=== PATIENT | male | born 1940 | race Caucasian/White ===

== ENCOUNTER 2023-05-20 09:00 | Outpatient (OUT) | payer MEDICARE, OTHER, SELFPAY ==
--- NOTE | 2023-05-20 10:16 | CA_ITS ---
Patient Name Site Name MISSY SALGADO [facility] Account No Medical Record Number Age Sex Date Time [id number] [facility], [place]:[id number] M 05/20/2023 09:17 At the Request Of THI KAT ECHOCARDIOGRAM REPORT PROCEDURE: CA ECHO DOPPLER COMPLETE INDICATIONS: Cardiotoxicity, Multiple myeloma, abnormal EKG COMPARISON: None. DESCRIPTION: COMPLETE ECHOCARDIOGRAM Real-time transthoracic echocardiography with 2D, M-mode, spectral and color flow Doppler performed. QUALITY: Technical quality was good. LEFT VENTRICLE: Normal chamber size. Mild concentric left ventricular hypertrophy. Global left ventricular systolic function is normal. LV EF: Estimated left ventricular ejection fraction is 55-60% DIASTOLIC: Normal diastolic function. ATRIAL SEPTUM: LEFT ATRIUM: Normal chamber size. RIGHT ATRIUM: Normal chamber size. RIGHT VENTRICLE: Normal chamber size. Normal right ventricular systolic function. TRICUSPID VALVE: Normal mobility and thickness. No stenosis with mild regurgitation. No evidence of pulmonary hypertension. RVSP 32 mmHg MITRAL VALVE: Normal mobility and thickness. No evidence of mitral valve stenosis. There is no mitral annular calcification. Trivial mitral regurgitation. AORTIC VALVE: Normal trileaflet appearance. No visible sclerosis. Normal leaflet mobility. No evidence of aortic valve stenosis. No aortic regurgitation. AORTIC ROOT: Normal diameter and appearance. PULMONIC VALVE: Normal thickness and mobility. No stenosis. Trivial regurgitation. PERICARDIUM: No evidence of pericardial effusion. IVC: Collapses with inspirations. Normal size. PLEURA: CONCLUSION: 1. Mild concentric left ventricular hypertrophy. Normal systolic function. LVEF is 55 to 60%. 2. Normal right ventricular size and systolic function. 3. Normal diastolic function. 4. No significant valvular dysfunction. 5. Normal right-sided pressures. Adult Echocardiography Procedure Report Left Ventricle LVEDD (3.7 - 5.6 cm): 4.32 cm LVESD (2.2 - 4.0 cm): 3.08 cm LVIVS thickness (0.6 - 1.2 cm): 1.37 cm LVPW thickness (0.5 - 1.0 cm): 1.23 cm e': 0.09 m/s E - e': 6.46 LVOT Max Gradient: 1.35 mm[Hg] LVOT Area (cm2): 0.58 m/s Peak Velocity (LVOT): 0.58 m/s Mean Velocity (LVOT): 0.45 m/s LVOT Diameter 2.15 cm Left Ventricular Ejection Fraction: 55-60 % Left Atrium LA Volume Index (2D A2C): 17.03 ml/m2 Left Atrium Systolic Dimension: 3.18 cm Mitral Valve MV E to A Ratio: 0.78 Mitral Valve A-Wave Peak Velocity: 0.75 m/s Mitral Valve E-Wave Peak Velocity: 0.58 m/s Right Ventricle RV Internal Diastolic Dimension: 3.18 cm Aorta AO Root Diam: 3.49 cm Ascending Ao Diam: 3.35 cm Aortic Valve AoV Area (Peak Pal): 2.40 cm2, 2.40 cm2 AoV Area (VTI): 2.14 cm2, 2.14 cm2 Peak Velocity(Antegrade Flow): 0.88 m/s Peak Gradient(Antegrade Flow): 3.08 mm[Hg] Mean Velocity(Antegrade Flow): 0.65 m/s Mean Gradient(Antegrade Flow): 1.91 mm[Hg] Velocity Time Integral: 19.64 cm Tricuspid Valve Peak Velocity (Regurgitant Flow): 2.52 m/s, 2.70 m/s, 2.33 m/s Pulmonic Valve Mean Gradient: 2.01 mm[Hg] Mean Velocity: 0.65 m/s Peak Velocity: 1.01 m/s, 1.19 m/s Peak Gradient: 4.10 mm[Hg], 5.68 mm[Hg] Right Atrium Right Atrium Systolic Pressure: 30.44 ml, 30.44 ml Dictated by: Skip Bautista M.D. on 05/22/2023 at 18:49 Approved by: Skip Bautista M.D. on 05/22/2023 at 18:53
== END 2023-05-20 09:01 | disposition home or self-care (01) ==
LOC: CARD 09:00
PROVIDERS: PCP Family Medicine; Visit Provider Physician Assistant Medical
DX: C90.00 Multiple myeloma not having achieved remission (principal); N18.31 Chronic kidney disease, stage 3a; R94.31 Abnormal electrocardiogram [ECG] [EKG]
CPT/HCPCS: 93306; 93356

== ENCOUNTER 2024-04-11 08:06 | Outpatient (OUT) | payer MEDICARE, OTHER, SELFPAY ==
--- OUTSIDE RECORDS SUMMARY | 2024-04-11 08:20 | XMS_ITS | CCD ---
Author Organization [facility] Care Team Providers Care Platform Architect Name Role Phone Alexei Guzmán Primary Care Provider [phone] Unavailable Primary Care Provider UnavailAlexei Arizmendi Primary Care Provider [phone] Unavailable Primary Care Provider Unavailwalt COMER, DR LUIS FELIPE Whitamn Consulting Unavailable DR ALEXEI GUZMÁN Primary Care Unavailable CAMACHO FLORENCE Attending Unavailable CAMACHO FLORENCE Admitting Unavailable CAMACHO FLORENCE Consulting Unavailable Alexei Guzmán MD Primary Care Provider Alexei Guzmán MD Primary Care Provider [phone] ALEXEI GUZMÁN Referring Unavailable ALEXEI GUZMÁN Primary Care Unavailable RAQUEL GUNN Attending Unavailable Alexei Guzmán MD Primary Care Provider Favio Chaidez Unavailable Allie Solares MD Unavailable Favio Chaidez Unavailable Alexei Guzmán MD Primary Care Provider Adair Noonan Primary Care Provider Alexei Guzmán MD Primary Care Provider Allie Solares MD Unavailable Nikos Carmona Unavailable Alexei Guzmán MD Primary Care Provider Nikos Carmona Unavailable Adair Noonan Primary Care Provider Alexei Guzmán MD Primary Care Provider Allie Solares MD Unavailable Nikos Carmona MD Unavailable Favio Chaidez Unavailable Shaista, Adair Primary Care Provider Allie Solares MD Unavailable Shaista, Adair Primary Care Provider KABOUR, AMEER Referring Unavailable SHAISTA, ADAIR Primary Care Unavailable KABOUR, AMEER Referring Unavailable SHAISTA, ADAIR Primary Care Unavailable LONDON JOSEFINA Consulting Unavailable ZLATOPOLSKY, MAXIM Admitting Unavailable MODESTAЮЛИЯ JOY Attending Unavailable SHAISTA, ADAIR Primary Care Unavailable KAYODE FARRIS Consulting Unavailable WONG, LISETTE R Consulting Unavailable MIGDALIA, MOHAMMED S Consulting Unavailable AL-ELVIS, ADNAN R Consulting Unavailable KABOUR, AMEER Referring Unavailable SHAISTA, ADAIR Primary Care Unavailable KABOUR, AMEER Admitting Unavailable KACHEPE, AMEER Attending Unavailable Ko LÓPEZ, Nikos Sutton Unavailable Miles PRINGLE, Kanika Perez Unavailable David Molina MD Unavailable Moraima ALAMO, Thi Vaughan Unavailable MD Otto Do Attending Provider [phone] Shaista, DO Borrero R Primary Care Provider OTTO LORENZANA Attending Unavailable DAVID MOLINA Referring Unavailable OTTO LORENZANA Attending Unavailable ALEXEI GUZMÁN Referring Unavailable Shaista, Adair Primary Care Provider MD Otto Do Attending Provider [phone] Shaista, DO Adair R Primary Care Provider MD Skip Ocasio Attending Provider Alexei Guzmán MD Primary Care Provider [phone] Abiodun Nugent MD Attending Unavaila bunny Nazario PA-C, Trevor Nelson Referring Cole Guzmán MD, Alexei Devries Primary Care Mary Guzmán MD, Alexei Devries Primary Care Unava omid Nugent MD, Abiodun Prieto Attending Unavaila bunny Nazario PA-C, Trevor Nelson Referring Unav ailable Jovanna LÓPEZ, Abiodun Prieto Attending Unavaila bunny Nazario PA-C, Trevor Nelson Referring Unav ailable Arielle LÓPEZ, Alexei Devries Primary Care Unava ilable Negrita LÓPEZ, David Unavailable [phone] Jeff LÓPEZ, Nelli Unavailable Shorty Huston Jr Attending Unavailable Shorty Huston Jr Referring Unavailable Shaista DO, Adair Primary Care Provider GUZMÁN, ALEXEI E Primary Care Unavailable JACQUELINE LINDA E Attending Unavailable ESTHER POTTER Admitting Unavailable MARCI ROSSI Attending Unavailable MARCI ROSSI Referring Unavailable GUZMÁN, ALEXEI E Primary Care Unavailable GUZMÁN, ALEXEI E Primary Care Unavailable LEONIE DARDEN Attending Unavailable ROSIO, PAUL Attending Unavailable AVELAR, PAUL Referring Unavailable GUZMÁN, ALEXEI E Primary Care Unavailable AVELAR, PAUL Attending Unavailable AVELAR, PAUL Referring Unavailable GUZMÁN, ALEXEI E Primary Care Unavailable AVELAR, PAUL Attending Unavailable AVELAR, PAUL Referring Unavailable GUZMÁN, ALEXEI E Primary Care Unavailable ROSIO, PAUL Attending Unavailable AVELAR, PAUL Referring Unavailable GUZMÁN, ALEXEI E Primary Care Unavailable GUZMÁN, ALEXEI E Primary Care Unavailable CHETIGIST JACQUELINE E Attending Unavailable JACQUELINE LINDA Attending Unavailable ALEXEI JACQUELINE E Referring Unavailable GUZMÁN, ALEXEI E Primary Care Unavailable GUZMÁN, ALEXEI E Primary Care Unavailable BEN REN Attending Unavailable KAYODE CHATMAN Consulting Unavailable ABIODUN MORRISON Admitting Unavailable CARDIOLOGY, [facility] PH[facility]IAN Consulting Unavailable MIGDALIA, LUIS ENRIQUE Consulting Unavailable KOKO, KAYLEEN F Consulting Unavailable GUZMÁN, ALEXEI E Referring Unavailable GUZMÁN, ALEXEI E Primary Care Unavailable Shaista, DO Adair R Primary Care Provider MD Luis Ramon Admit Provider MD Luis Ramon Attending Provider [phone] PINO Drake Other Provider Unavailable PINO Glass Other Provider Unavailable PINO Mondragon Other Provider Unavailable PINO Whaley Other Provider Unavailable PINO Catherine Other Provider Unavailable MD Maximiliano Rhodes Other Provider DO Abebe Hoang Other Provider MD David Celeste Other Provider DO [place] Other Provider MD Rodolfo Galeano Other Provider MD Anais Zurita Other Provider MD Candido Estevez Other Provider Unavailable ORIANA Guerrero Other Provider MD Melani Chu Other Provider [phone] MD Sanjiv Galo Other Provider MD Robert Branes Other Provider MD Amy Boogie Other Provider DO Elliot Purvis Other Provider [phone] MD Ethel Malin Other Provider MD Bobby Michael Other Provider MERRY Vazquez-Lexis Keen Other Provider ORIANA Lux M Other Provider Unavailable MD Arcenio Nguyen Other Provider MD Mynor Hector Other Provider MD Geovany Stockton Other Provider MD Funmilayo Fernando Other Provider Unavailable MD Enmanuel Bhatia Other Provider DO Maggi Blankenship Other Provider DO Mata Millan Other Provider ORIANA Ardon Other Provider DO Ernesto Echols Other Provider [phone] MD George Rossi Other Provider ORIANA Massey Other Provider ORIANA Mckinney Other Provider [phone] MD Clementina Ch Other Provider MD William Hough Other Provider WrightDO Murray T Other Provider DO Jade Chin Other Provider MD Jose Stockton Other Provider MD Gold Brannon Other Provider ORIANA Alberts Other Provider MD David Rodriguez Other Provider MD Vj Nichols Other Provider PINO Malcolm Other Provider Unavailable Otto Do Admitting Unavailable Otto Do Attending Unavailable Shaista, Adair Burnett Primary Care Unavailable Skip Ocasio Admitting Unavai labagus Ocasio, Skip Hartley Attending Unavai lable Shaista, Adair R Primary Care Unavailable Shaista, Adair R Primary Care Unavailable Luis Raomn Attending Unavailable Luis Ramon Admitting Unavailable Luis Ramon Admitting Unavailable Luis Ramon Attending Unavailable Shaista, Adair R Primary Care Unavailable Suzan Drake Consulting Unavailable Laura Glass Consulting Unavailable Densbenny, Sydney Consulting Unavailable Katey Whaley Consulting Unavailable Carolynn Catherine Consulting Unavailable Maximiliano Rhodes Consulting Unavailable Abebe Hoang Consulting Unavailable Booker, David Consulting Unavailable [place] Consulting Unavailabl edwin Waleska, Rodolfo Consulting Unavailable Semaskiene, Anais Consulting Unavailable Herb, Candido Consulting Unavailable Jessica Guerrero Consulting UnavailMelani Salcedo Consulting Unavailable Sanjiv Galo Consulting Unavailable Robert Barnes Consulting Unavailable Amy Boogie Consulting Unavailable Elliot Purvis Consulting Unavailable Ethel Malin Consulting Unavailable Bobby Michael Consulting Unavailable Kaur Vazquez Consulting Unavailable Sherif Lux Consulting Unavailable Doamekpor, Arcenio E Consulting Unavailab le Krunal, Mynor Consulting Unavailable Stockton, Geovany Consulting Unavailable Almoselli, Khaled Consulting Unavailable Jannette, Enmanuel Consulting Unavailable Maggi Blankenship Consulting Unavailable Mata Millan Consulting Unavailable ObMilagros ellis Consulting Unavailable Ernesto Echols Consulting Unavailable DaromarRoberto Carlosayjessica Vaughan Consulting Unavailable April Massey Consulting Unavailable Vikki Mckinney Consulting Unavailable Clementina Ch Consulting Unavailable William Hough Consulting Unavailable Trevor Wright Consulting Unavailable Jade Chin Consulting Unavailable Quinn Stocktonit P Consulting Unavailable Gold Brannon Consulting Unava ilable Borisonori, Britany Consulting Unavailable David Rodriguez Consulting Unavailable Vj Nichols Consulting Unavailable Jeana Malcolm Consulting Unavailable Ana GOLDBERG Attending Unavailable GUZMÁN, ALEXEI E Primary Care Unavailable GUZMÁN, ALEXEI E Primary Care Unavailable KLALLIE CAMPOS Referring Unavailab le KLBETH, ALLIE AUGUSTIN Referring Unavailab le GUZMÁN, ALEXEI E Primary Care Unavailable KARAMLOU, DAVID Attending Unavailable KLAFTER, ALLIE KERWIN Referring Unavailab le GUZMÁN, ALEXEI E Primary Care Unavailable Ana GOLDBERG Attending Unavailable GUZMÁN, ALEXEI E Primary Care Unavailable Ana GOLDBERG Attending Unavailable GUZMÁN, ALEXEI E Primary Care Unavailable GUZMÁN, ALEXEI E Primary Care Unavailable KLAFTER, ALLIE KERWIN Referring Unavailab le GUZMÁN, ALEXEI E Primary Care Unavailable KARAMLOU, DAVID Attending Unavailable KLAFTER, ALLIE KERWIN Referring Unavailab le GUZMÁN, ALEXEI E Primary Care Unavailable KARAMLOU, DAVID Referring Unavailable GUZMÁN, ALEXEI E Primary Care Unavailable KARAMLOU, DAVID Referring Unavailable KARAMLOU, DAVID Attending Unavailable GUZMÁN, ALEXEI E Primary Care Unavailable KARAMLOU, DAVID Referring Unavailable ALLIE SOLARES Referring Unavailab CANDIS Quinteros Attending Unavailable GUZMÁN, ALEXEI E Primary Care Unavailable KLAFTER, ALLIE KERWIN Referring Unavailab le GUZMÁN, ALEXEI E Primary Care Unavailable KLAFTER, ALLIE KERWIN Referring Unavailab THI Park Attending Unavailable GUZMÁN, ALEXEI E Primary Care Unavailable THI VALERA Attending Unavailable GUZMÁN, ALEXEI E Primary Care Unavailable KARAMLOU, DAVID Referring Unavailable GUZMÁN, ALEXEI E Primary Care Unavailable KARAMLOU, DAVID Referring Unavailable GUZMÁN, ALEXEI E Primary Care Unavailable KARAMLOU, DAVID Referring Unavailable KARAMLOU, DAVID Attending Unavailable GUZMÁN, ALEXEI E Primary Care Unavailable KARAMLOU, DAVID Referring Unavailable GUZMÁN, ALEXEI E Primary Care Unavailable GUZMÁN, ALEXEI E Primary Care Unavailable KLAFTER, ALLIE BRANNONIN Referring Unavailab le GUZMÁN, ALEXEI E Primary Care Unavailable KARAMLOU, DAVID Attending Unavailable KLAFTER, ALLIE AUGUSTIN Referring Unavailab le KLAFTER, ALLIE BRANNONIN Referring Unavailab le GUZMÁN, ALEXEI E Primary Care Unavailable KLAFTER, ALLIE BRANNONIN Referring Unavailab le GUZMÁN, ALEXEI E Primary Care Unavailable KLAFTER, ALLIE BRANNONIN Referring Unavailab le GUZMÁN, ALEXEI E Primary Care Unavailable GUZMÁN, ALEXEI E Primary Care Unavailable KARAMLOU, DAVID Referring Unavailable KLAFTER, ALLIE BRANNONIN Referring Unavailab le GUZMÁN, ALEXEI E Primary Care Unavailable KLAFTER, ALLIE BRANNONIN Referring Unavailab le GUZMÁN, ALEXEI E Primary Care Unavailable KLAFTER, ALLIE AUGUSTIN Referring Unavailab le GUZMÁN, ALEXEI E Primary Care Unavailable KLAFTER, ALLIE BRANNONIN Referring Unavailab le GUZMÁN, ALEXEI E Primary Care Unavailable GUZMÁN, ALEXEI E Primary Care Unavailable KLAFTER, ALLIE AUGUSTIN Referring Unavailab le KLAFTER, ALLIE BRANNONIN Referring Unavailab le GUZMÁN, ALEXEI E Primary Care Unavailable KLAFTER, ALLIE BRANNONIN Referring Unavailab le GUZMÁN, ALEXEI E Primary Care Unavailable KLAFTER, ALLIE BRANNONIN Referring Unavailab le THI VALERA Attending Unavailable GUZMÁN, ALEXEI E Primary Care Unavailable KLAFTER, ALLIE AUGUSTIN Referring Unavailab le GUZMÁN, ALEXEI E Primary Care Unavailable KLAFTER, ALLIE BRANNONIN Referring Unavailab le KARAMLOU, DAVID Attending Unavailable GUZMÁN, ALEXEI E Primary Care Unavailable GUZMÁN, ALEXEI E Primary Care Unavailable KARAMLOU, DAVID Referring Unavailable KARAMLOU, DAVID Attending Unavailable GUZMÁN, ALEXEI E Primary Care Unavailable KARAMLOU, DAVID Referring Unavailable GUZMÁN, ALEXEI E Primary Care Unavailable ABHYANKARNIURKAEK Attending Unavailable KARAMLOU, DAVID Referring Unavailable GUZMÁN, ALEXEI E Primary Care Unavailable KARAMLOU, DAVID Referring Unavailable GUZMÁN, ALEXEI E Primary Care Unavailable ABHYANKARNELLI Attending Unavailable KARAMLOU, DAVID Referring Unavailable THI VALERA Attending Unavailable GUZMÁN, ALEXEI E Primary Care Unavailable KLAFTER, ALLIE KERWIN Referring Unavailab le GUZMÁN, ALEXEI E Primary Care Unavailable KARAMLOU, DAVID Referring Unavailable KLAFTER, ALLIE AUGUSTIN Referring Unavailab le GUZMÁN, ALEXIE E Primary Care Unavailable KLAFTER, ALLIE AUGUSTIN Referring Unavailab le THI VALERA Attending Unavailable GUZMÁN, ALEXEI E Primary Care Unavailable KLAFTER, ALLIE AUGUSTIN Referring Unavailab le GUZMÁN, ALEXEI E Primary Care Unavailable Ana GOLDBERG Attending Unavailable GUZMÁN, ALEXEI E Primary Care Unavailable UGZMÁN, ALEXEI E Primary Care Unavailable KLAFTER, ALLIE AUGUSTIN Referring Unavailab le GUZMÁN, ALEXEI E Primary Care Unavailable KLAFTER, ALLIE AUGUSTIN Referring Unavailab le KARAMLOU, DAVID Attending Unavailable GUZMÁN, ALEXEI E Primary Care Unavailable KLAFTER, ALLIE KERWIN Referring Unavailab le GUMZÁN, ALEXEI E Primary Care Unavailable KARAMLOU, DAVID Referring Unavailable GUZMÁN, ALEXEI E Primary Care Unavailable KARAMLOU, DAVID Referring Unavailable KLAFTER, ALLIE AUGUSTIN Referring Unavailab le GUZMÁN, ALEXEI E Primary Care Unavailable KLAFTER, ALLIE AUGUSTIN Referring Unavailab le KARAMLOU, DAVID Attending Unavailable GUZMÁN, ALEXEI E Primary Care Unavailable GUZMÁN, ALEXEI E Primary Care Unavailable KLAFTER, ALLIE AUGUSTIN Referring Unavailab le KLAFTER, ALLIE AUGUSTIN Referring Unavailab le GUZMÁN, ALEXEI E Primary Care Unavailable GUZMÁN, ALEXEI E Primary Care Unavailable KLAFTER, ALLIE AUGUSTIN Referring Unavailab le THI VALERA Attending Unavailable GUZMÁN, ALEXEI E Primary Care Unavailable KLAFTER, ALLIE AUGUSTIN Referring Unavailab le KLAFTER, ALLIE AUGUSTIN Referring Unavailab le GUZMÁN, ALEXEI E Primary Care Unavailable KLAFTER, ALLIE AUGUSTIN Referring Unavailab THI Park Attending Unavailable GUZMÁN, ALEXEI E Primary Care Unavailable GUZMÁN, ALEXEI E Primary Care Unavailable KLAFTER, ALLIE AUGUSTIN Referring Unavailab le GUZMÁN, ALEXEI E Primary Care Unavailable KLAFTER, ALLIE AUGUSTIN Referring Unavailab le KARAMLOU, DAVID Attending Unavailable GUZMÁN, ALEXEI E Primary Care Unavailable KARAMLOU, DAVID Referring Unavailable Ana GOLDBERG Attending Unavailable GUZMÁN, ALEXEI E Primary Care Unavailable KLAFTER, ALLIE AUGUSTIN Referring Unavailab le GUZMÁN, ALEXEI E Primary Care Unavailable KLAFTER, ALLIE AUGUSTIN Referring Unavailab le KARAMLOU, DAVID Attending Unavailable GUZMÁN, ALEXEI E Primary Care Unavailable ADAIR NOONAN Primary Care Unavailable LEVY THOMAS Referring Unavailable ADAIR NOONAN Primary Care Unavailable LEVY THOMAS Referring Unavailable ADAIR NOONAN Primary Care Unavailable LEVY THOMAS Referring Unavailable LEVY THOMAS Referring Unavailable ADAIR NOONAN Primary Care Unavailable LEVY THOMAS Referring Unavailable ADAIR NOONAN Primary Care Unavailable Allergies Allergy Classification Reported Allergen(s) Allergy Type Date of Onset Reaction(s) Facility Penicillins (antibiotic) (14 sources) Amoxicillin Drug Allergy 1 Other (See Comments), Other: See Comments [facility] (20 sources) Amoxicillin; Translations: [AMOXICILLIN] Drug Allergy 1 Other (See Comments), Other: See Comments [facility] (16 sources) Hmg-Coa Reductase Inhibitors (Statins) Propensity to adverse reactions to drug 1 [facility] (12 sources) HMG-CoA reductase inhibitor; Translations: [TCXSLQI-IQE-ZZ A REDUCTASE INHIBITORS] Drug Allergy 1 Other: See Comments [facility] (20 sources) HMG-CoA reductase inhibitor Drug Allergy 1 Other: See Comments [facility] (8 sources) Ogyfxoo-JUA-HbU Reductase Inhibitor; Translations: [Nhrjzkr-PPW-Yb A Reductase Inhibitor] Propensity to adverse reactions 4 [facility] Medications Current Medications Medication Drug Class(es) Dates Sig (Normalized) Sig (Original) acetaminophen 500 mg oral tablet (20 sources) Start: 03-27-2024 take 500 mg by mouth three times daily Acetaminophen Active 500 MG PO Three times daily 0 March 27, 2024 12:00am Start: 03-20-2022 take 650 mg by mouth every four hours as needed, then take 4000 mg by mouth every twenty-four hours as needed 650 mg, Oral, EVERY 4 HOURS PRN, Starting on Sat03/20/22 at 1614, Until Discontinued, Pain Mild (1-3), Fever, Fever >100.5 F (38 C) Maximum dose of acetaminophen is 4000 mg from all sources in 24 hours. Recovery(Cath) Start: 01-24-2022 acetaminophen (TYLENOL) tablet 650 mg Start: 04-25-2021 take 650 mg by mouth every four hours as needed for pain, then take 4000 mg by mouth every twenty-four hours as needed for pain 650 mg, Oral, EVERY 4 HOURS PRN, Pain Mild (1-3), Fever, Fever >100.5 F (38 C), Starting on Sat04/25/21 at 1231 Maximum dose of acetaminophen is 4000 mg from all sources in 24 hours. Recovery(Cath) Start: 09-20-2020 End: 09-20-2020 acetaminophen (TYLENOL) tabl et 650 mg Start: 05-23-2020 take 650 mg by mouth every four hours as needed for pain, then take 4000 mg by mouth every twenty-four hours as needed for pain 650 mg, Oral, EVERY 4 HOURS PRN, Pain Mild (1-3), Fever, Fever >100.5 F (38 C), Starting 05/23/20 at 1119 Maximum dose of acetaminophen is 4000 mg from all sources in 24 hours. Recovery(Cath) Start: 04-21-2019 End: 04-21-2019 acetaminophen (TYLENOL) tabl et 650 mg End: 06-05-2023 acetaminophen (TYLENOL ORAL) Take by mouth. 06/05/2023 Discontinued Acetaminophen (T YLENOL ARTHRITIS PAIN PO) Take by mouth Active acetaminophen (T YLENOL ARTHRITIS ORAL) Take by mouth every morning. Active acetaminophen (T YLENOL ARTHRITIS ORAL) Take by mouth every morning. 0 Active End: 06-05-2023 acetaminophen (TYLENOL ORAL) Take by mouth. 0 06/05/2023 Discontinued Acetaminophen (T YLENOL ARTHRITIS PAIN PO) Take by mouth 0 Active acetaminophen (T YLENOL ORAL) Take by mouth. 0 Active Comment on above: Take by mouth. Take by mouth every morning. acetaminophen 500 mg / diphenhydrAMINE hydrochloride 25 mg oral tablet (20 sources) Histamine-1 Receptor Antagonist Start: take 1 tablet by mouth once daily at bedtime Diphenhydramine-A cetaminophen (Tylenol Pm Extra Strength) 25-500 mg tablet Active 1 TAB PO Daily at bedtime March 16, 2024 12:00am End: 06-05-2023 acetaminophen/diphenhydramin e (TYLENOL PM ORAL) Take by mouth daily at bedtime. 06/05/2023 Discontinued diphenhydrAMINE- APAP, sleep, (TYLENOL PM EXTRA STRENGTH) 50-1000 MG/30ML LIQD Take by mouth Active acetaminophen/di phenhydramine (TYLENOL PM ORAL) Take by mouth daily at bedtime. Active End: 06-05-2023 acetaminophen/diphenhydramin e (TYLENOL PM ORAL) Take by mouth daily at bedtime. 0 06/05/2023 Discontinued acetaminophen/di phenhydramine (TYLENOL PM ORAL) Take by mouth daily at bedtime. 0 Active Comment on above: Take by mouth daily at bedtime. acyclovir 400 mg oral tablet (20 sources) Herpesvirus Nucleoside Analog DNA Polymerase Inhibitor, Herpes Simplex Virus Nucleoside Analog DNA Polymerase Inhibitor, Herpes Zoster Virus Nucleoside Analog DNA Polymerase Inhibitor Start: 11-17-2018 End: 07-23-2023 take 1 tablet by mouth once daily acyclovir (ZOVIRAX) 400 mg tablet Take 1 tablet by mouth once daily. 90 tablet 07/23/2023 Active Start: 11-17-2018 End: 01-28-2022 take 1 tablet by mouth twice daily acyclovir (ZOVIRAX) 400 MG tablet Take 1 tablet by mouth 2 times daily 60 tablet 5 12/20/2020 01/28/2022 Discontinued (Stop Taking at Discharge) Comment on above: Take 400 mg by mouth . Take 1 tablet by estela th once daily. Take 1 tablet by estela th once daily Ascorbic Acid (8 sources) Vitamin C take 3 doses by mouth once daily Ascorbic Acid (VITAMIN C GUMMIES PO) Take 3 each by mouth daily 0 Active aspirin 81 mg delayed release oral tablet (20 sources) Platelet Aggregation Inhibitor, Nonsteroidal Anti-inflammatory Drug Start: 07-09-2023 take 81 mg by mouth once daily Aspirin Active 81 MG PO Daily July 09, 2023 1:00am Start: 04-28-2021 take 1 tablet by estela th once daily aspirin 81 MG chewable tablet Take 1 tablet by mouth daily 30 tablet 3 04/28/2021 Active Start: 04-25-2021 End: 04-25-2021 take 81 mg by mouth once daily 81 mg, Oral, DAILY, Fir st dose on Sat04/26/21 at 0900, Recovery(Cath) Start: 04-25-2021 End: 04-25-2021 aspirin chewable tablet 324 mg Start: 05-24-2020 take 81 mg by mouth once daily 81 mg, Oral, DAILY, First dose on Sat05/24/20 at 0900, Recovery(Cath) Start: 05-23-2020 End: 05-23-2020 aspirin chewable tablet 324 mg Start: 02-23-2019 End: 09-27-2021 aspirin, enteric coated (ASP IRIN, ENTERIC COATED) 81 mg EC tablet Take 81 mg by mouth. 0 02/23/2019 09/27/2021 Discontinued (Discontinued by another Health Care Provider) End: 09-09-2020 aspirin 81 mg cap Take by [facility]. Active aspirin 81 MG ta blet Take 325 mg by mouth 0 Active Comment on above: Take 81 mg by mouth. Take by mouth. B Kjkfuhx-Huulqf-AM (B-COMPL EX PO) (7 sources) B Complex-Biotin -FA (B-COMPLEX PO) Take by mouth daily Active B Complex-Biotin -FA (B-COMPLEX PO) Take by mouth daily 0 Active B Complex-Folic Acid (B COMPLEX-VITAMIN B12 PO) (20 sources) B Complex-Folic Acid (B COMPLEX-VITAMIN B12 PO) Take 1 tablet by mouth 0 Active belladonna alkaloids 16.2 mg / opium 60 mg rectal suppository (2 sources) Start: 01-24-2022 End: 01-24-2022 opium-belladonna (B&O SUPPRETTES) 16.2-60 MG suppository 60 mg bifidobacterium infantis 10. 5 mg chewable tablet (20 sources) Start: 03-16-2024 Bifidobacteriu m Infantis (Align) 10.5 mg (10 million cell) tablet,chewable Active 10.5 MG PO Daily March 16, 2024 12:00am Bifidobacterium infantis (ALIGN ORAL) Take by mouth. Active Bifidobacterium infantis (ALIGN ORAL) Take by mouth. 0 Active Comment on above: Take by mouth. bortezomib (5 sources) Proteasome Inhibitor Start: 03-16-2024 bortezomi b Active March 16, 2024 12:00am 3 weeks on 1 week off inject 1.3 mg intravenously once bortezomib (VELCADE) 3.5 MG chemo injection Infuse 1.3 mg/m2 intravenously once Active calcium chloride 0.0014 meq/ ml / potassium chloride 0.004 meq/ml / sodium chloride 0.103 meq/ml / sodium lactate 0.028 meq/ml injectable solution (4 sources) Start: 09-20-2020 lactated ringe rs infusion Start: 04-21-2019 lactated ringe rs infusion carbidopa 25 mg / levodopa 100 mg oral tablet (3 sources) Aromatic Amino Acid Decarboxylation Inhibitor, Aromatic Amino Acid Start: 03-27-2024 take 1 tablet by mouth twice daily Carbidopa-Levodopa (Sinemet) 25-100 mg Tablet Active 1 TAB PO Twice daily 60 30 March 27, 2024 12:00am ciprofloxacin 500 mg oral tablet (3 sources) Quinolone Antimicrobial Start: 01-28-2022 End: 01-30-2022 take 1 tablet by mouth in the morning ciprofloxacin (CIPRO) 500 MG tablet Take 1 tablet by mouth in the morning and 1 tablet before bedtime. Do all this for 2 days. 4 tablet 0 01/28/2022 01/30/2022 Active Start: 09-20-2020 End: 09-20-2020 ciprofloxacin (CIPRO) IVPB 4 00 mg Start: 04-21-2019 End: 04-21-2019 ciprofloxacin (CIPRO) IVPB 4 00 mg Msaguuhdzjg-Plpzmeluhwhbn-tq hj (DARZALEX FASPRO SC) (7 sources) Daratumumab-Hyal uronidase-fihj (DARZALEX FASPRO SC) Inject into the skin every 30 days Active Daratumumab-Hyal uronidase-fihj (DARZALEX FASPRO SC) Inject into the skin every 30 days 0 Active dexamethasone 4 mg oral tablet (20 sources) Corticosteroid Start: 03-16-2024 take 4 mg by mouth every week Dexamethasone Active 4 MG PO .weekly March 16, 2024 12:00am Start: 11-26-2023 take 2 tablets by mo ut every week dexAMETHasone (DECADRON) 4 mg tablet Take 2 tablets by mouth one time a week. 12 tablet 2 11/26/2023 Active Start: 07-09-2023 End: 01-07-2024 Dexamethasone Discontinued 4 MG PO As Directed July 09, 2023 1:00am January 07, 2024 9:00am Start: 07-09-2023 End: 03-16-2024 Dexamethasone Discontinued 4 MG PO .every 3 weeks September 24, 2023 12:00am March 16, 2024 5:58pm Start: 07-09-2023 End: 01-07-2024 take 1 tablet by mouth once daily at breakfast dexAMETHasone (DECADRON) 4 mg tablet Take 4 mg by mouth daily with breakfast. 0 07/09/2023 11/26/2023 Discontinued Start: 06-05-2023 End: 09-03-2023 dexAMETHasone (DECADRON) 4 m g tablet Take 3 tablets by mouth every 4 weeks. 9 tablet 0 06/05/2023 09/03/2023 Active Start: 05-14-2023 End: 08-21-2023 take 3 tablets by mouth every week dexAMETHasone (DECADRON) 4 mg tablet Take 3 tablets by mouth one time a week. Along with the Pomalyst 36 tablet 0 05/14/2023 06/05/2023 Discontinued Start: 03-20-2022 Dexamethasone Active 4 MG PO As Directed July 09, 2023 1:00am Start: 05-13-2020 End: 12-26-2021 take 5 tablets by mouth every week dexAMETHasone (DECADRON) 4 mg tablet Take 5 tablets by mouth one time a week. 60 tablet 2 09/27/2021 11/28/2021 Discontinued Start: 05-09-2020 End: 05-25-2020 dexamethasone (DECADRON) 4 M G tablet Take 20 mg by mouth every 7 days 0 05/13/2020 Active Start: 03-18-2019 take 5 tablets by mo uth every week at mealtime dexamethasone (DECADRON) 4 MG tablet Take 5 tablets (20 mg) by mouth with food once weekly on Fridays 20 tablet 5 03/18/2019 Active Start: 11-25-2018 take 5 tablets by mo uth every week at mealtime dexamethasone (DECADRON) 4 MG tablet Take 5 tablets (20 mg) by mouth with food once weekly 20 tablet 5 11/25/2018 Active End: 01-28-2022 DEXAMETHASONE PO Take by estela th 5 tabs on Saturday 0 01/28/2022 Discontinued (Stop Taking at Discharge) DEXAMETHASONE PO Take by mouth 5 tabs on Saturday 0 Suspended DEXAMETHASONE PO Take by mouth 5 tabs on Saturday 0 Active Comment on above: Take 5 tablets by mo uth one time a week. Take 20 mg by mouth. Take 3 tablets by mo uth one time a week. Along with the Pomalyst Take 3 tablets by mo uth every 4 weeks. Take 3 tablets by mo uth one time a week. diphenhydrAMINE hydrochloride 2.5 mg/ml oral solution (20 sources) Histamine-1 Receptor Antagonist diphenhydrAMINE (BENADRYL) 12.5 MG/5ML elixir Take by mouth 4 times daily as needed for Allergies 0 Active 500 ml DOPamine hydrochloride 1.6 mg/ml injection (1 source) Catecholamine Start: 04-25-2021 DOPamine (INTROPIN) 400 mg in dextrose 5 % 250 mL infusion 2 ml fentaNYL 0.05 mg/ml injection (1 source) Opioid Agonist Start: 03-20-2022 fentaNYL (SUBLIMAZE) injection 25 mcg furosemide 20 mg oral tablet (20 sources) Loop Diuretic Start: 03-16-2024 Furosemide Active 20 MG PO MOWEFR March 16, 2024 12:00am Start: 08-21-2023 End: 03-16-2024 take 1 tablet by mouth once daily furosemide (LASIX) 40 mg tablet Take 1 tablet by mouth once daily. 90 tablet 08/21/2023 Active Start: 07-31-2023 End: 08-21-2023 take 1 tablet by mouth once daily furosemide (LASIX) 20 mg tablet Take 1 tablet by mouth once daily for 14 days. 14 tablet 0 07/31/2023 08/21/2023 Discontinued Comment on above: Take 1 tablet by estela th once daily for 14 days. Take 1 tablet by estela th once daily. 1 ml heparin sodium, porcine 5000 unt/ml prefilled syringe (4 sources) Unfractionated Heparin, Anti-coagulant Start: 01-27-2022 heparin (porcine) injection 5,000 Units Start: 05-23-2020 heparin 25,000 units in dextrose 5% 250 mL infusion Start: 05-23-2020 heparin (porci ne) injection 6,900 Units Start: 05-23-2020 heparin (porci ne) injection 3,450 Units hyoscyamine sulfate 0.125 mg sublingual tablet (3 sources) Start: 01-24-2022 End: 02-27-2022 take 1 tablet under the tongue every four hours as needed hyoscyamine (LEVSIN/SL) [address] 1 tablet under the tongue every 4 hours as needed for Cramping (if oxybutynin does not help to control bladder spasms) 30 tablet 0 01/28/2022 02/27/2022 Active ixazomib 2.3 mg oral capsule (20 sources) Proteasome Inhibitor Start: 10-02-2023 End: 03-16-2024 take 1 capsule by mouth every week ixazomib (NINLARO) 2.3 mg capsule Take 1 capsule (2.3 mg) by mouth one time a week. Take at least 1 hour before or 2 hours after eating. Swallow capsule whole. 3 weeks on and 1 week off along with 8 mg of Dexamethasone 3 capsule 12/24/2023 Active Comment on above: Take 1 capsule (2.3 mg) by mouth one time a week. Take at least 1 hour before or 2 hours after eating. Swallow capsule whole. 3 weeks on and 1 week off along with 8 mg of Dexamethasone lactobacillus rhamnosus gg [id number] unt oral capsule (1 source) Start: 01-25-2022 lactobacillus (CULTURELLE) capsule 1 capsule 100 ml magnesium sulfate 10 mg/ml injection (1 source) Start: 01-24-2022 take 1000 mg intravenously every hour as needed 1,000 mg, IntraVENous, at 100 mL/hr, Administer over 1 Hours, PRN, Other, Per IV Magnesium Replacement Protocol, Starting on Sat01/24/22 at 2241 Mg Lab &n bsp; Replace ment Action 1.4-1 .6 &nb sp; 1 gram IVPB x 2 doses &nbsp ; &nbs p; &nb sp; &n bsp; & nbsp; (2 gram Total) 1.0-1 .3 &nb sp; 1 gram IVPB x 4 doses &nbsp ; &nbs p; &nb sp; &n bsp; & nbsp; (4 gram Total) <1.0& nbsp; &nbsp ; CALL PHYSICIAN and &nbsp ; &nbs p; &nb sp; &n bsp; & nbsp; 1 gram IVPB x 4 doses &nbsp ; &nbs p;(4 gram Total) &nbsp ;Infuse at 1 gram/hr Repe at Mag level next AM Protocol not for use in Patients with CrCl<30ml/min&nbs p; 24 hr metoprolol succinate 25 mg extended release oral tablet (20 sources) beta-Adrenergic Maira Start: 07-09-2023 End: 03-27-2024 take 25 mg by mouth once daily Metoprolol Succinate Active 25 MG PO Daily March 27, 2024 9:10am Start: 01-27-2022 End: 01-27-2022 metoprolol tartrate (LOPRESS OR) tablet 12.5 mg Start: 12-12-2021 End: 01-28-2022 take 0.5 tablet by mouth twice daily metoprolol tartrate, short acting, (LOPRESSOR) 25 mg tablet Take 0.5 tablets by mouth twice daily. 90 tablet 12/12/2021 Active Start: 12-12-2021 End: 12-12-2021 take 0.5 tablet by mouth once daily metoprolol tartrate, short acting, (LOPRESSOR) 25 mg tablet Take 0.5 tablets by mouth once daily. 90 tablet 0 12/12/2021 12/12/2021 Discontinued Start: 04-25-2021 take 12.5 mg by mout h twice daily 12.5 mg, Oral, 2 TIMES DAILY, First dose on Sat04/25/21 at 1400 Hold if heart rate less than 60 Recovery(Cath) Start: 06-28-2020 End: 12-12-2021 metoprolol tartrate, short a cting, (LOPRESSOR) 25 mg tablet Take 12.5 mg by mouth. 06/28/2020 12/12/2021 Discontinued End: 05-25-2020 take 0.5 tablet by mouth once daily metoprolol (LOPRESSOR) 25 MG tablet Indications: patient is taking 1/2 tab daily Take 25 mg by mouth 2 times daily Indications: patient is taking 1/2 tab daily 0 05/25/2020 Discontinued (Stop Taking at Discharge) take 1 tablet by estela th twice daily metoprolol (LOPRESSOR) 25 MG tablet Take 25 mg by mouth 2 times daily 0 Active Comment on above: Take 12.5 mg by mout h. Take 0.5 tablets by mouth once daily. Take 0.5 tablets by mouth twice daily. midodrine hydrochloride 10 mg oral tablet (8 sources) alpha-Adrenergic Agonist Start: 01-28-2022 End: 02-27-2022 midodrine (PROAMATINE) 10 mg tablet Take 10 mg by mouth. 0 01/28/2022 02/27/2022 Active Start: 01-26-2022 midodrine (PRO AMATINE) tablet 10 mg Start: 01-26-2022 End: 01-26-2022 midodrine (PROAMATINE) table t 5 mg Comment on above: Take 10 mg by mouth. Multiple Vitamins-Minerals (PRESERVISION AREDS 2+MULTI VIT PO) (7 sources) Multiple Vitamin s-Minerals (PRESERVISION AREDS 2+MULTI VIT PO) Take by mouth in the morning and at bedtime Active Multiple Vitamin s-Minerals (PRESERVISION AREDS 2+MULTI VIT PO) Take by mouth in the morning and at bedtime 0 Active Multiple Vitamins-Minerals (PRESERVISION AREDS PO) (4 sources) take 2 tablets by mouth once daily Multiple Vitamins-Minerals (PRESERVISION AREDS PO) Take 2 tablets by mouth daily 0 Suspended take 2 tablets by mouth once naya ly Multiple Vitamins-Minerals (PRESERVISION AREDS PO) Take 2 tablets by mouth daily 0 Active Multivitamin preparation (6 sources) Start: 09-24-2023 take 1 tablet by mouth once daily Multivitamin Active 1 TAB PO Daily September 24, 2023 12:00am NONFORMULARY (20 sources) NONFORMULARY 2 times daily Eye vitamin 0 Active Gary-3 Fatty Acids (FISH OIL EXTRA STRENGTH PO) (19 sources) Gary-3 Fatty Ac ids (FISH OIL EXTRA STRENGTH PO) Take by mouth daily. 0 Active 2 ml ondansetron 2 mg/ml injection (3 sources) Serotonin-3 Receptor Antagonist Start: 04-25-2021 End: 04-25-2021 4 mg, IntraVENous, EVERY 6 HOURS PRN, Nausea, Vomiting, Starting on Sat04/25/21 at 1231 Avoid if QT is more than 500 Recovery(Cath) Start: 05-23-2020 4 mg, Intraven ous, EVERY 6 HOURS PRN, Nausea, Vomiting, Starting 05/23/20 at 1119 Avoid if QT is more than 500 Recovery(Cath) ondansetron (ZOFRAN-ODT) disintegrating tablet 4 mg (1 source) Start: 01-24-2022 ondansetron (ZOFRAN-ODT) disintegrating tablet 4 mg 24 hr oxybutynin chloride 5 mg extended release oral tablet (11 sources) Cholinergic Muscarinic Antagonist Start: 01-24-2022 take 1 tablet by mouth once daily as needed for muscle spasms oxybutynin (DITROPAN-XL) 5 MG extended release tablet Take 1 tablet by mouth daily as needed (bladder spasms, pang discomfort) 30 tablet 3 01/28/2022 Active pantoprazole 40 mg delayed release oral tablet (4 sources) Proton Pump Inhibitor Start: 03-27-2024 take 40 mg by mouth once daily Pantoprazole Active 40 MG PO Daily March 27, 2024 12:00am Start: 01-26-2022 pantoprazole ( PROTONIX) tablet 40 mg piperacillin-tazobactam (ZOSYN) 3,375 mg in dextrose 5 % 50 mL IVPB extended infusion (mini-bag) (1 source) Start: 01-25-2022 End: 01-30-2022 piperacillin-tazobactam (ZOSYN) 3,375 mg in dextrose 5 % 50 mL IVPB extended infusion (mini-bag) potassium chloride 20 meq extended release oral tablet (20 sources) Start: 09-24-2023 take 20 mEq by mouth once daily potassium chloride 20 mEq TbER Take 20 mEq by mouth once daily. 09/24/2023 Active Start: 09-24-2023 take 20 mEq by mouth twice naya ly Potassium Chloride Active 20 MEQ PO Twice daily September 24, 2023 12:00am Start: 08-21-2023 End: 11-19-2023 take 1 tablet by mouth once daily potassium chloride ER (KLOR-CON) 20 mEq tablet Take 1 tablet by mouth once daily. 30 tablet 2 08/21/2023 11/19/2023 Active Start: 07-31-2023 End: 08-14-2023 take 1 tablet by mouth once daily potassium chloride (K-TAB) 10 mEq tablet Take 1 tablet by mouth once daily for 14 days. 14 tablet 0 07/31/2023 08/14/2023 Active Start: 01-24-2022 potassium chlo ride (KLOR-CON M) extended release tablet 40 mEq Comment on above: Take 1 tablet by estela th once daily for 14 days. Take 1 tablet by estela th once daily. Probiotic Product (ALIGN PO) (20 sources) Probiotic Produc t (ALIGN PO) Take by mouth daily daily Active Probiotic Produc t (ALIGN PO) Take by mouth daily daily 0 Active Probiotic Produc t (ALIGN PO) Take by mouth daily 0 Suspended Probiotic Produc t (ALIGN PO) Take by mouth daily 0 Active rivaroxaban 20 mg oral tablet (20 sources) Factor Xa Inhibitor Start: 03-21-2022 End: 03-21-2022 take 1 tablet by mouth once daily rivaroxaban (XARELTO) 20 MG TABS tablet Take 1 tablet by mouth daily 45 tablet 03/21/2022 Active Start: 03-20-2022 ANTICOAGULANT! Renal dose for NONVALVULAR A.FIB is 15 mg/day for CrCl 15-50 mL/min. 20 mg, Oral, DAILY, First dose on Sat03/20/22 at 1800, Until Discontinued Indication of Use: A Fib/A Flutter ANTICOAGULANT! Doses greater than 15 mg/day must be administered with food. Start: 04-27-2021 rivaroxaban (X ARELTO) tablet 20 mg Start: 10-06-2019 End: 02-20-2022 take 1 tablet by mouth once daily at mealtime rivaroxaban (XARELTO) 20 mg tablet TAKE ONE TABLET BY MOUTH EVERY EVENING, WITH DINNER WITH FOOD DIRECTED BY THE [facility] ([phone].[id number]) 10/06/2019 02/20/2022 Discontinued (Discontinued by another Health Care Provider) Comment on above: TAKE ONE TABLET BY M OUTH EVERY EVENING, WITH DINNER WITH FOOD DIRECTED BY [facility] ([phone].[id number]) Rx Discharge Order Notice (3 sources) Start: 03-27-20 Rx Discharge Order Notice Active 1 EACH MISCELLANE Once 0 March 27, 2024 12:00am tamsulosin hydrochloride 0.4 mg oral capsule (20 sources) alpha-Adrenergic Maira Start: 02-22-20 End: 04-16-20 take 1 capsule by mouth once daily at bedtime tamsulosin (FLOMAX) 0.4 MG capsule TAKE 1 CAPSULE BY MOUTH ONCE DAILY AT BEDTIME 03/12/2023 Active Start: 01-24-2022 take 1 capsule by mo ut in the morning tamsulosin (FLOMAX) 0.4 MG capsule Take 1 capsule by mouth in the morning. 30 capsule 3 01/29/2022 Active Start: 09-23-2020 End: 05-09-2021 take 1 capsule by mouth once daily in the evening tamsulosin (FLOMAX) 0.4 MG capsule Take 1 capsule by mouth every evening 30 capsule 11 09/23/2020 05/09/2021 Discontinued (LIST CLEANUP) Comment on above: Take 1 capsule by mo [facility] daily at bedtime. traMADol hydrochloride 50 mg oral tablet (3 sources) Opioid Agonist Start: 10-30-2022 End: 11-29-2022 take 1 tablet by mouth every six hours as needed for pain traMADol (ULTRAM) 50 mg tablet Indications: Multiple myeloma not having achieved remission (HCC) Take 1 tablet by mouth every 6 hours as needed for pain for up to 30 days. 40 tablet 0 10/30/2022 11/29/2022 Active Comment on above: Take 1 tablet by [facility] every 6 hours as needed for pain for up to 30 days. vit A/vit C/vit E/zinc/copper (PRESERVISION AREDS ORAL) (12 sources) vit A/vit C/vit E/zinc/copper (PRESERVISION AREDS ORAL) Take by mouth two times a day. Active vit A/vit C/vit E/zinc/copper (PRESERVISION AREDS ORAL) Take by mouth two times a day. 0 Active VITAMIN D PO (7 sources) VITAMIN D PO Luis Armando e by mouth every evening Active VITAMIN D PO Luis Armando e by mouth every evening 0 Active Vitamins A,C,A-Iqfc-Cxtoiw (Preservision Areds) 4,296 mcg-226 mg-90 mg capsule (2 sources) Start: 03-31-2024 take 1 capsule by mouth twice daily Vitamins A,C,U-Xiwh-Wcpufs (Preservision Areds) 4,296 mcg-226 mg-90 mg capsule Active 1 CAP PO Twice daily March 31, 2024 12:00am Completed/Discontinued Medications Medication Drug Class(es) Dates Sig (Normalized) Sig (Original) acetaminophen 325 mg / HYDROcodone bitartrate 5 mg oral tablet (7 sources) Opioid Agonist Start: 07-09-2023 End: 09-24-2023 take 1 tablet by mouth every six hours Hydrocodone-Acetami nophen Discontinued 1 TAB PO Q6H 20 5 July 09, 2023 September 24, 2023 1:45pm acetaminophen 325 mg / oxyCODONE hydrochloride 5 mg oral tablet (10 sources) Opioid Agonist Start: 06-05-2023 take 1 tablet by mouth every eight hours as needed for pain oxyCODONE-acetamino phen (PERCOCET) 5-325 mg tablet Indications: Multiple myeloma not having achieved remission (HCC) Take 1 tablet by mouth every 8 hours as needed for pain. 40 tablet 0 06/05/2023 Active Start: 03-03-2021 End: 03-06-2021 take 1-2 tablets by mouth every six hours as needed for pain oxyCODONE-acetaminophen (PERCOCET) 5-325 MG per tablet Indications: Pathological fracture of rib, initial encounter Take 1-2 tablets by mouth every 6 hours as needed for Pain for up to 3 days. WARNING: May cause drowsiness. May impair ability to operate vehicles or machinery. Do not use in combination with alcohol. 6 tablet 0 03/03/2021 03/06/2021 Active Comment on above: Take 1 tablet by estela th every 8 hours as needed for pain. Arreds-2 (6 sources) Start: 09-24-2023 End: 03-16-2024 Arreds-2 Discontinued PO Daily September 24, 2023 12:00am March 16, 2024 5:57pm Start: 09-24-2023 Arreds-2 Activ e PO Daily September 24, 2023 12:00am atorvastatin 80 mg oral tablet (20 sources) HMG-CoA Reductase Inhibitor Start: 04-25-2021 End: 05-09-2021 take 1 tablet by mouth once daily atorvastatin (LIPITOR) 80 MG tablet Take 1 tablet by mouth nightly 30 tablet 3 04/27/2021 05/09/2021 Discontinued (LIST CLEANUP) Start: 06-28-2020 End: 04-24-2022 atorvastatin (LIPITOR) 10 mg tablet Take 10 mg by mouth. 06/28/2020 04/24/2022 Discontinued Start: 05-23-2020 take 80 mg by mouth once daily 80 mg, Oral, NIGHTLY, First dose on Sat05/23/20 at 2100, Recovery(Cath) Comment on above: Take 10 mg by mouth. 1 ml atropine sulfate 0.4 mg/ml injection (1 source) Anticholinergic, Cholinergic Muscarinic Antagonist Start: End: 1 atropine injection 0.4 mg b complex vitamins capsule (5 sources) End: 9 take 1 capsule by mouth once daily b complex vitamins capsule Take 1 capsule by mouth daily 0 03/06/2019 Discontinued (LIST CLEANUP) take 1 capsule by mouth once naya ly b complex vitamins capsule Take 1 capsule by mouth daily 0 Active B-complex with vitamin C (ALLBEE WITH C) tablet (1 source) End: 09-27-2021 take 1 tablet by mouth once daily B-complex with vitamin C (ALLBEE WITH C) tablet Take 1 tablet by mouth once daily. 0 09/27/2021 Discontinued (Discontinued by Patient) Comment on above: Take 1 tablet by [facility] once daily. bifidobacterium animalis [id number] unt / lactobacillus acidophilus [id number] unt oral capsule (20 sources) End: 11-26-2023 take 1 capsule by mouth once daily Lacto.acidophilus-B if.animalis 32 billion cell cap Take 1 capsule by mouth once daily. 11/26/2023 Discontinued (Discontinued by Patient) Comment on above: Take 1 capsule by mo [facility] once daily. bortezomib (VELCADE) 2.75 mg in sodium chloride (PF) 1.1 mL chemo subcutaneous syringe (8 sources) Start: 05-01-2019 End: 05-01-2019 bortezomib (VELCADE) 2.75 mg in sodium chloride (PF) 1.1 mL chemo subcutaneous syringe Start: 04-24-2019 End: 04-24-2019 bortezomib (VELCADE) 2.75 mg in sodium chloride (PF) 1.1 mL chemo subcutaneous syringe Start: 04-17-2019 End: 04-17-2019 bortezomib (VELCADE) 2.75 mg in sodium chloride (PF) 1.1 mL chemo subcutaneous syringe Start: 04-03-2019 End: 04-03-2019 bortezomib (VELCADE) 2.75 mg in sodium chloride (PF) 1.1 mL chemo subcutaneous syringe Start: 03-20-2019 End: 03-20-2019 bortezomib (VELCADE) 2.75 mg in sodium chloride (PF) 1.1 mL chemo subcutaneous syringe Start: 03-06-2019 End: 03-06-2019 bortezomib (VELCADE) 2.75 mg in sodium chloride (PF) 1.1 mL chemo subcutaneous syringe Start: 02-27-2019 End: 02-27-2019 bortezomib (VELCADE) 2.75 mg in sodium chloride (PF) 1.1 mL chemo subcutaneous syringe Start: 02-20-2019 End: 02-20-2019 bortezomib (VELCADE) 2.75 mg in sodium chloride (PF) 1.1 mL chemo subcutaneous syringe Bortezomib (Velcade) 3.5 mg recon soln (6 sources) Start: 09-24-2023 End: 01-07-2024 take 1 dose intravenously once daily Bortezomib (Velcade) 3.5 mg recon soln Discontinued 2.4 MG IV .every 3 weeks September 24, 2023 12:00am January 07, 2024 3:27pm administer dose on days 1, 4, 8, and 11 of 28-day/4-week cycle Start: 09-24-2023 take 1 dose intraven ously once daily Bortezomib (Velcade) 3.5 mg recon soln Active 2.4 MG IV .every 3 weeks September 24, 2023 12:00am administer dose on days 1, 4, 8, and 11 of 28-day/4-week cycle calcium carbonate 500 mg chewable tablet (20 sources) Start: 03-20-2022 take 500 mg by mouth once daily in the evening 500 mg, Oral, EVERY EVENING, First dose on Sat03/20/22 at 1800, Until Discontinued Start: 01-25-2022 take 1 tablet by estela th twice daily Product is calcium carbonate, but it is dosed in elemental calcium. Calcium carbonate 1250 mg = 500 mg elemental calcium = 1 tablet Os-Seth. 500 mg, Oral, 2 TIMES DAILY, First dose on Julieth 01/25/22 at 0900, Until Discontinued take 1 tablet by estela th once daily in the evening calcium carbonate (OSCAL) 500 MG TABS tablet Take 1 tablet by mouth every evening Active take 1 tablet by estela th twice daily calcium carbonate (OSCAL) 500 MG TABS tablet Take 500 mg by mouth 2 times daily 0 Active End: 09-27-2021 calcium carbonate (TUMS) 500 mg chew Take 500 mg by mouth. 0 09/27/2021 Discontinued (Discontinued by Patient) take 1 tablet by estela th twice daily calcium carbonate (OSCAL) 500 MG TABS tablet Take 500 mg by mouth 2 times daily 0 Active Comment on above: Take 500 mg by mouth . Calcium Carbonate / vitamin D3 (20 sources) End: 11-26-2023 calcium carbonate/vitamin D3 (CALCIUM 500 + D ORAL) Take by mouth. 11/26/2023 Discontinued (Discontinued by Patient) End: 11-26-2023 calcium carbonate/vitamin D3 (CALCIUM 500 + D ORAL) Take by mouth. 0 11/26/2023 Discontinued (Discontinued by Patient) calcium carbonat e/vitamin D3 (CALCIUM 500 + D ORAL) Take by mouth. 0 Active Comment on above: Take by mouth. Miguel Angel Seed Oil-Gary 3-6-9 (3 sources) Start: 03-16-2024 End: 03-31-2024 take 1 capsule by mouth once daily Miguel Angel Seed Oil-Gary 3-6-9 Discontinued 1 CAP PO Daily March 16, 2024 12:00am March 31, 2024 9:44am Start: 03-16-2024 take 1 capsule by mo [facility] once daily Miguel Angel Seed Oil-Gary 3-6-9 Active 1 CAP PO Daily March 16, 2024 12:00am cholecalciferol 0.025 mg oral capsule (20 sources) Vitamin D Start: 10-31-2021 End: 11-26-2023 take 1 capsule by mouth once daily Cholecalciferol, Vitamin D3, (VITAMIN D) 25 mcg (1,000 unit) cap Take 1 capsule by mouth once daily. 30 capsule 4 10/31/2021 11/26/2023 Discontinued (Discontinued by Patient) End: 09-27-2021 cholecalciferol (VITAMIN D3) 1,000 unit tab tablet Take 1,000 Units by mouth. 0 09/27/2021 Discontinued (Discontinued by Patient) End: 05-09-2021 Cholecalciferol (VITAMIN D3) 05213 units CAPS Take 5,000 capsules by mouth 2 times daily 0 05/09/2021 Discontinued (LIST CLEANUP) Comment on above: Take 1,000 Units by mouth. Take 1 capsule by mo uth once daily. clopidogrel 75 mg oral tablet (20 sources) [id number] Platelet Inhibitor Start: 04-26-2021 clopidogrel (PLAVIX) tablet 300 mg Start: 05-26-2020 End: 04-24-2022 clopidogrel (PLAVIX) 75 mg t ablet Take 75 mg by mouth. 05/26/2020 04/24/2022 Discontinued (Discontinued by another Health Care Provider) Start: 05-26-2020 take 1 tablet by estela th once daily clopidogrel (PLAVIX) 75 MG tablet Take 1 tablet by mouth daily 30 tablet 3 05/26/2020 Active Start: 05-24-2020 take 75 mg by mouth once daily 75 mg, Oral, DAILY, First dose on Sat05/24/20 at 0900, Recovery(Cath) Comment on above: Take 75 mg by mouth. daratumumab (DARZALEX) chemo injection (5 sources) End: 01-29-20 22 inject 16 mg intravenously once daratumumab (DARZALEX) chemo injection Infuse 16 mg/kg intravenously once 0 01/28/2022 Discontinued (Stop Taking at Discharge) inject 16 mg intravenously once daratumumab (DARZALEX) chemo injection Infuse 16 mg/kg intravenously once 0 Suspended inject 16 mg intravenously once daratumumab (DARZALEX) chemo injection Infuse 16 mg/kg intravenously once 0 Active fish,bora,flax oils-om3,6,9no1 1,200 mg cap (1 source) End: 09-27-2021 take 1 tablet by mouth once daily fish,bora,flax oils-om3,6,9no1 1,200 mg cap Take 1 tablet by mouth once daily. 0 09/27/2021 Discontinued (Discontinued by Patient) Comment on above: Take 1 tablet by estela th once daily. fludeoxyglucose F 18 injection 12.9 millicurie (1 source) Start: 05-17-2021 End: 05-17-2021 fludeoxyglucose F 18 injection 12.9 millicurie gabapentin 300 mg oral capsule (11 sources) Anti-epilepti c Agent Start: 04-24-2022 End: 09-04-2022 take 1 capsule by mouth once daily at bedtime gabapentin (NEURONTIN) 300 mg capsule Take 1 capsule by mouth daily at bedtime for 90 days. 90 capsule 0 04/24/2022 09/04/2022 Discontinued (Discontinued by another Health Care Provider) Comment on above: Take 1 capsule by [facility] daily at bedtime for 90 days. iopamidol (ISOVUE-370) 76 % injection 75 mL (1 source) Start: 03-03-2021 End: 03-03-2021 iopamidol (ISOVUE-370) 76 % injection 75 mL labetalol hydrochloride 5 mg/ml injectable solution (2 sources) beta-Adrenerg ic Maira Start: 03-20-2022 10 mg, IntraVENous, EVERY 30 MIN PRN, 2 doses, Starting on Sat03/20/22 at 1614, Until Discontinued, High Blood Pressure For SBP greater than 150 mmHG Recovery(Cath) Start: 05-23-2020 10 mg, Intrave nous, EVERY 30 MIN PRN, High Blood Pressure, Starting Sat05/23/20 at 1119, For 2 doses For SBP greater than 160 mmHG Hold if heart rate less than 60 Recovery(Cath) lenalidomide 5 mg oral capsule (20 sources) Thalidomide Analog Start: 02-23-2019 End: 09-27-2021 lenalidomide (REVLIMID) 5 mg capsule Take 5 mg by mouth. 0 02/23/2019 09/27/2021 Discontinued (Discontinued by Patient) lenalidomide (RE VLIMID) 5 MG chemo capsule Indications: Pt taking 10mg every other day until he receives the 5mg tabs Take 10 mg by mouth daily Indications: Pt taking 10mg every other day until he receives the 5mg tabs Daily in evening for 21 days , off for 7 days each cycle. 0 Active lenalidomide (RE VLIMID) 10 MG chemo capsule Take 10 mg by mouth daily Daily in evening for 21 days , off for 7 days each cycle. 0 Active Comment on above: Take 5 mg by mouth. meclizine hydrochloride 12.5 mg oral tablet (13 sources) Antiemetic Start: 2 take 25 mg by mouth three times daily as needed 25 mg, Oral, 3 TIMES DAILY PRN, Starting on Sat03/20/22 at 1614, Until Discontinued, Dizziness take 1 tablet by estela th three times daily as needed meclizine (ANTIVERT) 25 MG tablet Take 1 tablet by mouth 3 times daily as needed Active montelukast 10 mg oral tablet (20 sources) Leukotriene Receptor Antagonist End: 04-24-2022 take 1 tablet by mouth once daily at bedtime montelukast (SINGULAIR) 10 mg tablet Take 10 mg by mouth daily at bedtime. 04/24/2022 Discontinued Comment on above: Take 10 mg by mouth daily at bedtime. pine bark/coQ10/vit A/herb 155 (PROCYAN FPAF-GFD-VAF A-HRB#155 ORAL) (20 sources) End: 11-26-2023 pine bark/coQ10/vit A/herb 155 (PROCYAN QRJD-HDH-VCJ A-HRB#155 ORAL) Take by mouth. 0 11/26/2023 Discontinued (Discontinued by Patient) pine bark/coQ10/ vit A/herb 155 (PROCYAN CFNR-AAF-SUV A-HRB#155 ORAL) Take by mouth. 0 Active Comment on above: Take by mouth. polyethylene glycol 3350 [id number] mg powder for oral solution (1 source) Osmotic Laxative Start: 2 17 g, Oral, DAILY PRN, Starting on Sat01/24/22 at 2241, Until Discontinued, Constipation First line therapy for constipation pomalidomide 2 mg oral capsule (20 sources) Thalidomide Analog Start: 4 End: 4 take 1 capsule by mouth once daily pomalidomide (POMALYST) 2 mg capsule Take 1 capsule (2 mg) by mouth once daily for 21 days. 21 capsule 0 07/03/2023 08/21/2023 Discontinued Start: 05-14-2023 End: 07-03-2023 take 1 capsule by mouth once daily pomalidomide (POMALYST) 3 mg capsule Take 1 capsule (3 mg) by mouth once daily for 21 days. 21 capsule 0 05/15/2023 07/03/2023 Discontinued Comment on above: Take 1 capsule (3 mg ) by mouth once daily for 21 days. Take 1 capsule (3 mg ) by mouth once daily. For 21 days, followed by 7 days off Take 1 capsule (2 mg ) by mouth once daily for 21 days. prochlorperazine 10 mg oral tablet (20 sources) Phenothiazine Start: 2022 End: 2023 take 1 tablet by mouth every six hours as needed prochlorperazine (COMPAZINE) 10 mg tablet Take 1 tablet by mouth every 6 hours as needed. 100 tablet 0 05/14/2023 11/26/2023 Discontinued (Discontinued by Patient) Comment on above: Take 1 tablet by estela th every 6 hours as needed. sildenafil 100 mg oral tablet (20 sources) Phosphodiesterase 5 Inhibitor Start: 2021 End: 2023 sildenafil (VIAGRA) 100 mg tablet Take 1 tablet by mouth as needed. 30 tablet 11/14/2021 07/10/2023 Discontinued (Discontinued by another Health Care Provider) Start: 10-12-2019 End: 05-25-2020 VIAGRA 100 MG tablet Indicat ions: Erectile dysfunction, unspecified erectile dysfunction type Take 1 tablet by mouth as needed for Erectile Dysfunction take at least 1/2 hour prior to sexual intercourse. 30 tablet 5 10/12/2019 05/25/2020 Discontinued (Stop Taking at Discharge) Start: 09-23-2017 VIAGRA 100 MG tablet Indications: Erectile dysfunction, unspecified erectile dysfunction type Take 1 tablet by mouth as needed for Erectile Dysfunction take at least 1/2 hour prior to sexual intercourse. 30 tablet 5 09/23/2017 Active Comment on above: Take 1 tablet by estela as needed. 5 ml sodium chloride 9 mg/ml injection (20 sources) Start: 2 take 1 dose intravenously twice daily 5-40 mL, IntraVENous, EVERY 12 HOURS SCHEDULED (2 times per day), First dose on Sat03/20/22 at 2100, Until Discontinued For Line Patency: Peripheral IV = 5 mL; Midline or Central Line = 10 mL/lumen. & nbsp;If following IV push medication, administer flush at same rate as the IV push. Flush volume is determined by type of infusion therapy being given. Fo r non-viscous solutions use: Peripheral IV = 5 mL Midline or Central Line = 10 mL/lumen For viscous solutions (i.e. blood components, parenteral nutrition, contrast media, or after obtaining blood sample) use: Peripheral IV = 10 mL Midline or Central Line = 20 mL/lumen Recovery(Cath) Start: 03-20-2022 IntraVENous, a t 5-250 mL/hr, PRN, if patient receiving piggyback infusions and maintenance fluids are not ordered OR KVO fluids to protect IV site / prevent frequent line interruptions/ long duration, Starting on Sat03/20/22 at 1614 For piggyback infusion, administer at same rate as piggyback for a total of 25 mL. Enter 25 mL into dose field and piggyback rate into rate field of order. If piggyback is infusing at a rate less than 100 mL/hr, enter 25 mL into dose field and 100 mL/hr into rate field of order. For KVO fluids, enter rate of 20 mL/hr or less into rate field of order. Recovery(Cath) Start: 03-20-2022 take 5-40 mL intrave nously once as needed 5-40 mL, IntraVENous, PRN, Starting on Sat03/20/22 at 1614, Until Discontinued, Line Care, After every IV line use For Line Patency: Peripheral IV = 5 mL; Midline or Central Line = 10 mL/lumen. If following IV push medication, administer flush at same rate as the IV push. Flush volume is determined by type of infusion therapy being given. For non-viscous solutions use: Peripheral IV = 5 mL Midline or Central Line = 10 mL/lumen For viscous solutions (i.e. blood components, parenteral nutrition, contrast media, or after obtaining blood sample) use: Peripheral IV = 10 mL Midline or Central Line = 20 mL/lumen Recovery(Cath) Start: 03-20-2022 sodium chlorid e flush 0.9 % injection 5-40 mL Start: 03-20-2022 IntraVENous, a t 75 mL/hr, CONTINUOUS, Starting on Sat03/20/22 at 1630, Recovery(Cath) Start: 01-25-2022 End: 01-25-2022 0.9 % sodium chloride bolus Start: 01-25-2022 End: 01-28-2022 0.9 % sodium chloride infusi on Start: 01-24-2022 IntraVENous, a t 5-250 mL/hr, PRN, if patient receiving piggyback infusions and maintenance fluids are not ordered OR KVO fluids to protect IV site / prevent frequent line interruptions/ long duration, Starting on Sat01/24/22 at 2241 For piggyback infusion, administer at same rate as piggyback for a total of 25 mL. Enter 25 mL into dose field and piggyback rate into rate field of order. If piggyback is infusing at a rate less than 100 mL/hr, enter 25 mL into dose field and 100 mL/hr into rate field of order. For KVO fluids, enter rate of 20 mL/hr or less into rate field of order. Start: 01-24-2022 take 1 dose intraven ously twice daily 5-40 mL, IntraVENous, EVERY 12 HOURS SCHEDULED (2 times per day), First dose on Sat01/24/22 at 2300, Until Discontinued For Line Patency: Peripheral IV = 5 mL; Midline or Central Line = 10 mL/lumen. If following IV push medication, administer flush at same rate as the IV push. Flush volume is determined by type of infusion therapy being given. For non-viscous solutions use: Peripheral IV = 5 mL Midline or Central Line = 10 mL/lumen For viscous solutions (i.e. blood components, parenteral nutrition, contrast media, or after obtaining blood sample) use: Peripheral IV = 10 mL Midline or Central Line = 20 mL/lumen Start: 01-24-2022 take 10 mL intraveno usly once as needed 10 mL, IntraVENous, PRN, Starting on Sat01/24/22 at 2241, Until Discontinued, Line Care, After every IV line use Start: 04-25-2021 take 1 dose intraven ously twice daily 5-40 mL, IntraVENous, EVERY 12 HOURS SCHEDULED (2 times per day), First dose on Sat04/25/21 at 2100 For Line Patency: Peripheral IV = 5 mL; Midline or Central Line = 10 mL/lumen. If following IV push medication, administer flush at same rate as the IV push. Flush volume is determined by type of infusion therapy being given. For non-viscous solutions use: Peripheral IV = 5 mL Midline or Central Line = 10 mL/lumen For viscous solutions (i.e. blood components, parenteral nutrition, contrast media, or after obtaining blood sample) use: Peripheral IV = 10 mL Midline or Central Line = 20 mL/lumen Recovery(Cath) Start: 04-25-2021 take 25 mL intraveno usly every hour as needed 25 mL, IntraVENous, at 100 mL/hr, PRN, If patient receiving piggyback infusions without ordered maintenance IV fluids or with frequent/long duration piggyback infusions, Starting on Sat04/25/21 at 1231 Administer at the same rate as the piggyback being infused. Recovery(Cath) Start: 04-25-2021 5-40 mL, Intra VENous, PRN, Line Care, Starting on Sat04/25/21 at 1231 For Line Patency: Peripheral IV = 5 mL; Midline or Central Line = 10 mL/lumen. If following IV push medication, administer flush at same rate as the IV push. Flush volume is determined by type of infusion therapy being given. For non-viscous solutions use: Peripheral IV = 5 mL Midline or Central Line = 10 mL/lumen For viscous solutions (i.e. blood components, parenteral nutrition, contrast media, or after obtaining blood sample) use: Peripheral IV = 10 mL Midline or Central Line = 20 mL/lumen Recovery(Cath) Start: 04-25-2021 End: 04-25-2021 0.9 % sodium chloride bolus Start: 09-20-2020 sodium chlorid e flush 0.9 % injection 10 mL Start: 09-20-2020 sodium chlorid e flush 0.9 % injection 10 mL Start: 05-23-2020 10 mL, Intrave nous, EVERY 12 HOURS SCHEDULED (2 times per day), First dose on Sat05/23/20 at 1145, Recovery(Cath) Start: 05-23-2020 take 10 mL intravenous route o nce 10 mL, Intravenous, PRN, Line Care, Starting Sat05/23/20 at 1119 After every IV line use Recovery(Cath) Start: 04-21-2019 sodium chlorid e flush 0.9 % injection 10 mL sulfamethoxazole 800 mg / trimethoprim 160 mg oral tablet (9 sources) Dihydrofolate Reductase Inhibitor Antibacterial, Sulfonamide Antimicrobial Start: 09-26-2023 End: 10-03-2023 take 1 tablet by mouth twice daily sulfamethoxazole-trimethoprim (BACTRIM DS) 800-160 mg per tablet Take 1 tablet by mouth two times a day for 7 days. 14 tablet 0 09/26/2023 10/02/2023 Discontinued Start: 11-25-2018 take 1 tablet by estela th once daily sulfamethoxazole-trimethoprim (BACTRIM DS;SEPTRA DS) 800-160 MG per tablet Take 1 tablet by mouth daily 30 tablet 5 11/25/2018 Active Comment on above: Take 1 tablet by estela th two times a day for 7 days. 250 ml tirofiban 0.05 mg/ml injection (1 source) Platelet Aggregation Inhibitor Start: 05-23-2020 End: 05-23-2020 0.075 mcg/kg/min 86.2 kg (7.758 mL/hr, rounded to 7.8 mL/hr), Intravenous, at 7.8 mL/hr, CONTINUOUS, Starting Sat05/23/20 at 1145, For 12 hours, Recovery(Cath) Vitamin B Complex (20 sources) End: 11-26-2023 vitamin B complex (B COMPLEX 1 ORAL) Take by mouth. 0 11/26/2023 Discontinued (Discontinued by Patient) vitamin B comple x (B COMPLEX 1 ORAL) Take by mouth. 0 Active Comment on above: Take by mouth. Vitamin B Complex (Vitamins B Complex) capsule (3 sources) Start: 03-16-2024 End: 03-31-2024 take 1 capsule by mouth once daily Vitamin B Complex (Vitamins B Complex) capsule Discontinued 1 CAP PO Daily March 16, 2024 12:00am March 31, 2024 9:45am Start: 03-16-2024 take 1 capsule by mo uth once daily Vitamin B Complex (Vitamins B Complex) capsule Active 1 CAP PO Daily March 16, 2024 12:00am Problems Active Problems Problem Classification Problem Date Documented Da te Episodic/Chronic Acute myocardial infarction (20 sources) Myocardial infarction; Translations: [ST elevation (STEMI) myocardial infarction of unspecified site] Onset: 0 05-23-2020 Chronic Aspiration pneumonitis; food/vomitus (7 sources) Aspiration pneumonia; Translations: [Pneumonitis due to inhalation of food and vomit] Onset: 4 03-17-2024 Episodic Cancer of bladder (20 sources) Malignant neoplasm of lateral wall of urinary bladder; Translations: [Malignant neoplasm of lateral wall of bladder] Onset: 9 05-04-2019 Chronic Cardiac and circulatory congenital anomalies (1 source) Abnormality of left atrial appendage; Translations: [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] Chronic Cardiac arrest and ventricular fibrillation (10 sources) Electromechanical dissociation; Translations: [Cardiac arrest, cause unspecified] Onset: 2 Chronic Cardiac dysrhythmias (20 sources) Paroxysmal atrial fibrillation; Translations: [Paroxysmal atrial fibrillation] Onset: 2 01-24-2022 Chronic Chronic kidney disease (20 sources) Chronic kidney disease stage 3; Translations: [Chronic renal disease, stage III] Onset: 2 02-07-2022 Chronic Coagulation and hemorrhagic disorders (20 sources) Platelet count below reference range; Translations: [Thrombocytopenia, unspecified] Onset: 3 06-19-2023 Chronic Coronary atherosclerosis and other heart disease (20 sources) Coronary arteriosclerosis; Translations: [Atherosclerotic heart disease of [place] coronary artery without angina pectoris] Onset: 2 01-24-2022 Chronic E Codes: Fall (1 source) Unspecified fall, initial encounter; Translations: [Unspecified fall, initial encounter] Onset: 4 Episodic E Codes: Fall (1 source) Fall Onset: 4 Genitourinary symptoms and ill-defined conditions (20 sources) Increased frequency of urination; Translations: [Perez hematuria] Onset: 2 01-24-2022 Episodic Malaise and fatigue (3 sources) Fatigue; Translations: [Other fatigue] Onset: 4 Episodic Multiple myeloma (20 sources) Multiple myeloma; Translations: [Multiple myeloma in remission] Onset: 2 Resolved: 3 10-01-2012 Chronic Multiple myeloma (15 sources) Relapse multiple myeloma; Translations: [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)] Other circulatory disease (15 sources) History of angioplasty; Translations: [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] Onset: 1 05-23-2021 Chronic Other circulatory disease (5 sources) Device in situ; Translations: [Presence of other cardiac implants and grafts] Onset: 2 Chronic Other circulatory disease (18 sources) Presence of other cardiac implants and grafts; Translations: [Other specified cardiac device in situ] Onset: 2 Chronic Other circulatory disease (1 source) 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; Translations: [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] Onset: 2 Chronic Other connective tissue disease (1 source) Left achilles tendonitis; Translations: [Achilles tendinitis, left leg] Episodic Other connective tissue disease (5 sources) Swelling of lower limb; Translations: [Other specified soft tissue disorders] 08-28-2023 Episodic Other fractures (1 source) Unspecified fracture of unspecified thoracic vertebra, initial encounter for closed fracture; Translations: [Unspecified fracture of unspecified thoracic vertebra, initial encounter for closed fracture] Onset: 4 Episodic Other fractures (3 sources) Fracture of second thoracic vertebra; Translations: [Unspecified fracture of second thoracic vertebra, initial encounter for closed fracture] 03-17-2024 Episodic Other fractures (4 sources) Unspecified fracture of second thoracic vertebra, initial encounter for closed fracture; Translations: [Closed fracture of dorsal [thoracic] vertebra without mention of spinal cord injury] Onset: 4 03-29-2024 Episodic Other fractures (1 source) Wedge compression fracture of second thoracic vertebra, initial encounter for closed fracture; Translations: [Wedge compression fracture of second thoracic vertebra, initial encounter for closed fracture] Onset: 4 Episodic Other gastrointestinal disorders (20 sources) Mass of penis; Translations: [Other specified disorders of penis] Onset: 3 10-07-2012 Chronic Other gastrointestinal disorders (3 sources) Oropharyngeal dysphagia; Translations: [Dysphagia, oropharyngeal phase] 03-17-2024 Episodic Other gastrointestinal disorders (3 sources) Esophageal dysphagia; Translations: [Other dysphagia] 03-18-2024 Episodic Other gastrointestinal disorders (4 sources) Other dysphagia; Translations: [Other dysphagia] Onset: 4 03-29-2024 Episodic Other gastrointestinal disorders (4 sources) Dysphagia, oropharyngeal phase; Translations: [Dysphagia, oropharyngeal phase] Onset: 4 03-29-2024 Episodic Other injuries and conditions due to external causes (3 sources) Fracture pain; Translations: [Other injury of unspecified body region, initial encounter] 03-17-2024 Episodic Other injuries and conditions due to external causes (4 sources) Other injury of unspecified body region, initial encounter; Translations: [Fracture of unspecified bone, closed] Onset: 4 03-29-2024 Episodic Other male genital disorders (20 sources) Induratio penis plastica; Translations: [Induration penis plastica] Onset: 3 05-11-2013 Chronic Other male genital disorders (8 sources) Impotence of organic origin; Translations: [Erectile dysfunction] Onset: 3 05-11-2013 Chronic Other male genital disorders (20 sources) Impotence; Translations: [Male erectile dysfunction, unspecified] Onset: 3 05-11-2013 Chronic Other male genital disorders (20 sources) Male erectile dysfunction, unspecified; Translations: [Impotence of organic origin] Onset: 3 05-11-2013 Chronic Other nervous system disorders (4 sources) Neuropathy; Translations: [Polyneuropathy, unspecified] 08-28-2023 Chronic Other nervous system disorders (7 sources) Acute postoperative pain; Translations: [Other acute postprocedural pain] 07-09-2023 Episodic Other non-traumatic joint disorders (2 sources) Acute ankle pain; Translations: [Pain in left ankle and joints of left foot] Episodic Pathological fracture (1 source) Pathological fracture of rib; Translations: [Pathological fracture, other site, initial encounter for fracture] Episodic Retinal detachments; defects; vascular occlusion; and retinopathy (2 sources) Exudative age-related macular degeneration, right eye, with active choroidal neovascularization; Translations: [Nonexudative age-related macular degeneration, bilateral, intermediate dry stage] Onset: 4 Chronic Spondylosis; intervertebral disc disorders; other back problems (4 sources) Spondylosis without myelopathy or radiculopathy, lumbar region; Translations: [SPONDYLS W/O MYELO-/RADICULOP LUMB] Onset: 1 Chronic Substance-related disorders (1 source) Drug-induced insomnia; Translations: [Other psychoactive substance use, unspecified with psychoactive substance-induced sleep disorder] 08-28-2023 Episodic Syncope (14 sources) Syncope and collapse; Translations: [Vasovagal syncope] Onset: 4 09-24-2023 Episodic Unclassified (1 source) Patient encounter status; Translations: [Preoperative testing] Unclassified (1 source) Weakness - Generalized Onset: 4 Unclassified (1 source) Confirmed [place] Virus Onset: 4 Unclassified (1 source) Ill Onset: 4 Unclassified (1 source) 84 y/o M from [place] Fall and T2 fx 91 p 129/84 91 % 15 rr ETA 13 min Missyjoy Salgado 1940 Fall at home today. T2 compression fracture. History of multiple myeloma without treatment. Scan shows possible metastatic disease. Also has aspiration pneumonia. Dr. Morrison accepts as trauma c Onset: 4 Viral infection (9 sources) Disease caused by 2019-nCoV; Translations: [COVID-19] 01-23-2024 Episodic Viral infection (2 sources) COVID-19; Translations: [COVID-19] Onset: 4 Past or Other Problems Problem Classification Problem Date Documented Date Episodic/Chronic Coma; stupor; and brain damage (11 sources) Loss of consciousness; Translations: [Unspecified coma] Onset: 01-24-2022 Episodic Deficiency and other anemia (2 sources) Anemia, unspecified; Translations: [Anemia, unspecified] Onset: 03-19-2022 Episodic Multiple myeloma (20 sources) Plasmacytoma; 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] Onset: 02-20-2017 02-20-2017 Episodic Neoplasms of unspecified nature or uncertain behavior (20 sources) Neoplasm of bladder; Translations: [Neoplasm of unspecified behavior of bladder] Onset: 05-26-2018 12-30-2018 Episodic Other and unspecified benign neoplasm (20 sources) History of polyp of colon; Translations: [Personal history of colonic polyps] Onset: 10-23-2012 10-23-2012 Episodic Other nervous system disorders (1 source) Other acute postprocedural pain; Translations: [Other acute postprocedural pain] Onset: 07-09-2023 Episodic Other screening for suspected conditions (not mental disorders or infectious disease) (20 sources) Raised prostate specific antigen; Translations: [Elevated prostate specific antigen [PSA]] Onset: 05-11-2013 05-11-2013 Episodic Residual codes; unclassified (6 sources) History of cardiac catheterization; Translations: [Other specified postprocedural states] Onset: 03-20-2022 03-20-2022 Episodic Residual codes; unclassified (2 sources) Other specified postprocedural states; Translations: [Other specified postprocedural states] Onset: 03-20-2022 Episodic Unclassified (2 sources) Onset: 09-24-2022 09-24-2022 Results Test Name Value Interpretation Reference Range Facility Non-Head Refrigerating Engineer Cytologyon Case No: [id number] Normal [facility] Comment on above: Performed By: #### N ROLL CUTTING OPERATOR #### [id number] [place], [place] [id number] Service Unit Operator Oil Well: Brennan Daniel MD [facility] [address] [place] [address] [place] [address] Service Unit Operator Oil Well: Luis Felipe Watson MD Urinalysis w/ Microon 2023 Bacteria 1+ Abnormal NONE [facility] Comment on above: Performed By: #### U AMIC #### [address] [place] [place] [address] Service Unit Operator Oil Well: Luis Felipe Watson MD Bilirubin, SemiQt,Ur MODERATE Abnormal NEG [facility] Comment on above: Performed By: #### U AMIC #### [facility] [address] [place] [address] [address]. [place], [place] [id number] Service Unit Operator Oil Well: Luis Felipe Watson MD Blood, Urine 3+ Abnormal NEG [facility] Comment on above: Performed By: #### U AMIC #### [facility] [address] [place], [place] [id number] Service Unit Operator Oil Well: Luis Felipe Watson MD Clarity (U) Cloudy Abnormal CLEAR [facility] Comment on above: Performed By: #### U AMIC #### [facility] [address] [place], [place] [phone] Service Unit Operator Oil Well: Luis Felipe Watson MD Color (U) Red Abnormal YEL [facility] Comment on above: Performed By: #### U AMIC #### [facility] [address] [place] [address] [address]. [place], [place] [id number] Service Unit Operator Oil Well: Luis Felipe Watson MD Epithelial cells LM Ql (Urine sed) 2 TO 5 Normal 0-5 [facility] Comment on above: Performed By: #### U AMIC #### [facility] [address] [place] [address] Dr. [place], [place] [id number] Service Unit Operator Oil Well: Luis Felipe Watson MD Glucose Ql (U) Negative Normal NEG [facility] Comment on above: Performed By: #### U AMIC #### [facility] [address] [place] [address] Dr. [place], [place] [phone] Service Unit Operator Oil Well: Luis Felipe Watson MD Ketones Ql (U) 1+ mg/dL Abnormal NEG [facility] Comment on above: Performed By: #### U AMIC #### [facility] [address] [place], [place] [id number] Service Unit Operator Oil Well: Luis Felipe Watson MD Leukocyte esterase Test strip Ql (U) LARGE Abnormal NEG [facility] Comment on above: Performed By: #### U AMIC #### [facility] [address] [place], [place] [phone] Service Unit Operator Oil Well: Luis Felipe Watson MD Nitrite,Ur Positive Abnormal NEG [facility] Comment on above: Performed By: #### U AMIC #### [facility] [address] [place], [place] [phone] Service Unit Operator Oil Well: Luis Felipe Watson MD Other Observations Results may be affected due to urine color interference. Abnormal NREQ [facility] Comment on above: Result Comment: Kenneth tity not sufficient. MICROSCOPIC PERFORMED ON UNSPUN URINE Performed By: #### U AMIC #### [facility] [address] [place], [place] [id number] Service Unit Operator Oil Well: Luis Felipe Watson MD PH,Ur 7.0 Normal 5.0-9.0 [facility] Comment on above: Performed By: #### U AMIC #### [facility] [address] [place] [address] [address] [place], [place] [phone] Service Unit Operator Oil Well: Luis Felipe Watson MD Protein Ql (U) 4+ mg/dL Abnormal NEG [facility] Comment on above: Performed By: #### U AMIC #### [facility] [address] [place] [address] [address]. [place], [place] [phone] Service Unit Operator Oil Well: Luis Felipe Watson MD Spec. Codorus,Ur 1.020 Normal 1.010-1.020 [facility] Comment on above: Performed By: #### U AMIC #### [facility] [address] [place] [place] [address] [address] [place], [place] [id number] Service Unit Operator Oil Well: Luis Felipe Watson MD Urine RBC's GREATER THAN 100 Normal 0-2 [facility] Comment on above: Performed By: #### U AMIC #### [facility] [address] [place], [place] 613[address]83 Service Unit Operator Oil Well: Luis Felipe Watson MD Urine WBC's GREATER THAN 100 Normal 0-5 [facility] Comment on above: Performed By: #### U AMIC #### [facility] [address] [place] [address] Service Unit Operator Oil Well: Luis Felipe Watson MD Urobilinogen,Ur ELEVATED Normal 0.0-1.0 [facility] Comment on above: Performed By: #### U AMIC #### [facility] [address] [place] [place] [address] Service Unit Operator Oil Well: Luis Felipe Watson MD Non-Head Refrigerating Engineer Cytologyon Specimen Description .VOIDED URINE Normal [facility] Comment on above: Performed By: #### N ROLL CUTTING OPERATOR #### [address] [id number] Service Unit Operator Oil Well: Brennan Daniel MD [facility] [address] [place] [address] Service Unit Operator Oil Well: Luis Felipe Watson MD Surgical Pathology Reporton 04-06-2024 Surgical Pathology Report (NOTE) Path Number: [id number] INTERPRETATION URINE, VOIDED: NEGATIVE FOR MALIGNANCY. ACUTE INFLAMMATION. Electronically Signed Out Abiodun Nails M.D. 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 Feeling of incomplete bladder emptying R39.14. Elevated PSA R97.20. Nocturia R35.1. Gross Description VOID 80 ml yellow clear fluid. MICROSCOPIC DESCRIPTION Microscopic examination performed. Non Head Refrigerating Engineer Thin Prep x 1 Processing Lab: [address] [address] Interpretation performed at [address] [address] NONGYNECOLOGICAL CYTOPATHOLOGY CONSULTATION Patient Name: NAOMIMISSY [facility] Rec: [id number] [facility] ANATOMIC PATHOLOGY [address] [place], [place] [address] [facility] CA holter monitor recordingo n 04-05-2024 CA holter monitor recording [facility] [place] [address] [place] [address] Holter Monitor Report Draft Patient: Missy Salgado MR#: [id number] 5 : 1940 Acct:[id number] Age/Sex: 84 / M ADM Date: 03/29/24 Loc: Room: Type: [facility] Attending Dr: Luis Ramon MD Copies to: Ordering Provider: Luis Ramon MD Date of Service: 03/29/24 CA/CA holter monitor recording: Paroxysmal atrial fibrillation ORDERED BY: Dr. Dilip Ramon INDICATION: An 84-year-old patient with history of atrial fibrillation. 1. The rhythm is sinus throughout. Average heart rate 88 beats per minute, minimum heart rate was 69 beats per minute, sinus rhythm at 4:56 a.m. and maximum heart rate 115 beats per minute, sinus tachycardia at 10:40 a.m. 2. No ventricular ectopy seen. 3. Rare isolated PACs were noted. There are only 24 beats noted. There is a single 5-beat run of atrial tachycardia at rate 126 beats per minute, which was not symptomatic. 4. No pauses exceeding 2 seconds were seen. 5. No symptoms in the patient's diary. CONCLUSION: A 24-hour Holter monitor that demonstrated normal sinus rhythm mechanism throughout. Average heart rate 88 beats per minute. There are no ventricular arrhythmias and rare premature atrial complexes, and a 5-beat run of atrial tachycardia at a rate of 126 beats per minute. There is no pause exceeding 2 seconds and no symptoms on the patient's diary. No atrial fibrillation was noted in the study. Transcribed By: NTS 04/05/24 1616 Dictated By: Katelynn Tillman MD, [facility] 04/05/24 1520 Signed By: Suma [facility] B2 Microglob SerPl-mCncon Zizf-9-Hsgisbqwnhjjt [Mass/Vol] 3.0 ug/mL Normal <3.1 [facility] Comment on above: Order Comment: Speci men Type: BLOOD SPECIMENOrdering Facility: [facility] Address: [address] [place] [address] Result Comment: Beta -2 Microglobulin test is performed using the [employer] immunoturbidimetric method. Results obtained with different methods or kits cannot be used interchangeably. Performed By: #### 1 952-1, 2885-2 ####[facility] LABCLIA [id number] [place] [address] [place] CBC W Auto Differential pane l (Bld)on 04-02-2024 Basophils (Bld) [#/Vol] 0.06 10*3/uL [facility] Basophils/100 WBC (Bld) 0.6 % [facility] Differential cell count method Nom (Bld) Auto [facility] Eosinophils (Bld) [#/Vol] 0.15 10*3/uL [facility] Eosinophils/100 WBC (Bld) 1.4 % [facility] Erythrocyte distribution width (RBC) [Ratio] 13.3 % 11.5 - 15.0 % [facility] Hematocrit (Bld) [Volume fraction] 34.9 % Low 39.0 - 51.0 % [facility] Hemoglobin (Bld) [Mass/Vol] 12.0 g/dL Low 13.0 - 17.0 g/dL [facility] Immature granulocytes (Bld) [#/Vol] 0.07 10*3/uL [facility] Immature granulocytes/100 WBC (Bld) 0.7 % [facility] Interpretation and review of laboratory results Abnormal [facility] Lymphocytes (Bld) [#/Vol] 1.25 10*3/uL [facility] Lymphocytes/100 WBC (Bld) 11.7 % [facility] MCH (RBC) [Entitic mass] 35.2 pg High 26. 0 - 34.0 pg [facility] MCHC (RBC) [Mass/Vol] 34.4 g/dL 30.5 - 36.0 g/dL [facility] MCV (RBC) [Entitic vol] 102.3 fL High 80.0 - 100.0 fL [facility] Monocytes (Bld) [#/Vol] 1.16 10*3/uL High [facility] Monocytes/100 WBC (Bld) 10.9 % [facility] Neutrophils (Bld) [#/Vol] 7.98 10*3/uL High [facility] Neutrophils/100 WBC (Bld) 74.7 % [facility] Nucleated RBC (Bld) [#/Vol] [facility] Nucleated RBC/100 WBC (Bld) [Ratio] 0.0 % /100 WBC [facility] Platelet mean volume (Bld) [Entitic vol] 9.7 fL 9.0 - 12.7 fL [facility] Platelets (Bld) [#/Vol] 372 10*3/uL [facility] RBC (Bld) [#/Vol] 3.41 10*6/uL Low 4.20 - 6.0 0 m/uL [facility] WBC (Bld) [#/Vol] 10.67 10*3/uL [facility] Basophils (Bld) [#/Vol] 0.06 10*3/uL Normal <0.11 [facility] Comment on above: Order Comment: Speci men Type: BLOOD SPECIMENOrdering Facility: [facility] Address: [address] [place] [address] Performed By: #### 5 7021-8 ####[facility] LABCLIA [id number] [place] [address] Basophils/100 WBC (Bld) 0.6 % Normal [facility] Comment on above: Order Comment: Speci men Type: BLOOD SPECIMENOrdering Facility: [facility] Address: [address] [place] [address] Performed By: #### 5 7021-8 ####[facility] LABCLIA [id number] [place] [address] Differential cell count method Nom (Bld) Auto Normal [facility] Comment on above: Order Comment: Speci men Type: BLOOD SPECIMENOrdering Facility: [facility] Address: [address] [place] [address] Performed By: #### 5 7021-8 ####[facility] LABCLIA [id number] [place] [address] Eosinophils (Bld) [#/Vol] 0.15 10*3/uL Normal <0.46 [facility] Comment on above: Order Comment: Speci men Type: BLOOD SPECIMENOrdering Facility: [facility] Address: [address] [place] [address] Performed By: #### 5 7021-8 ####[facility] LABCLIA [id number] [place] [address] Eosinophils/100 WBC (Bld) 1.4 % Normal [facility] Comment on above: Order Comment: Speci men Type: BLOOD SPECIMENOrdering Facility: [facility] Address: [address] [place] [address] Performed By: #### 5 7021-8 ####[facility] LABCLIA [id number] [place] [address] Erythrocyte distribution width (RBC) [Ratio] 13.3 % Normal 11.5-15.0 [facility] Comment on above: Order Comment: Speci men Type: BLOOD SPECIMENOrdering Facility: [facility] Address: [address] [place] [address] Performed By: #### 5 7021-8 ####[facility] LABCLIA [id number] [place] [address] Hematocrit (Bld) [Volume fraction] 34.9 % Low 39.0-51.0 [facility] Comment on above: Order Comment: Speci men Type: BLOOD SPECIMENOrdering Facility: [facility] Address: [address] [place] [address] Performed By: #### 5 7021-8 ####[facility] LABCLIA [id number] [place] [address] Hemoglobin (Bld) [Mass/Vol] 12.0 g/dL Low 13.0-17.0 [facility] Comment on above: Order Comment: Speci men Type: BLOOD SPECIMENOrdering Facility: [facility] Address: [address] [place] [address] Performed By: #### 5 7021-8 ####[facility] LABCLIA [id number] [place] [address] Immature granulocytes (Bld) [#/Vol] 0.07 10*3/uL Normal <0.10 [facility] Comment on above: Order Comment: Speci men Type: BLOOD SPECIMENOrdering Facility: [facility] Address: [address] [place] [address] Performed By: #### 5 7021-8 ####[facility] LABCLIA [id number] [place] [address] Immature granulocytes/100 WBC (Bld) 0.7 % Normal [facility] Comment on above: Order Comment: Speci men Type: BLOOD SPECIMENOrdering Facility: [facility] Address: [address] [place] [address] Performed By: #### 5 7021-8 ####[facility] LABCLIA [id number] [place] [address] Lymphocytes (Bld) [#/Vol] 1.25 10*3/uL Normal 1.00-4.00 [facility] Comment on above: Order Comment: Speci men Type: BLOOD SPECIMENOrdering Facility: [facility] Address: [address] [place] [address] Performed By: #### 5 7021-8 ####[facility] LABCLIA [id number] [place] [address] Lymphocytes/100 WBC (Bld) 11.7 % Normal [facility] Comment on above: Order Comment: Speci men Type: BLOOD SPECIMENOrdering Facility: [facility] Address: [address] [place] [address] Performed By: #### 5 7021-8 ####[facility] LABCLIA [id number] [place] [address] MCH (RBC) [Entitic mass] 35.2 pg High 26.0-34.0 [facility] Comment on above: Order Comment: Speci men Type: BLOOD SPECIMENOrdering Facility: [facility] Address: [address] [place] [address] Performed By: #### 5 7021-8 ####[facility] LABCLIA [id number] [place] [address] MCHC (RBC) [Mass/Vol] 34.4 g/dL Normal 30.5-36.0 [facility] Comment on above: Order Comment: Speci men Type: BLOOD SPECIMENOrdering Facility: [facility] Address: [address] [place] [address] Performed By: #### 5 7021-8 ####[facility] LABCLIA [id number] [place] [address] MCV (RBC) [Entitic vol] 102.3 fL High 80.0-100.0 [facility] Comment on above: Order Comment: Speci men Type: BLOOD SPECIMENOrdering Facility: [facility] Address: [address] [place] [address] Performed By: #### 5 7021-8 ####[facility] LABCLIA [id number] [place] [address] Monocytes (Bld) [#/Vol] 1.16 10*3/uL High <0.87 [facility] Comment on above: Order Comment: Speci men Type: BLOOD SPECIMENOrdering Facility: [facility] Address: [address] [place] [address] Performed By: #### 5 7021-8 ####[facility] LABCLIA [id number] [place] [address] Monocytes/100 WBC (Bld) 10.9 % Normal [facility] Comment on above: Order Comment: Speci men Type: BLOOD SPECIMENOrdering Facility: [facility] Address: [address] [place] [address] Performed By: #### 5 7021-8 ####[facility] LABCLIA [id number] [place] [address] Neutrophils (Bld) [#/Vol] 7.98 10*3/uL High 1.45-7.50 [facility] Comment on above: Order Comment: Speci men Type: BLOOD SPECIMENOrdering Facility: [facility] Address: [address] [place] [address] Performed By: #### 5 7021-8 ####[facility] LABCLIA [id number] [place] [address] Neutrophils/100 WBC (Bld) 74.7 % Normal [facility] Comment on above: Order Comment: Speci men Type: BLOOD SPECIMENOrdering Facility: [facility] Address: [address] [place] [address] Performed By: #### 5 7021-8 ####[facility] LABCLIA [id number] [place] [address] Nucleated RBC (Bld) [#/Vol] 10*3/uL Normal <0.01 [facility] Comment on above: Order Comment: Speci men Type: BLOOD SPECIMENOrdering Facility: [facility] Address: [address] [place] [address] Performed By: #### 5 7021-8 ####[facility] LABCLIA [id number] [place] [address] Nucleated RBC/100 WBC (Bld) [Ratio] 0.0 /100 WBC Normal [facility] Comment on above: Order Comment: Speci men Type: BLOOD SPECIMENOrdering Facility: [facility] Address: [address] [place] [address] Performed By: #### 5 7021-8 ####[facility] LABCLIA [id number] [place] [address] Platelet mean volume (Bld) [Entitic vol] 9.7 fL Normal 9.0-12.7 [facility] Comment on above: Order Comment: Speci men Type: BLOOD SPECIMENOrdering Facility: [facility] Address: [address] [place] [address] Performed By: #### 5 7021-8 ####[facility] LABCLIA [id number] [place] [address] Platelets (Bld) [#/Vol] 372 10*3/uL Normal 150-400 [facility] Comment on above: Order Comment: Speci men Type: BLOOD SPECIMENOrdering Facility: [facility] Address: [address] [place] [address] Performed By: #### 5 7021-8 ####[facility] LABCLIA [id number] [place] [address] RBC (Bld) [#/Vol] 3.41 10*6/uL Low 4.20-6.00 [facility] Comment on above: Order Comment: Speci men Type: BLOOD SPECIMENOrdering Facility: [facility] Address: [address] [place] [address] Performed By: #### 5 7021-8 ####[facility] LABCLIA [id number] [place] [address] WBC (Bld) [#/Vol] 10.67 10*3/uL Normal 3.70-11.00 [facility] Comment on above: Order Comment: Speci men Type: BLOOD SPECIMENOrdering Facility: [facility] Address: [address] [place] [address] Performed By: #### 5 7021-8 ####[facility] LABCLIA [id number] [place] [address] CNOVSPon 04-02-2024 CNOVSP Normal [facility] Calcium.ionized [Moles/Vol]o n 04-02-2024 Calcium.ionized (Bld) [Mass/Vol] 1.23 mmol/L Normal 1.08-1.30 [facility] Comment on above: Order Comment: Speci men Type: BLOOD SPECIMENOrdering Facility: [facility] Address: [address] [place] [address] Performed By: #### 1 995-0 ####[facility] LABCLIA [id number] [facility] [id number] [place] [address] [place] Calcium.ionized adjusted to pH 7.4 (Bld) [Moles/Vol] 1.19 mmol/L Normal 1.08-1.30 [facility] Comment on above: Order Comment: Speci men Type: BLOOD SPECIMENOrdering Facility: [facility] Address: [address] [place] [address] Performed By: #### 1 995-0 ####[facility] LABCLIA [id number] [address] AVENUED[id number] OF [facility] Comprehensive metabolic 2000 panelOrdered By: Frank Bender on 04-02-2024 Albumin [Mass/Vol] 3.4 g/dL Low 3.9 - 4.9 g/dL [facility] ALP [Catalytic activity/Vol] 136 U/L High 38 - 113 U/L [facility] ALT [Catalytic activity/Vol] 12 U/L 10 - 54 U/L [facility] Anion gap [Moles/Vol] 10 mmol/L 8 - 15 mmol/L [facility] AST [Catalytic activity/Vol] 20 U/L 14 - 40 U/L [facility] Bilirubin [Mass/Vol] 0.2 mg/dL 0.2 - 1 .3 mg/dL [facility] Calcium [Mass/Vol] 9.2 mg/dL 8.5 - 10. 2 mg/dL [facility] Chloride [Moles/Vol] 101 mmol/L 98 - 10 7 mmol/L [facility] CO2 [Moles/Vol] 24 mmol/L 22 - 30 mmol/L [facility] Creatinine [Mass/Vol] 1.34 mg/dL High 0.73 - 1.22 mg/dL [facility] GFR/1.73 sq M.predicted among non-blacks MDRD (S/P/Bld) [Vol rate/Area] 53 mL/min/{1.73_m2} Low - PINF [facility] Comment on above: Estimated Glomerular Filtration Rate (eGFR) is calculated using the 2020 CKD-EPI creatinine equation. This equation utilizes serum creatinine, sex, and age as parameters. The creatinine assay has traceable calibration to isotope dilution-mass spectrometry. Refer to KDIGO guidelines for clinical interpretation. In patients with unstable renal function, e.g. those with acute kidney injury, the eGFR may not accurately reflect actual GFR. Glucose [Mass/Vol] 105 mg/dL High 74 - 99 mg/dL [facility] Comment on above: The [place] Diabete s Association (ADA) provides guidance for cutoff values for fasting glucose and random glucose. The ADA defines fasting as no caloric intake for at least 8 hours. Fasting plasma glucose results between 100 to 125 mg/dL indicate increased risk for diabetes (prediabetes). Fasting plasma glucose results greater than or equal to 126 mg/dL meet the criteria for diagnosis of diabetes. In the absence of unequivocal hyperglycemia, results should be confirmed by repeat testing. In a patient with classic symptoms of hyperglycemia or hyperglycemic crisis, random plasma glucose results greater than or equal to 200 mg/dL meet the criteria for diagnosis of diabetes. Reference: Standards of Medical Care in Diabetes 2016, [place] Diabetes Association. Diabetes Care. 2016.39(Suppl 1). Interpretation and review of laboratory results Abnormal [facility] Potassium [Moles/Vol] 4.3 mmol/L 3.7 - 5.1 mmol/L [facility] Protein [Mass/Vol] 7.3 g/dL 6.3 - 8.0 g/dL [facility] Sodium [Moles/Vol] 135 mmol/L Low 136 - 144 mmol/L [facility] Urea nitrogen [Mass/Vol] 23 mg/dL 9 - 24 mg/dL [facility] Comprehensive metabolic 2000 panelon 04-02-2024 Albumin [Mass/Vol] 3.4 g/dL Low 3.9-4.9 [facility] Comment on above: Order Comment: Speci men Type: BLOOD SPECIMENOrdering Facility: [facility] Address: [address] [place] [address] Performed By: #### 2 777-1, 54980-8, 3084-1, 2532-0 ####[facility] LABCLIA [id number] [place] [address] ALP [Catalytic activity/Vol] 136 U/L High 38-113 [facility] Comment on above: Order Comment: Speci men Type: BLOOD SPECIMENOrdering Facility: [facility] Address: [address] [place] [address] Performed By: #### 2 777-1, 30118-5, 3084-1, 2532-0 ####[facility] LABCLIA [id number] [place] [address] ALT [Catalytic activity/Vol] 12 U/L Normal 10-54 [facility] Comment on above: Order Comment: Speci men Type: BLOOD SPECIMENOrdering Facility: [facility] Address: [address] [place] [address] Performed By: #### 2 777-1, 09400-3, 3084-1, 2532-0 ####[facility] LABCLIA [id number] [place] [address] Anion gap [Moles/Vol] 10 mmol/L Normal 8-15 [facility] Comment on above: Order Comment: Speci men Type: BLOOD SPECIMENOrdering Facility: [facility] Address: [address] [place] [address] Performed By: #### 2 777-1, 93336-5, 3084-1, 2532-0 ####[facility] LABIA [id number] [place] [address] AST [Catalytic activity/Vol] 20 U/L Normal 14-40 [facility] Comment on above: Order Comment: Speci men Type: BLOOD SPECIMENOrdering Facility: [facility] Address: [address] [place] [address] Performed By: #### 2 777-1, 69590-4, 3084-1, 2532-0 ####[facility] LABIA [id number] [place] [address] Bilirubin [Mass/Vol] 0.2 mg/dL Normal 0.2-1.3 [facility] Comment on above: Order Comment: Speci men Type: BLOOD SPECIMENOrdering Facility: [facility] Address: [address] [place] [address] Performed By: #### 2 777-1, 18595-5, 3084-1, 2532-0 ####[facility] LABCLIA [id number] [place] [address] Calcium [Mass/Vol] 9.2 mg/dL Normal 8.5-10.2 [facility] Comment on above: Order Comment: Speci men Type: BLOOD SPECIMENOrdering Facility: [facility] Address: [address] [place], [place] [address] Performed By: #### 2 777-1, 32891-7, 3084-1, 2532-0 ####[facility] LABCLIA [id number] [place] [address] Chloride [Moles/Vol] 101 mmol/L Normal 98-107 [facility] Comment on above: Order Comment: Speci men Type: BLOOD SPECIMENOrdering Facility: [facility] Address: [address] [place], [place] [address] Performed By: #### 2 777-1, 95880-1, 3084-1, 2532-0 ####[facility] LABIA [id number] [place] [address] CO2 [Moles/Vol] 24 mmol/L Normal 22-30 [facility] Comment on above: Order Comment: Speci men Type: BLOOD SPECIMENOrdering Facility: [facility] Address: [address] [place] [address] Performed By: #### 2 777-1, 74932-1, 3084-1, 2532-0 ####[facility] LABCLIA [id number] [place] [address] Creatinine [Mass/Vol] 1.34 mg/dL High 0.73-1.22 [facility] Comment on above: Order Comment: Speci men Type: BLOOD SPECIMENOrdering Facility: [facility] Address: [address] [place] [address] Performed By: #### 2 777-1, 61803-3, 3084-1, 2532-0 ####[facility] LABCLIA [id number] [place] [address] Creatinine and Glomerular filtration rate.predicted panel (S/P/Bld) 53 mL/min/1.73m??? Low >=60 [facility] Comment on above: Order Comment: Ever duran Type: BLOOD SPECIMENOrdering Facility: [facility] Address: [address] [place], [place] [address] Result Comment: Janae mated Glomerular Filtration Rate (eGFR) is calculated using the 2020 CKD-EPI creatinine equation. This equation utilizes serum creatinine, sex, and age as parameters. The creatinine assay has traceable calibration to isotope dilution-mass spectrometry. Refer to KDIGO guidelines for clinical interpretation. In patients with unstable renal function, e.g. those with acute kidney injury, the eGFR may not accurately reflect actual GFR. Performed By: #### 2 777-1, 09414-6, 3083-, 2531-0 ####[facility] LABCLIA [id number] [place] [address] Glucose [Mass/Vol] 105 mg/dL High 74-99 [facility] Comment on above: Order Comment: Ever duran Type: BLOOD SPECIMENOrdering Facility: [facility] Address: [address] [place] [address] Result Comment: The [place] Diabetes Association (ADA) provides guidance for cutoff values for fasting glucose and random glucose. The ADA defines fasting as no caloric intake for at least 8 hours. Fasting plasma glucose results between 100 to 125 mg/dL indicate increased risk for diabetes (prediabetes).Fasting plasma glucose results greater than or equal to 126 mg/dL meet the criteria for diagnosis of diabetes. In the absence of unequivocal hyperglycemia, results should be confirmed by repeat testing. In a patient with classic symptoms of hyperglycemia or hyperglycemic crisis, random plasma glucose results greater than or equal to 200 mg/dL meet the criteria for diagnosis of diabetes.Reference: Standards of Medical Care in Diabetes 2016, [place] [employer]. Diabetes Care. 2016.39(Suppl 1). Performed By: #### 2 777-1, 20878-0, 308-, 2532-0 ####[facility] LABCLIA [id number] [place] [address] Potassium [Moles/Vol] 4.3 mmol/L Normal 3.7-5.1 [facility] Comment on above: Order Comment: Speci men Type: BLOOD SPECIMENOrdering Facility: [facility] Address: [address] [place] [address] Performed By: #### 2 777-1, 12313-1, 3084-1, 2532-0 ####[facility] LABCLIA [id number] [place] [address] Protein [Mass/Vol] 7.3 g/dL Normal 6.3-8.0 [facility] Comment on above: Order Comment: Speci men Type: BLOOD SPECIMENOrdering Facility: [facility] Address: [address] [place] [address] Performed By: #### 2 777-1, 67160-2, 3083-1, 2532-0 ####[facility] LABIA [id number] [place] [address] Sodium [Moles/Vol] 135 mmol/L Low 136-144 [facility] Comment on above: Order Comment: Speci men Type: BLOOD SPECIMENOrdering Facility: [facility] Address: [address] [place] [address] Performed By: #### 2 777-1, 60465-6, 3083-1, 2532-0 ####[facility] LABIA [id number] [place] [address] Urea nitrogen [Mass/Vol] 23 mg/dL Normal 9-24 [facility] Comment on above: Order Comment: Speci men Type: BLOOD SPECIMENOrdering Facility: [facility] Address: [address] [place] [address] Performed By: #### 2 777-1, 90787-7, 3083-1, 2532-0 ####[facility] LABIA [id number] [place] [address] IMMUNOFIXATION SCREEN, SERUM on 04-02-2024 INTERPRETATION (MPA) Normal [facility] Comment on above: Order Comment: Speci men Type: BLOOD SPECIMENOrdering Facility: [facility] Address: [address] [place] [address] Performed By: #### I FESC ####[facility] LABCLIA [id number] [place] [address] [place] MPA RESULT A poorly defined region of restricted mobility is present that may represent an M protein. Abnormal No M protein is identified. [facility] Comment on above: Order Comment: Speci men Type: BLOOD SPECIMENOrdering Facility: [facility] Address: [address] [place] [address] Performed By: #### I FESC ####[facility] LABIA [id number] OF [place] STAFF REVIEW (MPA) Reviewed by Karlene Kirkpatrick M.D., Ph.D Normal [facility] Comment on above: Order Comment: Speci men Type: BLOOD SPECIMENOrdering Facility: [facility] Address: [address] [place] [address] Performed By: #### I FES ####[facility] LABIA [id number] [place] [address] [place] IMMUNOGLOBULINS,IGG,IGA,IGMo n 04-02-2024 IgA [Mass/Vol] 284 mg/dL Normal 70-400 [facility] Comment on above: Order Comment: Speci men Type: BLOOD SPECIMENOrdering Facility: [facility] Address: [address] [place] [address] Performed By: #### S ERIMM ####[facility] LABIA [id number] [place] [address] [place] IgG [Mass/Vol] 1476 mg/dL Normal 700-1600 [facility] Comment on above: Order Comment: Speci men Type: BLOOD SPECIMENOrdering Facility: [facility] Address: [address] [place] [address] Performed By: #### S ERIMM ####[facility] LABCLIA [id number] [place] [address] [place] IgM [Mass/Vol] 38 mg/dL Low 40-230 [facility] Comment on above: Order Comment: Speci men Type: BLOOD SPECIMENOrdering Facility: [facility] Address: [address] [place] [address] Performed By: #### S ERIMM ####[facility] LABCLIA [id number] [place] [address] [place] KAPPA/HERNANDEZ,FREE,SERon 2023 Immunoglobulin light chains.kappa.free (S) [Mass/Vol] 44.3 mg/L High 3.3-19.4 [facility] Comment on above: Order Comment: Speci men Type: BLOOD SPECIMENOrdering Facility: [facility] Address: [address] [place] [address] Result Comment: Rare ly, increased serum free light chains levels may not be detected or accurately quantified due to prozone phenomenon or in high viscosity samples using this immunoturbidimetric assay. Correlation with other laboratory results and clinical findings is recommended.The [place] Free Light Chain was performed using the Binding Site Optilite immunoturbidimetric method. Result obtained with different assay methods or kits cannot be used interchangeably. Performed By: #### K LFRS ####[facility] LABCLIA [id number] [place] [address] [place] Immunoglobulin light chains.kappa/Immunoglobu natanael light chains.lambda (S) [Mass ratio] 2.23 High 0.26-1.65 [facility] Comment on above: Order Comment: Speci men Type: BLOOD SPECIMENOrdering Facility: [facility] Address: [address] [place] [address] Performed By: #### K LFRS ####[facility] LABCLIA [id number] [place] [address] [place] Immunoglobulin light chains.lambda.free [Mass/Vol] 19.9 mg/L Normal 5.7-26.3 [facility] Comment on above: Order Comment: Speci men Type: BLOOD SPECIMENOrdering Facility: [facility] Address: [address] [place] [address] Result Comment: Rare ly, increased serum free light chains levels may not be detected or accurately quantified due to prozone phenomenon or in high viscosity samples using this immunoturbidimetric assay. Correlation with other laboratory results and clinical findings is recommended.The Lambda Free Light Chain was performed using the Binding Site Optilite immunoturbidimetric method. Result obtained with different assay methods or kits cannot be used interchangeably. Performed By: #### K LFRS ####[facility] LABCLIA [id number] [place] [id number] [place] LACTATE DEHYDROGENASEon 10- LDH [Catalytic activity/Vol] 208 U/L 135 - 225 U/L [facility] LDH SerPl-cCncon 04-02-2024 LDH [Catalytic activity/Vol] 208 U/L Normal 135-225 [facility] Comment on above: Order Comment: Speci men Type: BLOOD SPECIMENOrdering Facility: [facility] Address: [address] [place] [address] Performed By: #### 2 777-1, 39176-9, 3084-1, 2532-0 ####[facility] LABCLIA [id number] [place] [address] LDH [Catalytic activity/Vol] on 04-02-2024 Interpretation and review of laboratory results Normal [facility] PHOSPHORUS INORGANICon 04-02 Phosphate [Mass/Vol] 3.4 mg/dL 2.7 - 4 .8 mg/dL [facility] PROTEIN ELECTROPHORESIS SERU M (P)on 04-02-2024 Albumin [Mass/Vol] 2.87 g/dL Low 3.43-5.41 [facility] Comment on above: Order Comment: Speci men Type: BLOOD SPECIMENOrdering Facility: [facility] Address: [address] [place] [address] Performed By: #### L [id number] ####[facility] LABCLIA [id number] [place] [address] [place] Alpha 1 globulin Elph [Mass/Vol] 0.37 g/dL Normal 0.18-0.43 [facility] Comment on above: Order Comment: Speci men Type: BLOOD SPECIMENOrdering Facility: [facility] Address: [address] [place] [address] Performed By: #### L [id number] ####[facility] LABCLIA [id number] [place] [address] [place] Alpha 2 globulin Elph [Mass/Vol] 1.15 g/dL High 0.42-0.98 [facility] Comment on above: Order Comment: Speci men Type: BLOOD SPECIMENOrdering Facility: [facility] Address: [address] [place] [address] Performed By: #### L [id number] ####[facility] LABIA [id number] [place] [address] [place] Beta globulin Elph [Mass/Vol] 0.92 g/dL Normal 0.61-1.17 [facility] Comment on above: Order Comment: Speci men Type: BLOOD SPECIMENOrdering Facility: [facility] Address: [address] [place] [address] Performed By: #### L [id number] ####[facility] LABIA [id number] [place] [address] [place] Gamma globulin Elph [Mass/Vol] 1.28 g/dL Normal 0.53-1.51 [facility] Comment on above: Order Comment: Speci men Type: BLOOD SPECIMENOrdering Facility: [facility] Address: [address] [place] [address] Performed By: #### L [id number] ####[facility] LABCLIA [id number] [place] [address] [place] INTERPRETATION COMMENT FOR PROTEIN ELECTROPHORESIS Normal [facility] Comment on above: Order Comment: Speci men Type: BLOOD SPECIMENOrdering Facility: [facility] Address: [address] [place] [address] Performed By: #### L [id number] ####[facility] LABCLIA [id number] [place] [address] [place] M-PROTEIN LOCATION Normal [facility] Comment on above: Order Comment: Speci men Type: BLOOD SPECIMENOrdering Facility: [facility] Address: [address] [place] [address] Result Comment: Not Applicable. Performed By: #### L [id number] ####[facility] LABIA [id number] [place] [address] [place] Protein Fractions [Interp] An atypical region of restricted mobility is identified on protein electrophoresis. Abnormal No definitive M protein is identified on protein electrophor esis. [facility] Comment on above: Order Comment: Speci men Type: BLOOD SPECIMENOrdering Facility: [facility] Address: [address] [place] [address] Performed By: #### L [id number] ####[facility] LABCLIA [id number] [place] [address] [place] Protein.monoclonal Elph [Mass/Vol] 0.00 g/dL Normal <=0.00 [facility] Comment on above: Order Comment: Speci men Type: BLOOD SPECIMENOrdering Facility: [facility] Address: [address] [place] [address] Performed By: #### L [id number] ####[facility] LABCLIA [id number] [place] [address] [place] SPE STAFF REVIEW Reviewed by Malou Wahl MD Normal [facility] Comment on above: Order Comment: Speci men Type: BLOOD SPECIMENOrdering Facility: [facility] Address: [address] [place] [address] Performed By: #### L [id number] ####[facility] LABCLIA [id number] [address] [address] [place] Phosphate SerPl-mCncon 04-02 Phosphate [Mass/Vol] 3.4 mg/dL Normal 2.7-4.8 [facility] Comment on above: Order Comment: Speci men Type: BLOOD SPECIMENOrdering Facility: [facility] Address: [address] [place], [place] [address] Performed By: #### 2 777-1, 16229-6, 308-1, 2532-0 ####[facility] LABCLIA [id number] [place] [address] Phosphate [Mass/Vol]on 04-02 Interpretation and review of laboratory results Normal [facility] 04-02-2024 Protein [Mass/Vol] 6.6 g/dL Normal 6.3-8.0 [facility] Comment on above: Order Comment: Speci men Type: BLOOD SPECIMENOrdering Facility: [facility] Address: [address] [place], [place] [address] Performed By: #### 1 952-1, 2885-2 ####[facility] LABCLIA [id number] [place] [id number] [place] URIC ACIDon 04-02-2024 Urate [Mass/Vol] 6.2 mg/dL 4.0 - 8.1 mg/dL [facility] Urate SerPl-mCncon Urate [Mass/Vol] 6.2 mg/dL Normal 4.0-8.1 [facility] Comment on above: Order Comment: Speci men Type: BLOOD SPECIMENOrdering Facility: [facility] Address: [facility] CL[facility]ICDiane APRDOJEFFREY [place] [id number] Performed By: #### 2 777-1, 52950-7, 3084-1, 2532-0 ####[facility] LABIA [id number] [place] [address] Urate [Mass/Vol]on Interpretation and review of laboratory results Normal [facility] Automated basophil %Ordered By: Luis Tristen on 03-24-2024 Basophils/100 WBC (Bld) 1.2 % Normal . [facility] Comment on above: Performed By: #### C BC, BMP #### [facility] [address] Automated basophil countOrde red By: Luis Tristen on 03-24-2024 Basophils (Bld) [#/Vol] 0.1 10*3/uL Normal 0.0-0.2 [facility] Comment on above: Result Comment: PERF ORMED BY: [place] [address] PATHOLOGIST PHOTO PRODUCER EDMUNDO QUACH M.D. Performed By: #### C BC, BMP #### [address] Automated blood monocyte cou ntOrdered By: Luis Ramon on 03-24-2024 Monocytes (Bld) [#/Vol] 1.4 10*3/uL High 0.0-0.8 [facility] Comment on above: Performed By: #### C BC, BMP #### [address] Automated eosinophil %Ordere d By: Luis Ramon on 03-24-2024 Eosinophils/100 WBC (Bld) 3.1 % Normal . [facility] Comment on above: Performed By: #### C BC, BMP #### [address] Automated eosinophil countOr dered By: Luis Ramon on 03-24-2024 Eosinophils (Bld) [#/Vol] 0.3 10*3/uL Normal 0.0-0.45 [facility] Comment on above: Performed By: #### C BC, BMP #### [address] Automated monocyte %Ordered By: Luis Ramon on 03-24-2024 Monocytes/100 WBC (Bld) 14.0 % Normal . [facility] Comment on above: Performed By: #### C BC, BMP #### [facility] [address] Automated neutrophil %Ordere d By: Luis Ramon on 03-24-2024 Neutrophils/100 WBC (Bld) 72.9 % Normal . [facility] Comment on above: Performed By: #### C BC, BMP #### [facility] [address] Basic Metabolic Panelon 03-02 Creatinine Clr Calc Pharmacy 57.87 Normal [facility] Comment on above: Result Comment: PERF ORMED BY: [place] [address] PATHOLOGIST PHOTO PRODUCER EDMUNDO QUACH M.D. Performed By: #### C BC, BMP ####[place] [id number] [address] GFR/1.73 sq M.predicted MDRD (S/P/Bld) [Vol rate/Area] 56.945 mL/min/{1.73_m2} Normal [facility] Comment on above: Performed By: #### C BC, BMP ####[address] Calcium [Mass/volume] in Ser um or PlasmaOrdered By: Luis Ramon on 03-24-2024 Calcium [Mass/Vol] 8.7 mg/dL Normal 8.6-10.3 [facility] Comment on above: Performed By: #### C BC, BMP ####[place] [id number] [place] Carbon dioxide, total [Moles /volume] in Serum or PlasmaOrdered By: Luis Ramon on 03-24-2024 CO2 [Moles/Vol] 25.4 mmol/L Normal 21.0-31.0 [facility] Comment on above: Performed By: #### C BC, BMP ####[place] [id number] [place] Chloride [Moles/volume] in S kishor or PlasmaOrdered By: Luis Ramon on 03-24-2024 Chloride [Moles/Vol] 100 mmol/L Normal 98-107 [facility] Comment on above: Performed By: #### C BC, BMP ####[address] Complete Blood Count Auto Di ffon 03-24-2024 Mean Corpuscular HGB Conc 34.3 g/dL Normal 32.5-35.6 [facility] Comment on above: Performed By: #### C BC, BMP #### [address] NRBC% 0.1 /100{WBC} Normal 0-0.5 [facility] Comment on above: Performed By: #### C BC, BMP #### [address] Creatinine [Mass/volume] in Serum or PlasmaOrdered By: Luis Ramon on 03-24-2024 Creatinine [Mass/Vol] 1.26 mg/dL Normal 0.70-1.30 [facility] Comment on above: Performed By: #### C BC, BMP ####[address] Erythrocyte distribution wid th [Ratio] by Automated countOrdered By: Luis Ramon on 03-24-2024 Erythrocyte distribution width (RBC) [Ratio] 14.1 % Normal 12.0-14.8 [facility] Comment on above: Performed By: #### C BC, BMP #### [address] Erythrocytes [#/volume] in B lood by Automated countOrdered By: Luis Ramon on 03-24-2024 RBC (Bld) [#/Vol] 3.19 10*6/uL Low 3.90-5.60 [facility] Comment on above: Performed By: #### C BC, BMP #### [address] Glucose [Mass/volume] in Ser um or PlasmaOrdered By: Luis Ramon on 03-24-2024 Glucose [Mass/Vol] 96 mg/dL Normal 70-100 [facility] Comment on above: ADA recommended refe rence rangeRandom Glucose Reference Range is dependent on time and content of last meal. Glucose of more than 200 mg/dL in a nonstressed, ambulatory subject supports the diagnosis of Diabetes Mellitus. Result Comment: [place] om Glucose Reference Range is dependent on time and content of last meal. Glucose of more than 200 mg/dL in a nonstressed, ambulatory subject supports the diagnosis of Diabetes Mellitus. ADA recommended reference range Performed By: #### C ADONIS, BMP ####[facility] [id number] Hematocrit [Volume Fraction] of Blood by Automated countOrdered By: Luis Ramon on 03-24-2024 Hematocrit (Bld) [Volume fraction] 33.4 % Low 38.8-50.0 [facility] Comment on above: Performed By: #### C ADONIS, BMP #### [address] Hemoglobin [Mass/volume] in BloodOrdered By: Luis Ramon on 03-24-2024 Hemoglobin (Bld) [Mass/Vol] 11.4 g/dL Low 13.0-17.0 [facility] Comment on above: Performed By: #### C ADONIS, BMP #### [address] Leukocytes [#/volume] correc tony for nucleated erythrocytes in Blood by Automated counOrdered By: Luis Ramon on 03-24-2024 WBC corrected for nucl RBC Auto (Bld) [#/Vol] 10.0 10*3/uL 4.1-10.5 [facility] Leukocytes [#/volume] in Blo od by Automated countOrdered By: Luis Ramon on 03-24-2024 WBC (Bld) [#/Vol] 10.0 10*3/uL Normal 4.1-10.5 [facility] Comment on above: Performed By: #### C ADONIS, BMP #### [place] [address] [place] Lymphocytes [#/volume] in Bl ood by Automated countOrdered By: Luis Ramon on 03-24-2024 Lymphocytes (Bld) [#/Vol] 0.9 10*3/uL Low 1.00-4.8 [facility] Comment on above: Performed By: #### C BC, BMP #### [address] Lymphocytes/100 leukocytes i n Blood by Automated countOrdered By: Luis Tristen on 03-24-2024 Lymphocytes/100 WBC (Bld) 8.8 % Normal . [facility] Comment on above: Performed By: #### C BC, BMP #### [address] MCH [Entitic mass] by Automa tony countOrdered By: Luis Tristen on 03-24-2024 MCH (RBC) [Entitic mass] 35.9 pg High 27.5-35.2 [facility] Comment on above: Performed By: #### C BC, BMP #### [address] MCHC Auto (RBC) [Mass/Vol]Or dered By: Luis Ramon on 03-24-2024 MCHC (RBC) [Mass/Vol] 34.3 g/dL 32.5-35.6 [facility] MCV [Entitic volume] by Auto mated countOrdered By: Luis Ramon on 03-24-2024 MCV (RBC) [Entitic vol] 104.9 fL High 83.5-101 [facility] Comment on above: Performed By: #### C BC, BMP #### [address] Neutrophils [#/volume] in Bl ood by Automated countOrdered By: Luis Ramon on 03-24-2024 Neutrophils (Bld) [#/Vol] 7.3 10*3/uL Normal 1.8-7.7 [facility] Comment on above: Performed By: #### C BC, BMP #### [address] No Panel InformationOrdered By: Luis Ramon on 03-24-2024 Estimated GFR (CKD-EPI) 56.945 mL/Min [facility] Creatinine Clearance (Chem 57.87 [facility] Nucleated erythrocytes [Pres ence] in Blood by Automated countOrdered By: Lusi Tristen on 03-24-2024 Nucleated RBC Auto Ql (Bld) 0.1 /100{WBC} 0-0.5 [facility] Platelet mean volume [Entiti c volume] in Blood by Automated countOrdered By: Luis Ramon on 03-24-2024 Platelet mean volume (Bld) [Entitic vol] 8.1 fL Normal 6.6-10.1 [facility] Comment on above: Performed By: #### C BC, BMP #### [facility] [address] [place] [address] [place] Platelets [#/volume] in Bloo d by Automated countOrdered By: Luis Ramon on 03-24-2024 Platelets (Bld) [#/Vol] 305 10*3/uL Normal 150-450 [facility] Comment on above: Performed By: #### C BC, BMP #### [facility] [address] [place] [address] [place] Potassium [Moles/volume] in Serum or PlasmaOrdered By: Luis Ramon on 03-24-2024 Potassium [Moles/Vol] 4.4 mmol/L Normal 3.5-5.1 [facility] Comment on above: Performed By: #### C BC, BMP ####[place] [id number] [address] Serum or plasma anion gap de terminationOrdered By: Luis Ramon on 03-24-2024 Anion gap [Moles/Vol] 9.0 mmol/L Normal 6.0-15.0 [facility] Comment on above: Performed By: #### C BC, BMP ####[place] [address] [place] Sodium [Moles/volume] in Ser um or PlasmaOrdered By: Luis Ramon on 03-24-2024 Sodium [Moles/Vol] 130 mmol/L Low 136-145 [facility] Comment on above: Performed By: #### C BC, BMP ####[place] [address] [place] [address] [facility] [[email or web address]] Urea nitrogen [Mass/volume] in Serum or PlasmaOrdered By: Luis Ramon on 03-24-2024 Urea nitrogen [Mass/Vol] 19 mg/dL Normal 7-25 [facility] Comment on above: Performed By: #### C BC, BMP ####[address] [address] [facility] [[email or web address]] Basic Metabolic Panelon 03-02 Anion gap [Moles/Vol] 10.7 mmol/L Normal 6.0-15.0 [facility] Comment on above: Performed By: #### B MP, CBC ####[place] [id number] [facility] [[email or web address]] Calcium [Mass/Vol] 8.8 mg/dL Normal 8.6-10.3 [facility] Comment on above: Performed By: #### B MP, CBC ####[place] [id number] [facility] [[email or web address]] Chloride [Moles/Vol] 103 mmol/L Normal 98-107 [facility] Comment on above: Performed By: #### B MP, CBC ####[place] [id number] [facility] [[email or web address]] CO2 [Moles/Vol] 24.7 mmol/L Normal 21.0-31.0 [facility] Comment on above: Performed By: #### B MP, CBC ####[place] [id number] [facility] [[email or web address]] Creatinine [Mass/Vol] 1.34 mg/dL High 0.70-1.30 [facility] Comment on above: Performed By: #### B MP, CBC ####[address] [address] [place] Creatinine Clr Calc Pharmacy 54.42 Normal [facility] Comment on above: Result Comment: PERF ORMED BY: [facility] [address] [place] [id number] PATHOLOGIST PHOTO PRODUCER EDMUNDO QUACH M.D. Performed By: #### B MP, CBC ####[address] [place] [address] [facility] [[email or web address]] GFR/1.73 sq M.predicted MDRD (S/P/Bld) [Vol rate/Area] 52.890 mL/min/{1.73_m2} Normal [facility] Comment on above: Performed By: #### B MP, CBC ####[address] [address] [facility] [[email or web address]] Glucose [Mass/Vol] 136 mg/dL High 70-100 [facility] Comment on above: Result Comment: [place] Glucose Reference Range is dependent on time and content of last meal. Glucose of more than 200 mg/dL in a nonstressed, ambulatory subject supports the diagnosis of Diabetes Mellitus. ADA recommended reference range Performed By: #### B CHICA, CBC ####[address] Potassium [Moles/Vol] 4.4 mmol/L Normal 3.5-5.1 [facility] Comment on above: Performed By: #### B MP, CBC ####[address] Sodium [Moles/Vol] 134 mmol/L Low 136-145 [facility] Comment on above: Performed By: #### B MP, CBC ####[place] [id number] [facility] [[email or web address]] Urea nitrogen [Mass/Vol] 23 mg/dL Normal 7-25 [facility] Comment on above: Performed By: #### B CHICA, CBC ####[place] [id number] [facility] [[email or web address]] Capillary blood glucose anahi urement by glucometer (mass/volume)Ordered By: Luis Ramon on 03-23-2024 Glucose [Mass/Vol] 142 mg/dL Normal [facility] Comment on above: Random Glucose Refer ence Range is dependent on time and content of last meal. Glucose of more than 200 mg/dL in a nonstressed, ambulatory subject supports the diagnosis of Diabetes Mellitus. Result Comment: [place] om Glucose Reference Range is dependent on time and content of last meal. Glucose of more than 200 mg/dL in a nonstressed, ambulatory subject supports the diagnosis of Diabetes Mellitus. Performed By: #### G ARTI ####[facility] Care testing, Complete Blood Count Auto Di ffon 03-23-2024 Basophils (Bld) [#/Vol] 0.1 10*3/uL Normal 0.0-0.2 The [facility] Comment on above: Result Comment: PERF ORMED BY: [facility] [address] [address] PATHOLOGIST PHOTO PRODUCER EDMUNDO QUACH M.D. Performed By: #### B MP, CBC ####[place] [id number] [facility] [[email or web address]] Basophils/100 WBC (Bld) 0.6 % Normal . T margaret [facility] Comment on above: Performed By: #### B MP, CBC ####[address] Eosinophils (Bld) [#/Vol] 0.2 10*3/uL Normal 0.0-0.45 [facility] Comment on above: Performed By: #### B MP, CBC ####[place] [id number] [facility] [[email or web address]] Eosinophils/100 WBC (Bld) 1.8 % Normal . The [facility] Comment on above: Performed By: #### B MP, CBC ####[place] [id number] [facility] [[email or web address]] Erythrocyte distribution width (RBC) [Ratio] 14.3 % Normal 12.0-14.8 [facility] Comment on above: Performed By: #### B MP, CBC ####[place] [id number] [facility] [[email or web address]] Hematocrit (Bld) [Volume fraction] 33.7 % Low 38.8-50.0 The [facility] Comment on above: Performed By: #### B MP, CBC ####[place] [id number] [facility] [[email or web address]] Hemoglobin (Bld) [Mass/Vol] 11.4 g/dL Low 13.0-17.0 [facility] Comment on above: Performed By: #### B MP, CBC ####[address] Lymphocytes (Bld) [#/Vol] 1.0 10*3/uL Normal 1.00-4.8 [facility] Comment on above: Performed By: #### B MP, CBC ####[place] [id number] [facility] [[email or web address]] Lymphocytes/100 WBC (Bld) 9.7 % Normal . The [facility] Comment on above: Performed By: #### B MP, CBC ####[address] MCH (RBC) [Entitic mass] 35.8 pg High 27.5-35.2 [facility] Comment on above: Performed By: #### B MP, CBC ####[address] MCV (RBC) [Entitic vol] 106.2 fL High 83.5-101 T [facility] Comment on above: Performed By: #### B MP, CBC ####[address] Mean Corpuscular HGB Conc 33.7 g/dL Normal 32.5-35.6 The [facility] Comment on above: Performed By: #### B MP, CBC ####[address] Monocytes (Bld) [#/Vol] 1.2 10*3/uL High 0.0-0.8 [facility] Comment on above: Performed By: #### B MP, CBC ####[address] Monocytes/100 WBC (Bld) 12.1 % Normal . T [facility] Comment on above: Performed By: #### B MP, CBC ####[address] Neutrophils (Bld) [#/Vol] 7.6 10*3/uL Normal 1.8-7.7 [facility] Comment on above: Performed By: #### B MP, CBC ####[address] [address] [facility] [[email or web address]] Neutrophils/100 WBC (Bld) 75.8 % Normal . The [facility] Comment on above: Performed By: #### B MP, CBC ####[address] [address] [facility] [[email or web address]] NRBC% 0.0 /100{WBC} Normal 0-0.5 The [facility] Comment on above: Performed By: #### B MP, CBC ####[address] [address] [facility] [[email or web address]] Platelet mean volume (Bld) [Entitic vol] 8.1 fL Normal 6.6-10.1 [facility] Comment on above: Performed By: #### B MP, CBC ####[address] [address] [facility] [[email or web address]] Platelets (Bld) [#/Vol] 318 10*3/uL Normal 150-450 [facility] Comment on above: Performed By: #### B MP, CBC ####[address] [address] [facility] [[email or web address]] RBC (Bld) [#/Vol] 3.18 10*6/uL Low 3.90-5.60 The [facility] Comment on above: Performed By: #### B MP, CBC ####[address] [address] [facility] [[email or web address]] WBC (Bld) [#/Vol] 10.0 10*3/uL Normal 4.1-10.5 [facility] Comment on above: Performed By: #### B MP, CBC ####[address] [address] [facility] [[email or web address]] Glucose Poct Glucometerson 0 03-23-2024 Commemt1 Glu2: Cleaned Meter Normal [facility] Comment on above: Result Comment: PERF ORMED BY: [facility] [address] [place] [id number] PATHOLOGIST PHOTO PRODUCER EDMUNDO QUACH M.D. Performed By: #### G LULS ####Point of Care testing, No Panel InformationOrdered By: Luis Ramon on 03-23-2024 Bedside Glucose Comment Glu2: cleaned meter [facility] XR chest 2V*on 03-18-2024 XR chest 2V* [facility] [place] [address] [place], [place] [id number] XRay Report Signed Patient: Missy Salgado MR#: [id number] 5 : 1940 Acct:[id number] Age/Sex: 84 / M ADM Date: 03/16/24 Loc: Room: [address] [place] [address] Type: ADM IN Attending Dr: Luis Ramon MD Copies to: Luis Ramon MD Ordering Provider: Luis Ramon MD Date of Service: 03/18/24 XR/XR chest 2V*: f/u aspiration pna from outside hospital AP ERECT AND LATERAL CHEST: CLINICAL HISTORY: Follow-up aspiration pneumonia. COMPARISON: 07/09/2023 A right-sided Uigury-h-Mjgk catheter is again noted. There is continued shallow inspiration. There are still minor interstitial changes. On the lateral view, mild lower lobe atelectatic and/or infiltrative change is not excluded. There is no sizable effusion or pneumothorax. The cardiac and mediastinal contours are stable. The bony structures are osteopenic. There is prior thoracic fusion. XR/XR chest 2V* IMPRESSION: CONTINUED SHALLOWER INSPIRATION. CONTINUED MILD INTERSTITIAL CHANGES. POTENTIAL LOWER LOBE ATELECTASIS AND/OR INFILTRATE. CLINICAL CORRELATION IS SUGGESTED. Impression dictated by: Perla Mendoza M.D.03/18/2024 12:47 PM Dictation Location: [place] [address] Transcribed By: [facility] 03/18/24 1247 Dictated By: Perla Mendoza MD 03/18/24 1245 Signed By: 03/18/24 1247 Normal [facility] Alanine aminotransferase [En zymatic activity/volume] in Serum or PlasmaOrdered By: Luis Ramon on 03-17-2024 ALT [Catalytic activity/Vol] 16 U/L Normal 7-52 [facility] Comment on above: Performed By: #### C MP, PAB, CBC #### [place] [address] [place] Albumin [Mass/volume] in Ser um or Plasma by Bromocresol green (BCG) dye binding methoOrdered By: Luis Ramon on 03-17-2024 Albumin BCG dye [Mass/Vol] 3.2 g/dL Low 3.5-5.7 [facility] Alkaline phosphatase [Enzyma tic activity/volume] in Serum or PlasmaOrdered By: Luis Ramon on 03-17-2024 ALP [Catalytic activity/Vol] 85 U/L Normal 34-104 [facility] Comment on above: Performed By: #### C MP, PAB, CBC #### [address] Aspartate aminotransferase [ Enzymatic activity/volume] in Serum or PlasmaOrdered By: Luis Ramon on 03-17-2024 AST [Catalytic activity/Vol] 24 U/L Normal 13-39 [facility] Comment on above: Performed By: #### C MP, PAB, CBC #### [address] Bilirubin.total [Mass/volume ] in Serum or PlasmaOrdered By: Luis Ramon on 03-17-2024 Bilirubin [Mass/Vol] 0.4 mg/dL Normal 0.3-1.0 [facility] Comment on above: Performed By: #### C MP, PAB, CBC #### [address] Complete Blood Count Auto Di ffon 03-17-2024 Basophils (Bld) [#/Vol] 0.0 10*3/uL Normal 0.0-0.2 [facility] Comment on above: Result Comment: PERF ORMED BY: [place] [address] PATHOLOGIST PHOTO PRODUCER EDMUNDO QUACH M.D. Performed By: #### C MP, PAB, CBC #### [place] [address] [place] Basophils/100 WBC (Bld) 0.5 % Normal . T he [facility] Comment on above: Performed By: #### C MP, PAB, CBC #### [address] Eosinophils (Bld) [#/Vol] 0.3 10*3/uL Normal 0.0-0.45 [facility] Comment on above: Performed By: #### C MP, PAB, CBC #### [address] Eosinophils/100 WBC (Bld) 3.2 % Normal . [facility] Comment on above: Performed By: #### C MP, PAB, CBC #### [address] Erythrocyte distribution width (RBC) [Ratio] 14.5 % Normal 12.0-14.8 [facility] Comment on above: Performed By: #### C MP, PAB, CBC #### [address] Hematocrit (Bld) [Volume fraction] 35.3 % Low 38.8-50.0 [facility] Comment on above: Performed By: #### C MP, PAB, CBC #### [address] Hemoglobin (Bld) [Mass/Vol] 12.0 g/dL Low 13.0-17.0 [facility] Comment on above: Performed By: #### C MP, PAB, CBC #### [address] Lymphocytes (Bld) [#/Vol] 1.2 10*3/uL Normal 1.00-4.8 [facility] Comment on above: Performed By: #### C MP, PAB, CBC #### [place] [address] [place] Lymphocytes/100 WBC (Bld) 12.2 % Normal . [facility] Comment on above: Performed By: #### C MP, PAB, CBC #### [address] MCH (RBC) [Entitic mass] 35.8 pg High 27.5-35.2 [facility] Comment on above: Performed By: #### C MP, PAB, CBC #### [address] MCV (RBC) [Entitic vol] 105.8 fL High 83.5-101 [facility] Comment on above: Performed By: #### C MP, PAB, CBC #### [address] Mean Corpuscular HGB Conc 33.8 g/dL Normal 32.5-35.6 [facility] Comment on above: Performed By: #### C MP, PAB, CBC #### [place] [address] [place] Monocytes (Bld) [#/Vol] 1.4 10*3/uL High 0.0-0.8 [facility] Comment on above: Performed By: #### C MP, PAB, CBC #### [address] Monocytes/100 WBC (Bld) 14.8 % Normal . T [facility] Comment on above: Performed By: #### C MP, PAB, CBC #### [address] Neutrophils (Bld) [#/Vol] 6.7 10*3/uL Normal 1.8-7.7 [facility] Comment on above: Performed By: #### C MP, PAB, CBC #### [address] Neutrophils/100 WBC (Bld) 69.3 % Normal . [facility] Comment on above: Performed By: #### C MP, PAB, CBC #### [address] NRBC% 0.0 /100{WBC} Normal 0-0.5 [facility] Comment on above: Performed By: #### C MP, PAB, CBC #### [address] Platelet mean volume (Bld) [Entitic vol] 8.1 fL Normal 6.6-10.1 [facility] Comment on above: Performed By: #### C MP, PAB, CBC #### [address] Platelets (Bld) [#/Vol] 245 10*3/uL Normal 150-450 [facility] Comment on above: Performed By: #### C MP, PAB, CBC #### [address] RBC (Bld) [#/Vol] 3.34 10*6/uL Low 3.90-5.60 [facility] Comment on above: Performed By: #### C MP, PAB, CBC #### [address] WBC (Bld) [#/Vol] 9.7 10*3/uL Normal 4.1-10.5 The [facility] Comment on above: Performed By: #### C MP, PAB, CBC #### [address] Comprehensive Metabolic Pane robin 03-17-2024 Albumin [Mass/Vol] 3.2 g/dL Low 3.5-5.7 [facility] Comment on above: Performed By: #### C MP, PAB, CBC #### [address] Anion gap [Moles/Vol] 10.1 mmol/L Normal 6.0-15.0 [facility] Comment on above: Performed By: #### C MP, PAB, CBC #### [address] Calcium [Mass/Vol] 8.6 mg/dL Normal 8.6-10.3 [facility] Comment on above: Performed By: #### C MP, PAB, CBC #### [address] Chloride [Moles/Vol] 106 mmol/L Normal 98-107 [facility] Comment on above: Performed By: #### C MP, PAB, CBC #### [address] [place] [address] [place] CO2 [Moles/Vol] 24.0 mmol/L Normal 21.0-31.0 The [facility] Comment on above: Performed By: #### C CHICA PAB, CBC #### [address] Creatinine [Mass/Vol] 1.18 mg/dL Normal 0.70-1.30 [facility] Comment on above: Performed By: #### C CHICA PAB, CBC #### [place] [address] [place] Creatinine Clr Calc Pharmacy 61.14 Normal [facility] Comment on above: Performed By: #### C CORY COTO, CBC #### [place] [address] [place] GFR/1.73 sq M.predicted MDRD (S/P/Bld) [Vol rate/Area] mL/min/{1.73_m2} Normal [facility] Comment on above: Performed By: #### C CHICA PAB, CBC #### [address] Glucose [Mass/Vol] 93 mg/dL Normal 70-100 [facility] Comment on above: Result Comment: [facility] Glucose Reference Range is dependent on time and content of last meal. Glucose of more than 200 mg/dL in a nonstressed, ambulatory subject supports the diagnosis of Diabetes Mellitus. ADA recommended reference range Performed By: #### C CHICA PAB, CBC #### [address] Potassium [Moles/Vol] 4.1 mmol/L Normal 3.5-5.1 [facility] Comment on above: Performed By: #### C CHICA PAB, CBC #### [place] [address] [place] Sodium [Moles/Vol] 136 mmol/L Normal 136-145 [facility] Comment on above: Performed By: #### C MP PAB, CBC #### [place] [address] [place] Urea nitrogen [Mass/Vol] 17 mg/dL Normal 7-25 [facility] Comment on above: Performed By: #### C MP, PAB, CBC #### [address] Prealbumin [Mass/volume] in Serum or PlasmaOrdered By: Luis Ramon on 03-17-2024 Prealbumin [Mass/Vol] 17.3 mg/dL Normal 17.0-34.0 [facility] Comment on above: Result Comment: PERF ORMED BY: [place] [address] PATHOLOGIST PHOTO PRODUCER EDMUNDO QUACH M.D. Performed By: #### C MP, PAB, CBC #### [address] Protein [Mass/volume] in Ser um or PlasmaOrdered By: Luis Ramon on 03-17-2024 Protein [Mass/Vol] 6.4 g/dL Normal 6.4-8.9 [facility] Comment on above: Performed By: #### C MP, PAB, CBC #### [address] Serum globulin measurement b y calculation (mass/volume)Ordered By: Luis Ramon on 03-17-2024 Globulin (S) [Mass/Vol] 3.2 g/dL Normal F [facility] Comment on above: Performed By: #### C MP, PAB, CBC #### [address] Serum or plasma albumin/glob ulin mass ratioOrdered By: Luis Ramon on 03-17-2024 Albumin/Globulin [Mass ratio] 1.0 {ratio} Normal [facility] Comment on above: Performed By: #### C MP, PAB, CBC #### [address] BASIC METABOLIC PANLon 03-16 Anion gap [Moles/Vol] 7 mmol/L Normal 5-[address] [facility] Comment on above: Performed By: #### C BCA, BMP #### [facility] ([id number]) [address], [address] [place] [address] Calcium [Mass/Vol] 8.6 mg/dL Normal 8.5-10.5 [facility] Comment on above: Performed By: #### C BCA, BMP #### [facility] ([id number]) [address], [address] [place] [address] Chloride [Moles/Vol] 106 mmol/L Normal 98-109 [facility] Comment on above: Performed By: #### C BCA, BMP #### [facility] ([id number]) [address], [address] [place] [address] CO2 [Moles/Vol] 26 mmol/L Normal 22-32 [facility] Comment on above: Performed By: #### C BCA, BMP #### [facility] ([id number]) [address], [address] [place] [address] Creatinine [Mass/Vol] 1.22 mg/dL Normal 0.60-1.30 [facility] Comment on above: Result Comment: METH OD TRACEABLE TO IDMS STANDARD Performed By: #### C BCA, BMP #### [facility] ([id number]) [address], [address] [place] [address] GFR/1.73 sq M.predicted among non-blacks MDRD (S/P/Bld) [Vol rate/Area] 59 mL/min/{1.73_m2} Low >59 [facility] Comment on above: Result Comment: Reported eGFR is based on the CKD-EPI 2020 equation that does not use a race coefficient. Performed By: #### C BCA, BMP #### [facility] ([id number]) [address], [address] [place] [address] Glucose [Mass/Vol] 92 mg/dL Normal 65-99 [facility] Comment on above: Performed By: #### C BCA, BMP #### [facility] ([id number]) [address] [place] [address] Potassium [Moles/Vol] 4.1 mmol/L Normal 3.5-5.0 [facility] Comment on above: Performed By: #### C LUCIA, BMP #### [facility] ([id number]) [address] [place] [address] Sodium [Moles/Vol] 139 mmol/L Normal 134-146 [facility] Comment on above: Performed By: #### C LUCIA, BMP #### [facility] ([id number]) [address] [place] [address] Urea nitrogen [Mass/Vol] 17 mg/dL Normal 5-27 [facility] Comment on above: Performed By: #### C LUCIA, BMP #### [facility] ([id number]) [address] [place] [address] CBC AND AUTO DIFFon 03-16-20 24 ABSOLUTE BASOPHIL 0.1 X10E9/L Normal 0.0-0.2 [facility] Comment on above: Performed By: #### C LUCIA, BMP #### [facility] ([id number]) [address] [place] [address] ABSOLUTE NEUTROPHIL 6.2 X10E9/L Normal 1.5-6.6 [facility] Comment on above: Performed By: #### C LUCIA, BMP #### [facility] ([id number]) [address], [address] [place] [address] Basophils/100 WBC (Bld) 0.8 % Normal P [facility] Comment on above: Performed By: #### C BCA, BMP #### [facility] ([id number]) [address], [address] [place] [address] Eosinophils (Bld) [#/Vol] 0.3 10*3/uL Normal 0.0-0.4 [facility] Comment on above: Performed By: #### C BCA, BMP #### [facility] ([id number]) [address] [address] [place] [address] Eosinophils/100 WBC (Bld) 3.8 % Normal [facility] Comment on above: Performed By: #### C BCA, BMP #### [facility] ([id number]) [address], [address] [place] [address] Erythrocyte distribution width (RBC) [Ratio] 14.4 % Normal 11.5-15.0 [facility] Comment on above: Performed By: #### C BCA, BMP #### [facility] ([id number]) [address], [facility] [address] [place] [address] Hematocrit (Bld) [Volume fraction] 35.1 % Low 39-49 [facility] Comment on above: Performed By: #### C BCA, BMP #### [facility] ([id number]) [address], [facility] [address] [place] [address] Hemoglobin (Bld) [Mass/Vol] 11.8 g/dL Low 13.0-17.0 [facility] Comment on above: Performed By: #### C BCA, BMP #### [facility] ([id number]) [address], [address] [place] [address] Lymphocytes (Bld) [#/Vol] 1.0 10*3/uL Normal 1.0-3.5 [facility] Comment on above: Performed By: #### C BCA, BMP #### [facility] ([id number]) [address], [address] [place] [address] Lymphocytes/100 WBC (Bld) 11.7 % Normal [facility] Comment on above: Performed By: #### C BCA, BMP #### [facility] ([id number]) [address], [address] [place] [address] MCH (RBC) [Entitic mass] 35.8 pg High 27-34 [facility] Comment on above: Performed By: #### C LUCIA, BMP #### [facility] ([id number]) [address] [place] [address] MCHC (RBC) [Mass/Vol] 33.6 g/dL Normal 32-36 [facility] Comment on above: Performed By: #### C LUCIA, BMP #### [facility] ([id number]) [address] [place] [address] MCV (RBC) [Entitic vol] 107 fL High 80-100 P [facility] Comment on above: Performed By: #### C LUCIA, BMP #### [facility] ([id number]) [address] [place] [address] Monocytes (Bld) [#/Vol] 1.2 10*3/uL High 0-0.9 [facility] Comment on above: Performed By: #### C LUCIA, BMP #### [facility] ([id number]) [address] [place] [address] Monocytes/100 WBC (Bld) 13.7 % Normal P [facility] Comment on above: Performed By: #### C LUCIA, BMP #### [facility] ([id number]) [address] [place] [address] Neutrophils/100 WBC (Bld) 70.0 % Normal [facility] Comment on above: Performed By: #### C LUCIA, BMP #### [facility] ([id number]) [address] [place] [address] Platelet mean volume (Bld) [Entitic vol] 8.3 fL Normal 7-12 [facility] Comment on above: Performed By: #### C BCA, BMP #### [facility] ([id number]) [address], [address] [place] [address] Platelets (Bld) [#/Vol] 238 10*3/uL Normal 150-450 [facility] Comment on above: Performed By: #### C BCA, BMP #### [facility] ([id number]) [address], [address] [place] [address] RBC COUNT 3.29 X10E12/L Low 4.10-5.70 [facility] Comment on above: Performed By: #### C LUCIA, BMP #### [facility] ([id number]) [address], [address] [place] [address] WBC (Bld) [#/Vol] 8.8 10*3/uL Normal 4.0-11.0 [facility] Comment on above: Performed By: #### C LUCIA, BMP #### [facility] ([id number]) [address], [address] [place] [address] BASIC METABOLIC PANLon 03-15 Anion gap [Moles/Vol] 7 mmol/L Normal 5-15 [facility] Comment on above: Performed By: #### C BCA, BMP #### [facility] ([id number]) [address], [address] [place] [address] Calcium [Mass/Vol] 8.4 mg/dL Low 8.5-10.5 [facility] Comment on above: Performed By: #### C BCA, BMP #### [facility] ([id number]) [address], [address] [place] [address] Chloride [Moles/Vol] 107 mmol/L Normal 98-109 [facility] Comment on above: Performed By: #### C BCA, BMP #### [facility] ([id number]) [address], [address] [place] [address] CO2 [Moles/Vol] 26 mmol/L Normal 22-32 [facility] Comment on above: Performed By: #### C BCA, BMP #### [facility] ([id number]) [address] [place] [address] Creatinine [Mass/Vol] 1.15 mg/dL Normal 0.60-1.30 [facility] Comment on above: Result Comment: METH OD TRACEABLE TO IDMS STANDARD Performed By: #### C BCA, BMP #### [facility] ([id number]) [address], [address] [place] [address] GFR/1.73 sq M.predicted among non-blacks MDRD (S/P/Bld) [Vol rate/Area] 64 mL/min/{1.73_m2} Normal >59 [facility] Comment on above: Result Comment: Reported eGFR is based on the CKD-EPI 2020 equation that does not use a race coefficient. Performed By: #### C BCA, BMP #### [facility] ([id number]) [address] [place] [address] Glucose [Mass/Vol] 92 mg/dL Normal 65-99 [facility] Comment on above: Performed By: #### C BCA, BMP #### [facility] ([id number]) [address], [address] [place] [address] Potassium [Moles/Vol] 4.2 mmol/L Normal 3.5-5.0 [facility] Comment on above: Performed By: #### C BCA, BMP #### [facility] ([id number]) [address], [address] [place] [address] Sodium [Moles/Vol] 140 mmol/L Normal 134-146 [facility] Comment on above: Performed By: #### C BCA, BMP #### [facility] ([id number]) [address], [address] [place] [address] Urea nitrogen [Mass/Vol] 18 mg/dL Normal 5-27 [facility] Comment on above: Performed By: #### C BCA, BMP #### [facility] ([id number]) [address], [address] [place] [address] CBC AND AUTO DIFFon 03-15-20 24 ABSOLUTE BASOPHIL 0.1 X10E9/L Normal 0.0-0.2 [facility] Comment on above: Performed By: #### C BCA, BMP #### [facility] ([id number]) [address], [address] [place] [address] ABSOLUTE NEUTROPHIL 5.2 X10E9/L Normal 1.5-6.6 [facility] Comment on above: Performed By: #### C BCA, BMP #### [facility] ([id number]) [address], [address] [place] [address] Basophils/100 WBC (Bld) 1.2 % Normal [facility] Comment on above: Performed By: #### C BCA, BMP #### [facility] ([id number]) [address], [address] [place] [address] Eosinophils (Bld) [#/Vol] 0.3 10*3/uL Normal 0.0-0.4 [facility] Comment on above: Performed By: #### C BCA, BMP #### [facility] ([id number]) [address], [address] [place] [address] Eosinophils/100 WBC (Bld) 4.1 % Normal [facility] Comment on above: Performed By: #### C BCA, BMP #### [facility] ([id number]) [address], [address] [place] [address] Erythrocyte distribution width (RBC) [Ratio] 14.2 % Normal 11.5-15.0 [facility] Comment on above: Performed By: #### C BCA, BMP #### [facility] ([id number]) [address], [address] [place] [address] Hematocrit (Bld) [Volume fraction] 33.6 % Low 39-49 [facility] Comment on above: Performed By: #### C LUCIA, BMP #### [facility] ([id number]) [address], [address] [place] [address] Hemoglobin (Bld) [Mass/Vol] 11.1 g/dL Low 13.0-17.0 [facility] Comment on above: Performed By: #### C LUCIA, BMP #### [facility] ([id number]) [address], [address] [place] [address] Lymphocytes (Bld) [#/Vol] 0.9 10*3/uL Low 1.0-3.5 [facility] Comment on above: Performed By: #### C LUCIA, BMP #### [facility] ([id number]) [address], [address] [place] [address] Lymphocytes/100 WBC (Bld) 10.9 % Normal [facility] Comment on above: Performed By: #### Lexis MYERS, BMP #### [facility] ([id number]) [address], [address] [place] [address] MCH (RBC) [Entitic mass] 35.0 pg High 27-34 [facility] Comment on above: Performed By: #### C LUCIA, BMP #### [facility] ([id number]) [address], [address] [place] [address] MCHC (RBC) [Mass/Vol] 33.0 g/dL Normal 32-36 [facility] Comment on above: Performed By: #### C LUCIA, BMP #### [facility] ([id number]) [address], [address] [place] [address] MCV (RBC) [Entitic vol] 106 fL High 80-100 P [facility] Comment on above: Performed By: #### C BCA, BMP #### [facility] ([id number]) [address] [place] [address] Monocytes (Bld) [#/Vol] 1.4 10*3/uL High 0-0.9 [facility] Comment on above: Performed By: #### C BCA, BMP #### [facility] ([id number]) [address] [place] [address] Monocytes/100 WBC (Bld) 17.4 % Normal P [facility] Comment on above: Performed By: #### C LUCIA, BMP #### [facility] ([id number]) [address], [address] [place] [address] Neutrophils/100 WBC (Bld) 66.4 % Normal [facility] Comment on above: Performed By: #### C LUCIA, BMP #### [facility] ([id number]) [address], [address] [place] [address] Platelet mean volume (Bld) [Entitic vol] 8.4 fL Normal 7-12 [facility] Comment on above: Performed By: #### C LUCIA, BMP #### [facility] ([id number]) [address], [address] [place] [address] Platelets (Bld) [#/Vol] 239 10*3/uL Normal 150-450 [facility] Comment on above: Performed By: #### C BCA, BMP #### [facility] ([id number]) [address], [address] [place] [address] RBC COUNT 3.17 X10E12/L Low 4.10-5.70 [facility] Comment on above: Performed By: #### C BCA, BMP #### [facility] ([id number]) [address], [address] [place] [address] WBC (Bld) [#/Vol] 7.9 10*3/uL Normal 4.0-11.0 [facility] Comment on above: Performed By: #### C BCA, BMP #### [facility] ([id number]) [address], [address] [place] [address] BASIC METABOLIC PANLon 03-14 Anion gap [Moles/Vol] 7 mmol/L Normal 5-15 [facility] Comment on above: Performed By: #### C BCA, BMP #### [facility] ([id number]) [address], [address] [place] [address] Calcium [Mass/Vol] 8.4 mg/dL Low 8.5-10.5 [facility] Comment on above: Performed By: #### C BCA, BMP #### [facility] ([id number]) [address], [address] [place] [address] Chloride [Moles/Vol] 106 mmol/L Normal 98-109 [facility] Comment on above: Performed By: #### C BCA, BMP #### [facility] ([id number]) [address], [address] [place] [address] CO2 [Moles/Vol] 27 mmol/L Normal 22-32 [facility] Comment on above: Performed By: #### C BCA, BMP #### [facility] ([id number]) [address], [address] [place] [address] Creatinine [Mass/Vol] 1.29 mg/dL Normal 0.60-1.30 [facility] Comment on above: Result Comment: METH OD TRACEABLE TO IDMS STANDARD Performed By: #### C BCA, BMP #### [facility] ([id number]) [address], [address] [place] [address] GFR/1.73 sq M.predicted among non-blacks MDRD (S/P/Bld) [Vol rate/Area] 55 mL/min/{1.73_m2} Low >59 [facility] Comment on above: Result Comment: Reported eGFR is based on the CKD-EPI 2020 equation that does not use a race coefficient. Performed By: #### C LUCIA, BMP #### [facility] ([id number]) [address], [address] [place] [address] Glucose [Mass/Vol] 96 mg/dL Normal 65-99 [facility] Comment on above: Performed By: #### C LUCIA, BMP #### [facility] ([id number]) [address], [address] [place] [address] Potassium [Moles/Vol] 4.3 mmol/L Normal 3.5-5.0 [facility] Comment on above: Performed By: #### C LUCIA, BMP #### [facility] ([id number]) [address], [address] [place] [address] Sodium [Moles/Vol] 140 mmol/L Normal 134-146 [facility] Comment on above: Performed By: #### C LUCIA, BMP #### [facility] ([id number]) [address], [address] [place] [address] Urea nitrogen [Mass/Vol] 16 mg/dL Normal 5-27 [facility] Comment on above: Performed By: #### C BCA, BMP #### [facility] ([id number]) [address], [address] [place] [address] CBC AND AUTO DIFFon 03-14-20 24 ABSOLUTE BASOPHIL 0.1 X10E9/L Normal 0.0-0.2 [facility] Comment on above: Performed By: #### C BCA, BMP #### [facility] ([id number]) [address] [place] [address] ABSOLUTE NEUTROPHIL 6.3 X10E9/L Normal 1.5-6.6 [facility] Comment on above: Performed By: #### C BCA, BMP #### [facility] ([id number]) [address], [address] [place] [address] Basophils/100 WBC (Bld) 0.7 % Normal [facility] Comment on above: Performed By: #### C BCA, BMP #### [facility] ([id number]) [address], [address] [place] [address] Eosinophils (Bld) [#/Vol] 0.2 10*3/uL Normal 0.0-0.4 [facility] Comment on above: Performed By: #### C LUCIA, BMP #### [facility] ([id number]) [address], [address] [place] [address] Eosinophils/100 WBC (Bld) 2.5 % Normal [facility] Comment on above: Performed By: #### C LUCIA, BMP #### [facility] ([id number]) [address], [address] [place] [address] Erythrocyte distribution width (RBC) [Ratio] 14.4 % Normal 11.5-15.0 [facility] Comment on above: Performed By: #### C LUCIA, BMP #### [facility] ([id number]) [address], [address] [place] [address] Hematocrit (Bld) [Volume fraction] 35.0 % Low 39-49 [facility] Comment on above: Performed By: #### C LUCIA, BMP #### [facility] ([id number]) [address], [address] [place] [address] Hemoglobin (Bld) [Mass/Vol] 12.0 g/dL Low 13.0-17.0 [facility] Comment on above: Performed By: #### C BCA, BMP #### [facility] ([id number]) [address], [address] [place] [address] Lymphocytes (Bld) [#/Vol] 0.7 10*3/uL Low 1.0-3.5 [facility] Comment on above: Performed By: #### C BCA, BMP #### [facility] ([id number]) [address], [address] [place] [address] Lymphocytes/100 WBC (Bld) 8.4 % Normal [facility] Comment on above: Performed By: #### C BCA, BMP #### [facility] ([id number]) [address], [address] [place] [address] MCH (RBC) [Entitic mass] 36.3 pg High 27-34 [facility] Comment on above: Performed By: #### C BCA, BMP #### [facility] ([id number]) [address], [address] [place] [address] MCHC (RBC) [Mass/Vol] 34.4 g/dL Normal 32-36 [facility] Comment on above: Performed By: #### C BCA, BMP #### [facility] ([id number]) [address], [address] [place] [address] MCV (RBC) [Entitic vol] 106 fL High 80-100 P [facility] Comment on above: Performed By: #### C BCA, BMP #### [facility] ([id number]) [address], [address] [place] [address] Monocytes (Bld) [#/Vol] 1.4 10*3/uL High 0-0.9 [facility] Comment on above: Performed By: #### C BCA, BMP #### [facility] ([id number]) [address], [address] [place] [address] Monocytes/100 WBC (Bld) 15.6 % Normal P [facility] Comment on above: Performed By: #### C BCA, BMP #### [facility] ([id number]) [address] [address] Neutrophils/100 WBC (Bld) 72.8 % Normal [facility] Comment on above: Performed By: #### C LUCIA, BMP #### [facility] ([id number]) [address], [address] [address] Platelet mean volume (Bld) [Entitic vol] 8.4 fL Normal 7-12 [facility] Comment on above: Performed By: #### C LUCIA, BMP #### [facility] ([id number]) [address] [address] Platelets (Bld) [#/Vol] 241 10*3/uL Normal 150-450 [facility] Comment on above: Performed By: #### C LUCIA, BMP #### [facility] ([id number]) [address] [address] RBC COUNT 3.31 X10E12/L Low 4.10-5.70 [facility] Comment on above: Performed By: #### C LUCIA, BMP #### [facility] ([id number]) [address] [address] WBC (Bld) [#/Vol] 8.7 10*3/uL Normal 4.0-11.0 [facility] Comment on above: Performed By: #### Lexis MYERS, BMP #### [facility] ([id number]) [address], [address] [address] NUC STRESS LEXISCANon 2023 NUC STRESS LEXISCAN NUC STRESS LEXISCAN NUC STRESS LEXISCAN: 03/14/2024 9:33 AM EXAM: NUCLEAR CARDIAC STRESS TEST - LEXISCAN Clinical: Chest pain Procedure: Lexiscan stress test performed. SPECT imaging performed after Lexiscan administration and delayed with IV administration of 10.7 mCi and 31.6 mCi technetium labelled sestamibi. CT attenuation correction performed: Yes. Findings: Transient ischemic dilatation ratio (TID) is 1.09. No significant perfusion defects are seen . On gated analysis, no focal wall motion abnormality is identified. LVEF is 61 %. Impression: * Low-risk for a cardiovascular event. For reference: Low risk for cardiovascular event a-normal or small myocardial perfusion defect with stress <10% total myocardium b-no high risk findings such as severe LV dysfunction c-normal study Intermediate risk for cardiovascular event a-LV resting dysfunction EF 35-50% b-moderate sized perfusion defect without high risk features (10-20% total myocardium) High risk for cardiovascular event a-EF <35% at rest b-severe exercise induced LV dysfunction c-stress induced large perfusion defect >20% myocardium d-multiple moderate sized stress induced perfusion defects e-large, fixed defect with LV dilation f-stress induced moderate perfusion defect with LV dilation TID > 1.24 - increased. Possible balanced CAD. Finalized by Ulices Dodd MD on 03/14/2024 11:53 AM Normal [facility] CBC AND AUTO DIFFon 03-12-20 ABSOLUTE BASOPHIL 0.1 X10E9/L Normal 0.0-0.2 [facility] Comment on above: Performed By: #### C EDIL MYERS, 06231-7, 23863-7, 43449-7 #### [facility] ([id number]) [address] [place] [address] ABSOLUTE NEUTROPHIL 10.2 X10E9/L High 1.5-6.6 [facility] Comment on above: Performed By: #### C LUCIA BMP, 63235-0, 72651-1, 24237-4 #### [facility] ([id number]) [address] [place] [address] Basophils/100 WBC (Bld) 0.6 % Normal [facility] Comment on above: Performed By: #### C LUCIA BMP, 16043-5, 10801-6, 97991-5 #### [facility] ([id number]) [address] [place] [address] Eosinophils (Bld) [#/Vol] 0.1 10*3/uL Normal 0.0-0.4 [facility] Comment on above: Performed By: #### C BCA, BMP, 55975-5, 72214-7, 09702-8 #### [facility] ([id number]) [address] [place] [address] Eosinophils/100 WBC (Bld) 1.0 % Normal [facility] Comment on above: Performed By: #### C BCA, BMP, 01561-0, 93105-2, 79793-0 #### [facility] ([id number]) [address] [place] [address] Erythrocyte distribution width (RBC) [Ratio] 14.6 % Normal 11.5-15.0 [facility] Comment on above: Performed By: #### Lexis BCA, BMP, 86079-0, 05233-6, 64081-7 #### [facility] ([id number]) [address] [place] [address] Hematocrit (Bld) [Volume fraction] 38.2 % Low 39-49 [facility] Comment on above: Performed By: #### C BCA, BMP, 28769-4, 28655-4, 74464-0 #### [facility] ([id number]) [address] [place] [address] Hemoglobin (Bld) [Mass/Vol] 13.1 g/dL Normal 13.0-17.0 [facility] Comment on above: Performed By: #### C BCA, BMP, 19057-4, 88174-9, 78393-6 #### [facility] ([id number]) [address] [place] [address] Lymphocytes (Bld) [#/Vol] 1.1 10*3/uL Normal 1.0-3.5 [facility] Comment on above: Performed By: #### C BCA, BMP, 92578-3, 16590-2, 69949-9 #### [facility] ([id number]) [address] [place] [address] Lymphocytes/100 WBC (Bld) 8.3 % Normal [facility] Comment on above: Performed By: #### C BCA, BMP, 56551-4, 80160-4, 47921-6 #### [facility] ([id number]) [address] [place] [address] MCH (RBC) [Entitic mass] 36.0 pg High 27-34 [facility] Comment on above: Performed By: #### C BCA, BMP, 35123-9, 37256-8, 47824-2 #### [facility] ([id number]) [address] [place] [address] MCHC (RBC) [Mass/Vol] 34.2 g/dL Normal 32-36 [facility] Comment on above: Performed By: #### C BCA, BMP, 30733-7, 76931-1, 58098-2 #### [facility] ([id number]) [address] [place] [address] MCV (RBC) [Entitic vol] 105 fL High 80-100 [facility] Comment on above: Performed By: #### Lexis MYERS, BMP, 04046-2, 60578-6, 83366-5 #### [facility] ([id number]) [address] [place] [address] Monocytes (Bld) [#/Vol] 1.8 10*3/uL High 0-0.9 [facility] Comment on above: Performed By: #### C BCA, BMP, 60959-2, 40516-6, 46940-3 #### [facility] ([id number]) [address] [place] [address] Monocytes/100 WBC (Bld) 13.7 % Normal [facility] Comment on above: Performed By: #### C BCA, BMP, 50355-4, 08817-4, 99982-8 #### [facility] ([id number]) [address] [place] [address] Neutrophils/100 WBC (Bld) 76.4 % Normal [facility] Comment on above: Performed By: #### Lexis BCA, BMP, 32105-9, 50713-0, 12785-2 #### [facility] ([id number]) [address] [place] [address] Platelet mean volume (Bld) [Entitic vol] 9.2 fL Normal 7-12 [facility] Comment on above: Performed By: #### Lexis BCA, BMP, 43293-6, 89081-2, 16348-0 #### [facility] ([id number]) [address] [place] [address] Platelets (Bld) [#/Vol] 250 10*3/uL Normal 150-450 [facility] Comment on above: Performed By: #### Lexis BCA, BMP, 89895-5, 48860-5, 47376-2 #### [facility] ([id number]) [address] [place] [address] RBC COUNT 3.64 X10E12/L Low 4.10-5.70 [facility] Comment on above: Performed By: #### Lexis BCA, BMP, 45477-3, 50086-5, 83527-6 #### [facility] ([id number]) [address] [place] [address] RBC morphology finding Nom (Bld) REVIEWED Normal [facility] Comment on above: Performed By: #### Lexis BCA, BMP, 20406-3, 08155-1, 33055-3 #### [facility] ([id number]) [address] [place] [address] WBC (Bld) [#/Vol] 13.3 10*3/uL High 4.0-11.0 [facility] Comment on above: Performed By: #### C BCA, BMP, 27870-8, 26223-4, 70445-3 #### [facility] ([id number]) [address] [place] [address] COMPREHENSIVE METABOLIC PANE Robin 03-12-2024 Albumin [Mass/Vol] 3.3 g/dL Normal 3.2-5.3 [facility] Comment on above: Performed By: #### C BCA, BMP, 34641-8, 55387-1, 58250-8 #### [facility] ([id number]) [address] [place] [address] ALP [Catalytic activity/Vol] 108 U/L Normal 39-130 [facility] Comment on above: Performed By: #### C BCA, BMP, 11062-0, 52882-9, 61728-9 #### [facility] ([id number]) [address] [place] [address] ALT [Catalytic activity/Vol] 21 U/L Normal 0-40 [facility] Comment on above: Performed By: #### C BCA, BMP, 78145-5, 36874-0, 35105-8 #### [facility] ([id number]) [address] [place] [address] Anion gap [Moles/Vol] 10 mmol/L Normal 5-15 [facility] Comment on above: Performed By: #### C BCA, BMP, 98641-3, 85082-5, 35711-1 #### [facility] ([id number]) [address] [place] [address] AST [Catalytic activity/Vol] 29 U/L Normal 0-41 [facility] Comment on above: Performed By: #### C BCA, BMP, 74393-9, 15492-5, 97554-3 #### [facility] ([id number]) [address] [place] [address] Bilirubin [Mass/Vol] 0.5 mg/dL Normal 0.3-1.2 [facility] Comment on above: Performed By: #### C BCA, BMP, 34038-3, 57423-2, 48879-9 #### [facility] ([id number]) [address] [place] [address] Calcium [Mass/Vol] 8.9 mg/dL Normal 8.5-10.5 [facility] Comment on above: Performed By: #### C BCA, BMP, 32970-4, 99552-8, 88577-6 #### [facility] ([id number]) [address] [place] [address] Chloride [Moles/Vol] 99 mmol/L Normal 98-109 [facility] Comment on above: Performed By: #### C BCA, BMP, 05971-5, 45529-0, 48824-8 #### [facility] ([id number]) [address] [place] [address] CO2 [Moles/Vol] 24 mmol/L Normal 22-32 [facility] Comment on above: Performed By: #### C BCA, BMP, 85697-1, 23125-9, 40403-9 #### [facility] ([id number]) [address] [place] [address] Creatinine [Mass/Vol] 1.41 mg/dL High 0.70-1.20 [facility] Comment on above: Result Comment: METH OD TRACEABLE TO IDMS STANDARD Performed By: #### C BCA, BMP, 61101-7, 81929-4, 99729-2 #### [facility] ([id number]) [address] [place] [address] GFR/1.73 sq M.predicted among non-blacks MDRD (S/P/Bld) [Vol rate/Area] 50 mL/min/{1.73_m2} Low >59 [facility] Comment on above: Result Comment: Reported eGFR is based on the CKD-EPI 2020 equation that does not use a race coefficient. Performed By: #### C BCA, BMP, 89555-2, 03763-9, 35214-2 #### [facility] ([id number]) [address] [place] [address] Glucose [Mass/Vol] 125 mg/dL High 65-99 [facility] Comment on above: Performed By: #### C BCA, BMP, 93255-1, 97660-8, 10564-1 #### [facility] ([id number]) [address] [place] [address] Potassium [Moles/Vol] 4.0 mmol/L Normal 3.5-5.0 [facility] Comment on above: Performed By: #### C BCA, BMP, 78262-2, 43113-8, 32621-5 #### [facility] ([id number]) [address] [place] [address] Protein [Mass/Vol] 7.4 g/dL Normal 6.0-8.0 [facility] Comment on above: Performed By: #### C BCA, BMP, 18809-3, 01129-3, 23917-7 #### [facility] ([id number]) [address] [place] [address] Sodium [Moles/Vol] 133 mmol/L Low 134-146 [facility] Comment on above: Performed By: #### C BCA, BMP, 61173-9, 02648-1, 16302-7 #### [facility] ([id number]) [address] [place] [address] Urea nitrogen [Mass/Vol] 23 mg/dL Normal 5-27 [facility] Comment on above: Performed By: #### C BCA, BMP, 40872-7, 66791-6, 61310-0 #### [facility] ([id number]) [address] [place] [address], [place] [address] CT BRAIN WO CONTon CT BRAIN WO CONT CT BRAIN WO CONT STUDY: CT HEAD WITHOUT CONTRAST CLINICAL HISTORY: Head trauma, minor (Age >= 65y) acute head pain. Head trauma. COMPARISON: None. TECHNIQUE: CT head was performed without contrast utilizing 2.5 mm axial reconstruction with images reviewed in bone and brain windows. Automated exposure control was utilized. FINDINGS: There is no intracranial mass, mass effect or shift of midline structures. There is generalized age-related brain volume loss and compensatory enlargement of the cortical sulci and ventricular system. There is no CT evidence of large vessel vascular distribution of acute infarct or acute ischemia appreciated. There is basal cisterns. No CT evidence of large vessel vascular distribution of acute infarct or acute ischemia. The midline structures appear to be unremarkable. Please note, MRI is more sensitive for the evaluation of acute or occult process is indicated. Mild prominence of the ventricular system relative to the cortical sulci could be seen in the setting normal pressure hydrocephalus. Mild mucosal thickening of the sphenoid sinus. IMPRESSION: 1. No evidence of an acute intracranial process. 2. Some features of normal pressure hydrocephalus are noted. Clinical correlation is recommended. If concern for normal pressure hydrocephalus, nuclear medicine cisternogram could be considered. All CT scans at this facility use dose modulation, iterative reconstruction, and/or weight based dosing when appropriate to reduce radiation dose to as low as reasonably achievable. Finalized by Elliot Patino MD on 03/12/2024 3:52 PM Normal [facility] CT CERVICAL SPINE WO CONTon 03-12-2024 CT CERVICAL SPINE WO CONT CT CERVICAL SPINE WO CONT CT CERVICAL SPINE WO CONT CLINICAL HISTORY: History of fall today. Patient is complaining of back pain. COMPARISON: None TECHNIQUE: Axial views were obtained at 3 mm interval from the skull base down to T2 level. Coronal and sagittal MPR reconstructions were performed at 1 mm interval. FINDINGS: There is preservation of the vertebral body heights. No fractures or dislocations are seen. The alignment of the cervical spine is normal with straightening and loss of the normal lordosis likely from muscle spasm. Bilateral facet joint disease and multilevel anterior bony spurring most significant at C 5-6. The craniocervical junction and atlantoaxial alignments are within normal limits with bony spurring at C1-2 anteriorly and superiorly. The prevertebral soft tissues are within normal limits. The paraspinous soft tissues are within normal limits. The lung apices are unremarkable. Mucoperiosteal thickening in the sphenoid sinus suggesting chronic sphenoid sinus disease and vascular calcifications at the carotid bulbs bilaterally. Right IJ central line. Decreased height of partially visualized at T2 with lucent line seen worrisome for nondisplaced compression fractures. Please refer to thoracic spine CT report for full details. Hypertrophic changes of the left sternal clavicular joint IMPRESSION: * Suggestion of T2 compression fracture with mild wedging and moderate multilevel cervical spondylosis with straightening and loss of the normal lordosis likely from muscle spasm. No cervical spine fractures.. Finalized by Chica Song MD on 03/12/2024 6:54 PM Normal [facility] CT CTA CHESTon 03-12-[address] CTA CHEST Indication: Positive d-dimer generalized weakness syncope. History of multiple myeloma. TECHNIQUE: Enhanced CTA of the chest is performed utilizing 100 mL IV Omnipaque 350 contrast medium. Multiple 3-D maximum intensity projection images are rendered and reviewed. Comparison is made to prior exam dated 06/04/2023. FINDINGS: There is mild dilatation of proximal descending thoracic aorta slightly increased since prior exam 3.5 cm transverse. Milder dilatation remainder of the ascending aorta unchanged. Ascending aorta shows normal caliber. Left atrial appendage occlusion device unchanged with no definite opacification of left atrial appendage. Pulmonary outflow tract is not dilated. Images through upper most abdomen appear grossly unremarkable. No significant mediastinal or hilar lymphadenopathy identified. No pulmonary emboli seen. Bone windows show significant interval improvement of previously noted left manubrial lesion. Posterior left ninth rib lesion appears unchanged. Remote left pathologic left clavicular fracture without healing unchanged. No acute fracture seen. Postsurgical changes in the spine appears similar to prior exam is lucency about left T10 screw noted. There is a vertical fracture through the T2 vertebral body with minimal distraction. Healing of fracture of proximal sternal body noted new since prior exam. Lung windows show patchy lower lobe airspace process which appears greater than expected for posterior dependent atelectasis but similar to prior exam. Patchy airspace process left upper lobe peripherally new since prior exam. Patchy airspace process right upper lobe posteriorly similar to prior exam appears fairly linear. Filling defect within right main bronchus probably mucous. Bronchial wall thickening within lower lobe region. IMPRESSION: 1. Acute vertical fracture of T2 vertebral body with mild distraction may be unstable teardrop type fracture. 2. Patchy airspace process of both lower lobe similar to prior exam mildly combination of atelectasis pneumonitis. Mild patchy airspace process of left upper lobe peripherally. Etiology such as Covid not excluded. 3. Significant interval improvement in previously noted left manubrial mass with unchanged left posterior ninth rib lesion. 4. Filling defect within right main bronchus probably mucus. Lower lobe bronchial wall thickening may be edema or inflammation. The heart does not appear significantly enlarged. 5. Mild dilatation descending thoracic aorta slightly increased proximally since 06/04/2023. 6. Healing sternal fracture without displacement new since prior exam. All CT scans at this facility use dose modulation, iterative reconstruction, and/or weight based dosing when appropriate to reduce radiation dose to as low as reasonably achievable. Finalized by Laura Moon MD on 03/12/2024 5:49 PM Normal [facility] CT LUMBAR SPINE WO CONTon CT LUMBAR SPINE WO CONT CT LUMBAR SPINE WO CONT Noncontrast lumbar spine CT on 03/12/2024 Provided history: Lumbar plexopathy, status post fall Comparison: CT abdomen and pelvis 02/12/2018 Technique: Multiple contiguous 2.5 mm axial images of the lumbar spine were obtained. Coronal and sagittal reconstructions were performed. Automated exposure control was utilized. Findings: Osseous structures are diffusely demineralized. Vertebral body height and alignment is unchanged with compression deformity of the L3 vertebral body. Lumbarization of the first sacral element with a rudimentary disc at S1-S2. Multilevel degenerative disc disease with loss of normal disc height and vacuum disc phenomenon. Significant lower lumbar facet arthropathy. No spondylolysis. Significant narrowing of the left L3-L4, bilateral L4-L5 and bilateral L5-S1 neural foramina. Partially visualized thoracic fusion hardware. Spondylosis of the left sacroiliac joint. 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 IMPRESSION: * No acute osseous abnormality. * Multilevel degenerative changes as detailed. All CT scans at this facility use dose modulation, iterative reconstruction, and/or weight based dosing when appropriate to reduce radiation dose to as low as reasonably achievable. Finalized by Jimenez Bates MD on 03/12/2024 7:01 PM Normal [facility] CT THORACIC SPINE WO CONTon 03-12-2024 CT THORACIC SPINE WO CONT CT THORACIC SPINE WO CONT CT THORACIC SPINE WO CONT HISTORY: History of fall today. Patient is complaining of back pain COMPARISON: None TECHNIQUE: Unenhanced axial images of the thoracic spine obtained . Automatic exposure control (AEC) was utilized. FINDINGS: Fracture: Lucent lines are visualized in the anterior vertebral body of T2 with mild wedging suggesting acute compression fracture with adjacent soft tissue thickening suggesting small prevertebral hematoma Cervical spine: Visualized part of the lower cervical spine appeared unremarkable apart from bony spurring. Right subclavian permanent port in place. Hypertrophic changes of the left sternoclavicular joint suggesting severe degenerative arthritis. There is lytic changes seen in the manubrium worrisome for metastatic disease with areas of cortical thickening in the body of the sternum and possibility of sclerotic metastasis may also be considered. Correlation was tumor history is suggested. Posterior lower thoracic spine hardware fixation with transpedicular screws. Destructive changes are also seen in the left posterior ninth rib with expansion suggesting lytic metastatic lesion and also destructive changes and lytic changes in the adjacent T9 vertebral body and posterior elements. Parenchymal opacities in the dependent portions of bilateral lungs which is worrisome for aspiration pneumonia. Upper abdominal viscera revealed contrast within the collecting system of the kidneys from prior chest CTA. No other acute abnormalities in the upper abdomen. There is watchman device seen in the left atrial appendage and stent in the LAD. IMPRESSION: * T2 compression fracture with small prevertebral hematoma. * Multiple lytic and sclerotic areas within the thoracic cage worrisome for bony metastasis as listed above. * Bilateral posterior consolidation worrisome for aspiration pneumonia. All CT scans at this facility use dose modulation, iterative reconstruction, and/or weight based dosing when appropriate to reduce radiation dose to as low as reasonably achievable. Finalized by Chica Song MD on 03/12/2024 7:04 PM Normal [facility] Fibrin D-dimer DDU (PPP) [Ma ss/Vol]on 03-12-2024 D DIMER 4575 ng/mL DDU High <255 [facility] Comment on above: Result Comment: Results >=255ng/mL DDU: Results may be indicative of the presence of VTE. The use of the Wells score and further diagnostic tests should be considered. Elevated D-Dimer levels can also be associated with DIC, neoplasm, , trauma and liver disease. Elevated levels of rheumatoid factor may lead to an overestimation of the D-Dimer level. Performed By: #### C BCA, BMP, 38093-4, 60202-4, 88851-3 #### [facility] ([id number]) [address] [place] [address] MAGNESIUMon 03-12-2024 Magnesium [Mass/Vol] 2.1 mg/dL Normal 1.8-2.6 [facility] Comment on above: Performed By: #### C BCA, BMP, 71623-8, 99804-5, 15914-9 #### [facility] ([id number]) [address] [place] [address] SARS/FLU A+B/RSV by NAAT/Mol ecularon 03-12-2024 SARS/FLU A+B/RSV by NAAT/Molecular FLU A PCR Negative (qualifier value) FLU B PCR Negative (qualifier value) RSV by PCR Negative (qualifier value) SARS CoV 2 Not detected (qualifier value) NOTE The Xpert Xpress SARS-CoV-2/Flu/RSV Plus test is a rapid, multiplexed real-time RT-PCR test intended for the simultaneous qualitative detection and differentiation of SARS-CoV-2, influenza A, influenza B and respiratory syncytial virus (RSV) viral RNA from individuals suspected of respiratory viral infection consistent with COVID-19 by their healthcare provider. This test has not been validated in asymptomatic patients. The Xpert Xpress SARS-CoV-2 test is intended for use by qualified and trained operators who are performing tests using either Sococo DX or Meuugame systems and is limited to laboratories that meet the CLIA requirements to perform high and moderate complexity tests. The Xpert Xpress SARS-CoV-2/Flu/RSV Plus is only for use under the Food and Drug Administration's Emergency Use Authorization. Results are for the simultaneous detection and differentiation of SARS-CoV-2, influenza A, influenza B and RSV nucleic acids in clinical specimens. SARS-CoV-2, influenza A, influenza B and RSV RNA identified by this test are generally detectable in upper respiratory samples during the acute phase of infection. Positive results are indicative of the presence of the identified virus, but do not rule out bacterial infection or co-infection with other pathogens not detected by this test. Clinical correlation with patient history and other diagnostic information is necessary to determine patient infection status. The agent detected may not be the definite cause of disease. Negative results do not preclude SARS-CoV-2, influenza A, influenza B and RSV infection and should not be used as the sole basis for treatment or other patient management decisions. Negative results must be combined with clinical observations, patient history and epidemiological information. An Invalid result may occur with specimen-associated inhibition unable to be resolved with specimen repeat. Fact Sheet for Healthcare Providers: https://www.fda.gov/m edia/064148/download Fact Sheet for Patients: https://www.fda.gov/m edia/069589/download Normal [facility] Comment on above: Performed By: #### C BCA, BMP, 82968-5, 03181-8, 31490-2 #### [facility] ([id number]) [address] [place] [address] Troponin I.cardiac High sens itivity method [Mass/Vol]on 03-12-2024 1 HOUR TROP I, HIGH SENSITIVITY 5 ng/L Normal <21 [facility] Comment on above: Performed By: #### C BCA, BMP, 22076-7, 36778-1, 29696-5 #### [facility] ([id number]) [address] [place] [address] TROPONIN I, HIGH SENSITIVITY 5 ng/L Normal <21 [facility] Comment on above: Performed By: #### C BCA, BMP, 81255-9, 89283-0, 58611-0 #### [facility] ([id number]) [address] [place] [address]65[address] URN MACROSCOPIC NURon 2023 BILIRUBIN BOOKER Negative Normal NEG [facility] Comment on above: Performed By: #### C BCA, BMP, 29782-9, 08991-8, 25035-2 #### [facility] ([id number]) [address] [place] [address] BLOOD/HGB BOOKER Trace Abnormal NEG [facility] Comment on above: Performed By: #### C BCA, BMP, 14633-7, 04708-3, 86953-6 #### [facility] ([id number]) [address] [place] [address] 89498 GLUCOSE BOOKER Negative Normal NEG [facility] Comment on above: Performed By: #### C BCA, BMP, 70751-4, 57734-6, 23280-4 #### [facility] ([id number]) [address] [place] [address] [place] [address] KETONES BOOKER Trace Abnormal NEG [facility] Comment on above: Performed By: #### C BCA, BMP, 25206-0, 36438-2, 75344-4 #### [facility] ([id number]) [address] [place] [address] [place] [address] LEUKOCYTE ESTERASE BOOKER Negative Normal NEG [facility] Comment on above: Performed By: #### C BCA, BMP, 89329-4, 85005-7, 81491-4 #### [facility] ([id number]) [address] [place] [address]9083 NITRITE BOOKER Negative Normal NEG [facility] Comment on above: Performed By: #### C BCA, BMP, 04647-4, 49109-7, 51716-7 #### [facility] ([id number]) [address] [place] [address] 61761 PH BOOKER 5.5 Normal 5.0-8.5 [facility] Comment on above: Performed By: #### C BCA, BMP, 33832-0, 27220-2, 67085-5 #### [facility] ([id number]) [address] [place] [address] PROTEIN BOOKER Negative Normal NEG [facility] Comment on above: Performed By: #### C BCA, BMP, 49135-3, 66201-0, 16233-5 #### [facility] ([id number]) [address] [place] [address] SPECIFIC GRAVITY BOOKER 1.025 Normal 1.003-1.035 [facility] Comment on above: Performed By: #### C BCA, BMP, 97319-3, 79169-3, 53105-3 #### [facility] ([id number]) [address] [place] [address] UROBILINOGEN BOOKER 0.2 eu/dL Normal <1.1 [facility] Comment on above: Performed By: #### C BCA, BMP, 70487-9, 30602-7, 83028-9 #### [facility] ([id number]) [address] [place] [address] 98108 XR CHEST 1 VWon 03-12-2024 XR CHEST 1 VW XR CHEST 1 VW HISTORY: An 84-year-old male with the history of the syncope. EXAM/TECHNIQUE: CHEST: Portable upright AP view COMPARISON: Comparison is made with the chest radiograph of 11/13/2020. FINDINGS: Both lungs and costophrenic angles are clear. There is no evidence of pulmonary infiltrate or acute pulmonary pathology. The cardiac silhouette is within normal limits. A Port-A-Cath is in place. The trachea is in midline. The mediastinum is otherwise unremarkable. The hemidiaphragms are normal in position. There is a spinal fusion in the thoracolumbar region with fixation hardware. The bony rib cage is intact. IMPRESSION: * No evidence of pulmonary infiltrate or acute pulmonary pathology. Finalized by Jerod Padilla MD on 03/12/2024 4:03 PM Normal [facility] PSA, Diagnosticon 03-11-2024 Interpretation and review of laboratory results Abnormal [facility] Prostate specific Ag [Mass/Vol] 15.30 ng/mL High 0.00 - 4.00 ng/mL [facility] Comment on above: The Viv ECLIA as say is used. Results obtained with different assay methods cannot be used interchangeably. [facility] Prostatic Spec. Ag 15.30 ng/mL High 0.00-4.00 [facility] Comment on above: Result Comment: The Viv ECLIA assay is used. Results obtained with different assay methods cannot be used interchangeably. Performed By: #### P SAD #### [facility] [address] [place] [address] Service Unit Operator [employer]: Brennan Daniel [facility]-2024 CNPN Normal [facility] Albumin [Mass/volume] in Ser um or Plasmaon 02-20-2024 Albumin [Mass/Vol] 3.33 g/dL Low 3.43-5.41 [facility] Comment on above: Order Comment: Speci men Type: BLOOD SPECIMENOrdering Facility: [facility] Address: [address] [place] [address] Performed By: #### L [id number] ####[facility] LABCLIA [id number] [place] [address] [place] B2 Microglob SerPl-mCncon Eqsx-5-Mnpmoabyckboj [Mass/Vol] 3.4 ug/mL High <3.1 [facility] Comment on above: Order Comment: Speci men Type: BLOOD SPECIMENOrdering Facility: [facility] Address: [address] [place] [address] Result Comment: Beta -2 Microglobulin test is performed using the [employer] immunoturbidimetric method. Results obtained with different methods or kits cannot be used interchangeably. Performed By: #### 2 885-2, 195- ####[facility] LABCLIA [id number] [place] [address] [place] Basophils Auto (Bld) [#/Vol] on 02-20-2024 Basophils (Bld) [#/Vol] 0.07 10*3/uL <0.11 [facility] Basophils/100 WBC Auto (Bld) on 02-20-2024 Basophils/100 WBC (Bld) 0.8 % F [facility] Blood manual differential co mment interpretation narrativeon 02-20-2024 Manual differential comment Aashish (Bld) [Interp] Auto [facility] CBC W Auto Differential pane l (Bld)on 02-20-2024 Basophils (Bld) [#/Vol] 0.07 10*3/uL [facility] Basophils/100 WBC (Bld) 0.8 % C [facility] Differential cell count method Nom (Bld) Auto [facility] Eosinophils (Bld) [#/Vol] 0.39 10*3/uL [facility] Eosinophils/100 WBC (Bld) 4.4 % [facility] Erythrocyte distribution width (RBC) [Ratio] 15.5 % High 11.5 - 15.0 % [facility] Hematocrit (Bld) [Volume fraction] 37.2 % Low 39.0 - 51.0 % [facility] Hemoglobin (Bld) [Mass/Vol] 12.8 g/dL Low 13.0 - 17.0 g/dL [facility] Immature granulocytes (Bld) [#/Vol] 0.04 10*3/uL [facility] Immature granulocytes/100 WBC (Bld) 0.4 % [facility] Interpretation and review of laboratory results Abnormal [facility] Lymphocytes (Bld) [#/Vol] 1.37 10*3/uL [facility] Lymphocytes/100 WBC (Bld) 15.4 % [facility] MCH (RBC) [Entitic mass] 36.0 pg High 26. 0 - 34.0 pg [facility] MCHC (RBC) [Mass/Vol] 34.4 g/dL 30.5 - 36.0 g/dL [facility] MCV (RBC) [Entitic vol] 104.5 fL High 80.0 - 100.0 fL [facility] Monocytes (Bld) [#/Vol] 1.26 10*3/uL High [facility] Monocytes/100 WBC (Bld) 14.2 % C [facility] Neutrophils (Bld) [#/Vol] 5.77 10*3/uL [facility] Neutrophils/100 WBC (Bld) 64.8 % [facility] Nucleated RBC (Bld) [#/Vol] NINF [facility] Nucleated RBC/100 WBC (Bld) [Ratio] 0.0 % /100 WBC [facility] Platelet mean volume (Bld) [Entitic vol] 10.0 fL 9.0 - 12.7 fL [facility] Platelets (Bld) [#/Vol] 283 10*3/uL [facility] RBC (Bld) [#/Vol] 3.56 10*6/uL Low 4.20 - 6.0 0 m/uL [facility] WBC (Bld) [#/Vol] 8.90 10*3/uL [facility] Basophils (Bld) [#/Vol] 0.07 10*3/uL Normal <0.11 [facility] Comment on above: Order Comment: Speci men Type: BLOOD SPECIMENOrdering Facility: [facility] Address: [address] [place] [address] Performed By: #### 5 7021-8 ####[facility] LABIA [id number] [place] [address] Basophils/100 WBC (Bld) 0.8 % Normal [facility] Comment on above: Order Comment: Speci men Type: BLOOD SPECIMENOrdering Facility: [facility] Address: [address] [place] [address] Performed By: #### 5 7021-8 ####[facility] LABCLIA [id number] [place] [address] Differential cell count method Nom (Bld) Auto Normal [facility] Comment on above: Order Comment: Speci men Type: BLOOD SPECIMENOrdering Facility: [facility] Address: [address] [place] [address] Performed By: #### 5 7021-8 ####[facility] LABCLIA [id number] [place] [address] Eosinophils (Bld) [#/Vol] 0.39 10*3/uL Normal <0.46 [facility] Comment on above: Order Comment: Speci men Type: BLOOD SPECIMENOrdering Facility: [facility] Address: [address] [place] [address] Performed By: #### 5 7021-8 ####[facility] LABCLIA [id number] [place] [address] Eosinophils/100 WBC (Bld) 4.4 % Normal [facility] Comment on above: Order Comment: Speci men Type: BLOOD SPECIMENOrdering Facility: [facility] Address: [address] [place] [address] Performed By: #### 5 7021-8 ####[facility] LABCLIA [id number] [place] [address] Erythrocyte distribution width (RBC) [Ratio] 15.5 % High 11.5-15.0 [facility] Comment on above: Order Comment: Speci men Type: BLOOD SPECIMENOrdering Facility: [facility] Address: [address] [place] [address] Performed By: #### 5 7021-8 ####[facility] LABCLIA [id number] [place] [address] Hematocrit (Bld) [Volume fraction] 37.2 % Low 39.0-51.0 [facility] Comment on above: Order Comment: Speci men Type: BLOOD SPECIMENOrdering Facility: [facility] Address: [address] [place] [address] Performed By: #### 5 7021-8 ####[facility] LABCLIA [id number] [place] [address] Hemoglobin (Bld) [Mass/Vol] 12.8 g/dL Low 13.0-17.0 [facility] Comment on above: Order Comment: Speci men Type: BLOOD SPECIMENOrdering Facility: [facility] Address: [address] [place] [address] Performed By: #### 5 7021-8 ####[facility] LABCLIA [id number] [place] [address] Immature granulocytes (Bld) [#/Vol] 0.04 10*3/uL Normal <0.10 [facility] Comment on above: Order Comment: Speci men Type: BLOOD SPECIMENOrdering Facility: [facility] Address: [address] [place] [address] Performed By: #### 5 7021-8 ####[facility] LABCLIA [id number] [place] [address] Immature granulocytes/100 WBC (Bld) 0.4 % Normal [facility] Comment on above: Order Comment: Speci men Type: BLOOD SPECIMENOrdering Facility: [facility] Address: [address] [place] [address] Performed By: #### 5 7021-8 ####[facility] LABCLIA [id number] [place] [address] Lymphocytes (Bld) [#/Vol] 1.37 10*3/uL Normal 1.00-4.00 [facility] Comment on above: Order Comment: Speci men Type: BLOOD SPECIMENOrdering Facility: [facility] Address: [address] [place] [address] Performed By: #### 5 7021-8 ####[facility] LABCLIA [id number] [place] [address] Lymphocytes/100 WBC (Bld) 15.4 % Normal [facility] Comment on above: Order Comment: Speci men Type: BLOOD SPECIMENOrdering Facility: [facility] Address: [address] [place] [address] Performed By: #### 5 7021-8 ####[facility] LABCLIA [id number] [place] [address] MCH (RBC) [Entitic mass] 36.0 pg High 26.0-34.0 [facility] Comment on above: Order Comment: Speci men Type: BLOOD SPECIMENOrdering Facility: [facility] Address: [address] [place] [address] Performed By: #### 5 7021-8 ####[facility] LABCLIA [id number] [place] [address] MCHC (RBC) [Mass/Vol] 34.4 g/dL Normal 30.5-36.0 [facility] Comment on above: Order Comment: Speci men Type: BLOOD SPECIMENOrdering Facility: [facility] Address: [address] [place] [address] Performed By: #### 5 7021-8 ####[facility] LABCLIA [id number] [place] [address] MCV (RBC) [Entitic vol] 104.5 fL High 80.0-100.0 [facility] Comment on above: Order Comment: Speci men Type: BLOOD SPECIMENOrdering Facility: [facility] Address: [address] [place] [address] Performed By: #### 5 7021-8 ####[facility] LABCLIA [id number] [place] [address] Monocytes (Bld) [#/Vol] 1.26 10*3/uL High <0.87 [facility] Comment on above: Order Comment: Speci men Type: BLOOD SPECIMENOrdering Facility: [facility] Address: [address] [place] [address] Performed By: #### 5 7021-8 ####[facility] LABCLIA [id number] [place] [address] Monocytes/100 WBC (Bld) 14.2 % Normal [facility] Comment on above: Order Comment: Speci men Type: BLOOD SPECIMENOrdering Facility: [facility] Address: [address] [place] [address] Performed By: #### 5 7021-8 ####[facility] LABCLIA [id number] [place] [address] Neutrophils (Bld) [#/Vol] 5.77 10*3/uL Normal 1.45-7.50 [facility] Comment on above: Order Comment: Speci men Type: BLOOD SPECIMENOrdering Facility: [facility] Address: [address] [place] [address] Performed By: #### 5 7021-8 ####[facility] LABCLIA [id number] [place] [address] Neutrophils/100 WBC (Bld) 64.8 % Normal [facility] Comment on above: Order Comment: Speci men Type: BLOOD SPECIMENOrdering Facility: [facility] Address: [address] [place] [address] Performed By: #### 5 7021-8 ####[facility] LABCLIA [id number] [place] [address] Nucleated RBC (Bld) [#/Vol] 10*3/uL Normal <0.01 [facility] Comment on above: Order Comment: Speci men Type: BLOOD SPECIMENOrdering Facility: [facility] Address: [address] [place] [address] Performed By: #### 5 7021-8 ####[facility] LABCLIA [id number] [place] [address] Nucleated RBC/100 WBC (Bld) [Ratio] 0.0 /100 WBC Normal [facility] Comment on above: Order Comment: Speci men Type: BLOOD SPECIMENOrdering Facility: [facility] Address: [address] [place] [address] Performed By: #### 5 7021-8 ####[facility] LABIA [id number] [place] [address] Platelet mean volume (Bld) [Entitic vol] 10.0 fL Normal 9.0-12.7 [facility] Comment on above: Order Comment: Speci men Type: BLOOD SPECIMENOrdering Facility: [facility] Address: [address] [place], [place] [address] Performed By: #### 5 7021-8 ####[facility] LABCLIA [id number] [place] [address] Platelets (Bld) [#/Vol] 283 10*3/uL Normal 150-400 [facility] Comment on above: Order Comment: Speci men Type: BLOOD SPECIMENOrdering Facility: [facility] Address: [address] [place] [address] Performed By: #### 5 7021-8 ####[facility] LABIA [id number] [place] [address] RBC (Bld) [#/Vol] 3.56 10*6/uL Low 4.20-6.00 [facility] Comment on above: Order Comment: Speci men Type: BLOOD SPECIMENOrdering Facility: [facility] Address: [address] [place] [address] Performed By: #### 5 7021-8 ####[facility] LABIA [id number] [place] [address] WBC (Bld) [#/Vol] 8.90 10*3/uL Normal 3.70-11.00 [facility] Comment on above: Order Comment: Speci men Type: BLOOD SPECIMENOrdering Facility: [facility] Address: [address] [place] [address] Performed By: #### 5 7021-8 ####[facility] LABIA [id number] [place] [address] CNOVSPon 02-20-2024 CNOVSP Normal [facility] Calcium.ionized [Moles/Vol]o n 02-20-2024 Calcium.ionized (Bld) [Mass/Vol] 1.19 mmol/L Normal 1.08-1.30 [facility] Comment on above: Order Comment: Speci men Type: BLOOD SPECIMENOrdering Facility: [facility] Address: [address] [place] [address] Performed By: #### 1 995-0 ####[facility] LABCLIA [id number] [address] [place] Calcium.ionized adjusted to pH 7.4 (Bld) [Moles/Vol] 1.23 mmol/L Normal 1.08-1.30 [facility] Comment on above: Order Comment: Speci men Type: BLOOD SPECIMENOrdering Facility: [facility] Address: [address] [place] [address] Performed By: #### 1 995-0 ####[facility] LABCLIA [id number] [address] [place] Comprehensive metabolic 2000 panelOrdered By: Jacqueline Thompson on 02-20-2024 Albumin [Mass/Vol] 3.6 g/dL Low 3.9 - 4.9 g/dL [facility] ALP [Catalytic activity/Vol] 128 U/L High 38 - 113 U/L [facility] ALT [Catalytic activity/Vol] 16 U/L 10 - 54 U/L [facility] Anion gap [Moles/Vol] 9 mmol/L 8 - 15 mmol/L [facility] AST [Catalytic activity/Vol] 24 U/L 14 - 40 U/L [facility] Bilirubin [Mass/Vol] 0.2 mg/dL 0.2 - 1 .3 mg/dL [facility] Calcium [Mass/Vol] 9.1 mg/dL 8.5 - 10. 2 mg/dL [facility] Chloride [Moles/Vol] 102 mmol/L 98 - 10 7 mmol/L [facility] CO2 [Moles/Vol] 26 mmol/L 22 - 30 mmol/L [facility] Creatinine [Mass/Vol] 1.37 mg/dL High 0.73 - 1.22 mg/dL [facility] GFR/1.73 sq M.predicted among non-blacks MDRD (S/P/Bld) [Vol rate/Area] 52 mL/min/{1.73_m2} Low - PINF [facility] Comment on above: Estimated Glomerular Filtration Rate (eGFR) is calculated using the 2020 CKD-EPI creatinine equation. This equation utilizes serum creatinine, sex, and age as parameters. The creatinine assay has traceable calibration to isotope dilution-mass spectrometry. Refer to KDIGO guidelines for clinical interpretation. In patients with unstable renal function, e.g. those with acute kidney injury, the eGFR may not accurately reflect actual GFR. Glucose [Mass/Vol] 146 mg/dL High 74 - 99 mg/dL [facility] Comment on above: The [place] Di[employer] Association (ADA) provides guidance for cutoff values for fasting glucose and random glucose. The ADA defines fasting as no caloric intake for at least 8 hours. Fasting plasma glucose results between 100 to 125 mg/dL indicate increased risk for diabetes (prediabetes). Fasting plasma glucose results greater than or equal to 126 mg/dL meet the criteria for diagnosis of diabetes. In the absence of unequivocal hyperglycemia, results should be confirmed by repeat testing. In a patient with classic symptoms of hyperglycemia or hyperglycemic crisis, random plasma glucose results greater than or equal to 200 mg/dL meet the criteria for diagnosis of diabetes. Reference: Standards of Medical Care in Diabetes 2016, [place] [employer]. Diabetes Care. 2016.39(Suppl 1). Interpretation and review of laboratory results Abnormal [facility] Potassium [Moles/Vol] 4.0 mmol/L 3.7 - 5.1 mmol/L [facility] Protein [Mass/Vol] 6.8 g/dL 6.3 - 8.0 g/dL [facility] Sodium [Moles/Vol] 137 mmol/L 136 - 144 mmol/L [facility] Urea nitrogen [Mass/Vol] 21 mg/dL 9 - 24 mg/dL [facility] Comprehensive metabolic 2000 panelon 02-20-2024 Albumin [Mass/Vol] 3.6 g/dL Low 3.9-4.9 [facility] Comment on above: Order Comment: Speci men Type: BLOOD SPECIMENOrdering Facility: [facility] Address: [address] [place] [address] Performed By: #### 3 084-1, 2777-1, 2532-0, 80405-5 ####[facility] LABCLIA [id number] [place] [address] ALP [Catalytic activity/Vol] 128 U/L High 38-113 [facility] Comment on above: Order Comment: Speci men Type: BLOOD SPECIMENOrdering Facility: [facility] Address: [address] [place] [address] Performed By: #### 3 084-1, 2777-1, 2532-0, 29407-4 ####[facility] LABCLIA [id number] [place] [address] ALT [Catalytic activity/Vol] 16 U/L Normal 10-54 [facility] Comment on above: Order Comment: Speci men Type: BLOOD SPECIMENOrdering Facility: [facility] Address: [address] [place], [place] [address] Performed By: #### 3 084-1, 2777-1, 2532-0, 45207-2 ####[facility] LABIA [id number] [place] [address] Anion gap [Moles/Vol] 9 mmol/L Normal 8-15 [facility] Comment on above: Order Comment: Speci men Type: BLOOD SPECIMENOrdering Facility: [facility] Address: [address] [place] [address] Performed By: #### 3 084-1, 2777-1, 2531-0, 05291-0 ####[facility] LABIA [id number] [place] [address] AST [Catalytic activity/Vol] 24 U/L Normal 14-40 [facility] Comment on above: Order Comment: Speci men Type: BLOOD SPECIMENOrdering Facility: [facility] Address: [address] [place] [address] Performed By: #### 3 084-1, 2777-1, 2532-0, 95804-7 ####[facility] LABIA [id number] [place] [address] Bilirubin [Mass/Vol] 0.2 mg/dL Normal 0.2-1.3 [facility] Comment on above: Order Comment: Speci men Type: BLOOD SPECIMENOrdering Facility: [facility] Address: [address] [place], [place] [address] Performed By: #### 3 084-1, 2777-1, 2532-0, 37046-2 ####[facility] LABCLIA [id number] [place] [address] Calcium [Mass/Vol] 9.1 mg/dL Normal 8.5-10.2 [facility] Comment on above: Order Comment: Speci men Type: BLOOD SPECIMENOrdering Facility: [facility] Address: [facility] [place] [id number] Performed By: #### 3 084-1, 2777-1, 2532-0, 03004-0 ####[facility] LABCLIA [id number] [place] [address] Chloride [Moles/Vol] 102 mmol/L Normal 98-107 [facility] Comment on above: Order Comment: Speci men Type: BLOOD SPECIMENOrdering Facility: [facility] Address: [facility] [place] [id number] Performed By: #### 3 084-1, 2777-1, 2532-0, 07763-1 ####[facility] LABIA [id number] [place] [address] CO2 [Moles/Vol] 26 mmol/L Normal 22-30 [facility] Comment on above: Order Comment: Speci men Type: BLOOD SPECIMENOrdering Facility: [facility] Address: [facility] [place] [id number] Performed By: #### 3 084-1, 2777-1, 2532-0, 85465-3 ####[facility] LABIA [id number] [place] [address] Creatinine [Mass/Vol] 1.37 mg/dL High 0.73-1.22 [facility] Comment on above: Order Comment: Speci men Type: BLOOD SPECIMENOrdering Facility: [facility] Address: [facility] [place] [id number] Performed By: #### 3 084-1, 2777-1, 2532-0, 60883-5 ####[facility] LABCLIA [id number] [place] [address] Creatinine and Glomerular filtration rate.predicted panel (S/P/Bld) 52 mL/min/1.73m??? Low >=60 [facility] Comment on above: Order Comment: Ever duran Type: BLOOD SPECIMENOrdering Facility: [facility] Address: [address] [place] [address] Result Comment: Janae mated Glomerular Filtration Rate (eGFR) is calculated using the 2020 CKD-EPI creatinine equation. This equation utilizes serum creatinine, sex, and age as parameters. The creatinine assay has traceable calibration to isotope dilution-mass spectrometry. Refer to KDIGO guidelines for clinical interpretation. In patients with unstable renal function, e.g. those with acute kidney injury, the eGFR may not accurately reflect actual GFR. Performed By: #### 3 084-1, 2777-1, 2532-0, 10187-7 ####[facility] LABCLIA [id number] [place] [address] Glucose [Mass/Vol] 146 mg/dL High 74-99 [facility] Comment on above: Order Comment: Ever duran Type: BLOOD SPECIMENOrdering Facility: [facility] Address: [address] [place] [address] Result Comment: The [place] Diabetes Association (ADA) provides guidance for cutoff values for fasting glucose and random glucose. The ADA defines fasting as no caloric intake for at least 8 hours. Fasting plasma glucose results between 100 to 125 mg/dL indicate increased risk for diabetes (prediabetes).Fasting plasma glucose results greater than or equal to 126 mg/dL meet the criteria for diagnosis of diabetes. In the absence of unequivocal hyperglycemia, results should be confirmed by repeat testing. In a patient with classic symptoms of hyperglycemia or hyperglycemic crisis, random plasma glucose results greater than or equal to 200 mg/dL meet the criteria for diagnosis of diabetes.Reference: Standards of Medical Care in Diabetes 2016, [place] [employer]. Diabetes Care. 2016.39(Suppl 1). Performed By: #### 3 084-1, 2777-1, 2531-0, 76456-4 ####[facility] LABCLIA [id number] [place] [address] Potassium [Moles/Vol] 4.0 mmol/L Normal 3.7-5.1 [facility] Comment on above: Order Comment: Speci men Type: BLOOD SPECIMENOrdering Facility: [facility] Address: [address] [place], [place] [address] Performed By: #### 3 084-1, 2777-1, 253-0, ####[facility] LABCLIA [id number] [place] [address] Protein [Mass/Vol] 6.8 g/dL Normal 6.3-8.0 [facility] Comment on above: Order Comment: Speci men Type: BLOOD SPECIMENOrdering Facility: [facility] Address: [address] [place], [place] [address] Performed By: #### 3 084-1, 2777-1, 2531-0, ####[facility] LABIA [id number] [place] [address] Sodium [Moles/Vol] 137 mmol/L Normal 136-144 [facility] Comment on above: Order Comment: Speci men Type: BLOOD SPECIMENOrdering Facility: [facility] Address: [address] [place] [address] Performed By: #### 3 084-1, 2777-1, 2531-0, ####[facility] LABIA [id number] [place] [address] Urea nitrogen [Mass/Vol] 21 mg/dL Normal 9-24 [facility] Comment on above: Order Comment: Speci men Type: BLOOD SPECIMENOrdering Facility: [facility] Address: [address] [place] [address] Performed By: #### 3 084-1, 2777-1, 2531-0, 30416-4 ####[facility] LABCLIA [id number] [place] [address] Eosinophils/100 WBC Auto (Bl d)on 02-20-2024 Eosinophils/100 WBC (Bld) 4.4 % [facility] Erythrocyte distribution wid th Auto (RBC) [Ratio]on 02-20-2024 Erythrocyte distribution width (RBC) [Ratio] 15.5 % High 11.5-15.0 [facility] Hematocrit Auto (Bld) [Volum e fraction]on 02-20-2024 Hematocrit (Bld) [Volume fraction] 37.2 % Low 39.0-51.0 [facility] Hemoglobin [Mass/volume] in Bloodon 02-20-2024 Hemoglobin (Bld) [Mass/Vol] 12.8 g/dL Low 13.0-17.0 [facility] IMMUNOFIXATION SCREEN, SERUM on 02-20-2024 INTERPRETATION (MPA) Normal [facility] Comment on above: Order Comment: Speci men Type: BLOOD SPECIMENOrdering Facility: [facility] Address: [address] [place] [address] Performed By: #### I FESC ####[facility] LABCLIA [id number] [address] [place] MPA RESULT A poorly defined region of restricted mobility is present that may represent an M protein. Abnormal No M protein is identified. [facility] Comment on above: Order Comment: Speci men Type: BLOOD SPECIMENOrdering Facility: [facility] Address: [address] [place] [address] Performed By: #### I FESC ####[facility] LABCLIA [id number] [address] [place] STAFF REVIEW (MPA) Reviewed by Malou Wahl MD [facility] Comment on above: Order Comment: Speci men Type: BLOOD SPECIMENOrdering Facility: [facility] Address: [address] [place] [address] Performed By: #### I FESC ####[facility] LABCLIA [id number] [place] [address] [place] IMMUNOGLOBULINS,IGG,IGA,IGMo n 02-20-2024 IgA [Mass/Vol] 264 mg/dL Normal 70-400 [facility] Comment on above: Order Comment: Speci men Type: BLOOD SPECIMENOrdering Facility: [facility] Address: [address] [place] [address] Performed By: #### S ERIMM ####[facility] LABCLIA [id number] [place] [address] [place] IgG [Mass/Vol] 1437 mg/dL Normal 700-1600 [facility] Comment on above: Order Comment: Speci men Type: BLOOD SPECIMENOrdering Facility: [facility] Address: [address] [place] [address] Performed By: #### S ERIMM ####[facility] LABCLIA [id number] [place] [address] [place] IgM [Mass/Vol] 41 mg/dL Normal 40-230 [facility] Comment on above: Order Comment: Speci men Type: BLOOD SPECIMENOrdering Facility: [facility] Address: [address] [place] [address] Performed By: #### S ERIMM ####[facility] LABCLIA [id number] [place] [address] [place] IgA [Mass/volume] in Serum o r Plasmaon 02-20-2024 IgA [Mass/Vol] 264 mg/dL 70-400 [facility] IgG [Mass/volume] in Serum o r Plasmaon 02-20-2024 IgG [Mass/Vol] 1437 mg/dL 700-1600 [facility] IgM [Mass/volume] in Serum o r Plasmaon 02-20-2024 IgM [Mass/Vol] 41 mg/dL 40-230 [facility] Immunoglobulin light chains. kappa.free [Mass/volume] in Serumon 02-20-2024 Immunoglobulin light chains.kappa.free (S) [Mass/Vol] 50.7 mg/L High 3.3-19.4 [facility] Comment on above: Rarely, increased se rum free light chains levels may not be detected or accurately quantified due to prozone phenomenon or in high viscosity samples using this immunoturbidimetric assay. Correlation with other laboratory results and clinical findings is recommended. The [place] Free Light Chain was performed using the Binding Site Optilite immunoturbidimetric method. Result obtained with different assay methods or kits cannot be used interchangeably. Immunoglobulin light chains. kappa.free/Immunoglobulin light chains.lambda.free [Fransisca 02-20-2024 Immunoglobulin light chains.kappa.free/Immuno globulin light chains.lambda.free (S) [Mass ratio] 2.51 High 0.26-1.65 [facility] Immunoglobulin light chains. lambda.free [Mass/volume] in Serum or Plasmaon 02-20-2024 Immunoglobulin light chains.lambda.free [Mass/Vol] 20.2 mg/L 5.7-26.3 [facility] Comment on above: Rarely, increased se rum free light chains levels may not be detected or accurately quantified due to prozone phenomenon or in high viscosity samples using this immunoturbidimetric assay. Correlation with other laboratory results and clinical findings is recommended. The Lambda Free Light Chain was performed using the Binding Site Optilite immunoturbidimetric method. Result obtained with different assay methods or kits cannot be used interchangeably. KAPPA/HERNANDEZ,FREE,SERon 2023 Immunoglobulin light chains.kappa.free (S) [Mass/Vol] 50.7 mg/L High 3.3-19.4 [facility] Comment on above: Order Comment: Speci men Type: BLOOD SPECIMENOrdering Facility: [facility] Address: [address] [place] [address] Result Comment: Rare ly, increased serum free light chains levels may not be detected or accurately quantified due to prozone phenomenon or in high viscosity samples using this immunoturbidimetric assay. Correlation with other laboratory results and clinical findings is recommended.The [place] Free Light Chain was performed using the Binding Site Optilite immunoturbidimetric method. Result obtained with different assay methods or kits cannot be used interchangeably. Performed By: #### K LFRS ####[facility] LABCLIA [id number] [place] [address] [place] Immunoglobulin light chains.kappa/Immunoglobu natanael light chains.lambda (S) [Mass ratio] 2.51 High 0.26-1.65 [facility] Comment on above: Order Comment: Speci men Type: BLOOD SPECIMENOrdering Facility: [facility] Address: [address] [place] [address] Performed By: #### K LFRS ####[facility] LABIA [id number] [place] [address] [place] Immunoglobulin light chains.lambda.free [Mass/Vol] 20.2 mg/L Normal 5.7-26.3 [facility] Comment on above: Order Comment: Speci men Type: BLOOD SPECIMENOrdering Facility: [facility] Address: [address] [place] [address] Result Comment: Rare ly, increased serum free light chains levels may not be detected or accurately quantified due to prozone phenomenon or in high viscosity samples using this immunoturbidimetric assay. Correlation with other laboratory results and clinical findings is recommended.The Lambda Free Light Chain was performed using the Binding Site Optilite immunoturbidimetric method. Result obtained with different assay methods or kits cannot be used interchangeably. Performed By: #### K LFRS ####[facility] LABIA [id number] [place] [address] [place] LACTATE DEHYDROGENASEon 01-30 LDH [Catalytic activity/Vol] 255 U/L High 135 - 225 U/L [facility] Comment on above: Hemolysis present. T he origin of the hemolysis, in vitro versus an in vivo hemolytic process, cannot be distinguished via this assay alone. In vitro hemolysis may lead to non-physiological (spurious) elevation in lactate dehydrogenase (LDH) results. The result should be interpreted in context of the clinical setting and other test results. Suggest reorder as clinically indicated. LDH SerPl-cCncon 02-20-2024 LDH [Catalytic activity/Vol] 255 U/L High 135-225 [facility] Comment on above: Order Comment: Speci men Type: BLOOD SPECIMENOrdering Facility: [facility] Address: [address] [place] [address] Result Comment: Hemo lysis present. The origin of the hemolysis, in vitro versus an in vivo hemolytic process, cannot be distinguished via this assay alone. In vitro hemolysis may lead to non-physiological (spurious) elevation in lactate dehydrogenase (LDH) results. Theresult should be interpreted in context of the clinical setting and other test results. Suggest reorder as clinically indicated. Performed By: #### 3 084-1, 2777-1, 2532-0, 05100-0 ####[facility] LABCLIA [id number] [place] [address] LDH [Catalytic activity/Vol] on 02-20-2024 Interpretation and review of laboratory results Abnormal [facility] Laboratory - Chemistry and C hemistry - challengeon 02-20-2024 Protein [Mass/Vol] 0.32 g/dL High <=0.00 [facility] Albumin [Mass/Vol] 3.6 g/dL Low 3.9-4.9 [facility] ALP [Catalytic activity/Vol] 128 U/L High 38-113 [facility] ALT [Catalytic activity/Vol] 16 U/L 10-54 [facility] AST [Catalytic activity/Vol] 24 U/L 14-40 [facility] Bilirubin [Mass/Vol] 0.2 mg/dL 0.2-1.3 [facility] Calcium [Mass/Vol] 9.1 mg/dL 8.5-10.2 [facility] Chloride [Moles/Vol] 102 mmol/L 98-107 [facility] CO2 [Moles/Vol] 26 mmol/L 22-30 [facility] Creatinine [Mass/Vol] 1.37 mg/dL High 0.73-1.22 [facility] Glucose [Mass/Vol] 146 mg/dL High 74-99 [facility] Comment on above: The [place] Diab[employer] Association (ADA) provides guidance for cutoff values for fasting glucose and random glucose. The ADA defines fasting as no caloric intake for at least 8 hours. Fasting plasma glucose results between 100 to 125 mg/dL indicate increased risk for diabetes (prediabetes).Fasting plasma glucose results greater than or equal to 126 mg/dL meet the criteria for diagnosis of diabetes. In the absence of unequivocal hyperglycemia, results should be confirmed by repeat testing. In a patient with classic symptoms of hyperglycemia or hyperglycemic crisis, random plasma glucose results greater than or equal to 200 mg/dL meet the criteria for diagnosis of diabetes.Reference: Standards of Medical Care in Diabetes 2016, [place] [employer]. Diabetes Care. 2016.39(Suppl 1). LDH [Catalytic activity/Vol] 255 U/L High 135-225 [facility] Comment on above: Hemolysis present. T he origin of the hemolysis, in vitro versus an in vivo hemolytic process, cannot be distinguished via this assay alone. In vitro hemolysis may lead to non-physiological (spurious) elevation in lactate dehydrogenase (LDH) results. The result should be interpreted in context of the clinical setting and other test results. Suggest reorder as clinically indicated. Potassium [Moles/Vol] 4.0 mmol/L 3.7-5.1 [facility] Sodium [Moles/Vol] 137 mmol/L 136-144 [facility] Urate [Mass/Vol] 7.6 mg/dL 4.0-8.1 [facility] Urea nitrogen [Mass/Vol] 21 mg/dL 9-24 [facility] Laboratory - Hematology and Cell countson 02-20-2024 Eosinophils (Bld) [#/Vol] 0.39 10*3/uL <0.46 [facility] Immature granulocytes (Bld) [#/Vol] 0.04 10*3/uL <0.10 [facility] Immature granulocytes/100 WBC (Bld) 0.4 % [facility] Leukocytes [#/volume] correc tony for nucleated erythrocytes in Blood by Automated counon 02-20-2024 WBC corrected for nucl RBC Auto (Bld) [#/Vol] 8.90 k/uL 3.70-11.00 [facility] Lymphocytes Auto (Bld) [#/Vo l]on 02-20-2024 Lymphocytes (Bld) [#/Vol] 1.37 10*3/uL 1.00-4.00 [facility] Lymphocytes/100 WBC Auto (Bl d)on 02-20-2024 Lymphocytes/100 WBC (Bld) 15.4 % [facility] MCH Auto (RBC) [Entitic mass ]on 02-20-2024 MCH (RBC) [Entitic mass] 36.0 pg High 26.0-34.0 [facility] MCHC Auto (RBC) [Mass/Vol]on 02-20-2024 MCHC (RBC) [Mass/Vol] 34.4 g/dL 30.5-36.0 [facility] MCV Auto (RBC) [Entitic vol] on 02-20-2024 MCV (RBC) [Entitic vol] 104.5 fL High 80.0-100.0 [facility] Monocytes Auto (Bld) [#/Vol] on 02-20-2024 Monocytes (Bld) [#/Vol] 1.26 10*3/uL High <0.87 [facility] Monocytes/100 WBC Auto (Bld) on 02-20-2024 Monocytes/100 WBC (Bld) 14.2 % [facility] Neutrophils Auto (Bld) [#/Vo l]on 02-20-2024 Neutrophils (Bld) [#/Vol] 5.77 10*3/uL 1.45-7.50 [facility] Neutrophils/100 WBC Auto (Bl d)on 02-20-2024 Neutrophils/100 WBC (Bld) 64.8 % [facility] No Panel Informationon 02-19 Interpretation and review of laboratory results Normal [facility] Immunofixation Interpretation [facility] Leuk/Lymph Sign Pathologist (Misc) Reviewed by Malou Wahl MD [facility] Miscellaneous Test 6 Gamma Fraction 1 [facility] Miscellaneous Test Comment Reviewed by Malou Wahl MD [facility] Protein Electrophoresis Interpret See comment [facility] Comment on above: See separate immunof ixation report for characterization of monoclonal gammopathy.M protein is present on the background of a polyclonal immunoglobulin population. Quantitation of the M protein may overestimate the amount of M protein present. Protein Electrophoresis Note An M protein is identified on protein electrophoresis. Abnormal No definitive M protein is identified on protein electrophor esis. [facility] Serum Immunofixation Abnormal No M protein is identified. [facility] Ionized Calcium (pH Adjusted) 1.23 mmol/L 1.08-1.30 [facility] Estimated GFR (CKD-EPI) 52 mL/min/1.73m??? Low >=60 [facility] Comment on above: Estimated Glomerular Filtration Rate (eGFR) is calculated using the 2020 CKD-EPI creatinine equation. This equation utilizes serum creatinine, sex, and age as parameters. The creatinine assay has traceable calibration to isotope dilution-mass spectrometry. Refer to KDIGO guidelines for clinical interpretation. In patients with unstable renal function, e.g. those with acute kidney injury, the eGFR may not accurately reflect actual GFR. Phosphorus Level 3.3 mg/dL 2.7-4.8 [facility] Nucleated RBC Auto (Bld) [#/ Vol]on 02-20-2024 Nucleated RBC (Bld) [#/Vol] 10*3/uL <0.01 [facility] Nucleated erythrocytes [Pres ence] in Blood by Automated counton 02-20-2024 Nucleated RBC Auto Ql (Bld) 0.0 /100{WBC} [facility] PHOSPHORUS INORGANICon 02-19 Phosphate [Mass/Vol] 3.3 mg/dL 2.7 - 4 .8 mg/dL [facility] PROTEIN ELECTROPHORESIS SERU M (P)on 02-20-2024 INTERPRETATION COMMENT FOR PROTEIN ELECTROPHORESIS Normal [facility] Comment on above: Order Comment: Speci men Type: BLOOD SPECIMENOrdering Facility: [facility] Address: [address] [place] [address] Result Comment: See separate immunofixation report for characterization of monoclonal gammopathy.M protein is present on the background of a polyclonal immunoglobulin population. Quantitation of the M protein may overestimate the amount of M protein present. Performed By: #### L [id number] ####[facility] LABCLIA [id number] [place] [address] [place] M-PROTEIN LOCATION Gamma Fraction 1 Normal [facility] Comment on above: Order Comment: Speci men Type: BLOOD SPECIMENOrdering Facility: [facility] Address: [address] [place] [address] Performed By: #### L [id number] ####[facility] LABCLIA [id number] [place] [address] [place] Protein Fractions [Interp] An M protein is identified on protein electrophoresis. Abnormal No definitive M protein is identified on protein electrophor esis. [facility] Comment on above: Order Comment: Speci men Type: BLOOD SPECIMENOrdering Facility: [facility] Address: [address] [place] [address] Performed By: #### L [id number] ####[facility] LABCLIA [id number] [place] [address] [place] Protein.monoclonal Elph [Mass/Vol] 0.32 g/dL High <=0.00 [facility] Comment on above: Order Comment: Speci men Type: BLOOD SPECIMENOrdering Facility: [facility] Address: [address] [place] [address] Performed By: #### L [id number] ####[facility] LABCLIA [id number] [place] [address] [place] SPE STAFF REVIEW Reviewed by Malou Wahl MD [facility] Comment on above: Order Comment: Speci men Type: BLOOD SPECIMENOrdering Facility: [facility] Address: [address] [place] [address] Performed By: #### L [id number] ####[facility] LABCLIA [id number] [place] [address] [place] Phosphate SerPl-mCncon 02-19 Phosphate [Mass/Vol] 3.3 mg/dL Normal 2.7-4.8 [facility] Comment on above: Order Comment: Speci men Type: BLOOD SPECIMENOrdering Facility: [facility] Address: [address] [place] [address] Performed By: #### 3 084-1, 2777-1, 2532-0, 98681-4 ####[facility] LABCLIA [id number] [place] [address] Platelet mean volume Auto (B ld) [Entitic vol]on 02-20-2024 Platelet mean volume (Bld) [Entitic vol] 10.0 fL 9.0-12.7 [facility] Platelets Auto (Bld) [#/Vol] on 02-20-2024 Platelets (Bld) [#/Vol] 283 10*3/uL 150-400 [facility] Prot SerPl-mCncon 02-20-2024 Protein [Mass/Vol] 6.9 g/dL Normal 6.3-8.0 [facility] Comment on above: Order Comment: Speci men Type: BLOOD SPECIMENOrdering Facility: [facility] Address: [address] [place] [address] Performed By: #### 2 885-2, 1951-07 ####[facility] LABCLIA [id number] [facility] [id number] [address] [place] Protein [Mass/volume] in Ser um or Plasmaon 02-20-2024 Protein [Mass/Vol] 6.9 g/dL 6.3-8.0 [facility] RBC Auto (Bld) [#/Vol]on RBC (Bld) [#/Vol] 3.56 10*6/uL Low 4.20-6.00 [facility] Serum ionized calcium measur ement using ion specific electrode (mass/volume)on 02-20-2024 Calcium.ionized ISE [Mass/Vol] 1.19 mmol/L 1.08-1.30 [facility] Serum or plasma alpha 1 glob ulin measurement by electrophoresis (mass/volume)on 02-20-2024 Alpha 1 globulin Elph [Mass/Vol] 0.29 g/dL Normal 0.18-0.43 [facility] Comment on above: Order Comment: Speci men Type: BLOOD SPECIMENOrdering Facility: [facility] Address: [address] [place] [address] Performed By: #### L [id number] ####[facility] LABCLIA [id number] [address] [place] Serum or plasma alpha 2 glob ulin measurement by electrophoresis (mass/volume)on 02-20-2024 Alpha 2 globulin Elph [Mass/Vol] 0.95 g/dL Normal 0.42-0.98 [facility] Comment on above: Order Comment: Speci men Type: BLOOD SPECIMENOrdering Facility: [facility] Address: [address] [place] [address] Performed By: #### L [id number] ####[facility] LABIA [id number] [address] [place] Serum or plasma anion gap de terminationon 02-20-2024 Anion gap [Moles/Vol] 9 mmol/L 8-15 [facility] Serum or plasma beta globuli n measurement by electrophoresis (mass/volume)on 02-20-2024 Beta globulin Elph [Mass/Vol] 0.90 g/dL Normal 0.61-1.17 [facility] Comment on above: Order Comment: Speci men Type: BLOOD SPECIMENOrdering Facility: [facility] Address: [address] [place] [address] Performed By: #### L [id number] ####[facility] LABIA [id number] [address] [place] Serum or plasma mspx-0-pgarq globulin measurement (mass/volume)on 02-20-2024 Llvg-1-Vouqinhpslimy [Mass/Vol] 3.4 ug/mL High <3.1 [facility] Comment on above: Beta-2 Microglobulin test is performed using the [employer] immunoturbidimetric method. Results obtained with different methods or kits cannot be used interchangeably. Serum or plasma gamma globul in measurement by electrophoresis (mass/volume)on 02-20-2024 Gamma globulin Elph [Mass/Vol] 1.32 g/dL Normal 0.53-1.51 [facility] Comment on above: Order Comment: Speci men Type: BLOOD SPECIMENOrdering Facility: [facility] Address: [address] [place], [place] [address] Performed By: #### L [id number] ####[facility] LABCLIA [id number] GAEL [place]K [id number] [address] [place] URIC ACIDon 02-20-2024 Urate [Mass/Vol] 7.6 mg/dL 4.0 - 8.1 mg/dL [facility] Urate SerPl-mCncon Urate [Mass/Vol] 7.6 mg/dL Normal 4.0-8.1 [facility] Comment on above: Order Comment: Speci men Type: BLOOD SPECIMENOrdering Facility: [facility] Address: [address] [place] [address] Performed By: #### 3 084-1, 2777-1, 2532-0, 52638-2 ####[facility] LABCLIA [id number] [place] [address] CNPNon 02-19-2024 CNPN Normal [facility] Albumin [Mass/volume] in Ser um or Plasmaon 01-22-2024 Albumin [Mass/Vol] 2.99 g/dL Low 3.43-5.41 [facility] Anisocytosis LM Ql (Bld)on 0 01-22-2024 Anisocytosis Ql (Bld) Present [facility] Basophils Auto (Bld) [#/Vol] on 01-22-2024 Basophils (Bld) [#/Vol] 0.10 10*3/uL <0.11 [facility] Basophils/100 WBC Auto (Bld) on 01-22-2024 Basophils/100 WBC (Bld) 0.9 % [facility] Blood manual differential co mment interpretation narrativeon 01-22-2024 Manual differential comment Aashish (Bld) [Interp] Manual [facility] CBC W Auto Differential pane l (Bld)on 01-22-2024 Anisocytosis Ql (Bld) Present Normal [facility] Comment on above: Order Comment: Speci men Type: BLOOD SPECIMENOrdering Facility: [facility] Address: [address] [place] [address] Performed By: #### 5 7021-8 ####[facility] LABCLIA [id number] [address] LABCLIA [id number] [place] [address] [place] Basophils (Bld) [#/Vol] 0.10 10*3/uL Normal <0.11 [facility] Comment on above: Order Comment: Speci men Type: BLOOD SPECIMENOrdering Facility: [facility] Address: [address] [place] [address] Performed By: #### 5 7021-8 ####[facility] LABCLIA [id number] [address] LABCLIA [id number] [place] [address] [place] Basophils/100 WBC (Bld) 0.9 % Normal [facility] Comment on above: Order Comment: Speci men Type: BLOOD SPECIMENOrdering Facility: [facility] Address: [address] [place] [address] Performed By: #### 5 7021-8 ####[facility] LABCLIA [id number] [address] LABCLIA [id number] [place] [address] [place] Differential cell count method Nom (Bld) Manual Normal [facility] Comment on above: Order Comment: Speci men Type: BLOOD SPECIMENOrdering Facility: [facility] Address: [address] [place] [address] Performed By: #### 5 7021-8 ####[facility] LABCLIA [id number] [address] LABCLIA [id number] [place] [address] [place] Eosinophils (Bld) [#/Vol] 0.18 10*3/uL Normal <0.46 [facility] Comment on above: Order Comment: Speci men Type: BLOOD SPECIMENOrdering Facility: [facility] Address: [address] [place] [address] Performed By: #### 5 7021-8 ####[facility] LABCLIA [id number] [address] LABCLIA [id number] [place] [address] [place] Eosinophils/100 WBC (Bld) 1.7 % Normal [facility] Comment on above: Order Comment: Speci men Type: BLOOD SPECIMENOrdering Facility: [facility] Address: [address] [place] [address] Performed By: #### 5 7021-8 ####[facility] LABCLIA [id number] [address] LABCLIA [id number] [place] [address] [place] Erythrocyte distribution width (RBC) [Ratio] 15.3 % High 11.5-15.0 [facility] Comment on above: Order Comment: Speci men Type: BLOOD SPECIMENOrdering Facility: [facility] Address: [address] [place] [address] Performed By: #### 5 7021-8 ####[facility] LABCLIA [id number] [address] LABCLIA [id number] [place] [address] [place] Hematocrit (Bld) [Volume fraction] 34.4 % Low 39.0-51.0 [facility] Comment on above: Order Comment: Speci men Type: BLOOD SPECIMENOrdering Facility: [facility] Address: [address] [place] [address] Performed By: #### 5 7021-8 ####[facility] LABCLIA [id number] [place] [address] LABCLIA [id number] [place] [address] [place] Hemoglobin (Bld) [Mass/Vol] 11.5 g/dL Low 13.0-17.0 [facility] Comment on above: Order Comment: Speci men Type: BLOOD SPECIMENOrdering Facility: [facility] Address: [address] [place] [address] Performed By: #### 5 7021-8 ####[facility] LABCLIA [id number] [address] LABCLIA [id number] [place] [address] [place] Lymphocytes (Bld) [#/Vol] 0.82 10*3/uL Low 1.00-4.00 [facility] Comment on above: Order Comment: Speci men Type: BLOOD SPECIMENOrdering Facility: [facility] Address: [address] [place] [address] Performed By: #### 5 7021-8 ####[facility] LABCLIA [id number] [address] LABCLIA [id number] [place] [address] [place] Lymphocytes/100 WBC (Bld) 7.8 % Normal [facility] Comment on above: Order Comment: Speci men Type: BLOOD SPECIMENOrdering Facility: [facility] Address: [address] [place] [address] Performed By: #### 5 7021-8 ####[facility] LABCLIA [id number] [address] LABCLIA [id number] [place] [address] [place] MCH (RBC) [Entitic mass] 35.2 pg High 26.0-34.0 [facility] Comment on above: Order Comment: Speci men Type: BLOOD SPECIMENOrdering Facility: [facility] Address: [address] [place] [address] Performed By: #### 5 7021-8 ####[facility] LABCLIA [id number] [address] LABCLIA [id number] [place] [address] [place] MCHC (RBC) [Mass/Vol] 33.4 g/dL Normal 30.5-36.0 [facility] Comment on above: Order Comment: Speci men Type: BLOOD SPECIMENOrdering Facility: [facility] Address: [address] [place] [address] Performed By: #### 5 7021-8 ####[facility] LABCLIA [id number] [address] LABCLIA [id number] [place] [address] [place] MCV (RBC) [Entitic vol] 105.2 fL High 80.0-100.0 [facility] Comment on above: Order Comment: Speci men Type: BLOOD SPECIMENOrdering Facility: [facility] Address: [address] [place] [address] Performed By: #### 5 7021-8 ####[facility] LABCLIA [id number] [address] LABCLIA [id number] [place] [address] [place] Monocytes (Bld) [#/Vol] 1.56 10*3/uL High <0.87 [facility] Comment on above: Order Comment: Speci men Type: BLOOD SPECIMENOrdering Facility: [facility] Address: [address] [place] [address] Performed By: #### 5 7021-8 ####[facility] LABCLIA [id number] [place] [address] LABCLIA [id number] [place] [address] [place] Monocytes/100 WBC (Bld) 14.8 % Normal [facility] Comment on above: Order Comment: Speci men Type: BLOOD SPECIMENOrdering Facility: [facility] Address: [address] [place] [address] Performed By: #### 5 7021-8 ####[facility] LABCLIA [id number] [place] [address] LABCLIA [id number] [place] [address] [place] Neutrophils (Bld) [#/Vol] 7.91 10*3/uL High 1.45-7.50 [facility] Comment on above: Order Comment: Speci men Type: BLOOD SPECIMENOrdering Facility: [facility] Address: [address] [place] [address] Performed By: #### 5 7021-8 ####[facility] LABCLIA [id number] [place] [address] LABCLIA [id number] [place] [address] [place] Neutrophils/100 WBC (Bld) 74.8 % Normal [facility] Comment on above: Order Comment: Speci men Type: BLOOD SPECIMENOrdering Facility: [facility] Address: [address] [place] [address] Performed By: #### 5 7021-8 ####[facility] LABCLIA [id number] [place] [address] LABCLIA [id number] [place] [address] [place] Nucleated RBC (Bld) [#/Vol] 10*3/uL Normal <0.01 [facility] Comment on above: Order Comment: Speci men Type: BLOOD SPECIMENOrdering Facility: [facility] Address: [address] [place] [address] Performed By: #### 5 7021-8 ####[facility] LABCLIA [id number] [address] LABCLIA [id number] [place] [address] [place] Nucleated RBC/100 WBC (Bld) [Ratio] 0.0 /100 WBC Normal [facility] Comment on above: Order Comment: Speci men Type: BLOOD SPECIMENOrdering Facility: [facility] Address: [address] [place] [address] Performed By: #### 5 7021-8 ####[facility] LABCLIA [id number] [address] LABCLIA [id number] [place] [address] [place] Ovalocytes LM Ql (Bld) Few Normal [facility] Comment on above: Order Comment: Speci men Type: BLOOD SPECIMENOrdering Facility: [facility] Address: [address] [place] [address] Performed By: #### 5 7021-8 ####[facility] LABCLIA [id number] [address] LABCLIA [id number] [place] [address] [place] Platelet mean volume (Bld) [Entitic vol] 10.1 fL Normal 9.0-12.7 [facility] Comment on above: Order Comment: Speci men Type: BLOOD SPECIMENOrdering Facility: [facility] Address: [address] [place] [address] Performed By: #### 5 7021-8 ####[facility] LABCLIA [id number] [address] LABCLIA [id number] [facility] [address] [address] [place] Platelets (Bld) [#/Vol] 281 10*3/uL Normal 150-400 [facility] Comment on above: Order Comment: Speci men Type: BLOOD SPECIMENOrdering Facility: [facility] Address: [address] [place] [address] Performed By: #### 5 7021-8 ####[facility] LABCLIA [id number] [place] [address] LABCLIA [id number] [place] [address] [place] Platelets Estimate (Bld) [#/Vol] Adequate Normal [facility] Comment on above: Order Comment: Speci men Type: BLOOD SPECIMENOrdering Facility: [facility] Address: [address] [place] [address] Performed By: #### 5 7021-8 ####[facility] LABCLIA [id number] [place] [address] LABCLIA [id number] [place] [address] [place] Polychromasia LM Ql (Bld) Slight Normal [facility] Comment on above: Order Comment: Speci men Type: BLOOD SPECIMENOrdering Facility: [facility] Address: [address] [place] [address] Performed By: #### 5 7021-8 ####[facility] LABCLIA [id number] [place] [address] LABCLIA [id number] [place] [address] [place] RBC (Bld) [#/Vol] 3.27 10*6/uL Low 4.20-6.00 [facility] Comment on above: Order Comment: Speci men Type: BLOOD SPECIMENOrdering Facility: [facility] Address: [address] [place] [address] Performed By: #### 5 7021-8 ####[facility] LABCLIA [id number] [place] [address] LABCLIA [id number] [place] [address] [place] RED CELL MORPH Reviewed: see result s of individual morphologies Normal [facility] Comment on above: Order Comment: Speci men Type: BLOOD SPECIMENOrdering Facility: [facility] Address: [address] [place] [address] Performed By: #### 5 7021-8 ####[facility] LABCLIA [id number] [address] LABCLIA [id number] [place] [address] [place] WBC (Bld) [#/Vol] 10.57 10*3/uL Normal 3.70-11.00 [facility] Comment on above: Order Comment: Speci men Type: BLOOD SPECIMENOrdering Facility: [facility] Address: [address] [place] [address] Performed By: #### 5 7021-8 ####[facility] LABCLIA [id number] [place] [address] LABCLIA [id number] [place] [address] [place] CNOVSPon 01-22-2024 CNOVSP Normal [facility] Comprehensive metabolic 2000 panelOrdered By: Jacqueline Thompson on 01-22-2024 Albumin [Mass/Vol] 3.5 g/dL Low 3.9 - 4.9 g/dL [facility] ALP [Catalytic activity/Vol] 131 U/L High 38 - 113 U/L [facility] ALT [Catalytic activity/Vol] 22 U/L 10 - 54 U/L [facility] Anion gap [Moles/Vol] 10 mmol/L 8 - 15 mmol/L [facility] AST [Catalytic activity/Vol] 21 U/L 14 - 40 U/L [facility] Bilirubin [Mass/Vol] 0.3 mg/dL 0.2 - 1 .3 mg/dL [facility] Calcium [Mass/Vol] 9.2 mg/dL 8.5 - 10. 2 mg/dL [facility] Chloride [Moles/Vol] 98 mmol/L 98 - 10 7 mmol/L [facility] CO2 [Moles/Vol] 26 mmol/L 22 - 30 mmol/L [facility] Creatinine [Mass/Vol] 1.41 mg/dL High 0.73 - 1.22 mg/dL [facility] GFR/1.73 sq M.predicted among non-blacks MDRD (S/P/Bld) [Vol rate/Area] 50 mL/min/{1.73_m2} Low - PINF [facility] Comment on above: Estimated Glomerular Filtration Rate (eGFR) is calculated using the 2020 CKD-EPI creatinine equation. This equation utilizes serum creatinine, sex, and age as parameters. The creatinine assay has traceable calibration to isotope dilution-mass spectrometry. Refer to KDIGO guidelines for clinical interpretation. In patients with unstable renal function, e.g. those with acute kidney injury, the eGFR may not accurately reflect actual GFR. Glucose [Mass/Vol] 120 mg/dL High 74 - 99 mg/dL [facility] Comment on above: The [place] Di[employer] Association (ADA) provides guidance for cutoff values for fasting glucose and random glucose. The ADA defines fasting as no caloric intake for at least 8 hours. Fasting plasma glucose results between 100 to 125 mg/dL indicate increased risk for diabetes (prediabetes). Fasting plasma glucose results greater than or equal to 126 mg/dL meet the criteria for diagnosis of diabetes. In the absence of unequivocal hyperglycemia, results should be confirmed by repeat testing. In a patient with classic symptoms of hyperglycemia or hyperglycemic crisis, random plasma glucose results greater than or equal to 200 mg/dL meet the criteria for diagnosis of diabetes. Reference: Standards of Medical Care in Diabetes 2016, [place] [employer]. Diabetes Care. 2016.39(Suppl 1). Interpretation and review of laboratory results Abnormal [facility] Potassium [Moles/Vol] 4.4 mmol/L 3.7 - 5.1 mmol/L [facility] Protein [Mass/Vol] 6.9 g/dL 6.3 - 8.0 g/dL [facility] Sodium [Moles/Vol] 134 mmol/L Low 136 - 144 mmol/L [facility] Urea nitrogen [Mass/Vol] 20 mg/dL 9 - 24 mg/dL [facility] Comprehensive metabolic 2000 panelon 01-22-2024 Albumin [Mass/Vol] 3.5 g/dL Low 3.9-4.9 [facility] Comment on above: Order Comment: Speci men Type: BLOOD SPECIMENOrdering Facility: [facility] Address: [address] [place] [address] Performed By: #### 2 4323-8 ####[facility] LABCLIA [id number] [place] [address] ALP [Catalytic activity/Vol] 131 U/L High 38-113 [facility] Comment on above: Order Comment: Speci men Type: BLOOD SPECIMENOrdering Facility: [facility] Address: [address] [place] [address] Performed By: #### 2 4323-8 ####[facility] LABCLIA [id number] [place] [address] ALT [Catalytic activity/Vol] 22 U/L Normal 10-54 [facility] Comment on above: Order Comment: Speci men Type: BLOOD SPECIMENOrdering Facility: [facility] Address: [address] [place] [address] Performed By: #### 2 4323-8 ####[facility] LABCLIA [id number] [place] [address] Anion gap [Moles/Vol] 10 mmol/L Normal 8-15 [facility] Comment on above: Order Comment: Speci men Type: BLOOD SPECIMENOrdering Facility: [facility] Address: [address] [place] [address] Performed By: #### 2 4323-8 ####[facility] LABCLIA [id number] [place] [address] AST [Catalytic activity/Vol] 21 U/L Normal 14-40 [facility] Comment on above: Order Comment: Speci men Type: BLOOD SPECIMENOrdering Facility: [facility] Address: [address] [place] [address] Performed By: #### 2 4323-8 ####[facility] LABCLIA [id number] [place] [address] Bilirubin [Mass/Vol] 0.3 mg/dL Normal 0.2-1.3 [facility] Comment on above: Order Comment: Speci men Type: BLOOD SPECIMENOrdering Facility: [facility] Address: [address] [place] [address] Performed By: #### 2 4323-8 ####[facility] LABCLIA [id number] [place] [address] Calcium [Mass/Vol] 9.2 mg/dL Normal 8.5-10.2 [facility] Comment on above: Order Comment: Speci men Type: BLOOD SPECIMENOrdering Facility: [facility] Address: [address] [place] [address] Performed By: #### 2 4323-8 ####[facility] LABCLIA [id number] [place] [address] Chloride [Moles/Vol] 98 mmol/L Normal 98-107 [facility] Comment on above: Order Comment: Speci men Type: BLOOD SPECIMENOrdering Facility: [facility] Address: [address] [place] [address] Performed By: #### 2 4323-8 ####[facility] LABCLIA [id number] [place] [address] CO2 [Moles/Vol] 26 mmol/L Normal 22-30 [facility] Comment on above: Order Comment: Speci men Type: BLOOD SPECIMENOrdering Facility: [facility] Address: [address] [place] [address] Performed By: #### 2 4323-8 ####[facility] LABCLIA [id number] [place] [address] Creatinine [Mass/Vol] 1.41 mg/dL High 0.73-1.22 [facility] Comment on above: Order Comment: Ever duran Type: BLOOD SPECIMENOrdering Facility: [facility] Address: [address] [place], [place] [address] Performed By: #### 2 4323-8 ####[facility] LABCLIA [id number] [place] [address] Creatinine and Glomerular filtration rate.predicted panel (S/P/Bld) 50 mL/min/1.73m??? Low >=60 [facility] Comment on above: Order Comment: Ever duran Type: BLOOD SPECIMENOrdering Facility: [facility] Address: [address] [place] [address] Result Comment: Janae mated Glomerular Filtration Rate (eGFR) is calculated using the 2020 CKD-EPI creatinine equation. This equation utilizes serum creatinine, sex, and age as parameters. The creatinine assay has traceable calibration to isotope dilution-mass spectrometry. Refer to KDIGO guidelines for clinical interpretation. In patients with unstable renal function, e.g. those with acute kidney injury, the eGFR may not accurately reflect actual GFR. Performed By: #### 2 4323-8 ####[facility] LABCLIA [id number] [place] [address] Glucose [Mass/Vol] 120 mg/dL High 74-99 [facility] Comment on above: Order Comment: Ever duran Type: BLOOD SPECIMENOrdering Facility: [facility] Address: [address] [place], [place] [id number] Result Comment: The [place] Diabetes Association (ADA) provides guidance for cutoff values for fasting glucose and random glucose. The ADA defines fasting as no caloric intake for at least 8 hours. Fasting plasma glucose results between 100 to 125 mg/dL indicate increased risk for diabetes (prediabetes).Fasting plasma glucose results greater than or equal to 126 mg/dL meet the criteria for diagnosis of diabetes. In the absence of unequivocal hyperglycemia, results should be confirmed by repeat testing. In a patient with classic symptoms of hyperglycemia or hyperglycemic crisis, random plasma glucose results greater than or equal to 200 mg/dL meet the criteria for diagnosis of diabetes.Reference: Standards of Medical Care in Diabetes 2016, [place] [employer]. Diabetes Care. 2016.39(Suppl 1). Performed By: #### 2 4323-8 ####[facility] LABCLIA [id number] [place] [address] Potassium [Moles/Vol] 4.4 mmol/L Normal 3.7-5.1 [facility] Comment on above: Order Comment: Speci men Type: BLOOD SPECIMENOrdering Facility: [facility] Address: [address] [place] [address] Performed By: #### 2 4323-8 ####[facility] LABCLIA [id number] [place] [address] Protein [Mass/Vol] 6.9 g/dL Normal 6.3-8.0 [facility] Comment on above: Order Comment: Speci men Type: BLOOD SPECIMENOrdering Facility: [facility] Address: [address] [place] [address] Performed By: #### 2 4323-8 ####[facility] LABCLIA [id number] [place] [address] Sodium [Moles/Vol] 134 mmol/L Low 136-144 [facility] Comment on above: Order Comment: Speci men Type: BLOOD SPECIMENOrdering Facility: [facility] Address: [address] [place] [address] Performed By: #### 2 4323-8 ####[facility] LABCLIA [id number] [place] [address] Urea nitrogen [Mass/Vol] 20 mg/dL Normal 9-24 [facility] Comment on above: Order Comment: Speci men Type: BLOOD SPECIMENOrdering Facility: [facility] Address: [facility] [place] [address] Performed By: #### 2 4323-8 ####[facility] LABCLIA [id number] [place] [address] Eosinophils/100 WBC Auto (Bl d)on 01-22-2024 Eosinophils/100 WBC (Bld) 1.7 % [facility] Erythrocyte distribution wid th Auto (RBC) [Ratio]on 01-22-2024 Erythrocyte distribution width (RBC) [Ratio] 15.3 % High 11.5-15.0 [facility] Hematocrit Auto (Bld) [Volum e fraction]on 01-22-2024 Hematocrit (Bld) [Volume fraction] 34.4 % Low 39.0-51.0 [facility] Hemoglobin [Mass/volume] in Bloodon 01-22-2024 Hemoglobin (Bld) [Mass/Vol] 11.5 g/dL Low 13.0-17.0 [facility] IMMUNOFIXATION SCREEN, SERUM on 01-22-2024 MPA RESULT No M protein is identified. Normal No M protein is identified. [facility] Comment on above: Order Comment: Speci men Type: BLOOD SPECIMENOrdering Facility: [facility] Address: [address] [place] [address] Performed By: #### I FESC ####[facility] LABIA [id number] [place] [address] [place] STAFF REVIEW (MPA) Reviewed by Panchito Colbert MD, Ph.D ([id number]) Normal [facility] Comment on above: Order Comment: Speci men Type: BLOOD SPECIMENOrdering Facility: [facility] Address: [address] [place] [address] Performed By: #### I FESC ####[facility] LABIA [id number] [place] [address] [place] IMMUNOGLOBULINS,IGG,IGA,IGMo n 01-22-2024 IgA [Mass/Vol] 262 mg/dL Normal 70-400 [facility] Comment on above: Order Comment: Speci men Type: BLOOD SPECIMENOrdering Facility: [facility] Address: [address] [place] [address] Performed By: #### S ERIMM ####[facility] LABCLIA [id number] [place] [address] [place] IgG [Mass/Vol] 1060 mg/dL Normal 700-1600 [facility] Comment on above: Order Comment: Speci men Type: BLOOD SPECIMENOrdering Facility: [facility] Address: [address] [place] [address] Performed By: #### S ERIMM ####[facility] LABCLIA [id number] [place] [address] [place] IgM [Mass/Vol] 31 mg/dL Low 40-230 [facility] Comment on above: Order Comment: Speci men Type: BLOOD SPECIMENOrdering Facility: [facility] Address: [address] [place] [address] Performed By: #### S ERIMM ####[facility] LABCLIA [id number] [place] [address] [place] IgA [Mass/volume] in Serum o r Plasmaon 01-22-2024 IgA [Mass/Vol] 262 mg/dL 70-400 [facility] IgG [Mass/volume] in Serum o r Plasmaon 01-22-2024 IgG [Mass/Vol] 1060 mg/dL 700-1600 [facility] IgM [Mass/volume] in Serum o r Plasmaon 01-22-2024 IgM [Mass/Vol] 31 mg/dL Low 40-230 [facility] Immunoglobulin light chains. kappa.free [Mass/volume] in Serumon 01-22-2024 Immunoglobulin light chains.kappa.free (S) [Mass/Vol] 36.3 mg/L High 3.3-19.4 [facility] Comment on above: Rarely, increased se rum free light chains levels may not be detected or accurately quantified due to prozone phenomenon or in high viscosity samples using this immunoturbidimetric assay. Correlation with other laboratory results and clinical findings is recommended. The [place] Free Light Chain was performed using the Binding Site Optilite immunoturbidimetric method. Result obtained with different assay methods or kits cannot be used interchangeably. Immunoglobulin light chains. kappa.free/Immunoglobulin light chains.lambda.free [Fransisca 01-22-2024 Immunoglobulin light chains.kappa.free/Immuno globulin light chains.lambda.free (S) [Mass ratio] 1.93 High 0.26-1.65 [facility] Immunoglobulin light chains. lambda.free [Mass/volume] in Serum or Plasmaon 01-22-2024 Immunoglobulin light chains.lambda.free [Mass/Vol] 18.8 mg/L 5.7-26.3 [facility] Comment on above: Rarely, increased se rum free light chains levels may not be detected or accurately quantified due to prozone phenomenon or in high viscosity samples using this immunoturbidimetric assay. Correlation with other laboratory results and clinical findings is recommended. The Lambda Free Light Chain was performed using the Binding Site Optilite immunoturbidimetric method. Result obtained with different assay methods or kits cannot be used interchangeably. KAPPA/HERNANDEZ,FREE,SERon 2023 Immunoglobulin light chains.kappa.free (S) [Mass/Vol] 36.3 mg/L High 3.3-19.4 [facility] Comment on above: Order Comment: Speci men Type: BLOOD SPECIMENOrdering Facility: [facility] Address: [address] [place] [address] Result Comment: Rare ly, increased serum free light chains levels may not be detected or accurately quantified due to prozone phenomenon or in high viscosity samples using this immunoturbidimetric assay. Correlation with other laboratory results and clinical findings is recommended.The [place] Free Light Chain was performed using the Binding Site Optilite immunoturbidimetric method. Result obtained with different assay methods or kits cannot be used interchangeably. Performed By: #### K LFRS ####[facility] LABCLIA [id number] [place] [address] [place] Immunoglobulin light chains.kappa/Immunoglobu natanael light chains.lambda (S) [Mass ratio] 1.93 High 0.26-1.65 [facility] Comment on above: Order Comment: Speci men Type: BLOOD SPECIMENOrdering Facility: [facility] Address: [address] [place] [address] Performed By: #### K LFRS ####[facility] LABCLIA [id number] [place] [address] [place] Immunoglobulin light chains.lambda.free [Mass/Vol] 18.8 mg/L Normal 5.7-26.3 [facility] Comment on above: Order Comment: Speci men Type: BLOOD SPECIMENOrdering Facility: [facility] Address: [address] [place] [address] Result Comment: Rare ly, increased serum free light chains levels may not be detected or accurately quantified due to prozone phenomenon or in high viscosity samples using this immunoturbidimetric assay. Correlation with other laboratory results and clinical findings is recommended.The Lambda Free Light Chain was performed using the Binding Site Optilite immunoturbidimetric method. Result obtained with different assay methods or kits cannot be used interchangeably. Performed By: #### K LFRS ####[facility] LABCLIA [id number] [place] [address] [place] Laboratory - Chemistry and C hemistry - challengeon 01-22-2024 Albumin [Mass/Vol] 3.5 g/dL Low 3.9-4.9 [facility] ALP [Catalytic activity/Vol] 131 U/L High 38-113 [facility] ALT [Catalytic activity/Vol] 22 U/L 10-54 [facility] AST [Catalytic activity/Vol] 21 U/L 14-40 [facility] Bilirubin [Mass/Vol] 0.3 mg/dL 0.2-1.3 [facility] Calcium [Mass/Vol] 9.2 mg/dL 8.5-10.2 [facility] Chloride [Moles/Vol] 98 mmol/L 98-107 [facility] CO2 [Moles/Vol] 26 mmol/L 22-30 [facility] Creatinine [Mass/Vol] 1.41 mg/dL High 0.73-1.22 [facility] Glucose [Mass/Vol] 120 mg/dL High 74-99 [facility] Comment on above: The [place] Diabete s Association (ADA) provides guidance for cutoff values for fasting glucose and random glucose. The ADA defines fasting as no caloric intake for at least 8 hours. Fasting plasma glucose results between 100 to 125 mg/dL indicate increased risk for diabetes (prediabetes).Fasting plasma glucose results greater than or equal to 126 mg/dL meet the criteria for diagnosis of diabetes. In the absence of unequivocal hyperglycemia, results should be confirmed by repeat testing. In a patient with classic symptoms of hyperglycemia or hyperglycemic crisis, random plasma glucose results greater than or equal to 200 mg/dL meet the criteria for diagnosis of diabetes.Reference: Standards of Medical Care in Diabetes 2016, [place] [employer]. Diabetes Care. 2016.39(Suppl 1). Potassium [Moles/Vol] 4.4 mmol/L 3.7-5.1 [facility] Protein [Mass/Vol] 0.00 g/dL <=0.00 [facility] Sodium [Moles/Vol] 134 mmol/L Low 136-144 [facility] Urea nitrogen [Mass/Vol] 20 mg/dL 03-24 [facility] Laboratory - Hematology and Cell countson 01-22-2024 Eosinophils (Bld) [#/Vol] 0.18 10*3/uL <0.46 [facility] Leukocytes [#/volume] correc tony for nucleated erythrocytes in Blood by Automated counon 01-22-2024 WBC corrected for nucl RBC Auto (Bld) [#/Vol] 10.57 k/uL 3.70-11.00 [facility] Lymphocytes Auto (Bld) [#/Vo l]on 01-22-2024 Lymphocytes (Bld) [#/Vol] 0.82 10*3/uL Low 1.00-4.00 [facility] Lymphocytes/100 WBC Auto (Bl d)on 01-22-2024 Lymphocytes/100 WBC (Bld) 7.8 % [facility] MCH Auto (RBC) [Entitic mass ]on 01-22-2024 MCH (RBC) [Entitic mass] 35.2 pg High 26.0-34.0 [facility] MCHC Auto (RBC) [Mass/Vol]on 01-22-2024 MCHC (RBC) [Mass/Vol] 33.4 g/dL 30.5-36.0 [facility] MCV Auto (RBC) [Entitic vol] on 01-22-2024 MCV (RBC) [Entitic vol] 105.2 fL High 80.0-100.0 [facility] Monocytes Auto (Bld) [#/Vol] on 01-22-2024 Monocytes (Bld) [#/Vol] 1.56 10*3/uL High <0.87 [facility] Monocytes/100 WBC Auto (Bld) on 01-22-2024 Monocytes/100 WBC (Bld) 14.8 % [facility] Neutrophils Auto (Bld) [#/Vo l]on 01-22-2024 Neutrophils (Bld) [#/Vol] 7.91 10*3/uL High 1.45-7.50 [facility] Neutrophils/100 WBC Auto (Bl d)on 01-22-2024 Neutrophils/100 WBC (Bld) 74.8 % [facility] No Panel Informationon 01-21 Estimated GFR (CKD-EPI) 50 mL/min/1.73m??? Low >=60 [facility] Comment on above: Estimated Glomerular Filtration Rate (eGFR) is calculated using the 2020 CKD-EPI creatinine equation. This equation utilizes serum creatinine, sex, and age as parameters. The creatinine assay has traceable calibration to isotope dilution-mass spectrometry. Refer to KDIGO guidelines for clinical interpretation. In patients with unstable renal function, e.g. those with acute kidney injury, the eGFR may not accurately reflect actual GFR. Leuk/Lymph Sign Pathologist (Misc) Reviewed by Panchito Colbert MD, Ph.D ([id number]) [facility] Miscellaneous Test 6 See comment [facility] Comment on above: Not Applicable. Miscellaneous Test Comment Reviewed by Panchito Colbert MD, Ph.D ([id number]) [facility] Normal RBC Morphology Reviewed: see resu lts of individual morphologies [facility] Protein Electrophoresis Note No definitive M protein is identified on protein electrophoresis. No definitive M protein is identified on protein electrophor esis. [facility] Serum Immunofixation No M protein is identified. No M protein is identified. [facility] Nucleated RBC Auto (Bld) [#/ Vol]on 01-22-2024 Nucleated RBC (Bld) [#/Vol] 10*3/uL <0.01 [facility] Nucleated erythrocytes [Pres ence] in Blood by Automated counton 01-22-2024 Nucleated RBC Auto Ql (Bld) 0.0 /100{WBC} [facility] Ovalocyte detectionon 2023 Ovalocytes LM Ql (Bld) Few Fi [facility] PROTEIN ELECTROPHORESIS SERU M (P)on 01-22-2024 Albumin [Mass/Vol] 2.99 g/dL Low 3.43-5.41 [facility] Comment on above: Order Comment: Speci men Type: BLOOD SPECIMENOrdering Facility: [facility] Address: [address] [place] [address] Performed By: #### L [id number] ####[facility] [id number] [place] [address] [place] Alpha 1 globulin Elph [Mass/Vol] 0.36 g/dL Normal 0.18-0.43 [facility] Comment on above: Order Comment: Speci men Type: BLOOD SPECIMENOrdering Facility: [facility] Address: [address] [place] [address] Performed By: #### L [id number] ####[facility] [id number] [place] [address] [place] Alpha 2 globulin Elph [Mass/Vol] 1.12 g/dL High 0.42-0.98 [facility] Comment on above: Order Comment: Speci men Type: BLOOD SPECIMENOrdering Facility: [facility] Address: [address] [place] [address] Performed By: #### L [id number] ####[facility] LABIA [id number] [place] [address] [place] Beta globulin Elph [Mass/Vol] 0.80 g/dL Normal 0.61-1.17 [facility] Comment on above: Order Comment: Speci men Type: BLOOD SPECIMENOrdering Facility: [facility] Address: [address] [place] [address] Performed By: #### L [id number] ####[facility] LABCLIA [id number] [place] [address] [place] Gamma globulin Elph [Mass/Vol] 0.93 g/dL Normal 0.53-1.51 [facility] Comment on above: Order Comment: Speci men Type: BLOOD SPECIMENOrdering Facility: [facility] Address: [address] [place] [address] Performed By: #### L [id number] ####[facility] LABIA [id number] [place] [address] [place] M-PROTEIN LOCATION Normal [facility] Comment on above: Order Comment: Speci men Type: BLOOD SPECIMENOrdering Facility: [facility] Address: [address] [place] [address] Result Comment: Not Applicable. Performed By: #### L [id number] ####[facility] LABIA [id number] [place] [address] [place] Protein Fractions [Interp] No definitive M protein is identified on protein electrophoresis. Normal No definitive M protein is identified on protein electrophor esis. [facility] Comment on above: Order Comment: Speci men Type: BLOOD SPECIMENOrdering Facility: [facility] Address: [address] [place] [address] Performed By: #### L [id number] ####[facility] LABIA [id number] [place] [address] [place] Protein.monoclonal Elph [Mass/Vol] 0.00 g/dL Normal <=0.00 [facility] Comment on above: Order Comment: Speci men Type: BLOOD SPECIMENOrdering Facility: [facility] Address: [address] [place] [address] Performed By: #### L [id number] ####[facility] LABIA [id number] [place] [address] [place] SPE STAFF REVIEW Reviewed by Panchito Colbert MD, Ph.D ([id number]) Normal [facility] Comment on above: Order Comment: Speci men Type: BLOOD SPECIMENOrdering Facility: [facility] Address: [address] [place] [address] Performed By: #### L [id number] ####[facility] LABCLIA [id number] [place] [address] [place] Platelet adequacy [Presence] in Blood by Light microscopyon 01-22-2024 Platelets LM Ql (Bld) Adequate [facility] Platelet mean volume Auto (B ld) [Entitic vol]on 01-22-2024 Platelet mean volume (Bld) [Entitic vol] 10.1 fL 9.0-12.7 [facility] Platelets Auto (Bld) [#/Vol] on 01-22-2024 Platelets (Bld) [#/Vol] 281 10*3/uL 150-400 [facility] Polychromasia [Presence] in Blood by Light microscopyon 01-22-2024 Polychromasia LM Ql (Bld) Slight [facility] Prot SerPl-mCncon 01-22-2024 Protein [Mass/Vol] 6.2 g/dL Low 6.3-8.0 [facility] Comment on above: Order Comment: Speci men Type: BLOOD SPECIMENOrdering Facility: [facility] Address: [address] [place] [address] Performed By: #### 2 885-2 ####[facility] LABIA [id number] [place] [id number] [place] Protein [Mass/volume] in Ser um or Plasmaon 01-22-2024 Protein [Mass/Vol] 6.2 g/dL Low 6.3-8.0 [facility] RBC Auto (Bld) [#/Vol]on RBC (Bld) [#/Vol] 3.27 10*6/uL Low 4.20-6.00 [facility] Serum or plasma alpha 1 glob ulin measurement by electrophoresis (mass/volume)on 01-22-2024 Alpha 1 globulin Elph [Mass/Vol] 0.36 g/dL 0.18-0.43 [facility] Serum or plasma alpha 2 glob ulin measurement by electrophoresis (mass/volume)on 01-22-2024 Alpha 2 globulin Elph [Mass/Vol] 1.12 g/dL High 0.42-0.98 [facility] Serum or plasma anion gap de terminationon 01-22-2024 Anion gap [Moles/Vol] 10 mmol/L 8-15 [facility] Serum or plasma beta globuli n measurement by electrophoresis (mass/volume)on 01-22-2024 Beta globulin Elph [Mass/Vol] 0.80 g/dL 0.61-1.17 [facility] Serum or plasma gamma globul in measurement by electrophoresis (mass/volume)on 01-22-2024 Gamma globulin Elph [Mass/Vol] 0.93 g/dL 0.53-1.51 [facility] CBC AND AUTO DIFFon 01-03-20 ABSOLUTE BASOPHIL 0.0 X10E9/L Normal 0.0-0.2 [facility] Comment on above: Performed By: #### C LUCIA, BMP, , 12795-3, 59967-7 #### [facility] ([id number]) [address] [place] [address] 73117 ABSOLUTE NEUTROPHIL 6.4 X10E9/L Normal 1.5-6.6 [facility] Comment on above: Performed By: #### C BCA, BMP, , 04018-1, 62200-8 #### [facility] ([id number]) [address] [place] [address] 06365 Basophils/100 WBC (Bld) 0.1 % Normal [facility] Comment on above: Performed By: #### C BCA, BMP, , 19507-0, 74710-2 #### [facility] ([id number]) [address] [place] [address] 27748 Eosinophils (Bld) [#/Vol] 0.0 10*3/uL Normal 0.0-0.4 [facility] Comment on above: Performed By: #### C BCA, BMP, 13189-1, 95380-4, 06083-4 #### [facility] ([id number]) [address] [place] [address] 15163 Eosinophils/100 WBC (Bld) 0.0 % Normal [facility] Comment on above: Performed By: #### C BCA, BMP, 92210-1, 04242-9, 84112-1 #### [facility] ([id number]) [address] [place] [address] 57668 Erythrocyte distribution width (RBC) [Ratio] 15.3 % High 11.5-15.0 [facility] Comment on above: Performed By: #### C BCA, BMP, 09744-6, 47418-0, 32262-6 #### [facility] ([id number]) [address] [place] [address] 68436 Hematocrit (Bld) [Volume fraction] 36.9 % Low 39-49 [facility] Comment on above: Performed By: #### C BCA, BMP, 41161-8, 23908-4, 98989-6 #### [facility] ([id number]) [address] [place] [address] 93968 Hemoglobin (Bld) [Mass/Vol] 12.5 g/dL Low 13.0-17.0 [facility] Comment on above: Performed By: #### C BCA, BMP, 64979-8, 19350-0, 64170-8 #### [facility] ([id number]) [address] [place] [address] 20423 Lymphocytes (Bld) [#/Vol] 0.6 10*3/uL Low 1.0-3.5 [facility] Comment on above: Performed By: #### C BCA, BMP, 29705-1, 11134-8, 18759-0 #### [facility] ([id number]) [address] [place] [address] 86757 Lymphocytes/100 WBC (Bld) 8.3 % Normal [facility] Comment on above: Performed By: #### C BCA, BMP, 08210-3, 87556-3, 35043-9 #### [facility] ([id number]) [address] [place] [address] 41279 MCH (RBC) [Entitic mass] 35.5 pg High 27-34 [facility] Comment on above: Performed By: #### C BCA, BMP, 27006-4, 14518-3, 74421-1 #### [facility] ([id number]) [address] [place] [address] 35172 MCHC (RBC) [Mass/Vol] 34.0 g/dL Normal 32-36 [facility] Comment on above: Performed By: #### C BCA, BMP, 27994-4, 93319-9, 52189-4 #### [facility] ([id number]) [address] [place] [address] 90077 MCV (RBC) [Entitic vol] 104 fL High 80-100 [facility] Comment on above: Performed By: #### Lexis BCA, BMP, 75405-9, 55567-6, 99490-1 #### [facility] ([id number]) [address] [place] [address] 89886 Monocytes (Bld) [#/Vol] 0.3 10*3/uL Normal 0-0.9 [facility] Comment on above: Performed By: #### Lexis BCA, BMP, 28978-0, 04133-6, 50320-4 #### [facility] ([id number]) [address] [place] [address] 82386 Monocytes/100 WBC (Bld) 4.6 % Normal [facility] Comment on above: Performed By: #### C BCA, BMP, 34942-4, 53039-9, 86067-7 #### [facility] ([id number]) [address] [place] [address] 57406 Neutrophils/100 WBC (Bld) 87.0 % Normal [facility] Comment on above: Performed By: #### Lexis BCA, BMP, 83756-3, 73672-1, 77249-9 #### [facility] ([id number]) [address] [place] [address] 05301 Platelet mean volume (Bld) [Entitic vol] 9.6 fL Normal 7-12 [facility] Comment on above: Performed By: #### C BCA, BMP, 05372-4, 97354-1, 30269-0 #### [facility] ([id number]) [address] [place] [address] 12065 Platelets (Bld) [#/Vol] 194 10*3/uL Normal 150-450 [facility] Comment on above: Performed By: #### Lexis BCA, BMP, 76106-8, 60260-4, 62288-5 #### [facility] ([id number]) [address] [place] [address] 57989 RBC COUNT 3.53 X10E12/L Low 4.10-5.70 [facility] Comment on above: Performed By: #### Lexis BCA, BMP, 39389-3, 79273-7, 43768-5 #### [facility] ([id number]) [address] [place] [address] 64966 WBC (Bld) [#/Vol] 7.3 10*3/uL Normal 4.0-11.0 [facility] Comment on above: Performed By: #### Lexis BCA, BMP, 98254-8, 89269-1, 39164-2 #### [facility] ([id number]) [address] [place] [address] COMPREHENSIVE METABOLIC PANE Robin 01-03-2024 Albumin [Mass/Vol] 2.9 g/dL Low 3.2-5.3 [facility] Comment on above: Performed By: #### C BCA, BMP, 60640-6, 33474-6, 45591-9 #### [facility] ([id number]) [address] [place] [address] 19609 ALP [Catalytic activity/Vol] 88 U/L Normal 39-130 [facility] Comment on above: Performed By: #### C BCA, BMP, 91522-6, 36443-8, 33885-8 #### [facility] ([id number]) [address] [place] [address] 97800 ALT [Catalytic activity/Vol] 37 U/L Normal 0-40 [facility] Comment on above: Performed By: #### C BCA, BMP, 57562-9, 91919-2, 97006-5 #### [facility] ([id number]) [address] [place] [address] 63192 Anion gap [Moles/Vol] 9 mmol/L Normal 5-15 [facility] Comment on above: Performed By: #### C BCA, BMP, 87095-0, 64864-0, 42637-0 #### [facility] ([id number]) [address] [place] [address] 99695 AST [Catalytic activity/Vol] 52 U/L High 0-41 [facility] Comment on above: Performed By: #### C BCA, BMP, 15167-6, 03540-0, 07721-9 #### [facility] ([id number]) [address] [place] [address] 65402 Bilirubin [Mass/Vol] 0.4 mg/dL Normal 0.3-1.2 [facility] Comment on above: Performed By: #### C BCA, BMP, 26249-3, 62933-1, 67463-0 #### [facility] ([id number]) [address] [place] [address] 30759 Calcium [Mass/Vol] 8.5 mg/dL Normal 8.5-10.5 [facility] Comment on above: Performed By: #### C BCA, BMP, 07005-6, 00441-0, 72496-5 #### [facility] ([id number]) [address] [place] [address] 05165 Chloride [Moles/Vol] 100 mmol/L Normal 98-109 [facility] Comment on above: Performed By: #### C BCA, BMP, 21517-2, 53565-8, 91302-4 #### [facility] ([id number]) [address] [place] [address] 94122 CO2 [Moles/Vol] 24 mmol/L Normal 22-32 [facility] Comment on above: Performed By: #### C BCA, BMP, 71550-0, 69668-7, 68539-7 #### [facility] ([id number]) [address] [place] [address] 46527 Creatinine [Mass/Vol] 1.25 mg/dL High 0.70-1.20 [facility] Comment on above: Result Comment: METH OD TRACEABLE TO IDMS STANDARD Performed By: #### C BCA, BMP, 17145-8, 41505-9, 83514-3 #### [facility] ([id number]) [address] [place] [address] 73910 GFR/1.73 sq M.predicted among non-blacks MDRD (S/P/Bld) [Vol rate/Area] 58 mL/min/{1.73_m2} Low >59 [facility] Comment on above: Result Comment: Reported eGFR is based on the CKD-EPI 2020 equation that does not use a race coefficient. Performed By: #### C BCA, BMP, 72781-0, 24767-7, 97008-1 #### [facility] ([id number]) [address] [place] [address] 93463 Glucose [Mass/Vol] 146 mg/dL High 65-99 [facility] Comment on above: Performed By: #### C BCA, BMP, 89176-6, 36705-9, 74379-7 #### [facility] ([id number]) [address] [place] [address] 96264 Potassium [Moles/Vol] 4.2 mmol/L Normal 3.5-5.0 [facility] Comment on above: Performed By: #### C BCA, BMP, 22977-6, 30918-8, 63361-5 #### [facility] ([id number]) [address] [place] [address] 58357 Protein [Mass/Vol] 6.4 g/dL Normal 6.0-8.0 [facility] Comment on above: Performed By: #### C BCA, BMP, 38992-7, 11618-0, 42830-6 #### [facility] ([id number]) [address] [place] [address] 40676 Sodium [Moles/Vol] 133 mmol/L Low 134-146 [facility] Comment on above: Performed By: #### C BCA, BMP, 22503-0, 07687-2, 03314-1 #### [facility] ([id number]) [address] [place] [address] 82271 Urea nitrogen [Mass/Vol] 26 mg/dL Normal 5-27 [facility] Comment on above: Performed By: #### C BCA, BMP, 11845-1, 76083-8, 56845-1 #### [facility] ([id number]) [address] [place] [address] 09078 MAGNESIUMon 01-03-2024 Magnesium [Mass/Vol] 2.2 mg/dL Normal 1.8-2.6 [facility] Comment on above: Performed By: #### C BCA, BMP, 60729-7, 01334-6, 59210-3 #### [facility] ([id number]) [address] [place] [address] 33043 CBC AND AUTO DIFFon 01-02-20 24 Band form neutrophils/100 WBC (Bld) 2.0 % Normal [facility] Comment on above: Performed By: #### C BCA, BMP, 31008-4, 99532-0, 27722-8 #### [facility] ([id number]) [address] [place], [place] [address] Erythrocyte distribution width (RBC) [Ratio] 15.0 % Normal 11.5-15.0 [facility] Comment on above: Performed By: #### Lexis BCA, BMP, 13309-8, 24877-6, 71994-2 #### [facility] ([id number]) [address] [place] [address] 69803 Hematocrit (Bld) [Volume fraction] 32.7 % Low 39-49 [facility] Comment on above: Performed By: #### Lexis BCA, BMP, 74130-8, 33778-1, 34937-5 #### [facility] ([id number]) [address] [place] [address] 63834 Hemoglobin (Bld) [Mass/Vol] 11.1 g/dL Low 13.0-17.0 [facility] Comment on above: Performed By: #### C BCA, BMP, 12672-1, 46532-9, 96918-9 #### [facility] ([id number]) [address] [place], [place] [address] Lymphocytes (Bld) [#/Vol] 0.8 10*3/uL Low 1.0-3.5 [facility] Comment on above: Performed By: #### Lxeis BCA, BMP, 46413-7, 62818-3, 85731-5 #### [facility] ([id number]) [address] [place] [address] 62287 Lymphocytes/100 WBC (Bld) 10.0 % Normal [facility] Comment on above: Performed By: #### C BCA, BMP, 85456-5, 34192-7, 03131-0 #### [facility] ([id number]) [address] [place] [address] 18844 MCH (RBC) [Entitic mass] 35.7 pg High 27-34 [facility] Comment on above: Performed By: #### C BCA, BMP, 71614-1, 12375-0, 92272-2 #### [facility] ([id number]) [address] [place] [address] 18996 MCHC (RBC) [Mass/Vol] 34.0 g/dL Normal 32-36 [facility] Comment on above: Performed By: #### C BCA, BMP, 83258-7, 99494-7, 66365-9 #### [facility] ([id number]) [address] [place] [address] 37713 MCV (RBC) [Entitic vol] 105 fL High 80-100 [facility] Comment on above: Performed By: #### Lexis BCA, BMP, 80687-3, 43330-3, 69805-7 #### [facility] ([id number]) [address] [place] [address] 74876 Monocytes (Bld) [#/Vol] 1.1 10*3/uL High 0-0.9 [facility] Comment on above: Performed By: #### Lexis BCA, BMP, 30558-8, 53160-1, 17966-7 #### [facility] ([id number]) [address] [place] [address] 27015 Monocytes/100 WBC (Bld) 14.0 % Normal [facility] Comment on above: Performed By: #### C BCA, BMP, 24288-6, 19776-4, 47595-4 #### [facility] ([id number]) [address] [place] [address] 65833 Neutrophils (Bld) [#/Vol] 6.1 10*3/uL Normal 1.5-6.6 [facility] Comment on above: Performed By: #### C BCA, BMP, 45392-7, 46464-2, 43433-0 #### [facility] ([id number]) [address] [place] [address] 33093 Platelet mean volume (Bld) [Entitic vol] 8.7 fL Normal 7-12 [facility] Comment on above: Performed By: #### C BCA, BMP, 30109-2, 18692-9, 91616-9 #### [facility] ([id number]) [address] [place] [address] 38273 Platelets (Bld) [#/Vol] 162 10*3/uL Normal 150-450 [facility] Comment on above: Performed By: #### C BCA, BMP, 89639-6, 36827-5, 39014-6 #### [facility] ([id number]) [address] [place] [address] 54085 RBC COUNT 3.12 X10E12/L Low 4.10-5.70 [facility] Comment on above: Performed By: #### C BCA, BMP, 92032-1, 56388-9, 50159-2 #### [facility] ([id number]) [address] [place] [address] 68235 RBC morphology finding Nom (Bld) REVIEWED Normal [facility] Comment on above: Performed By: #### C BCA, BMP, 41884-6, 30619-0, 18438-5 #### [facility] ([id number]) [address] [place] [address] 45162 SEG NEUTROPHIL 74.0 % Normal [facility] Comment on above: Performed By: #### C BCA, BMP, 25351-1, 63248-5, 14757-0 #### [facility] ([id number]) [address] [place] [address] 12434 WBC (Bld) [#/Vol] 8.0 10*3/uL Normal 4.0-11.0 [facility] Comment on above: Performed By: #### C BCA, BMP, 98222-2, 97069-3, 69592-8 #### [facility] ([id number]) [address] [place] [address] 99275 COMPREHENSIVE METABOLIC PANE Robin 01-02-2024 Albumin [Mass/Vol] 2.7 g/dL Low 3.2-5.3 [facility] Comment on above: Performed By: #### C BCA, BMP, 20905-0, 11500-1, 29535-8 #### [facility] ([id number]) [address] [place] [address] 56672 ALP [Catalytic activity/Vol] 73 U/L Normal 39-130 [facility] Comment on above: Performed By: #### C BCA, BMP, 94903-4, 36832-6, 59774-0 #### [facility] ([id number]) [address] [place] [address] 00075 ALT [Catalytic activity/Vol] 35 U/L Normal 0-40 [facility] Comment on above: Performed By: #### C BCA, BMP, 07615-8, 20568-0, 20345-7 #### [facility] ([id number]) [address] [place] [address] 93827 Anion gap [Moles/Vol] 5 mmol/L Normal 5-15 [facility] Comment on above: Performed By: #### C BCA, BMP, 37237-7, 92211-1, 93684-9 #### [facility] ([id number]) [address] [place] [address] 46590 AST [Catalytic activity/Vol] 55 U/L High 0-41 [facility] Comment on above: Performed By: #### C BCA, BMP, 52906-6, 55014-9, 66411-2 #### [facility] ([id number]) [address] [place] [address] 54672 Bilirubin [Mass/Vol] 0.6 mg/dL Normal 0.3-1.2 [facility] Comment on above: Performed By: #### C BCA, BMP, 94159-8, 61363-6, 80279-1 #### [facility] ([id number]) [address] [place] [address] 76057 Calcium [Mass/Vol] 7.9 mg/dL Low 8.5-10.5 [facility] Comment on above: Performed By: #### C BCA, BMP, 33134-9, 82816-5, 84498-3 #### [facility] ([id number]) [address] [place] [address] 53185 Chloride [Moles/Vol] 103 mmol/L Normal 98-109 [facility] Comment on above: Performed By: #### C BCA, BMP, 39397-4, 23144-7, 62656-1 #### [facility] ([id number]) [address] [place] [address] 88827 CO2 [Moles/Vol] 25 mmol/L Normal 22-32 [facility] Comment on above: Performed By: #### C BCA, BMP, 80582-5, 22654-5, 41328-4 #### [facility] ([id number]) [address] [place] [address] 81786 Creatinine [Mass/Vol] 1.20 mg/dL Normal 0.70-1.20 [facility] Comment on above: Result Comment: METH OD TRACEABLE TO IDMS STANDARD Performed By: #### C BCA, BMP, 47315-9, 67255-3, 35287-1 #### [facility] ([id number]) [address] [place] [address] 77977 GFR/1.73 sq M.predicted among non-blacks MDRD (S/P/Bld) [Vol rate/Area] 61 mL/min/{1.73_m2} Normal >59 [facility] Comment on above: Result Comment: Reported eGFR is based on the CKD-EPI 2020 equation that does not use a race coefficient. Performed By: #### C LUCIA, BMP, 84761-5, 04966-9, 97159-9 #### [facility] ([id number]) [address] [place] [address] 70326 Glucose [Mass/Vol] 99 mg/dL Normal 65-99 [facility] Comment on above: Performed By: #### C LUCIA, BMP, 33429-0, 43217-5, 21933-2 #### [facility] ([id number]) [address] [place] [address] 92701 Potassium [Moles/Vol] 4.0 mmol/L Normal 3.5-5.0 [facility] Comment on above: Performed By: #### C BCA, BMP, 07301-5, 04379-9, 18311-8 #### [facility] ([id number]) [address] [place] [address] 54333 Protein [Mass/Vol] 5.7 g/dL Low 6.0-8.0 [facility] Comment on above: Performed By: #### C BCA, BMP, 82707-2, 31923-1, 33884-7 #### [facility] ([id number]) [address] [place] [address] 76471 Sodium [Moles/Vol] 133 mmol/L Low 134-146 [facility] Comment on above: Performed By: #### C BCA, BMP, 42401-4, 27615-7, 85856-6 #### [facility] ([id number]) [address] [place] [address] 32633 Urea nitrogen [Mass/Vol] 24 mg/dL Normal 5-27 [facility] Comment on above: Performed By: #### C BCA, BMP, 82591-4, 16724-1, 63012-4 #### [facility] ([id number]) [address] [place] [address] 46856 MAGNESIUMon 01-02-2024 Magnesium [Mass/Vol] 2.0 mg/dL Normal 1.8-2.6 [facility] Comment on above: Performed By: #### C BCA, BMP, 65138-0, 02695-1, 32467-5 #### [facility] ([id number]) [address] [place] [address] 51909 Procalcitonin IA [Mass/Vol]o n 01-02-2024 PROCALCITONIN 0.08 ng/mL High <0.05 [facility] Comment on above: Result Comment: NOTE <0.50 ng/mL - Low risk of severe sepsis and/or septic shock. <2.00 ng/mL - Recommend retesting within 6-24 hours. >2.00 ng/mL - High risk of sepsis and/or septic shock. Performed By: #### C BCA, BMP, 32705-4, 93706-0, 74983-5 #### [facility] ([id number]) [address] [place] [address] 62413 BLOOD CULTUREon 01-01-2024 Bacteria identified Aer cx Nom (Bld) SPECIMEN NOTES SUBOPTIMAL VOLUME OF BLOOD COLLECTED, RESULTS MAY BE AFFECTED. CULTURE RESULTS NO GROWTH 5 DAYS Normal [facility] Comment on above: Performed By: #### C BCA, BMP, 20351-7, 48368-8, 46650-9 #### [facility] ([id number]) [address] [place] [address] 42672 Bacteria identified Aer cx Nom (Bld) SPECIMEN NOTES SUBOPTIMAL VOLUME OF BLOOD COLLECTED, RESULTS MAY BE AFFECTED. CULTURE RESULTS NO GROWTH 5 DAYS Normal [facility] Comment on above: Performed By: #### C EDIL MYERS, 13607-6, 96302-1, 95206-0 #### [facility] ([id number]) [address] [place] [address] 62812 CBC AND AUTO DIFFon 01-01-20 24 Eosinophils (Bld) [#/Vol] 0.1 10*3/uL Normal 0.0-0.4 [facility] Comment on above: Performed By: #### C LUCIA, BMP, 27601-3, 44934-0, 37759-7 #### [facility] ([id number]) [address] [place] [address] 33621 Eosinophils/100 WBC (Bld) 0.9 % Normal [facility] Comment on above: Performed By: #### C LUCIA, BMP, 13936-1, 72493-8, 10635-4 #### [facility] ([id number]) [address] [place] [address] 80014 Erythrocyte distribution width (RBC) [Ratio] 15.4 % High 11.5-15.0 [facility] Comment on above: Performed By: #### C LUCIA, EDIL, 85357-6, 06624-9, 34904-2 #### [facility] ([id number]) [address] [place] [address] 58802 Hematocrit (Bld) [Volume fraction] 32.9 % Low 39-49 [facility] Comment on above: Performed By: #### C LUCIA, BMP, 79070-2, 56420-3, 29344-1 #### [facility] ([id number]) [address] [place] [address] 24413 Hemoglobin (Bld) [Mass/Vol] 11.1 g/dL Low 13.0-17.0 [facility] Comment on above: Performed By: #### C BCA, BMP, 42140-0, 62086-1, 54727-0 #### [facility] ([id number]) [address] [place] [address] 18938 Lymphocytes (Bld) [#/Vol] 0.4 10*3/uL Low 1.0-3.5 [facility] Comment on above: Performed By: #### C BCA, BMP, 68433-7, 62752-5, 59440-8 #### [facility] ([id number]) [address] [place] [address] 51749 Lymphocytes/100 WBC (Bld) 4.7 % Normal [facility] Comment on above: Performed By: #### C BCA, BMP, 23438-8, 91791-3, 87478-5 #### [facility] ([id number]) [address] [place] [address] 11500 MCH (RBC) [Entitic mass] 35.6 pg High 27-34 [facility] Comment on above: Performed By: #### C BCA, BMP, 47371-4, 55319-1, 31869-7 #### [facility] ([id number]) [address] [place] [address] 48692 MCHC (RBC) [Mass/Vol] 33.6 g/dL Normal 32-36 [facility] Comment on above: Performed By: #### C BCA, BMP, 11785-3, 24937-4, 36231-2 #### [facility] ([id number]) [address] [place] [address] 26354 MCV (RBC) [Entitic vol] 106 fL High 80-100 [facility] Comment on above: Performed By: #### C BCA, BMP, 40806-0, 49437-1, 95728-6 #### [facility] ([id number]) [address] [place] [address] 72661 Monocytes (Bld) [#/Vol] 2.5 10*3/uL High 0-0.9 [facility] Comment on above: Performed By: #### C BCA, BMP, 91740-1, 51075-5, 16113-5 #### [facility] ([id number]) [address] [place] [address] 54877 Monocytes/100 WBC (Bld) 28.3 % Normal [facility] Comment on above: Performed By: #### C BCA, BMP, 64530-5, 48973-0, 12828-2 #### [facility] ([id number]) [address] [place] [address] 97073 Neutrophils (Bld) [#/Vol] 5.7 10*3/uL Normal 1.5-6.6 [facility] Comment on above: Performed By: #### C BCA, BMP, 29900-6, 46949-3, 25681-0 #### [facility] ([id number]) [address] [place] [address] 41376 OVALOCYTE 1+ Abnormal NONE [facility] Comment on above: Performed By: #### C BCA, BMP, 87492-0, 40618-6, 28351-1 #### [facility] ([id number]) [address] [place] [address] 61788 Platelet mean volume (Bld) [Entitic vol] 9.0 fL Normal 7-12 [facility] Comment on above: Performed By: #### C BCA, BMP, 68462-8, 05981-3, 68880-8 #### [facility] ([id number]) [address] [place] [address] 18553 Platelets (Bld) [#/Vol] 166 10*3/uL Normal 150-450 [facility] Comment on above: Performed By: #### C BCA, BMP, 67252-7, 04826-9, 80473-9 #### [facility] ([id number]) [address] [place] [address] 12836 POLYCHROMASIA 1+ Abnormal NONE [facility] Comment on above: Performed By: #### C BCA, BMP, 76796-7, 01836-3, 36007-9 #### [facility] ([id number]) [address] [place] [address] 04438 RBC COUNT 3.11 X10E12/L Low 4.10-5.70 [facility] Comment on above: Performed By: #### C BCA, BMP, 87876-0, 60112-3, 56405-4 #### [facility] ([id number]) [address] [place] [address] 74487 SEG NEUTROPHIL 66.1 % Normal [facility] Comment on above: Performed By: #### C BCA, BMP, 94885-0, 53270-7, 28910-0 #### [facility] ([id number]) [address] [place] [address] 32558 STOMATOCYTE 1+ Abnormal [facility] Comment on above: Performed By: #### C BCA, BMP, 16320-2, 30505-2, 50243-8 #### [facility] ([id number]) [address] [place] [address] 75264 TEARDROP 1+ Abnormal [facility] Comment on above: Performed By: #### C BCA, BMP, 05942-0, 39442-0, 63985-8 #### [facility] ([id number]) [address] [place] [address] 44053 WBC (Bld) [#/Vol] 8.7 10*3/uL Normal 4.0-11.0 [facility] Comment on above: Performed By: #### C BCA, BMP, 67163-1, 79496-8, 17535-6 #### [facility] ([id number]) [address] [place] [address] 29503 COMPREHENSIVE METABOLIC PANE Robin 01-01-2024 Albumin [Mass/Vol] 2.8 g/dL Low 3.2-5.3 [facility] Comment on above: Performed By: #### C BCA, BMP, 67044-3, 35633-5, 10827-0 #### [facility] ([id number]) [address] [place] [address] 68282 ALP [Catalytic activity/Vol] 76 U/L Normal 39-130 [facility] Comment on above: Performed By: #### C BCA, BMP, 24153-1, 05535-1, 17301-7 #### [facility] ([id number]) [address] [place] [address] 78378 ALT [Catalytic activity/Vol] 34 U/L Normal 0-40 [facility] Comment on above: Performed By: #### C BCA, BMP, 02319-3, 22262-6, 76803-1 #### [facility] ([id number]) [address] [place] [address] 25922 Anion gap [Moles/Vol] 7 mmol/L Normal 5-15 [facility] Comment on above: Performed By: #### C BCA, BMP, 61405-0, 23095-9, 37002-4 #### [facility] ([id number]) [address] [place] [address] 50684 AST [Catalytic activity/Vol] 68 U/L High 0-41 [facility] Comment on above: Performed By: #### C BCA, BMP, 32400-1, 06619-6, 76684-2 #### [facility] ([id number]) [address] [place] [address] 59624 Bilirubin [Mass/Vol] 0.8 mg/dL Normal 0.3-1.2 [facility] Comment on above: Performed By: #### C BCA, BMP, 81782-7, 68657-1, 77084-5 #### [facility] ([id number]) [address] [place] [address] 65434 Calcium [Mass/Vol] 7.7 mg/dL Low 8.5-10.5 [facility] Comment on above: Performed By: #### C BCA, BMP, 30350-1, 56756-1, 47840-2 #### [facility] ([id number]) [address] [place] [address] 70182 Chloride [Moles/Vol] 101 mmol/L Normal 98-109 [facility] Comment on above: Performed By: #### C BCA, BMP, 40125-3, 43546-5, 67069-3 #### [facility] ([id number]) [address] [place] [address] 20870 CO2 [Moles/Vol] 25 mmol/L Normal 22-32 [facility] Comment on above: Performed By: #### C BCA, BMP, 51136-3, 62935-9, 40128-9 #### [facility] ([id number]) [address] [place] [address] 64279 Creatinine [Mass/Vol] 1.07 mg/dL Normal 0.70-1.20 [facility] Comment on above: Result Comment: METH OD TRACEABLE TO IDMS STANDARD Performed By: #### C BCA, BMP, 13843-6, 60178-9, 96903-6 #### [facility] ([id number]) [address] [place] [address] 76375 GFR/1.73 sq M.predicted among non-blacks MDRD (S/P/Bld) [Vol rate/Area] 70 mL/min/{1.73_m2} Normal >59 [facility] Comment on above: Result Comment: Reported eGFR is based on the CKD-EPI 2020 equation that does not use a race coefficient. Performed By: #### C BCA, BMP, 27256-0, 16245-6, 57423-0 #### [facility] ([id number]) [address] [place] [address] 74958 Glucose [Mass/Vol] 98 mg/dL Normal 65-99 [facility] Comment on above: Performed By: #### C BCA, BMP, 51081-4, 28980-2, 93841-3 #### [facility] ([id number]) [address] [place] [address] 91920 Potassium [Moles/Vol] 3.8 mmol/L Normal 3.5-5.0 [facility] Comment on above: Performed By: #### C BCA, BMP, 63197-8, 37260-1, 40205-4 #### [facility] ([id number]) [address] [place] [address] 03411 Protein [Mass/Vol] 5.8 g/dL Low 6.0-8.0 [facility] Comment on above: Performed By: #### C BCA, BMP, 94165-5, 73235-0, 98269-5 #### [facility] ([id number]) [address] [place] [address] 17443 Sodium [Moles/Vol] 133 mmol/L Low 134-146 [facility] Comment on above: Performed By: #### C BCA, BMP, 16153-5, 01553-3, 68384-0 #### [facility] ([id number]) [address] [place] [address] 41205 Urea nitrogen [Mass/Vol] 25 mg/dL Normal 5-27 [facility] Comment on above: Performed By: #### C BCA, BMP, 47730-8, 19891-7, 62762-4 #### [facility] ([id number]) [address] [place] [address] 18901 MAGNESIUMon 01-01-2024 Magnesium [Mass/Vol] 2.0 mg/dL Normal 1.8-2.6 [facility] Comment on above: Performed By: #### EDIL Pires BCA, 71596-4, 55622-6, 60869-5 #### [facility] ([id number]) [address] [place] [address] 79346 URINE CULTUREon 01-01-2024 Bacteria identified Cx Nom (U) CULTURE RESULTS <10,000 ORGANISMS/ML NORMAL URO GENITAL JANES Normal [facility] Comment on above: Performed By: #### EDIL Pires BCA, 47997-7, 81460-9, 84071-0 #### [facility] ([id number]) [address] [place] [address] 59607 CBC AND AUTO DIFFon 12-31-19 24 TAMIKA 1+ Abnormal NONE [facility] Comment on above: Performed By: #### Lexis MYERS CMP, 88973-6 #### [facility] ([id number]) [address] [place] [address] 78840 Erythrocyte distribution width (RBC) [Ratio] 15.8 % High 11.5-15.0 [facility] Comment on above: Performed By: #### Lexis MYERS CMP, 40938-6 #### [facility] ([id number]) [address] [place] [address] 61263 Hematocrit (Bld) [Volume fraction] 36.6 % Low 39-49 [facility] Comment on above: Performed By: #### Lexis MYERS CMP, 93603-2 #### [facility] ([id number]) [address] [place], [place] [address] Hemoglobin (Bld) [Mass/Vol] 12.6 g/dL Low 13.0-17.0 [facility] Comment on above: Performed By: #### Lexis MYERS CMP, 52703-0 #### [facility] ([id number]) [address] [place] [address] 85104 LYMPHOCYTE, ATYPICAL 2.0 % Normal [facility] Comment on above: Performed By: #### Lexis MYERS CMP, 91050-2 #### [facility] ([id number]) [address] [place] [address] 00628 Lymphocytes (Bld) [#/Vol] 0.6 10*3/uL Low 1.0-3.5 [facility] Comment on above: Performed By: #### C LUCIA [facility], 82978-0 #### [facility] ([id number]) [address] [place] [address] 94968 Lymphocytes/100 WBC (Bld) 2.0 % Normal [facility] Comment on above: Performed By: #### Lexis MYERS CMP, 26593-9 #### [facility] ([id number]) [address] [place] [address] 75237 MCH (RBC) [Entitic mass] 35.8 pg High 27-34 [facility] Comment on above: Performed By: #### Lexis MYERS [facility], 33351-0 #### [facility] ([id number]) [address] [place] [address] 33086 MCHC (RBC) [Mass/Vol] 34.5 g/dL Normal 32-36 [facility] Comment on above: Performed By: #### Lexis MYERS [facility], 48375-0 #### [facility] ([id number]) [address] [place] [address] 87560 MCV (RBC) [Entitic vol] 104 fL High 80-100 [facility] Comment on above: Performed By: #### Lexis MYERS CMP, 48826-7 #### [facility] ([id number]) [address] [place] [address] 44683 Monocytes (Bld) [#/Vol] 2.2 10*3/uL High 0-0.9 [facility] Comment on above: Performed By: #### Lexis MYERS CMP, 97139-6 #### [facility] ([id number]) [address] [place] [address] 25702 Monocytes/100 WBC (Bld) 17.0 % Normal [facility] Comment on above: Performed By: #### Lexis MYERS CMP, 79563-5 #### [facility] ([id number]) [address] [place] [address] 34438 Neutrophils (Bld) [#/Vol] 10.0 10*3/uL High 1.5-6.6 [facility] Comment on above: Performed By: #### Lexis MYERS CMP, 08833-4 #### [facility] ([id number]) [address] [place] [address] 28077 Platelet mean volume (Bld) [Entitic vol] 8.6 fL Normal 7-12 [facility] Comment on above: Performed By: #### Lexis MYERS CMP, 59412-1 #### [facility] ([id number]) [address] [place] [address] 77599 Platelets (Bld) [#/Vol] 193 10*3/uL Normal 150-450 [facility] Comment on above: Performed By: #### Lexis MYERS CMP, 09884-5 #### [facility] ([id number]) [address] [place] [address] 50827 RBC COUNT 3.52 X10E12/L Low 4.10-5.70 [facility] Comment on above: Performed By: #### Lexis MYERS CMP, 89605-8 #### [facility] ([id number]) [address] [place] [address] 50818 SEG NEUTROPHIL 79.0 % Normal [facility] Comment on above: Performed By: #### C BCA, CMP, 91300-6 #### [facility] ([id number]) [address] [place] [address] 02576 WBC (Bld) [#/Vol] 12.9 10*3/uL High 4.0-11.0 [facility] Comment on above: Performed By: #### C LUCIA, CMP, 04862-4 #### [facility] ([id number]) [address] [place] [address] 22233 COMPREHENSIVE METABOLIC PANE Robin 12-31-2023 Albumin [Mass/Vol] 3.4 g/dL Normal 3.2-5.3 [facility] Comment on above: Performed By: #### C LUCIA, CMP, 77511-0 #### [facility] ([id number]) [address] [place] [address] 79407 ALP [Catalytic activity/Vol] 91 U/L Normal 39-130 [facility] Comment on above: Performed By: #### C BCA, CMP, 80382-7 #### [facility] ([id number]) [address] [place] [address] 10856 ALT [Catalytic activity/Vol] 39 U/L Normal 0-40 [facility] Comment on above: Performed By: #### C LUCIA, CMP, 09355-1 #### [facility] ([id number]) [address] [place] [address] 78063 Anion gap [Moles/Vol] 8 mmol/L Normal 5-15 [facility] Comment on above: Performed By: #### C BCA, CMP, 17780-1 #### [facility] ([id number]) [address] [place] [address] 90044 AST [Catalytic activity/Vol] 84 U/L High 0-41 [facility] Comment on above: Performed By: #### C BCA, CMP, 85230-4 #### [facility] ([id number]) [address] [place] [address] 57091 Bilirubin [Mass/Vol] 0.5 mg/dL Normal 0.3-1.2 [facility] Comment on above: Performed By: #### C LUCIA CMP, 65908-8 #### [facility] ([id number]) [address] [place] [address] 10120 Calcium [Mass/Vol] 8.4 mg/dL Low 8.5-10.5 [facility] Comment on above: Performed By: #### C LUCIA, CMP, 73070-4 #### [facility] ([id number]) [address] [place] [address] 81683 Chloride [Moles/Vol] 99 mmol/L Normal 98-109 [facility] Comment on above: Performed By: #### C LUCIA, CMP, 53385-4 #### [facility] ([id number]) [address] [place] [address] 86604 CO2 [Moles/Vol] 26 mmol/L Normal 22-32 [facility] Comment on above: Performed By: #### C BCA, CMP, 28749-3 #### [facility] ([id number]) [address] [place] [address] 69965 Creatinine [Mass/Vol] 1.52 mg/dL High 0.70-1.20 [facility] Comment on above: Result Comment: METH OD TRACEABLE TO IDMS STANDARD Performed By: #### C BCA, CMP, 34532-9 #### [facility] ([id number]) [address] [place] [address] 66818 GFR/1.73 sq M.predicted among non-blacks MDRD (S/P/Bld) [Vol rate/Area] 46 mL/min/{1.73_m2} Low >59 [facility] Comment on above: Result Comment: Reported eGFR is based on the CKD-EPI 2020 equation that does not use a race coefficient. Performed By: #### C DAGO MYERS, 71770-4 #### [facility] ([id number]) [address] [place] [address] 51650 Glucose [Mass/Vol] 110 mg/dL High 65-99 [facility] Comment on above: Performed By: #### Lexis MYERS [facility], 00161-0 #### [facility] ([id number]) [address] [place] [address] 24139 Potassium [Moles/Vol] 4.0 mmol/L Normal 3.5-5.0 [facility] Comment on above: Performed By: #### Lexis MYERS CMP, 60882-5 #### [facility] ([id number]) [address] [place] [address] 85690 Protein [Mass/Vol] 6.9 g/dL Normal 6.0-8.0 [facility] Comment on above: Performed By: #### Lexis MYERS [facility], 08779-9 #### [facility] ([id number]) [address] [place] [address] 77444 Sodium [Moles/Vol] 133 mmol/L Low 134-146 [facility] Comment on above: Performed By: #### Lexis MYRES [facility], 61349-1 #### [facility] ([id number]) [address] [place] [address] 67135 Urea nitrogen [Mass/Vol] 25 mg/dL Normal 5-27 [facility] Comment on above: Performed By: #### Lexis MYERS CMP, 27050-7 #### [facility] ([id number]) [address] [place] [address] 17473 SARS/FLU A+B/RSV by NAAT/Mol ecularon 12-31-2023 SARS/FLU A+B/RSV by NAAT/Molecular FLU A PCR Negative (qualifier value) FLU B PCR Negative (qualifier value) RSV by PCR Negative (qualifier value) SARS CoV 2 Detected (qualifier value) NOTE The Xpert Xpress SARS-CoV-2/Flu/RSV Plus test is a rapid, multiplexed real-time RT-PCR test intended for the simultaneous qualitative detection and differentiation of SARS-CoV-2, influenza A, influenza B and respiratory syncytial virus (RSV) viral RNA from individuals suspected of respiratory viral infection consistent with COVID-19 by their healthcare provider. This test has not been validated in asymptomatic patients. The Xpert Xpress SARS-CoV-2 test is intended for use by qualified and trained operators who are performing tests using either Cytocentrics or Meuugame systems and is limited to laboratories that meet the CLIA requirements to perform high and moderate complexity tests. The Xpert Xpress SARS-CoV-2/Flu/RSV Plus is only for use under the Food and Drug Administration's Emergency Use Authorization. Results are for the simultaneous detection and differentiation of SARS-CoV-2, influenza A, influenza B and RSV nucleic acids in clinical specimens. SARS-CoV-2, influenza A, influenza B and RSV RNA identified by this test are generally detectable in upper respiratory samples during the acute phase of infection. Positive results are indicative of the presence of the identified virus, but do not rule out bacterial infection or co-infection with other pathogens not detected by this test. Clinical correlation with patient history and other diagnostic information is necessary to determine patient infection status. The agent detected may not be the definite cause of disease. Negative results do not preclude SARS-CoV-2, influenza A, influenza B and RSV infection and should not be used as the sole basis for treatment or other patient management decisions. Negative results must be combined with clinical observations, patient history and epidemiological information. An Invalid result may occur with specimen-associated inhibition unable to be resolved with specimen repeat. Fact Sheet for Healthcare Providers: https://www.fda.gov/m edia/361786/download Fact Sheet for Patients: https://www.fda.gov/m edia/151010/download Normal [facility] Comment on above: Performed By: #### C LUCIA, EDIL, 82973-9, 01197-7, 23072-6 #### [facility] ([id number]) [address] [place] [address] Troponin I.cardiac High sens itivity method [Mass/Vol]on 12-31-2023 1 HOUR TROP I, HIGH SENSITIVITY 9 ng/L Normal <21 [facility] Comment on above: Performed By: #### C BCA, BMP, 62237-1, 54216-6, 36277-0 #### [facility] ([id number]) [address] [place] [address] 44383 TROPONIN I, HIGH SENSITIVITY 10 ng/L Normal <21 [facility] Comment on above: Performed By: #### C BCA, BMP, 47781-7, 78407-4, 85041-3 #### [facility] ([id number]) [address] [place] [address] 89230 URINE CULTUREon 12-31-2023 Bacteria identified Cx Nom (U) CULTURE RESULTS <10,000 ORGANISMS/ML NORMAL URO GENITAL JANES Normal [facility] Comment on above: Performed By: #### C BCA, BMP, 74463-8, 69186-3, 50197-4 #### [facility] ([id number]) [address] [place] [address] 52692 URN MACROSCOPIC NURon 2023 BILIRUBIN BOOKER Negative Normal NEG [facility] Comment on above: Performed By: #### C BCA, BMP, 23420-4, 52055-0, 08150-4 #### [facility] ([id number]) [address] [place] [address] 01887 BLOOD/HGB BOOKER Negative Normal NEG [facility] Comment on above: Performed By: #### C BCA, BMP, 90845-5, 11046-6, 36900-0 #### [facility] ([id number]) [address] [place] [address] 73753 GLUCOSE BOOKER Negative Normal NEG [facility] Comment on above: Performed By: #### C BCA, BMP, 96164-8, 75403-9, 11277-3 #### [facility] ([id number]) [address] [place] [address] 86068 KETONES BOOKER Negative Normal NEG [facility] Comment on above: Performed By: #### C BCA, BMP, 97421-9, 33993-4, 33697-6 #### [facility] ([id number]) [address] [place] [address] 81781 LEUKOCYTE ESTERASE BOOKER Negative Normal NEG [facility] Comment on above: Performed By: #### C BCA, BMP, 97949-3, 95510-4, 86543-5 #### [facility] ([id number]) [address] [place] [address] 45295 NITRITE BOOKER Negative Normal NEG [facility] Comment on above: Performed By: #### C BCA, BMP, 45751-9, 39442-0, 27615-2 #### [facility] ([id number]) [address] [place] [address] 78959 PH BOOKER 5.5 Normal 5.0-8.5 [facility] Comment on above: Performed By: #### C BCA, BMP, 70584-0, 66921-4, 56466-9 #### [facility] ([id number]) [address] [place] [address] 90665 PROTEIN BOOKER Negative Normal NEG [facility] Comment on above: Performed By: #### C BCA, BMP, 97942-8, 09226-6, 81799-5 #### [facility] ([id number]) [address] [place] [address] 04205 SPECIFIC GRAVITY BOOKER 1.025 Normal 1.003-1.035 [facility] Comment on above: Performed By: #### C BCA, BMP, 81644-2, 69080-0, 18785-0 #### [facility] ([id number]) [address] [place] [address] 67976 UROBILINOGEN BOOKER 0.2 eu/dL Normal <1.1 [facility] Comment on above: Performed By: #### C BCA, BMP, 86650-3, 86746-2, 25557-9 #### [facility] ([id number]) [address] [facility] [place] [address] XR CHEST 2 VWSon 12-31-2023 SARS-CoV-2 (COVID-19) RNA SANKET+probe Ql (Unsp spec) XR CHEST 2 VWS CLINICAL INFORMATION: . cough fever exposure to covid. TECHNIQUE/PROCEDURE: Two view chest. COMPARISON: 08/20/2023 FINDINGS: No tracheal deviation. Enlarged cardiac silhouette. Right-sided port in position. No pneumothorax or free air. No focal consolidation or pleural effusion. Low inspiratory effort. IMPRESSION: * No radiographic evidence of acute cardiopulmonary disease. Finalized by Ben Ceron MD on 12/31/2023 3:04 PM Normal [facility] CNPNon 12-30-2023 CNPN Normal [facility] Albumin [Mass/volume] in Ser um or Plasmaon 12-24-2023 Albumin [Mass/Vol] 3.43 g/dL 3.43-5.41 [facility] Anisocytosis LM Ql (Bld)on 0 12-24-2023 Anisocytosis Ql (Bld) Present [facility] Basophils Auto (Bld) [#/Vol] on 12-24-2023 Basophils (Bld) [#/Vol] 0.15 10*3/uL High <0.11 [facility] Basophils/100 WBC Auto (Bld) on 12-24-2023 Basophils/100 WBC (Bld) 0.9 % F [facility] Blood manual differential co mment interpretation narrativeon 12-24-2023 Manual differential comment Aashish (Bld) [Interp] Manual [facility] CBC W Auto Differential pane l (Bld)on 12-24-2023 Anisocytosis Ql (Bld) Present Normal [facility] Comment on above: Order Comment: Speci men Type: BLOOD SPECIMENOrdering Facility: [facility] Address: [address] [place] [address] Performed By: #### 5 7021-8 ####[facility] LABCLIA [id number] [address] LABCLIA [id number] [place] [address] [place] Basophils (Bld) [#/Vol] 0.15 10*3/uL High <0.11 [facility] Comment on above: Order Comment: Speci men Type: BLOOD SPECIMENOrdering Facility: [facility] Address: [address] [place] [address] Performed By: #### 5 7021-8 ####[facility] LABCLIA [id number] [address] LABCLIA [id number] [place] [address] [place] Basophils/100 WBC (Bld) 0.9 % Normal [facility] Comment on above: Order Comment: Speci men Type: BLOOD SPECIMENOrdering Facility: [facility] Address: [address] [place] [address] Performed By: #### 5 7021-8 ####[facility] LABCLIA [id number] [address] LABCLIA [id number] [place] [address] [place] Dacrocytes LM Ql (Bld) Few Normal Cl [facility] Comment on above: Order Comment: Speci men Type: BLOOD SPECIMENOrdering Facility: [facility] Address: [address] [place] [address] Performed By: #### 5 7021-8 ####[facility] LABCLIA [id number] [address] LABCLIA [id number] [place] [address] [place] Differential cell count method Nom (Bld) Manual Normal [facility] Comment on above: Order Comment: Speci men Type: BLOOD SPECIMENOrdering Facility: [facility] Address: [address] [place] [address] Performed By: #### 5 7021-8 ####[facility] LABCLIA [id number] [address] LABCLIA [id number] [place] [address] [place] Eosinophils (Bld) [#/Vol] 0.00 10*3/uL Normal <0.46 [facility] Comment on above: Order Comment: Speci men Type: BLOOD SPECIMENOrdering Facility: [facility] Address: [address] [place] [address] Performed By: #### 5 7021-8 ####[facility] LABCLIA [id number] [address] LABCLIA [id number] [place] [address] [place] Eosinophils/100 WBC (Bld) 0.0 % Normal [facility] Comment on above: Order Comment: Speci men Type: BLOOD SPECIMENOrdering Facility: [facility] Address: [address] [place] [address] Performed By: #### 5 7021-8 ####[facility] LABCLIA [id number] [address] LABCLIA [id number] [place] [address] [place] Erythrocyte distribution width (RBC) [Ratio] 15.0 % Normal 11.5-15.0 [facility] Comment on above: Order Comment: Speci men Type: BLOOD SPECIMENOrdering Facility: [facility] Address: [address] [place] [address] Performed By: #### 5 7021-8 ####[facility] LABCLIA [id number] [place] [id number] LABCLIA [id number] [place] [address] [place] Hematocrit (Bld) [Volume fraction] 38.2 % Low 39.0-51.0 [facility] Comment on above: Order Comment: Speci men Type: BLOOD SPECIMENOrdering Facility: [facility] Address: [address] [place] [address] Performed By: #### 5 7021-8 ####[facility] LABCLIA [id number] [address] LABCLIA [id number] [place] [address] [place] Hemoglobin (Bld) [Mass/Vol] 13.2 g/dL Normal 13.0-17.0 [facility] Comment on above: Order Comment: Speci men Type: BLOOD SPECIMENOrdering Facility: [facility] Address: [address] [place] [address] Performed By: #### 5 7021-8 ####[facility] LABCLIA [id number] [address] LABCLIA [id number] [place] [address] [place] Lymphocytes (Bld) [#/Vol] 2.03 10*3/uL Normal 1.00-4.00 [facility] Comment on above: Order Comment: Speci men Type: BLOOD SPECIMENOrdering Facility: [facility] Address: [address] [place] [address] Performed By: #### 5 7021-8 ####[facility] LABCLIA [id number] [address] LABCLIA [id number] [place] [address] [place] Lymphocytes/100 WBC (Bld) 12.2 % Normal [facility] Comment on above: Order Comment: Speci men Type: BLOOD SPECIMENOrdering Facility: [facility] Address: [address] [place] [address] Performed By: #### 5 7021-8 ####[facility] LABCLIA [id number] [address] LABCLIA [id number] [place] [address] [place] MCH (RBC) [Entitic mass] 35.6 pg High 26.0-34.0 [facility] Comment on above: Order Comment: Speci men Type: BLOOD SPECIMENOrdering Facility: [facility] Address: [address] [place] [address] Performed By: #### 5 7021-8 ####[facility] LABCLIA [id number] [address] LABCLIA [id number] [place] [address] [place] MCHC (RBC) [Mass/Vol] 34.6 g/dL Normal 30.5-36.0 [facility] Comment on above: Order Comment: Speci men Type: BLOOD SPECIMENOrdering Facility: [facility] Address: [address] [place] [address] Performed By: #### 5 7021-8 ####[facility] LABCLIA [id number] [address] LABCLIA [id number] [place] [address] [place] MCV (RBC) [Entitic vol] 103.0 fL High 80.0-100.0 [facility] Comment on above: Order Comment: Speci men Type: BLOOD SPECIMENOrdering Facility: [facility] Address: [address] [place] [address] Performed By: #### 5 7021-8 ####[facility] LABCLIA [id number] [place] [address] LABCLIA [id number] [place] [address] [place] Monocytes (Bld) [#/Vol] 0.86 10*3/uL Normal <0.87 [facility] Comment on above: Order Comment: Speci men Type: BLOOD SPECIMENOrdering Facility: [facility] Address: [address] [place] [address] Performed By: #### 5 7021-8 ####[facility] LABCLIA [id number] [address] LABCLIA [id number] [place] [address] [place] Monocytes/100 WBC (Bld) 5.2 % Normal [facility] Comment on above: Order Comment: Speci men Type: BLOOD SPECIMENOrdering Facility: [facility] Address: [address] [place] [address] Performed By: #### 5 7021-8 ####[facility] LABCLIA [id number] [address] LABCLIA [id number] [place] [address] [place] Neutrophils (Bld) [#/Vol] 13.59 10*3/uL High 1.45-7.50 [facility] Comment on above: Order Comment: Speci men Type: BLOOD SPECIMENOrdering Facility: [facility] Address: [address] [place] [address] Performed By: #### 5 7021-8 ####[facility] LABCLIA [id number] [address] LABCLIA [id number] [place] [address] [place] Neutrophils/100 WBC (Bld) 81.7 % Normal [facility] Comment on above: Order Comment: Speci men Type: BLOOD SPECIMENOrdering Facility: [facility] Address: [address] [place] [address] Performed By: #### 5 7021-8 ####[facility] LABCLIA [id number] [address] LABCLIA [id number] [place] [address] [place] Nucleated RBC (Bld) [#/Vol] 10*3/uL Normal <0.01 [facility] Comment on above: Order Comment: Speci men Type: BLOOD SPECIMENOrdering Facility: [facility] Address: [address] [place] [address] Performed By: #### 5 7021-8 ####[facility] LABCLIA [id number] [address] LABCLIA [id number] [place] [address] [place] Nucleated RBC/100 WBC (Bld) [Ratio] 0.0 /100 WBC Normal [facility] Comment on above: Order Comment: Speci men Type: BLOOD SPECIMENOrdering Facility: [facility] Address: [address] [place] [address] Performed By: #### 5 7021-8 ####[facility] LABCLIA [id number] [address] LABCLIA [id number] [place] [address] [place] Ovalocytes LM Ql (Bld) Few Normal [facility] Comment on above: Order Comment: Speci men Type: BLOOD SPECIMENOrdering Facility: [facility] Address: [address] [place] [address] Performed By: #### 5 7021-8 ####[facility] LABCLIA [id number] [address] LABCLIA [id number] [place] [address] [place] Platelet mean volume (Bld) [Entitic vol] 10.2 fL Normal 9.0-12.7 [facility] Comment on above: Order Comment: Speci men Type: BLOOD SPECIMENOrdering Facility: [facility] Address: [address] [place] [address] Performed By: #### 5 7021-8 ####[facility] LABCLIA [id number] [address] LABCLIA [id number] [place] [address] [place] Platelets (Bld) [#/Vol] 241 10*3/uL Normal 150-400 [facility] Comment on above: Order Comment: Speci men Type: BLOOD SPECIMENOrdering Facility: [facility] Address: [address] [place] [address] Performed By: #### 5 7021-8 ####[facility] LABCLIA [id number] [address] LABCLIA [id number] [place] [address] [place] Platelets Estimate (Bld) [#/Vol] Adequate Normal [facility] Comment on above: Order Comment: Speci men Type: BLOOD SPECIMENOrdering Facility: [facility] Address: [address] [place] [address] Performed By: #### 5 7021-8 ####[facility] LABCLIA [id number] [address] LABCLIA [id number] [place] [address] [place] Polychromasia LM Ql (Bld) Slight Normal [facility] Comment on above: Order Comment: Speci men Type: BLOOD SPECIMENOrdering Facility: [facility] Address: [address] [place] [address] Performed By: #### 5 7021-8 ####[facility] LABCLIA [id number] [place] [address] LABCLIA [id number] [address] [address] [place] RBC (Bld) [#/Vol] 3.71 10*6/uL Low 4.20-6.00 [facility] Comment on above: Order Comment: Speci men Type: BLOOD SPECIMENOrdering Facility: [facility] Address: [address] [place] [address] Performed By: #### 5 7021-8 ####[facility] LABCLIA [id number] [address] LABCLIA [id number] [place] [address] [place] RED CELL MORPH Reviewed: see result s of individual morphologies Normal [facility] Comment on above: Order Comment: Speci men Type: BLOOD SPECIMENOrdering Facility: [facility] Address: [address] [place] [address] Performed By: #### 5 7021-8 ####[facility] LABCLIA [id number] [place] [address] LABCLIA [id number] [place] [address] [place] WBC (Bld) [#/Vol] 16.63 10*3/uL High 3.70-11.00 [facility] Comment on above: Order Comment: Speci men Type: BLOOD SPECIMENOrdering Facility: [facility] Address: [address] [place] [address] Performed By: #### 5 7021-8 ####[facility] LABCLIA [id number] [place] [address] LABCLIA [id number] [place] [address] [place] CNOVSPon 12-24-2023 CNOVSP Normal [facility] Comprehensive metabolic 2000 panelOrdered By: Kaur Bennett on 12-24-2023 Albumin [Mass/Vol] 4.0 g/dL 3.9 - 4.9 g/dL [facility] ALP [Catalytic activity/Vol] 96 U/L 38 - 113 U/L [facility] ALT [Catalytic activity/Vol] 14 U/L 10 - 54 U/L [facility] Anion gap [Moles/Vol] 9 mmol/L 8 - 15 mmol/L [facility] AST [Catalytic activity/Vol] 18 U/L 14 - 40 U/L [facility] Bilirubin [Mass/Vol] 0.4 mg/dL 0.2 - 1 .3 mg/dL [facility] Calcium [Mass/Vol] 10.0 mg/dL 8.5 - 10. 2 mg/dL [facility] Chloride [Moles/Vol] 101 mmol/L 98 - 10 7 mmol/L [facility] CO2 [Moles/Vol] 29 mmol/L 22 - 30 mmol/L [facility] Creatinine [Mass/Vol] 1.49 mg/dL High 0.73 - 1.22 mg/dL [facility] GFR/1.73 sq M.predicted among non-blacks MDRD (S/P/Bld) [Vol rate/Area] 47 mL/min/{1.73_m2} Low - PINF [facility] Comment on above: Estimated Glomerular Filtration Rate (eGFR) is calculated using the 2020 CKD-EPI creatinine equation. This equation utilizes serum creatinine, sex, and age as parameters. The creatinine assay has traceable calibration to isotope dilution-mass spectrometry. Refer to KDIGO guidelines for clinical interpretation. In patients with unstable renal function, e.g. those with acute kidney injury, the eGFR may not accurately reflect actual GFR. Glucose [Mass/Vol] 101 mg/dL High 74 - 99 mg/dL [facility] Comment on above: The [place] Diab[employer] s Association (ADA) provides guidance for cutoff values for fasting glucose and random glucose. The ADA defines fasting as no caloric intake for at least 8 hours. Fasting plasma glucose results between 100 to 125 mg/dL indicate increased risk for diabetes (prediabetes). Fasting plasma glucose results greater than or equal to 126 mg/dL meet the criteria for diagnosis of diabetes. In the absence of unequivocal hyperglycemia, results should be confirmed by repeat testing. In a patient with classic symptoms of hyperglycemia or hyperglycemic crisis, random plasma glucose results greater than or equal to 200 mg/dL meet the criteria for diagnosis of diabetes. Reference: Standards of Medical Care in Diabetes 2016, [place] [employer]. Diabetes Care. 2016.39(Suppl 1). Interpretation and review of laboratory results Abnormal [facility] Potassium [Moles/Vol] 4.1 mmol/L 3.7 - 5.1 mmol/L [facility] Protein [Mass/Vol] 7.2 g/dL 6.3 - 8.0 g/dL [facility] Sodium [Moles/Vol] 139 mmol/L 136 - 144 mmol/L [facility] Urea nitrogen [Mass/Vol] 30 mg/dL High 9 - 24 mg/dL [facility] Comprehensive metabolic 2000 panelon 12-24-2023 Albumin [Mass/Vol] 4.0 g/dL Normal 3.9-4.9 [facility] Comment on above: Order Comment: Speci men Type: BLOOD SPECIMENOrdering Facility: [facility] Address: [address] [place] [address] Performed By: #### 2 4323-8 ####[facility] LABCLIA [id number] [place] [address] ALP [Catalytic activity/Vol] 96 U/L Normal 38-113 [facility] Comment on above: Order Comment: Speci men Type: BLOOD SPECIMENOrdering Facility: [facility] Address: [address] [place] [address] Performed By: #### 2 4323-8 ####[facility] LABCLIA [id number] [place] [address] ALT [Catalytic activity/Vol] 14 U/L Normal 10-54 [facility] Comment on above: Order Comment: Speci men Type: BLOOD SPECIMENOrdering Facility: [facility] Address: [address] [place] [address] Performed By: #### 2 4323-8 ####[facility] LABCLIA [id number] [place] [address] Anion gap [Moles/Vol] 9 mmol/L Normal 8-15 [facility] Comment on above: Order Comment: Speci men Type: BLOOD SPECIMENOrdering Facility: [facility] Address: [address] [place], [place] [address] Performed By: #### 2 4323-8 ####[facility] LABCLIA [id number] [place] [address] AST [Catalytic activity/Vol] 18 U/L Normal 14-40 [facility] Comment on above: Order Comment: Speci men Type: BLOOD SPECIMENOrdering Facility: [facility] Address: [address] [place] [address] Performed By: #### 2 4323-8 ####[facility] LABCLIA [id number] [place] [address] Bilirubin [Mass/Vol] 0.4 mg/dL Normal 0.2-1.3 [facility] Comment on above: Order Comment: Speci men Type: BLOOD SPECIMENOrdering Facility: [facility] Address: [address] [place] [address] Performed By: #### 2 4323-8 ####[facility] LABCLIA [id number] [place] [address] Calcium [Mass/Vol] 10.0 mg/dL Normal 8.5-10.2 [facility] Comment on above: Order Comment: Speci men Type: BLOOD SPECIMENOrdering Facility: [facility] Address: [address] [place] [address] Performed By: #### 2 4323-8 ####[facility] LABCLIA [id number] [place] [address] Chloride [Moles/Vol] 101 mmol/L Normal 98-107 [facility] Comment on above: Order Comment: Speci men Type: BLOOD SPECIMENOrdering Facility: [facility] Address: [address] [place] [address] Performed By: #### 2 4323-8 ####[facility] LABCLIA [id number] [place] [address] CO2 [Moles/Vol] 29 mmol/L Normal 22-30 [facility] Comment on above: Order Comment: Speci men Type: BLOOD SPECIMENOrdering Facility: [facility] Address: [address] [place] [address] Performed By: #### 2 4323-8 ####[facility] LABCLIA [id number] [place] [address] Creatinine [Mass/Vol] 1.49 mg/dL High 0.73-1.22 [facility] Comment on above: Order Comment: Speci men Type: BLOOD SPECIMENOrdering Facility: [facility] Address: [address] [place] [address] Performed By: #### 2 4323-8 ####[facility] LABIA [id number] [place] [address] Creatinine and Glomerular filtration rate.predicted panel (S/P/Bld) 47 mL/min/1.73m??? Low >=60 [facility] Comment on above: Order Comment: Speci men Type: BLOOD SPECIMENOrdering Facility: [facility] Address: [address] [place] [address] Result Comment: Janae mated Glomerular Filtration Rate (eGFR) is calculated using the 2020 CKD-EPI creatinine equation. This equation utilizes serum creatinine, sex, and age as parameters. The creatinine assay has traceable calibration to isotope dilution-mass spectrometry. Refer to KDIGO guidelines for clinical interpretation. In patients with unstable renal function, e.g. those with acute kidney injury, the eGFR may not accurately reflect actual GFR. Performed By: #### 2 4323-8 ####[facility] LABCLIA [id number] [place] [address] Glucose [Mass/Vol] 101 mg/dL High 74-99 [facility] Comment on above: Order Comment: Speci men Type: BLOOD SPECIMENOrdering Facility: [facility] Address: [address] [place] [address] Result Comment: The [place] Diabetes Association (ADA) provides guidance for cutoff values for fasting glucose and random glucose. The ADA defines fasting as no caloric intake for at least 8 hours. Fasting plasma glucose results between 100 to 125 mg/dL indicate increased risk for diabetes (prediabetes).Fasting plasma glucose results greater than or equal to 126 mg/dL meet the criteria for diagnosis of diabetes. In the absence of unequivocal hyperglycemia, results should be confirmed by repeat testing. In a patient with classic symptoms of hyperglycemia or hyperglycemic crisis, random plasma glucose results greater than or equal to 200 mg/dL meet the criteria for diagnosis of diabetes.Reference: Standards of Medical Care in Diabetes 2016, [place] [employer]. Diabetes Care. 2016.39(Suppl 1). Performed By: #### 2 4323-8 ####[facility] LABCLIA [id number] [place] [address] Potassium [Moles/Vol] 4.1 mmol/L Normal 3.7-5.1 [facility] Comment on above: Order Comment: Speci men Type: BLOOD SPECIMENOrdering Facility: [facility] Address: [address] [place] [id number] Performed By: #### 2 4323-8 ####[facility] LABCLIA [id number] [place] [address] Protein [Mass/Vol] 7.2 g/dL Normal 6.3-8.0 [facility] Comment on above: Order Comment: Speci men Type: BLOOD SPECIMENOrdering Facility: [facility] Address: [address] [place] [address] Performed By: #### 2 4323-8 ####[facility] LABCLIA [id number] [place] [address] Sodium [Moles/Vol] 139 mmol/L Normal 136-144 [facility] Comment on above: Order Comment: Speci men Type: BLOOD SPECIMENOrdering Facility: [facility] Address: [address] [place] [address] Performed By: #### 2 4323-8 ####[facility] LABCLIA [id number] [place] [address] Urea nitrogen [Mass/Vol] 30 mg/dL High 9-24 [facility] Comment on above: Order Comment: Speci men Type: BLOOD SPECIMENOrdering Facility: [facility] Address: [address] [place] [address] Performed By: #### 2 4323-8 ####[facility] LABCLIA [id number] [place] [address] Eosinophils/100 WBC Auto (Bl d)on 12-24-2023 Eosinophils/100 WBC (Bld) 0.0 % [facility] Erythrocyte distribution wid th Auto (RBC) [Ratio]on 12-24-2023 Erythrocyte distribution width (RBC) [Ratio] 15.0 % 11.5-15.0 [facility] Hematocrit Auto (Bld) [Volum e fraction]on 12-24-2023 Hematocrit (Bld) [Volume fraction] 38.2 % Low 39.0-51.0 [facility] Hemoglobin [Mass/volume] in Bloodon 12-24-2023 Hemoglobin (Bld) [Mass/Vol] 13.2 g/dL 13.0-17.0 [facility] IMMUNOFIXATION SCREEN, SERUM on 12-24-2023 INTERPRETATION (MPA) Normal [facility] Comment on above: Order Comment: Speci men Type: BLOOD SPECIMENOrdering Facility: [facility] Address: [address] [place] [address] Performed By: #### I FESC ####[facility] LABCLIA [id number] [facility] [id number] [place] [address] [place] MPA RESULT A poorly defined region of restricted mobility is present that may represent an M protein. Abnormal No M protein is identified. [facility] Comment on above: Order Comment: Speci men Type: BLOOD SPECIMENOrdering Facility: [facility] Address: [address] [place] [address] Performed By: #### I FESC ####[facility] LABCLIA [id number] [place] [address] [place] STAFF REVIEW (MPA) Reviewed by Lexus Zelaya M.D. Normal [facility] Comment on above: Order Comment: Speci men Type: BLOOD SPECIMENOrdering Facility: [facility] Address: [address] [place] [address] Performed By: #### I FES ####[facility] LABCLIA [id number] [place] [address] [place] IMMUNOGLOBULINS,IGG,IGA,IGMo n 12-24-2023 IgA [Mass/Vol] 182 mg/dL 70 - 400 mg/dL [facility] IgG [Mass/Vol] 936 mg/dL 700 - 1600 mg/dL [facility] IgM [Mass/Vol] 18 mg/dL Low 40 - 230 mg/dL [facility] Interpretation and review of laboratory results Abnormal [facility] IgA [Mass/Vol] 182 mg/dL Normal 70-400 [facility] Comment on above: Order Comment: Speci men Type: BLOOD SPECIMENOrdering Facility: [facility] Address: [address] [place] [address] Performed By: #### S ERIMM ####[facility] LABCLIA [id number] [place] [address] [place] IgG [Mass/Vol] 936 mg/dL Normal 700-1600 [facility] Comment on above: Order Comment: Speci men Type: BLOOD SPECIMENOrdering Facility: [facility] Address: [address] [place] [address] Performed By: #### S ERIMM ####[facility] LABCLIA [id number] [place] [address] [place] IgM [Mass/Vol] 18 mg/dL Low 40-230 [facility] Comment on above: Order Comment: Speci men Type: BLOOD SPECIMENOrdering Facility: [facility] Address: [address] [place] [address] Performed By: #### S ERIMM ####[facility] LABCLIA [id number] [facility] [id number] [id number] [place] IgA [Mass/volume] in Serum o r Plasmaon 12-24-2023 IgA [Mass/Vol] 182 mg/dL 70-400 [facility] IgG [Mass/volume] in Serum o r Plasmaon 12-24-2023 IgG [Mass/Vol] 936 mg/dL 700-1600 [facility] IgM [Mass/volume] in Serum o r Plasmaon 12-24-2023 IgM [Mass/Vol] 18 mg/dL Low 40-230 [facility] Immunoglobulin light chains. kappa.free [Mass/volume] in Serumon 12-24-2023 Immunoglobulin light chains.kappa.free (S) [Mass/Vol] 15.5 mg/L 3.3-19.4 [facility] Comment on above: Rarely, increased se rum free light chains levels may not be detected or accurately quantified due to prozone phenomenon or in high viscosity samples using this immunoturbidimetric assay. Correlation with other laboratory results and clinical findings is recommended. The [place] Free Light Chain was performed using the Binding Site Optilite immunoturbidimetric method. Result obtained with different assay methods or kits cannot be used interchangeably. Immunoglobulin light chains. kappa.free/Immunoglobulin light chains.lambda.free [Fransisca 12-24-2023 Immunoglobulin light chains.kappa.free/Immuno globulin light chains.lambda.free (S) [Mass ratio] 1.50 0.26-1.65 [facility] Immunoglobulin light chains. lambda.free [Mass/volume] in Serum or Plasmaon 12-24-2023 Immunoglobulin light chains.lambda.free [Mass/Vol] 10.3 mg/L 5.7-26.3 [facility] Comment on above: Rarely, increased se rum free light chains levels may not be detected or accurately quantified due to prozone phenomenon or in high viscosity samples using this immunoturbidimetric assay. Correlation with other laboratory results and clinical findings is recommended. The Lambda Free Light Chain was performed using the Binding Site Optilite immunoturbidimetric method. Result obtained with different assay methods or kits cannot be used interchangeably. KAPPA/HERNANDEZ,FREE,SERon 2023 Immunoglobulin light chains.kappa.free (S) [Mass/Vol] 15.5 mg/L Normal 3.3-19.4 [facility] Comment on above: Order Comment: Speci men Type: BLOOD SPECIMENOrdering Facility: [facility] Address: [address] [place] [address] Result Comment: Rare ly, increased serum free light chains levels may not be detected or accurately quantified due to prozone phenomenon or in high viscosity samples using this immunoturbidimetric assay. Correlation with other laboratory results and clinical findings is recommended.The [place] Free Light Chain was performed using the Binding Site Optilite immunoturbidimetric method. Result obtained with different assay methods or kits cannot be used interchangeably. Performed By: #### K LFRS ####[facility] LABCLIA [id number] [place] [address] [place] Immunoglobulin light chains.kappa/Immunoglobu natanael light chains.lambda (S) [Mass ratio] 1.50 Normal 0.26-1.65 [facility] Comment on above: Order Comment: [facility] Type: BLOOD SPECIMENOrdering Facility: [facility] Address: [address] [place] [address] Performed By: #### K LFRS ####[facility] LABCLIA [id number] [place] [address] [place] Immunoglobulin light chains.lambda.free [Mass/Vol] 10.3 mg/L Normal 5.7-26.3 [facility] Comment on above: Order Comment: Speci men Type: BLOOD SPECIMENOrdering Facility: [facility] Address: [address] [place] [address] Result Comment: Rare ly, increased serum free light chains levels may not be detected or accurately quantified due to prozone phenomenon or in high viscosity samples using this immunoturbidimetric assay. Correlation with other laboratory results and clinical findings is recommended.The Lambda Free Light Chain was performed using the Binding Site Optilite immunoturbidimetric method. Result obtained with different assay methods or kits cannot be used interchangeably. Performed By: #### K LFRS ####[facility] LABCLIA [id number] [place] [address] [place] Laboratory - Chemistry and C hemistry - challengeon 12-24-2023 Albumin [Mass/Vol] 4.0 g/dL 3.9-4.9 [facility] ALP [Catalytic activity/Vol] 96 U/L 38-113 [facility] ALT [Catalytic activity/Vol] 14 U/L 10-54 [facility] AST [Catalytic activity/Vol] 18 U/L 14-40 [facility] Bilirubin [Mass/Vol] 0.4 mg/dL 0.2-1.3 [facility] Calcium [Mass/Vol] 10.0 mg/dL 8.5-10.2 [facility] Chloride [Moles/Vol] 101 mmol/L 98-107 [facility] CO2 [Moles/Vol] 29 mmol/L 22-30 [facility] Creatinine [Mass/Vol] 1.49 mg/dL High 0.73-1.22 [facility] Glucose [Mass/Vol] 101 mg/dL High 74-99 [facility] Comment on above: The [place] Diab[employer] Association (ADA) provides guidance for cutoff values for fasting glucose and random glucose. The ADA defines fasting as no caloric intake for at least 8 hours. Fasting plasma glucose results between 100 to 125 mg/dL indicate increased risk for diabetes (prediabetes).Fasting plasma glucose results greater than or equal to 126 mg/dL meet the criteria for diagnosis of diabetes. In the absence of unequivocal hyperglycemia, results should be confirmed by repeat testing. In a patient with classic symptoms of hyperglycemia or hyperglycemic crisis, random plasma glucose results greater than or equal to 200 mg/dL meet the criteria for diagnosis of diabetes.Reference: Standards of Medical Care in Diabetes 2016, [place] [employer]. Diabetes Care. 2016.39(Suppl 1). Potassium [Moles/Vol] 4.1 mmol/L 3.7-5.1 [facility] Protein [Mass/Vol] 0.00 g/dL <=0.00 [facility] Sodium [Moles/Vol] 139 mmol/L 136-144 [facility] Urea nitrogen [Mass/Vol] 30 mg/dL High 9-24 [facility] Laboratory - Hematology and Cell countson 12-24-2023 Eosinophils (Bld) [#/Vol] 0.00 10*3/uL <0.46 [facility] Leukocytes [#/volume] correc tony for nucleated erythrocytes in Blood by Automated counon 12-24-2023 WBC corrected for nucl RBC Auto (Bld) [#/Vol] 16.63 k/uL High 3.70-11.00 [facility] Lymphocytes Auto (Bld) [#/Vo l]on 12-24-2023 Lymphocytes (Bld) [#/Vol] 2.03 10*3/uL 1.00-4.00 [facility] Lymphocytes/100 WBC Auto (Bl d)on 12-24-2023 Lymphocytes/100 WBC (Bld) 12.2 % [facility] MCH Auto (RBC) [Entitic mass ]on 12-24-2023 MCH (RBC) [Entitic mass] 35.6 pg High 26.0-34.0 [facility] MCHC Auto (RBC) [Mass/Vol]on 12-24-2023 MCHC (RBC) [Mass/Vol] 34.6 g/dL 30.5-36.0 [facility] MCV Auto (RBC) [Entitic vol] on 12-24-2023 MCV (RBC) [Entitic vol] 103.0 fL High 80.0-100.0 [facility] Monocytes Auto (Bld) [#/Vol] on 12-24-2023 Monocytes (Bld) [#/Vol] 0.86 10*3/uL <0.87 [facility] Monocytes/100 WBC Auto (Bld) on 12-24-2023 Monocytes/100 WBC (Bld) 5.2 % [facility] Neutrophils Auto (Bld) [#/Vo l]on 12-24-2023 Neutrophils (Bld) [#/Vol] 13.59 10*3/uL High 1.45-7.50 [facility] Neutrophils/100 WBC Auto (Bl d)on 12-24-2023 Neutrophils/100 WBC (Bld) 81.7 % [facility] No Panel Informationon 12-23 Estimated GFR (CKD-EPI) 47 mL/min/1.73m??? Low >=60 [facility] Comment on above: Estimated Glomerular Filtration Rate (eGFR) is calculated using the 2020 CKD-EPI creatinine equation. This equation utilizes serum creatinine, sex, and age as parameters. The creatinine assay has traceable calibration to isotope dilution-mass spectrometry. Refer to KDIGO guidelines for clinical interpretation. In patients with unstable renal function, e.g. those with acute kidney injury, the eGFR may not accurately reflect actual GFR. Immunofixation Interpretation [facility] Leuk/Lymph Sign Pathologist (Misc) Reviewed by Lexus Zelaya M.D. [facility] Miscellaneous Test 6 See comment [facility] Comment on above: Not Applicable. Miscellaneous Test Comment Reviewed by Lexus Zelaya M.D. [facility] Normal RBC Morphology Reviewed: see resu lts of individual morphologies [facility] Protein Electrophoresis Note No definitive M protein is identified on protein electrophoresis. No definitive M protein is identified on protein electrophor esis. [facility] Serum Immunofixation Abnormal No M protein is identified. [facility] Nucleated RBC Auto (Bld) [#/ Vol]on 12-24-2023 Nucleated RBC (Bld) [#/Vol] 10*3/uL <0.01 [facility] Nucleated erythrocytes [Pres ence] in Blood by Automated counton 12-24-2023 Nucleated RBC Auto Ql (Bld) 0.0 /100{WBC} [facility] Ovalocyte detectionon 2023 Ovalocytes LM Ql (Bld) Few Fi [facility] PROTEIN ELECTROPHORESIS SERU M (P)on 12-24-2023 Albumin [Mass/Vol] 3.43 g/dL Normal 3.43-5.41 [facility] Comment on above: Order Comment: Speci men Type: BLOOD SPECIMENOrdering Facility: [facility] Address: [address] [place] [address] Performed By: #### L [id number] ####[facility] LABCLIA [id number] [facility] [place] [place] [address] [place] Alpha 1 globulin Elph [Mass/Vol] 0.31 g/dL Normal 0.18-0.43 [facility] Comment on above: Order Comment: Speci men Type: BLOOD SPECIMENOrdering Facility: [facility] Address: [address] [place] [address] Performed By: #### L [id number] ####[facility] LABCLIA [id number] [place] [address] [place] Alpha 2 globulin Elph [Mass/Vol] 0.93 g/dL Normal 0.42-0.98 [facility] Comment on above: Order Comment: Speci men Type: BLOOD SPECIMENOrdering Facility: [facility] Address: [address] [place] [address] Performed By: #### L [id number] ####[facility] LABIA [id number] [place] [address] [place] Beta globulin Elph [Mass/Vol] 0.83 g/dL Normal 0.61-1.17 [facility] Comment on above: Order Comment: Speci men Type: BLOOD SPECIMENOrdering Facility: [facility] Address: [address] [place] [address] Performed By: #### L [id number] ####[facility] LABIA [id number] [place] [address] [place] Gamma globulin Elph [Mass/Vol] 0.80 g/dL Normal 0.53-1.51 [facility] Comment on above: Order Comment: Speci men Type: BLOOD SPECIMENOrdering Facility: [facility] Address: [address] [place] [address] Performed By: #### L [id number] ####[facility] LABIA [id number] [place] [address] [place] M-PROTEIN LOCATION Normal [facility] Comment on above: Order Comment: Speci men Type: BLOOD SPECIMENOrdering Facility: [facility] Address: [address] [place] [address] Result Comment: Not Applicable. Performed By: #### L [id number] ####[facility] LABIA [id number] [place] [address] [place] Protein Fractions [Interp] No definitive M protein is identified on protein electrophoresis. Normal No definitive M protein is identified on protein electrophor esis. [facility] Comment on above: Order Comment: Speci men Type: BLOOD SPECIMENOrdering Facility: [facility] Address: [address] [place] [address] Performed By: #### L [id number] ####[facility] [id number] [place] [address] [place] Protein.monoclonal Elph [Mass/Vol] 0.00 g/dL Normal <=0.00 [facility] Comment on above: Order Comment: Speci men Type: BLOOD SPECIMENOrdering Facility: [facility] Address: [address] [place] [address] Performed By: #### L [id number] ####[facility] [id number] [place] [address] [place] SPE STAFF REVIEW Reviewed by Lexus Zelaya M.D. Normal [facility] Comment on above: Order Comment: Speci men Type: BLOOD SPECIMENOrdering Facility: [facility] Address: [address] [place] [address] Performed By: #### L [id number] ####[facility] [id number] [place] [address] [place] Platelet adequacy [Presence] in Blood by Light microscopyon 12-24-2023 Platelets LM Ql (Bld) Adequate [facility] Platelet mean volume Auto (B ld) [Entitic vol]on 12-24-2023 Platelet mean volume (Bld) [Entitic vol] 10.2 fL 9.0-12.7 [facility] Platelets Auto (Bld) [#/Vol] on 12-24-2023 Platelets (Bld) [#/Vol] 241 10*3/uL 150-400 [facility] Polychromasia [Presence] in Blood by Light microscopyon 12-24-2023 Polychromasia LM Ql (Bld) Slight [facility] Prot SerPl-mCncon 12-24-2023 Protein [Mass/Vol] 6.3 g/dL Normal 6.3-8.0 [facility] Comment on above: Order Comment: Speci men Type: BLOOD SPECIMENOrdering Facility: [facility] Address: [address] [place] [address] Performed By: #### 2 885-2 ####[facility] LABCLIA [id number] [facility] [address] [address] [place] Protein [Mass/volume] in Ser um or Plasmaon 12-24-2023 Protein [Mass/Vol] 6.3 g/dL 6.3-8.0 [facility] RBC Auto (Bld) [#/Vol]on RBC (Bld) [#/Vol] 3.71 10*6/uL Low 4.20-6.00 [facility] Serum or plasma alpha 1 glob ulin measurement by electrophoresis (mass/volume)on 12-24-2023 Alpha 1 globulin Elph [Mass/Vol] 0.31 g/dL 0.18-0.43 [facility] Serum or plasma alpha 2 glob ulin measurement by electrophoresis (mass/volume)on 12-24-2023 Alpha 2 globulin Elph [Mass/Vol] 0.93 g/dL 0.42-0.98 [facility] Serum or plasma anion gap de terminationon 12-24-2023 Anion gap [Moles/Vol] 9 mmol/L 8-15 [facility] Serum or plasma beta globuli n measurement by electrophoresis (mass/volume)on 12-24-2023 Beta globulin Elph [Mass/Vol] 0.83 g/dL 0.61-1.17 [facility] Serum or plasma gamma globul in measurement by electrophoresis (mass/volume)on 12-24-2023 Gamma globulin Elph [Mass/Vol] 0.80 g/dL 0.53-1.51 [facility] Teardrop cell detectionon Dacrocytes LM Ql (Bld) Few Fi relaNov[facility] Health Albumin [Mass/volume] in Ser um or Plasmaon 11-26-2023 Albumin [Mass/Vol] 3.35 g/dL Low 3.43-5.41 [facility] Basophils Auto (Bld) [#/Vol] on 11-26-2023 Basophils (Bld) [#/Vol] 0.05 10*3/uL <0.11 [facility] Basophils/100 WBC Auto (Bld) on 11-26-2023 Basophils/100 WBC (Bld) 0.4 % [facility] Blood manual differential co mment interpretation narrativeon 11-26-2023 Manual differential comment Aashish (Bld) [Interp] Auto [facility] CBC W Auto Differential pane l (Bld)on 11-26-2023 Basophils (Bld) [#/Vol] 0.05 10*3/uL [facility] Basophils/100 WBC (Bld) 0.4 % [facility] Differential cell count method Nom (Bld) Auto [facility] Eosinophils (Bld) [#/Vol] 0.16 10*3/uL [facility] Eosinophils/100 WBC (Bld) 1.4 % [facility] Erythrocyte distribution width (RBC) [Ratio] 13.2 % 11.5 - 15.0 % [facility] Hematocrit (Bld) [Volume fraction] 39.5 % 39.0 - 51.0 % [facility] Hemoglobin (Bld) [Mass/Vol] 13.2 g/dL 13.0 - 17.0 g/dL [facility] Immature granulocytes (Bld) [#/Vol] 0.08 10*3/uL [facility] Immature granulocytes/100 WBC (Bld) 0.7 % [facility] Interpretation and review of laboratory results Abnormal [facility] Lymphocytes (Bld) [#/Vol] 1.21 10*3/uL [facility] Lymphocytes/100 WBC (Bld) 10.6 % [facility] MCH (RBC) [Entitic mass] 34.6 pg High 26. 0 - 34.0 pg [facility] MCHC (RBC) [Mass/Vol] 33.4 g/dL 30.5 - 36.0 g/dL [facility] MCV (RBC) [Entitic vol] 103.7 fL High 80.0 - 100.0 fL [facility] Monocytes (Bld) [#/Vol] 1.50 10*3/uL [facility] Monocytes/100 WBC (Bld) 13.1 % [facility] Neutrophils (Bld) [#/Vol] 8.44 10*3/uL High [facility] Neutrophils/100 WBC (Bld) 73.8 % [facility] Nucleated RBC (Bld) [#/Vol] NINF [facility] Nucleated RBC/100 WBC (Bld) [Ratio] 0.0 % /100 WBC [facility] Platelet mean volume (Bld) [Entitic vol] 10.9 fL 9.0 - 12.7 fL [facility] Platelets (Bld) [#/Vol] 214 10*3/uL [facility] RBC (Bld) [#/Vol] 3.81 10*6/uL Low 4.20 - 6.0 0 m/uL [facility] WBC (Bld) [#/Vol] 11.44 10*3/uL High [facility] Basophils (Bld) [#/Vol] 0.05 10*3/uL Normal <0.11 [facility] Comment on above: Order Comment: Speci men Type: BLOOD SPECIMENOrdering Facility: [facility] Address: [address] [place] [address] Performed By: #### 5 7021-8 ####[facility] LABCLIA [id number] [place] [address] Basophils/100 WBC (Bld) 0.4 % Normal [facility] Comment on above: Order Comment: Speci men Type: BLOOD SPECIMENOrdering Facility: [facility] Address: [address] [place] [address] Performed By: #### 5 7021-8 ####[facility] LABCLIA [id number] [place] [address] Differential cell count method Nom (Bld) Auto Normal [facility] Comment on above: Order Comment: Speci men Type: BLOOD SPECIMENOrdering Facility: [facility] Address: [address] [place] [address] Performed By: #### 5 7021-8 ####[facility] LABCLIA [id number] [place] [address] Eosinophils (Bld) [#/Vol] 0.16 10*3/uL Normal <0.46 [facility] Comment on above: Order Comment: Speci men Type: BLOOD SPECIMENOrdering Facility: [facility] Address: [address] [place] [address] Performed By: #### 5 7021-8 ####[facility] LABCLIA [id number] [place] [address] Eosinophils/100 WBC (Bld) 1.4 % Normal [facility] Comment on above: Order Comment: Speci men Type: BLOOD SPECIMENOrdering Facility: [facility] Address: [address] [place] [address] Performed By: #### 5 7021-8 ####[facility] LABCLIA [id number] [place] [address] Erythrocyte distribution width (RBC) [Ratio] 13.2 % Normal 11.5-15.0 [facility] Comment on above: Order Comment: Speci men Type: BLOOD SPECIMENOrdering Facility: [facility] Address: [address] [place] [address] Performed By: #### 5 7021-8 ####[facility] LABCLIA [id number] [place] [address] Hematocrit (Bld) [Volume fraction] 39.5 % Normal 39.0-51.0 [facility] Comment on above: Order Comment: Speci men Type: BLOOD SPECIMENOrdering Facility: [facility] Address: [address] [place] [address] Performed By: #### 5 7021-8 ####[facility] LABCLIA [id number] [place] [address] Hemoglobin (Bld) [Mass/Vol] 13.2 g/dL Normal 13.0-17.0 [facility] Comment on above: Order Comment: Speci men Type: BLOOD SPECIMENOrdering Facility: [facility] Address: [address] [place] [address] Performed By: #### 5 7021-8 ####[facility] LABCLIA [id number] [place] [address] Immature granulocytes (Bld) [#/Vol] 0.08 10*3/uL Normal <0.10 [facility] Comment on above: Order Comment: Speci men Type: BLOOD SPECIMENOrdering Facility: [facility] Address: [address] [place] [address] Performed By: #### 5 7021-8 ####[facility] LABCLIA [id number] [place] [address] Immature granulocytes/100 WBC (Bld) 0.7 % Normal [facility] Comment on above: Order Comment: Speci men Type: BLOOD SPECIMENOrdering Facility: [facility] Address: [address] [place] [address] Performed By: #### 5 7021-8 ####[facility] LABCLIA [id number] [place] [address] Lymphocytes (Bld) [#/Vol] 1.21 10*3/uL Normal 1.00-4.00 [facility] Comment on above: Order Comment: Speci men Type: BLOOD SPECIMENOrdering Facility: [facility] Address: [address] [place] [address] Performed By: #### 5 7021-8 ####[facility] LABCLIA [id number] [place] [address] Lymphocytes/100 WBC (Bld) 10.6 % Normal [facility] Comment on above: Order Comment: Speci men Type: BLOOD SPECIMENOrdering Facility: [facility] Address: [address] [place], [place] [address] Performed By: #### 5 7021-8 ####[facility] LABCLIA [id number] [place] [address] MCH (RBC) [Entitic mass] 34.6 pg High 26.0-34.0 [facility] Comment on above: Order Comment: Speci men Type: BLOOD SPECIMENOrdering Facility: [facility] Address: [address] [place] [address] Performed By: #### 5 7021-8 ####[facility] LABCLIA [id number] [place] [address] MCHC (RBC) [Mass/Vol] 33.4 g/dL Normal 30.5-36.0 [facility] Comment on above: Order Comment: Speci men Type: BLOOD SPECIMENOrdering Facility: [facility] Address: [address] [place] [address] Performed By: #### 5 7021-8 ####[facility] LABIA [id number] [place] [address] MCV (RBC) [Entitic vol] 103.7 fL High 80.0-100.0 [facility] Comment on above: Order Comment: Speci men Type: BLOOD SPECIMENOrdering Facility: [facility] Address: [address] [place] [address] Performed By: #### 5 7021-8 ####[facility] LABCLIA [id number] [place] [address] Monocytes (Bld) [#/Vol] 1.50 10*3/uL High <0.87 [facility] Comment on above: Order Comment: Speci men Type: BLOOD SPECIMENOrdering Facility: [facility] Address: [address] [place] [address] Performed By: #### 5 7021-8 ####[facility] LABCLIA [id number] [place] [address] Monocytes/100 WBC (Bld) 13.1 % Normal [facility] Comment on above: Order Comment: Speci men Type: BLOOD SPECIMENOrdering Facility: [facility] Address: [address] [place] [address] Performed By: #### 5 7021-8 ####[facility] LABCLIA [id number] [place] [address] Neutrophils (Bld) [#/Vol] 8.44 10*3/uL High 1.45-7.50 [facility] Comment on above: Order Comment: Speci men Type: BLOOD SPECIMENOrdering Facility: [facility] Address: [address] [place] [address] Performed By: #### 5 7021-8 ####[facility] LABCLIA [id number] [place] [address] Neutrophils/100 WBC (Bld) 73.8 % Normal [facility] Comment on above: Order Comment: Speci men Type: BLOOD SPECIMENOrdering Facility: [facility] Address: [address] [place] [address] Performed By: #### 5 7021-8 ####[facility] LABCLIA [id number] [place] [address] Nucleated RBC (Bld) [#/Vol] 10*3/uL Normal <0.01 [facility] Comment on above: Order Comment: Speci men Type: BLOOD SPECIMENOrdering Facility: [facility] Address: [address] [place] [address] Performed By: #### 5 7021-8 ####[facility] LABCLIA [id number] [place] [address] Nucleated RBC/100 WBC (Bld) [Ratio] 0.0 /100 WBC Normal [facility] Comment on above: Order Comment: Speci men Type: BLOOD SPECIMENOrdering Facility: [facility] Address: [address] [place] [address] Performed By: #### 5 7021-8 ####[facility] LABCLIA [id number] [place] [address] Platelet mean volume (Bld) [Entitic vol] 10.9 fL Normal 9.0-12.7 [facility] Comment on above: Order Comment: Speci men Type: BLOOD SPECIMENOrdering Facility: [facility] Address: [address] [place] [address] Performed By: #### 5 7021-8 ####[facility] LABCLIA [id number] [place] [address] Platelets (Bld) [#/Vol] 214 10*3/uL Normal 150-400 [facility] Comment on above: Order Comment: Speci men Type: BLOOD SPECIMENOrdering Facility: [facility] Address: [address] [place] [address] Performed By: #### 5 7021-8 ####[facility] LABCLIA [id number] [place] [address] RBC (Bld) [#/Vol] 3.81 10*6/uL Low 4.20-6.00 [facility] Comment on above: Order Comment: Speci men Type: BLOOD SPECIMENOrdering Facility: [facility] Address: [address] [place] [address] Performed By: #### 5 7021-8 ####[facility] LABCLIA [id number] [place] [address] WBC (Bld) [#/Vol] 11.44 10*3/uL High 3.70-11.00 [facility] Comment on above: Order Comment: Speci men Type: BLOOD SPECIMENOrdering Facility: [facility] Address: [address] [place] [address] Performed By: #### 5 7021-8 ####[facility] LABCLIA [id number] [place] [address] CNOVSPon 11-26-2023 CNOVSP Normal [facility] metabolic 2000 panelOrdered By: Frank Bender on 11-26-2023 Albumin [Mass/Vol] 4.0 g/dL 3.9 - 4.9 g/dL [facility] ALP [Catalytic activity/Vol] 91 U/L 38 - 113 U/L [facility] ALT [Catalytic activity/Vol] 14 U/L 10 - 54 U/L [facility] Anion gap [Moles/Vol] 11 mmol/L 9 - 18 mmol/L [facility] AST [Catalytic activity/Vol] 20 U/L 14 - 40 U/L [facility] Bilirubin [Mass/Vol] 0.3 mg/dL 0.2 - 1 .3 mg/dL [facility] Calcium [Mass/Vol] 9.8 mg/dL 8.5 - 10. 2 mg/dL [facility] Chloride [Moles/Vol] 103 mmol/L 97 - 10 5 mmol/L [facility] CO2 [Moles/Vol] 25 mmol/L 22 - 30 mmol/L [facility] Creatinine [Mass/Vol] 1.42 mg/dL High 0.73 - 1.22 mg/dL [facility] GFR/1.73 sq M.predicted among non-blacks MDRD (S/P/Bld) [Vol rate/Area] 50 mL/min/{1.73_m2} Low - PINF [facility] Comment on above: Estimated Glomerular Filtration Rate (eGFR) is calculated using the 2020 CKD-EPI creatinine equation. This equation utilizes serum creatinine, sex, and age as parameters. The creatinine assay has traceable calibration to isotope dilution-mass spectrometry. Refer to KDIGO guidelines for clinical interpretation. In patients with unstable renal function, e.g. those with acute kidney injury, the eGFR may not accurately reflect actual GFR. Glucose [Mass/Vol] 115 mg/dL High 74 - 99 mg/dL [facility] Comment on above: The [place] [employer] Association (ADA) provides guidance for cutoff values for fasting glucose and random glucose. The ADA defines fasting as no caloric intake for at least 8 hours. Fasting plasma glucose results between 100 to 125 mg/dL indicate increased risk for diabetes (prediabetes). Fasting plasma glucose results greater than or equal to 126 mg/dL meet the criteria for diagnosis of diabetes. In the absence of unequivocal hyperglycemia, results should be confirmed by repeat testing. In a patient with classic symptoms of hyperglycemia or hyperglycemic crisis, random plasma glucose results greater than or equal to 200 mg/dL meet the criteria for diagnosis of diabetes. Reference: Standards of Medical Care in Diabetes 2016, [place] [employer]. Diabetes Care. 2016.39(Suppl 1). Interpretation and review of laboratory results Abnormal [facility] Potassium [Moles/Vol] 4.5 mmol/L 3.7 - 5.1 mmol/L [facility] Protein [Mass/Vol] 6.9 g/dL 6.3 - 8.0 g/dL [facility] Sodium [Moles/Vol] 139 mmol/L 136 - 144 mmol/L [facility] Urea nitrogen [Mass/Vol] 29 mg/dL High 9 - 24 mg/dL [facility] Comprehensive metabolic 2000 panelon 11-26-2023 Albumin [Mass/Vol] 4.0 g/dL Normal 3.9-4.9 [facility] Comment on above: Order Comment: Speci men Type: BLOOD SPECIMENOrdering Facility: [facility] Address: [address] [place] [address] Performed By: #### 2 4323-8 ####[facility] LABCLIA [id number] [place] [address] ALP [Catalytic activity/Vol] 91 U/L Normal 38-113 [facility] Comment on above: Order Comment: Speci men Type: BLOOD SPECIMENOrdering Facility: [facility] Address: [address] [place] [address] Performed By: #### 2 4323-8 ####[facility] LABCLIA [id number] [place] [address] ALT [Catalytic activity/Vol] 14 U/L Normal 10-54 [facility] Comment on above: Order Comment: Speci men Type: BLOOD SPECIMENOrdering Facility: [facility] Address: [address] [place] [address] Performed By: #### 2 4323-8 ####[facility] LABCLIA [id number] [place] [address] Anion gap [Moles/Vol] 11 mmol/L Normal 9-18 [facility] Comment on above: Order Comment: Speci men Type: BLOOD SPECIMENOrdering Facility: [facility] Address: [address] [place] [address] Performed By: #### 2 4323-8 ####[facility] LABCLIA [id number] [place] [address] AST [Catalytic activity/Vol] 20 U/L Normal 14-40 [facility] Comment on above: Order Comment: Speci men Type: BLOOD SPECIMENOrdering Facility: [facility] Address: [address] [place] [address] Performed By: #### 2 4323-8 ####[facility] LABCLIA [id number] [place] [address] Bilirubin [Mass/Vol] 0.3 mg/dL Normal 0.2-1.3 [facility] Comment on above: Order Comment: Speci men Type: BLOOD SPECIMENOrdering Facility: [facility] Address: [address] [place] [address] Performed By: #### 2 4323-8 ####[facility] LABCLIA [id number] [place] [address] Calcium [Mass/Vol] 9.8 mg/dL Normal 8.5-10.2 [facility] Comment on above: Order Comment: Speci men Type: BLOOD SPECIMENOrdering Facility: [facility] Address: [address] [place] [address] Performed By: #### 2 4323-8 ####[facility] LABCLIA [id number] [place] [address] Chloride [Moles/Vol] 103 mmol/L Normal 97-105 [facility] Comment on above: Order Comment: Speci men Type: BLOOD SPECIMENOrdering Facility: [facility] Address: [address] [place] [address] Performed By: #### 2 4323-8 ####[facility] LABCLIA [id number] [place] [address] CO2 [Moles/Vol] 25 mmol/L Normal 22-30 [facility] Comment on above: Order Comment: Speci men Type: BLOOD SPECIMENOrdering Facility: [facility] Address: [address] [place] [address] Performed By: #### 2 4323-8 ####[facility] LABCLIA [id number] [place] [address] Creatinine [Mass/Vol] 1.42 mg/dL High 0.73-1.22 [facility] Comment on above: Order Comment: Speci men Type: BLOOD SPECIMENOrdering Facility: [facility] Address: [address] [place] [address] Performed By: #### 2 4323-8 ####[facility] LABCLIA [id number] [place] [address] Creatinine and Glomerular filtration rate.predicted panel (S/P/Bld) 50 mL/min/1.73m??? Low >=60 [facility] Comment on above: Order Comment: Speci men Type: BLOOD SPECIMENOrdering Facility: [facility] Address: [address] [place] [address] Result Comment: Janae mated Glomerular Filtration Rate (eGFR) is calculated using the 2020 CKD-EPI creatinine equation. This equation utilizes serum creatinine, sex, and age as parameters. The creatinine assay has traceable calibration to isotope dilution-mass spectrometry. Refer to KDIGO guidelines for clinical interpretation. In patients with unstable renal function, e.g. those with acute kidney injury, the eGFR may not accurately reflect actual GFR. Performed By: #### 2 4323-8 ####[facility] LABCLIA [id number] [place] [address] Glucose [Mass/Vol] 115 mg/dL High 74-99 [facility] Comment on above: Order Comment: Speci men Type: BLOOD SPECIMENOrdering Facility: [facility] Address: [address] [place] [address] Result Comment: The [place] Diabetes [employer] (ADA) provides guidance for cutoff values for fasting glucose and random glucose. The ADA defines fasting as no caloric intake for at least 8 hours. Fasting plasma glucose results between 100 to 125 mg/dL indicate increased risk for diabetes (prediabetes).Fasting plasma glucose results greater than or equal to 126 mg/dL meet the criteria for diagnosis of diabetes. In the absence of unequivocal hyperglycemia, results should be confirmed by repeat testing. In a patient with classic symptoms of hyperglycemia or hyperglycemic crisis, random plasma glucose results greater than or equal to 200 mg/dL meet the criteria for diagnosis of diabetes.Reference: Standards of Medical Care in Diabetes 2016, [place] [employer]. Diabetes Care. 2016.39(Suppl 1). Performed By: #### 2 4323-8 ####[facility] LABCLIA [id number] [place] [address] Potassium [Moles/Vol] 4.5 mmol/L Normal 3.7-5.1 [facility] Comment on above: Order Comment: Speci men Type: BLOOD SPECIMENOrdering Facility: [facility] Address: [address] [place] [address] Performed By: #### 2 4323-8 ####[facility] LABCLIA [id number] [place] [address] Protein [Mass/Vol] 6.9 g/dL Normal 6.3-8.0 [facility] Comment on above: Order Comment: Speci men Type: BLOOD SPECIMENOrdering Facility: [facility] Address: [address] [place] [address] Performed By: #### 2 4323-8 ####[facility] LABCLIA [id number] [place] [address] Sodium [Moles/Vol] 139 mmol/L Normal 136-144 [facility] Comment on above: Order Comment: Speci men Type: BLOOD SPECIMENOrdering Facility: [facility] Address: [address] [place] [address] Performed By: #### 2 4323-8 ####[facility] LABCLIA [id number] [place] [address] Urea nitrogen [Mass/Vol] 29 mg/dL High 9-24 [facility] Comment on above: Order Comment: Speci men Type: BLOOD SPECIMENOrdering Facility: [facility] Address: [address] [place] [address] Performed By: #### 2 4323-8 ####[facility] LABCLIA [id number] [place] [address] Eosinophils/100 WBC Auto (Bl d)on 11-26-2023 Eosinophils/100 WBC (Bld) 1.4 % [facility] Erythrocyte distribution wid th Auto (RBC) [Ratio]on 11-26-2023 Erythrocyte distribution width (RBC) [Ratio] 13.2 % 11.5-15.0 [facility] Hematocrit Auto (Bld) [Volum e fraction]on 11-26-2023 Hematocrit (Bld) [Volume fraction] 39.5 % 39.0-51.0 [facility] Hemoglobin [Mass/volume] in Bloodon 11-26-2023 Hemoglobin (Bld) [Mass/Vol] 13.2 g/dL 13.0-17.0 [facility] IMMUNOFIXATION SCREEN, SERUM on 11-26-2023 INTERPRETATION (MPA) Normal [facility] Comment on above: Order Comment: Speci men Type: BLOOD SPECIMENOrdering Facility: [facility] Address: [address] [place] [address] Performed By: #### I FESC ####[facility] LABCLIA [id number] [place] [address] [place] MPA RESULT A poorly defined region of restricted mobility is present that may represent an M protein. Abnormal No M protein is identified. [facility] Comment on above: Order Comment: Speci men Type: BLOOD SPECIMENOrdering Facility: [facility] Address: [address] [place] [address] Performed By: #### I FESC ####[facility] LABCLIA [id number] [place] [address] [place] STAFF REVIEW (MPA) Reviewed by Dr. Britton Ceballos MD [facility] Comment on above: Order Comment: Speci men Type: BLOOD SPECIMENOrdering Facility: [facility] Address: [address] [place] [address] Performed By: #### I FESC ####[facility] LABCLIA [id number] [place] [address] [place] IMMUNOGLOBULINS,IGG,IGA,IGMo n 11-26-2023 IgA [Mass/Vol] 158 mg/dL Normal 70-400 [facility] Comment on above: Order Comment: Speci men Type: BLOOD SPECIMENOrdering Facility: [facility] Address: [address] [place] [address] Performed By: #### S ERIMM ####[facility] LABCLIA [id number] [place] [address] [place] IgG [Mass/Vol] 882 mg/dL Normal 700-1600 [facility] Comment on above: Order Comment: Speci men Type: BLOOD SPECIMENOrdering Facility: [facility] Address: [address] [place] [address] Performed By: #### S ERIMM ####[facility] LABCLIA [id number] [place] [address] [place] IgM [Mass/Vol] 16 mg/dL Low 40-230 [facility] Comment on above: Order Comment: Speci men Type: BLOOD SPECIMENOrdering Facility: [facility] Address: [address] [place] [address] Performed By: #### S ERIMM ####[facility] LABCLIA [id number] [place] [address] [place] IgA [Mass/volume] in Serum o r Plasmaon 11-26-2023 IgA [Mass/Vol] 158 mg/dL 70-400 [facility] IgG [Mass/volume] in Serum o r Plasmaon 11-26-2023 IgG [Mass/Vol] 882 mg/dL 700-1600 [facility] IgM [Mass/volume] in Serum o r Plasmaon 11-26-2023 IgM [Mass/Vol] 16 mg/dL Low 40-230 [facility] Immunoglobulin light chains. kappa.free [Mass/volume] in Serumon 11-26-2023 Immunoglobulin light chains.kappa.free (S) [Mass/Vol] 13.5 mg/L 3.3-19.4 [facility] Comment on above: Rarely, increased se rum free light chains levels may not be detected or accurately quantified due to prozone phenomenon or in high viscosity samples using this immunoturbidimetric assay. Correlation with other laboratory results and clinical findings is recommended. The [place] Free Light Chain was performed using the Binding Site Optilite immunoturbidimetric method. Result obtained with different assay methods or kits cannot be used interchangeably. Immunoglobulin light chains. kappa.free/Immunoglobulin light chains.lambda.free [Fransisca 11-26-2023 Immunoglobulin light chains.kappa.free/Immuno globulin light chains.lambda.free (S) [Mass ratio] 1.59 0.26-1.65 [facility] Immunoglobulin light chains. lambda.free [Mass/volume] in Serum or Plasmaon 11-26-2023 Immunoglobulin light chains.lambda.free [Mass/Vol] 8.5 mg/L 5.7-26.3 [facility] Comment on above: Rarely, increased se rum free light chains levels may not be detected or accurately quantified due to prozone phenomenon or in high viscosity samples using this immunoturbidimetric assay. Correlation with other laboratory results and clinical findings is recommended. The Lambda Free Light Chain was performed using the Binding Site Optilite immunoturbidimetric method. Result obtained with different assay methods or kits cannot be used interchangeably. KAPPA/HERNANDEZ,FREE,SERon 2023 Immunoglobulin light chains.kappa.free (S) [Mass/Vol] 13.5 mg/L Normal 3.3-19.4 [facility] Comment on above: Order Comment: Speci men Type: BLOOD SPECIMENOrdering Facility: [facility] Address: [address] [place], [place] [address] Result Comment: Rare ly, increased serum free light chains levels may not be detected or accurately quantified due to prozone phenomenon or in high viscosity samples using this immunoturbidimetric assay. Correlation with other laboratory results and clinical findings is recommended.The [place] Free Light Chain was performed using the Binding Site Optilite immunoturbidimetric method. Result obtained with different assay methods or kits cannot be used interchangeably. Performed By: #### K LFRS ####[facility] LABCLIA [id number] [place] [address] [place] Immunoglobulin light chains.kappa/Immunoglobu natanael light chains.lambda (S) [Mass ratio] 1.59 Normal 0.26-1.65 [facility] Comment on above: Order Comment: Speci men Type: BLOOD SPECIMENOrdering Facility: [facility] Address: [address] [place] [address] Performed By: #### K LFRS ####[facility] LABCLIA [id number] [address] [place] [facility] Immunoglobulin light chains.lambda.free [Mass/Vol] 8.5 mg/L Normal 5.7-26.3 [facility] Comment on above: Order Comment: Speci men Type: BLOOD SPECIMENOrdering Facility: [facility] Address: [address] [place] [address] Result Comment: Rare ly, increased serum free light chains levels may not be detected or accurately quantified due to prozone phenomenon or in high viscosity samples using this immunoturbidimetric assay. Correlation with other laboratory results and clinical findings is recommended.The Lambda Free Light Chain was performed using the Binding Site Optilite immunoturbidimetric method. Result obtained with different assay methods or kits cannot be used interchangeably. Performed By: #### K LFRS ####[facility] LABIA [id number] [place] [address] [place] Laboratory - Chemistry and C hemistry - challengeon 11-26-2023 Albumin [Mass/Vol] 4.0 g/dL 3.9-4.9 [facility] ALP [Catalytic activity/Vol] 91 U/L 38-113 [facility] ALT [Catalytic activity/Vol] 14 U/L 10-54 [facility] AST [Catalytic activity/Vol] 20 U/L 14-40 [facility] Bilirubin [Mass/Vol] 0.3 mg/dL 0.2-1.3 [facility] Calcium [Mass/Vol] 9.8 mg/dL 8.5-10.2 [facility] Chloride [Moles/Vol] 103 mmol/L 97-105 [facility] CO2 [Moles/Vol] 25 mmol/L 22-30 [facility] Creatinine [Mass/Vol] 1.42 mg/dL High 0.73-1.22 [facility] Glucose [Mass/Vol] 115 mg/dL High 74-99 [facility] Comment on above: The [place] Diabete s Association (ADA) provides guidance for cutoff values for fasting glucose and random glucose. The ADA defines fasting as no caloric intake for at least 8 hours. Fasting plasma glucose results between 100 to 125 mg/dL indicate increased risk for diabetes (prediabetes).Fasting plasma glucose results greater than or equal to 126 mg/dL meet the criteria for diagnosis of diabetes. In the absence of unequivocal hyperglycemia, results should be confirmed by repeat testing. In a patient with classic symptoms of hyperglycemia or hyperglycemic crisis, random plasma glucose results greater than or equal to 200 mg/dL meet the criteria for diagnosis of diabetes.Reference: Standards of Medical Care in Diabetes 2016, [place] [employer]. Diabetes Care. 2016.39(Suppl 1). Potassium [Moles/Vol] 4.5 mmol/L 3.7-5.1 [facility] Protein [Mass/Vol] 0.27 g/dL High <=0.00 [facility] Sodium [Moles/Vol] 139 mmol/L 136-144 [facility] Urea nitrogen [Mass/Vol] 29 mg/dL High 9-24 [facility] Laboratory - Hematology and Cell countson 11-26-2023 Eosinophils (Bld) [#/Vol] 0.16 10*3/uL <0.46 [facility] Immature granulocytes (Bld) [#/Vol] 0.08 10*3/uL <0.10 [facility] Immature granulocytes/100 WBC (Bld) 0.7 % [facility] Leukocytes [#/volume] correc tony for nucleated erythrocytes in Blood by Automated counon 11-26-2023 WBC corrected for nucl RBC Auto (Bld) [#/Vol] 11.44 k/uL High 3.70-11.00 [facility] Lymphocytes Auto (Bld) [#/Vo l]on 11-26-2023 Lymphocytes (Bld) [#/Vol] 1.21 10*3/uL 1.00-4.00 [facility] Lymphocytes/100 WBC Auto (Bl d)on 11-26-2023 Lymphocytes/100 WBC (Bld) 10.6 % [facility] MCH Auto (RBC) [Entitic mass ]on 11-26-2023 MCH (RBC) [Entitic mass] 34.6 pg High 26.0-34.0 [facility] MCHC Auto (RBC) [Mass/Vol]on 11-26-2023 MCHC (RBC) [Mass/Vol] 33.4 g/dL 30.5-36.0 [facility] MCV Auto (RBC) [Entitic vol] on 11-26-2023 MCV (RBC) [Entitic vol] 103.7 fL High 80.0-100.0 [facility] Monocytes Auto (Bld) [#/Vol] on 11-26-2023 Monocytes (Bld) [#/Vol] 1.50 10*3/uL High <0.87 [facility] Monocytes/100 WBC Auto (Bld) on 11-26-2023 Monocytes/100 WBC (Bld) 13.1 % [facility] Neutrophils Auto (Bld) [#/Vo l]on 11-26-2023 Neutrophils (Bld) [#/Vol] 8.44 10*3/uL High 1.45-7.50 [facility] Neutrophils/100 WBC Auto (Bl d)on 11-26-2023 Neutrophils/100 WBC (Bld) 73.8 % [facility] No Panel Informationon 11-25 Estimated GFR (CKD-EPI) 50 mL/min/1.73m??? Low >=60 [facility] Comment on above: Estimated Glomerular Filtration Rate (eGFR) is calculated using the 2020 CKD-EPI creatinine equation. This equation utilizes serum creatinine, sex, and age as parameters. The creatinine assay has traceable calibration to isotope dilution-mass spectrometry. Refer to KDIGO guidelines for clinical interpretation. In patients with unstable renal function, e.g. those with acute kidney injury, the eGFR may not accurately reflect actual GFR. Immunofixation Interpretation [facility] Leuk/Lymph Sign Pathologist (Misc) Reviewed by Dr. Marcial Ceballos MD [facility] Miscellaneous Test 6 Gamma Fraction 1 [facility] Miscellaneous Test Comment Reviewed by Dr. Marcial Ceballos MD [facility] Protein Electrophoresis Interpret [facility] Protein Electrophoresis Note An M protein is identified on protein electrophoresis. Abnormal No definitive M protein is identified on protein electrophor esis. [facility] Serum Immunofixation Abnormal No M protein is identified. [facility] Nucleated RBC Auto (Bld) [#/ Vol]on 11-26-2023 Nucleated RBC (Bld) [#/Vol] 10*3/uL <0.01 [facility] Nucleated erythrocytes [Pres ence] in Blood by Automated counton 11-26-2023 Nucleated RBC Auto Ql (Bld) 0.0 /100{WBC} [facility] PROTEIN ELECTROPHORESIS SERU M (P)on 11-26-2023 Albumin [Mass/Vol] 3.35 g/dL Low 3.43-5.41 [facility] Comment on above: Order Comment: Speci men Type: BLOOD SPECIMENOrdering Facility: [facility] Address: [address] [place] [address] Performed By: #### L [id number] ####[facility] LABCLIA [id number] [place] [address] [place] Alpha 1 globulin Elph [Mass/Vol] 0.21 g/dL Normal 0.18-0.43 [facility] Comment on above: Order Comment: Speci men Type: BLOOD SPECIMENOrdering Facility: [facility] Address: [address] [place] [address] Performed By: #### L [id number] ####[facility] LABCLIA [id number] [place] [address] [place] Alpha 2 globulin Elph [Mass/Vol] 0.85 g/dL Normal 0.42-0.98 [facility] Comment on above: Order Comment: Speci men Type: BLOOD SPECIMENOrdering Facility: [facility] Address: [address] [place] [address] Performed By: #### L [id number] ####[facility] LABIA [id number] [place] [address] [place] Beta globulin Elph [Mass/Vol] 0.77 g/dL Normal 0.61-1.17 [facility] Comment on above: Order Comment: Speci men Type: BLOOD SPECIMENOrdering Facility: [facility] Address: [address] [place] [address] Performed By: #### L [id number] ####[facility] LABCLIA [id number] [place] [address] [place] Gamma globulin Elph [Mass/Vol] 0.72 g/dL Normal 0.53-1.51 [facility] Comment on above: Order Comment: Speci men Type: BLOOD SPECIMENOrdering Facility: [facility] Address: [address] [place] [address] Performed By: #### L [id number] ####[facility] LABIA [id number] [place] [address] [place] INTERPRETATION COMMENT FOR PROTEIN ELECTROPHORESIS See separate immunofixation report for characterization of monoclonal gammopathy. Normal [facility] Comment on above: Order Comment: Speci men Type: BLOOD SPECIMENOrdering Facility: [facility] Address: [address] [place] [address] Performed By: #### L [id number] ####[facility] LABIA [id number] [place] [address] [place] M-PROTEIN LOCATION Gamma Fraction 1 Normal [facility] Comment on above: Order Comment: Speci men Type: BLOOD SPECIMENOrdering Facility: [facility] Address: [address] [place] [address] Performed By: #### L [id number] ####[facility] [id number] [place] [address] [place] Protein Fractions [Interp] An M protein is identified on protein electrophoresis. Abnormal No definitive M protein is identified on protein electrophor esis. [facility] Comment on above: Order Comment: Speci men Type: BLOOD SPECIMENOrdering Facility: [facility] Address: [address] [place] [address] Performed By: #### L [id number] ####[facility] [id number] [place] [address] [place] Protein.monoclonal Elph [Mass/Vol] 0.27 g/dL High <=0.00 [facility] Comment on above: Order Comment: Speci men Type: BLOOD SPECIMENOrdering Facility: [facility] Address: [address] [place] [address] Performed By: #### L [id number] ####[facility] [id number] [place] [address] [place] SPE STAFF REVIEW Reviewed by Dr. Britton Ceballos MD [facility] Comment on above: Order Comment: Speci men Type: BLOOD SPECIMENOrdering Facility: [facility] Address: [address] [place] [address] Performed By: #### L [id number] ####[facility] [id number] [place] [address] [place] PROTEIN, TOTALon 11-26-2023 Protein [Mass/Vol] 5.9 g/dL Low 6.3 - 8.0 g/dL [facility] Platelet mean volume Auto (B ld) [Entitic vol]on 11-26-2023 Platelet mean volume (Bld) [Entitic vol] 10.9 fL 9.0-12.7 [facility] Platelets Auto (Bld) [#/Vol] on 11-26-2023 Platelets (Bld) [#/Vol] 214 10*3/uL 150-400 [facility] Prot SerPl-mCncon 11-26-2023 Protein [Mass/Vol] 5.9 g/dL Low 6.3-8.0 [facility] Comment on above: Order Comment: Speci men Type: BLOOD SPECIMENOrdering Facility: [facility] Address: [address] [place] [address] Performed By: #### 2 885-2 ####[facility] LABCLIA [id number] [address] [id number] [address] [place] Protein [Mass/Vol]on 024 Interpretation and review of laboratory results Abnormal [facility] Protein [Mass/volume] in Ser um or Plasmaon 11-26-2023 Protein [Mass/Vol] 5.9 g/dL Low 6.3-8.0 [facility] RBC Auto (Bld) [#/Vol]on RBC (Bld) [#/Vol] 3.81 10*6/uL Low 4.20-6.00 [facility] Serum or plasma alpha 1 glob ulin measurement by electrophoresis (mass/volume)on 11-26-2023 Alpha 1 globulin Elph [Mass/Vol] 0.21 g/dL 0.18-0.43 [facility] Serum or plasma alpha 2 glob ulin measurement by electrophoresis (mass/volume)on 11-26-2023 Alpha 2 globulin Elph [Mass/Vol] 0.85 g/dL 0.42-0.98 [facility] Serum or plasma anion gap de terminationon 11-26-2023 Anion gap [Moles/Vol] 11 mmol/L 9-18 [facility] Serum or plasma beta globuli n measurement by electrophoresis (mass/volume)on 11-26-2023 Beta globulin Elph [Mass/Vol] 0.77 g/dL 0.61-1.17 [facility] Serum or plasma gamma globul in measurement by electrophoresis (mass/volume)on 11-26-2023 Gamma globulin Elph [Mass/Vol] 0.72 g/dL 0.53-1.51 [facility] CNPNon 11-01-2023 CNPN Normal [facility] Albumin [Mass/volume] in Ser um or Plasmaon 10-30-2023 Albumin [Mass/Vol] 3.42 g/dL Low 3.43-5.41 [facility] Basophils Auto (Bld) [#/Vol] on 10-30-2023 Basophils (Bld) [#/Vol] 0.05 10*3/uL <0.11 [facility] Basophils/100 WBC Auto (Bld) on 10-30-2023 Basophils/100 WBC (Bld) 0.5 % [facility] Blood manual differential co mment interpretation narrativeon 10-30-2023 Manual differential comment Aashish (Bld) [Interp] Auto [facility] CBC W Auto Differential pane l (Bld)on 10-30-2023 Basophils (Bld) [#/Vol] 0.05 10*3/uL [facility] Basophils/100 WBC (Bld) 0.5 % [facility] Differential cell count method Nom (Bld) Auto [facility] Eosinophils (Bld) [#/Vol] 0.21 10*3/uL [facility] Eosinophils/100 WBC (Bld) 2.0 % [facility] Erythrocyte distribution width (RBC) [Ratio] 12.5 % 11.5 - 15.0 % [facility] Hematocrit (Bld) [Volume fraction] 37.5 % Low 39.0 - 51.0 % [facility] Hemoglobin (Bld) [Mass/Vol] 12.6 g/dL Low 13.0 - 17.0 g/dL [facility] Immature granulocytes (Bld) [#/Vol] 0.05 10*3/uL [facility] Immature granulocytes/100 WBC (Bld) 0.5 % [facility] Interpretation and review of laboratory results Abnormal [facility] Lymphocytes (Bld) [#/Vol] 1.28 10*3/uL [facility] Lymphocytes/100 WBC (Bld) 12.1 % [facility] MCH (RBC) [Entitic mass] 35.6 pg High 26. 0 - 34.0 pg [facility] MCHC (RBC) [Mass/Vol] 33.6 g/dL 30.5 - 36.0 g/dL [facility] MCV (RBC) [Entitic vol] 105.9 fL High 80.0 - 100.0 fL [facility] Monocytes (Bld) [#/Vol] 1.30 10*3/uL [facility] Monocytes/100 WBC (Bld) 12.3 % [facility] Neutrophils (Bld) [#/Vol] 7.72 10*3/uL High [facility] Neutrophils/100 WBC (Bld) 72.6 % [facility] Nucleated RBC (Bld) [#/Vol] NINF [facility] Nucleated RBC/100 WBC (Bld) [Ratio] 0.0 % /100 WBC [facility] Platelet mean volume (Bld) [Entitic vol] 10.7 fL 9.0 - 12.7 fL [facility] Platelets (Bld) [#/Vol] 191 10*3/uL [facility] RBC (Bld) [#/Vol] 3.54 10*6/uL Low 4.20 - 6.0 0 m/uL [facility] WBC (Bld) [#/Vol] 10.61 10*3/uL [facility] Basophils (Bld) [#/Vol] 0.05 10*3/uL Normal <0.11 [facility] Comment on above: Order Comment: Speci men Type: BLOOD SPECIMENOrdering Facility: [facility] Address: [address] [place] [address] Performed By: #### 5 7021-8 ####[facility] LABCLIA [id number] [place] [address] Basophils/100 WBC (Bld) 0.5 % Normal [facility] Comment on above: Order Comment: Speci men Type: BLOOD SPECIMENOrdering Facility: [facility] Address: [address] [place] [address] Performed By: #### 5 7021-8 ####[facility] LABCLIA [id number] [place] [address] Differential cell count method Nom (Bld) Auto Normal [facility] Comment on above: Order Comment: Speci men Type: BLOOD SPECIMENOrdering Facility: [facility] Address: [address] [place] [address] Performed By: #### 5 7021-8 ####[facility] LABCLIA [id number] [place] [address] Eosinophils (Bld) [#/Vol] 0.21 10*3/uL Normal <0.46 [facility] Comment on above: Order Comment: Speci men Type: BLOOD SPECIMENOrdering Facility: [facility] Address: [address] [place] [address] Performed By: #### 5 7021-8 ####[facility] LABCLIA [id number] [place] [address] Eosinophils/100 WBC (Bld) 2.0 % Normal [facility] Comment on above: Order Comment: Speci men Type: BLOOD SPECIMENOrdering Facility: [facility] Address: [address] [place] [address] Performed By: #### 5 7021-8 ####[facility] LABCLIA [id number] [place] [address] Erythrocyte distribution width (RBC) [Ratio] 12.5 % Normal 11.5-15.0 [facility] Comment on above: Order Comment: Speci men Type: BLOOD SPECIMENOrdering Facility: [facility] Address: [address] [place] [address] Performed By: #### 5 7021-8 ####[facility] LABCLIA [id number] [place] [address] Hematocrit (Bld) [Volume fraction] 37.5 % Low 39.0-51.0 [facility] Comment on above: Order Comment: Speci men Type: BLOOD SPECIMENOrdering Facility: [facility] Address: [address] [place] [address] Performed By: #### 5 7021-8 ####[facility] LABCLIA [id number] [place] [address] Hemoglobin (Bld) [Mass/Vol] 12.6 g/dL Low 13.0-17.0 [facility] Comment on above: Order Comment: Speci men Type: BLOOD SPECIMENOrdering Facility: [facility] Address: [address] [place] [address] Performed By: #### 5 7021-8 ####[facility] LABCLIA [id number] [place] [address] Immature granulocytes (Bld) [#/Vol] 0.05 10*3/uL Normal <0.10 [facility] Comment on above: Order Comment: Speci men Type: BLOOD SPECIMENOrdering Facility: [facility] Address: [address] [place] [address] Performed By: #### 5 7021-8 ####[facility] LABCLIA [id number] [place] [address] Immature granulocytes/100 WBC (Bld) 0.5 % Normal [facility] Comment on above: Order Comment: Speci men Type: BLOOD SPECIMENOrdering Facility: [facility] Address: [address] [place] [address] Performed By: #### 5 7021-8 ####[facility] LABCLIA [id number] [place] [address] Lymphocytes (Bld) [#/Vol] 1.28 10*3/uL Normal 1.00-4.00 [facility] Comment on above: Order Comment: Speci men Type: BLOOD SPECIMENOrdering Facility: [facility] Address: [address] [place] [address] Performed By: #### 5 7021-8 ####[facility] LABCLIA [id number] [place] [address] Lymphocytes/100 WBC (Bld) 12.1 % Normal [facility] Comment on above: Order Comment: Speci men Type: BLOOD SPECIMENOrdering Facility: [facility] Address: [address] [place] [address] Performed By: #### 5 7021-8 ####[facility] LABCLIA [id number] [place] [address] MCH (RBC) [Entitic mass] 35.6 pg High 26.0-34.0 [facility] Comment on above: Order Comment: Speci men Type: BLOOD SPECIMENOrdering Facility: [facility] Address: [address] [place] [address] Performed By: #### 5 7021-8 ####[facility] LABCLIA [id number] [place] [address] MCHC (RBC) [Mass/Vol] 33.6 g/dL Normal 30.5-36.0 [facility] Comment on above: Order Comment: Speci men Type: BLOOD SPECIMENOrdering Facility: [facility] Address: [address] [place] [address] Performed By: #### 5 7021-8 ####[facility] LABCLIA [id number] [place] [address] MCV (RBC) [Entitic vol] 105.9 fL High 80.0-100.0 [facility] Comment on above: Order Comment: Speci men Type: BLOOD SPECIMENOrdering Facility: [facility] Address: [address] [place] [address] Performed By: #### 5 7021-8 ####[facility] LABCLIA [id number] [place] [address] Monocytes (Bld) [#/Vol] 1.30 10*3/uL High <0.87 [facility] Comment on above: Order Comment: Speci men Type: BLOOD SPECIMENOrdering Facility: [facility] Address: [address] [place] [address] Performed By: #### 5 7021-8 ####[facility] LABCLIA [id number] [place] [address] Monocytes/100 WBC (Bld) 12.3 % Normal [facility] Comment on above: Order Comment: Speci men Type: BLOOD SPECIMENOrdering Facility: [facility] Address: [address] [place] [address] Performed By: #### 5 7021-8 ####[facility] LABCLIA [id number] [place] [address] Neutrophils (Bld) [#/Vol] 7.72 10*3/uL High 1.45-7.50 [facility] Comment on above: Order Comment: Speci men Type: BLOOD SPECIMENOrdering Facility: [facility] Address: [address] [place] [address] Performed By: #### 5 7021-8 ####[facility] LABCLIA [id number] [place] [address] Neutrophils/100 WBC (Bld) 72.6 % Normal [facility] Comment on above: Order Comment: Speci men Type: BLOOD SPECIMENOrdering Facility: [facility] Address: [address] [place] [address] Performed By: #### 5 7021-8 ####[facility] LABCLIA [id number] [place] [address] Nucleated RBC (Bld) [#/Vol] 10*3/uL Normal <0.01 [facility] Comment on above: Order Comment: Speci men Type: BLOOD SPECIMENOrdering Facility: [facility] Address: [address] [place] [address] Performed By: #### 5 7021-8 ####[facility] LABCLIA [id number] [place] [address] Nucleated RBC/100 WBC (Bld) [Ratio] 0.0 /100 WBC Normal [facility] Comment on above: Order Comment: Speci men Type: BLOOD SPECIMENOrdering Facility: [facility] Address: [address] [place] [address] Performed By: #### 5 7021-8 ####[facility] LABCLIA [id number] [place] [address] Platelet mean volume (Bld) [Entitic vol] 10.7 fL Normal 9.0-12.7 [facility] Comment on above: Order Comment: Speci men Type: BLOOD SPECIMENOrdering Facility: [facility] Address: [address] [place] [address] Performed By: #### 5 7021-8 ####[facility] LABCLIA [id number] [place] [address] Platelets (Bld) [#/Vol] 191 10*3/uL Normal 150-400 [facility] Comment on above: Order Comment: Speci men Type: BLOOD SPECIMENOrdering Facility: [facility] Address: [address] [place] [address] Performed By: #### 5 7021-8 ####[facility] [id number] [place] [address] RBC (Bld) [#/Vol] 3.54 10*6/uL Low 4.20-6.00 [facility] Comment on above: Order Comment: Speci men Type: BLOOD SPECIMENOrdering Facility: [facility] Address: [address] [place] [address] Performed By: #### 5 7021-8 ####[facility] LABIA [id number] [place] [address] WBC (Bld) [#/Vol] 10.61 10*3/uL Normal 3.70-11.00 [facility] Comment on above: Order Comment: Speci men Type: BLOOD SPECIMENOrdering Facility: [facility] Address: [address] [place] [address] Performed By: #### 5 7021-8 ####[facility] LABIA [id number] [place] [address] CNOVSPon 10-30-2023 CNOVSP Normal [facility] metabolic 2000 panelOrdered By: Frank Bender on 10-30-2023 Albumin [Mass/Vol] 3.7 g/dL Low 3.9 - 4.9 g/dL [facility] ALP [Catalytic activity/Vol] 89 U/L 38 - 113 U/L [facility] ALT [Catalytic activity/Vol] 15 U/L 10 - 54 U/L [facility] Anion gap [Moles/Vol] 6 mmol/L Low 9 - 18 mmol/L [facility] AST [Catalytic activity/Vol] 18 U/L 14 - 40 U/L [facility] Bilirubin [Mass/Vol] mg/dL Low 0.2 - 1 .3 mg/dL [facility] Calcium [Mass/Vol] 8.7 mg/dL 8.5 - 10. 2 mg/dL [facility] Chloride [Moles/Vol] 101 mmol/L 97 - 10 5 mmol/L [facility] CO2 [Moles/Vol] 29 mmol/L 22 - 30 mmol/L [facility] Creatinine [Mass/Vol] 1.56 mg/dL High 0.73 - 1.22 mg/dL [facility] GFR/1.73 sq M.predicted among non-blacks MDRD (S/P/Bld) [Vol rate/Area] 44 mL/min/{1.73_m2} Low - PINF [facility] Comment on above: Estimated Glomerular Filtration Rate (eGFR) is calculated using the 2020 CKD-EPI creatinine equation. This equation utilizes serum creatinine, sex, and age as parameters. The creatinine assay has traceable calibration to isotope dilution-mass spectrometry. Refer to KDIGO guidelines for clinical interpretation. In patients with unstable renal function, e.g. those with acute kidney injury, the eGFR may not accurately reflect actual GFR. Glucose [Mass/Vol] 105 mg/dL High 74 - 99 mg/dL [facility] Comment on above: The [place] Di[employer] Association (ADA) provides guidance for cutoff values for fasting glucose and random glucose. The ADA defines fasting as no caloric intake for at least 8 hours. Fasting plasma glucose results between 100 to 125 mg/dL indicate increased risk for diabetes (prediabetes). Fasting plasma glucose results greater than or equal to 126 mg/dL meet the criteria for diagnosis of diabetes. In the absence of unequivocal hyperglycemia, results should be confirmed by repeat testing. In a patient with classic symptoms of hyperglycemia or hyperglycemic crisis, random plasma glucose results greater than or equal to 200 mg/dL meet the criteria for diagnosis of diabetes. Reference: Standards of Medical Care in Diabetes 2016, [place] [employer]. Diabetes Care. 2016.39(Suppl 1). Interpretation and review of laboratory results Abnormal [facility] Potassium [Moles/Vol] 4.4 mmol/L 3.7 - 5.1 mmol/L [facility] Protein [Mass/Vol] 6.3 g/dL 6.3 - 8.0 g/dL [facility] Sodium [Moles/Vol] 136 mmol/L 136 - 144 mmol/L [facility] Urea nitrogen [Mass/Vol] 25 mg/dL High 9 - 24 mg/dL [facility] Comprehensive metabolic 2000 panelon 10-30-2023 Albumin [Mass/Vol] 3.7 g/dL Low 3.9-4.9 [facility] Comment on above: Order Comment: Speci men Type: BLOOD SPECIMENOrdering Facility: [facility] Address: [address] [place] [address] Performed By: #### 2 4323-8 ####[facility] LABCLIA [id number] [place] [address] ALP [Catalytic activity/Vol] 89 U/L Normal 38-113 [facility] Comment on above: Order Comment: Speci men Type: BLOOD SPECIMENOrdering Facility: [facility] Address: [address] [place] [address] Performed By: #### 2 4323-8 ####[facility] LABCLIA [id number] [place] [address] ALT [Catalytic activity/Vol] 15 U/L Normal 10-54 [facility] Comment on above: Order Comment: Speci men Type: BLOOD SPECIMENOrdering Facility: [facility] Address: [address] [place] [address] Performed By: #### 2 4323-8 ####[facility] LABCLIA [id number] [place] [address] Anion gap [Moles/Vol] 6 mmol/L Low 9-18 [facility] Comment on above: Order Comment: Speci men Type: BLOOD SPECIMENOrdering Facility: [facility] Address: [address] [place] [address] Performed By: #### 2 4323-8 ####[facility] LABCLIA [id number] [place] [address] AST [Catalytic activity/Vol] 18 U/L Normal 14-40 [facility] Comment on above: Order Comment: Speci men Type: BLOOD SPECIMENOrdering Facility: [facility] Address: [address] [place] [address] Performed By: #### 2 4323-8 ####[facility] LABCLIA [id number] [place] [address] Bilirubin [Mass/Vol] mg/dL Low 0.2-1.3 [facility] Comment on above: Order Comment: Speci men Type: BLOOD SPECIMENOrdering Facility: [facility] Address: [address] [place] [address] Performed By: #### 2 4323-8 ####[facility] LABCLIA [id number] [place] [address] Calcium [Mass/Vol] 8.7 mg/dL Normal 8.5-10.2 [facility] Comment on above: Order Comment: Speci men Type: BLOOD SPECIMENOrdering Facility: [facility] Address: [address] [place] [address] Performed By: #### 2 4323-8 ####[facility] LABCLIA [id number] [place] [address] Chloride [Moles/Vol] 101 mmol/L Normal 97-105 [facility] Comment on above: Order Comment: Speci men Type: BLOOD SPECIMENOrdering Facility: [facility] Address: [address] [place] [address] Performed By: #### 2 4323-8 ####[facility] LABCLIA [id number] [place] [address] CO2 [Moles/Vol] 29 mmol/L Normal 22-30 [facility] Comment on above: Order Comment: Speci men Type: BLOOD SPECIMENOrdering Facility: [facility] Address: [address] [id number] Performed By: #### 2 4323-8 ####[facility] LABCLIA [id number] [place] [address] Creatinine [Mass/Vol] 1.56 mg/dL High 0.73-1.22 [facility] Comment on above: Order Comment: Speci men Type: BLOOD SPECIMENOrdering Facility: [facility] Address: [address] [place] [address] Performed By: #### 2 4323-8 ####[facility] LABCLIA [id number] [place] [address] Creatinine and Glomerular filtration rate.predicted panel (S/P/Bld) 44 mL/min/1.73m??? Low >=60 [facility] Comment on above: Order Comment: Speci men Type: BLOOD SPECIMENOrdering Facility: [facility] Address: [address] [place] [address] Result Comment: Janae mated Glomerular Filtration Rate (eGFR) is calculated using the 2020 CKD-EPI creatinine equation. This equation utilizes serum creatinine, sex, and age as parameters. The creatinine assay has traceable calibration to isotope dilution-mass spectrometry. Refer to KDIGO guidelines for clinical interpretation. In patients with unstable renal function, e.g. those with acute kidney injury, the eGFR may not accurately reflect actual GFR. Performed By: #### 2 4323-8 ####[facility] LABCLIA [id number] [place] [address] Glucose [Mass/Vol] 105 mg/dL High 74-99 [facility] Comment on above: Order Comment: Speci men Type: BLOOD SPECIMENOrdering Facility: [facility] Address: [address] [place], [place] [id number] Result Comment: The [place] Diabetes Association (ADA) provides guidance for cutoff values for fasting glucose and random glucose. The ADA defines fasting as no caloric intake for at least 8 hours. Fasting plasma glucose results between 100 to 125 mg/dL indicate increased risk for diabetes (prediabetes).Fasting plasma glucose results greater than or equal to 126 mg/dL meet the criteria for diagnosis of diabetes. In the absence of unequivocal hyperglycemia, results should be confirmed by repeat testing. In a patient with classic symptoms of hyperglycemia or hyperglycemic crisis, random plasma glucose results greater than or equal to 200 mg/dL meet the criteria for diagnosis of diabetes.Reference: Standards of Medical Care in Diabetes 2016, [place] [employer]. Diabetes Care. 2016.39(Suppl 1). Performed By: #### 2 4323-8 ####[facility] LABCLIA [id number] [place] [address] Potassium [Moles/Vol] 4.4 mmol/L Normal 3.7-5.1 [facility] Comment on above: Order Comment: Speci men Type: BLOOD SPECIMENOrdering Facility: [facility] Address: [address] [place] [address] Performed By: #### 2 4323-8 ####[facility] LABCLIA [id number] [place] [address] Protein [Mass/Vol] 6.3 g/dL Normal 6.3-8.0 [facility] Comment on above: Order Comment: Speci men Type: BLOOD SPECIMENOrdering Facility: [facility] Address: [address] [place] [address] Performed By: #### 2 4323-8 ####[facility] LABCLIA [id number] [place] [address] Sodium [Moles/Vol] 136 mmol/L Normal 136-144 [facility] Comment on above: Order Comment: Speci men Type: BLOOD SPECIMENOrdering Facility: [facility] Address: [address] [place] [address] Performed By: #### 2 4323-8 ####[facility] LABCLIA [id number] [place] [address] Urea nitrogen [Mass/Vol] 25 mg/dL High 9-24 [facility] Comment on above: Order Comment: Speci men Type: BLOOD SPECIMENOrdering Facility: [facility] Address: [address] [place] [address] Performed By: #### 2 4323-8 ####[facility] LABCLIA [id number] [place] [address] Eosinophils/100 WBC Auto (Bl d)on 10-30-2023 Eosinophils/100 WBC (Bld) 2.0 % [facility] Erythrocyte distribution wid th Auto (RBC) [Ratio]on 10-30-2023 Erythrocyte distribution width (RBC) [Ratio] 12.5 % 11.5-15.0 [facility] Hematocrit Auto (Bld) [Volum e fraction]on 10-30-2023 Hematocrit (Bld) [Volume fraction] 37.5 % Low 39.0-51.0 [facility] Hemoglobin [Mass/volume] in Bloodon 10-30-2023 Hemoglobin (Bld) [Mass/Vol] 12.6 g/dL Low 13.0-17.0 [facility] IMMUNOFIXATION SCREEN, SERUM on 10-30-2023 INTERPRETATION (MPA) Atypical restricted bands are present in the IgG and lambda regions. Consistent with IgG lambda monoclonal gammopathy. Normal [facility] Comment on above: Order Comment: Speci men Type: BLOOD SPECIMENOrdering Facility: [facility] Address: [address] [place] [address] Performed By: #### I FES ####[facility] LABCLIA [id number] [place] [address] [place] MPA RESULT M protein is present. Abnormal No M protein is identified. [facility] Comment on above: Order Comment: Speci men Type: BLOOD SPECIMENOrdering Facility: [facility] Address: [address] [place] [address] Performed By: #### I FES ####[facility] LABCLIA [id number] [place] [address] [place] STAFF REVIEW (MPA) Reviewed by Malou Wahl MD [facility] Comment on above: Order Comment: Speci men Type: BLOOD SPECIMENOrdering Facility: [facility] Address: [address] [place] [address] Performed By: #### I FESC ####[facility] LABCLIA [id number] [place] [address] [place] IMMUNOGLOBULINS,IGG,IGA,IGMo n 10-30-2023 IgA [Mass/Vol] 145 mg/dL Normal 70-400 [facility] Comment on above: Order Comment: Speci men Type: BLOOD SPECIMENOrdering Facility: [facility] Address: [address] [place] [address] Performed By: #### S ERIMM ####[facility] LABCLIA [id number] [place] [address] [place] IgG [Mass/Vol] 835 mg/dL Normal 700-1600 [facility] Comment on above: Order Comment: Speci men Type: BLOOD SPECIMENOrdering Facility: [facility] Address: [address] [place] [address] Performed By: #### S ERIMM ####[facility] LABCLIA [id number] [place] [address] [place] IgM [Mass/Vol] 16 mg/dL Low 40-230 [facility] Comment on above: Order Comment: Speci men Type: BLOOD SPECIMENOrdering Facility: [facility] Address: [address] [place] [address] Performed By: #### S ERIMM ####[facility] LABCLIA [id number] [place] [address] [place] IgA [Mass/volume] in Serum o r Plasmaon 10-30-2023 IgA [Mass/Vol] 145 mg/dL 70-400 [facility] IgG [Mass/volume] in Serum o r Plasmaon 10-30-2023 IgG [Mass/Vol] 835 mg/dL 700-1600 [facility] IgM [Mass/volume] in Serum o r Plasmaon 10-30-2023 IgM [Mass/Vol] 16 mg/dL Low 40-230 [facility] Immunoglobulin light chains. kappa.free [Mass/volume] in Serumon 10-30-2023 Immunoglobulin light chains.kappa.free (S) [Mass/Vol] 14.8 mg/L 3.3-19.4 [facility] Comment on above: Rarely, increased se rum free light chains levels may not be detected or accurately quantified due to prozone phenomenon or in high viscosity samples using this immunoturbidimetric assay. Correlation with other laboratory results and clinical findings is recommended. The [place] Free Light Chain was performed using the Binding Site Optilite immunoturbidimetric method. Result obtained with different assay methods or kits cannot be used interchangeably. Immunoglobulin light chains. kappa.free/Immunoglobulin light chains.lambda.free [Fransisca 10-30-2023 Immunoglobulin light chains.kappa.free/Immuno globulin light chains.lambda.free (S) [Mass ratio] 1.16 0.26-1.65 [facility] Immunoglobulin light chains. lambda.free [Mass/volume] in Serum or Plasmaon 10-30-2023 Immunoglobulin light chains.lambda.free [Mass/Vol] 12.8 mg/L 5.7-26.3 [facility] Comment on above: Rarely, increased se rum free light chains levels may not be detected or accurately quantified due to prozone phenomenon or in high viscosity samples using this immunoturbidimetric assay. Correlation with other laboratory results and clinical findings is recommended. The Lambda Free Light Chain was performed using the Binding Site Optilite immunoturbidimetric method. Result obtained with different assay methods or kits cannot be used interchangeably. KAPPA/HERNANDEZ,FREE,SERon 2023 Immunoglobulin light chains.kappa.free (S) [Mass/Vol] 14.8 mg/L Normal 3.3-19.4 [facility] Comment on above: Order Comment: Speci men Type: BLOOD SPECIMENOrdering Facility: [facility] Address: [address] [place] [address] Result Comment: Rare ly, increased serum free light chains levels may not be detected or accurately quantified due to prozone phenomenon or in high viscosity samples using this immunoturbidimetric assay. Correlation with other laboratory results and clinical findings is recommended.The [place] Free Light Chain was performed using the Binding Site Optilite immunoturbidimetric method. Result obtained with different assay methods or kits cannot be used interchangeably. Performed By: #### K LFRS ####[facility] LABCLIA [id number] [place] [address] [place] Immunoglobulin light chains.kappa/Immunoglobu natanael light chains.lambda (S) [Mass ratio] 1.16 Normal 0.26-1.65 [facility] Comment on above: Order Comment: Speci men Type: BLOOD SPECIMENOrdering Facility: [facility] Address: [address] [place] [address] Performed By: #### K LFRS ####[facility] LABCLIA [id number] [place] [address] [place] Immunoglobulin light chains.lambda.free [Mass/Vol] 12.8 mg/L Normal 5.7-26.3 [facility] Comment on above: Order Comment: Speci men Type: BLOOD SPECIMENOrdering Facility: [facility] Address: [address] [place] [address] Result Comment: Rare ly, increased serum free light chains levels may not be detected or accurately quantified due to prozone phenomenon or in high viscosity samples using this immunoturbidimetric assay. Correlation with other laboratory results and clinical findings is recommended.The Lambda Free Light Chain was performed using the Binding Site Optilite immunoturbidimetric method. Result obtained with different assay methods or kits cannot be used interchangeably. Performed By: #### K LFRS ####[facility] LABCLIA [id number] [place] [address] [place] Laboratory - Chemistry and C hemistry - challengeon 10-30-2023 Albumin [Mass/Vol] 3.7 g/dL Low 3.9-4.9 [facility] ALP [Catalytic activity/Vol] 89 U/L 38-113 [facility] ALT [Catalytic activity/Vol] 15 U/L 10-54 [facility] AST [Catalytic activity/Vol] 18 U/L 14-40 [facility] Bilirubin [Mass/Vol] mg/dL Low 0.2-1.3 [facility] Calcium [Mass/Vol] 8.7 mg/dL 8.5-10.2 [facility] Chloride [Moles/Vol] 101 mmol/L 97-105 [facility] CO2 [Moles/Vol] 29 mmol/L 22-30 [facility] Creatinine [Mass/Vol] 1.56 mg/dL High 0.73-1.22 [facility] Glucose [Mass/Vol] 105 mg/dL High 74-99 [facility] Comment on above: The [place] Diab[employer] s Association (ADA) provides guidance for cutoff values for fasting glucose and random glucose. The ADA defines fasting as no caloric intake for at least 8 hours. Fasting plasma glucose results between 100 to 125 mg/dL indicate increased risk for diabetes (prediabetes).Fasting plasma glucose results greater than or equal to 126 mg/dL meet the criteria for diagnosis of diabetes. In the absence of unequivocal hyperglycemia, results should be confirmed by repeat testing. In a patient with classic symptoms of hyperglycemia or hyperglycemic crisis, random plasma glucose results greater than or equal to 200 mg/dL meet the criteria for diagnosis of diabetes.Reference: Standards of Medical Care in Diabetes 2016, [place] [employer]. Diabetes Care. 2016.39(Suppl 1). Potassium [Moles/Vol] 4.4 mmol/L 3.7-5.1 [facility] Protein [Mass/Vol] 0.26 g/dL High <=0.00 [facility] Sodium [Moles/Vol] 136 mmol/L 136-144 [facility] Urea nitrogen [Mass/Vol] 25 mg/dL High 9-24 [facility] Laboratory - Hematology and Cell countson 10-30-2023 Eosinophils (Bld) [#/Vol] 0.21 10*3/uL <0.46 [facility] Immature granulocytes (Bld) [#/Vol] 0.05 10*3/uL <0.10 [facility] Immature granulocytes/100 WBC (Bld) 0.5 % [facility] Leukocytes [#/volume] correc tony for nucleated erythrocytes in Blood by Automated counon 10-30-2023 WBC corrected for nucl RBC Auto (Bld) [#/Vol] 10.61 k/uL 3.70-11.00 [facility] Lymphocytes Auto (Bld) [#/Vo l]on 10-30-2023 Lymphocytes (Bld) [#/Vol] 1.28 10*3/uL 1.00-4.00 [facility] Lymphocytes/100 WBC Auto (Bl d)on 10-30-2023 Lymphocytes/100 WBC (Bld) 12.1 % [facility] MCH Auto (RBC) [Entitic mass ]on 10-30-2023 MCH (RBC) [Entitic mass] 35.6 pg High 26.0-34.0 [facility] MCHC Auto (RBC) [Mass/Vol]on 10-30-2023 MCHC (RBC) [Mass/Vol] 33.6 g/dL 30.5-36.0 [facility] MCV Auto (RBC) [Entitic vol] on 10-30-2023 MCV (RBC) [Entitic vol] 105.9 fL High 80.0-100.0 [facility] Monocytes Auto (Bld) [#/Vol] on 10-30-2023 Monocytes (Bld) [#/Vol] 1.30 10*3/uL High <0.87 [facility] Monocytes/100 WBC Auto (Bld) on 10-30-2023 Monocytes/100 WBC (Bld) 12.3 % [facility] Neutrophils Auto (Bld) [#/Vo l]on 10-30-2023 Neutrophils (Bld) [#/Vol] 7.72 10*3/uL High 1.45-7.50 [facility] Neutrophils/100 WBC Auto (Bl d)on 10-30-2023 Neutrophils/100 WBC (Bld) 72.6 % [facility] No Panel Informationon 10-29 Estimated GFR (CKD-EPI) 44 mL/min/1.73m??? Low >=60 [facility] Comment on above: Estimated Glomerular Filtration Rate (eGFR) is calculated using the 2020 CKD-EPI creatinine equation. This equation utilizes serum creatinine, sex, and age as parameters. The creatinine assay has traceable calibration to isotope dilution-mass spectrometry. Refer to KDIGO guidelines for clinical interpretation. In patients with unstable renal function, e.g. those with acute kidney injury, the eGFR may not accurately reflect actual GFR. Immunofixation Interpretation [facility] Leuk/Lymph Sign Pathologist (Misc) Reviewed by Malou Wahl MD [facility] Miscellaneous Test 6 Gamma Fraction 1 [facility] Miscellaneous Test Comment Reviewed by Malou Wahl MD [facility] Protein Electrophoresis Interpret See comment [facility] Comment on above: See separate immunof ixation report for characterization of monoclonal gammopathy.M protein is present on the background of a polyclonal immunoglobulin population. Quantitation of the M protein may overestimate the amount of M protein present. Protein Electrophoresis Note An M protein is identified on protein electrophoresis. Abnormal No definitive M protein is identified on protein electrophor esis. [facility] Serum Immunofixation M protein is present. Abnormal No M protein is identified. [facility] Nucleated RBC Auto (Bld) [#/ Vol]on 10-30-2023 Nucleated RBC (Bld) [#/Vol] 10*3/uL <0.01 [facility] Nucleated erythrocytes [Pres ence] in Blood by Automated counton 10-30-2023 Nucleated RBC Auto Ql (Bld) 0.0 /100{WBC} [facility] PROTEIN ELECTROPHORESIS SERU M (P)on 10-30-2023 Albumin [Mass/Vol] 3.42 g/dL Low 3.43-5.41 [facility] Comment on above: Order Comment: Speci men Type: BLOOD SPECIMENOrdering Facility: [facility] Address: [address] [place] [address] Performed By: #### L [id number] ####[facility] LABCLIA [id number] [place] [address] [place] Alpha 1 globulin Elph [Mass/Vol] 0.26 g/dL Normal 0.18-0.43 [facility] Comment on above: Order Comment: Speci men Type: BLOOD SPECIMENOrdering Facility: [facility] Address: [address] [id number] Performed By: #### L [id number] ####[facility] LABIA [id number] [place] [address] [place] Alpha 2 globulin Elph [Mass/Vol] 0.83 g/dL Normal 0.42-0.98 [facility] Comment on above: Order Comment: Speci men Type: BLOOD SPECIMENOrdering Facility: [facility] Address: [address] [place] [address] Performed By: #### L [id number] ####[facility] LABIA [id number] [place] [address] [place] Beta globulin Elph [Mass/Vol] 0.70 g/dL Normal 0.61-1.17 [facility] Comment on above: Order Comment: Speci men Type: BLOOD SPECIMENOrdering Facility: [facility] Address: [address] [place] [address] Performed By: #### L [id number] ####[facility] [id number] [place] [address] [place] Gamma globulin Elph [Mass/Vol] 0.69 g/dL Normal 0.53-1.51 [facility] Comment on above: Order Comment: Speci men Type: BLOOD SPECIMENOrdering Facility: [facility] Address: [address] [place] [address] Performed By: #### L [id number] ####[facility] LABIA [id number] [place] [address] [place] INTERPRETATION COMMENT FOR PROTEIN ELECTROPHORESIS Normal [facility] Comment on above: Order Comment: Speci men Type: BLOOD SPECIMENOrdering Facility: [facility] Address: [address] [place] [address] Result Comment: See separate immunofixation report for characterization of monoclonal gammopathy.M protein is present on the background of a polyclonal immunoglobulin population. Quantitation of the M protein may overestimate the amount of M protein present. Performed By: #### L [id number] ####[facility] LABCLIA [id number] [address] [place] M-PROTEIN LOCATION Gamma Fraction 1 Normal [facility] Comment on above: Order Comment: Speci men Type: BLOOD SPECIMENOrdering Facility: [facility] Address: [address] [place] [address] Performed By: #### L [id number] ####[facility] LABIA [id number] [address] [place] Protein Fractions [Interp] An M protein is identified on protein electrophoresis. Abnormal No definitive M protein is identified on protein electrophor esis. [facility] Comment on above: Order Comment: Speci men Type: BLOOD SPECIMENOrdering Facility: [facility] Address: [address] [place] [address] Performed By: #### L [id number] ####[facility] LABIA [id number] [address] [place] Protein.monoclonal Elph [Mass/Vol] 0.26 g/dL High <=0.00 [facility] Comment on above: Order Comment: Speci men Type: BLOOD SPECIMENOrdering Facility: [facility] Address: [address] [place] [address] Performed By: #### L [id number] ####[facility] LABIA [id number] [place] [address] [place] SPE STAFF REVIEW Reviewed by Malou Wahl MD Normal [facility] Comment on above: Order Comment: Speci men Type: BLOOD SPECIMENOrdering Facility: [facility] Address: [address] [place] [address] Performed By: #### L [id number] ####[facility] LABIA [id number] [place] [address] [place] Platelet mean volume Auto (B ld) [Entitic vol]on 10-30-2023 Platelet mean volume (Bld) [Entitic vol] 10.7 fL 9.0-12.7 [facility] Platelets Auto (Bld) [#/Vol] on 10-30-2023 Platelets (Bld) [#/Vol] 191 10*3/uL 150-400 [facility] Prot SerPl-mCncon 10-30-2023 Protein [Mass/Vol] 5.9 g/dL Low 6.3-8.0 [facility] Comment on above: Order Comment: Speci men Type: BLOOD SPECIMENOrdering Facility: [facility] Address: [address] [place] [address] Performed By: #### 2 885-2 ####[facility] LABCLIA [id number] [facility] [id number] [address] [place] Protein [Mass/volume] in Ser um or Plasmaon 10-30-2023 Protein [Mass/Vol] 5.9 g/dL Low 6.3-8.0 [facility] RBC Auto (Bld) [#/Vol]on RBC (Bld) [#/Vol] 3.54 10*6/uL Low 4.20-6.00 [facility] Serum or plasma alpha 1 glob ulin measurement by electrophoresis (mass/volume)on 10-30-2023 Alpha 1 globulin Elph [Mass/Vol] 0.26 g/dL 0.18-0.43 [facility] Serum or plasma alpha 2 glob ulin measurement by electrophoresis (mass/volume)on 10-30-2023 Alpha 2 globulin Elph [Mass/Vol] 0.83 g/dL 0.42-0.98 [facility] Serum or plasma anion gap de terminationon 10-30-2023 Anion gap [Moles/Vol] 6 mmol/L Low 9-18 [facility] Serum or plasma beta globuli n measurement by electrophoresis (mass/volume)on 10-30-2023 Beta globulin Elph [Mass/Vol] 0.70 g/dL 0.61-1.17 [facility] Serum or plasma gamma globul in measurement by electrophoresis (mass/volume)on 10-30-2023 Gamma globulin Elph [Mass/Vol] 0.69 g/dL 0.53-1.51 [facility] CNPNon 10-15-2023 CNPN Normal [facility] Radiation Oncology Follow-Up on 10-11-2023 Radiation Oncology Follow-Up DIAGNOSIS: Primary C67.9 - Malignant neoplasm of bladder, unspecified, Diagnosed 12/21/2022 (Active) 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 As you know, he completed radiation therapy to the bladder last January. He returns to our clinic today still having urinary frequency, though he seems to have found a better rhythm with regards to managing his urinary habits. His energy level is poor, and he admits that he fell last night. He did not hit his head or suffer any significant trauma, thankfully. His appetite has been good. He has back and rib pain which is about 4/10, and that is unchanged. His most recent PSA measured 8.4 nanograms per mL, which was down from 12.5 nanograms per mL. He continues to receive Velcade and Dexamethasone. On physical examination, the patient is well nourished and in no acute distress. His weight has remained stable. The patient answers questions appropriately and without any difficulty articulating speech. There is no adenopathy in the head or neck region. Lungs are clear, though breath sounds are somewhat distant. Heart exam reveals regular rate and rhythm without murmurs, rubs, or gallop. Abdominal exam is benign. Bowel sounds are within normal limits. The neurologic exam is non-focal. Therefore, my impression is that Mr. Salgado seems to have reached a reasonable, steady state with regards to urinary habits after radiation therapy to the bladder. He mentioned that you did perform a scope recently, and he seems to have been happy with the report he was given after that procedure. He mentioned to me that he is scheduled to be seen in the [facility] coming up on October 29. Otherwise, he does not have any other issues to report. Therefore, the plan is for this pleasant gentleman to return again to our clinic only as needed. He has my office number and cell phone number if he needs to reach me. We went over the triggers that should lead him to consider calling us. I also talked about lingering subacute and intermediate side effect risks. We certainly appreciate the opportunity to have taken part in this pleasant gentleman?s care, and I was happy to see him today during a meeting which took about 14 minutes. Sincerely, Abiodun Nugent MD, MS Radiation Oncologist CC: Levy Thomas MD [facility] CNPNon 10-08-2023 CNPN Normal [facility] CNNURSEon 10-04-2023 CNNURSE Normal [facility] CBC W Auto Differential pane l (Bld)on 10-02-2023 Basophils (Bld) [#/Vol] 0.00 10*3/uL Normal <0.11 [facility] Comment on above: Order Comment: Speci men Type: BLOOD SPECIMENOrdering Facility: [facility] Address: [address] [place] [address] Performed By: #### 5 7021-8 ####[facility] LABCLIA [id number] [place], [place] [address]WA[facility] LABCL[facility] [id number] [place] [address] [place] Basophils/100 WBC (Bld) 0.0 % Normal [facility] Comment on above: Order Comment: Speci men Type: BLOOD SPECIMENOrdering Facility: [facility] Address: [address] [place] [address] Performed By: #### 5 7021-8 ####[facility] LABCLIA [id number] [place], [place] [address]CEVPOFTWTMAR[facility]ETTA [facility] LABCLIA [id number] [id number] [address] [place] Differential cell count method Nom (Bld) Manual Normal [facility] Comment on above: Order Comment: Speci men Type: BLOOD SPECIMENOrdering Facility: [facility] Address: [address] [place] [address] Performed By: #### 5 7021-8 ####[facility] LABCLIA [id number] [address] LABCLIA [id number] [place] [address] [place] Eosinophils (Bld) [#/Vol] 0.20 10*3/uL Normal <0.46 [facility] Comment on above: Order Comment: Speci men Type: BLOOD SPECIMENOrdering Facility: [facility] Address: [address] [place] [address] Performed By: #### 5 7021-8 ####[facility] LABCLIA [id number] [address] LABCLIA [id number] [place] [address] [place] Eosinophils/100 WBC (Bld) 1.8 % Normal [facility] Comment on above: Order Comment: Speci men Type: BLOOD SPECIMENOrdering Facility: [facility] Address: [address] [place] [address] Performed By: #### 5 7021-8 ####[facility] LABCLIA [id number] [address] LABCLIA [id number] [place] [address] [place] Erythrocyte distribution width (RBC) [Ratio] 12.2 % Normal 11.5-15.0 [facility] Comment on above: Order Comment: Speci men Type: BLOOD SPECIMENOrdering Facility: [facility] Address: [address] [place] [address] Performed By: #### 5 7021-8 ####[facility] LABCLIA [id number] [place] [address] LABCLIA [id number] [place] [address] [place] Hematocrit (Bld) [Volume fraction] 36.4 % Low 39.0-51.0 [facility] Comment on above: Order Comment: Speci men Type: BLOOD SPECIMENOrdering Facility: [facility] Address: [address] [place] [address] Performed By: #### 5 7021-8 ####[facility] LABCLIA [id number] [address] LABCLIA [id number] [place] [address] [place] Hemoglobin (Bld) [Mass/Vol] 12.1 g/dL Low 13.0-17.0 [facility] Comment on above: Order Comment: Speci men Type: BLOOD SPECIMENOrdering Facility: [facility] Address: [address] [place] [address] Performed By: #### 5 7021-8 ####[facility] LABCLIA [id number] [address] LABCLIA [id number] [place] [address] [place] Lymphocytes (Bld) [#/Vol] 1.48 10*3/uL Normal 1.00-4.00 [facility] Comment on above: Order Comment: Speci men Type: BLOOD SPECIMENOrdering Facility: [facility] Address: [address] [place] [address] Performed By: #### 5 7021-8 ####[facility] LABCLIA [id number] [address] LABCLIA [id number] [place] [address] [place] Lymphocytes/100 WBC (Bld) 13.4 % Normal [facility] Comment on above: Order Comment: Speci men Type: BLOOD SPECIMENOrdering Facility: [facility] Address: [address] [place] [address] Performed By: #### 5 7021-8 ####[facility] LABCLIA [id number] [address] LABCLIA [id number] [place] [address] [place] MCH (RBC) [Entitic mass] 37.1 pg High 26.0-34.0 [facility] Comment on above: Order Comment: Speci men Type: BLOOD SPECIMENOrdering Facility: [facility] Address: [address] [place] [address] Performed By: #### 5 7021-8 ####[facility] LABCLIA [id number] [address] LABCLIA [id number] [place] [address] [place] MCHC (RBC) [Mass/Vol] 33.2 g/dL Normal 30.5-36.0 [facility] Comment on above: Order Comment: Speci men Type: BLOOD SPECIMENOrdering Facility: [facility] Address: [address] [place] [address] Performed By: #### 5 7021-8 ####[facility] LABCLIA [id number] [address] LABCLIA [id number] [place] [address] [place] MCV (RBC) [Entitic vol] 111.7 fL High 80.0-100.0 [facility] Comment on above: Order Comment: Speci men Type: BLOOD SPECIMENOrdering Facility: [facility] Address: [address] [place] [address] Performed By: #### 5 7021-8 ####[facility] LABCLIA [id number] [place] [address] LABCLIA [id number] [place] [address] [place] Monocytes (Bld) [#/Vol] 1.08 10*3/uL High <0.87 [facility] Comment on above: Order Comment: Speci men Type: BLOOD SPECIMENOrdering Facility: [facility] Address: [address] [place] [address] Performed By: #### 5 7021-8 ####[facility] LABCLIA [id number] [address] LABCLIA [id number] [place] [address] [place] Monocytes/100 WBC (Bld) 9.8 % Normal [facility] Comment on above: Order Comment: Speci men Type: BLOOD SPECIMENOrdering Facility: [facility] Address: [address] [place] [address] Performed By: #### 5 7021-8 ####[facility] LABCLIA [id number] [place] [address] LABCLIA [id number] [place] [address] [place] Neutrophils (Bld) [#/Vol] 8.30 10*3/uL High 1.45-7.50 [facility] Comment on above: Order Comment: Speci men Type: BLOOD SPECIMENOrdering Facility: [facility] Address: [address] [place] [address] Performed By: #### 5 7021-8 ####[facility] LABCLIA [id number] [address] LABCLIA [id number] [place] [address] [place] Neutrophils/100 WBC (Bld) 75.0 % Normal [facility] Comment on above: Order Comment: Speci men Type: BLOOD SPECIMENOrdering Facility: [facility] Address: [address] [place] [address] Performed By: #### 5 7021-8 ####[facility] LABCLIA [id number] [address] LABCLIA [id number] [place] [address] [place] Nucleated RBC (Bld) [#/Vol] 10*3/uL Normal <0.01 [facility] Comment on above: Order Comment: Speci men Type: BLOOD SPECIMENOrdering Facility: [facility] Address: [address] [place] [address] Performed By: #### 5 7021-8 ####[facility] LABCLIA [id number] [address] LABCLIA [id number] [place] [address] [place] Nucleated RBC/100 WBC (Bld) [Ratio] 0.0 /100 WBC Normal [facility] Comment on above: Order Comment: Speci men Type: BLOOD SPECIMENOrdering Facility: [facility] Address: [address] [place] [address] Performed By: #### 5 7021-8 ####[facility] LABCLIA [id number] [address] LABCLIA [id number] [place] [address] [place] Platelet mean volume (Bld) [Entitic vol] 9.5 fL Normal 9.0-12.7 [facility] Comment on above: Order Comment: Speci men Type: BLOOD SPECIMENOrdering Facility: [facility] Address: [address] [place] [address] Performed By: #### 5 7021-8 ####[facility] LABCLIA [id number] [place] [address] LABCLIA [id number] [place] [address] [place] Platelets (Bld) [#/Vol] 322 10*3/uL Normal 150-400 [facility] Comment on above: Order Comment: Speci men Type: BLOOD SPECIMENOrdering Facility: [facility] Address: [address] [place] [address] Performed By: #### 5 7021-8 ####[facility] LABCLIA [id number] [address] LABCLIA [id number] [place] [address] [place] Platelets Estimate (Bld) [#/Vol] Adequate Normal [facility] Comment on above: Order Comment: Speci men Type: BLOOD SPECIMENOrdering Facility: [facility] Address: [address] [place] [address] Performed By: #### 5 7021-8 ####[facility] LABCLIA [id number] [address] LABCLIA [id number] [place] [address] [place] Polychromasia LM Ql (Bld) Slight Normal [facility] Comment on above: Order Comment: Speci men Type: BLOOD SPECIMENOrdering Facility: [facility] Address: [address] [place] [address] Performed By: #### 5 7021-8 ####[facility] LABCLIA [id number] [address] LABCLIA [id number] [place] [address] [place] RBC (Bld) [#/Vol] 3.26 10*6/uL Low 4.20-6.00 [facility] Comment on above: Order Comment: Speci men Type: BLOOD SPECIMENOrdering Facility: [facility] Address: [address] [place] [address] Performed By: #### 5 7021-8 ####[facility] LABCLIA [id number] [place] [address] LABCLIA [id number] [place] [address] [place] RED CELL MORPH Reviewed: see result s of individual morphologies Normal [facility] Comment on above: Order Comment: Speci men Type: BLOOD SPECIMENOrdering Facility: [facility] Address: [address] [place] [address] Performed By: #### 5 7021-8 ####[facility] LABCLIA [id number] [address] LABCLIA [id number] [place] [address] [place] WBC (Bld) [#/Vol] 11.07 10*3/uL High 3.70-11.00 [facility] Comment on above: Order Comment: Speci men Type: BLOOD SPECIMENOrdering Facility: [facility] Address: [address] [place] [address] Performed By: #### 5 7021-8 ####[facility] LABCLIA [id number] [place] [address] LABCLIA [id number] [place] [address] [place] CNOVSPon 10-02-2023 CNOVSP Normal [facility] CNPNon 10-02-2023 CNPN Normal [facility] Comprehensive metabolic 2000 panelon 10-02-2023 Albumin [Mass/Vol] 3.8 g/dL Low 3.9 - 4.9 g/dL [facility] ALP [Catalytic activity/Vol] 112 U/L 38 - 113 U/L [facility] ALT [Catalytic activity/Vol] 20 U/L 10 - 54 U/L [facility] Anion gap [Moles/Vol] 10 mmol/L 9 - 18 mmol/L [facility] AST [Catalytic activity/Vol] 26 U/L 14 - 40 U/L [facility] Bilirubin [Mass/Vol] Low 0.2 - 1 .3 mg/dL [facility] Calcium [Mass/Vol] 9.9 mg/dL 8.5 - 10. 2 mg/dL [facility] Chloride [Moles/Vol] 101 mmol/L 97 - 10 5 mmol/L [facility] CO2 [Moles/Vol] 26 mmol/L 22 - 30 mmol/L [facility] Creatinine [Mass/Vol] 1.90 mg/dL High 0.73 - 1.22 mg/dL [facility] Estimated Glomerular Filtration Rate 35 mL/min/1.73m Low >=60 mL/min/1.73 m [facility] Glucose [Mass/Vol] 153 mg/dL High 74 - 99 mg/dL [facility] Potassium [Moles/Vol] 4.7 mmol/L 3.7 - 5.1 mmol/L [facility] Protein [Mass/Vol] 6.4 g/dL 6.3 - 8.0 g/dL [facility] Sodium [Moles/Vol] 137 mmol/L 136 - 144 mmol/L [facility] Urea nitrogen [Mass/Vol] 25 mg/dL High 9 - 24 mg/dL [facility] Albumin [Mass/Vol] 3.8 g/dL Low 3.9-4.9 [facility] Comment on above: Order Comment: Speci men Type: BLOOD SPECIMENOrdering Facility: [facility] Address: [address] [place] [address] Performed By: #### 2 4323-8 ####[facility] LABCLIA [id number] [place] [address] ALP [Catalytic activity/Vol] 112 U/L Normal 38-113 [facility] Comment on above: Order Comment: Speci men Type: BLOOD SPECIMENOrdering Facility: [facility] Address: [address] [place] [address] Performed By: #### 2 4323-8 ####[facility] LABCLIA [id number] [place] [address] ALT [Catalytic activity/Vol] 20 U/L Normal 10-54 [facility] Comment on above: Order Comment: Speci men Type: BLOOD SPECIMENOrdering Facility: [facility] Address: [address] [place], [place] [address] Performed By: #### 2 4323-8 ####[facility] LABCLIA [id number] [place] [address] Anion gap [Moles/Vol] 10 mmol/L Normal 9-18 [facility] Comment on above: Order Comment: Speci men Type: BLOOD SPECIMENOrdering Facility: [facility] Address: [address] [place], [place] [address] Performed By: #### 2 4323-8 ####[facility] LABCLIA [id number] [place] [address] AST [Catalytic activity/Vol] 26 U/L Normal 14-40 [facility] Comment on above: Order Comment: Speci men Type: BLOOD SPECIMENOrdering Facility: [facility] Address: [address] [place] [address] Performed By: #### 2 4323-8 ####[facility] LABCLIA [id number] [place] [address] Bilirubin [Mass/Vol] mg/dL Low 0.2-1.3 [facility] Comment on above: Order Comment: Speci men Type: BLOOD SPECIMENOrdering Facility: [facility] Address: [address] [place] [address] Performed By: #### 2 4323-8 ####[facility] LABCLIA [id number] [place] [address] Calcium [Mass/Vol] 9.9 mg/dL Normal 8.5-10.2 [facility] Comment on above: Order Comment: Speci men Type: BLOOD SPECIMENOrdering Facility: [facility] Address: [address] [place] [address] Performed By: #### 2 4323-8 ####[facility] LABCLIA [id number] [place] [address] Chloride [Moles/Vol] 101 mmol/L Normal 97-105 [facility] Comment on above: Order Comment: Speci men Type: BLOOD SPECIMENOrdering Facility: [facility] Address: [address] [place] [address] Performed By: #### 2 4323-8 ####[facility] LABCLIA [id number] [place] [address] CO2 [Moles/Vol] 26 mmol/L Normal 22-30 [facility] Comment on above: Order Comment: Speci men Type: BLOOD SPECIMENOrdering Facility: [facility] Address: [address] [place] [address] Performed By: #### 2 4323-8 ####[facility] LABCLIA [id number] [place] [address] Creatinine [Mass/Vol] 1.90 mg/dL High 0.73-1.22 [facility] Comment on above: Order Comment: Speci men Type: BLOOD SPECIMENOrdering Facility: [facility] Address: [address] [place] [address] Performed By: #### 2 4323-8 ####[facility] LABCLIA [id number] [place] [address] Creatinine and Glomerular filtration rate.predicted panel (S/P/Bld) 35 mL/min/1.73m??? Low >=60 [facility] Comment on above: Order Comment: Speci men Type: BLOOD SPECIMENOrdering Facility: [facility] Address: [address] [place] [address] Result Comment: Janae mated Glomerular Filtration Rate (eGFR) is calculated using the 2020 CKD-EPI creatinine equation. This equation utilizes serum creatinine, sex, and age as parameters. The creatinine assay has traceable calibration to isotope dilution-mass spectrometry. Refer to KDIGO guidelines for clinical interpretation. In patients with unstable renal function, e.g. those with acute kidney injury, the eGFR may not accurately reflect actual GFR. Performed By: #### 2 4323-8 ####[facility] LABCLIA [id number] [place] [address] Glucose [Mass/Vol] 153 mg/dL High 74-99 [facility] Comment on above: Order Comment: Speci men Type: BLOOD SPECIMENOrdering Facility: [facility] Address: [address] [place] [address] Result Comment: The [place] Diabetes [employer] (ADA) provides guidance for cutoff values for fasting glucose and random glucose. The ADA defines fasting as no caloric intake for at least 8 hours. Fasting plasma glucose results between 100 to 125 mg/dL indicate increased risk for diabetes (prediabetes).Fasting plasma glucose results greater than or equal to 126 mg/dL meet the criteria for diagnosis of diabetes. In the absence of unequivocal hyperglycemia, results should be confirmed by repeat testing. In a patient with classic symptoms of hyperglycemia or hyperglycemic crisis, random plasma glucose results greater than or equal to 200 mg/dL meet the criteria for diagnosis of diabetes.Reference: Standards of Medical Care in Diabetes 2016, [place] [employer]. Diabetes Care. 2016.39(Suppl 1). Performed By: #### 2 4323-8 ####[facility] LABCLIA [id number] [place] [address] Potassium [Moles/Vol] 4.7 mmol/L Normal 3.7-5.1 [facility] Comment on above: Order Comment: Speci men Type: BLOOD SPECIMENOrdering Facility: [facility] Address: [address] [place] [address] Performed By: #### 2 4323-8 ####[facility] LABCLIA [id number] [place] [address] Protein [Mass/Vol] 6.4 g/dL Normal 6.3-8.0 [facility] Comment on above: Order Comment: Speci men Type: BLOOD SPECIMENOrdering Facility: [facility] Address: [address] [place], [place] [address] Performed By: #### 2 4323-8 ####[facility] LABCLIA [id number] [place] [address] Sodium [Moles/Vol] 137 mmol/L Normal 136-144 [facility] Comment on above: Order Comment: Speci men Type: BLOOD SPECIMENOrdering Facility: [facility] Address: [address] [place] [address] Performed By: #### 2 4323-8 ####[facility] LABCLIA [id number] [place] [address] Urea nitrogen [Mass/Vol] 25 mg/dL High 9-24 [facility] Comment on above: Order Comment: Speci men Type: BLOOD SPECIMENOrdering Facility: [facility] Address: [address] [place] [address] Performed By: #### 2 4323-8 ####[facility] LABCLIA [id number] [place] [address] CNPNon 09-30-2023 CNPN Normal [facility] Bacteria Ur Culton Bacteria identified Cx Nom (U) Abnormal [facility] Comment on above: Performed By: #### 6 30-4 ####[facility] LABCLIA [id number] [place] [address] [place] CBC W Auto Differential pane l (Bld)on 09-26-2023 Basophils (Bld) [#/Vol] 0.05 10*3/uL Normal <0.11 [facility] Comment on above: Order Comment: Speci men Type: BLOOD SPECIMENOrdering Facility: [facility] Address: [address] [place] [address] Performed By: #### 5 7021-8 ####[facility] LABCLIA [id number] [place] [address] Basophils/100 WBC (Bld) 0.4 % Normal [facility] Comment on above: Order Comment: Speci men Type: BLOOD SPECIMENOrdering Facility: [facility] Address: [address] [place] [address] Performed By: #### 5 7021-8 ####[facility] LABCLIA [id number] [place] [address] Differential cell count method Nom (Bld) Auto Normal [facility] Comment on above: Order Comment: Speci men Type: BLOOD SPECIMENOrdering Facility: [facility] Address: [address] [place] [address] Performed By: #### 5 7021-8 ####[facility] LABCLIA [id number] [place] [address] Eosinophils (Bld) [#/Vol] 0.20 10*3/uL Normal <0.46 [facility] Comment on above: Order Comment: Speci men Type: BLOOD SPECIMENOrdering Facility: [facility] Address: [address] [place] [address] Performed By: #### 5 7021-8 ####[facility] LABCLIA [id number] [place] [address] Eosinophils/100 WBC (Bld) 1.5 % Normal [facility] Comment on above: Order Comment: Speci men Type: BLOOD SPECIMENOrdering Facility: [facility] Address: [address] [place] [address] Performed By: #### 5 7021-8 ####[facility] LABCLIA [id number] [place] [address] Erythrocyte distribution width (RBC) [Ratio] 12.0 % Normal 11.5-15.0 [facility] Comment on above: Order Comment: Speci men Type: BLOOD SPECIMENOrdering Facility: [facility] Address: [address] [place] [address] Performed By: #### 5 7021-8 ####[facility] LABCLIA [id number] [place] [address] Hematocrit (Bld) [Volume fraction] 34.3 % Low 39.0-51.0 [facility] Comment on above: Order Comment: Speci men Type: BLOOD SPECIMENOrdering Facility: [facility] Address: [address] [place] [address] Performed By: #### 5 7021-8 ####[facility] LABCLIA [id number] [place] [address] Hemoglobin (Bld) [Mass/Vol] 11.5 g/dL Low 13.0-17.0 [facility] Comment on above: Order Comment: Speci men Type: BLOOD SPECIMENOrdering Facility: [facility] Address: [address] [place] [address] Performed By: #### 5 7021-8 ####[facility] LABCLIA [id number] [place] [address] Immature granulocytes (Bld) [#/Vol] 0.18 10*3/uL High <0.10 [facility] Comment on above: Order Comment: Speci men Type: BLOOD SPECIMENOrdering Facility: [facility] Address: [address] [place] [address] Performed By: #### 5 7021-8 ####[facility] LABCLIA [id number] [place] [address] Immature granulocytes/100 WBC (Bld) 1.4 % Normal [facility] Comment on above: Order Comment: Speci men Type: BLOOD SPECIMENOrdering Facility: [facility] Address: [address] [place] [address] Performed By: #### 5 7021-8 ####[facility] LABCLIA [id number] [place] [address] Lymphocytes (Bld) [#/Vol] 1.24 10*3/uL Normal 1.00-4.00 [facility] Comment on above: Order Comment: Speci men Type: BLOOD SPECIMENOrdering Facility: [facility] Address: [address] [place] [address] Performed By: #### 5 7021-8 ####[facility] LABCLIA [id number] [place] [address] Lymphocytes/100 WBC (Bld) 9.4 % Normal [facility] Comment on above: Order Comment: Speci men Type: BLOOD SPECIMENOrdering Facility: [facility] Address: [address] [place] [address] Performed By: #### 5 7021-8 ####[facility] LABCLIA [id number] [place] [address] MCH (RBC) [Entitic mass] 37.2 pg High 26.0-34.0 [facility] Comment on above: Order Comment: Speci men Type: BLOOD SPECIMENOrdering Facility: [facility] Address: [address] [place] [address] Performed By: #### 5 7021-8 ####[facility] LABIA [id number] [place] [address] MCHC (RBC) [Mass/Vol] 33.5 g/dL Normal 30.5-36.0 [facility] Comment on above: Order Comment: Speci men Type: BLOOD SPECIMENOrdering Facility: [facility] Address: [address] [place] [address] Performed By: #### 5 7021-8 ####[facility] LABIA [id number] [place] [address] MCV (RBC) [Entitic vol] 111.0 fL High 80.0-100.0 C [facility] Comment on above: Order Comment: Speci men Type: BLOOD SPECIMENOrdering Facility: [facility] Address: [address] [place] [address] Performed By: #### 5 7021-8 ####[facility] LABIA [id number] [place] [address] Monocytes (Bld) [#/Vol] 1.61 10*3/uL High <0.87 [facility] Comment on above: Order Comment: Speci men Type: BLOOD SPECIMENOrdering Facility: [facility] Address: [address] [place] [address] Performed By: #### 5 7021-8 ####[facility] LABCLIA [id number] [place] [address] Monocytes/100 WBC (Bld) 12.2 % Normal [facility] Comment on above: Order Comment: Speci men Type: BLOOD SPECIMENOrdering Facility: [facility] Address: [address] [place] [address] Performed By: #### 5 7021-8 ####[facility] LABCLIA [id number] [place] [address] Neutrophils (Bld) [#/Vol] 9.95 10*3/uL High 1.45-7.50 [facility] Comment on above: Order Comment: Speci men Type: BLOOD SPECIMENOrdering Facility: [facility] Address: [address] [place] [address] Performed By: #### 5 7021-8 ####[facility] LABCLIA [id number] [place] [address] Neutrophils/100 WBC (Bld) 75.1 % Normal [facility] Comment on above: Order Comment: Speci men Type: BLOOD SPECIMENOrdering Facility: [facility] Address: [address] [place] [address] Performed By: #### 5 7021-8 ####[facility] LABCLIA [id number] [place] [address] Nucleated RBC (Bld) [#/Vol] 10*3/uL Normal <0.01 [facility] Comment on above: Order Comment: Speci men Type: BLOOD SPECIMENOrdering Facility: [facility] Address: [address] [place] [address] Performed By: #### 5 7021-8 ####[facility] LABCLIA [id number] [place] [address] Nucleated RBC/100 WBC (Bld) [Ratio] 0.0 /100 WBC Normal [facility] Comment on above: Order Comment: Speci men Type: BLOOD SPECIMENOrdering Facility: [facility] Address: [address] [place] [address] Performed By: #### 5 7021-8 ####[facility] LABCLIA [id number] [place] [address] Platelet mean volume (Bld) [Entitic vol] 10.4 fL Normal 9.0-12.7 [facility] Comment on above: Order Comment: Speci men Type: BLOOD SPECIMENOrdering Facility: [facility] Address: [address] [place] [address] Performed By: #### 5 7021-8 ####[facility] LABCLIA [id number] [place] [address] Platelets (Bld) [#/Vol] 196 10*3/uL Normal 150-400 [facility] Comment on above: Order Comment: Speci men Type: BLOOD SPECIMENOrdering Facility: [facility] Address: [address] [place] [address] Performed By: #### 5 7021-8 ####[facility] LABCLIA [id number] [place] [address] RBC (Bld) [#/Vol] 3.09 10*6/uL Low 4.20-6.00 [facility] Comment on above: Order Comment: Speci men Type: BLOOD SPECIMENOrdering Facility: [facility] Address: [address] [place] [address] Performed By: #### 5 7021-8 ####[facility] LABCLIA [id number] [place] [address] WBC (Bld) [#/Vol] 13.23 10*3/uL High 3.70-11.00 [facility] Comment on above: Order Comment: Speci men Type: BLOOD SPECIMENOrdering Facility: [facility] Address: [address] [place] [address] Performed By: #### 5 7021-8 ####[facility] LABCLIA [id number] [place] [address] CNNURSEon 09-26-2023 CNNURSE Normal [facility] CNOVSPon 09-26-2023 CNOVSP Normal [facility] Comprehensive metabolic 2000 panelon 09-26-2023 Albumin [Mass/Vol] 3.5 g/dL Low 3.9-4.9 [facility] Comment on above: Order Comment: Speci men Type: BLOOD SPECIMENOrdering Facility: [facility] Address: [address] [place] [id number] Performed By: #### 2 4323-8 ####[facility] LABCLIA [id number] [place] [address] ALP [Catalytic activity/Vol] 98 U/L Normal 38-113 [facility] Comment on above: Order Comment: Speci men Type: BLOOD SPECIMENOrdering Facility: [facility] Address: [address] [place] [id number] Performed By: #### 2 4323-8 ####[facility] LABCLIA [id number] [place] [address] ALT [Catalytic activity/Vol] 10 U/L Normal 10-54 [facility] Comment on above: Order Comment: Speci men Type: BLOOD SPECIMENOrdering Facility: [facility] Address: [address] [place] [id number] Performed By: #### 2 4323-8 ####[facility] LABCLIA [id number] [place] [address] Anion gap [Moles/Vol] 10 mmol/L Normal 9-18 [facility] Comment on above: Order Comment: Speci men Type: BLOOD SPECIMENOrdering Facility: [facility] Address: [address] [place] [address] Performed By: #### 2 4323-8 ####[facility] LABCLIA [id number] [place] [address] AST [Catalytic activity/Vol] 14 U/L Normal 14-40 [facility] Comment on above: Order Comment: Speci men Type: BLOOD SPECIMENOrdering Facility: [facility] Address: [address] [place] [address] Performed By: #### 2 4323-8 ####[facility] LABCLIA [id number] [place] [address] Bilirubin [Mass/Vol] 0.2 mg/dL Normal 0.2-1.3 [facility] Comment on above: Order Comment: Speci men Type: BLOOD SPECIMENOrdering Facility: [facility] Address: [address] [place] [address] Performed By: #### 2 4323-8 ####[facility] LABCLIA [id number] [place] [address] Calcium [Mass/Vol] 9.2 mg/dL Normal 8.5-10.2 [facility] Comment on above: Order Comment: Speci men Type: BLOOD SPECIMENOrdering Facility: [facility] Address: [address] [place] [address] Performed By: #### 2 4323-8 ####[facility] LABCLIA [id number] [place] [address] Chloride [Moles/Vol] 101 mmol/L Normal 97-105 [facility] Comment on above: Order Comment: Speci men Type: BLOOD SPECIMENOrdering Facility: [facility] Address: [address] [place] [address] Performed By: #### 2 4323-8 ####[facility] LABCLIA [id number] [place] [address] CO2 [Moles/Vol] 27 mmol/L Normal 22-30 [facility] Comment on above: Order Comment: Speci men Type: BLOOD SPECIMENOrdering Facility: [facility] Address: [address] [place] [address] Performed By: #### 2 4323-8 ####[facility] LABCLIA [id number] [place] [address] Creatinine [Mass/Vol] 1.34 mg/dL High 0.73-1.22 [facility] Comment on above: Order Comment: Speci men Type: BLOOD SPECIMENOrdering Facility: [facility] Address: [address] [place] [address] Performed By: #### 2 4323-8 ####[facility] LABCLIA [id number] [place] [address] Creatinine and Glomerular filtration rate.predicted panel (S/P/Bld) 53 mL/min/1.73m??? Low >=60 [facility] Comment on above: Order Comment: Speci men Type: BLOOD SPECIMENOrdering Facility: [facility] Address: [address] [place] [address] Result Comment: Janae mated Glomerular Filtration Rate (eGFR) is calculated using the 2020 CKD-EPI creatinine equation. This equation utilizes serum creatinine, sex, and age as parameters. The creatinine assay has traceable calibration to isotope dilution-mass spectrometry. Refer to KDIGO guidelines for clinical interpretation. In patients with unstable renal function, e.g. those with acute kidney injury, the eGFR may not accurately reflect actual GFR. Performed By: #### 2 4323-8 ####[facility] LABCLIA [id number] [place] [address] Glucose [Mass/Vol] 99 mg/dL Normal 74-99 [facility] Comment on above: Order Comment: Speci men Type: BLOOD SPECIMENOrdering Facility: [facility] Address: [address] [place] [address] Result Comment: The [place] [employer] (ADA) provides guidance for cutoff values for fasting glucose and random glucose. The ADA defines fasting as no caloric intake for at least 8 hours. Fasting plasma glucose results between 100 to 125 mg/dL indicate increased risk for diabetes (prediabetes).Fasting plasma glucose results greater than or equal to 126 mg/dL meet the criteria for diagnosis of diabetes. In the absence of unequivocal hyperglycemia, results should be confirmed by repeat testing. In a patient with classic symptoms of hyperglycemia or hyperglycemic crisis, random plasma glucose results greater than or equal to 200 mg/dL meet the criteria for diagnosis of diabetes.Reference: Standards of Medical Care in Diabetes 2016, [place] [employer]. Diabetes Care. 2016.39(Suppl 1). Performed By: #### 2 4323-8 ####[facility] LABCLIA [id number] [place] [address] Potassium [Moles/Vol] 4.0 mmol/L Normal 3.7-5.1 [facility] Comment on above: Order Comment: Speci men Type: BLOOD SPECIMENOrdering Facility: [facility] Address: [address] [place] [address] Performed By: #### 2 4323-8 ####[facility] LABCLIA [id number] [place] [address] Protein [Mass/Vol] 6.3 g/dL Normal 6.3-8.0 [facility] Comment on above: Order Comment: Speci men Type: BLOOD SPECIMENOrdering Facility: [facility] Address: [address] [place] [address] Performed By: #### 2 4323-8 ####[facility] LABCLIA [id number] [place] [address] Sodium [Moles/Vol] 138 mmol/L Normal 136-144 [facility] Comment on above: Order Comment: Speci men Type: BLOOD SPECIMENOrdering Facility: [facility] Address: [address] [place] [address] Performed By: #### 2 4323-8 ####[facility] LABCLIA [id number] [place] [address] Urea nitrogen [Mass/Vol] 23 mg/dL Normal 9-24 [facility] Comment on above: Order Comment: Speci men Type: BLOOD SPECIMENOrdering Facility: [facility] Address: [address] [place] [address] Performed By: #### 2 4323-8 ####[facility] LABCLIA [id number] [place] [address] ECG 12 lead ECGon 09-24-2023 ECG 12 lead ECG [facility] [address] [place] [address] [place] [address] Electrocardiograph Report Signed Patient: Missy Salgado MR#: [id number] 5 : 1940 Acct:[id number] Age/Sex: 83 / M ADM Date: 09/24/23 Loc: EKGCARDIO Room: Type: [facility] Attending Dr: Skip Ocasio MD Ordering Provider: Skip Ocasio MD Date of Service: 09/24/23 ECG/ECG 12 lead ECG: I48.91 - Unspecified atrial fibrillation Copies to: Test Reason : Blood Pressure : / mmHG Vent. Rate : 086 BPM Atrial Rate : 086 BPM P-R Int : 166 ms QRS Dur : 084 ms QT Int : 374 ms P-R-T Axes : 046 -24 075 degrees QTc Int : 447 ms Normal sinus rhythm Inferior infarct , age undetermined Anterior infarct (cited on or before 09-JUL-2023) Abnormal ECG When compared with ECG of 09-JUL-2023 06:01, Inferior infarct is now present Questionable change in initial forces of Anterolateral leads Confirmed by Skip Ocasio ([id number]) on 10/09/2023 5:45:34 PM Referred By: Electronically Signed By:Skip Ocasio Transcribed By: MUS Signed By Skip Ocasio MD 10/09/23 8912 Normal [facility] Non-Head Refrigerating Engineer Cytologyon 4 Case No: [id number] Normal [facility] Comment on above: Performed By: #### N ROLL CUTTING OPERATOR #### [address] [place] [address] Service Unit Operator [employer] [place]: Brennan Daniel MD [facility] [address] [place] [address] Service Unit Operator [employer]: Luis Felipe Watson MD Non-Head Refrigerating Engineer Cytologyon 4 Specimen Description .URINE Normal [facility] Comment on above: Performed By: #### N ROLL CUTTING OPERATOR #### [address] [id number] Service Unit Operator Oil Well: Brennan Daniel MD [facility] [address] [place] [address] Service Unit Operator Oil Well: Luis Felipe Watson MD Surgical Pathology Reporton 09-23-2023 Surgical Pathology Report (NOTE) Path Number: [id number] INTERPRETATION URINE, VOIDED: NEGATIVE FOR MALIGNANCY. ACUTE INFLAMMATION. Electronically Signed Out Abiodun Nails M.D. 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 Gross Description UNDESIGNATED 60 ml. yellow cloudy fluid. MICROSCOPIC DESCRIPTION Microscopic examination performed. Non Head Refrigerating Engineer Thin Prep x 1 Processing Lab: [address] [address] Interpretation performed at [address] [address] NONGYNECOLOGICAL CYTOPATHOLOGY CONSULTATION Patient Name: MISSY SALGADO Marcelle [facility] Rec: [id number] [facility] [employer] [facility] [facility] ANATOMIC PATHOLOGY [address] [place] [address]. [place], [place] [address] Normal [facility] Albumin [Mass/volume] in Ser um or Plasmaon 09-19-2023 Albumin [Mass/Vol] 3.43 g/dL 3.43-5.41 [facility] Basophils Auto (Bld) [#/Vol] on 09-19-2023 Basophils (Bld) [#/Vol] 0.07 10*3/uL <0.11 [facility] Basophils/100 WBC Auto (Bld) on 09-19-2023 Basophils/100 WBC (Bld) 0.8 % F [facility] Blood manual differential co mment interpretation narrativeon 09-19-2023 Manual differential comment Aashish (Bld) [Interp] Auto [facility] CBC W Auto Differential pane l (Bld)on 09-19-2023 Basophils (Bld) [#/Vol] 0.07 10*3/uL <0.11 k/uL [facility] Basophils/100 WBC (Bld) 0.8 % [facility] Differential cell count method Nom (Bld) Auto [facility] Eosinophils (Bld) [#/Vol] 0.29 10*3/uL <0.46 k/uL [facility] Eosinophils/100 WBC (Bld) 3.3 % [facility] Erythrocyte distribution width (RBC) [Ratio] 12.5 % 11.5 - 15.0 % [facility] Hematocrit (Bld) [Volume fraction] 34.8 % Low 39.0 - 51.0 % [facility] Hemoglobin (Bld) [Mass/Vol] 11.7 g/dL Low 13.0 - 17.0 g/dL [facility] Immature granulocytes (Bld) [#/Vol] 0.04 10*3/uL <0.10 k/uL [facility] Immature granulocytes/100 WBC (Bld) 0.5 % [facility] Lymphocytes (Bld) [#/Vol] 1.31 10*3/uL 1.00 - 4.00 k/uL [facility] Lymphocytes/100 WBC (Bld) 15.0 % [facility] MCH (RBC) [Entitic mass] 38.1 pg High 26. 0 - 34.0 pg [facility] MCHC (RBC) [Mass/Vol] 33.6 g/dL 30.5 - 36.0 g/dL [facility] MCV (RBC) [Entitic vol] 113.4 fL High 80.0 - 100.0 fL [facility] Monocytes (Bld) [#/Vol] 1.31 10*3/uL High <0.87 k/uL [facility] Monocytes/100 WBC (Bld) 15.0 % [facility] Neutrophils (Bld) [#/Vol] 5.69 10*3/uL 1.45 - 7.50 k/uL [facility] Neutrophils/100 WBC (Bld) 65.4 % [facility] Nucleated RBC (Bld) [#/Vol] <0.01 k/uL [facility] Nucleated RBC/100 WBC (Bld) [Ratio] 0.0 /100 WBC [facility] Platelet mean volume (Bld) [Entitic vol] 9.8 fL 9.0 - 12.7 fL [facility] Platelets (Bld) [#/Vol] 242 10*3/uL 150 - 400 k/uL [facility] RBC (Bld) [#/Vol] 3.07 10*6/uL Low 4.20 - 6.0 0 m/uL [facility] WBC (Bld) [#/Vol] 8.71 10*3/uL 3.70 - 11.00 k/uL [facility] Basophils (Bld) [#/Vol] 0.07 10*3/uL Normal <0.11 [facility] Comment on above: Order Comment: Speci men Type: BLOOD SPECIMENOrdering Facility: [facility] Address: [address] [place] [address] Performed By: #### 5 7021-8 ####[facility] LABCLIA [id number] [place] [address] Basophils/100 WBC (Bld) 0.8 % Normal [facility] Comment on above: Order Comment: Speci men Type: BLOOD SPECIMENOrdering Facility: [facility] Address: [address] [place] [address] Performed By: #### 5 7021-8 ####[facility] LABCLIA [id number] [place] [address] Differential cell count method Nom (Bld) Auto Normal [facility] Comment on above: Order Comment: Speci men Type: BLOOD SPECIMENOrdering Facility: [facility] Address: [address] [place] [address] Performed By: #### 5 7021-8 ####[facility] LABCLIA [id number] [place] [address] Eosinophils (Bld) [#/Vol] 0.29 10*3/uL Normal <0.46 [facility] Comment on above: Order Comment: Speci men Type: BLOOD SPECIMENOrdering Facility: [facility] Address: [address] [place] [address] Performed By: #### 5 7021-8 ####[facility] LABCLIA [id number] [place] [address] Eosinophils/100 WBC (Bld) 3.3 % Normal [facility] Comment on above: Order Comment: Speci men Type: BLOOD SPECIMENOrdering Facility: [facility] Address: [address] [place] [address] Performed By: #### 5 7021-8 ####[facility] LABCLIA [id number] [place] [address] Erythrocyte distribution width (RBC) [Ratio] 12.5 % Normal 11.5-15.0 [facility] Comment on above: Order Comment: Speci men Type: BLOOD SPECIMENOrdering Facility: [facility] Address: [address] [place] [address] Performed By: #### 5 7021-8 ####[facility] LABCLIA [id number] [place] [address] Hematocrit (Bld) [Volume fraction] 34.8 % Low 39.0-51.0 [facility] Comment on above: Order Comment: Speci men Type: BLOOD SPECIMENOrdering Facility: [facility] Address: [address] [place] [address] Performed By: #### 5 7021-8 ####[facility] LABCLIA [id number] [place] [address] Hemoglobin (Bld) [Mass/Vol] 11.7 g/dL Low 13.0-17.0 [facility] Comment on above: Order Comment: Speci men Type: BLOOD SPECIMENOrdering Facility: [facility] Address: [address] [place] [address] Performed By: #### 5 7021-8 ####[facility] LABCLIA [id number] [place] [address] Immature granulocytes (Bld) [#/Vol] 0.04 10*3/uL Normal <0.10 [facility] Comment on above: Order Comment: Speci men Type: BLOOD SPECIMENOrdering Facility: [facility] Address: [address] [place] [address] Performed By: #### 5 7021-8 ####[facility] LABCLIA [id number] [place] [address] Immature granulocytes/100 WBC (Bld) 0.5 % Normal [facility] Comment on above: Order Comment: Speci men Type: BLOOD SPECIMENOrdering Facility: [facility] Address: [address] [place] [address] Performed By: #### 5 7021-8 ####[facility] LABCLIA [id number] [place] [address] Lymphocytes (Bld) [#/Vol] 1.31 10*3/uL Normal 1.00-4.00 [facility] Comment on above: Order Comment: Speci men Type: BLOOD SPECIMENOrdering Facility: [facility] Address: [address] [place] [address] Performed By: #### 5 7021-8 ####[facility] LABIA [id number] [place] [address] Lymphocytes/100 WBC (Bld) 15.0 % Normal [facility] Comment on above: Order Comment: Speci men Type: BLOOD SPECIMENOrdering Facility: [facility] Address: [address] [place] [address] Performed By: #### 5 7021-8 ####[facility] LABCLIA [id number] [place] [address] MCH (RBC) [Entitic mass] 38.1 pg High 26.0-34.0 [facility] Comment on above: Order Comment: Speci men Type: BLOOD SPECIMENOrdering Facility: [facility] Address: [address] [place] [address] Performed By: #### 5 7021-8 ####[facility] LABCLIA [id number] [place] [address] MCHC (RBC) [Mass/Vol] 33.6 g/dL Normal 30.5-36.0 [facility] Comment on above: Order Comment: Speci men Type: BLOOD SPECIMENOrdering Facility: [facility] Address: [address] [place] [address] Performed By: #### 5 7021-8 ####[facility] LABCLIA [id number] [place] [address] MCV (RBC) [Entitic vol] 113.4 fL High 80.0-100.0 [facility] Comment on above: Order Comment: Speci men Type: BLOOD SPECIMENOrdering Facility: [facility] Address: [address] [place] [address] Performed By: #### 5 7021-8 ####[facility] LABCLIA [id number] [place] [address] Monocytes (Bld) [#/Vol] 1.31 10*3/uL High <0.87 [facility] Comment on above: Order Comment: Speci men Type: BLOOD SPECIMENOrdering Facility: [facility] Address: [address] [place] [address] Performed By: #### 5 7021-8 ####[facility] LABCLIA [id number] [place] [address] Monocytes/100 WBC (Bld) 15.0 % Normal [facility] Comment on above: Order Comment: Speci men Type: BLOOD SPECIMENOrdering Facility: [facility] Address: [address] [place] [address] Performed By: #### 5 7021-8 ####[facility] LABCLIA [id number] [place] [address] Neutrophils (Bld) [#/Vol] 5.69 10*3/uL Normal 1.45-7.50 [facility] Comment on above: Order Comment: Speci men Type: BLOOD SPECIMENOrdering Facility: [facility] Address: [address] [place] [address] Performed By: #### 5 7021-8 ####[facility] LABCLIA [id number] [place] [address] Neutrophils/100 WBC (Bld) 65.4 % Normal [facility] Comment on above: Order Comment: Speci men Type: BLOOD SPECIMENOrdering Facility: [facility] Address: [address] [place] [address] Performed By: #### 5 7021-8 ####[facility] LABCLIA [id number] [place] [address] Nucleated RBC (Bld) [#/Vol] 10*3/uL Normal <0.01 [facility] Comment on above: Order Comment: Speci men Type: BLOOD SPECIMENOrdering Facility: [facility] Address: [address] [place] [address] Performed By: #### 5 7021-8 ####[facility] LABCLIA [id number] [place] [address] Nucleated RBC/100 WBC (Bld) [Ratio] 0.0 /100 WBC Normal [facility] Comment on above: Order Comment: Speci men Type: BLOOD SPECIMENOrdering Facility: [facility] Address: [address] [place] [address] Performed By: #### 5 7021-8 ####[facility] LABCLIA [id number] [place] [address] Platelet mean volume (Bld) [Entitic vol] 9.8 fL Normal 9.0-12.7 [facility] Comment on above: Order Comment: Speci men Type: BLOOD SPECIMENOrdering Facility: [facility] Address: [address] [place] [address] Performed By: #### 5 7021-8 ####[facility] LABCLIA [id number] [place] [address] Platelets (Bld) [#/Vol] 242 10*3/uL Normal 150-400 [facility] Comment on above: Order Comment: Speci men Type: BLOOD SPECIMENOrdering Facility: [facility] Address: [address] [place] [address] Performed By: #### 5 7021-8 ####[facility] LABCLIA [id number] [place] [address] RBC (Bld) [#/Vol] 3.07 10*6/uL Low 4.20-6.00 [facility] Comment on above: Order Comment: Speci men Type: BLOOD SPECIMENOrdering Facility: [facility] Address: [address] [place] [address] Performed By: #### 5 7021-8 ####[facility] LABIA [id number] [place] [address] WBC (Bld) [#/Vol] 8.71 10*3/uL Normal 3.70-11.00 [facility] Comment on above: Order Comment: Speci men Type: BLOOD SPECIMENOrdering Facility: [facility] Address: [address] [place] [address] Performed By: #### 5 7021-8 ####[facility] LABIA [id number] [place] [address] CNOVSPon 09-19-2023 CNOVSP Normal [facility] Comprehensive metabolic 2000 panelon 09-19-2023 Albumin [Mass/Vol] 3.7 g/dL Low 3.9 - 4.9 g/dL [facility] ALP [Catalytic activity/Vol] 98 U/L 38 - 113 U/L [facility] ALT [Catalytic activity/Vol] 12 U/L 10 - 54 U/L [facility] Anion gap [Moles/Vol] 6 mmol/L Low 9 - 18 mmol/L [facility] AST [Catalytic activity/Vol] 18 U/L 14 - 40 U/L [facility] Bilirubin [Mass/Vol] 0.2 mg/dL 0.2 - 1 .3 mg/dL [facility] Calcium [Mass/Vol] 9.0 mg/dL 8.5 - 10. 2 mg/dL [facility] Chloride [Moles/Vol] 104 mmol/L 97 - 10 5 mmol/L [facility] CO2 [Moles/Vol] 28 mmol/L 22 - 30 mmol/L [facility] Creatinine [Mass/Vol] 1.32 mg/dL High 0.73 - 1.22 mg/dL [facility] Estimated Glomerular Filtration Rate 54 mL/min/1.73m Low >=60 mL/min/1.73 m [facility] Glucose [Mass/Vol] 104 mg/dL High 74 - 99 mg/dL [facility] Potassium [Moles/Vol] 4.3 mmol/L 3.7 - 5.1 mmol/L [facility] Protein [Mass/Vol] 6.0 g/dL Low 6.3 - 8.0 g/dL [facility] Sodium [Moles/Vol] 138 mmol/L 136 - 144 mmol/L [facility] Urea nitrogen [Mass/Vol] 30 mg/dL High 9 - 24 mg/dL [facility] Albumin [Mass/Vol] 3.7 g/dL Low 3.9-4.9 [facility] Comment on above: Order Comment: Speci men Type: BLOOD SPECIMENOrdering Facility: [facility] Address: [address] [place] [address] Performed By: #### 2 4323-8 ####[facility] LABCLIA [id number] [place] [address] ALP [Catalytic activity/Vol] 98 U/L Normal 38-113 [facility] Comment on above: Order Comment: Speci men Type: BLOOD SPECIMENOrdering Facility: [facility] Address: [address] [place] [address] Performed By: #### 2 4323-8 ####[facility] LABCLIA [id number] [place] [address] ALT [Catalytic activity/Vol] 12 U/L Normal 10-54 [facility] Comment on above: Order Comment: Speci men Type: BLOOD SPECIMENOrdering Facility: [facility] Address: [address] [place] [address] Performed By: #### 2 4323-8 ####[facility] LABCLIA [id number] [place] [address] Anion gap [Moles/Vol] 6 mmol/L Low 9-18 [facility] Comment on above: Order Comment: Speci men Type: BLOOD SPECIMENOrdering Facility: [facility] Address: [address] [place] [address] Performed By: #### 2 4323-8 ####[facility] LABCLIA [id number] [place] [address] AST [Catalytic activity/Vol] 18 U/L Normal 14-40 [facility] Comment on above: Order Comment: Speci men Type: BLOOD SPECIMENOrdering Facility: [facility] Address: [address] [place] [address] Performed By: #### 2 4323-8 ####[facility] LABCLIA [id number] [place] [address] Bilirubin [Mass/Vol] 0.2 mg/dL Normal 0.2-1.3 [facility] Comment on above: Order Comment: Speci men Type: BLOOD SPECIMENOrdering Facility: [facility] Address: [address] [place] [address] Performed By: #### 2 4323-8 ####[facility] LABCLIA [id number] [place] [address] Calcium [Mass/Vol] 9.0 mg/dL Normal 8.5-10.2 [facility] Comment on above: Order Comment: Speci men Type: BLOOD SPECIMENOrdering Facility: [facility] Address: [address] [place] [address] Performed By: #### 2 4323-8 ####[facility] LABCLIA [id number] [place] [address] Chloride [Moles/Vol] 104 mmol/L Normal 97-105 [facility] Comment on above: Order Comment: Speci men Type: BLOOD SPECIMENOrdering Facility: [facility] Address: [address] [place] [address] Performed By: #### 2 4323-8 ####[facility] LABCLIA [id number] [place] [address] CO2 [Moles/Vol] 28 mmol/L Normal 22-30 [facility] Comment on above: Order Comment: Speci men Type: BLOOD SPECIMENOrdering Facility: [facility] Address: [address] [place] [address] Performed By: #### 2 4323-8 ####[facility] LABCLIA [id number] [place] [address] Creatinine [Mass/Vol] 1.32 mg/dL High 0.73-1.22 [facility] Comment on above: Order Comment: Speci men Type: BLOOD SPECIMENOrdering Facility: [facility] Address: [address] [place] [address] Performed By: #### 2 4323-8 ####[facility] LABCLIA [id number] [place] [address] Creatinine and Glomerular filtration rate.predicted panel (S/P/Bld) 54 mL/min/1.73m??? Low >=60 [facility] Comment on above: Order Comment: Speci men Type: BLOOD SPECIMENOrdering Facility: [facility] Address: [address] [place] [address] Result Comment: Janae mated Glomerular Filtration Rate (eGFR) is calculated using the 2020 CKD-EPI creatinine equation. This equation utilizes serum creatinine, sex, and age as parameters. The creatinine assay has traceable calibration to isotope dilution-mass spectrometry. Refer to KDIGO guidelines for clinical interpretation. In patients with unstable renal function, e.g. those with acute kidney injury, the eGFR may not accurately reflect actual GFR. Performed By: #### 2 4323-8 ####[facility] LABCLIA [id number] [place] [address] Glucose [Mass/Vol] 104 mg/dL High 74-99 [facility] Comment on above: Order Comment: Speci men Type: BLOOD SPECIMENOrdering Facility: [facility] Address: [address] [place] [address] Result Comment: The [place] Diabetes [employer] (ADA) provides guidance for cutoff values for fasting glucose and random glucose. The ADA defines fasting as no caloric intake for at least 8 hours. Fasting plasma glucose results between 100 to 125 mg/dL indicate increased risk for diabetes (prediabetes).Fasting plasma glucose results greater than or equal to 126 mg/dL meet the criteria for diagnosis of diabetes. In the absence of unequivocal hyperglycemia, results should be confirmed by repeat testing. In a patient with classic symptoms of hyperglycemia or hyperglycemic crisis, random plasma glucose results greater than or equal to 200 mg/dL meet the criteria for diagnosis of diabetes.Reference: Standards of Medical Care in Diabetes 2016, [place] [employer]. Diabetes Care. 2016.39(Suppl 1). Performed By: #### 2 4323-8 ####[facility] LABCLIA [id number] [place] [address] Potassium [Moles/Vol] 4.3 mmol/L Normal 3.7-5.1 [facility] Comment on above: Order Comment: Speci men Type: BLOOD SPECIMENOrdering Facility: [facility] Address: [address] [place] [address] Performed By: #### 2 4323-8 ####[facility] LABCLIA [id number] [place] [address] Protein [Mass/Vol] 6.0 g/dL Low 6.3-8.0 [facility] Comment on above: Order Comment: Speci men Type: BLOOD SPECIMENOrdering Facility: [facility] Address: [address] [place] [address] Performed By: #### 2 4323-8 ####[facility] LABCLIA [id number] [place] [address] Sodium [Moles/Vol] 138 mmol/L Normal 136-144 [facility] Comment on above: Order Comment: Speci men Type: BLOOD SPECIMENOrdering Facility: [facility] Address: [address] [place] [address] Performed By: #### 2 4323-8 ####[facility] LABCLIA [id number] [place] [address] Urea nitrogen [Mass/Vol] 30 mg/dL High 9-24 [facility] Comment on above: Order Comment: Speci men Type: BLOOD SPECIMENOrdering Facility: [facility] Address: [address] [place] [address] Performed By: #### 2 4323-8 ####[facility] LABCLIA [id number] [place] [address] Eosinophils/100 WBC Auto (Bl d)on 09-19-2023 Eosinophils/100 WBC (Bld) 3.3 % [facility] Erythrocyte distribution wid th Auto (RBC) [Ratio]on 09-19-2023 Erythrocyte distribution width (RBC) [Ratio] 12.5 % 11.5-15.0 [facility] Hematocrit Auto (Bld) [Volum e fraction]on 09-19-2023 Hematocrit (Bld) [Volume fraction] 34.8 % 39.0-51.0 [facility] Hemoglobin [Mass/volume] in Bloodon 09-19-2023 Hemoglobin (Bld) [Mass/Vol] 11.7 g/dL 13.0-17.0 [facility] IMMUNOFIXATION SCREEN, SERUM on 09-19-2023 INTERPRETATION (MPA) Atypical restricted bands are present in the IgG and lambda regions. Consistent with IgG lambda monoclonal gammopathy. Normal [facility] Comment on above: Order Comment: Speci men Type: BLOOD SPECIMENOrdering Facility: [facility] Address: [address] [place] [address] Performed By: #### I [facility] ####[facility] LABCLIA [id number] [place] [address] [place] MPA RESULT M protein is present. Abnormal No M protein is identified. [facility] Comment on above: Order Comment: Speci men Type: BLOOD SPECIMENOrdering Facility: [facility] Address: [address] [place] [address] Performed By: #### I FES ####[facility] LABCLIA [id number] [place] [address] [place] STAFF REVIEW (MPA) Reviewed by Karlene Kirkpatrick M.D., Ph.D Normal [facility] [facility] Comment on above: Order Comment: Speci men Type: BLOOD SPECIMENOrdering Facility: [facility] Address: [address] [place] [address] Performed By: #### I [facility] ####[facility] LABCLIA [id number] [place] [address] [place] IMMUNOGLOBULINS GAMon 2023 IgA [Mass/Vol] 114 mg/dL 70 - 400 mg/dL [facility] IgG [Mass/Vol] 645 mg/dL Low 700 - 1,600 mg/dL [facility] IgM [Mass/Vol] 9 mg/dL Low 40 - 230 mg/dL [facility] IgA [Mass/Vol] 114 mg/dL Normal 70-400 [facility] Comment on above: Order Comment: Speci men Type: BLOOD SPECIMENOrdering Facility: [facility] Address: [address] [place] [address] Performed By: #### S ERIMM ####[facility] LABCLIA [id number] [place] [address] [place] IgG [Mass/Vol] 645 mg/dL Low 700-1600 [facility] Comment on above: Order Comment: Speci men Type: BLOOD SPECIMENOrdering Facility: [facility] Address: [address] [place] [address] Performed By: #### S ERIMM ####[facility] LABCLIA [id number] [place] [address] [place] IgM [Mass/Vol] 9 mg/dL Low 40-230 [facility] Comment on above: Order Comment: Speci men Type: BLOOD SPECIMENOrdering Facility: [facility] Address: [address] [place] [address] Performed By: #### S [facility] ####[facility] LABCLIA [id number] [facility] [id number] [id number] [place] IgA [Mass/volume] in Serum o r Plasmaon 09-19-2023 IgA [Mass/Vol] 114 mg/dL 70-400 [facility] IgG [Mass/volume] in Serum o r Plasmaon 09-19-2023 IgG [Mass/Vol] 645 mg/dL 700-1600 [facility] IgM [Mass/volume] in Serum o r Plasmaon 09-19-2023 IgM [Mass/Vol] 9 mg/dL 40-230 [facility] Immunoglobulin light chains. kappa.free [Mass/volume] in Serumon 09-19-2023 Immunoglobulin light chains.kappa.free (S) [Mass/Vol] 14.3 mg/L 3.3-19.4 [facility] Comment on above: Rarely, increased se rum free light chains levels may not be detected or accurately quantified due to prozone phenomenon or in high viscosity samples using this immunoturbidimetric assay. Correlation with other laboratory results and clinical findings is recommended. The Leedey Free Light Chain was performed using the Binding Site Optilite immunoturbidimetric method. Result obtained with different assay methods or kits cannot be used interchangeably. Immunoglobulin light chains. kappa.free/Immunoglobulin light chains.lambda.free [Fransisca 09-19-2023 Immunoglobulin light chains.kappa.free/Immuno globulin light chains.lambda.free (S) [Mass ratio] 1.79 0.26-1.65 [facility] Immunoglobulin light chains. lambda.free [Mass/volume] in Serum or Plasmaon 09-19-2023 Immunoglobulin light chains.lambda.free [Mass/Vol] 8.0 mg/L 5.7-26.3 [facility] Comment on above: Rarely, increased se rum free light chains levels may not be detected or accurately quantified due to prozone phenomenon or in high viscosity samples using this immunoturbidimetric assay. Correlation with other laboratory results and clinical findings is recommended. The Lambda Free Light Chain was performed using the Binding Site Optilite immunoturbidimetric method. Result obtained with different assay methods or kits cannot be used interchangeably. KAPPA/HERNANDEZ,FREE,SERon 2023 Immunoglobulin light chains.kappa.free (S) [Mass/Vol] 14.3 mg/L Normal 3.3-19.4 [facility] Comment on above: Order Comment: Speci men Type: BLOOD SPECIMENOrdering Facility: [facility] Address: [address] [place] [address] Result Comment: Rare ly, increased serum free light chains levels may not be detected or accurately quantified due to prozone phenomenon or in high viscosity samples using this immunoturbidimetric assay. Correlation with other laboratory results and clinical findings is recommended.The [place] Free Light Chain was performed using the Binding Site Optilite immunoturbidimetric method. Result obtained with different assay methods or kits cannot be used interchangeably. Performed By: #### K LFRS ####[facility] LABCLIA [id number] [place] [address] [place] Immunoglobulin light chains.kappa/Immunoglobu natanael light chains.lambda (S) [Mass ratio] 1.79 High 0.26-1.65 [facility] Comment on above: Order Comment: Speci men Type: BLOOD SPECIMENOrdering Facility: [facility] Address: [address] [place] [address] Performed By: #### K LFRS ####[facility] LABCLIA [id number] [place] [address] [place] Immunoglobulin light chains.lambda.free [Mass/Vol] 8.0 mg/L Normal 5.7-26.3 [facility] Comment on above: Order Comment: Speci men Type: BLOOD SPECIMENOrdering Facility: [facility] Address: [address] [place] [address] Result Comment: Rare ly, increased serum free light chains levels may not be detected or accurately quantified due to prozone phenomenon or in high viscosity samples using this immunoturbidimetric assay. Correlation with other laboratory results and clinical findings is recommended.The Lambda Free Light Chain was performed using the Binding Site Optilite immunoturbidimetric method. Result obtained with different assay methods or kits cannot be used interchangeably. Performed By: #### K LFRS ####[facility] LABCLIA [id number] [facility]IS[facility]ENTERL[facility] [place] [id number] [place] Laboratory - Chemistry and C hemistry - challengeon 09-19-2023 Albumin [Mass/Vol] 3.7 g/dL 3.9-4.9 [facility] ALP [Catalytic activity/Vol] 98 U/L 38-113 [facility] ALT [Catalytic activity/Vol] 12 U/L 10-54 [facility] AST [Catalytic activity/Vol] 18 U/L 14-40 [facility] Bilirubin [Mass/Vol] 0.2 mg/dL 0.2-1.3 [facility] Calcium [Mass/Vol] 9.0 mg/dL 8.5-10.2 [facility] Chloride [Moles/Vol] 104 mmol/L 97-105 [facility] CO2 [Moles/Vol] 28 mmol/L 22-30 [facility] Creatinine [Mass/Vol] 1.32 mg/dL 0.73-1.22 [facility] Glucose [Mass/Vol] 104 mg/dL 74-99 [facility] Comment on above: The [place] Diabete s Association (ADA) provides guidance for cutoff values for fasting glucose and random glucose. The ADA defines fasting as no caloric intake for at least 8 hours. Fasting plasma glucose results between 100 to 125 mg/dL indicate increased risk for diabetes (prediabetes).Fasting plasma glucose results greater than or equal to 126 mg/dL meet the criteria for diagnosis of diabetes. In the absence of unequivocal hyperglycemia, results should be confirmed by repeat testing. In a patient with classic symptoms of hyperglycemia or hyperglycemic crisis, random plasma glucose results greater than or equal to 200 mg/dL meet the criteria for diagnosis of diabetes.Reference: Standards of Medical Care in Diabetes 2016, [place] Diabetes Association. Diabetes Care. 2016.39(Suppl 1). Potassium [Moles/Vol] 4.3 mmol/L 3.7-5.1 [facility] Protein [Mass/Vol] 0.28 g/dL <=0.00 [facility] Sodium [Moles/Vol] 138 mmol/L 136-144 [facility] Urea nitrogen [Mass/Vol] 30 mg/dL 9- [facility] Laboratory - Hematology and Cell countson 09-19-2023 Eosinophils (Bld) [#/Vol] 0.29 10*3/uL <0.46 [facility] Immature granulocytes (Bld) [#/Vol] 0.04 10*3/uL <0.10 [facility] Immature granulocytes/100 WBC (Bld) 0.5 % [facility] Leukocytes [#/volume] correc tony for nucleated erythrocytes in Blood by Automated counon 09-19-2023 WBC corrected for nucl RBC Auto (Bld) [#/Vol] 8.71 k/uL 3.70-11.00 [facility] Lymphocytes Auto (Bld) [#/Vo l]on 09-19-2023 Lymphocytes (Bld) [#/Vol] 1.31 10*3/uL 1.00-4.00 [facility] Lymphocytes/100 WBC Auto (Bl d)on 09-19-2023 Lymphocytes/100 WBC (Bld) 15.0 % [facility] MCH Auto (RBC) [Entitic mass ]on 09-19-2023 MCH (RBC) [Entitic mass] 38.1 pg 26.0-34.0 [facility] MCHC Auto (RBC) [Mass/Vol]on 09-19-2023 MCHC (RBC) [Mass/Vol] 33.6 g/dL 30.5-36.0 [facility] MCV Auto (RBC) [Entitic vol] on 09-19-2023 MCV (RBC) [Entitic vol] 113.4 fL 80.0-100.0 [facility] Monocytes Auto (Bld) [#/Vol] on 09-19-2023 Monocytes (Bld) [#/Vol] 1.31 10*3/uL <0.87 [facility] Monocytes/100 WBC Auto (Bld) on 09-19-2023 Monocytes/100 WBC (Bld) 15.0 % [facility] Neutrophils Auto (Bld) [#/Vo l]on 09-19-2023 Neutrophils (Bld) [#/Vol] 5.69 10*3/uL 1.45-7.50 [facility] Neutrophils/100 WBC Auto (Bl d)on 09-19-2023 Neutrophils/100 WBC (Bld) 65.4 % [facility] No Panel Informationon 09-18 Estimated GFR (CKD-EPI) 54 mL/min/1.73m??? >=60 [facility] Comment on above: Estimated Glomerular Filtration Rate (eGFR) is calculated using the 2020 CKD-EPI creatinine equation. This equation utilizes serum creatinine, sex, and age as parameters. The creatinine assay has traceable calibration to isotope dilution-mass spectrometry. Refer to KDIGO guidelines for clinical interpretation. In patients with unstable renal function, e.g. those with acute kidney injury, the eGFR may not accurately reflect actual GFR. Immunofixation Interpretation [facility] Leuk/Lymph Sign Pathologist (Misc) Reviewed by Karlene Kirkpatrick M.D., Ph.D [facility] Miscellaneous Test 6 Gamma Fraction 1 [facility] Miscellaneous Test Comment Reviewed by Karlene Kirkpatrick M.D., Ph.D [facility] Protein Electrophoresis Interpret [facility] Protein Electrophoresis Note An M protein is identified on protein electrophoresis. No definitive M protein is identified on protein electrophor esis. [facility] Serum Immunofixation M protein is present. No M protein is identified. [facility] Nucleated RBC Auto (Bld) [#/ Vol]on 09-19-2023 Nucleated RBC (Bld) [#/Vol] 10*3/uL <0.01 [facility] Nucleated erythrocytes [Pres ence] in Blood by Automated counton 09-19-2023 Nucleated RBC Auto Ql (Bld) 0.0 /100{WBC} [facility] PROTEIN ELECTROPHORESIS SERU M (P)on 09-19-2023 Albumin [Mass/Vol] 3.43 g/dL Normal 3.43-5.41 [facility] Comment on above: Order Comment: Speci men Type: BLOOD SPECIMENOrdering Facility: [facility] Address: [address] [place] [address] Performed By: #### L [id number] ####[facility] LABCLIA [id number] [place] [address] [place] Alpha 1 globulin Elph [Mass/Vol] 0.25 g/dL Normal 0.18-0.43 [facility] Comment on above: Order Comment: Speci men Type: BLOOD SPECIMENOrdering Facility: [facility] Address: [address] [place] [address] Performed By: #### L [id number] ####[facility] LABIA [id number] [place] [address] [place] Alpha 2 globulin Elph [Mass/Vol] 0.64 g/dL Normal 0.42-0.98 [facility] Comment on above: Order Comment: Speci men Type: BLOOD SPECIMENOrdering Facility: [facility] Address: [address] [place] [address] Performed By: #### L [id number] ####[facility] LABIA [id number] [place] [address] [place] Beta globulin Elph [Mass/Vol] 0.76 g/dL Normal 0.61-1.17 [facility] Comment on above: Order Comment: Speci men Type: BLOOD SPECIMENOrdering Facility: [facility] Address: [address] [place] [address] Performed By: #### L [id number] ####[facility] LABIA [id number] [place] [address] [place] Gamma globulin Elph [Mass/Vol] 0.52 g/dL Low 0.53-1.51 [facility] Comment on above: Order Comment: Speci men Type: BLOOD SPECIMENOrdering Facility: [facility] Address: [address] [place] [address] Performed By: #### L [id number] ####[facility] LABIA [id number] [place] [address] [place] INTERPRETATION COMMENT FOR PROTEIN ELECTROPHORESIS See separate immunofixation report for characterization of monoclonal gammopathy. Normal [facility] Comment on above: Order Comment: Speci men Type: BLOOD SPECIMENOrdering Facility: [facility] Address: [address] [place] [address] Performed By: #### L [id number] ####[facility] LABIA [id number] [place] [address] [place] M-PROTEIN LOCATION Gamma Fraction 1 Normal [facility] Comment on above: Order Comment: Speci men Type: BLOOD SPECIMENOrdering Facility: [facility] Address: [address] [place] [address] Performed By: #### L [id number] ####[facility] [id number] [place] [address] [place] Protein Fractions [Interp] An M protein is identified on protein electrophoresis. Abnormal No definitive M protein is identified on protein electrophor esis. [facility] Comment on above: Order Comment: Speci men Type: BLOOD SPECIMENOrdering Facility: [facility] Address: [address] [place] [address] Performed By: #### L [id number] ####[facility] [id number] [place] [address] [place] Protein.monoclonal Elph [Mass/Vol] 0.28 g/dL High <=0.00 [facility] Comment on above: Order Comment: Speci men Type: BLOOD SPECIMENOrdering Facility: [facility] Address: [address] [place] [address] Performed By: #### L [id number] ####[facility] LABIA [id number] [place] [address] [place] SPE STAFF REVIEW Reviewed by Karlene Kirkpatrick M.D., Ph.D Normal [facility] Comment on above: Order Comment: Speci men Type: BLOOD SPECIMENOrdering Facility: [facility] Address: [address] [place] [address] Performed By: #### L [id number] ####[facility] LABCLIA [id number] [place] [address] [place] PROTEIN TOTAL BLDon 09-19-19 Protein [Mass/Vol] 5.6 g/dL Low 6.3 - 8.0 g/dL [facility] Platelet mean volume Auto (B ld) [Entitic vol]on 09-19-2023 Platelet mean volume (Bld) [Entitic vol] 9.8 fL 9.0-12.7 [facility] Platelets Auto (Bld) [#/Vol] on 09-19-2023 Platelets (Bld) [#/Vol] 242 10*3/uL 150-400 [facility] Prot SerPl-mCncon 09-19-2023 Protein [Mass/Vol] 5.6 g/dL Low 6.3-8.0 [facility] Comment on above: Order Comment: Speci men Type: BLOOD SPECIMENOrdering Facility: [facility] Address: [address] [place] [address] Performed By: #### 2 885-2 ####[facility] LABIA [id number] [place] [address] [place] Protein [Mass/volume] in Ser um or Plasmaon 09-19-2023 Protein [Mass/Vol] 5.6 g/dL 6.3-8.0 [facility] RBC Auto (Bld) [#/Vol]on RBC (Bld) [#/Vol] 3.07 10*6/uL 4.20-6.00 [facility] Serum or plasma alpha 1 glob ulin measurement by electrophoresis (mass/volume)on 09-19-2023 Alpha 1 globulin Elph [Mass/Vol] 0.25 g/dL 0.18-0.43 [facility] Serum or plasma alpha 2 glob ulin measurement by electrophoresis (mass/volume)on 09-19-2023 Alpha 2 globulin Elph [Mass/Vol] 0.64 g/dL 0.42-0.98 [facility] Serum or plasma anion gap de terminationon 09-19-2023 Anion gap [Moles/Vol] 6 mmol/L 9-18 [facility] Serum or plasma beta globuli n measurement by electrophoresis (mass/volume)on 09-19-2023 Beta globulin Elph [Mass/Vol] 0.76 g/dL 0.61-1.17 [facility] Serum or plasma gamma globul in measurement by electrophoresis (mass/volume)on 09-19-2023 Gamma globulin Elph [Mass/Vol] 0.52 g/dL 0.53-1.51 [facility] PSA, [employer] 09-17-2023 Prostatic Spec. Ag 8.40 ng/mL High 0.00-4.00 [facility] Comment on above: Result Comment: The iPinYou ECLIA assay is used. Results obtained with different assay methods cannot be used interchangeably. Performed By: #### P SAD #### [place] [address] [place] [address] [employer]: Brennan Daniel MD Albumin [Mass/volume] in Ser um or Plasmaon 09-06-2023 Albumin [Mass/Vol] 3.19 g/dL 3.43-5.41 [facility] Basophils Auto (Bld) [#/Vol] on 09-06-2023 Basophils (Bld) [#/Vol] 0.07 10*3/uL <0.11 [facility] Basophils/100 WBC Auto (Bld) on 09-06-2023 Basophils/100 WBC (Bld) 0.7 % F [facility] Blood manual differential co mment interpretation narrativeon 09-06-2023 Manual differential comment Aashish (Bld) [Interp] Auto [facility] CBC W Auto Differential pane l (Bld)on 09-06-2023 Basophils (Bld) [#/Vol] 0.07 10*3/uL <0.11 k/uL [facility] Basophils/100 WBC (Bld) 0.7 % C [facility] Differential cell count method Nom (Bld) Auto [facility] Eosinophils (Bld) [#/Vol] 0.38 10*3/uL <0.46 k/uL [facility] Eosinophils/100 WBC (Bld) 3.6 % [facility] Erythrocyte distribution width (RBC) [Ratio] 13.6 % 11.5 - 15.0 % [facility] Hematocrit (Bld) [Volume fraction] 33.8 % Low 39.0 - 51.0 % [facility] Hemoglobin (Bld) [Mass/Vol] 11.0 g/dL Low 13.0 - 17.0 g/dL [facility] Immature granulocytes (Bld) [#/Vol] 0.06 10*3/uL <0.10 k/uL [facility] Immature granulocytes/100 WBC (Bld) 0.6 % [facility] Lymphocytes (Bld) [#/Vol] 1.51 10*3/uL 1.00 - 4.00 k/uL [facility] Lymphocytes/100 WBC (Bld) 14.3 % [facility] MCH (RBC) [Entitic mass] 37.5 pg High 26. 0 - 34.0 pg [facility] MCHC (RBC) [Mass/Vol] 32.5 g/dL 30.5 - 36.0 g/dL [facility] MCV (RBC) [Entitic vol] 115.4 fL High 80.0 - 100.0 fL [facility] Monocytes (Bld) [#/Vol] 1.52 10*3/uL High <0.87 k/uL [facility] Monocytes/100 WBC (Bld) 14.4 % [facility] Neutrophils (Bld) [#/Vol] 7.01 10*3/uL 1.45 - 7.50 k/uL [facility] Neutrophils/100 WBC (Bld) 66.4 % [facility] Nucleated RBC (Bld) [#/Vol] <0.01 k/uL [facility] Nucleated RBC/100 WBC (Bld) [Ratio] 0.0 /100 WBC [facility] Platelet mean volume (Bld) [Entitic vol] 10.2 fL 9.0 - 12.7 fL [facility] Platelets (Bld) [#/Vol] 219 10*3/uL 150 - 400 k/uL [facility] RBC (Bld) [#/Vol] 2.93 10*6/uL Low 4.20 - 6.0 0 m/uL [facility] WBC (Bld) [#/Vol] 10.55 10*3/uL 3.70 - 11.00 k/uL [facility] Basophils (Bld) [#/Vol] 0.07 10*3/uL Normal <0.11 [facility] Comment on above: Order Comment: Speci men Type: BLOOD SPECIMENOrdering Facility: [facility] Address: [address] [place] [address] Performed By: #### 5 7021-8 ####[facility] LABCLIA [id number] [place] [address] Basophils/100 WBC (Bld) 0.7 % Normal [facility] Comment on above: Order Comment: Speci men Type: BLOOD SPECIMENOrdering Facility: [facility] Address: [address] [place] [address] Performed By: #### 5 7021-8 ####[facility] LABCLIA [id number] [place] [address] Differential cell count method Nom (Bld) Auto Normal [facility] Comment on above: Order Comment: Speci men Type: BLOOD SPECIMENOrdering Facility: [facility] Address: [address] [place] [address] Performed By: #### 5 7021-8 ####[facility] LABCLIA [id number] [place] [address] Eosinophils (Bld) [#/Vol] 0.38 10*3/uL Normal <0.46 [facility] Comment on above: Order Comment: Speci men Type: BLOOD SPECIMENOrdering Facility: [facility] Address: [address] [place] [address] Performed By: #### 5 7021-8 ####[facility] LABCLIA [id number] [place] [address] Eosinophils/100 WBC (Bld) 3.6 % Normal [facility] Comment on above: Order Comment: Speci men Type: BLOOD SPECIMENOrdering Facility: [facility] Address: [address] [place] [address] Performed By: #### 5 7021-8 ####[facility] LABCLIA [id number] [place] [address] Erythrocyte distribution width (RBC) [Ratio] 13.6 % Normal 11.5-15.0 [facility] Comment on above: Order Comment: Speci men Type: BLOOD SPECIMENOrdering Facility: [facility] Address: [address] [place] [address] Performed By: #### 5 7021-8 ####[facility] LABCLIA [id number] [place] [address] Hematocrit (Bld) [Volume fraction] 33.8 % Low 39.0-51.0 [facility] Comment on above: Order Comment: Speci men Type: BLOOD SPECIMENOrdering Facility: [facility] Address: [address] [place] [address] Performed By: #### 5 7021-8 ####[facility] LABIA [id number] [place] [address] Hemoglobin (Bld) [Mass/Vol] 11.0 g/dL Low 13.0-17.0 [facility] Comment on above: Order Comment: Speci men Type: BLOOD SPECIMENOrdering Facility: [facility] Address: [address] [place] [address] Performed By: #### 5 7021-8 ####[facility] LABIA [id number] [place] [address] Immature granulocytes (Bld) [#/Vol] 0.06 10*3/uL Normal <0.10 [facility] Comment on above: Order Comment: Speci men Type: BLOOD SPECIMENOrdering Facility: [facility] Address: [address] [place] [address] Performed By: #### 5 7021-8 ####[facility] LABIA [id number] [place] [address] Immature granulocytes/100 WBC (Bld) 0.6 % Normal [facility] Comment on above: Order Comment: Speci men Type: BLOOD SPECIMENOrdering Facility: [facility] Address: [address] [place] [address] Performed By: #### 5 7021-8 ####[facility] LABCLIA [id number] [place] [address] Lymphocytes (Bld) [#/Vol] 1.51 10*3/uL Normal 1.00-4.00 [facility] Comment on above: Order Comment: Speci men Type: BLOOD SPECIMENOrdering Facility: [facility] Address: [address] [place] [address] Performed By: #### 5 7021-8 ####[facility] LABCLIA [id number] [place] [address] Lymphocytes/100 WBC (Bld) 14.3 % Normal [facility] Comment on above: Order Comment: Speci men Type: BLOOD SPECIMENOrdering Facility: [facility] Address: [address] [place] [address] Performed By: #### 5 7021-8 ####[facility] LABCLIA [id number] [place] [address] MCH (RBC) [Entitic mass] 37.5 pg High 26.0-34.0 [facility] Comment on above: Order Comment: Speci men Type: BLOOD SPECIMENOrdering Facility: [facility] Address: [address] [place] [address] Performed By: #### 5 7021-8 ####[facility] LABCLIA [id number] [place] [address] MCHC (RBC) [Mass/Vol] 32.5 g/dL Normal 30.5-36.0 [facility] Comment on above: Order Comment: Speci men Type: BLOOD SPECIMENOrdering Facility: [facility] Address: [address] [place] [address] Performed By: #### 5 7021-8 ####[facility] LABCLIA [id number] [place] [address] MCV (RBC) [Entitic vol] 115.4 fL High 80.0-100.0 C [facility] Comment on above: Order Comment: Speci men Type: BLOOD SPECIMENOrdering Facility: [facility] Address: [address] [place] [address] Performed By: #### 5 7021-8 ####[facility] LABCLIA [id number] [place] [address] Monocytes (Bld) [#/Vol] 1.52 10*3/uL High <0.87 [facility] Comment on above: Order Comment: Speci men Type: BLOOD SPECIMENOrdering Facility: [facility] Address: [address] [place] [address] Performed By: #### 5 7021-8 ####[facility] LABCLIA [id number] [place] [address] Monocytes/100 WBC (Bld) 14.4 % Normal [facility] Comment on above: Order Comment: Speci men Type: BLOOD SPECIMENOrdering Facility: [facility] Address: [address] [place] [address] Performed By: #### 5 7021-8 ####[facility] LABCLIA [id number] [place] [address] Neutrophils (Bld) [#/Vol] 7.01 10*3/uL Normal 1.45-7.50 [facility] Comment on above: Order Comment: Speci men Type: BLOOD SPECIMENOrdering Facility: [facility] Address: [address] [place] [address] Performed By: #### 5 7021-8 ####[facility] LABCLIA [id number] [place] [address] Neutrophils/100 WBC (Bld) 66.4 % Normal [facility] Comment on above: Order Comment: Speci men Type: BLOOD SPECIMENOrdering Facility: [facility] Address: [address] [place] [address] Performed By: #### 5 7021-8 ####[facility] LABCLIA [id number] [place] [address] Nucleated RBC (Bld) [#/Vol] 10*3/uL Normal <0.01 [facility] Comment on above: Order Comment: Speci men Type: BLOOD SPECIMENOrdering Facility: [facility] Address: [address] [place] [address] Performed By: #### 5 7021-8 ####[facility] LABCLIA [id number] [place] [address] Nucleated RBC/100 WBC (Bld) [Ratio] 0.0 /100 WBC Normal [facility] Comment on above: Order Comment: Speci men Type: BLOOD SPECIMENOrdering Facility: [facility] Address: [address] [place] [address] Performed By: #### 5 7021-8 ####[facility] LABCLIA [id number] [place] [address] Platelet mean volume (Bld) [Entitic vol] 10.2 fL Normal 9.0-12.7 [facility] Comment on above: Order Comment: Speci men Type: BLOOD SPECIMENOrdering Facility: [facility] Address: [address] [place] [address] Performed By: #### 5 7021-8 ####[facility] LABCLIA [id number] [place] [address] Platelets (Bld) [#/Vol] 219 10*3/uL Normal 150-400 [facility] Comment on above: Order Comment: Speci men Type: BLOOD SPECIMENOrdering Facility: [facility] Address: [address] [place] [address] Performed By: #### 5 7021-8 ####[facility] LABCLIA [id number] [place] [address] RBC (Bld) [#/Vol] 2.93 10*6/uL Low 4.20-6.00 [facility] Comment on above: Order Comment: Speci men Type: BLOOD SPECIMENOrdering Facility: [facility] Address: [address] [place] [address] Performed By: #### 5 7021-8 ####[facility] LABCLIA [id number] [place] [address] WBC (Bld) [#/Vol] 10.55 10*3/uL Normal 3.70-11.00 [facility] Comment on above: Order Comment: Speci men Type: BLOOD SPECIMENOrdering Facility: [facility] Address: [address] [place] [address] Performed By: #### 5 7021-8 ####[facility] LABCLIA [id number] [place] [address] CNOVSPon 09-06-2023 CNOVSP Normal [facility] Comprehensive metabolic 2000 panelon 09-06-2023 Albumin [Mass/Vol] 3.5 g/dL Low 3.9 - 4.9 g/dL [facility] ALP [Catalytic activity/Vol] 95 U/L 38 - 113 U/L [facility] ALT [Catalytic activity/Vol] 17 U/L 10 - 54 U/L [facility] Anion gap [Moles/Vol] 8 mmol/L Low 9 - 18 mmol/L [facility] AST [Catalytic activity/Vol] 20 U/L 14 - 40 U/L [facility] Bilirubin [Mass/Vol] 0.3 mg/dL 0.2 - 1 .3 mg/dL [facility] Calcium [Mass/Vol] 8.7 mg/dL 8.5 - 10. 2 mg/dL [facility] Chloride [Moles/Vol] 104 mmol/L 97 - 10 5 mmol/L [facility] CO2 [Moles/Vol] 26 mmol/L 22 - 30 mmol/L [facility] Creatinine [Mass/Vol] 1.34 mg/dL High 0.73 - 1.22 mg/dL [facility] Estimated Glomerular Filtration Rate 53 mL/min/1.73m Low >=60 mL/min/1.73 m [facility] Glucose [Mass/Vol] 120 mg/dL High 74 - 99 mg/dL [facility] Potassium [Moles/Vol] 4.4 mmol/L 3.7 - 5.1 mmol/L [facility] Protein [Mass/Vol] 5.6 g/dL Low 6.3 - 8.0 g/dL [facility] Sodium [Moles/Vol] 138 mmol/L 136 - 144 mmol/L [facility] Urea nitrogen [Mass/Vol] 22 mg/dL 9 - 24 mg/dL [facility] Albumin [Mass/Vol] 3.5 g/dL Low 3.9-4.9 [facility] Comment on above: Order Comment: Speci men Type: BLOOD SPECIMENOrdering Facility: [facility] Address: [address] [place] [address] Performed By: #### 2 4323-8 ####[facility] LABCLIA [id number] [place] [address] ALP [Catalytic activity/Vol] 95 U/L Normal 38-113 [facility] Comment on above: Order Comment: Speci men Type: BLOOD SPECIMENOrdering Facility: [facility] Address: [address] [place] [address] Performed By: #### 2 4323-8 ####[facility] LABCLIA [id number] [place] [address] ALT [Catalytic activity/Vol] 17 U/L Normal 10-54 [facility] Comment on above: Order Comment: Speci men Type: BLOOD SPECIMENOrdering Facility: [facility] Address: [address] [place] [address] Performed By: #### 2 4323-8 ####[facility] LABCLIA [id number] [place] [address] Anion gap [Moles/Vol] 8 mmol/L Low 9-18 [facility] Comment on above: Order Comment: Speci men Type: BLOOD SPECIMENOrdering Facility: [facility] Address: [address] [place] [address] Performed By: #### 2 4323-8 ####[facility] LABCLIA [id number] [place] [address] AST [Catalytic activity/Vol] 20 U/L Normal 14-40 [facility] Comment on above: Order Comment: Speci men Type: BLOOD SPECIMENOrdering Facility: [facility] Address: [address] [place], [place] [address] Performed By: #### 2 4323-8 ####[facility] LABCLIA [id number] [place] [address] Bilirubin [Mass/Vol] 0.3 mg/dL Normal 0.2-1.3 [facility] Comment on above: Order Comment: Speci men Type: BLOOD SPECIMENOrdering Facility: [facility] Address: [address] [place] [address] Performed By: #### 2 4323-8 ####[facility] LABCLIA [id number] [place] [address] Calcium [Mass/Vol] 8.7 mg/dL Normal 8.5-10.2 [facility] Comment on above: Order Comment: Speci men Type: BLOOD SPECIMENOrdering Facility: [facility] Address: [address] [place] [address] Performed By: #### 2 4323-8 ####[facility] LABCLIA [id number] [place] [address] Chloride [Moles/Vol] 104 mmol/L Normal 97-105 [facility] Comment on above: Order Comment: Speci men Type: BLOOD SPECIMENOrdering Facility: [facility] Address: [address] [place], [place] [address] Performed By: #### 2 4323-8 ####[facility] LABCLIA [id number] [place] [address] CO2 [Moles/Vol] 26 mmol/L Normal 22-30 [facility] Comment on above: Order Comment: Speci men Type: BLOOD SPECIMENOrdering Facility: [facility] Address: [address] [place], [place] [address] Performed By: #### 2 4323-8 ####[facility] LABCLIA [id number] [place] [address] Creatinine [Mass/Vol] 1.34 mg/dL High 0.73-1.22 [facility] Comment on above: Order Comment: Speci men Type: BLOOD SPECIMENOrdering Facility: [facility] Address: [address] [place] [address] Performed By: #### 2 4323-8 ####[facility] LABCLIA [id number] [place] [address] Creatinine and Glomerular filtration rate.predicted panel (S/P/Bld) 53 mL/min/1.73m??? Low >=60 [facility] Comment on above: Order Comment: Speci men Type: BLOOD SPECIMENOrdering Facility: [facility] Address: [address] [place] [address] Result Comment: Janae mated Glomerular Filtration Rate (eGFR) is calculated using the 2020 CKD-EPI creatinine equation. This equation utilizes serum creatinine, sex, and age as parameters. The creatinine assay has traceable calibration to isotope dilution-mass spectrometry. Refer to KDIGO guidelines for clinical interpretation. In patients with unstable renal function, e.g. those with acute kidney injury, the eGFR may not accurately reflect actual GFR. Performed By: #### 2 4323-8 ####[facility] LABCLIA [id number] [place] [address] Glucose [Mass/Vol] 120 mg/dL High 74-99 [facility] Comment on above: Order Comment: Speci men Type: BLOOD SPECIMENOrdering Facility: [facility] Address: [address] [place] [address] Result Comment: The [place] [employer] (ADA) provides guidance for cutoff values for fasting glucose and random glucose. The ADA defines fasting as no caloric intake for at least 8 hours. Fasting plasma glucose results between 100 to 125 mg/dL indicate increased risk for diabetes (prediabetes).Fasting plasma glucose results greater than or equal to 126 mg/dL meet the criteria for diagnosis of diabetes. In the absence of unequivocal hyperglycemia, results should be confirmed by repeat testing. In a patient with classic symptoms of hyperglycemia or hyperglycemic crisis, random plasma glucose results greater than or equal to 200 mg/dL meet the criteria for diagnosis of diabetes.Reference: Standards of Medical Care in Diabetes 2016, [place] [employer]. Diabetes Care. 2016.39(Suppl 1). Performed By: #### 2 4323-8 ####[facility] LABCLIA [id number] [place] [address] Potassium [Moles/Vol] 4.4 mmol/L Normal 3.7-5.1 [facility] Comment on above: Order Comment: Speci men Type: BLOOD SPECIMENOrdering Facility: [facility] Address: [address] [place] [address] Performed By: #### 2 4323-8 ####[facility] LABIA [id number] [place] [address] Protein [Mass/Vol] 5.6 g/dL Low 6.3-8.0 [facility] Comment on above: Order Comment: Speci men Type: BLOOD SPECIMENOrdering Facility: [facility] Address: [address] [place] [address] Performed By: #### 2 4323-8 ####[facility] LABCLIA [id number] [place] [address] Sodium [Moles/Vol] 138 mmol/L Normal 136-144 [facility] Comment on above: Order Comment: Speci men Type: BLOOD SPECIMENOrdering Facility: [facility] Address: [address] [place] [address] Performed By: #### 2 4323-8 ####[facility] LABCLIA [id number] [place] [address] Urea nitrogen [Mass/Vol] 22 mg/dL Normal 9-24 [facility] Comment on above: Order Comment: Speci men Type: BLOOD SPECIMENOrdering Facility: [facility] Address: [address] [place] [address] Performed By: #### 2 4323-8 ####[facility] LABCLIA [id number] [place] [address] Eosinophils/100 WBC Auto (Bl d)on 09-06-2023 Eosinophils/100 WBC (Bld) 3.6 % [facility] Erythrocyte distribution wid th Auto (RBC) [Ratio]on 09-06-2023 Erythrocyte distribution width (RBC) [Ratio] 13.6 % 11.5-15.0 [facility] Hematocrit Auto (Bld) [Volum e fraction]on 09-06-2023 Hematocrit (Bld) [Volume fraction] 33.8 % 39.0-51.0 [facility] Hemoglobin [Mass/volume] in Bloodon 09-06-2023 Hemoglobin (Bld) [Mass/Vol] 11.0 g/dL 13.0-17.0 [facility] IMMUNOFIXATION SCREEN, SERUM on 09-06-2023 INTERPRETATION (MPA) Atypical restricted bands are present in the IgG and lambda regions. Consistent with IgG lambda monoclonal gammopathy. Normal [facility] Comment on above: Order Comment: Speci men Type: BLOOD SPECIMENOrdering Facility: [facility] Address: [address] [place] [address] Performed By: #### I FES ####[facility] LABCLIA [id number] [place] [address] [place] MPA RESULT M protein is present. Abnormal No M protein is identified. [facility] Comment on above: Order Comment: Speci men Type: BLOOD SPECIMENOrdering Facility: [facility] Address: [address] [place] [address] Performed By: #### I FESC ####[facility] LABIA [id number] [place] [address] [place] STAFF REVIEW (MPA) Reviewed by Malou Wahl MD Normal [facility] Comment on above: Order Comment: Speci men Type: BLOOD SPECIMENOrdering Facility: [facility] Address: [address] [place] [address] Performed By: #### I FESC ####[facility] LABCLIA [id number] [place] [address] [place] IMMUNOGLOBULINS GAMon 2023 IgA [Mass/Vol] 107 mg/dL Normal 70-400 [facility] Comment on above: Order Comment: Speci men Type: BLOOD SPECIMENOrdering Facility: [facility] Address: [address] [place] [address] Performed By: #### S ERIMM ####[facility] LABCLIA [id number] [place] [address] [place] IgG [Mass/Vol] 604 mg/dL Low 700-1600 [facility] Comment on above: Order Comment: Speci men Type: BLOOD SPECIMENOrdering Facility: [facility] Address: [address] [place] [address] Performed By: #### S ERIMM ####[facility] LABCLIA [id number] [place] [address] [place] IgM [Mass/Vol] 9 mg/dL Low 40-230 [facility] Comment on above: Order Comment: Speci men Type: BLOOD SPECIMENOrdering Facility: [facility] Address: [address] [place] [address] Performed By: #### S ERIMM ####[facility] LABCLIA [id number] [place] [address] [place] IgA [Mass/volume] in Serum o r Plasmaon 09-06-2023 IgA [Mass/Vol] 107 mg/dL 70-400 [facility] IgG [Mass/volume] in Serum o r Plasmaon 09-06-2023 IgG [Mass/Vol] 604 mg/dL 700-1600 [facility] IgM [Mass/volume] in Serum o r Plasmaon 09-06-2023 IgM [Mass/Vol] 9 mg/dL 40-230 [facility] Immunoglobulin light chains. kappa.free [Mass/volume] in Serumon 09-06-2023 Immunoglobulin light chains.kappa.free (S) [Mass/Vol] 13.4 mg/L 3.3-19.4 [facility] Comment on above: Rarely, increased se rum free light chains levels may not be detected or accurately quantified due to prozone phenomenon or in high viscosity samples using this immunoturbidimetric assay. Correlation with other laboratory results and clinical findings is recommended. The [place] Free Light Chain was performed using the Binding Site Optilite immunoturbidimetric method. Result obtained with different assay methods or kits cannot be used interchangeably. Immunoglobulin light chains. kappa.free/Immunoglobulin light chains.lambda.free [Fransisca 09-06-2023 Immunoglobulin light chains.kappa.free/Immuno globulin light chains.lambda.free (S) [Mass ratio] 1.79 0.26-1.65 [facility] Immunoglobulin light chains. lambda.free [Mass/volume] in Serum or Plasmaon 09-06-2023 Immunoglobulin light chains.lambda.free [Mass/Vol] 7.5 mg/L 5.7-26.3 [facility] Comment on above: Rarely, increased se rum free light chains levels may not be detected or accurately quantified due to prozone phenomenon or in high viscosity samples using this immunoturbidimetric assay. Correlation with other laboratory results and clinical findings is recommended. The Lambda Free Light Chain was performed using the Binding Site Optilite immunoturbidimetric method. Result obtained with different assay methods or kits cannot be used interchangeably. KAPPA/HERNANDEZ,FREE,SERon 2023 Immunoglobulin light chains.kappa.free (S) [Mass/Vol] 13.4 mg/L Normal 3.3-19.4 [facility] Comment on above: Order Comment: Speci men Type: BLOOD SPECIMENOrdering Facility: [facility] Address: [address] [place] [address] Result Comment: Rare ly, increased serum free light chains levels may not be detected or accurately quantified due to prozone phenomenon or in high viscosity samples using this immunoturbidimetric assay. Correlation with other laboratory results and clinical findings is recommended.The [place] Free Light Chain was performed using the Binding Site Optilite immunoturbidimetric method. Result obtained with different assay methods or kits cannot be used interchangeably. Performed By: #### K LFRS ####[facility] LABCLIA [id number] [place] [address] [place] Immunoglobulin light chains.kappa/Immunoglobu natanael light chains.lambda (S) [Mass ratio] 1.79 High 0.26-1.65 [facility] Comment on above: Order Comment: Speci men Type: BLOOD SPECIMENOrdering Facility: [facility] Address: [address] [place] [address] Performed By: #### K LFRS ####[facility] LABCLIA [id number] [place] [address] [place] Immunoglobulin light chains.lambda.free [Mass/Vol] 7.5 mg/L Normal 5.7-26.3 [facility] Comment on above: Order Comment: Speci men Type: BLOOD SPECIMENOrdering Facility: [facility] Address: [address] [place] [address] Result Comment: Rare ly, increased serum free light chains levels may not be detected or accurately quantified due to prozone phenomenon or in high viscosity samples using this immunoturbidimetric assay. Correlation with other laboratory results and clinical findings is recommended.The Lambda Free Light Chain was performed using the Binding Site Optilite immunoturbidimetric method. Result obtained with different assay methods or kits cannot be used interchangeably. Performed By: #### K LFRS ####[facility] LABCLIA [id number] [place] [address] [place] Laboratory - Chemistry and C hemistry - challengeon 09-06-2023 Albumin [Mass/Vol] 3.5 g/dL 3.9-4.9 [facility] ALP [Catalytic activity/Vol] 95 U/L 38-113 [facility] ALT [Catalytic activity/Vol] 17 U/L 10-54 [facility] AST [Catalytic activity/Vol] 20 U/L 14-40 [facility] Bilirubin [Mass/Vol] 0.3 mg/dL 0.2-1.3 [facility] Calcium [Mass/Vol] 8.7 mg/dL 8.5-10.2 [facility] Chloride [Moles/Vol] 104 mmol/L 97-105 [facility] CO2 [Moles/Vol] 26 mmol/L 22-30 [facility] Creatinine [Mass/Vol] 1.34 mg/dL 0.73-1.22 [facility] Glucose [Mass/Vol] 120 mg/dL 74-99 [facility] Comment on above: The [place] Diab[employer] s Association (ADA) provides guidance for cutoff values for fasting glucose and random glucose. The ADA defines fasting as no caloric intake for at least 8 hours. Fasting plasma glucose results between 100 to 125 mg/dL indicate increased risk for diabetes (prediabetes).Fasting plasma glucose results greater than or equal to 126 mg/dL meet the criteria for diagnosis of diabetes. In the absence of unequivocal hyperglycemia, results should be confirmed by repeat testing. In a patient with classic symptoms of hyperglycemia or hyperglycemic crisis, random plasma glucose results greater than or equal to 200 mg/dL meet the criteria for diagnosis of diabetes.Reference: Standards of Medical Care in Diabetes 2016, [place] [employer]. Diabetes Care. 2016.39(Suppl 1). Potassium [Moles/Vol] 4.4 mmol/L 3.7-5.1 [facility] Protein [Mass/Vol] 0.23 g/dL <=0.00 [facility] Sodium [Moles/Vol] 138 mmol/L 136-144 [facility] Urea nitrogen [Mass/Vol] 22 mg/dL 9-24 [facility] Laboratory - Hematology and Cell countson 09-06-2023 Eosinophils (Bld) [#/Vol] 0.38 10*3/uL <0.46 [facility] Immature granulocytes (Bld) [#/Vol] 0.06 10*3/uL <0.10 [facility] Immature granulocytes/100 WBC (Bld) 0.6 % [facility] Leukocytes [#/volume] correc tony for nucleated erythrocytes in Blood by Automated counon 09-06-2023 WBC corrected for nucl RBC Auto (Bld) [#/Vol] 10.55 k/uL 3.70-11.00 [facility] Lymphocytes Auto (Bld) [#/Vo l]on 09-06-2023 Lymphocytes (Bld) [#/Vol] 1.51 10*3/uL 1.00-4.00 [facility] Lymphocytes/100 WBC Auto (Bl d)on 09-06-2023 Lymphocytes/100 WBC (Bld) 14.3 % [facility] MCH Auto (RBC) [Entitic mass ]on 09-06-2023 MCH (RBC) [Entitic mass] 37.5 pg 26.0-34.0 [facility] MCHC Auto (RBC) [Mass/Vol]on 09-06-2023 MCHC (RBC) [Mass/Vol] 32.5 g/dL 30.5-36.0 [facility] MCV Auto (RBC) [Entitic vol] on 09-06-2023 MCV (RBC) [Entitic vol] 115.4 fL 80.0-100.0 [facility] Monocytes Auto (Bld) [#/Vol] on 09-06-2023 Monocytes (Bld) [#/Vol] 1.52 10*3/uL <0.87 [facility] Monocytes/100 WBC Auto (Bld) on 09-06-2023 Monocytes/100 WBC (Bld) 14.4 % [facility] Neutrophils Auto (Bld) [#/Vo l]on 09-06-2023 Neutrophils (Bld) [#/Vol] 7.01 10*3/uL 1.45-7.50 [facility] Neutrophils/100 WBC Auto (Bl d)on 09-06-2023 Neutrophils/100 WBC (Bld) 66.4 % [facility] No Panel Informationon 09-05 Estimated GFR (CKD-EPI) 53 mL/min/1.73m??? >=60 [facility] Comment on above: Estimated Glomerular Filtration Rate (eGFR) is calculated using the 2020 CKD-EPI creatinine equation. This equation utilizes serum creatinine, sex, and age as parameters. The creatinine assay has traceable calibration to isotope dilution-mass spectrometry. Refer to KDIGO guidelines for clinical interpretation. In patients with unstable renal function, e.g. those with acute kidney injury, the eGFR may not accurately reflect actual GFR. Immunofixation Interpretation [facility] Leuk/Lymph Sign Pathologist (Misc) Reviewed by Malou Wahl MD [facility] Miscellaneous Test 6 Gamma Fraction 1 [facility] Miscellaneous Test Comment Monoclonal Protein analysis (immunofixation) is not indicated. [facility] Miscellaneous Test Comment Reviewed by Malou Wahl MD [facility] Protein Electrophoresis Interpret [facility] Protein Electrophoresis Note An M protein is identified on protein electrophoresis. No definitive M protein is identified on protein electrophor esis. [facility] Serum Immunofixation M protein is present. No M protein is identified. [facility] Nucleated RBC Auto (Bld) [#/ Vol]on 09-06-2023 Nucleated RBC (Bld) [#/Vol] 10*3/uL <0.01 [facility] Nucleated erythrocytes [Pres ence] in Blood by Automated counton 09-06-2023 Nucleated RBC Auto Ql (Bld) 0.0 /100{WBC} [facility] PROTEIN ELECTROPHORESIS SERU M WITH ANI (P)on 09-06-2023 Albumin [Mass/Vol] 3.19 g/dL Low 3.43-5.41 [facility] Comment on above: Order Comment: Speci men Type: BLOOD SPECIMENOrdering Facility: [facility] Address: [address] [place] [address] Performed By: #### L [id number] ####[facility] LABCLIA [id number] [place] [address] [place] Alpha 1 globulin Elph [Mass/Vol] 0.26 g/dL Normal 0.18-0.43 [facility] Comment on above: Order Comment: Speci men Type: BLOOD SPECIMENOrdering Facility: [facility] Address: [address] [place] [address] Performed By: #### L [id number] ####[facility] LABCLIA [id number] [place] [address] [place] Alpha 2 globulin Elph [Mass/Vol] 0.61 g/dL Normal 0.42-0.98 [facility] Comment on above: Order Comment: Speci men Type: BLOOD SPECIMENOrdering Facility: [facility] Address: [address] [place] [address] Performed By: #### L [id number] ####[facility] LABCLIA [id number] [address] [place] Beta globulin Elph [Mass/Vol] 0.66 g/dL Normal 0.61-1.17 [facility] Comment on above: Order Comment: Speci men Type: BLOOD SPECIMENOrdering Facility: [facility] Address: [address] [place] [address] Performed By: #### L [id number] ####[facility] LABCLIA [id number] [place] [address] [place] COMMENT (SERUM PROT ELECTRO) Monoclonal Protein analysis (immunofixation) is not indicated. Normal [facility] Comment on above: Order Comment: Speci men Type: BLOOD SPECIMENOrdering Facility: [facility] Address: [address] [place] [address] Performed By: #### L [id number] ####[facility] LABCLIA [id number] [address] [place] Gamma globulin Elph [Mass/Vol] 0.48 g/dL Low 0.53-1.51 [facility] Comment on above: Order Comment: Speci men Type: BLOOD SPECIMENOrdering Facility: [facility] Address: [address] [place] [address] Performed By: #### L [id number] ####[facility] LABCLIA [id number] [address] [place] INTERPRETATION COMMENT FOR PROTEIN ELECTROPHORESIS See separate immunofixation report for characterization of monoclonal gammopathy. Normal [facility] Comment on above: Order Comment: Speci men Type: BLOOD SPECIMENOrdering Facility: [facility] Address: [address] [place] [address] Performed By: #### L [id number] ####[facility] LABCLIA [id number] [address] [place] M-PROTEIN LOCATION Gamma Fraction 1 Normal [facility] Comment on above: Order Comment: Speci men Type: BLOOD SPECIMENOrdering Facility: [facility] Address: [address] [place] [address] Performed By: #### L [id number] ####[facility] [id number] [address] [place] Protein Fractions [Interp] An M protein is identified on protein electrophoresis. Abnormal No definitive M protein is identified on protein electrophor esis. [facility] Comment on above: Order Comment: Speci men Type: BLOOD SPECIMENOrdering Facility: [facility] Address: [address] [place] [address] Performed By: #### L [id number] ####[facility] [id number] [address] [place] Protein.monoclonal Elph [Mass/Vol] 0.23 g/dL High <=0.00 [facility] Comment on above: Order Comment: Speci men Type: BLOOD SPECIMENOrdering Facility: [facility] Address: [address] [place] [address] Performed By: #### L [id number] ####[facility] [id number] [place] [address] [place] SPE STAFF REVIEW Reviewed by Malou Wahl MD Normal [facility] Comment on above: Order Comment: Speci men Type: BLOOD SPECIMENOrdering Facility: [facility] Address: [address] [place] [address] Performed By: #### L [id number] ####[facility] LABIA [id number] [place] [address] [place] Platelet mean volume Auto (B ld) [Entitic vol]on 09-06-2023 Platelet mean volume (Bld) [Entitic vol] 10.2 fL 9.0-12.7 [facility] Platelets Auto (Bld) [#/Vol] on 09-06-2023 Platelets (Bld) [#/Vol] 219 10*3/uL 150-400 [facility] Prot SerPl-mCncon 09-06-2023 Protein [Mass/Vol] 5.2 g/dL Low 6.3-8.0 [facility] Comment on above: Order Comment: Speci men Type: BLOOD SPECIMENOrdering Facility: [facility] Address: [address] [place] [address] Performed By: #### 2 885-2 ####[facility] LABCLIA [id number] [facility] [id number] [place] [address] [place] Protein [Mass/volume] in Ser um or Plasmaon 09-06-2023 Protein [Mass/Vol] 5.2 g/dL 6.3-8.0 [facility] RBC Auto (Bld) [#/Vol]on RBC (Bld) [#/Vol] 2.93 10*6/uL 4.20-6.00 [facility] Serum or plasma alpha 1 glob ulin measurement by electrophoresis (mass/volume)on 09-06-2023 Alpha 1 globulin Elph [Mass/Vol] 0.26 g/dL 0.18-0.43 [facility] Serum or plasma alpha 2 glob ulin measurement by electrophoresis (mass/volume)on 09-06-2023 Alpha 2 globulin Elph [Mass/Vol] 0.61 g/dL 0.42-0.98 [facility] Serum or plasma anion gap de terminationon 09-06-2023 Anion gap [Moles/Vol] 8 mmol/L 9-18 [facility] Serum or plasma beta globuli n measurement by electrophoresis (mass/volume)on 09-06-2023 Beta globulin Elph [Mass/Vol] 0.66 g/dL 0.61-1.17 [facility] Serum or plasma gamma globul in measurement by electrophoresis (mass/volume)on 09-06-2023 Gamma globulin Elph [Mass/Vol] 0.48 g/dL 0.53-1.51 [facility] Basic metabolic 2000 panelon 08-28-2023 Anion gap [Moles/Vol] 9 mmol/L 9 - 18 mmol/L [facility] Calcium [Mass/Vol] 8.6 mg/dL 8.5 - 10. 2 mg/dL [facility] Chloride [Moles/Vol] 104 mmol/L 97 - 10 5 mmol/L [facility] CO2 [Moles/Vol] 27 mmol/L 22 - 30 mmol/L [facility] Creatinine [Mass/Vol] 1.36 mg/dL High 0.73 - 1.22 mg/dL [facility] Estimated Glomerular Filtration Rate 52 mL/min/1.73m Low >=60 mL/min/1.73 m [facility] Glucose [Mass/Vol] 117 mg/dL High 74 - 99 mg/dL [facility] Potassium [Moles/Vol] 4.0 mmol/L 3.7 - 5.1 mmol/L [facility] Sodium [Moles/Vol] 140 mmol/L 136 - 144 mmol/L [facility] Urea nitrogen [Mass/Vol] 21 mg/dL 9 - 24 mg/dL [facility] Anion gap [Moles/Vol] 9 mmol/L Normal 9-18 [facility] Comment on above: Order Comment: Speci men Type: BLOOD SPECIMENOrdering Facility: [facility] Address: [address] [place] [address] Performed By: #### 2 4321-2 ####[facility] LABCLIA [id number] [place] [address] Calcium [Mass/Vol] 8.6 mg/dL Normal 8.5-10.2 [facility] Comment on above: Order Comment: Speci men Type: BLOOD SPECIMENOrdering Facility: [facility] Address: [address] [place] [address] Performed By: #### 2 4321-2 ####[facility] LABCLIA [id number] [place] [address] Chloride [Moles/Vol] 104 mmol/L Normal 97-105 [facility] Comment on above: Order Comment: Speci men Type: BLOOD SPECIMENOrdering Facility: [facility] Address: [address] [place], [place] [address] Performed By: #### 2 4321-2 ####[facility] LABCLIA [id number] [place] [address] CO2 [Moles/Vol] 27 mmol/L Normal 22-30 [facility] Comment on above: Order Comment: Speci men Type: BLOOD SPECIMENOrdering Facility: [facility] Address: [address] [place] [address] Performed By: #### 2 4321-2 ####[facility] LABCLIA [id number] [place] [address] Creatinine [Mass/Vol] 1.36 mg/dL High 0.73-1.22 [facility] Comment on above: Order Comment: Speci men Type: BLOOD SPECIMENOrdering Facility: [facility] Address: [address] [place] [address] Performed By: #### 2 4321-2 ####[facility] LABCLIA [id number] [place] [address] Creatinine and Glomerular filtration rate.predicted panel (S/P/Bld) 52 mL/min/1.73m??? Low >=60 [facility] Comment on above: Order Comment: Speci men Type: BLOOD SPECIMENOrdering Facility: [facility] Address: [address] [place] [address] Result Comment: Janae mated Glomerular Filtration Rate (eGFR) is calculated using the 2020 CKD-EPI creatinine equation. This equation utilizes serum creatinine, sex, and age as parameters. The creatinine assay has traceable calibration to isotope dilution-mass spectrometry. Refer to KDIGO guidelines for clinical interpretation. In patients with unstable renal function, e.g. those with acute kidney injury, the eGFR may not accurately reflect actual GFR. Performed By: #### 2 4321-2 ####[facility] LABCLIA [id number] [place] [address] Glucose [Mass/Vol] 117 mg/dL High 74-99 [facility] Comment on above: Order Comment: Speci men Type: BLOOD SPECIMENOrdering Facility: [facility] Address: [address] [place], [place] [address] Result Comment: The [place] Diabetes [employer] (ADA) provides guidance for cutoff values for fasting glucose and random glucose. The ADA defines fasting as no caloric intake for at least 8 hours. Fasting plasma glucose results between 100 to 125 mg/dL indicate increased risk for diabetes (prediabetes).Fasting plasma glucose results greater than or equal to 126 mg/dL meet the criteria for diagnosis of diabetes. In the absence of unequivocal hyperglycemia, results should be confirmed by repeat testing. In a patient with classic symptoms of hyperglycemia or hyperglycemic crisis, random plasma glucose results greater than or equal to 200 mg/dL meet the criteria for diagnosis of diabetes.Reference: Standards of Medical Care in Diabetes 2016, [place] [employer]. Diabetes Care. 2016.39(Suppl 1). Performed By: #### 2 4321-2 ####[facility] LABCLIA [id number] [place] [address] Potassium [Moles/Vol] 4.0 mmol/L Normal 3.7-5.1 [facility] Comment on above: Order Comment: Speci men Type: BLOOD SPECIMENOrdering Facility: [facility] Address: [address] [place], [place] [address] Performed By: #### 2 4321-2 ####[facility] LABCLIA [id number] [place] [address] Sodium [Moles/Vol] 140 mmol/L Normal 136-144 [facility] Comment on above: Order Comment: Speci men Type: BLOOD SPECIMENOrdering Facility: [facility] Address: [address] [place] [address] Performed By: #### 2 4321-2 ####[facility] LABCLIA [id number] [place] [address] Urea nitrogen [Mass/Vol] 21 mg/dL Normal 9-24 [facility] Comment on above: Order Comment: Speci men Type: BLOOD SPECIMENOrdering Facility: [facility] Address: [address] [place] [address] Performed By: #### 2 4321-2 ####[facility] LABCLIA [id number] [place] [address] Basophils Auto (Bld) [#/Vol] on 08-28-2023 Basophils (Bld) [#/Vol] 0.05 10*3/uL <0.11 [facility] Basophils/100 WBC Auto (Bld) on 08-28-2023 Basophils/100 WBC (Bld) 0.6 % F [facility] Blood manual differential co mment interpretation narrativeon 08-28-2023 Manual differential comment Aashish (Bld) [Interp] Auto [facility] CBC W Auto Differential pane l (Bld)on 08-28-2023 Basophils (Bld) [#/Vol] 0.05 10*3/uL <0.11 k/uL [facility] Basophils/100 WBC (Bld) 0.6 % [facility] Differential cell count method Nom (Bld) Auto [facility] Eosinophils (Bld) [#/Vol] 0.25 10*3/uL <0.46 k/uL [facility] Eosinophils/100 WBC (Bld) 3.1 % [facility] Erythrocyte distribution width (RBC) [Ratio] 14.7 % 11.5 - 15.0 % [facility] Hematocrit (Bld) [Volume fraction] 31.9 % Low 39.0 - 51.0 % [facility] Hemoglobin (Bld) [Mass/Vol] 10.6 g/dL Low 13.0 - 17.0 g/dL [facility] Immature granulocytes (Bld) [#/Vol] 0.07 10*3/uL <0.10 k/uL [facility] Immature granulocytes/100 WBC (Bld) 0.9 % [facility] Lymphocytes (Bld) [#/Vol] 1.75 10*3/uL 1.00 - 4.00 k/uL [facility] Lymphocytes/100 WBC (Bld) 21.7 % [facility] MCH (RBC) [Entitic mass] 38.5 pg High 26. 0 - 34.0 pg [facility] MCHC (RBC) [Mass/Vol] 33.2 g/dL 30.5 - 36.0 g/dL [facility] MCV (RBC) [Entitic vol] 116.0 fL High 80.0 - 100.0 fL [facility] Monocytes (Bld) [#/Vol] 1.53 10*3/uL High <0.87 k/uL [facility] Monocytes/100 WBC (Bld) 19.0 % [facility] Neutrophils (Bld) [#/Vol] 4.41 10*3/uL 1.45 - 7.50 k/uL [facility] Neutrophils/100 WBC (Bld) 54.7 % [facility] Nucleated RBC (Bld) [#/Vol] <0.01 k/uL [facility] Nucleated RBC/100 WBC (Bld) [Ratio] 0.0 /100 WBC [facility] Platelet mean volume (Bld) [Entitic vol] 9.7 fL 9.0 - 12.7 fL [facility] Platelets (Bld) [#/Vol] 227 10*3/uL 150 - 400 k/uL [facility] RBC (Bld) [#/Vol] 2.75 10*6/uL Low 4.20 - 6.0 0 m/uL [facility] WBC (Bld) [#/Vol] 8.06 10*3/uL 3.70 - 11.00 k/uL [facility] Basophils (Bld) [#/Vol] 0.05 10*3/uL Normal <0.11 [facility] Comment on above: Order Comment: Speci men Type: BLOOD SPECIMENOrdering Facility: [facility] Address: [address] [place] [address] Performed By: #### 5 7021-8 ####[facility] LABCLIA [id number] [place] [address] Basophils/100 WBC (Bld) 0.6 % Normal [facility] Comment on above: Order Comment: Speci men Type: BLOOD SPECIMENOrdering Facility: [facility] Address: [address] [place] [address] Performed By: #### 5 7021-8 ####[facility] LABCLIA [id number] [place] [address] Differential cell count method Nom (Bld) Auto Normal [facility] Comment on above: Order Comment: Speci men Type: BLOOD SPECIMENOrdering Facility: [facility] Address: [address] [place] [address] Performed By: #### 5 7021-8 ####[facility] LABCLIA [id number] [place] [address] Eosinophils (Bld) [#/Vol] 0.25 10*3/uL Normal <0.46 [facility] Comment on above: Order Comment: Speci men Type: BLOOD SPECIMENOrdering Facility: [facility] Address: [address] [place] [address] Performed By: #### 5 7021-8 ####[facility] LABCLIA [id number] [place] [address] Eosinophils/100 WBC (Bld) 3.1 % Normal [facility] Comment on above: Order Comment: Speci men Type: BLOOD SPECIMENOrdering Facility: [facility] Address: [address] [place] [address] Performed By: #### 5 7021-8 ####[facility] LABCLIA [id number] [place] [address] Erythrocyte distribution width (RBC) [Ratio] 14.7 % Normal 11.5-15.0 [facility] Comment on above: Order Comment: Speci men Type: BLOOD SPECIMENOrdering Facility: [facility] Address: [address] [place] [address] Performed By: #### 5 7021-8 ####[facility] LABCLIA [id number] [place] [address] Hematocrit (Bld) [Volume fraction] 31.9 % Low 39.0-51.0 [facility] Comment on above: Order Comment: Speci men Type: BLOOD SPECIMENOrdering Facility: [facility] Address: [address] [place] [address] Performed By: #### 5 7021-8 ####[facility] LABCLIA [id number] [place] [address] Hemoglobin (Bld) [Mass/Vol] 10.6 g/dL Low 13.0-17.0 [facility] Comment on above: Order Comment: Speci men Type: BLOOD SPECIMENOrdering Facility: [facility] Address: [address] [place] [address] Performed By: #### 5 7021-8 ####[facility] LABCLIA [id number] [place] [address] Immature granulocytes (Bld) [#/Vol] 0.07 10*3/uL Normal <0.10 [facility] Comment on above: Order Comment: Speci men Type: BLOOD SPECIMENOrdering Facility: [facility] Address: [address] [place] [address] Performed By: #### 5 7021-8 ####[facility] LABCLIA [id number] [place] [address] Immature granulocytes/100 WBC (Bld) 0.9 % Normal [facility] Comment on above: Order Comment: Speci men Type: BLOOD SPECIMENOrdering Facility: [facility] Address: [address] [place] [address] Performed By: #### 5 7021-8 ####[facility] LABCLIA [id number] [place] [address] Lymphocytes (Bld) [#/Vol] 1.75 10*3/uL Normal 1.00-4.00 [facility] Comment on above: Order Comment: Speci men Type: BLOOD SPECIMENOrdering Facility: [facility] Address: [address] [place] [address] Performed By: #### 5 7021-8 ####[facility] LABCLIA [id number] [place] [address] Lymphocytes/100 WBC (Bld) 21.7 % Normal [facility] Comment on above: Order Comment: Speci men Type: BLOOD SPECIMENOrdering Facility: [facility] Address: [address] [place] [address] Performed By: #### 5 7021-8 ####[facility] LABCLIA [id number] [place] [address] MCH (RBC) [Entitic mass] 38.5 pg High 26.0-34.0 [facility] Comment on above: Order Comment: Speci men Type: BLOOD SPECIMENOrdering Facility: [facility] Address: [address] [place] [address] Performed By: #### 5 7021-8 ####[facility] LABCLIA [id number] [place] [address] MCHC (RBC) [Mass/Vol] 33.2 g/dL Normal 30.5-36.0 [facility] Comment on above: Order Comment: Speci men Type: BLOOD SPECIMENOrdering Facility: [facility] Address: [address] [place] [address] Performed By: #### 5 7021-8 ####[facility] LABCLIA [id number] [place] [address] MCV (RBC) [Entitic vol] 116.0 fL High 80.0-100.0 [facility] Comment on above: Order Comment: Speci men Type: BLOOD SPECIMENOrdering Facility: [facility] Address: [address] [place] [address] Performed By: #### 5 7021-8 ####[facility] LABCLIA [id number] [place] [address] Monocytes (Bld) [#/Vol] 1.53 10*3/uL High <0.87 [facility] Comment on above: Order Comment: Speci men Type: BLOOD SPECIMENOrdering Facility: [facility] Address: [address] [place] [address] Performed By: #### 5 7021-8 ####[facility] LABCLIA [id number] [place] [address] Monocytes/100 WBC (Bld) 19.0 % Normal [facility] Comment on above: Order Comment: Speci men Type: BLOOD SPECIMENOrdering Facility: [facility] Address: [address] [place] [address] Performed By: #### 5 7021-8 ####[facility] LABCLIA [id number] [place] [address] Neutrophils (Bld) [#/Vol] 4.41 10*3/uL Normal 1.45-7.50 [facility] Comment on above: Order Comment: Speci men Type: BLOOD SPECIMENOrdering Facility: [facility] Address: [address] [place] [address] Performed By: #### 5 7021-8 ####[facility] LABCLIA [id number] [place] [address] Neutrophils/100 WBC (Bld) 54.7 % Normal [facility] Comment on above: Order Comment: Speci men Type: BLOOD SPECIMENOrdering Facility: [facility] Address: [address] [place] [address] Performed By: #### 5 7021-8 ####[facility] LABCLIA [id number] [place] [address] Nucleated RBC (Bld) [#/Vol] 10*3/uL Normal <0.01 [facility] Comment on above: Order Comment: Speci men Type: BLOOD SPECIMENOrdering Facility: [facility] Address: [address] [place] [address] Performed By: #### 5 7021-8 ####[facility] LABCLIA [id number] [place] [address] Nucleated RBC/100 WBC (Bld) [Ratio] 0.0 /100 WBC Normal [facility] Comment on above: Order Comment: Speci men Type: BLOOD SPECIMENOrdering Facility: [facility] Address: [address] [place] [address] Performed By: #### 5 7021-8 ####[facility] LABCLIA [id number] [place] [address] Platelet mean volume (Bld) [Entitic vol] 9.7 fL Normal 9.0-12.7 [facility] Comment on above: Order Comment: Speci men Type: BLOOD SPECIMENOrdering Facility: [facility] Address: [address] [place] [address] Performed By: #### 5 7021-8 ####[facility] LABCLIA [id number] [place] [address] Platelets (Bld) [#/Vol] 227 10*3/uL Normal 150-400 [facility] Comment on above: Order Comment: Speci men Type: BLOOD SPECIMENOrdering Facility: [facility] Address: [address] [place] [address] Performed By: #### 5 7021-8 ####[facility] LABCLIA [id number] [place] [address] RBC (Bld) [#/Vol] 2.75 10*6/uL Low 4.20-6.00 [facility] Comment on above: Order Comment: Speci men Type: BLOOD SPECIMENOrdering Facility: [facility] Address: [address] [place] [address] Performed By: #### 5 7021-8 ####[facility] LABCLIA [id number] [place] [address] WBC (Bld) [#/Vol] 8.06 10*3/uL Normal 3.70-11.00 [facility] Comment on above: Order Comment: Speci men Type: BLOOD SPECIMENOrdering Facility: [facility] Address: [address] [place] [address] Performed By: #### 5 7021-8 ####[facility] LABCLIA [id number] [place] [address] CNOVSPon 08-28-2023 CNOVSP Normal [facility] Eosinophils/100 WBC Auto (Bl d)on 08-28-2023 Eosinophils/100 WBC (Bld) 3.1 % [facility] Erythrocyte distribution wid th Auto (RBC) [Ratio]on 08-28-2023 Erythrocyte distribution width (RBC) [Ratio] 14.7 % 11.5-15.0 [facility] Hematocrit Auto (Bld) [Volum e fraction]on 08-28-2023 Hematocrit (Bld) [Volume fraction] 31.9 % 39.0-51.0 [facility] Hemoglobin [Mass/volume] in Bloodon 08-28-2023 Hemoglobin (Bld) [Mass/Vol] 10.6 g/dL 13.0-17.0 [facility] Laboratory - Chemistry and C hemistry - challengeon 08-28-2023 Calcium [Mass/Vol] 8.6 mg/dL 8.5-10.2 [facility] Chloride [Moles/Vol] 104 mmol/L 97-105 [facility] CO2 [Moles/Vol] 27 mmol/L 22-30 [facility] Creatinine [Mass/Vol] 1.36 mg/dL 0.73-1.22 [facility] Glucose [Mass/Vol] 117 mg/dL 74-99 [facility] Comment on above: The [place] Diab[employer] s Association (ADA) provides guidance for cutoff values for fasting glucose and random glucose. The ADA defines fasting as no caloric intake for at least 8 hours. Fasting plasma glucose results between 100 to 125 mg/dL indicate increased risk for diabetes (prediabetes).Fasting plasma glucose results greater than or equal to 126 mg/dL meet the criteria for diagnosis of diabetes. In the absence of unequivocal hyperglycemia, results should be confirmed by repeat testing. In a patient with classic symptoms of hyperglycemia or hyperglycemic crisis, random plasma glucose results greater than or equal to 200 mg/dL meet the criteria for diagnosis of diabetes.Reference: Standards of Medical Care in Diabetes 2016, [place] [employer]. Diabetes Care. 2016.39(Suppl 1). Potassium [Moles/Vol] 4.0 mmol/L 3.7-5.1 [facility] Sodium [Moles/Vol] 140 mmol/L 136-144 [facility] Urea nitrogen [Mass/Vol] 21 mg/dL 9-24 [facility] - Hematology and Cell countson 08-28-2023 Eosinophils (Bld) [#/Vol] 0.25 10*3/uL <0.46 [facility] Immature granulocytes (Bld) [#/Vol] 0.07 10*3/uL <0.10 [facility] Immature granulocytes/100 WBC (Bld) 0.9 % [facility] Leukocytes [#/volume] correc tony for nucleated erythrocytes in Blood by Automated counon 08-28-2023 WBC corrected for nucl RBC Auto (Bld) [#/Vol] 8.06 k/uL 3.70-11.00 [facility] Lymphocytes Auto (Bld) [#/Vo l]on 08-28-2023 Lymphocytes (Bld) [#/Vol] 1.75 10*3/uL 1.00-4.00 [facility] Lymphocytes/100 WBC Auto (Bl d)on 08-28-2023 Lymphocytes/100 WBC (Bld) 21.7 % [facility] MCH Auto (RBC) [Entitic mass ]on 08-28-2023 MCH (RBC) [Entitic mass] 38.5 pg 26.0-34.0 [facility] MCHC Auto (RBC) [Mass/Vol]on 08-28-2023 MCHC (RBC) [Mass/Vol] 33.2 g/dL 30.5-36.0 [facility] MCV Auto (RBC) [Entitic vol] on 08-28-2023 MCV (RBC) [Entitic vol] 116.0 fL 80.0-100.0 [facility] Monocytes Auto (Bld) [#/Vol] on 08-28-2023 Monocytes (Bld) [#/Vol] 1.53 10*3/uL <0.87 [facility] Monocytes/100 WBC Auto (Bld) on 08-28-2023 Monocytes/100 WBC (Bld) 19.0 % [facility] Neutrophils Auto (Bld) [#/Vo l]on 08-28-2023 Neutrophils (Bld) [#/Vol] 4.41 10*3/uL 1.45-7.50 [facility] Neutrophils/100 WBC Auto (Bl d)on 08-28-2023 Neutrophils/100 WBC (Bld) 54.7 % [facility] No Panel Informationon 08-28 Estimated GFR (CKD-EPI) 52 mL/min/1.73m??? >=60 [facility] Comment on above: Estimated Glomerular Filtration Rate (eGFR) is calculated using the 2020 CKD-EPI creatinine equation. This equation utilizes serum creatinine, sex, and age as parameters. The creatinine assay has traceable calibration to isotope dilution-mass spectrometry. Refer to KDIGO guidelines for clinical interpretation. In patients with unstable renal function, e.g. those with acute kidney injury, the eGFR may not accurately reflect actual GFR. Nucleated RBC Auto (Bld) [#/ Vol]on 08-28-2023 Nucleated RBC (Bld) [#/Vol] 10*3/uL <0.01 [facility] Nucleated erythrocytes [Pres ence] in Blood by Automated counton 08-28-2023 Nucleated RBC Auto Ql (Bld) 0.0 /100{WBC} [facility] [facility] Platelet mean volume Auto (B ld) [Entitic vol]on 08-28-2023 Platelet mean volume (Bld) [Entitic vol] 9.7 fL 9.0-12.7 [facility] Platelets Auto (Bld) [#/Vol] on 08-28-2023 Platelets (Bld) [#/Vol] 227 10*3/uL 150-400 [facility] RBC Auto (Bld) [#/Vol]on RBC (Bld) [#/Vol] 2.75 10*6/uL 4.20-6.00 [facility] Serum or plasma anion gap de terminationon 08-28-2023 Anion gap [Moles/Vol] 9 mmol/L 9-18 [facility] CNPNon 08-23-2023 CNPN Normal [facility] Albumin [Mass/volume] in Ser um or Plasmaon 08-21-2023 Albumin [Mass/Vol] 2.90 g/dL 3.43-5.41 [facility] Anisocytosis LM Ql (Bld)on 0 08-21-2023 Anisocytosis Ql (Bld) Present [facility] Basophils Auto (Bld) [#/Vol] on 08-21-2023 Basophils (Bld) [#/Vol] 0.09 10*3/uL <0.11 [facility] Basophils/100 WBC Auto (Bld) on 08-21-2023 Basophils/100 WBC (Bld) 1.0 % F [facility] Blood manual differential co mment interpretation narrativeon 08-21-2023 Manual differential comment Aashish (Bld) [Interp] Manual [facility] CBC W Auto Differential pane l (Bld)on 08-21-2023 Anisocytosis Ql (Bld) Present Normal [facility] Comment on above: Order Comment: Speci men Type: BLOOD SPECIMENOrdering Facility: [facility] Address: [address] [place] [address] Performed By: #### 5 7021-8 ####[facility] LABCLIA [id number] [address] LABCLIA [id number] [place] [address] [place] Basophils (Bld) [#/Vol] 0.09 10*3/uL Normal <0.11 [facility] Comment on above: Order Comment: Speci men Type: BLOOD SPECIMENOrdering Facility: [facility] Address: [address] [place] [address] Performed By: #### 5 7021-8 ####[facility] LABCLIA [id number] [address] LABCLIA [id number] [place] [address] [place] Basophils/100 WBC (Bld) 1.0 % Normal [facility] Comment on above: Order Comment: Speci men Type: BLOOD SPECIMENOrdering Facility: [facility] Address: [address] [place] [address] Performed By: #### 5 7021-8 ####[facility] LABCLIA [id number] [place] [address] LABCLIA [id number] [place] [address] [place] Differential cell count method Nom (Bld) Manual Normal [facility] Comment on above: Order Comment: Speci men Type: BLOOD SPECIMENOrdering Facility: [facility] Address: [address] [place] [address] Performed By: #### 5 7021-8 ####[facility] LABCLIA [id number] [address] LABCLIA [id number] [place] [address] [place] Eosinophils (Bld) [#/Vol] 0.37 10*3/uL Normal <0.46 [facility] Comment on above: Order Comment: Speci men Type: BLOOD SPECIMENOrdering Facility: [facility] Address: [address] [place] [address] Performed By: #### 5 7021-8 ####[facility] LABCLIA [id number] [address] LABCLIA [id number] [place] [address] [place] Eosinophils/100 WBC (Bld) 4.0 % Normal [facility] Comment on above: Order Comment: Speci men Type: BLOOD SPECIMENOrdering Facility: [facility] Address: [address] [place] [address] Performed By: #### 5 7021-8 ####[facility] LABCLIA [id number] [address] LABCLIA [id number] [place] [address] [place] Erythrocyte distribution width (RBC) [Ratio] 15.9 % High 11.5-15.0 [facility] Comment on above: Order Comment: Speci men Type: BLOOD SPECIMENOrdering Facility: [facility] Address: [address] [place] [address] Performed By: #### 5 7021-8 ####[facility] LABCLIA [id number] [address] LABCLIA [id number] [place] [address] [place] Hematocrit (Bld) [Volume fraction] 31.7 % Low 39.0-51.0 [facility] Comment on above: Order Comment: Speci men Type: BLOOD SPECIMENOrdering Facility: [facility] Address: [address] [place] [address] Performed By: #### 5 7021-8 ####[facility] LABCLIA [id number] [address] LABCLIA [id number] [place] [address] [place] Hemoglobin (Bld) [Mass/Vol] 10.3 g/dL Low 13.0-17.0 [facility] Comment on above: Order Comment: Speci men Type: BLOOD SPECIMENOrdering Facility: [facility] Address: [address] [place] [address] Performed By: #### 5 7021-8 ####[facility] LABCLIA [id number] [address] LABCLIA [id number] [place] [address] [place] Lymphocytes (Bld) [#/Vol] 1.56 10*3/uL Normal 1.00-4.00 [facility] Comment on above: Order Comment: Speci men Type: BLOOD SPECIMENOrdering Facility: [facility] Address: [address] [place] [address] Performed By: #### 5 7021-8 ####[facility] LABCLIA [id number] [place] [address] LABCLIA [id number] [place] [address] [place] Lymphocytes/100 WBC (Bld) 17.0 % Normal [facility] Comment on above: Order Comment: Speci men Type: BLOOD SPECIMENOrdering Facility: [facility] Address: [address] [place] [address] Performed By: #### 5 7021-8 ####[facility] LABCLIA [id number] [address] LABCLIA [id number] [place] [address] [place] MCH (RBC) [Entitic mass] 37.6 pg High 26.0-34.0 [facility] Comment on above: Order Comment: Speci men Type: BLOOD SPECIMENOrdering Facility: [facility] Address: [address] [place] [address] Performed By: #### 5 7021-8 ####[facility] LABCLIA [id number] [address] LABCLIA [id number] [place] [address] [place] MCHC (RBC) [Mass/Vol] 32.5 g/dL Normal 30.5-36.0 [facility] Comment on above: Order Comment: Speci men Type: BLOOD SPECIMENOrdering Facility: [facility] Address: [address] [place] [address] Performed By: #### 5 7021-8 ####[facility] LABCLIA [id number] [address] LABCLIA [id number] [place] [address] [place] MCV (RBC) [Entitic vol] 115.7 fL High 80.0-100.0 [facility] Comment on above: Order Comment: Speci men Type: BLOOD SPECIMENOrdering Facility: [facility] Address: [address] [place] [address] Performed By: #### 5 7021-8 ####[facility] LABCLIA [id number] [address] LABCLIA [id number] [place] [address] [place] Monocytes (Bld) [#/Vol] 1.29 10*3/uL High <0.87 [facility] Comment on above: Order Comment: Speci men Type: BLOOD SPECIMENOrdering Facility: [facility] Address: [address] [place] [address] Performed By: #### 5 7021-8 ####[facility] LABCLIA [id number] [address] LABCLIA [id number] [place] [address] [place] Monocytes/100 WBC (Bld) 14.0 % Normal [facility] Comment on above: Order Comment: Speci men Type: BLOOD SPECIMENOrdering Facility: [facility] Address: [address] [place] [address] Performed By: #### 5 7021-8 ####[facility] LABCLIA [id number] [address] LABCLIA [id number] [place] [address] [place] Neutrophils (Bld) [#/Vol] 5.89 10*3/uL Normal 1.45-7.50 [facility] Comment on above: Order Comment: Speci men Type: BLOOD SPECIMENOrdering Facility: [facility] Address: [address] [place] [address] Performed By: #### 5 7021-8 ####[facility] LABCLIA [id number] [address] LABCLIA [id number] [place] [address] [place] Neutrophils/100 WBC (Bld) 64.0 % Normal [facility] Comment on above: Order Comment: Speci men Type: BLOOD SPECIMENOrdering Facility: [facility] Address: [address] [place] [address] Performed By: #### 5 7021-8 ####[facility] LABCLIA [id number] [address] LABCLIA [id number] [place] [address] [place] Nucleated RBC (Bld) [#/Vol] 10*3/uL Normal <0.01 [facility] Comment on above: Order Comment: Speci men Type: BLOOD SPECIMENOrdering Facility: [facility] Address: [address] [place] [address] Performed By: #### 5 7021-8 ####[facility] LABCLIA [id number] [address] LABCLIA [id number] [place] [address] [place] Nucleated RBC/100 WBC (Bld) [Ratio] 0.0 /100 WBC Normal [facility] Comment on above: Order Comment: Speci men Type: BLOOD SPECIMENOrdering Facility: [facility] Address: [address] [place] [address] Performed By: #### 5 7021-8 ####[facility] LABCLIA [id number] [address] LABCLIA [id number] [place] [address] [place] Platelet mean volume (Bld) [Entitic vol] 9.4 fL Normal 9.0-12.7 [facility] Comment on above: Order Comment: Speci men Type: BLOOD SPECIMENOrdering Facility: [facility] Address: [address] [place] [address] Performed By: #### 5 7021-8 ####[facility] LABCLIA [id number] [place] [address] LABCLIA [id number] [facility] [address] [address] [place] Platelets (Bld) [#/Vol] 233 10*3/uL Normal 150-400 [facility] Comment on above: Order Comment: Speci men Type: BLOOD SPECIMENOrdering Facility: [facility] Address: [address] [place] [address] Performed By: #### 5 7021-8 ####[facility] LABCLIA [id number] [address] LABCLIA [id number] [facility] [place] [address] [place] Platelets Estimate (Bld) [#/Vol] Adequate Normal [facility] Comment on above: Order Comment: Speci men Type: BLOOD SPECIMENOrdering Facility: [facility] Address: [address] [place] [address] Performed By: #### 5 7021-8 ####[facility] LABCLIA [id number] [place] [address] LABCLIA [id number] [facility] [place] [address] [place] RBC (Bld) [#/Vol] 2.74 10*6/uL Low 4.20-6.00 [facility] Comment on above: Order Comment: Speci men Type: BLOOD SPECIMENOrdering Facility: [facility] Address: [address] [place] [address] Performed By: #### 5 7021-8 ####[facility] LABCLIA [id number] [place] [address] LABCLIA [id number] [place] [address] [place] RED CELL MORPH Reviewed: see result s of individual morphologies Normal [facility] Comment on above: Order Comment: Speci men Type: BLOOD SPECIMENOrdering Facility: [facility] Address: [address] [place] [address] Performed By: #### 5 7021-8 ####[facility] LABCLIA [id number] [address] LABCLIA [id number] [place] [address] [place] WBC (Bld) [#/Vol] 9.20 10*3/uL Normal 3.70-11.00 [facility] Comment on above: Order Comment: Speci men Type: BLOOD SPECIMENOrdering Facility: [facility] Address: [address] [place] [address] Performed By: #### 5 7021-8 ####[facility] LABCLIA [id number] [address] LABCLIA [id number] [place] [address] [place] CNOVSPon 08-21-2023 CNOVSP Normal [facility] CNPNon 08-21-2023 CNPN Normal [facility] Comprehensive metabolic 2000 panelon 08-21-2023 Albumin [Mass/Vol] 3.3 g/dL Low 3.9 - 4.9 g/dL [facility] ALP [Catalytic activity/Vol] 100 U/L 38 - 113 U/L [facility] ALT [Catalytic activity/Vol] 13 U/L 10 - 54 U/L [facility] Anion gap [Moles/Vol] 7 mmol/L Low 9 - 18 mmol/L [facility] AST [Catalytic activity/Vol] 16 U/L 14 - 40 U/L [facility] Bilirubin [Mass/Vol] 0.5 mg/dL 0.2 - 1 .3 mg/dL [facility] Calcium [Mass/Vol] 9.2 mg/dL 8.5 - 10. 2 mg/dL [facility] Chloride [Moles/Vol] 103 mmol/L 97 - 10 5 mmol/L [facility] CO2 [Moles/Vol] 28 mmol/L 22 - 30 mmol/L [facility] Creatinine [Mass/Vol] 1.41 mg/dL High 0.73 - 1.22 mg/dL [facility] Estimated Glomerular Filtration Rate 50 mL/min/1.73m Low >=60 mL/min/1.73 m [facility] Glucose [Mass/Vol] 128 mg/dL High 74 - 99 mg/dL [facility] Potassium [Moles/Vol] 4.2 mmol/L 3.7 - 5.1 mmol/L [facility] Protein [Mass/Vol] 5.4 g/dL Low 6.3 - 8.0 g/dL [facility] Sodium [Moles/Vol] 138 mmol/L 136 - 144 mmol/L [facility] Urea nitrogen [Mass/Vol] 23 mg/dL 9 - 24 mg/dL [facility] Albumin [Mass/Vol] 3.3 g/dL Low 3.9-4.9 [facility] Comment on above: Order Comment: Speci men Type: BLOOD SPECIMENOrdering Facility: [facility] Address: [address] [place] [address] Performed By: #### 2 4323-8 ####[facility] LABCLIA [id number] [place] [address] ALP [Catalytic activity/Vol] 100 U/L Normal 38-113 [facility] Comment on above: Order Comment: Speci men Type: BLOOD SPECIMENOrdering Facility: [facility] Address: [address] [place] [address] Performed By: #### 2 4323-8 ####[facility] LABCLIA [id number] [place] [address] ALT [Catalytic activity/Vol] 13 U/L Normal 10-54 [facility] Comment on above: Order Comment: Speci men Type: BLOOD SPECIMENOrdering Facility: [facility] Address: [address] [place] [address] Performed By: #### 2 4323-8 ####[facility] LABCLIA [id number] [place] [address] Anion gap [Moles/Vol] 7 mmol/L Low 9-18 [facility] Comment on above: Order Comment: Speci men Type: BLOOD SPECIMENOrdering Facility: [facility] Address: [address] [place] [address] Performed By: #### 2 4323-8 ####[facility] LABCLIA [id number] [place] [address] AST [Catalytic activity/Vol] 16 U/L Normal 14-40 [facility] Comment on above: Order Comment: Speci men Type: BLOOD SPECIMENOrdering Facility: [facility] Address: [address] [place] [address] Performed By: #### 2 4323-8 ####[facility] LABCLIA [id number] [place] [address] Bilirubin [Mass/Vol] 0.5 mg/dL Normal 0.2-1.3 [facility] Comment on above: Order Comment: Speci men Type: BLOOD SPECIMENOrdering Facility: [facility] Address: [address] [place] [address] Performed By: #### 2 4323-8 ####[facility] LABCLIA [id number] [place] [address] Calcium [Mass/Vol] 9.2 mg/dL Normal 8.5-10.2 [facility] Comment on above: Order Comment: Speci men Type: BLOOD SPECIMENOrdering Facility: [facility] Address: [address] [place] [address] Performed By: #### 2 4323-8 ####[facility] LABCLIA [id number] [place] [address] Chloride [Moles/Vol] 103 mmol/L Normal 97-105 [facility] Comment on above: Order Comment: Speci men Type: BLOOD SPECIMENOrdering Facility: [facility] Address: [address] [place] [address] Performed By: #### 2 4323-8 ####[facility] LABCLIA [id number] [place] [address] CO2 [Moles/Vol] 28 mmol/L Normal 22-30 [facility] Comment on above: Order Comment: Speci men Type: BLOOD SPECIMENOrdering Facility: [facility] Address: [address] [place] [address] Performed By: #### 2 4323-8 ####[facility] LABCLIA [id number] [place] [address] Creatinine [Mass/Vol] 1.41 mg/dL High 0.73-1.22 [facility] Comment on above: Order Comment: Speci men Type: BLOOD SPECIMENOrdering Facility: [facility] Address: [address] [place] [address] Performed By: #### 2 4323-8 ####[facility] LABCLIA [id number] [place] [address] Creatinine and Glomerular filtration rate.predicted panel (S/P/Bld) 50 mL/min/1.73m??? Low >=60 [facility] Comment on above: Order Comment: Speci men Type: BLOOD SPECIMENOrdering Facility: [facility] Address: [address] [place] [address] Result Comment: Janae mated Glomerular Filtration Rate (eGFR) is calculated using the 2020 CKD-EPI creatinine equation. This equation utilizes serum creatinine, sex, and age as parameters. The creatinine assay has traceable calibration to isotope dilution-mass spectrometry. Refer to KDIGO guidelines for clinical interpretation. In patients with unstable renal function, e.g. those with acute kidney injury, the eGFR may not accurately reflect actual GFR. Performed By: #### 2 4323-8 ####[facility] LABCLIA [id number] [place] [address] Glucose [Mass/Vol] 128 mg/dL High 74-99 [facility] Comment on above: Order Comment: Speci men Type: BLOOD SPECIMENOrdering Facility: [facility] Address: [address] [place] [address] Result Comment: The [place] [employer] (ADA) provides guidance for cutoff values for fasting glucose and random glucose. The ADA defines fasting as no caloric intake for at least 8 hours. Fasting plasma glucose results between 100 to 125 mg/dL indicate increased risk for diabetes (prediabetes).Fasting plasma glucose results greater than or equal to 126 mg/dL meet the criteria for diagnosis of diabetes. In the absence of unequivocal hyperglycemia, results should be confirmed by repeat testing. In a patient with classic symptoms of hyperglycemia or hyperglycemic crisis, random plasma glucose results greater than or equal to 200 mg/dL meet the criteria for diagnosis of diabetes.Reference: Standards of Medical Care in Diabetes 2016, [place] [employer]. Diabetes Care. 2016.39(Suppl 1). Performed By: #### 2 4323-8 ####[facility] LABCLIA [id number] [place] [address] Potassium [Moles/Vol] 4.2 mmol/L Normal 3.7-5.1 [facility] Comment on above: Order Comment: Speci men Type: BLOOD SPECIMENOrdering Facility: [facility] Address: [address] [place] [id number] Performed By: #### 2 4323-8 ####[facility] LABCLIA [id number] [place] [address] Protein [Mass/Vol] 5.4 g/dL Low 6.3-8.0 [facility] Comment on above: Order Comment: Speci men Type: BLOOD SPECIMENOrdering Facility: [facility] Address: [address] [place] [address] Performed By: #### 2 4323-8 ####[facility] LABCLIA [id number] [place] [address] Sodium [Moles/Vol] 138 mmol/L Normal 136-144 [facility] Comment on above: Order Comment: Speci men Type: BLOOD SPECIMENOrdering Facility: [facility] Address: [address] [place] [id number] Performed By: #### 2 4323-8 ####[facility] LABCLIA [id number] [place] [address] Urea nitrogen [Mass/Vol] 23 mg/dL Normal 9-24 [facility] Comment on above: Order Comment: Speci men Type: BLOOD SPECIMENOrdering Facility: [facility] Address: [address] [place] [address] Performed By: #### 2 4323-8 ####[facility] LABCLIA [id number] [place] [address] Eosinophils/100 WBC Auto (Bl d)on 08-21-2023 Eosinophils/100 WBC (Bld) 4.0 % [facility] Erythrocyte distribution wid th Auto (RBC) [Ratio]on 08-21-2023 Erythrocyte distribution width (RBC) [Ratio] 15.9 % 11.5-15.0 [facility] Hematocrit Auto (Bld) [Volum e fraction]on 08-21-2023 Hematocrit (Bld) [Volume fraction] 31.7 % 39.0-51.0 [facility] Hemoglobin [Mass/volume] in Bloodon 08-21-2023 Hemoglobin (Bld) [Mass/Vol] 10.3 g/dL 13.0-17.0 [facility] IMMUNOFIXATION SCREEN, SERUM on 08-21-2023 INTERPRETATION (MPA) Atypical restricted bands are present in the IgG and lambda regions. Consistent with IgG lambda monoclonal gammopathy. Normal [facility] Comment on above: Order Comment: Speci men Type: BLOOD SPECIMENOrdering Facility: [facility] Address: [address] [place] [address] Performed By: #### I [facility] ####[facility] LABCLIA [id number] [place] [address] [place] MPA RESULT M protein is present. Abnormal No M protein is identified. [facility] Comment on above: Order Comment: Speci men Type: BLOOD SPECIMENOrdering Facility: [facility] Address: [address] [place] [address] Performed By: #### I FES ####[facility] LABCLIA [id number] [place] [address] [place] STAFF REVIEW (MPA) Reviewed by Lexus Zelaya M.D. Normal [facility] Comment on above: Order Comment: Speci men Type: BLOOD SPECIMENOrdering Facility: [facility] Address: [address] [place] [address] Performed By: #### I FES ####[facility] LABCLIA [id number] [place] [address] [place] IMMUNOGLOBULINS GAMon 2023 IgA [Mass/Vol] 100 mg/dL 70 - 400 mg/dL [facility] IgG [Mass/Vol] 540 mg/dL Low 700 - 1,600 mg/dL [facility] IgM [Mass/Vol] 9 mg/dL Low 40 - 230 mg/dL [facility] IgA [Mass/Vol] 100 mg/dL Normal 70-400 [facility] Comment on above: Order Comment: Speci men Type: BLOOD SPECIMENOrdering Facility: [facility] Address: [address] [place] [address] Performed By: #### S ERIMM ####[facility] LABCLIA [id number] [place] [address] [place] IgG [Mass/Vol] 540 mg/dL Low 700-1600 [facility] Comment on above: Order Comment: Speci men Type: BLOOD SPECIMENOrdering Facility: [facility] Address: [address] [place] [address] Performed By: #### S ERIMM ####[facility] LABCLIA [id number] [place] [address] [place] IgM [Mass/Vol] 9 mg/dL Low 40-230 [facility] Comment on above: Order Comment: Speci men Type: BLOOD SPECIMENOrdering Facility: [facility] Address: [address] [place] [address] Performed By: #### S ERIMM ####[facility] LABCLIA [id number] [place] [id number] [place] IgA [Mass/volume] in Serum o r Plasmaon 08-21-2023 IgA [Mass/Vol] 100 mg/dL 70-400 [facility] IgG [Mass/volume] in Serum o r Plasmaon 08-21-2023 IgG [Mass/Vol] 540 mg/dL 700-1600 [facility] IgM [Mass/volume] in Serum o r Plasmaon 08-21-2023 IgM [Mass/Vol] 9 mg/dL 40-230 [facility] Immunoglobulin light chains. kappa.free [Mass/volume] in Serumon 08-21-2023 Immunoglobulin light chains.kappa.free (S) [Mass/Vol] 16.5 mg/L 3.3-19.4 [facility] Comment on above: Rarely, increased se rum free light chains levels may not be detected or accurately quantified due to prozone phenomenon or in high viscosity samples using this immunoturbidimetric assay. Correlation with other laboratory results and clinical findings is recommended. The [place] Free Light Chain was performed using the Binding Site Optilite immunoturbidimetric method. Result obtained with different assay methods or kits cannot be used interchangeably. Immunoglobulin light chains. kappa.free/Immunoglobulin light chains.lambda.free [Fransisca 08-21-2023 Immunoglobulin light chains.kappa.free/Immuno globulin light chains.lambda.free (S) [Mass ratio] 1.45 0.26-1.65 [facility] Immunoglobulin light chains. lambda.free [Mass/volume] in Serum or Plasmaon 08-21-2023 Immunoglobulin light chains.lambda.free [Mass/Vol] 11.4 mg/L 5.7-26.3 [facility] Comment on above: Rarely, increased se rum free light chains levels may not be detected or accurately quantified due to prozone phenomenon or in high viscosity samples using this immunoturbidimetric assay. Correlation with other laboratory results and clinical findings is recommended. The Lambda Free Light Chain was performed using the Binding Site Optilite immunoturbidimetric method. Result obtained with different assay methods or kits cannot be used interchangeably. KAPPA/HERNANDEZ,FREE,SERon 2023 Immunoglobulin light chains.kappa.free (S) [Mass/Vol] 16.5 mg/L Normal 3.3-19.4 [facility] Comment on above: Order Comment: Speci men Type: BLOOD SPECIMENOrdering Facility: [facility] Address: [address] [place] [address] Result Comment: Rare ly, increased serum free light chains levels may not be detected or accurately quantified due to prozone phenomenon or in high viscosity samples using this immunoturbidimetric assay. Correlation with other laboratory results and clinical findings is recommended.The [place] Free Light Chain was performed using the Binding Site Optilite immunoturbidimetric method. Result obtained with different assay methods or kits cannot be used interchangeably. Performed By: #### K LFRS ####[facility] LABCLIA [id number] [place] [address] [place] Immunoglobulin light chains.kappa/Immunoglobu natanael light chains.lambda (S) [Mass ratio] 1.45 Normal 0.26-1.65 [facility] Comment on above: Order Comment: Speci [facility] Type: BLOOD SPECIMENOrdering Facility: [facility] Address: [address] [place] [address] Performed By: #### K LFRS ####[facility] LABCLIA [id number] [place] [address] [place] Immunoglobulin light chains.lambda.free [Mass/Vol] 11.4 mg/L Normal 5.7-26.3 [facility] Comment on above: Order Comment: Speci men Type: BLOOD SPECIMENOrdering Facility: [facility] Address: [address] [place] [address] Result Comment: Rare ly, increased serum free light chains levels may not be detected or accurately quantified due to prozone phenomenon or in high viscosity samples using this immunoturbidimetric assay. Correlation with other laboratory results and clinical findings is recommended.The Lambda Free Light Chain was performed using the Binding Site Optilite immunoturbidimetric method. Result obtained with different assay methods or kits cannot be used interchangeably. Performed By: #### K LFRS ####[facility] LABCLIA [id number] [place] [address] [place] Laboratory - Chemistry and C hemistry - challengeon 08-21-2023 Albumin [Mass/Vol] 3.3 g/dL 3.9-4.9 [facility] ALP [Catalytic activity/Vol] 100 U/L 38-113 [facility] ALT [Catalytic activity/Vol] 13 U/L 10-54 [facility] AST [Catalytic activity/Vol] 16 U/L 14-40 [facility] Bilirubin [Mass/Vol] 0.5 mg/dL 0.2-1.3 [facility] Calcium [Mass/Vol] 9.2 mg/dL 8.5-10.2 [facility] Chloride [Moles/Vol] 103 mmol/L 97-105 [facility] CO2 [Moles/Vol] 28 mmol/L 22-30 [facility] Creatinine [Mass/Vol] 1.41 mg/dL 0.73-1.22 [facility] Glucose [Mass/Vol] 128 mg/dL 74-99 [facility] Comment on above: The [place] Diabete s Association (ADA) provides guidance for cutoff values for fasting glucose and random glucose. The ADA defines fasting as no caloric intake for at least 8 hours. Fasting plasma glucose results between 100 to 125 mg/dL indicate increased risk for diabetes (prediabetes).Fasting plasma glucose results greater than or equal to 126 mg/dL meet the criteria for diagnosis of diabetes. In the absence of unequivocal hyperglycemia, results should be confirmed by repeat testing. In a patient with classic symptoms of hyperglycemia or hyperglycemic crisis, random plasma glucose results greater than or equal to 200 mg/dL meet the criteria for diagnosis of diabetes.Reference: Standards of Medical Care in Diabetes 2016, [place] Diabetes Association. Diabetes Care. 2016.39(Suppl 1). Potassium [Moles/Vol] 4.2 mmol/L 3.7-5.1 [facility] Protein [Mass/Vol] 0.25 g/dL <=0.00 [facility] Protein [Mass/Vol] 5.4 g/dL 6.3-8.0 [facility] Sodium [Moles/Vol] 138 mmol/L 136-144 [facility] Urea nitrogen [Mass/Vol] 23 mg/dL 9- [facility] Laboratory - Hematology and Cell countson 08-21-2023 Eosinophils (Bld) [#/Vol] 0.37 10*3/uL <0.46 [facility] Leukocytes [#/volume] correc tony for nucleated erythrocytes in Blood by Automated counon 08-21-2023 WBC corrected for nucl RBC Auto (Bld) [#/Vol] 9.20 k/uL 3.70-11.00 [facility] Lymphocytes Auto (Bld) [#/Vo l]on 08-21-2023 Lymphocytes (Bld) [#/Vol] 1.56 10*3/uL 1.00-4.00 [facility] Lymphocytes/100 WBC Auto (Bl d)on 08-21-2023 Lymphocytes/100 WBC (Bld) 17.0 % [facility] MCH Auto (RBC) [Entitic mass ]on 08-21-2023 MCH (RBC) [Entitic mass] 37.6 pg 26.0-34.0 [facility] MCHC Auto (RBC) [Mass/Vol]on 08-21-2023 MCHC (RBC) [Mass/Vol] 32.5 g/dL 30.5-36.0 [facility] MCV Auto (RBC) [Entitic vol] on 08-21-2023 MCV (RBC) [Entitic vol] 115.7 fL 80.0-100.0 [facility] Monocytes Auto (Bld) [#/Vol] on 08-21-2023 Monocytes (Bld) [#/Vol] 1.29 10*3/uL <0.87 [facility] Monocytes/100 WBC Auto (Bld) on 08-21-2023 Monocytes/100 WBC (Bld) 14.0 % [facility] Neutrophils Auto (Bld) [#/Vo l]on 08-21-2023 Neutrophils (Bld) [#/Vol] 5.89 10*3/uL 1.45-7.50 [facility] Neutrophils/100 WBC Auto (Bl d)on 08-21-2023 Neutrophils/100 WBC (Bld) 64.0 % [facility] No Panel Informationon 08-21 Estimated GFR (CKD-EPI) 50 mL/min/1.73m??? >=60 [facility] Comment on above: Estimated Glomerular Filtration Rate (eGFR) is calculated using the 2020 CKD-EPI creatinine equation. This equation utilizes serum creatinine, sex, and age as parameters. The creatinine assay has traceable calibration to isotope dilution-mass spectrometry. Refer to KDIGO guidelines for clinical interpretation. In patients with unstable renal function, e.g. those with acute kidney injury, the eGFR may not accurately reflect actual GFR. Immunofixation Interpretation [facility] Leuk/Lymph Sign Pathologist (Misc) Reviewed by Lexus Zelaya M.D. [facility] Miscellaneous Test 6 Gamma Fraction 1 [facility] Miscellaneous Test Comment Reviewed by Lexus Zelaya M.D. [facility] Normal RBC Morphology Reviewed: see resu lts of individual morphologies [facility] Protein Electrophoresis Interpret [facility] Protein Electrophoresis Note An M protein is identified on protein electrophoresis. No definitive M protein is identified on protein electrophor esis. [facility] Serum Immunofixation M protein is present. No M protein is identified. [facility] Nucleated RBC Auto (Bld) [#/ Vol]on 08-21-2023 Nucleated RBC (Bld) [#/Vol] 10*3/uL <0.01 [facility] Nucleated erythrocytes [Pres ence] in Blood by Automated counton 08-21-2023 Nucleated RBC Auto Ql (Bld) 0.0 /100{WBC} [facility] PROTEIN ELECTROPHORESIS SERU M (P)on 08-21-2023 Albumin [Mass/Vol] 2.90 g/dL Low 3.43-5.41 [facility] Comment on above: Order Comment: Speci men Type: BLOOD SPECIMENOrdering Facility: [facility] Address: [address] [place] [address] Performed By: #### L [id number] ####[facility] LABCLIA [id number] [place] [address] [place] Alpha 1 globulin Elph [Mass/Vol] 0.29 g/dL Normal 0.18-0.43 [facility] Comment on above: Order Comment: Speci men Type: BLOOD SPECIMENOrdering Facility: [facility] Address: [address] [place] [address] Performed By: #### L [id number] ####[facility] LABCLIA [id number] [place] [address] [place] Alpha 2 globulin Elph [Mass/Vol] 0.63 g/dL Normal 0.42-0.98 [facility] Comment on above: Order Comment: Speci men Type: BLOOD SPECIMENOrdering Facility: [facility] Address: [address] [place] [address] Performed By: #### L [id number] ####[facility] LABIA [id number] [place] [address] [place] Beta globulin Elph [Mass/Vol] 0.62 g/dL Normal 0.61-1.17 [facility] Comment on above: Order Comment: Speci men Type: BLOOD SPECIMENOrdering Facility: [facility] Address: [address] [place] [address] Performed By: #### L [id number] ####[facility] LABCLIA [id number] [place] [address] [place] Gamma globulin Elph [Mass/Vol] 0.45 g/dL Low 0.53-1.51 [facility] Comment on above: Order Comment: Speci men Type: BLOOD SPECIMENOrdering Facility: [facility] Address: [address] [place] [address] Performed By: #### L [id number] ####[facility] LABIA [id number] [place] [address] [place] INTERPRETATION COMMENT FOR PROTEIN ELECTROPHORESIS See separate immunofixation report for characterization of monoclonal gammopathy. Normal [facility] Comment on above: Order Comment: Speci men Type: BLOOD SPECIMENOrdering Facility: [facility] Address: [address] [place] [address] Performed By: #### L [id number] ####[facility] LABIA [id number] [place] [address] [place] M-PROTEIN LOCATION Gamma Fraction 1 Normal [facility] Comment on above: Order Comment: Speci men Type: BLOOD SPECIMENOrdering Facility: [facility] Address: [address] [place] [address] Performed By: #### L [id number] ####[facility] [id number] [place] [address] [place] Protein Fractions [Interp] An M protein is identified on protein electrophoresis. Abnormal No definitive M protein is identified on protein electrophor esis. [facility] Comment on above: Order Comment: Speci men Type: BLOOD SPECIMENOrdering Facility: [facility] Address: [address] [place] [address] Performed By: #### L [id number] ####[facility] [id number] [place] [address] [place] Protein.monoclonal Elph [Mass/Vol] 0.25 g/dL High <=0.00 [facility] Comment on above: Order Comment: Speci men Type: BLOOD SPECIMENOrdering Facility: [facility] Address: [address] [place] [address] Performed By: #### L [id number] ####[facility] LABIA [id number] [place] [id number] [place] SPE STAFF REVIEW Reviewed by Lexus Zelaya M.D. Normal [facility] Comment on above: Order Comment: Speci men Type: BLOOD SPECIMENOrdering Facility: [facility] Address: [address] [place] [address] Performed By: #### L [id number] ####[facility] LABIA [id number] [place] [address] [place] Platelet adequacy [Presence] in Blood by Light microscopyon 08-21-2023 Platelets LM Ql (Bld) Adequate [facility] Platelet mean volume Auto (B ld) [Entitic vol]on 08-21-2023 Platelet mean volume (Bld) [Entitic vol] 9.4 fL 9.0-12.7 [facility] Platelets Auto (Bld) [#/Vol] on 08-21-2023 Platelets (Bld) [#/Vol] 233 10*3/uL 150-400 [facility] Prot SerPl-mCncon 08-21-2023 Protein [Mass/Vol] 4.9 g/dL Low 6.3-8.0 [facility] Comment on above: Order Comment: Speci men Type: BLOOD SPECIMENOrdering Facility: [facility] Address: [address] [place] [address] Performed By: #### 2 [id number] ####[facility] LABCLIA [id number] [facility] [id number] [address] [place] RBC Auto (Bld) [#/Vol]on RBC (Bld) [#/Vol] 2.74 10*6/uL 4.20-6.00 [facility] Serum or plasma alpha 1 glob ulin measurement by electrophoresis (mass/volume)on 08-21-2023 Alpha 1 globulin Elph [Mass/Vol] 0.29 g/dL 0.18-0.43 [facility] Serum or plasma alpha 2 glob ulin measurement by electrophoresis (mass/volume)on 08-21-2023 Alpha 2 globulin Elph [Mass/Vol] 0.63 g/dL 0.42-0.98 [facility] Serum or plasma anion gap de terminationon 08-21-2023 Anion gap [Moles/Vol] 7 mmol/L 9-18 [facility] Serum or plasma beta globuli n measurement by electrophoresis (mass/volume)on 08-21-2023 Beta globulin Elph [Mass/Vol] 0.62 g/dL 0.61-1.17 [facility] Serum or plasma gamma globul in measurement by electrophoresis (mass/volume)on 08-21-2023 Gamma globulin Elph [Mass/Vol] 0.45 g/dL 0.53-1.51 [facility] BASIC METABOLIC PANLon 08-20 Anion gap [Moles/Vol] 6 mmol/L Normal 5-15 [facility] Comment on above: Performed By: #### C BCA, BMP, 43273-1, 82023-9, 99253-4 #### [facility] ([id number]) [address] [place] [address] Calcium [Mass/Vol] 8.4 mg/dL Low 8.5-10.5 [facility] Comment on above: Performed By: #### C BCA, BMP, 43372-3, 79809-6, 55778-0 #### [facility] ([id number]) [address] [place] [address] 41460 Chloride [Moles/Vol] 105 mmol/L Normal 98-109 [facility] Comment on above: Performed By: #### C BCA, BMP, 43514-6, 56198-8, 43697-4 #### [facility] ([id number]) [address] [place] [address] 85850 CO2 [Moles/Vol] 24 mmol/L Normal 22-32 [facility] Comment on above: Performed By: #### C BCA, BMP, 73910-8, 59664-7, 80996-3 #### [facility] ([id number]) [address] [place] [address] 49622 Creatinine [Mass/Vol] 1.31 mg/dL High 0.70-1.20 [facility] Comment on above: Result Comment: METH OD TRACEABLE TO IDMS STANDARD Performed By: #### C BCA, BMP, 82796-1, 92901-0, 65734-9 #### [facility] ([id number]) [address] [place] [address] 70713 GFR/1.73 sq M.predicted among non-blacks MDRD (S/P/Bld) [Vol rate/Area] 55 mL/min/{1.73_m2} Low >59 [facility] Comment on above: Result Comment: Reported eGFR is based on the CKD-EPI 2020 equation that does not use a race coefficient. Performed By: #### C BCA, BMP, 52435-9, 05133-1, 26537-0 #### [facility] ([id number]) [address] [place] [address] 25789 Glucose [Mass/Vol] 117 mg/dL High 65-99 [facility] Comment on above: Performed By: #### C BCA, BMP, 20959-4, 21253-8, 23092-2 #### [facility] ([id number]) [address] [place] [address] 63809 Potassium [Moles/Vol] 3.9 mmol/L Normal 3.5-5.0 [facility] Comment on above: Performed By: #### C BCA, BMP, 70202-1, 65634-4, 86942-5 #### [facility] ([id number]) [address] [place] [address] 87953 Sodium [Moles/Vol] 135 mmol/L Normal 134-146 [facility] Comment on above: Performed By: #### C BCA, BMP, 87416-4, 30128-2, 68318-2 #### [facility] ([id number]) [address] [place] [address] 17206 Urea nitrogen [Mass/Vol] 24 mg/dL Normal 5-27 [facility] Comment on above: Performed By: #### C BCA, BMP, 57071-7, 53723-1, 94656-5 #### [facility] ([id number]) [address] [place] [address] 08884 CBC AND AUTO DIFFon 08-20- 24 ABSOLUTE BASOPHIL 0.1 X10E9/L Normal 0.0-0.2 [facility] Comment on above: Performed By: #### C BCA, BMP, 76323-0, 15335-8, 45740-3 #### [facility] ([id number]) [address] [place] [address] 29471 Band form neutrophils/100 WBC (Bld) 2.9 % Normal [facility] Comment on above: Performed By: #### C BCA, BMP, 23814-1, 65271-6, 49275-7 #### [facility] ([id number]) [address] [place] [address] 20077 Basophils/100 WBC (Bld) 1.0 % Normal [facility] Comment on above: Performed By: #### C BCA, BMP, 51585-2, 31817-5, 86226-2 #### [facility] ([id number]) [address] [place] [address] 39605 Eosinophils (Bld) [#/Vol] 0.6 10*3/uL High 0.0-0.4 [facility] Comment on above: Performed By: #### C BCA, BMP, 78664-3, 95843-9, 43766-8 #### [facility] ([id number]) [address] [place] [address] 95870 Eosinophils/100 WBC (Bld) 5.8 % Normal [facility] Comment on above: Performed By: #### C BCA, BMP, 07819-6, 12182-4, 25765-4 #### [facility] ([id number]) [address] [place] [address] 09187 Erythrocyte distribution width (RBC) [Ratio] 16.1 % High 11.5-15.0 [facility] Comment on above: Performed By: #### C BCA, BMP, 97918-1, 38132-2, 42162-9 #### [facility] ([id number]) [address] [place] [address] 75933 Hematocrit (Bld) [Volume fraction] 30.1 % Low 39-49 [facility] Comment on above: Performed By: #### C BCA, BMP, 66943-8, 91515-0, 20824-9 #### [facility] ([id number]) [address] [place] [address] 62799 Hemoglobin (Bld) [Mass/Vol] 10.4 g/dL Low 13.0-17.0 [facility] Comment on above: Performed By: #### C BCA, BMP, 61932-4, 40697-8, 34386-1 #### [facility] ([id number]) [address] [place] [address] 43253 LYMPHOCYTE, ATYPICAL 1.9 % Normal [facility] Comment on above: Performed By: #### Lexis BCA, BMP, 74592-2, 08174-5, 45592-9 #### [facility] ([id number]) [address] [place] [address] 73943 Lymphocytes (Bld) [#/Vol] 1.8 10*3/uL Normal 1.0-3.5 [facility] Comment on above: Performed By: #### C BCA, BMP, 31415-3, 08079-1, 72478-2 #### [facility] ([id number]) [address] [place] [address] 96641 Lymphocytes/100 WBC (Bld) 16.3 % Normal [facility] Comment on above: Performed By: #### C BCA, BMP, 48980-7, 19245-0, 98260-5 #### [facility] ([id number]) [address] [place] [address] 74988 MCH (RBC) [Entitic mass] 38.9 pg High 27-34 [facility] Comment on above: Performed By: #### C BCA, BMP, 18695-3, 31622-5, 91449-0 #### [facility] ([id number]) [address] [place] [address] 48094 MCHC (RBC) [Mass/Vol] 34.5 g/dL Normal 32-36 [facility] Comment on above: Performed By: #### C BCA, BMP, 47400-4, 11956-7, 85293-1 #### [facility] ([id number]) [address] [place] [address] 91334 MCV (RBC) [Entitic vol] 113 fL High 80-100 [facility] Comment on above: Performed By: #### Lexis BCA, BMP, 38069-9, 63011-5, 07381-7 #### [facility] ([id number]) [address] [place] [address] 15018 Monocytes (Bld) [#/Vol] 1.5 10*3/uL High 0-0.9 [facility] Comment on above: Performed By: #### C LUCIA, BMP, 10833-0, 37088-1, 47777-4 #### [facility] ([id number]) [address] [place] [address] 98088 Monocytes/100 WBC (Bld) 14.4 % Normal [facility] Comment on above: Performed By: #### Lexis BCA, BMP, 29368-9, 66189-7, 95994-5 #### [facility] ([id number]) [address] [place] [address] 22756 Neutrophils (Bld) [#/Vol] 6.1 10*3/uL Normal 1.5-6.6 [facility] Comment on above: Performed By: #### Lexis BCA, BMP, 24842-7, 67993-3, 05107-6 #### [facility] ([id number]) [address] [place] [address] 80600 Platelet mean volume (Bld) [Entitic vol] 8.1 fL Normal 7-12 [facility] Comment on above: Performed By: #### C BCA, BMP, 26704-1, 43420-6, 34236-5 #### [facility] ([id number]) [address] [place] [address] 42944 Platelets (Bld) [#/Vol] 237 10*3/uL Normal 150-450 [facility] Comment on above: Performed By: #### C BCA, BMP, 91101-1, 84509-3, 39738-2 #### [facility] ([id number]) [address] [place] [address] 40529 RBC COUNT 2.68 X10E12/L Low 4.10-5.70 [facility] Comment on above: Performed By: #### Lexis BCA, BMP, 34883-0, 03265-2, 33186-1 #### [facility] ([id number]) [address] [place] [address] 46061 SEG NEUTROPHIL 57.7 % Normal [facility] Comment on above: Performed By: #### Lexis BCA, BMP, 58757-3, 61245-6, 45931-8 #### [facility] ([id number]) [address] [place] [address] 60043 WBC (Bld) [#/Vol] 10.1 10*3/uL Normal 4.0-11.0 [facility] Comment on above: Performed By: #### Lexis BCA, BMP, 42339-2, 86470-2, 53591-7 #### [facility] ([id number]) [address] [place] [address] 86789 CNPNon 08-20-2023 CNPN Normal [facility] MAGNESIUMon 08-20-2023 Magnesium [Mass/Vol] 2.0 mg/dL Normal 1.8-2.6 [facility] Comment on above: Performed By: #### C BCA, BMP, 89262-3, 17638-1, 22750-2 #### [facility] ([id number]) [address] [facility], [place] [address] Natriuretic peptide B [Mass/ Vol]on 08-20-2023 Natriuretic peptide B (Bld) [Mass/Vol] 52 pg/mL Normal <100.0 [facility] Comment on above: Performed By: #### C BCA, BMP, 96906-7, 79860-0, 45982-3 #### [facility] ([id number]) [address] [facility], [place] [address] SARS/FLU A+B/RSV by NAAT/Mol ecularon 08-20-2023 SARS/FLU A+B/RSV by NAAT/Molecular FLU A PCR Negative (qualifier value) FLU B PCR Negative (qualifier value) RSV by PCR Negative (qualifier value) SARS CoV 2 Not detected (qualifier value) NOTE The Xpert Xpress SARS-CoV-2/Flu/RSV Plus test is a rapid, multiplexed real-time RT-PCR test intended for the simultaneous qualitative detection and differentiation of SARS-CoV-2, influenza A, influenza B and respiratory syncytial virus (RSV) viral RNA from individuals suspected of respiratory viral infection consistent with COVID-19 by their healthcare provider. This test has not been validated in asymptomatic patients. The Xpert Xpress SARS-CoV-2 test is intended for use by qualified and trained operators who are performing tests using either Geneamprice DX or GeneMimoco systems and is limited to laboratories that meet the CLIA requirements to perform high and moderate complexity tests. The Xpert Xpress SARS-CoV-2/Flu/RSV Plus is only for use under the Food and Drug Administration's Emergency Use Authorization. Results are for the simultaneous detection and differentiation of SARS-CoV-2, influenza A, influenza B and RSV nucleic acids in clinical specimens. SARS-CoV-2, influenza A, influenza B and RSV RNA identified by this test are generally detectable in upper respiratory samples during the acute phase of infection. Positive results are indicative of the presence of the identified virus, but do not rule out bacterial infection or co-infection with other pathogens not detected by this test. Clinical correlation with patient history and other diagnostic information is necessary to determine patient infection status. The agent detected may not be the definite cause of disease. Negative results do not preclude SARS-CoV-2, influenza A, influenza B and RSV infection and should not be used as the sole basis for treatment or other patient management decisions. Negative results must be combined with clinical observations, patient history and epidemiological information. An Invalid result may occur with specimen-associated inhibition unable to be resolved with specimen repeat. Fact Sheet for Healthcare Providers: https://www.fda.gov/m edia/846871/download Fact Sheet for Patients: https://www.fda.gov/m edia/592551/download Normal [facility] Comment on above: Performed By: #### C OVFLR #### [facility] ([id number]) [address] [place] [address] 55342 TROPONIN Ion 08-20-2023 Troponin I.cardiac [Mass/Vol] 0.01 ng/mL Normal 0.00-0.04 [facility] Comment on above: Performed By: #### C BCA, BMP, 83123-7, 32474-4, 38766-0 #### [facility] ([id number]) [address] [place] [address] 61440 URN MACROSCOPIC NURon 2023 BILIRUBIN BOOKER Negative Normal NEG [facility] Comment on above: Performed By: #### N UM #### [facility] ([id number]) [address] [place] [address] 57940 BLOOD/HGB BOOKER Negative Normal NEG [facility] Comment on above: Performed By: #### N UM #### [facility] ([id number]) [address] [place] [address] [id number] GLUCOSE BOOKER Negative Normal NEG [facility] Comment on above: Performed By: #### N UM #### [facility] ([id number]) [address] [place] [address] 52989 KETONES BOOKER Negative Normal NEG [facility] Comment on above: Performed By: #### N UM #### [facility] ([id number]) [address] [place] [address] 18432 LEUKOCYTE ESTERASE BOOKER Negative Normal NEG [facility] Comment on above: Performed By: #### N UM #### [facility] ([id number]) [address] [place] [address] 10116 NITRITE BOOKER Negative Normal NEG [facility] Comment on above: Performed By: #### N UM #### [facility] ([id number]) [address] [place] [address] 08275 PH BOOKER 7.0 Normal 5.0-8.5 [facility] Comment on above: Performed By: #### N UM #### [facility] ([id number]) [address] [place] [address] 13915 PROTEIN BOOKER Negative Normal NEG [facility] Comment on above: Performed By: #### N UM #### [facility] ([id number]) [address] [place] [address] 44657 SPECIFIC GRAVITY BOOKER 1.015 Normal 1.003-1.035 [facility] Comment on above: Performed By: #### N UM #### [facility] ([id number]) [address] [place] [address] 27987 UROBILINOGEN BOOKER 0.2 eu/dL Normal <1.1 [facility] Comment on above: Performed By: #### N UM #### [facility] ([id number]) [address] [place] [address] 84105 XR CHEST 2 VWSon 08-20-2023 XR CHEST 2 VWS XR CHEST 2 VWS HISTORY: An 83-year-old male with the history of syncope and dizziness. TECHNIQUE: Upright AP view of chest: One view COMPARISON: Comparison is made with the chest radiograph of 11/13/2020. FINDINGS: The heart is enlarged. Trachea is in midline. A Port-A-Cath is in place. Mediastinum is otherwise unremarkable. There is a prominence of the markings suggestive of vascular congestion. No focal parenchymal consolidation is seen. No pleural effusions are seen. There is no evidence of pneumothorax. Hemidiaphragms are normal in position. Rib cage is intact. There is a surgical spinal fusion in the mid and lower thoracic spine with fixation hardware. IMPRESSION: * Cardiomegaly and vascular congestion. * No evidence of pneumonic consolidation or pleural effusions. Finalized by Jerod Padilla MD on 08/20/2023 10:33 AM Normal [facility] CNPNon 08-07-2023 CNPN Normal [facility] CBC W Auto Differential pane l (Bld)on 07-31-2023 Anisocytosis Ql (Bld) Present Normal [facility] Comment on above: Order Comment: Speci men Type: BLOOD SPECIMENOrdering Facility: [facility] Address: [address] [place] [address] Performed By: #### 5 7021-8 ####[facility] LABCLIA [id number] [address] LABCLIA [id number] [place] [address] [place] Basophils (Bld) [#/Vol] 0.22 10*3/uL High <0.11 [facility] Comment on above: Order Comment: Speci men Type: BLOOD SPECIMENOrdering Facility: [facility] Address: [address] [place] [address] Performed By: #### 5 7021-8 ####[facility] LABCLIA [id number] [address] LABCLIA [id number] [place] [address] [place] Basophils/100 WBC (Bld) 1.7 % Normal [facility] Comment on above: Order Comment: Speci men Type: BLOOD SPECIMENOrdering Facility: [facility] Address: [address] [place] [address] Performed By: #### 5 7021-8 ####[facility] LABCLIA [id number] [address] LABCLIA [id number] [place] [address] [place] Differential cell count method Nom (Bld) Manual Normal [facility] Comment on above: Order Comment: Speci men Type: BLOOD SPECIMENOrdering Facility: [facility] Address: [address] [place] [address] Performed By: #### 5 7021-8 ####[facility] LABCLIA [id number] [address] LABCLIA [id number] [place] [address] [place] Eosinophils (Bld) [#/Vol] 0.55 10*3/uL High <0.46 [facility] Comment on above: Order Comment: Speci men Type: BLOOD SPECIMENOrdering Facility: [facility] Address: [address] [place] [address] Performed By: #### 5 7021-8 ####[facility] LABCLIA [id number] [address] LABCLIA [id number] [place] [address] [place] Eosinophils/100 WBC (Bld) 4.3 % Normal [facility] Comment on above: Order Comment: Speci men Type: BLOOD SPECIMENOrdering Facility: [facility] Address: [address] [place] [address] Performed By: #### 5 7021-8 ####[facility] LABCLIA [id number] [address] LABCLIA [id number] [place] [address] [place] Erythrocyte distribution width (RBC) [Ratio] 15.4 % High 11.5-15.0 [facility] Comment on above: Order Comment: Speci men Type: BLOOD SPECIMENOrdering Facility: [facility] Address: [address] [place] [address] Performed By: #### 5 7021-8 ####[facility] LABCLIA [id number] [address] LABCLIA [id number] [place] [address] [place] Hematocrit (Bld) [Volume fraction] 33.2 % Low 39.0-51.0 [facility] Comment on above: Order Comment: Speci men Type: BLOOD SPECIMENOrdering Facility: [facility] Address: [address] [place] [address] Performed By: #### 5 7021-8 ####[facility] LABCLIA [id number] [address] LABCLIA [id number] [place] [address] [place] Hemoglobin (Bld) [Mass/Vol] 11.1 g/dL Low 13.0-17.0 [facility] Comment on above: Order Comment: Speci men Type: BLOOD SPECIMENOrdering Facility: [facility] Address: [address] [place] [address] Performed By: #### 5 7021-8 ####[facility] LABCLIA [id number] [address] LABCLIA [id number] [place] [address] [place] Lymphocytes (Bld) [#/Vol] 2.78 10*3/uL Normal 1.00-4.00 [facility] Comment on above: Order Comment: Speci men Type: BLOOD SPECIMENOrdering Facility: [facility] Address: [address] [place] [address] Performed By: #### 5 7021-8 ####[facility] LABCLIA [id number] [address] LABCLIA [id number] [place] [address] [place] Lymphocytes/100 WBC (Bld) 21.7 % Normal [facility] Comment on above: Order Comment: Speci men Type: BLOOD SPECIMENOrdering Facility: [facility] Address: [address] [place] [address] Performed By: #### 5 7021-8 ####[facility] LABCLIA [id number] [address] LABCLIA [id number] [place] [address] [place] MCH (RBC) [Entitic mass] 36.3 pg High 26.0-34.0 [facility] Comment on above: Order Comment: Speci men Type: BLOOD SPECIMENOrdering Facility: [facility] Address: [address] [place] [address] Performed By: #### 5 7021-8 ####[facility] LABCLIA [id number] [address] LABCLIA [id number] [place] [address] [place] MCHC (RBC) [Mass/Vol] 33.4 g/dL Normal 30.5-36.0 [facility] Comment on above: Order Comment: Speci men Type: BLOOD SPECIMENOrdering Facility: [facility] Address: [address] [place] [address] Performed By: #### 5 7021-8 ####[facility] LABCLIA [id number] [address] LABCLIA [id number] [place] [address] [place] MCV (RBC) [Entitic vol] 108.5 fL High 80.0-100.0 [facility] Comment on above: Order Comment: Speci men Type: BLOOD SPECIMENOrdering Facility: [facility] Address: [address] [place] [address] Performed By: #### 5 7021-8 ####[facility] LABCLIA [id number] [place] [address] LABCLIA [id number] [place] [address] [place] Monocytes (Bld) [#/Vol] 1.23 10*3/uL High <0.87 [facility] Comment on above: Order Comment: Speci men Type: BLOOD SPECIMENOrdering Facility: [facility] Address: [address] [place] [address] Performed By: #### 5 7021-8 ####[facility] LABCLIA [id number] [address] LABCLIA [id number] [place] [address] [place] Monocytes/100 WBC (Bld) 9.6 % Normal [facility] Comment on above: Order Comment: Speci men Type: BLOOD SPECIMENOrdering Facility: [facility] Address: [address] [place] [address] Performed By: #### 5 7021-8 ####[facility] LABCLIA [id number] [address] LABCLIA [id number] [place] [address] [place] Neutrophils (Bld) [#/Vol] 8.04 10*3/uL High 1.45-7.50 [facility] Comment on above: Order Comment: Speci men Type: BLOOD SPECIMENOrdering Facility: [facility] Address: [address] [place] [address] Performed By: #### 5 7021-8 ####[facility] LABCLIA [id number] [place] [address] LABCLIA [id number] [place] [address] [place] Neutrophils/100 WBC (Bld) 62.7 % Normal [facility] Comment on above: Order Comment: Speci men Type: BLOOD SPECIMENOrdering Facility: [facility] Address: [address] [place] [address] Performed By: #### 5 7021-8 ####[facility] LABCLIA [id number] [address] LABCLIA [id number] [place] [address] [place] Nucleated RBC (Bld) [#/Vol] 10*3/uL Normal <0.01 [facility] Comment on above: Order Comment: Speci men Type: BLOOD SPECIMENOrdering Facility: [facility] Address: [address] [place] [address] Performed By: #### 5 7021-8 ####[facility] LABCLIA [id number] [address] LABCLIA [id number] [place] [address] [place] Nucleated RBC/100 WBC (Bld) [Ratio] 0.0 /100 WBC Normal [facility] Comment on above: Order Comment: Speci men Type: BLOOD SPECIMENOrdering Facility: [facility] Address: [address] [place] [address] Performed By: #### 5 7021-8 ####[facility] LABCLIA [id number] [address] LABCLIA [id number] [place] [address] [place] Platelet mean volume (Bld) [Entitic vol] 9.5 fL Normal 9.0-12.7 [facility] Comment on above: Order Comment: Speci men Type: BLOOD SPECIMENOrdering Facility: [facility] Address: [address] [place] [address] Performed By: #### 5 7021-8 ####[facility] LABCLIA [id number] [place] [address] LABCLIA [id number] [place] [address] [place] Platelets (Bld) [#/Vol] 270 10*3/uL Normal 150-400 [facility] Comment on above: Order Comment: Speci men Type: BLOOD SPECIMENOrdering Facility: [facility] Address: [address] [place] [address] Performed By: #### 5 7021-8 ####[facility] LABCLIA [id number] [address] LABCLIA [id number] [place] [address] [place] Platelets Estimate (Bld) [#/Vol] Adequate Normal [facility] Comment on above: Order Comment: Speci men Type: BLOOD SPECIMENOrdering Facility: [facility] Address: [address] [place] [address] Performed By: #### 5 7021-8 ####[facility] LABCLIA [id number] [address] LABCLIA [id number] [place] [address] [place] Polychromasia LM Ql (Bld) Slight Normal [facility] Comment on above: Order Comment: Speci men Type: BLOOD SPECIMENOrdering Facility: [facility] Address: [address] [place] [address] Performed By: #### 5 7021-8 ####[facility] LABCLIA [id number] [address] LABCLIA [id number] [place] [address] [place] RBC (Bld) [#/Vol] 3.06 10*6/uL Low 4.20-6.00 [facility] Comment on above: Order Comment: Speci men Type: BLOOD SPECIMENOrdering Facility: [facility] Address: [address] [place] [address] Performed By: #### 5 7021-8 ####[facility] LABCLIA [id number] [address] LABCLIA [id number] [place] [address] [place] RED CELL MORPH Reviewed: see result s of individual morphologies Normal [facility] Comment on above: Order Comment: Speci men Type: BLOOD SPECIMENOrdering Facility: [facility] Address: [address] [place] [address] Performed By: #### 5 7021-8 ####[facility] LABCLIA [id number] [address] LABCLIA [id number] [place] [address] [place] WBC (Bld) [#/Vol] 12.83 10*3/uL High 3.70-11.00 [facility] Comment on above: Order Comment: Speci men Type: BLOOD SPECIMENOrdering Facility: [facility] Address: [address] [place] [address] Performed By: #### 5 7021-8 ####[facility] LABCLIA [id number] [address] LABCLIA [id number] [place] [address] [place] CNOVSPon 07-31-2023 CNOVSP Normal [facility] Comprehensive metabolic 2000 panelon 07-31-2023 Albumin [Mass/Vol] 3.2 g/dL Low 3.9-4.9 [facility] Comment on above: Order Comment: Speci men Type: BLOOD SPECIMENOrdering Facility: [facility] Address: [address] [place] [address] Performed By: #### 2 4323-8 ####[facility] LABCLIA [id number] [place] [address] ALP [Catalytic activity/Vol] 106 U/L Normal 38-113 [facility] Comment on above: Order Comment: Speci men Type: BLOOD SPECIMENOrdering Facility: [facility] Address: [address] [place] [address] Performed By: #### 2 4323-8 ####[facility] LABCLIA [id number] [place] [address] ALT [Catalytic activity/Vol] 23 U/L Normal 10-54 [facility] Comment on above: Order Comment: Speci men Type: BLOOD SPECIMENOrdering Facility: [facility] Address: [address] [place] [address] Performed By: #### 2 4323-8 ####[facility] LABCLIA [id number] [place] [address] Anion gap [Moles/Vol] 8 mmol/L Low 9-18 [facility] Comment on above: Order Comment: Speci men Type: BLOOD SPECIMENOrdering Facility: [facility] Address: [address] [place] [address] Performed By: #### 2 4323-8 ####[facility] LABCLIA [id number] [place] [address] AST [Catalytic activity/Vol] 19 U/L Normal 14-40 [facility] Comment on above: Order Comment: Speci men Type: BLOOD SPECIMENOrdering Facility: [facility] Address: [address] [place] [address] Performed By: #### 2 4323-8 ####[facility] LABCLIA [id number] [place] [address] Bilirubin [Mass/Vol] 0.4 mg/dL Normal 0.2-1.3 [facility] Comment on above: Order Comment: Speci men Type: BLOOD SPECIMENOrdering Facility: [facility] Address: [address] [place] [address] Performed By: #### 2 4323-8 ####[facility] LABCLIA [id number] [place] [address] Calcium [Mass/Vol] 9.0 mg/dL Normal 8.5-10.2 [facility] Comment on above: Order Comment: Speci men Type: BLOOD SPECIMENOrdering Facility: [facility] Address: [address] [place] [address] Performed By: #### 2 4323-8 ####[facility] LABCLIA [id number] [place] [address] Chloride [Moles/Vol] 103 mmol/L Normal 97-105 [facility] Comment on above: Order Comment: Speci men Type: BLOOD SPECIMENOrdering Facility: [facility] Address: [address] [place] [address] Performed By: #### 2 4323-8 ####[facility] LABCLIA [id number] [place] [address] CO2 [Moles/Vol] 25 mmol/L Normal 22-30 [facility] Comment on above: Order Comment: Speci men Type: BLOOD SPECIMENOrdering Facility: [facility] Address: [address] [place] [address] Performed By: #### 2 4323-8 ####[facility] LABCLIA [id number] [place] [address] Creatinine [Mass/Vol] 1.30 mg/dL High 0.73-1.22 [facility] Comment on above: Order Comment: Speci men Type: BLOOD SPECIMENOrdering Facility: [facility] Address: [address] [place] [address] Performed By: #### 2 4323-8 ####[facility] LABCLIA [id number] [place] [address] Creatinine and Glomerular filtration rate.predicted panel (S/P/Bld) 55 mL/min/1.73m??? Low >=60 [facility] Comment on above: Order Comment: Speci men Type: BLOOD SPECIMENOrdering Facility: [facility] Address: [address] [place] [address] Result Comment: Janae mated Glomerular Filtration Rate (eGFR) is calculated using the 2020 CKD-EPI creatinine equation. This equation utilizes serum creatinine, sex, and age as parameters. The creatinine assay has traceable calibration to isotope dilution-mass spectrometry. Refer to KDIGO guidelines for clinical interpretation. In patients with unstable renal function, e.g. those with acute kidney injury, the eGFR may not accurately reflect actual GFR. Performed By: #### 2 4323-8 ####[facility] LABCLIA [id number] [place] [address] Glucose [Mass/Vol] 136 mg/dL High 74-99 [facility] Comment on above: Order Comment: Speci men Type: BLOOD SPECIMENOrdering Facility: [facility] Address: [address] [place] [address] Result Comment: The [place] [employer] (ADA) provides guidance for cutoff values for fasting glucose and random glucose. The ADA defines fasting as no caloric intake for at least 8 hours. Fasting plasma glucose results between 100 to 125 mg/dL indicate increased risk for diabetes (prediabetes).Fasting plasma glucose results greater than or equal to 126 mg/dL meet the criteria for diagnosis of diabetes. In the absence of unequivocal hyperglycemia, results should be confirmed by repeat testing. In a patient with classic symptoms of hyperglycemia or hyperglycemic crisis, random plasma glucose results greater than or equal to 200 mg/dL meet the criteria for diagnosis of diabetes.Reference: Standards of Medical Care in Diabetes 2016, [place] [employer]. Diabetes Care. 2016.39(Suppl 1). Performed By: #### 2 4323-8 ####[facility] LABCLIA [id number] [place] [address] Potassium [Moles/Vol] 4.2 mmol/L Normal 3.7-5.1 [facility] Comment on above: Order Comment: Speci men Type: BLOOD SPECIMENOrdering Facility: [facility] Address: [address] [place] [address] Performed By: #### 2 4323-8 ####[facility] LABCLIA [id number] [place] [address] Protein [Mass/Vol] 5.2 g/dL Low 6.3-8.0 [facility] Comment on above: Order Comment: Speci men Type: BLOOD SPECIMENOrdering Facility: [facility] Address: [address] [place] [address] Performed By: #### 2 4323-8 ####[facility] LABCLIA [id number] [place] [address] Sodium [Moles/Vol] 136 mmol/L Normal 136-144 [facility] Comment on above: Order Comment: Speci men Type: BLOOD SPECIMENOrdering Facility: [facility] Address: [address] [place] [address] Performed By: #### 2 4323-8 ####[facility] LABCLIA [id number] [place] [address] Urea nitrogen [Mass/Vol] 25 mg/dL High 9-24 [facility] Comment on above: Order Comment: Speci men Type: BLOOD SPECIMENOrdering Facility: [facility] Address: [address] [place] [address] Performed By: #### 2 4323-8 ####[facility] LABCLIA [id number] [place] [address] CNPNon 07-30-2023 CNPN Normal [facility] CBC W Auto Differential pane l (Bld)on 07-17-2023 Basophils (Bld) [#/Vol] 0.11 10*3/uL High <0.11 [facility] Comment on above: Order Comment: Speci men Type: BLOOD SPECIMENOrdering Facility: [facility] Address: [address] [place] [address] Performed By: #### 5 7021-8 ####[facility] LABCLIA [id number] [address] LABCLIA [id number] [place] [address] [place] Basophils/100 WBC (Bld) 0.9 % Normal [facility] Comment on above: Order Comment: Speci men Type: BLOOD SPECIMENOrdering Facility: [facility] Address: [address] [place] [address] Performed By: #### 5 7021-8 ####[facility] LABCLIA [id number] [address] LABCLIA [id number] [place] [address] [place] Differential cell count method Nom (Bld) Manual Normal [facility] Comment on above: Order Comment: Speci men Type: BLOOD SPECIMENOrdering Facility: [facility] Address: [address] [place] [address] Performed By: #### 5 7021-8 ####[facility] LABCLIA [id number] [address] LABCLIA [id number] [place] [address] [place] Eosinophils (Bld) [#/Vol] 0.44 10*3/uL Normal <0.46 [facility] Comment on above: Order Comment: Speci men Type: BLOOD SPECIMENOrdering Facility: [facility] Address: [address] [place] [address] Performed By: #### 5 7021-8 ####[facility] LABCLIA [id number] [address] LABCLIA [id number] [place] [address] [place] Eosinophils/100 WBC (Bld) 3.5 % Normal [facility] Comment on above: Order Comment: Speci men Type: BLOOD SPECIMENOrdering Facility: [facility] Address: [address] [place] [address] Performed By: #### 5 7021-8 ####[facility] LABCLIA [id number] [address] LABCLIA [id number] [place] [address] [place] Erythrocyte distribution width (RBC) [Ratio] 14.6 % Normal 11.5-15.0 [facility] Comment on above: Order Comment: Speci men Type: BLOOD SPECIMENOrdering Facility: [facility] Address: [address] [place] [address] Performed By: #### 5 7021-8 ####[facility] LABCLIA [id number] [address] LABCLIA [id number] [place] [address] [place] Hematocrit (Bld) [Volume fraction] 36.1 % Low 39.0-51.0 [facility] Comment on above: Order Comment: Speci men Type: BLOOD SPECIMENOrdering Facility: [facility] Address: [address] [place] [address] Performed By: #### 5 7021-8 ####[facility] LABCLIA [id number] [address] LABCLIA [id number] [place] [address] [place] Hemoglobin (Bld) [Mass/Vol] 12.1 g/dL Low 13.0-17.0 [facility] Comment on above: Order Comment: Speci men Type: BLOOD SPECIMENOrdering Facility: [facility] Address: [address] [place] [address] Performed By: #### 5 7021-8 ####[facility] LABCLIA [id number] [address] LABCLIA [id number] [place] [address] [place] Lymphocytes (Bld) [#/Vol] 0.66 10*3/uL Low 1.00-4.00 [facility] Comment on above: Order Comment: Speci men Type: BLOOD SPECIMENOrdering Facility: [facility] Address: [address] [place] [address] Performed By: #### 5 7021-8 ####[facility] LABCLIA [id number] [address] LABCLIA [id number] [place] [address] [place] Lymphocytes/100 WBC (Bld) 5.3 % Normal [facility] Comment on above: Order Comment: Speci men Type: BLOOD SPECIMENOrdering Facility: [facility] Address: [address] [place] [address] Performed By: #### 5 7021-8 ####[facility] LABCLIA [id number] [address] LABCLIA [id number] [place] [address] [place] MCH (RBC) [Entitic mass] 35.4 pg High 26.0-34.0 [facility] Comment on above: Order Comment: Speci men Type: BLOOD SPECIMENOrdering Facility: [facility] Address: [address] [place] [address] Performed By: #### 5 7021-8 ####[facility] LABCLIA [id number] [address] LABCLIA [id number] [place] [address] [place] MCHC (RBC) [Mass/Vol] 33.5 g/dL Normal 30.5-36.0 [facility] Comment on above: Order Comment: Speci men Type: BLOOD SPECIMENOrdering Facility: [facility] Address: [address] [place] [address] Performed By: #### 5 7021-8 ####[facility] LABCLIA [id number] [address] LABCLIA [id number] [place] [address] [place] MCV (RBC) [Entitic vol] 105.6 fL High 80.0-100.0 [facility] Comment on above: Order Comment: Speci men Type: BLOOD SPECIMENOrdering Facility: [facility] Address: [address] [place] [address] Performed By: #### 5 7021-8 ####[facility] LABCLIA [id number] [address] LABCLIA [id number] [place] [address] [place] Monocytes (Bld) [#/Vol] 1.99 10*3/uL High <0.87 [facility] Comment on above: Order Comment: Speci men Type: BLOOD SPECIMENOrdering Facility: [facility] Address: [address] [place] [address] Performed By: #### 5 7021-8 ####[facility] LABCLIA [id number] [address] LABCLIA [id number] [place] [address] [place] Monocytes/100 WBC (Bld) 15.9 % Normal [facility] Comment on above: Order Comment: Speci men Type: BLOOD SPECIMENOrdering Facility: [facility] Address: [address] [place] [address] Performed By: #### 5 7021-8 ####[facility] LABCLIA [id number] [place] [address] LABCLIA [id number] [place] [address] [place] Neutrophils (Bld) [#/Vol] 9.29 10*3/uL High 1.45-7.50 [facility] Comment on above: Order Comment: Speci men Type: BLOOD SPECIMENOrdering Facility: [facility] Address: [address] [place] [address] Performed By: #### 5 7021-8 ####[facility] LABCLIA [id number] [address] LABCLIA [id number] [place] [address] [place] Neutrophils/100 WBC (Bld) 74.4 % Normal [facility] Comment on above: Order Comment: Speci men Type: BLOOD SPECIMENOrdering Facility: [facility] Address: [address] [place] [address] Performed By: #### 5 7021-8 ####[facility] LABCLIA [id number] [address] LABCLIA [id number] [place] [address] [place] Nucleated RBC (Bld) [#/Vol] 0.11 10*3/uL High <0.01 [facility] Comment on above: Order Comment: Speci men Type: BLOOD SPECIMENOrdering Facility: [facility] Address: [address] [place] [address] Performed By: #### 5 7021-8 ####[facility] LABCLIA [id number] [address] LABCLIA [id number] [place] [address] [place] Nucleated RBC/100 WBC (Bld) [Ratio] 0.9 /100 WBC Normal [facility] Comment on above: Order Comment: Speci men Type: BLOOD SPECIMENOrdering Facility: [facility] Address: [address] [place] [address] Performed By: #### 5 7021-8 ####[facility] LABCLIA [id number] [address] LABCLIA [id number] [place] [address] [place] Ovalocytes LM Ql (Bld) Few Normal Cl [facility] Comment on above: Order Comment: Speci men Type: BLOOD SPECIMENOrdering Facility: [facility] Address: [address] [place] [address] Performed By: #### 5 7021-8 ####[facility] LABCLIA [id number] [address] LABCLIA [id number] [place] [address] [place] Platelet mean volume (Bld) [Entitic vol] 11.0 fL Normal 9.0-12.7 [facility] Comment on above: Order Comment: Speci men Type: BLOOD SPECIMENOrdering Facility: [facility] Address: [address] [place] [address] Performed By: #### 5 7021-8 ####[facility] LABCLIA [id number] [address] LABCLIA [id number] [place] [address] [place] Platelets (Bld) [#/Vol] 229 10*3/uL Normal 150-400 [facility] Comment on above: Order Comment: Speci men Type: BLOOD SPECIMENOrdering Facility: [facility] Address: [address] [place] [address] Performed By: #### 5 7021-8 ####[facility] LABCLIA [id number] [facility] LABCLIA [id number] [place] [address] [place] Platelets Estimate (Bld) [#/Vol] Adequate Normal [facility] Comment on above: Order Comment: Speci men Type: BLOOD SPECIMENOrdering Facility: [facility] Address: [address] [place] [address] Performed By: #### 5 7021-8 ####[facility] LABCLIA [id number] [address] LABCLIA [id number] [place] [address] [place] Polychromasia LM Ql (Bld) Slight Normal [facility] Comment on above: Order Comment: Speci men Type: BLOOD SPECIMENOrdering Facility: [facility] Address: [address] [place] [address] Performed By: #### 5 7021-8 ####[facility] LABCLIA [id number] [address] LABCLIA [id number] [place] [address] [place] RBC (Bld) [#/Vol] 3.42 10*6/uL Low 4.20-6.00 [facility] Comment on above: Order Comment: Speci men Type: BLOOD SPECIMENOrdering Facility: [facility] Address: [address] [place] [address] Performed By: #### 5 7021-8 ####[facility] LABCLIA [id number] [address] LABCLIA [id number] [place] [address] [place] RED CELL MORPH Reviewed: see result s of individual morphologies Normal [facility] Comment on above: Order Comment: Speci men Type: BLOOD SPECIMENOrdering Facility: [facility] Address: [address] [place] [address] Performed By: #### 5 7021-8 ####[facility] LABCLIA [id number] [place], [place] [address] LABCLIA [id number] [address] [address] [place] WBC (Bld) [#/Vol] 12.49 10*3/uL High 3.70-11.00 [facility] Comment on above: Order Comment: Speci men Type: BLOOD SPECIMENOrdering Facility: [facility] Address: [address] [place] [address] Performed By: #### 5 7021-8 ####[facility] LABCLIA [id number] [place], [place] [address]YS[facility] LABCLIA [id number] [place] [address] [place] CNOVSPon 07-17-2023 CNOVSP Normal [facility] Comprehensive metabolic 2000 panelon 07-17-2023 Albumin [Mass/Vol] 3.4 g/dL Low 3.9-4.9 [facility] Comment on above: Order Comment: Speci men Type: BLOOD SPECIMENOrdering Facility: [facility] Address: [address] [place] [address] Performed By: #### 2 4323-8 ####[facility] LABCLIA [id number] [place] [address] ALP [Catalytic activity/Vol] 90 U/L Normal 38-113 [facility] Comment on above: Order Comment: Speci men Type: BLOOD SPECIMENOrdering Facility: [facility] Address: [address] [place] [address] Performed By: #### 2 4323-8 ####[facility] LABCLIA [id number] [place] [address] ALT [Catalytic activity/Vol] 15 U/L Normal 10-54 [facility] Comment on above: Order Comment: Speci men Type: BLOOD SPECIMENOrdering Facility: [facility] Address: [address] [place] [address] Performed By: #### 2 4323-8 ####[facility] LABCLIA [id number] [place] [address] Anion gap [Moles/Vol] 9 mmol/L Normal 9-18 [facility] Comment on above: Order Comment: Speci men Type: BLOOD SPECIMENOrdering Facility: [facility] Address: [address] [place] [address] Performed By: #### 2 4323-8 ####[facility] LABCLIA [id number] [place] [address] AST [Catalytic activity/Vol] 16 U/L Normal 14-40 [facility] Comment on above: Order Comment: Speci men Type: BLOOD SPECIMENOrdering Facility: [facility] Address: [address] [place] [address] Performed By: #### 2 4323-8 ####[facility] LABCLIA [id number] [place] [address] Bilirubin [Mass/Vol] 0.4 mg/dL Normal 0.2-1.3 [facility] Comment on above: Order Comment: Speci men Type: BLOOD SPECIMENOrdering Facility: [facility] Address: [address] [place] [address] Performed By: #### 2 4323-8 ####[facility] LABCLIA [id number] [place] [address] Calcium [Mass/Vol] 9.4 mg/dL Normal 8.5-10.2 [facility] Comment on above: Order Comment: Speci men Type: BLOOD SPECIMENOrdering Facility: [facility] Address: [address] [place] [address] Performed By: #### 2 4323-8 ####[facility] LABCLIA [id number] [place] [address] Chloride [Moles/Vol] 103 mmol/L Normal 97-105 [facility] Comment on above: Order Comment: Speci men Type: BLOOD SPECIMENOrdering Facility: [facility] Address: [address] [place] [address] Performed By: #### 2 4323-8 ####[facility] LABCLIA [id number] [place] [address] CO2 [Moles/Vol] 25 mmol/L Normal 22-30 [facility] Comment on above: Order Comment: Speci men Type: BLOOD SPECIMENOrdering Facility: [facility] Address: [address] [place] [address] Performed By: #### 2 4323-8 ####[facility] LABCLIA [id number] [place] [address] Creatinine [Mass/Vol] 1.38 mg/dL High 0.73-1.22 [facility] Comment on above: Order Comment: Speci men Type: BLOOD SPECIMENOrdering Facility: [facility] Address: [address] [place] [address] Performed By: #### 2 4323-8 ####[facility] LABCLIA [id number] [place] [address] Creatinine and Glomerular filtration rate.predicted panel (S/P/Bld) 51 mL/min/1.73m??? Low >=60 [facility] Comment on above: Order Comment: Speci men Type: BLOOD SPECIMENOrdering Facility: [facility] Address: [address] [place] [address] Result Comment: Janae mated Glomerular Filtration Rate (eGFR) is calculated using the 2020 CKD-EPI creatinine equation. This equation utilizes serum creatinine, sex, and age as parameters. The creatinine assay has traceable calibration to isotope dilution-mass spectrometry. Refer to KDIGO guidelines for clinical interpretation. In patients with unstable renal function, e.g. those with acute kidney injury, the eGFR may not accurately reflect actual GFR. Performed By: #### 2 4323-8 ####[facility] LABCLIA [id number] [place] [address] Glucose [Mass/Vol] 147 mg/dL High 74-99 [facility] Comment on above: Order Comment: Speci men Type: BLOOD SPECIMENOrdering Facility: [facility] Address: [address] [place], [place] [address] Result Comment: The [place] [employer] (ADA) provides guidance for cutoff values for fasting glucose and random glucose. The ADA defines fasting as no caloric intake for at least 8 hours. Fasting plasma glucose results between 100 to 125 mg/dL indicate increased risk for diabetes (prediabetes).Fasting plasma glucose results greater than or equal to 126 mg/dL meet the criteria for diagnosis of diabetes. In the absence of unequivocal hyperglycemia, results should be confirmed by repeat testing. In a patient with classic symptoms of hyperglycemia or hyperglycemic crisis, random plasma glucose results greater than or equal to 200 mg/dL meet the criteria for diagnosis of diabetes.Reference: Standards of Medical Care in Diabetes 2016, [place] [employer]. Diabetes Care. 2016.39(Suppl 1). Performed By: #### 2 4323-8 ####[facility] LABCLIA [id number] [place] [address] Potassium [Moles/Vol] 4.3 mmol/L Normal 3.7-5.1 [facility] Comment on above: Order Comment: Speci men Type: BLOOD SPECIMENOrdering Facility: [facility] Address: [address] [place] [address] Performed By: #### 2 4323-8 ####[facility] LABCLIA [id number] [place] [address] Protein [Mass/Vol] 5.8 g/dL Low 6.3-8.0 [facility] Comment on above: Order Comment: Speci men Type: BLOOD SPECIMENOrdering Facility: [facility] Address: [address] [place] [address] Performed By: #### 2 4323-8 ####[facility] LABCLIA [id number] [place] [address] Sodium [Moles/Vol] 137 mmol/L Normal 136-144 [facility] Comment on above: Order Comment: Speci men Type: BLOOD SPECIMENOrdering Facility: [facility] Address: [address] [place] [address] Performed By: #### 2 4323-8 ####[facility] LABCLIA [id number] [place] [address] Urea nitrogen [Mass/Vol] 33 mg/dL High 9-24 [facility] Comment on above: Order Comment: Speci men Type: BLOOD SPECIMENOrdering Facility: [facility] Address: [address] [place] [address] Performed By: #### 2 4323-8 ####[facility] LABCLIA [id number] [place] [id number] CBC W Auto Differential pane l (Bld)on 07-10-2023 Basophils (Bld) [#/Vol] 0.24 10*3/uL High <0.11 [facility] Comment on above: Order Comment: Speci men Type: BLOOD SPECIMENOrdering Facility: [facility] Address: [address] [place] [address] Performed By: #### 5 7021-8 ####[facility] LABCLIA [id number] [place] [address] LABCLIA [id number] [facility] [address] [address] [place] Basophils/100 WBC (Bld) 2.0 % Normal [facility] Comment on above: Order Comment: Speci men Type: BLOOD SPECIMENOrdering Facility: [facility] Address: [address] [place] [address] Performed By: #### 5 7021-8 ####[facility] LABCLIA [id number] [place] [address] LABCLIA [id number] [facility] [address] [address] [place] Differential cell count method Nom (Bld) Manual Normal [facility] Comment on above: Order Comment: Speci men Type: BLOOD SPECIMENOrdering Facility: [facility] Address: [address] [place] [address] Performed By: #### 5 7021-8 ####[facility] LABCLIA [id number] [address] LABCLIA [id number] [place] [address] [place] Eosinophils (Bld) [#/Vol] 0.36 10*3/uL Normal <0.46 [facility] Comment on above: Order Comment: Speci men Type: BLOOD SPECIMENOrdering Facility: [facility] Address: [address] [place] [address] Performed By: #### 5 7021-8 ####[facility] LABCLIA [id number] [address] LABCLIA [id number] [place] [address] [place] Eosinophils/100 WBC (Bld) 3.0 % Normal [facility] Comment on above: Order Comment: Speci men Type: BLOOD SPECIMENOrdering Facility: [facility] Address: [address] [place] [address] Performed By: #### 5 7021-8 ####[facility] LABCLIA [id number] [address] LABCLIA [id number] [place] [address] [place] Erythrocyte distribution width (RBC) [Ratio] 14.2 % Normal 11.5-15.0 [facility] Comment on above: Order Comment: Speci men Type: BLOOD SPECIMENOrdering Facility: [facility] Address: [address] [place] [address] Performed By: #### 5 7021-8 ####[facility] LABCLIA [id number] [address] LABCLIA [id number] [place] [address] [place] Hematocrit (Bld) [Volume fraction] 37.2 % Low 39.0-51.0 [facility] Comment on above: Order Comment: Speci men Type: BLOOD SPECIMENOrdering Facility: [facility] Address: [address] [place] [address] Performed By: #### 5 7021-8 ####[facility] LABCLIA [id number] [address] LABCLIA [id number] [place] [address] [place] Hemoglobin (Bld) [Mass/Vol] 12.8 g/dL Low 13.0-17.0 [facility] Comment on above: Order Comment: Speci men Type: BLOOD SPECIMENOrdering Facility: [facility] Address: [address] [place] [address] Performed By: #### 5 7021-8 ####[facility] LABCLIA [id number] [address] LABCLIA [id number] [place] [address] [place] Lymphocytes (Bld) [#/Vol] 1.43 10*3/uL Normal 1.00-4.00 [facility] Comment on above: Order Comment: Speci men Type: BLOOD SPECIMENOrdering Facility: [facility] Address: [address] [place] [address] Performed By: #### 5 7021-8 ####[facility] LABCLIA [id number] [address] LABCLIA [id number] [place] [address] [place] Lymphocytes/100 WBC (Bld) 12.0 % Normal [facility] Comment on above: Order Comment: Speci men Type: BLOOD SPECIMENOrdering Facility: [facility] Address: [address] [place] [address] Performed By: #### 5 7021-8 ####[facility] LABCLIA [id number] [place] [address] LABCLIA [id number] [place] [address] [place] MCH (RBC) [Entitic mass] 35.7 pg High 26.0-34.0 [facility] Comment on above: Order Comment: Speci men Type: BLOOD SPECIMENOrdering Facility: [facility] Address: [address] [place] [address] Performed By: #### 5 7021-8 ####[facility] LABCLIA [id number] [address] LABCLIA [id number] [place] [address] [place] MCHC (RBC) [Mass/Vol] 34.4 g/dL Normal 30.5-36.0 [facility] Comment on above: Order Comment: Speci men Type: BLOOD SPECIMENOrdering Facility: [facility] Address: [address] [place] [address] Performed By: #### 5 7021-8 ####[facility] LABCLIA [id number] [place] [address] LABCLIA [id number] [place] [address] [place] MCV (RBC) [Entitic vol] 103.6 fL High 80.0-100.0 [facility] Comment on above: Order Comment: Speci men Type: BLOOD SPECIMENOrdering Facility: [facility] Address: [address] [place] [address] Performed By: #### 5 7021-8 ####[facility] LABCLIA [id number] [address] LABCLIA [id number] [place] [address] [place] Metamyelocytes/100 WBC (Bld) 3.0 % Normal [facility] Comment on above: Order Comment: Speci men Type: BLOOD SPECIMENOrdering Facility: [facility] Address: [address] [place] [address] Performed By: #### 5 7021-8 ####[facility] LABCLIA [id number] [address] LABCLIA [id number] [place] [address] [place] Monocytes (Bld) [#/Vol] 0.84 10*3/uL Normal <0.87 [facility] Comment on above: Order Comment: Speci men Type: BLOOD SPECIMENOrdering Facility: [facility] Address: [address] [place] [address] Performed By: #### 5 7021-8 ####[facility] LABCLIA [id number] [address] LABCLIA [id number] [place] [address] [place] Monocytes/100 WBC (Bld) 7.0 % Normal [facility] Comment on above: Order Comment: Speci men Type: BLOOD SPECIMENOrdering Facility: [facility] Address: [address] [place] [address] Performed By: #### 5 7021-8 ####[facility] LABCLIA [id number] [address] LABCLIA [id number] [place] [address] [place] MYELO% 2.0 % Normal [facility] Comment on above: Order Comment: Speci men Type: BLOOD SPECIMENOrdering Facility: [facility] Address: [address] [place] [address] Performed By: #### 5 7021-8 ####[facility] LABCLIA [id number] [place] [address] LABCLIA [id number] [place] [address] [place] Neutrophils (Bld) [#/Vol] 8.47 10*3/uL High 1.45-7.50 [facility] Comment on above: Order Comment: Speci men Type: BLOOD SPECIMENOrdering Facility: [facility] Address: [address] [place] [address] Performed By: #### 5 7021-8 ####[facility] LABCLIA [id number] [address] LABCLIA [id number] [place] [address] [place] Neutrophils/100 WBC (Bld) 71.0 % Normal [facility] Comment on above: Order Comment: Speci men Type: BLOOD SPECIMENOrdering Facility: [facility] Address: [address] [place] [address] Performed By: #### 5 7021-8 ####[facility] LABCLIA [id number] [address] LABCLIA [id number] [place] [address] [place] Nucleated RBC (Bld) [#/Vol] 10*3/uL Normal <0.01 [facility] Comment on above: Order Comment: Speci men Type: BLOOD SPECIMENOrdering Facility: [facility] Address: [address] [place] [address] Performed By: #### 5 7021-8 ####[facility] LABCLIA [id number] [address] LABCLIA [id number] [place] [address] [place] Nucleated RBC/100 WBC (Bld) [Ratio] 0.0 /100 WBC Normal [facility] Comment on above: Order Comment: Speci men Type: BLOOD SPECIMENOrdering Facility: [facility] Address: [address] [place] [address] Performed By: #### 5 7021-8 ####[facility] LABCLIA [id number] [address] LABCLIA [id number] [place] [address] [place] Ovalocytes LM Ql (Bld) Few Normal Cl [facility] Comment on above: Order Comment: Speci men Type: BLOOD SPECIMENOrdering Facility: [facility] Address: [address] [place] [address] Performed By: #### 5 7021-8 ####[facility] LABCLIA [id number] [address] LABCLIA [id number] [place] [address] [place] Platelet mean volume (Bld) [Entitic vol] 10.8 fL Normal 9.0-12.7 [facility] Comment on above: Order Comment: Speci men Type: BLOOD SPECIMENOrdering Facility: [facility] Address: [address] [place] [address] Performed By: #### 5 7021-8 ####[facility] LABCLIA [id number] [address] LABCLIA [id number] [place] [address] [place] Platelets (Bld) [#/Vol] 149 10*3/uL Low 150-400 [facility] Comment on above: Order Comment: Speci men Type: BLOOD SPECIMENOrdering Facility: [facility] Address: [address] [place] [address] Performed By: #### 5 7021-8 ####[facility] LABCLIA [id number] [facility] LABCLIA [id number] [place] [address] [place] Platelets Estimate (Bld) [#/Vol] Decreased Normal [facility] Comment on above: Order Comment: Speci men Type: BLOOD SPECIMENOrdering Facility: [facility] Address: [address] [place] [address] Performed By: #### 5 7021-8 ####[facility] LABCLIA [id number] [address] LABCLIA [id number] [place] [address] [place] Polychromasia LM Ql (Bld) Slight Normal [facility] Comment on above: Order Comment: Speci men Type: BLOOD SPECIMENOrdering Facility: [facility] Address: [address] [place] [address] Performed By: #### 5 7021-8 ####[facility] LABCLIA [id number] [address] LABCLIA [id number] [place] [address] [place] RBC (Bld) [#/Vol] 3.59 10*6/uL Low 4.20-6.00 [facility] Comment on above: Order Comment: Speci men Type: BLOOD SPECIMENOrdering Facility: [facility] Address: [address] [place] [address] Performed By: #### 5 7021-8 ####[facility] LABCLIA [id number] [address] LABCLIA [id number] [place] [address] [place] RED CELL MORPH Reviewed: see result s of individual morphologies Normal [facility] Comment on above: Order Comment: Speci men Type: BLOOD SPECIMENOrdering Facility: [facility] Address: [address] [place] [address] Performed By: #### 5 7021-8 ####[facility] LABCLIA [id number] [place], [place] [address] LABCL[facility] [id number] [place] [address] [place] WBC (Bld) [#/Vol] 11.93 10*3/uL High 3.70-11.00 [facility] Comment on above: Order Comment: Speci men Type: BLOOD SPECIMENOrdering Facility: [facility] Address: [address] [place] [address] Performed By: #### 5 7021-8 ####[facility] LABCLIA [id number] [place], [place] [address] LABCLIA [id number] [place] [address] [place] WBC Left Shift Ql (Bld) Present Normal C [facility] Comment on above: Order Comment: Speci men Type: BLOOD SPECIMENOrdering Facility: [facility] Address: [address] [place] [address] Performed By: #### 5 7021-8 ####[facility] LABCLIA [id number] [place], [place] [address]DWXFFGTDJMARIET[facility] LABCLIA [id number] [place] [address] [place] CNOVSPon 07-10-2023 CNOVSP Normal [facility] Comprehensive metabolic 2000 panelon 07-10-2023 Albumin [Mass/Vol] 3.5 g/dL Low 3.9-4.9 [facility] Comment on above: Order Comment: Speci men Type: BLOOD SPECIMENOrdering Facility: [facility] Address: [address] [place] [address] Performed By: #### 2 4323-8 ####[facility] LABCLIA [id number] [place] [id number] ALP [Catalytic activity/Vol] 99 U/L Normal 38-113 [facility] Comment on above: Order Comment: Speci men Type: BLOOD SPECIMENOrdering Facility: [facility] Address: [address] [place] [address] Performed By: #### 2 4323-8 ####[facility] LABCLIA [id number] [place] [address] ALT [Catalytic activity/Vol] 16 U/L Normal 10-54 [facility] Comment on above: Order Comment: Speci men Type: BLOOD SPECIMENOrdering Facility: [facility] Address: [address] [place] [address] Performed By: #### 2 4323-8 ####[facility] LABCLIA [id number] [place] [address] Anion gap [Moles/Vol] 8 mmol/L Low 9-18 [facility] Comment on above: Order Comment: Speci men Type: BLOOD SPECIMENOrdering Facility: [facility] Address: [address] [place] [address] Performed By: #### 2 4323-8 ####[facility] LABCLIA [id number] [place] [address] AST [Catalytic activity/Vol] 17 U/L Normal 14-40 [facility] Comment on above: Order Comment: Speci men Type: BLOOD SPECIMENOrdering Facility: [facility] Address: [address] [place] [address] Performed By: #### 2 4323-8 ####[facility] LABCLIA [id number] [place] [address] Bilirubin [Mass/Vol] 0.3 mg/dL Normal 0.2-1.3 [facility] Comment on above: Order Comment: Speci men Type: BLOOD SPECIMENOrdering Facility: [facility] Address: [address] [place] [address] Performed By: #### 2 4323-8 ####[facility] LABCLIA [id number] [place] [address] Calcium [Mass/Vol] 9.6 mg/dL Normal 8.5-10.2 [facility] Comment on above: Order Comment: Speci men Type: BLOOD SPECIMENOrdering Facility: [facility] Address: [address] [place] [address] Performed By: #### 2 4323-8 ####[facility] LABCLIA [id number] [place] [address] Chloride [Moles/Vol] 102 mmol/L Normal 97-105 [facility] Comment on above: Order Comment: Speci men Type: BLOOD SPECIMENOrdering Facility: [facility] Address: [address] [place] [address] Performed By: #### 2 4323-8 ####[facility] LABCLIA [id number] [place] [address] CO2 [Moles/Vol] 25 mmol/L Normal 22-30 [facility] Comment on above: Order Comment: Speci men Type: BLOOD SPECIMENOrdering Facility: [facility] Address: [address] [place] [address] Performed By: #### 2 4323-8 ####[facility] LABCLIA [id number] [place] [address] Creatinine [Mass/Vol] 1.31 mg/dL High 0.73-1.22 [facility] Comment on above: Order Comment: Speci men Type: BLOOD SPECIMENOrdering Facility: [facility] Address: [address] [place] [address] Performed By: #### 2 4323-8 ####[facility] LABIA [id number] [place] [address] Creatinine and Glomerular filtration rate.predicted panel (S/P/Bld) 55 mL/min/1.73m??? Low >=60 [facility] Comment on above: Order Comment: Speci men Type: BLOOD SPECIMENOrdering Facility: [facility] Address: [address] [place] [address] Result Comment: Janae mated Glomerular Filtration Rate (eGFR) is calculated using the 2020 CKD-EPI creatinine equation. This equation utilizes serum creatinine, sex, and age as parameters. The creatinine assay has traceable calibration to isotope dilution-mass spectrometry. Refer to KDIGO guidelines for clinical interpretation. In patients with unstable renal function, e.g. those with acute kidney injury, the eGFR may not accurately reflect actual GFR. Performed By: #### 2 4323-8 ####[facility] LABCLIA [id number] [place] [address] Glucose [Mass/Vol] 127 mg/dL High 74-99 [facility] Comment on above: Order Comment: Speci men Type: BLOOD SPECIMENOrdering Facility: [facility] Address: [address] [place] [address] Result Comment: The [place] Diabetes Association (ADA) provides guidance for cutoff values for fasting glucose and random glucose. The ADA defines fasting as no caloric intake for at least 8 hours. Fasting plasma glucose results between 100 to 125 mg/dL indicate increased risk for diabetes (prediabetes).Fasting plasma glucose results greater than or equal to 126 mg/dL meet the criteria for diagnosis of diabetes. In the absence of unequivocal hyperglycemia, results should be confirmed by repeat testing. In a patient with classic symptoms of hyperglycemia or hyperglycemic crisis, random plasma glucose results greater than or equal to 200 mg/dL meet the criteria for diagnosis of diabetes.Reference: Standards of Medical Care in Diabetes 2016, [place] [employer]. Diabetes Care. 2016.39(Suppl 1). Performed By: #### 2 4323-8 ####[facility] LABCLIA [id number] [place] [address] Potassium [Moles/Vol] 4.4 mmol/L Normal 3.7-5.1 [facility] Comment on above: Order Comment: Speci men Type: BLOOD SPECIMENOrdering Facility: [facility] Address: [address] [place] [id number] Performed By: #### 2 4323-8 ####[facility] LABCLIA [id number] [place] [address] Protein [Mass/Vol] 6.3 g/dL Normal 6.3-8.0 [facility] Comment on above: Order Comment: Speci men Type: BLOOD SPECIMENOrdering Facility: [facility] Address: [address] [place] [address] Performed By: #### 2 4323-8 ####[facility] LABCLIA [id number] [place] [address] Sodium [Moles/Vol] 135 mmol/L Low 136-144 [facility] Comment on above: Order Comment: Speci men Type: BLOOD SPECIMENOrdering Facility: [facility] Address: [address] [place] [address] Performed By: #### 2 4323-8 ####[facility] LABCLIA [id number] [place] [address] Urea nitrogen [Mass/Vol] 23 mg/dL Normal 9-24 [facility] Comment on above: Order Comment: Speci men Type: BLOOD SPECIMENOrdering Facility: [facility] Address: [address] [place] [address] Performed By: #### 2 4323-8 ####[facility] LABCLIA [id number] [place] [address] Automated basophil %Ordered By: Igor Morrow on 07-09-2023 Basophils/100 WBC (Bld) 0.3 % Normal . [facility] Comment on above: Performed By: #### S CAN CBC #### [facility] [address] Automated basophil countOrde red By: Igor Morrow on 07-09-2023 Basophils (Bld) [#/Vol] 0.0 10*3/uL Normal 0.0-0.2 [facility] Comment on above: Performed By: #### S CAN CBC #### [facility] [address] Automated blood monocyte cou ntOrdered By: Igor Morrow on 01-09-2024 Monocytes (Bld) [#/Vol] 1.3 10*3/uL High 0.0-0.8 [facility] Comment on above: Performed By: #### S CAN CBC #### [facility] [address] Automated eosinophil %Ordere d By: Igor Cristhian on 07-09-2023 Eosinophils/100 WBC (Bld) 2.4 % Normal . [facility] Comment on above: Performed By: #### S CAN CBC #### [address] Automated eosinophil countOr dered By: Igor Terrazasel on 07-09-2023 Eosinophils (Bld) [#/Vol] 0.2 10*3/uL Normal 0.0-0.45 [facility] Comment on above: Performed By: #### S CAN CBC #### [address] Automated monocyte %Ordered By: Igor Morrow on 07-09-2023 Monocytes/100 WBC (Bld) 12.8 % Normal . [facility] Comment on above: Performed By: #### S CAN CBC #### [address] Automated neutrophil %Ordere d By: Igor Morrow on 07-09-2023 Neutrophils/100 WBC (Bld) 75.2 % Normal . [facility] Comment on above: Performed By: #### S CAN CBC #### [address] Basic Metabolic Panelon Creatinine Clr Calc Pharmacy 62.81 Normal [facility] Comment on above: Result Comment: PERF ORMED BY: [place] [address] PATHOLOGIST PHOTO PRODUCER EDMUNDO QUACH M.D. Performed By: #### B MP ####[facility] [address] [place] [address] GFR/1.73 sq M.predicted MDRD (S/P/Bld) [Vol rate/Area] mL/min/{1.73_m2} Normal [facility] Comment on above: Performed By: #### B MP ####[place] [id number] [facility] [[email or web address]] Calcium [Mass/volume] in Ser um or PlasmaOrdered By: Igor Morrow on 07-09-2023 Calcium [Mass/Vol] 8.8 mg/dL Normal 8.6-10.3 [facility] Comment on above: Performed By: #### B MP ####[place] [id number] [facility] [[email or web address]] Carbon dioxide, total [Moles /volume] in Serum or PlasmaOrdered By: Igor Morrow on 07-09-2023 CO2 [Moles/Vol] 24.5 mmol/L Normal 21.0-31.0 [facility] Comment on above: Performed By: #### B MP ####[place] [id number] [facility] [[email or web address]] Chloride [Moles/volume] in S kishor or PlasmaOrdered By: Igor Morrow on 07-09-2023 Chloride [Moles/Vol] 103 mmol/L Normal 98-107 [facility] Comment on above: Performed By: #### B MP ####[place] [id number] [facility] [[email or web address]] Creatinine [Mass/volume] in Serum or PlasmaOrdered By: Igor Morrow on 07-09-2023 Creatinine [Mass/Vol] 1.14 mg/dL Normal 0.70-1.30 [facility] Comment on above: Performed By: #### B MP ####[place] [id number] [facility] [[email or web address]] ECG 12 lead ECGon 07-09-2023 ECG 12 lead ECG [facility] [place] [address] [place] [address] Electrocardiograph Report Signed Patient: Missy Salgado MR#: [id number] 5 : 1940 Acct:[id number] Age/Sex: 83 / M ADM Date: 07/09/23 Loc: [place] Room: Type: [facility] Attending Dr: Otto Do MD Ordering Provider: Igor Morrow MD Date of Service: 07/09/2303/24/539 ECG/ECG 12 lead ECG: preop Copies to: Test Reason : Blood Pressure : / mmHG Vent. Rate : 097 BPM Atrial Rate : 097 BPM P-R Int : 162 ms QRS Dur : 092 ms QT Int : 358 ms P-R-T Axes : 029 -29 108 degrees QTc Int : 454 ms Normal sinus rhythm Left ventricular hypertrophy with repolarization abnormality Possible Lateral infarct (cited on or before 09-JUL-2023) Abnormal ECG When compared with ECG of 09-JUL-2023 06:00, (Unconfirmed) No significant change was found Confirmed by Skip Ocasio ([id number]) on 07/09/2023 10:31:32 AM Referred By: Electronically Signed By:Skip Ocasio Transcribed By: MUS Signed By Skip Ocasio MD 07/09/23 1031 Normal [facility] Erythrocyte distribution wid th [Ratio] by Automated countOrdered By: Igor Morrow on 07-09-2023 Erythrocyte distribution width (RBC) [Ratio] 14.1 % Normal 12.0-14.8 [facility] Comment on above: Performed By: #### S CAN CBC #### [facility] [address] [place] [address] [place] Erythrocytes [#/volume] in B lood by Automated countOrdered By: Igor Morrow on 07-09-2023 RBC (Bld) [#/Vol] 3.47 10*6/uL Low 3.90-5.60 [facility] Comment on above: Performed By: #### S CAN CBC #### [facility] [address] [place] [id number] [place] Glucose [Mass/volume] in Ser um or PlasmaOrdered By: Igor Morrow on 07-09-2023 Glucose [Mass/Vol] 95 mg/dL Normal 70-100 [facility] Comment on above: ADA recommended refe rence rangeRandom Glucose Reference Range is dependent on time and content of last meal. Glucose of more than 200 mg/dL in a nonstressed, ambulatory subject supports the diagnosis of Diabetes Mellitus. Result Comment: [place] Glucose Reference Range is dependent on time and content of last meal. Glucose of more than 200 mg/dL in a nonstressed, ambulatory subject supports the diagnosis of Diabetes Mellitus. ADA recommended reference range Performed By: #### B MP ####[facility] Hematocrit [Volume Fraction] of Blood by Automated countOrdered By: Igor Morrow on 07-09-2023 Hematocrit (Bld) [Volume fraction] 36.5 % Low 38.8-50.0 [facility] Comment on above: Performed By: #### S CAN CBC #### [facility] [address] Hemoglobin [Mass/volume] in BloodOrdered By: Igor Morrow on 07-09-2023 Hemoglobin (Bld) [Mass/Vol] 12.6 g/dL Low 13.0-17.0 [facility] Comment on above: Performed By: #### S CAN CBC #### [address] Leukocytes [#/volume] correc tony for nucleated erythrocytes in Blood by Automated counOrdered By: Igor Morrow on 07-09-2023 WBC corrected for nucl RBC Auto (Bld) [#/Vol] 9.9 10*3/uL 4.1-10.5 [facility] Leukocytes [#/volume] in Blo od by Automated countOrdered By: Igor Morrow on 07-09-2023 WBC (Bld) [#/Vol] 9.9 10*3/uL Normal 4.1-10.5 [facility] Comment on above: Performed By: #### S CAN CBC #### [facility] [address] [place] [address] [place] Lymphocytes [#/volume] in Bl ood by Automated countOrdered By: Igor Morrow on 07-09-2023 Lymphocytes (Bld) [#/Vol] 0.9 10*3/uL Low 1.00-4.8 [facility] Comment on above: Performed By: #### S CAN CBC #### [address] Lymphocytes/100 leukocytes i n Blood by Automated countOrdered By: Igor Morrow on 07-09-2023 Lymphocytes/100 WBC (Bld) 9.3 % Normal . [facility] Comment on above: Performed By: #### S CAN CBC #### [address] MCH [Entitic mass] by Automa tony countOrdered By: Igor Morrow on 07-09-2023 MCH (RBC) [Entitic mass] 36.4 pg High 27.5-35.2 [facility] Comment on above: Performed By: #### S CAN CBC #### [facility] [address] [place] [address] MCHC Auto (RBC) [Mass/Vol]Or dered By: Igor Morrow on 07-09-2023 MCHC (RBC) [Mass/Vol] 34.5 g/dL 32.5-35.6 [facility] MCV [Entitic volume] by Auto mated countOrdered By: Igor Morrow on 07-09-2023 MCV (RBC) [Entitic vol] 105.2 fL High 83.5-101 [facility] Comment on above: Performed By: #### S CAN CBC #### [address] Macrocytes LM Ql (Bld)Ordere d By: Igor Morrow on 07-09-2023 Macrocytes Ql (Bld) Slight [facility] Neutrophils [#/volume] in Bl ood by Automated countOrdered By: Igor Morrow on 07-09-2023 Neutrophils (Bld) [#/Vol] 7.4 10*3/uL Normal 1.8-7.7 [facility] Comment on above: Performed By: #### S CAN CBC #### [address] No Panel InformationOrdered By: Igor Morrow on 07-09-2023 Estimated GFR (CKD-EPI) > 60.0 mL/Min [facility] Creatinine Clearance (Chem 62.81 [facility] Nucleated erythrocytes [Pres ence] in Blood by Automated countOrdered By: Igor Morrow on 07-09-2023 Nucleated RBC Auto Ql (Bld) 0.2 /100{WBC} 0-0.5 [facility] Ovalocyte detectionOrdered B y: Igor Cristhian on 07-09-2023 Ovalocytes LM Ql (Bld) Slight Fi [facility] Platelet adequacy [Presence] in Blood by Light microscopyOrdered By: Igor Morrow on 07-09-2023 Platelets LM Ql (Bld) Decreased Normal [facility] Platelet mean volume [Entiti c volume] in Blood by Automated countOrdered By: Igor Morrow on 07-09-2023 Platelet mean volume (Bld) [Entitic vol] 9.8 fL Normal 6.6-10.1 [facility] Comment on above: Performed By: #### S CAN CBC #### [facility] [address] Platelet morphology finding [Identifier] in BloodOrdered By: Igor Morrow on 07-09-2023 Platelet morphology finding Nom (Bld) N/A [facility] Platelets [#/volume] in Bloo d by Automated countOrdered By: Igor Morrow on 07-09-2023 Platelets (Bld) [#/Vol] 112 10*3/uL Low 150-450 [facility] Comment on above: Performed By: #### S CAN CBC #### [facility] [address] [place] [address] [place] Potassium [Moles/volume] in Serum or PlasmaOrdered By: Igor Morrow on 07-09-2023 Potassium [Moles/Vol] 4.6 mmol/L Normal 3.5-5.1 [facility] Comment on above: Performed By: #### B MP ####[facility] [address] RBC morphologyOrdered By: Lele Morrow on 07-09-2023 RBC morphology finding Nom (Bld) N/A [facility] Scan and CBCon 07-09-2023 Macrocytosis Slight Normal [facility] Comment on above: Performed By: #### S CAN CBC #### [address] Mean Corpuscular HGB Conc 34.5 g/dL Normal 32.5-35.6 [facility] Comment on above: Performed By: #### S CAN CBC #### [address] NRBC% 0.2 /100{WBC} Normal 0-0.5 [facility] Comment on above: Performed By: #### S CAN CBC #### [facility] [address] Ovalocytes Slight Normal [facility] Comment on above: Performed By: #### S CAN CBC #### [address] Platelet Estimate Decreased Normal Normal [facility] Comment on above: Result Comment: PERF ORMED BY: [place] [address] PATHOLOGIST PHOTO PRODUCER EDMUNDO QUACH M.D. Performed By: #### S CAN CBC #### [address] Serum or plasma anion gap de terminationOrdered By: Igor Morrow on 07-09-2023 Anion gap [Moles/Vol] 12.1 mmol/L Normal 6.0-15.0 [facility] Comment on above: Performed By: #### B MP ####[place] [address] [place] Sodium [Moles/volume] in Ser um or PlasmaOrdered By: Igor Morrow on 07-09-2023 Sodium [Moles/Vol] 135 mmol/L Low 136-145 [facility] Comment on above: Performed By: #### B MP ####[address] Urea nitrogen [Mass/volume] in Serum or PlasmaOrdered By: Igor Morrow on 07-09-2023 Urea nitrogen [Mass/Vol] 22 mg/dL Normal 7-25 [facility] Comment on above: Performed By: #### B MP ####[facility] [address] [place] [address] [facility] [[email or web address]] XR chest 1V portableon 07-09 XR chest 1V portable [facility] [address] [place] [address] XRay Report Signed Patient: Missy Salgado MR#: [id number] 5 : 1940 Acct:[id number] Age/Sex: 83 / M ADM Date: 07/09/23 Loc: [place] Room: Type: [facility] Attending Dr: Otto Do MD Copies to: Otto Do MD Ordering Provider: Otto Do MD Date of Service: 07/09/23 XR/XR chest 1V portable: S/P INFUSAPORT SINGLE VIEW CHEST CLINICAL HISTORY: Status post port infusion. COMPARISON: None FINDINGS: Right-sided port is identified tip in the SVC/right atrial junction. Cardiomegaly with vascular congestion is present. No pneumothorax, large pleural effusion or free air. XR/XR chest 1V portable IMPRESSION: RIGHT-SIDED PORT IS IDENTIFIED TIP AT THE SVC/RIGHT ATRIAL JUNCTION. NO PNEUMOTHORAX. Impression dictated by: Luis Todd Jr., D.O.07/09/2023 9:12 AM Dictation Location: [place] [address] Transcribed By: [facility] 07/09/23911 Dictated By: Luis Todd Jr, DO 07/09/23910 Signed By: 07/09/23911 Normal [facility] CNPNon 07-04-2023 CNPN Normal [facility] CBC W Auto Differential pane l (Bld)on 07-03-2023 Basophils (Bld) [#/Vol] 0.34 10*3/uL High <0.11 [facility] Comment on above: Order Comment: Speci men Type: BLOOD SPECIMENOrdering Facility: [facility] Address: [address] [place] [address] Performed By: #### 5 7021-8 ####[facility] LABCLIA [id number] [place], [place] [address]JQSTGFRXMMARIETTA [facility] LABCLIA [id number] [place] [address] [place] Basophils/100 WBC (Bld) 4.0 % Normal [facility] Comment on above: Order Comment: Speci men Type: BLOOD SPECIMENOrdering Facility: [facility] Address: [address] [place] [address] Performed By: #### 5 7021-8 ####[facility] LABCLIA [id number] [address] LABCLIA [id number] [place] [address] [place] Differential cell count method Nom (Bld) Manual Normal [facility] Comment on above: Order Comment: Speci men Type: BLOOD SPECIMENOrdering Facility: [facility] Address: [address] [place] [address] Performed By: #### 5 7021-8 ####[facility] LABCLIA [id number] [address] LABCLIA [id number] [place] [address] [place] Eosinophils (Bld) [#/Vol] 0.00 10*3/uL Normal <0.46 [facility] Comment on above: Order Comment: Speci men Type: BLOOD SPECIMENOrdering Facility: [facility] Address: [address] [place] [address] Performed By: #### 5 7021-8 ####[facility] LABCLIA [id number] [address] LABCLIA [id number] [place] [address] [place] Eosinophils/100 WBC (Bld) 0.0 % Normal [facility] Comment on above: Order Comment: Speci men Type: BLOOD SPECIMENOrdering Facility: [facility] Address: [address] [place] [address] Performed By: #### 5 7021-8 ####[facility] LABCLIA [id number] [place] [address] LABCLIA [id number] [place] [address] [place] Erythrocyte distribution width (RBC) [Ratio] 13.6 % Normal 11.5-15.0 [facility] Comment on above: Order Comment: Speci men Type: BLOOD SPECIMENOrdering Facility: [facility] Address: [address] [place] [address] Performed By: #### 5 7021-8 ####[facility] LABCLIA [id number] [address] LABCLIA [id number] [place] [address] [place] Hematocrit (Bld) [Volume fraction] 38.6 % Low 39.0-51.0 [facility] Comment on above: Order Comment: Speci men Type: BLOOD SPECIMENOrdering Facility: [facility] Address: [address] [place] [address] Performed By: #### 5 7021-8 ####[facility] LABCLIA [id number] [address] LABCLIA [id number] [place] [address] [place] Hemoglobin (Bld) [Mass/Vol] 13.0 g/dL Normal 13.0-17.0 [facility] Comment on above: Order Comment: Speci men Type: BLOOD SPECIMENOrdering Facility: [facility] Address: [address] [place] [address] Performed By: #### 5 7021-8 ####[facility] LABCLIA [id number] [address] LABCLIA [id number] [place] [address] [place] Lymphocytes (Bld) [#/Vol] 1.19 10*3/uL Normal 1.00-4.00 [facility] Comment on above: Order Comment: Speci men Type: BLOOD SPECIMENOrdering Facility: [facility] Address: [address] [place] [address] Performed By: #### 5 7021-8 ####[facility] LABCLIA [id number] [address] LABCLIA [id number] [place] [address] [place] Lymphocytes/100 WBC (Bld) 14.0 % Normal [facility] Comment on above: Order Comment: Speci men Type: BLOOD SPECIMENOrdering Facility: [facility] Address: [address] [place] [address] Performed By: #### 5 7021-8 ####[facility] LABCLIA [id number] [address] LABCLIA [id number] [place] [address] [place] MCH (RBC) [Entitic mass] 35.4 pg High 26.0-34.0 [facility] Comment on above: Order Comment: Speci men Type: BLOOD SPECIMENOrdering Facility: [facility] Address: [address] [place] [address] Performed By: #### 5 7021-8 ####[facility] LABCLIA [id number] [address] LABCLIA [id number] [place] [address] [place] MCHC (RBC) [Mass/Vol] 33.7 g/dL Normal 30.5-36.0 [facility] Comment on above: Order Comment: Speci men Type: BLOOD SPECIMENOrdering Facility: [facility] Address: [address] [place] [address] Performed By: #### 5 7021-8 ####[facility] LABCLIA [id number] [place] [address] LABCLIA [id number] [place] [address] [place] MCV (RBC) [Entitic vol] 105.2 fL High 80.0-100.0 [facility] Comment on above: Order Comment: Speci men Type: BLOOD SPECIMENOrdering Facility: [facility] Address: [address] [place] [address] Performed By: #### 5 7021-8 ####[facility] LABCLIA [id number] [address] LABCLIA [id number] [place] [address] [place] Monocytes (Bld) [#/Vol] 1.79 10*3/uL High <0.87 [facility] Comment on above: Order Comment: Speci men Type: BLOOD SPECIMENOrdering Facility: [facility] Address: [address] [place] [address] Performed By: #### 5 7021-8 ####[facility] LABCLIA [id number] [place] [address] LABCLIA [id number] [place] [address] [place] Monocytes/100 WBC (Bld) 21.0 % Normal C [facility] Comment on above: Order Comment: Speci men Type: BLOOD SPECIMENOrdering Facility: [facility] Address: [address] [place] [address] Performed By: #### 5 7021-8 ####[facility] LABCLIA [id number] [place] [address] LABCLIA [id number] [place] [address] [place] Neutrophils (Bld) [#/Vol] 5.19 10*3/uL Normal 1.45-7.50 [facility] Comment on above: Order Comment: Speci men Type: BLOOD SPECIMENOrdering Facility: [facility] Address: [address] [place] [address] Performed By: #### 5 7021-8 ####[facility] LABCLIA [id number] [address] LABCLIA [id number] [place] [address] [place] Neutrophils/100 WBC (Bld) 61.0 % Normal [facility] Comment on above: Order Comment: Speci men Type: BLOOD SPECIMENOrdering Facility: [facility] Address: [address] [place] [address] Performed By: #### 5 7021-8 ####[facility] LABCLIA [id number] [address] LABCLIA [id number] [place] [address] [place] Nucleated RBC (Bld) [#/Vol] 10*3/uL Normal <0.01 [facility] Comment on above: Order Comment: Speci men Type: BLOOD SPECIMENOrdering Facility: [facility] Address: [address] [place] [address] Performed By: #### 5 7021-8 ####[facility] LABCLIA [id number] [address] LABCLIA [id number] [place] [address] [place] Nucleated RBC/100 WBC (Bld) [Ratio] 0.0 /100 WBC Normal [facility] Comment on above: Order Comment: Speci men Type: BLOOD SPECIMENOrdering Facility: [facility] Address: [address] [place] [address] Performed By: #### 5 7021-8 ####[facility] LABCLIA [id number] [place] [address] LABCLIA [id number] [place] [address] [place] Ovalocytes LM Ql (Bld) Few Normal Cl [facility] Comment on above: Order Comment: Speci men Type: BLOOD SPECIMENOrdering Facility: [facility] Address: [address] [place] [address] Performed By: #### 5 7021-8 ####[facility] LABCLIA [id number] [address] LABCLIA [id number] [place] [address] [place] Platelet mean volume (Bld) [Entitic vol] 9.8 fL Normal 9.0-12.7 [facility] Comment on above: Order Comment: Speci men Type: BLOOD SPECIMENOrdering Facility: [facility] Address: [address] [place] [address] Performed By: #### 5 7021-8 ####[facility] LABCLIA [id number] [address] LABCLIA [id number] [place] [address] [place] Platelets (Bld) [#/Vol] 311 10*3/uL Normal 150-400 [facility] Comment on above: Order Comment: Speci men Type: BLOOD SPECIMENOrdering Facility: [facility] Address: [address] [place] [address] Performed By: #### 5 7021-8 ####[facility] LABCLIA [id number] [address] LABCLIA [id number] [place] [address] [place] Platelets Estimate (Bld) [#/Vol] Adequate Normal [facility] Comment on above: Order Comment: Speci men Type: BLOOD SPECIMENOrdering Facility: [facility] Address: [address] [place] [address] Performed By: #### 5 7021-8 ####[facility] LABCLIA [id number] [address] LABCLIA [id number] [place] [address] [place] Polychromasia LM Ql (Bld) Slight Normal [facility] Comment on above: Order Comment: Speci men Type: BLOOD SPECIMENOrdering Facility: [facility] Address: [address] [place] [address] Performed By: #### 5 7021-8 ####[facility] LABCLIA [id number] [address] LABCLIA [id number] [place] [address] [place] RBC (Bld) [#/Vol] 3.67 10*6/uL Low 4.20-6.00 [facility] Comment on above: Order Comment: Speci men Type: BLOOD SPECIMENOrdering Facility: [facility] Address: [address] [place] [address] Performed By: #### 5 7021-8 ####[facility] LABCLIA [id number] [address] LABCLIA [id number] [place] [address] [place] RED CELL MORPH Reviewed: see result s of individual morphologies Normal [facility] Comment on above: Order Comment: Speci men Type: BLOOD SPECIMENOrdering Facility: [facility] Address: [address] [place] [address] Performed By: #### 5 7021-8 ####[facility] LABCLIA [id number] [address] LABCLIA [id number] [place] [address] [place] WBC (Bld) [#/Vol] 8.51 10*3/uL Normal 3.70-11.00 [facility] Comment on above: Order Comment: Speci men Type: BLOOD SPECIMENOrdering Facility: [facility] Address: [address] [place] [address] Performed By: #### 5 7021-8 ####[facility] LABCLIA [id number] [place], [place] [address] [id number] [place] [id number] [place] CNOVSPon 07-03-2023 CNOVSP Normal [facility] metabolic 2000 panelon 07-03-2023 Albumin [Mass/Vol] 3.6 g/dL Low 3.9-4.9 [facility] Comment on above: Order Comment: Speci men Type: BLOOD SPECIMENOrdering Facility: [facility] Address: [address] [place] [address] Performed By: #### 2 4323-8 ####[facility] LABCLIA [id number] [place] [address] ALP [Catalytic activity/Vol] 103 U/L Normal 38-113 [facility] Comment on above: Order Comment: Speci men Type: BLOOD SPECIMENOrdering Facility: [facility] Address: [address] [place] [address] Performed By: #### 2 4323-8 ####[facility] LABCLIA [id number] [place] [address] ALT [Catalytic activity/Vol] 18 U/L Normal 10-54 [facility] Comment on above: Order Comment: Speci men Type: BLOOD SPECIMENOrdering Facility: [facility] Address: [address] [place] [address] Performed By: #### 2 4323-8 ####[facility] LABCLIA [id number] [place] [address] Anion gap [Moles/Vol] 7 mmol/L Low 9-18 [facility] Comment on above: Order Comment: Speci men Type: BLOOD SPECIMENOrdering Facility: [facility] Address: [address] [place] [address] Performed By: #### 2 4323-8 ####[facility] LABCLIA [id number] [place] [address] AST [Catalytic activity/Vol] 18 U/L Normal 14-40 [facility] Comment on above: Order Comment: Speci men Type: BLOOD SPECIMENOrdering Facility: [facility] Address: [address] [place] [address] Performed By: #### 2 4323-8 ####[facility] LABCLIA [id number] [place] [address] Bilirubin [Mass/Vol] 0.2 mg/dL Normal 0.2-1.3 [facility] Comment on above: Order Comment: Speci men Type: BLOOD SPECIMENOrdering Facility: [facility] Address: [address] [place] [address] Performed By: #### 2 4323-8 ####[facility] LABCLIA [id number] [place] [address] Calcium [Mass/Vol] 9.4 mg/dL Normal 8.5-10.2 [facility] Comment on above: Order Comment: Speci men Type: BLOOD SPECIMENOrdering Facility: [facility] Address: [address] [place] [address] Performed By: #### 2 4323-8 ####[facility] LABCLIA [id number] [place] [address] Chloride [Moles/Vol] 100 mmol/L Normal 97-105 [facility] Comment on above: Order Comment: Speci men Type: BLOOD SPECIMENOrdering Facility: [facility] Address: [address] [place] [address] Performed By: #### 2 4323-8 ####[facility] LABCLIA [id number] [place] [address] CO2 [Moles/Vol] 28 mmol/L Normal 22-30 [facility] Comment on above: Order Comment: Speci men Type: BLOOD SPECIMENOrdering Facility: [facility] Address: [address] [place] [address] Performed By: #### 2 4323-8 ####[facility] LABCLIA [id number] [place] [address] Creatinine [Mass/Vol] 1.48 mg/dL High 0.73-1.22 [facility] Comment on above: Order Comment: Speci men Type: BLOOD SPECIMENOrdering Facility: [facility] Address: [address] [place] [address] Performed By: #### 2 4323-8 ####[facility] LABCLIA [id number] [place] [address] Creatinine and Glomerular filtration rate.predicted panel (S/P/Bld) 47 mL/min/1.73m??? Low >=60 [facility] Comment on above: Order Comment: Speci men Type: BLOOD SPECIMENOrdering Facility: [facility] Address: [address] [place] [address] Result Comment: Janae mated Glomerular Filtration Rate (eGFR) is calculated using the 2020 CKD-EPI creatinine equation. This equation utilizes serum creatinine, sex, and age as parameters. The creatinine assay has traceable calibration to isotope dilution-mass spectrometry. Refer to KDIGO guidelines for clinical interpretation. In patients with unstable renal function, e.g. those with acute kidney injury, the eGFR may not accurately reflect actual GFR. Performed By: #### 2 4323-8 ####[facility] LABCLIA [id number] [place] [address] Glucose [Mass/Vol] 118 mg/dL High 74-99 [facility] Comment on above: Order Comment: Speci men Type: BLOOD SPECIMENOrdering Facility: [facility] Address: [address] [place] [address] Result Comment: The [place] [employer] (ADA) provides guidance for cutoff values for fasting glucose and random glucose. The ADA defines fasting as no caloric intake for at least 8 hours. Fasting plasma glucose results between 100 to 125 mg/dL indicate increased risk for diabetes (prediabetes).Fasting plasma glucose results greater than or equal to 126 mg/dL meet the criteria for diagnosis of diabetes. In the absence of unequivocal hyperglycemia, results should be confirmed by repeat testing. In a patient with classic symptoms of hyperglycemia or hyperglycemic crisis, random plasma glucose results greater than or equal to 200 mg/dL meet the criteria for diagnosis of diabetes.Reference: Standards of Medical Care in Diabetes 2016, [place] [employer]. Diabetes Care. 2016.39(Suppl 1). Performed By: #### 2 4323-8 ####[facility] LABCLIA [id number] [place] [address] Potassium [Moles/Vol] 4.1 mmol/L Normal 3.7-5.1 [facility] Comment on above: Order Comment: Speci men Type: BLOOD SPECIMENOrdering Facility: [facility] Address: [address] [place] [address] Performed By: #### 2 4323-8 ####[facility] LABIA [id number] [place] [address] Protein [Mass/Vol] 6.6 g/dL Normal 6.3-8.0 [facility] Comment on above: Order Comment: Speci men Type: BLOOD SPECIMENOrdering Facility: [facility] Address: [address] [place] [address] Performed By: #### 2 4323-8 ####[facility] LABCLIA [id number] [place] [address] Sodium [Moles/Vol] 135 mmol/L Low 136-144 [facility] Comment on above: Order Comment: Speci men Type: BLOOD SPECIMENOrdering Facility: [facility] Address: [address] [place] [address] Performed By: #### 2 4323-8 ####[facility] LABCLIA [id number] [place] [address] Urea nitrogen [Mass/Vol] 26 mg/dL High 9-24 [facility] Comment on above: Order Comment: Speci men Type: BLOOD SPECIMENOrdering Facility: [facility] Address: [address] [place] [address] Performed By: #### 2 4323-8 ####[facility] LABCLIA [id number] [place] [id number] IMMUNOFIXATION SCREEN, SERUM on 07-03-2023 INTERPRETATION (MPA) Atypical restricted bands are present in the IgG and lambda regions. Consistent with IgG lambda monoclonal gammopathy. Normal [facility] Comment on above: Order Comment: Speci men Type: BLOOD SPECIMENOrdering Facility: [facility] Address: [address] [place] [address] Performed By: #### I FESC ####[facility] LABCLIA [id number] [place] [address] [place] MPA RESULT M protein is present. Abnormal No M protein is identified. [facility] Comment on above: Order Comment: Speci men Type: BLOOD SPECIMENOrdering Facility: [facility] Address: [address] [place] [address] Performed By: #### I FES ####[facility] LABCLIA [id number] [place] [address] [place] STAFF REVIEW (MPA) Reviewed by Dr. Britton Ceballos MD Normal [facility] Comment on above: Order Comment: Speci men Type: BLOOD SPECIMENOrdering Facility: [facility] Address: [address] [place] [address] Performed By: #### I FESC ####[facility] LABCLIA [id number] [place] [address] [place] IMMUNOGLOBULINS GAMon 2023 IgA [Mass/Vol] 122 mg/dL Normal 70-400 [facility] Comment on above: Order Comment: Speci men Type: BLOOD SPECIMENOrdering Facility: [facility] Address: [address] [place] [address] Performed By: #### S ERIMM ####[facility] LABCLIA [id number] [place] [address] [place] IgG [Mass/Vol] 906 mg/dL Normal 700-1600 [facility] Comment on above: Order Comment: Speci men Type: BLOOD SPECIMENOrdering Facility: [facility] Address: [address] [place] [address] Performed By: #### S ERIMM ####[facility] LABCLIA [id number] [place] [address] [place] IgM [Mass/Vol] 19 mg/dL Low 40-230 [facility] Comment on above: Order Comment: Speci men Type: BLOOD SPECIMENOrdering Facility: [facility] Address: [address] [place] [address] Performed By: #### S ERIMM ####[facility] LABCLIA [id number] [place] [address] [place] KAPPA/HERNANDEZ,FREE,SERon 2023 Immunoglobulin light chains.kappa.free (S) [Mass/Vol] 22.1 mg/L High 3.3-19.4 [facility] Comment on above: Order Comment: Speci men Type: BLOOD SPECIMENOrdering Facility: [facility] Address: [address] [place] [address] Result Comment: Rare ly, increased serum free light chains levels may not be detected or accurately quantified due to prozone phenomenon or in high viscosity samples using this immunoturbidimetric assay. Correlation with other laboratory results and clinical findings is recommended.The [place] Free Light Chain was performed using the Binding Site Optilite immunoturbidimetric method. Result obtained with different assay methods or kits cannot be used interchangeably. Performed By: #### K LFRS ####[facility] LABCLIA [id number] [place] [address] [place] Immunoglobulin light chains.kappa/Immunoglobu natanael light chains.lambda (S) [Mass ratio] 1.87 High 0.26-1.65 [facility] Comment on above: Order Comment: Speci men Type: BLOOD SPECIMENOrdering Facility: [facility] Address: [address] [place] [address] Performed By: #### K LFRS ####[facility] LABCLIA [id number] [place] [address] [place] Immunoglobulin light chains.lambda.free [Mass/Vol] 11.8 mg/L Normal 5.7-26.3 [facility] Comment on above: Order Comment: Speci men Type: BLOOD SPECIMENOrdering Facility: [facility] Address: [address] [place] [address] Result Comment: Rare ly, increased serum free light chains levels may not be detected or accurately quantified due to prozone phenomenon or in high viscosity samples using this immunoturbidimetric assay. Correlation with other laboratory results and clinical findings is recommended.The Lambda Free Light Chain was performed using the Binding Site Optilite immunoturbidimetric method. Result obtained with different assay methods or kits cannot be used interchangeably. Performed By: #### K LFRS ####[facility] LABIA [id number] [place] [address] [place] PROTEIN ELECTROPHORESIS SERU M (P)on 07-03-2023 Albumin [Mass/Vol] 3.05 g/dL Low 3.43-5.41 [facility] Comment on above: Order Comment: Speci men Type: BLOOD SPECIMENOrdering Facility: [facility] Address: [address] [place] [address] Performed By: #### L [id number] ####[facility] LABCLIA [id number] [place] [address] [place] Alpha 1 globulin Elph [Mass/Vol] 0.35 g/dL Normal 0.18-0.43 [facility] Comment on above: Order Comment: Speci men Type: BLOOD SPECIMENOrdering Facility: [facility] Address: [address] [place] [address] Performed By: #### L [id number] ####[facility] LABCLIA [id number] [place] [address] [place] Alpha 2 globulin Elph [Mass/Vol] 0.98 g/dL Normal 0.42-0.98 [facility] Comment on above: Order Comment: Speci men Type: BLOOD SPECIMENOrdering Facility: [facility] Address: [address] [place] [address] Performed By: #### L [id number] ####[facility] LABCLIA [id number] [place] [address] [place] Beta globulin Elph [Mass/Vol] 0.74 g/dL Normal 0.61-1.17 [facility] Comment on above: Order Comment: Speci men Type: BLOOD SPECIMENOrdering Facility: [facility] Address: [address] [place] [address] Performed By: #### L [id number] ####[facility] LABIA [id number] [place] [address] [place] Gamma globulin Elph [Mass/Vol] 0.79 g/dL Normal 0.53-1.51 [facility] Comment on above: Order Comment: Speci men Type: BLOOD SPECIMENOrdering Facility: [facility] Address: [address] [place] [address] Performed By: #### L [id number] ####[facility] LABIA [id number] [place] [address] [place] INTERPRETATION COMMENT FOR PROTEIN ELECTROPHORESIS See separate immunofixation report for characterization of monoclonal gammopathy. Normal [facility] Comment on above: Order Comment: Speci men Type: BLOOD SPECIMENOrdering Facility: [facility] Address: [address] [place] [address] Performed By: #### L [id number] ####[facility] LABIA [id number] [place] [address] [place] M-PROTEIN LOCATION Gamma Fraction 1 Normal [facility] Comment on above: Order Comment: Speci men Type: BLOOD SPECIMENOrdering Facility: [facility] Address: [address] [place] [address] Performed By: #### L [id number] ####[facility] LABCLIA [id number] [place] [address] [place] Protein Fractions [Interp] An M protein is identified on protein electrophoresis. Abnormal No definitive M protein is identified on protein electrophor esis. [facility] Comment on above: Order Comment: Speci men Type: BLOOD SPECIMENOrdering Facility: [facility] Address: [address] [place] [address] Performed By: #### L [id number] ####[facility] LABCLIA [id number] [place] [address] [place] Protein.monoclonal Elph [Mass/Vol] 0.53 g/dL High <=0.00 [facility] Comment on above: Order Comment: Speci men Type: BLOOD SPECIMENOrdering Facility: [facility] Address: [address] [place] [address] Performed By: #### L [id number] ####[facility] LABCLIA [id number] [place] [address] [place] SPE STAFF REVIEW Reviewed by Dr. Britton Ceballos MD Normal [facility] Comment on above: Order Comment: Speci men Type: BLOOD SPECIMENOrdering Facility: [facility] Address: [address] [place] [address] Performed By: #### L [id number] ####[facility] LABCLIA [id number] [place] [address] [place] Prot SerPl-mCncon 07-03-2023 Protein [Mass/Vol] 5.9 g/dL Low 6.3-8.0 [facility] Comment on above: Order Comment: Speci men Type: BLOOD SPECIMENOrdering Facility: [facility] Address: [address] [place] [address] Performed By: #### 2 885-2 ####[facility] LABCLIA [id number] [place] [address] [place] CNPNon 06-21-2023 CNPN Normal [facility] CBC W Auto Differential pane l (Bld)on 06-19-2023 Basophils (Bld) [#/Vol] 0.00 10*3/uL Normal <0.11 [facility] Comment on above: Order Comment: Speci men Type: BLOOD SPECIMENOrdering Facility: [facility] Address: [address] [place] [address] Performed By: #### 5 7021-8 ####[facility] LABCLIA [id number] [address] LABCLIA [id number] [place] [address] [place] Basophils/100 WBC (Bld) 0.0 % Normal [facility] Comment on above: Order Comment: Speci men Type: BLOOD SPECIMENOrdering Facility: [facility] Address: [address] [place] [address] Performed By: #### 5 7021-8 ####[facility] LABCLIA [id number] [address] LABCLIA [id number] [place] [address] [place] Differential cell count method Nom (Bld) Manual Normal [facility] Comment on above: Order Comment: Speci men Type: BLOOD SPECIMENOrdering Facility: [facility] Address: [address] [place] [address] Performed By: #### 5 7021-8 ####[facility] LABCLIA [id number] [address] LABCLIA [id number] [place] [address] [place] Eosinophils (Bld) [#/Vol] 0.08 10*3/uL Normal <0.46 [facility] Comment on above: Order Comment: Speci men Type: BLOOD SPECIMENOrdering Facility: [facility] Address: [address] [place] [address] Performed By: #### 5 7021-8 ####[facility] LABCLIA [id number] [address] LABCLIA [id number] [place] [address] [place] Eosinophils/100 WBC (Bld) 1.0 % Normal [facility] Comment on above: Order Comment: Speci men Type: BLOOD SPECIMENOrdering Facility: [facility] Address: [address] [place] [address] Performed By: #### 5 7021-8 ####[facility] LABCLIA [id number] [address] LABCLIA [id number] [place] [address] [place] Erythrocyte distribution width (RBC) [Ratio] 13.7 % Normal 11.5-15.0 [facility] Comment on above: Order Comment: Speci men Type: BLOOD SPECIMENOrdering Facility: [facility] Address: [address] [place] [address] Performed By: #### 5 7021-8 ####[facility] LABCLIA [id number] [address] LABCLIA [id number] [place] [address] [place] Hematocrit (Bld) [Volume fraction] 38.2 % Low 39.0-51.0 [facility] Comment on above: Order Comment: Speci men Type: BLOOD SPECIMENOrdering Facility: [facility] Address: [address] [place] [address] Performed By: #### 5 7021-8 ####[facility] LABCLIA [id number] [place] [address] LABCLIA [id number] [place] [address] [place] Hemoglobin (Bld) [Mass/Vol] 13.2 g/dL Normal 13.0-17.0 [facility] Comment on above: Order Comment: Speci men Type: BLOOD SPECIMENOrdering Facility: [facility] Address: [address] [place] [address] Performed By: #### 5 7021-8 ####[facility] LABCLIA [id number] [address] LABCLIA [id number] [place] [address] [place] Lymphocytes (Bld) [#/Vol] 0.98 10*3/uL Low 1.00-4.00 [facility] Comment on above: Order Comment: Speci men Type: BLOOD SPECIMENOrdering Facility: [facility] Address: [address] [place] [address] Performed By: #### 5 7021-8 ####[facility] LABCLIA [id number] [address] LABCLIA [id number] [place] [address] [place] Lymphocytes/100 WBC (Bld) 12.0 % Normal [facility] Comment on above: Order Comment: Speci men Type: BLOOD SPECIMENOrdering Facility: [facility] Address: [address] [place] [address] Performed By: #### 5 7021-8 ####[facility] LABCLIA [id number] [address] LABCLIA [id number] [place] [address] [place] MCH (RBC) [Entitic mass] 35.7 pg High 26.0-34.0 [facility] Comment on above: Order Comment: Speci men Type: BLOOD SPECIMENOrdering Facility: [facility] Address: [address] [place] [address] Performed By: #### 5 7021-8 ####[facility] LABCLIA [id number] [address] LABCLIA [id number] [place] [address] [place] MCHC (RBC) [Mass/Vol] 34.6 g/dL Normal 30.5-36.0 [facility] Comment on above: Order Comment: Speci men Type: BLOOD SPECIMENOrdering Facility: [facility] Address: [address] [place] [address] Performed By: #### 5 7021-8 ####[facility] LABCLIA [id number] [address] LABCLIA [id number] [place] [address] [place] MCV (RBC) [Entitic vol] 103.2 fL High 80.0-100.0 [facility] Comment on above: Order Comment: Speci men Type: BLOOD SPECIMENOrdering Facility: [facility] Address: [address] [place] [address] Performed By: #### 5 7021-8 ####[facility] LABCLIA [id number] [address] LABCLIA [id number] [place] [address] [place] Monocytes (Bld) [#/Vol] 1.47 10*3/uL High <0.87 [facility] Comment on above: Order Comment: Speci men Type: BLOOD SPECIMENOrdering Facility: [facility] Address: [address] [place] [address] Performed By: #### 5 7021-8 ####[facility] LABCLIA [id number] [place] [address] LABCLIA [id number] [place] [address] [place] Monocytes/100 WBC (Bld) 18.0 % Normal [facility] Comment on above: Order Comment: Speci men Type: BLOOD SPECIMENOrdering Facility: [facility] Address: [address] [place] [address] Performed By: #### 5 7021-8 ####[facility] LABCLIA [id number] [place] [address] LABCLIA [id number] [place] [address] [place] Neutrophils (Bld) [#/Vol] 5.65 10*3/uL Normal 1.45-7.50 [facility] Comment on above: Order Comment: Speci men Type: BLOOD SPECIMENOrdering Facility: [facility] Address: [address] [place] [address] Performed By: #### 5 7021-8 ####[facility] LABCLIA [id number] [place] [address] LABCLIA [id number] [place] [address] [place] Neutrophils/100 WBC (Bld) 69.0 % Normal [facility] Comment on above: Order Comment: Speci men Type: BLOOD SPECIMENOrdering Facility: [facility] Address: [address] [place] [address] Performed By: #### 5 7021-8 ####[facility] LABCLIA [id number] [address] LABCLIA [id number] [place] [address] [place] Nucleated RBC (Bld) [#/Vol] 0.08 10*3/uL High <0.01 [facility] Comment on above: Order Comment: Speci men Type: BLOOD SPECIMENOrdering Facility: [facility] Address: [address] [place] [address] Performed By: #### 5 7021-8 ####[facility] LABCLIA [id number] [address] LABCLIA [id number] [place] [address] [place] Nucleated RBC/100 WBC (Bld) [Ratio] 1.0 /100 WBC Normal [facility] Comment on above: Order Comment: Speci men Type: BLOOD SPECIMENOrdering Facility: [facility] Address: [address] [place] [address] Performed By: #### 5 7021-8 ####[facility] LABCLIA [id number] [address] LABCLIA [id number] [place] [address] [place] Ovalocytes LM Ql (Bld) Few Normal [facility] Comment on above: Order Comment: Speci men Type: BLOOD SPECIMENOrdering Facility: [facility] Address: [address] [place] [address] Performed By: #### 5 7021-8 ####[facility] LABCLIA [id number] [address] LABCLIA [id number] [place] [address] [place] Platelet mean volume (Bld) [Entitic vol] 11.8 fL Normal 9.0-12.7 [facility] Comment on above: Order Comment: Speci men Type: BLOOD SPECIMENOrdering Facility: [facility] Address: [address] [place] [address] Performed By: #### 5 7021-8 ####[facility] LABCLIA [id number] [address] LABCLIA [id number] [place] [address] [place] Platelets (Bld) [#/Vol] 95 10*3/uL Low 150-400 [facility] Comment on above: Order Comment: Speci men Type: BLOOD SPECIMENOrdering Facility: [facility] Address: [address] [place] [address] Result Comment: Resu lts checked and verified.No clot detected. Performed By: #### 5 7021-8 ####[facility] LABCLIA [id number] [address] LABCLIA [id number] [place] [address] [place] Platelets Estimate (Bld) [#/Vol] Decreased Normal [facility] Comment on above: Order Comment: Speci men Type: BLOOD SPECIMENOrdering Facility: [facility] Address: [address] [place] [address] Performed By: #### 5 7021-8 ####[facility] LABCLIA [id number] [address] LABCLIA [id number] [place] [address] [place] RBC (Bld) [#/Vol] 3.70 10*6/uL Low 4.20-6.00 [facility] Comment on above: Order Comment: Speci men Type: BLOOD SPECIMENOrdering Facility: [facility] Address: [address] [place] [address] Performed By: #### 5 7021-8 ####[facility] LABCLIA [id number] [address] LABCLIA [id number] [place] [address] [place] RED CELL MORPH Reviewed: see result s of individual morphologies Normal [facility] Comment on above: Order Comment: Speci men Type: BLOOD SPECIMENOrdering Facility: [facility] Address: [address] [place] [address] Performed By: #### 5 7021-8 ####[facility] LABCLIA [id number] [place], [place] [address]HQFDCWKDTM[facility] LABCLIA [id number] [place] [address] [place] WBC (Bld) [#/Vol] 8.19 10*3/uL Normal 3.70-11.00 [facility] Comment on above: Order Comment: Speci men Type: BLOOD SPECIMENOrdering Facility: [facility] Address: [address] [place] [address] Performed By: #### 5 7021-8 ####[facility] LABCLIA [id number] [place], [place] [address]AVW[facility]URLOM[facility] LABCLIA [id number] [place] [address] [place] CNOVSPon 06-19-2023 CNOVSP Normal [facility] Comprehensive metabolic 2000 panelon 06-19-2023 Albumin [Mass/Vol] 3.5 g/dL Low 3.9-4.9 [facility] Comment on above: Order Comment: Speci men Type: BLOOD SPECIMENOrdering Facility: [facility] Address: [address] [place] [address] Performed By: #### 2 4323-8 ####[facility] LABCLIA [id number] [place] [address] ALP [Catalytic activity/Vol] 78 U/L Normal 38-113 [facility] Comment on above: Order Comment: Speci men Type: BLOOD SPECIMENOrdering Facility: [facility] Address: [address] [place] [address] Performed By: #### 2 4323-8 ####[facility] LABCLIA [id number] [place] [address] ALT [Catalytic activity/Vol] 17 U/L Normal 10-54 [facility] Comment on above: Order Comment: Speci men Type: BLOOD SPECIMENOrdering Facility: [facility] Address: [address] [place] [address] Performed By: #### 2 4323-8 ####[facility] LABCLIA [id number] [place] [address] Anion gap [Moles/Vol] 8 mmol/L Low 9-18 [facility] Comment on above: Order Comment: Speci men Type: BLOOD SPECIMENOrdering Facility: [facility] Address: [address] [place] [address] Performed By: #### 2 4323-8 ####[facility] LABCLIA [id number] [place] [address] AST [Catalytic activity/Vol] 17 U/L Normal 14-40 [facility] Comment on above: Order Comment: Speci men Type: BLOOD SPECIMENOrdering Facility: [facility] Address: [address] [place] [address] Performed By: #### 2 4323-8 ####[facility] LABCLIA [id number] [place] [address] Bilirubin [Mass/Vol] 0.5 mg/dL Normal 0.2-1.3 [facility] Comment on above: Order Comment: Speci men Type: BLOOD SPECIMENOrdering Facility: [facility] Address: [address] [place] [address] Performed By: #### 2 4323-8 ####[facility] LABCLIA [id number] [place] [address] Calcium [Mass/Vol] 9.8 mg/dL Normal 8.5-10.2 [facility] Comment on above: Order Comment: Speci men Type: BLOOD SPECIMENOrdering Facility: [facility] Address: [address] [place] [address] Performed By: #### 2 4323-8 ####[facility] LABCLIA [id number] [place] [address] Chloride [Moles/Vol] 102 mmol/L Normal 97-105 [facility] Comment on above: Order Comment: Speci men Type: BLOOD SPECIMENOrdering Facility: [facility] Address: [address] [place] [address] Performed By: #### 2 4323-8 ####[facility] LABCLIA [id number] [place] [address] CO2 [Moles/Vol] 28 mmol/L Normal 22-30 [facility] Comment on above: Order Comment: Speci men Type: BLOOD SPECIMENOrdering Facility: [facility] Address: [address] [place] [address] Performed By: #### 2 4323-8 ####[facility] LABCLIA [id number] [place] [address] Creatinine [Mass/Vol] 1.20 mg/dL Normal 0.73-1.22 [facility] Comment on above: Order Comment: Speci men Type: BLOOD SPECIMENOrdering Facility: [facility] Address: [address] [place] [address] Performed By: #### 2 4323-8 ####[facility] LABCLIA [id number] [place] [address] Creatinine and Glomerular filtration rate.predicted panel (S/P/Bld) 61 mL/min/1.73m??? Normal >=60 [facility] Comment on above: Order Comment: Speci men Type: BLOOD SPECIMENOrdering Facility: [facility] Address: [address] [place] [address] Result Comment: Janae mated Glomerular Filtration Rate (eGFR) is calculated using the 2020 CKD-EPI creatinine equation. This equation utilizes serum creatinine, sex, and age as parameters. The creatinine assay has traceable calibration to isotope dilution-mass spectrometry. Refer to KDIGO guidelines for clinical interpretation. In patients with unstable renal function, e.g. those with acute kidney injury, the eGFR may not accurately reflect actual GFR. Performed By: #### 2 4323-8 ####[facility] LABCLIA [id number] [place] [address] Glucose [Mass/Vol] 94 mg/dL Normal 74-99 [facility] Comment on above: Order Comment: Speci men Type: BLOOD SPECIMENOrdering Facility: [facility] Address: [address] [place], [place] [address] Result Comment: The [place] Diabetes [employer] (ADA) provides guidance for cutoff values for fasting glucose and random glucose. The ADA defines fasting as no caloric intake for at least 8 hours. Fasting plasma glucose results between 100 to 125 mg/dL indicate increased risk for diabetes (prediabetes).Fasting plasma glucose results greater than or equal to 126 mg/dL meet the criteria for diagnosis of diabetes. In the absence of unequivocal hyperglycemia, results should be confirmed by repeat testing. In a patient with classic symptoms of hyperglycemia or hyperglycemic crisis, random plasma glucose results greater than or equal to 200 mg/dL meet the criteria for diagnosis of diabetes.Reference: Standards of Medical Care in Diabetes 2016, [place] [employer]. Diabetes Care. 2016.39(Suppl 1). Performed By: #### 2 4323-8 ####[facility] LABCLIA [id number] [place] [address] Potassium [Moles/Vol] 4.8 mmol/L Normal 3.7-5.1 [facility] Comment on above: Order Comment: Speci men Type: BLOOD SPECIMENOrdering Facility: [facility] Address: [address] [place] [address] Performed By: #### 2 4323-8 ####[facility] LABCLIA [id number] [place] [address] Protein [Mass/Vol] 6.5 g/dL Normal 6.3-8.0 [facility] Comment on above: Order Comment: Speci men Type: BLOOD SPECIMENOrdering Facility: [facility] Address: [address] [place], [place] [address] Performed By: #### 2 4323-8 ####[facility] LABCLIA [id number] [place] [address] Sodium [Moles/Vol] 138 mmol/L Normal 136-144 [facility] Comment on above: Order Comment: Speci men Type: BLOOD SPECIMENOrdering Facility: [facility] Address: [address] [place] [address] Performed By: #### 2 4323-8 ####[facility] LABCLIA [id number] [place] [address] Urea nitrogen [Mass/Vol] 24 mg/dL Normal 9-24 [facility] Comment on above: Order Comment: Speci men Type: BLOOD SPECIMENOrdering Facility: [facility] Address: [address] [place] [address] Performed By: #### 2 4323-8 ####[facility] LABCLIA [id number] [place] [id number] CBC W Auto Differential pane l (Bld)on 06-12-2023 Basophils (Bld) [#/Vol] 0.00 10*3/uL Normal <0.11 [facility] Comment on above: Order Comment: Speci men Type: BLOOD SPECIMENOrdering Facility: [facility] Address: [address] [place] [address] Performed By: #### 5 7021-8 ####[facility] LABCLIA [id number] [place] [address] LABCLIA [id number] [facility] AVENUEKAISER PERMANENT[place] [address] [place] Basophils/100 WBC (Bld) 0.0 % Normal [facility] Comment on above: Order Comment: Speci men Type: BLOOD SPECIMENOrdering Facility: [facility] Address: [address] [place] [address] Performed By: #### 5 7021-8 ####[facility] LABCLIA [id number] [place] [address] LABCLIA [id number] [facility] AVENUEKAISER PERMANENTE MEDICAL CENTERK [place] [id number] [place] Differential cell count method Nom (Bld) Manual Normal [facility] Comment on above: Order Comment: Speci men Type: BLOOD SPECIMENOrdering Facility: [facility] Address: [address] [place] [address] Performed By: #### 5 7021-8 ####[facility] LABCLIA [id number] [address] LABCLIA [id number] [place] [address] [place] Eosinophils (Bld) [#/Vol] 0.36 10*3/uL Normal <0.46 [facility] Comment on above: Order Comment: Speci men Type: BLOOD SPECIMENOrdering Facility: [facility] Address: [address] [place] [address] Performed By: #### 5 7021-8 ####[facility] LABCLIA [id number] [address] LABCLIA [id number] [place] [address] [place] Eosinophils/100 WBC (Bld) 2.7 % Normal [facility] Comment on above: Order Comment: Speci men Type: BLOOD SPECIMENOrdering Facility: [facility] Address: [address] [place] [address] Performed By: #### 5 7021-8 ####[facility] LABCLIA [id number] [address] LABCLIA [id number] [place] [address] [place] Erythrocyte distribution width (RBC) [Ratio] 13.9 % Normal 11.5-15.0 [facility] Comment on above: Order Comment: Speci men Type: BLOOD SPECIMENOrdering Facility: [facility] Address: [address] [place] [address] Performed By: #### 5 7021-8 ####[facility] LABCLIA [id number] [address] [facility] LABCLIA [id number] [place] [address] [place] Hematocrit (Bld) [Volume fraction] 42.1 % Normal 39.0-51.0 [facility] Comment on above: Order Comment: Speci men Type: BLOOD SPECIMENOrdering Facility: [facility] Address: [address] [place] [address] Performed By: #### 5 7021-8 ####[facility] LABCLIA [id number] [address] LABCLIA [id number] [place] [address] [place] Hemoglobin (Bld) [Mass/Vol] 14.3 g/dL Normal 13.0-17.0 [facility] Comment on above: Order Comment: Speci men Type: BLOOD SPECIMENOrdering Facility: [facility] Address: [address] [place] [address] Performed By: #### 5 7021-8 ####[facility] LABCLIA [id number] [address] LABCLIA [id number] [place] [address] [place] Lymphocytes (Bld) [#/Vol] 1.40 10*3/uL Normal 1.00-4.00 [facility] Comment on above: Order Comment: Speci men Type: BLOOD SPECIMENOrdering Facility: [facility] Address: [address] [place] [address] Performed By: #### 5 7021-8 ####[facility] LABCLIA [id number] [address] LABCLIA [id number] [place] [address] [place] Lymphocytes/100 WBC (Bld) 10.6 % Normal [facility] Comment on above: Order Comment: Speci men Type: BLOOD SPECIMENOrdering Facility: [facility] Address: [address] [place] [address] Performed By: #### 5 7021-8 ####[facility] LABCLIA [id number] [place] [address] LABCLIA [id number] [place] [address] [place] MCH (RBC) [Entitic mass] 35.5 pg High 26.0-34.0 [facility] Comment on above: Order Comment: Speci men Type: BLOOD SPECIMENOrdering Facility: [facility] Address: [address] [place] [address] Performed By: #### 5 7021-8 ####[facility] LABCLIA [id number] [address] LABCLIA [id number] [place] [address] [place] MCHC (RBC) [Mass/Vol] 34.0 g/dL Normal 30.5-36.0 [facility] Comment on above: Order Comment: Speci men Type: BLOOD SPECIMENOrdering Facility: [facility] Address: [address] [place] [address] Performed By: #### 5 7021-8 ####[facility] LABCLIA [id number] [place] [address] LABCLIA [id number] [place] [address] [place] MCV (RBC) [Entitic vol] 104.5 fL High 80.0-100.0 [facility] Comment on above: Order Comment: Speci men Type: BLOOD SPECIMENOrdering Facility: [facility] Address: [address] [place] [address] Performed By: #### 5 7021-8 ####[facility] LABCLIA [id number] [address] LABCLIA [id number] [place] [address] [place] Monocytes (Bld) [#/Vol] 1.28 10*3/uL High <0.87 [facility] Comment on above: Order Comment: Speci men Type: BLOOD SPECIMENOrdering Facility: [facility] Address: [address] [place] [address] Performed By: #### 5 7021-8 ####[facility] LABCLIA [id number] [address] LABCLIA [id number] [place] [address] [place] Monocytes/100 WBC (Bld) 9.7 % Normal [facility] Comment on above: Order Comment: Speci men Type: BLOOD SPECIMENOrdering Facility: [facility] Address: [address] [place] [address] Performed By: #### 5 7021-8 ####[facility] LABCLIA [id number] [place] [address] LABCLIA [id number] [place] [address] [place] Neutrophils (Bld) [#/Vol] 10.19 10*3/uL High 1.45-7.50 [facility] Comment on above: Order Comment: Speci men Type: BLOOD SPECIMENOrdering Facility: [facility] Address: [address] [place] [address] Performed By: #### 5 7021-8 ####[facility] LABCLIA [id number] [place] [address] LABCLIA [id number] [place] [address] [place] Neutrophils/100 WBC (Bld) 77.0 % Normal [facility] Comment on above: Order Comment: Speci men Type: BLOOD SPECIMENOrdering Facility: [facility] Address: [address] [place], [place] [address] Performed By: #### 5 7021-8 ####[facility] LABCLIA [id number] [address] LABCLIA [id number] [place] [address] [place] Nucleated RBC (Bld) [#/Vol] 10*3/uL Normal <0.01 [facility] Comment on above: Order Comment: Speci men Type: BLOOD SPECIMENOrdering Facility: [facility] Address: [address] [place] [address] Performed By: #### 5 7021-8 ####[facility] LABCLIA [id number] [address] LABCLIA [id number] [place] [address] [place] Nucleated RBC/100 WBC (Bld) [Ratio] 0.0 /100 WBC Normal [facility] Comment on above: Order Comment: Speci men Type: BLOOD SPECIMENOrdering Facility: [facility] Address: [address] [place] [address] Performed By: #### 5 7021-8 ####[facility] LABCLIA [id number] [address] LABCLIA [id number] [place] [address] [place] Ovalocytes LM Ql (Bld) Few Normal [facility] Comment on above: Order Comment: Speci men Type: BLOOD SPECIMENOrdering Facility: [facility] Address: [address] [place] [address] Performed By: #### 5 7021-8 ####[facility] LABCLIA [id number] [address] LABCLIA [id number] [place] [address] [place] Platelet mean volume (Bld) [Entitic vol] 10.5 fL Normal 9.0-12.7 [facility] Comment on above: Order Comment: Speci men Type: BLOOD SPECIMENOrdering Facility: [facility] Address: [address] [place] [address] Performed By: #### 5 7021-8 ####[facility] LABCLIA [id number] [address] LABCLIA [id number] [place] [address] [place] Platelets (Bld) [#/Vol] 178 10*3/uL Normal 150-400 [facility] Comment on above: Order Comment: Speci men Type: BLOOD SPECIMENOrdering Facility: [facility] Address: [address] [place] [address] Performed By: #### 5 7021-8 ####[facility] LABCLIA [id number] [address] LABCLIA [id number] [place] [address] [place] Platelets Estimate (Bld) [#/Vol] Adequate Normal [facility] Comment on above: Order Comment: Speci men Type: BLOOD SPECIMENOrdering Facility: [facility] Address: [address] [place] [address] Performed By: #### 5 7021-8 ####[facility] LABCLIA [id number] [address] LABCLIA [id number] [place] [address] [place] Polychromasia LM Ql (Bld) Slight Normal [facility] Comment on above: Order Comment: Speci men Type: BLOOD SPECIMENOrdering Facility: [facility] Address: [address] [place] [address] Performed By: #### 5 7021-8 ####[facility] LABCLIA [id number] [place] [id number] LABCLIA [id number] [place] [address] [place] RBC (Bld) [#/Vol] 4.03 10*6/uL Low 4.20-6.00 [facility] Comment on above: Order Comment: Speci men Type: BLOOD SPECIMENOrdering Facility: [facility] Address: [address] [place] [address] Performed By: #### 5 7021-8 ####[facility] LABCLIA [id number] [address] LABCLIA [id number] [place] [address] [place] RED CELL MORPH Reviewed: see result s of individual morphologies Normal [facility] Comment on above: Order Comment: Speci men Type: BLOOD SPECIMENOrdering Facility: [facility] Address: [address] [place] [address] Performed By: #### 5 7021-8 ####[facility] LABCLIA [id number] [address] LABCLIA [id number] [place] [address] [place] [place] WBC (Bld) [#/Vol] 13.23 10*3/uL High 3.70-11.00 [facility] Comment on above: Order Comment: Speci men Type: BLOOD SPECIMENOrdering Facility: [facility] Address: [address] [place] [address] Performed By: #### 5 7021-8 ####[facility] LABCLIA [id number] [address] LABCLIA [id number] [place] [address] [place] WBC Left Shift Ql (Bld) Present Normal [facility] Comment on above: Order Comment: Speci men Type: BLOOD SPECIMENOrdering Facility: [facility] Address: [address] [place] [address] Performed By: #### 5 7021-8 ####[facility] LABCLIA [id number] [place], [place] [address] LABCLIA [id number] [facility] [place] [address] [place] CNOVSPon 06-12-2023 CNOVSP Normal [facility] CNPNon 06-12-2023 CNPN Normal [facility] Comprehensive metabolic 2000 panelon 06-12-2023 Albumin [Mass/Vol] 3.6 g/dL Low 3.9-4.9 [facility] Comment on above: Order Comment: Speci men Type: BLOOD SPECIMENOrdering Facility: [facility] Address: [address] [place] [address] Performed By: #### 2 4323-8 ####[facility] LABCLIA [id number] [place] [address] ALP [Catalytic activity/Vol] 84 U/L Normal 38-113 [facility] Comment on above: Order Comment: Speci men Type: BLOOD SPECIMENOrdering Facility: [facility] Address: [address] [place] [address] Performed By: #### 2 4323-8 ####[facility] LABCLIA [id number] [place] [address] ALT [Catalytic activity/Vol] 18 U/L Normal 10-54 [facility] Comment on above: Order Comment: Speci men Type: BLOOD SPECIMENOrdering Facility: [facility] Address: [address] [place] [address] Performed By: #### 2 4323-8 ####[facility] LABCLIA [id number] [place] [address] Anion gap [Moles/Vol] 9 mmol/L Normal 9-18 [facility] Comment on above: Order Comment: Speci men Type: BLOOD SPECIMENOrdering Facility: [facility] Address: [address] [place] [address] Performed By: #### 2 4323-8 ####[facility] LABCLIA [id number] [place] [address] AST [Catalytic activity/Vol] 19 U/L Normal 14-40 [facility] Comment on above: Order Comment: Speci men Type: BLOOD SPECIMENOrdering Facility: [facility] Address: [address] [place] [address] Performed By: #### 2 4323-8 ####[facility] LABCLIA [id number] [place] [address] Bilirubin [Mass/Vol] 0.3 mg/dL Normal 0.2-1.3 [facility] Comment on above: Order Comment: Speci men Type: BLOOD SPECIMENOrdering Facility: [facility] Address: [address] [place] [address] Performed By: #### 2 4323-8 ####[facility] LABCLIA [id number] [place] [address] Calcium [Mass/Vol] 9.1 mg/dL Normal 8.5-10.2 [facility] Comment on above: Order Comment: Speci men Type: BLOOD SPECIMENOrdering Facility: [facility] Address: [address] [place] [address] Performed By: #### 2 4323-8 ####[facility] LABCLIA [id number] [place] [address] Chloride [Moles/Vol] 99 mmol/L Normal 97-105 [facility] Comment on above: Order Comment: Speci men Type: BLOOD SPECIMENOrdering Facility: [facility] Address: [address] [place] [address] Performed By: #### 2 4323-8 ####[facility] LABCLIA [id number] [place] [address] CO2 [Moles/Vol] 27 mmol/L Normal 22-30 [facility] Comment on above: Order Comment: Speci men Type: BLOOD SPECIMENOrdering Facility: [facility] Address: [address] [place] [address] Performed By: #### 2 4323-8 ####[facility] LABCLIA [id number] [place] [address] Creatinine [Mass/Vol] 1.15 mg/dL Normal 0.73-1.22 [facility] Comment on above: Order Comment: Speci men Type: BLOOD SPECIMENOrdering Facility: [facility] Address: [address] [place] [address] Performed By: #### 2 4323-8 ####[facility] LABCLIA [id number] [place] [address] Creatinine and Glomerular filtration rate.predicted panel (S/P/Bld) 64 mL/min/1.73m??? Normal >=60 [facility] Comment on above: Order Comment: Speci men Type: BLOOD SPECIMENOrdering Facility: [facility] Address: [address] [place] [address] Result Comment: Janae mated Glomerular Filtration Rate (eGFR) is calculated using the 2020 CKD-EPI creatinine equation. This equation utilizes serum creatinine, sex, and age as parameters. The creatinine assay has traceable calibration to isotope dilution-mass spectrometry. Refer to KDIGO guidelines for clinical interpretation. In patients with unstable renal function, e.g. those with acute kidney injury, the eGFR may not accurately reflect actual GFR. Performed By: #### 2 4323-8 ####[facility] LABCLIA [id number] [place] [address] Glucose [Mass/Vol] 94 mg/dL Normal 74-99 [facility] Comment on above: Order Comment: Speci men Type: BLOOD SPECIMENOrdering Facility: [facility] Address: [address] [place] [address] Result Comment: The [place] Diabetes Association (ADA) provides guidance for cutoff values for fasting glucose and random glucose. The ADA defines fasting as no caloric intake for at least 8 hours. Fasting plasma glucose results between 100 to 125 mg/dL indicate increased risk for diabetes (prediabetes).Fasting plasma glucose results greater than or equal to 126 mg/dL meet the criteria for diagnosis of diabetes. In the absence of unequivocal hyperglycemia, results should be confirmed by repeat testing. In a patient with classic symptoms of hyperglycemia or hyperglycemic crisis, random plasma glucose results greater than or equal to 200 mg/dL meet the criteria for diagnosis of diabetes.Reference: Standards of Medical Care in Diabetes 2016, [place] [employer]. Diabetes Care. 2016.39(Suppl 1). Performed By: #### 2 4323-8 ####[facility] LABCLIA [id number] [place] [address] Potassium [Moles/Vol] 4.4 mmol/L Normal 3.7-5.1 [facility] Comment on above: Order Comment: Speci men Type: BLOOD SPECIMENOrdering Facility: [facility] Address: [address] [place] [address] Performed By: #### 2 4323-8 ####[facility] LABCLIA [id number] [place] [address] Protein [Mass/Vol] 6.8 g/dL Normal 6.3-8.0 [facility] Comment on above: Order Comment: Yulyi roger Type: BLOOD SPECIMENOrdering Facility: [facility] Address: [address] [place] [address] Performed By: #### 2 4323-8 ####[facility] LABCLIA [id number] [place] [address] Sodium [Moles/Vol] 135 mmol/L Low 136-144 [facility] Comment on above: Order Comment: Speci men Type: BLOOD SPECIMENOrdering Facility: [facility] Address: [address] [place] [address] Performed By: #### 2 4323-8 ####[facility] LABCLIA [id number] [place] [address] Urea nitrogen [Mass/Vol] 29 mg/dL High 9-24 [facility] Comment on above: Order Comment: Speci men Type: BLOOD SPECIMENOrdering Facility: [facility] Address: [address] [place] [address] Performed By: #### 2 4323-8 ####[facility] LABCLIA [id number] [place] [address] CNPNon 06-11-2023 CNPN Normal [facility] CNOVon 06-10-2023 CNOV Normal [facility] CNPNon 06-10-2023 CNPN Normal [facility] CNOVon 06-07-2023 CNOV Normal [facility] CNCNPATEDon 06-05-2023 CNCNPATED Normal [facility] CNOVon 06-05-2023 CNOV Normal [facility] CNOVSPon 06-05-2023 CNOVSP Normal [facility] CNPNon 06-05-2023 CNPN Normal [facility] CNPNon 06-04-2023 CNPN Normal [facility] CNPNon 06-03-2023 CNPN Normal [facility] CNPNon 05-30-2023 CNPN Normal [facility] CNPNon 05-21-2023 CNPN Normal [facility] CNPNon 05-17-2023 CNPN Normal [facility] CNPNon 05-15-2023 CNPN Normal [facility] CBC W Auto Differential pane l (Bld)on 05-14-2023 Basophils (Bld) [#/Vol] 0.06 10*3/uL Normal <0.11 [facility] Comment on above: Order Comment: Speci men Type: BLOOD SPECIMENOrdering Facility: [facility] Address: [address] [place] [address] Performed By: #### 5 7021-8 ####[facility] LABCLIA [id number] [place] [address] Basophils/100 WBC (Bld) 0.6 % Normal [facility] Comment on above: Order Comment: Speci men Type: BLOOD SPECIMENOrdering Facility: [facility] Address: [address] [place] [address] Performed By: #### 5 7021-8 ####[facility] LABCLIA [id number] [place] [address] Differential cell count method Nom (Bld) Auto Normal [facility] Comment on above: Order Comment: Speci men Type: BLOOD SPECIMENOrdering Facility: [facility] Address: [address] [place] [address] Performed By: #### 5 7021-8 ####[facility] LABCLIA [id number] [place] [address] Eosinophils (Bld) [#/Vol] 0.27 10*3/uL Normal <0.46 [facility] Comment on above: Order Comment: Speci men Type: BLOOD SPECIMENOrdering Facility: [facility] Address: [address] [place] [address] Performed By: #### 5 7021-8 ####[facility] LABCLIA [id number] [place] [address] Eosinophils/100 WBC (Bld) 2.8 % Normal [facility] Comment on above: Order Comment: Speci men Type: BLOOD SPECIMENOrdering Facility: [facility] Address: [address] [place] [address] Performed By: #### 5 7021-8 ####[facility] LABCLIA [id number] [place] [address] Erythrocyte distribution width (RBC) [Ratio] 13.6 % Normal 11.5-15.0 [facility] Comment on above: Order Comment: Speci men Type: BLOOD SPECIMENOrdering Facility: [facility] Address: [address] [place] [address] Performed By: #### 5 7021-8 ####[facility] LABCLIA [id number] [place] [address] Hematocrit (Bld) [Volume fraction] 41.7 % Normal 39.0-51.0 [facility] Comment on above: Order Comment: Speci men Type: BLOOD SPECIMENOrdering Facility: [facility] Address: [facility] [place] [address] Performed By: #### 5 7021-8 ####[facility] LABCLIA [id number] [place] [address] Hemoglobin (Bld) [Mass/Vol] 14.0 g/dL Normal 13.0-17.0 [facility] Comment on above: Order Comment: Speci men Type: BLOOD SPECIMENOrdering Facility: [facility] Address: [address] [place] [address] Performed By: #### 5 7021-8 ####[facility] LABCLIA [id number] [place] [address] Immature granulocytes (Bld) [#/Vol] 0.04 10*3/uL Normal <0.10 [facility] Comment on above: Order Comment: Speci men Type: BLOOD SPECIMENOrdering Facility: [facility] Address: [address] [place] [address] Performed By: #### 5 7021-8 ####[facility] LABCLIA [id number] [place] [address] Immature granulocytes/100 WBC (Bld) 0.4 % Normal [facility] Comment on above: Order Comment: Speci men Type: BLOOD SPECIMENOrdering Facility: [facility] Address: [address] [place] [address] Performed By: #### 5 7021-8 ####[facility] LABCLIA [id number] [place] [address] Lymphocytes (Bld) [#/Vol] 1.17 10*3/uL Normal 1.00-4.00 [facility] Comment on above: Order Comment: Speci men Type: BLOOD SPECIMENOrdering Facility: [facility] Address: [address] [place] [address] Performed By: #### 5 7021-8 ####[facility] LABCLIA [id number] [place] [address] Lymphocytes/100 WBC (Bld) 12.1 % Normal [facility] Comment on above: Order Comment: Speci men Type: BLOOD SPECIMENOrdering Facility: [facility] Address: [address] [place] [address] Performed By: #### 5 7021-8 ####[facility] LABCLIA [id number] [place] [address] MCH (RBC) [Entitic mass] 35.7 pg High 26.0-34.0 [facility] Comment on above: Order Comment: Speci men Type: BLOOD SPECIMENOrdering Facility: [facility] Address: [address] [place] [address] Performed By: #### 5 7021-8 ####[facility] LABIA [id number] [place] [address] MCHC (RBC) [Mass/Vol] 33.6 g/dL Normal 30.5-36.0 [facility] Comment on above: Order Comment: Speci men Type: BLOOD SPECIMENOrdering Facility: [facility] Address: [address] [place] [address] Performed By: #### 5 7021-8 ####[facility] LABIA [id number] [place] [address] MCV (RBC) [Entitic vol] 106.4 fL High 80.0-100.0 [facility] Comment on above: Order Comment: Speci men Type: BLOOD SPECIMENOrdering Facility: [facility] Address: [address] [place] [address] Performed By: #### 5 7021-8 ####[facility] LABIA [id number] [place] [address] Monocytes (Bld) [#/Vol] 1.22 10*3/uL High <0.87 [facility] Comment on above: Order Comment: Speci men Type: BLOOD SPECIMENOrdering Facility: [facility] Address: [address] [place] [address] Performed By: #### 5 7021-8 ####[facility] LABCLIA [id number] [place] [address] Monocytes/100 WBC (Bld) 12.6 % Normal [facility] Comment on above: Order Comment: Speci men Type: BLOOD SPECIMENOrdering Facility: [facility] Address: [address] [place] [address] Performed By: #### 5 7021-8 ####[facility] LABCLIA [id number] [place] [address] Neutrophils (Bld) [#/Vol] 6.90 10*3/uL Normal 1.45-7.50 [facility] Comment on above: Order Comment: Speci men Type: BLOOD SPECIMENOrdering Facility: [facility] Address: [address] [place] [address] Performed By: #### 5 7021-8 ####[facility] LABCLIA [id number] [place] [address] Neutrophils/100 WBC (Bld) 71.5 % Normal [facility] Comment on above: Order Comment: Speci men Type: BLOOD SPECIMENOrdering Facility: [facility] Address: [address] [place] [address] Performed By: #### 5 7021-8 ####[facility] LABCLIA [id number] [place] [address] Nucleated RBC (Bld) [#/Vol] 10*3/uL Normal <0.01 [facility] Comment on above: Order Comment: Speci men Type: BLOOD SPECIMENOrdering Facility: [facility] Address: [address] [place] [address] Performed By: #### 5 7021-8 ####[facility] LABCLIA [id number] [place] [address] Nucleated RBC/100 WBC (Bld) [Ratio] 0.0 /100 WBC Normal [facility] Comment on above: Order Comment: Speci men Type: BLOOD SPECIMENOrdering Facility: [facility] Address: [address] [place] [address] Performed By: #### 5 7021-8 ####[facility] LABCLIA [id number] [place] [address] Platelet mean volume (Bld) [Entitic vol] 9.9 fL Normal 9.0-12.7 [facility] Comment on above: Order Comment: Speci men Type: BLOOD SPECIMENOrdering Facility: [facility] Address: [address] [place] [address] Performed By: #### 5 7021-8 ####[facility] LABCLIA [id number] [place] [address] Platelets (Bld) [#/Vol] 228 10*3/uL Normal 150-400 [facility] Comment on above: Order Comment: Speci men Type: BLOOD SPECIMENOrdering Facility: [facility] Address: [address] [place] [address] Performed By: #### 5 7021-8 ####[facility] LABCLIA [id number] [place] [address] RBC (Bld) [#/Vol] 3.92 10*6/uL Low 4.20-6.00 [facility] Comment on above: Order Comment: Speci men Type: BLOOD SPECIMENOrdering Facility: [facility] Address: [address] [place] [address] Performed By: #### 5 7021-8 ####[facility] LABCLIA [id number] [place] [address] WBC (Bld) [#/Vol] 9.66 10*3/uL Normal 3.70-11.00 [facility] Comment on above: Order Comment: Speci men Type: BLOOD SPECIMENOrdering Facility: [facility] Address: [address] [place] [address] Performed By: #### 5 7021-8 ####[facility] LABCLIA [id number] [place] [address] CNNURSEon 05-14-2023 CNNURSE Normal [facility] CNOVSPon 05-14-2023 CNOVSP Normal [facility] CNPNon 05-14-2023 CNPN Normal [facility] Comprehensive metabolic 2000 panelon 05-14-2023 Albumin [Mass/Vol] 4.0 g/dL Normal 3.9-4.9 [facility] Comment on above: Order Comment: Speci men Type: BLOOD SPECIMENOrdering Facility: [facility] Address: [address] [place] [address] Performed By: #### 2 4323-8 ####[facility] LABCLIA [id number] [place] [address] ALP [Catalytic activity/Vol] 74 U/L Normal 38-113 [facility] Comment on above: Order Comment: Speci men Type: BLOOD SPECIMENOrdering Facility: [facility] Address: [address] [place] [address] Performed By: #### 2 4323-8 ####[facility] LABCLIA [id number] [place] [address] ALT [Catalytic activity/Vol] 10 U/L Normal 10-54 [facility] Comment on above: Order Comment: Speci men Type: BLOOD SPECIMENOrdering Facility: [facility] Address: [address] [place] [address] Performed By: #### 2 4323-8 ####[facility] LABCLIA [id number] [place] [address] Anion gap [Moles/Vol] 9 mmol/L Normal 9-18 [facility] Comment on above: Order Comment: Speci men Type: BLOOD SPECIMENOrdering Facility: [facility] Address: [address] [place] [address] Performed By: #### 2 4323-8 ####[facility] LABCLIA [id number] [place] [address] AST [Catalytic activity/Vol] 18 U/L Normal 14-40 [facility] Comment on above: Order Comment: Speci men Type: BLOOD SPECIMENOrdering Facility: [facility] Address: [address] [place] [address] Performed By: #### 2 4323-8 ####[facility] LABCLIA [id number] [place] [address] Bilirubin [Mass/Vol] 0.2 mg/dL Normal 0.2-1.3 [facility] Comment on above: Order Comment: Speci men Type: BLOOD SPECIMENOrdering Facility: [facility] Address: [address] [place] [address] Performed By: #### 2 4323-8 ####[facility] LABCLIA [id number] [place] [address] Calcium [Mass/Vol] 9.2 mg/dL Normal 8.5-10.2 [facility] Comment on above: Order Comment: Speci men Type: BLOOD SPECIMENOrdering Facility: [facility] Address: [address] [place] [address] Performed By: #### 2 4323-8 ####[facility] LABCLIA [id number] [place] [address] Chloride [Moles/Vol] 104 mmol/L Normal 97-105 [facility] Comment on above: Order Comment: Speci men Type: BLOOD SPECIMENOrdering Facility: [facility] Address: [address] [place] [address] Performed By: #### 2 4323-8 ####[facility] LABCLIA [id number] [place] [address] CO2 [Moles/Vol] 26 mmol/L Normal 22-30 [facility] Comment on above: Order Comment: Speci men Type: BLOOD SPECIMENOrdering Facility: [facility] Address: [address] [place] [address] Performed By: #### 2 4323-8 ####[facility] LABCLIA [id number] [place] [address] Creatinine [Mass/Vol] 1.43 mg/dL High 0.73-1.22 [facility] Comment on above: Order Comment: Ever duran Type: BLOOD SPECIMENOrdering Facility: [facility] Address: [address] [place] [address] Performed By: #### 2 4323-8 ####[facility] LABCLIA [id number] [place] [address] Creatinine and Glomerular filtration rate.predicted panel (S/P/Bld) 49 mL/min/1.73m??? Low >=60 [facility] Comment on above: Order Comment: Ever duran Type: BLOOD SPECIMENOrdering Facility: [facility] Address: [address] [place] [address] Result Comment: Janae mated Glomerular Filtration Rate (eGFR) is calculated using the 2020 CKD-EPI creatinine equation. This equation utilizes serum creatinine, sex, and age as parameters. The creatinine assay has traceable calibration to isotope dilution-mass spectrometry. Refer to KDIGO guidelines for clinical interpretation. In patients with unstable renal function, e.g. those with acute kidney injury, the eGFR may not accurately reflect actual GFR. Performed By: #### 2 4323-8 ####[facility] LABIA [id number] [place] [address] Glucose [Mass/Vol] 121 mg/dL High 74-99 [facility] Comment on above: Order Comment: Ever duran Type: BLOOD SPECIMENOrdering Facility: [facility] Address: [address] [place] [address] Result Comment: The [place] Diabetes [employer] (ADA) provides guidance for cutoff values for fasting glucose and random glucose. The ADA defines fasting as no caloric intake for at least 8 hours. Fasting plasma glucose results between 100 to 125 mg/dL indicate increased risk for diabetes (prediabetes).Fasting plasma glucose results greater than or equal to 126 mg/dL meet the criteria for diagnosis of diabetes. In the absence of unequivocal hyperglycemia, results should be confirmed by repeat testing. In a patient with classic symptoms of hyperglycemia or hyperglycemic crisis, random plasma glucose results greater than or equal to 200 mg/dL meet the criteria for diagnosis of diabetes.Reference: Standards of Medical Care in Diabetes 2016, [place] [employer]. Diabetes Care. 2016.39(Suppl 1). Performed By: #### 2 4323-8 ####[facility] LABCLIA [id number] [place] [address] Potassium [Moles/Vol] 4.7 mmol/L Normal 3.7-5.1 [facility] Comment on above: Order Comment: Speci men Type: BLOOD SPECIMENOrdering Facility: [facility] Address: [address] [place] [address] Performed By: #### 2 4323-8 ####[facility] LABCLIA [id number] [place] [address] Protein [Mass/Vol] 7.0 g/dL Normal 6.3-8.0 [facility] Comment on above: Order Comment: Speci men Type: BLOOD SPECIMENOrdering Facility: [facility] Address: [address] [place] [address] Performed By: #### 2 4323-8 ####[facility] LABCLIA [id number] [place] [address] Sodium [Moles/Vol] 139 mmol/L Normal 136-144 [facility] Comment on above: Order Comment: Speci men Type: BLOOD SPECIMENOrdering Facility: [facility] Address: [address] [place] [address] Performed By: #### 2 4323-8 ####[facility] LABCLIA [id number] [place] [address] Urea nitrogen [Mass/Vol] 25 mg/dL High 9-24 [facility] Comment on above: Order Comment: Speci men Type: BLOOD SPECIMENOrdering Facility: [facility] Address: [address] [place] [address] Performed By: #### 2 4323-8 ####[facility] LABCLIA [id number] [place] [address] IMMUNOFIXATION SCREEN, SERUM on 05-14-2023 INTERPRETATION (MPA) Atypical restricted bands are present in the IgG and lambda regions. Consistent with IgG lambda monoclonal gammopathy. Normal [facility] Comment on above: Order Comment: Speci men Type: BLOOD SPECIMENOrdering Facility: [facility] Address: [address] [place] [address] Performed By: #### I FESC ####[facility] LABCLIA [id number] [place] [address] [place] MPA RESULT M protein is present. Abnormal No M protein is identified. [facility] Comment on above: Order Comment: Speci men Type: BLOOD SPECIMENOrdering Facility: [facility] Address: [address] [place] [address] Performed By: #### I FES ####[facility] LABCLIA [id number] OF [place] STAFF REVIEW (MPA) Reviewed by Dr. Britton Ceballos MD Normal [facility] Comment on above: Order Comment: Speci men Type: BLOOD SPECIMENOrdering Facility: [facility] Address: [address] [place] [address] Performed By: #### I FESC ####[facility] LABCLIA [id number] [place] [address] [place] IMMUNOGLOBULINS GAMon 2022 IgA [Mass/Vol] 111 mg/dL Normal 70-400 [facility] Comment on above: Order Comment: Speci men Type: BLOOD SPECIMENOrdering Facility: [facility] Address: [address] [place] [address] Performed By: #### S ERIMM ####[facility] LABCLIA [id number] [place] [address] [place] IgG [Mass/Vol] 1411 mg/dL Normal 700-1600 [facility] Comment on above: Order Comment: Speci men Type: BLOOD SPECIMENOrdering Facility: [facility] Address: [address] [place] [address] Performed By: #### S ERIMM ####[facility] LABCLIA [id number] [place] [address] [place] IgM [Mass/Vol] 24 mg/dL Low 40-230 [facility] Comment on above: Order Comment: Speci men Type: BLOOD SPECIMENOrdering Facility: [facility] Address: [address] [place] [address] Performed By: #### S ERIMM ####[facility] LABCLIA [id number] [place] [address] [place] KAPPA/HERNANDEZ,FREE,SERon 2022 Immunoglobulin light chains.kappa.free (S) [Mass/Vol] 41.0 mg/L High 3.3-19.4 [facility] Comment on above: Order Comment: Speci men Type: BLOOD SPECIMENOrdering Facility: [facility] Address: [address] [place] [address] Result Comment: Rare ly, increased serum free light chains levels may not be detected or accurately quantified due to prozone phenomenon or in high viscosity samples using this immunoturbidimetric assay. Correlation with other laboratory results and clinical findings is recommended.The [place] Free Light Chain was performed using the Binding Site Optilite immunoturbidimetric method. Result obtained with different assay methods or kits cannot be used interchangeably. Performed By: #### K LFRS ####[facility] LABCLIA [id number] [place] [address] [place] Immunoglobulin light chains.kappa/Immunoglobu natanael light chains.lambda (S) [Mass ratio] 0.23 Low 0.26-1.65 [facility] Comment on above: Order Comment: Speci men Type: BLOOD SPECIMENOrdering Facility: [facility] Address: [address] [place] [address] Performed By: #### K LFRS ####[facility] LABCLIA [id number] [place] [address] [place] Immunoglobulin light chains.lambda.free [Mass/Vol] 176.2 mg/L High 5.7-26.3 [facility] Comment on above: Order Comment: Speci men Type: BLOOD SPECIMENOrdering Facility: [facility] Address: [address] [place] [address] Result Comment: Rare ly, increased serum free light chains levels may not be detected or accurately quantified due to prozone phenomenon or in high viscosity samples using this immunoturbidimetric assay. Correlation with other laboratory results and clinical findings is recommended.The Lambda Free Light Chain was performed using the Binding Site Optilite immunoturbidimetric method. Result obtained with different assay methods or kits cannot be used interchangeably. Performed By: #### K LFRS ####[facility] LABIA [id number] [place] [address] [place] PROTEIN ELECTROPHORESIS SERU M (P)on 05-14-2023 Albumin [Mass/Vol] 3.50 g/dL Normal 3.43-5.41 [facility] Comment on above: Order Comment: Speci men Type: BLOOD SPECIMENOrdering Facility: [facility] Address: [address] [place] [address] Performed By: #### L [id number] ####[facility] LABIA [id number] [place] [address] [place] Alpha 1 globulin Elph [Mass/Vol] 0.29 g/dL Normal 0.18-0.43 [facility] Comment on above: Order Comment: Speci men Type: BLOOD SPECIMENOrdering Facility: [facility] Address: [address] [place] [address] Performed By: #### L [id number] ####[facility] LABIA [id number] [place] [address] [place] Alpha 2 globulin Elph [Mass/Vol] 0.72 g/dL Normal 0.42-0.98 [facility] Comment on above: Order Comment: Speci men Type: BLOOD SPECIMENOrdering Facility: [facility] Address: [address] [place] [address] Performed By: #### L [id number] ####[facility] LABIA [id number] [place] [address] [place] Beta globulin Elph [Mass/Vol] 0.74 g/dL Normal 0.61-1.17 [facility] Comment on above: Order Comment: Speci men Type: BLOOD SPECIMENOrdering Facility: [facility] Address: [address] [place] [address] Performed By: #### L [id number] ####[facility] LABIA [id number] [place] [address] [place] Gamma globulin Elph [Mass/Vol] 1.25 g/dL Normal 0.53-1.51 [facility] Comment on above: Order Comment: Speci men Type: BLOOD SPECIMENOrdering Facility: [facility] Address: [address] [place] [address] Performed By: #### L [id number] ####[facility] LABIA [id number] [place] [address] [place] INTERPRETATION COMMENT FOR PROTEIN ELECTROPHORESIS See separate immunofixation report for characterization of monoclonal gammopathy. Normal [facility] Comment on above: Order Comment: Speci men Type: BLOOD SPECIMENOrdering Facility: [facility] Address: [address] [place] [address] Performed By: #### L [id number] ####[facility] LABIA [id number] [place] [address] [place] M-PROTEIN LOCATION Gamma Fraction 1 Normal [facility] Comment on above: Order Comment: Speci men Type: BLOOD SPECIMENOrdering Facility: [facility] Address: [address] [place] [address] Performed By: #### L [id number] ####[facility] LABIA [id number] [place] [address] [place] Protein Fractions [Interp] An M protein is identified on protein electrophoresis. Abnormal No definitive M protein is identified on protein electrophor esis. [facility] Comment on above: Order Comment: Speci men Type: BLOOD SPECIMENOrdering Facility: [facility] Address: [address] [place] [address] Performed By: #### L [id number] ####[facility] LABCLIA [id number] [place] [address] [place] Protein.monoclonal Elph [Mass/Vol] 0.90 g/dL High <=0.00 [facility] Comment on above: Order Comment: Speci men Type: BLOOD SPECIMENOrdering Facility: [facility] Address: [address] [place] [address] Performed By: #### L [id number] ####[facility] LABIA [id number] [place] [address] [place] SPE STAFF REVIEW Reviewed by Malou Wahl MD [facility] Comment on above: Order Comment: Speci men Type: BLOOD SPECIMENOrdering Facility: [facility] Address: [address] [place] [address] Performed By: #### L [id number] ####[facility] LABIA [id number] [place] [address] [place] Prot SerPl-mCncon 05-14-2023 Protein [Mass/Vol] 6.5 g/dL Normal 6.3-8.0 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 * Stable additional findings, as described. NOTE: This report was created using voice recognition dictation software. If there is a concern for errors, please have the clinician contact the report author for clarification. Transcribe Date/Time: May 08 2023 7:46A Dictated by: KATHERINE BARGG MD This examination was interpreted and the report reviewed and electronically signed by: KATHERINE BRAGG MD on May 08 2023 9:47AM EST Thank you for allowing us to participate in the care of your patient. Should there be any questions regarding this interpretation, please call [phone]. If you are unable to reach us at the number above, please feel free to contact [facility] at [phone]. DIVISION OF RADIOLOGY * * *Final Report* * * DATE OF EXAM: May 07 2023 2:55PM NRN [id number] - NM PET/CT WHOLE BODY SUBQ / PROCEDURE REASON: Multiple myeloma not having achieved remission (HCC) * * * * Physician Interpretation * * * * RESULT: FDG PET/CT SCAN 05/07/2023 12:44 PM: CLINICAL HISTORY: 83 years old Male with Multiple myeloma not having achieved remission (HCC) INDICATION: Subsequent treatment strategy. Reference max SUV: Mediastinum blood pool activity: max SUV 1.7 TECHNIQUE: 13.4 mCi F-18 FDG IV, followed about 1 hour later by PET imaging from base of the skull to proximal femur. Non contrast CT was performed for attenuation correction and anatomic localization purposes, and acute/emergent/action able findings are described. [CSS] CT Dose-Length Product (DLP): 450 mGy*cm. CT Dose Reduction Employed: Yes BLOOD GLUCOSE: 120 mg/dL COMPARISON: 05/14/2022. RESULT: Note- The SUV value is for reference purposes. Due to technical factors and uncontrolled variables, caution is advised when using SUV to differentiate malignant from nonmalignant processes, or to assess follow-up/treatment response. LIMITATIONS: Bilateral multifocal physiologic muscle uptake likely secondary to altered biodistribution secondary to incomplete fasting/hyperglycemia HEAD AND NECK: No pathologically enlarged or hypermetabolic cervical lymphadenopathy. Uptake in the oral cavity, tonsils, salivary glands, extraocular muscles is likely physiologic. Substantially limited evaluation of the intracranial structures due to the physiologic dubon matter uptake. CHEST: Lungs and tracheobronchial tree: No hypermetabolic nodules or consolidation. Redemonstration of bilateral groundglass opacities and interstitial prominence (lower lobe predominant) likely secondary to fibrotic changes.. Pleura and pericardium: No significantly FDG avid pleural effusion. Mediastinum and Lymph nodes: No hypermetabolic axillary, hilar, or mediastinal lymphadenopathy. Chest wall: No hypermetabolic lesion. ABDOMEN AND PELVIS: Liver: Mildly heterogeneous uptake, no definite hypermetabolic lesion. Biliary: No focal FDG avidity. Spleen: No FDG avidity. No splenomegaly. Pancreas: No abnormal FDG avidity or duct dilation. Adrenals: No FDG avid lesion right adrenal. No FDG avid lesion left adrenal. tract: Within the limitation of the physiologic FDG excretion no hydronephrosis or grossly hypermetabolic lesion. GI tract: Areas of uptake are favored to be physiologic or due to medication effect, which limits evaluation of underlying lesions. Lymph nodes: No abdominal or pelvic hypermetabolic lymphadenopathy. Mesentery/Peritoneum: No focal hypermetabolic lesion. Vasculature: Vascular patency cannot be assessed due to lack of IV contrast. Pelvis: No focal hypermetabolic lesion. Abdominopelvic wall: No hypermetabolic lesion MUSCULOSKELETAL: 5.2 x 2.4 cm manubrial lytic expansile lesion with extraosseous soft tissue component, max SUV 1.3, previously 1.3 cm with max SUV 3.9; SUV comparison not accurate secondary to altered biodistribution.. Left and posteromedial rib expansile lesion is not significantly avid, stable Degenerative changes, especially at the left sternoclavicular joint. Redemonstration of the compression deformities, and thoracic spine transfixing hardware Manager Mail (topogram) images: No additional findings. DIVISION OF RADIOLOGY Provider, [facility] - 05/08/2023 * * *Final Report* * * DATE OF EXAM: May 07 2023 2:55PM NRN [id number] - NM PET/CT WHOLE BODY SUBQ / PROCEDURE REASON: Multiple myeloma not having achieved remission (HCC) * * * * Physician Interpretation * * * * RESULT: FDG PET/CT SCAN 05/07/2023 12:44 PM: CLINICAL HISTORY: 83 years old Male with Multiple myeloma not having achieved remission (HCC) INDICATION: Subsequent treatment strategy. Reference max SUV: Mediastinum blood pool activity: max SUV 1.7 TECHNIQUE: 13.4 mCi F-18 FDG IV, followed about 1 hour later by PET imaging from base of the skull to proximal femur. Non contrast CT was performed for attenuation correction and anatomic localization purposes, and acute/emergent/action able findings are described. [CSS] CT Dose-Length Product (DLP): 450 mGy*cm. CT Dose Reduction Employed: Yes BLOOD GLUCOSE: 120 mg/dL COMPARISON: 05/14/2022. RESULT: Note- The SUV value is for reference purposes. Due to technical factors and uncontrolled variables, caution is advised when using SUV to differentiate malignant from nonmalignant processes, or to assess follow-up/treatment response. LIMITATIONS: Bilateral multifocal physiologic muscle uptake likely secondary to altered biodistribution secondary to incomplete fasting/hyperglycemia HEAD AND NECK: No pathologically enlarged or hypermetabolic cervical lymphadenopathy. Uptake in the oral cavity, tonsils, salivary glands, extraocular muscles is likely physiologic. Substantially limited evaluation of the intracranial structures due to the physiologic dubon matter uptake. CHEST: Lungs and tracheobronchial tree: No hypermetabolic nodules or consolidation. Redemonstration of bilateral groundglass opacities and interstitial prominence (lower lobe predominant) likely secondary to fibrotic changes.. Pleura and pericardium: No significantly FDG avid pleural effusion. Mediastinum and Lymph nodes: No hypermetabolic axillary, hilar, or mediastinal lymphadenopathy. Chest wall: No hypermetabolic lesion. ABDOMEN AND PELVIS: Liver: Mildly heterogeneous uptake, no definite hypermetabolic lesion. Biliary: No focal FDG avidity. Spleen: No FDG avidity. No splenomegaly. Pancreas: No abnormal FDG avidity or duct dilation. Adrenals: No FDG avid lesion right adrenal. No FDG avid lesion left adrenal. tract: Within the limitation of the physiologic FDG excretion no hydronephrosis or grossly hypermetabolic lesion. GI tract: Areas of uptake are favored to be physiologic or due to medication effect, which limits evaluation of underlying lesions. Lymph nodes: No abdominal or pelvic hypermetabolic lymphadenopathy. Mesentery/Peritoneum: No focal hypermetabolic lesion. Vasculature: Vascular patency cannot be assessed due to lack of IV contrast. Pelvis: No focal hypermetabolic lesion. Abdominopelvic wall: No hypermetabolic lesion MUSCULOSKELETAL: 5.2 x 2.4 cm manubrial lytic expansile lesion with extraosseous soft tissue component, max SUV 1.3, previously 1.3 cm with max SUV 3.9; SUV comparison not accurate secondary to altered biodistribution.. Left and posteromedial rib expansile lesion is not significantly avid, stable Degenerative changes, especially at the left sternoclavicular joint. Redemonstration of the compression deformities, and thoracic spine transfixing hardware Manager Mail (topogram) images: No additional findings. IMPRESSION IMPRESSION: Head and Neck: * No evidence of FDG avid neoplastic process Chest: * No evidence of FDG avid neoplastic process Abdomen and pelvis: * No evidence of FDG avid neoplastic process Musculoskeletal: * Significant worsening of the now 5.2 cm manubrial expansile lesion compared to 01/11/2022. * Stable additional findings, as described. NOTE: This report was created using voice recognition dictation software. If there is a concern for errors, please have the clinician contact the report author for clarification. Transcribe Date/Time: May 08 2023 7:46A Dictated by: KATHERINE BRAGG MD This examination was interpreted and the report reviewed and electronically signed by: KATHERINE BRAGG MD on May 08 2023 9:47AM EST Thank you for allowing us to participate in the care of your patient. Should there be any questions regarding this interpretation, please call [phone]. If you are unable to reach us at the number above, please feel free to contact [facility] at [phone]. [facility] PET+CT Whole body Bone W 18F -NaF IVOrdered By: [facility] Provider on 05-08-2023 [facility] GLUCOSE, BLOOD (POC)on 05-07 Glucose [Mass/Vol] 120 mg/dL Abnormal 74 - 99 mg/dL [facility] Comment on above: Location:[facility], [address] [place] [address] , [place], [place], [facility] The Accu-Chek Inform II glucose meter has not been approved for testing on patients receiving intensive medical intervention or therapy and results from this point of care glucose test should not be used for patient management decisions in these cases. Inaccurate results may also occur from other interfering factors, such as N-acetylcysteine (blood concentrations of greater than 5mg/dL), galactose, extremes of hematocrit (<10 or >65), or high doses of ascorbic acid (vitamin C) greater than 3mg/dL. Consider alternate testing mechanisms (e.g. core lab, blood gas instrument) in the above situations. Interpretation and review of laboratory results Abnormal [facility] NM PET/CT WHOLE BODY SUBQon 05-07-2023 NM PET/CT WHOLE BODY SUBQ Normal [facility] PET+CT Whole body Bone W 18F -NaF Sada 05-07-2023 Radiology Study observation (narrative) [facility] CBC W Auto Differential pane l (Bld)on 04-16-2023 Basophils (Bld) [#/Vol] 0.05 10*3/uL Normal <0.11 [facility] Comment on above: Order Comment: Speci men Type: BLOOD SPECIMENOrdering Facility: [facility] Address: [address] [place] [address] Performed By: #### 5 7021-8 ####[facility] LABCLIA [id number] [place] [address] Basophils/100 WBC (Bld) 0.5 % Normal [facility] Comment on above: Order Comment: Speci men Type: BLOOD SPECIMENOrdering Facility: [facility] Address: [address] [place] [address] Performed By: #### 5 7021-8 ####[facility] LABCLIA [id number] [place] [address] Differential cell count method Nom (Bld) Auto Normal [facility] Comment on above: Order Comment: Speci men Type: BLOOD SPECIMENOrdering Facility: [facility] Address: [address] [place] [address] Performed By: #### 5 7021-8 ####[facility] LABCLIA [id number] [place] [address] Eosinophils (Bld) [#/Vol] 0.27 10*3/uL Normal <0.46 [facility] Comment on above: Order Comment: Speci men Type: BLOOD SPECIMENOrdering Facility: [facility] Address: [address] [place] [address] Performed By: #### 5 7021-8 ####[facility] LABCLIA [id number] [place] [address] Eosinophils/100 WBC (Bld) 2.9 % Normal [facility] Comment on above: Order Comment: Speci men Type: BLOOD SPECIMENOrdering Facility: [facility] Address: [address] [place] [address] Performed By: #### 5 7021-8 ####[facility] LABCLIA [id number] [place] [address] Erythrocyte distribution width (RBC) [Ratio] 14.1 % Normal 11.5-15.0 [facility] Comment on above: Order Comment: Speci men Type: BLOOD SPECIMENOrdering Facility: [facility] Address: [address] [place] [address] Performed By: #### 5 7021-8 ####[facility] LABCLIA [id number] [place] [address] Hematocrit (Bld) [Volume fraction] 43.0 % Normal 39.0-51.0 [facility] Comment on above: Order Comment: Speci men Type: BLOOD SPECIMENOrdering Facility: [facility] Address: [address] [place] [address] Performed By: #### 5 7021-8 ####[facility] LABCLIA [id number] [place] [address] Hemoglobin (Bld) [Mass/Vol] 14.0 g/dL Normal 13.0-17.0 [facility] Comment on above: Order Comment: Speci men Type: BLOOD SPECIMENOrdering Facility: [facility] Address: [address] [place] [address] Performed By: #### 5 7021-8 ####[facility] LABCLIA [id number] [place] [address] Immature granulocytes (Bld) [#/Vol] 0.05 10*3/uL Normal <0.10 [facility] Comment on above: Order Comment: Speci men Type: BLOOD SPECIMENOrdering Facility: [facility] Address: [address] [place] [address] Performed By: #### 5 7021-8 ####[facility] LABCLIA [id number] [place] [address] Immature granulocytes/100 WBC (Bld) 0.5 % Normal [facility] Comment on above: Order Comment: Speci men Type: BLOOD SPECIMENOrdering Facility: [facility] Address: [address] [place] [address] Performed By: #### 5 7021-8 ####[facility] LABCLIA [id number] [place] [address] Lymphocytes (Bld) [#/Vol] 1.13 10*3/uL Normal 1.00-4.00 [facility] Comment on above: Order Comment: Speci men Type: BLOOD SPECIMENOrdering Facility: [facility] Address: [address] [place] [address] Performed By: #### 5 7021-8 ####[facility] LABCLIA [id number] [place] [address] Lymphocytes/100 WBC (Bld) 12.1 % Normal [facility] Comment on above: Order Comment: Speci men Type: BLOOD SPECIMENOrdering Facility: [facility] Address: [address] [place] [address] Performed By: #### 5 7021-8 ####[facility] LABIA [id number] [place] [address] MCH (RBC) [Entitic mass] 35.0 pg High 26.0-34.0 [facility] Comment on above: Order Comment: Speci men Type: BLOOD SPECIMENOrdering Facility: [facility] Address: [address] [place] [address] Performed By: #### 5 7021-8 ####[facility] LABCLIA [id number] [place] [address] MCHC (RBC) [Mass/Vol] 32.6 g/dL Normal 30.5-36.0 [facility] Comment on above: Order Comment: Speci men Type: BLOOD SPECIMENOrdering Facility: [facility] Address: [address] [place] [address] Performed By: #### 5 7021-8 ####[facility] LABCLIA [id number] [place] [address] MCV (RBC) [Entitic vol] 107.5 fL High 80.0-100.0 [facility] Comment on above: Order Comment: Speci men Type: BLOOD SPECIMENOrdering Facility: [facility] Address: [address] [place] [address] Performed By: #### 5 7021-8 ####[facility] LABCLIA [id number] [place] [address] Monocytes (Bld) [#/Vol] 1.08 10*3/uL High <0.87 [facility] Comment on above: Order Comment: Speci men Type: BLOOD SPECIMENOrdering Facility: [facility] Address: [address] [place] [address] Performed By: #### 5 7021-8 ####[facility] LABCLIA [id number] [place] [address] Monocytes/100 WBC (Bld) 11.6 % Normal [facility] Comment on above: Order Comment: Speci men Type: BLOOD SPECIMENOrdering Facility: [facility] Address: [address] [place] [address] Performed By: #### 5 7021-8 ####[facility] LABCLIA [id number] [place] [address] Neutrophils (Bld) [#/Vol] 6.75 10*3/uL Normal 1.45-7.50 [facility] Comment on above: Order Comment: Speci men Type: BLOOD SPECIMENOrdering Facility: [facility] Address: [address] [place] [address] Performed By: #### 5 7021-8 ####[facility] LABCLIA [id number] [place] [address] Neutrophils/100 WBC (Bld) 72.4 % Normal [facility] Comment on above: Order Comment: Speci men Type: BLOOD SPECIMENOrdering Facility: [facility] Address: [address] [place] [address] Performed By: #### 5 7021-8 ####[facility] LABCLIA [id number] [place] [address] Nucleated RBC (Bld) [#/Vol] 10*3/uL Normal <0.01 [facility] Comment on above: Order Comment: Speci men Type: BLOOD SPECIMENOrdering Facility: [facility] Address: [address] [place] [address] Performed By: #### 5 7021-8 ####[facility] LABCLIA [id number] [place] [address] Nucleated RBC/100 WBC (Bld) [Ratio] 0.0 /100 WBC Normal [facility] Comment on above: Order Comment: Speci men Type: BLOOD SPECIMENOrdering Facility: [facility] Address: [address] [place] [address] Performed By: #### 5 7021-8 ####[facility] LABCLIA [id number] [place] [address] Platelet mean volume (Bld) [Entitic vol] 10.1 fL Normal 9.0-12.7 [facility] Comment on above: Order Comment: Speci men Type: BLOOD SPECIMENOrdering Facility: [facility] Address: [address] [place] [address] Performed By: #### 5 7021-8 ####[facility] LABCLIA [id number] [place] [address] Platelets (Bld) [#/Vol] 256 10*3/uL Normal 150-400 [facility] Comment on above: Order Comment: Speci men Type: BLOOD SPECIMENOrdering Facility: [facility] Address: [address] [place] [address] Performed By: #### 5 7021-8 ####[facility] LABCLIA [id number] [place] [address] RBC (Bld) [#/Vol] 4.00 10*6/uL Low 4.20-6.00 [facility] Comment on above: Order Comment: Speci men Type: BLOOD SPECIMENOrdering Facility: [facility] Address: [address] [place] [address] Performed By: #### 5 7021-8 ####[facility] LABCLIA [id number] [place] [address] WBC (Bld) [#/Vol] 9.33 10*3/uL Normal 3.70-11.00 [facility] Comment on above: Order Comment: Speci men Type: BLOOD SPECIMENOrdering Facility: [facility] Address: [address] [place] [address] Performed By: #### 5 7021-8 ####[facility] LABCLIA [id number] [place] [address] CNOVSPon 04-16-2023 CNOVSP Normal [facility] Comprehensive metabolic 2000 panelon 04-16-2023 Albumin [Mass/Vol] 4.0 g/dL Normal 3.9-4.9 [facility] Comment on above: Order Comment: Speci men Type: BLOOD SPECIMENOrdering Facility: [facility] Address: [address] [place] [address] Performed By: #### 2 4323-8 ####[facility] LABCLIA [id number] [place] [address] ALP [Catalytic activity/Vol] 81 U/L Normal 38-113 [facility] Comment on above: Order Comment: Speci men Type: BLOOD SPECIMENOrdering Facility: [facility] Address: [address] [place] [address] Performed By: #### 2 4323-8 ####[facility] LABCLIA [id number] [place] [address] ALT [Catalytic activity/Vol] 11 U/L Normal 10-54 [facility] Comment on above: Order Comment: Speci men Type: BLOOD SPECIMENOrdering Facility: [facility] Address: [address] [place] [address] Performed By: #### 2 4323-8 ####[facility]I [facility] LABCLIA [id number] [place] [address] Anion gap [Moles/Vol] 10 mmol/L Normal 9-18 [facility] Comment on above: Order Comment: Speci men Type: BLOOD SPECIMENOrdering Facility: [facility] Address: [address] [place] [address] Performed By: #### 2 4323-8 ####[facility] LABCLIA [id number] [place] [address] AST [Catalytic activity/Vol] 18 U/L Normal 14-40 [facility] Comment on above: Order Comment: Speci men Type: BLOOD SPECIMENOrdering Facility: [facility] Address: [address] [place] [address] Performed By: #### 2 4323-8 ####[facility] LABCLIA [id number] [place] [address] Bilirubin [Mass/Vol] 0.3 mg/dL Normal 0.2-1.3 [facility] Comment on above: Order Comment: Speci men Type: BLOOD SPECIMENOrdering Facility: [facility] Address: [address] [place] [address] Performed By: #### 2 4323-8 ####[facility] LABCLIA [id number] [place] [address] Calcium [Mass/Vol] 9.8 mg/dL Normal 8.5-10.2 [facility] Comment on above: Order Comment: Speci men Type: BLOOD SPECIMENOrdering Facility: [facility] Address: [address] [place] [address] Performed By: #### 2 4323-8 ####[facility] LABCLIA [id number] [place] [address] Chloride [Moles/Vol] 102 mmol/L Normal 97-105 [facility] Comment on above: Order Comment: Speci men Type: BLOOD SPECIMENOrdering Facility: [facility] Address: [address] [place] [address] Performed By: #### 2 4323-8 ####[facility] LABCLIA [id number] [place] [address] CO2 [Moles/Vol] 26 mmol/L Normal 22-30 [facility] Comment on above: Order Comment: Speci men Type: BLOOD SPECIMENOrdering Facility: [facility] Address: [address] [place] [address] Performed By: #### 2 4323-8 ####[facility] LABCLIA [id number] [place] [address] Creatinine [Mass/Vol] 1.34 mg/dL High 0.73-1.22 [facility] Comment on above: Order Comment: Speci men Type: BLOOD SPECIMENOrdering Facility: [facility] Address: [address] [place] [address] Performed By: #### 2 4323-8 ####[facility] LABCLIA [id number] [place] [address] Creatinine and Glomerular filtration rate.predicted panel (S/P/Bld) 53 mL/min/1.73m??? Low >=60 [facility] Comment on above: Order Comment: Speci men Type: BLOOD SPECIMENOrdering Facility: [facility] Address: [address] [place] [id number] Result Comment: Janae mated Glomerular Filtration Rate (eGFR) is calculated using the 2020 CKD-EPI creatinine equation. This equation utilizes serum creatinine, sex, and age as parameters. The creatinine assay has traceable calibration to isotope dilution-mass spectrometry. Refer to KDIGO guidelines for clinical interpretation. In patients with unstable renal function, e.g. those with acute kidney injury, the eGFR may not accurately reflect actual GFR. Performed By: #### 2 4323-8 ####[facility] LABCLIA [id number] [place] [address] Glucose [Mass/Vol] 106 mg/dL High 74-99 [facility] Comment on above: Order Comment: Ever duran Type: BLOOD SPECIMENOrdering Facility: [facility] Address: [address] [place] [address] Result Comment: The [place] Diabetes [employer] (ADA) provides guidance for cutoff values for fasting glucose and random glucose. The ADA defines fasting as no caloric intake for at least 8 hours. Fasting plasma glucose results between 100 to 125 mg/dL indicate increased risk for diabetes (prediabetes).Fasting plasma glucose results greater than or equal to 126 mg/dL meet the criteria for diagnosis of diabetes. In the absence of unequivocal hyperglycemia, results should be confirmed by repeat testing. In a patient with classic symptoms of hyperglycemia or hyperglycemic crisis, random plasma glucose results greater than or equal to 200 mg/dL meet the criteria for diagnosis of diabetes.Reference: Standards of Medical Care in Diabetes 2016, [place] [employer]. Diabetes Care. 2016.39(Suppl 1). Performed By: #### 2 4323-8 ####[facility] LABCLIA [id number] [place] [address] Potassium [Moles/Vol] 4.0 mmol/L Normal 3.7-5.1 [facility] Comment on above: Order Comment: Ever duran Type: BLOOD SPECIMENOrdering Facility: [facility] Address: [address] [id number] Performed By: #### 2 4323-8 ####[facility] LABCLIA [id number] [place] [address] Protein [Mass/Vol] 7.1 g/dL Normal 6.3-8.0 [facility] Comment on above: Order Comment: Speci men Type: BLOOD SPECIMENOrdering Facility: [facility] Address: [address] [place] [address] Performed By: #### 2 4323-8 ####[facility] LABCLIA [id number] [place] [address] Sodium [Moles/Vol] 138 mmol/L Normal 136-144 [facility] Comment on above: Order Comment: Speci men Type: BLOOD SPECIMENOrdering Facility: [facility] Address: [address] [place] [address] Performed By: #### 2 4323-8 ####[facility] LABCLIA [id number] [place] [address] Urea nitrogen [Mass/Vol] 24 mg/dL Normal 9-24 [facility] Comment on above: Order Comment: Speci men Type: BLOOD SPECIMENOrdering Facility: [facility] Address: [address] [place] [address] Performed By: #### 2 4323-8 ####[facility] LABCLIA [id number] [place] [address] HBV core Ab Ser Qlon 023 HBV core Ab Ql (S) Negative Normal Negative [facility] Comment on above: Order Comment: Speci men Type: BLOOD SPECIMENOrdering Facility: [facility] Address: [address] [place] [address] Result Comment: No e vidence of current or past infection with Hepatitis B virus. Should recent infection be suspected, repeat testing may be considered 3-4 weeks after this draw. Performed By: #### 1 6933-4, 5195-3, 43210-0 ####[facility] LABCLIA [id number] [facility] [id number] [place] HBV surface Ab Ql (S)on 03-31 HBV surface Ab Qn (S) <8.00 Normal [facility] Comment on above: Order Comment: Speci men Type: BLOOD SPECIMENOrdering Facility: [facility] Address: [address] [place] [address] Result Comment: <8 m IU/mL: No serological evidence of immunity to Hepatitis B Virus.>/= 8 to <12 mIU/mL: No serological evidence of immunity to Hepatitis B Virus.>/= 12 mIU/mL: Consistent with serological evidence of immunity to Hepatitis B Virus. Performed By: #### 1 6933-4, 5195-3, 10215-4 ####[facility] LABCLIA [id number] [place] [address] [place] HBV surface Ab Ser Qlon 03-31 HBV surface Ab Ql (S) Negative Normal [facility] Comment on above: Order Comment: Speci men Type: BLOOD SPECIMENOrdering Facility: [facility] Address: [address] [place] [address] Result Comment: No s erological evidence of immunity to Hepatitis B Virus. Performed By: #### 1 6933-4, 5195-3, 79441-6 ####[facility] LABCLIA [id number] [place] [address] [place] HBV surface Ag Ser Qlon 03-31 HBV surface Ag Ql (S) Negative Normal Negative [facility] Comment on above: Order Comment: Speci men Type: BLOOD SPECIMENOrdering Facility: [facility] Address: [address] [place] [address] Performed By: #### 1 6933-4, 5195-3, 47656-4 ####[facility] LABIA [id number] [place] [address] [place] HCV Ab Ser Qlon 04-16-2023 HCV Ab Ql (S) Negative Normal Negative [facility] Comment on above: Order Comment: Speci men Type: BLOOD SPECIMENOrdering Facility: [facility] Address: [address] [place] [address] Result Comment: The result suggests no evidence of active infection with Hepatitis C virus. Should recent infection be suspected, repeat testing may be considered 4-6 weeks after this draw. Performed By: #### 1 6128-1 ####[facility] LABCLIA [id number] [address] OF [place] IMMUNOFIXATION SCREEN, SERUM on 04-16-2023 INTERPRETATION (MPA) Atypical restricted bands are present in the IgG and lambda regions. Consistent with IgG lambda monoclonal gammopathy. Normal [facility] Comment on above: Order Comment: Speci men Type: BLOOD SPECIMENOrdering Facility: [facility] Address: [address] [place] [address] Performed By: #### I FES ####[facility] LABIA [id number] [address] STATES OF [facility] MPA RESULT M protein is present. Abnormal No M protein is identified. [facility] Comment on above: Order Comment: Speci men Type: BLOOD SPECIMENOrdering Facility: [facility] Address: [address] [place] [address] Performed By: #### I FES ####[facility] LABCLIA [id number] [address] STAFF REVIEW ([facility] [[email or web address] Reviewed by Dr. Britton Ceballos MD Normal [facility] Comment on above: Order Comment: Speci men Type: BLOOD SPECIMENOrdering Facility: [facility] Address: [address] [place] [address] Performed By: #### I FES ####[facility] LABIA [id number] [place] [id number] [place] IMMUNOGLOBULINS GAMon 2022 IgA [Mass/Vol] 120 mg/dL Normal 70-400 [facility] Comment on above: Order Comment: Speci men Type: BLOOD SPECIMENOrdering Facility: [facility] Address: [address] [place] [address] Performed By: #### S ERIMM ####[facility] LABCLIA [id number] [place] [address] [place] IgG [Mass/Vol] 1330 mg/dL Normal 700-1600 [facility] Comment on above: Order Comment: Speci men Type: BLOOD SPECIMENOrdering Facility: [facility] Address: [address] [place] [address] Performed By: #### S ERIMM ####[facility] LABCLIA [id number] [place] [address] [place] IgM [Mass/Vol] 25 mg/dL Low 40-230 [facility] Comment on above: Order Comment: Speci men Type: BLOOD SPECIMENOrdering Facility: [facility] Address: [address] [place] [address] Performed By: #### S ERIMM ####[facility] LABCLIA [id number] [place] [address] [place] KAPPA/HERNANDEZ,FREE,SERon 2022 Immunoglobulin light chains.kappa.free (S) [Mass/Vol] 46.7 mg/L High 3.3-19.4 [facility] Comment on above: Order Comment: Speci men Type: BLOOD SPECIMENOrdering Facility: [facility] Address: [address] [place] [address] Result Comment: Rare ly, increased serum free light chains levels may not be detected or accurately quantified due to prozone phenomenon or in high viscosity samples using this immunoturbidimetric assay. Correlation with other laboratory results and clinical findings is recommended.The [place] Free Light Chain was performed using the Binding Site Optilite immunoturbidimetric method. Result obtained with different assay methods or kits cannot be used interchangeably. Performed By: #### K LFRS ####[facility] LABCLIA [id number] [place] [address] [place] Immunoglobulin light chains.kappa/Immunoglobu natanael light chains.lambda (S) [Mass ratio] 0.32 Normal 0.26-1.65 [facility] Comment on above: Order Comment: Speci men Type: BLOOD SPECIMENOrdering Facility: [facility] Address: [address] [place] [address] Performed By: #### K LFRS ####[facility] LABCLIA [id number] [place] [address] [place] Immunoglobulin light chains.lambda.free [Mass/Vol] 147.5 mg/L High 5.7-26.3 [facility] Comment on above: Order Comment: Speci men Type: BLOOD SPECIMENOrdering Facility: [facility] Address: [address] [place] [address] Result Comment: Rare ly, increased serum free light chains levels may not be detected or accurately quantified due to prozone phenomenon or in high viscosity samples using this immunoturbidimetric assay. Correlation with other laboratory results and clinical findings is recommended.The Lambda Free Light Chain was performed using the Binding Site Optilite immunoturbidimetric method. Result obtained with different assay methods or kits cannot be used interchangeably. Performed By: #### K LFRS ####[facility] LABCLIA [id number] [place] [address] [place] PROTEIN ELECTROPHORESIS SERU M (P)on 04-16-2023 Albumin [Mass/Vol] 3.87 g/dL Normal 3.43-5.41 [facility] Comment on above: Order Comment: Speci men Type: BLOOD SPECIMENOrdering Facility: [facility] Address: [address] [place] [address] Performed By: #### L [id number] ####[facility] LABCLIA [id number] [place] [address] [place] Alpha 1 globulin Elph [Mass/Vol] 0.31 g/dL Normal 0.18-0.43 [facility] Comment on above: Order Comment: Speci men Type: BLOOD SPECIMENOrdering Facility: [facility] Address: [address] [place] [address] Performed By: #### L [id number] ####[facility] LABCLIA [id number] [place] [address] [place] Alpha 2 globulin Elph [Mass/Vol] 0.86 g/dL Normal 0.42-0.98 [facility] Comment on above: Order Comment: Speci men Type: BLOOD SPECIMENOrdering Facility: [facility] Address: [address] [place] [address] Performed By: #### L [id number] ####[facility] LABCLIA [id number] [place] [address] [place] Beta globulin Elph [Mass/Vol] 0.79 g/dL Normal 0.61-1.17 [facility] Comment on above: Order Comment: Speci men Type: BLOOD SPECIMENOrdering Facility: [facility] Address: [address] [place] [address] Performed By: #### L [id number] ####[facility] LABIA [id number] [place] [address] [place] Gamma globulin Elph [Mass/Vol] 1.27 g/dL Normal 0.53-1.51 [facility] Comment on above: Order Comment: Speci men Type: BLOOD SPECIMENOrdering Facility: [facility] Address: [address] [place] [address] Performed By: #### L [id number] ####[facility] LABIA [id number] [place] [address] [place] INTERPRETATION COMMENT FOR PROTEIN ELECTROPHORESIS See separate immunofixation report for characterization of monoclonal gammopathy. Normal [facility] Comment on above: Order Comment: Speci men Type: BLOOD SPECIMENOrdering Facility: [facility] Address: [address] [place] [address] Performed By: #### L [id number] ####[facility] LABIA [id number] [place] [address] [place] M-PROTEIN LOCATION Gamma Fraction 1 Normal [facility] Comment on above: Order Comment: Speci men Type: BLOOD SPECIMENOrdering Facility: [facility] Address: [address] [place] [address] Performed By: #### L [id number] ####[facility] LABCLIA [id number] [place] [address] [place] Protein Fractions [Interp] An M protein is identified on protein electrophoresis. Abnormal No definitive M protein is identified on protein electrophor esis. [facility] Comment on above: Order Comment: Speci men Type: BLOOD SPECIMENOrdering Facility: [facility] Address: [address] [place] [address] Performed By: #### L [id number] ####[facility] LABIA [id number] [place] [address] [place] Protein.monoclonal Elph [Mass/Vol] 0.80 g/dL High <=0.00 [facility] Comment on above: Order Comment: Speci men Type: BLOOD SPECIMENOrdering Facility: [facility] Address: [address] [place] [address] Performed By: #### L [id number] ####[facility] LABIA [id number] [place] [address] [place] SPE STAFF REVIEW Reviewed by Dr. Britton Ceballos MD [facility] Comment on above: Order Comment: Speci men Type: BLOOD SPECIMENOrdering Facility: [facility] Address: [address] [place] [address] Performed By: #### L [id number] ####[facility] LABIA [id number] [place] [address] [place] Prot SerPl-mCncon 04-16-2023 Protein [Mass/Vol] 6.7 g/dL Normal 6.3-8.0 [facility] Comment on above: Order Comment: Speci men Type: BLOOD SPECIMENOrdering Facility: [facility] Address: [address] [place] [address] Performed By: #### 2 885-2 ####[facility] LABURI [id number] [facility] [id number] [id number] [place] CNPNon 04-10-2023 CNPN Normal [facility] Radiation Oncology Follow-Up on 03-08-2023 Radiation Oncology Follow-Up Levy Thomas MD [address] [address] DIAGNOSIS: Bladder neoplasm Dear Tmioteo: I had the pleasure of seeing Missy Salgado today. As you know, he completed radiation therapy one month ago. His energy is still low, though that seems to be related to other health issues. Specifically, he seems to have gotten over any additional fatigue that was caused by radiotherapy. He mentions that he still has urinary frequency, though he has no dysuria. He also has not had hematuria. His bowels have been normal. His appetite is good. On physical examination, he looks much healthier now than he did when we first met him. Specifically, his skin coloring is better and he seems to be much more comfortably interactive. There is no adenopathy in the head or neck region. Lungs are clear. Heart is regular. Abdominal exam is benign. Bowel sounds are within normal limits. Extremities are free of cyanosis, clubbing, or edema. Therefore, my impression is that Mr. Salgado seems to be getting over his radiation therapy induced side effects in a reasonable time frame. I did speak with Radha today, and she mentioned that it might be reasonable for him to try two Flomax pills per day to help with his frequency, and then he will be seen by your team in about two weeks to assess whether that move led to any improvements. So, Mr. Salgado was tentatively scheduled to return again to our clinic in September after he returns from [place], though with the understanding that he can call in the interim if he has any questions or concerns. I certainly appreciate the opportunity to take part in his care, and I invite any suggestions regarding the specifics of his further care. From the perspective of survivorship, we once again discussed prognosis as well as the potential acute, sub-acute, and intermediate side effects of radiotherapy. We also talked about a proposed follow up schedule, which provider they will see next, and what types of radiographic surveillance may or may not be associated with their ongoing follow up. The patient was made aware that notes in the hospital system are available through the patient portal. Sincerely, Abiodun Nugent MD, MS Radiation Oncologist CC: MD Levy Ramos MD [facility] Radiation Oncology Consultat [facility] 12-21-2022 Radiation Oncology Consultation REFERRING PHYSICIAN: Levy Thomas MD DIAGNOSIS: Primary bladder cancer HISTORY OF PRESENT ILLNESS: Missy Salgado is a 82 year old who presented with bladder cancer in 2018. He was treated with mitomycin bladder instillation and continued active surveillence with urology. His energy level has been poor since his cardiac events, and his appetite is reasonably good. His main symptoms at this time are fatigue and some bladder issues. He underwent a bladder biopsy 05/26/18 whose pathologic examination suggested low grade papillary urothelial carcinoma, non-invasive. Mild chronic cystitis. Radiographic studies to date include: 12/05/22 MRI- Lumbar spine- Chronic L3 vertebral body severe central height loss, similar in appearance dating back to at least 02/12/2018. Associated central marrow edema may represent an acute component with possibility of underlying pathologic fracture not entirely excluded. Mild/moderate multilevel lumbar spondylosis. No high-grade spinal canal stenosis or neural foraminal narrowing. His current level of pain is 0 out of 10. He has discussed his circumstances with his other physicians, and he is sent to our clinic in consultation to learn about the potential use of radiotherapy in this setting. HORMONE THERAPY/CHEMOTHERAPY: 2017 He has received 6 cycles of adjuvant therapy with velcade, cytoxan and decadron. PRIOR RADIATION THERAPY: 2017 Thoracic spine treated from 11/22/10 through 12/08/10, 3600 cGy in 12 fractions over 16 elasped days. Followed by an additional 600 cGy with cone down in 3 fractions ending on 12/13/10. Radaition to the left clavical from 03/05/17- 03/11/17, 2000 cGy in 5 fractions. 2019 Completed treatment to the left sinus and orbit on 10/24/18, 3000 cGy in 10 fractions. Course: C2_ LT CLAVICAL Treatment Site: LT CLAVICAL Energy: 6X Dose/Fx (cGy): 400 #Fx: 5 / Dose Correction (cGy): 0 Total Dose (cGy): 2,000 Start Date: 03/05/2017 End Date: 03/11/2017 Elapsed Days: 6 Course: C3 L Sinus-Orbit Treatment Site: L Sinus-Orbit Energy: 6X Dose/Fx (cGy): 300 #Fx: 10 / 10 Dose Correction (cGy): 0 Total Dose (cGy): 3,000 Start Date: 10/13/2018 End Date: 10/24/2018 Elapsed Days: 11 Course: C4- 9th Rib Treatment Site: L 9thPostRib Energy: 18X Dose/Fx (cGy): 400 #Fx: 5 / 5 Dose Correction (cGy): 0 Total Dose (cGy): 2,000 Start Date: 06/02/2021 End Date: 06/08/2021 Elapsed Days: 6 MEDICAL HISTORY: Atrial fibrillation, Bladder cancer, CAD, caratacts, Chronic renal disease, Macular degeneration, myeloma, peyronie's disease and plasmacytoma. PROCEDURE/SURGICAL HISTORY: Bladder tumor removal on 05/26/2018, bone marrow biopsy on 12/01/2010, colonoscopy on 08/29/2007, coronary angioplasty with stent on 02/24/2014, cyst removal in 2005, Cystoscopy/ TURB on 09/20/2020, eye surgery on 05/07/2013, hernia repair in 2007, hernia repair in 01/2018, knee surgery, lumbar laminectomy on 12/30/2010, prostate biopsy x2, Transesophageal Echocardiagram on 03/13/2022, TURB with mitomycin on 12/30/2018 and Watchman placement on 03/20/2022. FAMILY HISTORY: Paternal grandmother had breast cancer. Sister had ovarian cancer. SUBSTANCE ABUSE HISTORY: Yes - but has quit for 41 years. Smoked 1 pack/day for 12 years (12 pack years). Active drinker 1 drink/day. SOCIAL HISTORY: Patient indicated access to the following support systems: Lives with spouse, significant other, family, or friends. IMPLANTABLE DEVICES: Does the patient have implantable devices? - Patient states he DOES have implantable devices. Pacemaker - No Defibrillator - No Other - Yes - Watchman implanted in left chest. Patient alert created. - No RN Initials - ams VITALS: Performed on 12/21/2022 2:43 PM Weight - 212.0 lbs - Temperature - 98.4 F - Pulse - 84 /min - Systolic - 119 mm(hg) - Diastolic - 80 mm(hg) - MEDICATIONS: Acyclovir Aspirin Adult Low Dose B Complex Calcium Cholecalciferol Darzalex Faspro Meclizine HCl Metoprolol Tartrate PreserVision AREDS Probiotic Formula Rivaroxaban Viagra ALLERGIES: Statins PAIN ASSESSMENT: lower back pain Tylenol as needed RN Initials: frances NUTRITIONAL ASSESSMENT: Have you recently lost weight without trying? No Have you been eating poorly because of a decreased appetite? No Score 0 RN/Professional Initials: frances DIETITIAN NOTES: See chart. PATIENT EDUCATION: General Patient Education - Patient given facility packet containing treatment, side effects, and skin care information. REVIEW OF SYSTEMS: Greater than twelve systems were reviewed, and the details of that review are contained on the patient intake form in our departmental chart. In addition to the items mentioned above: Constitutional - Complains of fatigue. Denies lack of appetite, fever, lethargy, malaise, night sweats and change in weight. Allergic/Immunologic - Complains of allergies and adverse reactions. Head - Denies alopecia. Eyes - Complains o (more content not included)... Normal [facility] PSA, Diagnosticon 09-17-2022 Interpretation and review of laboratory results Abnormal [facility] CBC W Auto Differential pane l (Bld)on 09-04-2022 Basophils (Bld) [#/Vol] 0.07 10*3/uL <0.11 k/uL [facility] Basophils/100 WBC (Bld) 0.7 % [facility] Differential cell count method Nom (Bld) Auto [facility] Eosinophils (Bld) [#/Vol] 0.18 10*3/uL <0.46 k/uL [facility] Eosinophils/100 WBC (Bld) 1.7 % [facility] Erythrocyte distribution width (RBC) [Ratio] 16.3 % High 11.5 - 15.0 % [facility] Hematocrit (Bld) [Volume fraction] 44.0 % 39.0 - 51.0 % [facility] Hemoglobin (Bld) [Mass/Vol] 14.1 g/dL 13.0 - 17.0 g/dL [facility] Immature granulocytes (Bld) [#/Vol] 0.05 10*3/uL <0.10 k/uL [facility] Immature granulocytes/100 WBC (Bld) 0.5 % [facility] Lymphocytes (Bld) [#/Vol] 1.99 10*3/uL 1.00 - 4.00 k/uL [facility] Lymphocytes/100 WBC (Bld) 19.3 % [facility] MCH (RBC) [Entitic mass] 31.9 pg 26. 0 - 34.0 pg [facility] MCHC (RBC) [Mass/Vol] 32.0 g/dL 30.5 - 36.0 g/dL [facility] MCV (RBC) [Entitic vol] 99.5 fL 80.0 - 100.0 fL [facility] Monocytes (Bld) [#/Vol] 1.36 10*3/uL High <0.87 k/uL [facility] Monocytes/100 WBC (Bld) 13.2 % [facility] Neutrophils (Bld) [#/Vol] 6.67 10*3/uL 1.45 - 7.50 k/uL [facility] Neutrophils/100 WBC (Bld) 64.6 % [facility] Nucleated RBC (Bld) [#/Vol] <0.01 k/uL [facility] Nucleated RBC/100 WBC (Bld) [Ratio] 0.0 /100 WBC [facility] Platelet mean volume (Bld) [Entitic vol] 10.0 fL 9.0 - 12.7 fL [facility] Platelets (Bld) [#/Vol] 248 10*3/uL 150 - 400 k/uL [facility] RBC (Bld) [#/Vol] 4.42 10*6/uL 4.20 - 6.0 0 m/uL [facility] WBC (Bld) [#/Vol] 10.32 10*3/uL 3.70 - 11.00 k/uL [facility] Comprehensive metabolic 2000 panelon 09-04-2022 Albumin [Mass/Vol] 4.3 g/dL 3.9 - 4.9 g/dL [facility] ALP [Catalytic activity/Vol] 89 U/L 38 - 113 U/L [facility] ALT [Catalytic activity/Vol] 12 U/L 10 - 54 U/L [facility] Anion gap [Moles/Vol] 11 mmol/L 9 - 18 mmol/L [facility] AST [Catalytic activity/Vol] 21 U/L 14 - 40 U/L [facility] Bilirubin [Mass/Vol] 0.4 mg/dL 0.2 - 1 .3 mg/dL [facility] Calcium [Mass/Vol] 9.7 mg/dL 8.5 - 10. 2 mg/dL [facility] Chloride [Moles/Vol] 100 mmol/L 97 - 10 5 mmol/L [facility] CO2 [Moles/Vol] 27 mmol/L 22 - 30 mmol/L [facility] Creatinine [Mass/Vol] 1.40 mg/dL High 0.73 - 1.22 mg/dL [facility] Estimated Glomerular Filtration Rate 51 mL/min/1.73m Low >=60 mL/min/1.73 m [facility] Glucose [Mass/Vol] 117 mg/dL High 74 - 99 mg/dL [facility] Potassium [Moles/Vol] 4.3 mmol/L 3.7 - 5.1 mmol/L [facility] Protein [Mass/Vol] 7.1 g/dL 6.3 - 8.0 g/dL [facility] Sodium [Moles/Vol] 138 mmol/L 136 - 144 mmol/L [facility] Urea nitrogen [Mass/Vol] 18 mg/dL 9 - 24 mg/dL [facility] CBC W Auto Differential pane l (Bld)on 05-22-2022 Basophils (Bld) [#/Vol] 0.05 10*3/uL <0.11 k/uL [facility] Basophils/100 WBC (Bld) 0.5 % [facility] Differential cell count method Nom (Bld) Auto [facility] Eosinophils (Bld) [#/Vol] 0.14 10*3/uL <0.46 k/uL [facility] Eosinophils/100 WBC (Bld) 1.5 % [facility] Erythrocyte distribution width (RBC) [Ratio] 15.9 % High 11.5 - 15.0 % [facility] Hematocrit (Bld) [Volume fraction] 38.2 % Low 39.0 - 51.0 % [facility] Hemoglobin (Bld) [Mass/Vol] 12.1 g/dL Low 13.0 - 17.0 g/dL [facility] Immature granulocytes (Bld) [#/Vol] 0.04 10*3/uL <0.10 k/uL [facility] Immature granulocytes/100 WBC (Bld) 0.4 % [facility] Lymphocytes (Bld) [#/Vol] 1.70 10*3/uL 1.00 - 4.00 k/uL [facility] Lymphocytes/100 WBC (Bld) 17.8 % [facility] MCH (RBC) [Entitic mass] 30.1 pg 26. 0 - 34.0 pg [facility] MCHC (RBC) [Mass/Vol] 31.7 g/dL 30.5 - 36.0 g/dL [facility] MCV (RBC) [Entitic vol] 95.0 fL 80.0 - 100.0 fL [facility] Monocytes (Bld) [#/Vol] 1.10 10*3/uL High <0.87 k/uL [facility] Monocytes/100 WBC (Bld) 11.5 % [facility] Neutrophils (Bld) [#/Vol] 6.51 10*3/uL 1.45 - 7.50 k/uL [facility] Neutrophils/100 WBC (Bld) 68.3 % [facility] Nucleated RBC (Bld) [#/Vol] <0.01 k/uL [facility] Nucleated RBC/100 WBC (Bld) [Ratio] 0.0 /100 WBC [facility] Platelet mean volume (Bld) [Entitic vol] 9.9 fL 9.0 - 12.7 fL [facility] Platelets (Bld) [#/Vol] 329 10*3/uL 150 - 400 k/uL [facility] RBC (Bld) [#/Vol] 4.02 10*6/uL Low 4.20 - 6.0 0 m/uL [facility] WBC (Bld) [#/Vol] 9.54 10*3/uL 3.70 - 11.00 k/uL [facility] Comprehensive metabolic 2000 panelon 05-22-2022 Albumin [Mass/Vol] 3.6 g/dL Low 3.9 - 4.9 g/dL [facility] ALP [Catalytic activity/Vol] 97 U/L 38 - 113 U/L [facility] ALT [Catalytic activity/Vol] 11 U/L 10 - 54 U/L [facility] Anion gap [Moles/Vol] 7 mmol/L Low 9 - 18 mmol/L [facility] AST [Catalytic activity/Vol] 20 U/L 14 - 40 U/L [facility] Bilirubin [Mass/Vol] 0.2 mg/dL 0.2 - 1 .3 mg/dL [facility] Calcium [Mass/Vol] 10.0 mg/dL 8.5 - 10. 2 mg/dL [facility] Chloride [Moles/Vol] 103 mmol/L 97 - 10 5 mmol/L [facility] CO2 [Moles/Vol] 29 mmol/L 22 - 30 mmol/L [facility] Creatinine [Mass/Vol] 1.33 mg/dL High 0.73 - 1.22 mg/dL [facility] Estimated Glomerular Filtration Rate 54 mL/min/1.73m Low >=60 mL/min/1.73 m [facility] Glucose [Mass/Vol] 149 mg/dL High 74 - 99 mg/dL [facility] Potassium [Moles/Vol] 4.3 mmol/L 3.7 - 5.1 mmol/L [facility] Protein [Mass/Vol] 6.8 g/dL 6.3 - 8.0 g/dL [facility] Sodium [Moles/Vol] 139 mmol/L 136 - 144 mmol/L [facility] Urea nitrogen [Mass/Vol] 21 mg/dL 9 - 24 mg/dL [facility] PSA, Diagnosticon 05-16-2022 Interpretation and review of laboratory results Abnormal [facility] GLUCOSE, BLOOD (POC)on 05-14 Glucose [Mass/Vol] 87 mg/dL 74 - 99 mg/dL [facility] Comment on above: Location:[facility], [address] [place] [address] , [place], [place], [facility] The Accu-Chek Inform II glucose meter has not been approved for testing on patients receiving intensive medical intervention or therapy and results from this point of care glucose test should not be used for patient management decisions in these cases. Inaccurate results may also occur from other interfering factors, such as N-acetylcysteine (blood concentrations of greater than 5mg/dL), galactose, extremes of hematocrit (<10 or >65), or high doses of ascorbic acid (vitamin C) greater than 3mg/dL. Consider alternate testing mechanisms (e.g. core lab, blood gas instrument) in the above situations. [facility] PET+CT Whole body Bone W 18F -NaF Sada 05-14-2022 IMPRESSION: 1. HEAD and NECK: No evidence of focal uptake to suggest FDG avid neoplastic process.. 2. CHEST: No evidence of focal uptake to suggest FDG avid neoplastic process.. 3. ABDOMEN/PELVIS: No evidence of focal uptake to suggest FDG avid neoplastic process.. 4. EXTREMITIES/SKELETON: Expansile lesion in the left medial clavicle head, minimal change since prior study. Transcribe Date/Time: May 14 2022 2:55P Dictated by: LOKI AQUINO MD This examination was interpreted and the report reviewed and electronically signed by: LOKI AQUINO MD on May 14 2022 3:08PM EST Thank you for allowing us to participate in the care of your patient. Should there be any questions regarding this interpretation, please call [phone]. If you are unable to reach us at the number above, please feel free to contact [facility] at [phone]. DIVISION OF RADIOLOGY * * *Final Report* * * DATE OF EXAM: May 14 2022 2:55PM NRN [id number] - NM PET/CT WHOLE BODY SUBQ / PROCEDURE REASON: Multiple myeloma not having achieved remission (HCC) * * * * Physician Interpretation * * * * RESULT: WHOLE (OR REGIONAL) BODY PET-CT SCAN CLINICAL HISTORY: Multiple myeloma. INDICATION: Initial treatment strategy. TECHNIQUE: PET-CT scan: Approximately 60 minutes following the IV administration of F-18 FDG (13.6 mCi of F-18 FDG), PET and non contrast CT images were acquired from the vertex through toes. PET images were reconstructed with and without attenuation correction using attenuation coefficients. The blood glucose level before FDG injection is 87 mg/dL CT Radiation dose: Integrated Dose-length product (DLP) for this visit = 407 mGy*cm. CT Dose Reduction Employed: Automatic exposure control used (AED) COMPARISON: FDG PET-CT: 05/17/2021 CORRELATION: None. RESULTS: Topogram review: Unremarkable, no acute findings. No retained foreign body. Head and Neck: No evidence of focal uptake to suggest FDG avid neoplastic process. No significant anatomical abnormality to the limits of low dose noncontrast CT scan. Chest: No evidence of focal uptake to suggest FDG avid neoplastic process. Scarring and atelectasis in the bilateral posterior lung. Small paratracheal, subcarinal and hilar lymph nodes with mild FDG uptake, likely reactive in nature. Nonspecific diffuse heterogeneous uptake in esophagus. Abdomen and Pelvis: No evidence of focal uptake to suggest FDG avid neoplastic process. No significant anatomical abnormality to the limits of low dose noncontrast CT scan. Extremities/Skeleton: Stable expansile mixed sclerotic and radiolucent lesions in the medial left clavicle head with minimal FDG uptake of max SUV 2.6, previously 1.2. Degenerative arthritic changes. Postsurgical changes in the thoracic spine. Stable T8 sclerotic lesion. DIVISION OF RADIOLOGY Provider, [facility] - 05/14/2022 * * *Final Report* * * DATE OF EXAM: May 14 2022 2:55PM NRN [id number] - NM PET/CT WHOLE BODY SUBQ / PROCEDURE REASON: Multiple myeloma not having achieved remission (HCC) * * * * Physician Interpretation * * * * RESULT: WHOLE (OR REGIONAL) BODY PET-CT SCAN CLINICAL HISTORY: Multiple myeloma. INDICATION: Initial treatment strategy. TECHNIQUE: PET-CT scan: Approximately 60 minutes following the IV administration of F-18 FDG (13.6 mCi of F-18 FDG), PET and non contrast CT images were acquired from the vertex through toes. PET images were reconstructed with and without attenuation correction using attenuation coefficients. The blood glucose level before FDG injection is 87 mg/dL CT Radiation dose: Integrated Dose-length product (DLP) for this visit = 407 mGy*cm. CT Dose Reduction Employed: Automatic exposure control used (AED) COMPARISON: FDG PET-CT: 05/17/2021 CORRELATION: None. RESULTS: Topogram review: Unremarkable, no acute findings. No retained foreign body. Head and Neck: No evidence of focal uptake to suggest FDG avid neoplastic process. No significant anatomical abnormality to the limits of low dose noncontrast CT scan. Chest: No evidence of focal uptake to suggest FDG avid neoplastic process. Scarring and atelectasis in the bilateral posterior lung. Small paratracheal, subcarinal and hilar lymph nodes with mild FDG uptake, likely reactive in nature. Nonspecific diffuse heterogeneous uptake in esophagus. Abdomen and Pelvis: No evidence of focal uptake to suggest FDG avid neoplastic process. No significant anatomical abnormality to the limits of low dose noncontrast CT scan. Extremities/Skeleton: Stable expansile mixed sclerotic and radiolucent lesions in the medial left clavicle head with minimal FDG uptake of max SUV 2.6, previously 1.2. Degenerative arthritic changes. Postsurgical changes in the thoracic spine. Stable T8 sclerotic lesion. IMPRESSION IMPRESSION: 1. HEAD and NECK: No evidence of focal uptake to suggest FDG avid neoplastic process.. 2. CHEST: No evidence of focal uptake to suggest FDG avid neoplastic process.. 3. ABDOMEN/PELVIS: No evidence of focal uptake to suggest FDG avid neoplastic process.. 4. EXTREMITIES/SKELETON: Expansile lesion in the left medial clavicle head, minimal change since prior study. Transcribe Date/Time: May 14 2022 2:55P Dictated by: LOKI AQUINO MD This examination was interpreted and the report reviewed and electronically signed by: LOKI AQUINO MD on May 14 2022 3:08PM EST Thank you for allowing us to participate in the care of your patient. Should there be any questions regarding this interpretation, please call [phone]. If you are unable to reach us at the number above, please feel free to contact [facility] eRadiology at [phone]. [facility] Radiology Study observation (narrative) [facility] PET+CT Whole body Bone W 18F -NaF IVOrdered By: Ccf Provider on 05-14-2022 [facility] Basic Metabolic Panelon -2 Anion gap [Moles/Vol] 7 mmol/L Low 9 - 17 mmol/L [facility] Calcium [Mass/Vol] 8.4 mg/dL Low 8.6 - 10. 4 mg/dL [facility] Chloride [Moles/Vol] 107 mmol/L 98 - 10 7 mmol/L [facility] CO2 [Moles/Vol] 26 mmol/L 20 - 31 mmol/L [facility] Creatinine [Mass/Vol] 1.48 mg/dL High 0.7 - 1.2 mg/dL [facility] GFR 55 mL/min Low 60 - PI NF mL/min [facility] GFR Non- 46 mL/min Low 60 - PINF mL/min [facility] GFR/1.73 sq M.predicted MDRD (S/P/Bld) [Vol rate/Area] [facility] Comment on above: Average GFR for 70 o r more years old: 75 mL/min/1.73sq m Chronic Kidney Disease: <60 mL/min/1.73sq m Kidney failure: <15 mL/min/1.73sq m eGFR calculated using average adult body mass. Additional eGFR calculator available at: http://www.MXP4/multiple_crcl_2012.htm Glucose [Mass/Vol] 100 mg/dL High 70 - 99 mg/dL [facility] Interpretation and review of laboratory results Abnormal [facility] Potassium [Moles/Vol] 5.0 mmol/L 3.7 - 5.3 mmol/L [facility] Sodium [Moles/Vol] 140 mmol/L 135 - 144 mmol/L [facility] Urea nitrogen (BldV) [Mass/Vol] 16 mg/dL 8 - 23 mg/dL [facility] Basic Metabolic Profon 03-21 (cont.) Normal [facility] Comment on above: Result Comment: Aver age GFR for 70 or more years old: 75 mL/min/1.73sq m Chronic Kidney Disease: <60 mL/min/1.73sq m Kidney failure: <15 mL/min/1.73sq m eGFR calculated using average adult body mass. Additional eGFR calculator available at: http://www.MXP4/Hashable_crcl_2012.htm Performed By: #### F EBC, CDP, RETCT, PT, PATH, FERI, TROPI, BMPX #### [employer] [address] [place], [place] [id number] [employer]: Brennan Daniel MD Anion gap [Moles/Vol] 7 mmol/L Low 9-17 [facility] Comment on above: Performed By: #### F EBC, CDP, RETCT, PT, PATH, FERI, TROPI, BMPX #### [employer] [address] [place], [place] [id number] Service [employer]: Brennan Daniel MD Calcium [Mass/Vol] 8.4 mg/dL Low 8.6-10.4 [facility] Comment on above: Performed By: #### F EBC, CDP, RETCT, PT, PATH, FERI, TROPI, BMPX #### [facility] [employer] [address] [place] [address] [employer]: Brennan Daniel MD Chloride [Moles/Vol] 107 mmol/L Normal 98-107 [facility] Comment on above: Performed By: #### F EBC, CDP, RETCT, PT, PATH, FERI, TROPI, BMPX #### [address] [address] [employer]: Brennan Daniel MD CO2 [Moles/Vol] 26 mmol/L Normal 20-31 [facility] Comment on above: Performed By: #### F EBC, CDP, RETCT, PT, PATH, FERI, TROPI, BMPX #### [facility] [employer] [address] [place] [address] Service Unit Operator [employer]: Brennan Daniel MD Creatinine [Mass/Vol] 1.48 mg/dL High 0.70-1.20 [facility] Comment on above: Performed By: #### F EBC, CDP, RETCT, PT, PATH, FERI, TROPI, BMPX #### [facility] [employer] [address] [place] [address] [employer]: Brennan Daniel MD GFR, Amer 55 mL/min Low >60 [facility] Comment on above: Performed By: #### F EBC, CDP, RETCT, PT, PATH, FERI, TROPI, BMPX #### [facility] [employer] [address] [place] [address] Service Unit Operator [employer]: Brennan Daniel MD GFR,non Amer 46 mL/min Low >60 [facility] Comment on above: Performed By: #### F EBC, CDP, RETCT, PT, PATH, FERI, TROPI, BMPX #### [address] [address] Service Unit Operator [employer]: Brennan Daniel MD Glucose [Mass/Vol] 100 mg/dL High 70-99 [facility] Comment on above: Performed By: #### F EBC, CDP, RETCT, PT, PATH, FERI, TROPI, BMPX #### [address] [address] Service Unit Operator [employer]: Brennan Daniel MD Potassium [Moles/Vol] 5.0 mmol/L Normal 3.7-5.3 [facility] Comment on above: Performed By: #### F EBC, CDP, RETCT, PT, PATH, FERI, TROPI, BMPX #### [address] [address] [employer] Unit Operator [employer]: Brennan Daniel MD Sodium [Moles/Vol] 140 mmol/L Normal 135-144 [facility] Comment on above: Performed By: #### F EBC, CDP, RETCT, PT, PATH, FERI, TROPI, BMPX #### [address] [address] Service Unit Operator [employer]: Brennan Daniel MD Urea nitrogen [Mass/Vol] 16 mg/dL Normal 8-23 [facility] Comment on above: Performed By: #### F EBC, CDP, RETCT, PT, PATH, FERI, TROPI, BMPX #### [address] [address] [employer]: Brennan Daniel MD CBCon 03-21-2022 Erythrocyte distribution width (RBC) [Ratio] 14.0 % Normal 11.8-14.4 [facility] Comment on above: Performed By: #### F EBC, CDP, RETCT, PT, PATH, FERI, TROPI, BMPX #### [facility] [employer] [address] [place] [address] Service Unit Operator [employer]: Brennan Daniel MD Hematocrit (Bld) [Volume fraction] 31.3 % Low 40.7-50.3 [facility] Comment on above: Performed By: #### F EBC, CDP, RETCT, PT, PATH, FERI, TROPI, BMPX #### [address] [id number] Service Unit Operator [employer]: Brennan Daniel MD Hemoglobin (Bld) [Mass/Vol] 10.3 g/dL Low 13.0-17.0 [facility] Comment on above: Performed By: #### F EBC, CDP, RETCT, PT, PATH, FERI, TROPI, BMPX #### [address] [address] Service Unit Operator [employer]: Brennan Daniel MD MCH (RBC) [Entitic mass] 32.7 pg Normal 25.2-33.5 [facility] Comment on above: Performed By: #### F EBC, CDP, RETCT, PT, PATH, FERI, TROPI, BMPX #### [place] [address] Service Unit Operator [employer]: Brennan Daniel MD MCHC (RBC) [Mass/Vol] 32.9 g/dL Normal 28.4-34.8 [facility] Comment on above: Performed By: #### F EBC, CDP, RETCT, PT, PATH, FERI, TROPI, BMPX #### [address] [address] Service Unit Operator [employer]: Brennan Daniel MD MCV (RBC) [Entitic vol] 99.4 fL Normal 82.6-102.9 [facility] Comment on above: Performed By: #### F EBC, CDP, RETCT, PT, PATH, FERI, TROPI, BMPX #### [address] [phone] Service [employer] Operator [employer]: Brennan Daniel MD NRBC Automated 0.0 per 100 WBC Normal 0.0 [facility] Comment on above: Performed By: #### F EBC, CDP, RETCT, PT, PATH, FERI, TROPI, BMPX #### [address] [address] Service Unit Operator [employer]: Brennan Daniel MD Platelet mean volume (Bld) [Entitic vol] 10.1 fL Normal 8.1-13.5 [facility] Comment on above: Performed By: #### F EBC, CDP, RETCT, PT, PATH, FERI, TROPI, BMPX #### [place] [address] [employer]: Brennan Daniel MD Platelets (Bld) [#/Vol] 292 10*3/uL Normal 138-453 [facility] Comment on above: Performed By: #### F EBC, CDP, RETCT, PT, PATH, FERI, TROPI, BMPX #### [place] [address] Service [employer]: Brennan Daniel MD RBC (Bld) [#/Vol] 3.15 10*6/uL Low 4.21-5.77 [facility] Comment on above: Performed By: #### F EBC, CDP, RETCT, PT, PATH, FERI, TROPI, BMPX #### [place] [address] Service Unit Operator [employer]: Brennan Daniel MD WBC (Bld) [#/Vol] 8.0 10*3/uL Normal 3.5-11.3 [facility] Comment on above: Performed By: #### F EBC, CDP, RETCT, PT, PATH, FERI, TROPI, BMPX #### [address] [address] Service Unit Operator [employer]: Brennan Daniel MD Hematocrit (Bld) [Volume fraction] 31.3 % Low 40.7 - 50.3 % [facility] Hemoglobin (Bld) [Mass/Vol] 10.3 g/dL Low 13 - 17 g/dL [facility] Interpretation and review of laboratory results Abnormal [facility] MCH (RBC) [Entitic mass] 32.7 pg 25. 2 - 33.5 pg [facility] MCHC (RBC) [Mass/Vol] 32.9 g/dL 28.4 - 34.8 g/dL [facility] MCV (RBC) [Entitic vol] 99.4 fL 82.6 - 102.9 fL [facility] NRBC Automated 0.0 0.0 per 100 WBC [facility] Platelet distribution width (Bld) [Ratio] 14.0 % 11.8 - 14.4 % [facility] Platelet mean volume (Bld) [Entitic vol] 10.1 fL 8.1 - 13.5 fL [facility] Platelets (Bld) [#/Vol] 292 10*3/uL [facility] RBC (Bld) [#/Vol] 3.15 10*6/uL Low 4.21 - 5.7 7 m/uL [facility] WBC (Bld) [#/Vol] 8.0 10*3/uL [facility] ECHO Complete 2D W Doppler W Coloron 03-21-2022 Transthoracic Echocardiography Report (TTE) Patient Name NAOMI LOUIS Date of Study 03/21/2022 M Date of 1940 Gender Male Age 82 year(s) Race Room Number 2011 Height: 72 inch, 182.88 cm Corporate ID [id number] Weight: 200 pounds, 90.7 kg # Patient Acct [id number] BSA: 2.13 m^2 BMI: 27.13 kg/m^2 # MR # [id number] [employer] Machine Operator Malou Gruber Interpreting Physician Luis Enrique Jennings Fellow Referring Nurse Practitioner Interpreting Referring Physician Natanael COBB Type of Study TTE procedure:2D Echocardiogram, M-Mode, Doppler, Color Doppler. Procedure Date Date: 03/21/2022 Start: 09:40 AM Study Location: [facility] Technical Quality: Adequate visualization Indications:Atrial fibrillation. Comments:s/p Watchman History / Tech. Comments: Procedure explained to patient. Echo completed in Echo Lab. PMHx: s/p Watchman 20mm Coronary artery disease s/p stenting Atrial fibrillation Patient Status: Inpatient Height: 72 inches Weight: 200 pounds BSA: 2.13 m^2 BMI: 27.13 kg/m^2 Allergies - *Unlisted:(amoxicilla n statins). - *Unlisted:(Statins). CONCLUSIONS Summary Left ventricle is normal in size, normal wall thickness, global left ventricular systolic function is normal, estimated ejection fraction is 55%. Evidence of diastolic dysfunction. Aortic valve is trileaflet. No aortic stenosis. Trivial aortic insufficiency. Normal mitral valve structure. No mitral stenosis. Trivial mitral regurgitation. Tricuspid valve was not well visualized. Trivial tricuspid regurgitation. Estimated right ventricular systolic pressure is 23 mmHg. Signature FINDINGS Left Atrium Left atrium is normal in size. Interatrial septum is not well visualized. Left Ventricle Left ventricle is normal in size, normal wall thickness, global left ventricular systolic function is normal, estimated ejection fraction is 55%. Evidence of diastolic dysfunction. Right Atrium Right atrium is normal in size. Right Ventricle Normal right ventricular size and function. Mitral Valve Normal mitral valve structure. No mitral stenosis. Trivial mitral regurgitation. Aortic Valve Aortic valve is trileaflet. No aortic stenosis. Trivial aortic insufficiency. Tricuspid Valve Tricuspid valve was not well visualized. Trivial tricuspid regurgitation. Estimated right ventricular systolic pressure is 23 mmHg. Pulmonic Valve Pulmonic valve not well visualized but Doppler velocities are normal. Pericardial Effusion No significant pericardial effusion is seen. Miscellaneous Normal aortic root dimension. E/E' average = 10.45. IVC not well visualized. M-mode / 2D Measurements & Calculations: LVIDd:5.1 cm(3.7 - 5.6 cm) Diastolic Volume:133 ml IVSd:0.8 cm(0.6 - 1.1 cm) Aortic Root:3.7 cm(2.0 - 3.7 cm) LVPWd:0.7 cm(0.6 - 1.1 cm) LA Dimension: 3.8 cm(1.9 - 4.0 cm) LA volume/Index: 41.21 ml /19m^2 LVOT:2.4 cm RVDd:3.4 cm Mitral: Aortic Valve Area (P1/2-Time): 4.4 cm^2 Peak Velocity: 0.91 m/s Peak E-Wave: 0.63 m/s Mean Velocity: 0.58 m/s Peak A-Wave: 0.78 m/s Peak Gradient: 3.28 mmHg E/A Ratio: 0.81 Mean Gradient: 2 mmHg Peak Gradient: 1.57 mmHg Mean Gradient: 1 mmHg Deceleration Time: 199 msec Area (continuity): 5.94 cm^2 P1/2t: 50 msec AV VTI: 15.6 cm Area (continuity): 3.62 cm^2 Mean Velocity: 0.55 m/s Tricuspid: Pulmonic: Estimated RVSP: 23 mmHg Peak Velocity: 0.92 m/s Peak TR Velocity: 2.14 m/s Peak Gradient: 3.41 mmHg Peak TR Gradient: 18.3184 mmHg Estimated RA Pressure: 5 mmHg Estimated PASP: 23.32 mmHg Diastology / Tissue Doppler Septal Wall E' velocity:0.05 m/s Septal Wall E/E':11.5 Lateral Wall E' velocity:0.07 m/s Lateral Wall E/E':9.4 MHPN STV CPACS Luis Enrique Jennings, - 03/21/2022 Transthoracic Echocardiography Report (TTE) Patient Name NAOMI LOUIS Date of Study 03/21/2022 M Date of 1940 Gender Male Age 82 year(s) Race Room Number 2012 Height: 72 inch, 182.88 cm Corporate ID [id number] Weight: 200 pounds, 90.7 kg # Patient Acct [id number] BSA: 2.13 m^2 BMI: 27.13 kg/m^2 # MR # [id number] [employer] Operator Malou Gruber Interpreting Physician Luis Enrique Jennings Fellow Referring Nurse Practitioner Interpreting Referring Physician Naatnael COBB Type of Study TTE procedure:2D Echocardiogram, M-Mode, Doppler, Color Doppler. Procedure Date Date: 03/21/2022 Start: 09:40 AM Study Location: [facility] Technical Quality: Adequate visualization Indications:Atrial fibrillation. Comments:s/p Watchman History / Tech. Comments: Procedure explained to patient. Echo completed in Echo Lab. PMHx: s/p Watchman 20mm Coronary artery disease s/p stenting Atrial fibrillation Patient Status: Inpatient Height: 72 inches Weight: 200 pounds BSA: 2.13 m^2 BMI: 27.13 kg/m^2 Allergies - *Unlisted:(amoxicilla n statins). - *Unlisted:(Statins). CONCLUSIONS Summary Left ventricle is normal in size, normal wall thickness, global left ventricular systolic function is normal, estimated ejection fraction is 55%. Evidence of diastolic dysfunction. Aortic valve is trileaflet. No aortic stenosis. Trivial aortic insufficiency. Normal mitral valve structure. No mitral stenosis. Trivial mitral regurgitation. Tricuspid valve was not well visualized. Trivial tricuspid regurgitation. Estimated right ventricular systolic pressure is 23 mmHg. Signature - - - - FINDINGS Left Atrium Left atrium is normal in size. Interatrial septum is not well visualized. Left Ventricle Left ventricle is normal in size, normal wall thickness, global left ventricular systolic function is normal, estimated ejection fraction is 55%. Evidence of diastolic dysfunction. Right Atrium Right atrium is normal in size. Right Ventricle Normal right ventricular size and function. Mitral Valve Normal mitral valve structure. No mitral stenosis. Trivial mitral regurgitation. Aortic Valve Aortic valve is trileaflet. No aortic stenosis. Trivial aortic insufficiency. Tricuspid Valve Tricuspid valve was not well visualized. Trivial tricuspid regurgitation. Estimated right ventricular systolic pressure is 23 mmHg. Pulmonic Valve Pulmonic valve not well visualized but Doppler velocities are normal. Pericardial Effusion No significant pericardial effusion is seen. Miscellaneous Normal aortic root dimension. E/E' average = 10.45. IVC not well visualized. M-mode / 2D Measurements & Calculations: LVIDd:5.1 cm(3.7 - 5.6 cm) Diastolic Volume:133 ml IVSd:0.8 cm(0.6 - 1.1 cm) Aortic Root:3.7 cm(2.0 - 3.7 cm) LVPWd:0.7 cm(0.6 - 1.1 cm) LA Dimension: 3.8 cm(1.9 - 4.0 cm) LA volume/Index: 41.21 ml /19m^2 LVOT:2.4 cm RVDd:3.4 cm Mitral: Aortic Valve Area (P1/2-Time): 4.4 cm^2 Peak Velocity: 0.91 m/s Peak E-Wave: 0.63 m/s Mean Velocity: 0.58 m/s Peak A-Wave: 0.78 m/s Peak Gradient: 3.28 mmHg E/A Ratio: 0.81 Mean Gradient: 2 mmHg Peak Gradient: 1.57 mmHg Mean Gradient: 1 mmHg Deceleration Time: 199 msec Area (continuity): 5.94 cm^2 P1/2t: 50 msec AV VTI: 15.6 cm Area (continuity): 3.62 cm^2 Mean Velocity: 0.55 m/s Tricuspid: Pulmonic: Estimated RVSP: 23 mmHg Peak Velocity: 0.92 m/s Peak TR Velocity: 2.14 m/s Peak Gradient: 3.41 mmHg Peak TR Gradient: 18.3184 mmHg Estimated RA Pressure: 5 mmHg Estimated PASP: 23.32 mmHg Diastology / Tissue Doppler Septal Wall E' velocity:0.05 m/s Septal Wall E/E':11.5 Lateral Wall E' velocity:0.07 m/s Lateral Wall E/E':9.4 [employer] Phone: [employer] Phone: Electrocardiogram, 12-leadOr dered By: Janet Valladares on 03-21-2022 Atrial Rate 82 BPM [email or web address] Work Phone: [phone] P [place] 28 degrees [facility] [employer] [email or web address]. Work Phone: [phone] P-R Interval 158 ms [email or web address] Work Phone: [phone] Q-T Interval 382 ms [employer] [employer] Work Phone: [phone] QRS Duration 86 ms [employer] [email or web address] Work Phone: [phone] QTc Calculation (Bazett) 446 ms [employer] [email or web address] Work Phone: [phone] R [place] -24 degrees [employer] [employer] Work Phone: [phone] T [place] 8 degrees [facility] [employer] Work Phone: [phone] Ventricular Rate 82 BPM [facility] [employer] Work Phone: [phone] [facility] [employer] Work Phone: [phone] Electrocardiogram, 12-leadon 03-21-2022 Normal sinus rhythm Cannot rule out Inferior infarct (cited on or before 23-MAY-2021) Abnormal ECG When compared with ECG of 28-JAN-2022 09:25, T wave inversion no longer evident in Lateral leads [facility] Janet Guerrier MD - 03/21/2022 Normal sinus rhythm Cannot rule out Inferior infarct (cited on or before 23-MAY-2021) Abnormal ECG When compared with ECG of 28-JAN-2022 09:25, T wave inversion no longer evident in Lateral leads [employer] Work Phone: Heart Transesophagealon 0 03-21-2022 Transesophageal Echocardiography Report (JOEY) Patient Name NAOMI LOUIS Date of Study 03/20/2022 M Date of 1940 Gender Male Age 82 year(s) Race Room Number 2011 Height: 72 inch, 182.88 cm Corporate ID [id number] Weight: 200 pounds, 90.7 kg # Patient Acct [id number] BSA: 2.13 m^2 BMI: 27.13 kg/m^2 # MR # [id number] [employer] Operator Jade Spencer Interpreting Physician Luis Enrique Jennings Fellow Referring Nurse Practitioner Interpreting Referring Physician Natanael COBB Type of Study JOEY procedure:2D echocardiogram, Doppler , Color Doppler. Procedure Date Date: 03/20/2022 Start: 01:01 PM Study Location: [facility] History / Tech. Comments: Atrial Fib Watchman Implant Patient Status: Inpatient Height: 72 inches Weight: 200 pounds BSA: 2.13 m^2 BMI: 27.13 kg/m^2 JOEY Performed By: Interpreting Physician Type of Anesthesia: General anesthesia Allergies - *Unlisted:(amoxicilla n statins). - *Unlisted:(Statins). CONCLUSIONS Summary Successful Interventional /Structural JOEY for Watchman deployment. Watchman well seated in good position No evidence of pericardial effusion . See below for full details of Watchman Deployment, sizing, compression, etc. Signature FINDINGS Left Atrium Left atrial appendage is free of clots. NIKOLE morphology - broccoli No spontaneous echo contrast smoke seen in the left atrium and the left atrial appendage. Bowing intra-atrial septum from left to right. Pre procedure measurement of the NIKOLE 0 degree -11 mm width x 17.3 mm length 45 degree - 10.4 mm width x 16.5 mm length 90 degree - 11 mm x 17.2 mm length 135 degree - 9 mm width x 15 mm length Post Deployment Watchman Compression Size 0 degree 17 mm Compression 15 % 45 degree 17 mm - Compression 11.5-12 % 90 degree 17.5 mm Compression 12% 135 degree 17 mm Compression 15 % Post Deployment Leak Check 0 degree -none 45 degree - none 90 degree - none 135 degree - none Left Ventricle Left ventricle is normal in size with normal systolic function globally. Estimated ejection fraction is 55% Right Atrium Right atrium is normal in size. Right Ventricle Normal right ventricular size and function. Mitral Valve Mitral valve structure is normal. Mild mitral regurgitation. Aortic Valve Aortic valve is trileaflet. Mild aortic insufficiency. Tricuspid Valve Tricuspid valve structure is normal. Mild tricuspid regurgitation. Pulmonic Valve The pulmonic valve is normal in structure. Pericardial Effusion No evidence of pericardial effusion pre and post procedure. Epicardial fat pad is noted. MHPN STV CPACS Luis Enrique Jennings, - 03/21/2022 Transesophageal Echocardiography Report (JOEY) Patient Name NAOMI LOUIS Date of Study 03/20/2022 M Date of 1940 Gender Male Age 82 year(s) Race Room Number 2011 Height: 72 inch, 182.88 cm Corporate ID [id number] Weight: 200 pounds, 90.7 kg # Patient Acct [id number] BSA: 2.13 m^2 BMI: 27.13 kg/m^2 # MR # [id number] [employer] Operator Jade Spencer Interpreting Physician Luis Enrique Jennings Fellow Referring Nurse Practitioner Interpreting Referring Physician Natanael COBB Type of Study JOEY procedure:2D echocardiogram, Doppler , Color Doppler. Procedure Date Date: 03/20/2022 Start: 01:01 PM Study Location: [facility] History / Tech. Comments: Atrial Fib Watchman Implant Patient Status: Inpatient Height: 72 inches Weight: 200 pounds BSA: 2.13 m^2 BMI: 27.13 kg/m^2 JOEY Performed By: Interpreting Physician Type of Anesthesia: General anesthesia Allergies - *Unlisted:(amoxicilla n statins). - *Unlisted:(Statins). CONCLUSIONS Summary Successful Interventional /Structural JOEY for Watchman deployment. Watchman well seated in good position No evidence of pericardial effusion . See below for full details of Watchman Deployment, sizing, compression, etc. Signature - - - - FINDINGS Left Atrium Left atrial appendage is free of clots. NIKOLE morphology - broccoli No spontaneous echo contrast smoke seen in the left atrium and the left atrial appendage. Bowing intra-atrial septum from left to right. Pre procedure measurement of the NIKOLE 0 degree -11 mm width x 17.3 mm length 45 degree - 10.4 mm width x 16.5 mm length 90 degree - 11 mm x 17.2 mm length 135 degree - 9 mm width x 15 mm length Post Deployment Watchman Compression Size 0 degree 17 mm Compression 15 % 45 degree 17 mm - Compression 11.5-12 % 90 degree 17.5 mm Compression 12% 135 degree 17 mm Compression 15 % Post Deployment Leak Check 0 degree -none 45 degree - none 90 degree - none 135 degree - none Left Ventricle Left ventricle is normal in size with normal systolic function globally. Estimated ejection fraction is 55% Right Atrium Right atrium is normal in size. Right Ventricle Normal right ventricular size and function. Mitral Valve Mitral valve structure is normal. Mild mitral regurgitation. Aortic Valve Aortic valve is trileaflet. Mild aortic insufficiency. Tricuspid Valve Tricuspid valve structure is normal. Mild tricuspid regurgitation. Pulmonic Valve The pulmonic valve is normal in structure. Pericardial Effusion No evidence of pericardial effusion pre and post procedure. Epicardial fat pad is noted. [employer] Work Phone: [place] Heart TransesophagealOrde red By: Luis Enrique Jennings on 03-21-2022 [employer] Work Phone: Activated clotting timeon Activated Clotting Time 228 High B ON [employer] Interpretation and review of laboratory results Abnormal [facility] CHLORIDE (POC)on 03-20-2022 Chloride [Moles/Vol] 107 mmol/L 98 - 10 7 mmol/L [employer] Creatinine W/GFR Point of Ca reon 03-20-2022 Creatinine [Mass/Vol] 1.24 mg/dL High 0.51 - 1.19 mg/dL [employer] GFR Non- 56 mL/min Low 60 - PINF mL/min [employer] GFR/1.73 sq M.predicted MDRD (S/P/Bld) [Vol rate/Area] mL/min 60 - PINF mL/min [facility] GFR/1.73 sq M.predicted MDRD (S/P/Bld) [Vol rate/Area] [facility] Comment on above: Average GFR for 70 o r more years old: 75 mL/min/1.73sq m Chronic Kidney Disease: <60 mL/min/1.73sq m Kidney failure: <15 mL/min/1.73sq m eGFR calculated using average adult body mass. Additional eGFR calculator available at: http://www.MXP4/multiple_crcl_2012.htm Interpretation and review of laboratory results Abnormal [facility] Hemoglobin and hematocrit, b loodon 03-20-2022 Hematocrit (Bld) [Volume fraction] 46 % 41 - 53 % [facility] Hemoglobin (Bld) [Mass/Vol] 15.7 g/dL 13.5 - 17.5 g/dL [facility] No Panel Informationon 03-20 [facility] POCT Glucoseon 03-20-2022 Glucose [Mass/Vol] 86 mg/dL 74 - 100 mg/dL [facility] POCT urea (BUN)on 03-20-2022 Urea nitrogen [Mass/Vol] 17 mg/dL 8 - 26 mg/dL [facility] POTASSIUM (POC)on 03-20-2022 Potassium [Moles/Vol] 4.1 mmol/L 3.5 - 4.5 mmol/L [facility] SODIUM (POC)on 03-20-2022 Sodium [Moles/Vol] 142 mmol/L 138 - 146 mmol/L [facility] Type + Screenon 03-19-2022 Type + Screen Sample Expiration 03/22/2022,2359 Arm Band Number [id number] ABO/Rh(D) A NEGATIVE Antibody Screen POSITIVE Antibody Ident Panagglutinin due to daratumumab treatment Antibody identification performed by [facility], [address] [place] [address] [place] [address] Antigen Type,Patient NEGATIVE for C Antigen Negative for E Antigen Negative for Vanesa Antigen Negative for Lowery(A) Antigen Positive for c Antigen Positive for e Antigen Positive for Ag(A) Antigen Positive for Ag(B) Antigen Positive for Lowery(B) Antigen Positive for s Antigen Positive for S Antigen ARJUN, Polyspecific NEGATIVE Unit Number [id number] Blood Component Type Leukocyte Reduced Red Cell Unit Division 00 Status of Unit REL FROM ALLOC Transfusion Status OK TO TRANSFUSE Crossmatch Result COMPATIBLE Unit Number [id number] Blood Component Type Leukocyte Reduced Red Cell Unit Division 00 Status of Unit REL FROM ALLOC Transfusion Status OK TO TRANSFUSE Crossmatch Result COMPATIBLE Unit Number [id number] Blood Component Type Leukocyte Reduced Red Cell Unit Division 00 Status of Unit REL FROM ALLOC Transfusion Status OK TO TRANSFUSE Crossmatch Result COMPATIBLE Unit Number [id number] Blood Component Type Leukocyte Reduced Red Cell Unit Division 00 Status of Unit REL FROM ALLOC Transfusion Status OK TO TRANSFUSE Crossmatch Result COMPATIBLE Normal [facility] Comment on above: Performed By: #### F EBC, CDP, RETCT, PT, PATH, FERI, TROPI, BMPX #### [facility] [place] [address] Service Unit Operator Oil Well: Brennan Daniel MD Basic Metabolic Panelon 08-0 Anion gap [Moles/Vol] 11 mmol/L 9 - 17 mmol/L [facility] [email or web address]. Calcium [Mass/Vol] 9.0 mg/dL 8.6 - 10. 4 mg/dL [facility] Chloride [Moles/Vol] 104 mmol/L 98 - 10 7 mmol/L [facility] CO2 [Moles/Vol] 24 mmol/L 20 - 31 mmol/L [facility] Creatinine [Mass/Vol] 1.31 mg/dL High 0.7 - 1.2 mg/dL [email or web address]. GFR >60 60 - PI NF mL/min [facility] Beam. GFR Non- 53 mL/min Low 60 - PINF mL/min [facility] Beam. Glucose [Mass/Vol] 111 mg/dL High 70 - 99 mg/dL [facility] Interpretation and review of laboratory results Abnormal [facility] [email or web address]. Potassium [Moles/Vol] 4.5 mmol/L 3.7 - 5.3 mmol/L [facility] Sodium [Moles/Vol] 139 mmol/L 135 - 144 mmol/L [facility] Urea nitrogen (BldV) [Mass/Vol] 14 mg/dL 8 - 23 mg/dL [facility] Urea nitrogen/Creatinine (Bld) [Mass ratio] 11 9 - 20 [facility] CBC with Auto Differentialon 01-30-2022 Absolute Eos # 0.09 [facility] Absolute Immature Granulocyte 0.00 [facility] Absolute Lymph # 1.41 [facility] Absolute Tate # 1.22 High [facility] RS [facility] Basophils (Bld) [#/Vol] 0.00 10*3/uL [facility] Basophils/100 WBC (Bld) 0 % 0 - 2 % [facility] Eosinophils/100 WBC (Bld) 1 % 1 - 4 % [facility] Hematocrit (Bld) [Volume fraction] 32.0 % Low 40.7 - 50.3 % [facility] Hemoglobin (Bld) [Mass/Vol] 9.9 g/dL Low 13 - 17 g/dL [facility] Immature granulocytes/100 WBC (Bld) 0 % 0 [facility] Interpretation and review of laboratory results Abnormal [facility] Lymphocytes/100 WBC (Bld) 15 % Low 24 - 43 % [facility] MCH (RBC) [Entitic mass] 33.3 pg 25. 2 - 33.5 pg [facility] MCHC (RBC) [Mass/Vol] 30.9 g/dL 28.4 - 34.8 g/dL [facility] MCV (RBC) [Entitic vol] 107.7 fL High 82.6 - 102.9 fL [facility] Monocytes/100 WBC (Bld) 13 % High 3 - 12 % [facility] Morphology Aashish (Bld) [Interp] ANISOCYTOSIS PRESENT [facility] Morphology Aashish (Bld) [Interp] Platelet clumps present, count appears adequate. [facility] NRBC Automated 0.0 0.0 per 100 WBC [facility] Platelet distribution width (Bld) [Ratio] 16.5 % High 11.8 - 14.4 % [facility] Platelet mean volume (Bld) [Entitic vol] 10.0 fL 8.1 - 13.5 fL [facility] Platelets (Bld) [#/Vol] 259 10*3/uL [facility] RBC (Bld) [#/Vol] 2.97 10*6/uL Low 4.21 - 5.7 7 m/uL [facility] Segmented neutrophils/100 WBC (Bld) 71 % High 36 - 65 % [facility] Segs Absolute 6.68 [facility] WBC (Bld) [#/Vol] 9.4 10*3/uL [facility] Laboratory - Chemistry and C hemistry - challengeon 01-30-2022 GFR/1.73 sq M.predicted MDRD (S/P/Bld) [Vol rate/Area] [facility] Comment on above: Average GFR for 70 o r more years old: 75 mL/min/1.73sq m Chronic Kidney Disease: <60 mL/min/1.73sq m Kidney failure: <15 mL/min/1.73sq m eGFR calculated using average adult body mass. Additional eGFR calculator available at: http://www.MXP4/Hashable_crcl_2011.htm Stage 1: Some kidney damage normal GFR Stage 2: Mild kidney damage GFR 60-89 Stage 3: Moderate kidney damage GFR 30-59 Stage 4: Severe kidney damage GFR 15-29 Stage 5: Severe kidney damage GFR <15 ESRD - chronic treatment by dialysis or transplant Basic Metab w/rfx MGon 01-28 (cont.) Normal [facility] Comment on above: Result Comment: Aver age GFR for 70 or more years old: 75 mL/min/1.73sq m Chronic Kidney Disease: <60 mL/min/1.73sq m Kidney failure: <15 mL/min/1.73sq m eGFR calculated using average adult body mass. Additional eGFR calculator available at: http://www.MXP4/multiple_crcl_2012.htm Performed By: #### F EBC, CDP, RETCT, PT, PATH, FERI, TROPI, BMPX #### [facility] [employer] [address] [place] [id number] Service Unit Operator Oil Well: Brennan Daniel MD Anion gap [Moles/Vol] 9 mmol/L Normal 9-17 [facility] Comment on above: Performed By: #### F EBC, CDP, RETCT, PT, PATH, FERI, TROPI, BMPX #### [address] [address] Service Unit Operator Oil Well: Brennan Daniel MD Calcium [Mass/Vol] 8.7 mg/dL Normal 8.6-10.4 [facility] Comment on above: Performed By: #### F EBC, CDP, RETCT, PT, PATH, FERI, TROPI, BMPX #### [facility] [employer] [address] [place] [phone] Service Unit Operator Oil Well: Brennan Daniel MD Chloride [Moles/Vol] 108 mmol/L High 98-107 [facility] Comment on above: Performed By: #### F EBC, CDP, RETCT, PT, PATH, FERI, TROPI, BMPX #### [facility] [employer] [address] [place] [address] Service Unit Operator Oil Well: Brennan Daniel MD CO2 [Moles/Vol] 22 mmol/L Normal 20-31 [facility] Comment on above: Performed By: #### F EBC, CDP, RETCT, PT, PATH, FERI, TROPI, BMPX #### [facility] [employer] [address] [place] [address] Service Unit Operator Oil Well: Brennan Daniel MD Creatinine [Mass/Vol] 1.22 mg/dL High 0.70-1.20 [facility] Comment on above: Performed By: #### F EBC, CDP, RETCT, PT, PATH, FERI, TROPI, BMPX #### [facility] [employer] [address] [place] [address] Service Unit Operator Oil Well: Brennan Daniel MD GFR, Amer >60 Normal >60 [facility] Comment on above: Performed By: #### F EBC, CDP, RETCT, PT, PATH, FERI, TROPI, BMPX #### [facility] [employer] [address] [place] [address] Service Unit Operator Oil Well: Brennan Daniel MD GFR,non Amer 57 mL/min Low >60 [facility] Comment on above: Performed By: #### F EBC, CDP, RETCT, PT, PATH, FERI, TROPI, BMPX #### [facility] [employer] [address] [place] [address] Service Unit Operator Oil Well: Brennan Daniel MD Glucose [Mass/Vol] 88 mg/dL Normal 70-99 [facility] Comment on above: Performed By: #### F EBC, CDP, RETCT, PT, PATH, FERI, TROPI, BMPX #### [facility] [employer] [address] [place] [address] Service Unit Operator Oil Well: Brennan Daniel MD Potassium [Moles/Vol] 4.1 mmol/L Normal 3.7-5.3 [facility] Comment on above: Performed By: #### F EBC, CDP, RETCT, PT, PATH, FERI, TROPI, BMPX #### [facility] [employer] [address] [place] [phone] Service Unit Operator Oil Well: Brennan Daniel MD Sodium [Moles/Vol] 139 mmol/L Normal 135-144 [facility] Comment on above: Performed By: #### F EBC, CDP, RETCT, PT, PATH, FERI, TROPI, BMPX #### [facility] [employer] [address] [place] [address] Service Unit Operator Oil Well: Brennan Daniel MD Urea nitrogen [Mass/Vol] 14 mg/dL Normal 8-23 [facility] Comment on above: Performed By: #### F EBC, CDP, RETCT, PT, PATH, FERI, TROPI, BMPX #### [facility] [address] [place] [address] Service Unit Operator Oil Well: Brennan Daniel MD Basic Metabolic Panel w/ Ref master to MGon 01-28-2022 Anion gap [Moles/Vol] 9 mmol/L 9 - 17 mmol/L [facility] Calcium [Mass/Vol] 8.7 mg/dL 8.6 - 10. 4 mg/dL [email or web address] Beam. Chloride [Moles/Vol] 108 mmol/L High 98 - 10 7 mmol/L [facility] CO2 [Moles/Vol] 22 mmol/L 20 - 31 mmol/L [facility] Creatinine [Mass/Vol] 1.22 mg/dL High 0.7 - 1.2 mg/dL [facility] GFR >60 60 - PI NF mL/min [facility] GFR Non- 57 mL/min Low 60 - PINF mL/min [facility] GFR/1.73 sq M.predicted MDRD (S/P/Bld) [Vol rate/Area] [facility] Comment on above: Average GFR for 70 o r more years old: 75 mL/min/1.73sq m Chronic Kidney Disease: <60 mL/min/1.73sq m Kidney failure: <15 mL/min/1.73sq m eGFR calculated using average adult body mass. Additional eGFR calculator available at: http://www.Avnera.Changelight/multiple_crcl_2011.htm Glucose [Mass/Vol] 88 mg/dL 70 - 99 mg/dL [facility] Interpretation and review of laboratory results Abnormal [facility] Potassium [Moles/Vol] 4.1 mmol/L 3.7 - 5.3 mmol/L [facility] Sodium [Moles/Vol] 139 mmol/L 135 - 144 mmol/L [facility] Urea nitrogen (BldV) [Mass/Vol] 14 mg/dL 8 - 23 mg/dL [email or web address].comIREDELL [facility]365 [employer] [facility] SPECIMEN REJECTIONon 022 Ordered Test CDP [facility] Reason for Rejection Unable to perform testing: Specimen quantity not sufficient. [facility] Specimen source Nom (Unsp spec) .BLOOD [facility] Specimen Rejectionon 022 Reason for rejection Unable to perform testing: Specimen quantity not sufficient. [facility] Comment on above: Performed By: #### F EBC, CDP, RETCT, PT, PATH, FERI, TROPI, BMPX #### [facility] [employer] [address] [place] [address] [phone] Service Unit Operator Oil Well: Brennan Daniel MD Source of sample .BLOOD [facility] Comment on above: Performed By: #### F EBC, CDP, RETCT, PT, PATH, FERI, TROPI, BMPX #### [address] [phone] Service Unit Operator Oil Well: Brennan Daniel MD Test ordered CDP [facility] Comment on above: Performed By: #### F EBC, CDP, RETCT, PT, PATH, FERI, TROPI, BMPX #### [address] [phone] Service Unit Operator Oil Well: Brennan Daniel MD Basic Metab w/rfx MGon 01-27 (cont.) [facility] Comment on above: Result Comment: Aver age GFR for 70 or more years old: 75 mL/min/1.73sq m Chronic Kidney Disease: <60 mL/min/1.73sq m Kidney failure: <15 mL/min/1.73sq m eGFR calculated using average adult body mass. Additional eGFR calculator available at: http://www.Avnera.com/multiple_crcl_2012.htm Performed By: #### F EBC, CDP, RETCT, PT, PATH, FERI, TROPI, BMPX #### [facility] [employer] [address] [place] [address] [phone] Service Unit Operator Oil Well: Brennan Daniel MD Anion gap [Moles/Vol] 9 mmol/L [place] 9-17 [facility] Comment on above: Performed By: #### F EBC, CDP, RETCT, PT, PATH, FERI, TROPI, BMPX #### [facility] [address] [place] [phone] Service Unit Operator Oil Well: Brennan Daniel MD Calcium [Mass/Vol] 8.3 mg/dL Low 8.6-10.4 [facility] Comment on above: Performed By: #### F EBC, CDP, RETCT, PT, PATH, FERI, TROPI, BMPX #### [facility] [address] [place] [phone] Service Unit Operator Oil Well: Brennan Daniel MD Chloride [Moles/Vol] 112 mmol/L High 98-107 [facility] Comment on above: Performed By: #### F EBC, CDP, RETCT, PT, PATH, FERI, TROPI, BMPX #### [facility] [address] [place] [address] Service Unit Operator Oil Well: Brennan Daniel MD CO2 [Moles/Vol] 23 mmol/L Normal 20-31 [facility] Comment on above: Performed By: #### F EBC, CDP, RETCT, PT, PATH, FERI, TROPI, BMPX #### [facility] [address] [place] [address] Service Unit Operator Oil Well: Brennan Daniel MD Creatinine [Mass/Vol] 1.18 mg/dL Normal 0.70-1.20 [facility] Comment on above: Performed By: #### F EBC, CDP, RETCT, PT, PATH, FERI, TROPI, BMPX #### [facility] [address] [place] [address] Service Unit Operator Oil Well: Brennan Daniel MD GFR, Amer >60 Normal >60 [facility] Comment on above: Performed By: #### F EBC, CDP, RETCT, PT, PATH, FERI, TROPI, BMPX #### [address] [address] Service Unit Operator Oil Well: Brennan Daniel MD GFR,non Amer 60 mL/min Low >60 [facility] Comment on above: Performed By: #### F EBC, CDP, RETCT, PT, PATH, FERI, TROPI, BMPX #### [address] [address] Service Unit Operator Oil Well: Brennan Daniel MD Glucose [Mass/Vol] 92 mg/dL Normal 70-99 [facility] Comment on above: Performed By: #### F EBC, CDP, RETCT, PT, PATH, FERI, TROPI, BMPX #### [address] [address] Service Unit Operator Oil Well: Brennan Daniel MD Potassium [Moles/Vol] 4.3 mmol/L Normal 3.7-5.3 [facility] Comment on above: Performed By: #### F EBC, CDP, RETCT, PT, PATH, FERI, TROPI, BMPX #### [address] [address] Service Unit Operator Oil Well: Brennan Daniel MD Sodium [Moles/Vol] 144 mmol/L Normal 135-144 [facility] Comment on above: Performed By: #### F EBC, CDP, RETCT, PT, PATH, FERI, TROPI, BMPX #### [address] [address] Service Unit Operator Oil Well: Brennan Daniel MD Urea nitrogen [Mass/Vol] 13 mg/dL Normal 8-23 [facility] Comment on above: Performed By: #### F EBC, CDP, RETCT, PT, PATH, FERI, TROPI, BMPX #### [address] [address] Service Unit Operator Oil Well: Brennan Daniel MD Basic Metabolic Panel w/ Ref master to MGon 01-27-2022 Anion gap [Moles/Vol] 9 mmol/L 9 - 17 mmol/L [facility] Calcium [Mass/Vol] 8.3 mg/dL Low 8.6 - 10. 4 mg/dL [facility] Chloride [Moles/Vol] 112 mmol/L High 98 - 10 7 mmol/L [facility] CO2 [Moles/Vol] 23 mmol/L 20 - 31 mmol/L [facility] Creatinine [Mass/Vol] 1.18 mg/dL 0.7 - 1.2 mg/dL [facility] GFR >60 60 - PI NF mL/min [facility] GFR Non- 60 mL/min Low 60 - PINF mL/min [facility] GFR/1.73 sq M.predicted MDRD (S/P/Bld) [Vol rate/Area] [facility] Comment on above: Average GFR for 70 o r more years old: 75 mL/min/1.73sq m Chronic Kidney Disease: <60 mL/min/1.73sq m Kidney failure: <15 mL/min/1.73sq m eGFR calculated using average adult body mass. Additional eGFR calculator available at: http://[email or web address]/multiple_crcl_2011.htm Glucose [Mass/Vol] 92 mg/dL 70 - 99 mg/dL [facility] Interpretation and review of laboratory results Abnormal [facility] Potassium [Moles/Vol] 4.3 mmol/L 3.7 - 5.3 mmol/L [facility] Sodium [Moles/Vol] 144 mmol/L 135 - 144 mmol/L [facility] Urea nitrogen (BldV) [Mass/Vol] 13 mg/dL 8 - 23 mg/dL [facility] CBC with Auto Differentialon 01-27-2022 Absolute Eos # 0.07 [facility] Absolute Immature Granulocyte 0.06 [facility] Absolute Lymph # 1.44 [facility] Absolute Tate # 1.39 High [facility] Basophils (Bld) [#/Vol] 0.03 10*3/uL [facility] Basophils/100 WBC (Bld) 0 % 0 - 2 % [facility] Eosinophils/100 WBC (Bld) 1 % 1 - 4 % [facility] Hematocrit (Bld) [Volume fraction] 27.0 % Low 40.7 - 50.3 % [facility] Hemoglobin (Bld) [Mass/Vol] 9.0 g/dL Low 13 - 17 g/dL [facility] Immature granulocytes/100 WBC (Bld) 1 % High 0 [facility] Interpretation and review of laboratory results Abnormal [facility] Lymphocytes/100 WBC (Bld) 13 % Low 24 - 43 % [facility] MCH (RBC) [Entitic mass] 35.0 pg High 25. 2 - 33.5 pg [facility] MCHC (RBC) [Mass/Vol] 33.3 g/dL 28.4 - 34.8 g/dL [facility] MCV (RBC) [Entitic vol] 105.1 fL High 82.6 - 102.9 fL [facility] Monocytes/100 WBC (Bld) 13 % High 3 - 12 % B [facility] NRBC Automated 0.0 0.0 per 100 WBC [facility] Platelet distribution width (Bld) [Ratio] 17.2 % High 11.8 - 14.4 % [facility] Platelet mean volume (Bld) [Entitic vol] 10.8 fL 8.1 - 13.5 fL [facility] Platelets (Bld) [#/Vol] 200 10*3/uL [facility] RBC (Bld) [#/Vol] 2.57 10*6/uL Low 4.21 - 5.7 7 m/uL [facility] RBC (Bld) [#/Vol] ANISOCYTOSIS PRESENT [facility] Comment on above: MACROCYTOSIS PRESENT Segmented neutrophils/100 WBC (Bld) 72 % High 36 - 65 % [facility] Segs Absolute 7.74 [facility] WBC (Bld) [#/Vol] 10.7 10*3/uL [facility] CBC with Diffon 01-27-2022 Abs. Basophil 0.03 k/uL Normal 0.00-0.20 [facility] Comment on above: Performed By: #### F EBC, CDP, RETCT, PT, PATH, FERI, TROPI, BMPX #### [address] [address] Service Unit Operator Oil Well: Brennan Daniel MD Abs.Imm.Granulocyte 0.06 k/uL Normal 0.00-0.30 [facility] Comment on above: Performed By: #### F EBC, CDP, RETCT, PT, PATH, FERI, TROPI, BMPX #### [place] [address] Service Unit Operator Oil Well: Brennan Daniel MD Abs.Neutrophil (Seg) 7.74 k/uL Normal 1.50-8.10 [facility] Comment on above: Performed By: #### F EBC, CDP, RETCT, PT, PATH, FERI, TROPI, BMPX #### [place] [address] Service Unit Operator Oil Well: Brennan Daniel MD Basophils/100 WBC (Bld) 0 % Normal 0-2 [facility] Comment on above: Performed By: #### F EBC, CDP, RETCT, PT, PATH, FERI, TROPI, BMPX #### [place] [address] Service Unit Operator Oil Well: Brennan Daniel MD Eosinophils (Bld) [#/Vol] 0.07 10*3/uL Normal 0.00-0.44 [facility] Comment on above: Performed By: #### F EBC, CDP, RETCT, PT, PATH, FERI, TROPI, BMPX #### [address] [address] Service Unit Operator Oil Well: Brennan Daniel MD Eosinophils/100 WBC (Bld) 1 % Normal 1-4 [facility] Comment on above: Performed By: #### F EBC, CDP, RETCT, PT, PATH, FERI, TROPI, BMPX #### [place] [address] Service Unit Operator Oil Well: Brennan Daniel MD Erythrocyte distribution width (RBC) [Ratio] 17.2 % High 11.8-14.4 [facility] Comment on above: Performed By: #### F EBC, CDP, RETCT, PT, PATH, FERI, TROPI, BMPX #### [place] [address] Service Unit Operator Oil Well: Brennan Daniel MD Hematocrit (Bld) [Volume fraction] 27.0 % Low 40.7-50.3 [facility] Comment on above: Performed By: #### F EBC, CDP, RETCT, PT, PATH, FERI, TROPI, BMPX #### [place] [address] Service Unit Operator Oil Well: Brennan Daniel MD Hemoglobin (Bld) [Mass/Vol] 9.0 g/dL Low 13.0-17.0 [facility] Comment on above: Performed By: #### F EBC, CDP, RETCT, PT, PATH, FERI, TROPI, BMPX #### [place] [address] Service Unit Operator Oil Well: Brennan Daniel MD Immature granulocytes/100 WBC (Bld) 1 % High 0 [facility] Comment on above: Performed By: #### F EBC, CDP, RETCT, PT, PATH, FERI, TROPI, BMPX #### [place] [address] Service Unit Operator Oil Well: Brennan Daniel MD Lymphocytes (Bld) [#/Vol] 1.44 10*3/uL Normal 1.10-3.70 [facility] Comment on above: Performed By: #### F EBC, CDP, RETCT, PT, PATH, FERI, TROPI, BMPX #### [address] [phone] Service Unit Operator Oil Well: Brennan Daniel MD Lymphocytes/100 WBC (Bld) 13 % Low 24-43 [facility] Comment on above: Performed By: #### F EBC, CDP, RETCT, PT, PATH, FERI, TROPI, BMPX #### [address] [address] Service Unit Operator Oil Well: Brennan Daniel MD MCH (RBC) [Entitic mass] 35.0 pg High 25.2-33.5 [facility] Comment on above: Performed By: #### F EBC, CDP, RETCT, PT, PATH, FERI, TROPI, BMPX #### [place] [address] Service Unit Operator Oil Well: Brennan Daniel MD MCHC (RBC) [Mass/Vol] 33.3 g/dL Normal 28.4-34.8 [facility] Comment on above: Performed By: #### F EBC, CDP, RETCT, PT, PATH, FERI, TROPI, BMPX #### [address] [phone] Service Unit Operator Oil Well: Brennan Daniel MD MCV (RBC) [Entitic vol] 105.1 fL High 82.6-102.9 M [facility] Comment on above: Performed By: #### F EBC, CDP, RETCT, PT, PATH, FERI, TROPI, BMPX #### [place] [address] Service Unit Operator Oil Well: Brennan Daniel MD Monocytes (Bld) [#/Vol] 1.39 10*3/uL High 0.10-1.20 [facility] Comment on above: Performed By: #### F EBC, CDP, RETCT, PT, PATH, FERI, TROPI, BMPX #### [address] [address] Service Unit Operator Oil Well: Brennan Daniel MD Monocytes/100 WBC (Bld) 13 % High 3-12 M [facility] Comment on above: Performed By: #### F EBC, CDP, RETCT, PT, PATH, FERI, TROPI, BMPX #### [address] [address] Service Unit Operator Oil Well: Brennan Daniel MD Neutrophil (Seg) 72 % High 36-65 [facility] Comment on above: Performed By: #### F EBC, CDP, RETCT, PT, PATH, FERI, TROPI, BMPX #### [address] [address] Service Unit Operator Oil Well: Brennan Daniel MD NRBC Automated 0.0 per 100 WBC Normal 0.0 [facility] Comment on above: Performed By: #### F EBC, CDP, RETCT, PT, PATH, FERI, TROPI, BMPX #### [address] [address] Service Unit Operator Oil Well: Brennan Daniel MD Platelet mean volume (Bld) [Entitic vol] 10.8 fL Normal 8.1-13.5 [facility] Comment on above: Performed By: #### F EBC, CDP, RETCT, PT, PATH, FERI, TROPI, BMPX #### [address] [address] Service Unit Operator Oil Well: Brennan Daniel MD Platelets (Bld) [#/Vol] 200 10*3/uL Normal 138-453 [facility] Comment on above: Performed By: #### F EBC, CDP, RETCT, PT, PATH, FERI, TROPI, BMPX #### [address] [address] Service Unit Operator Oil Well: Brennan Daniel MD RBC (Bld) [#/Vol] 2.57 10*6/uL Low 4.21-5.77 [facility] Comment on above: Performed By: #### F EBC, CDP, RETCT, PT, PATH, FERI, TROPI, BMPX #### [address] [address] Service Unit Operator Oil Well: Brennan Daniel MD RBC morphology finding Nom (Bld) ANISOCYTOSIS PRESENT Normal [facility] Comment on above: Result Comment: MACR OCYTOSIS PRESENT Performed By: #### F EBC, CDP, RETCT, PT, PATH, FERI, TROPI, BMPX #### [address] [address] Service Unit Operator Oil Well: Brennan Daniel MD WBC (Bld) [#/Vol] 10.7 10*3/uL Normal 3.5-11.3 [facility] Comment on above: Performed By: #### F EBC, CDP, RETCT, PT, PATH, FERI, TROPI, BMPX #### [address] [address] Service Unit Operator Oil Well: Brennan Daniel MD Ferritinon 01-27-2022 Ferritin [Mass/Vol] 156 ng/mL Normal 30-400 [facility] Comment on above: Performed By: #### F EBC, CDP, RETCT, PT, PATH, FERI, TROPI, BMPX #### [facility] [employer] [address] [place] [address] Service Unit Operator Oil Well: Brennan Daniel MD Ferritin [Mass/Vol] 156 ng/mL 30 - 400 ng/mL [facility] Iron Binding Cap.on 01-28-20 22 % Fe Saturation 20 % Normal 20-55 [facility] Comment on above: Performed By: #### F EBC, CDP, RETCT, PT, PATH, FERI, TROPI, BMPX #### [facility] [employer] [address] [place] [address] [phone] Service Unit Operator Oil Well: Brennan Daniel MD Iron [Mass/Vol] 46 ug/dL Low 59-158 [facility] Comment on above: Performed By: #### F EBC, CDP, RETCT, PT, PATH, FERI, TROPI, BMPX #### [facility] [address] [place], [place] [phone] Service Unit Operator Oil Well: Brennan Daniel MD Total Fe Binding Cap 235 ug/dL Low 250-450 [facility] Comment on above: Performed By: #### F EBC, CDP, RETCT, PT, PATH, FERI, TROPI, BMPX #### [facility] [place], [place] [phone] Service Unit Operator Oil Well: Brennan Daniel MD Unbound Fe Bind Cap 189 ug/dL Normal 112-347 [facility] Comment on above: Performed By: #### F EBC, CDP, RETCT, PT, PATH, FERI, TROPI, BMPX #### [facility] [place], [place] [phone] Service Unit Operator Oil Well: Brennan Daniel MD Iron and TIBCon 01-27-2022 Interpretation and review of laboratory results Abnormal [facility] Iron [Mass/Vol] 46 ug/dL Low 59 - 158 ug/dL [facility] Iron Saturation 20 % 20 - 55 % [facility] TIBC 235 ug/dL Low 250 - 450 ug/dL [facility] UIBC 189 ug/dL 112 - 347 ug/dL [facility] No Panel Informationon 01-27 [facility] Path Review, Smearon 022 Pathologist Review ELECTRONICALLY SIGNED. LUIS FELIPE WATSON MD [facility] Smear to Pathologiston 01-27 Smear to Pathologist ELECTRONICALLY SIGNED. LUIS FELIPE WATSON MD [facility] Comment on above: Performed By: #### F EBC, CDP, RETCT, PT, PATH, FERI, TROPI, BMPX #### [facility] [place], [place] [phone] Service Unit Operator Oil Well: Brennan Daniel MD TSH w/reflex to FT4on 2021 Thyroid Stim. Horm. 3.20 uIU/mL Normal 0.30-5.00 [facility] Comment on above: Performed By: #### F EBC, CDP, RETCT, PT, PATH, FERI, TROPI, BMPX #### [facility] [place], [place] [phone] Service Unit Operator Oil Well: Brennan Daniel MD TSH with Reflexon 01-27-2022 TSH Qn 3.20 m[IU]/L [facility] B12/Folate Panelon Cobalamin (Vitamin B12) [Mass/Vol] 666 pg/mL Normal 232-1245 [facility] Comment on above: Performed By: #### B 12FOL #### [facility] [address] [place] [address] [phone] Service Unit Operator Oil Well: Brennan Daniel MD Folic Acid 11.6 ng/mL Normal >4.8 [facility] Comment on above: Performed By: #### B 12FOL #### [facility] [address] [place] [address] [phone] Service Unit Operator Oil Well: Brennan Daniel MD CBC with Auto Differentialon 01-26-2022 Absolute Eos # 0.00 [facility] Absolute Immature Granulocyte 0.00 [facility] Absolute Lymph # 1.82 [facility] Beam. Absolute Tate # 1.67 High [facility] Beam. Basophils (Bld) [#/Vol] 0.00 10*3/uL [facility] Basophils/100 WBC (Bld) 0 % 0 - 2 % [facility] Eosinophils/100 WBC (Bld) 0 % Low 1 - 4 % [facility] Hematocrit (Bld) [Volume fraction] 32.5 % Low 40.7 - 50.3 % [facility] Hemoglobin (Bld) [Mass/Vol] 10.7 g/dL Low 13 - 17 g/dL [facility] Immature granulocytes/100 WBC (Bld) 0 % 0 [facility] Interpretation and review of laboratory results Abnormal [facility] Lymphocytes/100 WBC (Bld) 12 % Low 24 - 44 % [facility] MCH (RBC) [Entitic mass] 34.2 pg High 25. 2 - 33.5 pg [facility] MCHC (RBC) [Mass/Vol] 32.9 g/dL 28.4 - 34.8 g/dL [facility] MCV (RBC) [Entitic vol] 103.8 fL High 82.6 - 102.9 fL [facility] Monocytes/100 WBC (Bld) 11 % High 1 - 7 % [facility] Morphology Aashish (Bld) [Interp] MACROCYTOSIS PRESENT [facility] Morphology Aashish (Bld) [Interp] ANISOCYTOSIS PRESENT [facility] NRBC Automated 0.0 0.0 per 100 WBC [facility] Platelet distribution width (Bld) [Ratio] 17.4 % High 11.8 - 14.4 % [facility] Platelet mean volume (Bld) [Entitic vol] 11.1 fL 8.1 - 13.5 fL [facility] Platelets (Bld) [#/Vol] 98 10*3/uL Low [facility] RBC (Bld) [#/Vol] 3.13 10*6/uL Low 4.21 - 5.7 7 m/uL [facility] Segmented neutrophils/100 WBC (Bld) 77 % High 36 - 66 % [facility] Segs Absolute 11.71 High [facility] WBC (Bld) [#/Vol] 15.2 10*3/uL High [facility] Absolute Eos # 0.00 [facility] Absolute Immature Granulocyte 0.18 [facility] Absolute Lymph # 1.63 [facility] Absolute Tate # 1.81 High [facility] Basophils (Bld) [#/Vol] 0.00 10*3/uL [facility] Basophils/100 WBC (Bld) 0 % 0 - 2 % [facility] Eosinophils/100 WBC (Bld) 0 % Low 1 - 4 % [facility] Hematocrit (Bld) [Volume fraction] 30.8 % Low 40.7 - 50.3 % [facility] Hemoglobin (Bld) [Mass/Vol] 10.5 g/dL Low 13 - 17 g/dL [facility] Immature granulocytes/100 WBC (Bld) 1 % High 0 [facility] Interpretation and review of laboratory results Abnormal [facility] Lymphocytes/100 WBC (Bld) 9 % Low 24 - 43 % [facility] MCH (RBC) [Entitic mass] 35.6 pg High 25. 2 - 33.5 pg [facility] MCHC (RBC) [Mass/Vol] 34.1 g/dL 28.4 - 34.8 g/dL [facility] MCV (RBC) [Entitic vol] 104.4 fL High 82.6 - 102.9 fL [facility] Monocytes/100 WBC (Bld) 10 % 3 - 12 % [facility] Morphology Aashish (Bld) [Interp] ANISOCYTOSIS PRESENT [facility] Morphology Aashish (Bld) [Interp] MACROCYTOSIS PRESENT [facility] NRBC Automated 0.0 0.0 per 100 WBC [facility] Platelet distribution width (Bld) [Ratio] 18.7 % High 11.8 - 14.4 % [facility] Platelet mean volume (Bld) [Entitic vol] 11.5 fL 8.1 - 13.5 fL [facility] Platelets (Bld) [#/Vol] 232 10*3/uL [facility] RBC (Bld) [#/Vol] 2.95 10*6/uL Low 4.21 - 5.7 7 m/uL [facility] Segmented neutrophils/100 WBC (Bld) 80 % High 36 - 65 % [facility] Segs Absolute 14.48 High [facility] WBC (Bld) [#/Vol] 18.1 10*3/uL High [facility] CBC with Diffon 01-26-2022 Abs. Basophil 0.00 k/uL Normal 0.0-0.2 [facility] Comment on above: Performed By: #### F EBC, CDP, RETCT, PT, PATH, FERI, TROPI, BMPX #### [address] [address] Service Unit Operator Oil Well: Brennan Daniel MD Abs.Imm.Granulocyte 0.00 k/uL Normal 0.00-0.30 [facility] Comment on above: Performed By: #### F EBC, CDP, RETCT, PT, PATH, FERI, TROPI, BMPX #### [place] [address] Service Unit Operator Oil Well: Brennan Daniel MD Abs.Neutrophil (Seg) 11.71 k/uL High 1.8-7.7 [facility] Comment on above: Performed By: #### F EBC, CDP, RETCT, PT, PATH, FERI, TROPI, BMPX #### [place] [address] Service Unit Operator Oil Well: Brennan Daniel MD Basophils/100 WBC (Bld) 0 % Normal 0-2 M [facility] Comment on above: Performed By: #### F EBC, CDP, RETCT, PT, PATH, FERI, TROPI, BMPX #### [facility] [employer] [address] [place] [address] Service Unit Operator Oil Well: Brennan Daniel MD Eosinophils (Bld) [#/Vol] 0.00 10*3/uL Normal 0.0-0.4 [facility] Comment on above: Performed By: #### F EBC, CDP, RETCT, PT, PATH, FERI, TROPI, BMPX #### [facility] [employer] [address] [place] [address] [phone] Service Unit Operator Oil Well: Brennan Daniel MD Eosinophils/100 WBC (Bld) 0 % Low 1-4 [facility] Comment on above: Performed By: #### F EBC, CDP, RETCT, PT, PATH, FERI, TROPI, BMPX #### [address] [address] Service Unit Operator Oil Well: Brennan Daniel MD Immature granulocytes/100 WBC (Bld) 0 % Normal 0 [facility] Comment on above: Performed By: #### F EBC, CDP, RETCT, PT, PATH, FERI, TROPI, BMPX #### [place] [address] Service Unit Operator [employer] Well: Brennan Daniel MD Lymphocytes (Bld) [#/Vol] 1.82 10*3/uL Normal 1.0-4.8 [facility] Comment on above: Performed By: #### F EBC, CDP, RETCT, PT, PATH, FERI, TROPI, BMPX #### [place] [address] Service Unit Operator Oil Well: Brennan Daniel MD Lymphocytes/100 WBC (Bld) 12 % Low 24-44 [facility] Comment on above: Performed By: #### F EBC, CDP, RETCT, PT, PATH, FERI, TROPI, BMPX #### [place] [address] Service Unit Operator Oil Well: Brennan Daniel MD Monocytes (Bld) [#/Vol] 1.67 10*3/uL High 0.1-0.8 [facility] Comment on above: Performed By: #### F EBC, CDP, RETCT, PT, PATH, FERI, TROPI, BMPX #### [address] [address] Service Unit Operator [employer] Well: Brennan Daniel MD Monocytes/100 WBC (Bld) 11 % High 1-7 M [facility] Comment on above: Performed By: #### F EBC, CDP, RETCT, PT, PATH, FERI, TROPI, BMPX #### [facility] [employer] [address] [place] [address] Service Unit Operator Oil Well: Brennan Daniel MD Morphology Aashish (Bld) [Interp] MACROCYTOSIS PRESENT Normal [facility] Comment on above: Result Comment: ANIS OCYTOSIS PRESENT Performed By: #### F EBC, CDP, RETCT, PT, PATH, FERI, TROPI, BMPX #### [facility] [employer] [address] [place] [address] Service Unit Operator Oil Well: Brennan Daniel MD Neutrophil (Seg) 77 % High 36-66 [facility] Comment on above: Performed By: #### F EBC, CDP, RETCT, PT, PATH, FERI, TROPI, BMPX #### [facility] [employer] [address] [place] [address] Service Unit Operator Oil Well: Brennan Daniel MD Erythrocyte distribution width (RBC) [Ratio] 17.4 % High 11.8-14.4 [facility] Comment on above: Performed By: #### F EBC, CDP, RETCT, PT, PATH, FERI, TROPI, BMPX #### [facility] [employer] [address] [place] [address] Service Unit Operator Oil Well: Brennan Daniel MD Hematocrit (Bld) [Volume fraction] 32.5 % Low 40.7-50.3 [facility] Comment on above: Performed By: #### F EBC, CDP, RETCT, PT, PATH, FERI, TROPI, BMPX #### [facility] [employer] [address] [place] [address] Service Unit Operator Oil Well: Brennan Daniel MD Hemoglobin (Bld) [Mass/Vol] 10.7 g/dL Low 13.0-17.0 [facility] Comment on above: Performed By: #### F EBC, CDP, RETCT, PT, PATH, FERI, TROPI, BMPX #### [address] [phone] Service Unit Operator Oil Well: Brennan Daniel MD MCH (RBC) [Entitic mass] 34.2 pg High 25.2-33.5 [facility] Comment on above: Performed By: #### F EBC, CDP, RETCT, PT, PATH, FERI, TROPI, BMPX #### [address] [address] Service Unit Operator Oil Well: Brennan Daniel MD MCHC (RBC) [Mass/Vol] 32.9 g/dL Normal 28.4-34.8 [facility] Comment on above: Performed By: #### F EBC, CDP, RETCT, PT, PATH, FERI, TROPI, BMPX #### [place] [address] Service Unit Operator Oil Well: Brennan Daniel MD MCV (RBC) [Entitic vol] 103.8 fL High 82.6-102.9 M [facility] Comment on above: Performed By: #### F EBC, CDP, RETCT, PT, PATH, FERI, TROPI, BMPX #### [address] [address] Service Unit Operator Oil Well: Brennan Daniel MD NRBC Automated 0.0 per 100 WBC Normal 0.0 [facility] Comment on above: Performed By: #### F EBC, CDP, RETCT, PT, PATH, FERI, TROPI, BMPX #### [place] [phone] Service Unit Operator Oil Well: Brennan Daniel MD Platelet mean volume (Bld) [Entitic vol] 11.1 fL Normal 8.1-13.5 [facility] Comment on above: Performed By: #### F EBC, CDP, RETCT, PT, PATH, FERI, TROPI, BMPX #### [address] [address] Service Unit Operator Oil Well: Brennan Daniel MD Platelets (d) [#/Vol] 98 10*3/uL Low 138-453 M [facility] Comment on above: Performed By: #### F EBC, CDP, RETCT, PT, PATH, FERI, TROPI, BMPX #### [place] [address] Service Unit Operator Oil Well: Brennan Daniel MD RBC (d) [#/Vol] 3.13 10*6/uL Low 4.21-5.77 [facility] Comment on above: Performed By: #### F EBC, CDP, RETCT, PT, PATH, FERI, TROPI, BMPX #### [place] [address] Service Unit Operator Oil Well: Brennan Daniel MD WBC (d) [#/Vol] 15.2 10*3/uL High 3.5-11.3 [facility] Comment on above: Performed By: #### F EBC, CDP, RETCT, PT, PATH, FERI, TROPI, BMPX #### [place] [address] Service Unit Operator Oil Well: Brennan Daniel MD Abs. Basophil 0.00 k/uL Normal 0.00-0.20 [facility] Comment on above: Performed By: #### F EBC, CDP, RETCT, PT, PATH, FERI, TROPI, BMPX #### [place] [address] Service Unit Operator Oil Well: Brennan Daniel MD Abs.Imm.Granulocyte 0.18 k/uL Normal 0.00-0.30 [facility] Comment on above: Performed By: #### F EBC, CDP, RETCT, PT, PATH, FERI, TROPI, BMPX #### [place] [address] Service Unit Operator Oil Well: Brennan Daniel MD Abs.Neutrophil (Seg) 14.48 k/uL High 1.50-8.10 [facility] Comment on above: Performed By: #### F EBC, CDP, RETCT, PT, PATH, FERI, TROPI, BMPX #### [place] [address] Service Unit Operator Oil Well: Brennan Daniel MD Basophils/100 WBC (Bld) 0 % Normal 0-2 M [facility] Comment on above: Performed By: #### F EBC, CDP, RETCT, PT, PATH, FERI, TROPI, BMPX #### [place] [address] Service Unit Operator Oil Well: Brennan Daniel MD Eosinophils (Bld) [#/Vol] 0.00 10*3/uL Normal 0.00-0.44 [facility] Comment on above: Performed By: #### F EBC, CDP, RETCT, PT, PATH, FERI, TROPI, BMPX #### [place] [address] Service Unit Operator Oil Well: Brennan Daniel MD Eosinophils/100 WBC (Bld) 0 % Low 1-4 [facility] Comment on above: Performed By: #### F EBC, CDP, RETCT, PT, PATH, FERI, TROPI, BMPX #### [place] [address] Service Unit Operator Oil Well: Brennan Daniel MD Immature granulocytes/100 WBC (Bld) 1 % High 0 [facility] Comment on above: Performed By: #### F EBC, CDP, RETCT, PT, PATH, FERI, TROPI, BMPX #### [place] [address] Service Unit Operator Oil Well: Brennan Daniel MD Lymphocytes (Bld) [#/Vol] 1.63 10*3/uL Normal 1.10-3.70 [facility] Comment on above: Performed By: #### F EBC, CDP, RETCT, PT, PATH, FERI, TROPI, BMPX #### [address] [address] Service Unit Operator Oil Well: Brennan Daniel MD Lymphocytes/100 WBC (Bld) 9 % Low 24-43 [facility] Comment on above: Performed By: #### F EBC, CDP, RETCT, PT, PATH, FERI, TROPI, BMPX #### [address] [address] Service Unit Operator Oil Well: Brennan Daniel MD Monocytes (Bld) [#/Vol] 1.81 10*3/uL High 0.10-1.20 [facility] Comment on above: Performed By: #### F EBC, CDP, RETCT, PT, PATH, FERI, TROPI, BMPX #### [address] [address] Service Unit Operator Oil Well: Brennan Daniel MD Monocytes/100 WBC (Bld) 10 % Normal 3-12 M [facility] Comment on above: Performed By: #### F EBC, CDP, RETCT, PT, PATH, FERI, TROPI, BMPX #### [address] [address] Service Unit Operator Oil Well: Brennan Daniel MD Morphology Aashish (Bld) [Interp] ANISOCYTOSIS PRESENT Normal [facility] Comment on above: Result Comment: MACR OCYTOSIS PRESENT Performed By: #### F EBC, CDP, RETCT, PT, PATH, FERI, TROPI, BMPX #### [address] [address] Service Unit Operator Oil Well: Brennan Daniel MD Neutrophil (Seg) 80 % High 36-65 [facility] Comment on above: Performed By: #### F EBC, CDP, RETCT, PT, PATH, FERI, TROPI, BMPX #### [address] [id number] Service Unit Operator Oil Well: Brennan Daniel MD Erythrocyte distribution width (RBC) [Ratio] 18.7 % High 11.8-14.4 [facility] Comment on above: Performed By: #### F EBC, CDP, RETCT, PT, PATH, FERI, TROPI, BMPX #### [place] [address] Service Unit Operator Oil Well: Brennan Daniel MD Hematocrit (Bld) [Volume fraction] 30.8 % Low 40.7-50.3 [facility] Comment on above: Performed By: #### F EBC, CDP, RETCT, PT, PATH, FERI, TROPI, BMPX #### [place] [address] Service Unit Operator Oil Well: Brennan Daniel MD Hemoglobin (Bld) [Mass/Vol] 10.5 g/dL Low 13.0-17.0 [facility] Comment on above: Performed By: #### F EBC, CDP, RETCT, PT, PATH, FERI, TROPI, BMPX #### [place] [address] Service Unit Operator Oil Well: Brennan Daniel MD MCH (RBC) [Entitic mass] 35.6 pg High 25.2-33.5 [facility] Comment on above: Performed By: #### F EBC, CDP, RETCT, PT, PATH, FERI, TROPI, BMPX #### [place] [address] Service Unit Operator Oil Well: Brennan Daniel MD MCHC (RBC) [Mass/Vol] 34.1 g/dL Normal 28.4-34.8 [facility] Comment on above: Performed By: #### F EBC, CDP, RETCT, PT, PATH, FERI, TROPI, BMPX #### [address] [address] Service Unit Operator Oil Well: Brennan Daniel MD MCV (RBC) [Entitic vol] 104.4 fL High 82.6-102.9 M [facility] Comment on above: Performed By: #### F EBC, CDP, RETCT, PT, PATH, FERI, TROPI, BMPX #### [address] [address] Service Unit Operator Oil Well: Brennan Daniel MD NRBC Automated 0.0 per 100 WBC Normal 0.0 [facility] Comment on above: Performed By: #### F EBC, CDP, RETCT, PT, PATH, FERI, TROPI, BMPX #### [address] [address] Service Unit Operator Oil Well: Brennan Daniel MD Platelet mean volume (Bld) [Entitic vol] 11.5 fL Normal 8.1-13.5 [facility] Comment on above: Performed By: #### F EBC, CDP, RETCT, PT, PATH, FERI, TROPI, BMPX #### [address] [address] Service Unit Operator Oil Well: Brennan Daniel MD Platelets (Bld) [#/Vol] 232 10*3/uL Normal 138-453 [facility] Comment on above: Performed By: #### F EBC, CDP, RETCT, PT, PATH, FERI, TROPI, BMPX #### [address] [address] Service Unit Operator Oil Well: Brennan Daniel MD RBC (Bld) [#/Vol] 2.95 10*6/uL Low 4.21-5.77 [facility] Comment on above: Performed By: #### F EBC, CDP, RETCT, PT, PATH, FERI, TROPI, BMPX #### [place] [address] [place], [place] [phone] Service Unit Operator Oil Well: Brennan Daniel MD WBC (Bld) [#/Vol] 18.1 10*3/uL High 3.5-11.3 [facility] Comment on above: Performed By: #### F EBC, CDP, RETCT, PT, PATH, FERI, TROPI, BMPX #### [facility] [place], [place] [phone] Service Unit Operator Oil Well: Brennan Daniel MD COVID-19, Rapidon 01-26-2022 SARS-CoV-2 (COVID-19) RNA SANKET+probe Ql (Unsp spec) Not detected Not Detected [facility] Comment on above: Rapid NAAT: The specimen is NEGATIVE for SARS-CoV-2, the novel coronavirus associated with COVID-19. The ID NOW COVID-19 assay is designed to detect the virus that causes COVID-19 in patients with signs and symptoms of infection who are suspected of COVID-19. An individual without symptoms of COVID-19 and who is not shedding SARS-CoV-2 virus would expect to have a negative (not detected) result in this assay. Negative results should be treated as presumptive and, if inconsistent with clinical signs and symptoms or necessary for patient management, should be tested with an alternative molecular assay. Negative results do not preclude SARS-CoV-2 infection and should not be used as the sole basis for patient management decisions. Fact sheet for Healthcare Providers: https://www.fda.gov/media/850433/download Fact sheet for Patients: https://www.fda.gov/media/357292/download Methodology: Isothermal Nucleic Acid Amplification Specimen Description .NASOPHARYNGEAL SWAB [facility] Comp Metabolic Pr/rfx MGon 0 01-26-2022 Albumin [Mass/Vol] 3.4 g/dL Low 3.5-5.2 [facility] Comment on above: Performed By: #### F EBC, CDP, RETCT, PT, PATH, FERI, TROPI, BMPX #### [facility] [place], [place] [phone] Service Unit Operator Oil Well: Brennan Daniel MD Albumin/Glob Ratio 1.6 Normal 1.0-2.5 [facility] Comment on above: Performed By: #### F EBC, CDP, RETCT, PT, PATH, FERI, TROPI, BMPX #### [address] [address] Service Unit Operator Oil Well: Brennan Daniel MD Alkaline Phos 69 U/L Normal 40-129 [facility] Comment on above: Result Comment: SPEC IMEN SLIGHTLY HEMOLYZED, RESULTS MAY BE ADVERSELY AFFECTED. Performed By: #### F EBC, CDP, RETCT, PT, PATH, FERI, TROPI, BMPX #### [address] [address] Service Unit Operator Oil Well: Brennan Daniel MD ALT [Catalytic activity/Vol] 13 U/L Normal 5-41 [facility] Comment on above: Result Comment: SPEC IMEN SLIGHTLY HEMOLYZED, RESULTS MAY BE ADVERSELY AFFECTED. Performed By: #### F EBC, CDP, RETCT, PT, PATH, FERI, TROPI, BMPX #### [address] [address] Service Unit Operator Oil Well: Brennan Daniel MD Anion gap [Moles/Vol] 14 mmol/L Normal 9-17 [facility] Comment on above: Performed By: #### F EBC, CDP, RETCT, PT, PATH, FERI, TROPI, BMPX #### [facility] [employer] [address] [place] [address] Service Unit Operator Oil Well: Brennan Daniel MD Bilirubin [Mass/Vol] 0.55 mg/dL Normal 0.3-1.2 [facility] Comment on above: Performed By: #### F EBC, CDP, RETCT, PT, PATH, FERI, TROPI, BMPX #### [address] [address] Service Unit Operator Oil Well: Brennan Daniel MD Calcium [Mass/Vol] 8.5 mg/dL Low 8.6-10.4 [facility] Comment on above: Performed By: #### F EBC, CDP, RETCT, PT, PATH, FERI, TROPI, BMPX #### [address] [address] Service Unit Operator Oil Well: Brennan Daniel MD CO2 [Moles/Vol] 18 mmol/L Low 20-31 [facility] Comment on above: Performed By: #### F EBC, CDP, RETCT, PT, PATH, FERI, TROPI, BMPX #### [address] [address] Service Unit Operator Oil Well: Brennan Daniel MD Creatinine [Mass/Vol] 1.26 mg/dL High 0.70-1.20 [facility] Comment on above: Performed By: #### F EBC, CDP, RETCT, PT, PATH, FERI, TROPI, BMPX #### [address] [address] Service Unit Operator Oil Well: Brennan Daniel MD GFR, Amer >60 Normal >60 [facility] Comment on above: Performed By: #### F EBC, CDP, RETCT, PT, PATH, FERI, TROPI, BMPX #### [address] [address] Service Unit Operator Oil Well: Brennan Daniel MD GFR,non Amer 55 mL/min Low >60 [facility] Comment on above: Performed By: #### F EBC, CDP, RETCT, PT, PATH, FERI, TROPI, BMPX #### [address] [address] Service Unit Operator Oil Well: Brennan Daniel MD Glucose [Mass/Vol] 97 mg/dL Normal 70-99 [facility] Comment on above: Performed By: #### F EBC, CDP, RETCT, PT, PATH, FERI, TROPI, BMPX #### [place] [address] [place], [place] [phone] Service Unit Operator Oil Well: Brennan Daniel MD Protein [Mass/Vol] 5.5 g/dL Low 6.4-8.3 [facility] Comment on above: Performed By: #### F EBC, CDP, RETCT, PT, PATH, FERI, TROPI, BMPX #### [facility] [address] [place] [address] Service Unit Operator Oil Well: Brennan Daniel MD Urea nitrogen [Mass/Vol] 20 mg/dL Normal 8-23 [facility] Comment on above: Performed By: #### F EBC, CDP, RETCT, PT, PATH, FERI, TROPI, BMPX #### [address] [address] Service Unit Operator Oil Well: Brennan Daniel MD (cont.) [facility] Comment on above: Result Comment: Aver age GFR for 70 or more years old: 75 mL/min/1.73sq m Chronic Kidney Disease: <60 mL/min/1.73sq m Kidney failure: <15 mL/min/1.73sq m eGFR calculated using average adult body mass. Additional eGFR calculator available at: http://www.Avnera.Changelight/multiple_crcl_2012.htm Performed By: #### F EBC, CDP, RETCT, PT, PATH, FERI, TROPI, BMPX #### [facility] [place] [address] Service Unit Operator Oil Well: Brennan Daniel MD AST [Catalytic activity/Vol] 29 U/L Normal <40 [facility] Comment on above: Performed By: #### F EBC, CDP, RETCT, PT, PATH, FERI, TROPI, BMPX #### [facility] [employer] [address] [place] [address] [phone] Service Unit Operator Oil Well: Brennan Daniel MD Chloride [Moles/Vol] 109 mmol/L High 98-107 [facility] Comment on above: Performed By: #### F EBC, CDP, RETCT, PT, PATH, FERI, TROPI, BMPX #### [facility] [address] [place], [place] [phone] Service Unit Operator Oil Well: Brennan Daniel MD Potassium [Moles/Vol] 4.4 mmol/L Normal 3.7-5.3 [facility] Comment on above: Performed By: #### F EBC, CDP, RETCT, PT, PATH, FERI, TROPI, BMPX #### [facility] [place], [place] [phone] Service Unit Operator Oil Well: Brennan Daniel MD Sodium [Moles/Vol] 141 mmol/L Normal 135-144 [facility] Comment on above: Performed By: #### F EBC, CDP, RETCT, PT, PATH, FERI, TROPI, BMPX #### [facility] [address] [place] [address] [phone] Service Unit Operator Oil Well: Brennan Daniel MD Comprehensive Metabolic Pane l w/ Reflex to MGon 01-26-2022 Albumin [Mass/Vol] 3.4 g/dL Low 3.5 - 5.2 g/dL [facility] Albumin/Globulin [Mass ratio] 1.6 {ratio} 1 - 2.5 [facility] ALP (Bld) [Catalytic activity/Vol] 69 U/L 40 - 129 U/L [facility] Comment on above: SPECIMEN SLIGHTLY HE MOLYZED, RESULTS MAY BE ADVERSELY AFFECTED. ALT [Catalytic activity/Vol] 13 U/L 5 - 41 U/L [facility] Comment on above: SPECIMEN SLIGHTLY HE MOLYZED, RESULTS MAY BE ADVERSELY AFFECTED. Anion gap [Moles/Vol] 14 mmol/L 9 - 17 mmol/L [facility] AST [Catalytic activity/Vol] 29 U/L NINF - 40 U/L [facility] Bilirubin [Mass/Vol] 0.55 mg/dL 0.3 - 1 .2 mg/dL [facility] Calcium [Mass/Vol] 8.5 mg/dL Low 8.6 - 10. 4 mg/dL [facility] Chloride [Moles/Vol] 109 mmol/L High 98 - 10 7 mmol/L [facility] CO2 [Moles/Vol] 18 mmol/L Low 20 - 31 mmol/L [facility] Creatinine [Mass/Vol] 1.26 mg/dL High 0.7 - 1.2 mg/dL [facility] Free PSA/Total PSA [Mass fraction] 5.5 g/dL Low 6.4 - 8.3 g/dL [facility] GFR >60 60 - PI NF mL/min [facility] GFR Non- 55 mL/min Low 60 - PINF mL/min [facility] GFR/1.73 sq M.predicted MDRD (S/P/Bld) [Vol rate/Area] [facility] Comment on above: Average GFR for 70 o r more years old: 75 mL/min/1.73sq m Chronic Kidney Disease: <60 mL/min/1.73sq m Kidney failure: <15 mL/min/1.73sq m eGFR calculated using average adult body mass. Additional eGFR calculator available at: http://www.MXP4/multiple_crcl_2011.htm Glucose [Mass/Vol] 97 mg/dL 70 - 99 mg/dL [facility] Interpretation and review of laboratory results Abnormal [facility] Potassium [Moles/Vol] 4.4 mmol/L 3.7 - 5.3 mmol/L [facility] Sodium [Moles/Vol] 141 mmol/L 135 - 144 mmol/L [facility] Urea nitrogen (BldV) [Mass/Vol] 20 mg/dL 8 - 23 mg/dL [facility] ECHO Complete 2D W Doppler W Coloron 01-26-2022 Transthoracic Echocardiography Report (TTE) Patient Name NAOMI LOUIS Date of Study 01/26/2022 M Date of 1940 Gender Male Age 81 year(s) Race Room Number 2021 Height: 72 inch, 182.88 cm Corporate ID [id number] Weight: 198 pounds, 89.8 kg # Patient Acct [id number] BSA: 2.12 m^2 BMI: 26.85 kg/m^2 # MR # [id number] [employer] Operator Kanika Moody Interpreting Physician Mario Alberto Conner Fellow Referring Nurse Practitioner Interpreting Referring Physician LISETTE WONG, Fellow [employer] SURFACER-RECRUITMENT AND OUTREACH ASSISTANT Type of Study TTE procedure:2D Echocardiogram, M-Mode, Doppler, Color Doppler. Procedure Date Date: 01/26/2022 Start: 02:38 PM Study Location: [facility] Technical Quality: Fair visualization Indications:Atrial fibrillation, Cardiac arrest and Coronary artery disease. History / Tech. Comments: Procedure explained to patient. Study done at the bedside. Patient Status: Inpatient Height: 72 inches Weight: 198 pounds BSA: 2.12 m^2 BMI: 26.85 kg/m^2 HR: 81 bpm Allergies - *Unlisted:(amoxicilla n statins). CONCLUSIONS Summary Left ventricle is normal in size. Global left ventricular systolic function is normal. Estimated ejection fraction is 55 % . Calculated EF via 3D Heart Model is 54 %. Mild left ventricular hypertrophy. No obvious wall motion abnormality seen. Normal right ventricular size and function. No significant valvular regurgitation or stenosis seen. Signature FINDINGS Left Atrium Left atrium is normal in size. Left Ventricle Left ventricle is normal in size. Global left ventricular systolic function is normal. Estimated ejection fraction is 55 % . Calculated EF via 3D Heart Model is 54 %. Mild left ventricular hypertrophy. No obvious wall motion abnormality seen. Right Atrium Right atrium is normal in size. Right Ventricle Normal right ventricular size and function. Mitral Valve Normal mitral valve structure. No significant mitral regurgitation. No mitral stenosis. Aortic Valve Aortic valve structure and function normal. Aortic valve is trileaflet. No aortic insufficiency. No aortic stenosis. Tricuspid Valve Normal tricuspid valve leaflets. No significant tricuspid regurgitation. No tricuspid stenosis. Insignificant tricuspid regurgitation, unable to estimate RVSP. Pulmonic Valve Pulmonic valve is normal in structure and function. No pulmonic insufficiency. No evidence of pulmonic stenosis. Pericardial Effusion No pericardial effusion. Miscellaneous Normal aortic root dimension. The ascending aorta is normal in size. E/E' average = 11.85. IVC normal diameter & inspiratory collapse indicating normal RA filling pressure . M-mode / 2D Measurements & Calculations: LVIDd:4.6 cm(3.7 - 5.6 cm) Diastolic Volume:187 ml LVIDs:3 cm(2.2 - 4.0 cm) Systolic Volume:86 ml IVSd:1.2 cm(0.6 - 1.1 cm) Aortic Root:3.3 cm(2.0 - 3.7 cm) LVPWd:1.3 cm(0.6 - 1.1 cm) LA Dimension: 3.4 cm(1.9 - 4.0 cm) Fractional Shortenin.78 % LA volume/Index: 37.53 ml /18m^2 Calculated LVEF (%): 54.01 % LVOT:2.2 cm RVDd:3.2 cm Mitral: Aortic Valve Area (P1/2-Time): 2.32 cm^2 Peak Velocity: 0.93 m/s Peak E-Wave: 0.81 m/s Mean Velocity: 0.65 m/s Peak A-Wave: 0.79 m/s Peak Gradient: 3.48 mmHg E/A Ratio: 1.02 Mean Gradient: 2 mmHg Peak Gradient: 2.6 mmHg Mean Gradient: 2 mmHg Deceleration Time: 261 msec Area (continuity): 3.76 cm^2 P1/2t: 95 msec AV VTI: 20.7 cm Area (continuity): 2.07 cm^2 Mean Velocity: 0.60 m/s Pulmonic: Peak Velocity: 1.17 m/s Peak Gradient: 5.48 mmHg Diastology / Tissue Doppler Septal Wall E' velocity:0.06 m/s Septal Wall E/E':13 Lateral Wall E' velocity:0.08 m/s Lateral Wall E/E':10.7 [facility]PN STV CPACS Mario Alberto Conner MD - 01/26/2022 Transthoracic Echocardiography Report (TTE) Patient Name NAOMI LOUIS Date of Study 01/26/2022 M Date of 1940 Gender Male Age 81 year(s) Race Room Number 2021 Height: 72 inch, 182.88 cm Corporate ID [id number] Weight: 198 pounds, 89.8 kg # Patient Acct [id number] BSA: 2.12 m^2 BMI: 26.85 kg/m^2 # MR # [id number] [employer] Machine Operator Heidy Kanika Interpreting Physician Mario Alberto Conner Fellow Referring Nurse Practitioner Interpreting Referring Physician LISETTE WONG, Fellow [place]-RECRUITMENT AND OUTREACH ASSISTANT Type of Study TTE procedure:2D Echocardiogram, M-Mode, Doppler, Color Doppler. Procedure Date Date: 01/26/2022 Start: 02:38 PM Study Location: [facility] Technical Quality: Fair visualization Indications:Atrial fibrillation, Cardiac arrest and Coronary artery disease. History / Tech. Comments: Procedure explained to patient. Study done at the bedside. Patient Status: Inpatient Height: 72 inches Weight: 198 pounds BSA: 2.12 m^2 BMI: 26.85 kg/m^2 HR: 81 bpm Allergies - *Unlisted:(manuela an). CONCLUSIONS Summary Left ventricle is normal in size. Global left ventricular systolic function is normal. Estimated ejection fraction is 55 % . Calculated EF via 3D Heart Model is 54 %. Mild left ventricular hypertrophy. No obvious wall motion abnormality seen. Normal right ventricular size and function. No significant valvular regurgitation or stenosis seen. Signature - - - - FINDINGS Left Atrium Left atrium is normal in size. Left Ventricle Left ventricle is normal in size. Global left ventricular systolic function is normal. Estimated ejection fraction is 55 % . Calculated EF via 3D Heart Model is 54 %. Mild left ventricular hypertrophy. No obvious wall motion abnormality seen. Right Atrium Right atrium is normal in size. Right Ventricle Normal right ventricular size and function. Mitral Valve Normal mitral valve structure. No significant mitral regurgitation. No mitral stenosis. Aortic Valve Aortic valve structure and function normal. Aortic valve is trileaflet. No aortic insufficiency. No aortic stenosis. Tricuspid Valve Normal tricuspid valve leaflets. No significant tricuspid regurgitation. No tricuspid stenosis. Insignificant tricuspid regurgitation, unable to estimate RVSP. Pulmonic Valve Pulmonic valve is normal in structure and function. No pulmonic insufficiency. No evidence of pulmonic stenosis. Pericardial Effusion No pericardial effusion. Miscellaneous Normal aortic root dimension. The ascending aorta is normal in size. E/E' average = 11.85. IVC normal diameter & inspiratory collapse indicating normal RA filling pressure . M-mode / 2D Measurements & Calculations: LVIDd:4.6 cm(3.7 - 5.6 cm) Diastolic Volume:187 ml LVIDs:3 cm(2.2 - 4.0 cm) Systolic Volume:86 ml IVSd:1.2 cm(0.6 - 1.1 cm) Aortic Root:3.3 cm(2.0 - 3.7 cm) LVPWd:1.3 cm(0.6 - 1.1 cm) LA Dimension: 3.4 cm(1.9 - 4.0 cm) Fractional Shortenin.78 % LA volume/Index: 37.53 ml /18m^2 Calculated LVEF (%): 54.01 % LVOT:2.2 cm RVDd:3.2 cm Mitral: Aortic Valve Area (P1/2-Time): 2.32 cm^2 Peak Velocity: 0.93 m/s Peak E-Wave: 0.81 m/s Mean Velocity: 0.65 m/s Peak A-Wave: 0.79 m/s Peak Gradient: 3.48 mmHg E/A Ratio: 1.02 Mean Gradient: 2 mmHg Peak Gradient: 2.6 mmHg Mean Gradient: 2 mmHg Deceleration Time: 261 msec Area (continuity): 3.76 cm^2 P1/2t: 95 msec AV VTI: 20.7 cm Area (continuity): 2.07 cm^2 Mean Velocity: 0.60 m/s Pulmonic: Peak Velocity: 1.17 m/s Peak Gradient: 5.48 mmHg Diastology / Tissue Doppler Septal Wall E' velocity:0.06 m/s Septal Wall E/E':13 Lateral Wall E' velocity:0.08 m/s Lateral Wall E/E':10.7 [employer] Phone: ECHO Complete 2D W Doppler W ColorOrdered By: Mario Alberto Conner on 01-26-2022 [employer] Work Phone: [phone] EKG 12 LeadOrdered By: Mary Gan on 01-26-2022 Atrial Rate 105 BPM [employer] Work Phone: P [place] 22 degrees [employer] Work Phone: P-R Interval 152 ms [employer] Phone: Q-T Interval 358 ms [employer] Work Phone: [phone] QRS Duration 80 ms [employer] Work Phone: QTc Calculation (Bazett) 473 ms [employer] Work Phone: R [place] -19 degrees [employer] Work Phone: T [place] 118 degrees [employer] Work Phone: Ventricular Rate 105 BPM BON [employer] Work Phone: [employer] Work Phone: [phone] EKG 12 Leadon 01-26-2022 Sinus tachycardia Possible Inferior infarct (cited on or before 23-MAY-2021) Abnormal ECG When compared with ECG of 23-MAY-2021 12:41, Vent. rate has increased BY 37 BPM Questionable change in initial forces of Inferior leads Nonspecific T wave abnormality has replaced inverted T waves in Inferior leads Nonspecific T wave abnormality, worse in Lateral leads [facility] Mary Gan MD - 01/26/2022 Sinus tachycardia Possible Inferior infarct (cited on or before 23-MAY-2021) Abnormal ECG When compared with ECG of 23-MAY-2021 12:41, Vent. rate has increased BY 37 BPM Questionable change in initial forces of Inferior leads Nonspecific T wave abnormality has replaced inverted T waves in Inferior leads Nonspecific T wave abnormality, worse in Lateral leads [facility] [employer], [facility]AD[facility] [employer] Work Phone: Retic Counton 01-26-2022 Absolute Retic 0.060 M/uL Normal 0.030-0.080 [facility] Comment on above: Performed By: #### F EBC, CDP, RETCT, PT, PATH, FERI, TROPI, BMPX #### [facility] [place] [address] Service Unit Operator [employer] Well: Brennan Daniel MD IRF 31.000 % High 2.7-18.3 [facility] Comment on above: Performed By: #### F EBC, CDP, RETCT, PT, PATH, FERI, TROPI, BMPX #### [facility] [address] [place] [address] Service Unit Operator [employer] Well: Brennan Daniel MD Retic Count 1.9 % Normal 0.5-1.9 [facility] Comment on above: Performed By: #### F EBC, CDP, RETCT, PT, PATH, FERI, TROPI, BMPX #### [facility] [place] [address] Service Unit Operator Oil Well: Brennan Daniel MD Retic Hemoglobin 39.5 pg High 28.2-35.7 [facility] Comment on above: Performed By: #### F EBC, CDP, RETCT, PT, PATH, FERI, TROPI, BMPX #### [facility] [place] [address] Service Unit Operator [employer]: Brennan Daniel MD Reticulocyteson 01-26-2022 Absolute Retic # 0.060 [facility] Beam. Immature Retic Fract 31 % High 2.7 - 1 8.3 % [facility] Interpretation and review of laboratory results Abnormal [facility] Retic % 1.9 % 0.5 - 1.9 % [facility] Retic Hemoglobin 39.5 pg High 28.2 - 35.7 pg [facility] [id number] 01-26-2022 SARS-CoV-2 (COVID-19) RNA SANKET+probe Ql (Unsp spec) Not detected Normal [facility] Comment on above: Result Comment: Rapid NAAT: The specimen is NEGATIVE for SARS-CoV-2, the novel coronavirus associated with COVID-19. The ID NOW COVID-19 assay is designed to detect the virus that causes COVID-19 in patients with signs and symptoms of infection who are suspected of COVID-19. An individual without symptoms of COVID-19 and who is not shedding SARS-CoV-2 virus would expect to have a negative (not detected) result in this assay. Negative results should be treated as presumptive and, if inconsistent with clinical signs and symptoms or necessary for patient management, should be tested with an alternative molecular assay. Negative results do not preclude SARS-CoV-2 infection and should not be used as the sole basis for patient management decisions. Fact sheet for Healthcare Providers: https://www.fda.gov/media/552167/download Fact sheet for Patients: https://www.fda.gov/media/254158/download Methodology: Isothermal Nucleic Acid Amplification Performed By: #### C OVRB #### [facility] [address] [place] [address] Service Unit Operator [employer] Well: Brennan Daniel MD SURGICAL PATHOLOGY REPORTon 01-26-2022 Surgical Pathology Report [id number] [facility] AN[facility] PATH[facility] [address] [place] [phone] SURGICAL PATHOLOGY CONSULTATION Patient Name: MISSY SALGADO MR#: [id number] Specimen #[id number] Procedures/Addenda PERIPHERAL BLOOD REPORT Date Ordered: 01/26/2022 Status: Signed Out Date Complete: 01/26/2022 By: Luis Felipe Watson M.D. Date Reported: 01/26/2022 INTERPRETATION Peripheral blood: Macrocytic anemia The patient's vitamin B12 and folate levels are within normal limits. The patient is being treated for multiple myeloma and this may be causing the anemia. Other considerations include other drug effects, liver disease, hypothyroidism, and alcohol. Neutrophilia. Differential considerations include acute infection/inflammatio n, metabolic disturbances, and drug effect. Monocytosis Differential considerations include certain infection, hematologic disorders, collagen vascular diseases, and others. RESULTS-COMMENTS PERIPHERAL BLOOD STUDY CBC: Please see the electronic health record for CBC parameters ([id number], 01/25/22, 04:30). PLATELETS: Adequate platelets. Platelets show normal morphology. LEUKOCYTES: Increased neutrophils and monocytes. White blood cells show normal morphology. There are no blasts. ERYTHROCYTES: Macrocytosis. Anisocytosis. Note: The electronic health record is reviewed. Luis Felipe Watson M.D. Source: A: Peripheral Blood [facility] TYPE AND SCREENon 01-26-2022 ABO/Rh Negative [facility] Antibody ID Panagglutinin due to daratumumab [facility] Antibody ID Antibody identification performed by [place], [address] [place], [place] [id number] [facility] Arm Band Number [id number] [facility] Blood Bank Blood Product Expiration Date [facility] Blood Bank ISBT Product Blood Type 9500 [facility] Blood Bank Unit Type and Rh Negative [facility] Blood product type Nom (BPU) Leukocyte Reduced Red Cell [facility] Blood product unit ID (Dose) [#] [id number] [facility] Crossmatch Result COMPATIBLE [facility] ARJUN IgG Positive [facility] Dispense Status TRANSFUSED [facility] Eluate Ab ID Negative [facility] Expiration Date 01/27/2022,2359 [facility] Transfusion Status OK TO TRANSFUSE B ON [facility] Unit Divison 0 [facility] Unit Issue Date/Time [id number] [facility] Vitamin B12 & Folateon 01-26 Cobalamin (Vitamin B12) [Mass/Vol] 666 pg/mL 232 - 1245 pg/mL [facility] Folate 11.6 ng/mL 4.8 - PINF ng/mL [facility] Basic Metab w/rfx MGon 01-25 (cont.) Normal [facility] Comment on above: Result Comment: Aver age GFR for 70 or more years old: 75 mL/min/1.73sq m Chronic Kidney Disease: <60 mL/min/1.73sq m Kidney failure: <15 mL/min/1.73sq m eGFR calculated using average adult body mass. Additional eGFR calculator available at: http://www.MXP4/multiple_crcl_2012.htm Performed By: #### F EBC, CDP, RETCT, PT, PATH, FERI, TROPI, BMPX #### [facility] [employer] [address] [place] [address] [phone] Service Unit [employer]: Brennan Daniel MD Anion gap [Moles/Vol] 9 mmol/L Normal 9-17 [facility] Comment on above: Performed By: #### F EBC, CDP, RETCT, PT, PATH, FERI, TROPI, BMPX #### [facility] [address] [place] [address] [phone] Service Unit [employer]: Brennan Daniel MD Calcium [Mass/Vol] 8.3 mg/dL Low 8.6-10.4 [facility] Comment on above: Performed By: #### F EBC, CDP, RETCT, PT, PATH, FERI, TROPI, BMPX #### [facility] [address] [place] [address] [phone] Service Unit [employer]: Brennan Daniel MD Chloride [Moles/Vol] 102 mmol/L Normal 98-107 [facility] Comment on above: Performed By: #### F EBC, CDP, RETCT, PT, PATH, FERI, TROPI, BMPX #### [facility] [employer] [address] [place] [address] [phone] Service Unit Operator [employer]: Brennan Daniel MD CO2 [Moles/Vol] 22 mmol/L Normal 20-31 [facility] Comment on above: Performed By: #### F EBC, CDP, RETCT, PT, PATH, FERI, TROPI, BMPX #### [facility] [address] [place] [phone] Service Unit [employer]: Brennan Daniel MD Creatinine [Mass/Vol] 1.23 mg/dL High 0.70-1.20 [facility] Comment on above: Performed By: #### F EBC, CDP, RETCT, PT, PATH, FERI, TROPI, BMPX #### [facility] [address] [place] [address] Service Unit Operator [employer] Well: Brennan Daniel MD GFR, Amer >60 Normal >60 [facility] Comment on above: Performed By: #### F EBC, CDP, RETCT, PT, PATH, FERI, TROPI, BMPX #### [place] [address] Service Unit Operator [employer]: Brennan Daniel MD GFR,non Amer 57 mL/min Low >60 [facility] Comment on above: Performed By: #### F EBC, CDP, RETCT, PT, PATH, FERI, TROPI, BMPX #### [address] [address] Service Unit Operator [employer]: Brennan Daniel MD Glucose [Mass/Vol] 103 mg/dL High 70-99 [facility] Comment on above: Performed By: #### F EBC, CDP, RETCT, PT, PATH, FERI, TROPI, BMPX #### [facility] [employer] [address] [place] [phone] Service Unit Operator [employer]: Brennan Daniel MD Potassium [Moles/Vol] 4.4 mmol/L Normal 3.7-5.3 [facility] Comment on above: Performed By: #### F EBC, CDP, RETCT, PT, PATH, FERI, TROPI, BMPX #### [facility] [address] [place] [address] [phone] Service Unit Operator [employer]: Brennan Daniel MD Sodium [Moles/Vol] 133 mmol/L Low 135-144 [facility] Comment on above: Performed By: #### F EBC, CDP, RETCT, PT, PATH, FERI, TROPI, BMPX #### [address] [phone] Service Unit [employer]: Brennan Daniel MD Urea nitrogen [Mass/Vol] 25 mg/dL High 8-23 [facility] Comment on above: Performed By: #### F EBC, CDP, RETCT, PT, PATH, FERI, TROPI, BMPX #### [address] [address] Service Unit Operator [employer]: Brennan Daniel MD (cont.) [facility] Comment on above: Result Comment: Aver age GFR for 70 or more years old: 75 mL/min/1.73sq m Chronic Kidney Disease: <60 mL/min/1.73sq m Kidney failure: <15 mL/min/1.73sq m eGFR calculated using average adult body mass. Additional eGFR calculator available at: http://www.Avnera.Changelight/multiple_crcl_2012.htm Performed By: #### F EBC, CDP, RETCT, PT, PATH, FERI, TROPI, BMPX #### [address] [address] Service Unit Operator [employer]: Brennan Daniel MD Anion gap [Moles/Vol] 12 mmol/L Normal 9-17 [facility] Comment on above: Performed By: #### F EBC, CDP, RETCT, PT, PATH, FERI, TROPI, BMPX #### [address] [address] Service Unit Operator [employer]: Brennan Daniel MD Calcium [Mass/Vol] 7.7 mg/dL Low 8.6-10.4 [facility] Comment on above: Performed By: #### F EBC, CDP, RETCT, PT, PATH, FERI, TROPI, BMPX #### [facility] [address] [place] [phone] Service Unit Operator [employer]: Brennan Daniel MD Chloride [Moles/Vol] 105 mmol/L Normal 98-107 [facility] Comment on above: Performed By: #### F EBC, CDP, RETCT, PT, PATH, FERI, TROPI, BMPX #### [facility] [address] [place] [address] Service Unit Operator [employer] Well: Brennan Daniel MD CO2 [Moles/Vol] 19 mmol/L Low 20-31 [facility] Comment on above: Performed By: #### F EBC, CDP, RETCT, PT, PATH, FERI, TROPI, BMPX #### [address] [address] Service Unit Operator [employer] Well: Brennan Daniel MD Creatinine [Mass/Vol] 1.08 mg/dL Normal 0.70-1.20 [facility] Comment on above: Performed By: #### F EBC, CDP, RETCT, PT, PATH, FERI, TROPI, BMPX #### [facility] [employer] [address] [place] [address] Service Unit Operator [employer]: Brennan Daniel MD GFR, Amer >60 Normal >60 [facility] Comment on above: Performed By: #### F EBC, CDP, RETCT, PT, PATH, FERI, TROPI, BMPX #### [facility] [employer] [address] [place] [address] Service Unit Operator [employer] Well: Brennan Daniel MD GFR,non Amer >60 Normal >60 [facility] Comment on above: Performed By: #### F EBC, CDP, RETCT, PT, PATH, FERI, TROPI, BMPX #### [facility] [employer] [address] [place] [address] [phone] Service Unit Operator [employer]: Brennan Daniel MD Glucose [Mass/Vol] 140 mg/dL High 70-99 [facility] Comment on above: Performed By: #### F EBC, CDP, RETCT, PT, PATH, FERI, TROPI, BMPX #### [facility] [address] [place] [address] [phone] Service Unit Operator Oil Well: Brennan Daniel MD Potassium [Moles/Vol] 4.6 mmol/L Normal 3.7-5.3 [facility] Comment on above: Performed By: #### F EBC, CDP, RETCT, PT, PATH, FERI, TROPI, BMPX #### [facility] [address] [place] [address] [phone] Service Unit Operator [employer] Well: Brennan Daniel MD Sodium [Moles/Vol] 136 mmol/L Normal 135-144 [facility] Comment on above: Performed By: #### F EBC, CDP, RETCT, PT, PATH, FERI, TROPI, BMPX #### [facility] [address] [place] [address] [phone] Service Unit Operator [employer]: Brennan Daniel MD Urea nitrogen [Mass/Vol] 27 mg/dL High 8-23 [facility] Comment on above: Performed By: #### F EBC, CDP, RETCT, PT, PATH, FERI, TROPI, BMPX #### [facility] [address] [place] [address] [phone] Service Unit [employer]: Brennan Daniel MD Basic Metabolic Panel w/ Ref master to MGon 01-25-2022 Anion gap [Moles/Vol] 9 mmol/L 9 - 17 mmol/L [facility] Calcium [Mass/Vol] 8.3 mg/dL Low 8.6 - 10. 4 mg/dL [facility] Chloride [Moles/Vol] 102 mmol/L 98 - 10 7 mmol/L [facility] CO2 [Moles/Vol] 22 mmol/L 20 - 31 mmol/L [facility] Creatinine [Mass/Vol] 1.23 mg/dL High 0.7 - 1.2 mg/dL [facility] GFR >60 60 - PI NF mL/min [facility] GFR Non- 57 mL/min Low 60 - PINF mL/min [facility] GFR/1.73 sq M.predicted MDRD (S/P/Bld) [Vol rate/Area] [facility] Comment on above: Average GFR for 70 o r more years old: 75 mL/min/1.73sq m Chronic Kidney Disease: <60 mL/min/1.73sq m Kidney failure: <15 mL/min/1.73sq m eGFR calculated using average adult body mass. Additional eGFR calculator available at: http://www.MXP4/multiple_crcl_2011.htm Glucose [Mass/Vol] 103 mg/dL High 70 - 99 mg/dL [facility] Interpretation and review of laboratory results Abnormal [facility] Potassium [Moles/Vol] 4.4 mmol/L 3.7 - 5.3 mmol/L [facility] Sodium [Moles/Vol] 133 mmol/L Low 135 - 144 mmol/L [facility] Urea nitrogen (BldV) [Mass/Vol] 25 mg/dL High 8 - 23 mg/dL [facility] Anion gap [Moles/Vol] 12 mmol/L 9 - 17 mmol/L [facility] Calcium [Mass/Vol] 7.7 mg/dL Low 8.6 - 10. 4 mg/dL [facility] Chloride [Moles/Vol] 105 mmol/L 98 - 10 7 mmol/L [facility] CO2 [Moles/Vol] 19 mmol/L Low 20 - 31 mmol/L [facility] Creatinine [Mass/Vol] 1.08 mg/dL 0.7 - 1.2 mg/dL [facility] GFR >60 60 - PI NF mL/min [facility] GFR Non- >60 60 - PINF mL/min [facility] GFR/1.73 sq M.predicted MDRD (S/P/Bld) [Vol rate/Area] [facility] Comment on above: Average GFR for 70 o r more years old: 75 mL/min/1.73sq m Chronic Kidney Disease: <60 mL/min/1.73sq m Kidney failure: <15 mL/min/1.73sq m eGFR calculated using average adult body mass. Additional eGFR calculator available at: http://www.MXP4/multiple_crcl_2012.htm Glucose [Mass/Vol] 140 mg/dL High 70 - 99 mg/dL [facility] Interpretation and review of laboratory results Abnormal [facility] Potassium [Moles/Vol] 4.6 mmol/L 3.7 - 5.3 mmol/L [facility] Sodium [Moles/Vol] 136 mmol/L 135 - 144 mmol/L [facility] Urea nitrogen (BldV) [Mass/Vol] 27 mg/dL High 8 - 23 mg/dL [facility] Ferritinon 01-25-2022 Ferritin [Mass/Vol] 92 ng/mL Normal 30-400 [facility] Comment on above: Performed By: #### F EBC, CDP, RETCT, PT, PATH, FERI, TROPI, BMPX #### [facility] [address] [place] [phone] Service Unit Operator [employer]: Brennan Daniel MD Ferritin [Mass/Vol] 92 ng/mL 30 - 400 ng/mL [facility] Iron Binding Cap.on 01-26-20 22 % Fe Saturation 88 % High 20-55 [facility] Comment on above: Performed By: #### F EBC, CDP, RETCT, PT, PATH, FERI, TROPI, BMPX #### [facility] [address] [place], [place] [phone] Service Unit Operator [employer] Well: Brennan Daniel MD Iron [Mass/Vol] 211 ug/dL High 59-158 [facility] Comment on above: Performed By: #### F EBC, CDP, RETCT, PT, PATH, FERI, TROPI, BMPX #### [facility] [address] [place], [place] [phone] Service Unit Operator [employer] Well: Brennan Daniel MD Total Fe Binding Cap 239 ug/dL Low 250-450 [facility] Comment on above: Performed By: #### F EBC, CDP, RETCT, PT, PATH, FERI, TROPI, BMPX #### [facility] [place], [place] [phone] Service Unit Operator Oil Well: Brennan Daniel MD Unbound Fe Bind Cap 28 ug/dL Low 112-347 [facility] Comment on above: Performed By: #### F EBC, CDP, RETCT, PT, PATH, FERI, TROPI, BMPX #### [facility] [place], [place] [phone] Service Unit Operator [employer]: Brennan Daniel MD Iron and TIBCon 01-25-2022 Interpretation and review of laboratory results Abnormal [facility] Iron [Mass/Vol] 211 ug/dL High 59 - 158 ug/dL [facility] Iron Saturation 88 % High 20 - 55 % [facility] TIBC 239 ug/dL Low 250 - 450 ug/dL [facility] UIBC 28 ug/dL Low 112 - 347 ug/dL [facility] Lactic Acidon 01-25-2022 Lactic Acid,Whole Bl 2.5 mmol/L High 0.7-2.1 [facility] Comment on above: Performed By: #### F EBC, CDP, RETCT, PT, PATH, FERI, TROPI, BMPX #### [facility] [address] [place], [place] [phone] Service Unit Operator Oil Well: Brennan Daniel MD Interpretation and review of laboratory results Abnormal [facility] Lactic Acid, Whole Blood 2.5 mmol/L High 0.7 - 2.1 mmol/L [facility] No Panel Informationon 01-25 [facility] PTon 01-25-2022 INR Coag (PPP) [Relative time] 0.9 {INR} Normal [facility] Comment on above: Result Comment: Therapeutic Range: Moderate Anticoagulant Intensity: INR = 2.0-3.0 High Anticoagulant Intensity: INR = 2.5-3.5 Performed By: #### F EBC, CDP, RETCT, PT, PATH, FERI, TROPI, BMPX #### [facility] [address] [place] [address] [phone] Service [employer]: Brennan Daniel MD PT Coag (PPP) [Time] 10.0 s Normal 9.1-12.3 [facility] Comment on above: Performed By: #### F EBC, CDP, RETCT, PT, PATH, FERI, TROPI, BMPX #### [facility] [address] [place] [phone] Service Unit Operator [employer]: Brennan Daniel MD Protime-INRon 01-25-2022 INR Coag (Bld) [Relative time] 0.9 {INR} [facility] Comment on above: Therapeutic Range: Moderate Anticoagulant Intensity: INR = 2.0-3.0 High Anticoagulant Intensity: INR = 2.5-3.5 PT Coag (PPP) [Time] 10 s [facility] [employer] [facility] Surgical Pathologyon 022 Surgical Pathology (NOTE) [id number] [facility] ANATOMIC PATHOLOGY [address] [place] [phone] SURGICAL PATHOLOGY CONSULTATION Patient Name: MISSY SALGADO MR#: [id number] Specimen #[id number] Procedures/Addenda PERIPHERAL BLOOD REPORT Date Ordered: 01/26/2022 Status: Signed Out Date Complete: 01/26/2022 By: Luis Felipe Watson M.D. Date Reported: 01/26/2022 INTERPRETATION Peripheral blood: Macrocytic anemia The patient's vitamin B12 and folate levels are within normal limits. The patient is being treated for multiple myeloma and this may be causing the anemia. Other considerations include other drug effects, liver disease, hypothyroidism, and alcohol. Neutrophilia. Differential considerations include acute infection/inflammatio n, metabolic disturbances, and drug effect. Monocytosis Differential considerations include certain infection, hematologic disorders, collagen vascular diseases, and others. RESULTS-COMMENTS PERIPHERAL BLOOD STUDY CBC: Please see the electronic health record for CBC parameters ([id number], 01/25/22, 04:30). PLATELETS: Adequate platelets. Platelets show normal morphology. LEUKOCYTES: Increased neutrophils and monocytes. White blood cells show normal morphology. There are no blasts. ERYTHROCYTES: Macrocytosis. Anisocytosis. Note: The electronic health record is reviewed. Luis Felipe Watson M.D. Source: A: Peripheral Blood Normal [facility] Comment on above: Performed By: #### F EBC, CDP, RETCT, PT, PATH, FERI, TROPI, BMPX #### [facility] [address] [place] [address] Service Unit Operator [employer]: Brennan Daniel MD Troponinon 01-25-2022 Troponin, High Sens 15 ng/L Normal 0-22 [facility] Comment on above: Result Comment: High Sensitivity Troponin values cannot be compared with other Troponin methodologies. Patients with high levels of Biotin oral intake (i.e >5mg/day) may have falsely decreased Troponin levels. Samples collected within 8 hours of biotin intake may require additional information for diagnosis. Performed By: #### F EBC, CDP, RETCT, PT, PATH, FERI, TROPI, BMPX #### [facility] [address] [place] [address] Service Unit Operator [employer]: Brennan Daniel MD Troponin, High Sensitivity 15 ng/L 0 - 22 ng/L [facility] Comment on above: High Sensitivity Troponin values cannot be compared with other Troponin methodologies. Patients with high levels of Biotin oral intake (i.e >5mg/day) may have falsely decreased Troponin levels. Samples collected within 8 hours of biotin intake may require additional information for diagnosis. [facility] Beam. Troponin, High Sens 18 ng/L Normal 0-22 [facility] Comment on above: Result Comment: High Sensitivity Troponin values cannot be compared with other Troponin methodologies. Patients with high levels of Biotin oral intake (i.e >5mg/day) may have falsely decreased Troponin levels. Samples collected within 8 hours of biotin intake may require additional information for diagnosis. Performed By: #### F EBC, CDP, RETCT, PT, PATH, FERI, TROPI, BMPX #### [facility] [address] [place] [address] Service Unit Operator [employer]: Brennan Daniel MD Troponin, High Sensitivity 18 ng/L 0 - 22 ng/L [facility] Beam. Comment on above: High Sensitivity Troponin values cannot be compared with other Troponin methodologies. Patients with high levels of Biotin oral intake (i.e >5mg/day) may have falsely decreased Troponin levels. Samples collected within 8 hours of biotin intake may require additional information for diagnosis. [facility] Beam. Troponin, High Sens 15 ng/L Normal 0-22 [facility] Comment on above: Result Comment: High Sensitivity Troponin values cannot be compared with other Troponin methodologies. Patients with high levels of Biotin oral intake (i.e >5mg/day) may have falsely decreased Troponin levels. Samples collected within 8 hours of biotin intake may require additional information for diagnosis. Performed By: #### F EBC, CDP, RETCT, PT, PATH, FERI, TROPI, BMPX #### [address] [place] [address] Service Unit Operator [employer]: Brennan Daniel MD Troponin, High Sensitivity 15 ng/L 0 - 22 ng/L [facility] Beam. Comment on above: High Sensitivity Troponin values cannot be compared with other Troponin methodologies. Patients with high levels of Biotin oral intake (i.e >5mg/day) may have falsely decreased Troponin levels. Samples collected within 8 hours of biotin intake may require additional information for diagnosis. [facility] Moonshado Type + Screenon 01-25-2022 Type + Screen Sample Expiration 01/27/2022,2359 Arm Band Number [id number] ABO/Rh(D) A NEGATIVE Antibody Screen POSITIVE Antibody Ident Panagglutinin due to daratumumab Antibody identification performed by [facility], [address] [place] [id number] ARJUN, Anti-IgG Marge Serum POSITIVE Eluted Antibody NEGATIVE Unit Number [id number] Blood Component Type Leukocyte Reduced Red Cell Unit Division 00 Status of Unit TRANSFUSED Transfusion Status OK TO TRANSFUSE Crossmatch Result COMPATIBLE Normal [facility] Comment on above: Performed By: #### F EBC, CDP, RETCT, PT, PATH, FERI, TROPI, BMPX #### [facility] [address] [place] [address] [id number] Service Unit Operator [employer]: Brennan Daniel MD Hemoglobin and Hematocriton 01-24-2022 Hematocrit (Bld) [Volume fraction] 32.8 % Low 40.7 - 50.3 % [facility] Hemoglobin (Bld) [Mass/Vol] 11.7 g/dL Low 13 - 17 g/dL [facility] Interpretation and review of laboratory results Abnormal [facility] Hgb/Hcton 01-24-2022 Hematocrit (Bld) [Volume fraction] 32.8 % Low 40.7-50.3 [facility] Comment on above: Performed By: #### F EBC, CDP, RETCT, PT, PATH, FERI, TROPI, BMPX #### [facility] [address] [place] [address] [id number] Service Unit Operator [employer]: Brennan Daniel MD Hemoglobin (Bld) [Mass/Vol] 11.7 g/dL Low 13.0-17.0 [facility] Comment on above: Performed By: #### F EBC, CDP, RETCT, PT, PATH, FERI, TROPI, BMPX #### [facility] [address] [place], [place] [id number] Service Unit Operator [employer]: Brennan Daniel MD Lactic Acidon 01-24-2022 Lactic Acid,Whole Bl 2.4 mmol/L High 0.7-2.1 [facility] Comment on above: Performed By: #### F EBC, CDP, RETCT, PT, PATH, FERI, TROPI, BMPX #### [facility] [employer] [address] [place] [address] [id number] Service Unit Operator [employer] Well: Brennan Daniel MD Interpretation and review of laboratory results Abnormal [facility] Lactic Acid, Whole Blood 2.4 mmol/L High 0.7 - 2.1 mmol/L [facility] Troponinon 01-24-2022 Troponin, High Sens 17 ng/L Normal 0-22 [facility] Comment on above: Result Comment: High Sensitivity Troponin values cannot be compared with other Troponin methodologies. Patients with high levels of Biotin oral intake (i.e >5mg/day) may have falsely decreased Troponin levels. Samples collected within 8 hours of biotin intake may require additional information for diagnosis. Performed By: #### F EBC, CDP, RETCT, PT, PATH, FERI, TROPI, BMPX #### [facility] [employer] [address] [place] [address] Service Unit Operator [employer]: Brennan Daniel MD Troponin, High Sensitivity 17 ng/L 0 - 22 ng/L [facility] Comment on above: High Sensitivity Troponin values cannot be compared with other Troponin methodologies. Patients with high levels of Biotin oral intake (i.e >5mg/day) may have falsely decreased Troponin levels. Samples collected within 8 hours of biotin intake may require additional information for diagnosis. [facility] CBC W Auto Differential pane l (Bld)on 01-09-2022 Abs Immature Gran 0.03 k/uL <0.10 k/uL [facility] Erythrocyte distribution width (RBC) [Ratio] 13.0 % 11.5 - 15.0 % [facility] Hematocrit (Bld) [Volume fraction] 41.5 % 39.0 - 51.0 % [facility] Hemoglobin (Bld) [Mass/Vol] 13.6 g/dL 13.0 - 17.0 g/dL [facility] MCH (RBC) [Entitic mass] 35.1 pg High 26. 0 - 34.0 pg [facility] MCHC (RBC) [Mass/Vol] 32.8 g/dL 30.5 - 36.0 g/dL [facility] MCV (RBC) [Entitic vol] 107.0 fL High 80.0 - 100.0 fL [facility] Neutrophils (Bld) [#/Vol] 6.86 10*3/uL 1.45 - 7.50 k/uL [facility] Nucleated RBC (Bld) [#/Vol] 10*3/uL <0.01 k/uL [facility] Platelet mean volume (Bld) [Entitic vol] 10.1 fL 9.0 - 12.7 fL [facility] Platelets (Bld) [#/Vol] 227 10*3/uL 150 - 400 k/uL [facility] RBC (Bld) [#/Vol] 3.88 10*6/uL Low 4.20 - 6.0 0 m/uL [facility] WBC (Bld) [#/Vol] 9.84 10*3/uL 3.70 - 11.00 k/uL [facility] PSA, [employer] 12-01-2021 Interpretation and review of laboratory results Abnormal [facility] XR ANKLE GENERAL 3V AP/LAT/O BL LEFTon 10-17-2021 [facility] XR Ankle - left AP and Later al and obliqueon 10-17-2021 IMPRESSION: 1. Tibiotalar osteoarthritis 2. Calcaneal enthesophyte Transcribe Date/Time: Oct 17 2021 3:00P Dictated by: HOWARD ANDERSON MD This examination was interpreted and the report reviewed and electronically signed by: HOWARD ANDERSON MD on Oct 17 2021 3:02PM EST Thank you for allowing us to participate in the care of your patient. Should there be any questions regarding this interpretation, please call [phone]. If you are unable to reach us at the number above, please feel free to contact [facility] eRadiology at [phone]. [email or web address] E_DIVISION OF RADIOLOGY * * *Final Report* * * DATE OF EXAM: Oct 17 2021 2:33PM [id number] [id number] - XR ANKLE 3V AP/LAT/OBL LT / PROCEDURE REASON: multiple diagnoses * * * * Physician Interpretation * * * * RESULT: Left ankle radiographs HISTORY: Multiple myeloma with ankle pain TECHNIQUE: 4 views of the left ankle COMPARISON: None available Results There are mild tibiotalar osteophytes. Chronic cortical irregularity is noted at the distal tibia laterally and posteriorly. Subtalar joints are intact. There are small inferior calcaneal enthesophytes. There are vascular calcifications in the soft tissues. [email or web address] E_DIVISION OF RADIOLOGY Provider, [facility] Dusty g [place] - 10/17/2021 * * *Final Report* * * DATE OF EXAM: Oct 17 2021 2:33PM [id number] [id number] - XR ANKLE 3V AP/LAT/OBL LT / PROCEDURE REASON: multiple diagnoses * * * * Physician Interpretation * * * * RESULT: Left ankle radiographs HISTORY: Multiple myeloma with ankle pain TECHNIQUE: 4 views of the left ankle COMPARISON: None available Results There are mild tibiotalar osteophytes. Chronic cortical irregularity is noted at the distal tibia laterally and posteriorly. Subtalar joints are intact. There are small inferior calcaneal enthesophytes. There are vascular calcifications in the soft tissues. IMPRESSION IMPRESSION: 1. Tibiotalar osteoarthritis 2. Calcaneal enthesophyte Transcribe Date/Time: Oct 17 2021 3:00P Dictated by: HOWARD ANDERSON MD This examination was interpreted and the report reviewed and electronically signed by: HOWARD ANDERSON MD on Oct 17 2021 3:02PM EST Thank you for allowing us to participate in the care of your patient. Should there be any questions regarding this interpretation, please call [phone]. If you are unable to reach us at the number above, please feel free to contact [facility] eRadiology at [phone]. [facility] Radiology Study observation (narrative) Cristiana noonan [facility] XR Ankle - left AP and Later al and obliqueOrdered By: Ccf Provider on 10-17-2021 [facility] PET CT SKULL BASE TO MID THI GHon 05-17-2021 1. Mild metabolic activity associated with the posterior left 9th rib lesion and associated soft tissue mass. 2. No metabolic abnormality identified in the previously described osseous abnormalities in the calvarium, left clavicle and spine. No new site of disease identified. [facility] RIS CONSOLIDATED EXAMINATION: WHOLE BODY PET/CT 05/17/2021 TECHNIQUE: Following IV injection of 12.9 mCi of F 18 -FDG, PET tumor imaging was acquired from the base of the skull to the mid thighs. Computed tomography was used for purposes of attenuation correction and anatomic localization. Fusion imaging was utilized for interpretation. Uptake time 72 mins. Glucose level 95 mg/dl. COMPARISON: Bone survey 03/09/2021. Chest CT 03/03/2021. PET-CT 02/20/2017. HISTORY: ORDERING SYSTEM PROVIDED HISTORY: Multiple myeloma, remission status unspecified (HCC) FINDINGS: HEAD/NECK: No abnormal metabolic activity. CHEST: Soft tissue mass associated with the posterior left 9th rib demonstrates mild metabolic activity (SUV max of 3.5). ABDOMEN/PELVIS: No abnormal metabolic activity. Intermediate density is present in the left inguinal canal consistent with inguinal hernia repair is noted with mild associated metabolic activity. BONES/SOFT TISSUE: Mild metabolic activity in the posterior left 9th rib with associated soft tissue mass, as described above. Previously described lucent lesions in the calvarium, medial left clavicle and spine are without appreciable metabolic activity. Postoperative findings in the lower thoracic spine are noted. Relatively diffuse muscular activity is present in the left shoulder and lower extremities. INCIDENTAL CT FINDINGS: Calcified atheromatous plaque and coronary calcification. Diverticulosis. [facility] Evert Larsen MD - 05/17/2021 EXAMINATION: WHOLE BODY PET/CT 05/17/2021 TECHNIQUE: Following IV injection of 12.9 mCi of F 18 -FDG, PET tumor imaging was acquired from the base of the skull to the mid thighs. Computed tomography was used for purposes of attenuation correction and anatomic localization. Fusion imaging was utilized for interpretation. Uptake time 72 mins. Glucose level 95 mg/dl. COMPARISON: Bone survey 03/09/2021. Chest CT 03/03/2021. PET-CT 02/20/2017. HISTORY: ORDERING SYSTEM PROVIDED HISTORY: Multiple myeloma, remission status unspecified (HCC) FINDINGS: HEAD/NECK: No abnormal metabolic activity. CHEST: Soft tissue mass associated with the posterior left 9th rib demonstrates mild metabolic activity (SUV max of 3.5). ABDOMEN/PELVIS: No abnormal metabolic activity. Intermediate density is present in the left inguinal canal consistent with inguinal hernia repair is noted with mild associated metabolic activity. BONES/SOFT TISSUE: Mild metabolic activity in the posterior left 9th rib with associated soft tissue mass, as described above. Previously described lucent lesions in the calvarium, medial left clavicle and spine are without appreciable metabolic activity. Postoperative findings in the lower thoracic spine are noted. Relatively diffuse muscular activity is present in the left shoulder and lower extremities. INCIDENTAL CT FINDINGS: Calcified atheromatous plaque and coronary calcification. Diverticulosis. IMPRESSION: 1. Mild metabolic activity associated with the posterior left 9th rib lesion and associated soft tissue mass. 2. No metabolic abnormality identified in the previously described osseous abnormalities in the calvarium, left clavicle and spine. No new site of disease identified. [employer] Work Phone: Radiology Study observation (narrative) [facility] Work Phone: PET CT SKULL BASE TO MID THI GHOrdered By: Evert Presley on 05-17-2021 [employer] Work Phone: Protein, urine, timedon 05-01 Hours Collected 24 h [employer] [facility] Protein (U) [Mass/Vol] 5 mg/dL Dc [employer] Protein, 24H Urine 130 <151 mg/2 4 h [employer] Protein,Tot Timed Ur NOT REPORTED mg/X h Dc [employer] Volume 2600 mL [facility] CBC AND ELECTRONIC DIFFon Basophils (Bld) [#/Vol] 0.08 10*3/uL Normal 0.00-0.09 [facility] Comment on above: Performed By: #### L [id number] #### [facility] (DEFAULT) [address] [address] Basophils/100 WBC (Bld) 1.4 % Normal [facility] Comment on above: Performed By: #### L [id number] #### [facility] (DEFAULT) [address] [address] DIFF STATUS Electronic Differential Normal [facility] Comment on above: Performed By: #### L [id number] #### [facility] (DEFAULT) [address] [place] [address] Eosinophils (Bld) [#/Vol] 0.36 10*3/uL Normal 0.00-0.48 [facility] Comment on above: Performed By: #### L [id number] #### [facility] (DEFAULT) [address] [place] [address] Eosinophils/100 WBC (Bld) 6.4 % Normal [facility] Comment on above: Performed By: #### L [id number] #### [facility] (DEFAULT) [address] [address] Hematocrit (Bld) [Volume fraction] 39.6 % Normal 39.6-48.8 [facility] Comment on above: Performed By: #### L [id number] #### [facility] (DEFAULT) [address] [address] Hemoglobin (Bld) [Mass/Vol] 12.8 g/dL Low 13.4-16.8 [facility] Comment on above: Performed By: #### L [id number] #### [facility] (DEFAULT) [address] [address] Immature Grans % 0.4 % Normal [facility] Comment on above: Performed By: #### L [id number] #### [facility] (DEFAULT) [address] [address] Immature Grans Absolute <0.04 Normal <=0.08 [facility] Comment on above: Performed By: #### L [id number] #### [facility] (DEFAULT) [address] [address] Lymphocytes (Bld) [#/Vol] 1.49 10*3/uL Normal 0.83-3.57 [facility] Comment on above: Performed By: #### L [id number] #### [facility] (DEFAULT) [address] [address] Lymphocytes/100 WBC (Bld) 26.6 % Normal [facility] Comment on above: Performed By: #### L [id number] #### [facility] (DEFAULT) [address] [address] MCV (RBC) [Entitic vol] 105.0 fL High 79.0-94.5 [facility] Comment on above: Performed By: #### L [id number] #### [facility] (DEFAULT) [address] [address] Mean Cell Hgb 34.0 pg High 26.1-33.3 [facility] Comment on above: Performed By: #### L [id number] #### [facility] (DEFAULT) [address] [address] Mean Cell Hgb Conc 32.3 g/dL Normal 31.9-36.5 [facility] Comment on above: Performed By: #### L [id number] #### [facility] (DEFAULT) [address] [address] Monocytes (Bld) [#/Vol] 0.82 10*3/uL Normal 0.24-0.93 [facility] Comment on above: Performed By: #### L [id number] #### [facility] (DEFAULT) [address] [address] Monocytes/100 WBC (Bld) 14.6 % Normal [facility] Comment on above: Performed By: #### L [id number] #### [facility] (DEFAULT) [address] [address] Nucleated RBC 0.0 /100 WBC Normal <=0.2 [facility] Comment on above: Performed By: #### L [id number] #### [facility] (DEFAULT) [address] [address] Platelet mean volume (Bld) [Entitic vol] 10.0 fL Normal 8.7-12.3 [facility] Comment on above: Performed By: #### L [id number] #### [facility] (DEFAULT) [address] [address] Platelets (Bld) [#/Vol] 208 10*3/uL Normal 146-337 [facility] Comment on above: Performed By: #### L [id number] #### [facility] (DEFAULT) [address] [address] RBC (Bld) [#/Vol] 3.77 10*6/uL Low 4.38-5.83 [facility] Comment on above: Performed By: #### L [id number] #### [facility] (DEFAULT) [address] [place] [address] RBC Distribution 14.3 % Normal 10.9-14.3 [facility] Comment on above: Performed By: #### L [id number] #### [facility] (DEFAULT) [address] [place] [address] Segs + Bands Auto 50.6 % Normal [facility] Comment on above: Performed By: #### L [id number] #### [facility] (DEFAULT) [address] [place] [address] Segs + Bands,Absolute Auto 2.84 K/uL Normal 1.57-6.19 [facility] Comment on above: Performed By: #### L [id number] #### [facility] (DEFAULT) [address] [place] [address] WBC (Bld) [#/Vol] 5.61 10*3/uL Normal 3.73-10.10 [facility] Comment on above: Performed By: #### L [id number] #### [facility] (DEFAULT) [address] [place] [address] COMPREHENSIVE METABOLIC PANE Robin 05-08-2021 ALP [Catalytic activity/Vol] 74 U/L Normal 32-126 [facility] Comment on above: Performed By: #### C MPN, LDO #### [facility] (DEFAULT) [address] [place] [address] ALT [Catalytic activity/Vol] 14 U/L Normal 10-52 [facility] Comment on above: Performed By: #### C MPN, LDO #### [facility] (DEFAULT) [address] [place] [address] Anion gap [Moles/Vol] 9 mmol/L Normal 7-17 [facility] Comment on above: Performed By: #### C MPN, LDO #### [facility] (DEFAULT) [address] [place] [address] AST [Catalytic activity/Vol] 20 U/L Normal 14-40 [facility] Comment on above: Performed By: #### C MPN, LDO #### [facility] (DEFAULT) [address] [place] [address] Bilirubin [Mass/Vol] 0.7 mg/dL Normal <1.5 [facility] Comment on above: Performed By: #### C MPN, LDO #### [facility] (DEFAULT) [address] [place] [address] Calcium [Mass/Vol] 8.8 mg/dL Normal 8.6-10.5 [facility] Comment on above: Performed By: #### C MPN, LDO #### [facility] (DEFAULT) [address] [place] [address] Chloride [Moles/Vol] 102 mmol/L Normal 98-108 [facility] Comment on above: Performed By: #### C MPN, LDO #### [facility] (DEFAULT) [address] [place] [address] CO2 [Moles/Vol] 26 mmol/L Normal 22-30 [facility] Comment on above: Performed By: #### C MPN, LDO #### [facility] (DEFAULT) [address] [place] [address] Creatinine [Mass/Vol] 1.36 mg/dL High 0.70-1.30 [facility] Comment on above: Performed By: #### C MPN, LDO #### [facility] (DEFAULT) [address] [place] [address] EST GFR, >=60 Normal >=60 [facility] Comment on above: Performed By: #### C MPN, LDO #### [facility] (DEFAULT) [address] [place] [address] EST GFR,Non 51 mL/min/1.73sqM Low >=60 [facility] Comment on above: Performed By: #### C MPN, LDO #### [facility] (DEFAULT) [address] [place] [address] Glucose [Mass/Vol] 105 mg/dL High 70-99 [facility] Comment on above: Performed By: #### C MPN, LDO #### [facility] (DEFAULT) [address] [place] [address] Osmolality [Osmolality] 282 mosm/kg Normal 278-305 [facility] Comment on above: Performed By: #### C MPN, LDO #### [facility] (DEFAULT) [address] [place] [address] Potassium [Moles/Vol] 4.0 mmol/L Normal 3.5-5.0 [facility] Comment on above: Performed By: #### C MPN, LDO #### [facility] (DEFAULT) [address] [place] [address] Protein [Mass/Vol] 7.4 g/dL Normal 6.4-8.3 [facility] Comment on above: Performed By: #### C MPN, LDO #### [facility] (DEFAULT) [address] [place] [address] Sodium [Moles/Vol] 133 mmol/L Normal 133-143 [facility] Comment on above: Performed By: #### C MPN, LDO #### [facility] (DEFAULT) [address] [place] [address] Urea nitrogen [Mass/Vol] 19 mg/dL Normal 7-22 [facility] Comment on above: Performed By: #### C MPN, LDO #### [facility] (DEFAULT) [address] [place] [address] Urea nitrogen/Creatinine [Mass ratio] 14 mg/mg Normal [facility] Comment on above: Performed By: #### C MPN, LDO #### [facility] (DEFAULT) [address] [place] [address] IMMUNOFIXATION SERUMon 05-08 Monoclonal 1 213.0 mg/dL High <=0.0 [facility] Comment on above: Performed By: #### P SD, SIMFXB, PSE #### [facility] (DEFAULT) [address] [place] [address] REVIEWED BY: Jairo Mcintosh MD Normal [facility] Comment on above: Performed By: #### P SD, SIMFXB, PSE #### [facility] (DEFAULT) [address] [place] [address] Serum Immunofixation IgG lambda monoclon al protein is present. Normal [facility] Comment on above: Performed By: #### P SD, SIMFXB, PSE #### [facility] (DEFAULT) [address] [address] IMMUNOGLOBULIN FREE CHAINSon 05-08-2021 [place] Free Light Chains 72.9 mg/L High 3.9-26.0 [facility] Comment on above: Order Comment: Undet ected antigen excess is a rare event but cannot be excluded. If these free light chain results do not agree with other clinical or laboratory findings, or if the sample is from a patient that has previously demonstrated antigen excess, the result must be checked by retesting at a higher sample dilution. Results should always be interpreted in conjunction with other laboratory tests and clinical evidence; any anomalies should be discussed with the testing laboratory. Performed By: #### I FLC #### [facility] (DEFAULT) [address] [address] [place]/Lambda Ratio 0.64 Normal 0.51-1.72 [facility] Comment on above: Order Comment: Undet ected antigen excess is a rare event but cannot be excluded. If these free light chain results do not agree with other clinical or laboratory findings, or if the sample is from a patient that has previously demonstrated antigen excess, the result must be checked by retesting at a higher sample dilution. Results should always be interpreted in conjunction with other laboratory tests and clinical evidence; any anomalies should be discussed with the testing laboratory. Performed By: #### I FLC #### [facility] (DEFAULT) [address] [place] [address] Lambda Free Light Chains 114.6 mg/L High 6.4-22.1 [facility] Comment on above: Order Comment: Undet ected antigen excess is a rare event but cannot be excluded. If these free light chain results do not agree with other clinical or laboratory findings, or if the sample is from a patient that has previously demonstrated antigen excess, the result must be checked by retesting at a higher sample dilution. Results should always be interpreted in conjunction with other laboratory tests and clinical evidence; any anomalies should be discussed with the testing laboratory. Performed By: #### I FLC #### [facility] (DEFAULT) [address] [place] [address] IMMUNOGLOBULINS IGG IGA IGMo n 05-08-2021 IgA [Mass/Vol] 616 mg/dL High 90-410 [facility] Comment on above: Performed By: #### Q IMM #### [facility] (DEFAULT) [address] [address] IgG [Mass/Vol] 1866 mg/dL High 600-1,560 [facility] Comment on above: Performed By: #### Q IMM #### [facility] [facility] (DEFAULT) [address] [address] IgM [Mass/Vol] 50 mg/dL Normal 30-360 [facility] Comment on above: Performed By: #### Q IMM #### [facility] (DEFAULT) [address] [address] LACTATE DEHYDROGENASEon LD Total 171 U/L Normal 100-190 [facility] Comment on above: Performed By: #### C MPN, LDO #### [facility] (DEFAULT) [address] [address] PROTEIN ELECTROPHORESISon Albumin [Mass/Vol] 3.4 g/dL Low 3.5-5.0 [facility] Comment on above: Performed By: #### P SD, SIMFXB, PSE #### [facility] (DEFAULT) [address] [place] [id number] Performed By: #### C MPN, LDO #### [facility] (DEFAULT) [address] [place] [address] Alpha 1 0.3 g/dL Normal 0.2-0.4 [facility] Comment on above: Performed By: #### P SD, SIMFXB, PSE #### [facility] (DEFAULT) [address] [place] [address] Alpha 2 0.7 g/dL Normal 0.5-1.0 [facility] Comment on above: Performed By: #### P SD, SIMFXB, PSE #### [facility] (DEFAULT) [address] [place] [address] Beta 1.0 g/dL Normal 0.5-1.1 [facility] Comment on above: Performed By: #### P SD, SIMFXB, PSE #### [facility] (DEFAULT) [address] [place] [address] Gamma 1.8 g/dL High 0.6-1.5 [facility] Comment on above: Performed By: #### P SD, SIMFXB, PSE #### [facility] (DEFAULT) [address] [place] [address] Interpretation By: Jairo Mcintosh MD Normal [facility] Comment on above: Performed By: #### P SD, SIMFXB, PSE #### [facility] (DEFAULT) [address] [place] [address] Spe Interpretation Normal [facility] Comment on above: Result Comment: Ther e is a zone of restriction in the gamma region with normal remaining polyclonal gammaglobulins. This pattern suggests monoclonal or oligoclonal proteins that may occur in chronic inflammatory diseases (e.g., of liver), or may be idiopathic, or may represent a monoclonal gammopathy. The albumin is decreased. This may occur in protein loss, malnutrition, liver disease, and (or) as an acute phase reactant. Performed By: #### P SD, SIMFXB, PSE #### [facility] (DEFAULT) [address] [place] [address] SPE SERUM TOTAL PROTEINon Protein [Mass/Vol] 7.1 g/dL Normal 6.4-8.3 [facility] Comment on above: Performed By: #### P SD, SIMFXB, PSE #### [facility] (DEFAULT) [address] [place] [address] ECHO Complete 2D W Doppler W ColorOrdered By: Beto Stockton on 04-27-2021 Transthoracic Echocardiography Report (TTE) Patient Name NAOMI LOUIS Date of Study 04/27/2021 M Date of 1940 Gender Male Age 81 year(s) Race Room Number 1001 Height: 72 inch, 182.88 cm Corporate ID [id number] Weight: 190 pounds, 86.2 kg # Patient Acct [id number] BSA: 2.08 m^2 BMI: 25.77 # kg/m^2 MR # [id number] [employer] Kanika Moody Interpreting Physician Luis Enrique Jennings Fellow Referring Nurse Practitioner Interpreting Referring Physician BETO STOCKTON MD Fellow Type of Study TTE procedure:2D Echocardiogram, M-Mode, Doppler, Color Doppler. Procedure Date Date: 04/27/2021 Start: 02:20 PM Study Location: [facility] Technical Quality: Fair visualization Indications:STEMI. History / Tech. Comments: Procedure explained to patient. Study done at the bedside. Patient Status: Inpatient Height: 72 inches Weight: 190 pounds BSA: 2.08 m^2 BMI: 25.77 kg/m^2 Allergies - *Unlisted:(amoxicilla n). CONCLUSIONS Summary Left ventricle is normal in size. Global left ventricular systolic function appears low normal. Calculated EF via Torres's method is 50 %. Trivial tricuspid regurgitation. Trivial pulmonic insufficiency. Signature FINDINGS Left Atrium Left atrium is normal in size. Left Ventricle Left ventricle is normal in size. Global left ventricular systolic function appears normal. Estimated ejection fraction is 50-55 % . Calculated EF via Torres's method is 50 %. Normal left ventricular wall thickness. Right Atrium Right atrium is normal in size. Right Ventricle Normal right ventricular size and function. Mitral Valve Normal mitral valve structure. No mitral regurgitation. No mitral stenosis. Aortic Valve Aortic valve structure and function normal. Aortic valve is trileaflet. No aortic insufficiency. No aortic stenosis. Tricuspid Valve Normal tricuspid valve leaflets. Trivial tricuspid regurgitation. No tricuspid stenosis. Insignificant tricuspid regurgitation, unable to estimate RVSP. Pulmonic Valve Pulmonic valve is normal in structure and function. Trivial pulmonic insufficiency. No evidence of pulmonic stenosis. Pericardial Effusion No pericardial effusion. Miscellaneous Normal aortic root dimension. The ascending aorta is normal in size. E/E' average = 8.85. IVC normal diameter & inspiratory collapse indicating normal RA filling pressure . M-mode / 2D Measurements & Calculations: LVIDd:4.7 cm(3.7 - 5.6 cm) Diastolic Volume:43.97 ml LVIDs:3.5 cm(2.2 - 4.0 cm) Systolic Volume:21.9 ml IVSd:0.9 cm(0.6 - 1.1 cm) Aortic Root:3.3 cm(2.0 - 3.7 cm) LVPWd:1 cm(0.6 - 1.1 cm) LA Dimension: 3 cm(1.9 - 4.0 cm) Fractional Shortenin.53 % LA volume/Index: 33.67 ml /16m^2 Calculated LVEF (%): 50.19 % LVOT:2.2 cm RVDd:3.6 cm Mitral: Aortic Valve Area (P1/2-Time): 2.08 cm^2 Peak Velocity: 0.98 m/s Peak E-Wave: 0.53 m/s Mean Velocity: 0.73 m/s Peak A-Wave: 0.78 m/s Peak Gradient: 3.81 mmHg E/A Ratio: 0.68 Mean Gradient: 2 mmHg Peak Gradient: 1.13 mmHg Mean Gradient: 1 mmHg Deceleration Time: 349 msec Area (continuity): 3.86 cm^2 P1/2t: 106 msec AV VTI: 19.2 cm Area (continuity): 2.95 cm^2 Mean Velocity: 0.53 m/s Pulmonic: Peak Velocity: 1.33 m/s Peak Gradient: 7.08 mmHg Diastology / Tissue Doppler Septal Wall E' velocity:0.06 m/s Septal Wall E/E':9.4 Lateral Wall E' velocity:0.06 m/s Lateral Wall E/E':8.3 [employer] Work Phone: Julien, pn Incoming Cardio Results From [facility]/ - 04/27/2021 3:57 PM EDT Transthoracic Echocardiography Report (TTE) Patient Name NAOMI LOUIS Date of Study 04/27/2021 M Date of 1940 Gender Male Age 81 year(s) Race Room Number 1001 Height: 72 inch, 182.88 cm Corporate ID [id number] Weight: 190 pounds, 86.2 kg # Patient Acct [id number] BSA: 2.08 m^2 BMI: 25.77 # kg/m^2 MR # [id number] [employer] HeidyKanika Interpreting Physician Luis Enrique Jennings Fellow Referring Nurse Practitioner Interpreting Referring Physician BETO STOCKTON MD Fellow Type of Study TTE procedure:2D Echocardiogram, M-Mode, Doppler, Color Doppler. Procedure Date Date: 04/27/2021 Start: 02:20 PM Study Location: [facility] Technical Quality: Fair visualization Indications:STEMI. History / Tech. Comments: Procedure explained to patient. Study done at the bedside. Patient Status: Inpatient Height: 72 inches Weight: 190 pounds BSA: 2.08 m^2 BMI: 25.77 kg/m^2 Allergies - *Unlisted:(katherineicilla n). CONCLUSIONS Summary Left ventricle is normal in size. Global left ventricular systolic function appears low normal. Calculated EF via Torres's method is 50 %. Trivial tricuspid regurgitation. Trivial pulmonic insufficiency. Signature - - - - FINDINGS Left Atrium Left atrium is normal in size. Left Ventricle Left ventricle is normal in size. Global left ventricular systolic function appears normal. Estimated ejection fraction is 50-55 % . Calculated EF via Torres's method is 50 %. Normal left ventricular wall thickness. Right Atrium Right atrium is normal in size. Right Ventricle Normal right ventricular size and function. Mitral Valve Normal mitral valve structure. No mitral regurgitation. No mitral stenosis. Aortic Valve Aortic valve structure and function normal. Aortic valve is trileaflet. No aortic insufficiency. No aortic stenosis. Tricuspid Valve Normal tricuspid valve leaflets. Trivial tricuspid regurgitation. No tricuspid stenosis. Insignificant tricuspid regurgitation, unable to estimate RVSP. Pulmonic Valve Pulmonic valve is normal in structure and function. Trivial pulmonic insufficiency. No evidence of pulmonic stenosis. Pericardial Effusion No pericardial effusion. Miscellaneous Normal aortic root dimension. The ascending aorta is normal in size. E/E' average = 8.85. IVC normal diameter & inspiratory collapse indicating normal RA filling pressure . M-mode / 2D Measurements & Calculations: LVIDd:4.7 cm(3.7 - 5.6 cm) Diastolic Volume:43.97 ml LVIDs:3.5 cm(2.2 - 4.0 cm) Systolic Volume:21.9 ml IVSd:0.9 cm(0.6 - 1.1 cm) Aortic Root:3.3 cm(2.0 - 3.7 cm) LVPWd:1 cm(0.6 - 1.1 cm) LA Dimension: 3 cm(1.9 - 4.0 cm) Fractional Shortenin.53 % LA volume/Index: 33.67 ml /16m^2 Calculated LVEF (%): 50.19 % LVOT:2.2 cm RVDd:3.6 cm Mitral: Aortic Valve Area (P1/2-Time): 2.08 cm^2 Peak Velocity: 0.98 m/s Peak E-Wave: 0.53 m/s Mean Velocity: 0.73 m/s Peak A-Wave: 0.78 m/s Peak Gradient: 3.81 mmHg E/A Ratio: 0.68 Mean Gradient: 2 mmHg Peak Gradient: 1.13 mmHg Mean Gradient: 1 mmHg Deceleration Time: 349 msec Area (continuity): 3.86 cm^2 P1/2t: 106 msec AV VTI: 19.2 cm Area (continuity): 2.95 cm^2 Mean Velocity: 0.53 m/s Pulmonic: Peak Velocity: 1.33 m/s Peak Gradient: 7.08 mmHg Diastology / Tissue Doppler Septal Wall E' velocity:0.06 m/s Septal Wall E/E':9.4 Lateral Wall E' velocity:0.06 m/s Lateral Wall E/E':8.3 [employer] Phone: [employer] Phone: CBCOrdered By: Nayla Echols as on 04-26-2021 Hematocrit (Bld) [Volume fraction] 38.6 % Low 40.7 - 50.3 % [employer] Phone: Hemoglobin.gastrointesti nal spec 1 Ql (Stl) 12.4 g/dL Low 13.0 - 17.0 g/dL [facility] Phone: Interpretation and review of laboratory results Abnormal [employer] Phone: MCH (RBC) [Entitic mass] 34.5 pg High 25. 2 - 33.5 pg [employer] Phone: MCHC (RBC) [Mass/Vol] 32.1 g/dL 28.4 - 34.8 g/dL [employer] Phone: MCV (RBC) [Entitic vol] 107.5 fL High 82.6 - 102.9 fL [facility] Phone: NRBC Automated 0.0 0.0 per 100 WBC [facility] Phone: Platelet distribution width (Bld) [Ratio] 14.1 % 11.8 - 14.4 % [employer] Phone: Platelet mean volume (Bld) [Entitic vol] 10.2 fL 8.1 - 13.5 fL [facility] Phone: Platelets (Bld) [#/Vol] 199 10*3/uL [employer] Phone: RBC (Bld) [#/Vol] 3.59 10*6/uL Low 4.21 - 5.7 7 m/uL [facility] Phone: WBC (Bld) [#/Vol] 7.3 10*3/uL [facility] Phone: [employer] Phone: Comprehensive Metabolic Pane l w/ Reflex to MGOrdered By: Nayla Carbajal on 04-26-2021 Albumin [Mass/Vol] 3.1 g/dL Low 3.5 - 5.2 g/dL [facility] Phone: Albumin/Globulin [Mass ratio] 0.8 {ratio} Low [facility] Phone: ALP (Bld) [Catalytic activity/Vol] 76 U/L 40 - 129 U/L [facility] Phone: ALT [Catalytic activity/Vol] 24 U/L 5 - 41 U/L [facility] Phone: Anion gap [Moles/Vol] 9 mmol/L 9 - 17 mmol/L [facility] Phone: AST [Catalytic activity/Vol] 97 U/L High <40 [facility] Phone: Bilirubin [Mass/Vol] 0.38 mg/dL 0.3 - 1 .2 mg/dL [facility] Phone: Calcium [Mass/Vol] 8.9 mg/dL 8.6 - 10. 4 mg/dL [facility] Phone: Chloride [Moles/Vol] 104 mmol/L 98 - 10 7 mmol/L [facility] Phone: CO2 [Moles/Vol] 25 mmol/L 20 - 31 mmol/L [facility] Phone: Creatinine [Mass/Vol] 1.25 mg/dL High 0.70 - 1.20 mg/dL [facility] Phone: Free PSA/Total PSA [Mass fraction] 7.0 g/dL 6.4 - 8.3 g/dL [facility] Phone: GFR >60 >60 mL/min [employer] Phone: GFR Non- 56 mL/min Low >60 [facility] Phone: GFR/1.73 sq M.predicted MDRD (S/P/Bld) [Vol rate/Area] [facility] Phone: Comment on above: Average GFR for 70 o r more years old: 75 mL/min/1.73sq m Chronic Kidney Disease: <60 mL/min/1.73sq m Kidney failure: <15 mL/min/1.73sq m eGFR calculated using average adult body mass. Additional eGFR calculator available at: http://www.MXP4/multiple_crcl_2012.htm GFR/1.73 sq M.predicted MDRD (S/P/Bld) [Vol rate/Area] NOT REPORTED [facility] Phone: Glucose [Mass/Vol] 109 mg/dL High 70 - 99 mg/dL [facility] Phone: Interpretation and review of laboratory results Abnormal [employer] Phone: Potassium [Moles/Vol] 4.4 mmol/L 3.7 - 5.3 mmol/L [facility] Phone: Sodium [Moles/Vol] 138 mmol/L 135 - 144 mmol/L [employer] Phone: Urea nitrogen (BldV) [Mass/Vol] 16 mg/dL 8 - 23 mg/dL [employer] Work Phone: Urea nitrogen/Creatinine (Bld) [Mass ratio] NOT REPORTED [facility] Work Phone: [facility] Work Phone: Brain Natriuretic PeptideOrd ered By: Marci Reid on 04-25-2021 BNP Interpretation NOT REPORTED [facility] [employer] Work Phone: Interpretation and review of laboratory results Abnormal [facility] Work Phone: Natriuretic peptide B (Bld) [Mass/Vol] 395 pg/mL High <300 [facility] Work Phone: Comment on above: An age-independent cutoff point of 300 pg/ml has a 98% negative predictive value excluding acute heart failure. [facility] Work Phone: CBC Auto DifferentialOrdered By: Marci Reid on 04-25-2021 [employer] # 0.21 [employer] [facility] Work Phone: Absolute Immature Granulocyte 0.04 [facility] Work Phone: Absolute Lymph # 2.06 [facility] [employer] Work Phone: [facility] Tate # 0.84 [facility] Work Phone: Basophils (Bld) [#/Vol] 0.10 10*3/uL [facility] Work Phone: Basophils/100 WBC (Bld) 1 % 0 - 2 % M [facility] [employer] Work Phone: Differential Type NOT REPORTED [facility] Work Phone: Eosinophils/100 WBC (Bld) 3 % 1 - 4 % [facility] [employer] Work Phone: Hematocrit (Bld) [Volume fraction] 40.9 % 40.7 - 50.3 % [facility] Work Phone: Hemoglobin.gastrointesti nal spec 1 Ql (Stl) 13.1 g/dL 13.0 - 17.0 g/dL [employer] Phone: Immature granulocytes/100 WBC (Bld) 1 % High 0 [employer] Phone: Interpretation and review of laboratory results Abnormal [employer] Phone: Lymphocytes/100 WBC (Bld) 26 % 24 - 43 % [employer] Phone: MCH (RBC) [Entitic mass] 34.2 pg High 25. 2 - 33.5 pg [employer] Phone: MCHC (RBC) [Mass/Vol] 32.0 g/dL 28.4 - 34.8 g/dL [employer] Phone: MCV (RBC) [Entitic vol] 106.8 fL High 82.6 - 102.9 fL [employer] Phone: Monocytes/100 WBC (Bld) 11 % 3 - 12 % M [employer] Phone: NRBC Automated 0.0 0.0 per 100 WBC [employer] Phone: Platelet distribution width (Bld) [Ratio] 13.8 % 11.8 - 14.4 % [employer] Phone: Platelet Estimate NOT REPORTED [employer] Phone: Platelet mean volume (Bld) [Entitic vol] 9.9 fL 8.1 - 13.5 fL [employer] Phone: Platelets (Bld) [#/Vol] 218 10*3/uL [employer] Phone: RBC (Bld) [#/Vol] 3.83 10*6/uL Low 4.21 - 5.7 7 m/uL [employer] Phone: RBC (Bld) [#/Vol] NOT REPORTED [employer] Phone: Segmented neutrophils/100 WBC (Bld) 58 % 36 - 65 % [employer] Work Phone: Segs Absolute 4[employer]60 [employer] Work Phone: WBC (Bld) [#/Vol] 7.9 10*3/uL [employer] Work Phone: WBC (Bld) [#/Vol] NOT REPORTED [employer] Work Phone: [employer] Work Phone: Catheterization and angiogra phy procedure details panelOrdered By: Mario Alberto Conner on 04-25-2021 Cardiac Diagnostic + PCI Report Demographics Patient NAOMI Vaughan Date of Study 04/25/2021 Name Date of 1940 Gender Male Age 81 year(s) Race Room [id number]^DALILA^MARIO ALBERTO Height: 72 inch, 182.88 cm Number Corporate [id number] Weight: 190 pounds, 86.2 kg ID # Patient [id number] BSA: 2.08 m^2 BMI: 25.77 kg/m^2 Acct # MR # [id number] Performing Physician Mario Alberto Conner Referring Physician # Assisting Physician Procedure Procedure Type: Diagnostic procedure: Lt Heart, Coronary Angio, LVgram PCI procedure: PTCA:, RCA and / or branches Complications: - No complication Indications: - STEMI patient Conclusions Procedure Summary Distal RCA and RPL stent thrombosis. Successful angioplasty only of distal RCA previously placed stent and RPL stent. Significant disease of proximal LAD. LVEF 55%. Recommendations Medical therapy as needed. Risk factor modification. Routine Post Stent Orders. Review films in CT surgery conference for high risk PCI of LAD. Signature - - Angiographic Findings Cardiac Arteries and Lesion Findings LMCA: Mild irregularities 20-30%.Short vessel LAD: has severe calcification with eccentric 85% stenosis. The mid segment has 40% stenosis. LCx: has proximal 50% stenosis. RCA: has proximal 30% stenosis and distal 100% occlusion. Lesion on Dist RCA: Distal subsection.100% stenosis 18 mm length reduced to 0%. Pre procedure BRUNO 0 flow was noted. Post Procedure BRUNO III flow was present. Good runoff was present. The lesion was diagnosed as Moderate Risk (B). The lesion was discrete and eccentric.The lesion showed with irregular contour, mild angulation and mild tortuosity. Comments:instent thrombosis Devices used - Euphora Balloon 3.0mm x 12mm. 4 inflation(s) to a max pressure of: 8 odilon. - Euphora Balloon 2.0mm x 12mm. 3 inflation(s) to a max pressure of: 15 odilon. - NC Euphora Balloon 3.0mm x 12mm. 5 inflation(s) to a max pressure of: 15 odilon. - NC Euphora Balloon 3.5mm x 8mm. 5 inflation(s) to a max pressure of: 15 odilon. Lesion on 1st RPL: 100% stenosis reduced to 0%. Pre procedure BRUNO 0 flow was noted. Post Procedure BRUNO III flow was present. Good runoff was present. The lesion was diagnosed as Moderate Risk (B). The lesion was discrete and eccentric.The lesion showed with irregular contour, mild angulation and mild tortuosity. Comments:instent thrombosis. Devices used - Euphora Balloon 2.0mm x 12mm. 5 inflation(s) to a max pressure of: 15 odilon. Coronary Tree Dominance: Right LV Analysis LV function assessed as:Normal. Ejection Fraction + --------+---+ !Method !EF%! + --------+---+ !LV gram !55 ! + --------+---+ LV Segment Contractility 1 - Normal 3 - Mild 5 - Severe 7 - Dyskinesis hypokinesis hypokinesis 2 - 4 - Moderate 6 - Akinesis 8 - Aneurysm Hypokinesis hypokinesis Procedure Data Procedure Start Time: 04/25/2021 11:35. Procedure End Time: 04/25/2021 12:27. Diagnostic Cath Status: Emergency Interventional Cath Status: Emergency Entry Locations - Retrograde Percutaneous access was performed through the Right Femoral artery. A 6 Fr sheath was inserted. Hemostasis was successfully obtained using 6 Fr. Angioseal. Procedure Medications: - Dopamine I.V. drip 7.5 ml/hr. - Lidocaine HCl 1% 10mg/ml S.Q. 10 ml. - Oxygen NC 2 l/min. - Angiomax I.V. bolus 13 ml. - Angiomax I.V. drip 24.1 ml/hr. - Fentanyl I.V. 25 mcg. - Atropine 0.5 mg. - Dopamine I.V. drip 7.5 ml/hr. - Nitroglycerin I.C. 100 mcg. - Dopamine I.V. drip 5 ml/hr. - Dopamine I.V. drip 15 ml/hr. - Ephedrine I.V. 10 mg. - Zofran I.V. 4 mg. - Dopamine I.V. drip 15 ml/hr. - Brilinta P.O. 180 mg. - Aspirin P.O. 324 mg. Catheters and Wires: - 6F Catheter JR 4 was used for Left ventriculography. - 6F Catheter JR 4 was used for Right coronary angiography. - 6F Catheter JR 4 125 cm was used for Right coronary angiography. - 6F Catheter JL 4 was used for Left coronary angiography. (more content not included)... [employer] Work Phone: Julien, pn Incoming Cardio Results From [facility]/ArriveBefore - 04/25/2021 12:30 PM EDT Cardiac Diagnostic + PCI Report Demographics Patient NAOMI Vaughan Date of Study 04/25/2021 Name Date of 1940 Gender Male Age 81 year(s) Race Room [id number]^DALILA^MARIO ALBERTO Height: 72 inch, 182.88 cm Number Corporate [id number] Weight: 190 pounds, 86.2 kg ID # Patient [id number] BSA: 2.08 m^2 BMI: 25.77 kg/m^2 Acct # MR # [id number] Performing Physician Mario Alberto Conner Referring Physician # Assisting Physician Procedure Procedure Type: Diagnostic procedure: Lt Heart, Coronary Angio, LVgram PCI procedure: PTCA:, RCA and / or branches Complications: - No complication Indications: - STEMI patient Conclusions Procedure Summary Distal RCA and RPL stent thrombosis. Successful angioplasty only of distal RCA previously placed stent and RPL stent. Significant disease of proximal LAD. LVEF 55%. Recommendations Medical therapy as needed. Risk factor modification. Routine Post Stent Orders. Review films in CT surgery conference for high risk PCI of LAD. Signature - - Angiographic Findings Cardiac Arteries and Lesion Findings LMCA: Mild irregularities 20-30%.Short vessel LAD: has severe calcification with eccentric 85% stenosis. The mid segment has 40% stenosis. LCx: has proximal 50% stenosis. RCA: has proximal 30% stenosis and distal 100% occlusion. Lesion on Dist RCA: Distal subsection.100% stenosis 18 mm length reduced to 0%. Pre procedure BRUNO 0 flow was noted. Post Procedure BRUNO III flow was present. Good runoff was present. The lesion was diagnosed as Moderate Risk (B). The lesion was discrete and eccentric.The lesion showed with irregular contour, mild angulation and mild tortuosity. Comments:instent thrombosis Devices used - Euphora Balloon 3.0mm x 12mm. 4 inflation(s) to a max pressure of: 8 odilon. - Euphora Balloon 2.0mm x 12mm. 3 inflation(s) to a max pressure of: 15 odilon. - NC Euphora Balloon 3.0mm x 12mm. 5 inflation(s) to a max pressure of: 15 odilon. - NC Euphora Balloon 3.5mm x 8mm. 5 inflation(s) to a max pressure of: 15 odilon. Lesion on 1st RPL: 100% stenosis reduced to 0%. Pre procedure BRUNO 0 flow was noted. Post Procedure BRUNO III flow was present. Good runoff was present. The lesion was diagnosed as Moderate Risk (B). The lesion was discrete and eccentric.The lesion showed with irregular contour, mild angulation and mild tortuosity. Comments:instent thrombosis. Devices used - Euphora Balloon 2.0mm x 12mm. 5 inflation(s) to a max pressure of: 15 odilon. Coronary Tree Dominance: Right LV Analysis LV function assessed as:Normal. Ejection Fraction + --------+--- + !Method !EF%! + --------+--- + !LV gram !55 ! + --------+--- + LV Segment Contractility 1 - Normal 3 - Mild 5 - Severe 7 - Dyskinesis hypokinesis hypokinesis 2 - 4 - Moderate 6 - Akinesis 8 - Aneurysm Hypokinesis hypokinesis Procedure Data Procedure Start Time: 04/25/2021 11:35. Procedure End Time: 04/25/2021 12:27. Diagnostic Cath Status: Emergency Interventional Cath Status: Emergency Entry Locations - Retrograde Percutaneous access was performed through the Right Femoral artery. A 6 Fr sheath was inserted. Hemostasis was successfully obtained using 6 Fr. Angioseal. Procedure Medications: - Dopamine I.V. drip 7.5 ml/hr. - Lidocaine HCl 1% 10mg/ml S.Q. 10 ml. - Oxygen NC 2 l/min. - Angiomax I.V. bolus 13 ml. - Angiomax I.V. drip 24.1 ml/hr. - Fentanyl I.V. 25 mcg. - Atropine 0.5 mg. - Dopamine I.V. drip 7.5 ml/hr. - Nitroglycerin I.C. 100 mcg. - Dopamine I.V. drip 5 ml/hr. - Dopamine I.V. drip 15 ml/hr. - Ephedrine I.V. 10 mg. - Zofran I.V. 4 mg. - Dopamine I.V. drip 15 ml/hr. - Brilinta P.O. 180 mg. - Aspirin P.O. 324 mg. Catheters and Wires: - 6F Catheter JR 4 was used for Left ventriculography. - 6F Catheter JR 4 was used for Right coronary angiography. - 6F Catheter JR 4 125 cm was used for Right coronary angiography. - 6F Catheter JL 4 was used for Left coronary angiography. Contrast Material: - Isovue 196524 ml Fluoroscopy Time: Diagnostic: 12:28 minutes. Total: 12:28 minutes. Medical History Allergies - *Unlisted:(amoxicilla n). Risk Factors The patient risk factors include:last creatinine: 1.5 mg/dl and creatinine clearance: (more content not included)... [employer] Phone: [employer] Phone: [employer] Phone: Comprehensive Metabolic Pane lOrdered By: Marci Reid on 04-25-2021 Albumin [Mass/Vol] 3.3 g/dL Low 3.5 - 5.2 g/dL [facility] Phone: Albumin/Globulin [Mass ratio] 0.9 {ratio} Low [employer] Phone: ALP (Bld) [Catalytic activity/Vol] 80 U/L 40 - 129 U/L [employer] Phone: ALT [Catalytic activity/Vol] 15 U/L 5 - 41 U/L [employer] Phone: Anion gap [Moles/Vol] 10 mmol/L 9 - 17 mmol/L [employer] Phone: AST [Catalytic activity/Vol] 19 U/L <40 [employer] Phone: Bilirubin [Mass/Vol] 0.45 mg/dL 0.3 - 1 .2 mg/dL [facility] Phone: Calcium [Mass/Vol] 9.1 mg/dL 8.6 - 10. 4 mg/dL [facility] Phone: Chloride [Moles/Vol] 104 mmol/L 98 - 10 7 mmol/L [employer] Phone: CO2 [Moles/Vol] 24 mmol/L 20 - 31 mmol/L [employer] Phone: Creatinine [Mass/Vol] 1.47 mg/dL High 0.70 - 1.20 mg/dL [facility] Phone: Free PSA/Total PSA [Mass fraction] 7.1 g/dL 6.4 - 8.3 g/dL [facility] Phone: GFR 56 mL/min Low >60 [employer] Phone: GFR Non- 46 mL/min Low >60 [facility] Phone: Glucose [Mass/Vol] 126 mg/dL High 70 - 99 mg/dL [facility] Phone: Interpretation and review of laboratory results Abnormal [facility] Phone: Potassium [Moles/Vol] 4.1 mmol/L 3.7 - 5.3 mmol/L [facility] Phone: Sodium [Moles/Vol] 138 mmol/L 135 - 144 mmol/L [facility] Phone: Urea nitrogen (BldV) [Mass/Vol] 22 mg/dL 8 - 23 mg/dL [facility] Phone: Urea nitrogen/Creatinine (Bld) [Mass ratio] 15 [facility] Phone: [facility] Phone: Laboratory - Chemistry and C hemistry - challengeOrdered By: Marci Reid on 04-25-2021 GFR/1.73 sq M.predicted MDRD (S/P/Bld) [Vol rate/Area] [facility] Phone: Comment on above: Average GFR for 70 o r more years old: 75 mL/min/1.73sq m Chronic Kidney Disease: <60 mL/min/1.73sq m Kidney failure: <15 mL/min/1.73sq m eGFR calculated using average adult body mass. Additional eGFR calculator available at: http://www.Avnera.com/multiple_crcl_2012.htm Stage 1: Some kidney damage normal GFR Stage 2: Mild kidney damage GFR 60-89 Stage 3: Moderate kidney damage GFR 30-59 Stage 4: Severe kidney damage GFR 15-29 Stage 5: Severe kidney damage GFR <15 ESRD - chronic treatment by dialysis or transplant TroponinOrdered By: Marci mckoy on 04-25-2021 Troponin Interp NOT REPORTED [employer] [facility] Work Phone: Troponin T NOT REPORTED <0.03 ng/mL [employer] [facility] [employer] Work Phone: Troponin, High Sensitivity 16 ng/L 0 - 22 ng/L [facility] Phone: Comment on above: High Sensitivity Troponin values cannot be compared with other Troponin methodologies. Patients with high levels of Biotin oral intake (i.e >5mg/day) may have falsely decreased Troponin levels. Samples collected within 8 hours of biotin intake may require additional information for diagnosis. [facility] Phone: XR CHEST PORTABLEOrdered By: Marci Reid on 04-25-2021 No active cardiopulmonary disease. [facility] Phone: EXAMINATION: ONE XRA Y VIEW OF THE CHEST 04/25/2021 10:23 am COMPARISON: Chest, single view 03/03/2021 HISTORY: ORDERING SYSTEM PROVIDED HISTORY: AMS TECHNOLOGIST PROVIDED HISTORY: AMS FINDINGS: A single portable AP view of the chest was obtained. Heart, mediastinum, and pulmonary vasculature are within normal limits. Lungs and pleural spaces are clear. There is posterior fusion hardware within the lower thoracic spine. [facility] Phone: Julien, Mhpn Incoming Radiant Results From [employer] - 04/25/2021 10:44 AM EDT EXAMINATION: ONE XRAY VIEW OF THE CHEST 04/25/2021 10:23 am COMPARISON: Chest, single view 03/03/2021 HISTORY: ORDERING SYSTEM PROVIDED HISTORY: AMS TECHNOLOGIST PROVIDED HISTORY: AMS FINDINGS: A single portable AP view of the chest was obtained. Heart, mediastinum, and pulmonary vasculature are within normal limits. Lungs and pleural spaces are clear. There is posterior fusion hardware within the lower thoracic spine. IMPRESSION: No active cardiopulmonary disease. [facility] Phone: [facility] Phone: XR BONE SURVEY COMPLETEOrder ed By: Nic Garcia on 03-09-2021 Lytic lesions identified in the posterior left calvarium, posterior left 9th rib, medial left clavicle, T9 compression fracture, and possibly L3 and L4, similar to recent previous imaging including bone survey dated 05/04/[address] chest dated 03/03/2021. No additional suspicious bony lesions seen on radiographic bone survey. [facility] Phone: EXAMINATION: COMPLET E BONE SURVEY 03/09/2021 2:38 pm COMPARISON: Bone survey dated 05/04/2020; CT chest dated 03/03/2021 HISTORY: ORDERING SYSTEM PROVIDED HISTORY: Multiple myeloma in remission (HCC) FINDINGS: Small lucency in the posterior left calvarium is slightly increased in size. Lytic lesion is redemonstrated at the posterior left 9th rib. Lytic lesion is redemonstrated at the medial left clavicle. There is posterior fixation hardware in the thoracic spine at the T7-T11 levels with pathologic fracture at T9, which is unchanged. There is unchanged heterogeneous bony mineralization at L3 and at the anterior aspect of L2. There is no acute compression fracture or malalignment. There are moderate to severe degenerative changes in the lumbar spine. Moderate degenerative changes in the hips. [facility] Phone: Julien, Mhpn Incoming Radiant Results From [employer] - 03/09/2021 3:53 PM EDT EXAMINATION: COMPLETE BONE SURVEY 03/09/2021 2:38 pm COMPARISON: Bone survey dated 05/04/2020; CT chest dated 03/03/2021 HISTORY: ORDERING SYSTEM PROVIDED HISTORY: Multiple myeloma in remission (HCC) FINDINGS: Small lucency in the posterior left calvarium is slightly increased in size. Lytic lesion is redemonstrated at the posterior left 9th rib. Lytic lesion is redemonstrated at the medial left clavicle. There is posterior fixation hardware in the thoracic spine at the T7-T11 levels with pathologic fracture at T9, which is unchanged. There is unchanged heterogeneous bony mineralization at L3 and at the anterior aspect of L2. There is no acute compression fracture or malalignment. There are moderate to severe degenerative changes in the lumbar spine. Moderate degenerative changes in the hips. IMPRESSION: Lytic lesions identified in the posterior left calvarium, posterior left 9th rib, medial left clavicle, T9 compression fracture, and possibly L3 and L4, similar to recent previous imaging including bone survey dated 05/04/[address] chest dated 03/03/2021. No additional suspicious bony lesions seen on radiographic bone survey. [facility] Phone: [facility] Phone: CT CHEST PULMONARY EMBOLISM W CONTRASTOrdered By: Janet Tafoya on 03-03-2021 No evidence of pulmonary embolism or acute pulmonary abnormality. New lytic expansile mass within the posterior left 9th rib near the costovertebral junction with associated extraosseous extension and pathologic fracture in the setting of underlying known multiple myeloma. No findings of hardware complication at the posterior fusion spanning T7 through T11 with an unchanged chronic pathologic fracture at T9. Minimally increased superior endplate height loss at T10 relative to 2018 comparison. Unchanged expansile lytic lesion in the medial left clavicle. [facility] Phone: EXAMINATION: CTA OF THE CHEST 03/03/2021 11:39 am TECHNIQUE: CTA of the chest was performed after the administration of intravenous contrast. Multiplanar reformatted images are provided for review. MIP images are provided for review. Dose modulation, iterative reconstruction, and/or weight based adjustment of the mA/kV was utilized to reduce the radiation dose to as low as reasonably achievable. COMPARISON: 02/12/2018 HISTORY: ORDERING SYSTEM PROVIDED HISTORY: pain to Left flank TECHNOLOGIST PROVIDED HISTORY: pain to Left flank Decision Support Exception - unselect if not a suspected or confirmed emergency medical condition->Emergency Medical Condition (MA) FINDINGS: Pulmonary Arteries: Pulmonary arteries are adequately opacified for evaluation. No evidence of intraluminal filling defect to suggest pulmonary embolism. Main pulmonary artery is normal in caliber. Mediastinum: No evidence of mediastinal lymphadenopathy. The heart and pericardium demonstrate no acute abnormality. Coronary artery disease with multiple stents. There is no acute abnormality of the thoracic aorta. Lungs/pleura: Mild dependent and chronic interstitial changes in the lungs. No acute pulmonary finding. No pleural effusion or pneumothorax. Upper Abdomen: Limited images of the upper abdomen are without acute abnormality. Colonic diverticulosis. Suggestion of mildly nodular peripheral contour of the liver.. Soft Tissues/Bones: There is a new lytic expansile mass in the posterior left 9th rib near the costovertebral junction that spans approximately 3.2 cm transverse by 1.9 cm AP. There is an associated pathologic fracture of the ribs and there is extraosseous extension anteriorly. Unchanged chronic expansile lytic lesion in the medial left clavicle. Pathologic fracture at T9 with unchanged height loss. Trace increased superior endplate height loss at T10. Posterior fusion hardware spanning T7 through T11 with the hardware intact and in unchanged alignment. [employer] Work Phone: Julien, Mhpn Incoming Radiant Results From [employer] - 03/03/2021 3:39 PM EDT EXAMINATION: CTA OF THE CHEST 03/03/2021 11:39 am TECHNIQUE: CTA of the chest was performed after the administration of intravenous contrast. Multiplanar reformatted images are provided for review. MIP images are provided for review. Dose modulation, iterative reconstruction, and/or weight based adjustment of the mA/kV was utilized to reduce the radiation dose to as low as reasonably achievable. COMPARISON: 02/12/2018 HISTORY: ORDERING SYSTEM PROVIDED HISTORY: pain to Left flank TECHNOLOGIST PROVIDED HISTORY: pain to Left flank Decision Support Exception - unselect if not a suspected or confirmed emergency medical condition->Emergency Medical Condition (MA) FINDINGS: Pulmonary Arteries: Pulmonary arteries are adequately opacified for evaluation. No evidence of intraluminal filling defect to suggest pulmonary embolism. Main pulmonary artery is normal in caliber. Mediastinum: No evidence of mediastinal lymphadenopathy. The heart and pericardium demonstrate no acute abnormality. Coronary artery disease with multiple stents. There is no acute abnormality of the thoracic aorta. Lungs/pleura: Mild dependent and chronic interstitial changes in the lungs. No acute pulmonary finding. No pleural effusion or pneumothorax. Upper Abdomen: Limited images of the upper abdomen are without acute abnormality. Colonic diverticulosis. Suggestion of mildly nodular peripheral contour of the liver.. Soft Tissues/Bones: There is a new lytic expansile mass in the posterior left 9th rib near the costovertebral junction that spans approximately 3.2 cm transverse by 1.9 cm AP. There is an associated pathologic fracture of the ribs and there is extraosseous extension anteriorly. Unchanged chronic expansile lytic lesion in the medial left clavicle. Pathologic fracture at T9 with unchanged height loss. Trace increased superior endplate height loss at T10. Posterior fusion hardware spanning T7 through T11 with the hardware intact and in unchanged alignment. IMPRESSION: No evidence of pulmonary embolism or acute pulmonary abnormality. New lytic expansile mass within the posterior left 9th rib near the costovertebral junction with associated extraosseous extension and pathologic fracture in the setting of underlying known multiple myeloma. No findings of hardware complication at the posterior fusion spanning T7 through T11 with an unchanged chronic pathologic fracture at T9. Minimally increased superior endplate height loss at T10 relative to 2018 comparison. Unchanged expansile lytic lesion in the medial left clavicle. [employer] Work Phone: [facility] Work Phone: Microscopic UrinalysisOrdere d By: Janet Tafoya on 03-03-2021 - [facility] [employer] Work Phone: Amorphous, UA NOT REPORTED None [facility] Work Phone: Bacteria, UA NOT REPORTED None [facility] [employer] Work Phone: Casts UA NOT REPORTED /LPF [facility] [employer] Work Phone: Crystals, UA NOT REPORTED None /HPF [facility] Work Phone: Epithelial Cells UA 0 TO 2 [facility] [employer] Work Phone: Mucus, UA NOT REPORTED None [facility] [employer] Work Phone: Other Observations UA NOT REPORTED NOT REQ. M [facility] [employer] Work Phone: RBC, UA None [facility] [employer] Work Phone: Renal Epithelial, UA NOT REPORTED 0 /HPF [facility] [employer] Work Phone: Trichomonas, UA NOT REPORTED None [facility] [employer] Work Phone: WBC, UA None [facility] [employer] Work Phone: Yeast, UA NOT REPORTED None [facility] [employer] Work Phone: [facility] [employer] Work Phone: TroponinOrdered By: Shirley Tafoya on 03-03-2021 Troponin Interp NOT REPORTED [employer] Work Phone: Troponin T NOT REPORTED <0.03 ng/mL [facility] Work Phone: Troponin, High Sensitivity 15 ng/L 0 - 22 ng/L [facility] Phone: Comment on above: High Sensitivity Troponin values cannot be compared with other Troponin methodologies. Patients with high levels of Biotin oral intake (i.e >5mg/day) may have falsely decreased Troponin levels. Samples collected within 8 hours of biotin intake may require additional information for diagnosis. [employer] Work Phone: Troponin Interp NOT REPORTED [employer] Work Phone: Troponin T NOT REPORTED <0.03 ng/mL [facility] Work Phone: Troponin, High Sensitivity 16 ng/L 0 - 22 ng/L [facility] Phone: Comment on above: High Sensitivity Troponin values cannot be compared with other Troponin methodologies. Patients with high levels of Biotin oral intake (i.e >5mg/day) may have falsely decreased Troponin levels. Samples collected within 8 hours of biotin intake may require additional information for diagnosis. [employer] Work Phone: Urinalysis Reflex to Culture Ordered By: Janet Tafoya on 03-03-2021 Bilirubin Urine Negative NEGATIVE [employer] [facility] Work Phone: Color, UA YELLOW YELLOW [employer] Work Phone: Glucose, Ur Negative NEGATIVE [employer] Work Phone: Interpretation and review of laboratory results Abnormal [facility] Phone: Ketones Ql (U) Negative NEGATIVE [employer] Work Phone: Leukocyte esterase Test strip Ql (U) Negative NEGATIVE [facility] Phone: Nitrite, Urine Negative NEGATIVE [employer] Work Phone: pH, UA 6.5 [employer] Phone: Protein, UA Negative NEGATIVE [facility] Phone: Specific Codorus, UA <1.005 Low [facility] [employer] Phone: Turbidity UA CLEAR CLEAR [facility] Phone: Urinalysis Comments NOT REPORTED [facility] [employer] Phone: Urine Hgb Negative NEGATIVE [facility] Phone: Urobilinogen, Urine Normal Normal [facility] Phone: [facility] Phone: XR CHEST PORTABLEOrdered By: Janet Tafoya on 03-03-2021 No acute cardiopulmonary disease. [facility] Phone: EXAMINATION: ONE XRA Y VIEW OF THE CHEST 03/03/2021 12:33 pm COMPARISON: AP chest from 05/23/2020 HISTORY: ORDERING SYSTEM PROVIDED HISTORY: CP TECHNOLOGIST PROVIDED HISTORY: CP History of atrial fibrillation. FINDINGS: Overlying ECG monitor leads and snaps; post instrumented fusion changes lower thoracic spine. Cardiac silhouette nonenlarged. Mild elongation and perhaps ectasia descending thoracic aorta, and mild calcification knob, similar by comparison. Low lung volumes with probable mild basilar atelectasis or scarring. No consolidation or sizable pleural effusion. Bones appear unchanged. [facility] Phone: Julien, Mhpn Incoming Radiant Results From [employer] - 03/03/2021 12:41 PM EDT EXAMINATION: ONE XRAY VIEW OF THE CHEST 03/03/2021 12:33 pm COMPARISON: AP chest from 05/23/2020 HISTORY: ORDERING SYSTEM PROVIDED HISTORY: CP TECHNOLOGIST PROVIDED HISTORY: CP History of atrial fibrillation. FINDINGS: Overlying ECG monitor leads and snaps; post instrumented fusion changes lower thoracic spine. Cardiac silhouette nonenlarged. Mild elongation and perhaps ectasia descending thoracic aorta, and mild calcification knob, similar by comparison. Low lung volumes with probable mild basilar atelectasis or scarring. No consolidation or sizable pleural effusion. Bones appear unchanged. IMPRESSION: No acute cardiopulmonary disease. [employer] Work Phone: [employer] Work Phone: MRI EPI WO CONon 02-22-20 MRI LSOSIEL WO CON EXAMINATION: MRI EPI WO CON HISTORY: Lumbar arthritis , bilateral leg weakness, lumbar pain. COMPARISON: No relevant comparison available. TECHNIQUE: A variety of imaging planes and parameters were utilized for visualization of suspected pathology. FINDINGS: For the purposes of numbering, sagittal T2 image # 8 extends from the T11 vertebral body superiorly to the S2 level inferiorly. PARASPINAL AREA: Normal with no visible mass. BONES: Normal alignment of the lumbar vertebral bodies. Marked superior and inferior wedge compression fracture of the L2 vertebral body, 90% at the mid body, this is chronic with no edema on STIR. Mildly heterogeneous marrow signal likely age-related change. Moderate to large bulky spondylosis most significant at L2-L3 CORD/CAUDA EQUINA: Normal caliber, contour, and signal intensity. DISC LEVELS: 12-L1: Early degenerative disc disease is present without focal protrusion or neural impingement. L1-L2: Moderate disc space narrowing and disc desiccation. Extension of the disc into the superior endplate Schmorl's node versus compression fracture. No significant disc bulge or herniation. No central canal or foraminal stenosis L2-L3: Moderate disc space narrowing and disc desiccation. Extension of the disc into the superior endplate Schmorl's node versus compression fracture. No significant disc bulge or herniation. Mild trefoil narrowing of the central canal, no right foraminal stenosis, minimal left foraminal stenosis, sagittal image 4 L3-L4: Disc desiccation. Mild to moderate diffuse disc/osteophyte complex and facet osteoarthropathy. Ligamentum flavum hypertrophy. Mild trefoil narrowing of the central canal. Minimal bilateral foraminal stenosis, sagittal image 12 on the right, sagittal image 4 on the left L4-L5: Moderate disc space narrowing and disc desiccation. Mild diffuse disc/osteophyte complex and ligamentum flavum hypertrophy. No central canal or right foraminal stenosis. Mild narrowing of the left neural foramen, sagittal image 3 L5-S1: No significant disc/facet abnormality, spinal stenosis, or foraminal stenosis. IMPRESSION: High-grade anterior and inferior chronic L2 wedge compression fracture [id number] degenerative changes resulting in central and foraminal stenosis at several levels as detailed above Electronically authenticated by: LUIS FELIPE COMER Date: 2021-02-21 08:08 Normal [facility] CBC Auto DifferentialOrdered By: Nic Garcia on 12-12-2020 Absolute Eos # 0.21 [employer] [facility] Work Phone: Absolute Immature Granulocyte 0.07 [employer] Work Phone: Absolute Lymph # 0.98 Low [employer] [facility] Work Phone: Absolute Tate # 1.33 High [employer] [facility] Work Phone: Basophils (Bld) [#/Vol] 0.04 10*3/uL [employer] Work Phone: Basophils/100 WBC (Bld) 1 % 0 - 2 % M [employer] Work Phone: Differential Type NOT REPORTED [facility] Phone: Eosinophils/100 WBC (Bld) 3 % 1 - 4 % [employer] Work Phone: Hematocrit (Bld) [Volume fraction] 40.1 % Low 40.7 - 50.3 % [facility] Phone: Hemoglobin.gastrointesti nal spec 1 Ql (Stl) 13.2 g/dL 13.0 - 17.0 g/dL [facility] Phone: Immature granulocytes/100 WBC (Bld) 1 % High 0 [employer] Work Phone: Interpretation and review of laboratory results Abnormal [facility] Phone: Lymphocytes/100 WBC (Bld) 13 % Low 24 - 43 % [employer] Work Phone: MCH (RBC) [Entitic mass] 35.2 pg High 25. 2 - 33.5 pg [employer] Work Phone: MCHC (RBC) [Mass/Vol] 32.9 g/dL 28.4 - 34.8 g/dL [employer] Work Phone: MCV (RBC) [Entitic vol] 106.9 fL High 82.6 - 102.9 fL [employer] Work Phone: Monocytes/100 WBC (Bld) 17 % High 3 - 12 % [facility] Work Phone: NRBC Automated 0.0 0.0 per 100 WBC [facility] Phone: Platelet distribution width (Bld) [Ratio] 13.5 % 11.8 - 14.4 % [facility] Work Phone: Platelet Estimate NOT REPORTED [facility] Work Phone: Platelet mean volume (Bld) [Entitic vol] 9.5 fL 8.1 - 13.5 fL [employer] Work Phone: Platelets (Bld) [#/Vol] 231 10*3/uL [employer] Work Phone: RBC (Bld) [#/Vol] 3.75 10*6/uL Low 4.21 - 5.7 7 m/uL [facility] Work Phone: RBC (Bld) [#/Vol] NOT REPORTED [facility] Work Phone: Segmented neutrophils/100 WBC (Bld) 65 % 36 - 65 % [employer] Work Phone: Segs Absolute 5.15 [employer] Work Phone: WBC (Bld) [#/Vol] 7.8 10*3/uL [employer] Work Phone: WBC (Bld) [#/Vol] NOT REPORTED [employer] Work Phone: [employer] Work Phone: Comprehensive Metabolic Pane lOrdered By: Nic Garcia on 12-12-2020 Albumin [Mass/Vol] 3.1 g/dL Low 3.5 - 5.2 g/dL [facility] Phone: Albumin/Globulin [Mass ratio] 0.8 {ratio} Low [facility] Phone: ALP (Bld) [Catalytic activity/Vol] 76 U/L 40 - 129 U/L [facility] Phone: ALT [Catalytic activity/Vol] 15 U/L 5 - 41 U/L [facility] Phone: Anion gap [Moles/Vol] 9 mmol/L 9 - 17 mmol/L [facility] Phone: AST [Catalytic activity/Vol] 18 U/L <40 [facility] Phone: Bilirubin [Mass/Vol] 0.36 mg/dL 0.3 - 1 .2 mg/dL [facility] Phone: Calcium [Mass/Vol] 9.0 mg/dL 8.6 - 10. 4 mg/dL [facility] Phone: Chloride [Moles/Vol] 98 mmol/L 98 - 10 7 mmol/L [facility] Phone: CO2 [Moles/Vol] 27 mmol/L 20 - 31 mmol/L [facility] Phone: Creatinine [Mass/Vol] 1.41 mg/dL High 0.70 - 1.20 mg/dL [facility] Phone: Free PSA/Total PSA [Mass fraction] 7.0 g/dL 6.4 - 8.3 g/dL [facility] Phone: GFR 59 mL/min Low >60 [employer] Phone: GFR Non- 49 mL/min Low >60 [facility] Phone: Glucose [Mass/Vol] 109 mg/dL High 70 - 99 mg/dL [facility] Phone: Interpretation and review of laboratory results Abnormal [facility] Phone: Potassium [Moles/Vol] 4.4 mmol/L 3.7 - 5.3 mmol/L [facility] Phone: Sodium [Moles/Vol] 134 mmol/L Low 135 - 144 mmol/L [facility] Phone: Urea nitrogen (BldV) [Mass/Vol] 14 mg/dL 8 - 23 mg/dL [facility] Phone: Urea nitrogen/Creatinine (Bld) [Mass ratio] 10 [facility] Phone: [facility] Phone: Immunoglobulin Panel (IgG, I gA, IgM)Ordered By: Nic Garcia on 12-12-2020 IgA [Mass/Vol] 455 mg/dL High 70 - 400 mg/dL [facility] Phone: IgG [Mass/Vol] 1300 mg/dL 700 - 1600 mg/dL [facility] Phone: IgM [Mass/Vol] 35 mg/dL Low 40 - 230 mg/dL [facility] Phone: Interpretation and review of laboratory results Abnormal [facility] Phone: [facility] Phone: Leedey/Lambda Free Lt Chains, Serum QuantOrdered By: Nic Garcia on 12-12-2020 Free Leedey/Lambda Ratio 0.97 [facility] Phone: Interpretation and review of laboratory results Abnormal [facility] Phone: Leedey Free Light Chains QNT 3.59 mg/dL High 0.37 - 1.94 mg/dL [facility] Phone: Lambda Free Light Chains QNT 3.71 mg/dL High 0.57 - 2.63 mg/dL [facility] Phone: [facility] Phone: Laboratory - Chemistry and C hemistry - challengeOrdered By: Nic Garcia on 12-12-2020 GFR/1.73 sq M.predicted MDRD (S/P/Bld) [Vol rate/Area] [facility] Phone: Comment on above: Average GFR for 70 o r more years old: 75 mL/min/1.73sq m Chronic Kidney Disease: <60 mL/min/1.73sq m Kidney failure: <15 mL/min/1.73sq m eGFR calculated using average adult body mass. Additional eGFR calculator available at: http://www.MXP4/multiple_crcl_2012.htm Stage 1: Some kidney damage normal GFR Stage 2: Mild kidney damage GFR 60-89 Stage 3: Moderate kidney damage GFR 30-59 Stage 4: Severe kidney damage GFR 15-29 Stage 5: Severe kidney damage GFR <15 ESRD - chronic treatment by dialysis or transplant PSA, DiagnosticOrdered By: Radha Garcia on 12-12-2020 Interpretation and review of laboratory results Abnormal [facility] Phone: [facility] Phone: MRI BRAIN WO CONTRASTOrdered By: Raji Garcia on 11-18-2020 1. No acute intracranial abnormality. No acute infarct. 2. Moderate global parenchymal volume loss with [id number] chronic microvascular ischemic changes. 3. Lobulated T1 hypo/T2 hyperintense lesion in the region of the left sphenoid bone, which appears less bulky when compared to the prior CT. This may represent a treated myelomatous lesion. [facility] Phone: EXAMINATION: MRI OF THE BRAIN WITHOUT CONTRAST 11/18/2020 9:10 am TECHNIQUE: Multiplanar multisequence MRI of the brain was performed without the administration of intravenous contrast. COMPARISON: CT 09/30/2018. HISTORY: ORDERING SYSTEM PROVIDED HISTORY: Fatigue, unspecified type Initial evaluation. FINDINGS: INTRACRANIAL STRUCTURES/VENTRICLES : There is no acute infarct. No mass effect or midline shift. No evidence of an acute intracranial hemorrhage. Areas of T2 FLAIR hyperintensity are seen in the periventricular and subcortical white matter as well as the sheila, which are nonspecific, but may represent chronic microvascular ischemic change. There is prominence of the ventricles and sulci due to global parenchymal volume loss. The sellar/suprasellar regions appear unremarkable. The normal signal voids within the major intracranial vessels appear maintained. ORBITS: The visualized portion of the orbits demonstrate no acute abnormality. SINUSES: The visualized paranasal sinuses and mastoid air cells are well aerated. BONES/SOFT TISSUES: A lobulated T1 hypo/T2 hyperintense lesion is seen in the region of the left sphenoid bone, which appears less bulky when compared to the prior CT. [facility] Phone: Julien, [facility] Incoming Radiant Results From [employer] - 11/18/2020 9:50 AM EDT EXAMINATION: MRI OF THE BRAIN WITHOUT CONTRAST 11/18/2020 9:10 am TECHNIQUE: Multiplanar multisequence MRI of the brain was performed without the administration of intravenous contrast. COMPARISON: CT 09/30/2018. HISTORY: ORDERING SYSTEM PROVIDED HISTORY: Fatigue, unspecified type Initial evaluation. FINDINGS: INTRACRANIAL STRUCTURES/VENTRICLES : There is no acute infarct. No mass effect or midline shift. No evidence of an acute intracranial hemorrhage. Areas of T2 FLAIR hyperintensity are seen in the periventricular and subcortical white matter as well as the sheila, which are nonspecific, but may represent chronic microvascular ischemic change. There is prominence of the ventricles and sulci due to global parenchymal volume loss. The sellar/suprasellar regions appear unremarkable. The normal signal voids within the major intracranial vessels appear maintained. ORBITS: The visualized portion of the orbits demonstrate no acute abnormality. SINUSES: The visualized paranasal sinuses and mastoid air cells are well aerated. BONES/SOFT TISSUES: A lobulated T1 hypo/T2 hyperintense lesion is seen in the region of the left sphenoid bone, which appears less bulky when compared to the prior CT. IMPRESSION: 1. No acute intracranial abnormality. No acute infarct. 2. Moderate global parenchymal volume loss with [id number] chronic microvascular ischemic changes. 3. Lobulated T1 hypo/T2 hyperintense lesion in the region of the left sphenoid bone, which appears less bulky when compared to the prior CT. This may represent a treated myelomatous lesion. [facility] Phone: [facility] Phone: COVID-19on 09-14-2020 SARS-CoV-2 [facility] Phone: SARS-CoV-2 Not Detected Not Detected [facility] Phone: Comment on above: The specimen is NEGATIVE for SARS-CoV-2, the novel coronavirus associated with COVID-19. A negative result does not rule out COVID-19. Terrie SARS-CoV-2 for use on the [employer]/8800 Systems is a real-time RT-PCR test intended for the qualitative detection of nucleic acids from SARS-CoV-2 in clinician-collected nasal, nasopharyngeal, and oropharyngeal swab specimens from individuals who meet COVID-19 clinical and/or epidemiological criteria. Terrie SARS-CoV-2 is for use only under Emergency Use Authorization (EUA) in laboratories certified under Clinical Laboratory Improvement Amendments of 1988 (CLIA), 42 U.S.C. 263a, that meet requirements to perform high or moderate complexity tests. An individual without symptoms of COVID-19 and who is not shedding SARS-CoV-2 virus would expect to have a negative (not detected) result in this assay. Fact sheet for Healthcare Providers: https://www.fda.gov/media/805311/download Fact sheet for Patients: https://www.fda.gov/media/908883/download METHODOLOGY: RT-PCR Source .NASOPHARYNGEAL SWAB [employer] Phone: CBC Auto Differentialon 08-29 Basophils (Bld) [#/Vol] 10*3/uL M [employer] Phone: Basophils/100 WBC (Bld) 0 % 0 - 2 % M [employer] Phone: Differential Type NOT REPORTED [facility] Phone: Eosinophils (Bld) [#/Vol] 0.03 10*3/uL [facility] Phone: Eosinophils/100 WBC (Bld) 0 % Low 1 - 4 % [facility] Phone: Erythrocyte distribution width (RBC) [Ratio] 13.9 % 11.8 - 14.4 % [facility] Phone: Hematocrit (Bld) [Volume fraction] 39.4 % Low 40.7 - 50.3 % [facility] Phone: Hemoglobin (Bld) [Mass/Vol] 12.8 g/dL Low 13.0 - 17.0 g/dL [facility] Phone: Immature granulocytes (Bld) [#/Vol] 0.07 10*3/uL [facility] Phone: Immature granulocytes (Bld) [#/Vol] 1 % High 0 [facility] Phone: Interpretation and review of laboratory results Abnormal [facility] Phone: Lymphocytes (Bld) [#/Vol] 1.30 10*3/uL [facility] Phone: Lymphocytes/100 WBC (Bld) 13 % Low 24 - 43 % [facility] Phone: MCH (RBC) [Entitic mass] 35.6 pg High 25. 2 - 33.5 pg [facility] Phone: MCHC (RBC) [Mass/Vol] 32.5 g/dL 28.4 - 34.8 g/dL [facility] Phone: MCV (RBC) [Entitic vol] 109.4 fL High 82.6 - 102.9 fL [facility] Phone: Monocytes (Bld) [#/Vol] 1.29 10*3/uL High [facility] Phone: Monocytes/100 WBC (Bld) 13 % High 3 - 12 % [facility] Phone: Platelet mean volume (Bld) [Entitic vol] 10.1 fL 8.1 - 13.5 fL [facility] Phone: Platelets (Bld) [#/Vol] NOT REPORTED [employer] Work Phone: Platelets (Bld) [#/Vol] 216 10*3/uL [facility] Phone: RBC (Bld) [#/Vol] 3.60 10*6/uL Low 4.21 - 5.7 7 m/uL [employer] Work Phone: RBC morphology finding Nom (Bld) NOT REPORTED [employer] Work Phone: Segmented neutrophils/100 WBC (Bld) 72 % High 36 - 65 % [employer] Work Phone: Segs Absolute 7.07 [employer] Work Phone: WBC (Bld) [#/Vol] 0.0 10*3/uL 0.0 per 10 0 WBC [employer] Work Phone: WBC (Bld) [#/Vol] 9.8 10*3/uL [employer] Work Phone: WBC Morphology NOT REPORTED [employer] [facility] Work Phone: Comprehensive Metabolic Pane rboin 09-13-2020 Albumin [Mass/Vol] 3.5 g/dL 3.5 - 5.2 g/dL [facility] Phone: Albumin/Globulin [Mass ratio] 1.1 {ratio} [employer] Work Phone: ALP [Catalytic activity/Vol] 70 U/L 40 - 129 U/L [employer] Work Phone: ALT [Catalytic activity/Vol] 24 U/L 5 - 41 U/L [facility] Phone: Anion gap [Moles/Vol] 6 mmol/L Low 9 - 17 mmol/L [employer] Work Phone: AST [Catalytic activity/Vol] 26 U/L <40 [employer] Work Phone: Bilirubin Ql (U) 0.36 mg/dL 0.3 - 1.2 mg/dL [facility] Phone: Bun/Cre Ratio 15 [employer] Work Phone: Calcium [Mass/Vol] 9.2 mg/dL 8.6 - 10. 4 mg/dL [facility] Phone: Chloride [Moles/Vol] 102 mmol/L 98 - 10 7 mmol/L [facility] Phone: CO2 [Moles/Vol] 31 mmol/L 20 - 31 mmol/L [facility] Phone: Creatinine [Mass/Vol] 1.43 mg/dL High 0.70 - 1.20 mg/dL [facility] Phone: GFR 58 mL/min Low >60 [employer] Phone: GFR Non- 48 mL/min Low >60 [facility] Phone: Glucose [Mass/Vol] 86 mg/dL 70 - 99 mg/dL [facility] Phone: Interpretation and review of laboratory results Abnormal [facility] Phone: Potassium [Moles/Vol] 4.1 mmol/L 3.7 - 5.3 mmol/L [facility] Phone: Protein [Mass/Vol] 6.8 g/dL 6.4 - 8.3 g/dL [facility] Phone: Sodium [Moles/Vol] 139 mmol/L 135 - 144 mmol/L [facility] Phone: Urea nitrogen [Mass/Vol] 22 mg/dL 8 - 23 mg/dL [facility] Phone: Immunoglobulin Panel (IgG, I gA, IgM)on 09-13-2020 IgA [Mass/Vol] 363 mg/dL 70 - 400 mg/dL [facility] Phone: IgG [Mass/Vol] 1262 mg/dL 700 - 1600 mg/dL [facility]: IgM [Mass/Vol] 35 mg/dL Low 40 - 230 mg/dL [facility] Phone: Interpretation and review of laboratory results Abnormal [facility] Phone: Leedey/Lambda Free Lt Chains, Serum Quanton 09-13-2020 Free Leedey/Lambda Ratio 0.91 M [facility] Phone: Interpretation and review of laboratory results Abnormal [facility] Phone: Leedey Free Light Chains QNT 2.69 mg/dL High 0.37 - 1.94 mg/dL [facility] Phone: Lambda Free Light Chains QNT 2.96 mg/dL High 0.57 - 2.63 mg/dL [facility] Phone: Metabolic Panelon 09-13-2020 GFR/1.73 sq M predicted among non-blacks MDRD (S/P/Bld) [Vol rate/Area] [facility] Phone: Comment on above: Stage 1: Some kidney damage normal GFR Stage 2: Mild kidney damage GFR 60-89 Stage 3: Moderate kidney damage GFR 30-59 Stage 4: Severe kidney damage GFR 15-29 Stage 5: Severe kidney damage GFR <15 ESRD - chronic treatment by dialysis or transplant Average GFR for 70 o r more years old: 75 mL/min/1.73sq m Chronic Kidney Disease: <60 mL/min/1.73sq m Kidney failure: <15 mL/min/1.73sq m eGFR calculated using average adult body mass. Additional eGFR calculator available at: http://www.[employer]nera.Changelight/multiple_crcl_2012.htm Basic Metabolic Panelon Anion gap [Moles/Vol] 8 mmol/L Low 9 - 17 mmol/L [facility] Phone: Bun/Cre Ratio 18 [employer] [facility] Work Phone: Calcium [Mass/Vol] 9.1 mg/dL 8.6 - 10. 4 mg/dL [facility] Phone: Chloride [Moles/Vol] 105 mmol/L 98 - 10 7 mmol/L [facility] Phone: CO2 [Moles/Vol] 27 mmol/L 20 - 31 mmol/L [facility] Phone: Creatinine [Mass/Vol] 1.31 mg/dL High 0.70 - 1.20 mg/dL [facility] Phone: GFR >60 >60 mL/min [employer] Phone: GFR Non- 53 mL/min Low >60 [facility] Phone: Glucose [Mass/Vol] 93 mg/dL 70 - 99 mg/dL [facility] Phone: Interpretation and review of laboratory results Abnormal [facility] Phone: Potassium [Moles/Vol] 4.6 mmol/L 3.7 - 5.3 mmol/L [facility] Phone: Sodium [Moles/Vol] 140 mmol/L 135 - 144 mmol/L [facility] Phone: Urea nitrogen [Mass/Vol] 24 mg/dL High 8 - 23 mg/dL [facility] Phone: CBC Auto Differentialon 03-0 Basophils (Bld) [#/Vol] 0.07 10*3/uL [facility] Phone: Basophils/100 WBC (Bld) 1 % 0 - 2 % [facility] Phone: Differential Type NOT REPORTED [facility] Phone: Eosinophils (Bld) [#/Vol] 0.07 10*3/uL [facility] Phone: Eosinophils/100 WBC (Bld) 1 % 1 - 4 % [facility] Phone: Erythrocyte distribution width (RBC) [Ratio] 13.6 % 11.8 - 14.4 % [facility] Phone: Hematocrit (Bld) [Volume fraction] 40.9 % 40.7 - 50.3 % [facility] Phone: Hemoglobin (Bld) [Mass/Vol] 13.6 g/dL 13.0 - 17.0 g/dL [facility] Phone: Immature granulocytes (Bld) [#/Vol] 0 % 0 [facility] Phone: Immature granulocytes (Bld) [#/Vol] 0.00 10*3/uL [facility] Phone: Interpretation and review of laboratory results Abnormal [facility] Phone: Lymphocytes (Bld) [#/Vol] 0.83 10*3/uL Low [facility] Phone: Lymphocytes/100 WBC (Bld) 12 % Low 24 - 43 % [facility] Phone: MCH (RBC) [Entitic mass] 36.3 pg High 25. 2 - 33.5 pg [facility] Phone: MCHC (RBC) [Mass/Vol] 33.3 g/dL 28.4 - 34.8 g/dL [facility] Phone: MCV (RBC) [Entitic vol] 109.1 fL High 82.6 - 102.9 fL [facility] Phone: Monocytes (Bld) [#/Vol] 0.35 10*3/uL [facility] Phone: Monocytes/100 WBC (Bld) 5 % 3 - 12 % [facility] Phone: Morphology Aashish (Bld) [Interp] Normal [facility] Phone: Platelet mean volume (Bld) [Entitic vol] 10.5 fL 8.1 - 13.5 fL [employer] Work Phone: Platelets (Bld) [#/Vol] NOT REPORTED [employer] Work Phone: Platelets (Bld) [#/Vol] 166 10*3/uL [employer] Work Phone: RBC (Bld) [#/Vol] 3.75 10*6/uL Low 4.21 - 5.7 7 m/uL [employer] Work Phone: RBC morphology finding Nom (Bld) NOT REPORTED [employer] Work Phone: Segmented neutrophils/100 WBC (Bld) 81 % High 36 - 65 % [employer] Work Phone: Segs Absolute 5.58 [employer] Work Phone: WBC (Bld) [#/Vol] 0.0 10*3/uL 0.0 per 10 0 WBC [employer] Work Phone: WBC (Bld) [#/Vol] 6.9 10*3/uL [employer] Work Phone: WBC Morphology NOT REPORTED [facility] Work Phone: EKG 12 Leadon 09-05-2020 Atrial Rate 65 BPM [employer] Work Phone: P Le [place] 5 degrees [employer] Work Phone: P-R Interval 148 ms [employer] Work Phone: Q-T Interval 410 ms [employer] Work Phone: QRS Duration 96 ms [employer] Work Phone: QTc Calculation (Bazett) 426 ms [employer] Work Phone: R [place] -3 degrees [employer] Work Phone: T [place] -10 degrees [employer] Work Phone: Ventricular Rate 65 BPM [employer] [facility] Work Phone: Normal sinus rhythm Normal ECG When compared with ECG of 05-SEP-2020 09:05, (unconfirmed) No significant change was found Confirmed by CARLOS EDUARDO PLASCENCIA ([id number]) on 09/05/2020 12:28:07 PM [employer] Work Phone: Julien, [employer] Incoming Ekg Results From [employer] [place] - 09/05/2020 12:28 PM EST Normal sinus rhythm Normal ECG When compared with ECG of 05-SEP-2020 09:05, (unconfirmed) No significant change was found Confirmed by CARLOS EDUARDO PLASCENCIA ([id number]) on 09/05/2020 12:28:07 PM [employer] Work Phone: Metabolic Panelon 09-05-2020 GFR/1.73 sq M predicted among non-blacks MDRD (S/P/Bld) [Vol rate/Area] [employer] Work Phone: Comment on above: Stage 1: Some kidney damage normal GFR Stage 2: Mild kidney damage GFR 60-89 Stage 3: Moderate kidney damage GFR 30-59 Stage 4: Severe kidney damage GFR 15-29 Stage 5: Severe kidney damage GFR <15 ESRD - chronic treatment by dialysis or transplant Average GFR for 70 o r more years old: 75 mL/min/1.73sq m Chronic Kidney Disease: <60 mL/min/1.73sq m Kidney failure: <15 mL/min/1.73sq m eGFR calculated using average adult body mass. Additional eGFR calculator available at: http://www.Avnera.Changelight/multiple_crcl_2012.htm Urinalysis with Microscopico n 09-05-2020 Amorphous, UA NOT REPORTED None [employer] [facility] Work Phone: Bacteria, UA NOT REPORTED None [employer] [facility] Work Phone: Bilirubin Urine Negative NEGATIVE [employer] [facility] Work Phone: Casts UA NOT REPORTED /LPF [facility] Work Phone: Color, UA YELLOW YELLOW [facility] Work Phone: Crystals, UA NOT REPORTED None /HPF [facility] Work Phone: Epithelial Cells UA 0 TO 2 [facility] Work Phone: Glucose, Ur Negative NEGATIVE [facility] Work Phone: Ketones Ql (U) Negative NEGATIVE [facility] Work Phone: Leukocyte esterase Test strip Ql (U) Negative NEGATIVE [facility] Work Phone: Mucus, UA NOT REPORTED None [facility] Work Phone: Nitrite, Urine Negative NEGATIVE [facility] Work Phone: Other Observations UA NOT REPORTED NOT REQ. M [facility] [employer] Work Phone: pH, UA 6.0 [facility] [employer] Work Phone: Protein (U) [Mass/Vol] Negative NEGATIVE [facility] Work Phone: RBC (U) [#/Vol] None [facility] Work Phone: Renal Epithelial, UA NOT REPORTED 0 /HPF [facility] Work Phone: Specific Codorus, UA 1.015 [facility] Work Phone: Trichomonas, UA NOT REPORTED None [facility] Work Phone: Turbidity UA CLEAR CLEAR [facility] [employer] Work Phone: Urinalysis Comments NOT REPORTED [facility] Work Phone: Urine Hgb Negative NEGATIVE [facility] Work Phone: Urobilinogen, Urine Normal Normal [facility] [employer] Work Phone: WBC, UA None [facility] Work Phone: Yeast, UA NOT REPORTED None [facility] [employer] Work Phone: - [facility] Phone: ECHO Complete 2D W Doppler W Coloron 05-25-2020 Transthoracic Echocardiography Report (TTE) Patient Name NAOMI LOUIS Date of Study 05/25/2020 M Date of 1940 Gender Male Age 80 year(s) Race Room Number 1004 Height: 74 inch, 187.96 cm Corporate ID [id number] Weight: 190 pounds, 86.2 kg # Patient Acct [id number] BSA: 2.13 m^2 BMI: 24.39 # kg/m^2 MR # [id number] [employer] Jade Spencer Interpreting Physician Luis Enrique Jennings Fellow Referring Nurse Practitioner Interpreting Referring Physician Mary Gan Fellow Type of Study TTE procedure:2D Echocardiogram, M-Mode, Doppler, Color Doppler. Procedure Date Date: 05/25/2020 Start: 10:17 AM Study Location: [facility] History / Tech. Comments: STEMI Patient Status: Inpatient Height: 74 inches Weight: 190 pounds BSA: 2.13 m^2 BMI: 24.39 kg/m^2 CONCLUSIONS Summary Technically difficult study, not all kaba well visualized. Left ventricle is normal in size with normal systolic function. Calculated ejection fraction is 54% Mild inferior wall motion abnormality. Mildly dilated right ventricle. Aortic sclerosis without stenosis. Mild mitral regurgitation. Mild tricuspid regurgitation. Estimated right ventricular systolic pressure is 27 mmHg. Signature FINDINGS Left Atrium Left atrium is normal in size. Left Ventricle Technically difficult study, not all kaba well visualized. Left ventricle is normal in size with normal systolic function. Mild inferior wall motion abnormality. Calculated ejection fraction is 54% Right Atrium Right atrial enlargement. Right Ventricle Mildly dilated right ventricle. Mitral Valve Mitral valve structure is normal. Mild mitral regurgitation. Aortic Valve Aortic valve is trileaflet. Aortic sclerosis without stenosis. No aortic insufficiency. Tricuspid Valve Tricuspid valve structure is normal. Mild tricuspid regurgitation. Estimated right ventricular systolic pressure is 27 mmHg. Pulmonic Valve The pulmonic valve is normal in structure. Pericardial Effusion No significant pericardial effusion is seen. Miscellaneous Normal aortic root dimension. E/E' average = 13. IVC diameter and inspiratory collapse is normal. M-mode / 2D Measurements & Calculations: LVIDd:5.1 cm(3.7 - 5.6 cm) Diastolic Volume:98.65 ml LVIDs:3.45 cm(2.2 - 4.0 cm) Systolic Volume:44.99 ml IVSd:1.17 cm(0.6 - 1.1 cm) Aortic Root:3.7 cm(2.0 - 3.7 cm) LVPWd:0.8 cm(0.6 - 1.1 cm) LA Dimension: 3.8 cm(1.9 - 4.0 cm) Fractional Shortenin.35 % LA volume/Index: 38.97 ml /18m^2 Calculated LVEF (%): 54.39 % LVOT:2.1 cm RVDd:2.7 cm Mitral: Aortic Valve Area (P1/2-Time): 2.97 cm^2 Peak Velocity: 1.03 m/s Peak E-Wave: 0.60 m/s Mean Velocity: 0.72 m/s Peak A-Wave: 0.69 m/s Peak Gradient: 4.24 mmHg E/A Ratio: 0.88 Mean Gradient: 2 mmHg Peak Gradient: 1.46 mmHg Mean Gradient: 1 mmHg Deceleration Time: 261 msec Area (continuity): 3.19 cm^2 P1/2t: 74 msec AV VTI: 21.3 cm Area (continuity): 2.68 cm^2 Mean Velocity: 0.39 m/s Tricuspid: Pulmonic: Estimated RVSP: 27 mmHg Peak Velocity: 1.09 m/s Peak TR Velocity: 2.11 m/s Peak Gradient: 4.75 mmHg Peak TR Gradient: 17.8084 mmHg Estimated RA Pressure: 10 mmHg Estimated PASP: 27.81 mmHg Diastology / Tissue Doppler Septal Wall E' velocity:0.05 m/s Septal Wall E/E':13 Lateral Wall E' velocity:0.05 m/s Lateral Wall E/E':13 [facility] [place] [place] Julien, [employer] Incoming Cardio Results From [facility]/ - 05/25/2020 12:07 PM EST Transthoracic Echocardiography Report (TTE) Patient Name NAOMI LOUIS Date of Study 05/25/2020 M Date of 1940 Gender Male Age 80 year(s) Race Room Number 1004 Height: 74 inch, 187.96 cm Corporate ID [id number] Weight: 190 pounds, 86.2 kg # Patient Acct [id number] BSA: 2.13 m^2 BMI: 24.39 # kg/m^2 MR # [id number] [employer] SpencerAsyaJade Interpreting Physician Luis Enrique Jennings Fellow Referring Nurse Practitioner Interpreting Referring Physician Mary Gan Fellow Type of Study TTE procedure:2D Echocardiogram, M-Mode, Doppler, Color Doppler. Procedure Date Date: 05/25/2020 Start: 10:17 AM Study Location: [facility] History / Tech. Comments: STEMI Patient Status: Inpatient Height: 74 inches Weight: 190 pounds BSA: 2.13 m^2 BMI: 24.39 kg/m^2 CONCLUSIONS Summary Technically difficult study, not all kaba well visualized. Left ventricle is normal in size with normal systolic function. Calculated ejection fraction is 54% Mild inferior wall motion abnormality. Mildly dilated right ventricle. Aortic sclerosis without stenosis. Mild mitral regurgitation. Mild tricuspid regurgitation. Estimated right ventricular systolic pressure is 27 mmHg. Signature - - - - FINDINGS Left Atrium Left atrium is normal in size. Left Ventricle Technically difficult study, not all kaba well visualized. Left ventricle is normal in size with normal systolic function. Mild inferior wall motion abnormality. Calculated ejection fraction is 54% Right Atrium Right atrial enlargement. Right Ventricle Mildly dilated right ventricle. Mitral Valve Mitral valve structure is normal. Mild mitral regurgitation. Aortic Valve Aortic valve is trileaflet. Aortic sclerosis without stenosis. No aortic insufficiency. Tricuspid Valve Tricuspid valve structure is normal. Mild tricuspid regurgitation. Estimated right ventricular systolic pressure is 27 mmHg. Pulmonic Valve The pulmonic valve is normal in structure. Pericardial Effusion No significant pericardial effusion is seen. Miscellaneous Normal aortic root dimension. E/E' average = 13. IVC diameter and inspiratory collapse is normal. M-mode / 2D Measurements & Calculations: LVIDd:5.1 cm(3.7 - 5.6 cm) Diastolic Volume:98.65 ml LVIDs:3.45 cm(2.2 - 4.0 cm) Systolic Volume:44.99 ml IVSd:1.17 cm(0.6 - 1.1 cm) Aortic Root:3.7 cm(2.0 - 3.7 cm) LVPWd:0.8 cm(0.6 - 1.1 cm) LA Dimension: 3.8 cm(1.9 - 4.0 cm) Fractional Shortenin.35 % LA volume/Index: 38.97 ml /18m^2 Calculated LVEF (%): 54.39 % LVOT:2.1 cm RVDd:2.7 cm Mitral: Aortic Valve Area (P1/2-Time): 2.97 cm^2 Peak Velocity: 1.03 m/s Peak E-Wave: 0.60 m/s Mean Velocity: 0.72 m/s Peak A-Wave: 0.69 m/s Peak Gradient: 4.24 mmHg E/A Ratio: 0.88 Mean Gradient: 2 mmHg Peak Gradient: 1.46 mmHg Mean Gradient: 1 mmHg Deceleration Time: 261 msec Area (continuity): 3.19 cm^2 P1/2t: 74 msec AV VTI: 21.3 cm Area (continuity): 2.68 cm^2 Mean Velocity: 0.39 m/s Tricuspid: Pulmonic: Estimated RVSP: 27 mmHg Peak Velocity: 1.09 m/s Peak TR Velocity: 2.11 m/s Peak Gradient: 4.75 mmHg Peak TR Gradient: 17.8084 mmHg Estimated RA Pressure: 10 mmHg Estimated PASP: 27.81 mmHg Diastology / Tissue Doppler Septal Wall E' velocity:0.05 m/s Septal Wall E/E':13 Lateral Wall E' velocity:0.05 m/s Lateral Wall E/E':13 [place] Troponinon 05-25-2020 Interpretation and review of laboratory results Abnormal [place] Troponin I.cardiac [Mass/Vol] NOT REPORTED [place] Troponin T.cardiac [Mass/Vol] NOT REPORTED <0.03 ng/mL [place] Troponin, High Sensitivity 1153 ng/L Critically high 0 - 22 ng/L [place] Comment on above: High Sensitivity Troponin values cannot be compared with other Troponin methodologies. Patients with high levels of Biotin oral intake (i.e >5mg/day) may have falsely decreased Troponin levels. Samples collected within 8 hours of biotin intake may require additional information for diagnosis. Previous Alert Value Reported CBCon 05-24-2020 Erythrocyte distribution width (RBC) [Ratio] 14.6 % High 11.8 - 14.4 % [place] Hematocrit (Bld) [Volume fraction] 40.0 % Low 40.7 - 50.3 % [place] Hemoglobin (Bld) [Mass/Vol] 13.1 g/dL 13 - 17 g/dL [place] Interpretation and review of laboratory results Abnormal [place] MCH (RBC) [Entitic mass] 35.9 pg High 25. 2 - 33.5 pg [place] MCHC (RBC) [Mass/Vol] 32.8 g/dL 28.4 - 34.8 g/dL [place] MCV (RBC) [Entitic vol] 109.6 fL High 82.6 - 102.9 fL [place] Platelet mean volume (Bld) [Entitic vol] 10.3 fL 8.1 - 13.5 fL [place] Platelets (Bld) [#/Vol] 179 10*3/uL [place] RBC (Bld) [#/Vol] 3.65 10*6/uL Low 4.21 - 5.7 7 m/uL [place] WBC (Bld) [#/Vol] 0.0 10*3/uL 0.0 per 10 0 WBC [place] WBC (Bld) [#/Vol] 13.5 10*3/uL High [place] Comprehensive Metabolic Pane l w/ Reflex to MGon 05-24-2020 Albumin [Mass/Vol] 3 g/dL Low 3.5 - 5.2 g/dL [place] Albumin/Globulin [Mass ratio] 0.9 {ratio} Low [place] ALP [Catalytic activity/Vol] 55 U/L 40 - 129 U/L [place] ALT [Catalytic activity/Vol] 36 U/L 5 - 41 U/L [place] Anion gap [Moles/Vol] 9 mmol/L 9 - 17 mmol/L [place] AST [Catalytic activity/Vol] 142 U/L High <40 [place] Bilirubin Ql (U) 0.56 mg/dL 0.3 - 1.2 mg/dL [place] Bun/Cre Ratio NOT REPORTED [place] Calcium [Mass/Vol] 8.7 mg/dL 8.6 - 10. 4 mg/dL [place] Chloride [Moles/Vol] 106 mmol/L 98 - 10 7 mmol/L [place] CO2 [Moles/Vol] 22 mmol/L 20 - 31 mmol/L [place] Creatinine [Mass/Vol] 1.28 mg/dL High 0.7 - 1.2 mg/dL [place] GFR >60 >60 mL/min [place] GFR Non- 54 mL/min Low >60 [place] GFR/1.73 sq M predicted among non-blacks MDRD (S/P/Bld) [Vol rate/Area] [place] Comment on above: Average GFR for 70 o r more years old: 75 mL/min/1.73sq m Chronic Kidney Disease: <60 mL/min/1.73sq m Kidney failure: <15 mL/min/1.73sq m eGFR calculated using average adult body mass. Additional eGFR calculator available at: http://www.MXP4/multiple_crcl_2011.htm GFR/1.73 sq M predicted among non-blacks MDRD (S/P/Bld) [Vol rate/Area] NOT REPORTED [place] Glucose [Mass/Vol] 120 mg/dL High 70 - 99 mg/dL [place] Interpretation and review of laboratory results Abnormal [place] Potassium [Moles/Vol] 4.6 mmol/L 3.7 - 5.3 mmol/L [place] Protein [Mass/Vol] 6.2 g/dL Low 6.4 - 8.3 g/dL [place] Sodium [Moles/Vol] 137 mmol/L 135 - 144 mmol/L [place] Urea nitrogen [Mass/Vol] 19 mg/dL 8 - 23 mg/dL [place] Albumin [Mass/Vol] 3 g/dL Low 3.5 - 5.2 g/dL [place] Comment on above: SPECIMEN GROSSLY HEM OLYZED TO BE REDRAWN Albumin/Globulin [Mass ratio] 0.9 {ratio} Low [place] ALP [Catalytic activity/Vol] SPECIMEN GROSSLY HEMOLYZED 40 - 129 U/L [place] ALT [Catalytic activity/Vol] SPECIMEN GROSSLY HEMOLYZED 5 - 41 U/L [place] Anion gap [Moles/Vol] CANNOT BE CALCULATED 9 - 17 mmol/L [place] AST [Catalytic activity/Vol] SPECIMEN GROSSLY HEMOLYZED <40 U/L [place] Bilirubin Ql (U) SPECIMEN GROSSLY HEMOLYZED 0.3 - 1.2 mg/dL [place] Comment on above: TO BE REDRAWN CORRECTED ON 05/24 AT 0531: PREVIOUSLY REPORTED 0.52 Bun/Cre Ratio NOT REPORTED [place] Calcium [Mass/Vol] SPECIMEN GROSSLY HEMOLYZED 8.6 - 10.4 mg/dL [place] Chloride [Moles/Vol] SPECIMEN GROSSLY HEMOLYZED 98 - 107 mmol/L [place] CO2 [Moles/Vol] SPECIMEN GROSSLY HEMOLYZED 20 - 31 mmol/L [place] Creatinine [Mass/Vol] SPECIMEN GROSSLY HEMOLYZED 0.7 - 1.2 mg/dL [place] GFR CANNOT BE CALCULATED >60 m L/min [place] GFR Non- CANNOT BE CALCULATED > 60 mL/min [place] GFR/1.73 sq M predicted among non-blacks MDRD (S/P/Bld) [Vol rate/Area] NOT REPORTED [place] GFR/1.73 sq M predicted among non-blacks MDRD (S/P/Bld) [Vol rate/Area] [place] Comment on above: Average GFR for 70 o r more years old: 75 mL/min/1.73sq m Chronic Kidney Disease: <60 mL/min/1.73sq m Kidney failure: <15 mL/min/1.73sq m eGFR calculated using average adult body mass. Additional eGFR calculator available at: http://www.MXP4/multiple_crcl_2012.htm Glucose [Mass/Vol] SPECIMEN GROSSLY HEMOLYZED 70 - 99 mg/dL [place] Interpretation and review of laboratory results Abnormal [place] Potassium [Moles/Vol] SPECIMEN GROSSLY HEMOLYZED 3.7 - 5.3 mmol/L [place] Protein [Mass/Vol] SPECIMEN GROSSLY HEMOLYZED 6.4 - 8.3 g/dL [place] Comment on above: TO BE REDRAWN CORRECTED ON 05/24 AT 0531: PREVIOUSLY REPORTED 6.4 Sodium [Moles/Vol] SPECIMEN GROSSLY HEMOLYZED 135 - 144 mmol/L [place] Urea nitrogen [Mass/Vol] SPECIMEN GROSSL Y HEMOLYZED 8 - 23 mg/dL [place] SPECIMEN REJECTIONon 2 020 Ordered Test CBC [place] Reason for Rejection Unable to perform testing: Specimen clotted. [place] Specimen source Nom (Unsp spec) .BLOOD [place] - NOT REPORTED [place] Ordered Test CBC [place] Reason for Rejection Unable to perform testing: Specimen clotted. [place] Specimen source Nom (Unsp spec) .BLOOD [place] - NOT REPORTED [place] Troponinon 05-24-2020 Interpretation and review of laboratory results Abnormal [place] Troponin I.cardiac [Mass/Vol] NOT REPORTED [place] Troponin T.cardiac [Mass/Vol] NOT REPORTED <0.03 ng/mL [place] Troponin, High Sensitivity 1576 ng/L Critically high 0 - 22 ng/L [place] Comment on above: High Sensitivity Troponin values cannot be compared with other Troponin methodologies. Patients with high levels of Biotin oral intake (i.e >5mg/day) may have falsely decreased Troponin levels. Samples collected within 8 hours of biotin intake may require additional information for diagnosis. Previous Alert Value Reported Interpretation and review of laboratory results Abnormal [place] Troponin I.cardiac [Mass/Vol] NOT REPORTED [place] Troponin T.cardiac [Mass/Vol] NOT REPORTED <0.03 ng/mL [place] Troponin, High Sensitivity 2214 ng/L Critically high 0 - 22 ng/L [place] Comment on above: High Sensitivity Troponin values cannot be compared with other Troponin methodologies. Patients with high levels of Biotin oral intake (i.e >5mg/day) may have falsely decreased Troponin levels. Samples collected within 8 hours of biotin intake may require additional information for diagnosis. Previous Alert Value Reported Interpretation and review of laboratory results Abnormal [place] Troponin I.cardiac [Mass/Vol] NOT REPORTED [place] Troponin T.cardiac [Mass/Vol] NOT REPORTED <0.03 ng/mL [place] Troponin, High Sensitivity 2677 ng/L Critically high 0 - 22 ng/L [place] Comment on above: High Sensitivity Troponin values cannot be compared with other Troponin methodologies. Patients with high levels of Biotin oral intake (i.e >5mg/day) may have falsely decreased Troponin levels. Samples collected within 8 hours of biotin intake may require additional information for diagnosis. Activated clotting timeon Activated Clotting Time 348 High M [place], [place] Interpretation and review of laboratory results Abnormal [place] Basic Metabolic Panel w/ Ref master to MGon 05-23-2020 Anion gap [Moles/Vol] 10 mmol/L 9 - 17 mmol/L [place] Bun/Cre Ratio 13 [place] Calcium [Mass/Vol] 9.0 mg/dL 8.6 - 10. 4 mg/dL [place] Chloride [Moles/Vol] 102 mmol/L 98 - 10 7 mmol/L [place] CO2 [Moles/Vol] 25 mmol/L 20 - 31 mmol/L [place] Creatinine [Mass/Vol] 1.47 mg/dL High 0.7 - 1.2 mg/dL [place] GFR 56 mL/min Low >60 [place] GFR Non- 46 mL/min Low >60 [place] Glucose [Mass/Vol] 126 mg/dL High 70 - 99 mg/dL [place] Interpretation and review of laboratory results Abnormal [place] Potassium [Moles/Vol] 4.5 mmol/L 3.7 - 5.3 mmol/L [place] Sodium [Moles/Vol] 137 mmol/L 135 - 144 mmol/L [place] Urea nitrogen [Mass/Vol] 19 mg/dL 8 - 23 mg/dL [place] CBCon 05-23-2020 Erythrocyte distribution width (RBC) [Ratio] 14.5 % High 11.8 - 14.4 % [place] Hematocrit (Bld) [Volume fraction] 42.1 % 40.7 - 50.3 % [place] Hemoglobin (Bld) [Mass/Vol] 13.7 g/dL 13 - 17 g/dL [place] Interpretation and review of laboratory results Abnormal [place] MCH (RBC) [Entitic mass] 35.3 pg High 25. 2 - 33.5 pg [place] MCHC (RBC) [Mass/Vol] 32.5 g/dL 28.4 - 34.8 g/dL [place] MCV (RBC) [Entitic vol] 108.5 fL High 82.6 - 102.9 fL [place] Platelet mean volume (Bld) [Entitic vol] 10.0 fL 8.1 - 13.5 fL [place] Platelets (Bld) [#/Vol] 194 10*3/uL [place] RBC (Bld) [#/Vol] 3.88 10*6/uL Low 4.21 - 5.7 7 m/uL [place] WBC (Bld) [#/Vol] 8.3 10*3/uL [place] WBC (Bld) [#/Vol] 0.0 10*3/uL 0.0 per 10 0 WBC [place] COVID-19on 05-23-2020 SARS-CoV-2, Rapid Not Detected Not Detected [place] Comment on above: Rapid NAAT: The specimen is NEGATIVE for SARS-CoV-2, the novel coronavirus associated with COVID-19. The ID NOW COVID-19 assay is designed to detect the virus that causes COVID-19 in patients with signs and symptoms of infection who are suspected of COVID-19. An individual without symptoms of COVID-19 and who is not shedding SARS-CoV-2 virus would expect to have a negative (not detected) result in this assay. Negative results should be treated as presumptive and, if inconsistent with clinical signs and symptoms or necessary for patient management, should be tested with an alternative molecular assay. Negative results do not preclude SARS-CoV-2 infection and should not be used as the sole basis for patient management decisions. Fact sheet for Healthcare Providers: https://www.fda.gov/media/467486/download Fact sheet for Patients: https://www.fda.gov/media/625147/download Methodology: Isothermal Nucleic Acid Amplification Source .NASOPHARYNGEAL SWAB [place] Cardiac Catheterizationon Julien, Mhpn Incoming Cardio Results From [facility] - 05/23/2020 11:28 AM EST Cardiac Diagnostic + PCI Report Demographics Patient NAOMI Vaughan Date of Study 05/23/2020 Name Date of 1940 Gender Male Age 80 year(s) Race Room [id number]^MALIK^AMEER Height: 74 inch, 187.96 cm Number Corporate [id number] Weight: 190 pounds, 86.2 kg ID # Patient [id number] BSA: 2.13 m^2 BMI: 24.39 Acct # kg/m^2 MR # [id number] Performing Physician Mary Gan Referring Physician # Assisting Physician Additional Comments Stemi from [facility] H&Shawna reviewed and patient examined by performing physician prior to the procedure on 05/23/2020 at No changes noted. If changes, see note below. Mallampati Classification 3 / ASA Classification III : per Physician . Procedure Procedure Type: Diagnostic procedure: Coronary angiography PCI procedure: PTCA / Bare Metal Stent:, RCA and / or branches Complications: - No complication Indications: - STEMI patient - Previous stent placement - Coronary risk factors - ECG changes Conclusions Procedure Summary Patent LCX stent (from 5 years ago) LAD has 40%n proximal stenosis RCA, dominant with 100% stenosis, required PTCA -BMS of distal RCA and proximal RPL branch (Due to bladder cancer and needs for surgery), LV gram was not done due to renal fiunction Recommendations Post IN and stent protocol Will not be clear for any surgery for at least 4 weeks. Signature - - Angiographic Findings Cardiac Arteries and Lesion Findings LMCA: Short with 20% stenosis LAD: Proximal 40% stenosis Minimal diffuse disease vdistally LCx: Proximal patent stent with 30% stennosis RCA: Distal 100% stenosis with thrombus and BRUNO [address] branch 100% with proximal lesion 99% stenosis Lesion on Dist RCA: Proximal subsection.100% stenosis 12 mm length reduced to 0%. Pre procedure BRUNO 0 flow was noted. Post Procedure BRUNO III flow was present. Poor runoff was present. The lesion was diagnosed as High Risk (C). Devices used - Luge Wire 182 cm. Number of passes: 1. - Trek Balloon 2.5mm x 12mm. 6 inflation(s) to a max pressure of: 15 odilon. - Pronto Extraction Catheter LP. Number of passes: 1. - Balloon of Vision Stent 2.5x12mm BMS. 1 inflation(s) to a max pressure of: 18 odilon. - Vision Stent 3.5x18mm BMS. 1 inflation(s) to a max pressure of: 9 odilon. Lesion on 1st RPL: Proximal subsection.100% stenosis 8 mm length reduced to 0%. Pre procedure BRUNO 0 flow was noted. Post Procedure BRUNO III flow was present. Poor runoff was present. The lesion was diagnosed as High Risk (C). Devices used - Mini Trek Balloon 2.0mm x 12mm. 2 inflation(s) to a max pressure of: 10 odilon. - Vision Stent 2.5x12mm BMS. 2 inflation(s) to a max pressure of: 10 odilon. Coronary Tree Dominance: Right Procedure Data Procedure Start Time: 05/23/2020 10:53. The procedure was explained in detail to the patient. Risks, complications and alternative treatments were reviewed. Written consent was obtained. Diagnostic Cath Status: Emergency Interventional Cath Status: Emergency Entry Locations - Percutaneous access was performed through the Right Femoral artery. A 6 Fr sheath was inserted. Procedure Medications: - Lidocaine HCl 1% 10mg/ml S.Q. 20 ml. - Heparin I.V. bolus 6000 units. - Atropine I.V. 0.5 mg. - Nitroglycerin I.C. 200 mcg. - Aggrastat I.V. bolus 41.3 . - Aggrastat I.V. drip 27 ml/hr. Catheters and Wires: - 6F Catheter JL 4 was used for Left coronary angiography. - 6F Guide Catheter JR4-SH was used for Right coronary angiography. Contrast Material: - Optiray [id number] ml Fluoroscopy Time: Diagnostic: 9:05 minutes. Total: 9:05 minutes. Estimated Blood Loss: 5 ml. Medical History Risk Factors The patient risk factors include:prior PCI;obesity, treated hypercholesterolemia, treated hypertension, chronic lung disease, last creatinine: 1.5 mg/dl, creatinine clearance: 49.48 ml/min, dyslipidemia and former tobacco use. 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 Hemodynamics Condition: Baseline Room Air Estimated: 227.04Heart Rate: 49 bpm Pressure +-----+ + !Site !Pressure ! +-----+ + !AO !104/51 (70) ! +-----+ + !AO !85/56 (70) ! +-----+ + !AO !133/68 (92) ! +-----+ + !AO !135/73 (101) ! +-----+ + Shunts Oxygen Values O2 [id number] Axkrwqndmvo413.04 [facility] [place] [place] Cardiac Diagnostic + PCI Report Demographics Patient NAOMI Vaughan Date of Study 05/23/2020 Name Date of 1940 Gender Male Age 80 year(s) Race Room [id number]^MALIK^MARY Height: 74 inch, 187.96 cm Number Corporate [id number] Weight: 190 pounds, 86.2 kg ID # Patient [id number] BSA: 2.13 m^2 BMI: 24.39 Acct # kg/m^2 MR # [id number] Performing Physician Mary Gan Referring Physician # Assisting Physician Additional Comments Stemi from [facility] H&P reviewed and patient examined by performing physician prior to the procedure on 05/23/2020 at No changes noted. If changes, see note below. Mallampati Classification 3 / ASA Classification III : per Physician . Procedure Procedure Type: Diagnostic procedure: Coronary angiography PCI procedure: PTCA / Bare Metal Stent:, RCA and / or branches Complications: - No complication Indications: - STEMI patient - Previous stent placement - Coronary risk factors - ECG changes Conclusions Procedure Summary Patent LCX stent (from 5 years ago) LAD has 40%n proximal stenosis RCA, dominant with 100% stenosis, required PTCA -BMS of distal RCA and proximal RPL branch (Due to bladder cancer and needs for surgery), LV gram was not done due to renal fiunction Recommendations Post IN and stent protocol Will not be clear for any surgery for at least 4 weeks. Signature - - Angiographic Findings Cardiac Arteries and Lesion Findings LMCA: Short with 20% stenosis LAD: Proximal 40% stenosis Minimal diffuse disease vdistally LCx: Proximal patent stent with 30% stennosis RCA: Distal 100% stenosis with thrombus and BRUNO [address] branch 100% with proximal lesion 99% stenosis Lesion on Dist RCA: Proximal subsection.100% stenosis 12 mm length reduced to 0%. Pre procedure BRUNO 0 flow was noted. Post Procedure BRUNO III flow was present. Poor runoff was present. The lesion was diagnosed as High Risk (C). Devices used - Luge Wire 182 cm. Number of passes: 1. - Trek Balloon 2.5mm x 12mm. 6 inflation(s) to a max pressure of: 15 odilon. - Pronto Extraction Catheter LP. Number of passes: 1. - Balloon of Vision Stent 2.5x12mm BMS. 1 inflation(s) to a max pressure of: 18 odilon. - Vision Stent 3.5x18mm BMS. 1 inflation(s) to a max pressure of: 9 odilon. Lesion on 1st RPL: Proximal subsection.100% stenosis 8 mm length reduced to 0%. Pre procedure BRUNO 0 flow was noted. Post Procedure BRUNO III flow was present. Poor runoff was present. The lesion was diagnosed as High Risk (C). Devices used - Mini Trek Balloon 2.0mm x 12mm. 2 inflation(s) to a max pressure of: 10 odilon. - Vision Stent 2.5x12mm BMS. 2 inflation(s) to a max pressure of: 10 odilon. Coronary Tree Dominance: Right Procedure Data Procedure Start Time: 05/23/2020 10:53. The procedure was explained in detail to the patient. Risks, complications and alternative treatments were reviewed. Written consent was obtained. Diagnostic Cath Status: Emergency Interventional Cath Status: Emergency Entry Locations - Percutaneous access was performed through the Right Femoral artery. A 6 Fr sheath was inserted. Procedure Medications: - Lidocaine HCl 1% 10mg/ml S.Q. 20 ml. - Heparin I.V. bolus 6000 units. - Atropine I.V. 0.5 mg. - Nitroglycerin I.C. 200 mcg. - Aggrastat I.V. bolus 41.3 . - Aggrastat I.V. drip 27 ml/hr. Catheters and Wires: - 6F Catheter JL 4 was used for Left coronary angiography. - 6F Guide Catheter JR4-SH was used for Right coronary angiography. Contrast Material: - Optiray [id number] ml Fluoroscopy Time: Diagnostic: 9:05 minutes. Total: 9:05 minutes. Estimated Blood Loss: 5 ml. Medical History Risk Factors The patient risk factors include:prior PCI;obesity, treated hypercholesterolemia, treated hypertension, chronic lung disease, last creatinine: 1.5 mg/dl, creatinine clearance: 49.48 ml/min, dyslipidemia and former tobacco use. 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 Hemodynamics Condition: Baseline Room Air Estimated: 227.04Heart Rate: 49 bpm Pressure +-----+ + !Site !Pressure ! +-----+ + !AO !104/51 (70) ! +-----+ + !AO !85/56 (70) ! +-----+ + !AO !133/68 (92) ! +-----+ + !AO !135/73 (101) ! +-----+ + Shunts Oxygen Values O2 [id number] Tipwoqsniqp929.04 [place] Metabolic Panelon 05-23-2020 GFR/1.73 sq M predicted among non-blacks MDRD (S/P/Bld) [Vol rate/Area] [place] Comment on above: Stage 1: Some kidney damage normal GFR Stage 2: Mild kidney damage GFR 60-89 Stage 3: Moderate kidney damage GFR 30-59 Stage 4: Severe kidney damage GFR 15-29 Stage 5: Severe kidney damage GFR <15 ESRD - chronic treatment by dialysis or transplant Average GFR for 70 o r more years old: 75 mL/min/1.73sq m Chronic Kidney Disease: <60 mL/min/1.73sq m Kidney failure: <15 mL/min/1.73sq m eGFR calculated using average adult body mass. Additional eGFR calculator available at: http://www.MXP4/multiple_crcl_2011.htm Otheron 05-23-2020 SARS-CoV-2 [place] Troponinon 05-23-2020 Troponin I.cardiac [Mass/Vol] NOT REPORTED [place] Troponin T.cardiac [Mass/Vol] NOT REPORTED <0.03 ng/mL [place] Troponin, High Sensitivity 14 ng/L 0 - 22 ng/L [place] Comment on above: High Sensitivity Troponin values cannot be compared with other Troponin methodologies. Patients with high levels of Biotin oral intake (i.e >5mg/day) may have falsely decreased Troponin levels. Samples collected within 8 hours of biotin intake may require additional information for diagnosis. XR CHEST PORTABLEon 05-23-20 20 Julien, Mhpn Incoming Radiant Results From [employer] - 05/23/2020 10:08 AM EST EXAMINATION: ONE XRAY VIEW OF THE CHEST 05/23/2020 9:59 am COMPARISON: February 12, 2018 CT a of the chest HISTORY: ORDERING SYSTEM PROVIDED HISTORY: Chest pain TECHNOLOGIST PROVIDED HISTORY: Chest pain FINDINGS: Normal cardiac silhouette Moderate tortuosity of the thoracic aorta There are no significant pleural or parenchymal findings There are Mariscal rods bridging the mid to lower thoracic spine IMPRESSION: No acute cardiopulmonary findings [place] EXAMINATION: ONE XRA Y VIEW OF THE CHEST 05/23/2020 9:59 am COMPARISON: February 12, 2018 CT a of the chest HISTORY: ORDERING SYSTEM PROVIDED HISTORY: Chest pain TECHNOLOGIST PROVIDED HISTORY: Chest pain FINDINGS: Normal cardiac silhouette Moderate tortuosity of the thoracic aorta There are no significant pleural or parenchymal findings There are Mariscal rods bridging the mid to lower thoracic spine [place] No acute cardiopulmonary findings [place] SPECIMEN REJECTIONon 020 Ordered Test ACOV [place] Reason for Rejection Unable to perform testing: Specimen received unlabeled. [place] Specimen source Nom (Unsp spec) .NASOPHARYNGEAL SWAB [place] - NOT REPORTED [place] Cytology, Non-Gynon 05-11-20 [place] Specimen Description URINE [place] EKG 12 Leadon 05-11-2020 Atrial Rate 65 BPM [place] P [place] 48 degrees [place] P-R Interval 160 ms [place] Q-T Interval 414 ms [place] QRS Duration 94 ms [place] QTc Calculation (Bazett) 430 ms [place] R [place] 12 degrees [place], [place] T [place] 31 degrees [place] Ventricular Rate 65 BPM [place] Normal sinus rhythm Normal ECG When compared with ECG of 18-DEC-2018 08:16, No significant change was found Confirmed by Dalila Munoz MD ([id number]) on 05/11/2020 9:02:00 PM [facility] Julien, Mhvalarie Incoming Ekg Results From [employer] - 05/11/2020 9:02 PM EST Normal sinus rhythm Normal ECG When compared with ECG of 18-DEC-2018 08:16, No significant change was found Confirmed by Dalila Munoz MD ([id number]) on 05/11/2020 9:02:00 PM Purple Binder[facility] XR BONE SURVEY COMPLETEon Skull: A new punched-out lesion in the left skull is noted. Cervical spine: Degenerative and degenerative disc changes are noted without evidence of acute fracture or bony destruction. Thoracic spine: Patient has paired fixative rods in the thoracic spine from T7 through T11. A dextroscoliotic curvature is noted. No acute fracture or bony destruction is noted. Degenerative and degenerative disc changes are present. Lumbar spine: Stable ventral lucency in L3 with central loss in height is noted. Patient has a lucency superior endplate and ventral aspect of L2 similar to that noted previously with anterior compression. No new changes are noted. Pedicles are intact. Significant spondylosis in the lumbar spine is noted. Humeri: Mineralization is adequate. No punched-out or destructive lesions. Pelvis: No acute abnormality. Mild heterogeneity in the right femoral neck is noted without sizable lytic lesions. No other areas of note are present. Femurs: With the exception of mild heterogeneity in the femoral neck on the right, no punched-out lesions are identified. RECOMMENDATION: 1. New lytic area in the left skull. 2. No change in demineralization in L2 and L3, appearance most compatible with stable lesions. 3. Stable heterogeneity in the right femoral neck. This is unchanged. 4. Other osseous structures demonstrate no suspicious punched-out areas. [facility] Binder[facility] EXAMINATION: COMPLET E BONE SURVEY 05/04/2020 2:07 pm COMPARISON: None. 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 HISTORY: ORDERING SYSTEM PROVIDED HISTORY: Multiple myeloma in remission (HCC) TECHNOLOGIST PROVIDED HISTORY: myeloma, rising light chains FINDINGS: 03 September 2018 IMPRESSION: Skull: A new punched-out lesion in the left skull is noted. Cervical spine: Degenerative and degenerative disc changes are noted without evidence of acute fracture or bony destruction. Thoracic spine: Patient has paired fixative rods in the thoracic spine from T7 through T11. A dextroscoliotic curvature is noted. No acute fracture or bony destruction is noted. Degenerative and degenerative disc changes are present. Lumbar spine: Stable ventral lucency in L3 with central loss in height is noted. Patient has a lucency superior endplate and ventral aspect of L2 similar to that noted previously with anterior compression. No new changes are noted. Pedicles are intact. Significant spondylosis in the lumbar spine is noted. Humeri: Mineralization is adequate. No punched-out or destructive lesions. Pelvis: No acute abnormality. Mild heterogeneity in the right femoral neck is noted without sizable lytic lesions. No other areas of note are present. Femurs: With the exception of mild heterogeneity in the femoral neck on the right, no punched-out lesions are identified. RECOMMENDATION: 1. New lytic area in the left skull. 2. No change in demineralization in L2 and L3, appearance most compatible with stable lesions. 3. Stable heterogeneity in the right femoral neck. This is unchanged. 4. Other osseous structures demonstrate no suspicious punched-out areas. [place] CBC Auto Differentialon 10-2 -2019 Basophils (Bld) [#/Vol] 0.09 10*3/uL [place] Basophils/100 WBC (Bld) 1 % 0 - 2 % M [place], [place] Differential Type NOT REPORTED [place] Eosinophils (Bld) [#/Vol] 0.26 10*3/uL [place] Eosinophils/100 WBC (Bld) 4 % 1 - 4 % [place] Erythrocyte distribution width (RBC) [Ratio] 14.2 % 11.8 - 14.4 % [place] Hematocrit (Bld) [Volume fraction] 42.9 % 40.7 - 50.3 % [place] Hemoglobin (Bld) [Mass/Vol] 13.9 g/dL 13 - 17 g/dL [place] Immature granulocytes (Bld) [#/Vol] 1 % High 0 [place] Immature granulocytes (Bld) [#/Vol] 0.03 10*3/uL [place] Interpretation and review of laboratory results Abnormal [place] Lymphocytes (Bld) [#/Vol] 1.39 10*3/uL [place] Lymphocytes/100 WBC (Bld) 21 % Low 24 - 43 % [place] MCH (RBC) [Entitic mass] 34.6 pg High 25. 2 - 33.5 pg [place] MCHC (RBC) [Mass/Vol] 32.4 g/dL 28.4 - 34.8 g/dL [place] MCV (RBC) [Entitic vol] 106.7 fL High 82.6 - 102.9 fL [place] Monocytes (Bld) [#/Vol] 0.95 10*3/uL [place] Monocytes/100 WBC (Bld) 15 % High 3 - 12 % [place] Platelet mean volume (Bld) [Entitic vol] 9.6 fL 8.1 - 13.5 fL [place] Platelets (Bld) [#/Vol] 222 10*3/uL [place] Platelets (Bld) [#/Vol] NOT REPORTED [place] RBC (Bld) [#/Vol] 4.02 10*6/uL Low 4.21 - 5.7 7 m/uL [place] RBC morphology finding Nom (Bld) NOT REPORTED [place] Segmented neutrophils/100 WBC (Bld) 58 % 36 - 65 % [place] Segs Absolute 3.83 [place] WBC (Bld) [#/Vol] 0.0 10*3/uL 0.0 per 10 0 WBC [place] WBC (Bld) [#/Vol] 6.6 10*3/uL [place] WBC Morphology NOT REPORTED [place] Comprehensive Metabolic Pane robin 04-22-2020 Albumin [Mass/Vol] 3.4 g/dL Low 3.5 - 5.2 g/dL [place] Albumin/Globulin [Mass ratio] 0.8 {ratio} Low [place] ALP [Catalytic activity/Vol] 65 U/L 40 - 129 U/L [place] ALT [Catalytic activity/Vol] 17 U/L 5 - 41 U/L [place] Anion gap [Moles/Vol] 10 mmol/L 9 - 17 mmol/L [place] AST [Catalytic activity/Vol] 26 U/L <40 [place] Bilirubin Ql (U) 0.54 mg/dL 0.3 - 1.2 mg/dL [place] Bun/Cre Ratio 13 [place] Calcium [Mass/Vol] 8.8 mg/dL 8.6 - 10. 4 mg/dL [place] Chloride [Moles/Vol] 100 mmol/L 98 - 10 7 mmol/L [place] CO2 [Moles/Vol] 25 mmol/L 20 - 31 mmol/L [place] Creatinine [Mass/Vol] 1.35 mg/dL High 0.7 - 1.2 mg/dL [place] GFR >60 >60 mL/min [place] GFR Non- 51 mL/min Low >60 [place] Glucose [Mass/Vol] 120 mg/dL High 70 - 99 mg/dL [place] Interpretation and review of laboratory results Abnormal [place] Potassium [Moles/Vol] 4.4 mmol/L 3.7 - 5.3 mmol/L [place] Protein [Mass/Vol] 7.6 g/dL 6.4 - 8.3 g/dL [place] Sodium [Moles/Vol] 135 mmol/L 135 - 144 mmol/L [place] Urea nitrogen [Mass/Vol] 18 mg/dL 8 - 23 mg/dL [place] Immunoglobulin Panel (IgG, I gA, IgM)on 04-22-2020 IgA [Mass/Vol] 534 mg/dL High 70 - 400 mg/dL [place] IgG [Mass/Vol] 1734 mg/dL High 700 - 1600 mg/dL [place] IgM [Mass/Vol] 43 mg/dL 40 - 230 mg/dL [place] Interpretation and review of laboratory results Abnormal [place] Le[place]/Lambda Free Lt Chains, Serum Quanton 04-22-2020 Free Leedey/Lambda Ratio 0.95 [place] Interpretation and review of laboratory results Abnormal [place] Free Light Chains QNT 4.15 mg/dL High 0.37 - 1.94 mg/dL [place] Lambda Free Light Chains QNT 4.38 mg/dL High 0.57 - 2.63 mg/dL [place] Metabolic Panelon 04-22-2020 GFR/1.73 sq M predicted among non-blacks MDRD (S/P/Bld) [Vol rate/Area] [place] Comment on above: Stage 1: Some kidney damage normal GFR Stage 2: Mild kidney damage GFR 60-89 Stage 3: Moderate kidney damage GFR 30-59 Stage 4: Severe kidney damage GFR 15-29 Stage 5: Severe kidney damage GFR <15 ESRD - chronic treatment by dialysis or transplant Average GFR for 70 o r more years old: 75 mL/min/1.73sq m Chronic Kidney Disease: <60 mL/min/1.73sq m Kidney failure: <15 mL/min/1.73sq m eGFR calculated using average adult body mass. Additional eGFR calculator available at: http://www.MXP4/multiple_crcl_2011.htm Cytology, Non-Gynon 03-10-20 [place] Specimen Description .VOIDED URINE [place], [place] CBC Auto Differentialon Basophils (Bld) [#/Vol] 0.11 10*3/uL [place] Basophils/100 WBC (Bld) 2 % 0 - 2 % [place], [place] Differential Type NOT REPORTED [place] Eosinophils (Bld) [#/Vol] 0.33 10*3/uL [place] Eosinophils/100 WBC (Bld) 5 % High 1 - 4 % [place] Erythrocyte distribution width (RBC) [Ratio] 13.6 % 11.8 - 14.4 % [place] Hematocrit (Bld) [Volume fraction] 43.3 % 40.7 - 50.3 % [place] Hemoglobin (Bld) [Mass/Vol] 14.2 g/dL 13 - 17 g/dL [place] Immature granulocytes (Bld) [#/Vol] 1 % High 0 [place] Immature granulocytes (Bld) [#/Vol] 0.03 10*3/uL [place] Interpretation and review of laboratory results Abnormal [place] Lymphocytes (Bld) [#/Vol] 1.53 10*3/uL [place] Lymphocytes/100 WBC (Bld) 24 % 24 - 43 % [place] MCH (RBC) [Entitic mass] 35.9 pg High 25. 2 - 33.5 pg [place] MCHC (RBC) [Mass/Vol] 32.8 g/dL 28.4 - 34.8 g/dL [place] MCV (RBC) [Entitic vol] 109.3 fL High 82.6 - 102.9 fL [place] Monocytes (Bld) [#/Vol] 0.72 10*3/uL [place] Monocytes/100 WBC (Bld) 11 % 3 - 12 % [place] Platelet mean volume (Bld) [Entitic vol] 10.6 fL 8.1 - 13.5 fL [place] Platelets (Bld) [#/Vol] 192 10*3/uL [place] Platelets (Bld) [#/Vol] NOT REPORTED [place] RBC (Bld) [#/Vol] 3.96 10*6/uL Low 4.21 - 5.7 7 m/uL [place] RBC morphology finding Nom (Bld) NOT REPORTED [place] Segmented neutrophils/100 WBC (Bld) 57 % 36 - 65 % [place] Segs Absolute 3.60 [place] WBC (Bld) [#/Vol] 0.0 10*3/uL 0.0 per 10 0 WBC [place] WBC (Bld) [#/Vol] 6.3 10*3/uL [place] WBC Morphology NOT REPORTED [place] Comprehensive Metabolic Pane robin 03-01-2020 Albumin [Mass/Vol] 3.8 g/dL 3.5 - 5.2 g/dL [place] Albumin/Globulin [Mass ratio] 1.1 {ratio} [place] ALP [Catalytic activity/Vol] 59 U/L 40 - 129 U/L [place] ALT [Catalytic activity/Vol] 20 U/L 5 - 41 U/L [place] Anion gap [Moles/Vol] 10 mmol/L 9 - 17 mmol/L [place] AST [Catalytic activity/Vol] 28 U/L <40 [place] Bilirubin Ql (U) 0.52 mg/dL 0.3 - 1.2 mg/dL [place] Bun/Cre Ratio 13 [place] Calcium [Mass/Vol] 9.4 mg/dL 8.6 - 10. 4 mg/dL [place] Chloride [Moles/Vol] 101 mmol/L 98 - 10 7 mmol/L [place] CO2 [Moles/Vol] 28 mmol/L 20 - 31 mmol/L [place] Creatinine [Mass/Vol] 1.51 mg/dL High 0.7 - 1.2 mg/dL [place] GFR 54 mL/min Low >60 [place] GFR Non- 45 mL/min Low >60 [place] Glucose [Mass/Vol] 88 mg/dL 70 - 99 mg/dL [place] Interpretation and review of laboratory results Abnormal [place] Potassium [Moles/Vol] 4.7 mmol/L 3.7 - 5.3 mmol/L [place] Protein [Mass/Vol] 7.4 g/dL 6.4 - 8.3 g/dL [place] Sodium [Moles/Vol] 139 mmol/L 135 - 144 mmol/L [place] Urea nitrogen [Mass/Vol] 20 mg/dL 8 - 23 mg/dL [place] Immunoglobulin Panel (IgG, I gA, IgM)on 03-01-2020 IgA [Mass/Vol] 518 mg/dL High 70 - 400 mg/dL [place] IgG [Mass/Vol] 1722 mg/dL High 700 - 1600 mg/dL [place] IgM [Mass/Vol] 46 mg/dL 40 - 230 mg/dL [place] Interpretation and review of laboratory results Abnormal [place]/Lambda Free Lt Chains, Serum Quanton 03-01-2020 Free [place]/Lambda Ratio 1.24 M [place] Interpretation and review of laboratory results Abnormal [place] Free Light Chains QNT 4.67 mg/dL High 0.37 - 1.94 mg/dL [place] Lambda Free Light Chains QNT 3.76 mg/dL High 0.57 - 2.63 mg/dL [place] Metabolic Panelon 03-01-2020 GFR/1.73 sq M predicted among non-blacks MDRD (S/P/Bld) [Vol rate/Area] [place] Comment on above: Stage 1: Some kidney damage normal GFR Stage 2: Mild kidney damage GFR 60-89 Stage 3: Moderate kidney damage GFR 30-59 Stage 4: Severe kidney damage GFR 15-29 Stage 5: Severe kidney damage GFR <15 ESRD - chronic treatment by dialysis or transplant Average GFR for 70 o r more years old: 75 mL/min/1.73sq m Chronic Kidney Disease: <60 mL/min/1.73sq m Kidney failure: <15 mL/min/1.73sq m eGFR calculated using average adult body mass. Additional eGFR calculator available at: http://www.MXP4/multiple_crcl_2012.htm PSA, [employer] 03-01-2020 Interpretation and review of laboratory results Abnormal [place] CBC Auto Differentialon 11-29 Basophils (Bld) [#/Vol] 0.05 10*3/uL [place] Basophils/100 WBC (Bld) 1 % 0 - 2 % M [place] Differential Type NOT REPORTED [place] Eosinophils (Bld) [#/Vol] 0.24 10*3/uL [place] Eosinophils/100 WBC (Bld) 3 % 1 - 4 % [place] Erythrocyte distribution width (RBC) [Ratio] 13.4 % 11.8 - 14.4 % [place] Hematocrit (Bld) [Volume fraction] 41.5 % 40.7 - 50.3 % [place] Hemoglobin (Bld) [Mass/Vol] 13.7 g/dL 13 - 17 g/dL [place] Immature granulocytes (Bld) [#/Vol] 1 % High 0 [place] Immature granulocytes (Bld) [#/Vol] 0.04 10*3/uL [place] Interpretation and review of laboratory results Abnormal [place] Lymphocytes (Bld) [#/Vol] 1.33 10*3/uL [place] Lymphocytes/100 WBC (Bld) 17 % Low 24 - 43 % [place] MCH (RBC) [Entitic mass] 36.2 pg High 25. 2 - 33.5 pg [place] MCHC (RBC) [Mass/Vol] 33.0 g/dL 28.4 - 34.8 g/dL [place] MCV (RBC) [Entitic vol] 109.8 fL High 82.6 - 102.9 fL [place] Monocytes (Bld) [#/Vol] 1.15 10*3/uL [place] Monocytes/100 WBC (Bld) 15 % High 3 - 12 % [place] Platelet mean volume (Bld) [Entitic vol] 10.0 fL 8.1 - 13.5 fL [place] Platelets (Bld) [#/Vol] 187 10*3/uL [place] Platelets (Bld) [#/Vol] NOT REPORTED [place] RBC (Bld) [#/Vol] 3.78 10*6/uL Low 4.21 - 5.7 7 m/uL [place] RBC morphology finding Nom (Bld) NOT REPORTED [place] Segmented neutrophils/100 WBC (Bld) 63 % 36 - 65 % [place] Segs Absolute 5.00 [place] WBC (Bld) [#/Vol] 7.8 10*3/uL [place] WBC (Bld) [#/Vol] 0.0 10*3/uL 0.0 per 10 0 WBC [place] WBC Morphology NOT REPORTED [place] Comprehensive Metabolic Pane robin 12-14-2019 Albumin [Mass/Vol] 3.5 g/dL 3.5 - 5.2 g/dL [place] Albumin/Globulin [Mass ratio] 0.9 {ratio} Low [place] ALP [Catalytic activity/Vol] 60 U/L 40 - 129 U/L [place] ALT [Catalytic activity/Vol] 25 U/L 5 - 41 U/L [place] Anion gap [Moles/Vol] 10 mmol/L 9 - 17 mmol/L [place] AST [Catalytic activity/Vol] 37 U/L <40 [place] Bilirubin Ql (U) 0.40 mg/dL 0.3 - 1.2 mg/dL [place] Bun/Cre Ratio 14 [place] Calcium [Mass/Vol] 8.8 mg/dL 8.6 - 10. 4 mg/dL [place] Chloride [Moles/Vol] 99 mmol/L 98 - 10 7 mmol/L [place] CO2 [Moles/Vol] 26 mmol/L 20 - 31 mmol/L [place] Creatinine [Mass/Vol] 1.44 mg/dL High 0.7 - 1.2 mg/dL [place] GFR 58 mL/min Low >60 [place] GFR Non- 48 mL/min Low >60 [place] Glucose [Mass/Vol] 156 mg/dL High 70 - 99 mg/dL [place] Interpretation and review of laboratory results Abnormal [place] Potassium [Moles/Vol] 4.2 mmol/L 3.7 - 5.3 mmol/L [place] Protein [Mass/Vol] 7.4 g/dL 6.4 - 8.3 g/dL [place] Sodium [Moles/Vol] 135 mmol/L 135 - 144 mmol/L [place] Urea nitrogen [Mass/Vol] 20 mg/dL 8 - 23 mg/dL [place] Immunoglobulin Panel (IgG, I gA, IgM)on 12-14-2019 IgA [Mass/Vol] 443 mg/dL High 70 - 400 mg/dL [place] IgG [Mass/Vol] 1592 mg/dL 700 - 1600 mg/dL [place] IgM [Mass/Vol] 46 mg/dL 40 - 230 mg/dL [place] Interpretation and review of laboratory results Abnormal [place] Le[place]/Lambda Free Lt Chains, Serum Quanton 12-14-2019 Free [place]/Lambda Ratio 1.80 High M [place] Interpretation and review of laboratory results Abnormal [place] Free Light Chains QNT 4.43 mg/dL High 0.37 - 1.94 mg/dL [place] Lambda Free Light Chains QNT 2.46 mg/dL 0.57 - 2.63 mg/dL [place] Metabolic Panelon 12-14-2019 GFR/1.73 sq M predicted among non-blacks MDRD (S/P/Bld) [Vol rate/Area] [place] Comment on above: Stage 1: Some kidney damage normal GFR Stage 2: Mild kidney damage GFR 60-89 Stage 3: Moderate kidney damage GFR 30-59 Stage 4: Severe kidney damage GFR 15-29 Stage 5: Severe kidney damage GFR <15 ESRD - chronic treatment by dialysis or transplant Average GFR for 70 o r more years old: 75 mL/min/1.73sq m Chronic Kidney Disease: <60 mL/min/1.73sq m Kidney failure: <15 mL/min/1.73sq m eGFR calculated using average adult body mass. Additional eGFR calculator available at: http://www.[employer]nera.Changelight/multiple_crcl_2012.htm Immunoglobulin Panel (IgG, I gA, IgM)on 09-16-2019 IgA [Mass/Vol] 492 mg/dL High 70 - 400 mg/dL [place] IgG [Mass/Vol] 1625 mg/dL High 700 - 1600 mg/dL [place] IgM [Mass/Vol] 42 mg/dL 40 - 230 mg/dL [place] Interpretation and review of laboratory results Abnormal [place] Le[place]/Lambda Free Lt Chains, Serum Quanton 09-16-2019 Free [place]/Lambda Ratio 1.48 [place] Interpretation and review of laboratory results Abnormal [place] Free Light Chains QNT 4.57 mg/dL High 0.37 - 1.94 mg/dL [place] Lambda Free Light Chains QNT 3.08 mg/dL High 0.57 - 2.63 mg/dL [place] Basic Metabolic Panelon 08-29 Anion gap [Moles/Vol] 10 mmol/L 9 - 17 mmol/L [place] Bun/Cre Ratio 13 [place] Calcium [Mass/Vol] 9.1 mg/dL 8.6 - 10. 4 mg/dL [place] Chloride [Moles/Vol] 101 mmol/L 98 - 10 7 mmol/L [place] CO2 [Moles/Vol] 25 mmol/L 20 - 31 mmol/L [place] Creatinine [Mass/Vol] 1.59 mg/dL High 0.7 - 1.2 mg/dL [place] GFR 51 mL/min Low >60 [place] GFR Non- 42 mL/min Low >60 [place] Glucose [Mass/Vol] 95 mg/dL 70 - 99 mg/dL [place] Interpretation and review of laboratory results Abnormal [place] Potassium [Moles/Vol] 4.6 mmol/L 3.7 - 5.3 mmol/L [place] Sodium [Moles/Vol] 136 mmol/L 135 - 144 mmol/L [place] Urea nitrogen [Mass/Vol] 21 mg/dL 8 - 23 mg/dL [place] CBC Auto Differentialon 08-29 Basophils (Bld) [#/Vol] 0.12 10*3/uL [place] Basophils/100 WBC (Bld) 2 % 0 - 2 % [place] Differential Type NOT REPORTED [place] Eosinophils (Bld) [#/Vol] 0.38 10*3/uL [place] Eosinophils/100 WBC (Bld) 6 % High 1 - 4 % [place] Erythrocyte distribution width (RBC) [Ratio] 14.3 % 11.8 - 14.4 % [place] Hematocrit (Bld) [Volume fraction] 44.6 % 40.7 - 50.3 % [place] Hemoglobin (Bld) [Mass/Vol] 14.6 g/dL 13 - 17 g/dL [place] Immature granulocytes (Bld) [#/Vol] 0 % 0 [place] Immature granulocytes (Bld) [#/Vol] 10*3/uL [place] Interpretation and review of laboratory results Abnormal [place] Lymphocytes (Bld) [#/Vol] 1.34 10*3/uL [place] Lymphocytes/100 WBC (Bld) 21 % Low 24 - 43 % [place] MCH (RBC) [Entitic mass] 35.4 pg High 25. 2 - 33.5 pg [place] MCHC (RBC) [Mass/Vol] 32.7 g/dL 28.4 - 34.8 g/dL [place] MCV (RBC) [Entitic vol] 108.3 fL High 82.6 - 102.9 fL [place] Monocytes (Bld) [#/Vol] 1.08 10*3/uL [place] Monocytes/100 WBC (Bld) 17 % High 3 - 12 % [place] Platelet mean volume (Bld) [Entitic vol] 10.1 fL 8.1 - 13.5 fL [place] Platelets (Bld) [#/Vol] NOT REPORTED [place] Platelets (Bld) [#/Vol] 198 10*3/uL [place] RBC (Bld) [#/Vol] 4.12 10*6/uL Low 4.21 - 5.7 7 m/uL [place] RBC morphology finding Nom (Bld) NOT REPORTED [place] Segmented neutrophils/100 WBC (Bld) 54 % 36 - 65 % [place] Segs Absolute 3.53 [place] WBC (Bld) [#/Vol] 6.5 10*3/uL [place] WBC (Bld) [#/Vol] 0.0 10*3/uL 0.0 per 10 0 WBC [place] WBC Morphology NOT REPORTED [place] Metabolic Panelon 09-09-2019 GFR/1.73 sq M predicted among non-blacks MDRD (S/P/Bld) [Vol rate/Area] [place] Comment on above: Stage 1: Some kidney damage normal GFR Stage 2: Mild kidney damage GFR 60-89 Stage 3: Moderate kidney damage GFR 30-59 Stage 4: Severe kidney damage GFR 15-29 Stage 5: Severe kidney damage GFR <15 ESRD - chronic treatment by dialysis or transplant Average GFR for 70 o r more years old: 75 mL/min/1.73sq m Chronic Kidney Disease: <60 mL/min/1.73sq m Kidney failure: <15 mL/min/1.73sq m eGFR calculated using average adult body mass. Additional eGFR calculator available at: http://www.[employer]nera.Changelight/multiple_crcl_2012.htm PSA, [employer] 09-09-2019 Interpretation and review of laboratory results Abnormal [place] Cytology, Non-Gynon 09-02-19 [place] Specimen Description NOT REPORTED [place], [place] Basic metabolic 2000 panelon 08-14-2019 Anion gap [Moles/Vol] 9.5 mmol/L 6.0 - 18.0 mmol/L [facility] Calcium [Mass/Vol] 8.9 mg/dL 8.0 - 10. 5 mg/dL [facility] Chloride [Moles/Vol] 104 mmol/L 99 - 11 1 mmol/L [facility] CO2 [Moles/Vol] 29 mmol/L 21 - 32 mmol/L [facility] Creatinine [Mass/Vol] 1.5 mg/dL 0.5 - 1.5 mg/dL [facility] GFR/1.73 sq M.predicted among blacks MDRD (S/P/Bld) [Vol rate/Area] 55 mL/min/{1.73_m2} Low >=60 mL/min [facility] GFR/1.73 sq M.predicted among non-blacks MDRD (S/P/Bld) [Vol rate/Area] 45 mL/min/{1.73_m2} Low >=60 mL/min [facility] Glucose [Mass/Vol] 82 mg/dL 70 - 105 mg/dL [facility] Potassium [Moles/Vol] 4.5 mmol/L 3.3 - 5.1 mmol/L [facility] Sodium [Moles/Vol] 138 mmol/L 133 - 145 mmol/L [facility] Urea nitrogen [Mass/Vol] 23 mg/dL 6 - 25 mg/dL [facility] CBC W Auto Differential pane l (Bld)on 08-14-2019 Abs. Baso 0.13 10*3/uL High 0.00 - 0.10 10*3/uL [facility] Abs. Tate 0.85 10*3/uL 0.16 - 1.00 10*3/uL [facility] Basophils/100 WBC (Bld) 2.1 % High 0.0 - 1.2 % [facility] Eosinophils (Bld) [#/Vol] 0.41 10*3/uL High 0.00 - 0.38 10*3/uL [facility] Eosinophils/100 WBC (Bld) 6.7 % High 0.0 - 5.0 % [facility] Erythrocyte distribution width (RBC) [Ratio] 14.2 % 11.5 - 15.0 % [facility] Hematocrit (Bld) [Volume fraction] 42.4 % 36.0 - 50.0 % [facility] Hemoglobin (Bld) [Mass/Vol] 13.7 g/dL 12.8 - 17.5 g/dL [facility] IgA 0.02 10*3/uL 0.00 - 0.10 10*3/uL [facility] IgE 0.3 % 0.0 - 1.0 % [facility] Lymphocytes (Bld) [#/Vol] 1.27 10*3/uL 0.80 - 3.10 10*3/uL [facility] Lymphocytes/100 WBC (Bld) 20.7 % 15.0 - 40.0 % [facility] MCH (RBC) [Entitic mass] 34.4 pg High 27. 0 - 34.0 pg [facility] MCHC (RBC) [Mass/Vol] 32.3 g/dL 32.0 - 36.0 g/dL [facility] MCV (RBC) [Entitic vol] 106.5 fL High 80.0 - 100.0 fL [facility] Monocytes/100 WBC (Bld) 13.9 % High 3.0 - 12.0 % [facility] NEUTROPHILS,ABSOLUTE 3.45 10*3/uL 1.50 - 7.40 10*3/uL [facility] Neutrophils/100 WBC (Bld) 56.3 % 43.0 - 80.0 % [facility] Pathologist review Pathologist comment (Bld) [Interp] 6.1 10*3/uL 4.0 - 11.5 10*3/uL [facility] Platelet mean volume (Bld) [Entitic vol] 11.3 fL 7.0 - 12.5 fL [facility] Platelets (Bld) [#/Vol] 174 10*3/uL 140 - 400 10*3/uL [facility] RBC (Bld) [#/Vol] 3.98 10*6/uL 3.80 - 5.5 0 10*6/uL [facility] Basic metabolic 2000 panelon 07-14-2019 Anion gap [Moles/Vol] 11.2 mmol/L 6.0 - 18.0 mmol/L [facility] Calcium [Mass/Vol] 9.2 mg/dL 8.0 - 10. 5 mg/dL [facility] Chloride [Moles/Vol] 102 mmol/L 99 - 11 1 mmol/L [facility] CO2 [Moles/Vol] 30 mmol/L 21 - 32 mmol/L [facility] Creatinine [Mass/Vol] 1.4 mg/dL 0.5 - 1.5 mg/dL [facility] GFR/1.73 sq M.predicted among blacks MDRD (S/P/Bld) [Vol rate/Area] 59 mL/min/{1.73_m2} Low >=60 mL/min [facility] GFR/1.73 sq M.predicted among non-blacks MDRD (S/P/Bld) [Vol rate/Area] 49 mL/min/{1.73_m2} Low >=60 mL/min [facility] Glucose [Mass/Vol] 86 mg/dL 70 - 105 mg/dL [facility] Potassium [Moles/Vol] 4.2 mmol/L 3.3 - 5.1 mmol/L [facility] Sodium [Moles/Vol] 139 mmol/L 133 - 145 mmol/L [facility] Urea nitrogen [Mass/Vol] 22 mg/dL 6 - 25 mg/dL [facility] CBC W Auto Differential pane l (Bld)on 07-14-2019 Erythrocyte distribution width (RBC) [Ratio] 13.7 % 11.5 - 15.0 % [facility] Hematocrit (Bld) [Volume fraction] 43.7 % 36.0 - 50.0 % [facility] Hemoglobin (Bld) [Mass/Vol] 14.3 g/dL 12.8 - 17.5 g/dL [facility] MCH (RBC) [Entitic mass] 34.7 pg High 27. 0 - 34.0 pg [facility] MCHC (RBC) [Mass/Vol] 32.7 g/dL 32.0 - 36.0 g/dL [facility] MCV (RBC) [Entitic vol] 106.1 fL High 80.0 - 100.0 fL [facility] Pathologist review Pathologist comment (Bld) [Interp] 6.5 10*3/uL 4.0 - 11.5 10*3/uL [facility] Platelet mean volume (Bld) [Entitic vol] 10.6 fL 7.0 - 12.5 fL [facility] Platelets (Bld) [#/Vol] 216 10*3/uL 140 - 400 10*3/uL [facility] RBC (Bld) [#/Vol] 4.12 10*6/uL 3.80 - 5.5 0 10*6/uL [facility] MANUAL SCAN/DIFFon 0 Abs Eos (Manual Diff) 0.52 10*3/uL High 0.00 - 0.38 10*3/uL [facility] Abs Neut (Manual Diff) 3.38 10*3/uL 1.50 - 7.40 10*3/uL [facility] Abs. Lymph 1.82 10*3/uL 0.80 - 3.10 10*3/uL [facility] Abs. Tate 0.65 10*3/uL 0.16 - 1.00 10*3/uL [facility] Band form neutrophils (Bld) [#/Vol] 0.13 10*3/uL 0.00 - 0.69 10*3/uL [facility] Bands % 2 % 0 - 6 % [facility] BASOPHILS,ABSOLUTE 0.13 10*3/uL High 0.00 - 0. 10 10*3/uL [facility] Basophils/100 WBC Manual cnt (Syn fld) 2 % High 0 - 1 % [facility] Eosin% 8 % High 0 - 5 % [facility] Lymph% 28 % 15 - 40 % [facility] Macrocytosis Slight [facility] Tate% 10 % 3 - 12 % [facility] Neut % (Manual Diff) 50 % 47 - 80 % [facility] Platelet Morphology Normal Normal [facility] Platelet Sufficiency Normal Normal [facility] Basic Metabolic Panelon 11-2 Anion gap [Moles/Vol] 3 mmol/L Low 9 - 17 mmol/L [place] Bun/Cre Ratio 15 [place] Calcium [Mass/Vol] 9.2 mg/dL 8.6 - 10. 4 mg/dL [place] Chloride [Moles/Vol] 100 mmol/L 98 - 10 7 mmol/L [place] CO2 [Moles/Vol] 36 mmol/L High 20 - 31 mmol/L [place] Creatinine [Mass/Vol] 1.3 mg/dL High 0.7 - 1.2 mg/dL [place] GFR >60 >60 mL/min [place] GFR Non- 54 mL/min Low >60 [place] Glucose [Mass/Vol] 84 mg/dL 70 - 99 mg/dL [place] Interpretation and review of laboratory results Abnormal [place] Potassium [Moles/Vol] 5.0 mmol/L 3.7 - 5.3 mmol/L [place] Sodium [Moles/Vol] 139 mmol/L 135 - 144 mmol/L [place] Urea nitrogen [Mass/Vol] 19 mg/dL 8 - 23 mg/dL [place] CBC Auto Differentialon 11-2 0-2019 Basophils (Bld) [#/Vol] 0.09 10*3/uL [place] Basophils/100 WBC (Bld) 2 % 0 - 2 % M [place], [place] Differential Type NOT REPORTED [place] Eosinophils (Bld) [#/Vol] 0.30 10*3/uL [place] Eosinophils/100 WBC (Bld) 6 % High 1 - 4 % [place] Erythrocyte distribution width (RBC) [Ratio] 13.0 % 11.8 - 14.4 % [place] Hematocrit (Bld) [Volume fraction] 43.6 % 40.7 - 50.3 % [place] Hemoglobin (Bld) [Mass/Vol] 14.3 g/dL 13 - 17 g/dL [place] Immature granulocytes (Bld) [#/Vol] 1 % High 0 [place] Immature granulocytes (Bld) [#/Vol] 0.03 10*3/uL [place] Interpretation and review of laboratory results Abnormal [place] Lymphocytes (Bld) [#/Vol] 0.97 10*3/uL [place] Lymphocytes/100 WBC (Bld) 18 % Low 24 - 43 % [place] MCH (RBC) [Entitic mass] 34.9 pg High 25. 2 - 33.5 pg [place] MCHC (RBC) [Mass/Vol] 32.8 g/dL 28.4 - 34.8 g/dL [place] MCV (RBC) [Entitic vol] 106.3 fL High 82.6 - 102.9 fL [place] Monocytes (Bld) [#/Vol] 1.19 10*3/uL [place] Monocytes/100 WBC (Bld) 22 % High 3 - 12 % M [place], [place] Platelet mean volume (Bld) [Entitic vol] 9.9 fL 8.1 - 13.5 fL [place] Platelets (Bld) [#/Vol] NOT REPORTED [place] Platelets (Bld) [#/Vol] 227 10*3/uL [place] RBC (Bld) [#/Vol] 4.10 10*6/uL Low 4.21 - 5.7 7 m/uL [place] RBC morphology finding Nom (Bld) NOT REPORTED [place] Segmented neutrophils/100 WBC (Bld) 51 % 36 - 65 % [place] Segs Absolute 2.84 [place] WBC (Bld) [#/Vol] 5.4 10*3/uL [place] WBC (Bld) [#/Vol] 0.0 10*3/uL 0.0 per 10 0 WBC [place] WBC Morphology NOT REPORTED [place] Metabolic Panelon 05-20-2019 GFR/1.73 sq M predicted among non-blacks MDRD (S/P/Bld) [Vol rate/Area] [place], [place] Comment on above: Stage 1: Some kidney damage normal GFR Stage 2: Mild kidney damage GFR 60-89 Stage 3: Moderate kidney damage GFR 30-59 Stage 4: Severe kidney damage GFR 15-29 Stage 5: Severe kidney damage GFR <15 ESRD - chronic treatment by dialysis or transplant Average GFR for 70 o r more years old: 75 mL/min/1.73sq m Chronic Kidney Disease: <60 mL/min/1.73sq m Kidney failure: <15 mL/min/1.73sq m eGFR calculated using average adult body mass. Additional eGFR calculator available at: http://[email or web address].Changelight/multiple_crcl_2012.htm CBC Auto Differentialon 3 Basophils (Bld) [#/Vol] 0.00 10*3/uL [place] Basophils/100 WBC (Bld) 0 % 0 - 2 % M [place] Differential Type NOT REPORTED [place] Eosinophils (Bld) [#/Vol] 0.45 10*3/uL High [place] Eosinophils/100 WBC (Bld) 5 % High 1 - 4 % [place] Erythrocyte distribution width (RBC) [Ratio] 13.3 % 11.8 - 14.4 % [place] Hematocrit (Bld) [Volume fraction] 44.3 % 40.7 - 50.3 % [place] Hemoglobin (Bld) [Mass/Vol] 14.2 g/dL 13 - 17 g/dL [place] Immature granulocytes (Bld) [#/Vol] 0.00 10*3/uL [place] Immature granulocytes (Bld) [#/Vol] 0 % 0 [place] Interpretation and review of laboratory results Abnormal [place] Lymphocytes (Bld) [#/Vol] 0.72 10*3/uL Low [place] Lymphocytes/100 WBC (Bld) 8 % Low 24 - 43 % [place] MCH (RBC) [Entitic mass] 34.8 pg High 25. 2 - 33.5 pg [place] MCHC (RBC) [Mass/Vol] 32.1 g/dL 28.4 - 34.8 g/dL [place] MCV (RBC) [Entitic vol] 108.6 fL High 82.6 - 102.9 fL [place] Monocytes (Bld) [#/Vol] 1.71 10*3/uL High [place] Monocytes/100 WBC (Bld) 19 % High 3 - 12 % M [place] Morphology Aashish (Bld) [Interp] Normal [place] Platelet mean volume (Bld) [Entitic vol] 10.8 fL 8.1 - 13.5 fL [place] Platelets (Bld) [#/Vol] 165 10*3/uL [place] Platelets (Bld) [#/Vol] NOT REPORTED [place] RBC (Bld) [#/Vol] 4.08 10*6/uL Low 4.21 - 5.7 7 m/uL [place] RBC morphology finding Nom (Bld) NOT REPORTED [place] Segmented neutrophils/100 WBC (Bld) 68 % High 36 - 65 % [place] Segs Absolute 6.12 [place] WBC (Bld) [#/Vol] 0.0 10*3/uL 0.0 per 10 0 WBC [place] WBC (Bld) [#/Vol] 9.0 10*3/uL [place] WBC Morphology NOT REPORTED [place] Comprehensive Metabolic Pane robin 04-30-2019 Albumin [Mass/Vol] 3.4 g/dL Low 3.5 - 5.2 g/dL [place] Albumin/Globulin [Mass ratio] 1.0 {ratio} [place] ALP [Catalytic activity/Vol] 56 U/L 40 - 129 U/L [place] ALT [Catalytic activity/Vol] 19 U/L 5 - 41 U/L [place] Anion gap [Moles/Vol] 9 mmol/L 9 - 17 mmol/L [place] AST [Catalytic activity/Vol] 27 U/L <40 [place] Bilirubin Ql (U) 0.41 mg/dL 0.3 - 1.2 mg/dL [place] Bun/Cre Ratio 13 [place] Calcium [Mass/Vol] 8.9 mg/dL 8.6 - 10. 4 mg/dL [place] Chloride [Moles/Vol] 99 mmol/L 98 - 10 7 mmol/L [place] CO2 [Moles/Vol] 29 mmol/L 20 - 31 mmol/L [place] Creatinine [Mass/Vol] 1.49 mg/dL High 0.7 - 1.2 mg/dL [place] GFR 55 mL/min Low >60 [place] GFR Non- 46 mL/min Low >60 [place] Glucose [Mass/Vol] 89 mg/dL 70 - 99 mg/dL [place] Interpretation and review of laboratory results Abnormal [place] Potassium [Moles/Vol] 4.6 mmol/L 3.7 - 5.3 mmol/L [place] Protein [Mass/Vol] 6.8 g/dL 6.4 - 8.3 g/dL [place] Sodium [Moles/Vol] 137 mmol/L 135 - 144 mmol/L [place] Urea nitrogen [Mass/Vol] 19 mg/dL 8 - 23 mg/dL [place] Metabolic Panelon 04-30-2019 GFR/1.73 sq M predicted among non-blacks MDRD (S/P/Bld) [Vol rate/Area] [place] Comment on above: Stage 1: Some kidney damage normal GFR Stage 2: Mild kidney damage GFR 60-89 Stage 3: Moderate kidney damage GFR 30-59 Stage 4: Severe kidney damage GFR 15-29 Stage 5: Severe kidney damage GFR <15 ESRD - chronic treatment by dialysis or transplant Average GFR for 70 o r more years old: 75 mL/min/1.73sq m Chronic Kidney Disease: <60 mL/min/1.73sq m Kidney failure: <15 mL/min/1.73sq m eGFR calculated using average adult body mass. Additional eGFR calculator available at: http://[email or web address]/multiple_crcl_2012.htm CBC Auto DifferentialOrdered By: Nic Garcia on 04-23-2019 Absolute Eos # 0.28 [place] Absolute Immature Granulocyte 0.08 [place] Absolute Lymph # 1.22 [place] Absolute Tate # 1.08 [place] Basophils (Bld) [#/Vol] 0.08 10*3/uL [place] Basophils/100 WBC (Bld) 1 % 0 - 2 % M [place], [place] Differential Type NOT REPORTED [place] Eosinophils/100 WBC (Bld) 4 % 1 - 4 % [place] Erythrocyte distribution width (RBC) [Ratio] 13.5 % 11.8 - 14.4 % [place] Hematocrit (Bld) [Volume fraction] 42.6 % 40.7 - 50.3 % [place] Hemoglobin (Bld) [Mass/Vol] 13.9 g/dL 13 - 17 g/dL [place] Immature granulocytes/100 WBC (Bld) 1 % High 0 [place] Interpretation and review of laboratory results Abnormal [place] Lymphocytes/100 WBC (Bld) 18 % Low 24 - 43 % [place] MCH (RBC) [Entitic mass] 35.4 pg High 25. 2 - 33.5 pg [place] MCHC (RBC) [Mass/Vol] 32.6 g/dL 28.4 - 34.8 g/dL [place] MCV (RBC) [Entitic vol] 108.4 fL High 82.6 - 102.9 fL [place] Monocytes/100 WBC (Bld) 16 % High 3 - 12 % M [place] NRBC Automated 0.0 0.0 per 100 WBC [place] Platelet Estimate NOT REPORTED [place] Platelet mean volume (Bld) [Entitic vol] 10.8 fL 8.1 - 13.5 fL [place] Platelets (Bld) [#/Vol] 165 10*3/uL [place] RBC (Bld) [#/Vol] 3.93 10*6/uL Low 4.21 - 5.7 7 m/uL [place] RBC morphology finding Nom (Bld) NOT REPORTED [place] Segmented neutrophils/100 WBC (Bld) 60 % 36 - 65 % [place] Segs Absolute 4.02 [place] WBC (Bld) [#/Vol] 6.8 10*3/uL [place] WBC Morphology NOT REPORTED [place] Comprehensive Metabolic Pane lOrdered By: Nic Garcia on 04-23-2019 Albumin [Mass/Vol] 3.6 g/dL 3.5 - 5.2 g/dL [place] Albumin/Globulin [Mass ratio] 1.1 {ratio} [place] ALP [Catalytic activity/Vol] 49 U/L 40 - 129 U/L [place] ALT [Catalytic activity/Vol] 18 U/L 5 - 41 U/L [place] Anion gap [Moles/Vol] 12 mmol/L 9 - 17 mmol/L [place] AST [Catalytic activity/Vol] 33 U/L <40 [place] Bilirubin [Mass/Vol] 0.46 mg/dL 0.3 - 1 .2 mg/dL [place] Bun/Cre Ratio 15 [place] Calcium [Mass/Vol] 9.3 mg/dL 8.6 - 10. 4 mg/dL [place] Chloride [Moles/Vol] 100 mmol/L 98 - 10 7 mmol/L [place] CO2 [Moles/Vol] 27 mmol/L 20 - 31 mmol/L [place] Creatinine [Mass/Vol] 1.36 mg/dL High 0.7 - 1.2 mg/dL [place] GFR >60 >60 mL/min [place] GFR Comment [place] Comment on above: Average GFR for 70 o r more years old: 75 mL/min/1.73sq m Chronic Kidney Disease: <60 mL/min/1.73sq m Kidney failure: <15 mL/min/1.73sq m eGFR calculated using average adult body mass. Additional eGFR calculator available at: http://www.[employer].Changelight/multiple_crcl_2012.htm GFR Non- 51 mL/min Low >60 [place] GFR Staging [place] Comment on above: Stage 1: Some kidney damage normal GFR Stage 2: Mild kidney damage GFR 60-89 Stage 3: Moderate kidney damage GFR 30-59 Stage 4: Severe kidney damage GFR 15-29 Stage 5: Severe kidney damage GFR <15 ESRD - chronic treatment by dialysis or transplant Glucose [Mass/Vol] 94 mg/dL 70 - 99 mg/dL [place] Interpretation and review of laboratory results Abnormal [place] Potassium [Moles/Vol] 4.4 mmol/L 3.7 - 5.3 mmol/L [place] Protein [Mass/Vol] 6.8 g/dL 6.4 - 8.3 g/dL [place] Sodium [Moles/Vol] 139 mmol/L 135 - 144 mmol/L [place] Urea nitrogen [Mass/Vol] 20 mg/dL 8 - 23 mg/dL [place] CBC Auto Differentialon 03-31 Basophils (Bld) [#/Vol] 0.10 10*3/uL [place] Basophils/100 WBC (Bld) 1 % 0 - 2 % M [place] Differential Type NOT REPORTED [place] Eosinophils (Bld) [#/Vol] 0.25 10*3/uL [place] Eosinophils/100 WBC (Bld) 3 % 1 - 4 % [place] Erythrocyte distribution width (RBC) [Ratio] 14.2 % 11.8 - 14.4 % [place] Hematocrit (Bld) [Volume fraction] 40.6 % Low 40.7 - 50.3 % [place] Hemoglobin (Bld) [Mass/Vol] 13.3 g/dL 13 - 17 g/dL [place] Immature granulocytes (Bld) [#/Vol] 0 % 0 [place] Immature granulocytes (Bld) [#/Vol] 10*3/uL [place] Interpretation and review of laboratory results Abnormal [place] Lymphocytes (Bld) [#/Vol] 1.41 10*3/uL [place] Lymphocytes/100 WBC (Bld) 17 % Low 24 - 43 % [place] MCH (RBC) [Entitic mass] 35.2 pg High 25. 2 - 33.5 pg [place] MCHC (RBC) [Mass/Vol] 32.8 g/dL 28.4 - 34.8 g/dL [place] MCV (RBC) [Entitic vol] 107.4 fL High 82.6 - 102.9 fL [place] Monocytes (Bld) [#/Vol] 1.15 10*3/uL [place] Monocytes/100 WBC (Bld) 14 % High 3 - 12 % M [place] Platelet mean volume (Bld) [Entitic vol] 9.7 fL 8.1 - 13.5 fL [place] Platelets (Bld) [#/Vol] NOT REPORTED [place] Platelets (Bld) [#/Vol] 224 10*3/uL [place] RBC (Bld) [#/Vol] 3.78 10*6/uL Low 4.21 - 5.7 7 m/uL [place] RBC morphology finding Nom (Bld) NOT REPORTED [place] Segmented neutrophils/100 WBC (Bld) 65 % 36 - 65 % [place] Segs Absolute 5.21 [place] WBC (Bld) [#/Vol] 0.0 10*3/uL 0.0 per 10 0 WBC [place] WBC (Bld) [#/Vol] 8.1 10*3/uL [place] WBC Morphology NOT REPORTED [place] Comprehensive Metabolic Pane robin 04-16-2019 Albumin [Mass/Vol] 3.4 g/dL Low 3.5 - 5.2 g/dL [place] Albumin/Globulin [Mass ratio] 1.0 {ratio} [place] ALP [Catalytic activity/Vol] 53 U/L 40 - 129 U/L [place] ALT [Catalytic activity/Vol] 24 U/L 5 - 41 U/L [place] Anion gap [Moles/Vol] 13 mmol/L 9 - 17 mmol/L [place] AST [Catalytic activity/Vol] 32 U/L <40 [place] Bilirubin Ql (U) 0.52 mg/dL 0.3 - 1.2 mg/dL [place] Bun/Cre Ratio 16 [place] Calcium [Mass/Vol] 9.0 mg/dL 8.6 - 10. 4 mg/dL [place] Chloride [Moles/Vol] 100 mmol/L 98 - 10 7 mmol/L [place] CO2 [Moles/Vol] 25 mmol/L 20 - 31 mmol/L [place] Creatinine [Mass/Vol] 1.34 mg/dL High 0.7 - 1.2 mg/dL [place] GFR >60 >60 mL/min [place] GFR Non- 52 mL/min Low >60 [place] Glucose [Mass/Vol] 91 mg/dL 70 - 99 mg/dL [place] Interpretation and review of laboratory results Abnormal [place] Potassium [Moles/Vol] 4.5 mmol/L 3.7 - 5.3 mmol/L [place] Protein [Mass/Vol] 6.8 g/dL 6.4 - 8.3 g/dL [place] Sodium [Moles/Vol] 138 mmol/L 135 - 144 mmol/L [place] Urea nitrogen [Mass/Vol] 21 mg/dL 8 - 23 mg/dL [place] Immunoglobulin Panel (IgG, I gA, IgM)on 04-16-2019 IgA [Mass/Vol] 296 mg/dL 70 - 400 mg/dL [place] IgG [Mass/Vol] 1156 mg/dL 700 - 1600 mg/dL [place] IgM [Mass/Vol] 45 mg/dL 40 - 230 mg/dL [place] Le[place]/Lambda Free Lt Chains, Serum Quanton 04-16-2019 Free Le[place]/Lambda Ratio 2.01 High M [place], [place] Interpretation and review of laboratory results Abnormal [place] Le[place]ey Free Light Chains QNT 2.86 mg/dL High 0.37 - 1.94 mg/dL [place] Lambda Free Light Chains QNT 1.42 mg/dL 0.57 - 2.63 mg/dL [place] Metabolic Panelon 04-16-2019 GFR/1.73 sq M predicted among non-blacks MDRD (S/P/Bld) [Vol rate/Area] [place] Comment on above: Stage 1: Some kidney damage normal GFR Stage 2: Mild kidney damage GFR 60-89 Stage 3: Moderate kidney damage GFR 30-59 Stage 4: Severe kidney damage GFR 15-29 Stage 5: Severe kidney damage GFR <15 ESRD - chronic treatment by dialysis or transplant Average GFR for 70 o r more years old: 75 mL/min/1.73sq m Chronic Kidney Disease: <60 mL/min/1.73sq m Kidney failure: <15 mL/min/1.73sq m eGFR calculated using average adult body mass. Additional eGFR calculator available at: http://[email or web address]/multiple_crcl_2011.htm Urinalysis with Microscopico n 04-06-2019 Amorphous, UA NOT REPORTED None [place] Bacteria, UA NOT REPORTED None [place] Bilirubin Urine Negative NEGATIVE [place] Casts UA NOT REPORTED /LPF [place] Color, UA YELLOW YELLOW [place] Crystals UA NOT REPORTED None /HPF [place] Epithelial Cells UA 0 TO 2 [place] Glucose, Ur Negative NEGATIVE [place] Interpretation and review of laboratory results Abnormal [place] Ketones Ql (U) Negative NEGATIVE [place] Leukocyte esterase Test strip Ql (U) SMALL Abnormal NEGATIVE [place] Mucus, UA NOT REPORTED None [place] Nitrite, Urine Negative NEGATIVE [place] Other Observations UA NOT REPORTED NOT REQ. M [place] pH, UA 6.0 [place] Protein (U) [Mass/Vol] Negative NEGATIVE [place] RBC (U) [#/Vol] None [place] Renal Epithelial, Urine NOT REPORTED 0 /HPF [place] Specific Codorus, UA 1.010 [place] Trichomonas, UA NOT REPORTED None [place] Turbidity UA CLEAR CLEAR [place] Urinalysis Comments NOT REPORTED [place] Urine Hgb Negative NEGATIVE [place] Urobilinogen, Urine Normal Normal [place] WBC, UA 0 TO 2 [place] Yeast, UA NOT REPORTED None [place] - [place] CBC Auto Differentialon 10-0 3-2018 Basophils (Bld) [#/Vol] 0.00 10*3/uL [place] Basophils/100 WBC (Bld) 0 % 0 - 2 % M [place], [place] Differential Type NOT REPORTED [place] Eosinophils (Bld) [#/Vol] 0.36 10*3/uL [place] Eosinophils/100 WBC (Bld) 4 % 1 - 4 % [place] Erythrocyte distribution width (RBC) [Ratio] 14.7 % High 11.8 - 14.4 % [place] Hematocrit (Bld) [Volume fraction] 43.9 % 40.7 - 50.3 % [place] Hemoglobin (Bld) [Mass/Vol] 14.3 g/dL 13 - 17 g/dL [place] Immature granulocytes (Bld) [#/Vol] 0.09 10*3/uL [place] Immature granulocytes (Bld) [#/Vol] 1 % High 0 [place] Interpretation and review of laboratory results Abnormal [place] Lymphocytes (Bld) [#/Vol] 1.82 10*3/uL [place] Lymphocytes/100 WBC (Bld) 20 % Low 24 - 43 % [place] MCH (RBC) [Entitic mass] 35.3 pg High 25. 2 - 33.5 pg [place] MCHC (RBC) [Mass/Vol] 32.6 g/dL 28.4 - 34.8 g/dL [place] MCV (RBC) [Entitic vol] 108.4 fL High 82.6 - 102.9 fL [place] Monocytes (Bld) [#/Vol] 1.00 10*3/uL [place] Monocytes/100 WBC (Bld) 11 % 3 - 12 % M [place] Morphology Aashish (Bld) [Interp] Normal [place] Platelet mean volume (Bld) [Entitic vol] 11.7 fL 8.1 - 13.5 fL [place] Platelets (Bld) [#/Vol] 156 10*3/uL [place] Platelets (Bld) [#/Vol] NOT REPORTED [place] RBC (Bld) [#/Vol] 4.05 10*6/uL Low 4.21 - 5.7 7 m/uL [place] RBC morphology finding Nom (Bld) NOT REPORTED [place] Segmented neutrophils/100 WBC (Bld) 64 % 36 - 65 % [place] Segs Absolute 5.83 [place] WBC (Bld) [#/Vol] 0.0 10*3/uL 0.0 per 10 0 WBC [place] WBC (Bld) [#/Vol] 9.1 10*3/uL [place] WBC Morphology NOT REPORTED [place] Comprehensive Metabolic Pane robin 04-02-2019 Albumin [Mass/Vol] 3.7 g/dL 3.5 - 5.2 g/dL [place] Albumin/Globulin [Mass ratio] 1.1 {ratio} [place] ALP [Catalytic activity/Vol] 46 U/L 40 - 129 U/L [place] ALT [Catalytic activity/Vol] 21 U/L 5 - 41 U/L [place] Anion gap [Moles/Vol] 12 mmol/L 9 - 17 mmol/L [place] AST [Catalytic activity/Vol] 28 U/L <40 [place] Bilirubin Ql (U) 0.54 mg/dL 0.3 - 1.2 mg/dL [place] Bun/Cre Ratio 14 [place] Calcium [Mass/Vol] 9.3 mg/dL 8.6 - 10. 4 mg/dL [place] Chloride [Moles/Vol] 98 mmol/L 98 - 10 7 mmol/L [place] CO2 [Moles/Vol] 27 mmol/L 20 - 31 mmol/L [place] Creatinine [Mass/Vol] 1.35 mg/dL High 0.7 - 1.2 mg/dL [place] GFR >60 >60 mL/min [place] GFR Non- 51 mL/min Low >60 [place] Glucose [Mass/Vol] 81 mg/dL 70 - 99 mg/dL [place] Interpretation and review of laboratory results Abnormal [place] Potassium [Moles/Vol] 4.6 mmol/L 3.7 - 5.3 mmol/L [place] Protein [Mass/Vol] 7.1 g/dL 6.4 - 8.3 g/dL [place] Sodium [Moles/Vol] 137 mmol/L 135 - 144 mmol/L [place] Urea nitrogen [Mass/Vol] 19 mg/dL 8 - 23 mg/dL [place] Metabolic Panelon 04-02-2019 GFR/1.73 sq M predicted among non-blacks MDRD (S/P/Bld) [Vol rate/Area] [place] Comment on above: Stage 1: Some kidney damage normal GFR Stage 2: Mild kidney damage GFR 60-89 Stage 3: Moderate kidney damage GFR 30-59 Stage 4: Severe kidney damage GFR 15-29 Stage 5: Severe kidney damage GFR <15 ESRD - chronic treatment by dialysis or transplant Average GFR for 70 o r more years old: 75 mL/min/1.73sq m Chronic Kidney Disease: <60 mL/min/1.73sq m Kidney failure: <15 mL/min/1.73sq m eGFR calculated using average adult body mass. Additional eGFR calculator available at: http://www.[employer].Changelight/multiple_crcl_2012.htm CBC Auto Differentialon 03-02 Basophils (Bld) [#/Vol] 0.11 10*3/uL [place] Basophils/100 WBC (Bld) 2 % 0 - 2 % M [place], [place] Differential Type NOT REPORTED [place] Eosinophils (Bld) [#/Vol] 0.14 10*3/uL [place] Eosinophils/100 WBC (Bld) 3 % 1 - 4 % [place] Erythrocyte distribution width (RBC) [Ratio] 15.4 % High 11.8 - 14.4 % [place] Hematocrit (Bld) [Volume fraction] 41.4 % 40.7 - 50.3 % [place] Hemoglobin (Bld) [Mass/Vol] 13.4 g/dL 13 - 17 g/dL [place] Immature granulocytes (Bld) [#/Vol] 0 % 0 [place] Immature granulocytes (Bld) [#/Vol] 10*3/uL [place] Interpretation and review of laboratory results Abnormal [place] Lymphocytes (Bld) [#/Vol] 0.90 10*3/uL Low [place] Lymphocytes/100 WBC (Bld) 18 % Low 24 - 43 % [place] MCH (RBC) [Entitic mass] 34.7 pg High 25. 2 - 33.5 pg [place] MCHC (RBC) [Mass/Vol] 32.4 g/dL 28.4 - 34.8 g/dL [place] MCV (RBC) [Entitic vol] 107.3 fL High 82.6 - 102.9 fL [place] Monocytes (Bld) [#/Vol] 0.54 10*3/uL [place] Monocytes/100 WBC (Bld) 11 % 3 - 12 % [place] Platelet mean volume (Bld) [Entitic vol] 9.6 fL 8.1 - 13.5 fL [place] Platelets (Bld) [#/Vol] 222 10*3/uL [place] Platelets (Bld) [#/Vol] NOT REPORTED [place] RBC (Bld) [#/Vol] 3.86 10*6/uL Low 4.21 - 5.7 7 m/uL [place] RBC morphology finding Nom (Bld) NOT REPORTED [place] Segmented neutrophils/100 WBC (Bld) 66 % High 36 - 65 % [place] Segs Absolute 3.38 [place] WBC (Bld) [#/Vol] 0.0 10*3/uL 0.0 per 10 0 WBC [place] WBC (Bld) [#/Vol] 5.1 10*3/uL [place] WBC Morphology NOT REPORTED [place] Comprehensive Metabolic Pane robin 03-20-2019 Albumin [Mass/Vol] 3.5 g/dL 3.5 - 5.2 g/dL [place] Albumin/Globulin [Mass ratio] 1.1 {ratio} [place] ALP [Catalytic activity/Vol] 48 U/L 40 - 129 U/L [place] ALT [Catalytic activity/Vol] 15 U/L 5 - 41 U/L [place] Anion gap [Moles/Vol] 12 mmol/L 9 - 17 mmol/L [place] AST [Catalytic activity/Vol] 23 U/L <40 [place] Bilirubin Ql (U) 0.41 mg/dL 0.3 - 1.2 mg/dL [place] Bun/Cre Ratio 18 [place] Calcium [Mass/Vol] 9.2 mg/dL 8.6 - 10. 4 mg/dL [place] Chloride [Moles/Vol] 100 mmol/L 98 - 10 7 mmol/L [place] CO2 [Moles/Vol] 26 mmol/L 20 - 31 mmol/L [place] Creatinine [Mass/Vol] 1.34 mg/dL High 0.7 - 1.2 mg/dL [place] GFR >60 >60 mL/min [place] GFR Non- 52 mL/min Low >60 [place] Glucose [Mass/Vol] 94 mg/dL 70 - 99 mg/dL [place] Interpretation and review of laboratory results Abnormal [place] Potassium [Moles/Vol] 4.8 mmol/L 3.7 - 5.3 mmol/L [place] Protein [Mass/Vol] 6.7 g/dL 6.4 - 8.3 g/dL [place] Sodium [Moles/Vol] 138 mmol/L 135 - 144 mmol/L [place] Urea nitrogen [Mass/Vol] 24 mg/dL High 8 - 23 mg/dL [place] Immunoglobulin Panel (IgG, I gA, IgM)on 03-20-2019 IgA [Mass/Vol] 310 mg/dL 70 - 400 mg/dL [place] IgG [Mass/Vol] 1203 mg/dL 700 - 1600 mg/dL [place] IgM [Mass/Vol] 43 mg/dL 40 - 230 mg/dL [place]/Lambda Free Lt Chains, Serum Quanton 03-20-2019 Free [place]/Lambda Ratio 1.71 High M [place] Interpretation and review of laboratory results Abnormal [place] Free Light Chains QNT 2.53 mg/dL High 0.37 - 1.94 mg/dL [place] Lambda Free Light Chains QNT 1.48 mg/dL 0.57 - 2.63 mg/dL [place] Metabolic Panelon 03-20-2019 GFR/1.73 sq M predicted among non-blacks MDRD (S/P/Bld) [Vol rate/Area] [place] Comment on above: Stage 1: Some kidney damage normal GFR Stage 2: Mild kidney damage GFR 60-89 Stage 3: Moderate kidney damage GFR 30-59 Stage 4: Severe kidney damage GFR 15-29 Stage 5: Severe kidney damage GFR <15 ESRD - chronic treatment by dialysis or transplant Average GFR for 70 o r more years old: 75 mL/min/1.73sq m Chronic Kidney Disease: <60 mL/min/1.73sq m Kidney failure: <15 mL/min/1.73sq m eGFR calculated using average adult body mass. Additional eGFR calculator available at: http://www.MXP4/multiple_crcl_2012.htm CBC Auto Differentialon Basophils (Bld) [#/Vol] 0.04 10*3/uL [place] Basophils/100 WBC (Bld) 1 % 0 - 2 % [place] Differential Type NOT REPORTED [place] Eosinophils (Bld) [#/Vol] 0.15 10*3/uL [place] Eosinophils/100 WBC (Bld) 2 % 1 - 4 % [place] Erythrocyte distribution width (RBC) [Ratio] 15.5 % High 11.8 - 14.4 % [place] Hematocrit (Bld) [Volume fraction] 41.3 % 40.7 - 50.3 % [place] Hemoglobin (Bld) [Mass/Vol] 13.6 g/dL 13 - 17 g/dL [place] Immature granulocytes (Bld) [#/Vol] 1 % High 0 [place] Immature granulocytes (Bld) [#/Vol] 0.06 10*3/uL [place] Interpretation and review of laboratory results Abnormal [place] Lymphocytes (Bld) [#/Vol] 0.95 10*3/uL Low [place] Lymphocytes/100 WBC (Bld) 12 % Low 24 - 43 % [place] MCH (RBC) [Entitic mass] 35.4 pg High 25. 2 - 33.5 pg [place] MCHC (RBC) [Mass/Vol] 32.9 g/dL 28.4 - 34.8 g/dL [place] MCV (RBC) [Entitic vol] 107.6 fL High 82.6 - 102.9 fL [place] Monocytes (Bld) [#/Vol] 1.23 10*3/uL High [place] Monocytes/100 WBC (Bld) 15 % High 3 - 12 % [place] Platelet mean volume (Bld) [Entitic vol] 10.4 fL 8.1 - 13.5 fL [place] Platelets (Bld) [#/Vol] 175 10*3/uL [place] Platelets (Bld) [#/Vol] NOT REPORTED [place] RBC (Bld) [#/Vol] 3.84 10*6/uL Low 4.21 - 5.7 7 m/uL [place] RBC morphology finding Nom (Bld) NOT REPORTED [place] Segmented neutrophils/100 WBC (Bld) 69 % High 36 - 65 % [place] Segs Absolute 5.65 [place] WBC (Bld) [#/Vol] 0.0 10*3/uL 0.0 per 10 0 WBC [place] WBC (Bld) [#/Vol] 8.1 10*3/uL [place] WBC Morphology NOT REPORTED [place], [place] Comprehensive Metabolic Pane robin 03-06-2019 Albumin [Mass/Vol] 3.6 g/dL 3.5 - 5.2 g/dL [place] Albumin/Globulin [Mass ratio] 1.2 {ratio} [place] ALP [Catalytic activity/Vol] 50 U/L 40 - 129 U/L [place] ALT [Catalytic activity/Vol] 19 U/L 5 - 41 U/L [place] Anion gap [Moles/Vol] 8 mmol/L Low 9 - 17 mmol/L [place] AST [Catalytic activity/Vol] 27 U/L <40 [place] Bilirubin Ql (U) 0.49 mg/dL 0.3 - 1.2 mg/dL [place] Bun/Cre Ratio 16 [place] Calcium [Mass/Vol] 9.4 mg/dL 8.6 - 10. 4 mg/dL [place] Chloride [Moles/Vol] 98 mmol/L 98 - 10 7 mmol/L [place] CO2 [Moles/Vol] 29 mmol/L 20 - 31 mmol/L [place] Creatinine [Mass/Vol] 1.28 mg/dL High 0.7 - 1.2 mg/dL [place] GFR >60 >60 mL/min [place] GFR Non- 55 mL/min Low >60 [place] Glucose [Mass/Vol] 90 mg/dL 70 - 99 mg/dL [place] Interpretation and review of laboratory results Abnormal [place] Potassium [Moles/Vol] 4.3 mmol/L 3.7 - 5.3 mmol/L [place] Protein [Mass/Vol] 6.6 g/dL 6.4 - 8.3 g/dL [place] Sodium [Moles/Vol] 135 mmol/L 135 - 144 mmol/L [place] Urea nitrogen [Mass/Vol] 20 mg/dL 8 - 23 mg/dL [place] Metabolic Panelon 03-06-2019 GFR/1.73 sq M predicted among non-blacks MDRD (S/P/Bld) [Vol rate/Area] [place], [place] Comment on above: Average GFR for 70 o r more years old: 75 mL/min/1.73sq m Chronic Kidney Disease: <60 mL/min/1.73sq m Kidney failure: <15 mL/min/1.73sq m eGFR calculated using average adult body mass. Additional eGFR calculator available at: http://www.MXP4/multiple_crcl_2012.htm Stage 1: Some kidney damage normal GFR Stage 2: Mild kidney damage GFR 60-89 Stage 3: Moderate kidney damage GFR 30-59 Stage 4: Severe kidney damage GFR 15-29 Stage 5: Severe kidney damage GFR <15 ESRD - chronic treatment by dialysis or transplant CBC Auto Differentialon 01-30 Basophils (Bld) [#/Vol] 10*3/uL M [place], [place] Basophils/100 WBC (Bld) 0 % 0 - 2 % [place], [place] Differential Type NOT REPORTED [place] Eosinophils (Bld) [#/Vol] 0.20 10*3/uL [place] Eosinophils/100 WBC (Bld) 3 % 1 - 4 % [place] Erythrocyte distribution width (RBC) [Ratio] 15.3 % High 11.8 - 14.4 % [place] Hematocrit (Bld) [Volume fraction] 41.6 % 40.7 - 50.3 % [place] Hemoglobin (Bld) [Mass/Vol] 13.7 g/dL 13 - 17 g/dL [place] Immature granulocytes (Bld) [#/Vol] 2 % High 0 [place] Immature granulocytes (Bld) [#/Vol] 0.11 10*3/uL [place] Interpretation and review of laboratory results Abnormal [place] Lymphocytes (Bld) [#/Vol] 1.22 10*3/uL [place] Lymphocytes/100 WBC (Bld) 19 % Low 24 - 43 % [place] MCH (RBC) [Entitic mass] 35.5 pg High 25. 2 - 33.5 pg [place] MCHC (RBC) [Mass/Vol] 32.9 g/dL 28.4 - 34.8 g/dL [place] MCV (RBC) [Entitic vol] 107.8 fL High 82.6 - 102.9 fL [place] Monocytes (Bld) [#/Vol] 0.93 10*3/uL [place] Monocytes/100 WBC (Bld) 14 % High 3 - 12 % [place] Platelet mean volume (Bld) [Entitic vol] 10.6 fL 8.1 - 13.5 fL [place] Platelets (Bld) [#/Vol] 145 10*3/uL [place] Platelets (Bld) [#/Vol] NOT REPORTED [place] RBC (Bld) [#/Vol] 3.86 10*6/uL Low 4.21 - 5.7 7 m/uL [place] RBC morphology finding Nom (Bld) NOT REPORTED [place] Segmented neutrophils/100 WBC (Bld) 62 % 36 - 65 % [place] Segs Absolute 4.10 [place] WBC (Bld) [#/Vol] 6.6 10*3/uL [place] WBC (Bld) [#/Vol] 0.0 10*3/uL 0.0 per 10 0 WBC [place] WBC Morphology NOT REPORTED [place] Comprehensive Metabolic Pane robin 02-26-2019 Albumin [Mass/Vol] 3.7 g/dL 3.5 - 5.2 g/dL [place] Albumin/Globulin [Mass ratio] 1.2 {ratio} [place] ALP [Catalytic activity/Vol] 56 U/L 40 - 129 U/L [place] ALT [Catalytic activity/Vol] 20 U/L 5 - 41 U/L [place] Anion gap [Moles/Vol] 9 mmol/L 9 - 17 mmol/L [place] AST [Catalytic activity/Vol] 25 U/L <40 [place] Bilirubin Ql (U) 0.29 mg/dL Low 0.3 - 1.2 mg/dL [place] Bun/Cre Ratio 16 [place] Calcium [Mass/Vol] 9.1 mg/dL 8.6 - 10. 4 mg/dL [place] Chloride [Moles/Vol] 102 mmol/L 98 - 10 7 mmol/L [place] CO2 [Moles/Vol] 30 mmol/L 20 - 31 mmol/L [place] Creatinine [Mass/Vol] 1.35 mg/dL High 0.7 - 1.2 mg/dL [place] GFR >60 >60 mL/min [place] GFR Non- 51 mL/min Low >60 [place] Glucose [Mass/Vol] 140 mg/dL High 70 - 99 mg/dL [place] Interpretation and review of laboratory results Abnormal [place] Potassium [Moles/Vol] 4.8 mmol/L 3.7 - 5.3 mmol/L [place] Protein [Mass/Vol] 6.9 g/dL 6.4 - 8.3 g/dL [place] Sodium [Moles/Vol] 141 mmol/L 135 - 144 mmol/L [place] Urea nitrogen [Mass/Vol] 21 mg/dL 8 - 23 mg/dL [place] Metabolic Panelon 02-26-2019 GFR/1.73 sq M predicted among non-blacks MDRD (S/P/Bld) [Vol rate/Area] [place] Comment on above: Average GFR for 70 o r more years old: 75 mL/min/1.73sq m Chronic Kidney Disease: <60 mL/min/1.73sq m Kidney failure: <15 mL/min/1.73sq m eGFR calculated using average adult body mass. Additional eGFR calculator available at: http://www.MXP4/multiple_crcl_2012.htm Stage 1: Some kidney damage normal GFR Stage 2: Mild kidney damage GFR 60-89 Stage 3: Moderate kidney damage GFR 30-59 Stage 4: Severe kidney damage GFR 15-29 Stage 5: Severe kidney damage GFR <15 ESRD - chronic treatment by dialysis or transplant CBC Auto Differentialon 01-30 Basophils (Bld) [#/Vol] 0.00 10*3/uL [place] Basophils/100 WBC (Bld) 0 % 0 - 2 % M [place] Differential Type NOT REPORTED [place] Eosinophils (Bld) [#/Vol] 0.39 10*3/uL [place] Eosinophils/100 WBC (Bld) 7 % High 1 - 4 % [place] Erythrocyte distribution width (RBC) [Ratio] 15.1 % High 11.8 - 14.4 % [place] Hematocrit (Bld) [Volume fraction] 42.8 % 40.7 - 50.3 % [place] Hemoglobin (Bld) [Mass/Vol] 14.0 g/dL 13 - 17 g/dL [place] Immature granulocytes (Bld) [#/Vol] 0.00 10*3/uL [place] Immature granulocytes (Bld) [#/Vol] 0 % 0 [place] Interpretation and review of laboratory results Abnormal [place] Lymphocytes (Bld) [#/Vol] 0.77 10*3/uL [place] Lymphocytes/100 WBC (Bld) 14 % Low 24 - 43 % [place] MCH (RBC) [Entitic mass] 35.1 pg High 25. 2 - 33.5 pg [place] MCHC (RBC) [Mass/Vol] 32.7 g/dL 28.4 - 34.8 g/dL [place] MCV (RBC) [Entitic vol] 107.3 fL High 82.6 - 102.9 fL [place] Monocytes (Bld) [#/Vol] 0.33 10*3/uL [place] Monocytes/100 WBC (Bld) 6 % 3 - 12 % M [place] Morphology Aashish (Bld) [Interp] Normal [place] Platelet mean volume (Bld) [Entitic vol] 9.5 fL 8.1 - 13.5 fL [place] Platelets (Bld) [#/Vol] 196 10*3/uL [place] Platelets (Bld) [#/Vol] NOT REPORTED [place] RBC (Bld) [#/Vol] 3.99 10*6/uL Low 4.21 - 5.7 7 m/uL [place] RBC morphology finding Nom (Bld) NOT REPORTED [place] Segmented neutrophils/100 WBC (Bld) 73 % High 36 - 65 % [place] Segs Absolute 4.01 [place] WBC (Bld) [#/Vol] 0.0 10*3/uL 0.0 per 10 0 WBC [place] WBC (Bld) [#/Vol] 5.5 10*3/uL [place] WBC Morphology NOT REPORTED [place] Comprehensive Metabolic Pane robin 02-20-2019 Albumin [Mass/Vol] 4 g/dL 3.5 - 5.2 g/dL [place] Albumin/Globulin [Mass ratio] 1.1 {ratio} [place] ALP [Catalytic activity/Vol] 63 U/L 40 - 129 U/L [place] ALT [Catalytic activity/Vol] 19 U/L 5 - 41 U/L [place] Anion gap [Moles/Vol] 10 mmol/L 9 - 17 mmol/L [place] AST [Catalytic activity/Vol] 28 U/L <40 [place] Bilirubin Ql (U) 0.49 mg/dL 0.3 - 1.2 mg/dL [place] Bun/Cre Ratio 14 [place] Calcium [Mass/Vol] 9.4 mg/dL 8.6 - 10. 4 mg/dL [place] Chloride [Moles/Vol] 98 mmol/L 98 - 10 7 mmol/L [place] CO2 [Moles/Vol] 28 mmol/L 20 - 31 mmol/L [place] Creatinine [Mass/Vol] 1.4 mg/dL High 0.7 - 1.2 mg/dL [place] GFR 60 mL/min Low >60 [place] GFR Non- 49 mL/min Low >60 [place] Glucose [Mass/Vol] 124 mg/dL High 70 - 99 mg/dL [place] Interpretation and review of laboratory results Abnormal [place] Potassium [Moles/Vol] 4.7 mmol/L 3.7 - 5.3 mmol/L [place] Protein [Mass/Vol] 7.6 g/dL 6.4 - 8.3 g/dL [place] Sodium [Moles/Vol] 136 mmol/L 135 - 144 mmol/L [place] Urea nitrogen [Mass/Vol] 19 mg/dL 8 - 23 mg/dL [place] Immunoglobulin Panel (IgG, I gA, IgM)on 02-20-2019 IgA [Mass/Vol] 375 mg/dL 70 - 400 mg/dL [place] IgG [Mass/Vol] 1347 mg/dL 700 - 1600 mg/dL [place] IgM [Mass/Vol] 54 mg/dL 40 - 230 mg/dL [place]/Lambda Free Lt Chains, Serum Quanton 02-20-2019 Free Le[place]/Lambda Ratio 1.45 M [place] Interpretation and review of laboratory results Abnormal [place] Free Light Chains QNT 2.31 mg/dL High 0.37 - 1.94 mg/dL [place] Lambda Free Light Chains QNT 1.59 mg/dL 0.57 - 2.63 mg/dL [place] Metabolic Panelon 02-20-2019 GFR/1.73 sq M predicted among non-blacks MDRD (S/P/Bld) [Vol rate/Area] [place] Comment on above: Stage 1: Some kidney damage normal GFR Stage 2: Mild kidney damage GFR 60-89 Stage 3: Moderate kidney damage GFR 30-59 Stage 4: Severe kidney damage GFR 15-29 Stage 5: Severe kidney damage GFR <15 ESRD - chronic treatment by dialysis or transplant Average GFR for 70 o r more years old: 75 mL/min/1.73sq m Chronic Kidney Disease: <60 mL/min/1.73sq m Kidney failure: <15 mL/min/1.73sq m eGFR calculated using average adult body mass. Additional eGFR calculator available at: http://www.MXP4/multiple_crcl_2012.htm Vital Signs Date Time Vital Sign Value Performing Clinician Facility 03-31-2024 09:37-0400 Body height 182.88 cm DO Adair Shaista Work Phone: [facility] 03-31-2024 09:37-0400 Body mass index (BMI) [Ratio] 30.5 kg/m2 DO Adair Shaista Work Phone: [facility] 03-31-2024 09:37-0400 Body weight 102.05 kg DO Adair Shaista Work Phone: [facility] 03-31-2024 09:37-0400 Diastolic blood pressure 75 mm[Hg] DO Adair Shaista Work Phone: [facility] 03-31-2024 09:37-0400 Heart rate 94 /min DO Adair Shaista Work Phone: [facility] 03-31-2024 09:37-0400 Systolic blood pressure 111 mm[Hg] DO Adair Shaista Work Phone: [facility] 03-29-2024 11:00-0400 Diastolic blood pressure 75 mm[Hg] DO Adair Shaista Work Phone: [facility] 03-29-2024 11:00-0400 Heart rate 95 /min DO Adair Shaista Work Phone: [facility] 03-29-2024 11:00-0400 Respiratory rate 18 /min DO Adair Shaista Work Phone: [facility] 03-29-2024 11:00-0400 SaO2% (BldA) [Mass fraction] 95 % DO Adair Shaista Work Phone: [facility] 03-29-2024 11:00-0400 Systolic blood pressure 117 mm[Hg] DO Adair Shaista Work Phone: [facility] 03-29-2024 05:55-0400 Body weight 108.7 kg DO Adair Shaista Work Phone: [facility] 03-29-2024 05:00-0400 Body temperature 97.4 [degF] DO Adair Shaista Work Phone: [facility] 03-24-2024 12:31-0400 Body height 182.88 cm DO Adair Shaista Work Phone: [facility] 02-20-2024 15:17-0400 Body mass index (BMI) [Ratio] 31.12 kg/m2 Nelli Aguilar MD Work Phone: [facility] 02-20-2024 15:17-0400 Body temperature 97.39 [degF] Nelli Aguilar MD Work Phone: [facility] 02-20-2024 15:17-0400 Body weight 102.4 kg Nelli Aguilar MD Work Phone: [facility] 02-20-2024 15:17-0400 Diastolic blood pressure 77 mm[Hg] Nelli Aguilar MD Work Phone: [facility] 02-20-2024 15:17-0400 Heart rate 97 /min Nelli Aguilar MD Work Phone: [facility] 02-20-2024 15:17-0400 Respiratory rate 16 /min Nelli Aguilar MD Work Phone: [facility] 02-20-2024 15:17-0400 SaO2% (BldA) [Mass fraction] 93 % Nelli Aguilar MD Work Phone: [facility] 02-20-2024 15:17-0400 Systolic blood pressure 117 mm[Hg] Nelli Aguilar MD Work Phone: [facility] 01-22-2024 13:05-0400 Body height 181.4 cm David Molina MD Work Phone: [facility] 01-22-2024 13:05-0400 Body mass index (BMI) [Ratio] 31.36 kg/m2 David Molina MD Work Phone: [facility] 01-22-2024 13:05-0400 Body temperature 97.59 [degF] David Molina MD Work Phone: [facility] 01-22-2024 13:05-0400 Body weight 103.2 kg David Molina MD Work Phone: [facility] 01-22-2024 13:05-0400 Diastolic blood pressure 65 mm[Hg] David Molina MD Work Phone: [facility] 01-22-2024 13:05-0400 Heart rate 89 /min David Molina MD Work Phone: [facility] 01-22-2024 13:05-0400 Respiratory rate 16 /min David Molina MD Work Phone: [facility] 01-22-2024 13:05-0400 SaO2% (BldA) [Mass fraction] 96 % David Molina MD Work Phone: [facility] 01-22-2024 13:05-0400 Systolic blood pressure 94 mm[Hg] David Molina MD Work Phone: [facility] 01-07-2024 15:220400 Body height 182.88 cm [facility] 01-07-2024 15:220400 Body mass index (BMI) [Ratio] 31.1 kg/m2 [facility] 01-07-2024 15:220400 Body weight 104.32 kg [facility] 01-07-2024 15:220400 Diastolic blood pressure 69 mm[Hg] [facility] 01-07-2024 15:220400 Heart rate 97 /min [facility] 01-07-2024 15:220400 SaO2% (BldA) [Mass fraction] 91 % [facility] 01-07-2024 [id number]:220400 Systolic blood pressure 101 mm[Hg] [facility] 12-24-2023 11:24-0400 Body height 181.4 cm David Molina MD Work Phone: [facility] 12-24-2023 11:24-0400 Body mass index (BMI) [Ratio] 31.61 kg/m2 David Molina MD Work Phone: [facility] 12-24-2023 11:24-0400 Body temperature 97.5 [degF] David Molina MD Work Phone: [facility] 12-24-2023 11:24-0400 Body weight 104 kg David Molina MD Work Phone: [facility] 12-24-2023 11:24-0400 Diastolic blood pressure 72 mm[Hg] David Molina MD Work Phone: [facility] 12-24-2023 11:24-0400 Heart rate 76 /min David Molina MD Work Phone: [facility] 12-24-2023 11:24-0400 Respiratory rate 18 /min David Molina MD Work Phone: [facility] 12-24-2023 11:24-0400 SaO2% (BldA) [Mass fraction] 96 % David Molina MD Work Phone: [facility] 12-24-2023 11:24-0400 Systolic blood pressure 113 mm[Hg] David Molina MD Work Phone: [facility] 11-26-2023 10:16-0400 Diastolic blood pressure 75 mm[Hg] Thi Moraima PA-C Work Phone: [facility] Comment on above: RT arm 11-26-2023 10:16-0400 Systolic blood pressure 108 mm[Hg] Thi Moraima PA-C Work Phone: [facility] Comment on above: RT arm 11-26-2023 10:00-0400 Body height 181.4 cm Thi Moraima PA-C Work Phone: [facility] 11-26-2023 10:00-0400 Body mass index (BMI) [Ratio] 31.7 kg/m2 Thi Moraima PA-C Work Phone: [facility] 11-26-2023 10:00-0400 Body temperature 97.3 [degF] Thi Moraima PA-C Work Phone: [facility] 11-26-2023 10:00-0400 Body weight 104.3 kg Thi Moraima PA-C Work Phone: [facility] 11-26-2023 10:00-0400 Heart rate 76 /min Thi Moraima PA-C Work Phone: [facility] 11-26-2023 10:00-0400 Respiratory rate 16 /min Thi Moraima PA-C Work Phone: [facility] 11-26-2023 10:00-0400 SaO2% (BldA) [Mass fraction] 94 % Thi Moraima PA-C Work Phone: [facility] 10-30-2023 14:39-0400 Body height 181.4 cm David Molina MD Work Phone: [facility] 10-30-2023 14:39-0400 Body mass index (BMI) [Ratio] 31.21 kg/m2 David Molina MD Work Phone: [facility] 10-30-2023 14:39-0400 Body temperature 97 [degF] David Molina MD Work Phone: [facility] 10-30-2023 14:39-0400 Body weight 102.7 kg David Molina MD Work Phone: [facility] 10-30-2023 14:39-0400 Diastolic blood pressure 75 mm[Hg] David Molina MD Work Phone: [facility] 10-30-2023 14:39-0400 Heart rate 77 /min David Molina MD Work Phone: [facility] 10-30-2023 14:39-0400 Respiratory rate 18 /min David Molina MD Work Phone: [facility] 10-30-2023 14:39-0400 SaO2% (BldA) [Mass fraction] 94 % David Molina MD Work Phone: [facility] 10-30-2023 14:39-0400 Systolic blood pressure 120 mm[Hg] David Molina MD Work Phone: [facility] 10-02-2023 13:19-0400 Body height 181.4 cm David Molina MD Work Phone: [facility] 10-02-2023 13:19-0400 Body temperature 97.3 [degF] David Molina MD Work Phone: [facility] 10-02-2023 13:19-0400 Body weight 102 kg David Molina MD Work Phone: [facility] 10-02-2023 13:19-0400 Diastolic blood pressure 59 mm[Hg] David Molina MD Work Phone: [facility] 10-02-2023 13:19-0400 Heart rate 86 /min David Molina MD Work Phone: [facility] 10-02-2023 13:19-0400 Respiratory rate 16 /min David Molina MD Work Phone: [facility] 10-02-2023 13:19-0400 SaO2% (BldA) [Mass fraction] 95 % David Molina MD Work Phone: [facility] 10-02-2023 13:19-0400 Systolic blood pressure 101 mm[Hg] David Molina MD Work Phone: [facility] 09-24-2023 13:53-0400 Body height 182.88 cm DO Adair Shaista Work Phone: [facility] 09-24-2023 13:53-0400 Body mass index (BMI) [Ratio] 30.9 kg/m2 DO Adair Shaista Work Phone: [facility] 09-24-2023 13:53-0400 Body weight 103.41 kg DO Adair Shaista Work Phone: [facility] 09-24-2023 13:53-0400 Diastolic blood pressure 52 mm[Hg] DO Adair Shaista Work Phone: [facility] 09-24-2023 13:53-0400 Heart rate 85 /min DO Adair Shaista Work Phone: [facility] 09-24-2023 13:53-0400 Respiratory rate 18 /min DO Adair Shaista Work Phone: [facility] 09-24-2023 13:53-0400 SaO2% (BldA) [Mass fraction] 96 % DO Adair Shaista Work Phone: [facility] 09-24-2023 13:53-0400 Systolic blood pressure 96 mm[Hg] DO Adair Shaista Work Phone: [facility] 09-19-2023 10:54-0400 Body height 181.4 cm Thi Moraima PA-C Work Phone: [facility] 09-19-2023 10:54-0400 Body temperature 97.2 [degF] Thi Moraima PA-C Work Phone: [facility] 09-19-2023 10:54-0400 Body weight 103.7 kg Thi Moraima PA-C Work Phone: [facility] 09-19-2023 10:54-0400 Diastolic blood pressure 69 mm[Hg] Thi Moraima PA-C Work Phone: [facility] 09-19-2023 10:54-0400 Heart rate 75 /min Thi Moraima PA-C Work Phone: [facility] 09-19-2023 10:54-0400 Respiratory rate 18 /min Thi Moraima PA-C Work Phone: [facility] 09-19-2023 10:54-0400 SaO2% (BldA) [Mass fraction] 98 % Thi Moraima PA-C Work Phone: [facility] 09-19-2023 10:54-0400 Systolic blood pressure 120 mm[Hg] Thi Moraima PA-C Work Phone: [facility] 09-06-2023 10:40-0500 Body height 181.4 cm Thi Moraima PA-C Work Phone: [facility] 09-06-2023 10:40-0500 Body temperature 97.59 [degF] Thi Moraima PA-C Work Phone: [facility] 09-06-2023 10:40-0500 Body weight 103.9 kg Thi Moraima PA-C Work Phone: [facility] 09-06-2023 10:40-0500 Diastolic blood pressure 68 mm[Hg] Thi Moraima PA-C Work Phone: [facility] 09-06-2023 10:40-0500 Heart rate 75 /min Thi Moraima PA-C Work Phone: [facility] 09-06-2023 10:40-0500 Respiratory rate 16 /min Thi Moraima PA-C Work Phone: [facility] 09-06-2023 10:40-0500 SaO2% (BldA) [Mass fraction] 96 % Thi Moraima PA-C Work Phone: [facility] 09-06-2023 10:40-0500 Systolic blood pressure 100 mm[Hg] Thi Moraima PA-C Work Phone: [facility] 08-28-2023 13:30-0500 Body height 181.4 cm Thi Moraima PA-C Work Phone: [facility] 08-28-2023 13:30-0500 Body temperature 97.59 [degF] Thi Moraima PA-C Work Phone: [facility] 08-28-2023 13:30-0500 Body weight 103.87 kg Thi Moraima PA-C Work Phone: [facility] 08-28-2023 13:30-0500 Diastolic blood pressure 62 mm[Hg] Thi Moraima PA-C Work Phone: [facility] 08-28-2023 13:30-0500 Heart rate 74 /min Thi Moraima PA-C Work Phone: [facility] 08-28-2023 13:30-0500 Respiratory rate 16 /min Thi Moraima PA-C Work Phone: [facility] 08-28-2023 13:30-0500 SaO2% (BldA) [Mass fraction] 96 % Thi Moraima PA-C Work Phone: [facility] 08-28-2023 13:30-0500 Systolic blood pressure 111 mm[Hg] Thi Valera PA-C Work Phone: [facility] 08-21-2023 11:09-0500 Body height 181.4 cm Chair Jennifer Work Phone: [facility] 08-21-2023 10:00-0500 Body height 181.5 cm David Molina MD Work Phone: [facility] 08-21-2023 10:00-0500 Body temperature 97.3 [degF] David Molina MD Work Phone: [facility] 08-21-2023 10:00-0500 Body weight 103.5 kg David Molina MD Work Phone: [facility] 08-21-2023 10:00-0500 Diastolic blood pressure 63 mm[Hg] David Molina MD Work Phone: [facility] 08-21-2023 10:00-0500 Heart rate 85 /min David Molina MD Work Phone: [facility] 08-21-2023 10:00-0500 Respiratory rate 18 /min David Molina MD Work Phone: [facility] 08-21-2023 10:00-0500 SaO2% (BldA) [Mass fraction] 98 % David Molina MD Work Phone: [facility] 08-21-2023 10:00-0500 Systolic blood pressure 104 mm[Hg] David Molina MD Work Phone: [facility] 07-09-2023 09:25-0500 Diastolic blood pressure 84 mm[Hg] DO Adair Noonan Work Phone: [facility] 07-09-2023 09:25-0500 Heart rate 77 /min DO Adair Shaista Work Phone: [facility] 07-09-2023 09:25-0500 Respiratory rate 16 /min DO Adair Shaista Work Phone: [facility] 07-09-2023 09:25-0500 SaO2% (BldA) [Mass fraction] 94 % DO Adair Shaista Work Phone: [facility] 07-09-2023 09:25-0500 Systolic blood pressure 127 mm[Hg] DO Adair Shaista Work Phone: [facility] 07-09-2023 08:25-0500 Inhaled oxygen flow rate 8 L/min DO Adair Shaista Work Phone: [facility] 07-09-2023 07:22-0500 Body height 182.88 cm DO Adair Shaista Work Phone: [facility] 07-09-2023 07:22-0500 Body mass index (BMI) [Ratio] 30.5 kg/m2 DO Adair Shaista Work Phone: [facility] 07-09-2023 07:22-0500 Body weight 102.05 kg DO Adair Shaista Work Phone: [facility] 07-09-2023 05:50-0500 Body temperature 97.8 [degF] DO Adair Shaista Work Phone: [facility] 06-12-2023 12:16-0500 Body height 181.5 cm David Molina MD Work Phone: [facility] 06-12-2023 12:16-0500 Body temperature 97.81 [degF] David Molina MD Work Phone: [facility] 06-12-2023 12:16-0500 Body weight 104.4 kg David Molina MD Work Phone: [facility] 06-12-2023 12:16-0500 Diastolic blood pressure 74 mm[Hg] David Molina MD Work Phone: [facility] 06-12-2023 12:16-0500 Heart rate 80 /min David Molina MD Work Phone: [facility] 06-12-2023 12:16-0500 Respiratory rate 18 /min David Molina MD Work Phone: [facility] 06-12-2023 12:16-0500 SaO2% (BldA) [Mass fraction] 94 % David Molina MD Work Phone: [facility] 06-12-2023 12:16-0500 Systolic blood pressure 133 mm[Hg] David Molina MD Work Phone: [facility] 06-05-2023 12:31-0500 Body temperature 96.69 [degF] PAULETTE Goldberg MD Work Phone: [facility] 06-05-2023 12:31-0500 Diastolic blood pressure 80 mm[Hg] PAULETTE Goldberg MD Work Phone: [facility] 06-05-2023 12:31-0500 Heart rate 83 /min PAULETTE Goldberg MD Work Phone: [facility] 06-05-2023 12:31-0500 Respiratory rate 18 /min PAULETTE Goldberg MD Work Phone: [facility] 06-05-2023 12:31-0500 SaO2% (BldA) [Mass fraction] 95 % PAULETTE Goldberg MD Work Phone: [facility] 06-05-2023 12:31-0500 Systolic blood pressure 132 mm[Hg] PAULETTE Goldberg MD Work Phone: [facility] 05-14-2023 13:48-0500 Body height 181.5 cm David Molina MD Work Phone: [facility] 05-14-2023 13:48-0500 Body temperature 97.5 [degF] David Molina MD Work Phone: [facility] 05-14-2023 13:48-0500 Body weight 101.15 kg David Molina MD Work Phone: [facility] 05-14-2023 13:48-0500 Diastolic blood pressure 78 mm[Hg] David Molina MD Work Phone: [facility] 05-14-2023 13:48-0500 Heart rate 84 /min David Molina MD Work Phone: [facility] 05-14-2023 13:48-0500 Respiratory rate 16 /min David Molina MD Work Phone: [facility] 05-14-2023 13:48-0500 SaO2% (BldA) [Mass fraction] 92 % David Molina MD Work Phone: [facility] 05-14-2023 13:48-0500 Systolic blood pressure 124 mm[Hg] David Molina MD Work Phone: [facility] 04-16-2023 13:03-0400 Body height 181.5 cm David Molina MD Work Phone: [facility] [facility] 04-16-2023 13:03-0400 Body temperature 98.01 [degF] David Molina MD Work Phone: [facility] 04-16-2023 13:03-0400 Body weight 102.06 kg David Molina MD Work Phone: [facility] 04-16-2023 13:03-0400 Diastolic blood pressure 63 mm[Hg] David Molina MD Work Phone: [facility] 04-16-2023 13:03-0400 Heart rate 89 /min David Molina MD Work Phone: [facility] 04-16-2023 13:03-0400 Respiratory rate 16 /min David Molina MD Work Phone: [facility] 04-16-2023 13:03-0400 SaO2% (BldA) [Mass fraction] 97 % David Molina MD Work Phone: [facility] 04-16-2023 13:03-0400 Systolic blood pressure 127 mm[Hg] David Molina MD Work Phone: [facility] 03-19-2023 14:38-0400 Body height 181.5 cm Thi Moraima PA-C Work Phone: [facility] 03-19-2023 14:38-0400 Body temperature 97.11 [degF] Thi Moraima PA-C Work Phone: [facility] 03-19-2023 14:38-0400 Body weight 102.51 kg Thi Moraima PA-C Work Phone: [facility] 03-19-2023 14:38-0400 Diastolic blood pressure 73 mm[Hg] Thi Moraima PA-C Work Phone: [facility] 03-19-2023 14:38-0400 Heart rate 84 /min Thi Moraima PA-C Work Phone: [facility] 03-19-2023 14:38-0400 Respiratory rate 16 /min Thi Moraima PA-C Work Phone: [facility] 03-19-2023 14:38-0400 SaO2% (BldA) [Mass fraction] 94 % Thi Moraima PA-C Work Phone: [facility] 03-19-2023 14:38-0400 Systolic blood pressure 126 mm[Hg] Thi Moraima PA-C Work Phone: [facility] 02-19-2023 14:17-0400 Body height 183.3 cm David Molina MD Work Phone: [facility] 02-19-2023 14:17-0400 Body temperature 98.01 [degF] David Molina MD Work Phone: [facility] 02-19-2023 14:17-0400 Body weight 101.52 kg David Molina MD Work Phone: [facility] 02-19-2023 14:17-0400 Diastolic blood pressure 77 mm[Hg] David Molina MD Work Phone: [facility] 02-19-2023 14:17-0400 Heart rate 88 /min David Molina MD Work Phone: [facility] 02-19-2023 14:17-0400 Respiratory rate 16 /min David Molina MD Work Phone: [facility] 02-19-2023 14:17-0400 SaO2% (BldA) [Mass fraction] 95 % David Molina MD Work Phone: [facility] 02-19-2023 14:17-0400 Systolic blood pressure 114 mm[Hg] David Molina MD Work Phone: [facility] 12-25-2022 13:32-0400 Body temperature 97.11 [degF] Candis Culp APRN.HEALTH TEACHER Work Phone: [facility] 12-25-2022 13:32-0400 Body weight 99.79 kg Candis Culp APRN.HEALTH TEACHER Work Phone: [facility] 12-25-2022 13:32-0400 Diastolic blood pressure 82 mm[Hg] Candis Culp APRN.HEALTH TEACHER Work Phone: [facility] 12-25-2022 13:32-0400 Heart rate 90 /min Candis Culp APRN.HEALTH TEACHER Work Phone: [facility] 12-25-2022 13:32-0400 Respiratory rate 18 /min Candis Culp APRN.HEALTH TEACHER Work Phone: [facility] 12-25-2022 13:32-0400 SaO2% (BldA) [Mass fraction] 96 % Candis Culp APRN.HEALTH TEACHER Work Phone: [facility] 12-25-2022 13:32-0400 Systolic blood pressure 135 mm[Hg] Candis Culp APRN.CNP Work Phone: [facility] 11-27-2022 14:15-0400 Body height 183.3 cm David Molina MD Work Phone: [facility] 11-27-2022 14:15-0400 Body temperature 97.59 [degF] David Molina MD Work Phone: [facility] 11-27-2022 14:15-0400 Body weight 97.52 kg David Molina MD Work Phone: [facility] 11-27-2022 14:15-0400 Diastolic blood pressure 69 mm[Hg] David Molina MD Work Phone: [facility] 11-27-2022 14:15-0400 Heart rate 84 /min David Molina MD Work Phone: [facility] 11-27-2022 14:15-0400 Respiratory rate 16 /min David Molina MD Work Phone: [facility] 11-27-2022 14:15-0400 SaO2% (BldA) [Mass fraction] 96 % David Molina MD Work Phone: [facility] 11-27-2022 14:15-0400 Systolic blood pressure 116 mm[Hg] David Molina MD Work Phone: [facility] 10-02-2022 13:48-0400 Body height 183.3 cm Thi Valera PA-C Work Phone: [facility] 10-02-2022 13:48-0400 Body temperature 97.39 [degF] Thi Valera PA-C Work Phone: [facility] 10-02-2022 13:48-0400 Body weight 99.61 kg Thi Valera PA-C Work Phone: [facility] 10-02-2022 13:48-0400 Diastolic blood pressure 78 mm[Hg] Thi Moraima PA-C Work Phone: [facility] 10-02-2022 13:48-0400 Heart rate 89 /min Thi Moraima PA-C Work Phone: [facility] 10-02-2022 13:48-0400 Respiratory rate 16 /min Thi Moraima PA-C Work Phone: [facility] 10-02-2022 13:48-0400 SaO2% (BldA) [Mass fraction] 96 % Thi Moraima PA-C Work Phone: [facility] 10-02-2022 13:48-0400 Systolic blood pressure 132 mm[Hg] Thi Moraima PA-C Work Phone: [facility] 09-04-2022 13:44-0500 Body height 183.3 cm David Molina MD Work Phone: [facility] 09-04-2022 13:44-0500 Body temperature 97.2 [degF] David Molina MD Work Phone: [facility] 09-04-2022 13:44-0500 Body weight 97.89 kg David Molina MD Work Phone: [facility] 09-04-2022 13:44-0500 Diastolic blood pressure 77 mm[Hg] David Molina MD Work Phone: [facility] 09-04-2022 13:44-0500 Heart rate 89 /min David Molina MD Work Phone: [facility] 09-04-2022 13:44-0500 Respiratory rate 20 /min David Molina MD Work Phone: [facility] 09-04-2022 13:44-0500 SaO2% (BldA) [Mass fraction] 96 % David Molina MD Work Phone: [facility] 09-04-2022 13:44-0500 Systolic blood pressure 109 mm[Hg] David Molina MD Work Phone: [facility] 05-22-2022 12:53-0500 Body height 183.3 cm David Molina MD Work Phone: [facility] 05-22-2022 12:53-0500 Body temperature 97.59 [degF] David Molina MD Work Phone: [facility] 05-22-2022 12:53-0500 Body weight 97.43 kg David Molina MD Work Phone: [facility] 05-22-2022 12:53-0500 Diastolic blood pressure 73 mm[Hg] David Molina MD Work Phone: [facility] 05-22-2022 12:53-0500 Heart rate 98 /min David Molina MD Work Phone: [facility] 05-22-2022 12:53-0500 Respiratory rate 16 /min David Molina MD Work Phone: [facility] 05-22-2022 12:53-0500 SaO2% (BldA) [Mass fraction] 96 % David Molina MD Work Phone: [facility] 05-22-2022 12:53-0500 Systolic blood pressure 129 mm[Hg] David Molina MD Work Phone: [facility] 03-21-2022 10:56-0400 Body temperature 97.7 [degF] Mary Gan MD Work Phone: [employer] [facility] 03-21-2022 10:56-0400 Diastolic blood pressure 86 mm[Hg] Mary Gan MD [facility] 03-21-2022 10:56-0400 Heart rate 69 /min Mary Gan MD Work Phone[facility] 03-21-2022 10:56-0400 Respiratory rate 16 /min Mary Gan MD Work Phone[facility] [employer] 03-21-2022 10:56-0400 SaO2% (BldA) [Mass fraction] 99 % Mary Gan MD Work Phone: [facility] [employer] 03-21-2022 10:56-0400 Systolic blood pressure 121 mm[Hg] Mary Gan MD Work Phone: [facility] 03-20-2022 10:36-0400 Body height 182.9 cm Mary Gan MD Work Phone: [facility] [employer] 03-20-2022 10:36-0400 Body mass index (BMI) [Ratio] 27.12 kg/m2 Mary Gan MD Work Phone: [facility] [employer] 03-20-2022 10:36-0400 Body weight 90.72 kg Mary Gan MD Work Phone: [facility] 02-20-2022 13:49-0400 Body height 183.3 cm David Molina MD Work Phone: [facility] 02-20-2022 13:49-0400 Body temperature 98.1 [degF] David Molina MD Work Phone: [facility] 02-20-2022 13:49-0400 Body weight 94.8 kg David Mloina MD Work Phone: [facility] 02-20-2022 13:49-0400 Diastolic blood pressure 70 mm[Hg] David Molina MD Work Phone: [facility] 02-20-2022 13:49-0400 Heart rate 76 /min David Molina MD Work Phone: [facility] 02-20-2022 13:49-0400 Respiratory rate 16 /min David Molina MD Work Phone: [facility] 02-20-2022 13:49-0400 SaO2% (BldA) [Mass fraction] 95 % David Molina MD Work Phone: [facility] 02-20-2022 13:49-0400 Systolic blood pressure 117 mm[Hg] aDvid Molina MD Work Phone: [facility] 01-28-2022 11:23-0400 Body temperature 98.01 [degF] Elliot Delacruz MD Work Phone: [employer] 01-28-2022 11:23-0400 Diastolic blood pressure 76 mm[Hg] Elliot Delacruz MD Work Phone: [employer] 01-28-2022 11:23-0400 Heart rate 103 /min Elliot Delacruz MD Work Phone: [employer] 01-28-2022 11:23-0400 Respiratory rate 17 /min Elliot Delacruz MD Work Phone: [employer] 01-28-2022 11:23-0400 SaO2% (BldA) [Mass fraction] 100 % Elliot Delacruz MD Work Phone: [employer] 01-28-2022 11:23-0400 Systolic blood pressure 103 mm[Hg] Elliot Delacruz MD Work Phone: [employer] 01-26-2022 04:09-0400 Body mass index (BMI) [Ratio] 27.12 kg/m2 Elliot Delacruz MD Work Phone: [employer] 01-26-2022 04:09-0400 Body weight 90.72 kg Elliot Delacruz MD Work Phone: [employer] 01-24-2022 17:58-0400 Body height 182.9 cm Elliot Delacruz MD Work Phone: [employer] 01-23-2022 13:12-0400 Body height 183.3 cm Thi Valera PA-C Work Phone: [facility] 01-23-2022 13:12-0400 Body temperature 97.81 [degF] Thi Moraima PA-C Work Phone: [facility] 01-23-2022 13:12-0400 Body weight 93.26 kg Thi Moraima PA-C Work Phone: [facility] 01-23-2022 13:12-0400 Diastolic blood pressure 80 mm[Hg] Thi Moraima PA-C Work Phone: [facility] 01-23-2022 13:12-0400 Heart rate 105 /min Thi Moraima PA-C Work Phone: [facility] 01-23-2022 13:12-0400 Respiratory rate 16 /min Thi Moraima PA-C Work Phone: [facility] 01-23-2022 13:12-0400 SaO2% (BldA) [Mass fraction] 96 % Thi Moraima PA-C Work Phone: [facility] 01-23-2022 13:12-0400 Systolic blood pressure 120 mm[Hg] Thi Moraima PA-C Work Phone: [facility] 01-09-2022 14:00-0400 Body temperature 98.01 [degF] Chair Jennifer Work Phone: [facility] 01-09-2022 14:00-0400 Diastolic blood pressure 77 mm[Hg] Chair Samburg Work Phone: [facility] 01-09-2022 14:00-0400 Heart rate 77 /min Chair Jennifer Work Phone: [facility] 01-09-2022 14:00-0400 Respiratory rate 16 /min Chair S[place]urg Work Phone: [facility] 01-09-2022 14:00-0400 Systolic blood pressure 130 mm[Hg] Chair Samburg Work Phone: [facility] 12-25-2021 13:46-0400 Body height 183.3 cm Candis Culp APRN.HEALTH TEACHER Work Phone: [facility] 12-25-2021 13:46-0400 Body temperature 97.7 [degF] Candis Culp JEWEL [employer] SURFACER.HEALTH TEACHER Work Phone: [facility] 12-25-2021 13:46-0400 Body weight 93.53 kg Candis Culp [employer] SURFACER.HEALTH TEACHER Work Phone: [facility] 12-25-2021 13:46-0400 Diastolic blood pressure 71 mm[Hg] Candis Culp J[employer]AT SURFACER.HEALTH TEACHER Work Phone: [facility] 12-25-2021 13:46-0400 Heart rate 75 /min Candis Culp [employer]AT SURFACER.HEALTH TEACHER Work Phone: [facility] 12-25-2021 13:46-0400 Respiratory rate 16 /min Candis Culp J[employer]AT SURFACER.HEALTH TEACHER Work Phone: [facility] 12-25-2021 13:46-0400 SaO2% (BldA) [Mass fraction] 98 % Candis Culp J[employer]AT SURFACER.HEALTH TEACHER Work Phone: [facility] 12-25-2021 13:46-0400 Systolic blood pressure 128 mm[Hg] Candis Culp [employer]AT SURFACER.HEALTH TEACHER Work Phone: [facility] 12-12-2021 14:00-0400 Body height 183.3 cm Candsi Culp J[employer]EL FLAT SURFACER.HEALTH TEACHER Work Phone: [facility] 12-12-2021 14:00-0400 Body temperature 97.59 [degF] Candis Culp J[employer]AT SURFACER.HEALTH TEACHER Work Phone: [facility] 12-12-2021 14:00-0400 Body weight 93.26 kg Candis Culp [employer]AT SURFACER.HEALTH TEACHER Work Phone: [facility] 12-12-2021 14:00-0400 Diastolic blood pressure 84 mm[Hg] Candis Culp J[employer]AT SURFACER.HEALTH TEACHER Work Phone: [facility] 12-12-2021 14:00-0400 Heart rate 77 /min Candis Culp [employer]AT SURFACER.HEALTH TEACHER Work Phone: [facility] 12-12-2021 14:00-0400 Respiratory rate 16 /min Candis Culp [employer] SURF[employer]ER.HEALTH TEACHER Work Phone: [facility] 12-12-2021 14:00-0400 SaO2% (BldA) [Mass fraction] 97 % Candis Culp [employer] SURF[employer]ER.HEALTH TEACHER Work Phone: [facility] 12-12-2021 14:00-0400 Systolic blood pressure 132 mm[Hg] Candis Culp [employer]AT SURFACER.HEALTH TEACHER Work Phone: [facility] 11-28-2021 14:39-0400 Body height 183.3 cm David Molina MD Work Phone: [facility] 11-28-2021 14:39-0400 Body temperature 98.01 [degF] David Molina MD Work Phone: [facility] 11-28-2021 14:39-0400 Body weight 93.53 kg David Molina MD Work Phone: [facility] 11-28-2021 14:39-0400 Diastolic blood pressure 78 mm[Hg] David Molina MD Work Phone: [facility] 11-28-2021 14:39-0400 Heart rate 102 /min David Molina MD Work Phone: [facility] 11-28-2021 14:39-0400 Respiratory rate 16 /min David Molina MD Work Phone: [facility] 11-28-2021 14:39-0400 SaO2% (BldA) [Mass fraction] 98 % David Molina MD Work Phone: [facility] 11-28-2021 14:39-0400 Systolic blood pressure 148 mm[Hg] David Molina MD Work Phone: [facility] 11-14-2021 14:15-0400 Body temperature 97.3 [degF] Thi Moraima PA-C Work Phone: [facility] 11-14-2021 14:15-0400 Body weight 93.35 kg Thi Moraima PA-C Work Phone: [facility] 11-14-2021 14:15-0400 Diastolic blood pressure 84 mm[Hg] Thi Moraima PA-C Work Phone: [facility] 11-14-2021 14:15-0400 Heart rate 92 /min Thi Moraima PA-C Work Phone: [facility] 11-14-2021 14:15-0400 Respiratory rate 16 /min Thi Moraima PA-C Work Phone: [facility] 11-14-2021 14:15-0400 SaO2% (BldA) [Mass fraction] 96 % Thi Moraima PA-C Work Phone: [facility] 11-14-2021 14:15-0400 Systolic blood pressure 135 mm[Hg] Thi Moraima PA-C Work Phone: [facility] 10-31-2021 13:47-0400 Body height 183.3 cm David Molina MD Work Phone: [facility] 10-31-2021 13:47-0400 Body temperature 97.59 [degF] David Molina MD Work Phone: [facility] 10-31-2021 13:47-0400 Body weight 93.08 kg David Molina MD Work Phone: [facility] 10-31-2021 13:47-0400 Diastolic blood pressure 83 mm[Hg] David Molina MD Work Phone: [facility] 10-31-2021 13:47-0400 Heart rate 95 /min David Molina MD Work Phone: [facility] 10-31-2021 13:47-0400 Respiratory rate 16 /min David Molina MD Work Phone: [facility] 10-31-2021 13:47-0400 SaO2% (BldA) [Mass fraction] 97 % David Molina MD Work Phone: [facility] 10-31-2021 13:47-0400 Systolic blood pressure 128 mm[Hg] David Molina MD Work Phone: [facility] 10-17-2021 12:57-0400 Body height 183.3 cm Thi Moraima PA-C Work Phone: [facility] 10-17-2021 12:57-0400 Body temperature 97.9 [degF] Thi Moraima PA-C Work Phone: [facility] 10-17-2021 12:57-0400 Body weight 92.17 kg Thi Moraima PA-C Work Phone: [facility] 10-17-2021 12:57-0400 Diastolic blood pressure 74 mm[Hg] Thi Moraima PA-C Work Phone: [facility] 10-17-2021 12:57-0400 Heart rate 95 /min Thi Moraima PA-C Work Phone: [facility] 10-17-2021 12:57-0400 Respiratory rate 16 /min Thi Moraima PA-C Work Phone: [facility] 10-17-2021 12:57-0400 SaO2% (BldA) [Mass fraction] 94 % Thi Moraima PA-C Work Phone: [facility] 10-17-2021 12:57-0400 Systolic blood pressure 121 mm[Hg] Thi Moraima PA-C Work Phone: [facility] 09-27-2021 10:39-0400 Body height 182.9 cm David Molina MD Work Phone: [facility] 09-27-2021 10:39-0400 Body temperature 97.3 [degF] David Molina MD Work Phone: [facility] 09-27-2021 10:39-0400 Body weight 92.44 kg David Molina MD Work Phone: [facility] 09-27-2021 10:39-0400 Diastolic blood pressure 84 mm[Hg] David Molina MD Work Phone: [facility] 09-27-2021 10:39-0400 Heart rate 66 /min David Molina MD Work Phone: [facility] 09-27-2021 10:39-0400 Respiratory rate 18 /min David Molina MD Work Phone: [facility] 09-27-2021 10:39-0400 SaO2% (BldA) [Mass fraction] 97 % David Molina MD Work Phone: [facility] 09-27-2021 10:39-0400 Systolic blood pressure 144 mm[Hg] David Molina MD Work Phone: [facility] 05-09-2021 09:45-0500 Body height 182.9 cm [facility] 05-09-2021 09:45-0500 Body mass index (BMI) [Ratio] 27.19 kg/m2 [facility] 05-09-2021 09:45-0500 Body weight 90.95 kg [facility] 05-09-2021 09:45-0500 Diastolic blood pressure 62 mm[Hg] [facility] 05-09-2021 09:45-0500 Heart rate 62 /min [facility] 05-09-2021 09:45-0500 Respiratory rate 16 /min [facility] 05-09-2021 09:45-0500 Systolic blood pressure 104 mm[Hg] [facility] 04-27-2021 14:00-0400 Respiratory rate 12 /min Mario Alberto Conner MD Work Phone: [facility] Work Phone: 10-28-2021 12:27-0400 Body temperature 97.39 [degF] Mario Alberto Conner MD Work Phone: [employer] Work Phone: 04-27-2021 12:27-0400 Diastolic blood pressure 89 mm[Hg] Mario Alberto Conner MD Work Phone: [employer] Work Phone: 04-27-2021 12:27-0400 Heart rate 64 /min Mario Alberto Conner MD Work Phone: [employer] Work Phone: 04-27-2021 12:27-0400 SaO2% (BldA) [Mass fraction] 96 % Mario Alberto Conner MD Work Phone: [employer] Work Phone: 04-27-2021 12:27-0400 Systolic blood pressure 100 mm[Hg] Mario Alberto Conner MD Work Phone: [employer] Work Phone: 04-27-2021 06:00-0400 Body mass index (BMI) [Ratio] 25.92 kg/m2 Mario Alberto Conner MD Work Phone: [employer] Work Phone: 04-27-2021 06:00-0400 Body weight 86.7 kg Mario Alberto Conner MD Work Phone: [employer] Work Phone: 04-25-2021 10:40-0400 Diastolic blood pressure 79 mm[Hg] Marci Reid MD Work Phone: [employer] Work Phone: 04-25-2021 10:40-0400 Heart rate 78 /min Marci Reid MD Work Phone: [employer] Work Phone: 04-25-2021 10:40-0400 Respiratory rate 23 /min Marci Reid MD Work Phone: [employer] Work Phone: 04-25-2021 10:40-0400 SaO2% (BldA) [Mass fraction] 95 % Marci Reid MD Work Phone: [employer] Work Phone: 04-25-2021 10:40-0400 Systolic blood pressure 127 mm[Hg] Marci Reid MD Work Phone: [employer] Work Phone: 04-25-2021 10:03-0400 Body mass index (BMI) [Ratio] 25.77 kg/m2 Marci Reid MD Work Phone: [employer] Work Phone: 04-25-2021 10:03-0400 Body temperature 96.49 [degF] Marci Reid MD Work Phone: [employer] Work Phone: 04-25-2021 10:03-0400 Body weight 86.18 kg Marci Reid MD Work Phone: [employer] Work Phone: 03-03-2021 16:40-0400 Respiratory rate 16 /min Janet Tafoya DO Work Phone: [employer] Work Phone: 03-03-2021 16:27-0400 Heart rate 76 /min Janet Tafoya DO Work Phone: [employer] Work Phone: 03-03-2021 16:00-0400 Diastolic blood pressure 88 mm[Hg] Janet Tafoya DO Work Phone: [employer] Work Phone: 03-03-2021 16:00-0400 SaO2% (BldA) [Mass fraction] 98 % Janet Tafoya DO Work Phone: [employer] Work Phone: 03-03-2021 16:00-0400 Systolic blood pressure 145 mm[Hg] Janet Tafoya [employer] Work Phone: [employer] Phone: 03-03-2021 12:07-0400 Body mass index (BMI) [Ratio] 25.77 kg/m2 Janet Tafoya [employer] Work Phone: [employer] Phone: 03-03-2021 12:07-0400 Body temperature 97.3 [degF] Janet Tafoya [employer] Work Phone: [employer] Phone: 03-03-2021 12:07-0400 Body weight 86.18 kg Janet Tafoya [employer] Work Phone: [employer] Phone: 09-20-2020 16:15-0400 BP Diastolic 74 mm[Hg] [employer] Phone: 09-20-2020 16:15-0400 BP Systolic 123 mm[Hg] [employer] Phone: 09-20-2020 16:15-0400 Pulse (Heart Rate) 50 /min [employer] Phone: 09-20-2020 16:15-0400 Pulse Oximetry 98 % [employer] Phone: 09-20-2020 16:15-0400 Respiratory Rate 18 /min [employer] Phone: 09-20-2020 15:30-0400 Body Temperature 97.3 [degF] Levy I AM AT Phone: 09-20-2020 13:00-0400 BMI (Body Mass Index) 25.77 kg/m2 [employer] Phone: 09-20-2020 13:00-0400 Body weight 86.18 kg Levy Thomas [employer] Work Phone: 09-09-2020 12:30-0500 Height 182.9 cm Levy Thomas [facility] [employer] Work Phone: 05-25-2020 11:22-0500 Body Temperature 97.7 [degF] [employer] [place], [place] 05-25-2020 11:22-0500 BP Diastolic 66 mm[Hg] [facility] [employer] , [place] 05-25-2020 11:22-0500 BP Systolic 111 mm[Hg] [facility] [place] 05-25-2020 11:22-0500 Pulse Oximetry 98 % [facility] [place] 05-25-2020 11:22-0500 Respiratory Rate 16 /min [facility] [employer], [place] 05-25-2020 07:33-0500 Pulse (Heart Rate) 48 /min [facility] [employer] 05-25-2020 06:00-0500 BMI (Body Mass Index) 25.8 kg/m2 [facility] [employer] 05-25-2020 06:00-0500 Body weight 86.[address] [facility] [employer] , [place] 05-23-2020 10:00-0500 BP Diastolic 81 mm[Hg] Ric [employer] [place] 05-23-2020 10:00-0500 BP Systolic 118 mm[Hg] Ric [employer] [place] 05-23-2020 10:00-0500 Pulse (Heart Rate) 55 /min [employer] [place] 05-23-2020 10:00-0500 Pulse Oximetry 93 % Ric [employer] [place] 05-23-2020 10:00-0500 Respiratory Rate 20 /min Ric [employer], [place] 05-23-2020 09:48-0500 BMI (Body Mass Index) 25.77 kg/m2 Ric [employer], [place] 05-23-2020 09:48-0500 Body Temperature 97.39 [degF] Ric Tobias [facility], [place] 05-23-2020 09:48-0500 Body weight 86.18 kg Ric Tobias [facility], [place] 05-23-2020 09:48-0500 Height 182.9 cm Ric Tobias [facility], [place] 05-01-2019 12:13-0400 Body Temperature 97.2 [degF] [facility] [place] 05-01-2019 12:13-0400 BP Diastolic 78 mm[Hg] [facility] , [place] 05-01-2019 12:13-0400 BP Systolic 131 mm[Hg] [facility] , [place] 05-01-2019 12:13-0400 Pulse (Heart Rate) 72 /min [facility] Schedule [place], [place] 05-01-2019 12:13-0400 Respiratory Rate 18 /min [facility] [place] 04-24-2019 12:18-0400 BMI (Body Mass Index) 26.58 kg/m2 [facility] Schedule [facility], [place] 04-24-2019 12:18-0400 Body Temperature 97.2 [degF] [facility] [place] 04-24-2019 12:18-0400 Body weight 88.91 kg [facility] Schedule [facility] , [place] 04-24-2019 12:18-0400 BP Diastolic 72 mm[Hg] [facility] , [place] 04-24-2019 12:18-0400 BP Systolic 120 mm[Hg] [facility] Schedule [facility] [place] 04-24-2019 12:18-0400 Height 182.9 cm [facility] Schedule [facility] [place] 04-24-2019 12:18-0400 Pulse (Heart Rate) 84 /min [facility] Schedule [facility] 04-24-2019 12:18-0400 Respiratory Rate 16 /min [facility] Schedule [facility] 04-21-2019 11:00-0400 BP Diastolic 81 mm[Hg] [facility] 04-21-2019 11:00-0400 BP Systolic 131 mm[Hg] [facility] Thomas [facility] 04-21-2019 11:00-0400 Pulse (Heart Rate) 53 /min Levy Thomas [facility], [place] 04-21-2019 11:00-0400 Pulse Oximetry 99 % Levy Thomas [facility] 04-21-2019 11:00-0400 Respiratory Rate 18 /min Levy Thomas [facility], [place] 04-21-2019 10:30-0400 Body Temperature 97.59 [degF] [facility] [place] 04-21-2019 08:23-0400 BMI (Body Mass Index) 26.18 kg/m2 Levy Thomas [facility], [place] 04-21-2019 08:23-0400 Body weight 87.54 kg [facility] [place] 04-21-2019 08:23-0400 Height 182.9 cm Levy Thomas [facility] 04-17-2019 12:12-0400 BMI (Body Mass Index) 26.72 kg/m2 [place], [place] 04-17-2019 12:12-0400 Body Temperature 97.39 [degF] [place], [place] 04-17-2019 12:12-0400 Body weight 89.36 kg [place], [place] 04-17-2019 12:12-0400 BP Diastolic 77 mm[Hg] [place] 04-17-2019 12:12-0400 BP Systolic 122 mm[Hg] [facility] , [place] 04-17-2019 12:12-0400 Height 182.9 cm [place] 04-17-2019 12:12-0400 Pulse (Heart Rate) 73 /min [place] 04-17-2019 12:12-0400 Respiratory Rate 18 /min [facility], [place] 04-03-2019 12:17-0400 BMI (Body Mass Index) 26.58 kg/m2 [place] 04-03-2019 12:17-0400 Body Temperature 97.5 [degF] [facility] [place] 04-03-2019 12:17-0400 [facility] [place] 04-03-2019 12:17-0400 BP Diastolic 72 mm[Hg] [facility] Schedule [facility] , [place] 04-03-2019 12:17-0400 BP Systolic 127 mm[Hg] [facility] [place] 04-03-2019 12:17-0400 Pulse (Heart Rate) 69 /min [facility] 04-03-2019 12:17-0400 Respiratory Rate 18 /min [facility] [place] 03-20-2019 11:57-0400 Body Temperature 98.2 [degF] [facility] [place] 03-20-2019 11:57-0400 BP Diastolic 65 mm[Hg] [facility] Schedule [facility] , [place] 03-20-2019 11:57-0400 BP Systolic 115 mm[Hg] [facility] Schedule [facility] , [place] 03-20-2019 11:57-0400 Pulse (Heart Rate) 65 /min [facility] 03-20-2019 11:57-0400 Respiratory Rate 16 /min [facility] [place] 03-06-2019 12:09-0400 BMI (Body Mass Index) 26.39 kg/m2 [facility] 03-06-2019 12:090400 Body Temperature 97.59 [degF] [facility] [place] 03-06-2019 12:090400 Body weight 88.27 [facility] [place] 03-06-2019 12:090400 BP Diastolic 75 mm[Hg] [facility] Schedule [facility] , [place] 03-06-2019 12:09-0400 BP Systolic 112 mm[Hg] [facility] Schedule [facility] , [place] 03-06-2019 12:090400 Height 182.9 cm [facility] Schedule [facility] , [place] 03-06-2019 12:09-0400 Pulse (Heart Rate) 74 /min [facility] Schedule [facility] [place] 03-06-2019 12:09-0400 Respiratory Rate 16 /min [facility] Schedule [facility] [employer] [place] 02-27-2019 08:41-0400 BMI (Body Mass Index) 26.18 kg/m2 [facility] Schedule [place] 02-27-2019 08:41-0400 Body Temperature 97 [degF] [facility] Schedule [facility] [employer] [place] 02-27-2019 08:41-0400 Body weight 87.54 kg [facility] Schedule [place] 02-27-2019 08:41-0400 BP Diastolic 67 mm[Hg] [facility] [place] 02-27-2019 08:41-0400 BP Systolic 141 mm[Hg] [facility] [place] 02-27-2019 08:41-0400 Height 182.9 cm [facility] [place] 02-27-2019 08:41-0400 Pulse (Heart Rate) 64 /min [facility] Schedule [place] 02-27-2019 08:41-0400 Respiratory Rate 16 /min [facility] [employer] [place] 02-20-2019 11:51-0400 BMI (Body Mass Index) 26.58 kg/m2 [facility] Schedule [place] 02-20-2019 11:51-0400 Body Temperature 97.39 [degF] [facility] [place] 02-20-2019 11:51-0400 Body weight 88.91 [facility] [place] 02-20-2019 11:51-0400 BP Diastolic 81 mm[Hg] [facility] [place] 02-20-2019 11:51-0400 BP Systolic 135 mm[Hg] [facility] [place] 02-20-2019 11:51-0400 Height 182.9 cm [facility] [place] 02-20-2019 11:51-0400 Pulse (Heart Rate) 90 /min [facility] [place] 02-20-2019 11:51-0400 Respiratory Rate 18 /min [facility] [employer] [place] Encounters Encounter Date Encounter Type Care Provider Facility Start: 04-07-2024 End: 04-07-2024 ambulatory [facility]EVY [facility] Start: 04-06-2024 End: 04-06-2024 [facility] Start: 04-02-2024 End: 04-02-2024 ambulatory ALEXEI GUZMÁN Facility:[facility] Comment on above: Multiple myeloma not having achieved remission (HCC); Stage 3a chronic kidney disease (HCC) Start: 03-31-2024 End: 03-31-2024 ambulatory DO Adair R Shaista Work Phone: [facility] Work Phone: Start: 03-31-2024 End: 03-31-2024 Patient encounter procedure DO Adair Shaista Work Phone: [facility] Work Phone: Start: 03-29-2024 End: 03-29-2024 ambulatory Adair R Shaista Facility:[facility] Start: 03-29-2024 End: 03-29-2024 Patient encounter procedure DO Adair Shaista Work Phone: [facility] Work Phone: Start: 03-24-2024 Non-patient / Non-visit DO Shaniqua x Shaista Work Phone: [facility] Work Phone: Start: 03-22-2024 ambulatory ALEXEI GUZMÁN [facility] Start: 03-17-2024 Non-patient / Non-visit DO Shaniqua x Shaista Work Phone: [facility] Work Phone: Start: 03-16-2024 End: 03-29-2024 Evaluation and management of inpatient DO Adair Shaista Work Phone: [facility] Work Phone: Start: 03-13-2024 End: 03-16-2024 Evaluation and management of inpatient ALEXEI GUZMÁN [facility] Start: 03-12-2024 End: 03-13-2024 Emergency department patient visit PAUL AVELAR [facility] Start: 03-12-2024 End: 03-13-2024 Emergency department patient visit PAUL AVELAR [facility] Start: 03-12-2024 End: 03-13-2024 Emergency department patient visit PAUL AVELAR [facility] Start: 03-10-2024 End: 03-10-2024 ambulatory ADAIR Huizar [facility] Start: 03-10-2024 End: 03-10-2024 Subsequent hospital visit by physician Adair Noonan DO Work Phone: [facility] Comment on above: Elevated PSA Start: 03-04-2024 Office outpatient vi sit 25 minutes Shorty Huston Jr [facility] Start: 03-04-2024 ambulatory Shorty Huston Jr [facility] Start: 02-24-2024 End: 02-27-2024 Telephone encounter Kanika Aquino RN Work Phone: Hematology/Oncology Comment on above: Care Coordination (A bnormal labs) Start: 02-20-2024 End: 02-20-2024 Office outpatient visit 25 minutes Nelli Aguilar MD Work Phone: Hematology/Oncology Comment on above: Multiple myeloma not having achieved remission (HCC) (Primary Dx); Stage 3a chronic kidney disease (HCC) Start: 02-20-2024 Non-patient / Non-visit DO Shaniqua Noonan Work Phone: [facility] Work Phone: Start: 02-20-2024 End: 02-20-2024 ambulatory [facility] Work Phone: Hematology/Oncology Comment on above: Multiple myeloma not having achieved remission (HCC) Start: 02-19-2024 End: 02-19-2024 Telephone encounter Kanika Aquion RN Work Phone: Hematology/Oncology Comment on above: Care Coordination (T ransition of care) Start: 01-22-2024 End: 01-22-2024 Patient encounter procedure David Molina MD Work Phone: Hematology/Oncology Start: 01-22-2024 Non-patient / Non-visit DO Shaniqua celestine Noonan Work Phone: [facility] Work Phone: Start: 01-22-2024 End: 01-22-2024 ambulatory [facility] [place] Work Phone: Hematology/Oncology Comment on above: Multiple myeloma not having achieved remission (HCC) Multiple myeloma not having achieved remission (HCC) (Primary Dx) Start: 01-07-2024 End: 01-07-2024 ambulatory [facility] Work Phone: Start: 01-07-2024 End: 01-07-2024 Patient encounter procedure [facility] Work Phone: Start: 12-31-2023 End: 01-04-2024 Emergency department patient visit MARCI Noonan [facility] Start: 12-31-2023 End: 01-03-2024 Evaluation and management of inpatient ALEXEI Pineda GUZMÁN [facility] Start: 12-30-2023 Telephone encounter Kanika Aquino RN Work Phone: Hematology/Oncology Comment on above: Care Coordination (C hest congestion) Start: 12-24-2023 End: 12-24-2023 ambulatory [facility] [place] Work Phone: Hematology/Oncology Comment on above: Multiple myeloma not having achieved remission (HCC); Stage 3a chronic kidney disease (HCC) Multiple myeloma not having achieved remission (HCC) (Primary Dx) Refill Request Start: 12-24-2023 End: 12-24-2023 Patient encounter procedure David Molina MD Work Phone: Hematology/Oncology Start: 12-24-2023 Non-patient / Non-visit [facility] Work Phone: Start: 11-26-2023 End: 11-26-2023 Office outpatient visit 15 minutes Thi Valera PA-C Work Phone: Hematology/Oncology Comment on above: Multiple myeloma not having achieved remission (HCC) (Primary Dx); Stage 3a chronic kidney disease (HCC) Start: 11-26-2023 End: 11-26-2023 ambulatory [facility] [place] [place] Work Phone: Hematology/Oncology Comment on above: Multiple myeloma not having achieved remission (HCC) Start: 11-26-2023 Non-patient / Non-visit [facility] Work Phone: Start: 11-01-2023 Telephone encounter Kanika Aquino RN Work Phone: Hematology/Oncology Comment on above: Care Coordination (L ab results) Start: 10-30-2023 End: 10-30-2023 Patient encounter procedure David Molina MD Work Phone: Hematology/Oncology Start: 10-30-2023 Non-patient / Non-visit [facility] Work Phone: Start: 10-30-2023 End: 10-30-2023 ambulatory David Molina MD Work Phone: Hematology/Oncology Comment on above: Multiple myeloma not having achieved remission (HCC) (Primary Dx) Multiple myeloma not having achieved remission (HCC) Start: 10-15-2023 Telephone encounter Kanika Aquino RN Work Phone: Hematology/Oncology Comment on above: Care Coordination (C 1D1 treatment follow up call) Care Coordination (C linical update) Start: 10-11-2023 End: 10-12-2023 ambulatory Alexei Guzmán MD Facility:[facility] Start: 10-08-2023 Telephone encounter Kelli loo [facility] Work Phone: Hematology/Oncology Comment on above: Medication Update (N inlaro filled @ [place]) Care Coordination (O ral chemotherapy) Start: 10-04-2023 End: 10-04-2023 ambulatory ALEXEIMAGDY GUZMÁN Facility:[facility] Start: 10-04-2023 End: 10-04-2023 Nursing evaluation of patient and report Kanika Aquino RN Work Phone: Hematology/Oncology Comment on above: Multiple myeloma not having achieved remission (HCC) (Primary Dx) Start: 10-03-2023 End: 10-03-2023 ambulatory ALEXEI GUZMÁN Facility:[facility] Start: 10-02-2023 End: 10-02-2023 Patient encounter procedure David Molina MD Work Phone: [facility] Start: 10-02-2023 End: 10-02-2023 ambulatory [facility] [place] Work Phone: Hematology/Oncology Comment on above: Multiple myeloma not having achieved remission (HCC); Stage 3a chronic kidney disease (HCC); Leg swelling; Neuropathy Multiple myeloma not having achieved remission (HCC) (Primary Dx) Start: 09-30-2023 Telephone encounter Kanika Aquino RN Work Phone: Hematology/Oncology Comment on above: Care Coordination (U rine results) Start: 09-26-2023 End: 09-26-2023 ambulatory ALEXEI GUZMÁN Facility:[facility] Start: 09-24-2023 End: 09-24-2023 ambulatory DO Adair Noonan Work Phone: [facility] Work Phone: Start: 09-24-2023 End: 09-24-2023 Patient encounter procedure DO Adair Noonan Work Phone: [facility] Work Phone: Start: 09-23-2023 End: 09-23-2023 ambulatory ADAIR [facility]izar [facility] Start: 09-23-2023 End: 09-23-2023 Subsequent hospital visit by physician Adair Noonan Work Phone: [facility] Laboratory Comment on above: 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) Start: 09-19-2023 End: 09-19-2023 Patient encounter procedure Thi Valera PA-C Work Phone: [facility] Start: 09-19-2023 Non-patient / Non-visit DO Shaniqua x Shaista Work Phone: [facility] Work Phone: Start: 09-19-2023 End: 09-19-2023 ambulatory Thi Valera PA-C Work Phone: Hematology/Oncology Comment on above: Multiple myeloma not having achieved remission (HCC) (Primary Dx); Stage 3a chronic kidney disease (HCC); Leg swelling Multiple myeloma, re mission status unspecified (HCC) (Primary Dx) Multiple myeloma not having achieved remission (HCC); Stage 3a chronic kidney disease (HCC); Leg swelling; Neuropathy Start: 09-17-2023 End: 09-17-2023 ambulatory ADAIR NOONAN [facility] Start: 09-06-2023 End: 09-06-2023 Patient encounter procedure Thi ARELLANO-C Work Phone: [facility] Start: 09-06-2023 Non-patient / Non-visit DO Shaniqua x Shaista Work Phone: [facility] Work Phone: Start: 09-06-2023 End: 09-09-2023 ambulatory [facility] [place] Work Phone: Hematology/Oncology Comment on above: Multiple myeloma not having achieved remission (HCC); Stage 3a chronic kidney disease (HCC) Multiple myeloma not having achieved remission (HCC) (Primary Dx); Stage 3a chronic kidney disease (HCC); Leg swelling; Neuropathy Multiple myeloma, re mission status unspecified (HCC) (Primary Dx) Start: 08-28-2023 End: 08-28-2023 Patient encounter procedure Thi Valera PA-C Work Phone: [facility] Start: 08-28-2023 Non-patient / Non-visit DO Shaniqua x Shaista Work Phone: [facility] Work Phone: Start: 08-28-2023 End: 08-28-2023 ambulatory Thi Valera PA-C Work Phone: Hematology/Oncology Comment on above: Multiple myeloma not having achieved remission (HCC) (Primary Dx); Stage 3a chronic kidney disease (HCC); Leg swelling; Neuropathy; 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) Multiple myeloma not having achieved remission (HCC) Multiple myeloma, re mission status unspecified (HCC) (Primary Dx) Start: 08-23-2023 Telephone encounter Kanika Aquino RN Work Phone: Hematology/Oncology Comment on above: Care Coordination (r esults) Care Coordination (C 1D1 treatment follow up call) Start: 08-21-2023 Telephone encounter Kanika Aquino RN Work Phone: Hematology/Oncology Comment on above: Care Coordination (E R follow up call) Start: 08-21-2023 End: 08-21-2023 Patient encounter procedure David Molina MD Work Phone: [facility] Start: 08-21-2023 Non-patient / Non-visit DO Shaniqua Noonan Work Phone: [facility] Work Phone: Start: 08-21-2023 End: 08-21-2023 ambulatory David Molina MD Work Phone: Hematology/Oncology Comment on above: Multiple myeloma not having achieved remission (HCC) (Primary Dx) Multiple myeloma not having achieved remission (HCC); Malaise and fatigue Multiple myeloma, re mission status unspecified (HCC) (Primary Dx) Start: 08-20-2023 Telephone encounter Kanika Aquino RN Work Phone: Hematology/Oncology Comment on above: Care Coordination (E R) Start: 08-20-2023 End: 08-21-2023 Emergency department patient [facility] Start: 08-07-2023 Telephone encounter Kanika Aquino RN Work Phone: Hematology/Oncology Comment on above: Care Coordination (w eakness) Start: 07-31-2023 End: 07-31-2023 ambulatory ALLIE AUGUSTIN [facility] Facility:[facility] Start: 07-17-2023 End: 07-17-2023 ambulatory ALLIE AUGUSTIN [facility] Facility:[facility] Start: 07-16-2023 End: 07-16-2023 ambulatory OTTO DO V Not Available Start: 07-10-2023 End: 07-11-2023 ambulatory ALLIE AUGUSTIN [facility] Facility:[facility] Start: 07-09-2023 End: 07-09-2023 Admission to same day surgery center DO Adair Noonan Work Phone: [facility] [place] Start: 07-09-2023 End: 07-09-2023 ambulatory DO Adair R Shaista Work Phone: [facility] Work Phone: Start: 07-05-2023 End: 07-05-2023 ambulatory OTTO DO V Not Available Start: 07-03-2023 End: 07-04-2023 ambulatory ALLIE KERWIN [facility] Facility:[facility] Start: 06-19-2023 End: 06-20-2023 [facility] Facility:[facility] Start: 06-14-2023 Patient encounter procedure [facility] Provider [facility] Department Start: 06-12-2023 Telephone encounter Kanika Aquino RN Work Phone: Hematology/Oncology Comment on above: Care Coordination (M ed question) Start: 06-12-2023 End: 06-12-2023 Patient encounter procedure David Molina MD Work Phone: [facility] Start: 06-12-2023 End: 06-12-2023 ambulatory David Molina MD Work Phone: Hematology/Oncology Comment on above: Multiple myeloma not having achieved remission (HCC) (Primary Dx) Start: 06-11-2023 Telephone encounter Kanika Aquino RN Work Phone: Hematology/Oncology Comment on above: Care Coordination (P omalyst update) Start: 06-10-2023 End: 06-10-2023 ambulatory Ana NURA GOLDBERG Facility:[facility] Start: 06-10-2023 End: 06-10-2023 Patient encounter procedure Ana Goldberg MD Work Phone: Radiation Oncology Comment on above: Multiple myeloma not having achieved remission (HCC) (Primary Dx) Start: 06-10-2023 Telephone encounter Kanika Aquino RN Work Phone: Hematology/Oncology Comment on above: Care Coordination (C 1D1 treatment follow up call) Start: 06-07-2023 End: 06-10-2023 Patient encounter procedure Ana Goldberg MD Work Phone: [facility] Comment on above: Multiple myeloma not having achieved remission (HCC) (Primary Dx) Start: 06-07-2023 Radiation Oncology Note Ana Goldberg MD Work Phone: Radiation Oncology Comment on above: Simulation Note Treatment Planning Start: 06-07-2023 End: 06-10-2023 ambulatory Ana NURA GOLDBERG Facility:[facility] Start: 06-07-2023 End: 06-07-2023 Subsequent hospital visit by physician Ana Goldberg MD Work Phone: [facility] Start: 06-05-2023 End: 06-05-2023 ambulatory ALLIE SOLARES Facility:[facility] Start: 06-05-2023 End: 06-05-2023 ambulatory Ana NURA GOLDBERG Facility:[facility] Start: 06-05-2023 End: 06-05-2023 Patient encounter procedure Ana Goldberg MD Work Phone: Radiation Oncology Comment on above: Multiple myeloma not having achieved remission (HCC) (Primary Dx) Start: 06-04-2023 Telephone encounter Kanika Aquino RN Work Phone: Hematology/Oncology Comment on above: Care Coordination (E R recommendation) Start: 06-03-2023 Telephone encounter Kanika Aquino RN Work Phone: Hematology/Oncology Comment on above: Care Coordination (C linical update) Start: 05-30-2023 Telephone encounter Kanika Aquino RN Work Phone: Hematology/Oncology Comment on above: Care Coordination (A ppointment reschedule) Start: 05-21-2023 Refill Diana Brigitte [facility] Work Phone: [facility] Comment on above: Refill Request Start: 05-17-2023 Telephone encounter David zhang MD Work Phone: Hematology/Oncology Comment on above: Lab Orders Start: 05-15-2023 Refill Myesha brar [facility] Work Phone: [facility] Comment on above: Refill Request Care Coordination (F ollow up appointment and treatment) Medication Authoriza tion Start: 05-14-2023 End: 05-14-2023 Nursing evaluation of patient and report Kanika Aquino RN Work Phone: Hematology/Oncology Comment on above: Multiple myeloma not having achieved remission (HCC) (Primary Dx) Start: 05-14-2023 Telephone encounter Kanika Aquino RN Work Phone: Hematology/Oncology Comment on above: Care Coordination (C linical update) Start: 05-14-2023 End: 05-14-2023 Patient encounter procedure David Molina MD Work Phone: [facility] Start: 05-14-2023 End: 05-14-2023 ambulatory David Molina MD Work Phone: Hematology/Oncology Comment on above: Multiple myeloma not having achieved remission (HCC) (Primary Dx) Start: 05-07-2023 End: 05-07-2023 ambulatory ALEXEI GUZMÁN Facility:[facility] Start: 05-07-2023 End: 05-07-2023 Subsequent hospital visit by physician Arrival Time Radiology Work Phone: Radiology [facility] Comment on above: Multiple myeloma not having achieved remission (HCC) [C90.00] Start: 04-16-2023 End: 04-16-2023 Patient encounter procedure David Molina MD Work Phone: [facility] Start: 04-16-2023 End: 04-16-2023 ambulatory David Molina MD Work Phone: Hematology/Oncology Comment on above: Multiple myeloma not having achieved remission (HCC) (Primary Dx) Multiple myeloma, re mission status unspecified (HCC) (Primary Dx) Start: 04-13-2023 Refill Thi Valera PA-C Work Phone: Hematology/Oncology Comment on above: Refill Request Start: 04-10-2023 Telephone encounter Roaslee Bartholomew Hematology/Oncology Comment on above: Lab Orders Start: 03-19-2023 End: 03-19-2023 ambulatory Thi ARELLANO-Lexis Work Phone: Hematology/Oncology Comment on above: Multiple myeloma not having achieved remission (HCC) (Primary Dx); Stage 3a chronic kidney disease (HCC) Multiple myeloma, re mission status unspecified (HCC) (Primary Dx) Start: 03-19-2023 End: 03-19-2023 Patient encounter procedure Thi Valera PA-C Work Phone: [facility] Start: 03-08-2023 End: 03-09-2023 ambulatory Abiodun Nugent MD Facility:[facility] Start: 02-20-2023 Telephone encounter Elo barrow RN Work Phone: Hematology/Oncology Comment on above: 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 - O ther (Medication Question) Start: 02-19-2023 End: 02-19-2023 ambulatory David Molina MD Work Phone: Hematology/Oncology Comment on above: Multiple myeloma not having achieved remission (HCC) (Primary Dx) Multiple myeloma, re mission status unspecified (HCC) (Primary Dx) Start: 02-19-2023 End: 02-19-2023 Patient encounter procedure David Molina MD Work Phone: [facility] Start: 12-25-2022 End: 12-25-2022 ambulatory Chair 18 Jennifer Work Phone: Hematology/Oncology Comment on above: Multiple myeloma, re mission status unspecified (HCC) (Primary Dx) Multiple myeloma not having achieved remission (HCC) (Primary Dx); Stage 3a chronic kidney disease (HCC) Start: 12-25-2022 End: 12-25-2022 Patient encounter procedure Candis Culp JEWEL [employer]AT SURFACER.HEALTH TEACHER Work Phone: JENNIFER Start: 12-21-2022 End: 02-07-2023 Unknown Abiodun Nugent MD Facility:[facility] Start: 12-05-2022 End: 12-05-2022 Subsequent hospital visit by physician Adair Noonan Work Phone: [facility] Laboratory Comment on above: Elevated PSA Start: 11-27-2022 End: 11-27-2022 ambulatory David Molina MD Work Phone: Hematology/Oncology Comment on above: Multiple myeloma not having achieved remission (HCC) (Primary Dx) Start: 11-27-2022 End: 11-27-2022 Patient encounter procedure David Molina MD Work Phone: [facility]ENN[facility]ER Start: 11-01-2022 Telephone encounter Elo barrow RN Work Phone: Hematology/Oncology Comment on above: Care Coordination (M edication Question) Start: 10-30-2022 End: 10-30-2022 ambulatory Chair 19 Jennifer Work Phone: Hematology/Oncology Comment on above: Multiple myeloma, re mission status unspecified (HCC) (Primary Dx) Start: 10-04-2022 Documentation procedure Hayley lisa [employer]ER.HEALTH TEACHER Work Phone: Hematology/Oncology Start: 10-02-2022 End: 10-02-2022 ambulatory Chair 19 Jennifer Work Phone: Hematology/Oncology Comment on above: Multiple myeloma, re mission status unspecified (HCC) (Primary Dx) Multiple myeloma not having achieved remission (HCC) (Primary Dx) Start: 10-02-2022 End: 10-02-2022 Patient encounter procedure Thi Valera PA-C Work Phone: [facility]ER Start: 09-20-2022 Telephone encounter Kanika Aquino RN Work Phone: Hematology/Oncology Comment on above: Care Coordination (V accine question) Start: 09-17-2022 End: 09-17-2022 Subsequent hospital visit by physician Adair Noonan Work Phone: [facility] Laboratory Comment on above: 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); Elevated PSA Start: 09-13-2022 Telephone encounter Kanika Aquino RN Work Phone: Hematology/Oncology Comment on above: Care Coordination (V ertigo) Start: 09-04-2022 Documentation procedure Alexei Guzmán MD Work Phone: Hematology/Oncology Start: 09-04-2022 End: 09-04-2022 ambulatory David Molina MD Work Phone: Hematology/Oncology Comment on above: Multiple myeloma not having achieved remission (HCC) (Primary Dx) Start: 09-04-2022 End: 09-04-2022 Patient encounter procedure David Molina MD Work Phone: JENN[facility]ER Start: 08-28-2022 Telephone encounter David zhang MD Work Phone: Hematology/Oncology Comment on above: Lab Orders Start: 08-14-2022 Telemedicine consultation with patient Hayley Lu HEALTH TEACHER Work Phone: [facility] Comment on above: Multiple myeloma not having achieved remission (HCC) Start: 08-14-2022 Telephone encounter David zhang MD [facility] Comment on above: Appointment Start: 07-13-2022 Documentation procedure Ccf Provider [facility] Start: 07-13-2022 Historic EMR Ccf Provider [facility] Start: 07-06-2022 Documentation procedure Ccf Provider [facility] Start: 07-06-2022 Historic EMR Ccf Provider [facility] Start: 06-26-2022 Telephone encounter Kanika Aquino RN Work Phone: Hematology/Oncology Comment on above: Care Coordination (T reatment verification) Start: 06-12-2022 Patient encounter procedure Allie Solares MD Work Phone: [facility] Comment on above: Multiple myeloma not having achieved remission (HCC) Start: 05-25-2022 Telephone encounter Elo barrow RN Work Phone: Hematology/Oncology Comment on above: Results Start: 05-22-2022 End: 05-22-2022 ambulatory David Molina MD Work Phone: Hematology/Oncology Comment on above: Multiple myeloma not having achieved remission (HCC) (Primary Dx) Start: 05-22-2022 End: 05-22-2022 Patient encounter procedure David Molina MD Work Phone: [place] Start: 05-17-2022 Telephone encounter David zhang MD Work Phone: Radiation Oncology Comment on above: Lab Orders Start: 05-15-2022 End: 05-15-2022 Subsequent hospital visit by physician Adair Noonan Work Phone: [facility] Laboratory Comment on above: Elevated PSA Start: 05-14-2022 End: 05-14-2022 Subsequent hospital visit by physician Arrival Time Radiology Work Phone: Radiology Pet CT Comment on above: Multiple myeloma not having achieved remission (HCC) [C90.00] Start: 04-24-2022 Telephone encounter Isaias Ulloa MD Work Phone: Cardiology Comment on above: Request Outside [facility] Records Referral Information (PT) Start: 03-20-2022 End: 03-21-2022 ambulatory MARY GAN [facility] Start: 03-20-2022 End: 03-21-2022 Subsequent hospital visit by physician Mary Gan MD Work Phone: [facility] Car 2- Stepdown Comment on above: Arrived Start: 03-19-2022 End: 03-20-2022 ambulatory [facility] Start: 03-19-2022 End: 03-19-2022 Subsequent hospital visit by physician Adair Noonan Work Phone: [facility] Laboratory Start: 03-13-2022 Telephone encounter Kanika Aquino RN Work Phone: Hematology/Oncology Comment on above: Care Coordination (A ppointment question) Start: 03-13-2022 End: 03-14-2022 ambulatory [facility] Start: 02-26-2022 Orders Only Isaias caputo MD Work Phone: Cardiology Comment on above: Abnormality of left atrial appendage (Primary Dx) Start: 02-22-2022 Telephone encounter Kanika Aquino RN Work Phone: Hematology/Oncology Comment on above: Care Coordination (L ab results/) Start: 02-20-2022 End: 02-20-2022 ambulatory Chair 18 Jennifer Work Phone: Hematology/Oncology Comment on above: Multiple myeloma, re mission status unspecified (HCC) (Primary Dx) Multiple myeloma not having achieved remission (HCC) (Primary Dx) Start: 02-20-2022 End: 02-20-2022 Patient encounter procedure David Molina MD Work Phone: [employer] Start: 01-30-2022 End: 01-30-2022 Subsequent hospital visit by physician Adair Noonan Work Phone: [facility] Laboratory Comment on above: Bladder tumor; Gross hematuria; S/P angioplasty with stent Start: 01-24-2022 End: 01-28-2022 Evaluation and management of inpatient [facility] Start: 01-24-2022 End: 01-28-2022 Evaluation and management of inpatient Elliot Delacruz MD Work Phone: [facility] CAR 2 Comment on above: Hematuria, unspecifi ed type (Primary Dx); Loss of consciousness (HCC); S/P angioplasty with stent; Bladder tumor; Gross hematuria Start: 01-24-2022 End: 01-24-2022 Emergency department patient visit Alexei Guzmán MD Work Phone: [facility] ED Start: 01-24-2022 End: 01-24-2022 Subsequent hospital visit by physician Alexei Guzmán MD Work Phone: [facility] Start: 01-23-2022 End: 01-23-2022 ambulatory Chair 17 Jennifer Work Phone: Hematology/Oncology Comment on above: Multiple myeloma, re mission status unspecified (HCC) (Primary Dx) Multiple myeloma not having achieved remission (HCC) (Primary Dx) Start: 01-23-2022 End: 01-23-2022 Patient encounter procedure Thi Valera PA-C Work Phone: [facility]ER Start: 01-17-2022 Telephone encounter Rosalee Bartholomew Hematology/Oncology Comment on above: Lab Orders Start: 01-09-2022 End: 01-09-2022 ambulatory Chair 19 Jennifer Work Phone: Hematology/Oncology Comment on above: Multiple myeloma, re mission status unspecified (HCC) (Primary Dx) Start: 01-05-2022 End: 01-05-2022 Subsequent hospital visit by physician Alexei Guzmán MD Work Phone: [facility] Laboratory Comment on above: Elevated PSA Start: 12-25-2021 End: 12-25-2021 ambulatory Candis Culp APRN.HEALTH TEACHER Work Phone: Hematology/Oncology Comment on above: Multiple myeloma not having achieved remission (HCC) (Primary Dx) Multiple myeloma, re mission status unspecified (HCC) (Primary Dx) Start: 12-25-2021 End: 12-25-2021 Patient encounter procedure Candis Culp JEWEL [employer]AT SURFACER.HEALTH TEACHER Work Phone: JENN[facility]ER Start: 12-12-2021 End: 12-12-2021 ambulatory Chair 19 Jennifer Work Phone: Hematology/Oncology Comment on above: Multiple myeloma, re mission status unspecified (HCC) (Primary Dx) Multiple myeloma not having achieved remission (HCC) (Primary Dx) Start: 12-12-2021 End: 12-12-2021 Patient encounter procedure Candis Culp APRN.HEALTH TEACHER Work Phone: [facility]ENN[facility]ER Start: 12-01-2021 End: 12-01-2021 Subsequent hospital visit by physician Alexei Guzmán MD Work Phone: [facility] Laboratory Comment on above: Elevated PSA; 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) Start: 11-28-2021 End: 11-28-2021 ambulatory David Molina MD Work Phone: Hematology/Oncology Comment on above: Multiple myeloma, re mission status unspecified (HCC) (Primary Dx) Start: 11-28-2021 End: 11-28-2021 Patient encounter procedure David Molina MD Work Phone: [facility]ER Start: 11-14-2021 End: 11-14-2021 ambulatory Thi Valera PA-C Work Phone: Hematology/Oncology Comment on above: Multiple myeloma, re mission status unspecified (HCC) (Primary Dx) Start: 11-14-2021 End: 11-14-2021 Patient encounter procedure Thi Valera PA-C Work Phone: [facility]ER Start: 10-31-2021 End: 10-31-2021 ambulatory Chair 11 Jennifer Work Phone: Hematology/Oncology Comment on above: Multiple myeloma, re mission status unspecified (HCC) (Primary Dx) Multiple myeloma, re mission status unspecified (HCC) (Primary Dx); Achilles tendinitis of left lower extremity Start: 10-31-2021 End: 10-31-2021 Patient encounter procedure David Molina MD Work Phone: [facility]ENN[facility]ER Start: 10-31-2021 Telephone encounter David zhang MD Work Phone: [facility] Comment on above: Referral Information (PT) Start: 10-18-2021 Telephone encounter Kanika Aquino RN Work Phone: Hematology/Oncology Comment on above: Care Coordination (x ray results) Start: 10-17-2021 End: 10-17-2021 Subsequent hospital visit by physician General Jonh Rodriguez Mc Work Phone: Radiology Comment on above: Multiple myeloma, re mission status unspecified (HCC) [C90.00] Start: 10-17-2021 End: 10-17-2021 ambulatory Thi Radha Moraima PA-C Work Phone: Hematology/Oncology Comment on above: Multiple myeloma, re mission status unspecified (HCC) (Primary Dx); Acute left ankle pain Multiple myeloma, re mission status unspecified (HCC) (Primary Dx) Start: 10-17-2021 End: 10-17-2021 Patient encounter procedure Thi Valera PA-C Work Phone: [facility]ENN[facility]ER Start: 10-11-2021 Telephone encounter Thi Radha Chadd swann PA-C Work Phone: Hematology/Oncology Comment on above: Lab Orders Start: 09-27-2021 End: 09-27-2021 ambulatory David Molina MD Work Phone: Hematology/Oncology Comment on above: Multiple myeloma, re mission status unspecified (HCC) (Primary Dx) Start: 09-27-2021 End: 09-27-2021 Patient encounter procedure David Molina MD Work Phone: JENN[facility]ER Start: 09-21-2021 Chart abstracting David sibley MD Work Phone: Hematology/Oncology Start: 09-07-2021 Social Work Alexei Noonan Work Phone: [facility] Start: 08-29-2021 Patient encounter procedure Allie Solares MD Work Phone: [facility] Comment on above: Multiple myeloma not having achieved remission (HCC) Start: 08-02-2021 Orders Only Alexei Noonan Work Phone: [facility] Comment on above: Multiple myeloma not having achieved remission (HCC) Start: 08-01-2021 Patient encounter procedure Allie Solares MD Work Phone: [facility] Comment on above: Multiple myeloma not having achieved remission (HCC) Start: 07-13-2021 Nursing evaluation o f patient and report Alexei Guzmán MD Work Phone: [facility] Comment on above: Multiple myeloma not having achieved remission (HCC) Start: 07-04-2021 Patient encounter procedure Allie Solares MD Work Phone: [facility] Comment on above: Multiple myeloma not having achieved remission (HCC) Start: 06-08-2021 Documentation procedure Alexei Guzmán MD Work Phone: [facility] Start: 05-29-2021 Documentation procedure Alexei Guzmán MD Work Phone: [facility] Start: 05-18-2021 Documentation procedure Alexei Guzmán MD Work Phone: [facility] Start: 05-17-2021 End: 05-19-2021 Subsequent hospital visit by physician Kwabena Pet Scan Room [facility] PET Scan Comment on above: Multiple myeloma, re mission status unspecified (HCC) Start: 05-09-2021 End: 05-09-2021 Subsequent hospital visit by physician Kwabena Cr Education Room [facility] Cardiac Rehab Comment on above: Arrived Start: 05-08-2021 ambulatory ALEXEI GUZMÁN Facility:[facility] Start: 04-25-2021 End: 04-27-2021 Evaluation and management of inpatient Mario Alberto Conner MD Work Phone: [facility] CAR 1 Comment on above: ST elevation myocard ial infarction (STEMI), unspecified artery (HCC) Start: 04-25-2021 End: 04-25-2021 Emergency department patient visit Marci Reid MD Work Phone: [facility] ED Comment on above: 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) Start: 04-12-2021 End: 04-12-2021 Subsequent hospital visit by physician Alexei Guzmán MD Work Phone: [facility] Laboratory Start: 03-09-2021 End: 03-11-2021 Subsequent hospital visit by physician Kwabena Kim Dr Room 4 [facility] Radiology Comment on above: Multiple myeloma in remission (HCC) Start: 03-03-2021 End: 03-03-2021 Emergency department patient visit Janet Tafoya DO Work Phone: [facility] ED Comment on above: Pathological fractur e of rib, initial encounter (Primary Dx) Start: 02-23-2021 End: 02-23-2021 Subsequent hospital visit by physician Fernandez Romo PT [facility] Physical Therapy Start: 02-21-2021 End: 02-22-[address] LUIS FELIPE COMER Facility: Start: 02-17-2021 End: 02-17-2021 Subsequent hospital visit by physician Fernandez Romo PT [facility] Physical Therapy Comment on above: Arrived Start: 01-26-2021 End: 01-26-2021 Subsequent hospital visit by physician Fernandez Romo PT [facility] Physical Therapy Comment on above: Arrived Start: 01-24-2021 End: 01-24-2021 Subsequent hospital visit by physician Igor Rojas [facility] Physical Therapy Comment on above: Arrived Start: 01-20-2021 End: 01-20-2021 Subsequent hospital visit by physician Fernandez Romo PT [facility] Physical Therapy Comment on above: Arrived Start: 01-18-2021 End: 01-18-2021 [facility] Comment on above: Arrived Start: 01-13-2021 End: 01-13-2021 Subsequent hospital visit by physician Ely Ellison TRUCK UNLOADER [facility] Physical Therapy Comment on above: Arrived Start: 01-10-2021 End: 01-10-2021 Subsequent hospital visit by physician Fernandez Romo PT [facility] Physical Therapy Comment on above: Arrived Start: 01-09-2021 End: 01-09-2021 Subsequent hospital visit by physician [facility] Laboratory Comment on above: 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) Start: 01-05-2021 End: 01-05-2021 Subsequent hospital visit by physician Patti Desai PT [facility] Physical Therapy Comment on above: Arrived Start: 01-03-2021 End: 01-03-2021 Subsequent hospital visit by physician Igor Rojas [facility] Physical Therapy Comment on above: Arrived Start: 12-30-2020 End: 12-30-2020 Subsequent hospital visit by physician Cale Tee [employer] UNLOADER [facility] Physical Therapy Comment on above: Arrived Start: 12-26-2020 End: 12-26-2020 Subsequent hospital visit by physician Martha Lima PT [facility] Physical Therapy Comment on above: Arrived Start: 12-22-2020 End: 12-22-2020 Subsequent hospital visit by physician Fernandez Romo PT [facility] Physical Therapy Comment on above: Arrived Start: 12-12-2020 End: 12-12-2020 Subsequent hospital visit by physician [facility] Laboratory Comment on above: Multiple myeloma in remission (HCC); 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); Elevated PSA Start: 11-18-2020 End: 11-20-2020 Subsequent hospital visit by physician [facility] Mri Scanner [facility] MRI Comment on above: Fatigue, unspecified type Start: 09-20-2020 End: 09-20-2020 Subsequent hospital visit by physician Levy Thomas Work Phone: [facility] OR Start: 09-13-2020 End: 09-17-2020 Subsequent hospital visit by physician [facility] Covid19 Pat Screening Schedule [facility] Laboratory Comment on above: Multiple myeloma, re mission status unspecified (HCC) Preoperative testing Start: 09-05-2020 End: 09-05-2020 Subsequent hospital visit by physician [facility] Laboratory Start: 09-05-2020 End: 09-05-2020 Subsequent hospital visit by physician [facility] EKG Comment on above: 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); Frequency of urination Start: 05-23-2020 End: 05-25-2020 Evaluation and management of inpatient Mary Gan Work Phone: [facility] CAR 1 Comment on above: ST elevation myocard ial infarction (STEMI), unspecified artery (HCC) (Primary Dx) Start: 05-23-2020 End: 05-23-2020 Emergency department patient visit Ric Tobias Work Phone: [facility] ED Comment on above: ST elevation myocard ial infarction (STEMI) involving other coronary artery of inferior wall (HCC) (Primary Dx); Syncope and collapse Start: 05-17-2020 End: 05-21-2020 Subsequent hospital visit by physician [facility] Covid19 Pat Screening Schedule [facility] PRE ADMIT Start: 05-11-2020 End: 05-11-2020 Subsequent hospital visit by physician Alexei Guzmán [facility] Laboratory Comment on above: 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) Start: 05-11-2020 End: 05-11-2020 Subsequent [facility] Comment on above: 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) Start: 05-04-2020 End: 05-06-2020 Subsequent hospital visit by physician [facility] [address] Room 2 [facility] Radiology Comment on above: Multiple myeloma in remission (HCC) Start: 04-22-2020 End: 04-22-2020 Subsequent hospital visit by physician [facility] Lab Drawing Room [facility] Laboratory Comment on above: Multiple myeloma, re mission status unspecified (HCC) Start: 03-10-2020 End: 03-10-2020 Subsequent hospital visit by physician Alexei Guzmán [facility] Laboratory Comment on above: 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) Start: 03-01-2020 End: 03-01-2020 Subsequent hospital visit by physician [facility] Lab Drawing Room [facility] Laboratory Comment on above: Elevated PSA Multiple myeloma, re mission status unspecified (HCC) Start: 12-14-2019 End: 12-14-2019 Subsequent hospital visit by physician [facility] Lab Drawing Room [facility] Laboratory Comment on above: Multiple myeloma, re mission status unspecified (HCC) Start: 12-07-2019 End: 12-07-2019 Subsequent hospital visit by physician Alexei Guzmán [facility] Laboratory Comment on above: 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) Start: 09-16-2019 End: 09-16-2019 Subsequent hospital visit by physician [facility] Lab Drawing Room [facility] Laboratory Comment on above: Multiple myeloma, re mission status unspecified (HCC) Start: 09-09-2019 End: 09-09-2019 Subsequent hospital visit by physician [facility] Lab Drawing Room [facility] Laboratory Comment on above: Elevated PSA Multiple myeloma, re mission status unspecified (HCC) Start: 09-02-2019 End: 09-02-2019 Subsequent hospital visit by physician Alexei Guzmán [facility] Laboratory Comment on above: 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) Start: 08-14-2019 Documentation procedure Karime Adam Work Phone: [facility] Start: 08-14-2019 Historic EMR Karime eY Work Phone: [facility] Draw Station Start: 07-14-2019 Documentation procedure Karime Adam Work Phone: [facility] Start: 07-14-2019 Historic EMR Timcarlos Ye Work Phone: [facility] Draw Station Start: 05-20-2019 End: 05-20-2019 Subsequent hospital visit by physician [facility] Lab Drawing Room [facility] Laboratory Comment on above: Multiple myeloma, re mission status unspecified (HCC) Start: 05-01-2019 End: 05-01-2019 Subsequent hospital visit by physician [facility] Med Onc Room 7 [facility] Comment on above: Multiple myeloma, re mission status unspecified (HCC) (Primary Dx); 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) Start: 04-30-2019 End: 04-30-2019 Subsequent hospital visit by physician [facility] Lab Drawing Room [facility] Laboratory Comment on above: 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); Plasmacytoma (HCC) Start: 04-24-2019 End: 04-24-2019 Subsequent hospital visit by physician [facility] Med Onc Room 7 Schedule [facility] Comment on above: 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) Start: 04-23-2019 End: 04-23-2019 Subsequent hospital visit by physician [facility] Lab Drawing Room [facility] Laboratory Comment on above: 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); Plasmacytoma (HCC) Start: 04-21-2019 End: 04-21-2019 Subsequent hospital visit by physician Levy Thomas Work Phone: [facility] OR Start: 04-17-2019 End: 04-17-2019 Subsequent hospital visit by physician [facility] Med Onc Room 7 Schedule [facility] MED ONC Comment on above: Multiple myeloma, re mission status unspecified (HCC) (Primary Dx); 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) Start: 04-16-2019 End: 04-16-2019 Subsequent hospital visit by physician [facility] Lab Drawing Room [facility] Laboratory Comment on above: 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); Plasmacytoma (HCC); Multiple myeloma not having achieved remission (HCC) Start: 04-06-2019 End: 04-06-2019 Subsequent hospital visit by physician Alexei Guzmán [facility] Laboratory Comment on above: 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); Frequency of urination Start: 04-03-2019 End: 04-03-2019 Subsequent hospital visit by physician [facility] Med Onc Room 7 Schedule [facility] Comment on above: Multiple myeloma, re mission status unspecified (HCC) (Primary Dx); 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) Start: 04-02-2019 End: 04-02-2019 Subsequent hospital visit by physician [facility] Lab Drawing Room [facility] Laboratory Comment on above: 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); Plasmacytoma (HCC) Start: 03-20-2019 End: 03-20-2019 Subsequent hospital visit by physician [facility] Med Onc Room 7 Schedule [facility] Comment on above: Multiple myeloma, re mission status unspecified (HCC) (Primary Dx); 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) Start: 03-20-2019 End: 03-20-2019 Subsequent hospital visit by physician [facility] Lab Drawing Room [facility] Laboratory Comment on above: 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); Plasmacytoma (HCC) Start: 03-06-2019 End: 03-06-2019 Subsequent hospital visit by physician [facility] Med Onc Room 7 Schedule [facility] Comment on above: 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) Start: 03-06-2019 End: 03-06-2019 Subsequent hospital visit by physician [facility] Lab Drawing Room [facility] [facility] Comment on above: 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); Plasmacytoma (HCC) Start: 02-27-2019 End: 02-27-2019 Subsequent hospital visit by physician [facility] Med Onc Room 7 Schedule [facility] Comment on above: 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) Start: 02-26-2019 End: 02-26-2019 Subsequent hospital visit by physician [facility] Lab Drawing Room [facility] Laboratory Comment on above: 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); Plasmacytoma (HCC) Start: 02-20-2019 End: 02-20-2019 Subsequent hospital visit by physician [facility] Med Onc Room 7 Schedule [facility] Comment on above: 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) Start: 02-20-2019 End: 02-20-2019 Subsequent hospital visit by physician [facility] Lab Drawing Room [facility] Laboratory Comment on above: 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); Plasmacytoma (HCC) Procedures Date Procedure Procedure Detail Performing Clinician Start: 04-02-2024 Blood count complete auto&auto difrntl wbc Nelli Aguilar MD Work Phone: Start: 03-18-2024 Plain chest X-ray DO Al ex Shaista Work Phone: Start: 03-10-2024 Assay of prostate sp ecific antigen total Levy Thomas MD Work Phone: Start: 03-04-2024 Computerized ophthal chang imaging retina Shorty Huston Start: 03-04-2024 Eylea HD Shorty antoine Start: 03-04-2024 Intravitreal njx pharmacologic agt spx Shorty Huston Start: 02-20-2024 Blood count complete auto&auto difrntl wbc Nelli Aguilar MD Work Phone: Start: 01-22-2024 CBC + DIFF David zhang MD Work Phone: Start: 01-22-2024 Comprehensive metabo lic panel David Molina MD Work Phone: Start: 12-24-2023 CBC + DIFF Thi Radha Mu sser PA-C Work Phone: Start: 12-24-2023 Comprehensive metabo lic panel Thi Valera PA-C Work Phone: Start: 11-26-2023 Blood count complete auto&auto difrntl wbc David Molina MD Work Phone: Start: 10-30-2023 Blood count complete auto&auto difrntl wbc David Molina MD Work Phone: Start: 10-02-2023 CBC + DIFF Thi Radha Mu sser PA-C Work Phone: Start: 10-02-2023 Comprehensive metabo lic panel Thi Valera PA-C Work Phone: Start: 09-19-2023 Blood count complete auto&auto difrntl wbc Thi Vasquezer PA-C Work Phone: Start: 09-06-2023 Blood count complete auto&auto difrntl wbc Thi Vasquezer PA-C Work Phone: Start: 08-28-2023 Basic metabolic pane l calcium total David Molina MD Work Phone: Start: 08-21-2023 CBC + DIFF Thi Vaughan Mu sser PA-C Work Phone: Start: 08-21-2023 Comprehensive metabo lic panel Thi Vasquezer PA-C Work Phone: Start: 07-09-2023 Plain chest X-ray DO Al ex Shaista Work Phone: Start: 07-09-2023 OR Infusaport Insertion/Removal (Not Applicable) DO Adair Noonan Work Phone: Start: 05-07-[address] attenuation whole body David Molina MD Work Phone: Start: 05-07-2023 Gluc bld gluc mntr d ev cleared fda spec home use [facility] Provider Start: 09-17-2022 PSA screening Adair hickman Work Phone: Comment on above: The [employer] ECLIA as say is used. Results obtained with different assay methods cannot be used interchangeably. Start: 09-17-2022 Assay of prostate sp ecific antigen complexed Levy Thomas MD Work Phone: Start: 05-16-2022 PSA screening Adair hickman Work Phone: Comment on above: The [employer] ECLIA as say is used. Results obtained with different assay methods cannot be used interchangeably. 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 Work Phone: Start: 05-14-[address] attenuation whole body David Molina MD Work Phone: Start: 05-14-2022 Gluc bld gluc mntr d ev cleared fda spec home use [facility] Provider Start: 03-21-2022 Echo tthrc r-t 2d w/wom-mode compl spec&colr d Mary Gan MD Work Phone: Start: 03-21-2022 Basic metabolic pane l calcium total Mary Gan MD Work Phone: Start: 03-20-2022 Coagulation time activated Mary Gan MD Work Phone: Start: 03-20-2022 Transesophageal echocardiography Mary Gan MD Work Phone: Start: 03-20-2022 Chloride [Moles/volu me] in Serum or Plasma Mary Gan MD Work Phone: Start: 03-20-2022 CREATININE W/GFR POI NT OF CARE Mary Gan MD Work Phone: Start: 03-20-2022 Gluc bld gluc mntr d ev cleared fda spec home use Mary Gan MD Work Phone: Start: 03-20-2022 Potassium [Moles/vol ume] in Serum or Plasma Mary Gan MD Work Phone: Start: 03-20-2022 Sodium [Moles/volume ] in Serum or Plasma Mary Gan MD Work Phone: Start: 03-20-2022 Ecg routine ecg w/le ast 12 lds w/i&r Mary Gan MD Work Phone: Start: 03-19-2022 Blood typing serologic abo Mary Gan MD Work Phone: Start: 01-30-2022 Basic metabolic pane l calcium total Юлия Larios MD Work Phone: Start: 01-28-2022 Ecg routine ecg w/le ast 12 lds w/i&r Юлия Larios MD Work Phone: Start: 01-28-2022 BASIC METABOLIC PANE L W/ REFLEX TO MG FOR LOW K Юлия Larios MD Work Phone: Start: 01-28-2022 SPECIMEN REJECTION Trey Larios MD Work Phone: Start: 01-27-2022 Assay of ferritin Tee Larios MD Work Phone: Start: 01-27-2022 BASIC METABOLIC PANE L W/ REFLEX TO MG FOR LOW K Юлия Larios MD Work Phone: Start: 01-26-2022 COVID-19, RAPID Monique Larios MD Work Phone: Start: 01-26-2022 Echo tthrc r-t 2d w/wom-mode compl spec&colr d Lisette R Wong [employer]EL [employer] 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 AND OUTREACH ASSISTANT Work Phone: Start: 01-26-2022 Blood count complete auto&auto difrntl wbc Юлия Larios MD Work Phone: Start: 01-26-2022 Antibody screen Elliot Delacruz MD Work Phone: Start: 01-25-2022 Assay of lactate Lino Larios MD Work Phone: Start: 01-25-2022 BASIC METABOLIC PANE L W/ REFLEX TO MG FOR LOW K Юлия Larios MD Work Phone: Start: 01-25-2022 Assay of troponin quantitative Alec Warner MD Work Phone: Start: 01-25-2022 Ecg routine ecg w/le ast 12 lds i&r only Janet S Migdalia DO Work Phone: Start: 01-25-2022 Assay of troponin quantitative Alec Warner MD Work Phone: Start: 01-25-2022 SURGICAL PATHOLOGY REPORT Юлия Larios MD Work Phone: Start: 01-25-2022 Assay of ferritin Trici a R Lucrecia JEWEL [employer]AT 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 AND OUTREACH ASSISTANT Work Phone: Start: 01-25-2022 BASIC METABOLIC PANE L W/ REFLEX TO MG FOR LOW K Lisette R Wong JEWEL [employer]AT 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 AND OUTREACH ASSISTANT Work Phone: Start: 01-24-2022 VITAMIN B12 & FOLATE Ariana Warner MD Work Phone: Start: 01-24-2022 End: 01-24-2022 Assay of lactate Karla Jett MD Work Phone: Start: 01-24-2022 Blood typing serologic abo Maxim Timmy LÓPEZ Work Phone: Start: 01-09-2022 Blood count complete automated David Molina MD Work Phone: Start: 12-01-2021 PSA screening Alexei briggs MD Work Phone: Comment on above: The Viv ECLIA as say is used. Results obtained with different assay methods cannot be used interchangeably. Start: 12-01-2021 Assay of prostate sp ecific antigen complexed Levy Thomas MD Work Phone: Start: 10-17-2021 Radex ankle complete minimum 3 views Thi Valera PA-C Work Phone: Start: 05-17-[address] atten uation skull base mid-thigh Raquel Gunn MD Work Phone: Start: 05-10-2021 Protein total xcpt refractometry urine Alexei Guzmán MD Work Phone: Start: 04-27-2021 Echo tthrc r-t 2d w/wom-mode compl spec&colr d Beto Stockton MD Work Phone: Start: 04-26-2021 Blood count complete automated Nayla Carbajal MD Work Phone: Start: 04-25-2021 End: 04-25-2021 Cardiac catheterization Mario Alberto Conner MD Work Phone: Start: 04-25-2021 Radiologic exam ches t single view Mraci S Dearden MD Work Phone: Start: 04-25-2021 Comprehensive metabo lic panel Marci Reid MD Work Phone: Start: 03-09-2021 Radiologic examinati on osseous survey compl Nic Garcia MD Work Phone: Start: 03-03-2021 Assay of troponin quantitative Janet Nawaf Tafoya DO Work Phone: Start: 03-03-2021 Ct thorax w/contrast material Janet Burnett Michelet DO Work Phone: Start: 03-03-2021 Urinalysis microscopic only Janet Celestinis DO Work Phone: Start: 03-03-2021 Urnls dip stick/tabl et rgnt auto w/o microscopy Janet Nawaf Tafoya DO Work Phone: Start: 03-03-2021 Radiologic exam ches t single view Janet Tafoya DO Work Phone: Start: 03-03-2021 Ecg routine ecg w/le ast 12 lds w/i&r Janet Celestinis DO Work Phone: Start: 03-03-2021 Assay of troponin quantitative Janet Tafoya DO Work Phone: Start: 12-12-2020 PSA screening Comment on above: The Viv ECLIA as say is used. Results obtained with different assay methods cannot be used interchangeably. Start: 12-12-2020 Comprehensive metabo lic panel Nic Garcia MD Work Phone: Start: 11-18-2020 Mri brain brain stem w/o contrast material Raji Garcia DO Work Phone: Start: 09-13-2020 COVID-19 Ganesh patrick Work Phone: Start: 09-13-2020 Assay of gammaglobulin ige Karime Weaver Work Phone: Start: 09-13-2020 Assay of nephelometr y each analyte stacy Karime Weaver Work Phone: Start: 09-13-2020 Blood count complete auto&auto difrntl wbc Karime Weaver Work Phone: Start: 09-13-2020 Comprehensive metabo lic panel Karime Weaver Work Phone: Start: 09-05-2020 Basic metabolic pane l calcium total Levy Thmoas Work Phone: Start: 09-05-2020 Blood count complete auto&auto difrntl wbc Levy Thomas Work Phone: Start: 09-05-2020 Ecg routine ecg w/le ast 12 lds w/i&r Levy Thomas Work Phone: Start: 09-05-2020 EKG REPORT [facility] Scanni [facility] Start: 09-05-2020 Urnls dip stick/tabl et reagent auto microscopy Levy Thomas Work Phone: Start: 05-25-2020 Echo tthrc r-t 2d w/wom-mode compl spec&colr d Aminawaf Novoa Work Phone: Start: 05-25-2020 Assay of troponin quantitative Amir Osmani Novoa Work Phone: Start: 05-24-2020 Assay of troponin quantitative Amir Osmani Novoa Work Phone: Start: 05-24-2020 Assay of troponin quantitative Amir Osmani Novoa Work Phone: Start: 05-24-2020 Assay of troponin quantitative Ameer Malik Work Phone: Start: 05-24-2020 Blood count complete auto&auto difrntl wbc Ameer Malik Work Phone: Start: 05-24-2020 Blood count complete automated Ameer Malik Work Phone: Start: 05-24-2020 Blood count complete auto&auto difrntl wbc Nayla JonesPanbasim Work Phone: Start: 05-24-2020 End: 05-24-2020 SPECIMEN REJECTION Nayla Carbajal Work Phone: Start: 05-23-2020 COVID-19 Mary woodruff Work Phone: Start: 05-23-2020 End: 05-23-2020 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 [facility] Scanning Start: 05-23-2020 Coagulation time activated Mary Gan Work Phone: Start: 05-23-2020 Catheterization and angiography procedure details panel Mary Gan Work Phone: Start: 05-23-2020 Radiologic exam ches t single view Ric Tobias Work Phone: Start: 05-23-2020 Ecg routine ecg w/le ast 12 lds w/i&r Ric Tobias Work Phone: Start: 05-23-2020 Assay of troponin quantitative Ric Tobias Work Phone: Start: 05-23-2020 BASIC METABOLIC PANE L W/ REFLEX TO MG FOR LOW K Ric Tobias Work Phone: Start: 05-23-2020 Blood count complete automated Ric Tobias Work Phone: Start: 05-17-2020 SPECIMEN REJECTION Ganesh Ybarra Work Phone: Start: 05-11-2020 Ecg routine ecg w/le ast 12 lds w/i&r Levy Thomas Work Phone: Start: 05-11-2020 EKG REPORT [facility] Sc[facility] Start: 05-11-2020 Cytopath fl nongyn, sm/fltr Levy Thomas Work Phone: Start: 05-04-2020 Radiologic examinati on osseous survey compl Nic Garcia Work Phone: Start: 04-22-2020 Assay of gammaglobulin ige Karime Weaver Work Phone: Start: 04-22-2020 Assay of nephelometr y each analyte stacy Karime Weaver Work Phone: Start: 04-22-2020 Blood count complete auto&auto difrntl wbc Adcarlos R Al-Elvis Work Phone: Start: 04-22-2020 Comprehensive metabo lic panel Adcarlos R Al-Elvis Work Phone: Start: 03-10-2020 Cytopath fl nongyn, sm/fltr Levy Thomas Work Phone: Start: 03-01-2020 [object Object] Alexei Guzmán Comment on above: The [employer] ECLIA as say is used. Results obtained with different assay methods cannot be used interchangeably. Start: 03-01-2020 Assay of prostate sp ecific antigen complexed Levy Thomas Work Phone: Start: 03-01-2020 Assay of gammaglobulin ige Karime R Al-Elvis Work Phone: Start: 03-01-2020 Assay of nephelometr y each analyte stacy Karime R Al-Elvis Work Phone: Start: 03-01-2020 Blood count complete auto&auto difrntl wbc Adcarlos R Al-Elvis Work Phone: Start: 03-01-2020 Comprehensive metabo lic panel Karime R Al-Elvis Work Phone: Start: 12-14-2019 Assay of gammaglobulin ige Adnan R Al-Elvis Work Phone: Start: 12-14-2019 Assay of nephelometr y each analyte stacy Adcarlos R Al-Elvis Work Phone: Start: 12-14-2019 Blood count complete auto&auto difrntl wbc Adcarlos R Al-Elvis Work Phone: Start: 12-14-2019 Comprehensive metabo lic panel Adnan R Al-Elvis Work Phone: Start: 09-16-2019 Assay of gammaglobulin ige Adnan R Al-Elvis Work Phone: Start: 09-16-2019 Assay of nephelometr y each analyte stacy Adnan R Al-Elvis Work Phone: Start: 09-09-2019 [object Object] Kwabena vaughan Comment on above: The Viv ECLIA as say is used. Results obtained with different assay methods cannot be used interchangeably. Start: 09-09-2019 Assay of prostate sp ecific antigen complexed Trevor Nazario Work Phone: Start: 09-09-2019 Basic metabolic pane l calcium total Adnan R Al-Elvis Work Phone: Start: 09-09-2019 Blood count complete auto&auto difrntl wbc Adnan R Al-Elvis Work Phone: Start: 09-02-2019 Cytopath fl nongyn, sm/fltr Levy Thomas Work Phone: Start: 08-14-2019 BASIC METABOLIC PNL Adn an R Al Elvis Work Phone: Start: 08-14-2019 CBC + DIFF Adnan R Al Elvis Work Phone: Start: 07-14-2019 BASIC METABOLIC PNL Adn an R Al Elvis Work Phone: Start: 07-14-2019 CBC + DIFF Adnan R Al Elvis Work Phone: Start: 07-14-2019 MANUAL SCAN/DIFF Adnan R Al Elvis Work Phone: Start: 05-20-2019 Basic metabolic pane l calcium total Adnan R Al-Elvis Work Phone: Start: 05-20-2019 Blood count complete auto&auto difrntl wbc Adnan R Al-Elvis Work Phone: Start: 04-30-2019 Blood count complete auto&auto difrntl wbc Nic Garcia Work Phone: Start: 04-30-2019 Comprehensive metabo lic panel Nic Garcia Work Phone: Start: 04-23-2019 Comprehensive metabo lic panel Nic Garcia MD Work Phone: Start: 04-16-2019 Immunofixj electroph oresis other fluids Mohammad A Al-Nsour Work Phone: Start: 04-16-2019 Assay of gammaglobulin ige Mihird A Al-Nsour Work Phone: Start: 04-16-2019 Assay of nephelometr y each analyte stacy Mihird Vernon Al-Nsour Work Phone: Start: 04-16-2019 Blood count complete auto&auto difrntl wbc Mihird Vernon Al-Nsour Work Phone: Start: 04-16-2019 Comprehensive metabo lic panel Mihird A Al-Nsour Work Phone: Start: 04-06-2019 Urnls dip stick/tabl et reagent auto microscopy Levy Thomas Work Phone: Start: 04-02-2019 Blood count complete auto&auto difrntl wbc Mihird Vernon Al-Nsour Work Phone: Start: 04-02-2019 Comprehensive metabo lic panel Mihird A Al-Nsour Work Phone: Start: 03-20-2019 Assay of gammaglobulin ige Mihird Vernon Al-Nsour Work Phone: Start: 03-20-2019 Assay of nephelometr y each analyte stacy Mihird Vernon Al-Nsour Work Phone: Start: 03-20-2019 Blood count complete auto&auto difrntl wbc Mihird A Al-Nsour Work Phone: Start: 03-20-2019 Comprehensive metabo lic panel Mihird A Al-Nsour Work Phone: Start: 03-06-2019 Blood count complete auto&auto difrntl wbc Mihird A Al-Nsour Work Phone: Start: 03-06-2019 Comprehensive metabo lic panel Mihird A Al-Nsour Work Phone: Start: 02-26-2019 Blood count complete auto&auto difrntl wbc Mihird A Al-Nsour Work Phone: Start: 02-26-2019 Comprehensive metabo lic panel Nic Garcia Work Phone: Start: 02-20-2019 Assay of gammaglobulin ige Nic Garcia Work Phone: Start: 02-20-2019 Assay of nephelometr y each analyte stacy Nic Garcia Work Phone: Start: 02-20-2019 Blood count complete auto&auto difrntl wbc Nic Garcia Work Phone: Start: 02-20-2019 Comprehensive metabo lic panel Nic Garcia Work Phone: Plan of Treatment Date Care Activity Detail Author Start: 09-30-2033 Urine microalbumin profile DTaP,Tdap,Td Vaccine (3 - Td or Tdap) [facility] Start: 04-02-2027 Diabetes Screening Diabetes Screening [facility] Start: 02-19-2027 Diabetes Screening Diabetes Screening [facility] Start: 01-21-2027 Diabetes Screening Diabetes Screening [facility] Start: 12-23-2026 Diabetes Screening Diabetes Screening [facility] Start: 11-25-2026 Diabetes Screening Diabetes Screening [facility] Start: 10-29-2026 Diabetes Screening Diabetes Screening [facility] Start: 10-01-2026 Diabetes Screening Diabetes Screening [facility] Start: 09-25-2026 Diabetes Screening Diabetes Screening [facility] Start: 09-18-2026 Diabetes Screening Diabetes Screening [facility] Start: 09-05-2026 Diabetes Screening Diabetes Screening [facility] Start: 08-28-2026 Diabetes Screening Diabetes Screening [facility] Start: 08-21-2026 Diabetes Screening Diabetes Screening [facility] Start: 07-31-2026 Diabetes Screening Diabetes Screening [facility] Start: 06-12-2026 Diabetes Screening Diabetes Screening [facility] Start: 06-04-2026 Diabetes Screening Diabetes Screening [facility] Start: 05-14-2026 Diabetes Screening Diabetes Screening [facility] Start: 04-16-2026 Diabetes Screening Diabetes Screening [facility] Start: 03-19-2026 Diabetes Screening Diabetes Screening [facility] Start: 02-19-2026 DIABETES SCREEN DIABETES SCREEN [facility] Start: 12-25-2025 DIABETES SCREEN DIABETES SCREEN [facility] Start: 11-27-2025 DIABETES SCREEN DIABETES SCREEN [facility] Start: 10-30-2025 DIABETES SCREEN DIABETES SCREEN [facility] Start: 10-02-2025 DIABETES SCREEN DIABETES SCREEN [facility] Start: 09-04-2025 DIABETES SCREEN DIABETES SCREEN [facility] Start: 05-22-2025 DIABETES SCREEN DIABETES SCREEN [facility] Start: 04-24-2025 DIABETES SCREEN DIABETES SCREEN [facility] Start: 02-20-2025 DIABETES SCREEN DIABETES SCREEN [facility] Start: 01-23-2025 DIABETES SCREEN DIABETES SCREEN [facility] Start: 12-25-2024 DIABETES SCREEN DIABETES SCREEN [facility] Start: 11-28-2024 DIABETES SCREEN DIABETES SCREEN [facility] Start: 11-14-2024 DIABETES SCREEN DIABETES SCREEN [facility] Start: 10-31-2024 DIABETES SCREEN DIABETES SCREEN [facility] Start: 10-17-2024 DIABETES SCREEN DIABETES SCREEN [facility] Start: 10-03-2024 DIABETES SCREEN DIABETES SCREEN [facility] Start: 09-16-2024 Prostate specific antigen measurement Prostate Specific Antigen (PSA) Screening or Monitoring [facility] Start: 09-11-2024 DIABETES SCREEN DIABETES SCREEN [facility] Start: 09-05-2024 DIABETES SCREEN DIABETES SCREEN [facility] Start: 05-21-2024 End: 05-21-2024 ambulatory 05/21/2024 1:45 PM EST Visit (SP) Office Hematology/Oncology [address] [place] [address] Nelli Aguilar MD [address] [place] [address] 7 week lab port draw, labs 1 week prior Hematology/Oncology Comment on above: 7 week lab port draw, labs 1 week prior Start: 05-14-2024 End: 05-14-2024 ambulatory 05/14/2024 1:00 PM EST Infusion Center Hematology/Oncology [address] [place] [address] port lab Hematology/Oncology Comment on above: port lab Start: 04-02-2024 End: 04-02-2024 ambulatory Hematology/Oncology Comment on above: 6 week lab port draw Start: 04-02-2024 End: 02-19-2025 [id number] [Mass/volume] in Serum or Plasma [facility] Work Phone: Comment on above: Expected: 04/02/2024, Expires: Start: 04-02-2024 End: 02-19-2025 Calcium.ionized [Moles/volume] in Blood [facility] Comment on above: Expected: 04/02/2024, Expires: Start: 04-02-2024 End: 02-19-2025 CBC W Auto Differential panel - Blood COMPLETE BLOOD COUNT AND DIFFERENTIAL Lab Routine Multiple myeloma not having achieved remission (HCC) Stage 3a chronic kidney disease (HCC) Expected: 04/02/2024, Expires: 02/19/2025 [facility] Comment on above: Expected: 04/02/2024, Expires: Start: 04-02-2024 End: 02-19-2025 Comprehensive metabolic 2000 panel - Serum or Plasma COMPREHENSIVE METABOLIC PANEL Lab Routine Multiple myeloma not having achieved remission (HCC) Stage 3a chronic kidney disease (HCC) Expected: 04/02/2024, Expires: 02/19/2025 [facility] Comment on above: Expected: 04/02/2024, Expires: Start: 04-02-2024 End: 07-02-2024 KAPPA/IAN HERNANDEZ,SER [facility] Comment on above: Expected: 04/02/2024, Expires: Start: 04-02-2024 End: 02-19-2025 Lactate dehydrogenase [Enzymatic activity/volume] in Serum or Plasma LACTATE DEHYDROGENASE Lab Routine Multiple myeloma not having achieved remission (HCC) Stage 3a chronic kidney disease (HCC) Expected: 04/02/2024, Expires: 02/19/2025 [facility] Comment on above: Expected: 04/02/2024, Expires: Start: 04-02-2024 End: 02-19-2025 MONOCLONAL PROTEIN, SERUM (BLOOD) [facility] Comment on above: Expected: 04/02/2024, Expires: Start: 04-02-2024 End: 02-19-2025 Phosphate [Mass/volume] in Serum or Plasma PHOSPHORUS INORGANIC Lab Routine Multiple myeloma not having achieved remission (HCC) Stage 3a chronic kidney disease (HCC) Expected: 04/02/2024, Expires: 02/19/2025 [facility] Comment on above: Expected: 04/02/2024, Expires: Start: 04-02-2024 End: 02-19-2025 PROTEIN ELECTROPHORESIS SERUM W/INTERP [facility] Comment on above: Expected: 04/02/2024, Expires: Start: 04-02-2024 End: 02-19-2025 Urate [Mass/volume] in Serum or Plasma URIC ACID Lab Routine Multiple myeloma not having achieved remission (HCC) Stage 3a chronic kidney disease (HCC) Expected: 04/02/2024, Expires: 02/19/2025 [facility] Comment on above: Expected: 04/02/2024, Expires: Start: 03-29-2024 [facility] Start: 03-28-2024 Holter monitor study [facility] Start: 03-23-2024 End: 03-23-2024 Patient encounter procedure 03/23/2024 1:15 PM EDT Procedure visit [facility] [address] [place] [id number] Levy Thomas MD [address] [place] [address], [address] [place], [place] [id number] Cysto PSA prior [facility] Part [facility] Comment on above: Cysto PSA prior Start: 03-18-2024 [facility] Start: 03-17-2024 [facility] Start: 03-17-2024 Administration of prophylactic treatment [facility] Start: 03-16-2024 Hospital admission [facility] Start: 03-16-2024 Referral to clinical loan interviewer mortgage [facility] Start: 03-16-2024 [facility] Start: 03-01-2024 COVID-19 Vaccine ( season) COVID-19 Vaccine () [facility] Start: 03-01-2024 Covid-19 Vaccine (6 - 2023-24 season) Covid-19 Vaccine ( season) [facility] Start: 03-01-2024 Covid-19 Vaccine ( season) Covid-19 Vaccine () [facility] Start: 03-01-2024 Influenza vaccination [facility] Start: 02-20-2024 End: 02-20-2024 ambulatory Hematology/Oncology Comment on above: 1 monthTOC /ROBERTA pt lab port draw Start: 02-20-2024 HEMOGLOBIN/HEMATOCRIT HEMOGLOBIN/HEMATOCRIT [facility] Start: 02-20-2024 SERUM CREATININE SERUM CREATININE [facility] Start: 02-19-2024 End: 02-18-2025 [id number]-[id number] [Mass/volume] in Serum or Plasma B2 MICROGLOBULIN Lab Routine Multiple myeloma not having achieved remission (HCC) Expected: 02/19/2024, Expires: 02/18/2025 [facility] Work Phone: Comment on above: Expected: 02/19/2024, Expires: Start: 02-19-2024 End: 02-18-2025 Calcium.ionized [Moles/volume] in Blood CALCIUM, IONIZED Lab Routine Multiple myeloma not having achieved remission (HCC) Expected: 02/19/2024, Expires: 02/18/2025 [facility] Comment on above: Expected: 02/19/2024, Expires: Start: 02-19-2024 End: 02-18-2025 CBC W Auto Differential panel - Blood [facility] Work Phone: Comment on above: Expected: 02/19/2024 (Approximate), Expi res: 05/20/2024 Expected: 02/19/2024 , Expires: 02/18/2025 Start: 02-19-2024 End: 02-18-2025 Comprehensive metabolic 2000 panel - Serum or Plasma [facility] Comment on above: Expected: 02/19/2024 (Approximate), Expi res: 05/20/2024 Expected: 02/19/2024 , Expires: 02/18/2025 Start: 02-19-2024 End: 05-20-2024 KAPPA/HERNANDEZ,FREE,SER KAPPA/HERNANDEZ,FREE,SER Lab Routine Multiple myeloma not having achieved remission (HCC) Expected: 02/19/2024, Expires: 05/20/2024 [facility] Comment on above: Expected: 02/19/2024, Expires: Start: 02-19-2024 End: 02-18-2025 Lactate dehydrogenase [Enzymatic activity/volume] in Serum or Plasma LACTATE DEHYDROGENASE Lab Routine Multiple myeloma not having achieved remission (HCC) Expected: 02/19/2024, Expires: 02/18/2025 [facility] Comment on above: Expected: 02/19/2024, Expires: Start: 02-19-2024 End: 02-18-2025 MONOCLONAL PROTEIN, SERUM (BLOOD) [facility] Comment on above: Expected: 02/19/2024 (Approximate), Expi res: 05/20/2024 Expected: 02/19/2024 , Expires: 02/18/2025 Start: 02-19-2024 End: 02-18-2025 Phosphate [Mass/volume] in Serum or Plasma PHOSPHORUS INORGANIC Lab Routine Multiple myeloma not having achieved remission (HCC) Expected: 02/19/2024, Expires: 02/18/2025 [facility] Comment on above: Expected: 02/19/2024, Expires: Start: 02-19-2024 End: 02-18-2025 PROTEIN ELECTROPHORESIS SERUM W/INTERP [facility] Comment on above: Expected: 02/19/2024 (Approximate), Expi res: 05/20/2024 Expected: 02/19/2024 , Expires: 02/18/2025 Start: 02-19-2024 End: 02-18-2025 Urate [Mass/volume] in Serum or Plasma URIC ACID Lab Routine Multiple myeloma not having achieved remission (HCC) Expected: 02/19/2024, Expires: 02/18/2025 [facility] Comment on above: Expected: 02/19/2024, Expires: Start: 01-30-2024 Influenza vaccination Flu vaccine (#1) [facility] Start: 01-22-2024 End: 01-22-2024 Follow-up encounter Hematology/Oncology Comment on above: 4 week follow up port lab - oral treatme nt Start: 01-21-2024 End: 04-21-2024 CBC W Auto Differential panel - Blood COMPLETE BLOOD COUNT AND DIFFERENTIAL Lab Routine Multiple myeloma not having achieved remission (HCC) Expected: 01/21/2024 (Approximate), Expires: 04/21/2024 [facility] Work Phone: Comment on above: Expected: 01/21/2024 (Approximate), Expi res: 04/21/2024 Start: 01-21-2024 End: 04-21-2024 Comprehensive metabolic 2000 panel - Serum or Plasma COMPREHENSIVE METABOLIC PANEL Lab Routine Multiple myeloma not having achieved remission (HCC) Expected: 01/21/2024 (Approximate), Expires: 04/21/2024 [facility] Comment on above: Expected: 01/21/2024 (Approximate), Expi res: 04/21/2024 Start: 01-21-2024 End: 04-21-2024 MONOCLONAL PROTEIN, SERUM (BLOOD) MONOCLONAL PROTEIN, SERUM (BLOOD) Lab Routine Multiple myeloma not having achieved remission (HCC) Expected: 01/21/2024 (Approximate), Expires: 04/21/2024 [facility] Comment on above: Expected: 01/21/2024 (Approximate), Expi res: 04/21/2024 Start: 01-21-2024 End: 04-21-2024 PROTEIN ELECTROPHORESIS SERUM W/INTERP PROTEIN ELECTROPHORESIS SERUM W/INTERP Lab Routine Multiple myeloma not having achieved remission (HCC) Expected: 01/21/2024 (Approximate), Expires: 04/21/2024 [facility] Comment on above: Expected: 01/21/2024 (Approximate), Expi res: 04/21/2024 Start: 12-26-2023 HEMOGLOBIN/HEMATOCRIT HEMOGLOBIN/HEMATOCRIT [facility] Start: 12-26-2023 SERUM CREATININE SERUM CREATININE [facility] Start: 12-24-2023 End: 03-24-2024 CBC W Auto Differential panel - Blood [facility] Comment on above: Expected: 12/24/2023 (Approximate), Expi res: 03/24/2024 Start: 12-24-2023 End: 03-24-2024 Comprehensive metabolic 2000 panel - Serum or Plasma COMPREHENSIVE METABOLIC PANEL Lab Routine Multiple myeloma not having achieved remission (HCC) Stage 3a chronic kidney disease (HCC) Expected: 12/24/2023 (Approximate), Expires: 03/24/2024 [facility] Work Phone: Comment on above: Expected: 12/24/2023 (Approximate), Expi res: 03/24/2024 Start: 12-24-2023 End: 03-24-2024 MONOCLONAL PROTEIN, SERUM (BLOOD) [facility] Comment on above: Expected: 12/24/2023 (Approximate), Expi res: 03/24/2024 Start: 12-24-2023 End: 03-24-2024 PROTEIN ELECTROPHORESIS SERUM W/INTERP [facility] Comment on above: Expected: 12/24/2023 (Approximate), Expi res: 03/24/2024 Start: 12-24-2023 End: 12-24-2023 Follow-up encounter Hematology/Oncology Comment on above: 4 week follow up port lab - oral treatme nt Start: 11-28-2023 HEMOGLOBIN/HEMATOCRIT HEMOGLOBIN/HEMATOCRIT [facility] Start: 11-28-2023 SERUM CREATININE SERUM CREATININE [facility] Start: 11-27-2023 End: 02-26-2024 CBC W Auto Differential panel - Blood COMPLETE BLOOD COUNT AND DIFFERENTIAL Lab Routine Multiple myeloma not having achieved remission (HCC) Expected: 11/27/2023 (Approximate), Expires: 02/26/2024 [facility] Work Phone: Comment on above: Expected: 11/27/2023 (Approximate), Expi res: 02/26/2024 Start: 11-27-2023 End: 02-26-2024 Comprehensive metabolic 2000 panel - Serum or Plasma COMPREHENSIVE METABOLIC PANEL Lab Routine Multiple myeloma not having achieved remission (HCC) Expected: 11/27/2023 (Approximate), Expires: 02/26/2024 [facility] Comment on above: Expected: 11/27/2023 (Approximate), Expi res: 02/26/2024 Start: 11-27-2023 End: 02-26-2024 MONOCLONAL PROTEIN, SERUM (BLOOD) MONOCLONAL PROTEIN, SERUM (BLOOD) Lab Routine Multiple myeloma not having achieved remission (HCC) Expected: 11/27/2023 (Approximate), Expires: 02/26/2024 [facility] Comment on above: Expected: 11/27/2023 (Approximate), Expi res: 02/26/2024 Start: 11-27-2023 End: 02-26-2024 PROTEIN ELECTROPHORESIS SERUM W/INTERP PROTEIN ELECTROPHORESIS SERUM W/INTERP Lab Routine Multiple myeloma not having achieved remission (HCC) Expected: 11/27/2023 (Approximate), Expires: 02/26/2024 [facility] Comment on above: Expected: 11/27/2023 (Approximate), Expi res: 02/26/2024 Start: 11-26-2023 End: 11-26-2023 Follow-up encounter Hematology/Oncology Comment on above: 4 week follow up port lab Start: 10-31-2023 HEMOGLOBIN/HEMATOCRIT HEMOGLOBIN/HEMATOCRIT [facility] Start: 10-31-2023 SERUM CREATININE SERUM CREATININE [facility] Start: 10-30-2023 End: 01-29-2024 CBC W Auto Differential panel - Blood CBC + DIFF Lab Routine Multiple myeloma not having achieved remission (HCC) Expected: 10/30/2023 (Approximate), Expires: 01/29/2024 [facility] Work Phone: Comment on above: Expected: 10/30/2023 (Approximate), Expi res: 01/29/2024 Start: 10-30-2023 End: 01-29-2024 Comprehensive metabolic 2000 panel - Serum or Plasma COMP METABOLIC PANEL Lab Routine Multiple myeloma not having achieved remission (HCC) Expected: 10/30/2023 (Approximate), Expires: 01/29/2024 [facility] Work Phone: Comment on above: Expected: 10/30/2023 (Approximate), Expi res: 01/29/2024 Start: 10-30-2023 End: 01-29-2024 MONOCLONAL PROTEIN, SERUM (BLOOD) [facility] Work Phone: Comment on above: Expected: 10/30/2023 (Approximate), Expi res: 01/29/2024 Start: 10-30-2023 End: 01-29-2024 PROTEIN ELECTROPHORESIS SERUM W/INTERP [facility] Work Phone: Comment on above: Expected: 10/30/2023 (Approximate), Expi res: 01/29/2024 Start: 10-17-2023 End: 10-17-2023 Patient encounter procedure 10/17/2023 10:00 AM EDT Office Visit [facility] Part [address] [place] [phone] Nalini Joshua MD [address] [place] [address] [address] [place] [id number] 6 month follow up [facility] Comment on above: 6 month follow up Start: 10-06-2023 DTaP/Tdap/Td vaccine (2 - Tdap) DTaP/Tdap/Td vaccine (2 - Tdap) [facility] BRITTON [facility] Start: 10-06-2023 Urine microalbumin profile [facility] Start: 09-26-2023 End: 12-26-2023 CBC W Auto Differential panel - Blood CBC + DIFF Lab Routine Multiple myeloma not having achieved remission (HCC) Stage 3a chronic kidney disease (HCC) Expected: 09/26/2023 (Approximate), Expires: 12/26/2023 [facility] Work Phone: Comment on above: Expected: 09/26/2023 (Approximate), Expi res: 12/26/2023 Start: 09-26-2023 End: 12-26-2023 Comprehensive metabolic 2000 panel - Serum or Plasma COMP METABOLIC PANEL Lab Routine Multiple myeloma not having achieved remission (HCC) Stage 3a chronic kidney disease (HCC) Expected: 09/26/2023 (Approximate), Expires: 12/26/2023 [facility] Work Phone: Comment on above: Expected: 09/26/2023 (Approximate), Expi res: 12/26/2023 Start: 09-24-2023 EKG 12 channel panel [facility] Start: 09-20-2023 End: 12-20-2023 IMMUNOGLOBULINS NIDHI IMMUNOGLOBULINS NIDHI Lab Routine Multiple myeloma not having achieved remission (HCC) Stage 3a chronic kidney disease (HCC) Leg swelling Neuropathy Expected: 09/20/2023 (Approximate), Expires: 12/20/2023 [facility] Work Phone: Comment on above: Expected: 09/20/2023 (Approximate), Expi res: 12/20/2023 Start: 09-20-2023 End: 12-20-2023 KAPPA/HERNANDEZ,FREE,SER KAPPA/HERNANDEZ,FREE,SER Lab Routine Multiple myeloma not having achieved remission (HCC) Stage 3a chronic kidney disease (HCC) Leg swelling Neuropathy Expected: 09/20/2023 (Approximate), Expires: 12/20/2023 [facility] Work Phone: Comment on above: Expected: 09/20/2023 (Approximate), Expi res: 12/20/2023 Start: 09-20-2023 End: 12-20-2023 MONOCLONAL PROTEIN, SERUM (BLOOD) MONOCLONAL PROTEIN, SERUM (BLOOD) Lab Routine Multiple myeloma not having achieved remission (HCC) Stage 3a chronic kidney disease (HCC) Leg swelling Neuropathy Expected: 09/20/2023 (Approximate), Expires: 12/20/2023 [facility] Work Phone: Comment on above: Expected: 09/20/2023 (Approximate), Expi res: 12/20/2023 Start: 09-20-2023 End: 12-20-2023 PROTEIN ELECTROPHORESIS SERUM W/INTERP PROTEIN ELECTROPHORESIS SERUM W/INTERP Lab Routine Multiple myeloma not having achieved remission (HCC) Stage 3a chronic kidney disease (HCC) Leg swelling Neuropathy Expected: 09/20/2023 (Approximate), Expires: 12/20/2023 [facility] Work Phone: Comment on above: Expected: 09/20/2023 (Approximate), Expi res: 12/20/2023 Start: 09-18-2023 Prostate specific antigen measurement Prostate Specific Antigen (PSA) Screening or Monitoring [facility] Start: 08-28-2023 End: 11-27-2023 Basic metabolic 2000 panel - Serum or Plasma BASIC METABOLIC PNL Lab Routine Multiple myeloma not having achieved remission (HCC) Expected: 08/28/2023 (Approximate), Expires: 11/27/2023 [facility] Work Phone: Comment on above: Expected: 08/28/2023 (Approximate), Expi res: 11/27/2023 Start: 08-28-2023 End: 11-27-2023 CBC W Auto Differential panel - Blood [facility] Work Phone: Comment on above: Expected: 08/28/2023 (Approximate), Expi res: 11/27/2023 Expected: 08/28/2023 , Expires: 11/27/2023 Start: 08-28-2023 End: 11-27-2023 Comprehensive metabolic 2000 panel - Serum or Plasma COMP METABOLIC PANEL Lab Routine Multiple myeloma not having achieved remission (HCC) Stage 3a chronic kidney disease (HCC) Expected: 08/28/2023, Expires: 11/27/2023 [facility] Work Phone: Comment on above: Expected: 08/28/2023, Expires: Start: 07-09-2023 [facility] Start: 07-09-2023 [facility] Start: 07-01-2023 Advance Directive Discussion Advance Directive Discussion [facility] Start: 07-01-2023 Behavioral Health Screening Behavioral Health Screening [facility] Start: 07-01-2023 Depression Assessment Depression Assessment [facility] Start: 06-19-2023 End: 09-18-2023 CBC W Auto Differential panel - Blood CBC + DIFF Lab Routine Multiple myeloma not having achieved remission (HCC) Expected: 06/19/2023 (Approximate), Expires: 09/18/2023 [facility] Work Phone: Comment on above: Expected: 06/19/2023 (Approximate), Expi res: 09/18/2023 Start: 06-19-2023 End: 09-18-2023 Comprehensive metabolic 2000 panel - Serum or Plasma COMP METABOLIC PANEL Lab Routine Multiple myeloma not having achieved remission (HCC) Expected: 06/19/2023 (Approximate), Expires: 09/18/2023 [facility] Work Phone: Comment on above: Expected: 06/19/2023 (Approximate), Expi res: 09/18/2023 Start: 05-31-2023 COVID-19 Vaccine ( season) [facility]19 [facility]ine () [facility] Start: 05-31-2023 Covid-19 Vaccine ( season) Covid-19 Vaccine () [facility] Start: 05-27-2023 Annual Wellness Visit (Medicare) Annual Wellness Visit (Medicare) [facility] Start: 05-17-2023 End: 05-15-2024 NM PET/CT WHOLE BODY SUBSEQUENT NM PET/CT WHOLE BODY SUBSEQUENT Radiology Routine Multiple myeloma not having achieved remission (HCC) Expected: 05/17/2023 (Approximate), Expires: 05/15/2024 [facility] Work Phone: Comment on above: Expected: 05/17/2023 (Approximate), Expi res: 05/15/2024 Start: 05-15-2023 Prostate specific antigen measurement Prostate Specific Antigen (PSA) Screening or Monitoring [facility] Start: 05-14-2023 End: 08-13-2023 CBC W Auto Differential panel - Blood CBC + DIFF Lab Routine Multiple myeloma not having achieved remission (HCC) Expected: 05/14/2023 (Approximate), Expires: 08/13/2023 [facility] Work Phone: Comment on above: Expected: 05/14/2023 (Approximate), Expi res: 08/13/2023 Start: 05-14-2023 End: 08-13-2023 Comprehensive metabolic 2000 panel - Serum or Plasma COMP METABOLIC PANEL Lab Routine Multiple myeloma not having achieved remission (HCC) Expected: 05/14/2023 (Approximate), Expires: 08/13/2023 [facility] Work Phone: Comment on above: Expected: 05/14/2023 (Approximate), Expi res: 08/13/2023 Start: 05-14-2023 End: 08-13-2023 MONOCLONAL PROTEIN, SERUM (BLOOD) MONOCLONAL PROTEIN, SERUM (BLOOD) Lab Routine Multiple myeloma not having achieved remission (HCC) Expected: 05/14/2023 (Approximate), Expires: 08/13/2023 [facility] Work Phone: Comment on above: Expected: 05/14/2023 (Approximate), Expi res: 08/13/2023 Start: 05-14-2023 End: 08-13-2023 PROTEIN ELECTROPHORESIS SERUM W/INTERP PROTEIN ELECTROPHORESIS SERUM W/INTERP Lab Routine Multiple myeloma not having achieved remission (HCC) Expected: 05/14/2023 (Approximate), Expires: 08/13/2023 [facility] Work Phone: Comment on above: Expected: 05/14/2023 (Approximate), Expi res: 08/13/2023 Start: 04-16-2023 End: 06-16-2023 CBC W Auto Differential panel - Blood CBC + DIFF Lab Routine Multiple myeloma not having achieved remission (HCC) Stage 3a chronic kidney disease (HCC) Expected: 04/16/2023 (Approximate), Expires: 06/16/2023 [facility] Work Phone: Comment on above: Expected: 04/16/2023 (Approximate), Expi res: 06/16/2023 Start: 04-16-2023 End: 06-16-2023 Chronic hepatitis differentiation between hepatitis B and C virus panel - Serum or Plasma [facility] Work Phone: Comment on above: Expected: 04/16/2023, Expires: Start: 04-16-2023 End: 06-16-2023 Comprehensive metabolic 2000 panel - Serum or Plasma COMP METABOLIC PANEL Lab Routine Multiple myeloma not having achieved remission (HCC) Stage 3a chronic kidney disease (HCC) Expected: 04/16/2023 (Approximate), Expires: 06/16/2023 [facility] Work Phone: Comment on above: Expected: 04/16/2023 (Approximate), Expi res: 06/16/2023 Start: 04-16-2023 End: 06-16-2023 IMMUNOGLOBULINS NIDHI IMMUNOGLOBULINS NIDHI Lab Routine Multiple myeloma not having achieved remission (HCC) Stage 3a chronic kidney disease (HCC) Expected: 04/16/2023 (Approximate), Expires: 06/16/2023 [facility] Work Phone: Comment on above: Expected: 04/16/2023 (Approximate), Expi res: 06/16/2023 Start: 04-16-2023 End: 06-16-2023 KAPPA/HERNANDEZ,FREE,SER KAPPA/HERNANDEZ,FREE,SER Lab Routine Multiple myeloma not having achieved remission (HCC) Stage 3a chronic kidney disease (HCC) Expected: 04/16/2023 (Approximate), Expires: 06/16/2023 [facility] Work Phone: Comment on above: Expected: 04/16/2023 (Approximate), Expi res: 06/16/2023 Start: 04-16-2023 End: 06-16-2023 MONOCLONAL PROTEIN, SERUM (BLOOD) MONOCLONAL PROTEIN, SERUM (BLOOD) Lab Routine Multiple myeloma not having achieved remission (HCC) Stage 3a chronic kidney disease (HCC) Expected: 04/16/2023 (Approximate), Expires: 06/16/2023 [facility] Work Phone: Comment on above: Expected: 04/16/2023 (Approximate), Expi res: 06/16/2023 Start: 04-16-2023 End: 06-16-2023 PROTEIN ELECTROPHORESIS SERUM W/INTERP PROTEIN ELECTROPHORESIS SERUM W/INTERP Lab Routine Multiple myeloma not having achieved remission (HCC) Stage 3a chronic kidney disease (HCC) Expected: 04/16/2023 (Approximate), Expires: 06/16/2023 [facility] Work Phone: Comment on above: Expected: 04/16/2023 (Approximate), Expi res: 06/16/2023 Start: 03-19-2023 End: 05-19-2023 CBC W Auto Differential panel - Blood CBC + DIFF Lab Routine Multiple myeloma not having achieved remission (HCC) Expected: 03/19/2023 (Approximate), Expires: 05/19/2023 [facility] Work Phone: Comment on above: Expected: 03/19/2023 (Approximate), Expi res: 05/19/2023 Start: 03-19-2023 End: 05-19-2023 Comprehensive metabolic 2000 panel - Serum or Plasma COMP METABOLIC PANEL Lab Routine Multiple myeloma not having achieved remission (HCC) Expected: 03/19/2023 (Approximate), Expires: 05/19/2023 [facility] Work Phone: Comment on above: Expected: 03/19/2023 (Approximate), Expi res: 05/19/2023 Start: 03-19-2023 End: 05-19-2023 MONOCLONAL PROTEIN, SERUM (BLOOD) MONOCLONAL PROTEIN, SERUM (BLOOD) Lab Routine Multiple myeloma not having achieved remission (HCC) Expected: 03/19/2023 (Approximate), Expires: 05/19/2023 [facility] Work Phone: Comment on above: Expected: 03/19/2023 (Approximate), Expi res: 05/19/2023 Start: 03-19-2023 End: 05-19-2023 PROTEIN ELECTROPHORESIS SERUM W/INTERP PROTEIN ELECTROPHORESIS SERUM W/INTERP Lab Routine Multiple myeloma not having achieved remission (HCC) Expected: 03/19/2023 (Approximate), Expires: 05/19/2023 [facility] Work Phone: Comment on above: Expected: 03/19/2023 (Approximate), Expi res: 05/19/2023 Start: 03-01-2023 Covid-19 Vaccine ( season) Covid-19 Vaccine ( season) [facility] Start: 03-01-2023 Influenza vaccination [facility] Start: 01-05-2023 Prostate specific antigen measurement Prostate Specific Antigen (PSA) Screening or Monitoring [facility] Start: 12-27-2022 End: 02-26-2023 CBC W Auto Differential panel - Blood CBC + DIFF Lab Routine Multiple myeloma not having achieved remission (HCC) Stage 3a chronic kidney disease (HCC) Expected: 12/27/2022, Expires: 02/26/2023 [facility] Work Phone: Comment on above: Expected: 12/27/2022, Expires: Start: 12-27-2022 End: 02-26-2023 Comprehensive metabolic 2000 panel - Serum or Plasma COMP METABOLIC PANEL Lab Routine Multiple myeloma not having achieved remission (HCC) Stage 3a chronic kidney disease (HCC) Expected: 12/27/2022, Expires: 02/26/2023 [facility] Work Phone: Comment on above: Expected: 12/27/2022, Expires: Start: 12-27-2022 End: 02-26-2023 MONOCLONAL PROTEIN, SERUM (BLOOD) MONOCLONAL PROTEIN, SERUM (BLOOD) Lab Routine Multiple myeloma not having achieved remission (HCC) Stage 3a chronic kidney disease (HCC) Expected: 12/27/2022, Expires: 02/26/2023 [facility] Work Phone: Comment on above: Expected: 12/27/2022, Expires: Start: 12-27-2022 End: 02-26-2023 PROT ELECT SERUM WITH ANI AND INTERP PROT ELECT SERUM WITH ANI AND INTERP Lab Routine Multiple myeloma not having achieved remission (HCC) Stage 3a chronic kidney disease (HCC) Expected: 12/27/2022, Expires: 02/26/2023 [facility] Work Phone: Comment on above: Expected: 12/27/2022, Expires: Start: 12-25-2022 End: 02-24-2023 CBC W Auto Differential panel - Blood CBC + DIFF Lab Routine Multiple myeloma not having achieved remission (HCC) Expected: 12/25/2022 (Approximate), Expires: 02/24/2023 [facility] Work Phone: Comment on above: Expected: 12/25/2022 (Approximate), Expi res: 02/24/2023 Start: 12-25-2022 End: 02-24-2023 Comprehensive metabolic 2000 panel - Serum or Plasma COMP METABOLIC PANEL Lab Routine Multiple myeloma not having achieved remission (HCC) Expected: 12/25/2022 (Approximate), Expires: 02/24/2023 [facility] Work Phone: Comment on above: Expected: 12/25/2022 (Approximate), Expi res: 02/24/2023 Start: 12-25-2022 End: 02-24-2023 MONOCLONAL PROTEIN, SERUM (BLOOD) MONOCLONAL PROTEIN, SERUM (BLOOD) Lab Routine Multiple myeloma not having achieved remission (HCC) Expected: 12/25/2022 (Approximate), Expires: 02/24/2023 [facility] Work Phone: Comment on above: Expected: 12/25/2022 (Approximate), Expi res: 02/24/2023 Start: 12-25-2022 End: 02-24-2023 PROTEIN ELECTROPHORESIS SERUM W/INTERP PROTEIN ELECTROPHORESIS SERUM W/INTERP Lab Routine Multiple myeloma not having achieved remission (HCC) Expected: 12/25/2022 (Approximate), Expires: 02/24/2023 [facility] Work Phone: Comment on above: Expected: 12/25/2022 (Approximate), Expi res: 02/24/2023 Start: 12-17-2022 End: 12-17-2022 Patient encounter procedure 12/17/2022 Office Visit Neurology Nalini Joshua MD [address] [place] [phone] [facility] Start: 12-10-2022 End: 12-10-2022 Patient encounter procedure 12/10/2022 Procedure visit Urology [facility] Start: 12-01-2022 Prostate specific antigen measurement Prostate Specific Antigen (PSA) Screening or Monitoring [facility] Start: 11-12-2022 End: 11-12-2022 Patient encounter procedure 11/12/2022 Office Visit Neurology Nalini Joshua MD [address] [place] [phone] [facility] Start: 10-30-2022 End: 12-30-2022 CBC W Auto Differential panel - Blood CBC + DIFF Lab Routine Multiple myeloma not having achieved remission (HCC) Expected: 10/30/2022 (Approximate), Expires: 12/30/2022 [facility] Work Phone: Comment on above: Expected: 10/30/2022 (Approximate), Expi res: 12/30/2022 Start: 10-30-2022 End: 12-30-2022 Comprehensive metabolic 2000 panel - Serum or Plasma COMP METABOLIC PANEL Lab Routine Multiple myeloma not having achieved remission (HCC) Expected: 10/30/2022 (Approximate), Expires: 12/30/2022 [facility] Work Phone: Comment on above: Expected: 10/30/2022 (Approximate), Expi res: 12/30/2022 Start: 10-30-2022 End: 12-30-2022 IMMUNOGLOBULINS NIDHI IMMUNOGLOBULINS NIDHI Lab Routine Multiple myeloma not having achieved remission (HCC) Expected: 10/30/2022 (Approximate), Expires: 12/30/2022 [facility] Work Phone: Comment on above: Expected: 10/30/2022 (Approximate), Expi res: 12/30/2022 Start: 10-30-2022 End: 12-30-2022 KAPPA/HERNANDEZ,FREE,SER KAPPA/HERNANDEZ,FREE,SER Lab Routine Multiple myeloma not having achieved remission (HCC) Expected: 10/30/2022 (Approximate), Expires: 12/30/2022 [facility] Work Phone: Comment on above: Expected: 10/30/2022 (Approximate), Expi res: 12/30/2022 Start: 10-30-2022 End: 12-30-2022 MONOCLONAL PROTEIN, SERUM (BLOOD) MONOCLONAL PROTEIN, SERUM (BLOOD) Lab Routine Multiple myeloma not having achieved remission (HCC) Expected: 10/30/2022 (Approximate), Expires: 12/30/2022 [facility] Work Phone: Comment on above: Expected: 10/30/2022 (Approximate), Expi res: 12/30/2022 Start: 10-30-2022 End: 12-30-2022 PROTEIN ELECTROPHORESIS SERUM W/INTERP PROTEIN ELECTROPHORESIS SERUM W/INTERP Lab Routine Multiple myeloma not having achieved remission (HCC) Expected: 10/30/2022 (Approximate), Expires: 12/30/2022 [facility] Work Phone: Comment on above: Expected: 10/30/2022 (Approximate), Expi res: 12/30/2022 Start: 10-02-2022 End: 12-02-2022 CBC W Auto Differential panel - Blood CBC + DIFF Lab Routine Multiple myeloma not having achieved remission (HCC) Expected: 10/02/2022 (Approximate), Expires: 12/02/2022 [facility] Work Phone: Comment on above: Expected: 10/02/2022 (Approximate), Expi res: 12/02/2022 Start: 10-02-2022 End: 12-02-2022 Chronic hepatitis differentiation between hepatitis B and C virus panel - Serum or Plasma [facility] Work Phone: Comment on above: Expected: 10/02/2022, Expires: Start: 10-02-2022 End: 12-02-2022 Comprehensive metabolic 2000 panel - Serum or Plasma COMP METABOLIC PANEL Lab Routine Multiple myeloma not having achieved remission (HCC) Expected: 10/02/2022 (Approximate), Expires: 12/02/2022 [facility] Work Phone: Comment on above: Expected: 10/02/2022 (Approximate), Expi res: 12/02/2022 Start: 10-02-2022 End: 12-02-2022 MONOCLONAL PROTEIN, SERUM (BLOOD) MONOCLONAL PROTEIN, SERUM (BLOOD) Lab Routine Multiple myeloma not having achieved remission (HCC) Expected: 10/02/2022 (Approximate), Expires: 12/02/2022 [facility] Work Phone: Comment on above: Expected: 10/02/2022 (Approximate), Expi res: 12/02/2022 Start: 10-02-2022 End: 12-02-2022 PROTEIN ELECTROPHORESIS SERUM W/INTERP PROTEIN ELECTROPHORESIS SERUM W/INTERP Lab Routine Multiple myeloma not having achieved remission (HCC) Expected: 10/02/2022 (Approximate), Expires: 12/02/2022 [facility] Work Phone: Comment on above: Expected: 10/02/2022 (Approximate), Expi res: 12/02/2022 Start: 09-24-2022 End: 09-24-2022 Patient encounter procedure 09/24/2022 Office Visit Urology [facility] Start: 07-01-2022 ADVANCE DIRECTIVE DISCUSSION ADVANCE DIRECTIVE DISCUSSION [facility] Start: 07-01-2022 DEPRESSION ASSESSMENT DEPRESSION ASSESSMENT [facility] Start: 05-23-2022 End: 05-23-2022 Patient encounter procedure 05/23/2022 Procedure visit Urology [facility] Start: 05-17-2022 End: 07-17-2022 MONOCLONAL PROTEIN, SERUM (BLOOD) MONOCLONAL PROTEIN, SERUM (BLOOD) Lab Routine Multiple myeloma not having achieved remission (HCC) Expected: 05/17/2022, Expires: 07/17/2022 [facility] Work Phone: Comment on above: Expected: 05/17/2022, Expires: 3 Start: 05-17-2022 End: 07-17-2022 PROTEIN ELECTROPHORESIS SERUM W/INTERP PROTEIN ELECTROPHORESIS SERUM W/INTERP Lab Routine Multiple myeloma not having achieved remission (HCC) Expected: 05/17/2022, Expires: 07/17/2022 [facility] Work Phone: Comment on above: Expected: 05/17/2022, Expires: 3 Start: 05-14-2022 End: 05-14-2022 Patient encounter procedure [facility] Start: 04-23-2022 End: 04-23-2022 Patient encounter procedure 04/23/2022 Procedure visit Urology Levy Thomas MD [address] [place] [address], [address] [place] [address] [facility] Start: 03-20-2022 End: 05-20-2022 CBC W Auto Differential panel - Blood CBC + DIFF Lab Routine Multiple myeloma not having achieved remission (HCC) Expected: 03/20/2022 (Approximate), Expires: 05/20/2022 [facility] Work Phone: Comment on above: Expected: 03/20/2022 (Approximate), Expi res: 05/20/2022 Start: 03-20-2022 End: 05-20-2022 Comprehensive metabolic 2000 panel - Serum or Plasma COMP METABOLIC PANEL Lab Routine Multiple myeloma not having achieved remission (HCC) Expected: 03/20/2022 (Approximate), Expires: 05/20/2022 [facility] Work Phone: Comment on above: Expected: 03/20/2022 (Approximate), Expi res: 05/20/2022 Start: 03-20-2022 End: 02-20-2023 Ferritin [Mass/volume] in Serum or Plasma FERRITIN BLD Lab Routine Multiple myeloma not having achieved remission (HCC) Expected: 03/20/2022 (Approximate), Expires: 02/20/2023 [facility] Work Phone: Comment on above: Expected: 03/20/2022 (Approximate), Expi res: 02/20/2023 Start: 03-20-2022 End: 02-20-2023 Iron and Iron binding capacity panel - Serum or Plasma IRON + TIBC Lab Routine Multiple myeloma not having achieved remission (HCC) Expected: 03/20/2022 (Approximate), Expires: 02/20/2023 [facility] Work Phone: Comment on above: Expected: 03/20/2022 (Approximate), Expi res: 02/20/2023 Start: 03-20-2022 End: 05-20-2022 MONOCLONAL PROTEIN, SERUM (BLOOD) MONOCLONAL PROTEIN, SERUM (BLOOD) Lab Routine Multiple myeloma not having achieved remission (HCC) Expected: 03/20/2022 (Approximate), Expires: 05/20/2022 [facility] Work Phone: Comment on above: Expected: 03/20/2022 (Approximate), Expi res: 05/20/2022 Start: 03-20-2022 End: 05-20-2022 PROTEIN ELECTROPHORESIS SERUM W/INTERP PROTEIN ELECTROPHORESIS SERUM W/INTERP Lab Routine Multiple myeloma not having achieved remission (HCC) Expected: 03/20/2022 (Approximate), Expires: 05/20/2022 [facility] Work Phone: Comment on above: Expected: 03/20/2022 (Approximate), Expi res: 05/20/2022 Start: 03-20-2022 End: 05-20-2022 RETIC COUNT RETIC COUNT Lab Routine Multiple myeloma not having achieved remission (HCC) Expected: 03/20/2022 (Approximate), Expires: 05/20/2022 [facility] Work Phone: Comment on above: Expected: 03/20/2022 (Approximate), Expi res: 05/20/2022 Start: 03-20-2022 End: 03-20-2022 Patient encounter procedure 03/20/2022 Appointment IP Unit [facility] Start: 03-03-2022 Prostate specific antigen measurement [facility] Start: 03-01-[address] [facility] Start: 02-23-2022 End: 04-25-2022 CBC W Auto Differential panel - Blood CBC + DIFF Lab Routine Multiple myeloma not having achieved remission (HCC) Expected: 02/23/2022 (Approximate), Expires: 04/25/2022 [facility] Work Phone: Comment on above: Expected: 02/23/2022 (Approximate), Expi res: 04/25/2022 Start: 02-23-2022 End: 04-25-2022 Comprehensive metabolic 2000 panel - Serum or Plasma COMP METABOLIC PANEL Lab Routine Multiple myeloma not having achieved remission (HCC) Expected: 02/23/2022 (Approximate), Expires: 04/25/2022 [facility] Work Phone: Comment on above: Expected: 02/23/2022 (Approximate), Expi res: 04/25/2022 Start: 02-23-2022 End: 04-25-2022 IMMUNOFIXATION SCREEN, SERUM IMMUNOFIXATION SCREEN, SERUM Lab Routine Multiple myeloma not having achieved remission (HCC) Expected: 02/23/2022 (Approximate), Expires: 04/25/2022 [facility] Work Phone: Comment on above: Expected: 02/23/2022 (Approximate), Expi res: 04/25/2022 Start: 02-23-2022 End: 04-25-2022 IMMUNOGLOBULINS NIDHI IMMUNOGLOBULINS NIDHI Lab Routine Multiple myeloma not having achieved remission (HCC) Expected: 02/23/2022 (Approximate), Expires: 04/25/2022 [facility] Work Phone: Comment on above: Expected: 02/23/2022 (Approximate), Expi res: 04/25/2022 Start: 02-23-2022 End: 04-25-2022 KAPPA/HERNANDEZ,FREE,SER KAPPA/HERNANDEZ,FREE,SER Lab Routine Multiple myeloma not having achieved remission (HCC) Expected: 02/23/2022 (Approximate), Expires: 04/25/2022 [facility] Work Phone: Comment on above: Expected: 02/23/2022 (Approximate), Expi res: 04/25/2022 Start: 02-23-2022 End: 04-25-2022 MONOCLONAL PROTEIN, SERUM (BLOOD) MONOCLONAL PROTEIN, SERUM (BLOOD) Lab Routine Multiple myeloma not having achieved remission (HCC) Expected: 02/23/2022 (Approximate), Expires: 04/25/2022 [facility] Work Phone: Comment on above: Expected: 02/23/2022 (Approximate), Expi res: 04/25/2022 Start: 02-23-2022 End: 04-25-2022 PROTEIN ELECTROPHORESIS SERUM W/INTERP PROTEIN ELECTROPHORESIS SERUM W/INTERP Lab Routine Multiple myeloma not having achieved remission (HCC) Expected: 02/23/2022 (Approximate), Expires: 04/25/2022 [facility] Work Phone: Comment on above: Expected: 02/23/2022 (Approximate), Expi res: 04/25/2022 Start: 02-08-2022 COVID-19 VACCINE (5 - Booster for Moderna series) COVID-19 VACCINE (5 - Booster for Moderna series) [facility] Start: 02-04-2022 End: 01-28-2023 CBC W Auto Differential panel - Blood CBC with Auto Differential Lab Routine Bladder tumor Gross hematuria Expected: 02/04/2022, Expires: 01/28/2023 [facility] Work Phone: Comment on above: Expected: 02/04/2022, Expires: 3 Start: 01-29-2022 Influenza vaccination Flu vaccine (#1) [facility] Start: 01-28-2022 End: 01-28-2023 Basic metabolic 2000 panel - Serum or Plasma Basic Metabolic Panel Lab Routine S/P angioplasty with stent Gross hematuria Expected: 01/28/2022, Expires: 01/28/[address] [facility] Work Phone: Comment on above: Expected: 01/28/2022, Expires: 3 Start: 01-23-2022 End: 03-25-2022 Chronic hepatitis differentiation between hepatitis B and C virus panel - Serum or Plasma HEP REMOTE PANEL BL Lab Routine Multiple myeloma, remission status unspecified (HCC) Expected: 01/23/2022, Expires: 03/25/2022 [facility] Work Phone: Comment on above: Expected: 01/23/2022, Expires: 2 Start: 01-10-2022 End: 01-10-2022 Admission to same day surgery center 01/10/2022 Surgery IP Unit Levy Thomas MD [address] [place] [address], [address] [place] [address] CYSTOSCOPY TRANSURETHRAL RESECTION BLADDER [facility] Comment on above: CYSTOSCOPY TRANSURETHRAL RESECTION BLADD ER Start: 01-10-2022 End: 01-10-2022 Cystourethroscopy w/dest &/rmvl med bladder carine CYSTOSCOPY TRANSURETHRAL RESECTION BLADDER Bladder tumor 01/10/2022 7:30 AM EDT [facility] Start: 01-10-2022 Subsequent hospital visit by physician 01/10/2022 Hospital Encounter IP Unit Levy Thomas MD [address] [place] [address], [address] [place] [address] [facility] Start: 12-26-2021 End: 2022 CBC W Auto Differential panel - Blood [facility] Work Phone: Comment on above: Expected: 12/26/2021 (Approximate), Expi res: 2022 Expected: 12/26/2021 , Expires: 2022 Start: 12-26-2021 End: 2022 Comprehensive metabolic 2000 panel - Serum or Plasma [facility] Work Phone: Comment on above: Expected: 12/26/2021 (Approximate), Expi res: 2022 Expected: 12/26/2021 , Expires: 2022 Start: 12-26-2021 End: 2022 MONOCLONAL PROTEIN, SERUM (BLOOD) MONOCLONAL PROTEIN, SERUM (BLOOD) Lab Routine Multiple myeloma, remission status unspecified (HCC) Expected: 12/26/2021 (Approximate), Expires: 2022 [facility] Work Phone: Comment on above: Expected: 12/26/2021 (Approximate), Expi res: 2022 Start: 12-26-2021 End: 2022 PROTEIN ELECTROPHORESIS SERUM W/INTERP PROTEIN ELECTROPHORESIS SERUM W/INTERP Lab Routine Multiple myeloma, remission status unspecified (HCC) Expected: 12/26/2021 (Approximate), Expires: 2022 [facility] Work Phone: Comment on above: Expected: 12/26/2021 (Approximate), Expi res: 2022 Start: 12-12-2021 End: 02-11-2022 CBC W Auto Differential panel - Blood CBC + DIFF Lab Routine Multiple myeloma, remission status unspecified (HCC) Expected: 12/12/2021, Expires: 02/11/2022 [facility] Work Phone: Comment on above: Expected: 12/12/2021, Expires: Start: 12-12-2021 Prostate specific antigen measurement PSA counseling [facility] Work Phone: Start: 12-04-2021 COVID-19 VACCINE (5 - Booster for Moderna series) COVID-19 VACCINE (5 - Booster for Moderna series) [facility] Start: 12-04-2021 COVID-19 VACCINE (5 - Moderna risk series) COVID-19 VACCINE (5 - Moderna risk series) [facility] Start: 11-28-2021 End: 01-28-2022 CBC W Auto Differential panel - Blood CBC + DIFF Lab Routine Multiple myeloma, remission status unspecified (HCC) Expected: 11/28/2021 (Approximate), Expires: 01/28/2022 [facility] Work Phone: Comment on above: Expected: 11/28/2021 (Approximate), Expi res: 01/28/2022 Start: 11-28-2021 End: 01-28-2022 Comprehensive metabolic 2000 panel - Serum or Plasma COMP METABOLIC PANEL Lab Routine Multiple myeloma, remission status unspecified (HCC) Expected: 11/28/2021 (Approximate), Expires: 01/28/2022 [facility] Work Phone: Comment on above: Expected: 11/28/2021 (Approximate), Expi res: 01/28/2022 Start: 11-28-2021 End: 01-28-2022 MONOCLONAL PROTEIN, SERUM (BLOOD) MONOCLONAL PROTEIN, SERUM (BLOOD) Lab Routine Multiple myeloma, remission status unspecified (HCC) Expected: 11/28/2021 (Approximate), Expires: 01/28/2022 [facility] Work Phone: Comment on above: Expected: 11/28/2021 (Approximate), Expi res: 01/28/2022 Start: 11-28-2021 End: 01-28-2022 PROTEIN ELECTROPHORESIS SERUM W/INTERP PROTEIN ELECTROPHORESIS SERUM W/INTERP Lab Routine Multiple myeloma, remission status unspecified (HCC) Expected: 11/28/2021 (Approximate), Expires: 01/28/2022 [facility] Work Phone: Comment on above: Expected: 11/28/2021 (Approximate), Expi res: 01/28/2022 Start: 11-14-2021 End: 01-14-2022 CBC W Auto Differential panel - Blood CBC + DIFF Lab Routine Multiple myeloma, remission status unspecified (HCC) Expected: 11/14/2021, Expires: 01/14/2022 [facility] Work Phone: Comment on above: Expected: 11/14/2021, Expires: 2 Start: 11-14-2021 End: 01-14-2022 Comprehensive metabolic 2000 panel - Serum or Plasma COMP METABOLIC PANEL Lab Routine Multiple myeloma, remission status unspecified (HCC) Expected: 11/14/2021, Expires: 01/14/2022 [facility] Work Phone: Comment on above: Expected: 11/14/2021, Expires: 2 Start: 11-14-2021 End: 01-14-2022 IMMUNOFIXATION SCREEN, SERUM IMMUNOFIXATION SCREEN, SERUM Lab Routine Multiple myeloma, remission status unspecified (HCC) Expected: 11/14/2021, Expires: 01/14/2022 [facility] Work Phone: Comment on above: Expected: 11/14/2021, Expires: 2 Start: 11-14-2021 End: 01-14-2022 IMMUNOGLOBULINS NIDHI IMMUNOGLOBULINS NIDHI Lab Routine Multiple myeloma, remission status unspecified (HCC) Expected: 11/14/2021, Expires: 01/14/2022 [facility] Work Phone: Comment on above: Expected: 11/14/2021, Expires: 2 Start: 11-14-2021 End: 01-14-2022 KAPPA/HERNANDEZ,FREE,SER KAPPA/HERNANDEZ,FREE,SER Lab Routine Multiple myeloma, remission status unspecified (HCC) Expected: 11/14/2021, Expires: 01/14/2022 [facility] Work Phone: Comment on above: Expected: 11/14/2021, Expires: 2 Start: 11-14-2021 End: 01-14-2022 MONOCLONAL PROTEIN, SERUM (BLOOD) MONOCLONAL PROTEIN, SERUM (BLOOD) Lab Routine Multiple myeloma, remission status unspecified (HCC) Expected: 11/14/2021, Expires: 01/14/2022 [facility] Work Phone: Comment on above: Expected: 11/14/2021, Expires: 2 Start: 11-14-2021 End: 01-14-2022 PROTEIN ELECTROPHORESIS SERUM W/INTERP PROTEIN ELECTROPHORESIS SERUM W/INTERP Lab Routine Multiple myeloma, remission status unspecified (HCC) Expected: 11/14/2021, Expires: 01/14/2022 [facility] Work Phone: Comment on above: Expected: 11/14/2021, Expires: 2 Start: 10-31-2021 End: 12-31-2021 CBC W Auto Differential panel - Blood CBC + DIFF Lab Routine Multiple myeloma, remission status unspecified (HCC) Expected: 10/31/2021 (Approximate), Expires: 12/31/2021 [facility] Work Phone: Comment on above: Expected: 10/31/2021 (Approximate), Expi res: 12/31/2021 Start: 10-31-2021 End: 12-31-2021 Comprehensive metabolic 2000 panel - Serum or Plasma COMP METABOLIC PANEL Lab Routine Multiple myeloma, remission status unspecified (HCC) Expected: 10/31/2021 (Approximate), Expires: 12/31/2021 [facility] Work Phone: Comment on above: Expected: 10/31/2021 (Approximate), Expi res: 12/31/2021 Start: 10-18-2021 End: 12-18-2021 CBC W Auto Differential panel - Blood CBC + DIFF Lab Routine Multiple myeloma, remission status unspecified (HCC) Expected: 10/18/2021 (Approximate), Expires: 12/18/2021 [facility] Work Phone: Comment on above: Expected: 10/18/2021 (Approximate), Expi res: 12/18/2021 Start: 10-18-2021 End: 12-18-2021 Comprehensive metabolic 2000 panel - Serum or Plasma COMP METABOLIC PANEL Lab Routine Multiple myeloma, remission status unspecified (HCC) Expected: 10/18/2021 (Approximate), Expires: 12/18/2021 [facility] Work Phone: Comment on above: Expected: 10/18/2021 (Approximate), Expi res: 12/18/2021 Start: 10-17-2021 End: 12-17-2021 CBC W Auto Differential panel - Blood CBC + DIFF Lab Routine Multiple myeloma, remission status unspecified (HCC) Expected: 10/17/2021, Expires: 12/17/2021 [facility] Work Phone: Comment on above: Expected: 10/17/2021, Expires: 2 Start: 10-17-2021 End: 12-17-2021 Comprehensive metabolic 2000 panel - Serum or Plasma COMP METABOLIC PANEL Lab Routine Multiple myeloma, remission status unspecified (HCC) Expected: 10/17/2021, Expires: 12/17/2021 [facility] Work Phone: Comment on above: Expected: 10/17/2021, Expires: 2 Start: 10-17-2021 End: 12-17-2021 Lactate dehydrogenase [Enzymatic activity/volume] in Serum or Plasma LD LACTATE DEHYDRO Lab Routine Multiple myeloma, remission status unspecified (HCC) Expected: 10/17/2021, Expires: 12/17/2021 [facility] Work Phone: Comment on above: Expected: 10/17/2021, Expires: 2 Start: 10-17-2021 End: 12-17-2021 MONOCLONAL PROTEIN, SERUM (BLOOD) MONOCLONAL PROTEIN, SERUM (BLOOD) Lab Routine Multiple myeloma, remission status unspecified (HCC) Expected: 10/17/2021, Expires: 12/17/2021 [facility] Work Phone: Comment on above: Expected: 10/17/2021, Expires: 2 Start: 10-17-2021 End: 12-17-2021 Phosphate [Mass/volume] in Serum or Plasma PHOSPHORUS INORGANIC Lab Routine Multiple myeloma, remission status unspecified (HCC) Expected: 10/17/2021, Expires: 12/17/2021 [facility] Work Phone: Comment on above: Expected: 10/17/2021, Expires: 2 Start: 10-17-2021 End: 12-17-2021 PROTEIN ELECTROPHORESIS SERUM W/INTERP PROTEIN ELECTROPHORESIS SERUM W/INTERP Lab Routine Multiple myeloma, remission status unspecified (HCC) Expected: 10/17/2021, Expires: 12/17/2021 [facility] Work Phone: Comment on above: Expected: 10/17/2021, Expires: 2 Start: 10-11-2021 End: 12-11-2021 CBC W Auto Differential panel - Blood CBC + DIFF Lab Routine Multiple myeloma, remission status unspecified (HCC) Expected: 10/11/2021, Expires: 12/11/2021 [facility] Work Phone: Comment on above: Expected: 10/11/2021, Expires: 2 Start: 10-11-2021 End: 12-11-2021 Comprehensive metabolic 2000 panel - Serum or Plasma COMP METABOLIC PANEL Lab Routine Multiple myeloma, remission status unspecified (HCC) Expected: 10/11/2021, Expires: 12/11/2021 [facility] Work Phone: Comment on above: Expected: 10/11/2021, Expires: 2 Start: 10-03-2021 End: 12-03-2021 CBC W Auto Differential panel - Blood CBC + DIFF Lab Routine Multiple myeloma, remission status unspecified (HCC) Expected: 10/03/2021 (Approximate), Expires: 12/03/2021 [facility] Work Phone: Comment on above: Expected: 10/03/2021 (Approximate), Expi res: 12/03/2021 Start: 10-03-2021 End: 12-03-2021 Comprehensive metabolic 2000 panel - Serum or Plasma COMP METABOLIC PANEL Lab Routine Multiple myeloma, remission status unspecified (HCC) Expected: 10/03/2021 (Approximate), Expires: 12/03/2021 [facility] Work Phone: Comment on above: Expected: 10/03/2021 (Approximate), Expi res: 12/03/2021 Start: 10-03-2021 End: 12-03-2021 MONOCLONAL PROTEIN, SERUM (BLOOD) MONOCLONAL PROTEIN, SERUM (BLOOD) Lab Routine Multiple myeloma, remission status unspecified (HCC) Expected: 10/03/2021 (Approximate), Expires: 12/03/2021 [facility] Work Phone: Comment on above: Expected: 10/03/2021 (Approximate), Expi res: 12/03/2021 Start: 10-03-2021 End: 12-03-2021 PROTEIN ELECTROPHORESIS SERUM W/INTERP PROTEIN ELECTROPHORESIS SERUM W/INTERP Lab Routine Multiple myeloma, remission status unspecified (HCC) Expected: 10/03/2021 (Approximate), Expires: 12/03/2021 [facility] Work Phone: Comment on above: Expected: 10/03/2021 (Approximate), Expi res: 12/03/2021 Start: 08-10-2021 COVID-19 VACCINE (4 - Booster for Moderna series) COVID-19 VACCINE (4 - Booster for Moderna series) [facility] Start: 08-10-2021 End: 08-10-2021 Patient encounter procedure 08/10/2021 Appointment Cardiac Rehabilitation [facility] Start: 08-09-2021 End: 08-09-2021 Patient encounter procedure 08/09/2021 Appointment Cardiac Rehabilitation [facility] Start: 08-07-2021 End: 08-07-2021 Patient encounter procedure 08/07/2021 Appointment Cardiac Rehabilitation [facility] Start: 08-03-2021 End: 08-03-2021 Patient encounter procedure 08/03/2021 Appointment Cardiac Rehabilitation [facility] Start: 08-02-2021 End: 08-02-2021 Patient encounter procedure 08/02/2021 Appointment Cardiac Rehabilitation [facility] Start: 07-31-2021 End: 07-31-2021 Patient encounter procedure 07/31/2021 Appointment Cardiac Rehabilitation [facility] Start: 07-27-2021 End: 07-27-2021 Patient encounter procedure 07/27/2021 Appointment Cardiac Rehabilitation [facility] Start: 07-26-2021 End: 07-26-2021 Patient encounter procedure 07/26/2021 Appointment Cardiac Rehabilitation [facility] Start: 07-24-2021 End: 07-24-2021 Patient encounter procedure 07/24/2021 Appointment Cardiac Rehabilitation [facility] Start: 07-20-2021 End: 07-20-2021 Patient encounter procedure 07/20/2021 Appointment Cardiac Rehabilitation [facility] Start: 07-19-2021 End: 07-19-2021 Patient encounter procedure 07/19/2021 Appointment Cardiac Rehabilitation [facility] Start: 07-17-2021 End: 07-17-2021 Patient encounter procedure 07/17/2021 Appointment Cardiac Rehabilitation [facility] Start: 07-13-2021 End: 07-13-2021 Patient encounter procedure 07/13/2021 Appointment Cardiac Rehabilitation [facility] Start: 07-12-2021 End: 07-12-2021 Patient encounter procedure 07/12/2021 Appointment Cardiac Rehabilitation [facility] Start: 07-10-2021 End: 07-10-2021 Patient encounter procedure 07/10/2021 Appointment Cardiac Rehabilitation [facility] Start: 07-06-2021 End: 07-06-2021 Patient encounter procedure 07/06/2021 Appointment Cardiac Rehabilitation [facility] Start: 07-05-2021 End: 07-05-2021 Patient encounter procedure 07/05/2021 Appointment Cardiac Rehabilitation [facility] Start: 07-03-2021 End: 07-03-2021 Patient encounter procedure 07/03/2021 Appointment Cardiac Rehabilitation [facility] Start: 07-01-2021 ADVANCE DIRECTIVE DISCUSSION ADVANCE DIRECTIVE DISCUSSION [facility] Start: 07-01-2021 DEPRESSION ASSESSMENT DEPRESSION ASSESSMENT [facility] Start: 06-29-2021 End: 06-29-2021 Patient encounter procedure 06/29/2021 Appointment Cardiac Rehabilitation [facility] Start: 06-28-2021 End: 06-28-2021 Patient encounter procedure 06/28/2021 Appointment Cardiac Rehabilitation [facility] Start: 06-26-2021 End: 06-26-2021 Patient encounter procedure 06/26/2021 Appointment Cardiac Rehabilitation [facility] Cardiac Rehab Start: 06-22-2021 End: 06-22-2021 Patient encounter procedure 06/22/2021 Appointment Cardiac Rehabilitation [facility] Card[facility] Rehab Start: 06-21-2021 End: 06-21-2021 Patient encounter procedure 06/21/2021 Appointment Cardiac Rehabilitation [facility] Cardiac Rehab Start: 06-19-2021 End: 06-19-2021 Patient encounter procedure 06/19/2021 Appointment Cardiac Rehabilitation [facility] Cardiac Rehab Start: 06-15-2021 End: 06-15-2021 Patient encounter procedure 06/15/2021 Appointment Cardiac Rehabilitation [facility] Cardiac Rehab Start: 06-14-2021 End: 06-14-2021 Patient encounter procedure 06/14/2021 Appointment Cardiac Rehabilitation [facility] Card[facility] Rehab Start: 06-12-2021 End: 06-12-2021 Patient encounter procedure 06/12/2021 Appointment Cardiac Rehabilitation [facility] Cardiac Rehab Start: 06-08-2021 End: 06-08-2021 Patient encounter procedure 06/08/2021 Appointment Cardiac Rehabilitation [facility] Cardiac Rehab Start: 06-07-2021 End: 06-07-2021 Patient encounter procedure 06/07/2021 Appointment Cardiac Rehabilitation [facility] Cardiac Rehab Start: 06-05-2021 End: 06-05-2021 Patient encounter procedure 06/05/2021 Appointment Cardiac Rehabilitation [facility] Cardiac Rehab Start: 06-01-2021 End: 06-01-2021 Patient encounter procedure 06/01/2021 Appointment Cardiac Rehabilitation [facility] Card[facility] Rehab Start: 05-31-2021 End: 05-31-2021 Patient encounter procedure 05/31/2021 Appointment Cardiac Rehabilitation [facility] Cardiac Rehab Start: 05-29-2021 End: 05-29-2021 Patient encounter procedure 05/29/2021 Appointment Cardiac Rehabilitation [facility] Cardiac Rehab Start: 05-24-2021 End: 05-24-2021 Patient encounter procedure 05/24/2021 Appointment Cardiac Rehabilitation [facility] Cardiac Rehab Start: 05-23-2021 End: 05-23-2021 Patient encounter procedure 05/23/2021 Appointment IP Unit [facility] Start: 05-22-2021 End: 05-22-2021 Patient encounter procedure 05/22/2021 Appointment Cardiac Rehabilitation [facility] Cardiac Rehab Start: 05-18-2021 End: 05-18-2021 Patient encounter procedure [facility] Start: 04-25-2021 Subsequent hospital visit by physician 04/25/2021 Hospital Encounter IP Unit [facility] [employer] Start: 04-12-2021 End: 04-12-2021 Patient encounter procedure 04/12/2021 Procedure visit Urology Levy Thomas MD [address], [address] [place] [address] [phone] [facility] Start: 04-06-2021 Pneumococcal 65+ years Vaccine (3 of 3 - PCV) Pneumococcal 65+ years Vaccine (3 of 3 - PCV) [facility] Start: 04-06-2021 Pneumococcal 65+ yrs at Risk Vaccine (2 of 2 - PCV13) Pneumococcal 65+ yrs at Risk Vaccine (2 of 2 - PCV13) [facility] Work Phone: Start: 03-15-2021 End: 03-15-2021 Patient encounter procedure 03/15/2021 Office Visit Oncology Karime Weaver MD [address] [place] [address] [facility] Start: 03-02-2021 End: 03-02-2021 Patient encounter procedure 03/02/2021 Appointment Physical Therapy [facility] Start: 03-01-2021 Influenza vaccination [facility] Start: 03-01-2021 Prostate specific antigen measurement PSA counseling [facility] [place] Start: 02-27-2021 End: 02-27-2021 Patient encounter procedure 02/27/2021 Appointment Physical Therapy [facility] Start: 02-23-2021 End: 02-23-2021 Patient encounter procedure 02/23/2021 Appointment Physical Therapy Fernandez Romo PT [facility] Start: 02-21-2021 End: 02-21-2021 Patient encounter procedure 02/21/2021 Appointment Physical Therapy Fernandez Romo PT [facility] Start: 01-26-2021 End: 01-26-2021 Patient encounter procedure 01/26/2021 Appointment Physical Therapy Fernandez Romo PT [facility] Start: 01-24-2021 End: 01-24-2021 Patient encounter procedure 01/24/2021 Appointment Physical Therapy [facility] Start: 01-20-2021 End: 01-20-2021 Patient encounter procedure 01/20/2021 Appointment Physical Therapy Fernandez Romo, PT [facility] Start: 01-18-2021 End: 01-18-2021 Patient encounter procedure 01/18/2021 [facility] Start: 01-13-2021 End: 01-13-2021 Patient encounter procedure [facility] Physical Therapy Start: 01-10-2021 COVID-19 VACCINE (3 - Booster for Moderna series) COVID-19 VACCINE (3 - Booster for Moderna series) [facility] Start: 01-10-2021 End: 01-10-2021 Patient encounter procedure 01/10/2021 Appointment Physical Therapy Fernandez Romo, PT [facility] Physical Therapy Start: 01-09-2021 End: 01-09-2021 Patient encounter procedure 01/09/2021 Procedure visit Urology Levy Thomas MD [address] [facility] [facility], [address] [id number] [facility] Start: 01-05-2021 End: 01-05-2021 Patient encounter procedure 01/05/2021 Appointment Physical Therapy Patti Desai, PT [facility] Physical Therapy Start: 01-05-2021 End: 01-05-2021 Patient encounter procedure 01/05/2021 Appointment Physical Therapy Fernandez Romo, PT [facility] Physical Therapy Start: 01-04-2021 End: 01-04-2021 Patient encounter procedure 01/04/2021 Procedure visit Urology Levy Thomas MD [address] [place] [address], [address] [place], [place] [id number] [facility] Start: 01-03-2021 End: 01-03-2021 Patient encounter procedure 01/03/2021 Appointment Physical Therapy Igor Rojas [facility] Physical Therapy Start: 12-29-2020 End: 12-29-2020 Patient encounter procedure 12/29/2020 Appointment Physical Therapy Fernandez Romo, PT [facility] Physical Therapy Start: 12-26-2020 End: 12-26-2020 Patient encounter procedure 12/26/2020 Appointment Physical Therapy Martha Lima, PT [facility] Physical Therapy Start: 12-22-2020 End: 12-22-2020 Patient encounter procedure 12/22/2020 Office Visit Oncology Nic Garcia MD [address] [place], [place] [id number] [facility] Start: 12-20-2020 End: 12-20-2020 Patient encounter procedure 12/20/2020 Office Visit Oncology Nic Garcia MD [address] [place], [place] [id number] [facility] Start: 10-03-2020 End: 10-03-2020 Office Visit 10/03/2020 Office Visit Urology Levy Thomas MD [address], [address] [place] [address] [facility] Start: 09-21-2020 End: 09-21-2020 Office Visit 09/21/2020 Office Visit Oncology Nic Garcia MD [address] [facility] [place] [address] [facility] Start: 09-20-2020 End: 09-20-2020 Hospital Encounter [facility] OR Comment on above: CYSTOSCOPY TRANSURETHRAL RESECTION BLADD ER Start: 09-10-2020 COVID-19 Vaccine (3 - Moderna risk 4-dose series) COVID-19 Vaccine (3 - Moderna risk 4-dose series) [facility] Start: 09-10-2020 COVID-19 Vaccine (3 - Moderna risk series) COVID-19 Vaccine (3 - Moderna risk series) [facility] Start: 09-08-2020 Prostate specific antigen measurement PSA counseling [facility] Start: 09-08-2020 PSA counseling PSA counseling [facility] Start: 05-24-2020 End: 05-24-2020 Hospital Encounter [facility] OR Comment on above: CYSTOSCOPY TRANSURETHRAL RESECTION BLADD ER, TURBT Start: 05-24-2020 End: 05-24-2020 Hospital Encounter [facility] OR Comment on above: CYSTOSCOPY TRANSURETHRAL RESECTION BLADD ER, TURBT Start: 05-11-2020 End: 05-11-2020 Procedure visit 05/11/2020 Procedure visit Urology Levy Thomas MD [address], [address] [place] [address] [phone] [facility] Start: 05-04-2020 End: 05-04-2020 Office Visit 05/04/2020 Office Visit Oncology Nic Garcia MD [address] [place] [address] [facility] Start: 03-27-2020 PSA counseling PSA counseling [facility] Start: 03-10-2020 End: 03-10-2020 Procedure visit 03/10/2020 Procedure visit Urology Levy Thomas MD [address], [address] [place] [address] [phone] [facility] Start: 03-02-2020 End: 03-02-2020 Office Visit 03/02/2020 Office Visit Oncology Karime Weaver MD [address] [place] [address] [facility] Start: 03-01-2020 Influenza vaccination Flu vaccine (#1) [place], [place] Start: 12-23-2019 End: 12-23-2019 Office Visit 12/23/2019 Office Visit Oncology Karime Weaver MD [address] [place] [address] [facility] Start: 12-07-2019 End: 12-07-2019 Procedure visit 12/07/2019 Procedure visit Urology Levy Thomas MD [address], [address] [place] [address] [facility] Start: 09-16-2019 End: 09-16-[address] [facility] Start: 09-02-2019 End: 09-02-2019 Procedure visit 09/02/2019 Procedure visit Levy Crabtree MD [address] [place] [address] [facility] Start: 05-04-2019 End: 05-04-2019 Office Visit 05/04/2019 Office Visit Levy Crabtree MD [address] [place] [address] [facility] Start: 05-01-2019 End: 05-01-2019 Appointment 05/01/2019 Appointment Infusion Therapy [facility] Start: 04-29-2019 End: 04-29-2019 Office Visit 04/29/2019 Office Visit UrologLevy Chapman MD [address] [place] [address] [facility] Start: 04-24-2019 End: 04-24-2019 Appointment 04/24/2019 Appointment Infusion Therapy [facility] Start: 04-21-2019 End: 04-21-2019 Hospital Encounter [facility] Comment on above: CYSTOSCOPY TRANSURETHRAL RESECTION BLADD ER Start: 04-17-2019 End: 04-17-[address] [facility] Start: 04-06-2019 End: 04-06-2019 Procedure visit 04/06/2019 Procedure visit Urology Levy Thomas MD [address] [place] [address] [facility] Start: 04-03-2019 End: 04-03-2019 Appointment 04/03/2019 Appointment Infusion Therapy [facility] Start: 03-27-2019 End: 03-27-2019 Appointment 03/27/2019 Appointment Infusion Therapy [facility] Start: 03-20-2019 End: 03-20-2019 Appointment 03/20/2019 Appointment Infusion Therapy [facility] Start: 03-18-2019 End: 03-18-2019 Office Visit 03/18/2019 Office Visit Oncology Karime Weaver MD [address] [address] [phone] [facility] Start: 03-16-2019 End: 03-16-2019 Appointment 03/16/[address] [facility] [address] Scan Start: 03-11-2019 End: 03-11-2019 Appointment 03/11/[address] [facility] [address] Scan Start: 03-06-2019 End: 03-06-2019 Appointment 03/06/2019 [facility] Start: 03-01-2019 Influenza vaccination Flu vaccine (#1) [place], [place] Start: 02-27-2019 End: 02-27-2019 Appointment 02/27/2019 [facility] Start: 12-18-2018 Annual Wellness Visit (AWV) Annual Wellness Visit (AWV) [facility] Start: 04-25-2018 Pneumococcal 65+ years Vaccine (2 of 2 - PCV13) Pneumococcal 65+ years Vaccine (2 of 2 - PCV13) [place] Start: 04-25-2018 Pneumococcal 65+ yrs at Risk Vaccine (2 of 2 - PCV13) Pneumococcal 65+ yrs at Risk Vaccine (2 of 2 - PCV13) [place] Start: 05-12-2009 Pneumococcal 65+ years Vaccine (2 - PCV) Pneumococcal 65+ years Vaccine (2 - PCV) [facility] Start: 05-12-2009 Pneumococcal 65+ years Vaccine (2 of 2 - PCV13) Pneumococcal 65+ years Vaccine (2 of 2 - PCV13) [place] Start: 05-12-2009 Pneumococcal 65+ yrs at Risk Vaccine (2 of 2 - PCV13) Pneumococcal 65+ yrs at Risk Vaccine (2 of 2 - PCV13) [facility] Start: 2005 Annual Wellness Visit (AWV) Annual Wellness Visit (AWV) [place] Start: 2002 Respiratory Syncytial Virus (RSV) or age 60 yrs+ (1 - 1-dose 60+ series) Respiratory Syncytial Virus (RSV) or age 60 yrs+ (1 - 1-dose 60+ series) [facility] Start: 2002 RSV Vaccine (1 - 1-dose 60+ series) RSV Vaccine (1 - 1-dose 60+ series) [facility] Start: 02-26-1992 Shingles Vaccine (1 of 2) Shingles Vaccine (1 of 2) [facility] Start: 02-26-1992 SHINGRIX VACCINE (1 of 2) SHINGRIX VACCINE (1 of 2) [facility] Start: 1961 DTaP/Tdap/Td vaccine (1 - Tdap) DTaP/Tdap/Td vaccine (1 - Tdap) [facility] Start: 1961 Shingles vaccine (1 of 2) Shingles vaccine (1 of 2) [facility] Start: 1961 SHINGRIX VACCINE (1 of 2) SHINGRIX VACCINE (1 of 2) [facility] Start: 1961 Urine microalbumin profile DTAP,TDAP,TD (1 - Tdap) [facility] Start: 02-26-1960 ANNUAL PCP TEAM CHRONIC DISEASE VISIT ANNUAL PCP TEAM CHRONIC DISEASE VISIT [facility] Start: 02-26-1960 Anxiety Screening Anxiety Screening [facility] Start: 02-26-1960 Depression Screening Depression Screening [facility] Start: 02-26-1960 Hepatitis C screening Hepatitis C screen [facility] Start: 1958 COVID-19 Vaccine (1 of 2) COVID-19 Vaccine (1 of 2) [facility] Work Phone: Start: 1958 COVID-19 Vaccine (1) COVID-19 Vaccine (1) [facility] [email or web address] Phone: Start: 1954 Adult depression screening assessment DEPRESSION SCREENING [facility] Start: 1954 COVID-19 Vaccine (1) COVID-19 Vaccine (1) [facility] [employer] Phone: Start: 1954 Depression Screen Depression Screen [facility] Start: 1953 DTaP/Tdap/Td vaccine (1 - Tdap) DTaP/Tdap/Td vaccine (1 - Tdap) [facility] Start: 02-26-1952 Lipid panel Lipid screen [place], [place] Start: 1942 Annual Wellness Visit (AWV) Annual Wellness Visit (AWV) [facility] [employer] [facility] [employer]. Start: 1942 Hepatitis C screening Hepatitis C screen [facility] End: 05-23-2020 aPTT Coag (Bld) [Time] APTT Lab STAT One Time for 1 Occurrences starting 05/23/2020 until 05/23/2020 [place], [place] Comment on above: One Time for 1 Occurrences starting 05/02 until 05/23/2020 aPTT Coag (Bld) [Time] [place], [place] Comment on above: Now Then Every 6hr until discontinued st arting 05/23/2020 End: 12-05-2022 Assay of prostate specific antigen total [employer] [facility] [employer] Phone: Comment on above: 1 Occurrences starting 12/05/2022 until 12/05/2022 End: 03-01-2020 Basic metabolic 2000 panel Basic Metabolic Panel Lab Routine Multiple myeloma, remission status unspecified (HCC) 1 Occurrences starting 03/01/2020 until 03/01/2020 [place] Comment on above: 1 Occurrences starting 03/01/2020 until 03/01/2020 Chpr-3-[id number] [Mass/volume] in Serum or Plasma B2 MICROGLOBULIN Lab Routine Multiple myeloma not having achieved remission (HCC) 02/20/2024 3:20 PM EDT [facility] Work Phone: End: 01-24-2022 Blood Bank Specimen [employer] Phone: Comment on above: Once for 1 Occurrences starting 01/25/20 until 01/24/2022 End: 03-19-2022 Blood Bank Specimen [employer] Phone: Comment on above: Once for 1 Occurrences starting 03/19/20 until 03/19/2022 Calcium.ionized [Moles/volume] in Blood CALCIUM, IONIZED Lab Routine Multiple myeloma not having achieved remission (HCC) 02/20/2024 3:19 PM EDT [facility] End: 03-20-2022 Catheterization and angiography procedure details panel Cardiac Catheterization Cardiac Cath Routine One Time for 1 Occurrences starting 03/20/2022 until 03/20/2022 [facility] [employer] Work Phone: Comment on above: One Time for 1 Occurrences starting 03/02 until 03/20/2022 CBC [facility] Comment on above: As Needed for 2 Occurrences starting Every Other Day unti l discontinued starting 05/25/2020 End: 03-01-2020 CBC Auto Differential CBC Auto Differential Lab Routine Multiple myeloma, remission status unspecified (HCC) 1 Occurrences starting 03/01/2020 until 03/01/2020 [employer] Comment on above: 1 Occurrences starting 03/01/2020 until 03/01/2020 CBC W Auto Different ial panel - Blood CBC + DIFF Lab Routine Multiple myeloma not having achieved remission (HCC) Malaise and fatigue 08/21/2023 10:01 AM EST [facility] Work Phone: End: 09-05-2024 CBC W Auto Differential panel - Blood CBC + DIFF Lab Routine Multiple myeloma not having achieved remission (HCC) Stage 3a chronic kidney disease (HCC) Leg swelling Neuropathy Once per week for 2 Occurrences starting 09/06/2023 until 09/05/2024 [facility] Work Phone: Comment on above: Once per week for 2 Occurrences starting 09/06/2023 until 09/05/2024 CBC W Auto Different ial panel - Blood CBC + DIFF Lab Routine Multiple myeloma not having achieved remission (HCC) Stage 3a chronic kidney disease (HCC) Leg swelling Neuropathy 10/02/2023 1:23 PM EDT [facility] Work Phone: CBC W Auto Different ial panel - Blood COMPLETE BLOOD COUNT AND DIFFERENTIAL Lab Routine Multiple myeloma not having achieved remission (HCC) 01/22/2024 1:05 PM EDT [facility] Work Phone: End: 09-05-2024 Comprehensive metabolic 2000 panel - Serum or Plasma COMP METABOLIC PANEL Lab Routine Multiple myeloma not having achieved remission (HCC) Stage 3a chronic kidney disease (HCC) Leg swelling Neuropathy Once per week for 2 Occurrences starting 09/06/2023 until 09/05/2024 [employer] Work Phone: Comment on above: Once per week for 2 Occurrences starting 09/06/2023 until 09/05/2024 CT SIM PLANNING RADI ATION ONCOLOGY CT SIM PLANNING RADIATION ONCOLOGY Radiology Routine Multiple myeloma not having achieved remission (HCC) Ordered: 06/13/2023 [employer] Work Phone: Comment on above: Ordered: 06/13/2023 End: 09-05-2020 Culture, Urine Culture, Urine Microbiology Routine 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) Frequency of urination 1 Occurrences starting 09/05/2020 until 09/05/2020 [employer] Phone: Comment on above: 1 Occurrences starting 09/05/2020 until 09/05/2020 Culture, Urine Culture, Urine Microbiology Routine 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) Frequency of urination 09/05/2020 8:30 AM EST [employer] Phone: End: 04-06-2019 Cytology, Non-Head Refrigerating Engineer Cytology, Non-Head Refrigerating Engineer Lab Routine 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) 1 Occurrences starting 04/06/2019 until 04/06/2019 [place] Comment on above: 1 Occurrences starting 04/06/2019 until 04/06/2019 Cytology, Non-Head Refrigerating Engineer [facility] [place] [place] End: 12-07-2019 Cytology, Non-Head Refrigerating Engineer Cytology, Non-Head Refrigerating Engineer Lab Routine 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) 1 Occurrences starting 12/07/2019 until 12/07/2019 [place] Comment on above: 1 Occurrences starting 12/07/2019 until 12/07/2019 End: 01-09-2021 Cytology, Non-Head Refrigerating Engineer Cytology, Non-Head Refrigerating Engineer Lab Routine 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) 1 Occurrences starting 01/09/2021 until 01/09/2021 [employer] Phone: Comment on above: 1 Occurrences starting 01/09/2021 until 01/09/2021 End: 12-01-2021 Cytology, Non-ROLL CUTTING OPERATOR [employer] Work Phone: Comment on above: 1 Occurrences starting 12/01/2021 until 12/01/2021 End: 09-23-2023 Cytology, Non-Head Refrigerating Engineer [employer] Comment on above: 1 Occurrences starting 09/23/2023 until 09/23/2023 End: 02-26-2023 ECG COMPLETE ECG COMPLETE ECG Routine Abnormality of left atrial appendage 1 Occurrences starting 02/26/2022 until 02/26/2023 [facility] Work Phone: Comment on above: 1 Occurrences starting 02/26/2022 until 02/26/2023 End: 05-14-2024 Echocardiography ECHO Cardiology Routine Multiple myeloma not having achieved remission (HCC) Stage 3a chronic kidney disease (HCC) Abnormal electrocardiogram (ECG) (EKG) 1 Occurrences starting 05/14/2023 until 05/14/2024 [facility] Work Phone: Comment on above: 1 Occurrences starting 05/14/2023 until 05/14/2024 EKG 12 Lead [employer] EKG 12 Lead EKG 12 Lead ECG Routine 01/28/2022 9:25 AM EDT [employer] Work Phone: End: 03-20-2022 EKG 12 lead EKG 12 lead ECG Routine One Time for 1 Occurrences starting 03/20/2022 until 03/20/2022 [employer] Work Phone: Comment on above: One Time for 1 Occurrences starting 03/02 until 03/20/2022 Electrophoresis Prot ein, Serum without Reflex to Immunofixation Electrophoresis Protein, Serum without Reflex to Immunofixation Lab Routine Multiple myeloma in remission (HCC) 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) Elevated PSA 12/12/2020 9:06 AM EDT [employer] Work Phone: Holter monitor study [facility] IMMUNOFIXATION SCREE N, SERUM IMMUNOFIXATION SCREEN, SERUM Lab Routine Multiple myeloma not having achieved remission (HCC) Malaise and fatigue 08/21/2023 10:01 AM [facility] Work Phone: IMMUNOFIXATION SCREE N, SERUM IMMUNOFIXATION SCREEN, SERUM Lab Routine Multiple myeloma not having achieved remission (HCC) 09/06/2023 10:38 AM [facility] Work Phone: IMMUNOFIXATION SCREE N, SERUM IMMUNOFIXATION SCREEN, SERUM Lab Routine Multiple myeloma not having achieved remission (HCC) Stage 3a chronic kidney disease (HCC) Leg swelling Neuropathy 09/19/2023 10:49 AM [facility] Work Phone: IMMUNOFIXATION SCREE N, SERUM IMMUNOFIXATION SCREEN, SERUM Lab Routine Multiple myeloma not having achieved remission (HCC) 10/30/2023 2:40 PM [facility] IMMUNOFIXATION SCREE N, SERUM IMMUNOFIXATION SCREEN, SERUM Lab Routine Multiple myeloma not having achieved remission (HCC) 11/26/2023 10:08 AM [facility] IMMUNOFIXATION SCREE N, SERUM IMMUNOFIXATION SCREEN, SERUM Lab Routine Multiple myeloma not having achieved remission (HCC) Stage 3a chronic kidney disease (HCC) 12/24/2023 11:22 AM [facility] IMMUNOFIXATION SCREE N, SERUM IMMUNOFIXATION SCREEN, SERUM Lab Routine Multiple myeloma not having achieved remission (HCC) 01/22/2024 1:05 PM [facility] IMMUNOFIXATION SCREE N, SERUM IMMUNOFIXATION SCREEN, SERUM Lab Routine Multiple myeloma not having achieved remission (HCC) 02/20/2024 3:20 PM [facility] IMMUNOFIXATION SCREE N, SERUM IMMUNOFIXATION SCREEN, SERUM Lab Routine Multiple myeloma not having achieved remission (HCC) Stage 3a chronic kidney disease (HCC) 04/02/2024 2:22 PM [facility] End: 02-20-2019 Immunofixation serum profile Immunofixation serum profile Lab Routine 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) Plasmacytoma (HCC) 1 Occurrences starting 02/20/2019 until 02/20/2019 [facility] [place] Comment on above: 1 Occurrences starting 02/20/2019 until 02/20/2019 Immunofixation serum profile [facility] [place] End: 03-20-2019 Immunofixation serum profile Immunofixation serum profile Lab Routine 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) Plasmacytoma (HCC) 1 Occurrences starting 03/20/2019 until 03/20/2019 [place] Comment on above: 1 Occurrences starting 03/20/2019 until 03/20/2019 End: 09-16-2019 Immunofixation Serum Profile Immunofixation Serum Profile Lab Routine Multiple myeloma, remission status unspecified (HCC) 1 Occurrences starting 09/16/2019 until 09/16/2019 [place] Comment on above: 1 Occurrences starting 09/16/2019 until 09/16/2019 End: 03-01-2020 Immunofixation Serum Profile Immunofixation Serum Profile Lab Routine Multiple myeloma, remission status unspecified (HCC) 1 Occurrences starting 03/01/2020 until 03/01/2020 [place], [place] Comment on above: 1 Occurrences starting 03/01/2020 until 03/01/2020 End: 04-22-2020 Immunofixation Serum Profile Immunofixation Serum Profile Lab Routine Multiple myeloma, remission status unspecified (HCC) 1 Occurrences starting 04/22/2020 until 04/22/2020 [place], [place] Comment on above: 1 Occurrences starting 04/22/2020 until 04/22/2020 End: 12-14-2019 Immunofixation Serum Profile Immunofixation Serum Profile Lab Routine Multiple myeloma, remission status unspecified (HCC) 1 Occurrences starting 12/14/2019 until 12/14/2019 [place], [place] Comment on above: 1 Occurrences starting 12/14/2019 until 12/14/2019 End: 09-13-2020 Immunofixation Serum Profile Immunofixation Serum Profile Lab Routine Multiple myeloma, remission status unspecified (HCC) 1 Occurrences starting 09/13/2020 until 09/13/2020 [facility] [employer] Work Phone: Comment on above: 1 Occurrences starting 09/13/2020 until 09/13/2020 End: 04-16-2019 Immunofixation serum profile Immunofixation serum profile Lab Routine 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) Plasmacytoma (HCC) 1 Occurrences starting 04/16/2019 until 04/16/2019 [place], [place] Comment on above: 1 Occurrences starting 04/16/2019 until 04/16/2019 End: 04-16-2019 Immunofixation Urine 24 HR Profile Immunofixation Urine 24 HR Profile Lab Routine Plasmacytoma (HCC) Multiple myeloma not having achieved remission (HCC) 1 Occurrences starting 04/16/2019 until 04/16/2019 [facility] [place] Comment on above: 1 Occurrences starting 04/16/2019 until 04/16/2019 Immunofixation urine random profile Immunofixation urine random profile Lab Routine 04/16/2019 1:00 PM EDT [facility] [place] IMMUNOGLOBULINS NIDHI IMMUNOGLOBUL INS NIDHI Lab Routine Multiple myeloma not having achieved remission (HCC) 09/06/2023 10:38 AM [facility] Work Phone: IMMUNOGLOBULINS,IGG, IGA,I GM IMMUNOGLOBULINS,IGG,IGA,I GM Lab Routine Multiple myeloma not having achieved remission (HCC) 10/30/2023 2:40 PM EDT [facility] IMMUNOGLOBULINS,IGG, IGA,I GM IMMUNOGLOBULINS,IGG,IGA,I GM Lab Routine Multiple myeloma not having achieved remission (HCC) 11/26/2023 10:08 AM EDT [facility] IMMUNOGLOBULINS,IGG, IGA,I GM IMMUNOGLOBULINS,IGG,IGA,I GM Lab Routine Multiple myeloma not having achieved remission (HCC) 01/22/2024 1:05 PM EDT [facility] IMMUNOGLOBULINS,IGG, IGA,I GM IMMUNOGLOBULINS,IGG,IGA,I GM Lab Routine Multiple myeloma not having achieved remission (HCC) 02/20/2024 3:19 PM EDT [facility] IMMUNOGLOBULINS,IGG, IGA,I GM IMMUNOGLOBULINS,IGG,IGA,I GM Lab Routine Multiple myeloma not having achieved remission (HCC) Stage 3a chronic kidney disease (HCC) 04/02/2024 2:22 PM EDT [facility] Initiate Oxygen Ther apy Protocol Initiate Oxygen Therapy Protocol Respiratory Care Routine Daily until discontinued starting 04/21/2019 [facility] [place] Comment on above: Daily until discontinued starting 2018 End: 03-20-2022 INITIATE PACU OXYGEN THERAPY PROTOCOL Initiate PACU Oxygen Therapy Protocol Respiratory Care Routine Continuous until discontinued starting 03/20/2022 GALINA BRITTON [facility] Work Phone: Comment on above: Continuous until discontinued starting 0 03/20/2022 End: 01-24-2022 Intermittent pulse oximetry Pulse Oximetry Spot Check Respiratory Care Routine Continuous until discontinued starting 01/24/2022 GALINA BRITTON [employer] Work Phone: Comment on above: Continuous until discontinued starting 0 01/24/2022 KAPPA/HERNANDEZ,FREE,SER KAPPA/HERNANDEZ,F REE,SER Lab Routine Multiple myeloma not having achieved remission (HCC) Malaise and fatigue 08/21/2023 10:01 AM [employer] [facility] Work Phone: KAPPA/HERNANDEZ,FREE,SER KAPPA/HERNANDEZ,F REE,SER Lab Routine Multiple myeloma not having achieved remission (HCC) 09/06/2023 10:38 AM [employer] [facility] Work Phone: KAPPA/HERNANDEZ,FREE,SER KAPPA/HERNANDEZ,F REE,SER Lab Routine Multiple myeloma not having achieved remission (HCC) Stage 3a chronic kidney disease (HCC) Leg swelling Neuropathy 09/19/2023 10:49 AM EDT [facility] Work Phone: KAPPA/HERNANDEZ,FREE,SER KAPPA/HERNANDEZ,F REE,SER Lab Routine Multiple myeloma not having achieved remission (HCC) 10/30/2023 2:40 PM EDT [facility] KAPPA/HERNANDEZ,FREE,SER KAPPA/HERNANDEZ,F REE,SER Lab Routine Multiple myeloma not having achieved remission (HCC) 11/26/2023 10:08 AM EDT [facility] KAPPA/HERNANDEZ,FREE,SER KAPPA/HERNANDEZ,F REE,SER Lab Routine Multiple myeloma not having achieved remission (HCC) Stage 3a chronic kidney disease (HCC) 12/24/2023 11:22 AM EDT [facility] KAPPA/HERNANDEZ,FREE,SER KAPPA/HERNANDEZ,F REE,SER Lab Routine Multiple myeloma not having achieved remission (HCC) 01/22/2024 1:05 PM EDT [facility] KAPPA/HERNANDEZ,FREE,SER KAPPA/HERNANDEZ,F REE,SER Lab Routine Multiple myeloma not having achieved remission (HCC) 02/20/2024 3:19 PM EDT [facility] End: 05-10-2021 MISCELLANEOUS TESTING [employer] Work Phone: Comment on above: Once for 1 Occurrences starting 05/10/20 21 until 05/10/2021 MONOCLONAL PROTEIN, SERUM (BLOOD) MONOCLONAL PROTEIN, SERUM (BLOOD) Lab Routine Multiple myeloma not having achieved remission (HCC) 05/22/2022 12:30 PM [employer] [facility] Work Phone: MONOCLONAL PROTEIN, SERUM (BLOOD) MONOCLONAL PROTEIN, SERUM (BLOOD) Lab Routine Multiple myeloma not having achieved remission (HCC) Malaise and fatigue 08/21/2023 10:01 AM [employer] [facility] Work Phone: MONOCLONAL PROTEIN, SERUM (BLOOD) MONOCLONAL PROTEIN, SERUM (BLOOD) Lab Routine Multiple myeloma not having achieved remission (HCC) 09/06/2023 10:38 AM [employer] [facility] Work Phone: MONOCLONAL PROTEIN, SERUM (BLOOD) MONOCLONAL PROTEIN, SERUM (BLOOD) Lab Routine Multiple myeloma not having achieved remission (HCC) Stage 3a chronic kidney disease (HCC) Leg swelling Neuropathy 09/19/2023 10:49 AM [facility] Work Phone: MONOCLONAL PROTEIN, SERUM (BLOOD) MONOCLONAL PROTEIN, SERUM (BLOOD) Lab Routine Multiple myeloma not having achieved remission (HCC) 11/26/2023 10:08 AM EDT [facility] MONOCLONAL PROTEIN, SERUM (BLOOD) MONOCLONAL PROTEIN, SERUM (BLOOD) Lab Routine Multiple myeloma not having achieved remission (HCC) 01/22/2024 1:05 PM EDT [facility] MONOCLONAL PROTEIN, SERUM (BLOOD) MONOCLONAL PROTEIN, SERUM (BLOOD) Lab Routine Multiple myeloma not having achieved remission (HCC) 02/20/2024 3:19 PM EDT [facility] Oxygen therapy [Mini mum Data Set] [place], [place] Comment on above: Daily until discontinued starting 2019 Daily until disconti nued starting 09/20/2020 Daily until disconti nued starting 04/25/2021 Oxygen therapy [Mini mum Data Set] Initiate Oxygen Therapy Protocol Respiratory Care Routine As Needed until discontinued starting 01/24/2022 [employer] Phone: Comment on above: As Needed until discontinued starting Oxygen therapy [Mini mum Data Set] Initiate Oxygen Therapy Protocol Respiratory Care Routine As Needed until discontinued starting 03/20/2022 [employer] Phone: Comment on above: As Needed until discontinued starting Oxygen therapy [Mini [facility] Data Set] Initiate Oxygen Therapy Protocol Respiratory Care Routine As Needed until discontinued starting 03/20/2022 GALINA BRITTON [facility] Work Phone: Comment on above: As Needed until discontinued starting Patient Education [facility] Work Phone: Patient referral [facility] Work Phone: End: 05-24-2020 PREVIOUS SPECIMEN PREVIOUS SPECIMEN Lab Routine Once for 1 Occurrences starting 05/24/2020 until 05/24/2020 [facility] [place], [place] Comment on above: Once for 1 Occurrences starting 05/24/20 until 05/24/2020 PREVIOUS SPECIMEN [facility] [place], [place] PROT ELECT SERUM WIT H ANI AND INTERP PROT ELECT SERUM WITH ANI AND INTERP Lab Routine Multiple myeloma not having achieved remission (HCC) 09/06/2023 10:38 AM [employer] Work Phone: Protein [Mass/volume ] in Serum or Plasma PROTEIN TOTAL BLD Lab Routine Multiple myeloma not having achieved remission (HCC) Malaise and fatigue 08/21/2023 10:01 AM [employer] Work Phone: Protein [Mass/volume ] in Serum or Plasma PROTEIN TOTAL BLD Lab Routine Multiple myeloma not having achieved remission (HCC) 09/06/2023 10:38 AM [employer] Work Phone: Protein [Mass/volume ] in Serum or Plasma PROTEIN, TOTAL Lab Routine Multiple myeloma not having achieved remission (HCC) 10/30/2023 2:40 PM EDT [facility] Protein [Mass/volume ] in Serum or Plasma PROTEIN, TOTAL Lab Routine Multiple myeloma not having achieved remission (HCC) Stage 3a chronic kidney disease (HCC) 12/24/2023 11:22 AM EDT [facility] Protein [Mass/volume ] in Serum or Plasma PROTEIN, TOTAL Lab Routine Multiple myeloma not having achieved remission (HCC) 01/22/2024 1:05 PM EDT [facility] Protein [Mass/volume ] in Serum or Plasma PROTEIN, TOTAL Lab Routine Multiple myeloma not having achieved remission (HCC) 02/20/2024 3:20 PM [facility] Protein [Mass/volume ] in Serum or Plasma PROTEIN, TOTAL Lab Routine Multiple myeloma not having achieved remission (HCC) Stage 3a chronic kidney disease (HCC) 04/02/2024 2:22 PM EDT [facility] PROTEIN ELECTROPHORE SIS SERUM (P) PROTEIN ELECTROPHORESIS SERUM (P) Lab Routine Multiple myeloma not having achieved remission (HCC) Malaise and fatigue 08/21/2023 10:01 AM [employer] [facility] Work Phone: PROTEIN ELECTROPHORE SIS SERUM (P) PROTEIN ELECTROPHORESIS SERUM (P) Lab Routine Multiple myeloma not having achieved remission (HCC) Stage 3a chronic kidney disease (HCC) Leg swelling Neuropathy 09/19/2023 10:49 AM [facility] Work Phone: PROTEIN ELECTROPHORE SIS SERUM (P) PROTEIN ELECTROPHORESIS SERUM (P) Lab Routine Multiple myeloma not having achieved remission (HCC) 10/30/2023 2:40 PM [facility] PROTEIN ELECTROPHORE SIS SERUM (P) PROTEIN ELECTROPHORESIS SERUM (P) Lab Routine Multiple myeloma not having achieved remission (HCC) 11/26/2023 10:08 AM [facility] PROTEIN ELECTROPHORE SIS SERUM (P) PROTEIN ELECTROPHORESIS SERUM (P) Lab Routine Multiple myeloma not having achieved remission (HCC) Stage 3a chronic kidney disease (HCC) 12/24/2023 11:22 AM [facility] PROTEIN ELECTROPHORE SIS SERUM (P) PROTEIN ELECTROPHORESIS SERUM (P) Lab Routine Multiple myeloma not having achieved remission (HCC) 01/22/2024 1:05 PM [facility] PROTEIN ELECTROPHORE SIS SERUM (P) PROTEIN ELECTROPHORESIS SERUM (P) Lab Routine Multiple myeloma not having achieved remission (HCC) 02/20/2024 3:20 PM [facility] PROTEIN ELECTROPHORE SIS SERUM (P) PROTEIN ELECTROPHORESIS SERUM (P) Lab Routine Multiple myeloma not having achieved remission (HCC) Stage 3a chronic kidney disease (HCC) 04/02/2024 2:22 PM EDT [facility] PROTEIN ELECTROPHORE SIS SERUM W/INTERP PROTEIN ELECTROPHORESIS SERUM W/INTERP Lab Routine Multiple myeloma not having achieved remission (HCC) 05/22/2022 12:30 PM [employer] [facility] Work Phone: PROTEIN ELECTROPHORE SIS SERUM W/INTERP PROTEIN ELECTROPHORESIS SERUM W/INTERP Lab Routine Multiple myeloma not having achieved remission ([facility]) Malaise and fatigue 08/21/2023 10:01 AM [employer] [facility] Work Phone: PROTEIN ELECTROPHORE SIS SERUM W/INTERP PROTEIN ELECTROPHORESIS SERUM W/INTERP Lab Routine Multiple myeloma not having achieved remission (HCC) Stage 3a chronic kidney disease (HCC) Leg swelling Neuropathy 09/19/2023 10:49 AM [facility] Work Phone: PROTEIN ELECTROPHORE SIS SERUM W/INTERP PROTEIN ELECTROPHORESIS SERUM W/INTERP Lab Routine Multiple myeloma not having achieved remission (HCC) 11/26/2023 10:08 AM [facility] Work Phone: PROTEIN ELECTROPHORE SIS SERUM W/INTERP PROTEIN ELECTROPHORESIS SERUM W/INTERP Lab Routine Multiple myeloma not having achieved remission (HCC) 01/22/2024 1:05 PM [facility] PROTEIN ELECTROPHORE SIS SERUM W/INTERP PROTEIN ELECTROPHORESIS SERUM W/INTERP Lab Routine Multiple myeloma not having achieved remission (HCC) 02/20/2024 3:20 PM EDT [facility] PROTEIN ELECTROPHORE SIS SERUM WITH ANI (P) PROTEIN ELECTROPHORESIS SERUM WITH ANI (P) Lab Routine Multiple myeloma not having achieved remission ([facility]) 09/06/2023 10:38 AM [employer] [facility] Work Phone: End: 05-23-2020 Protime-INR Protime-INR Lab STAT One Time for 1 Occurrences starting 05/23/2020 until 05/23/2020 [place], [place] Comment on above: One Time for 1 Occurrences starting 05/02 until 05/23/2020 Protime-INR Protime-INR Lab STAT 05/23/2020 9:[address] [facility] [place] End: 01-05-2022 PSA, Diagnostic [facility] Work Phone: Comment on above: 1 Occurrences starting 01/05/2022 until 01/05/2022 Surgical Pathology [facility], [place] Comment on above: ONE TIME for 1 Occurrences starting 04/01 Release Upon Orderin g for 1 Occurrences starting 09/20/2020 End: 09-02-2019 Surgical Pathology Surgical Pathology Lab Routine Once for 1 Occurrences starting 09/02/2019 until 09/02/2019 [employer] [place] Comment on above: Once for 1 Occurrences starting 09/02/19 until 09/02/2019 End: 05-11-2020 Surgical Pathology Surgical Pathology Lab Routine Once for 1 Occurrences starting 05/11/2020 until 05/11/2020 [facility] [place] Comment on above: Once for 1 Occurrences starting 05/11/20 until 05/11/2020 End: 03-10-2020 Surgical Pathology Surgical Pathology Lab Routine Once for 1 Occurrences starting 03/10/2020 until 03/10/2020 [employer] [facility] Comment on above: Once for 1 Occurrences starting 03/10/20 until 03/10/2020 End: 04-12-2021 SURGICAL PATHOLOGY REPORT SURGICAL PATHOLOGY REPORT Lab Routine Once for 1 Occurrences starting 04/12/2021 until 04/12/2021 [employer] Phone: Comment on above: Once for 1 Occurrences starting 04/12/20 until 04/12/2021 End: 12-01-2021 SURGICAL PATHOLOGY REPORT SURGICAL PATHOLOGY REPORT Lab Routine Once for 1 Occurrences starting 12/01/2021 until 12/01/2021 [employer] Phone: Comment on above: Once for 1 Occurrences starting 12/02/19 until 12/01/2021 End: 09-23-2023 SURGICAL PATHOLOGY REPORT SURGICAL PATHOLOGY REPORT Lab Routine Once for 1 Occurrences starting 09/23/2023 until 09/23/2023 [employer] Comment on above: Once for 1 Occurrences starting 09/23/19 24 until 09/23/2023 Troponin I.cardiac [Mass/Vol] Troponin Lab Timed Now Then Every 6hr until discontinued starting 05/24/2020, 3 completed [facility] [employer] Comment on above: Now Then Every 6hr until discontinued st arting 05/24/2020, 3 completed TYPE AND SCREEN TYPE AND SCREEN Blood Bank Routine 03/19/2022 9:11 AM EDT [employer] Phone: End: 04-06-2019 Urine culture clean catch Urine culture clean catch Microbiology Routine 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) Frequency of urination 1 Occurrences starting 04/06/2019 until 04/06/2019 [facility] [place] Comment on above: 1 Occurrences starting 04/06/2019 until 04/06/2019 Urine culture clean catch Urine culture clean catch Microbiology Routine 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) Frequency of urination 04/06/2019 8:15 AM EDT [facility] Immunizations Immunization Date Immunization Notes Care Provider Fa [facility] 10-01-2023 respiratory syncytia l virus (RSV) vaccine, bivalent (ABRYSVO) Lab/[facility] Work Phone: [facility] 10-01-2023 tetanus toxoid, redu frankie diphtheria toxoid, and acellular pertussis vaccine, adsorbed Lab/[facility] Work Phone: [facility] 04-05-2023 influenza (aIIV4) vaccine, age 65+ yr, quadrivalent, PF (FLUAD QUAD) Rosalee Muniz RN [facility] 04-05-2023 influenza virus vacc ine, unspecified formulation Kanika Aquino RN Work Phone: [facility] 01-07-2023 zoster vaccine recombinant David Molina MD Work Phone: [facility] 10-01-2022 zoster vaccine recombinant David Molina MD Work Phone: [facility] 04-24-2022 influenza, high-dose , quadrivalent vaccine (FLUZONE HIGH DOSE QUADRIVALENT) Isaias Ulloa MD Work Phone: [facility] 04-24-2022 influenza virus vacc ine, unspecified formulation Thi Valera PA-C Work Phone: [facility] 03-25-2022 influenza nasal, unspecified formulation David Molina MD Work Phone: [facility] 03-25-2022 influenza virus vacc ine, unspecified formulation [facility] Work Phone: [facility] 04-04-2021 influenza, high-dose , quadrivalent vaccine (FLUZONE HIGH DOSE QUADRIVALENT) David Molina MD Work Phone: [facility] 03-31-2021 influenza nasal, unspecified formulation David Molina MD Work Phone: [facility] 03-31-2021 influenza virus vacc ine, unspecified formulation Lab/[facility] Work Phone: [facility] 08-13-2020 COVID-19, Moderna, Primary or Immunocompromised, PF, 100mcg/0.5mL Mth Room [facility] Work Phone: 07-16-2020 COVID-19, Moderna, Primary or Immunocompromised, PF, 100mcg/0.5mL Mth Room [facility] Work Phone: 04-06-2020 influenza, high-dose , quadrivalent vaccine (FLUZONE HIGH DOSE QUADRIVALENT) David Molina MD Work Phone: [facility] 04-06-2020 pneumococcal polysaccharide vaccine, 23 valent David Molina MD Work Phone: [facility] 03-31-2020 influenza nasal, unspecified formulation David Molina MD Work Phone: [facility] 03-31-2020 influenza virus vacc ine, unspecified formulation Lab/[facility] Work Phone: [facility] 04-02-2019 influenza nasal, unspecified formulation David Molina MD Work Phone: [facility] 04-02-2019 influenza virus vacc ine, unspecified formulation [facility] 04-02-2019 influenza, high dose seasonal, preservative-free David Molina MD Work Phone: [facility] 04-10-2018 AS03 adjuvant Kanika Aquino RN Work Phone: [facility] 04-10-2018 Seasonal trivalent influenza vaccine, adjuvanted, preservative free David Molina MD Work Phone: [facility] 03-01-2018 influenza nasal, unspecified formulation David Molina MD Work Phone: [facility] 03-01-2018 influenza virus vacc ine, unspecified formulation [facility] [employer] Work Phone: [facility] 04-25-2017 pneumococcal polysaccharide vaccine, 23 valent David Molina MD Work Phone: [facility] 04-18-2017 influenza, high dose seasonal, preservative-free David Molina MD Work Phone: [facility] 04-18-2017 influenza, injectabl e, quadrivalent, preservative free David Molina MD Work Phone: [facility] 03-31-2017 influenza nasal, unspecified formulation David Molina MD Work Phone: [facility] 03-31-2017 influenza virus vacc ine, unspecified formulation Lab/[facility] Work Phone: [facility] 04-03-2016 influenza, seasonal, injectable, preservative free David Molina MD Work Phone: [facility] 04-02-2016 influenza, high dose seasonal, preservative-free David Molina MD Work Phone: [facility] 03-31-2016 influenza nasal, unspecified formulation David Molina MD Work Phone: [facility] 03-31-2016 influenza virus vacc ine, unspecified formulation [facility] Work Phone: [facility] 11-09-2015 pneumococcal conjuga te vaccine, 13 valent David Molina MD Work Phone: [facility] 05-01-2015 influenza, high dose seasonal, preservative-free David Molina MD Work Phone: [facility] 03-31-2015 influenza nasal, unspecified formulation David Molina MD Work Phone: [facility] 03-31-2015 influenza virus vacc ine, unspecified formulation [facility] [employer] Work Phone: [facility] 03-31-2014 influenza nasal, unspecified formulation David Molina MD Work Phone: [facility] 03-31-2014 influenza virus vacc ine, unspecified formulation Lab/[facility] Work Phone: [facility] 10-05-2013 diphtheria, tetanus toxoids and acellular pertussis vaccine, unspecified formulation David Molina MD Work Phone: [facility] 04-21-2013 influenza, seasonal, injectable David Molina MD Work Phone: [facility] 03-31-2013 influenza nasal, unspecified formulation David Molina MD Work Phone: [facility] 03-31-2013 influenza virus vacc ine, unspecified formulation Lab/[place] Work Phone: [facility] 07-01-2012 pneumococcal polysaccharide vaccine, 23 valent Davdi Molina MD Work Phone: [facility] 07-01-2012 pneumococcal vaccine , unspecified formulation David Molina MD Work Phone: [facility] 05-01-2012 influenza nasal, unspecified formulation David Molina MD Work Phone: [facility] 05-01-2012 influenza virus vacc ine, unspecified formulation [facility] [employer] Work Phone: [facility] 05-12-2011 influenza nasal, unspecified formulation David Molina MD Work Phone: [facility] 05-12-2011 influenza virus vacc ine, unspecified formulation [facility] [place] 03-31-2011 influenza nasal, unspecified formulation David Molina MD Work Phone: [facility] 03-31-2011 influenza virus vacc ine, unspecified formulation [facility] [employer] Work Phone: [facility] 04-11-2010 influenza nasal, unspecified formulation David Molina MD Work Phone: [facility] 04-11-2010 influenza virus vacc ine, unspecified formulation [facility] 03-31-2010 influenza nasal, unspecified formulation David Molina MD Work Phone: [facility] 03-31-2010 influenza virus vacc ine, unspecified formulation Lab/[employer] Work Phone: [facility] 08-30-2009 pneumococcal vaccine , unspecified formulation David Molina MD Work Phone: [facility] 05-12-2009 influenza nasal, unspecified formulation David Molina MD Work Phone: [facility] 05-12-2009 influenza virus vacc ine, unspecified formulation Lab/[facility] Work Phone: [facility] 05-01-2009 influenza nasal, unspecified formulation David Molina MD Work Phone: [facility] 05-01-2009 influenza virus vacc ine, unspecified formulation [facility] Work Phone: [facility] 05-12-2008 pneumococcal polysaccharide vaccine, 23 valent [facility], [place] 05-01-2008 influenza nasal, unspecified formulation David Molina MD Work Phone: [facility] 05-01-2008 influenza virus vacc ine, unspecified formulation [facility] Work Phone: [facility] 03-31-2008 influenza nasal, unspecified formulation David Molina MD Work Phone: [facility] 03-31-2008 influenza virus vacc ine, unspecified formulation Lab/[place] Work Phone: [facility] 10-09-2007 pneumococcal vaccine , unspecified formulation David Molina MD Work Phone: [facility] 03-31-2007 influenza nasal, unspecified formulation David Molina MD Work Phone: [facility] 03-31-2007 influenza virus vacc ine, unspecified formulation [facility] [place] [facility] Work Phone: [facility] 05-01-2006 influenza nasal, unspecified formulation David Molina MD Work Phone: [facility] 05-01-2006 influenza virus vacc ine, unspecified formulation [facility] [place] Work Phone: [facility] 03-31-2005 influenza nasal, unspecified formulation David Molina MD Work Phone: [facility] 03-31-2005 influenza virus vacc ine, unspecified formulation [facility] [place] Work Phone: [facility] 09-29-2004 TD(adult) unspecifie d formulation David Molina MD Work Phone: [facility] 07-01-1994 TD(adult) unspecifie d formulation David Molina MD Work Phone: [facility] Payers Date Payer Category Payer Self-pay 2014 Medicare MEDICARE MEDICAR E PART A AND B xxxxxxxxxxx 2014-Present [phone] [place] [address] xxxxxxxxxxx [id number] .[id number] 2014 Unknown [employer] [place] [employer] [place] MEDICARE SUPP [id number] 2014-Present [phone] ATTN INDIVIDUAL CLAIMS [id number] [employer] [place], [place] [address] xxxxxx-xx [id number] .[id number] 2009 Unknown [employer] [place] [employer] [place] MEDICARE SUPPLEMENT [id number] 2009-Present [phone] [address] [employer] [place], [place] [address] Indemnity [id number] 1.2.840.885736.1.13.159.2.7.3 .[id number] 2009 Unknown [id number]. 1.13.159.2.7.3 .602872.315 2009 Unknown [id number] 1.2.840.106019.1.13.239.2.7.3 .651778.315 2007 Medicare MEDICARE MEDICAR E A AND B [id number] 2007-Present [phone] [address] [address] [place] [address] Medicare [id number] 1.2.840.682650.1.13.159.2.7.3 .[id number] 2007 Medicare [id number]. 1.13.159.2.7.3 .514658.315 1959 Medicare [id number] 1.2.840.884484.1.13.239.2.7.3 .244431.315 1959 Unknown [id number] 1942 Unknown [id number] 2.16.840.1.405818.3.579.2.593 1942 Unknown [id number] 2.16.840.1.008949.3.579.2.594 1942 Unknown [id number] 2.16.840.1.945602.3.579.2.175 1942 Unknown [id number] 2.16.840.1.293418.3.579.2.175 1942 Unknown [id number] 2.16.840.1.766732.3.579.2.175 1942 Unknown [id number] 2.16.840.1.436282.3.579.2.175 1942 Unknown [id number] 2.16.840.1.639790.3.579.2.125 9 1942 Unknown [id number] 2.16.840.1.038897.3.579.2.125 9 1942 Unknown [id number] 2.16.840.1.861279.3.579.2.196 1942 Unknown [id number] 2.16.840.1.972438.3.579.2.196 1942 Unknown [id number] 2.16.840.1.075012.3.579.2.196 1942 Unknown [id number] 2.16.840.1.788859.3.579.2.134 7 1942 Unknown [id number] 2.16.840.1.442333.3.579.2.128 6 1942 Unknown [id number] 2.16.840.1.605075.3.579.2.128 6 1942 Unknown [id number] 2.16.840.1.788067.3.579.2.128 6 1942 Unknown [id number] 2.16.840.1.147788.3.579.2.128 6 1942 Unknown [id number] 2.16.840.1.004340.3.579.2.128 6 1942 Unknown [id number] 2.16.840.1.424608.3.579.2.128 6 1942 Unknown [id number] 2.16.840.1.549502.3.579.2.128 6 1942 Unknown [id number] 2.16.840.1.511757.3.579.2.128 6 1942 Unknown [id number] 2.16.840.1.614862.3.579.2.128 6 1942 Unknown [id number] 2.16.840.1.317203.3.579.2.128 6 1942 Unknown [id number] 2.16.840.1.656543.3.579.2.128 6 1942 Unknown [id number] 2..840.1.703684.3.579.2.128 6 1942 Unknown [id number] 2.840.1.335075.3.579.2.128 6 1942 Unknown [id number] 2.840.1.187175.3.579.2.173 1942 Unknown [id number] 2.840.1.819538.3.579.2.173 1942 Unknown [id number] 2.840.1.541514.3.579.2.173 1942 Unknown [id number] 2.840.1.126676.3.579.2.173 1942 Unknown [id number] 2.840.1.022341.3.579.2.173 Medicare Medicare Rehab-IP Part A [id number] Unknown [id number] Unknown [id number] 2.16840.1.673699.3.579.2.531 Unknown [id number] 2.840.1.218123.3.579.2.531 Unknown [id number] 2.840.1.429060.3.579.2.531 Unknown [id number] 2.840.1.319601.3.579.2.531 Social History Date Type Detail Facility Start: 02-18-2019 End: 02-20-2022 Tobacco smoking status NHIS Former smoker [place] End: 07-17-1981 History of tobacco use Current [place] End: 07-17-1981 History of tobacco use Cigarette Smoker [place] Start: 02-18-2019 End: 01-22-2024 Alcohol intake Yes [facility] Start: 05-21-2018 Alcohol Comment daily- 2 drinks [place], [place] Start: 1940 Sex Assigned At Not on file M [place], [place] Start: 05-04-2019 End: 04-02-2024 Alcohol intake Current drinker of alcohol (finding) [place] Start: 12-23-2019 End: 01-22-2022 Tobacco use and exposure Former user [place] Start: 09-17-2021 End: 05-22-2022 Exposure to SARS-CoV-2 (event) Not sure [place] Exposure to SARS-CoV-2 (event) Unable to assess [place] Start: 11-16-2020 End: 01-22-2024 Alcohol intake [facility] Start: 09-21-2021 End: 02-20-2022 Tobacco use and exposure Smokeless tobacco non-user [facility] Start: 03-20-2022 History SDOH Alcohol Frequency 1 [facility] [employer] Work Phone: Start: 03-20-2022 History SDOH Alcohol Std Drinks 0 [facility] [employer] Work Phone: Tobacco smoking status [facility] Tobacco smoking consumption unknown [facility] Start: 1940 Sex Assigned At Male F [facility] Adult Depression Screening Assessment 0 [facility] How often to you hav e a drink containing alcohol? Never [facility] [employer] NEGATED: Highlighted rowStart: NINF History of tobacco use Passive smoker [facility] Medical Equipment Procedure Code Equipment Code Equipment Origin al Text Equipment Identifier Dates Insertion of central venous catheter (CVC) with subcutaneous port for chemotherapy Vascular port/catheter [id number] FDA Start: 07-09-2023 Stent Uret Hydrp l Coat W/O [id number] Start: 05-26-2018 Goals Date Patient Goal Desired Activity /State Functional Status Date Assessment Result Facility 03-29-2024 Functional status Patient is Pro gressing Toward Baseline [facility] Work Phone: Mental Status Date Assessment Result Facility 03-29-2024 Cognitive function Cognitive Sta tus Patient is Progressing Toward Baseline [facility] Work Phone: Clinical Notes 12-26-2020 to 04-02-2024 Note Date & Type Note Facility 04-02-2024 Note [facility] 03-28-2024 Progress note Note Date/Time March 28, 2024 10:43am [facility] [address] [place] [address] Physiatry(Rehab) Progress Note Signed Patient: Missy Salgado MR#: [id number] : 1940 Acct:[id number] Age/Sex: 84 / M Adm Date: 4 Loc: Room: [address] [place] [address] Type: ADM IN Attending Dr: Luis Ramon MD Copies to: ~ Date of Service: 03/28/2024 Subjective Subjective Narrative: Mr. Salgado is a 84 year old male with PMH of multiple myeloma, Afib with Watchmandevice, [place] with stent, and HTN, admitted to [facility] inpatient rehab from [facility] after a fall from a barstool resulting in a T2 compression fracture with small prevertebral hematoma. States he turned around and fell off the barstool. He is unsure if he was dizzy or symptomatic at the time of the fall. He was initially evaluated in [place] [facility]. Fracture thought to be unstable and [facility] He was evaluated by neurosurgery and underwent nonoperative management. No bracing was recommended. Imaging was also significant aspiration pneumonia. He states that Dr. Matthew, hisoncologist, discontinued his doses of bortezomib at his last appointment. Patient noted to have experienced a syncopal episode with LOC at the time of thefall. Cardiology was consulted at [facility]. Metoprolol was initiated. Dose of furosemide was adjusted. Plan for outpatient Holter monitor. Interval History: Patient seen and evaluated today. Resting in bed. No distress. Admits to frequent urination, but this is a chronic issue. On Lasix. No other major concerns today. DC planned for tomorrow. Review of Systems Review of Systems All other systems reviewed & are negative unless noted below or in HPI Exam Physical Exam Vital Signs: Temp Pulse Resp BP Pulse Ox O2 Del Method 97.4 F L 83 16 101/68 98 Room Air 03/28/24 05:00 03/28/24 05:00 03/28/24 05:00 03/28/24 05:00 03/28/24 05:00 03/28/24 10:20 Narrative: General: Awake, A&O x 3, pleasant, cooperative, well nourished. Sitting up in wheelchair HENT: NC, AT Eyes: No scleral icterus Neck: Supple Cardio: RRR, no murmurs, rubs or gallops. Extremities well perfused Respiratory: Basilar crackles, No evidence of respiratory distress GI: Soft, nontender, nondistended. Normal Bowel sounds x4 quadrants Neuro: CN II-XII intact. Strength 5/5 left upper and lower extremities. Moves all extremities spontaneously. Sensation intact bilterally. Extremities: No edema, erythema, cyanosis Objective Labs 03/24/24 06:18 03/24/24 06:18 Medications and Allergies Allergies and Active Meds: Allergies Avahlni-PWM-AwS Reductase Inhibitor Adverse Reaction (Mild, Verified 01/07/24 15:26) Muscle Pain Active Medications Generic Name Dose Route Start Last Admin Trade Name Freq PRN Reason Stop Dose Admin Acetaminophen 500 mg 03/16/24 18:13 Acetaminophen 500 Mg Tablet PO QHS PRN sleep Acetaminophen 1,000 mg 03/17/24 14:00 03/28/24 10:03 Acetaminophen 500 Mg Tablet PO 03/17/25 13:59 1,000 mg TID SHAE Administration Acyclovir 400 mg 03/16/24 21:30 03/27/24 20:03 Acyclovir 400 Mg Tablet PO 400 mg DAILY@2130 SHAE Administration Al Hydrox/Mg Hydrox/Simethicone 30 ml 03/16/24 18:18 Mag Hydrox/Al Hydrox/Simeth 30 Ml Udc PO 03/16/25 18:17 Q4H PRN Indigestion Aspirin 81 mg 03/17/24 09:00 03/28/24 10:02 Aspirin 81 Mg Tablet. PO 03/17/25 08:59 81 mg DAILY SHAE Administration Bisacodyl 10 mg 03/16/24 18:18 Bisacodyl 10 Mg Supp.Rect DE 03/16/25 18:17 DAILY PRN Constipation Carbidopa/Levodopa 1 tab 03/24/24 21:00 03/28/24 10:03 Carbidopa/Levodopa 25-100 Mg 1 Tab Tablet PO 03/24/25 20:59 1 tab BID SHAE Administration Diphenhydramine HCl 25 mg 03/16/24 19:26 03/25/24 21:18 Diphenhydramine 25 Mg Capsule PO 03/16/25 19:25 25 mg QHS PRN Administration sleep Docusate Sodium 100 mg 03/16/24 18:18 Docusate 100 Mg Capsule PO 03/16/25 18:17 BID PRN Constipation Docusate Sodium 283 mg 03/16/24 18:18 Docusate Enema 283 Mg/5 Ml Enema DE 03/16/25 18:17 DAILY PRN Constipation Fish Oil 1,000 mg 03/17/24 09:00 03/28/24 10:02 Gary-3/Fish Oil 1,000 Mg Capsule PO 03/17/25 08:59 1,000 mg DAILY SHAE Administration Furosemide 20 mg 03/18/24 09:00 03/27/24 10:20 Furosemide 20 Mg Tablet PO 03/18/25 08:59 20 mg MoWeFr@0900 SHAE Administration Heparin Sodium (Porcine) 500 unit 03/23/24 22:00 03/28/24 05:16 Heparin-Lock 500 Unit/5 Ml Syringe IV-PUSH 03/23/25 21:59 500 unit Q8H SHAE Administration Lact Acid/Bifidobact/Lact Paracas/Streptoc Th 1 cap 03/17/24 09:00 03/28/24 10:02 L. Acidophilus/Strept/La P-Brock 1 Cap Capsule PO 03/17/25 08:59 1 cap DAILY SHAE Administration Lactulose 30 gm 03/16/24 18:18 Lactulose 20 Gm/30 Ml Udc PO 03/16/25 18:17 DAILY PRN Constipation Metoprolol Succinate 25 mg 03/17/24 09:00 03/28/24 10:02 Metoprolol Succinate 25 Mg Tab.Er.24h PO 03/17/25 08:59 25 mg DAILY SHAE Administration Multivitamins 1 tab 03/17/24 09:00 03/28/24 10:02 Multivitamin 1 Tab Tablet PO 03/17/25 08:59 1 tab DAILY SHAE Administration Pantoprazole Sodium 40 mg 03/19/24 09:00 03/28/24 10:02 Pantoprazole 40 Mg Tablet.Dr PO 03/19/25 08:59 40 mg DAILY SHAE Administration Potassium Chloride 20 meq 03/16/24 21:00 03/28/24 10:02 Potassium Chloride Er 20 Meq Tab.Er.Prt PO 03/16/25 20:59 20 meq BID SHAE Administration Sennosides 17.2 mg 03/26/24 11:54 Sennosides 8.6 Mg Tablet PO 03/26/25 11:53 DAILY@12 PRN If no BM in 2 days Sodium Chloride 0 ml 03/16/24 18:18 03/24/24 06:15 Sodium Chloride 0.9 % 10 Ml Syringe IV-PUSH 03/16/25 18:17 10 ml PRN PRN Administration Flush Sodium Chloride 10 ml 03/23/24 22:00 03/28/24 05:16 Sodium Chloride 0.9 % 10 Ml Syringe IV-PUSH 03/23/25 21:59 10 ml Q8H SHAE Administration Vitamin B Complex/Vit C/Folic Acid 1 tab 03/17/24 09:00 03/28/24 10:02 Folic Acid/Vit Bcomp,C 1 Tab Tablet PO 03/17/25 08:59 1 tab DAILY SHAE Administration Assessment/Plan Assessment/Plan (1) T2 vertebral fracture: Plan: PT to improve pt's strength, endurance, bed mobility, transfers (sit-stand), standing balance, gait quality on level surfaces and stairs, coordination and functional ADL skills. Will also work to improve pt's safety awareness during transfers and ambulation. OT for basic ADL re-training (bathing, dressing, toileting, continence, grooming, feeding, transferring), to increase activity tolerance and functional mobility and to evaluate for adaptive and assistive devices. Will work to improve pt's endurance and educate pt on fall prevention and energy conservationtechniques-pacing strategies and proper breathing techniques during functional tasks. Patient education Pressure ulcer prophylaxis; encourage mobilization, frequent postural changes, pressure-relief techniques DVT prophylaxis Encourage deep breathing exercise incentive spirometry. Monitor bladder. Toileting schedule. Continue current bladder management, with scans as needed and CIC if needed. Start bowel care program every day to obtain continence, prevent ileus. Maintain fall precautions Gait and balance retraining Provision of the necessary gait aids and functional adaptive equipment to enhance the patient's a functional zoroastrian Encourage deep breathing exercises and incentive spirometry RD evaluation Ensure adequate nutrition and hydration Discharge planning. (2) Multiple myeloma: Qualifiers: Multiple myeloma remission status: not in remission Qualified Code(s): C90.00 - Multiple myeloma not having achieved remission (3) COVID-19: (4) Vasovagal syncope: (5) Paroxysmal atrial fibrillation: (6) Coronary artery disease involving [place] coronary artery of [place] heart without angina pectoris: (7) Presence of Watchman left atrial appendage closure device: (8) Atrial fibrillation: (9) Aspiration pneumonia: (10) Pain due to fracture: (11) Esophageal dysphagia: Plan 84-year-old male with PMH of multiple myeloma, obesity, Afib with Watchman device, [place] with stent, and HTN admitted after T2 compression fracture with smallprevertebral hematoma admitted to inpatient rehabilitation. -Continue Sinemet at current dose. Has close outpatient follow-up with neurology, to give opinion about parkinsonian symptoms and make decision about continuing that going forward. -No major concerns today. DC tomorrow Pain control: Tylenol 3 times daily Bowel and bladder: continent Skin: No pressure ulcers on admission. Sleep: Optimize sleep/wake cycle. DVT prophylaxis: SCD's Functional status: Impaired see PT/OT. Discharge planning: On Saturday. Patient was personally seen by me, Dr. Lyman, on the day of encounter, reviewed the history and the relevant portions of the chart, including current orders, allied health and method consultant notes, labs/imaging and performed lawler elements of exam and I formulated the plan of care and facilitated the medical decision making. I completed a substantive portion of this encounter, the medical decision makingportion of this note in its entirety, including Allied health note review, nursing note review, method consultant note review, discussion with nursing and case management, and more than 50% of my time was spent on counseling and coordination of care, time spent 25 minutes Documented By: Brayden Lyman MD [id number] Signed By: <Electronically signed by Brayden Lyman MD> 03/28/24 1043 [facility] Work Phone: 1(532) 644-891509-27-2024 Progress note Author Luis Ramon [facility] March 27, 2024 1:16pm Note Date/Time March 27, 2024 10:51am [facility] [address] [place] [address] Physiatry(Rehab) Progress Note Signed Patient: Missy Salgado MR#: [id number] : 1940 Acct:[id number] Age/Sex: 84 / M Adm Date: 4 Loc: 5T Room: 7S1574-7 Type: ADM IN Attending Dr: Luis Ramon MD Copies to: ~ Date of Service: 03/27/2024 Subjective Subjective Narrative: Mr. Salgado is a 84 year old male with PMH of multiple myeloma, Afib with Watchmandevice, [place] with stent, and HTN, admitted to [facility] inpatient rehab from [facility] after a fall from a barstool resulting in a T2 compression fracture with small prevertebral hematoma. States he turned around and fell off the barstool. He is unsure if he was dizzy or symptomatic at the time of the fall. He was initially evaluated in [place] [facility]. Fracture thought to be unstable and [facility] He was evaluated by neurosurgery and underwent nonoperative management. No bracing was recommended. Imaging was also significant aspiration pneumonia. He states that Dr. Matthew, hisoncologist, discontinued his doses of bortezomib at his last appointment. Patient noted to have experienced a syncopal episode with LOC at the time of thefall. Cardiology was consulted at [facility]. Metoprolol was initiated. Dose of furosemide was adjusted. Plan for outpatient Holter monitor. Interval History: Tolerating Sinemet without complication. His blood pressure is stable. He still has some difficulty with mobility which is premorbid. Plan is for discharge home on Saturday. Review of Systems Review of Systems All other systems reviewed & are negative unless noted below or in HPI Exam Physical Exam Vital Signs: Temp Pulse Resp BP Pulse Ox O2 Del Method 97.4 F L 85 16 130/86 92 L Room Air 03/27/24 05:00 03/27/24 05:00 03/27/24 05:00 03/27/24 05:00 03/27/24 05:00 03/27/24 05:00 Narrative: General: Awake, A&O x 3, pleasant, cooperative, well nourished. Sitting up in wheelchair HENT: NC, AT Eyes: No scleral icterus Neck: Supple Cardio: RRR, no murmurs, rubs or gallops. Extremities well perfused Respiratory: Basilar crackles, No evidence of respiratory distress GI: Soft, nontender, nondistended. Normal Bowel sounds x4 quadrants Neuro: CN II-XII intact. Strength 5/5 left upper and lower extremities. Moves all extremities spontaneously. Sensation intact bilterally. Extremities: No edema, erythema, cyanosis Objective Labs 03/24/24 06:18 03/24/24 06:18 Medications and Allergies Allergies and Active Meds: Allergies Yizczda-BPI-KwU Reductase Inhibitor Adverse Reaction (Mild, Verified 01/07/24 15:26) Muscle Pain Active Medications Generic Name Dose Route Start Last Admin Trade Name Freq PRN Reason Stop Dose Admin Acetaminophen 500 mg 03/16/24 18:13 Acetaminophen 500 Mg Tablet PO QHS PRN sleep Acetaminophen 1,000 mg 03/17/24 14:00 03/27/24 10:21 Acetaminophen 500 Mg Tablet PO 03/17/25 13:59 1,000 mg TID SHAE Administration Acyclovir 400 mg 03/16/24 21:30 03/26/24 21:46 Acyclovir 400 Mg Tablet PO 400 mg DAILY@2130 SHAE Administration Al Hydrox/Mg Hydrox/Simethicone 30 ml 03/16/24 18:18 Mag Hydrox/Al Hydrox/Simeth 30 Ml Udc PO 03/16/25 18:17 Q4H PRN Indigestion Aspirin 81 mg 03/17/24 09:00 03/27/24 10:20 Aspirin 81 Mg Tablet. PO 03/17/25 08:59 81 mg DAILY SHAE Administration Bisacodyl 10 mg 03/16/24 18:18 Bisacodyl 10 Mg Supp.Rect DE 03/16/25 18:17 DAILY PRN Constipation Carbidopa/Levodopa 1 tab 03/24/24 21:00 03/27/24 10:19 Carbidopa/Levodopa 25-100 Mg 1 Tab Tablet PO 03/24/25 20:59 1 tab BID SHAE Administration Diphenhydramine HCl 25 mg 03/16/24 19:26 03/25/24 21:18 Diphenhydramine 25 Mg Capsule PO 03/16/25 19:25 25 mg QHS PRN Administration sleep Docusate Sodium 100 mg 03/16/24 18:18 Docusate 100 Mg Capsule PO 03/16/25 18:17 BID PRN Constipation Docusate Sodium 283 mg 03/16/24 18:18 Docusate Enema 283 Mg/5 Ml Enema DE 03/16/25 18:17 DAILY PRN Constipation Fish Oil 1,000 mg 03/17/24 09:00 03/27/24 10:20 Gary-3/Fish Oil 1,000 Mg Capsule PO 03/17/25 08:59 1,000 mg DAILY SHAE Administration Furosemide 20 mg 03/18/24 09:00 03/27/24 10:20 Furosemide 20 Mg Tablet PO 03/18/25 08:59 20 mg MoWeFr@0900 SHAE Administration Heparin Sodium (Porcine) 500 unit 03/23/24 22:00 03/27/24 06:38 Heparin-Lock 500 Unit/5 Ml Syringe IV-PUSH 03/23/25 21:59 500 unit Q8H SHAE Administration Lact Acid/Bifidobact/Lact [place]acas/Streptoc Th 1 cap 03/17/24 09:00 03/27/24 10:20 L. Acidophilus/Strept/La P-Brock 1 Cap Capsule PO 03/17/25 08:59 1 cap DAILY SHAE Administration Lactulose 30 gm 03/16/24 18:18 Lactulose 20 Gm/30 Ml Udc PO 03/16/25 18:17 DAILY PRN Constipation Metoprolol Succinate 25 mg 03/17/24 09:00 03/27/24 10:20 Metoprolol Succinate 25 Mg Tab.Er.24h PO 03/17/25 08:59 25 mg DAILY SHAE Administration Multivitamins 1 tab 03/17/24 09:00 03/27/24 10:20 Multivitamin 1 Tab Tablet PO 03/17/25 08:59 1 tab DAILY SHAE Administration Pantoprazole Sodium 40 mg 03/19/24 09:00 03/27/24 10:20 Pantoprazole 40 Mg Tablet.Dr PO 03/19/25 08:59 40 mg DAILY SHAE Administration Potassium Chloride 20 meq 03/16/24 21:00 03/27/24 10:20 Potassium Chloride Er 20 Meq Tab.Er.Prt PO 03/16/25 20:59 20 meq BID SHAE Administration Sennosides 17.2 mg 03/26/24 11:54 Sennosides 8.6 Mg Tablet PO 03/26/25 11:53 DAILY@12 PRN If no BM in 2 days Sodium Chloride 0 ml 03/16/24 18:18 03/24/24 06:15 Sodium Chloride 0.9 % 10 Ml Syringe IV-PUSH 03/16/25 18:17 10 ml PRN PRN Administration Flush Sodium Chloride 10 ml 03/23/24 22:00 03/27/24 06:39 Sodium Chloride 0.9 % 10 Ml Syringe IV-PUSH 03/23/25 21:59 10 ml Q8H SHAE Administration Vitamin B Complex/Vit C/Folic Acid 1 tab 03/17/24 09:00 03/27/24 10:19 Folic Acid/Vit Bcomp,C 1 Tab Tablet PO 03/17/25 08:59 1 tab DAILY SHAE Administration Assessment/Plan Assessment/Plan (1) T2 vertebral fracture: Plan: PT to improve pt's strength, endurance, bed mobility, transfers (sit-stand), standing balance, gait quality on level surfaces and stairs, coordination and functional ADL skills. Will also work to improve pt's safety awareness during transfers and ambulation. OT for basic ADL re-training (bathing, dressing, toileting, continence, grooming, feeding, transferring), to increase activity tolerance and functional mobility and to evaluate for adaptive and assistive devices. Will work to improve pt's endurance and educate pt on fall prevention and energy conservationtechniques-pacing strategies and proper breathing techniques during functional tasks. Patient education Pressure ulcer prophylaxis; encourage mobilization, frequent postural changes, pressure-relief techniques DVT prophylaxis Encourage deep breathing exercise incentive spirometry. Monitor bladder. Toileting schedule. Continue current bladder management, with scans as needed and CIC if needed. Start bowel care program every day to obtain continence, prevent ileus. Maintain fall precautions Gait and balance retraining Provision of the necessary gait aids and functional adaptive equipment to enhance the patient's a functional zoroastrian Encourage deep breathing exercises and incentive spirometry RD evaluation Ensure adequate nutrition and hydration Discharge planning. (2) Multiple myeloma: Qualifiers: Multiple myeloma remission status: not in remission Qualified Code(s): C90.00 - Multiple myeloma not having achieved remission (3) COVID-19: (4) Vasovagal syncope: (5) Paroxysmal atrial fibrillation: (6) Coronary artery disease involving [place] coronary artery of [place] heart without angina pectoris: (7) Presence of Watchman left atrial appendage closure device: (8) Atrial fibrillation: (9) Aspiration pneumonia: (10) Pain due to fracture: (11) Esophageal dysphagia: Plan 84-year-old male with PMH of multiple myeloma, obesity, Afib with Watchman device, [place] with stent, and HTN admitted after T2 compression fracture with smallprevertebral hematoma admitted to inpatient rehabilitation. -Continue Sinemet at current dose. Has close outpatient follow-up with neurology, to give opinion about parkinsonian symptoms and make decision about continuing that going forward. Pain control: Tylenol 3 times daily Bowel and bladder: continent Skin: No pressure ulcers on admission. Sleep: Optimize sleep/wake cycle. DVT prophylaxis: SCD's Functional status: Impaired see PT/OT. Discharge planning: On Saturday. Patient was personally seen by me, Dr. Ramon, on the day of encounter, reviewed the history and the relevant portions of the chart, including current orders, allied health and method consultant notes, labs/imaging and performed lawler elements of exam and I formulated the plan of care and facilitated the medical decision making. I completed a substantive portion of this encounter, the medical decision makingportion of this note in its entirety, including Allied health note review, nursing note review, method consultant note review, discussion with nursing and case management, and more than 50% of my time was spent on counseling and coordination of care, time spent 35 minutes Documented By: Luis Ramon MD 03/27/24 1791 Signed By: <Electronically signed by Luis Ramon MD> 03/27/24 6556 [facility] Work Phone: 1(967) 797-822009-26-2024 Progress note Author Luis Ramon [facility] March 26, 2024 2:29pm Note Date/Time March 25, 2024 2:30pm [facility] [address] [place] [address] Physiatry(Rehab) Progress Note Signed Patient: Missy Salgado MR#: [id number] : 1940 Acct:[id number] Age/Sex: 84 / M Adm Date: 4 Loc: 5T Room: 7X7642-3 Type: ADM IN Attending Dr: Luis Ramon MD Copies to: ~ Date of Service: 03/25/2024 Subjective Subjective Narrative: Mr. Salgado is a 84 year old male with PMH of multiple myeloma, Afib with Watchmandevice, [place] with stent, and HTN, admitted to [facility] inpatient rehab from [facility] after a fall from a barstool resulting in a T2 compression fracture with small prevertebral hematoma. States he turned around and fell off the barstool. He is unsure if he was dizzy or symptomatic at the time of the fall. He was initially evaluated in [place]. Fracture thought to be unstable and [facility] He was evaluated by neurosurgery and underwent nonoperative management. No bracing was recommended. Imaging was also significant aspiration pneumonia. He states that Dr. Matthew, hisoncologist, discontinued his doses of bortezomib at his last appointment. Patient noted to have experienced a syncopal episode with LOC at the time of thefall. Cardiology was consulted at [facility]. Metoprolol was initiated. Dose of furosemide was adjusted. Plan for outpatient Holter monitor. History: Patient and spouse agreeable to Sinemet. This was started. Will monitor progress with therapy. Walking short distances and able to do some stairs, contact-guard assist. Review of Systems Review of Systems All other systems reviewed & are negative unless noted below or in HPI Exam Physical Exam Vital Signs: Temp Pulse Resp BP Pulse Ox O2 Del Method 97.9 F 82 16 101/68 96 Room Air 03/25/24 05:00 03/25/24 05:00 03/25/24 05:00 03/25/24 05:00 03/25/24 05:00 03/25/24 07:30 Narrative: General: Awake, A&O x 3, pleasant, cooperative, well nourished. Sitting up in wheelchair HENT: NC, AT Eyes: No scleral icterus Neck: Supple Cardio: RRR, no murmurs, rubs or gallops. Extremities well perfused Respiratory: Basilar crackles, No evidence of respiratory distress GI: Soft, nontender, nondistended. Normal Bowel sounds x4 quadrants Neuro: CN II-XII intact. Strength 5/5 left upper and lower extremities. Moves all extremities spontaneously. Sensation intact bilterally. Extremities: No edema, erythema, cyanosis Objective Labs 03/24/24 06:18 03/24/24 06:18 Medications and Allergies Allergies and Active Meds: Allergies Uqbwfvr-AKX-IwZ Reductase Inhibitor Adverse Reaction (Mild, Verified 01/07/24 15:26) Muscle Pain Active Medications Generic Name Dose Route Start Last Admin Trade Name Freq PRN Reason Stop Dose Admin Acetaminophen 500 mg 03/16/24 18:13 Acetaminophen 500 Mg Tablet PO QHS PRN sleep Acetaminophen 1,000 mg 03/17/24 14:00 03/25/24 10:03 Acetaminophen 500 Mg Tablet PO 03/17/25 13:59 1,000 mg TID SHAE Administration Acyclovir 400 mg 03/16/24 21:30 03/24/24 21:14 Acyclovir 400 Mg Tablet PO 400 mg DAILY@2130 SHAE Administration Al Hydrox/Mg Hydrox/Simethicone 30 ml 03/16/24 18:18 Mag Hydrox/Al Hydrox/Simeth 30 Ml Udc PO 03/16/25 18:17 Q4H PRN Indigestion Aspirin 81 mg 03/17/24 09:00 03/25/24 10:03 Aspirin 81 Mg Tablet.Dr PO 03/17/25 08:59 81 mg DAILY SHAE Administration Bisacodyl 10 mg 03/16/24 18:18 Bisacodyl 10 Mg Supp.Rect DE 03/16/25 18:17 DAILY PRN Constipation Carbidopa/Levodopa 1 tab 03/24/24 21:00 03/25/24 10:02 Carbidopa/Levodopa 25-100 Mg 1 Tab Tablet PO 03/24/25 20:59 1 tab BID SHAE Administration Diphenhydramine HCl 25 mg 03/16/24 19:26 03/23/24 21:16 Diphenhydramine 25 Mg Capsule PO 03/16/25 19:25 25 mg QHS PRN Administration sleep Docusate Sodium 100 mg 03/16/24 18:18 Docusate 100 Mg Capsule PO 03/16/25 18:17 BID PRN Constipation Docusate Sodium 283 mg 03/16/24 18:18 Docusate Enema 283 Mg/5 Ml Enema DE 03/16/25 18:17 DAILY PRN Constipation Fish Oil 1,000 mg 03/17/24 09:00 03/25/24 10:03 Gary-3/Fish Oil 1,000 Mg Capsule PO 03/17/25 08:59 1,000 mg DAILY SHAE Administration Furosemide 20 mg 03/18/24 09:00 03/25/24 10:08 Furosemide 20 Mg Tablet PO 03/18/25 08:59 Not Given MoWeFr@0900 SHAE Heparin Sodium (Porcine) 500 unit 03/23/24 22:00 03/25/24 05:37 Heparin-Lock 500 Unit/5 Ml Syringe IV-PUSH 03/23/25 21:59 500 unit Q8H SHAE Administration Lact Acid/Bifidobact/Lact [place]/Streptoc Th 1 cap 03/17/24 09:00 03/25/24 10:07 L. Acidophilus/Strept/La P-Brock 1 Cap Capsule PO 03/17/25 08:59 1 cap DAILY SHAE Administration Lactulose 30 gm 03/16/24 18:18 Lactulose 20 Gm/30 Ml Udc PO 03/16/25 18:17 DAILY PRN Constipation Metoprolol Succinate 25 mg 03/17/24 09:00 03/25/24 10:07 Metoprolol Succinate 25 Mg Tab.Er.24h PO 03/17/25 08:59 Not Given DAILY SHAE Multivitamins 1 tab 03/17/24 09:00 03/25/24 10:03 Multivitamin 1 Tab Tablet PO 03/17/25 08:59 1 tab DAILY SHAE Administration Pantoprazole Sodium 40 mg 03/19/24 09:00 03/25/24 10:03 Pantoprazole 40 Mg Tablet.Dr PO 03/19/25 08:59 40 mg DAILY SHAE Administration Potassium Chloride 20 meq 03/16/24 21:00 03/25/24 10:08 Potassium Chloride Er 20 Meq Tab.Er.Prt PO 03/16/25 20:59 Not Given BID SHAE Sennosides 2 tab 03/17/24 12:00 Sennosides 8.6 Mg Tablet PO 03/17/25 11:59 DAILY@12 PRN If no BM in 2 days Sodium Chloride 0 ml 03/16/24 18:18 03/24/24 06:15 Sodium Chloride 0.9 % 10 Ml Syringe IV-PUSH 03/16/25 18:17 10 ml PRN PRN Administration Flush Sodium Chloride 10 ml 03/23/24 22:00 03/25/24 05:37 Sodium Chloride 0.9 % 10 Ml Syringe IV-PUSH 03/23/25 21:59 10 ml Q8H SHAE Administration Vitamin B Complex/Vit C/Folic Acid 1 tab 03/17/24 09:00 03/25/24 10:03 Folic Acid/Vit Bcomp,C 1 Tab Tablet PO 03/17/25 08:59 1 tab DAILY SHAE Administration Assessment/Plan Assessment/Plan (1) T2 vertebral fracture: Plan: PT to improve pt's strength, endurance, bed mobility, transfers (sit-stand), standing balance, gait quality on level surfaces and stairs, coordination and functional ADL skills. Will also work to improve pt's safety awareness during transfers and ambulation. OT for basic ADL re-training (bathing, dressing, toileting, continence, grooming, feeding, transferring), to increase activity tolerance and functional mobility and to evaluate for adaptive and assistive devices. Will work to improve pt's endurance and educate pt on fall prevention and energy conservationtechniques-pacing strategies and proper breathing techniques during functional tasks. Patient education Pressure ulcer prophylaxis; encourage mobilization, frequent postural changes, pressure-relief techniques DVT prophylaxis Encourage deep breathing exercise incentive spirometry. Monitor bladder. Toileting schedule. Continue current bladder management, with scans as needed and CIC if needed. Start bowel care program every day to obtain continence, prevent ileus. Maintain fall precautions Gait and balance retraining Provision of the necessary gait aids and functional adaptive equipment to enhance the patient's a functional zoroastrian Encourage deep breathing exercises and incentive spirometry RD evaluation Ensure adequate nutrition and hydration Discharge planning. (2) Multiple myeloma: Qualifiers: Multiple myeloma remission status: not in remission Qualified Code(s): C90.00 - Multiple myeloma not having achieved remission (3) COVID-19: (4) Vasovagal syncope: (5) Paroxysmal atrial fibrillation: (6) Coronary artery disease involving [place] coronary artery of [place] heart without angina pectoris: (7) Presence of Watchman left atrial appendage closure device: (8) Atrial fibrillation: (9) Aspiration pneumonia: (10) Pain due to fracture: (11) Esophageal dysphagia: Plan 84-year-old male with PMH of multiple myeloma, obesity, Afib with Watchman device, [place] with stent, and HTN admitted after T2 compression fracture with smallprevertebral hematoma admitted to inpatient rehabilitation. -Continue current management. Seen and examined bedside, case discussed with -Started on Sinemet for PD treatment -D/c planning ongoing Pain control: Tylenol 3 times daily Bowel and bladder: continent Skin: No pressure ulcers on admission. Sleep: Optimize sleep/wake cycle. DVT prophylaxis: SCD's Functional status: Impaired see PT/OT. Discharge planning: On Saturday. Patient was personally seen by me, Dr. Ramon, on the day of encounter, reviewed the history and the relevant portions of the chart, including current orders, allied health and method consultant notes, labs/imaging and performed lawler elements of exam and I formulated the plan of care and facilitated the medical decision making. I completed a substantive portion of this encounter, the medical decision makingportion of this note in its entirety, including Allied health note review, nursing note review, method consultant note review, discussion with nursing and case management, and more than 50% of my time was spent on counseling and coordination of care, time spent 35 minutes Documented By: Luis Ramon MD 03/25/241428 Signed By: <Electronically signed by Luis Ramon MD> 03/26/241428 [facility] Work Phone: 1(463) 894-231709-24-2024 Progress note Author Luis Ramon [facility] March 24, 2024 2:02pm Note Date/Time March 24, 2024 2:02pm [facility] [address] [place] [address] Physiatry(Rehab) Progress Note Signed Patient: Missy Salgado MR#: [id number] : 1940 Acct:[id number] Age/Sex: 84 / M Adm Date: 4 Loc: Room: 7T9256-9 Type: ADM IN Attending Dr: Luis Ramon MD Copies to: ~ Date of Service: 03/24/2024 Subjective Subjective Narrative: Mr. Salgado is a 84 year old male with PMH of multiple myeloma, Afib with Watchmandevice, [place] with stent, and HTN, admitted to [facility] inpatient rehab from [facility] after a fall from a barstool resulting in a T2 compression fracture with small prevertebral hematoma. States he turned around and fell off the barstool. He is unsure if he was dizzy or symptomatic at the time of the fall. He was initially evaluated in [place] [facility]. Fracture thought to be unstable and [facility] He was evaluated by neurosurgery and underwent nonoperative management. No bracing was recommended. Imaging was also significant aspiration pneumonia. He states that Dr. Matthew, hisoncologist, discontinued his doses of bortezomib at his last appointment. Patient noted to have experienced a syncopal episode with LOC at the time of thefall. Cardiology was consulted at [facility]. Metoprolol was initiated. Dose of furosemide was adjusted. Plan for outpatient Holter monitor. History: Continues to demonstrate some PD symptoms in therapy. Reviewed at team meeting. present for FI today. Review of Systems Review of Systems All other systems reviewed & are negative unless noted below or in HPI Exam Physical Exam Vital Signs: Temp Pulse Resp BP Pulse Ox O2 Del Method 97.3 F L 103 H 18 124/68 94 L Room Air 03/24/24 04:28 03/24/24 08:23 03/24/24 04:28 03/24/24 08:23 03/24/24 08:23 03/24/24 08:23 Narrative: General: Awake, A&O x 3, pleasant, cooperative, well nourished. Sitting up in wheelchair HENT: NC, AT Eyes: No scleral icterus Neck: Supple Cardio: RRR, no murmurs, rubs or gallops. Extremities well perfused Respiratory: Basilar crackles, No evidence of respiratory distress GI: Soft, nontender, nondistended. Normal Bowel sounds x4 quadrants Neuro: CN II-XII intact. Strength 5/5 left upper and lower extremities. Moves all extremities spontaneously. Sensation intact bilterally. Extremities: No edema, erythema, cyanosis Objective Labs 03/24/24 06:18 03/24/24 06:18 Labs: Laboratory Results - last 24 hr 03/23/24 03/24/24 15:15 06:18 Corrected WBC 10.0 10.0 Uncorrected WBC Count 10.0 10.0 RBC 3.18 L 3.19 L Hgb 11.4 L 11.4 L Hct 33.7 L 33.4 L MCV 106.2 H 104.9 H MCH 35.8 H 35.9 H MCHC 33.7 34.3 RDW 14.3 14.1 Plt Count 318 305 MPV 8.1 8.1 Neut % (Auto) 75.8 72.9 Lymph % (Auto) 9.7 8.8 Tate % (Auto) 12.1 14.0 Eos % (Auto) 1.8 3.1 Baso % (Auto) 0.6 1.2 Nucleat RBC Rel Count 0.0 0.1 Neut # (Auto) 7.6 7.3 Lymph # (Auto) 1.0 0.9 L Tate # (Auto) 1.2 H 1.4 H Eos # (Auto) 0.2 0.3 Baso # (Auto) 0.1 0.1 PHA Creatinine Clear 54.42 57.87 Sodium 134 L 130 L Potassium 4.4 4.4 Chloride 103 100 Carbon Dioxide 24.7 25.4 Anion Gap 10.7 9.0 BUN 23 19 Creatinine 1.34 H 1.26 Est GFR (CKD-EPI) 52.890 56.945 Glucose 136 H 96 Calcium 8.8 8.7 Medications and Allergies Allergies and Active Meds: Allergies Umovexp-BMF-BsU Reductase Inhibitor Adverse Reaction (Mild, Verified 01/07/24 15:26) Muscle Pain Active Medications Generic Name Dose Route Start Last Admin Trade Name Freq PRN Reason Stop Dose Admin Acetaminophen 500 mg 03/16/24 18:13 Acetaminophen 500 Mg Tablet PO QHS PRN sleep Acetaminophen 1,000 mg 03/17/24 14:00 03/24/24 08:20 Acetaminophen 500 Mg Tablet PO 03/17/25 13:59 1,000 mg TID SHAE Administration Acyclovir 400 mg 03/16/24 21:30 03/23/24 21:15 Acyclovir 400 Mg Tablet PO 400 mg DAILY@2130 SHAE Administration Al Hydrox/Mg Hydrox/Simethicone 30 ml 03/16/24 18:18 Mag Hydrox/Al Hydrox/Simeth 30 Ml Udc PO 03/16/25 18:17 Q4H PRN Indigestion Aspirin 81 mg 03/17/24 09:00 03/24/24 08:20 Aspirin 81 Mg Tablet.Dr AGUILA 03/17/25 08:59 81 mg DAILY SHAE Administration Bisacodyl 10 mg 03/16/24 18:18 Bisacodyl 10 Mg Supp.Rect DE 03/16/25 18:17 DAILY PRN Constipation Diphenhydramine HCl 25 mg 03/16/24 19:26 03/23/24 21:16 Diphenhydramine 25 Mg Capsule PO 03/16/25 19:25 25 mg QHS PRN Administration sleep Docusate Sodium 100 mg 03/16/24 18:18 Docusate 100 Mg Capsule PO 03/16/25 18:17 BID PRN Constipation Docusate Sodium 283 mg 03/16/24 18:18 Docusate Enema 283 Mg/5 Ml Enema DE 03/16/25 18:17 DAILY PRN Constipation Fish Oil 1,000 mg 03/17/24 09:00 03/24/24 08:20 Gary-3/Fish Oil 1,000 Mg Capsule PO 03/17/25 08:59 1,000 mg DAILY SHAE Administration Furosemide 20 mg 03/18/24 09:00 03/23/24 08:29 Furosemide 20 Mg Tablet PO 03/18/25 08:59 20 mg MoWeFr@0900 SHAE Administration Heparin Sodium (Porcine) 500 unit 03/23/24 22:00 03/24/24 06:15 Heparin-Lock 500 Unit/5 Ml Syringe IV-PUSH 03/23/25 21:59 500 unit Q8H SHAE Administration Lact Acid/Bifidobact/Lact [place]/Streptoc Th 1 cap 03/17/24 09:00 03/24/24 08:20 L. Acidophilus/Strept/La P-Brock 1 Cap Capsule PO 03/17/25 08:59 1 cap DAILY SHAE Administration Lactulose 30 gm 03/16/24 18:18 Lactulose 20 Gm/30 Ml Udc PO 03/16/25 18:17 DAILY PRN Constipation Metoprolol Succinate 25 mg 03/17/24 09:00 03/24/24 08:20 Metoprolol Succinate 25 Mg Tab.Er.24h PO 03/17/25 08:59 25 mg DAILY SHAE Administration Multivitamins 1 tab 03/17/24 09:00 03/24/24 08:20 Multivitamin 1 Tab Tablet PO 03/17/25 08:59 1 tab DAILY SHAE Administration Pantoprazole Sodium 40 mg 03/19/24 09:00 03/24/24 08:20 Pantoprazole 40 Mg Tablet. PO 03/19/25 08:59 40 mg DAILY SHAE Administration Potassium Chloride 20 meq 03/16/24 21:00 03/24/24 08:20 Potassium Chloride Er 20 Meq Tab.Er.Prt PO 03/16/25 20:59 20 meq BID SHAE Administration Sennosides 2 tab 03/17/24 12:00 Sennosides 8.6 Mg Tablet PO 03/17/25 11:59 DAILY@12 PRN If no BM in 2 days Sodium Chloride 0 ml 03/16/24 18:18 03/24/24 06:15 Sodium Chloride 0.9 % 10 Ml Syringe IV-PUSH 03/16/25 18:17 10 ml PRN PRN Administration Flush Sodium Chloride 10 ml 03/23/24 22:00 03/24/24 06:14 Sodium Chloride 0.9 % 10 Ml Syringe IV-PUSH 03/23/25 21:59 10 ml Q8H SHAE Administration Vitamin B Complex/Vit C/Folic Acid 1 tab 03/17/24 09:00 03/24/24 08:20 Folic Acid/Vit Bcomp,C 1 Tab Tablet PO 03/17/25 08:59 1 tab DAILY SHAE Administration Assessment/Plan Assessment/Plan (1) T2 vertebral fracture: Plan: PT to improve pt's strength, endurance, bed mobility, transfers (sit-stand), standing balance, gait quality on level surfaces and stairs, coordination and functional ADL skills. Will also work to improve pt's safety awareness during transfers and ambulation. OT for basic ADL re-training (bathing, dressing, toileting, continence, grooming, feeding, transferring), to increase activity tolerance and functional mobility and to evaluate for adaptive and assistive devices. Will work to improve pt's endurance and educate pt on fall prevention and energy conservationtechniques-pacing strategies and proper breathing techniques during functional tasks. Patient education Pressure ulcer prophylaxis; encourage mobilization, frequent postural changes, pressure-relief techniques DVT prophylaxis Encourage deep breathing exercise incentive spirometry. Monitor bladder. Toileting schedule. Continue current bladder management, with scans as needed and CIC if needed. Start bowel care program every day to obtain continence, prevent ileus. Maintain fall precautions Gait and balance retraining Provision of the necessary gait aids and functional adaptive equipment to enhance the patient's a functional zoroastrian Encourage deep breathing exercises and incentive spirometry RD evaluation Ensure adequate nutrition and hydration Discharge planning. (2) Multiple myeloma: Qualifiers: Multiple myeloma remission status: not in remission Qualified Code(s): C90.00 - Multiple myeloma not having achieved remission (3) COVID-19: (4) Vasovagal syncope: (5) Paroxysmal atrial fibrillation: (6) Coronary artery disease involving [place] coronary artery of [place] heart without angina pectoris: (7) Presence of Watchman left atrial appendage closure device: (8) Atrial fibrillation: (9) Aspiration pneumonia: (10) Pain due to fracture: (11) Esophageal dysphagia: Plan 84-year-old male with PMH of multiple myeloma, obesity, Afib with Watchman device, [place] with stent, and HTN admitted after T2 compression fracture with smallprevertebral hematoma admitted to inpatient rehabilitation. -Teds and abdominal binder in place. -Encourage p.o. intake. -Labs reviewed and stable -Consider initiating PD treatment with Sinemet if family agreeable. -D/c planning ongoing Pain control: Tylenol 3 times daily Bowel and bladder: continent Skin: No pressure ulcers on admission. Sleep: Optimize sleep/wake cycle. DVT prophylaxis: SCD's Functional status: Impaired see PT/OT. Discharge planning: Home in 7-10 days. Need FI arranged. Patient was personally seen by me, Dr. Ramon, on the day of encounter, reviewed the history and the relevant portions of the chart, including current orders, allied health and method consultant notes, labs/imaging and performed lawler elements of exam and I formulated the plan of care and facilitated the medical decision making. I completed a substantive portion of this encounter, the medical decision makingportion of this note in its entirety, including Allied health note review, nursing note review, method consultant note review, discussion with nursing and case management, and more than 50% of my time was spent on counseling and coordination of care, time spent 35 minutes Documented By: Luis Ramon MD 03/24/24 1400 Signed By: <Electronically signed by Luis Ramon MD> 03/24/24 1405 [facility] Work Phone: 1(270) 602-544109-23-2024 Progress note Author Luis Ramon [facility] March 23, 2024 1:04pm Note Date/Time March 23, 2024 1:04pm [facility] [address] [place] [address] Physiatry(Rehab) Progress Note Signed Patient: Missy Salgado MR#: [id number] : 1940 Acct:[id number] Age/Sex: 84 / M Adm Date: 4 Loc: 5T Room: [address] [place] [address] Type: ADM IN Attending Dr: Luis Ramon MD Copies to: ~ Date of Service: 03/23/2024 Subjective Subjective Narrative: Mr. Salgado is a 84 year old male with PMH of multiple myeloma, Afib with Watchmandevice, [place] with stent, and HTN, admitted to [facility] inpatient rehab from [facility] after a fall from a barstool resulting in a T2 compression fracture with small prevertebral hematoma. States he turned around and fell off the barstool. He is unsure if he was dizzy or symptomatic at the time of the fall. He was initially evaluated in [place] [facility]. Fracture thought to be unstable and [facility] He was evaluated by neurosurgery and underwent nonoperative management. No bracing was recommended. Imaging was also significant aspiration pneumonia. He states that Dr. Matthew, hisoncologist, discontinued his doses of bortezomib at his last appointment. Patient noted to have experienced a syncopal episode with LOC at the time of thefall. Cardiology was consulted at [facility]. Metoprolol was initiated. Dose of furosemide was adjusted. Plan for outpatient Holter monitor. History: Had episode of orthostatic hypotension today. Med list was reviewed. Working well in therapy. No acute events over the weekend. Review of Systems Review of Systems All other systems reviewed & are negative unless noted below or in HPI Exam Physical Exam Vital Signs: Temp Pulse Resp BP Pulse Ox O2 Del Method 97.4 F L 83 18 129/85 92 L Room Air 03/23/24 06:27 03/23/24 06:27 03/23/24 06:27 03/23/24 06:27 03/23/24 06:03/23/24 07:30 Narrative: General: Awake, A&O x 3, pleasant, cooperative, well nourished. Sitting up in wheelchair HENT: NC, AT Eyes: No scleral icterus Neck: Supple Cardio: RRR, no murmurs, rubs or gallops. Extremities well perfused Respiratory: Basilar crackles, No evidence of respiratory distress GI: Soft, nontender, nondistended. Normal Bowel sounds x4 quadrants Neuro: CN II-XII intact. Strength 5/5 left upper and lower extremities. Moves all extremities spontaneously. Sensation intact bilterally. Extremities: No edema, erythema, cyanosis Objective Labs 03/17/24 05:45 03/17/24 05:45 Labs: Laboratory Results - last 24 hr 03/23/24 09:46 POC Glucose 142 POC Glucose Comment Glu2: cleaned meter Medications and Allergies Allergies and Active Meds: Allergies Yrigddg-HGX-HfQ Reductase Inhibitor Adverse Reaction (Mild, Verified 01/07/24 15:26) Muscle Pain Active Medications Generic Name Dose Route Start Last Admin Trade Name Freq PRN Reason Stop Dose Admin Acetaminophen 500 mg 03/16/24 18:13 Acetaminophen 500 Mg Tablet PO QHS PRN sleep Acetaminophen 1,000 mg 03/17/24 14:00 03/23/24 08:28 Acetaminophen 500 Mg Tablet PO 03/17/25 13:59 1,000 mg TID SHAE Administration Acyclovir 400 mg 03/16/24 21:30 03/22/24 21:17 Acyclovir 400 Mg Tablet PO 400 mg DAILY@2130 SHAE Administration Al Hydrox/Mg Hydrox/Simethicone 30 ml 03/16/24 18:18 Mag Hydrox/Al Hydrox/Simeth 30 Ml Udc PO 03/16/25 18:17 Q4H PRN Indigestion Aspirin 81 mg 03/17/24 09:00 03/23/24 08:28 Aspirin 81 Mg Tablet.Dr PO 03/17/25 08:59 81 mg DAILY SHAE Administration Bisacodyl 10 mg 03/16/24 18:18 Bisacodyl 10 Mg Supp.Rect DE 03/16/25 18:17 DAILY PRN Constipation Diphenhydramine HCl 25 mg 03/16/24 19:26 03/22/24 21:16 Diphenhydramine 25 Mg Capsule PO 03/16/25 19:25 25 mg QHS PRN Administration sleep Docusate Sodium 100 mg 03/16/24 18:18 Docusate 100 Mg Capsule PO 03/16/25 18:17 BID PRN Constipation Docusate Sodium 283 mg 03/16/24 18:18 Docusate Enema 283 Mg/5 Ml Enema DE 03/16/25 18:17 DAILY PRN Constipation Fish Oil 1,000 mg 03/17/24 09:00 03/23/24 08:28 Gary-3/Fish Oil 1,000 Mg Capsule PO 03/17/25 08:59 1,000 mg DAILY SHAE Administration Furosemide 20 mg 03/18/24 09:00 03/23/24 08:29 Furosemide 20 Mg Tablet PO 03/18/25 08:59 20 mg MoWeFr@0900 SHAE Administration Lact Acid/Bifidobact/Lact [place]/Streptoc Th 1 cap 03/17/24 09:00 03/23/24 08:28 L. Acidophilus/Strept/La P-Brock 1 Cap Capsule PO 03/17/25 08:59 1 cap DAILY SHAE Administration Lactulose 30 gm 03/16/24 18:18 Lactulose 20 Gm/30 Ml Udc PO 03/16/25 18:17 DAILY PRN Constipation Metoprolol Succinate 25 mg 03/17/24 09:00 03/23/24 08:29 Metoprolol Succinate 25 Mg Tab.Er.24h PO 03/17/25 08:59 25 mg DAILY SHAE Administration Multivitamins 1 tab 03/17/24 09:00 03/23/24 08:28 Multivitamin 1 Tab Tablet PO 03/17/25 08:59 1 tab DAILY SHAE Administration Pantoprazole Sodium 40 mg 03/19/24 09:00 03/23/24 08:28 Pantoprazole 40 Mg Tablet. PO 03/19/25 08:59 40 mg DAILY SHAE Administration Potassium Chloride 20 meq 03/16/24 21:00 03/23/24 08:28 Potassium Chloride Er 20 Meq Tab.Er.Prt PO 03/16/25 20:59 20 meq BID SHAE Administration Sennosides 2 tab 03/17/24 12:00 Sennosides 8.6 Mg Tablet PO 03/17/25 11:59 DAILY@12 PRN If no BM in 2 days Sodium Chloride 0 ml 03/16/24 18:18 Sodium Chloride 0.9 % 10 Ml Syringe IV-PUSH 03/16/25 18:17 PRN PRN Flush Vitamin B Complex/Vit C/Folic Acid 1 tab 03/17/24 09:00 03/23/24 08:28 Folic Acid/Vit Bcomp,C 1 Tab Tablet PO 03/17/25 08:59 1 tab DAILY SHAE Administration Assessment/Plan Assessment/Plan (1) T2 vertebral fracture: Plan: PT to improve pt's strength, endurance, bed mobility, transfers (sit-stand), standing balance, gait quality on level surfaces and stairs, coordination and functional ADL skills. Will also work to improve pt's safety awareness during transfers and ambulation. OT for basic ADL re-training (bathing, dressing, toileting, continence, grooming, feeding, transferring), to increase activity tolerance and functional mobility and to evaluate for adaptive and assistive devices. Will work to improve pt's endurance and educate pt on fall prevention and energy conservationtechniques-pacing strategies and proper breathing techniques during functional tasks. Patient education Pressure ulcer prophylaxis; encourage mobilization, frequent postural changes, pressure-relief techniques DVT prophylaxis Encourage deep breathing exercise incentive spirometry. Monitor bladder. Toileting schedule. Continue current bladder management, with scans as needed and CIC if needed. Start bowel care program every day to obtain continence, prevent ileus. Maintain fall precautions Gait and balance retraining Provision of the necessary gait aids and functional adaptive equipment to enhance the patient's a functional zoroastrian Encourage deep breathing exercises and incentive spirometry RD evaluation Ensure adequate nutrition and hydration Discharge planning. (2) Multiple myeloma: Qualifiers: Multiple myeloma remission status: not in remission Qualified Code(s): C90.00 - Multiple myeloma not having achieved remission (3) COVID-19: (4) Vasovagal syncope: (5) Paroxysmal atrial fibrillation: (6) Coronary artery disease involving [place] coronary artery of [place] heart without angina pectoris: (7) Presence of Watchman left atrial appendage closure device: (8) Atrial fibrillation: (9) Aspiration pneumonia: (10) Pain due to fracture: (11) Esophageal dysphagia: Plan 84-year-old male with PMH of multiple myeloma, obesity, Afib with Watchman device, [place] with stent, and HTN admitted after T2 compression fracture with smallprevertebral hematoma admitted to inpatient rehabilitation. -Teds and abdominal binder in place. Encourage p.o. intake. Check labs tomorrow. May need gentle fluids. Pain control: Tylenol 3 times daily Bowel and bladder: continent Skin: No pressure ulcers on admission. Sleep: Optimize sleep/wake cycle. DVT prophylaxis: SCD's Functional status: Impaired see PT/OT. Discharge planning: Home in 7-10 days. Need FI arranged. Patient was personally seen by me, Dr. Ramon, on the day of encounter, reviewed the history and the relevant portions of the chart, including current orders, allied health and method consultant notes, labs/imaging and performed lawler elements of exam and I formulated the plan of care and facilitated the medical decision making. I completed a substantive portion of this encounter, the medical decision makingportion of this note in its entirety, including Allied health note review, nursing note review, method consultant note review, discussion with nursing and case management, and more than 50% of my time was spent on counseling and coordination of care, time spent 32 minutes Documented By: Luis Ramon MD 03/23/241302 Signed By: <Electronically signed by Luis Ramon MD> 03/23/241303 [facility] Work Phone: 1(240) 777-435709-20-2024 Progress note Author Luis Ramon [facility] March 20, 2024 10:04am Note Date/Time March 20, 2024 10:04am [facility] [address] [place] [address] Physiatry(Rehab) Progress Note Signed Patient: Missy Salgado MR#: [id number] : 1940 Acct:[id number] Age/Sex: 84 / M Adm Date: 4 Loc: Room: [address] [place] [address] Type: ADM IN Attending Dr: Luis Ramon MD Copies to: ~ Date of Service: 03/20/2024 Subjective Subjective Narrative: Mr. Salgado is a 84 year old male with PMH of multiple myeloma, Afib with Watchmandevice, [place] with stent, and HTN, admitted to [facility] inpatient rehab from [facility] after a fall from a barstool resulting in a T2 compression fracture with small prevertebral hematoma. States he turned around and fell off the barstool. He is unsure if he was dizzy or symptomatic at the time of the fall. He was initially evaluated in [place] [facility]. Fracture thought to be unstable and [facility] He was evaluated by neurosurgery and underwent nonoperative management. No bracing was recommended. Imaging was also significant aspiration pneumonia. He states that Dr. Matthew, hisoncologist, discontinued his doses of bortezomib at his last appointment. Patient noted to have experienced a syncopal episode with LOC at the time of thefall. Cardiology was consulted at [facility]. Metoprolol was initiated. Dose of furosemide was adjusted. Plan for outpatient Holter monitor. History: No acute events overnight. Participating with therapy. Pain is reasonably controlled. Vitals are stable. Still with some endurance and balance issues. Likely DC home next week. Review of Systems Review of Systems All other systems reviewed & are negative unless noted below or in HPI Exam Physical Exam Vital Signs: Temp Pulse Resp BP Pulse Ox O2 Del Method 98 F 87 18 131/82 91 L Room Air 03/20/24 05:00 03/20/24 05:00 03/20/24 05:00 03/20/24 05:00 03/20/24 05:00 03/20/24 05:00 Narrative: General: Awake, A&O x 3, pleasant, cooperative, well nourished. Sitting up in wheelchair HENT: NC, AT Eyes: No scleral icterus Neck: Supple Cardio: RRR, no murmurs, rubs or gallops. Extremities well perfused Respiratory: Basilar crackles, No evidence of respiratory distress GI: Soft, nontender, nondistended. Normal Bowel sounds x4 quadrants Neuro: CN II-XII intact. Strength 5/5 left upper and lower extremities. Moves all extremities spontaneously. Sensation intact bilterally. Extremities: No edema, erythema, cyanosis Objective Labs 03/17/24 05:45 03/17/24 05:45 Medications and Allergies Allergies and Active Meds: Allergies Uyjetch-FAD-PnZ Reductase Inhibitor Adverse Reaction (Mild, Verified 01/07/24 15:26) Muscle Pain Active Medications Generic Name Dose Route Start Last Admin Trade Name Freq PRN Reason Stop Dose Admin Acetaminophen 500 mg 03/16/24 18:13 Acetaminophen 500 Mg Tablet PO QHS PRN sleep Acetaminophen 1,000 mg 03/17/24 14:00 03/20/24 08:40 Acetaminophen 500 Mg Tablet PO 03/17/25 13:59 1,000 mg TID SHAE Administration Acyclovir 400 mg 03/16/24 21:30 03/19/24 21:12 Acyclovir 400 Mg Tablet PO 400 mg DAILY@2130 SHAE Administration Al Hydrox/Mg Hydrox/Simethicone 30 ml 03/16/24 18:18 Mag Hydrox/Al Hydrox/Simeth 30 Ml Udc PO 03/16/25 18:17 Q4H PRN Indigestion Amoxicillin/Clavulanate Potassium 1 tab 03/17/24 21:00 03/20/24 08:40 Amoxicillin/Clav 875-125 Mg Tablet PO 03/21/24 20:59 1 tab BID SHAE Administration Aspirin 81 mg 03/17/24 09:00 03/20/24 08:40 Aspirin 81 Mg Tablet.Dr PO 03/17/25 08:59 81 mg DAILY SHAE Administration Bisacodyl 10 mg 03/16/24 18:18 Bisacodyl 10 Mg Supp.Rect DE 03/16/25 18:17 DAILY PRN Constipation Diphenhydramine HCl 25 mg 03/16/24 19:26 03/19/24 21:13 Diphenhydramine 25 Mg Capsule PO 03/16/25 19:25 25 mg QHS PRN Administration sleep Docusate Sodium 100 mg 03/16/24 18:18 Docusate 100 Mg Capsule PO 03/16/25 18:17 BID PRN Constipation Docusate Sodium 283 mg 03/16/24 18:18 Docusate Enema 283 Mg/5 Ml Enema DE 03/16/25 18:17 DAILY PRN Constipation Fish Oil 1,000 mg 03/17/24 09:00 03/20/24 08:40 Gary-3/Fish Oil 1,000 Mg Capsule PO 03/17/25 08:59 1,000 mg DAILY SHAE Administration Furosemide 20 mg 03/18/24 09:00 03/20/24 08:40 Furosemide 20 Mg Tablet PO 03/18/25 08:59 20 mg MoWeFr@0900 SHAE Administration Heparin Sodium (Porcine) 500 unit 03/17/24 06:00 03/20/24 06:10 Heparin-Lock 500 Unit/5 Ml Syringe IV-PUSH 03/17/25 05:59 500 unit QSHIFT SHAE Administration Lact Acid/Bifidobact/Lact [place]/Streptoc Th 1 cap 03/17/24 09:00 03/20/24 08:40 L. Acidophilus/Strept/La P-Brock 1 Cap Capsule PO 03/17/25 08:59 1 cap DAILY SHAE Administration Lactulose 30 gm 03/16/24 18:18 Lactulose 20 Gm/30 Ml Udc PO 03/16/25 18:17 DAILY PRN Constipation Metoprolol Succinate 25 mg 03/17/24 09:00 03/20/24 08:40 Metoprolol Succinate 25 Mg Tab.Er.24h PO 03/17/25 08:59 25 mg DAILY SHAE Administration Multivitamins 1 tab 03/17/24 09:00 03/20/24 08:40 Multivitamin 1 Tab Tablet PO 03/17/25 08:59 1 tab DAILY SHAE Administration Pantoprazole Sodium 40 mg 03/19/24 09:00 03/20/24 08:40 Pantoprazole 40 Mg Tablet.Dr PO 03/19/25 08:59 40 mg DAILY SHAE Administration Potassium Chloride 20 meq 03/16/24 21:00 03/20/24 08:40 Potassium Chloride Er 20 Meq Tab.Er.Prt PO 03/16/25 20:59 20 meq BID SHAE Administration Sennosides 2 tab 03/17/24 12:00 Sennosides 8.6 Mg Tablet PO 03/17/25 11:59 DAILY@12 PRN If no BM in 2 days Sodium Chloride 0 ml 03/16/24 18:18 Sodium Chloride 0.9 % 10 Ml Syringe IV-PUSH 03/16/25 18:17 PRN PRN Flush Sodium Chloride 10 ml 03/17/24 06:00 03/20/24 06:10 Sodium Chloride 0.9 % 10 Ml Syringe IV-PUSH 03/17/25 05:59 10 ml Q8H SHAE Administration Vitamin B Complex/Vit C/Folic Acid 1 tab 03/17/24 09:00 03/20/24 08:40 Folic Acid/Vit Bcomp,C 1 Tab Tablet PO 03/17/25 08:59 1 tab DAILY SHAE Administration Assessment/Plan Assessment/Plan (1) T2 vertebral fracture: Plan: PT to improve pt's strength, endurance, bed mobility, transfers (sit-stand), standing balance, gait quality on level surfaces and stairs, coordination and functional ADL skills. Will also work to improve pt's safety awareness during transfers and ambulation. OT for basic ADL re-training (bathing, dressing, toileting, continence, grooming, feeding, transferring), to increase activity tolerance and functional mobility and to evaluate for adaptive and assistive devices. Will work to improve pt's endurance and educate pt on fall prevention and energy conservationtechniques-pacing strategies and proper breathing techniques during functional tasks. Patient education Pressure ulcer prophylaxis; encourage mobilization, frequent postural changes, pressure-relief techniques DVT prophylaxis Encourage deep breathing exercise incentive spirometry. Monitor bladder. Toileting schedule. Continue current bladder management, with scans as needed and CIC if needed. Start bowel care program every day to obtain continence, prevent ileus. Maintain fall precautions Gait and balance retraining Provision of the necessary gait aids and functional adaptive equipment to enhance the patient's a functional zoroastrian Encourage deep breathing exercises and incentive spirometry RD evaluation Ensure adequate nutrition and hydration Discharge planning. (2) Multiple myeloma: Qualifiers: Multiple myeloma remission status: not in remission Qualified Code(s): C90.00 - Multiple myeloma not having achieved remission (3) COVID-19: (4) Vasovagal syncope: (5) Paroxysmal atrial fibrillation: (6) Coronary artery disease involving [place] coronary artery of [place] heart without angina pectoris: (7) Presence of Watchman left atrial appendage closure device: (8) Atrial fibrillation: (9) Aspiration pneumonia: (10) Pain due to fracture: (11) Esophageal dysphagia: Plan 84-year-old male with PMH of multiple myeloma, obesity, Afib with Watchman device, [place] with stent, and HTN admitted after T2 compression fracture with smallprevertebral hematoma admitted to inpatient rehabilitation. -Continue Protonix. -Neurologic exam is stable. -Continue therapy as ordered. -Ambulatory, and completing self-care min to standby assist. Pain control: Tylenol 3 times daily Bowel and bladder: continent Skin: No pressure ulcers on admission. Sleep: Optimize sleep/wake cycle. DVT prophylaxis: SCD's Functional status: Impaired see PT/OT. Discharge planning: Home in 7-10 days. Need FI arranged. Patient was personally seen by me, Dr. Ramon, on the day of encounter, reviewed the history and the relevant portions of the chart, including current orders, allied health and method consultant notes, labs/imaging and performed lawler elements of exam and I formulated the plan of care and facilitated the medical decision making. I completed a substantive portion of this encounter, the medical decision makingportion of this note in its entirety, including Allied health note review, nursing note review, method consultant note review, discussion with nursing and case management, and more than 50% of my time was spent on counseling and coordination of care, time spent 30 minutes Documented By: Luis Ramon MD 03/20/24 1003 Signed By: <Electronically signed by Luis Ramon MD> 03/20/24 1004 [facility] Work Phone: 1(186) 247-733509-18-2024 Progress note Author Luis Ramon [facility] March 18, 2024 3:53pm Note Date/Time March 18, 2024 9:14am [facility] [address] [place] [address] Physiatry(Rehab) Progress Note Signed Patient: Missy Salgado MR#: [id number] : 1940 Acct:[id number] Age/Sex: 84 / M Adm Date: 4 Loc: 5T Room: 0S4149-3 Type: ADM IN Attending Dr: Luis Ramon MD Copies to: ~ Date of Service: 03/18/2024 Subjective Subjective Narrative: Mr. Salgado is a 84 year old male with PMH of multiple myeloma, Afib with Watchmandevice, [place] with stent, and HTN, admitted to [facility] inpatient rehab from [facility] after a fall from a barstool resulting in a T2 compression fracture with small prevertebral hematoma. States he turned around and fell off the barstool. He is unsure if he was dizzy or symptomatic at the time of the fall. He was initially evaluated in [place] [facility]. Fracture thought to be unstable and [facility] He was evaluated by neurosurgery and underwent nonoperative management. No bracing was recommended. Imaging was also significant aspiration pneumonia. He states that Dr. Matthew, hisoncologist, discontinued his doses of bortezomib at his last appointment. Patient noted to have experienced a syncopal episode with LOC at the time of thefall. Cardiology was consulted at [facility]. Metoprolol was initiated. Dose of furosemide was adjusted. Plan for outpatient Holter monitor. History: Modified barium swallow study reviewed, esophageal dysphagia. Discussed with speech therapy, he can be started on Protonix. Will monitor, consider outpatient GI referral. Minimal pain at fracture site. Ambulatory. Review of Systems Review of Systems All other systems reviewed & are negative unless noted below or in HPI Exam Physical Exam Vital Signs: Temp Pulse Resp BP Pulse Ox O2 Del Method 97.2 F L 93 19 145/90 H 93 L Room Air 03/18/24 05:00 03/18/24 05:00 03/18/24 05:00 03/18/24 05:00 03/18/24 05:00 03/18/24 05:00 Narrative: General: Awake, A&O x 3, pleasant, cooperative, well nourished. Sitting up in wheelchair HENT: NC, AT Eyes: No scleral icterus Neck: Supple Cardio: RRR, no murmurs, rubs or gallops. Extremities well perfused Respiratory: Basilar crackles, No evidence of respiratory distress GI: Soft, nontender, nondistended. Normal Bowel sounds x4 quadrants Neuro: CN II-XII intact. Strength 5/5 left upper and lower extremities. Moves all extremities spontaneously. Sensation intact bilterally. Extremities: No edema, erythema, cyanosis Objective Labs 03/17/24 05:45 03/17/24 05:45 Medications and Allergies Allergies and Active Meds: Allergies Vcmbdtt-LWG-QrS Reductase Inhibitor Adverse Reaction (Mild, Verified 01/07/24 15:26) Muscle Pain Active Medications Generic Name Dose Route Start Last Admin Trade Name Freq PRN Reason Stop Dose Admin Acetaminophen 500 mg 03/16/24 18:13 Acetaminophen 500 Mg Tablet PO QHS PRN sleep Acetaminophen 1,000 mg 03/17/24 14:00 03/18/24 08:21 Acetaminophen 500 Mg Tablet PO 03/17/25 13:59 1,000 mg TID SHAE Administration Acyclovir 400 mg 03/16/24 21:30 03/17/24 20:13 Acyclovir 400 Mg Tablet PO 400 mg DAILY@2130 SHAE Administration Al Hydrox/Mg Hydrox/Simethicone 30 ml 03/16/24 18:18 Mag Hydrox/Al Hydrox/Simeth 30 Ml Udc PO 03/16/25 18:17 Q4H PRN Indigestion Amoxicillin/Clavulanate Potassium 1 tab 03/17/24 21:00 03/18/24 08:20 Amoxicillin/Clav 875-125 Mg Tablet PO 03/21/24 20:59 1 tab BID SHAE Administration Aspirin 81 mg 03/17/24 09:00 03/18/24 08:20 Aspirin 81 Mg Tablet. PO 03/17/25 08:59 81 mg DAILY SHAE Administration Bisacodyl 10 mg 03/16/24 18:18 Bisacodyl 10 Mg Supp.Rect DE 03/16/25 18:17 DAILY PRN Constipation Diphenhydramine HCl 25 mg 03/16/24 19:26 03/17/24 20:13 Diphenhydramine 25 Mg Capsule PO 03/16/25 19:25 25 mg QHS PRN Administration sleep Docusate Sodium 100 mg 03/16/24 18:18 Docusate 100 Mg Capsule PO 03/16/25 18:17 BID PRN Constipation Docusate Sodium 283 mg 03/16/24 18:18 Docusate Enema 283 Mg/5 Ml Enema DE 03/16/25 18:17 DAILY PRN Constipation Fish Oil 1,000 mg 03/17/24 09:00 03/18/24 08:20 Gary-3/Fish Oil 1,000 Mg Capsule PO 03/17/25 08:59 1,000 mg DAILY SHAE Administration Furosemide 20 mg 03/18/24 09:00 03/18/24 08:21 Furosemide 20 Mg Tablet PO 03/18/25 08:59 20 mg MoWeFr@0900 SHAE Administration Heparin Sodium (Porcine) 500 unit 03/17/24 06:00 03/18/24 06:17 Heparin-Lock 500 Unit/5 Ml Syringe IV-PUSH 03/17/25 05:59 500 unit QSHIFT SHAE Administration Lact Acid/Bifidobact/Lact [place]/Streptoc Th 1 cap 03/17/24 09:00 03/18/24 08:20 L. Acidophilus/Strept/La P-Brock 1 Cap Capsule PO 03/17/25 08:59 1 cap DAILY SHAE Administration Lactulose 30 gm 03/16/24 18:18 Lactulose 20 Gm/30 Ml Udc PO 03/16/25 18:17 DAILY PRN Constipation Metoprolol Succinate 25 mg 03/17/24 09:00 03/18/24 08:21 Metoprolol Succinate 25 Mg Tab.Er.24h PO 03/17/25 08:59 25 mg DAILY SHAE Administration Multivitamins 1 tab 03/17/24 09:00 03/18/24 08:20 Multivitamin 1 Tab Tablet PO 03/17/25 08:59 1 tab DAILY SHAE Administration Potassium Chloride 20 meq 03/16/24 21:00 03/18/24 08:21 Potassium Chloride Er 20 Meq Tab.Er.Prt PO 03/16/25 20:59 20 meq BID SHAE Administration Sennosides 2 tab 03/17/24 12:00 Sennosides 8.6 Mg Tablet PO 03/17/25 11:59 DAILY@12 PRN If no BM in 2 days Sodium Chloride 0 ml 03/16/24 18:18 Sodium Chloride 0.9 % 10 Ml Syringe IV-PUSH 03/16/25 18:17 PRN PRN Flush Sodium Chloride 10 ml 03/17/24 06:00 03/18/24 06:17 Sodium Chloride 0.9 % 10 Ml Syringe IV-PUSH 03/17/25 05:59 10 ml Q8H SHAE Administration Vitamin B Complex/Vit C/Folic Acid 1 tab 03/17/24 09:00 03/18/24 08:20 Folic Acid/Vit Bcomp,C 1 Tab Tablet PO 03/17/25 08:59 1 tab DAILY SHAE Administration Assessment/Plan Assessment/Plan (1) T2 vertebral fracture: Plan: PT to improve pt's strength, endurance, bed mobility, transfers (sit-stand), standing balance, gait quality on level surfaces and stairs, coordination and functional ADL skills. Will also work to improve pt's safety awareness during transfers and ambulation. OT for basic ADL re-training (bathing, dressing, toileting, continence, grooming, feeding, transferring), to increase activity tolerance and functional mobility and to evaluate for adaptive and assistive devices. Will work to improve pt's endurance and educate pt on fall prevention and energy conservationtechniques-pacing strategies and proper breathing techniques during functional tasks. Patient education Pressure ulcer prophylaxis; encourage mobilization, frequent postural changes, pressure-relief techniques DVT prophylaxis Encourage deep breathing exercise incentive spirometry. Monitor bladder. Toileting schedule. Continue current bladder management, with scans as needed and CIC if needed. Start bowel care program every day to obtain continence, prevent ileus. Maintain fall precautions Gait and balance retraining Provision of the necessary gait aids and functional adaptive equipment to enhance the patient's a functional zoroastrian Encourage deep breathing exercises and incentive spirometry RD evaluation Ensure adequate nutrition and hydration Discharge planning. (2) Multiple myeloma: Qualifiers: Multiple myeloma remission status: not in remission Qualified Code(s): C90.00 - Multiple myeloma not having achieved remission (3) COVID-19: (4) Vasovagal syncope: (5) Paroxysmal atrial fibrillation: (6) Coronary artery disease involving [place] coronary artery of [place] heart without angina pectoris: (7) Presence of Watchman left atrial appendage closure device: (8) Atrial fibrillation: (9) Aspiration pneumonia: (10) Pain due to fracture: (11) Esophageal dysphagia: Plan 84-year-old male with PMH of multiple myeloma, obesity, Afib with Watchman device, [place] with stent, and HTN admitted after T2 compression fracture with smallprevertebral hematoma admitted to inpatient rehabilitation. -CXR with continued changes. Complete abx as ordered, course extended on rehab admission already. -Start protonix for esophageal dysphagia. -Home meds for chronic conditions as ordered. -Will contact Dr. Aguilar office regarding fracture/current chemo regimen. --Patient states is on hold -Will closely watch for neurologic changes/red flag symptoms. Pain control: Tylenol 3 times daily Bowel and bladder: continent Skin: No pressure ulcers on admission. Sleep: Optimize sleep/wake cycle. DVT prophylaxis: SCD's Functional status: Impaired see PT/OT. Discharge planning: Home in 7-10 days. Patient was personally seen by me, Dr. Ramon, on the day of encounter, reviewed the history and the relevant portions of the chart, including current orders, allied health and method consultant notes, labs/imaging and performed lawler elements of exam and I formulated the plan of care and facilitated the medical decision making. I completed a substantive portion of this encounter, the medical decision makingportion of this note in its entirety, including Allied health note review, nursing note review, method consultant note review, discussion with nursing and case management, and more than 50% of my time was spent on counseling and coordination of care, time spent 30 minutes Documented By: Luis Ramon MD 03/18/24 0914 Signed By: <Electronically signed by Luis Ramon MD> 03/18/24 1553 [facility] Work Phone: 1(922) 171-258809-17-2024 Consult note Author Milagros Ardon [facility] March 17, 2024 3:50pm Note Date/Time March 17, 2024 1:45pm [facility] [address] [place] [address] Hospitalist Consult Note Signed Patient: Missy Salgado MR#: [id number] : 1940 Acct:[id number] Age/Sex: 84 / M Adm Date: 4 Loc: Room: 5H6548-9 Type: ADM IN Attending Dr: Luis Ramon MD Copies to: MD Milagros Urias APRN~ HPI DATE OF CONSULTATION: 03/17/24 REQUESTING PROVIDER: Luis Ramon Consult Narrative Reason for Consult: Hypertension HPI: Mr. Emanuel Salgado is a 84-year-old male with past medical history of multiple myeloma, atrial fibrillation with Watchman device, IN with stent and hypertension who initially presented to [facility] emergency department after sustaining a fall from a barstool resulting in T2 compression fracture with small vertebral hematoma. Fracture was thought to be unstable at the time and he was transferred to [facility] under trauma consult. He was seen and evaluatedby neurosurgery and was recommended nonoperative management. He was also evaluated by cardiology for syncopal episode with loss of consciousness at the time of fall. He was initiated on metoprolol and his furosemide dose was adjusted. He will follow-up with cardiology outpatient for Holter monitor. He was also found to have significant aspiration pneumonia on imaging and started on antibiotic. He was seen and evaluated by physical therapy and Occupational Therapy and recommended acute inpatient rehabilitation and transferred to [facility]'s inpatient rehab. The hospitalist team has been consulted for medical management of hypertension. Patient seen and examined out of bedand sitting in chair. Reporting minimal pain to back, reports doing well with physical therapy. Denies chest pain or palpitation. No cough, dyspnea, or pain with inspiration. No abdominal pain or indigestion, constipation or diarrhea, nausea or vomiting. No dysuria or retention. No headache or dizziness. No fevers Review of Systems Review of Systems Review of systems: 10 point review of systems obtained, negative unless noted in the HPI below PMFSH Source: Old Records Reviewed Medical History Macular degeneration Cancer of spine Presence of Watchman left atrial appendage closure device [address] [facility] Bladder cancer Started bleeding 2 weeks after bladder cancer surgery, coded at [facility] then again in helicopter while being shipped to [facility]. Multiple myeloma Surgical History H/O left knee surgery Previous back surgery 2010 H/O bilateral inguinal hernia repair History of heart artery stent Family History Father Heart disease Social History Smoking Status: Former smoker Tobacco Type: cigarettes Substance Use Type: None Meds Medications and Allergies Allergies Njkbpsl-YUM-HmB Reductase Inhibitor Adverse Reaction (Mild, Verified 01/07/24 15:26) Muscle Pain Home Medications acyclovir 400 mg tablet 400 mg PO DAILY 07/09/23 [History Confirmed 03/16/24] aspirin 81 mg tablet,delayed release 81 mg PO DAILY 07/09/23 [History Confirmed 03/16/24] metoprolol succinate 25 mg tablet,extended release 24 hr 25 mg PO DAILY 07/09/23[History Confirmed 03/16/24] multivitamin 1 tab PO DAILY 09/24/23 [History Confirmed 03/16/24] potassium chloride 20 mEq tablet,extended release 20 meq PO BID 09/24/23 [History Confirmed 03/16/24] Bifidobacterium infantis 10.5 mg (10 million cell) chewable tablet (Align) 10.5 mg PO DAILY 03/16/24 [History Confirmed 03/16/24] bortezomib 03/16/24 [History] miguel angel seed oil-omega 3-6-9 1,000 mg (580 mg) capsule 1 cap PO DAILY 03/16/24 [History Confirmed 03/16/24] dexamethasone 4 mg tablet 4 mg PO .weekly 03/16/24 [History] diphenhydramine 25 mg-acetaminophen 500 mg tablet (Tylenol PM Extra Strength) 1 tab PO QHS PRN sleep 03/16/24 [History Confirmed 03/16/24] furosemide 20 mg tablet 20 mg PO MOWEFR 03/16/24 [History Confirmed 03/16/24] vitamin B complex (Vitamins B Complex capsule) 1 cap PO DAILY 03/16/24 [History Confirmed 03/16/24] Active Medications: Active Medications Generic Name Dose Route Start Last Admin Trade Name Freq PRN Reason Stop Dose Admin Acetaminophen 500 mg 03/16/24 18:13 Acetaminophen 500 Mg Tablet PO QHS PRN sleep Acetaminophen 1,000 mg 03/17/24 14:00 Acetaminophen 500 Mg Tablet PO 03/17/25 13:59 TID SHAE Acyclovir 400 mg 03/16/24 21:30 03/16/24 21:38 Acyclovir 400 Mg Tablet PO 400 mg DAILY@2130 SHAE Administration Al Hydrox/Mg Hydrox/Simethicone 30 ml 03/16/24 18:18 Mag Hydrox/Al Hydrox/Simeth 30 Ml Udc PO 03/16/25 18:17 Q4H PRN Indigestion Amoxicillin/Clavulanate Potassium 1 tab 03/17/24 21:00 Amoxicillin/Clav 875-125 Mg Tablet PO 03/21/24 20:59 BID SHAE Aspirin 81 mg 03/17/24 09:00 03/17/24 08:18 Aspirin 81 Mg Tablet.Dr PO 03/17/25 08:59 81 mg DAILY SHAE Administration Bisacodyl 10 mg 03/16/24 18:18 Bisacodyl 10 Mg Supp.Rect DE 03/16/25 18:17 DAILY PRN Constipation Diphenhydramine HCl 25 mg 03/16/24 19:26 Diphenhydramine 25 Mg Capsule PO 03/16/25 19:25 QHS PRN sleep Docusate Sodium 100 mg 03/16/24 18:18 Docusate 100 Mg Capsule PO 03/16/25 18:17 BID PRN Constipation Docusate Sodium 283 mg 03/16/24 18:18 Docusate Enema 283 Mg/5 Ml Enema DE 03/16/25 18:17 DAILY PRN Constipation Fish Oil 1,000 mg 03/17/24 09:00 03/17/24 08:18 Gary-3/Fish Oil 1,000 Mg Capsule PO 03/17/25 08:59 1,000 mg DAILY SHAE Administration Furosemide 20 mg 03/18/24 09:00 Furosemide 20 Mg Tablet PO 03/18/25 08:59 MoWeFr@0900 [facility] Heparin Sodium (Porcine) 500 unit 03/17/24 06:00 03/17/24 05:48 Heparin-Lock 500 Unit/5 Ml Syringe IV-PUSH 03/17/25 05:59 500 unit QSHIFT [facility] Administration Lact Acid/Bifidobact/Lact [place]/Streptoc Th 1 cap 03/17/24 09:00 03/17/24 08:18 L. Acidophilus/Strept/La P-Brock 1 Cap Capsule PO 03/17/25 08:59 1 cap DAILY SHAE Administration Lactulose 30 gm 03/16/24 18:18 Lactulose 20 Gm/30 Ml Udc PO 03/16/25 18:17 DAILY PRN Constipation Metoprolol Succinate 25 mg 03/17/24 09:00 03/17/24 08:18 Metoprolol Succinate 25 Mg Tab.Er.24h PO 03/17/25 08:59 25 mg DAILY SHAE Administration Multivitamins 1 tab 03/17/24 09:00 03/17/24 08:18 Multivitamin 1 Tab Tablet PO 03/17/25 08:59 1 tab DAILY SHAE Administration Potassium Chloride 20 meq 03/16/24 21:00 03/17/24 08:18 Potassium Chloride Er 20 Meq Tab.Er.Prt PO 03/16/25 20:59 20 meq BID SHAE Administration Sennosides 2 tab 03/17/24 12:00 Sennosides 8.6 Mg Tablet PO 03/17/25 11:59 DAILY@12 PRN If no BM in 2 days Sodium Chloride 0 ml 03/16/24 18:18 Sodium Chloride 0.9 % 10 Ml Syringe IV-PUSH 03/16/25 18:17 PRN PRN Flush Sodium Chloride 10 ml 03/17/24 06:00 03/17/24 05:49 Sodium Chloride 0.9 % 10 Ml Syringe IV-PUSH 03/17/25 05:59 10 ml Q8H SHAE Administration Vitamin B Complex/Vit C/Folic Acid 1 tab 03/17/24 09:00 03/17/24 08:15 Folic Acid/Vit Bcomp,C 1 Tab Tablet PO 03/17/25 08:59 1 tab DAILY SHAE Administration Exam Physical Exam Vital Signs: Temp Pulse Resp BP Pulse Ox O2 Del Method 97.8 F 86 18 133/80 92 L Room Air 03/17/24 05:00 03/17/24 05:00 03/17/24 05:00 03/17/24 05:00 03/17/24 05:00 03/17/24 05:00 Narrative: CONST-out of bed and sitting up in chair HEAD - Normocephalic and atraumatic EENT?Sclera nonicteric and conjunctive are nonerythemic, moist oral mucosa, pharynx clear NECK?Supple, no cervical lymphadenopathy CARDIAC?normal rate, regular rhythm, normal S1 & S2. PULM?diminished without wheeze or rhonchi, RA, no accessory muscle use or cough noted ABD ? Soft. Bowel sounds are normal. No distention No tenderness EXTREM?no edema BLE calves nontender SKIN?fair skin turgor, intact MS- MAEX4 spontaneously with equal with equal strength NEURO? A&Ox3 speech clear and tongue midline, equal facial symmetry no focal motor deficits PSYCH?Mood, affect and behavior appropriate Results - Hospitalist Consult Lab Results Labs: Laboratory Results - last 72 hr 03/17/24 05:45: Corrected WBC 9.7, Uncorrected WBC Count 9.7, RBC 3.34 L, Hgb 12.0 L, Hct 35.3 L, MCV 105.8 H, MCH 35.8 H, MCHC 33.8, RDW 14.5, Plt Count 245,MPV 8.1, Neut % (Auto) 69.3, Lymph % (Auto) 12.2, Tate % (Auto) 14.8, Eos % (Auto) 3.2, Baso % (Auto) 0.5, Nucleat RBC Rel Count 0.0, Neut # (Auto) 6.7, Lymph # (Auto) 1.2, Tate # (Auto) 1.4 H, Eos # (Auto) 0.3, Baso # (Auto) 0.0, PHA Creatinine Clear 61.14, Sodium 136, Potassium 4.1, Chloride 106, Carbon Dioxide 24.0, Anion Gap 10.1, BUN 17, Creatinine 1.18, Est GFR (CKD-EPI) > 60.0,Glucose 93, Calcium 8.6, Total Bilirubin 0.4, AST 24, ALT 16, Alkaline Phosphatase 85, Total Protein 6.4, Albumin 3.2 L, Globulin 3.2, Albumin/GlobulinRatio 1.0, Prealbumin 17.3 Assessment & Plan Assessment/Plan (1) T2 vertebral fracture: (2) Pain due to fracture: (3) Aspiration pneumonia: Plan T2 vertebral fracture Aspiration pneumonia, on room air Impaired mobility and activities of daily living * Plan of care for rehabilitation, PT/OT, DVT prophylaxis, bowel regimen per PM&R team * On Augmentin until 03/21/2024 Chronic conditions: 1.Atrial fibrillation with Watchman device/hypertension?on metoprolol, furosemide 2.Multiple myeloma?on acyclovir prophylactically Documented By: Milagros Ardon APRN 03/17/24 1333 Signed By: <Electronically signed by ORIANA Ardon> 03/17/24 [address] [facility] Work Phone: 1(171) 774-569009-17-2024 History and physical note Author Luis Ramon [facility] March 17, 2024 12:17pm Note Date/Time March 17, 2024 10:22am [facility] [address] [place] [address] Physiatry (Rehab) H&P Signed Patient: Missy Salgado MR#: [id number] : 1940 Acct:[id number] Age/Sex: 84 / M Adm Date: 4 Loc: Room: 6Q6447-0 Type: ADM IN Attending Dr: Luis Ramon MD Copies to: Adair Romero MD~ Date of Service: 03/17/2024 HPI The patient was seen and examined on: 03/17/24 Etiologic Diagnosis/Impairment Group: T2 compression fracture Chief complaint: Closed thoracic vertebral fracture; T2 compression fracture History of Present Illness: Mr. Salgado is a 84 year old male with PMH of multiple myeloma, Afib with Watchmandevice, IN with stent, and HTN, admitted to [facility] inpatient rehab from [facility] after a fall from a barstool resulting in a T2 compression fracture with small prevertebral hematoma. States he turned around and fell off the barstool. He is unsure if he was dizzy or symptomatic at the time of the fall. He was initially evaluated in [place] ER. Fracture thought to be unstable and [facility]. He was evaluated by neurosurgery and underwent nonoperative management. No bracing was recommended. Imaging was also significant aspiration pneumonia. He states that Dr. Matthew, hisoncologist, discontinued his doses of bortezomib at his last appointment. Patient noted to have experienced a syncopal episode with LOC at the time of thefall. Cardiology was consulted at [facility]. Metoprolol was initiated. Dose of furosemide was adjusted. Plan for outpatient Holter monitor. Patient discharged from acute care with instructions to increase activity gradually as tolerated. Admitted to inpatient rehabilitation to reduce risk of falls. Patient previously independent for ADLs/IADLs, lives with his . 2 step entry into a ranch home. Uses a walker or rollator for ambulation as needed. [facility] Medical History Macular degeneration Cancer of spine Presence of Watchman left atrial appendage closure device 2021 [facility] Bladder cancer Started bleeding 2 weeks after bladder cancer surgery, coded at [facility] then again in helicopter while being shipped to [facility] Multiple myeloma Surgical History H/O left knee surgery Previous back surgery 2010 H/O bilateral inguinal hernia repair History of heart artery stent Family History Father Heart disease Social History Smoking Status: Former smoker Tobacco Type: cigarettes Substance Use Type: None Review of Systems Review of Systems All other systems reviewed & are negative unless noted below or in HPI Meds Medications and Allergies Allergies Pjdtkmr-QSK-FpH Reductase Inhibitor Adverse Reaction (Mild, Verified 01/07/24 15:26) Muscle Pain Home and Active Meds: Home Medications acyclovir 400 mg tablet 400 mg PO DAILY 07/09/23 [History Confirmed 03/16/24] aspirin 81 mg tablet,delayed release 81 mg PO DAILY 07/09/23 [History Confirmed 03/16/24] metoprolol succinate 25 mg tablet,extended release 24 hr 25 mg PO DAILY 07/09/23[History Confirmed 03/16/24] multivitamin 1 tab PO DAILY 09/24/23 [History Confirmed 03/16/24] potassium chloride 20 mEq tablet,extended release 20 meq PO BID 09/24/23 [History Confirmed 03/16/24] Bifidobacterium infantis 10.5 mg (10 million cell) chewable tablet (Align) 10.5 mg PO DAILY 03/16/24 [History Confirmed 03/16/24] bortezomib 03/16/24 [History] miguel angel seed oil-omega 3-6-9 1,000 mg (580 mg) capsule 1 cap PO DAILY 03/16/24 [History Confirmed 03/16/24] dexamethasone 4 mg tablet 4 mg PO .weekly 03/16/24 [History] diphenhydramine 25 mg-acetaminophen 500 mg tablet (Tylenol PM Extra Strength) 1 tab PO QHS PRN sleep 03/16/24 [History Confirmed 03/16/24] furosemide 20 mg tablet 20 mg PO MOWEFR 03/16/24 [History Confirmed 03/16/24] vitamin B complex (Vitamins B Complex capsule) 1 cap PO DAILY 03/16/24 [History Confirmed 03/16/24] Active Medications Acetaminophen (Acetaminophen 500 Mg Tablet) 500 mg PO QHS PRN PRN Reason: sleep Acetaminophen (Acetaminophen 500 Mg Tablet) 1,000 mg PO TID [facility] Stop: 03/17/25 13:59 Acyclovir (Acyclovir 400 Mg Tablet) 400 mg PO DAILY@2130 [facility] Last Admin: 03/16/24 21:38 Dose: 400 mg Al Hydrox/Mg Hydrox/Simethicone (Mag Hydrox/Al Hydrox/Simeth 30 Ml Udc) 30 ml PO Q4H PRN PRN Reason: Indigestion Stop: 03/16/25 18:17 Aspirin (Aspirin 81 Mg Tablet.Dr) 81 mg PO DAILY [facility] Stop: 03/17/25 08:59 Last Admin: 03/17/24 08:18 Dose: 81 mg Bisacodyl (Bisacodyl 10 Mg Supp.Rect) 10 mg DE DAILY PRN PRN Reason: Constipation Stop: 03/16/25 18:17 Diphenhydramine HCl (Diphenhydramine 25 Mg Capsule) 25 mg PO QHS PRN PRN Reason: sleep Stop: 03/16/25 19:25 Docusate Sodium (Docusate 100 Mg Capsule) 100 mg PO BID PRN PRN Reason: Constipation Stop: 03/16/25 18:17 Docusate Sodium (Docusate Enema 283 Mg/5 Ml Enema) 283 mg DE DAILY PRN PRN Reason: Constipation Stop: 03/16/25 18:17 Fish Oil (Gary-3/Fish Oil 1,000 Mg Capsule) 1,000 mg PO DAILY [facility] Stop: 03/17/25 08:59 Last Admin: 03/17/24 08:18 Dose: 1,000 mg Furosemide (Furosemide 20 Mg Tablet) 20 mg PO MoWeFr@0900 [facility] Stop: 03/18/25 08:59 Heparin Sodium (Porcine) (Heparin-Lock 500 Unit/5 Ml Syringe) [facility] Stop: 03/17/25 05:59 Last Admin: 03/17/24 05:48 Dose: 500 unit Lact Acid/Bifidobact/Lact [place]/Streptoc Th (L. Acidophilus/Strept/La P-Brock 1 Cap Capsule) 1 cap PO DAILY SHAE Stop: 03/17/25 08:59 Last Admin: 03/17/24 08:18 Dose: 1 cap Lactulose (Lactulose 20 Gm/30 Ml Udc) 30 gm PO DAILY PRN PRN Reason: Constipation Stop: 03/16/25 18:17 Metoprolol Succinate (Metoprolol Succinate 25 Mg Tab.Er.24h) 25 mg PO DAILY SHAE Stop: 03/17/25 08:59 Last Admin: 03/17/24 08:18 Dose: 25 mg Multivitamins (Multivitamin 1 Tab Tablet) 1 tab PO DAILY SHAE Stop: 03/17/25 08:59 Last Admin: 03/17/24 08:18 Dose: 1 tab Potassium Chloride (Potassium Chloride Er 20 Meq Tab.Er.Prt) 20 meq PO BID SHAE Stop: 03/16/25 20:59 Last Admin: 03/17/24 08:18 Dose: 20 meq Sennosides (Sennosides 8.6 Mg Tablet) 2 tab PO DAILY@12 PRN PRN Reason: If no BM in 2 days Stop: 03/17/25 11:59 Sodium Chloride (Sodium Chloride 0.9 % 10 Ml Syringe) 0 ml IV-PUSH PRN PRN PRN Reason: Flush Stop: 03/16/25 18:17 Sodium Chloride (Sodium Chloride 0.9 % 10 Ml Syringe) 10 ml IV-PUSH Q8H SHAE Stop: 03/17/25 05:59 Last Admin: 03/17/24 05:49 Dose: 10 ml Vitamin B Complex/Vit C/Folic Acid (Folic Acid/Vit Bcomp,C 1 Tab Tablet) 1 tab PO DAILY SHAE Stop: 03/17/25 08:59 Last Admin: 03/17/24 08:15 Dose: 1 tab Exam Physical Exam Vital Signs: Temp Pulse Resp BP Pulse Ox O2 Del Method 97.8 F 86 18 133/80 92 L Room Air 03/17/24 05:00 03/17/24 05:00 03/17/24 05:00 03/17/24 05:00 03/17/24 05:00 03/17/24 05:00 Narrative: General: Awake, A&O x 3, pleasant, cooperative, well nourished. Sitting up in wheelchair HENT: NC, AT Eyes: No scleral icterus Neck: Supple Cardio: RRR, no murmurs, rubs or gallops. Extremities well perfused Respiratory: Basilar crackles, No evidence of respiratory distress GI: Soft, nontender, nondistended. Normal Bowel sounds x4 quadrants Neuro: CN II-XII intact. Strength 5/5 left upper and lower extremities. Moves all extremities spontaneously. Sensation intact bilterally. Extremities: No edema, erythema, cyanosis Results - Phys. Rehab Labs Labs: Laboratory Results - last 24 hr 03/17/24 05:45 Corrected WBC 9.7 Uncorrected WBC Count 9.7 RBC 3.34 L Hgb 12.0 L Hct 35.3 L MCV 105.8 H MCH 35.8 H MCHC 33.8 RDW 14.5 Plt Count 245 MPV 8.1 Neut % (Auto) 69.3 Lymph % (Auto) 12.2 Tate % (Auto) 14.8 Eos % (Auto) 3.2 Baso % (Auto) 0.5 Nucleat RBC Rel Count 0.0 Neut # (Auto) 6.7 Lymph # (Auto) 1.2 Tate # (Auto) 1.4 H Eos # (Auto) 0.3 Baso # (Auto) 0.0 PHA Creatinine Clear 61.14 Sodium 136 Potassium 4.1 Chloride 106 Carbon Dioxide 24.0 Anion Gap 10.1 BUN 17 Creatinine 1.18 Est GFR (CKD-EPI) > 60.0 Glucose 93 Calcium 8.6 Total Bilirubin 0.4 AST 24 ALT 16 Alkaline Phosphatase 85 Total Protein 6.4 Albumin 3.2 L Globulin 3.2 Albumin/Globulin Ratio 1.0 Prealbumin 17.3 Additional Results Results Comment: I reviewed clinical lab tests, radiology reports and obtained and summated medical records and have ordered follow up lab tests and imaging studies as needed for rehabilitation care. Individualized Plan of Care Individualized Plan of Care Plan of Care: Individualized Overall Plan of Care: Admit Date/Time: March 17, 2024 Expected LOS: 2 weeks Expected Discharge Destination: Home Rehabilitation IGC: Traumatic fracture T2 Primary Diagnosis: Traumatic fracture T2 To have patient become more independent and to return home. Medical/ Functional Prognosis: Good Anticipated Functional Outcomes/Goals and Interventions: 1.Therapy Functional Outcome/Goal: Anticipate independent for bed mobility Anticipated interventions: Physician management, PT, OT, BELL ATTENDANT, , Dietitian, RehabNursing, Case management 2. Therapy Functional Outcome/Goal: Anticipate independent for transfers Anticipated interventions: Physician management, PT, OT, BELL ATTENDANT, Case management, Dietitian, Rehab Nursing 3. Therapy Functional Outcome/Goal: Anticipate independent for ambulation Anticipated interventions: Physician management, PT, OT, BELL ATTENDANT Case management, Dietitian, Rehab Nursing 4.Therapy Functional Outcome/Goal: Anticipate independent for self-care Anticipated interventions: Physician management, PT, OT, BELL ATTENDANT, Case management, Dietitian, Rehab Nursing 5.Therapy Functional Outcome/Goal: Anticipate independent for functional communication and swallowing Anticipated interventions: Physician management, PT, OT, BELL ATTENDANT, Case management, Dietitian, Rehab Nursing Required Therapy PT: 1 hour per day at least 5 days per week with additional therapy on as neededbasis. Comments: PT to improve pt's strength, endurance, bed mobility, transfers (sit-stand), standing balance, gait quality on level surfaces and stairs, coordination and functional ADL skills. Will also work to improve pt's safety awareness during transfers and ambulation. OT: 1 hour per day at least 5 days per week with additional therapy on as neededbasis. Comments: OT for basic ADL re-training (bathing, dressing, toileting, continence, grooming, feeding, transferring), to increase activity tolerance andfunctional mobility and to evaluate for adaptive and assistive devices. Will work to improve pt's endurance and educate pt on fall prevention and energy conservation techniques-pacing strategies and proper breathing techniques duringfunctional tasks. Speech/Language - 1 hour per day at least 5 days per week with additional therapy on as needed basis. Comments: BELL ATTENDANT to evaluate and treat patient?s cognition, language and communication skills, assess swallow function. Other: Dietitian, Rehab nursing, Wound, P&O, Neuropsychology as needed RATIONALE FOR IRF ADMISSION: Patient has both medical and functional complexities that require 24 hour daily monitoring and intervention from Trust Clerk as well as other consulting physicians including internal medicine as well as 24 hour daily forklift material handler nursing - for medical safe / optimal management. Patient requires interdisciplinary therapy team rehabilitation care including OT, PT, BELL ATTENDANT, SW, Psychology, Rehab Nursing, requires and can tolerate at least 3 hours of daily OT and PT therapy at least 5 days weekly. The following medical conditions significantly impact the rehabilitation process and are being addressed daily and can not be managed at home or in a lesser intense medical setting: Refer to above problem oriented plan of care Assessment/Plan (1) Multiple myeloma: Qualifiers: Multiple myeloma remission status: not in remission Qualified Code(s): C90.00 - Multiple myeloma not having achieved remission (2) COVID-19: (3) Vasovagal syncope: (4) Paroxysmal atrial fibrillation: (5) Coronary artery disease involving [place] coronary artery of [place] heart without angina pectoris: (6) Presence of Watchman left atrial appendage closure device: (7) Atrial fibrillation: (8) Aspiration pneumonia: (9) Pain due to fracture: (10) T2 vertebral fracture: (11) Oropharyngeal dysphagia: Plan 84-year-old male with PMH of multiple myeloma, obesity, Afib with Watchman device, IN with stent, and HTN admitted after T2 compression fracture with smallprevertebral hematoma admitted to inpatient rehabilitation. -External notes, therapy data, labs, and imaging reviewed -Home meds for chronic conditions as ordered. -Will contact Dr. Aguilar office regarding fracture/current chemo regimen. --Patient states is on hold -Will closely watch for neurologic changes/red flag symptoms. -Repeat chest X-ray in AM given aspiration findings. Will order ST eval as well -Augmentin for 4 more days to cover for aspiration. Received 3 days of Unasyn Pain control: Tylenol 3 times daily Bowel and bladder: continent Skin: No pressure ulcers on admission. Sleep: Optimize sleep/wake cycle. DVT prophylaxis: SCD's Functional status: Impaired see PT/OT. Discharge planning: Home in 7-10 days. I completed a substantive portion of this encounter, the medical decision makingportion of this note in its entirety, including Allied health note review, nursing note review, method consultant note review, discussion with nursing and case management, and more than 50% of my time was spent on counseling and coordination of care, time spent 65 minutes Patient was personally seen by me, Dr. Ramon, on the day of encounter, within 24hours of rehab admission, reviewed the history and the relevant portions of the chart, including current orders, allied health and method consultant notes, labs/imaging and performed lawler elements of exam and I formulated the plan of care and facilitated the medical decision making. Patient was personally seen by me on the day of encounter, reviewed the history and performed lawler elements of exam and formulated the plan of care and confirmedthe medical student note, as above Documented By: Luis Ramon MD 03/17/24905 Signed By: <Electronically signed by Luis Ramon MD> 03/17/24 1217 [facility] Work Phone: [phone]) 269-555208-27-2024 Telephone encounter Note* Telephone Encounter - Nelli Aguilar MD - 2024 12:45 PM EDT I think we can wait the 6 weeks before starting him back. - Happy birthday! [facility] Work Phone: [phone]) 183-653708-27-2024 Miscellaneous Notes* Telephone Encounter - Nelli Aguilar MD - 2024 12:45 PM EDT I think we can wait the 6 weeks before starting him back. - Happy birthday! * Telephone Encounter - Kanika Aquino RN - 02/24/2024 11:25 AM EDT Please review lab results and advise. Thanks Kanika Aquino RN [facility] Telephone encounter Note * Telephone Encounter - Kanika Aquino RN - 02/24/2024 11:25 AM EDT Please review lab results and advise. Thanks Kanika Aquino RN [facility] Work Phone: 1(680) 579-330608-25-2024 Evaluation note* Diagnosis Multiple myeloma not having achieved remission (HCC)- Primary Multiple myeloma, without mention of having achieved remission Stage 3a chronic kidney disease (HCC) documented in this encounter [facility]08-22-2024 Instructions* Patient Instructions* Nelli Aguilar MD - 02/20/2024 3:53 PM EDT RTC in 6 weeks with labs same day [facility] History of Present illness Narrative* Nelli Aguilar MD - 02/20/2024 3:30 PM EDT Images from the original note were not included. PATIENT NAME: Missy Salgado CLINIC NO.: [id number] DATE OF SERVICE: February 20, 2024 (Jeff) Some elements in this clinic note that are critical to medical decision making have been carefully reviewed and included from a prior clinic note dated: January 22, 2024 (Negrita) Referring Provider: David Molina MD Diagnosis: 1. Multiple Myeloma- FISH- Normal Assessment: Missy Salgado is a 83 year old year old male here for follow up. MM- therapy sequences summarized above was started on Darzalex and dex and will continue and followup on myeloma parameters He does not like the dex and will only take it on the days which he gets Darzalex. His myeloma parameters are trending slightly up. His PET 05/2022 was unchanged and no progression. Continue Darzalex. Dex was stopped due to insomnia and follow myeloma parameters, there is an upward trend and PET with sternal progression. Discussed the findings and he has fair amount of comorbidities. Suggested KPD and he has elected to stay locally for therapy. [facility] Started KPD 06/05/2023 and here for cycle 2, day 8 and he has had a good response to therapy as well. Pom Dose decreased to 2 mg, however he tolerated the therapy poorly and has stopped. He does have sig comonrbidities, not a great CAR-T therapy candidate and not interested in bispecifics as well. I dont think that he will tolerate Xpovio well. Suggested velcade qnd Dex and maybe reconsidering adding the CD138 ab back but he did not tolerate the Velcade and Dex and has requested a change in therapy. He has responded well to the previous Pomcombination but he tolerated that poorly as well, even single agent Pom and Dex. Discussed various options and stated that they all have side effects and he is willing to try Ixazomib and Dex. Started at the lowest possible Ixazomib dose and low dose weekly dex in 09/2023 and he is tolerating well, the dexamethasone dose was also decreased to 4 mg weekly due to insomnia. His last dose he took was early December 2023 and he subsequently developed COVID and was admitted for overall weakness but thankfu lly, the COVID did not have any other pulmonary complications. Patient states that he is feeling better he is a little bit ambivalent about restarting things Asciminib and would like to have some time off. I did suggest the importance of maintenance in myeloma, especially the fact that he has had a nice response to therapy. He states that he understood but wanted some time off therapy. I suggested thatwe can continue to monitor his myeloma parameters, as he has had a very good response to therapy, if he develops resurgence of the monoclonal paraprotein he can resume the regimen again. As noted above he has been on multiple regimens all difficulty with tolerance but he appears to have responsive disease. 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 Bladder tumor post TURBT and bleeding and subsequent arrest and transfer to [place].Off Plavix and Xarelto and stable. 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 T9 surgical resection 2010 3. 6 cycles of CyBord 2010 4. L Clavicular mass 01/2017 5. 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 L Orbital mass radiation 09/2018 8. VRD 6 cycles- Completed 05/2019- Brian Maintenance- 05/2021- Progression 9. Rib Xray 05/[address] Gunn at [facility] as well.-- Started Darzalex and Dex 07/26/2021. Dex stopped 09/04/2022- Insomnia- Dariela last dose 04/16/2023 11. Established care with ma 09/27/2021 12. Progressive disease 05/2023 13. KPD Started 06/05/2023- Pom dose reduced to 2 mg - Patient did not tolerate well at all and requested therapy to stop due to intolerance. Kyprolis stopped 07/17/2023 and Pom dose reduction also nottolerated and stopped early 08/2023 14. Radiation Sternum 06/10/2023- 800 cGy single fraction 14. Velcade and Dex 08/21/2023- Patient requested to stop 09/19/2023 after Day 1 cycle 2 due to intolerance 15. Ixazomib and Dex 09/2023 - Dropped dose to 4 mg weekly due to insomnia 11/2023 Initial Visit, February 20, 2024: Transition of Care Missy Salgado presents today to transition his care as his previous provider left the practice. Fatigued Tangela COVID Off Ixazomib for past month and feels better, he'd like to stay off treament for a little while longer. Son is pest control pilot for [employer] in [place]. January 22, 2024: Missy Salgado is a 83 year old year old male here for follow up. Was admitted locally early December with COVID and weakness. He states that he has not taken his exacerbated and weekly dexamethasone since early December. He had symptoms of weakness prior to taking the dose of exacerbation and subsequently admitted with COVID. He did not have any pulmonary complications.He also did not receive Paxlovid due to the cost according to his in the hospital. Patient was asking if he could take some time off exacerbation as it does make him tired. PAST MEDICAL HISTORY No date: CAD (coronary artery disease) No date: Hyperlipidemia No date: Hypertension No date: Multiple myeloma (HCC) No date: Myocardial infarction (HCC) No date: Port-A-Cath in place No date: Presence of Watchman left atrial appendage closure device Social History Tobacco Use Smoking status: Former Current packs/day: 0.00 Types: Cigarettes Quit date: 07/17/1981 Years since quittin.6 Passive exposure: Never Smokeless tobacco: Never Vaping Use Vaping status: Never Used Substance Use Topics Alcohol use: Yes Alcohol/week: 7.0 standard drinks of alcohol Types: 7 Shots of liquor per week Drug use: Never No family history on file. Past medical, social and family history reviewed without any changes. REVIEW OF SYSTEMS GENERAL: No weight loss, malaise or fevers. No night sweats. HEENT: Negative for headaches, No changes in hearing or vision, no nose bleeds or other nasal problems. RESPIRATORY: Negative for cough, wheezing and shortness of breath CARDIOVASCULAR: Negative for chest pain, leg swelling and palpitations GI: Negative for abdominal discomfort, blood in stools or black stools and change in bowel habits : Negative for dysuria, frequency and incontinence MUSCULOSKELETAL: Negative for joint pain or swelling, back pain, and muscle pain. SKIN: Negative for lesions, rash, and itching. HEMATOLOGY/LYMPHOLOGY Negative for prolonged bleeding, bruising easily, and swollen nodes. NEURO: Negative for numbness or tingling of hands/feet. No weakness. PHYSICAL EXAMINATION: BP 117/77 Pulse 97 Temp (Src) 97.4 (Temporal) Resp 16 Wt 225 lb 12 oz (102.4kg) SpO2 93% ECOG PERFORMANCE STATUS: 1- Restricted in physically strenuous activity. Carries out light duty. Exam limited to gross visualization where appropriate. Gen.: This is an age-appropriate patient in no acute distress. Head: Appears atraumatic with no visible lesions. Eyes: Pupils equally round and reactive to light, extraocular muscles are intact. Neck: Supple. Respiratory: Appears to be respiring comfortably. Neurologic: Nonfocal to gross visualization. Alert and oriented 3. Psychiatric: No evidence of inappropriate anxiety or depression. Skin: Visible areas of skin without rash, lesions, wounds or petechiae. LABS: Glucose (mg/dL) Date Value 02/20/2024 146 08/01/2022 85 Potassium (mmol/L) Date Value 02/20/2024 4.0 08/01/2022 4.5 Sodium (mmol/L) Date Value 02/20/2024 137 08/01/2022 138 Chloride (mmol/L) Date Value 02/20/2024 102 08/01/2022 104 CO2 (mmol/L) Date Value 02/20/2024 26 08/01/2022 25 Creatinine (mg/dL) Date Value 02/20/2024 1.37 CREATININE (mg/dL) Date Value 08/01/2022 1.4 BUN (mg/dL) Date Value 02/20/2024 21 Anion Gap (mmol/L) Date Value 02/20/2024 9 08/01/2022 13.5 Calcium (mg/dL) Date Value 08/01/2022 9.2 Calcium, Total (mg/dL) Date Value 02/20/2024 9.1 Protein, Total (g/dL) Date Value 02/20/2024 6.9 08/01/2022 6.6 Albumin (g/dL) Date Value 02/20/2024 3.6 08/01/2022 3.9 Bilirubin, Total (mg/dL) Date Value 02/20/2024 0.2 08/01/2022 0.2 Alkaline Phosphatase (U/L) Date Value 02/20/2024 128 08/01/2022 82.2 AST (U/L) Date Value 02/20/2024 24 08/01/2022 22 ALT (U/L) Date Value 02/20/2024 16 08/01/2022 14 WBC Date Value Ref Range Status 02/20/2024 8.90 3.70 - 11.00 k/uL Final RBC Date Value Ref Range Status 02/20/2024 3.56 (L) 4.20 - 6.00 m/uL Final Hemoglobin Date Value Ref Range Status 02/20/2024 12.8 (L) 13.0 - 17.0 g/dL Final Hematocrit Date Value Ref Range Status 02/20/2024 37.2 (L) 39.0 - 51.0 % Final MCV Date Value Ref Range Status 02/20/2024 104.5 (H) 80.0 - 100.0 fL Final MCH Date Value Ref Range Status 02/20/2024 36.0 (H) 26.0 - 34.0 pg Final MCHC Date Value Ref Range Status 02/20/2024 34.4 30.5 - 36.0 g/dL Final RDW-CV Date Value Ref Range Status 02/20/2024 15.5 (H) 11.5 - 15.0 % Final Platelet Count Date Value Ref Range Status 02/20/2024 283 150 - 400 k/uL Final MPV Date Value Ref Range Status 02/20/2024 10.0 9.0 - 12.7 fL Final Abs Neut Date Value Ref Range Status 02/20/2024 5.77 1.45 - 7.50 k/uL Final Lymphocytes % Date Value Ref Range Status 02/20/2024 15.4 % Final Abs Lymph Date Value Ref Range Status 02/20/2024 1.37 1.00 - 4.00 k/uL Final Monocytes % Date Value Ref Range Status 02/20/2024 14.2 % Final Abs Tate Date Value Ref Range Status 02/20/2024 1.26 (H) <0.87 k/uL Final Eosin% Date Value Ref Range Status 01/22/2024 1.7 % Final Abs Eosin Date Value Ref Range Status 02/20/2024 0.39 <0.46 k/uL Final Basophils % Date Value Ref Range Status 02/20/2024 0.8 % Final Abs Baso Date Value Ref Range Status 02/20/2024 0.07 <0.11 k/uL Final PATH: BM Biopsy 08/2018: A. Bone marrow, right posterior iliac crest, biopsy, aspirate smear, and peripheral blood smear: - Normocellular bone marrow (30%) with trilineage hematopoiesis and 3% plasma cells, see comment. - Decreased iron stores without ring sideroblasts. B. Bone marrow, right posterior iliac crest, clot section: - Normocellular bone marrow (30%) with trilineage hematopoiesis and 3% plasma cells, see comment. 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 Plasma cells are not increased (3%), confirmed by CD138 stain. In situ hybridization for kappa and lambda light chains appear to be polytypic. The special stain for Congo red performed on the core biopsy and clot section is negative for amyloid deposition. The flow cytometric analysis of the marrow aspirate reveals polytypic plasma cells and no immunophenotypic evidence of an abnormal population of T lymphocytes, B lymphocytes or blasts. Overall, there is no morphologic or immunophenotypic evidence of plasma cell neoplasm. Correlation with clinical findings and cytogenetic/FISH studies is recommended. Probe/Control Range Patient/Interpretation 1p32.3(CDKN2C)-1signal/0-3.6% 0%/negative 1q21.3(CKS1B)-3signals/0-3.7% 0%/negative 3q27(BCL6)-3signals/0-2.2% 0%/negative 8r16-84,5p15.2([id number]:[id number])-3signals/0-0.6% 0%/negative 8q24(MYC)-bap/0-3.0% 0%/negative 11q22.3(ODILON)-3signals/0-0.6% 0%/negative 12p13(ETV6)-1signal/0-4.1% 0.5%/negative 13q14(RB1)-1signal/0-4.2% 0.5%/negative 13q34(LAMP1)-1signal/0-3.0% 0%/negative 17p13.1(TP53)-1signal/0-3.2% 0.5%/negative 21q22(RUNX1)-3signals/0-0.6% 0%/negative 14q32.3-11q13(IGH-CCND1)/0-0.6% 0%/negative IMAGING: PET 05/2021: 1. Mild metabolic activity associated with the posterior left 9th rib lesion and associated soft tissue mass. 2. No metabolic abnormality identified in the previously described osseous abnormalities in the calvarium, left clavicle and spine. No new site of disease identified. CT of the chest and Abdomen and Pelvis 12/2021: 1. No acute intrathoracic abnormality. 2. Left 9th rib lytic lesion has progressed with new lytic lesion in the manubrium. These are likely due to history of multiple myeloma. 3. Large amount of high attenuation fluid/soft tissue in the urinary bladder, concerning for blood products. Underlying lesion would be difficult to exclude. Clinical correlation is recommended. 4. No acute intra-abdominal abnormality. 5. Age-indeterminate fracture of the right L3 transverse process. 6. Diverticulosis without diverticulitis. ECHO 03/2021: Summary Left ventricle is normal in size. Global left ventricular systolic function appears low normal. Calculated EF via Torres's method is 50 %. Trivial tricuspid regurgitation. Trivial pulmonic insufficiency. PET 05/2022: 1. HEAD and NECK: No evidence of focal uptake to suggest FDG avid neoplastic process.. 2. CHEST: No evidence of focal uptake to suggest FDG avid neoplastic process.. 3. ABDOMEN/PELVIS: No evidence of focal uptake to suggest FDG avid neoplastic process.. 4. EXTREMITIES/SKELETON: Expansile lesion in the left medial clavicle head, minimal change since prior study. PET Scan 05/2023: Head and Neck: * No evidence of FDG avid neoplastic process Chest: * No evidence of FDG avid neoplastic process Abdomen and pelvis: * No evidence of FDG avid neoplastic process Musculoskeletal: * Significant worsening of the now 5.2 cm manubrial expansile lesion compared to 01/11/2022. * Stable additional findings, as described. I spent a total of 30 minutes on the date of service which included preparing to see the patient, [id number] patient care, completing clinical documentation, obtaining and/or reviewing separately obtained history, performing a medically appropriate examination, counseling and educating the patient/family/caregiver, ordering medications, tests, or procedures, independently interpreting results (not separately reported), communicating results to the patient/family/caregiver, and care coordination (not separately reported). Nelli Aguilar MD, CPE Hematology and Oncology Services Provided at: [place], [place] CC: MD Allie Mixon MD [facility] Tele[facility] encounter Note* Telephone Encounter - Kanika Aquino RN - 02/19/2024 11:54 AM EDT Pt will be seeing you as transition of care pt. Please sign pending orders if you agree. Thanks Kanika Aquino RN [facility]08-21-2024 Miscellaneous Notes* Telephone Encounter - Kanika Aquino RN - 02/19/2024 11:54 AM EDT Pt will be seeing you as transition of care pt. Please sign pending orders if you agree. Thanks Kanika Aquino, RN documented in [facility] NoteThe [facility] History of Present illness Narrative* David Molina MD - 01/22/2024 1:14 PM EDT Et PATIENT NAME: Missy Salgado [facility] NO.: [id number] ATTENDING PHYSICIAN: David Molina MD DATE OF SERVICE: January 22, 2024 Some of the elements of this note have been copied from my previous progress note dated 12/24/2023. All the information has been reviewed carefully. Dear Dr. Allie Solares here is an update on a follow up visit on male Missy Salgado at the clinic January 22, 2024 Diagnosis: 1. Multiple Myeloma- FISH- Normal Treatment History: 1. 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 T9 surgical resection 2010 3. 6 cycles of CyBord 2010 4. L Clavicular mass 01/2017 5. 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 L Orbital mass radiation 09/2018 8. VRD 6 cycles- Completed 05/2019- Brian Maintenance- 05/2021- Progression 9. Rib Xray 05/[address] Gunn at [facility] as well.-- Started Darzalex and Dex 07/26/2021. Dex stopped 09/04/2022- Insomnia- Dariela last dose 04/16/2023 11. Established care with me 09/27/2021 12. Progressive disease 05/2023 13. KPD Started 06/05/2023- Pom dose reduced to 2 mg - Patient did not tolerate well at all and requested therapy to stop due to intolerance. Kyprolis stopped 07/17/2023 and Pom dose reduction also nottolerated and stopped early 08/2023 14. Radiation Sternum 06/10/2023- 800 cGy single fraction 14. Velcade and Dex 08/21/2023- Patient requested to stop 09/19/2023 after Day 1 cycle 2 due to intolerance 15. Ixazomib and Dex 09/2023 - Dropped dose to 4 mg weekly due to insomnia 11/2023 HPI: Missy Salgado is a 83 year old year old male here for follow up. Was admitted locally early December with COVID and weakness. He states that he has not taken his exacerbated and weekly dexamethasone since early December. He had symptoms of weakness prior to taking the dose of exacerbation and subsequently admitted with COVID. He did not have any pulmonary complications.He also did not receive Paxlovid due to the cost according to his in the hospital. Patient was asking if he could take some time off exacerbation as it does make him tired. PAST MEDICAL HISTORY Diagnosis Date CAD (coronary artery disease) Hyperlipidemia Hypertension Multiple myeloma (HCC) Myocardial infarction (HCC) Port-A-Cath in place Presence of Watchman left atrial appendage closure device Social History Tobacco Use Smoking status: Former Packs/day: 1 Types: Cigarettes Quit date: 07/17/1981 Years since quittin.5 Passive exposure: Never Smokeless tobacco: Never Vaping Use Vaping Use: Never used Substance Use Topics Alcohol use: Yes Alcohol/week: 7.0 standard drinks of alcohol Types: 7 Shots of liquor per week Drug use: Never History reviewed. No pertinent family history. Past medical, social and family history reviewed without any changes. REVIEW OF SYSTEMS GENERAL: No weight loss, malaise or fevers. No night sweats. HEENT: Negative for headaches, No changes in hearing or vision, no nose bleeds or other nasal problems. RESPIRATORY: Negative for cough, wheezing and shortness of breath CARDIOVASCULAR: Negative for chest pain, leg swelling and palpitations GI: Negative for abdominal discomfort, blood in stools or black stools and change in bowel habits : Negative for dysuria, frequency and incontinence MUSCULOSKELETAL: Negative for joint pain or swelling, back pain, and muscle pain. SKIN: Negative for lesions, rash, and itching. HEMATOLOGY/LYMPHOLOGY Negative for prolonged bleeding, bruising easily, and swollen nodes. NEURO: Negative for numbness or tingling of hands/feet. No weakness. PHYSICAL EXAMINATION: BP 94/65 Pulse 89 Temp (Src) 97.6 (Temporal) Resp 16 Ht 5' 11.417 (1.81m) Wt 227 lb 8.2 oz (103.2kg) SpO2 96% BMI 31.36 kg/(m^2). Wt 93.1 kg (205 lb 3.2 oz) BMI 27.7 kg/m2 Last 3 Encounter Wt Readings: Date: Wt: 10/31/2021 93.1 kg (205 lb 3.2 oz) 10/17/2021 92.2 kg (203 lb 3.2 oz) 10/03/2021 91.8 kg (202 lb 4.8 oz) General appearance:ECOG PERFORMANCE STATUS: 1- Restricted in physically strenuous activity. Carries out light duty. Patient in NAD. Skin: Skin color, texture, turgor normal. No rashes or lesions. Eyes: Anicteric sclera. Pupils are equally round and reactive to light. Extraocular movements are intact. Lymph Nodes: No cervical, supraclavicular, axillary or inguinal adenopathy. Oropharynx: Lips, mucosa, and tongue normal. Back: No pain to percussion. Negative SLR test Lungs clear to auscultation, No wheezing or rhonchi Heart: RRR without murmur, gallop, or rubs. Abdomen soft, non-tender. No masses, organomegaly Extremities: No deformities. No edema Neuro: Gait and speech normal. Reflexes normal and symmetric. Muscular strength intact. Sensation grossly intact. Rectal: Deferred : Deferred LABS: Glucose (mg/dL) Date Value 12/24/2023 101 08/01/2022 85 Potassium (mmol/L) Date Value 12/24/2023 4.1 08/01/2022 4.5 Sodium (mmol/L) Date Value 12/24/2023 139 08/01/2022 138 Chloride (mmol/L) Date Value 12/24/2023 101 08/01/2022 104 CO2 (mmol/L) Date Value 12/24/2023 29 08/01/2022 25 Creatinine (mg/dL) Date Value 12/24/2023 1.49 CREATININE (mg/dL) Date Value 08/01/2022 1.4 BUN (mg/dL) Date Value 12/24/2023 30 Anion Gap (mmol/L) Date Value 12/24/2023 9 08/01/2022 13.5 Calcium (mg/dL) Date Value 08/01/2022 9.2 Calcium, Total (mg/dL) Date Value 12/24/2023 10.0 Protein, Total (g/dL) Date Value 12/24/2023 7.2 12/24/2023 6.3 08/01/2022 6.6 Albumin (g/dL) Date Value 12/24/2023 4.0 08/01/2022 3.9 Bilirubin, Total (mg/dL) Date Value 12/24/2023 0.4 08/01/2022 0.2 Alkaline Phosphatase (U/L) Date Value 12/24/2023 96 08/01/2022 82.2 AST (U/L) Date Value 12/24/2023 18 08/01/2022 22 ALT (U/L) Date Value 12/24/2023 14 08/01/2022 14 WBC Date Value Ref Range Status 12/24/2023 16.63 (H) 3.70 - 11.00 k/uL Final RBC Date Value Ref Range Status 12/24/2023 3.71 (L) 4.20 - 6.00 m/uL Final Hemoglobin Date Value Ref Range Status 12/24/2023 13.2 13.0 - 17.0 g/dL Final Hematocrit Date Value Ref Range Status 12/24/2023 38.2 (L) 39.0 - 51.0 % Final MCV Date Value Ref Range Status 12/24/2023 103.0 (H) 80.0 - 100.0 fL Final MCH Date Value Ref Range Status 12/24/2023 35.6 (H) 26.0 - 34.0 pg Final MCHC Date Value Ref Range Status 12/24/2023 34.6 30.5 - 36.0 g/dL Final RDW-CV Date Value Ref Range Status 12/24/2023 15.0 11.5 - 15.0 % Final Platelet Count Date Value Ref Range Status 12/24/2023 241 150 - 400 k/uL Final MPV Date Value Ref Range Status 12/24/2023 10.2 9.0 - 12.7 fL Final Abs Neut (Segs + Bands) Date Value Ref Range Status 12/24/2023 13.59 (H) 1.45 - 7.50 k/uL Final Lymphocytes % Date Value Ref Range Status 12/24/2023 12.2 % Final Abs Lymph (Normal + Reactive) Date Value Ref Range Status 12/24/2023 2.03 1.00 - 4.00 k/uL Final Monocytes % Date Value Ref Range Status 12/24/2023 5.2 % Final Abs Tate Date Value Ref Range Status 12/24/2023 0.86 <0.87 k/uL Final Eosin% Date Value Ref Range Status 12/24/2023 0.0 % Final Abs Eosin Date Value Ref Range Status 12/24/2023 0.00 <0.46 k/uL Final Basophils % Date Value Ref Range Status 12/24/2023 0.9 % Final Abs Baso Date Value Ref Range Status 12/24/2023 0.15 (H) <0.11 k/uL Final PATH: BM Biopsy 08/2018: A. Bone marrow, right posterior iliac crest, biopsy, aspirate smear, and peripheral blood smear: - Normocellular bone marrow (30%) with trilineage hematopoiesis and 3% plasma cells, see comment. - Decreased iron stores without ring sideroblasts. B. Bone marrow, right posterior iliac crest, clot section: - Normocellular bone marrow (30%) with trilineage hematopoiesis and 3% plasma cells, see comment. 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 Plasma cells are not increased (3%), confirmed by CD138 stain. In situ hybridization for kappa and lambda light chains appear to be polytypic. The special stain for Congo red performed on the core biopsy and clot section is negative for amyloid deposition. The flow cytometric analysis of the marrow aspirate reveals polytypic plasma cells and no immunophenotypic evidence of an abnormal population of T lymphocytes, B lymphocytes or blasts. Overall, there is no morphologic or immunophenotypic evidence of plasma cell neoplasm. Correlation with clinical findings and cytogenetic/FISH studies is recommended. Probe/Control Range Patient/Interpretation 1p32.3(CDKN2C)-1signal/0-3.6% 0%/negative 1q21.3(CKS1B)-3signals/0-3.7% 0%/negative 3q27(BCL6)-3signals/0-2.2% 0%/negative 9u85-27,5p15.2([id number])-3signals/0-0.6% 0%/negative 8q24(MYC)-bap/0-3.0% 0%/negative 11q22.3(ODILON)-3signals/0-0.6% 0%/negative 12p13(ETV6)-1signal/0-4.1% 0.5%/negative 13q14(RB1)-1signal/0-4.2% 0.5%/negative 13q34(LAMP1)-1signal/0-3.0% 0%/negative 17p13.1(TP53)-1signal/0-3.2% 0.5%/negative 21q22(RUNX1)-3signals/0-0.6% 0%/negative 14q32.3-11q13(IGH-CCND1)/0-0.6% 0%/negative IMAGING: PET 05/2021: 1. Mild metabolic activity associated with the posterior left 9th rib lesion and associated soft tissue mass. 2. No metabolic abnormality identified in the previously described osseous abnormalities in the calvarium, left clavicle and spine. No new site of disease identified. CT of the chest and Abdomen and Pelvis 12/2021: 1. No acute intrathoracic abnormality. 2. Left 9th rib lytic lesion has progressed with new lytic lesion in the manubrium. These are likely due to history of multiple myeloma. 3. Large amount of high attenuation fluid/soft tissue in the urinary bladder, concerning for blood products. Underlying lesion would be difficult to exclude. Clinical correlation is recommended. 4. No acute intra-abdominal abnormality. 5. Age-indeterminate fracture of the right L3 transverse process. 6. Diverticulosis without diverticulitis. ECHO 03/2021: Summary Left ventricle is normal in size. Global left ventricular systolic function appears low normal. Calculated EF via Torres's method is 50 %. Trivial tricuspid regurgitation. Trivial pulmonic insufficiency. PET 05/2022: 1. HEAD and NECK: No evidence of focal uptake to suggest FDG avid neoplastic process.. 2. CHEST: No evidence of focal uptake to suggest FDG avid neoplastic process.. 3. ABDOMEN/PELVIS: No evidence of focal uptake to suggest FDG avid neoplastic process.. 4. EXTREMITIES/SKELETON: Expansile lesion in the left medial clavicle head, minimal change since prior study. PET Scan 05/2023: Head and Neck: * No evidence of FDG avid neoplastic process Chest: * No evidence of FDG avid neoplastic process Abdomen and pelvis: * No evidence of FDG avid neoplastic process Musculoskeletal: * Significant worsening of the now 5.2 cm manubrial expansile lesion compared to 01/11/2022. * Stable additional findings, as described. Assessment and Plan: Missy Salgado is a 83 year old year old male here for follow up. MM- therapy sequences summarized above was started on Darzalex and dex and will continue and followup on myeloma parameters He does not like the dex and will only take it on the days which he gets Darzalex. His myeloma parameters are trending slightly up. His PET 05/2022 was unchanged and no progression. Continue Darzalex. Dex was stopped due to insomnia and follow myeloma parameters, there is an upward trend and PET with sternal progression. Discussed the findings and he has fair amount of comorbidities. Suggested KPD and he has elected to stay locally for therapy. [facility] Started KPD 06/05/2023 and here for cycle 2, day 8 and he has had a good response to therapy as well. Pom Dose decreased to 2 mg, however he tolerated the therapy poorly and has stopped. He does have sig comonrbidities, not a great CAR-T therapy candidate and not interested in bispecifics as well. I dont think that he will tolerate Xpovio well. Suggested velcade qnd Dex and maybe reconsidering adding the CD138 ab back but he did not tolerate the Velcade and Dex and has requested a change in therapy. He has responded well to the previous Pomcombination but he tolerated that poorly as well, even single agent Pom and Dex. Discussed various options and stated that they all have side effects and he is willing to try Ixazomib and Dex. Started at the lowest possible Ixazomib dose and low dose weekly dex in 09/2023 and he is tolerating well, the dexamethasone dose was also decreased to 4 mg weekly due to insomnia. His last dose he took was early December 2023 and he subsequently developed COVID and was admitted for overall weakness but thankfu lly, the COVID did not have any other pulmonary complications. Patient states that he is feeling better he is a little bit ambivalent about restarting things Asciminib and would like to have some time off. I did suggest the importance of maintenance in myeloma, especially the fact that he has had a nice response to therapy. He states that he understood but wanted some time off therapy. I suggested thatwe can continue to monitor his myeloma parameters, as he has had a very good response to therapy, if he develops resurgence of the monoclonal paraprotein he can resume the regimen again. As noted above he has been on multiple regimens all difficulty with tolerance but he appears to have responsive disease. 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 Bladder tumor post TURBT and bleeding and subsequent arrest and transfer to [place].Off Plavix and Xarelto and stable. He will re-establish with urology in [place] and has completed XRT 01/2023 and follows urology , Cysto 08/2023 negative for recurrence Neuropathy- Stable- Saw Neurology and on PT Back pain- Chronic Fatigue Post COVID 12/2023 See back in 4 weeks for labs Thank you for the kind referral. If there are any questions and or concerns please do not hesitate to contact me at [phone]. David Molina MD Hematology/Medical Oncology [facility] I spent a total of 30 minutes on the date of the service which included preparing to see the patient, [id number] patient care, completing clinical documentation, obtaining and/or reviewing separately obtained history, performing a medically appropriate examination, counseling and educating the pat ient/family/caregiver and ordering medications, tests, or procedures. CC: MD Allie Mixon MD [facility] Telephone encounter Note * Telephone Encounter - David Molina MD - 12/30/2023 8:25 PM EDT agree [facility] Miscellaneous Notes* Telephone Encounter - David Molina MD - 12/30/2023 8:25 PM EDT agree * Telephone Encounter - Kanika Aquino RN - 12/30/2023 11:39 AM EDT calls stating they were at a wedding last weekend and there was covid floating around. states she is positive. Pt began having chest congestion this past Saturday. Pt has had 2 tests for covid that have been negative. states pt has a cough, sometimes dry, sometimes he coughs up some clear stuff. Denies any other symptom. No fever, no runny nose, no sore throat. Pt started robitussin yesterday afternoon. Encouraged to continue to monitor for now. Increase fluids, continue with robitussin. Call with worsening symptoms. Please advise if you have other recommendations. Thanks Kanika Aquino RN [facility] Telephone encounter Note * Telephone Encounter - Kanika Aquino RN - 12/30/2023 11:39 AM EDT calls stating they were at a wedding last weekend and there was covid floating around. states she is positive. Pt began having chest congestion this past Saturday. Pt has had 2 tests for covid that have been negative. states pt has a cough, sometimes dry, sometimes he coughs up some clear stuff. Denies any other symptom. No fever, no runny nose, no sore throat. Pt started robitussin yesterday afternoon. Encouraged to continue to monitor for now. Increase fluids, continue with robitussin. Call with worsening symptoms. Please advise if you have other recommendations. Thanks Kanika Aquino RN [facility] Work Phone: [phone] [facility]The [facility] of Present illness Narrative* David Molina MD - 12/24/2023 12:06 PM EDT Et PATIENT NAME: Missy Salgado CLINIC NO.: [id number] ATTENDING PHYSICIAN: David Molina MD DATE OF SERVICE: December 24, 2023 Some of the elements of this note have been copied from my previous progress note dated 10/30/2023. All the information has been reviewed carefully. Dear Dr. Allie Solares here is an update on a follow up visit on male Missy Slagado at the clinic December 24, 2023 Diagnosis: 1. Multiple Myeloma- FISH- Normal Treatment History: 1. 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 T9 surgical resection 2010 3. 6 cycles of CyBord 2010 4. L Clavicular mass 01/2017 5. 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 L Orbital mass radiation 09/2018 8. VRD 6 cycles- Completed 05/2019- Brian Maintenance- 05/2021- Progression 9. Rib Xray 05/[address] Gunn at [facility] as well.-- Started Darzalex and Dex 07/26/2021. Dex stopped 09/04/2022- Insomnia- Dariela last dose 04/16/2023 11. Established care with me 09/27/2021 12. Progressive disease 05/2023 13. KPD Started 06/05/2023- Pom dose reduced to 2 mg - Patient did not tolerate well at all and requested therapy to stop due to intolerance. Kyprolis stopped 07/17/2023 and Pom dose reduction also nottolerated and stopped early 08/2023 14. Radiation Sternum 06/10/2023- 800 cGy single fraction 14. Velcade and Dex 08/21/2023- Patient requested to stop 09/19/2023 after Day 1 cycle 2 due to intolerance 15. Ixazomib and Dex 09/2023 - Dropped dose to 4 mg weekly due to insomnia 11/2023 HPI: Missy Salgado is a 83 year old year old male here for follow up. Doing ok except for fatigue. Denies any nausea and or neuropathy PAST MEDICAL HISTORY Diagnosis Date CAD (coronary artery disease) Hyperlipidemia Hypertension Multiple myeloma (HCC) Myocardial infarction (HCC) Port-A-Cath in place Presence of Watchman left atrial appendage closure device Social History Tobacco Use Smoking status: Former Packs/day: 1 Types: Cigarettes Quit date: 07/17/1981 Years since quittin.4 Passive exposure: Never Smokeless tobacco: Never Vaping Use Vaping Use: Never used Substance Use Topics Alcohol use: Yes Alcohol/week: 7.0 standard drinks of alcohol Types: 7 Shots of liquor per week Drug use: Never History reviewed. No pertinent family history. Past medical, social and family history reviewed without any changes. REVIEW OF SYSTEMS GENERAL: No weight loss, malaise or fevers. No night sweats. HEENT: Negative for headaches, No changes in hearing or vision, no nose bleeds or other nasal problems. RESPIRATORY: Negative for cough, wheezing and shortness of breath CARDIOVASCULAR: Negative for chest pain, leg swelling and palpitations GI: Negative for abdominal discomfort, blood in stools or black stools and change in bowel habits : Negative for dysuria, frequency and incontinence MUSCULOSKELETAL: Negative for joint pain or swelling, back pain, and muscle pain. SKIN: Negative for lesions, rash, and itching. HEMATOLOGY/LYMPHOLOGY Negative for prolonged bleeding, bruising easily, and swollen nodes. NEURO: Negative for numbness or tingling of hands/feet. No weakness. PHYSICAL EXAMINATION: BP 113/72 Pulse 76 Temp (Src) 97.5 (Temporal) Resp 18 Ht 5' 11.417 (1.81m) Wt 229 lb 4.5oz (104.0kg) SpO2 96% BMI 31.61 kg/(m^2). Wt 93.1 kg (205 lb 3.2 oz) BMI 27.7 kg/m2 Last 3 Encounter Wt Readings: Date: Wt: 10/31/2021 93.1 kg (205 lb 3.2 oz) 10/17/2021 92.2 kg (203 lb 3.2 oz) 10/03/2021 91.8 kg (202 lb 4.8 oz) General appearance:ECOG PERFORMANCE STATUS: 1- Restricted in physically strenuous activity. Carries out light duty. Patient in NAD. Skin: Skin color, texture, turgor normal. No rashes or lesions. Eyes: Anicteric sclera. Pupils are equally round and reactive to light. Extraocular movements are intact. Lymph Nodes: No cervical, supraclavicular, axillary or inguinal adenopathy. Oropharynx: Lips, mucosa, and tongue normal. Back: No pain to percussion. Negative SLR test Lungs clear to auscultation, No wheezing or rhonchi Heart: RRR without murmur, gallop, or rubs. Abdomen soft, non-tender. No masses, organomegaly Extremities: No deformities. No edema Neuro: Gait and speech normal. Reflexes normal and symmetric. Muscular strength intact. Sensation grossly intact. Rectal: Deferred : Deferred LABS: Glucose (mg/dL) Date Value 12/24/2023 101 08/01/2022 85 Potassium (mmol/L) Date Value 12/24/2023 4.1 08/01/2022 4.5 Sodium (mmol/L) Date Value 12/24/2023 139 08/01/2022 138 Chloride (mmol/L) Date Value 12/24/2023 101 08/01/2022 104 CO2 (mmol/L) Date Value 12/24/2023 29 08/01/2022 25 Creatinine (mg/dL) Date Value 12/24/2023 1.49 CREATININE (mg/dL) Date Value 08/01/2022 1.4 BUN (mg/dL) Date Value 12/24/2023 30 Anion Gap (mmol/L) Date Value 12/24/2023 9 08/01/2022 13.5 Calcium (mg/dL) Date Value 08/01/2022 9.2 Calcium, Total (mg/dL) Date Value 12/24/2023 10.0 Protein, Total (g/dL) Date Value 12/24/2023 7.2 08/01/2022 6.6 Albumin (g/dL) Date Value 12/24/2023 4.0 08/01/2022 3.9 Bilirubin, Total (mg/dL) Date Value 12/24/2023 0.4 08/01/2022 0.2 Alkaline Phosphatase (U/L) Date Value 12/24/2023 96 08/01/2022 82.2 AST (U/L) Date Value 12/24/2023 18 08/01/2022 22 ALT (U/L) Date Value 12/24/2023 14 08/01/2022 14 WBC Date Value Ref Range Status 12/24/2023 16.63 (H) 3.70 - 11.00 k/uL Preliminary RBC Date Value Ref Range Status 12/24/2023 3.71 (L) 4.20 - 6.00 m/uL Preliminary Hemoglobin Date Value Ref Range Status 12/24/2023 13.2 13.0 - 17.0 g/dL Preliminary Hematocrit Date Value Ref Range Status 12/24/2023 38.2 (L) 39.0 - 51.0 % Preliminary MCV Date Value Ref Range Status 12/24/2023 103.0 (H) 80.0 - 100.0 fL Preliminary MCH Date Value Ref Range Status 12/24/2023 35.6 (H) 26.0 - 34.0 pg Preliminary MCHC Date Value Ref Range Status 12/24/2023 34.6 30.5 - 36.0 g/dL Preliminary RDW-CV Date Value Ref Range Status 12/24/2023 15.0 11.5 - 15.0 % Preliminary Platelet Count Date Value Ref Range Status 12/24/2023 241 150 - 400 k/uL Preliminary MPV Date Value Ref Range Status 12/24/2023 10.2 9.0 - 12.7 fL Preliminary Abs Neut Date Value Ref Range Status 11/26/2023 8.44 (H) 1.45 - 7.50 k/uL Final Lymphocytes % Date Value Ref Range Status 11/26/2023 10.6 % Final Abs Lymph Date Value Ref Range Status 11/26/2023 1.21 1.00 - 4.00 k/uL Final Monocytes % Date Value Ref Range Status 11/26/2023 13.1 % Final Abs Tate Date Value Ref Range Status 11/26/2023 1.50 (H) <0.87 k/uL Final Eosin% Date Value Ref Range Status 10/02/2023 1.8 % Final Abs Eosin Date Value Ref Range Status 11/26/2023 0.16 <0.46 k/uL Final Basophils % Date Value Ref Range Status 11/26/2023 0.4 % Final Abs Baso Date Value Ref Range Status 11/26/2023 0.05 <0.11 k/uL Final PATH: BM Biopsy 08/2018: A. Bone marrow, right posterior iliac crest, biopsy, aspirate smear, and peripheral blood smear: - Normocellular bone marrow (30%) with trilineage hematopoiesis and 3% plasma cells, see comment. - Decreased iron stores without ring sideroblasts. B. Bone marrow, right posterior iliac crest, clot section: - Normocellular bone marrow (30%) with trilineage hematopoiesis and 3% plasma cells, see comment. 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 Plasma cells are not increased (3%), confirmed by CD138 stain. In situ hybridization for kappa and lambda light chains appear to be polytypic. The special stain for Congo red performed on the core biopsy and clot section is negative for amyloid deposition. The flow cytometric analysis of the marrow aspirate reveals polytypic plasma cells and no immunophenotypic evidence of an abnormal population of T lymphocytes, B lymphocytes or blasts. Overall, there is no morphologic or immunophenotypic evidence of plasma cell neoplasm. Correlation with clinical findings and cytogenetic/FISH studies is recommended. Probe/Control Range Patient/Interpretation 1p32.3(CDKN2C)-1signal/0-3.6% 0%/negative 1q21.3(CKS1B)-3signals/0-3.7% 0%/negative 3q27(BCL6)-3signals/0-2.2% 0%/negative 9h97-90,5p15.2([id number]:E1B473)-3signals/0-0.6% 0%/negative 8q24(MYC)-bap/0-3.0% 0%/negative 11q22.3(ODILON)-3signals/0-0.6% 0%/negative 12p13(ETV6)-1signal/0-4.1% 0.5%/negative 13q14(RB1)-1signal/0-4.2% 0.5%/negative 13q34(LAMP1)-1signal/0-3.0% 0%/negative 17p13.1(TP53)-1signal/0-3.2% 0.5%/negative 21q22(RUNX1)-3signals/0-0.6% 0%/negative 14q32.3-11q13(IGH-CCND1)/0-0.6% 0%/negative IMAGING: PET 05/2021: 1. Mild metabolic activity associated with the posterior left 9th rib lesion and associated soft tissue mass. 2. No metabolic abnormality identified in the previously described osseous abnormalities in the calvarium, left clavicle and spine. No new site of disease identified. CT of the chest and Abdomen and Pelvis 12/2021: 1. No acute intrathoracic abnormality. 2. Left 9th rib lytic lesion has progressed with new lytic lesion in the manubrium. These are likely due to history of multiple myeloma. 3. Large amount of high attenuation fluid/soft tissue in the urinary bladder, concerning for blood products. Underlying lesion would be difficult to exclude. Clinical correlation is recommended. 4. No acute intra-abdominal abnormality. 5. Age-indeterminate fracture of the right L3 transverse process. 6. Diverticulosis without diverticulitis. ECHO 03/2021: Summary Left ventricle is normal in size. Global left ventricular systolic function appears low normal. Calculated EF via Torres's method is 50 %. Trivial tricuspid regurgitation. Trivial pulmonic insufficiency. PET 05/2022: 1. HEAD and NECK: No evidence of focal uptake to suggest FDG avid neoplastic process.. 2. CHEST: No evidence of focal uptake to suggest FDG avid neoplastic process.. 3. ABDOMEN/PELVIS: No evidence of focal uptake to suggest FDG avid neoplastic process.. 4. EXTREMITIES/SKELETON: Expansile lesion in the left medial clavicle head, minimal change since prior study. PET Scan 05/2023: Head and Neck: * No evidence of FDG avid neoplastic process Chest: * No evidence of FDG avid neoplastic process Abdomen and pelvis: * No evidence of FDG avid neoplastic process Musculoskeletal: * Significant worsening of the now 5.2 cm manubrial expansile lesion compared to 01/11/2022. * Stable additional findings, as described. Assessment and Plan: Missy Salgado is a 83 year old year old male here for follow up. MM- therapy sequences summarized above was started on Darzalex and dex and will continue and followup on myeloma parameters He does not like the dex and will only take it on the days which he gets Darzalex. His myeloma parameters are trending slightly up. His PET 05/2022 was unchanged and no progression. Continue Darzalex. Dex was stopped due to insomnia and follow myeloma parameters, there is an upward trend and PET with sternal progression. Discussed the findings and he has fair amount of comorbidities. Suggested KPD and he has elected to stay locally for therapy. [facility] Started KPD 06/05/2023 and here for cycle 2, day 8 and he has had a good response to therapy as well. Pom Dose decreased to 2 mg, however he tolerated the therapy poorly and has stopped. He does have sig comonrbidities, not a great CAR-T therapy candidate and not interested in bispecifics as well. I dont think that he will tolerate Xpovio well. Suggested velcade qnd Dex and maybe reconsidering adding the CD138 ab back but he did not tolerate the Velcade and Dex and has requested a change in therapy. He has responded well to the previous Pomcombination but he tolerated that poorly as well, even single agent Pom and Dex. Discussed various options and stated that they all have side effects and he is willing to try Ixazomib and Dex. Started at the lowest possible Ixazomib dose and low dose weekly dex in 09/2023 and he is tolerating well. Will decrease Dex to 4 mg weeklyas still having insomina issues Post sternal XRT 06/10/2023 Discussed bone resorptive agents and patient states that he is not interested understanding the rational for their use. Bladder tumor post TURBT and bleeding and subsequent arrest and transfer to [place].Off Plavix and Xarelto and stable. He will re-establish with urology in [place] and has completed XRT 01/2023 and follows urology , Cysto 08/2023 negative for recurrence Neuropathy- Stable- Saw Neurology and on PT Back pain- Chronic Fatigue See back in 4 weeks for labs and he [facility] Thank you for the kind referral. If there are any questions and or concerns please do not hesitate to contact me at [phone]. David Molina MD Hematology/Medical Oncology [facility] I spent a total of 30 minutes on the date of the service which included preparing to see the patient, [id number] patient care, completing clinical documentation, obtaining and/or reviewing separately obtained history, performing a medically appropriate examination, counseling and educating the pat ient/family/caregiver and ordering medications, tests, or procedures. CC: MD Allie Mixon MD documented [facility] Evaluation note* Diagnosis Multiple myeloma not having achieved remission (HCC) Multiple myeloma, without mention of having achieved remission Stage 3a chronic kidney disease (HCC) documented in this encounter [facility] History of Present illness Narrative* Thi Valera PA-C - 11/26/2023 10:30 AM EDT PATIENT NAME: Missy Salgado [facility] NO.: [id number] ATTENDING PHYSICIAN: David Molina MD DATE OF SERVICE: November 26, 2023 (Elements copied from Dr. Molina's note dated October 30, 2023, have been reviewed and updated where appropriate, and all reflect current assessment and medical decision making during today's encounter,November 26, 2023) CC: Follow up Diagnosis: 1. Multiple Myeloma- FISH- Normal Treatment History: 1. 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 T9 surgical resection 2010 3. 6 cycles of CyBord 2010 4. L Clavicular mass 01/2017 5. 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 L Orbital mass radiation 09/2018 8. VRD 6 cycles- Completed 05/2019- Brian Maintenance- 05/2021- Progression 9. Rib Xray 05/[address] Gunn at [facility] as well.-- Started Darzalex and Dex 07/26/2021. Dex stopped 09/04/2022- Insomnia- Dariela last dose 04/16/2023 11. Established care with ma 09/27/2021 12. Progressive disease 05/2023 13. KPD Started 06/05/2023- Pom dose reduced to 2 mg - Patient did not tolerate well at all and requested therapy to stop due to intolerance. Kyprolis stopped 07/17/2023 and Pom dose reduction also nottolerated and stopped early 08/2023 14. Radiation Sternum 06/10/2023- 800 cGy single fraction 14. Velcade and Dex 08/21/2023- Patient requested to stop 09/19/2023 after Day 1 cycle 2 due to intolerance 15. Ixazomib and Dex 09/2023 HPI: Missy returns for follow up on ixazomib and dex. He complains of fatigue. No fever, chills, pain orswelling. Neuropathy remains the same. Overall feels well. PAST MEDICAL HISTORY Diagnosis Date CAD (coronary artery disease) Hyperlipidemia Hypertension Multiple myeloma (HCC) Myocardial infarction (HCC) Port-A-Cath in place Presence of Watchman left atrial appendage closure device Social History Tobacco Use Smoking status: Former Packs/day: 1 Types: Cigarettes Quit date: 07/17/1981 Years since quittin.3 Passive exposure: Never Smokeless tobacco: Never Vaping Use Vaping Use: Never used Substance Use Topics Alcohol use: Yes Alcohol/week: 7.0 standard drinks of alcohol Types: 7 Shots of liquor per week Drug use: Never No family history on file. Past medical, social and family history reviewed without any changes. REVIEW OF SYSTEMS GENERAL: No weight loss, malaise or fevers. No night sweats. +fatigue HEENT: Negative for headaches, No changes in hearing or vision, no nose bleeds or other nasal problems. RESPIRATORY: Negative for cough, wheezing and shortness of breath CARDIOVASCULAR: Negative for chest pain, leg swelling and palpitations GI: Negative for abdominal discomfort, blood in stools or black stools and change in bowel habits : Negative for dysuria, frequency and incontinence MUSCULOSKELETAL: Negative for joint pain or swelling, back pain, and muscle pain. SKIN: Negative for lesions, rash, and itching. HEMATOLOGY/LYMPHOLOGY Negative for prolonged bleeding, bruising easily, and swollen nodes. NEURO: +neuropathy in feet and legs PHYSICAL EXAMINATION: BP 108/75[RT arm[ Pulse 76 Temp (Src) 97.3 (Temporal) Resp 16 Ht 5' 11.417 (1.81m) Wt 229 lb 15 oz (104.3kg) SpO2 94% BMI 31.70 kg/(m^2). ECOG PERFORMANCE STATUS: 1- Restricted in physically strenuous activity. Carries out light duty. General: Alert and oriented, no distress, pleasant and cooperative. In a wheelchair Heart: Regular, normal S1 and S2, no murmurs, rubs, or gallops Lungs: Clear to auscultation bilaterally Abdomen: Benign Extremities: Feet/ankles without edema, posterior tibial pulses full and symmetrical LABS: Glucose (mg/dL) Date Value 10/30/2023 105 08/01/2022 85 Potassium (mmol/L) Date Value 10/30/2023 4.4 08/01/2022 4.5 Sodium (mmol/L) Date Value 10/30/2023 136 08/01/2022 138 Chloride (mmol/L) Date Value 10/30/2023 101 08/01/2022 104 CO2 (mmol/L) Date Value 10/30/2023 29 08/01/2022 25 Creatinine (mg/dL) Date Value 10/30/2023 1.56 CREATININE (mg/dL) Date Value 08/01/2022 1.4 BUN (mg/dL) Date Value 10/30/2023 25 Anion Gap (mmol/L) Date Value 10/30/2023 6 08/01/2022 13.5 Calcium (mg/dL) Date Value 08/01/2022 9.2 Calcium, Total (mg/dL) Date Value 10/30/2023 8.7 Protein, Total (g/dL) Date Value 10/30/2023 6.3 10/30/2023 5.9 08/01/2022 6.6 Albumin (g/dL) Date Value 10/30/2023 3.7 08/01/2022 3.9 Bilirubin, Total (mg/dL) Date Value 10/30/2023 <0.2 08/01/2022 0.2 Alkaline Phosphatase (U/L) Date Value 10/30/2023 89 08/01/2022 82.2 AST (U/L) Date Value 10/30/2023 18 08/01/2022 22 ALT (U/L) Date Value 10/30/2023 15 08/01/2022 14 WBC Date Value Ref Range Status 11/26/2023 11.44 (H) 3.70 - 11.00 k/uL Final RBC Date Value Ref Range Status 11/26/2023 3.81 (L) 4.20 - 6.00 m/uL Final Hemoglobin Date Value Ref Range Status 11/26/2023 13.2 13.0 - 17.0 g/dL Final Hematocrit Date Value Ref Range Status 11/26/2023 39.5 39.0 - 51.0 % Final MCV Date Value Ref Range Status 11/26/2023 103.7 (H) 80.0 - 100.0 fL Final MCH Date Value Ref Range Status 11/26/2023 34.6 (H) 26.0 - 34.0 pg Final MCHC Date Value Ref Range Status 11/26/2023 33.4 30.5 - 36.0 g/dL Final RDW-CV Date Value Ref Range Status 11/26/2023 13.2 11.5 - 15.0 % Final Platelet Count Date Value Ref Range Status 11/26/2023 214 150 - 400 k/uL Final MPV Date Value Ref Range Status 11/26/2023 10.9 9.0 - 12.7 fL Final Abs Neut Date Value Ref Range Status 11/26/2023 8.44 (H) 1.45 - 7.50 k/uL Final Lymphocytes % Date Value Ref Range Status 11/26/2023 10.6 % Final Abs Lymph Date Value Ref Range Status 11/26/2023 1.21 1.00 - 4.00 k/uL Final Monocytes % Date Value Ref Range Status 11/26/2023 13.1 % Final Abs Tate Date Value Ref Range Status 11/26/2023 1.50 (H) <0.87 k/uL Final Eosin% Date Value Ref Range Status 10/02/2023 1.8 % Final Abs Eosin Date Value Ref Range Status 11/26/2023 0.16 <0.46 k/uL Final Basophils % Date Value Ref Range Status 11/26/2023 0.4 % Final Abs Baso Date Value Ref Range Status 11/26/2023 0.05 <0.11 k/uL Final PATH: BM Biopsy 08/2018: A. Bone marrow, right posterior iliac crest, biopsy, aspirate smear, and peripheral blood smear: - Normocellular bone marrow (30%) with trilineage hematopoiesis and 3% plasma cells, see comment. - Decreased iron stores without ring sideroblasts. B. Bone marrow, right posterior iliac crest, clot section: - Normocellular bone marrow (30%) with trilineage hematopoiesis and 3% plasma cells, see comment. 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 Plasma cells are not increased (3%), confirmed by CD138 stain. In situ hybridization for kappa and lambda light chains appear to be polytypic. The special stain for Congo red performed on the core biopsy and clot section is negative for amyloid deposition. The flow cytometric analysis of the marrow aspirate reveals polytypic plasma cells and no immunophenotypic evidence of an abnormal population of T lymphocytes, B lymphocytes or blasts. Overall, there is no morphologic or immunophenotypic evidence of plasma cell neoplasm. Correlation with clinical findings and cytogenetic/FISH studies is recommended. Probe/Control Range Patient/Interpretation 1p32.3(CDKN2C)-1signal/0-3.6% 0%/negative 1q21.3(CKS1B)-3signals/0-3.7% 0%/negative 3q27(BCL6)-3signals/0-2.2% 0%/negative 2l06-62,5p15.2(MAA1O-A3Y73:I2R706)-3signals/0-0.6% 0%/negative 8q24(MYC)-bap/0-3.0% 0%/negative 11q22.3(ODILON)-3signals/0-0.6% 0%/negative 12p13(ETV6)-1signal/0-4.1% 0.5%/negative 13q14(RB1)-1signal/0-4.2% 0.5%/negative 13q34(LAMP1)-1signal/0-3.0% 0%/negative 17p13.1(TP53)-1signal/0-3.2% 0.5%/negative 21q22(RUNX1)-3signals/0-0.6% 0%/negative 14q32.3-11q13(IGH-CCND1)/0-0.6% 0%/negative IMAGING: PET 05/2021: 1. Mild metabolic activity associated with the posterior left 9th rib lesion and associated soft tissue mass. 2. No metabolic abnormality identified in the previously described osseous abnormalities in the calvarium, left clavicle and spine. No new site of disease identified. CT of the chest and Abdomen and Pelvis 12/2021: 1. No acute intrathoracic abnormality. 2. Left 9th rib lytic lesion has progressed with new lytic lesion in the manubrium. These are likely due to history of multiple myeloma. 3. Large amount of high attenuation fluid/soft tissue in the urinary bladder, concerning for blood products. Underlying lesion would be difficult to exclude. Clinical correlation is recommended. 4. No acute intra-abdominal abnormality. 5. Age-indeterminate fracture of the right L3 transverse process. 6. Diverticulosis without diverticulitis. ECHO 03/2021: Summary Left ventricle is normal in size. Global left ventricular systolic function appears low normal. Calculated EF via Torres's method is 50 %. Trivial tricuspid regurgitation. Trivial pulmonic insufficiency. PET 05/2022: 1. HEAD and NECK: No evidence of focal uptake to suggest FDG avid neoplastic process.. 2. CHEST: No evidence of focal uptake to suggest FDG avid neoplastic process.. 3. ABDOMEN/PELVIS: No evidence of focal uptake to suggest FDG avid neoplastic process.. 4. EXTREMITIES/SKELETON: Expansile lesion in the left medial clavicle head, minimal change since prior study. PET Scan 05/2023: Head and Neck: * No evidence of FDG avid neoplastic process Chest: * No evidence of FDG avid neoplastic process Abdomen and pelvis: * No evidence of FDG avid neoplastic process Musculoskeletal: * Significant worsening of the now 5.2 cm manubrial expansile lesion compared to 01/11/2022. * Stable additional findings, as described. Assessment and Plan: Missy Salgado is a 83 year old year old male here for follow up. MM- therapy sequences summarized above was started on Darzalex and dex and will continue and followup on myeloma parameters He does not like the dex and will only take it on the days which he gets Darzalex. His myeloma parameters are trending slightly up. His PET 05/2022 was unchanged and no progression. Continue Darzalex. Dex was stopped due to insomnia and follow myeloma parameters, there is an upward trend and PET with sternal progression. Discussed the findings and he has fair amount of comorbidities. Suggested KPD and he has elected to stay locally for therapy. [facility] Started KPD 06/05/2023 and here for cycle 2, day 8 and he has had a good response to therapy as well. Pom Dose decreased to 2 mg, however he tolerated the therapy poorly and has stopped. He does have sig comonrbidities, not a great CAR-T therapy candidate and not interested in bispecifics as well. I dont think that he will tolerate Xpovio well. Suggested velcade qnd Dex and maybe reconsidering adding the CD138 ab back but he did not tolerate the Velcade and Dex and has requested a change in therapy. He has responded well to the previous Pomcombination but he tolerated that poorly as well, even single agent Pom and Dex. Discussed various options and stated that they all have side effects and he is willing to try Ixazomib and Dex. Started at the lowest possible Ixazomib dose and low dose weekly dex in 09/2023 and he is tolerating well. Will continue. Is doing better with dex 8 mg weekly and refill sent. Return in 4 weeks with repeat labs and follow up. Monitor myeloma labs. 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 Bladder tumor post TURBT and bleeding and subsequent arrest and transfer to [place].Off Plavix and Xarelto and stable. He will re-establish with urology in [place] and has completed XRT 01/2023 and follows urology , Cysto 08/2023 negative for recurrence Neuropathy- Stable- Saw Neurology and on PT Back pain- Chronic Return in 4 weeks with labs. Thi Valera PA-C CC: MD Allie Mixon MD I spent a total of 22 minutes on the date of the service which included preparing to see the patient, [id number] patient care, completing clinical documentation, performing a medically appropriate examination, counseling and educating the patient/family/caregiver, ordering medications, tests, or p rocedures, independently interpreting results (not separately reported), and communicating results to the patient/family/caregiver. [facility] Note[facility]* Diagnosis Multiple myeloma not having achieved remission (HCC)- Primary Multiple myeloma, without mention of having achieved remission Stage 3a chronic kidney disease (HCC) documented in this encounter [facility] Telephone encounter Note* Telephone Encounter - Kanika Aquino RN - 11/01/2023 12:29 PM EDT Pt notified Kanika Aquino RN [facility] Work Phone: [phone] Miscellaneous Notes* Telephone Encounter - Kanika Aquino RN - 11/01/2023 12:29 PM EDT Pt notified Kanika Aquino RN * Telephone Encounter - Kanika Aquino RN - 11/01/2023 12:27 PM EDT ----- Message from David Molina MD sent at 11/01/2023 10:12 AM EDT ----- Call Wade with good disease control documented in this [facility]-2024 Telephone encounter Note * Telephone Encounter - Kanika Aquino RN - 11/01/2023 12:27 PM EDT ----- Message from David Molina MD sent at 11/01/2023 10:12 AM EDT ----- Call Wade with good disease control [facility]The [facility] History of Present illness Narrative* David Molina MD - 10/30/2023 2:55 PM EDT Et PATIENT NAME: Missy Salgado [facility] NO.: [id number] ATTENDING PHYSICIAN: David Molina MD DATE OF SERVICE: October 30, 2023 Some of the elements of this note have been copied from my previous progress note dated 10/02/2023. All the information has been reviewed carefully. Dear Dr. Allie Solares here is an update on a follow up visit on male Missy Salgado at the clinic October 30, 2023 Diagnosis: 1. Multiple Myeloma- FISH- Normal Treatment History: 1. 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 T9 surgical resection 2010 3. 6 cycles of CyBord 2010 4. L Clavicular mass 01/2017 5. 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 L Orbital mass radiation 09/2018 8. VRD 6 cycles- Completed 05/2019- Brian Maintenance- 05/2021- Progression 9. Rib Xray 05/[address] Gunn at [facility] as well.-- Started Darzalex and Dex 07/26/2021. Dex stopped 09/04/2022- Insomnia- Dariela last dose 04/16/2023 11. Established care with me 09/27/2021 12. Progressive disease 05/2023 13. KPD Started 06/05/2023- Pom dose reduced to 2 mg - Patient did not tolerate well at all and requested therapy to stop due to intolerance. Kyprolis stopped 07/17/2023 and Pom dose reduction also nottolerated and stopped early 08/2023 14. Radiation Sternum 06/10/2023- 800 cGy single fraction 14. Velcade and Dex 08/21/2023- Patient requested to stop 09/19/2023 after Day 1 cycle 2 due to intolerance 15. Ixazomib and Dex 09/2023 HPI: Missy Salgado is a 83 year old year old male here for follow up. He has tolerated the low Dose Ixa quiet well and denies any fevers and or chills. Denies any abdomianl pain and also worsening neuropathy. No pain PAST MEDICAL HISTORY Diagnosis Date CAD (coronary artery disease) Hyperlipidemia Hypertension Multiple myeloma (HCC) Myocardial infarction (HCC) Port-A-Cath in place Presence of Watchman left atrial appendage closure device Social History Tobacco Use Smoking status: Former Packs/day: 1 Types: Cigarettes Quit date: 07/17/1981 Years since quittin.3 Passive exposure: Never Smokeless tobacco: Never Vaping Use Vaping Use: Never used Substance Use Topics Alcohol use: Yes Alcohol/week: 7.0 standard drinks of alcohol Types: 7 Shots of liquor per week Drug use: Never History reviewed. No pertinent family history. Past medical, social and family history reviewed without any changes. REVIEW OF SYSTEMS GENERAL: No weight loss, malaise or fevers. No night sweats. HEENT: Negative for headaches, No changes in hearing or vision, no nose bleeds or other nasal problems. RESPIRATORY: Negative for cough, wheezing and shortness of breath CARDIOVASCULAR: Negative for chest pain, leg swelling and palpitations GI: Negative for abdominal discomfort, blood in stools or black stools and change in bowel habits : Negative for dysuria, frequency and incontinence MUSCULOSKELETAL: Negative for joint pain or swelling, back pain, and muscle pain. SKIN: Negative for lesions, rash, and itching. HEMATOLOGY/LYMPHOLOGY Negative for prolonged bleeding, bruising easily, and swollen nodes. NEURO: Negative for numbness or tingling of hands/feet. No weakness. PHYSICAL EXAMINATION: BP 120/75 Pulse 77 Temp (Src) 97 (Temporal) Resp 18 Ht 5' 11.417 (1.81m) Wt 226 lb 6.6 oz (102.7kg) SpO2 94% BMI 31.21 kg/(m^2). Wt 93.1 kg (205 lb 3.2 oz) BMI 27.7 kg/m2 Last 3 Encounter Wt Readings: Date: Wt: 10/31/2021 93.1 kg (205 lb 3.2 oz) 10/17/2021 92.2 kg (203 lb 3.2 oz) 10/03/2021 91.8 kg (202 lb 4.8 oz) General appearance:ECOG PERFORMANCE STATUS: 1- Restricted in physically strenuous activity. Carries out light duty. Patient in NAD. Skin: Skin color, texture, turgor normal. No rashes or lesions. Eyes: Anicteric sclera. Pupils are equally round and reactive to light. Extraocular movements are intact. Lymph Nodes: No cervical, supraclavicular, axillary or inguinal adenopathy. Oropharynx: Lips, mucosa, and tongue normal. Back: No pain to percussion. Negative SLR test Lungs clear to auscultation, No wheezing or rhonchi Heart: RRR without murmur, gallop, or rubs. Abdomen soft, non-tender. No masses, organomegaly Extremities: No deformities. No edema Neuro: Gait and speech normal. Reflexes normal and symmetric. Muscular strength intact. Sensation grossly intact. Rectal: Deferred : Deferred LABS: Glucose (mg/dL) Date Value 10/02/2023 153 08/01/2022 85 Potassium (mmol/L) Date Value 10/02/2023 4.7 08/01/2022 4.5 Sodium (mmol/L) Date Value 10/02/2023 137 08/01/2022 138 Chloride (mmol/L) Date Value 10/02/2023 101 08/01/2022 104 CO2 (mmol/L) Date Value 10/02/2023 26 08/01/2022 25 Creatinine (mg/dL) Date Value 10/02/2023 1.90 CREATININE (mg/dL) Date Value 08/01/2022 1.4 BUN (mg/dL) Date Value 10/02/2023 25 Anion Gap (mmol/L) Date Value 10/02/2023 10 08/01/2022 13.5 Calcium (mg/dL) Date Value 08/01/2022 9.2 Calcium, Total (mg/dL) Date Value 10/02/2023 9.9 Protein, Total (g/dL) Date Value 10/02/2023 6.4 08/01/2022 6.6 Albumin (g/dL) Date Value 10/02/2023 3.8 08/01/2022 3.9 Bilirubin, Total (mg/dL) Date Value 10/02/2023 <0.2 08/01/2022 0.2 Alkaline Phosphatase (U/L) Date Value 10/02/2023 112 08/01/2022 82.2 AST (U/L) Date Value 10/02/2023 26 08/01/2022 22 ALT (U/L) Date Value 10/02/2023 20 08/01/2022 14 WBC Date Value Ref Range Status 10/30/2023 10.61 3.70 - 11.00 k/uL Final RBC Date Value Ref Range Status 10/30/2023 3.54 (L) 4.20 - 6.00 m/uL Final Hemoglobin Date Value Ref Range Status 10/30/2023 12.6 (L) 13.0 - 17.0 g/dL Final Hematocrit Date Value Ref Range Status 10/30/2023 37.5 (L) 39.0 - 51.0 % Final MCV Date Value Ref Range Status 10/30/2023 105.9 (H) 80.0 - 100.0 fL Final MCH Date Value Ref Range Status 10/30/2023 35.6 (H) 26.0 - 34.0 pg Final MCHC Date Value Ref Range Status 10/30/2023 33.6 30.5 - 36.0 g/dL Final RDW-CV Date Value Ref Range Status 10/30/2023 12.5 11.5 - 15.0 % Final Platelet Count Date Value Ref Range Status 10/30/2023 191 150 - 400 k/uL Final MPV Date Value Ref Range Status 10/30/2023 10.7 9.0 - 12.7 fL Final Abs Neut Date Value Ref Range Status 10/30/2023 7.72 (H) 1.45 - 7.50 k/uL Final Lymphocytes % Date Value Ref Range Status 10/30/2023 12.1 % Final Abs Lymph Date Value Ref Range Status 10/30/2023 1.28 1.00 - 4.00 k/uL Final Monocytes % Date Value Ref Range Status 10/30/2023 12.3 % Final Abs Tate Date Value Ref Range Status 10/30/2023 1.30 (H) <0.87 k/uL Final Eosin% Date Value Ref Range Status 10/02/2023 1.8 % Final Abs Eosin Date Value Ref Range Status 10/30/2023 0.21 <0.46 k/uL Final Basophils % Date Value Ref Range Status 10/30/2023 0.5 % Final Abs Baso Date Value Ref Range Status 10/30/2023 0.05 <0.11 k/uL Final PATH: BM Biopsy 08/2018: A. Bone marrow, right posterior iliac crest, biopsy, aspirate smear, and peripheral blood smear: - Normocellular bone marrow (30%) with trilineage hematopoiesis and 3% plasma cells, see comment. - Decreased iron stores without ring sideroblasts. B. Bone marrow, right posterior iliac crest, clot section: - Normocellular bone marrow (30%) with trilineage hematopoiesis and 3% plasma cells, see comment. 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 Plasma cells are not increased (3%), confirmed by CD138 stain. In situ hybridization for kappa and lambda light chains appear to be polytypic. The special stain for Congo red performed on the core biopsy and clot section is negative for amyloid deposition. The flow cytometric analysis of the marrow aspirate reveals polytypic plasma cells and no immunophenotypic evidence of an abnormal population of T lymphocytes, B lymphocytes or blasts. Overall, there is no morphologic or immunophenotypic evidence of plasma cell neoplasm. Correlation with clinical findings and cytogenetic/FISH studies is recommended. Probe/Control Range Patient/Interpretation 1p32.3(CDKN2C)-1signal/0-3.6% 0%/negative 1q21.3(CKS1B)-3signals/0-3.7% 0%/negative 3q27(BCL6)-3signals/0-2.2% 0%/negative 1b81-60,5p15.2(SBU3C-D1R36:G0Y275)-3signals/0-0.6% 0%/negative 8q24(MYC)-bap/0-3.0% 0%/negative 11q22.3(ODILON)-3signals/0-0.6% 0%/negative 12p13(ETV6)-1signal/0-4.1% 0.5%/negative 13q14(RB1)-1signal/0-4.2% 0.5%/negative 13q34(LAMP1)-1signal/0-3.0% 0%/negative 17p13.1(TP53)-1signal/0-3.2% 0.5%/negative 21q22(RUNX1)-3signals/0-0.6% 0%/negative 14q32.3-11q13(IGH-CCND1)/0-0.6% 0%/negative IMAGING: PET 05/2021: 1. Mild metabolic activity associated with the posterior left 9th rib lesion and associated soft tissue mass. 2. No metabolic abnormality identified in the previously described osseous abnormalities in the calvarium, left clavicle and spine. No new site of disease identified. CT of the chest and Abdomen and Pelvis 12/2021: 1. No acute intrathoracic abnormality. 2. Left 9th rib lytic lesion has progressed with new lytic lesion in the manubrium. These are likely due to history of multiple myeloma. 3. Large amount of high attenuation fluid/soft tissue in the urinary bladder, concerning for blood products. Underlying lesion would be difficult to exclude. Clinical correlation is recommended. 4. No acute intra-abdominal abnormality. 5. Age-indeterminate fracture of the right L3 transverse process. 6. Diverticulosis without diverticulitis. ECHO 03/2021: Summary Left ventricle is normal in size. Global left ventricular systolic function appears low normal. Calculated EF via Torres's method is 50 %. Trivial tricuspid regurgitation. Trivial pulmonic insufficiency. PET 05/2022: 1. HEAD and NECK: No evidence of focal uptake to suggest FDG avid neoplastic process.. 2. CHEST: No evidence of focal uptake to suggest FDG avid neoplastic process.. 3. ABDOMEN/PELVIS: No evidence of focal uptake to suggest FDG avid neoplastic process.. 4. EXTREMITIES/SKELETON: Expansile lesion in the left medial clavicle head, minimal change since prior study. PET Scan 05/2023: Head and Neck: * No evidence of FDG avid neoplastic process Chest: * No evidence of FDG avid neoplastic process Abdomen and pelvis: * No evidence of FDG avid neoplastic process Musculoskeletal: * Significant worsening of the now 5.2 cm manubrial expansile lesion compared to 01/11/2022. * Stable additional findings, as described. Assessment and Plan: Missy Salgado is a 83 year old year old male here for follow up. MM- therapy sequences summarized above was started on Darzalex and dex and will continue and followup on myeloma parameters He does not like the dex and will only take it on the days which he gets Darzalex. His myeloma parameters are trending slightly up. His PET 05/2022 was unchanged and no progression. Continue Darzalex. Dex was stopped due to insomnia and follow myeloma parameters, there is an upward trend and PET with sternal progression. Discussed the findings and he has fair amount of comorbidities. Suggested KPD and he has elected to stay locally for therapy. [facility] Started KPD 06/05/2023 and here for cycle 2, day 8 and he has had a good response to therapy as well. Pom Dose decreased to 2 mg, however he tolerated the therapy poorly and has stopped. He does have sig comonrbidities, not a great CAR-T therapy candidate and not interested in bispecifics as well. I dont think that he will tolerate Xpovio well. Suggested velcade qnd Dex and maybe reconsidering adding the CD138 ab back but he did not tolerate the Velcade and Dex and has requested a change in therapy. He has responded well to the previous Pomcombination but he tolerated that poorly as well, even single agent Pom and Dex. Discussed various options and stated that they all have side effects and he is willing to try Ixazomib and Dex. Started at the lowest possible Ixazomib dose and low dose weekly dex in 09/2023 and he is tolerating well. Will decrease Dex to 8 mg weekly Post sternal XRT 06/10/2023 Discussed bone resorptive agents and patient states that he is not interested understanding the rational for their use. Bladder tumor post TURBT and bleeding and subsequent arrest and transfer to [place].Off Plavix and Xarelto and stable. He will re-establish with urology in [place] and has completed XRT 01/2023 and follows urology , Cysto 08/2023 negative for recurrence Neuropathy- Stable- Saw Neurology and on PT Back pain- Chronic See back in 4 weeks for labs and [facility] Thank you for the kind referral. If there are any questions and or concerns please do not hesitate to contact me at [phone]. David Molina MD Hematology/Medical Oncology [facility] I spent a total of 30 minutes on the date of the service which included preparing to see the patient, [id number] patient care, completing clinical documentation, obtaining and/or reviewing separately obtained history, performing a medically appropriate examination, counseling and educating the pat ient/family/caregiver and ordering medications, tests, or procedures. CC: MD Allie Mixon MD documented in this [facility]04-17-2024 Miscellaneous Notes* Telephone Encounter - David Molina MD - 10/16/2023 12:50 AM EDT Thanks for the update * Telephone Encounter - Kanika Aquino RN - 10/15/2023 12:42 PM EDT Call placed to pt to see how he is doing since starting Ninlaro. Pt states he's a little more lightheaded than normal, and this is most of the time. Pt is drinking plenty of fluids >60 oz day per . Pt is flushed every evening, however doesn't feel feverish and doesn't have an elevated temperature. Pt is taking his dex weekly with his chemo pill. Pt is due to take his second dose tomorrow. Pt's back pain seems to be worse also. He is taking Tylenol arthritis during the day and Tylenol PM at bedtime with good relief. Kanika Aquino RN documented in this encounter[facility]04-16-2024 Miscellaneous Notes* Telephone Encounter - Kanika Aquino RN - 10/15/2023 12:31 PM EDT [facility] FOLLOW-UP PHONE CALL/VISIT Patient identified by name and date of . YES Patient is on cycle 1, week 1, of Ninlaro (ixazomib) for Multiple Myeloma. SYMPTOM ASSESSMENT Headache: No Dizziness/lightheadedness: Yes most of the time, worse than normal. Do you have any periods of confusion? No Mood changes: No Mouth or throat pain: No Appetite: no changes in appetite, appetite good Taste changes: No Nausea: No Vomiting: No Heartburn: No. Weight gain/loss: Unable to assess Episodes of palpitations/chest discomfort/pressure/pain No Shortness of breath: No Cough: No Diarrhea: no Constipation: no Bladder/Urinary Changes: None Pain: back pain seems a little worse, tylenol arthritis during the day and tylenol pm at night works well, gives good relief. Fever: No Chills: No Numbness/weakness: No Edema: No Skin changes: pt states he feels flushed every evening Itching: No Yellowing of skin or eyes: No Musculoskeletal/joint changes/issues No Bleeding issues: No Activity Level (0-100%): fatigue 6/10 Does the patient need interventions or same day appointment:No ADDITIONAL FOLLOW UP: The next outreach call is due on: as needed and was scheduled as needed The following lab tests are due: monoclonal protein, protein electrophoresis, CMP, CBC Verified patient is aware of next appointment in the cancer center: Yes. Verified patient verbalized how to correctly refill the oral agent [facility]. [facility] Does the patient have any financial difficulties affording this medication? No Patient verbalizes understanding of when to seek Medical Attention? YES Patient verbalizes understanding of after-hours and weekend phone number? YES Patient verbalized importance of medication compliance in taking the oral agent as prescribed. Patient instructed to call if unable to comply. Kanika Aquino RN documented in [facility]-2024 Miscellaneous Notes* Telephone Encounter - Kanika Aquino RN - 10/09/2023 1:05 PM EDT Call received from pt's that medication was delivered yesterday. Patient started/will start taking Ixazomib today. Kanika Aquino RN * Telephone Encounter - Kanika Aquino RN - 10/08/2023 2:23 PM EDT Spoke with pt's who states they still have not received pt's chemotherapy in the mail. notified that [place] has approved the medication and it was to be shipped out yesterday fro delivery today. She will call our office as soon as they get it. Kanika Aquino RN documented in this encounterSouth[facility]04-09-2024 Miscellaneous Notes* Telephone Encounter - Kelli Lowry RPh - 10/08/2023 9:53 AM EDT Call placed to the [facility] pharmacy - they advised the Ninlaro was shipped out yesterday and will be delivered today. Will not need assistance from [employer]. documented in this encounterSouth[facility]04-05-2024 NoteThe [facility]04-[facility] History of Present illness Narrative* Kanika Aquino, RN - 10/04/2023 2:43 PM EDT ORAL ANTI-CANCER AGENTS EDUCATION Telephone education Patient and spouse called today for oral medication education of Ninlaro (ixazomib) for Multiple Myeloma READINESS TO LEARN Cognitive Ability: Alert and oriented Motivation to Learn: Interested Family Support: High - Very involved in pt care Instruction Provided to: Patient and Spouse Patient learns best by: Multiple Methods Factors affecting learning: None Physical limitation affecting learning: None LAWLER ASSESSMENT: 1.) Verified that patient knows that the oral agents are for cancer and are taken by mouth. Yes 2.) Medication review completed during visit. Yes 3.) Patient is able to swallow pills. Yes 4.) Patient is able to read the drug label/information. Yes 5.) Patient is able to open the medication bottles and packages. Yes 6.) Has patient taken other pills for cancer? YES, please explain: pomalyst, revlimid 7.) Is patient experiencing any symptoms that would affect their ability to keep down pills, for example nausea or vomiting? No 8.) Verified that patient understands prescription delivery, benefit investigation and refill process. Yes Pt has filled previous medications [place]. This is in process with them and will have a final determination the middle of next week. Pt/ gave two verbals over the phone today to have free drug application filled out and submitted to [employer]. DRUG-SPECIFIC EDUCATION: 1.) Verified patient knows the drug name. Yes 2.) Verified patient understands the dose and schedule of oral anti cancer agent. Yes 3.) Verified patient knows what to do if a medication dose is missed. Yes 4.) Verified patient understands where to store the drug. Yes 5.) Verified patient understands potential side effects and how to manage them. Yes 6.)Verified patient understands handling precautions of oral anti cancer agent. Yes 7.) Verified patient was given written instructions and understands when and whom to call with questions. Yes 8.) Verified patient understands where and how to return drug. Yes 9.) Verified patient received drug specific adult education handout and neutropenic wallet card Yes EVALUATE: The patient and spouse demonstrated an understanding of all the above education using the teach-back method. Yes Instructed to call us with any questions, concerns, and/or unresolved symptoms. Will continue to follow up and provide reinforcement of teaching topics as needed. Kanika Aquino, RN documented in this encounterSouth[facility]04-03-2024 NoteThe [facility]04-03-2024 History of Present illness Narrative* David Molina MD - 10/02/2023 1:47 PM EDT Et PATIENT NAME: Missy Salgado [facility] NO.: [id number] ATTENDING PHYSICIAN: David Molina MD DATE OF SERVICE: October 02, 2023 Some of the elements of this note have been copied from my previous progress note dated 08/21/2023. All the information has been reviewed carefully. Dear Dr. Allie Solares here is an update on a follow up visit on male Missy Salgado at the clinic October 02, 2023 Diagnosis: 1. Multiple Myeloma- FISH- Normal Treatment History: 1. 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 T9 surgical resection 2010 3. 6 cycles of CyBord 2010 4. L Clavicular mass 01/2017 5. 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 L Orbital mass radiation 09/2018 8. VRD 6 cycles- Completed 05/2019- Brian Maintenance- 05/2021- Progression 9. Rib Xray 05/[address] Gunn at [facility] as well.-- Started Darzalex and Dex 07/26/2021. Dex stopped 09/04/2022- Insomnia- Dariela last dose 04/16/2023 11. Established care with me 09/27/2021 12. Progressive disease 05/2023 13. KPD Started 06/05/2023- Pom dose reduced to 2 mg - Patient did not tolerate well at all and requested therapy to stop due to intolerance. Kyprolis stopped 07/17/2023 and Pom dose reduction also nottolerated and stopped early 08/2023 14. Radiation Sternum 06/10/2023- 800 cGy single fraction 14. Velcade and Dex 08/21/2023- Patient requested to stop 09/19/2023 after Day 1 cycle 2 due to intolerance HPI: Missy Salgado is a 83 year old year old male here for follow up. Patient states that he felt terrible after the last Velcade dosing and at this time he refuses additional Velcade and wants an alternative treatment. He states that his sternal pain has improved. PAST MEDICAL HISTORY Diagnosis Date CAD (coronary artery disease) Hyperlipidemia Hypertension Multiple myeloma (HCC) Myocardial infarction (HCC) Port-A-Cath in place Presence of Watchman left atrial appendage closure device Social History Tobacco Use Smoking status: Former Packs/day: 1 Types: Cigarettes Quit date: 07/17/1981 Years since quittin.2 Passive exposure: Never Smokeless tobacco: Never Vaping Use Vaping Use: Never used Substance Use Topics Alcohol use: Yes Alcohol/week: 7.0 standard drinks of alcohol Types: 7 Shots of liquor per week Drug use: Never History reviewed. No pertinent family history. Past medical, social and family history reviewed without any changes. REVIEW OF SYSTEMS GENERAL: No weight loss, malaise or fevers. No night sweats. HEENT: Negative for headaches, No changes in hearing or vision, no nose bleeds or other nasal problems. RESPIRATORY: Negative for cough, wheezing and shortness of breath CARDIOVASCULAR: Negative for chest pain, leg swelling and palpitations GI: Negative for abdominal discomfort, blood in stools or black stools and change in bowel habits : Negative for dysuria, frequency and incontinence MUSCULOSKELETAL: Negative for joint pain or swelling, back pain, and muscle pain. SKIN: Negative for lesions, rash, and itching. HEMATOLOGY/LYMPHOLOGY Negative for prolonged bleeding, bruising easily, and swollen nodes. NEURO: Negative for numbness or tingling of hands/feet. No weakness. PHYSICAL EXAMINATION: BP 101/59 Pulse 86 Temp (Src) 97.3 (Temporal) Resp 16 Ht 5' 11.417 (1.81m) Wt 224 lb 13.9 oz (102.0kg) SpO2 95% BMI 31.00 kg/(m^2). Wt 93.1 kg (205 lb 3.2 oz) BMI 27.7 kg/m2 Last 3 Encounter Wt Readings: Date: Wt: 10/31/2021 93.1 kg (205 lb 3.2 oz) 10/17/2021 92.2 kg (203 lb 3.2 oz) 10/03/2021 91.8 kg (202 lb 4.8 oz) General appearance:ECOG PERFORMANCE STATUS: 1- Restricted in physically strenuous activity. Carries out light duty. Patient in NAD. Skin: Skin color, texture, turgor normal. No rashes or lesions. Eyes: Anicteric sclera. Pupils are equally round and reactive to light. Extraocular movements are intact. Lymph Nodes: No cervical, supraclavicular, axillary or inguinal adenopathy. Oropharynx: Lips, mucosa, and tongue normal. Back: No pain to percussion. Negative SLR test Lungs clear to auscultation, No wheezing or rhonchi Heart: RRR without murmur, gallop, or rubs. Abdomen soft, non-tender. No masses, organomegaly Extremities: No deformities. No edema Neuro: Gait and speech normal. Reflexes normal and symmetric. Muscular strength intact. Sensation grossly intact. Rectal: Deferred : Deferred LABS: Glucose (mg/dL) Date Value 09/26/2023 99 08/01/2022 85 Potassium (mmol/L) Date Value 09/26/2023 4.0 08/01/2022 4.5 Sodium (mmol/L) Date Value 09/26/2023 138 08/01/2022 138 Chloride (mmol/L) Date Value 09/26/2023 101 08/01/2022 104 CO2 (mmol/L) Date Value 09/26/2023 27 08/01/2022 25 Creatinine (mg/dL) Date Value 09/26/2023 1.34 CREATININE (mg/dL) Date Value 08/01/2022 1.4 BUN (mg/dL) Date Value 09/26/2023 23 Anion Gap (mmol/L) Date Value 09/26/2023 10 08/01/2022 13.5 Calcium (mg/dL) Date Value 08/01/2022 9.2 Calcium, Total (mg/dL) Date Value 09/26/2023 9.2 Protein, Total (g/dL) Date Value 09/26/2023 6.3 08/01/2022 6.6 Albumin (g/dL) Date Value 09/26/2023 3.5 08/01/2022 3.9 Bilirubin, Total (mg/dL) Date Value 09/26/2023 0.2 08/01/2022 0.2 Alkaline Phosphatase (U/L) Date Value 09/26/2023 98 08/01/2022 82.2 AST (U/L) Date Value 09/26/2023 14 08/01/2022 22 ALT (U/L) Date Value 09/26/2023 10 08/01/2022 14 WBC Date Value Ref Range Status 10/02/2023 11.07 (H) 3.70 - 11.00 k/uL Preliminary RBC Date Value Ref Range Status 10/02/2023 3.26 (L) 4.20 - 6.00 m/uL Preliminary Hemoglobin Date Value Ref Range Status 10/02/2023 12.1 (L) 13.0 - 17.0 g/dL Preliminary Hematocrit Date Value Ref Range Status 10/02/2023 36.4 (L) 39.0 - 51.0 % Preliminary MCV Date Value Ref Range Status 10/02/2023 111.7 (H) 80.0 - 100.0 fL Preliminary MCH Date Value Ref Range Status 10/02/2023 37.1 (H) 26.0 - 34.0 pg Preliminary MCHC Date Value Ref Range Status 10/02/2023 33.2 30.5 - 36.0 g/dL Preliminary RDW-CV Date Value Ref Range Status 10/02/2023 12.2 11.5 - 15.0 % Preliminary Platelet Count Date Value Ref Range Status 10/02/2023 322 150 - 400 k/uL Preliminary MPV Date Value Ref Range Status 10/02/2023 9.5 9.0 - 12.7 fL Preliminary Abs Neut Date Value Ref Range Status 09/26/2023 9.95 (H) 1.45 - 7.50 k/uL Final Lymphocytes % Date Value Ref Range Status 09/26/2023 9.4 % Final Abs Lymph Date Value Ref Range Status 09/26/2023 1.24 1.00 - 4.00 k/uL Final Monocytes % Date Value Ref Range Status 09/26/2023 12.2 % Final Abs Tate Date Value Ref Range Status 09/26/2023 1.61 (H) <0.87 k/uL Final Eosin% Date Value Ref Range Status 08/21/2023 4.0 % Final Abs Eosin Date Value Ref Range Status 09/26/2023 0.20 <0.46 k/uL Final Basophils % Date Value Ref Range Status 09/26/2023 0.4 % Final Abs Baso Date Value Ref Range Status 09/26/2023 0.05 <0.11 k/uL Final PATH: BM Biopsy 08/2018: A. Bone marrow, right posterior iliac crest, biopsy, aspirate smear, and peripheral blood smear: - Normocellular bone marrow (30%) with trilineage hematopoiesis and 3% plasma cells, see comment. - Decreased iron stores without ring sideroblasts. B. Bone marrow, right posterior iliac crest, clot section: - Normocellular bone marrow (30%) with trilineage hematopoiesis and 3% plasma cells, see comment. 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 Plasma cells are not increased (3%), confirmed by CD138 stain. In situ hybridization for kappa and lambda light chains appear to be polytypic. The special stain for Congo red performed on the core biopsy and clot section is negative for amyloid deposition. The flow cytometric analysis of the marrow aspirate reveals polytypic plasma cells and no immunophenotypic evidence of an abnormal population of T lymphocytes, B lymphocytes or blasts. Overall, there is no morphologic or immunophenotypic evidence of plasma cell neoplasm. Correlation with clinical findings and cytogenetic/FISH studies is recommended. Probe/Control Range Patient/Interpretation 1p32.3(CDKN2C)-1signal/0-3.6% 0%/negative 1q21.3(CKS1B)-3signals/0-3.7% 0%/negative 3q27(BCL6)-3signals/0-2.2% 0%/negative 9e10-89,5p15.2(ABP0U-E0J97:F6R888)-3signals/0-0.6% 0%/negative 8q24(MYC)-bap/0-3.0% 0%/negative 11q22.3(ODILON)-3signals/0-0.6% 0%/negative 12p13(ETV6)-1signal/0-4.1% 0.5%/negative 13q14(RB1)-1signal/0-4.2% 0.5%/negative 13q34(LAMP1)-1signal/0-3.0% 0%/negative 17p13.1(TP53)-1signal/0-3.2% 0.5%/negative 21q22(RUNX1)-3signals/0-0.6% 0%/negative 14q32.3-11q13(IGH-CCND1)/0-0.6% 0%/negative IMAGING: PET 05/2021: 1. Mild metabolic activity associated with the posterior left 9th rib lesion and associated soft tissue mass. 2. No metabolic abnormality identified in the previously described osseous abnormalities in the calvarium, left clavicle and spine. No new site of disease identified. CT of the chest and Abdomen and Pelvis 12/2021: 1. No acute intrathoracic abnormality. 2. Left 9th rib lytic lesion has progressed with new lytic lesion in the manubrium. These are likely due to history of multiple myeloma. 3. Large amount of high attenuation fluid/soft tissue in the urinary bladder, concerning for blood products. Underlying lesion would be difficult to exclude. Clinical correlation is recommended. 4. No acute intra-abdominal abnormality. 5. Age-indeterminate fracture of the right L3 transverse process. 6. Diverticulosis without diverticulitis. ECHO 03/2021: Summary Left ventricle is normal in size. Global left ventricular systolic function appears low normal. Calculated EF via Torres's method is 50 %. Trivial tricuspid regurgitation. Trivial pulmonic insufficiency. PET 05/2022: 1. HEAD and NECK: No evidence of focal uptake to suggest FDG avid neoplastic process.. 2. CHEST: No evidence of focal uptake to suggest FDG avid neoplastic process.. 3. ABDOMEN/PELVIS: No evidence of focal uptake to suggest FDG avid neoplastic process.. 4. EXTREMITIES/SKELETON: Expansile lesion in the left medial clavicle head, minimal change since prior study. PET Scan 05/2023: Head and Neck: * No evidence of FDG avid neoplastic process Chest: * No evidence of FDG avid neoplastic process Abdomen and pelvis: * No evidence of FDG avid neoplastic process Musculoskeletal: * Significant worsening of the now 5.2 cm manubrial expansile lesion compared to 01/11/2022. * Stable additional findings, as described. Assessment and Plan: Missy Salgado is a 83 year old year old male here for follow up. MM- therapy sequences summarized above was started on Darzalex and dex and will continue and followup on myeloma parameters He does not like the dex and will only take it on the days which he gets Darzalex. His myeloma parameters are trending slightly up. His PET 05/2022 was unchanged and no progression. Continue Darzalex. Dex was stopped due to insomnia and follow myeloma parameters, there is an upward trend and PET with sternal progression. Discussed the findings and he has fair amount of comorbidities. Suggested KPD and he has elected to stay locally for therapy. [facility] Started KPD 06/05/2023 and here for cycle 2, day 8 and he has had a good response to therapy as well. Pom Dose decreased to 2 mg, however he tolerated the therapy poorly and has stopped. He does have sig comonrbidities, not a great CAR-T therapy candidate and not interested in bispecifics as well. I dont think that he will tolerate Xpovio well. Suggested velcade qnd Dex and maybe reconsidering adding the CD138 ab back but he did not tolerate the Velcade and Dex and has requested a change in therapy. He has responded well to the previous Pomcombination but he tolerated that poorly as well, even single agent Pom and Dex. Discussed various options and stated that they all have side effects and he is willing to try Ixazomib and Dex. Will start at the lowest possible Ixazomib dose and low dose weekly dex and will alos set up for educationand he understands the risk of GI and skin and edeme with the Ninlaro. 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 Bladder tumor post TURBT and bleeding and subsequent arrest and transfer to [place].Off Plavix and Xarelto and stable. He will re-establish with urology in [place] and has completed XRT 01/2023 and follows urology , Cysto planned 08/2023 Neuropathy- Stable- Saw Neurology and on PT Back pain- Chronic Start Ninazro and arrange for teaching and see back in 3-4 weeks Thank you for the kind referral. If there are any questions and or concerns please do not hesitate to contact me at [phone]. David Molina MD Hematology/Medical Oncology [facility] Jennifer Srivastava spent a total of 30 minutes on the date of the service which included preparing to see the patient, [id number] patient care, completing clinical documentation, obtaining and/or reviewing separately obtained history, performing a medically appropriate examination, counseling and educating the pat ient/family/caregiver and ordering medications, tests, or procedures. CC: MD Allie Mixon MD documented in this [facility]04-[facility]-2024 Evaluation note* Diagnosis Multiple myeloma not having achieved remission (HCC) Multiple myeloma, without mention of having achieved remission Stage 3a chronic kidney disease (HCC) Leg swelling Swelling of limb Neuropathy Mononeuritis of unspecified site documented in this encounter [facility]04-01-2024 Miscellaneous Notes* Telephone Encounter - Kanika Aquino RN - 09/30/2023 10:21 AM EDT Message left with this information on pt's voicemail Kanika Aquino RN * Telephone Encounter - Kanika Aquino RN - 09/30/2023 10:21 AM EDT ----- Message from Thi Valera PA-C sent at 09/30/2023 8:24 AM EDT ----- Please call and advise that his urine did lynne ecoli and the antibiotic he is on should cover it. documented in this encounterSouthwest [facility] Center03-28-2024 NoteHNO ID: [id number] Author: GIGI RIOS MA Service: ? Author Type: Digital Marketing Assistant Type: Progress Notes Filed: 09/26/2023 12:27 Note Text: Back office UA test performed. Culture obtained. Results entered in Epic and doctor notified.[facility]03-28-2024 NoteThe [facility]03-21-2024 History of Present illness Narrative* Thi Valera PA-C - 09/19/2023 11:00 AM EDT PATIENT NAME: Missy Vaughan Naomi [facility] NO.: [id number] ATTENDING PHYSICIAN: David Molina MD DATE OF SERVICE: September 19, 2023 (Elements copied from my note dated September 06, 2023, have been reviewed and updated where appropriate, and all reflect current assessment and medical decision making during today's encounter, August) CC: Follow up Diagnosis: 1. Multiple Myeloma- FISH- Normal Treatment History: 1. 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 T9 surgical resection 2010 3. 6 cycles of CyBord 2010 4. L Clavicular mass 01/2017 5. 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 L Orbital mass radiation 09/2018 8. VRD 6 cycles- Completed 05/2019- Brian Maintenance- 05/2021- Progression 9. Rib Xray 05/[address] Gunn at [facility] as well.-- Started Darzalex and Dex 07/26/2021. Dex stopped 09/04/2022- Insomnia- Dariela last dose 04/16/2023 11. Established care with ma 09/27/2021 12. Progressive disease 05/2023 13. KPD Started 06/05/2023- Pom dose reduced to 2 mg - Patient did not tolerate well at all and requested therapy to stop due to intolerance. Kyprolis stopped 07/17/2023 and Pom dose reduction also nottolerated and stopped early 08/2023 14. Radiation Sternum 06/10/2023- 800 cGy single fraction 15. Started Velcade/Dex 08/21/2023. Dose reduce Dex weekly to 4mg 08/28/2023 d/t insomnia HPI: Missy returns for follow up. Since his last visit, he did have a fall while using his walker at home. His left shoulder is hurting but he is able to move it. He describes it as getting better. He does get diarrhea for once day after treatment. He also has some fatigue. Still with tinging in his left pinky. No other neuropathy symptoms. Leg swelling better with lasix. No fevers, chills, or vomiting. He gets slight nausea with treatment but is eating well PAST MEDICAL HISTORY Diagnosis Date CAD (coronary artery disease) Hyperlipidemia Hypertension Multiple myeloma (HCC) Myocardial infarction (HCC) Port-A-Cath in place Presence of Watchman left atrial appendage closure device Social History Tobacco Use Smoking status: Former Packs/day: 1 Types: Cigarettes Quit date: 07/17/1981 Years since quittin.2 Passive exposure: Never Smokeless tobacco: Never Vaping Use Vaping Use: Never used Substance Use Topics Alcohol use: Yes Alcohol/week: 7.0 standard drinks of alcohol Types: 7 Shots of liquor per week Drug use: Never No family history on file. Past medical, social and family history reviewed without any changes. REVIEW OF SYSTEMS GENERAL: No weight loss, malaise or fevers. No night sweats. +insomnia HEENT: Negative for headaches, No changes in hearing or vision, no nose bleeds or other nasal problems. RESPIRATORY: Negative for cough, wheezing and shortness of breath CARDIOVASCULAR: Negative for chest pain, and palpitations +bilateral leg swelling GI: Negative for abdominal discomfort, blood in stools or black stools and change in bowel habits : Negative for dysuria, frequency and incontinence MUSCULOSKELETAL: Negative for joint pain or swelling, back pain, and muscle pain. SKIN: Negative for lesions, rash, and itching. HEMATOLOGY/LYMPHOLOGY Negative for prolonged bleeding, bruising easily, and swollen nodes. NEURO: +chronic neuropathy PHYSICAL EXAMINATION: BP 120/69 Pulse 75 Temp (Src) 97.2 (Temporal) Resp 18 Ht 5' 11.417 (1.81m) Wt 228 lb 9.9oz (103.7kg) SpO2 98% BMI 31.51 kg/(m^2). ECOG PERFORMANCE STATUS: 1- Restricted in physically strenuous activity. Carries out light duty. General: Alert and oriented, no distress, pleasant and cooperative. In a wheelchair Heart: Regular, normal S1 and S2, no murmurs, rubs, or gallops Lungs: Clear to auscultation bilaterally Abdomen: Benign Extremities: Feet/ankles with mild edema LABS: Glucose (mg/dL) Date Value 09/19/2023 104 08/01/2022 85 Potassium (mmol/L) Date Value 09/19/2023 4.3 08/01/2022 4.5 Sodium (mmol/L) Date Value 09/19/2023 138 08/01/2022 138 Chloride (mmol/L) Date Value 09/19/2023 104 08/01/2022 104 CO2 (mmol/L) Date Value 09/19/2023 28 08/01/2022 25 Creatinine (mg/dL) Date Value 09/19/2023 1.32 CREATININE (mg/dL) Date Value 08/01/2022 1.4 BUN (mg/dL) Date Value 09/19/2023 30 Anion Gap (mmol/L) Date Value 09/19/2023 6 08/01/2022 13.5 Calcium (mg/dL) Date Value 08/01/2022 9.2 Calcium, Total (mg/dL) Date Value 09/19/2023 9.0 Protein, Total (g/dL) Date Value 09/19/2023 6.0 08/01/2022 6.6 Albumin (g/dL) Date Value 09/19/2023 3.7 08/01/2022 3.9 Bilirubin, Total (mg/dL) Date Value 09/19/2023 0.2 08/01/2022 0.2 Alkaline Phosphatase (U/L) Date Value 09/19/2023 98 08/01/2022 82.2 AST (U/L) Date Value 09/19/2023 18 08/01/2022 22 ALT (U/L) Date Value 09/19/2023 12 08/01/2022 14 WBC Date Value Ref Range Status 09/19/2023 8.71 3.70 - 11.00 k/uL Final RBC Date Value Ref Range Status 09/19/2023 3.07 (L) 4.20 - 6.00 m/uL Final Hemoglobin Date Value Ref Range Status 09/19/2023 11.7 (L) 13.0 - 17.0 g/dL Final Hematocrit Date Value Ref Range Status 09/19/2023 34.8 (L) 39.0 - 51.0 % Final MCV Date Value Ref Range Status 09/19/2023 113.4 (H) 80.0 - 100.0 fL Final MCH Date Value Ref Range Status 09/19/2023 38.1 (H) 26.0 - 34.0 pg Final MCHC Date Value Ref Range Status 09/19/2023 33.6 30.5 - 36.0 g/dL Final RDW-CV Date Value Ref Range Status 09/19/2023 12.5 11.5 - 15.0 % Final Platelet Count Date Value Ref Range Status 09/19/2023 242 150 - 400 k/uL Final MPV Date Value Ref Range Status 09/19/2023 9.8 9.0 - 12.7 fL Final Abs Neut Date Value Ref Range Status 09/19/2023 5.69 1.45 - 7.50 k/uL Final Lymphocytes % Date Value Ref Range Status 09/19/2023 15.0 % Final Abs Lymph Date Value Ref Range Status 09/19/2023 1.31 1.00 - 4.00 k/uL Final Monocytes % Date Value Ref Range Status 09/19/2023 15.0 % Final Abs Tate Date Value Ref Range Status 09/19/2023 1.31 (H) <0.87 k/uL Final Eosin% Date Value Ref Range Status 08/21/2023 4.0 % Final Abs Eosin Date Value Ref Range Status 09/19/2023 0.29 <0.46 k/uL Final Basophils % Date Value Ref Range Status 09/19/2023 0.8 % Final Abs Baso Date Value Ref Range Status 09/19/2023 0.07 <0.11 k/uL Final PATH: BM Biopsy 08/2018: A. Bone marrow, right posterior iliac crest, biopsy, aspirate smear, and peripheral blood smear: - Normocellular bone marrow (30%) with trilineage hematopoiesis and 3% plasma cells, see comment. - Decreased iron stores without ring sideroblasts. B. Bone marrow, right posterior iliac crest, clot section: - Normocellular bone marrow (30%) with trilineage hematopoiesis and 3% plasma cells, see comment. 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 Plasma cells are not increased (3%), confirmed by CD138 stain. In situ hybridization for kappa and lambda light chains appear to be polytypic. The special stain for Congo red performed on the core biopsy and clot section is negative for amyloid deposition. The flow cytometric analysis of the marrow aspirate reveals polytypic plasma cells and no immunophenotypic evidence of an abnormal population of T lymphocytes, B lymphocytes or blasts. Overall, there is no morphologic or immunophenotypic evidence of plasma cell neoplasm. Correlation with clinical findings and cytogenetic/FISH studies is recommended. Probe/Control Range Patient/Interpretation 1p32.3(CDKN2C)-1signal/0-3.6% 0%/negative 1q21.3(CKS1B)-3signals/0-3.7% 0%/negative 3q27(BCL6)-3signals/0-2.2% 0%/negative 6m15-10,5p15.2([id number]:[id number])-3signals/0-0.6% 0%/negative 8q24(MYC)-bap/0-3.0% 0%/negative 11q22.3(ODILON)-3signals/0-0.6% 0%/negative 12p13(ETV6)-1signal/0-4.1% 0.5%/negative 13q14(RB1)-1signal/0-4.2% 0.5%/negative 13q34(LAMP1)-1signal/0-3.0% 0%/negative 17p13.1(TP53)-1signal/0-3.2% 0.5%/negative 21q22(RUNX1)-3signals/0-0.6% 0%/negative 14q32.3-11q13(IGH-CCND1)/0-0.6% 0%/negative IMAGING: PET 05/2021: 1. Mild metabolic activity associated with the posterior left 9th rib lesion and associated soft tissue mass. 2. No metabolic abnormality identified in the previously described osseous abnormalities in the calvarium, left clavicle and spine. No new site of disease identified. CT of the chest and Abdomen and Pelvis 12/2021: 1. No acute intrathoracic abnormality. 2. Left 9th rib lytic lesion has progressed with new lytic lesion in the manubrium. These are likely due to history of multiple myeloma. 3. Large amount of high attenuation fluid/soft tissue in the urinary bladder, concerning for blood products. Underlying lesion would be difficult to exclude. Clinical correlation is recommended. 4. No acute intra-abdominal abnormality. 5. Age-indeterminate fracture of the right L3 transverse process. 6. Diverticulosis without diverticulitis. ECHO 03/2021: Summary Left ventricle is normal in size. Global left ventricular systolic function appears low normal. Calculated EF via Torres's method is 50 %. Trivial tricuspid regurgitation. Trivial pulmonic insufficiency. PET 05/2022: 1. HEAD and NECK: No evidence of focal uptake to suggest FDG avid neoplastic process.. 2. CHEST: No evidence of focal uptake to suggest FDG avid neoplastic process.. 3. ABDOMEN/PELVIS: No evidence of focal uptake to suggest FDG avid neoplastic process.. 4. EXTREMITIES/SKELETON: Expansile lesion in the left medial clavicle head, minimal change since prior study. PET Scan 05/2023: Head and Neck: * No evidence of FDG avid neoplastic process Chest: * No evidence of FDG avid neoplastic process Abdomen and pelvis: * No evidence of FDG avid neoplastic process Musculoskeletal: * Significant worsening of the now 5.2 cm manubrial expansile lesion compared to 01/11/2022. * Stable additional findings, as described. Assessment and Plan: Missy Salgado is a 83 year old year old male here for follow up. MM- therapy sequences summarized above was started on Darzalex and dex and will continue and followup on myeloma parameters He does not like the dex and will only take it on the days which he gets Darzalex. His myeloma parameters are trending slightly up. His PET 05/2022 was unchanged and no progression. Continue Darzalex. Dex was stopped due to insomnia and follow myeloma parameters, there is an upward trend and PET with sternal progression. Discussed the findings and he has fair amount of comorbidities. Suggested KPD and he has elected to stay locally for therapy. [facility] Started KPD 06/05/2023 and here for cycle 2, day 8 and he has had a good response to therapy as well. Pom Dose decreased to 2 mg, however he tolerated the therapy poorly and has stopped. He does have sig comonrbidities, not a great CAR-T therapy candidate and not interested in bispecifics as well. I dont think that he will tolerate Xpovio well. Suggested velcade and Dex and maybe reconsidering adding the CD138 ab as well, pending his tolerance. His recent myeloma labs showed response. Will continue with velcade/dex for now. Decreased dex to4 mg weekly as of 08/28/2023 due to insomnia. Continue with treatment with cycle 2 today. Return in 1 week for day 8. Monitor myeloma labs. Consider adding CD 138 antibody if concern for lack of response. 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 Bladder tumor post TURBT and bleeding and subsequent arrest and transfer to [place].Off Plavix and Xarelto and stable. He will re-establish with urology in [place] and has completed XRT 01/2023 and follows urology , Cysto planned 08/2023 Neuropathy- Stable- Saw Neurology and on PT Back pain- Chronic Leg swelling--continue lasix 40 mg with potassium, monitor kidney function RV in 1 week for labs and day 8 of cycle 2. Thi Valera PA-C CC: MD Allie Mixon MD I spent a total of 30 minutes on the date of the service which included preparing to see the patient, [id number] patient care, completing clinical documentation, obtaining and/or reviewing separately obtained history, performing a medically appropriate examination, counseling and educating the pat ient/family/caregiver, ordering medications, tests, or procedures, independently interpreting results (not separately reported), and communicating results to the patient/family/caregiver. [facility] Note[facility]* Diagnosis Multiple myeloma not having achieved remission (HCC)- Primary Multiple myeloma, without mention of having achieved remission Stage 3a chronic kidney disease (HCC) Leg swelling Swelling of limb documented [facility] note* Diagnosis Multiple myeloma not having achieved remission (HCC) Multiple myeloma, without mention of having achieved remission Stage 3a chronic kidney disease (HCC) Leg swelling Swelling of limb Neuropathy Mononeuritis of unspecified site documented [facility] History of Present illness Narrative* Thi Valera PA-C - 09/06/2023 11:00 AM EST PATIENT NAME: Missy Salgado CLINIC NO.: [id number] ATTENDING PHYSICIAN: David Molina MD DATE OF SERVICE: August 28, 2023 (Elements copied from my note dated August 28, 2023, have been reviewed and updated where appropriate, and all reflect current assessment and medical decision making during today's encounter, 2023) CC: Follow up Diagnosis: 1. Multiple Myeloma- FISH- Normal Treatment History: 1. 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 T9 surgical resection 2010 3. 6 cycles of CyBord 2010 4. L Clavicular mass 01/2017 5. 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 L Orbital mass radiation 09/2018 8. VRD 6 cycles- Completed 05/2019- Brian Maintenance- 05/2021- Progression 9. Rib Xray 05/[address] Gunn at [facility] as well.-- Started Darzalex and Dex 07/26/2021. Dex stopped 09/04/2022- Insomnia- Dariela last dose 04/16/2023 11. Established care with ma 09/27/2021 12. Progressive disease 05/2023 13. KPD Started 06/05/2023- Pom dose reduced to 2 mg - Patient did not tolerate well at all and requested therapy to stop due to intolerance. Kyprolis stopped 07/17/2023 and Pom dose reduction also nottolerated and stopped early 08/2023 14. Radiation Sternum 06/10/2023- 800 cGy single fraction 15. Started Velcade/Dex 08/21/2023. Dose reduce Dex weekly to 4mg 08/28/2023 d/t insomnia HPI: Missy returns for follow up. Had a little bit of upset stomach for 2-3 days. He had some diarrhea. No vomiting. Constipated one day, took stool softeners, which gave him diarrhea. He was able to get some exercises in over the last couple of days. No fevers. Had slight improvement in his insomnia after decreasing dex to 4 mg. Leg swelling better with lasix. Neuropathy in left pinky finger sometimes. Some tingling in toes. PAST MEDICAL HISTORY Diagnosis Date CAD (coronary artery disease) Hyperlipidemia Hypertension Multiple myeloma (HCC) Myocardial infarction (HCC) Port-A-Cath in place Presence of Watchman left atrial appendage closure device Social History Tobacco Use Smoking status: Former Packs/day: 1 Types: Cigarettes Quit date: 07/17/1981 Years since quittin.1 Passive exposure: Never Smokeless tobacco: Never Vaping Use Vaping Use: Never used Substance Use Topics Alcohol use: Yes Alcohol/week: 7.0 standard drinks of alcohol Types: 7 Shots of liquor per week Drug use: Never No family history on file. Past medical, social and family history reviewed without any changes. REVIEW OF SYSTEMS GENERAL: No weight loss, malaise or fevers. No night sweats. +insomnia HEENT: Negative for headaches, No changes in hearing or vision, no nose bleeds or other nasal problems. RESPIRATORY: Negative for cough, wheezing and shortness of breath CARDIOVASCULAR: Negative for chest pain, and palpitations +bilateral leg swelling GI: Negative for abdominal discomfort, blood in stools or black stools and change in bowel habits : Negative for dysuria, frequency and incontinence MUSCULOSKELETAL: Negative for joint pain or swelling, back pain, and muscle pain. SKIN: Negative for lesions, rash, and itching. HEMATOLOGY/LYMPHOLOGY Negative for prolonged bleeding, bruising easily, and swollen nodes. NEURO: +chronic neuropathy PHYSICAL EXAMINATION: BP 100/68 Pulse 75 Temp (Src) 97.6 (Temporal) Resp 16 Ht 5' 11.417 (1.81m) Wt 229 lb 0.9oz (103.9kg) SpO2 96% BMI 31.57 kg/(m^2). :ECOG PERFORMANCE STATUS: 1- Restricted in physically strenuous activity. Carries out light duty. General: Alert and oriented, no distress, pleasant and cooperative. In a wheelchair Heart: Regular, normal S1 and S2, no murmurs, rubs, or gallops Lungs: Clear to auscultation bilaterally Abdomen: Benign Extremities: Feet/ankles with mild edema LABS: Glucose (mg/dL) Date Value 09/06/2023 120 08/01/2022 85 Potassium (mmol/L) Date Value 09/06/2023 4.4 08/01/2022 4.5 Sodium (mmol/L) Date Value 09/06/2023 138 08/01/2022 138 Chloride (mmol/L) Date Value 09/06/2023 104 08/01/2022 104 CO2 (mmol/L) Date Value 09/06/2023 26 08/01/2022 25 Creatinine (mg/dL) Date Value 09/06/2023 1.34 CREATININE (mg/dL) Date Value 08/01/2022 1.4 BUN (mg/dL) Date Value 09/06/2023 22 Anion Gap (mmol/L) Date Value 09/06/2023 8 08/01/2022 13.5 Calcium (mg/dL) Date Value 08/01/2022 9.2 Calcium, Total (mg/dL) Date Value 09/06/2023 8.7 Protein, Total (g/dL) Date Value 09/06/2023 5.6 08/01/2022 6.6 Albumin (g/dL) Date Value 09/06/2023 3.5 08/01/2022 3.9 Bilirubin, Total (mg/dL) Date Value 09/06/2023 0.3 08/01/2022 0.2 Alkaline Phosphatase (U/L) Date Value 09/06/2023 95 08/01/2022 82.2 AST (U/L) Date Value 09/06/2023 20 08/01/2022 22 ALT (U/L) Date Value 09/06/2023 17 08/01/2022 14 WBC Date Value Ref Range Status 09/06/2023 10.55 3.70 - 11.00 k/uL Final RBC Date Value Ref Range Status 09/06/2023 2.93 (L) 4.20 - 6.00 m/uL Final Hemoglobin Date Value Ref Range Status 09/06/2023 11.0 (L) 13.0 - 17.0 g/dL Final Hematocrit Date Value Ref Range Status 09/06/2023 33.8 (L) 39.0 - 51.0 % Final MCV Date Value Ref Range Status 09/06/2023 115.4 (H) 80.0 - 100.0 fL Final MCH Date Value Ref Range Status 09/06/2023 37.5 (H) 26.0 - 34.0 pg Final MCHC Date Value Ref Range Status 09/06/2023 32.5 30.5 - 36.0 g/dL Final RDW-CV Date Value Ref Range Status 09/06/2023 13.6 11.5 - 15.0 % Final Platelet Count Date Value Ref Range Status 09/06/2023 219 150 - 400 k/uL Final MPV Date Value Ref Range Status 09/06/2023 10.2 9.0 - 12.7 fL Final Abs Neut Date Value Ref Range Status 09/06/2023 7.01 1.45 - 7.50 k/uL Final Lymphocytes % Date Value Ref Range Status 09/06/2023 14.3 % Final Abs Lymph Date Value Ref Range Status 09/06/2023 1.51 1.00 - 4.00 k/uL Final Monocytes % Date Value Ref Range Status 09/06/2023 14.4 % Final Abs Tate Date Value Ref Range Status 09/06/2023 1.52 (H) <0.87 k/uL Final Eosin% Date Value Ref Range Status 08/21/2023 4.0 % Final Abs Eosin Date Value Ref Range Status 09/06/2023 0.38 <0.46 k/uL Final Basophils % Date Value Ref Range Status 09/06/2023 0.7 % Final Abs Baso Date Value Ref Range Status 09/06/2023 0.07 <0.11 k/uL Final PATH: BM Biopsy 08/2018: A. Bone marrow, right posterior iliac crest, biopsy, aspirate smear, and peripheral blood smear: - Normocellular bone marrow (30%) with trilineage hematopoiesis and 3% plasma cells, see comment. - Decreased iron stores without ring sideroblasts. B. Bone marrow, right posterior iliac crest, clot section: - Normocellular bone marrow (30%) with trilineage hematopoiesis and 3% plasma cells, see comment. 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 Plasma cells are not increased (3%), confirmed by CD138 stain. In situ hybridization for kappa and lambda light chains appear to be polytypic. The special stain for Congo red performed on the core biopsy and clot section is negative for amyloid deposition. The flow cytometric analysis of the marrow aspirate reveals polytypic plasma cells and no immunophenotypic evidence of an abnormal population of T lymphocytes, B lymphocytes or blasts. Overall, there is no morphologic or immunophenotypic evidence of plasma cell neoplasm. Correlation with clinical findings and cytogenetic/FISH studies is recommended. Probe/Control Range Patient/Interpretation 1p32.3(CDKN2C)-1signal/0-3.6% 0%/negative 1q21.3(CKS1B)-3signals/0-3.7% 0%/negative 3q27(BCL6)-3signals/0-2.2% 0%/negative 1v51-70,5p15.2([id number])-3signals/0-0.6% 0%/negative 8q24(MYC)-bap/0-3.0% 0%/negative 11q22.3(ODILON)-3signals/0-0.6% 0%/negative 12p13(ETV6)-1signal/0-4.1% 0.5%/negative 13q14(RB1)-1signal/0-4.2% 0.5%/negative 13q34(LAMP1)-1signal/0-3.0% 0%/negative 17p13.1(TP53)-1signal/0-3.2% 0.5%/negative 21q22(RUNX1)-3signals/0-0.6% 0%/negative 14q32.3-11q13(IGH-CCND1)/0-0.6% 0%/negative IMAGING: PET 05/2021: 1. Mild metabolic activity associated with the posterior left 9th rib lesion and associated soft tissue mass. 2. No metabolic abnormality identified in the previously described osseous abnormalities in the calvarium, left clavicle and spine. No new site of disease identified. CT of the chest and Abdomen and Pelvis 12/2021: 1. No acute intrathoracic abnormality. 2. Left 9th rib lytic lesion has progressed with new lytic lesion in the manubrium. These are likely due to history of multiple myeloma. 3. Large amount of high attenuation fluid/soft tissue in the urinary bladder, concerning for blood products. Underlying lesion would be difficult to exclude. Clinical correlation is recommended. 4. No acute intra-abdominal abnormality. 5. Age-indeterminate fracture of the right L3 transverse process. 6. Diverticulosis without diverticulitis. ECHO 03/2021: Summary Left ventricle is normal in size. Global left ventricular systolic function appears low normal. Calculated EF via Torres's method is 50 %. Trivial tricuspid regurgitation. Trivial pulmonic insufficiency. PET 05/2022: 1. HEAD and NECK: No evidence of focal uptake to suggest FDG avid neoplastic process.. 2. CHEST: No evidence of focal uptake to suggest FDG avid neoplastic process.. 3. ABDOMEN/PELVIS: No evidence of focal uptake to suggest FDG avid neoplastic process.. 4. EXTREMITIES/SKELETON: Expansile lesion in the left medial clavicle head, minimal change since prior study. PET Scan 05/2023: Head and Neck: * No evidence of FDG avid neoplastic process Chest: * No evidence of FDG avid neoplastic process Abdomen and pelvis: * No evidence of FDG avid neoplastic process Musculoskeletal: * Significant worsening of the now 5.2 cm manubrial expansile lesion compared to 01/11/2022. * Stable additional findings, as described. Assessment and Plan: Missy Salgado is a 83 year old year old male here for follow up. MM- therapy sequences summarized above was started on Darzalex and dex and will continue and followup on myeloma parameters He does not like the dex and will only take it on the days which he gets Darzalex. His myeloma parameters are trending slightly up. His PET 05/2022 was unchanged and no progression. Continue Darzalex. Dex was stopped due to insomnia and follow myeloma parameters, there is an upward trend and PET with sternal progression. Discussed the findings and he has fair amount of comorbidities. Suggested KPD and he has elected to stay locally for therapy. [facility] Started KPD 06/05/2023 and here for cycle 2, day 8 and he has had a good response to therapy as well. Pom Dose decreased to 2 mg, however he tolerated the therapy poorly and has stopped. He does have sig comonrbidities, not a great CAR-T therapy candidate and not interested in bispecifics as well. I dont think that he will tolerate Xpovio well. Suggested velcade and Dex and maybe reconsidering adding the CD138 ab as well, pending his tolerance. His recent myeloma labs showed response. Will continue with velcade/dex for now. Decreased dex to4 mg weekly as of 08/28/2023 due to insomnia. Returns in 2 weeks for the next cycle. Consider adding CD 138 antibody if concern for lack of response. 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 Bladder tumor post TURBT and bleeding and subsequent arrest and transfer to [place].Off Plavix and Xarelto and stable. He will re-establish with urology in [place] and has completed XRT 01/2023 and follows urology , Cysto planned 08/2023 Neuropathy- Stable- Saw Neurology and on PT Back pain- Chronic Leg swelling--continue lasix 40 mg with potassium, monitor kidney function RV in 2 weeks for labs and he next cycle Thi Valera PA-C CC: MD Allie Mixon MD [facility] Note[facility]* Diagnosis Multiple myeloma not having achieved remission (HCC) Multiple myeloma, without mention of having achieved remission Stage 3a chronic kidney disease (HCC) documented [facility]* Diagnosis Multiple myeloma not having achieved remission (HCC)- Primary Multiple myeloma, without mention of having achieved remission Stage 3a chronic kidney disease (HCC) Leg swelling Swelling of limb Neuropathy Mononeuritis of unspecified site [facility] History of Present illness Narrative* Thi Valera PA-C - 08/28/2023 2:00 PM EST PATIENT NAME: Missy Salgado [facility] NO.: [id number] ATTENDING PHYSICIAN: David Molina MD DATE OF SERVICE: August 28, 2023 (Elements copied from Dr. Molina's note dated August 21, 2023, have been reviewed and updated where appropriate, and all reflect current assessment and medical decision making during today's encounter, August 28, 2023) CC: Follow up Diagnosis: 1. Multiple Myeloma- FISH- Normal Treatment History: 1. 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 T9 surgical resection 2010 3. 6 cycles of CyBord 2010 4. L Clavicular mass 01/2017 5. 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 L Orbital mass radiation 09/2018 8. VRD 6 cycles- Completed 05/2019- Brian Maintenance- 05/2021- Progression 9. Rib Xray 05/[address] Gunn at [facility] as well.-- Started Darzalex and Dex 07/26/2021. Dex stopped 09/04/2022- Insomnia- Dariela last dose 04/16/2023 11. Established care with me 09/27/2021 12. Progressive disease 05/2023 13. KPD Started 06/05/2023- Pom dose reduced to 2 mg - Patient did not tolerate well at all and requested therapy to stop due to intolerance. Kyprolis stopped 07/17/2023 and Pom dose reduction also nottolerated and stopped early 08/2023 14. Radiation Sternum 06/10/2023- 800 cGy single fraction 15. Started Velcade/Dex 08/21/2023. Dose reduce Dex weekly to 4mg 08/28/2023 d/t insomnia HPI: Missy returns for follow up. Has noticed a small improvement in his bilateral leg swelling with lasix. He continues to have chronic neuropathy and is doing PT for his balance and strength. He does report insomnia with the Dex he gets with treatment and would like the dose reduced. Denies any fevers, chills, vomiting or pain. PAST MEDICAL HISTORY Diagnosis Date CAD (coronary artery disease) Hyperlipidemia Hypertension Multiple myeloma (HCC) Myocardial infarction (HCC) Port-A-Cath in place Presence of Watchman left atrial appendage closure device Social History Tobacco Use Smoking status: Former Packs/day: 1 Types: Cigarettes Quit date: 07/17/1981 Years since quittin.1 Passive exposure: Never Smokeless tobacco: Never Vaping Use Vaping Use: Never used Substance Use Topics Alcohol use: Yes Alcohol/week: 7.0 standard drinks of alcohol Types: 7 Shots of liquor per week Drug use: Never No family history on file. Past medical, social and family history reviewed without any changes. REVIEW OF SYSTEMS GENERAL: No weight loss, malaise or fevers. No night sweats. +insomnia HEENT: Negative for headaches, No changes in hearing or vision, no nose bleeds or other nasal problems. RESPIRATORY: Negative for cough, wheezing and shortness of breath CARDIOVASCULAR: Negative for chest pain, and palpitations +bilateral leg swelling GI: Negative for abdominal discomfort, blood in stools or black stools and change in bowel habits : Negative for dysuria, frequency and incontinence MUSCULOSKELETAL: Negative for joint pain or swelling, back pain, and muscle pain. SKIN: Negative for lesions, rash, and itching. HEMATOLOGY/LYMPHOLOGY Negative for prolonged bleeding, bruising easily, and swollen nodes. NEURO: +chronic neuropathy PHYSICAL EXAMINATION: BP 111/62 Pulse 74 Temp (Src) 97.6 (Temporal) Resp 16 Ht 5' 11.417 (1.81m) Wt 229 lb (103.9kg) SpO2 96% BMI 31.57 kg/(m^2). :ECOG PERFORMANCE STATUS: 1- Restricted in physically strenuous activity. Carries out light duty. General: Alert and oriented, no distress, pleasant and cooperative. In a wheelchair Heart: Regular, normal S1 and S2, no murmurs, rubs, or gallops Lungs: Clear to auscultation bilaterally Abdomen: Benign Extremities: Feet/ankles with 2+ pitting edema LABS: Glucose (mg/dL) Date Value 08/28/2023 117 08/01/2022 85 Potassium (mmol/L) Date Value 08/28/2023 4.0 08/01/2022 4.5 Sodium (mmol/L) Date Value 08/28/2023 140 08/01/2022 138 Chloride (mmol/L) Date Value 08/28/2023 104 08/01/2022 104 CO2 (mmol/L) Date Value 08/28/2023 27 08/01/2022 25 Creatinine (mg/dL) Date Value 08/28/2023 1.36 CREATININE (mg/dL) Date Value 08/01/2022 1.4 BUN (mg/dL) Date Value 08/28/2023 21 Anion Gap (mmol/L) Date Value 08/28/2023 9 08/01/2022 13.5 Calcium (mg/dL) Date Value 08/01/2022 9.2 Calcium, Total (mg/dL) Date Value 08/28/2023 8.6 Protein, Total (g/dL) Date Value 08/21/2023 5.4 08/21/2023 4.9 08/01/2022 6.6 Albumin (g/dL) Date Value 08/21/2023 3.3 08/01/2022 3.9 Bilirubin, Total (mg/dL) Date Value 08/21/2023 0.5 08/01/2022 0.2 Alkaline Phosphatase (U/L) Date Value 08/21/2023 100 08/01/2022 82.2 AST (U/L) Date Value 08/21/2023 16 08/01/2022 22 ALT (U/L) Date Value 08/21/2023 13 08/01/2022 14 WBC Date Value Ref Range Status 08/28/2023 8.06 3.70 - 11.00 k/uL Final RBC Date Value Ref Range Status 08/28/2023 2.75 (L) 4.20 - 6.00 m/uL Final Hemoglobin Date Value Ref Range Status 08/28/2023 10.6 (L) 13.0 - 17.0 g/dL Final Hematocrit Date Value Ref Range Status 08/28/2023 31.9 (L) 39.0 - 51.0 % Final MCV Date Value Ref Range Status 08/28/2023 116.0 (H) 80.0 - 100.0 fL Final MCH Date Value Ref Range Status 08/28/2023 38.5 (H) 26.0 - 34.0 pg Final MCHC Date Value Ref Range Status 08/28/2023 33.2 30.5 - 36.0 g/dL Final RDW-CV Date Value Ref Range Status 08/28/2023 14.7 11.5 - 15.0 % Final Platelet Count Date Value Ref Range Status 08/28/2023 227 150 - 400 k/uL Final MPV Date Value Ref Range Status 08/28/2023 9.7 9.0 - 12.7 fL Final Abs Neut Date Value Ref Range Status 08/28/2023 4.41 1.45 - 7.50 k/uL Final Lymphocytes % Date Value Ref Range Status 08/28/2023 21.7 % Final Abs Lymph Date Value Ref Range Status 08/28/2023 1.75 1.00 - 4.00 k/uL Final Monocytes % Date Value Ref Range Status 08/28/2023 19.0 % Final Abs Tate Date Value Ref Range Status 08/28/2023 1.53 (H) <0.87 k/uL Final Eosin% Date Value Ref Range Status 08/21/2023 4.0 % Final Abs Eosin Date Value Ref Range Status 08/28/2023 0.25 <0.46 k/uL Final Basophils % Date Value Ref Range Status 08/28/2023 0.6 % Final Abs Baso Date Value Ref Range Status 08/28/2023 0.05 <0.11 k/uL Final PATH: BM Biopsy 08/2018: A. Bone marrow, right posterior iliac crest, biopsy, aspirate smear, and peripheral blood smear: - Normocellular bone marrow (30%) with trilineage hematopoiesis and 3% plasma cells, see comment. - Decreased iron stores without ring sideroblasts. B. Bone marrow, right posterior iliac crest, clot section: - Normocellular bone marrow (30%) with trilineage hematopoiesis and 3% plasma cells, see comment. 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 Plasma cells are not increased (3%), confirmed by CD138 stain. In situ hybridization for kappa and lambda light chains appear to be polytypic. The special stain for Congo red performed on the core biopsy and clot section is negative for amyloid deposition. The flow cytometric analysis of the marrow aspirate reveals polytypic plasma cells and no immunophenotypic evidence of an abnormal population of T lymphocytes, B lymphocytes or blasts. Overall, there is no morphologic or immunophenotypic evidence of plasma cell neoplasm. Correlation with clinical findings and cytogenetic/FISH studies is recommended. Probe/Control Range Patient/Interpretation 1p32.3(CDKN2C)-1signal/0-3.6% 0%/negative 1q21.3(CKS1B)-3signals/0-3.7% 0%/negative 3q27(BCL6)-3signals/0-2.2% 0%/negative 3f68-76,5p15.2([id number]:U1H433)-3signals/0-0.6% 0%/negative 8q24(MYC)-bap/0-3.0% 0%/negative 11q22.3(ODILON)-3signals/0-0.6% 0%/negative 12p13(ETV6)-1signal/0-4.1% 0.5%/negative 13q14(RB1)-1signal/0-4.2% 0.5%/negative 13q34(LAMP1)-1signal/0-3.0% 0%/negative 17p13.1(TP53)-1signal/0-3.2% 0.5%/negative 21q22(RUNX1)-3signals/0-0.6% 0%/negative 14q32.3-11q13(IGH-CCND1)/0-0.6% 0%/negative IMAGING: PET 05/2021: 1. Mild metabolic activity associated with the posterior left 9th rib lesion and associated soft tissue mass. 2. No metabolic abnormality identified in the previously described osseous abnormalities in the calvarium, left clavicle and spine. No new site of disease identified. CT of the chest and Abdomen and Pelvis 12/2021: 1. No acute intrathoracic abnormality. 2. Left 9th rib lytic lesion has progressed with new lytic lesion in the manubrium. These are likely due to history of multiple myeloma. 3. Large amount of high attenuation fluid/soft tissue in the urinary bladder, concerning for blood products. Underlying lesion would be difficult to exclude. Clinical correlation is recommended. 4. No acute intra-abdominal abnormality. 5. Age-indeterminate fracture of the right L3 transverse process. 6. Diverticulosis without diverticulitis. ECHO 03/2021: Summary Left ventricle is normal in size. Global left ventricular systolic function appears low normal. Calculated EF via Torres's method is 50 %. Trivial tricuspid regurgitation. Trivial pulmonic insufficiency. PET 05/2022: 1. HEAD and NECK: No evidence of focal uptake to suggest FDG avid neoplastic process.. 2. CHEST: No evidence of focal uptake to suggest FDG avid neoplastic process.. 3. ABDOMEN/PELVIS: No evidence of focal uptake to suggest FDG avid neoplastic process.. 4. EXTREMITIES/SKELETON: Expansile lesion in the left medial clavicle head, minimal change since prior study. PET Scan 05/2023: Head and Neck: * No evidence of FDG avid neoplastic process Chest: * No evidence of FDG avid neoplastic process Abdomen and pelvis: * No evidence of FDG avid neoplastic process Musculoskeletal: * Significant worsening of the now 5.2 cm manubrial expansile lesion compared to 01/11/2022. * Stable additional findings, as described. Assessment and Plan: Missy M Naomi is a 83 year old year old male here for follow up. MM- therapy sequences summarized above was started on Darzalex and dex and will continue and followup on myeloma parameters He does not like the dex and will only take it on the days which he gets Darzalex. His myeloma parameters are trending slightly up. His PET 05/2022 was unchanged and no progression. Continue Darzalex. Dex was stopped due to insomnia and follow myeloma parameters, there is an upward trend and PET with sternal progression. Discussed the findings and he has fair amount of comorbidities. Suggested KPD and he has elected to stay locally for therapy. [facility] Started KPD 06/05/2023 and here for cycle 2, day 8 and he has had a good response to therapy as well. Pom Dose decreased to 2 mg, however he tolerated the therapy poorly and has stopped. He does have sig comonrbidities, not a great CAR-T therapy candidate and not interested in bispecifics as well. I dont think that he will tolerate Xpovio well. Suggested velcade and Dex and maybe reconsidering adding the CD138 ab as well, pending his tolerance. His recent myeloma labs showed response. Will continue with velcade/dex for now. Decrease dex to 4 mg weekly due to insomnia. Return in 1 week for day 15. Consider adding CD 138 antibody if concernfor lack of response. 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 Bladder tumor post TURBT and bleeding and subsequent arrest and transfer to [place].Off Plavix and Xarelto and stable. He will re-establish with urology in [place] and has completed XRT 01/2023 and follows urology , Cysto planned 08/2023 Neuropathy- Stable- Saw Neurology and on PT Back pain- Chronic Leg swelling--conitnue lasix 40 mg with potassium, monitor kidney function RV in 1 week for labs and week 3 of velcade. Thi Valera PA-C CC: MD Allie Mixon MD documented in this encounterRobert Ville [id number] NoteThe [facility]02-23-2024 Miscellaneous Notes* Telephone Encounter - Kanika Aquino RN - 08/23/2023 12:03 PM EST CYCLE 1/DAY 1 POST TREATMENT CALL Today's date: August 23, 2023 Treatment Regimen: velcade C1D1 Date: 08/21/23 Called patient to follow-up on symptom management. Spoke with patient SYMPTOM ASSESSMENT Neuro: Denies syncope, headaches, dizziness CV/Resp: None GI/: Appetite: no changes in appetite, appetite good, Fluid intake: decent per pt. Encouraged to increase if possible., and denies N/V, D/C. Integument: None Activity: Patient reported no changes in energy level, energy level fair Pain: No=0 (pain 0 on a scale of 0-10). Fever: No Chills: No Any new referrals needed? No Reinforced CURRENT treatment education based on current and anticipated symptoms. Discussed port/line care and patient verbalizes understanding: No Patient instructed to contact office or after hours Hematology/Oncology fellow for: temperature ? 100.4; questions or concerns. Patient verbalized understanding of when to seek medical attention and after hours number protocol. Kanika Aquino RN documented in this encounterSouth[facility]02-23-2024 Miscellaneous Notes* Telephone Encounter - Kanika Aquino RN - 08/23/2023 12:02 PM EST Pt notified. States he's feeling well for the most part and tolerated treatment well. Kanika Aquino RN * Telephone Encounter - Kanika Aquino RN - 08/23/2023 11:52 AM EST ----- Message from David Molina MD sent at 08/23/2023 10:09 AM EST ----- Please let him know that he has had a very good responsew to the therapy and see how he is doing after his velcade as well. documented in this encounterSouthwest General Health Center02-21-2024 Miscellaneous Notes* Telephone Encounter - Kanika Aquino RN - 08/21/2023 10:36 AM EST EMERGENCY ROOM CALL BACK Today's date: August 21, 2023 Patient identified by name and date of . YES Primary Cancer Diagnosis: Multiple Myeloma Reason for Emergency Room Visit: syncope Time of day presented to Emergency Room morning If Sat-Saturday during business hours: Did you contact your 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/Provider? Yes, pt was already en route to ER Patient with any new symptom issues: No Psychosocial Risk Factors: None Pt is being seen today by Dr Molina in the office as a regular visit that was scheduled prior to his trip to the ER. Kanika Aquino RN documented in this encounterSouthwest General Health Center02-21-2024 NoteThe [facility]02-21-2024 History of Present illness Narrative* David Molina MD - 08/21/2023 10:26 AM EST Et PATIENT NAME: Missy Salgado [facility] NO.: [id number] ATTENDING PHYSICIAN: David Molina MD DATE OF SERVICE: August 21, 2023 Some of the elements of this note have been copied from my previous progress note dated 07/10/2023. All the information has been reviewed carefully. Dear Dr. Allie Solares here is an update on a follow up visit on male Missy Salgado at the clinic August 21, 2023 Diagnosis: 1. Multiple Myeloma- FISH- Normal Treatment History: 1. 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 T9 surgical resection 2010 3. 6 cycles of CyBord 2010 4. L Clavicular mass 01/2017 5. 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 L Orbital mass radiation 09/2018 8. VRD 6 cycles- Completed 05/2019- Brian Maintenance- 05/2021- Progression 9. Rib Xray 05/[address] Gunn at [facility] as well.-- Started Darzalex and Dex 07/26/2021. Dex stopped 09/04/2022- Insomnia- Dariela last dose 04/16/2023 11. Established care with me 09/27/2021 12. Progressive disease 05/2023 13. KPD Started 06/05/2023- Pom dose reduced to 2 mg - Patient did not tolerate well at all and requested therapy to stop due to intolerance. Kyprolis stopped 07/17/2023 and Pom dose reduction also nottolerated and stopped early 08/2023 14. Radiation Sternum 06/10/2023- 800 cGy single fraction HPI: Missy Salgado is a 83 year old year old male here for follow up. He had a syncopal episode was in ER and work up including CXR, troponins and EKG were negative and he was asymptomatic prior to the event, He will not go back oin pomalyst at this time and denies anysternal pain as well. PAST MEDICAL HISTORY Diagnosis Date CAD (coronary artery disease) Hyperlipidemia Hypertension Multiple myeloma (HCC) Myocardial infarction (HCC) Port-A-Cath in place Presence of Watchman left atrial appendage closure device Social History Tobacco Use Smoking status: Former Packs/day: 1 Types: Cigarettes Quit date: 07/17/1981 Years since quittin.1 Passive exposure: Never Smokeless tobacco: Never Vaping Use Vaping Use: Never used Substance Use Topics Alcohol use: Yes Alcohol/week: 7.0 standard drinks of alcohol Types: 7 Shots of liquor per week Drug use: Never History reviewed. No pertinent family history. Past medical, social and family history reviewed without any changes. REVIEW OF SYSTEMS GENERAL: No weight loss, malaise or fevers. No night sweats. HEENT: Negative for headaches, No changes in hearing or vision, no nose bleeds or other nasal problems. RESPIRATORY: Negative for cough, wheezing and shortness of breath CARDIOVASCULAR: Negative for chest pain, leg swelling and palpitations GI: Negative for abdominal discomfort, blood in stools or black stools and change in bowel habits : Negative for dysuria, frequency and incontinence MUSCULOSKELETAL: Negative for joint pain or swelling, back pain, and muscle pain. SKIN: Negative for lesions, rash, and itching. HEMATOLOGY/LYMPHOLOGY Negative for prolonged bleeding, bruising easily, and swollen nodes. NEURO: Negative for numbness or tingling of hands/feet. No weakness. PHYSICAL EXAMINATION: BP 104/63 Pulse 85 Temp (Src) 97.3 (Temporal) Resp 18 Ht 5' 11.457 (1.82m) Wt 228 lb 2.8oz (103.5kg) SpO2 98% BMI 31.42 kg/(m^2). Wt 93.1 kg (205 lb 3.2 oz) BMI 27.7 kg/m2 Last 3 Encounter Wt Readings: Date: Wt: 10/31/2021 93.1 kg (205 lb 3.2 oz) 10/17/2021 92.2 kg (203 lb 3.2 oz) 10/03/2021 91.8 kg (202 lb 4.8 oz) General appearance:ECOG PERFORMANCE STATUS: 1- Restricted in physically strenuous activity. Carries out light duty. Patient in NAD. Skin: Skin color, texture, turgor normal. No rashes or lesions. Eyes: Anicteric sclera. Pupils are equally round and reactive to light. Extraocular movements are intact. Lymph Nodes: No cervical, supraclavicular, axillary or inguinal adenopathy. Oropharynx: Lips, mucosa, and tongue normal. Back: No pain to percussion. Negative SLR test Lungs clear to auscultation, No wheezing or rhonchi Heart: RRR without murmur, gallop, or rubs. Abdomen soft, non-tender. No masses, organomegaly Extremities: No deformities. No edema Neuro: Gait and speech normal. Reflexes normal and symmetric. Muscular strength intact. Sensation grossly intact. Rectal: Deferred : Deferred LABS: Glucose (mg/dL) Date Value 07/31/2023 136 08/01/2022 85 Potassium (mmol/L) Date Value 07/31/2023 4.2 08/01/2022 4.5 Sodium (mmol/L) Date Value 07/31/2023 136 08/01/2022 138 Chloride (mmol/L) Date Value 07/31/2023 103 08/01/2022 104 CO2 (mmol/L) Date Value 07/31/2023 25 08/01/2022 25 Creatinine (mg/dL) Date Value 07/31/2023 1.30 CREATININE (mg/dL) Date Value 08/01/2022 1.4 BUN (mg/dL) Date Value 07/31/2023 25 Anion Gap (mmol/L) Date Value 07/31/2023 8 08/01/2022 13.5 Calcium (mg/dL) Date Value 08/01/2022 9.2 Calcium, Total (mg/dL) Date Value 07/31/2023 9.0 Protein, Total (g/dL) Date Value 07/31/2023 5.2 08/01/2022 6.6 Albumin (g/dL) Date Value 07/31/2023 3.2 08/01/2022 3.9 Bilirubin, Total (mg/dL) Date Value 07/31/2023 0.4 08/01/2022 0.2 Alkaline Phosphatase (U/L) Date Value 07/31/2023 106 08/01/2022 82.2 AST (U/L) Date Value 07/31/2023 19 08/01/2022 22 ALT (U/L) Date Value 07/31/2023 23 08/01/2022 14 WBC Date Value Ref Range Status 08/21/2023 9.20 3.70 - 11.00 k/uL Preliminary RBC Date Value Ref Range Status 08/21/2023 2.74 (L) 4.20 - 6.00 m/uL Preliminary Hemoglobin Date Value Ref Range Status 08/21/2023 10.3 (L) 13.0 - 17.0 g/dL Preliminary Hematocrit Date Value Ref Range Status 08/21/2023 31.7 (L) 39.0 - 51.0 % Preliminary MCV Date Value Ref Range Status 08/21/2023 115.7 (H) 80.0 - 100.0 fL Preliminary MCH Date Value Ref Range Status 08/21/2023 37.6 (H) 26.0 - 34.0 pg Preliminary MCHC Date Value Ref Range Status 08/21/2023 32.5 30.5 - 36.0 g/dL Preliminary RDW-CV Date Value Ref Range Status 08/21/2023 15.9 (H) 11.5 - 15.0 % Preliminary Platelet Count Date Value Ref Range Status 08/21/2023 233 150 - 400 k/uL Preliminary MPV Date Value Ref Range Status 08/21/2023 9.4 9.0 - 12.7 fL Preliminary Abs Neut (Segs + Bands) Date Value Ref Range Status 07/31/2023 8.04 (H) 1.45 - 7.50 k/uL Final Lymphocytes % Date Value Ref Range Status 07/31/2023 21.7 % Final Abs Lymph (Normal + Reactive) Date Value Ref Range Status 07/31/2023 2.78 1.00 - 4.00 k/uL Final Monocytes % Date Value Ref Range Status 07/31/2023 9.6 % Final Abs Tate Date Value Ref Range Status 07/31/2023 1.23 (H) <0.87 k/uL Final Eosin% Date Value Ref Range Status 07/31/2023 4.3 % Final Abs Eosin Date Value Ref Range Status 07/31/2023 0.55 (H) <0.46 k/uL Final Basophils % Date Value Ref Range Status 07/31/2023 1.7 % Final Abs Baso Date Value Ref Range Status 07/31/2023 0.22 (H) <0.11 k/uL Final PATH: BM Biopsy 08/2018: A. Bone marrow, right posterior iliac crest, biopsy, aspirate smear, and peripheral blood smear: - Normocellular bone marrow (30%) with trilineage hematopoiesis and 3% plasma cells, see comment. - Decreased iron stores without ring sideroblasts. B. Bone marrow, right posterior iliac crest, clot section: - Normocellular bone marrow (30%) with trilineage hematopoiesis and 3% plasma cells, see comment. 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 Plasma cells are not increased (3%), confirmed by CD138 stain. In situ hybridization for kappa and lambda light chains appear to be polytypic. The special stain for Congo red performed on the core biopsy and clot section is negative for amyloid deposition. The flow cytometric analysis of the marrow aspirate reveals polytypic plasma cells and no immunophenotypic evidence of an abnormal population of T lymphocytes, B lymphocytes or blasts. Overall, there is no morphologic or immunophenotypic evidence of plasma cell neoplasm. Correlation with clinical findings and cytogenetic/FISH studies is recommended. Probe/Control Range Patient/Interpretation 1p32.3(CDKN2C)-1signal/0-3.6% 0%/negative 1q21.3(CKS1B)-3signals/0-3.7% 0%/negative 3q27(BCL6)-3signals/0-2.2% 0%/negative 2t00-12,5p15.2(MFH9E-K5R02:C2K778)-3signals/0-0.6% 0%/negative 8q24(MYC)-bap/0-3.0% 0%/negative 11q22.3(ODILON)-3signals/0-0.6% 0%/negative 12p13(ETV6)-1signal/0-4.1% 0.5%/negative 13q14(RB1)-1signal/0-4.2% 0.5%/negative 13q34(LAMP1)-1signal/0-3.0% 0%/negative 17p13.1(TP53)-1signal/0-3.2% 0.5%/negative 21q22(RUNX1)-3signals/0-0.6% 0%/negative 14q32.3-11q13(IGH-CCND1)/0-0.6% 0%/negative IMAGING: PET 05/2021: 1. Mild metabolic activity associated with the posterior left 9th rib lesion and associated soft tissue mass. 2. No metabolic abnormality identified in the previously described osseous abnormalities in the calvarium, left clavicle and spine. No new site of disease identified. CT of the chest and Abdomen and Pelvis 12/2021: 1. No acute intrathoracic abnormality. 2. Left 9th rib lytic lesion has progressed with new lytic lesion in the manubrium. These are likely due to history of multiple myeloma. 3. Large amount of high attenuation fluid/soft tissue in the urinary bladder, concerning for blood products. Underlying lesion would be difficult to exclude. Clinical correlation is recommended. 4. No acute intra-abdominal abnormality. 5. Age-indeterminate fracture of the right L3 transverse process. 6. Diverticulosis without diverticulitis. ECHO 03/2021: Summary Left ventricle is normal in size. Global left ventricular systolic function appears low normal. Calculated EF via Torres's method is 50 %. Trivial tricuspid regurgitation. Trivial pulmonic insufficiency. PET 05/2022: 1. HEAD and NECK: No evidence of focal uptake to suggest FDG avid neoplastic process.. 2. CHEST: No evidence of focal uptake to suggest FDG avid neoplastic process.. 3. ABDOMEN/PELVIS: No evidence of focal uptake to suggest FDG avid neoplastic process.. 4. EXTREMITIES/SKELETON: Expansile lesion in the left medial clavicle head, minimal change since prior study. PET Scan 05/2023: Head and Neck: * No evidence of FDG avid neoplastic process Chest: * No evidence of FDG avid neoplastic process Abdomen and pelvis: * No evidence of FDG avid neoplastic process Musculoskeletal: * Significant worsening of the now 5.2 cm manubrial expansile lesion compared to 01/11/2022. * Stable additional findings, as described. Assessment and Plan: Missy Salgado is a 83 year old year old male here for follow up. MM- therapy sequences summarized above was started on Darzalex and dex and will continue and followup on myeloma parameters He does not like the dex and will only take it on the days which he gets Darzalex. His myeloma parameters are trending slightly up. His PET 05/2022 was unchanged and no progression. Continue Darzalex. Dex was stopped due to insomnia and follow myeloma parameters, there is an upward trend and PET with sternal progression. Discussed the findings and he has fair amount of comorbidities. Suggested KPD and he has elected to stay locally for therapy. [facility] Started KPD 06/05/2023 and here for cycle 2, day 8 and he has had a good response to therapy as well. Pom Dose decreased to 2 mg, however he tolerated the therapy poorly and has stopped. He does have sig comonrbidities, not a great CAR-T therapy candidate and not interested in bispecifics as well. I dont think that he will tolerate Xpovio well. Suggested velcade qnd Dex and maybe reconsidering adding the CD138 ab as well, pending his tolerance. 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 Bladder tumor post TURBT and bleeding and subsequent arrest and transfer to [place].Off Plavix and Xarelto and stable. He will re-establish with urology in [place] and has completed XRT 01/2023 and follows urology , Cysto planned 08/2023 Neuropathy- Stable- Saw Neurology and on PT Back pain- Chronic Syncope- Suggested cards follow up See back for week 2 of velcade next week and follow myeloma parameters from today Thank you for the kind referral. If there are any questions and or concerns please do not hesitate to contact me at [phone]. David Molina MD Hematology/Medical Oncology [facility] I spent a total of 30 minutes on the date of the service which included preparing to see the patient, [id number] patient care, completing clinical documentation, obtaining and/or reviewing separately obtained history, performing a medically appropriate examination, counseling and educating the pat ient/family/caregiver and ordering medications, tests, or procedures. CC: MD Allie Mixon MD documented in this encounterSouthwest [facility] Center02-20-2024 Miscellaneous Notes* Telephone Encounter - Dina Feliz - 08/20/2023 1:02 PM EST I spoke with Wade Honeycutt's . They were currently on their way home from the hospital. Wade is re-scheduled to see Dr. Molina tomorrow, Saturday, 08/21 at 10:15am with labs before. They were both in agreement. Maisha - REECE. ThanksDina * Telephone Encounter - Kanika Aquino RN - 08/20/2023 9:46 AM EST Call received from pt's stating pt passed out this morning so he's currently being worked up in [facility] ER. She needed to cancel pt's appointments for today. Maisha: can you get records please PSS: can you call pt's later today and reschedule his appointment per her request. Thanks Kanika Aquino RN documented in this encounterSouthwest General Health Center02-08-2024 Miscellaneous Notes* Telephone Encounter - David Molina MD - 08/08/2023 10:36 AM EST I will talk to him * Telephone Encounter - Kanika Aquino RN - 08/08/2023 9:32 AM EST Pt's notified. states pt is already feeling much better today. He did not take pomalyst yesterday or today. Pt has follow up appointment on 08/20. Kanika Aquino RN * Telephone Encounter - David Molina MD - 08/07/2023 11:08 PM EST Sounds good * Telephone Encounter - Thi Valera PA-C - 08/07/2023 3:42 PM EST Hold pomalyst and follow up with Dr. Molina to discuss treatment options. Thi Valera PA-C * Telephone Encounter - Kanika Aquino RN - 08/07/2023 1:12 PM EST Pt's calls stating pt took his pomalyst on Saturday and Saturday, as well as his dex. Pt is severely weak last night and today. states pt slipped onto the floor this morning and she needed someone to come and help her get him up. Pt is so weak he can hardly move. Denies any other issues/concerns. Pt did not receive his carfilzomib last week. Please advise Kanika Aquino RN documented in [facility]01[facility]03[facility]12-20[facility]2023 Note [facility]12[facility]13-[facility]12[facility] History of Present illness Narrative* David Molina MD - 06/12/2023 12:47 PM EST Et PATIENT NAME: Missy Salgado [facility] NO.: [id number] ATTENDING PHYSICIAN: David Molina MD DATE OF SERVICE: June 12, 2023 Some of the elements of this note have been copied from my previous progress note dated 06/05/2023. All the information has been reviewed carefully. Dear Dr. Allie Solares here is an update on a follow up visit on male Missy Salgado at the clinic June 12, 2023 Diagnosis: 1. Multiple Myeloma- FISH- Normal Treatment History: 1. 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 T9 surgical resection 2010 3. 6 cycles of CyBord 2010 4. L Clavicular mass 01/2017 5. 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 L Orbital mass radiation 09/2018 8. VRD 6 cycles- Completed 05/2019- Brian Maintenance- 05/2021- Progression 9. Rib Xray 05/[address] Gunn at [facility] as well.-- Started Darzalex and Dex 07/26/2021. Dex stopped 09/04/2022- Insomnia- Dariela last dose 04/16/2023 11. Established care with me 09/27/2021 12. Progressive disease 05/2023 13. KPD Started 06/05/2023 14. Radiation Sternum 06/10/2023 HPI: Missy Salgado is a 83 year old year old male here for follow up. Pain in the sternum slightly less and he is tired and denies any diarrhea andor abdominal pain . Denies any dyspnea and or chest pain PAST MEDICAL HISTORY Diagnosis Date CAD (coronary artery disease) Hyperlipidemia Hypertension Multiple myeloma (HCC) Myocardial infarction (HCC) Presence of Watchman left atrial appendage closure device Social History Tobacco Use Smoking status: Former Packs/day: 1 Types: Cigarettes Quit date: 07/17/1981 Years since quittin.9 Passive exposure: Never Smokeless tobacco: Never Vaping Use Vaping Use: Never used Substance Use Topics Alcohol use: Yes Alcohol/week: 7.0 standard drinks of alcohol Types: 7 Shots of liquor per week Drug use: Never History reviewed. No pertinent family history. Past medical, social and family history reviewed without any changes. REVIEW OF SYSTEMS GENERAL: No weight loss, malaise or fevers. No night sweats. HEENT: Negative for headaches, No changes in hearing or vision, no nose bleeds or other nasal problems. RESPIRATORY: Negative for cough, wheezing and shortness of breath CARDIOVASCULAR: Negative for chest pain, leg swelling and palpitations GI: Negative for abdominal discomfort, blood in stools or black stools and change in bowel habits : Negative for dysuria, frequency and incontinence MUSCULOSKELETAL: Negative for joint pain or swelling, back pain, and muscle pain. SKIN: Negative for lesions, rash, and itching. HEMATOLOGY/LYMPHOLOGY Negative for prolonged bleeding, bruising easily, and swollen nodes. NEURO: Negative for numbness or tingling of hands/feet. No weakness. PHYSICAL EXAMINATION: BP 133/74 Pulse 80 Temp (Src) 97.8 (Temporal) Resp 18 Ht 5' 11.457 (1.82m) Wt 230 lb 2.6oz (104.4kg) SpO2 94% BMI 31.69 kg/(m^2). Wt 93.1 kg (205 lb 3.2 oz) BMI 27.7 kg/m2 Last 3 Encounter Wt Readings: Date: Wt: 10/31/2021 93.1 kg (205 lb 3.2 oz) 10/17/2021 92.2 kg (203 lb 3.2 oz) 10/03/2021 91.8 kg (202 lb 4.8 oz) General appearance:ECOG PERFORMANCE STATUS: 1- Restricted in physically strenuous activity. Carries out light duty. Patient in NAD. Skin: Skin color, texture, turgor normal. No rashes or lesions. Eyes: Anicteric sclera. Pupils are equally round and reactive to light. Extraocular movements are intact. Lymph Nodes: No cervical, supraclavicular, axillary or inguinal adenopathy. Oropharynx: Lips, mucosa, and tongue normal. Back: No pain to percussion. Negative SLR test Lungs clear to auscultation, No wheezing or rhonchi Heart: RRR without murmur, gallop, or rubs. Abdomen soft, non-tender. No masses, organomegaly Extremities: No deformities. No edema Neuro: Gait and speech normal. Reflexes normal and symmetric. Muscular strength intact. Sensation grossly intact. Rectal: Deferred : Deferred LABS: Glucose (mg/dL) Date Value 05/14/2023 121 08/01/2022 85 Potassium (mmol/L) Date Value 05/14/2023 4.7 08/01/2022 4.5 Sodium (mmol/L) Date Value 05/14/2023 139 08/01/2022 138 Chloride (mmol/L) Date Value 05/14/2023 104 08/01/2022 104 CO2 (mmol/L) Date Value 05/14/2023 26 08/01/2022 25 Creatinine (mg/dL) Date Value 05/14/2023 1.43 CREATININE (mg/dL) Date Value 08/01/2022 1.4 BUN (mg/dL) Date Value 05/14/2023 25 Anion Gap (mmol/L) Date Value 05/14/2023 9 08/01/2022 13.5 Calcium (mg/dL) Date Value 08/01/2022 9.2 Calcium, Total (mg/dL) Date Value 05/14/2023 9.2 Protein, Total (g/dL) Date Value 05/14/2023 7.0 05/14/2023 6.5 08/01/2022 6.6 Albumin (g/dL) Date Value 05/14/2023 4.0 08/01/2022 3.9 Bilirubin, Total (mg/dL) Date Value 05/14/2023 0.2 08/01/2022 0.2 Alkaline Phosphatase (U/L) Date Value 05/14/2023 74 08/01/2022 82.2 AST (U/L) Date Value 05/14/2023 18 08/01/2022 22 ALT (U/L) Date Value 05/14/2023 10 08/01/2022 14 WBC Date Value Ref Range Status 06/12/2023 13.23 (H) 3.70 - 11.00 k/uL Preliminary RBC Date Value Ref Range Status 06/12/2023 4.03 (L) 4.20 - 6.00 m/uL Preliminary Hemoglobin Date Value Ref Range Status 06/12/2023 14.3 13.0 - 17.0 g/dL Preliminary Hematocrit Date Value Ref Range Status 06/12/2023 42.1 39.0 - 51.0 % Preliminary MCV Date Value Ref Range Status 06/12/2023 104.5 (H) 80.0 - 100.0 fL Preliminary MCH Date Value Ref Range Status 06/12/2023 35.5 (H) 26.0 - 34.0 pg Preliminary MCHC Date Value Ref Range Status 06/12/2023 34.0 30.5 - 36.0 g/dL Preliminary RDW-CV Date Value Ref Range Status 06/12/2023 13.9 11.5 - 15.0 % Preliminary Platelet Count Date Value Ref Range Status 06/12/2023 178 150 - 400 k/uL Preliminary MPV Date Value Ref Range Status 06/12/2023 10.5 9.0 - 12.7 fL Preliminary Abs Neut Date Value Ref Range Status 05/14/2023 6.90 1.45 - 7.50 k/uL Final Lymphocytes % Date Value Ref Range Status 05/14/2023 12.1 % Final Abs Lymph Date Value Ref Range Status 05/14/2023 1.17 1.00 - 4.00 k/uL Final Monocytes % Date Value Ref Range Status 05/14/2023 12.6 % Final Abs Tate Date Value Ref Range Status 05/14/2023 1.22 (H) <0.87 k/uL Final Eosinophils % Date Value Ref Range Status 05/14/2023 2.8 % Final Abs Eosin Date Value Ref Range Status 05/14/2023 0.27 <0.46 k/uL Final Basophils % Date Value Ref Range Status 05/14/2023 0.6 % Final Abs Baso Date Value Ref Range Status 05/14/2023 0.06 <0.11 k/uL Final PATH: BM Biopsy 08/2018: A. Bone marrow, right posterior iliac crest, biopsy, aspirate smear, and peripheral blood smear: - Normocellular bone marrow (30%) with trilineage hematopoiesis and 3% plasma cells, see comment. - Decreased iron stores without ring sideroblasts. B. Bone marrow, right posterior iliac crest, clot section: - Normocellular bone marrow (30%) with trilineage hematopoiesis and 3% plasma cells, see comment. 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 Plasma cells are not increased (3%), confirmed by CD138 stain. In situ hybridization for kappa and lambda light chains appear to be polytypic. The special stain for Congo red performed on the core biopsy and clot section is negative for amyloid deposition. The flow cytometric analysis of the marrow aspirate reveals polytypic plasma cells and no immunophenotypic evidence of an abnormal population of T lymphocytes, B lymphocytes or blasts. Overall, there is no morphologic or immunophenotypic evidence of plasma cell neoplasm. Correlation with clinical findings and cytogenetic/FISH studies is recommended. Probe/Control Range Patient/Interpretation 1p32.3(CDKN2C)-1signal/0-3.6% 0%/negative 1q21.3(CKS1B)-3signals/0-3.7% 0%/negative 3q27(BCL6)-3signals/0-2.2% 0%/negative 4y11-63,5p15.2(DHJ2S-C1D39:C8S063)-3signals/0-0.6% 0%/negative 8q24(MYC)-bap/0-3.0% 0%/negative 11q22.3(ODILON)-3signals/0-0.6% 0%/negative 12p13(ETV6)-1signal/0-4.1% 0.5%/negative 13q14(RB1)-1signal/0-4.2% 0.5%/negative 13q34(LAMP1)-1signal/0-3.0% 0%/negative 17p13.1(TP53)-1signal/0-3.2% 0.5%/negative 21q22(RUNX1)-3signals/0-0.6% 0%/negative 14q32.3-11q13(IGH-CCND1)/0-0.6% 0%/negative IMAGING: PET 05/2021: 1. Mild metabolic activity associated with the posterior left 9th rib lesion and associated soft tissue mass. 2. No metabolic abnormality identified in the previously described osseous abnormalities in the calvarium, left clavicle and spine. No new site of disease identified. CT of the chest and Abdomen and Pelvis 12/2021: 1. No acute intrathoracic abnormality. 2. Left 9th rib lytic lesion has progressed with new lytic lesion in the manubrium. These are likely due to history of multiple myeloma. 3. Large amount of high attenuation fluid/soft tissue in the urinary bladder, concerning for blood products. Underlying lesion would be difficult to exclude. Clinical correlation is recommended. 4. No acute intra-abdominal abnormality. 5. Age-indeterminate fracture of the right L3 transverse process. 6. Diverticulosis without diverticulitis. ECHO 03/2021: Summary Left ventricle is normal in size. Global left ventricular systolic function appears low normal. Calculated EF via Torres's method is 50 %. Trivial tricuspid regurgitation. Trivial pulmonic insufficiency. PET 05/2022: 1. HEAD and NECK: No evidence of focal uptake to suggest FDG avid neoplastic process.. 2. CHEST: No evidence of focal uptake to suggest FDG avid neoplastic process.. 3. ABDOMEN/PELVIS: No evidence of focal uptake to suggest FDG avid neoplastic process.. 4. EXTREMITIES/SKELETON: Expansile lesion in the left medial clavicle head, minimal change since prior study. PET Scan 05/2023: Head and Neck: * No evidence of FDG avid neoplastic process Chest: * No evidence of FDG avid neoplastic process Abdomen and pelvis: * No evidence of FDG avid neoplastic process Musculoskeletal: * Significant worsening of the now 5.2 cm manubrial expansile lesion compared to 01/11/2022. * Stable additional findings, as described. Assessment and Plan: Missy Salgado is a 83 year old year old male here for follow up. MM- therapy sequences summarized above was started on Darzalex and dex and will continue and followup on myeloma parameters He does not like the dex and will only take it on the days which he gets Darzalex. His myeloma parameters are trending slightly up. His PET 05/2022 was unchanged and no progression. Continue Darzalex. Dex was stopped due to insomnia and follow myeloma parameters, there is an upward trend and PET with sternal progression. Discussed the findings and he has fair amount of comorbidities. Suggested KPD and he has elected to stay locally for therapy. [facility] Started KPD 06/05/2023 and here for week 2 of cycle 1. Post sternal XRT 06/10/2023 Percoet for pain Discussed bone resorptive agents and patient states that he is not interested understanding the rational for their use. Bladder tumor post TURBT and bleeding and subsequent arrest and transfer to [place].Off Plavix and Xarelto and stable. He will re-establish with urology in [place] and has completed XRT 01/2023 and follows urology Neuropathy- Stable- Saw Neurology and on PT Back pain- Chronic PORT placement See back in 1 week for week 3 of cycle 1 Thank you for the kind referral. If there are any questions and or concerns please do not hesitate to contact me at [phone]. David Molina MD Hematology/Medical Oncology [facility] Jennifer Srivastava spent a total of 30 minutes on the date of the service which included preparing to see the patient, [id number] patient care, completing clinical documentation, obtaining and/or reviewing separately obtained history, performing a medically appropriate examination, counseling and educating the pat ient/family/caregiver and ordering medications, tests, or procedures. CC: MD Allie Mixon MD documented in this encounterSouthwest [facility] Center12-13-2023 Miscellaneous Notes* Telephone Encounter - Kanika Aquino RN - 06/12/2023 11:17 AM EST Pt's calls to clarify the directions of pt's dexamethasone. Discussed with Dr Molina and verified that pt is to take the dex on his off week on Saturday since he will be getting steroid here during treatments. verbalized understanding and denies further questions at this time. Kanika Aquino RN documented in this encounterSouthwest General Health Center12-12-2023 Miscellaneous Notes* Telephone Encounter - Kanika Aquino RN - 06/11/2023 4:12 PM EST Voicemail received from [facility]. Salgado stating [facility] and he will be receiving his next script on 07/03/22. This will be when pt is due to start his next cycle. Kanika Aquino RN * Telephone Encounter - Kanika Aquino RN - 06/11/2023 10:57 AM EST Pt received first pomalyst fill through free drug program while waiting for pt to be established with [place] doctor. [facility]. Spoke with today who states she isn't sure if they will be filling the pomalyst or not. states [facility] today or tomorrow to ask them and will let us know. If doesn't have an answer tomorrow I'll give them a call to follow up. Kanika Aquino RN documented in this encounterSouthwest General Health Center12-11-2023 Miscellaneous Notes* Telephone Encounter - Kanika Aquino RN - 06/10/2023 2:39 PM EST CYCLE 1/DAY 1 POST TREATMENT CALL Today's date: June 10, 2023 Treatment Regimen: kyprolis, pomalyst C1D1 Date: 06/05/23 Called patient to follow-up on symptom management. Spoke with patient SYMPTOM ASSESSMENT Neuro: None CV/Resp: Sternal pain from lesion, percocet helps and starting palliative radiation GI/: Appetite: decreased appetite, Taste changes everything is off, Fluid intake: good, and denies N/V, D/C Integument: None Activity: Patient reported decreased energy level Pain: sternal pain, percocet helps Fever: No Chills: No Any new referrals needed? No Reinforced CURRENT treatment education based on current and anticipated symptoms. Discussed port/line care and patient verbalizes understanding: No Patient instructed to contact office or after hours Hematology/Oncology fellow for: temperature ? 100.4; questions or concerns. Patient verbalized understanding of when to seek medical attention and after hours number protocol. Kanika Aquino, RN documented in this encounterSouthwest General Health Center12-11-2023 NoteThe [facility]12-11-2023 History of Present illness Narrative* Ana Goldberg MD - 06/10/2023 2:19 PM EST Radiation Oncology - On Treatment Review (OTR) Note PATIENT NAME: Missy Salgado PATIENT DIAGNOSIS: Multiple myeloma COURSE: palliative AREA TREATED: Sternal area CURRENT DOSE: 800 cGy in 1 fx PLANNED DOSE: 800 cGy in 1 fx SUBJECTIVE: Pain persist in sternal area. No other new issues EXAM: KPS: 80 General Appearance: Alert and oriented. No acute distress. Radiation dermatitis: No IMAGING/LAB RESULTS: None Treatment chart checked: Yes Patient treatment site reviewed and verified:Yes Port films reviewed and current:Yes Medications started: None ASSESSMENT/PLAN: Patient starting radiation today. Plan of care and expectations again reviewed. Plan, MU calculations and conformal plan reviewed. Initial imaging including CBCT verification with kvkv stereoscopic setup and then subsequent portal giles reviewed. First treatment given. Continue radiation as prescribed. Ana Goldberg MD documented in this encounterSouthwest General Health Center12-11-2023 NoteThe [facility]12-08-2023 History of Present illness Narrative* Ana Goldberg MD - 06/07/2023 12:00 AM EST MISSY SALGADO [id number] 06/07/2023 [facility] Radiation Oncology Department SIMULATION NOTE DATE OF SIMULATION: 06/07/2023 THERAPIST: Dina Bender<Select> MACHINE: [employer] DIAGNOSIS: Multiple pogxzzmC13.0 AREA: sternum CONTRAST: None Consent in Epic: Yes PATIENT POSITION: Supine. FIXATION DEVICE: In order to achieve accurate and reproducible treatments, the patient is immobilized with orfit AIO A time-out was conducted and recorded by the therapist. CT scan was completed for target localization and planning. Field arrangement will be determined after plan has been completed. The patient is scheduled for a verification simulation on the treatment machine to ensure proper set-up and field arrangement is correct prior to the first treatment of primary and boost giles if applicable. Patient education will be completed per nursing. Electronically Signed Nura Goldberg M.D. / CDT :49 AM documented in this encounterSouthwest General Health Center12-08-2023 History of Present illness Narrative* Ana Goldberg MD - 06/07/2023 12:00 AM EST MISSY SALGADO [id number] 06/07/2023 [facility] Department of Radiation Oncology Treatment Planning Note For reasons stated in the consult note, Missy Salgado is a candidate for radiation therapy. Based on review and interpretation of the relevant diagnostic studies together with the exam findings, Missy Salgado was simulated on 06/07/2023 at which time the target volume and/or requisite giles were delineated, as indicated in the simulation note, to be treated according to the prescription. After reviewing the treatment plan with dosimetry, the plan was approved to deliver the prescribed course of radiation to the target area to allow for the best isodose distribution, treating to the 99% isodose line with 6 AND 10MV and 3 giles. A completed summary of this plan dated 06/10/2023 incorporated herein by reference includes dose, beam arrangements, energy, blocking, isodose distribution, and/or ports and DVH. Electronically Signed Nura Goldberg M.D. :50 AM documented in this encounterSouthwest General Health Center12-08-2023 [facility]12-08-2023 NoteThe [facility]12-06-2023 NoteThe [facility]12-06-2023 History of Present illness Narrative* Ana Goldberg MD - 06/05/2023 2:03 PM EST Radiation Oncology - New Patient/Consult Note PATIENT NAME: Missy Salgado PATIENT REQUESTING PROVIDER: .Dr. Molina DIAGNOSIS: Multiple myeloma. HPI: Patient presents with increasing pain related to sternal mass related to his known multiple myeloma. Patient states that over the last 4 to 6 weeks he has had increasing pain in the mid to upper sternum. Pain worse with movement rolling over in bed etc. Patient notes some swelling in the area. Recent PET scan demonstrating:Head and Neck: * No evidence of FDG avid neoplastic process Chest: * No evidence of FDG avid neoplastic process Abdomen and pelvis: * No evidence of FDG avid neoplastic process Musculoskeletal: * Significant worsening of the now 5.2 cm manubrial expansile lesion compared to 01/11/2022. * Stable additional findings, as described. 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 He has been on multiple lines of systemic treatment. Due to progression recently started carfilzomib, pomalidomide, dexamethasone. ALLERGIES Allergen Reactions Amoxicillin Other: See Comments Grjhiyg-Fyh-Cmq Red* Other: See Comments Muscle stiffness Current Outpatient Medications on File Prior to Visit Medication Sig pomalidomide (POMALYST) 3 mg capsule Take 1 capsule (3 mg) by mouth once daily for 21 days. acyclovir (ZOVIRAX) 400 mg tablet Take 1 tablet by mouth once daily Bifidobacterium infantis (ALIGN ORAL) Take by mouth. aspirin 81 mg cap Take by mouth. metoprolol tartrate, short acting, (LOPRESSOR) 25 mg tablet Take 0.5 tablets by mouth twice daily. (Patient taking differently: Take 12.5 mg by mouth once daily.) calcium carbonate/vitamin D3 (CALCIUM 500 + D ORAL) Take by mouth. Cholecalciferol, Vitamin D3, (VITAMIN D) 25 mcg (1,000 unit) cap Take 1 capsule by mouth once daily. dexAMETHasone (DECADRON) 4 mg tablet Take 3 tablets by mouth every 4 weeks. oxyCODONE-acetaminophen (PERCOCET) 5-325 mg tablet Take 1 tablet by mouth every 8 hours as needed for pain. pomalidomide (POMALYST) 3 mg capsule Take 1 capsule (3 mg) by mouth once daily. For 21 days, followed by 7 days off prochlorperazine (COMPAZINE) 10 mg tablet Take 1 tablet by mouth every 6 hours as needed. sildenafil (VIAGRA) 100 mg tablet Take 1 tablet by mouth as needed. Lacto.acidophilus-Bif.animalis 32 billion cell cap Take 1 capsule by mouth once daily. No current facility-administered medications on file prior to visit. PAST MEDICAL HISTORY Diagnosis Date CAD (coronary artery disease) Hyperlipidemia Hypertension Multiple myeloma (HCC) Myocardial infarction (HCC) Presence of Watchman left atrial appendage closure device Prior radiation therapy, collagen vascular disease, or inflammatory bowel disease: Yes Any implanted or external electric devices? No PAST SURGICAL HISTORY Procedure Laterality Date BACK SURGERY HX BONE MARROW ASPIRATION 2018 BONE MARROW BIOPSY 02/05/2017 Clavicular head mass CYSTOSCOPY 03/2019 HERNIA REPAIR HX NEEDLE ASPIRATION 10/2010 T9 Bone lesion STENT PLACEMENT No family history on file. Social History Tobacco Use Smoking status: Former Packs/day: 1 Types: Cigarettes Quit date: 07/17/1981 Years since quittin.9 Passive exposure: Never Smokeless tobacco: Never Vaping Use Vaping Use: Never used Substance Use Topics Alcohol use: Yes Alcohol/week: 7.0 standard drinks of alcohol Types: 7 Shots of liquor per week Drug use: Never COMPLETE REVIEW OF SYSTEMS: GENERAL: feeling well without fatigue, no recent change in weight RESPIRATORY: no cough, no wheezing or shortness of breath though having pain with cough CARDIOVASCULAR: no palpitations MUSCULOSKELETAL: See HPI SKIN: no rash NEURO: no numbness or paresthesias and no weakness of the extremities PHYSICAL EXAM: VS: BP 132/80 Pulse 83 Temp (!) 35.9 C (96.7 F) Resp 18 SpO2 95% KPS: 90 General Appearance: Alert and oriented. No acute distress. Chest: Tender over mid upper sternal area fullness in this area noted as well no overlying skin changes Musculoskeletal: No edema. Normal ROM in extremities. No bone or spine tenderness. Neuro: Speech fluent. Gait normal. No focal deficits. Skin: No rashes noted Lymphatics: No palpable lymphadenopathy. Hematologic: No signs of active bleeding. RADIOLOGY/LABORATORY DATA: see HPI ASSESSMENT AND PLAN: Multiple myeloma with progression including sternal mass with increasing pain. Patient I do feel would benefit from palliative treatment. Recommend 800 cGy in 1 fraction. Simulation will be scheduled this week anticipating delivering the treatments within the next 3 to 5 days. Risk benefits rationale discussed at length. Signed by: Ana Goldberg MD cc: Alexei Guzmán ([facility]) [address] [place] [phone] No referring provider defined for this encounter. documented in this encounterSouthwest General Health Center12-06-2023 NoteThe [facility]12-06-2023 Miscellaneous Notes* Telephone Encounter - Kanika Aquino RN - 06/05/2023 11:08 AM EST Pt will be seeing Dr Goldberg at 1230 today. Pt's notified and she will have him here. Kanika Aquino RN * Telephone Encounter - Kanika Aquino RN - 06/05/2023 10:18 AM EST Spoke with Ang and she will discuss with Dr Goldberg and hopefully see him when he's here today. She'll call me back soon. Kanika Aquino RN * Telephone Encounter - David Molina MD - 06/04/2023 11:52 PM EST Please see if radiation can see him on Saturday as well. * Telephone Encounter - Kanika Aquino RN - 06/04/2023 8:41 AM EST Call received from pt/ stating pt's symptoms have worsened since yesterday. Pt states he's too short of breath to talk and he handed the phone to his to talk for him. states pt's sternal pain is much worse and it radiates through his back. Pt is short of breath. describes this as he needs to really work at breathing . Discussed with Thi Disposition: per Thi's recommendation, patient directed to: Emergency Room due to the issue being urgent. states she will take pt to [facility] in [place] because this is where their daughter works. Maisha: can you keep an eye out for records. Kanika Aquino RN documented in this [facility]-2023 Miscellaneous Notes* Telephone Encounter - Geni Crane - 06/04/2023 8:11 AM EST Patient has been rescheduled for 06/05 and notified. While on the phone, patient in the background with spouse stating he feels really bad today and his chest feels like it broke loose . Transferred to Marta Aquino to access. Geni Crane * Telephone Encounter - Kanika Aquino RN - 06/03/2023 3:16 PM EST Pt can start any day this week. PSS: please call pt/ and see if they would like to come in sooner than Saturday to start treatment since he will be getting his pills in the mail tomorrow. Thanks Kanika Aquino RN * Telephone Encounter - Kanika Aquino RN - 06/03/2023 1:52 PM EST Call placed to Jazmín in pharmacy and she will check on when we will be getting kyprolis in. Kanika Aquino RN * Telephone Encounter - David Molina MD - 06/03/2023 1:20 PM EST We can start earlier if we can * Telephone Encounter - Kanika Aquino RN - 06/03/2023 12:32 PM EST Call received from pt's stating pt will receive his pomalyst tomorrow. Pt will start this on Saturday when he starts his kyprolis. states that pt has sternum pain. Pt takes tylenol in the morning and at bedtime with good relief. asking if he should be taking pain medication for pain? Since pt is getting good relief from tylenol, recommended that pt take this every 6 hours as needed if he's getting good relief. Pt's verbalized understanding and he will try this. Please advise if you have other recommendations. Kanika Aquino RN documented in this encounterSouth[facility] Center11-30-2023 Miscellaneous Notes* Telephone Encounter - Geni Crane - 05/30/2023 11:48 AM EST Patient has been rescheduled for Saturday, 06/07. notified, Thanks! Geni Royce * Telephone Encounter - Kanika Aquino RN - 05/30/2023 11:14 AM EST Pt is scheduled to start kyprolis/pomalyst tomorrow. Spoke with Kelli in pharmacy and this will need to be pushed out a week to 06/07/23. Pt's pomalyst still has 24-48 hours to be approved. We expedited this today. PSS: please call pt and push tomorrow's appointments out a week please. Thanks Kanika Aquino RN documented in this encounterSouth[facility] Center11-17-2023 Miscellaneous Notes* Telephone Encounter - David Molina MD - 05/17/2023 1:22 PM EST No * Telephone Encounter - Mara Crespo - 05/17/2023 1:06 PM EST Patient has an appt on 05/24. Would you like labs? documented in this encounterSouthwest [facility] Center11-17-2023 Telephone encounter Note * Telephone Encounter - Kanika Aquino RN - 05/17/2023 9:01 AM EST This information and script was faxed to the [facility] yesterday by Mary. Kanika Aquino RN [facility] Work Phone: 1(134) 561-233511-17-2023 Miscellaneous Notes* Telephone Encounter - Kanika Aquino RN - 05/17/2023 9:01 AM EST This [facility]. Kanika Aquino RN * Telephone Encounter - Jazmín Arroyo [facility] - 05/15/2023 3:00 PM EST Patient may be eligible to have [facility]. [facility]ary, however may require prior authorization. Paper Rx pended for Dr. Molina's signature, please include. Also will include current chart notes/past medical history. This information to be faxed to [facility] PCP, Dr. Noonan per [facility] instructions. Unfortunately, no turn around time estimation was given per [facility] pharmacy staff. Of note, be sure to include patient first and last name as well as last 4 of SSN on every page [facility]. Awaiting Rx at this time, and then will send in to [facility] to get process initiated. Dr. Noonan Follow up phone: - choose pharmacy option Recommended F/U in one week from time information is faxed. Jazmín Arroyo Rph documented in this encounterSouthwest [facility] Center11-17-2023 Miscellaneous Notes* Telephone Encounter - Kanika Mart - 05/17/2023 8:13 AM EST Patient is scheduled at [facility] Sunday 05/20 at 9:00AM patient aware of appt date and time * Telephone Encounter - Dina Feliz - 05/16/2023 12:[address] Molina, Whenever you get a free second, can you sign his Echo order? I'd love to get him scheduled. Thank you, Dina Feliz * Telephone Encounter - Kanika Aquino RN - 05/14/2023 2:54 PM EST PSS: Dr Molina would like pt to have echo done. Pt prefers [facility] in [place]. KK: please sign pending orders for echo and compazine Thanks Kanika Aquino RN documented in this encounterSouthwest [facility] Center11-17-2023 Evaluation note* Diagnosis Multiple myeloma not having achieved remission (HCC)- Primary Multiple myeloma, without mention of having achieved remission Stage 3a chronic kidney disease (HCC) Abnormal electrocardiogram (ECG) (EKG) documented in this encounter [facility]17[facility]23 Reason for referral (narrative)* Outpatient Procedure (Routine) - Pending Review Specialty Diagnoses / Procedures Referred By Contvesta t Referred To [facility] Diagnoses Multiple myeloma not having achieved remission (HCC) Stage 3a chronic kidney disease (HCC) Abnormal electrocardiogram (ECG) (EKG) Procedures ECHO ECHO TTHRC R-T 2D W/WOM-MODE COMPL SPEC&COLR D Thi Valera PA-C [address] [place] [address] [place] [address] [facility] [place] [address] [place] [address] Referral ID Status Reason Start Date Expiration Date Visits Requested Visits Authorized [id number] Pending Review Auto-Generat ed Referral 3 05/13/2024 1 1 [facility]11-16-[facility]23 Miscellaneous Notes* Telephone Encounter - Geni Crane - 05/16/2023 10:42 AM EST Patient has been scheduled for 05/24 and notified. Thanks! Geni Crane * Telephone Encounter - Geni Crane - 05/15/2023 4:59 PM EST Message out to Alex Massey for coordination. Geni Crane * Telephone Encounter - Kanika Aquino RN - 05/15/2023 2:50 PM EST Please call pt and schedule a follow up with Dr Molina as well as treatment in a week. Thanks Kanika Aquino RN * Telephone Encounter - David Molina MD - 05/15/2023 2:30 PM EST Order for Carfilzomib placed and have him start the Pom the same day as the Kyprolis start * Telephone Encounter - Kanika Aquino RN - 05/15/2023 10:19 AM EST Pt was in the office yesterday and educated on pomalyst and kyprolis. Pt was planning on going to [place], but has changed his mind and will be staying here for the winter to do treatment. When wouldyou like follow up and treatment scheduled for pt? Please place orders. Thanks Kanika Aquino RN documented in this encounterSouthwest [facility] Center11-15-2023 Telephone encounter Note * Telephone Encounter - Jazmín Arroyo RPh - 05/15/2023 3:00 PM EST Patient may be eligible to [facility]st is listed [facility], however may require prior authorization. Paper Rx pended for Dr. Molina's signature, please include. Also will include current chart notes/past medical history. This information to be faxed to [facility] PCP, Dr. Noonan per [facility] instructions. Unfortunately, no turn around time estimation was given per [facility] pharmacy staff. Of note, be sure to include patient first and last name as well as last 4 of SSN on every page faxed in to [facility]. Awaiting Rx at this time, and then will send in to [facility] PCP to get process initiated. Dr. Noonan Follow up phone: - choose pharmacy option Recommended F/U in one week from time information is faxed. Jazmín Arroyo Rph [facility]11-15-2023 Miscellaneous Notes* Telephone Encounter - Myesha Galicia RPh - 05/15/2023 2:50 PM EST Please sign this in the office, we need a printed [facility] RX and put in pharmacy folder David McKitrick, PharmD, BCOP documented in this encounterSouthwest General Health Center11-14-2023 History of Present illness Narrative* Kanika Aquino RN - 05/14/2023 3:10 PM EST ONCOLOGY PATIENT EDUCATION NOTE TOPIC: Chemotherapy, Medications: Kyprolis READINESS TO LEARN: COGNITIVE ABILITY: Alert and oriented MOTIVATION TO LEARN: Interested FAMILY SUPPORT: High - Very involved in pt care INSTRUCTION PROVIDED TO: Patient and Spouse INSTRUCTION PROVIDED BY: Nurse Coordinator, pharmacist PATIENT LEARNS BEST BY: Multiple Methods FACTORS AFFECTING LEARNING: None PHYSICAL LIMITATIONS AFFECTING LEARNING: None LEARNING RESPONSE DIAGNOSIS: Multiple Myeloma METHOD OF INSTRUCTION: Individual instruction Written instruction - handouts Verbal instruction PATIENT/FAMILY RESPONSE: Verbalizes understanding of: CHEMOTHERAPY-Regimen, toxicity and side effects INFECTION MANAGEMENT-Signs and symptoms of an infection and importance of contacting the physician MEDICAL REGIMEN-Importance of following prescribed medical regimen MEDICATION DOSE MISSED-Correct action to take if medication dose is missed MEDICATION PRESCRIBED-Accurate knowledge of prescribed medication prior to discharge MEDICATION ROUTE-Correct route for administration of the prescribed medication MEDICATION SIDE EFFECTS-Side effects associated with the medication that warrant a call to the physician PATIENT SAFETY PRINCIPLES SYMPTOM MANAGEMENT-Correct actions to take to manage symptoms associated with his/her disease/illness WORSENING CONDITION-Signs and symptoms of a worsening condition that warrant a call to the physician Information received as demonstrated by interest and questions FOLLOW UP PLAN: Patient instructed to call with any further issues Recommend - Recommend continued instruction and follow up as directed Follow up phone call. Contact information given. SUPPLEMENTAL MATERIAL: Written material was provided at this visit with the following information: - Chemotherapy education was provided by a pharmacist YES - Side effect management information was provided/discussed including but not limited to: abdominaldiscomfort, anemia, appetite changes, arthralgia, bowel habit changes, chest pain, diet, electrolyte disturbances, fatigue, fluid retention, headache, hypersensitivity reaction, infection, myalgia, na usea/vomitting, neutropenia, peripheral neuropathy, rash, risk for DVT, shortness of breath, skin changes, taste changes, thrombocytopenia YES - Provided important phone numbers and contacts during and after hours. YES - Provided information on symptoms that require immediate assistance. YES - Provided Chemotherapy when to call handouts YES - Preventing infection. YES - Treatment schedule and confirmation of appointment times. YES - Available support groups. NA - The importance of contraception during the course of chemotherapy YES - Neutropenic fever protocol discussed with patient, which included the importance of reporting anyfever of 100.4F (38.0C) or greater to the healthcare team as noted on the provided wallet card and/or magnet. YES Time Spent: 45 minutes REFERRAL (RECOMMENDATION): Pharmacy is working with patient on getting oral pomalyst filled. Pt will be leaving for [place] in 2 weeks and his care will be transferred there. Kanika Aquino RN ORAL ANTI-CANCER AGENTS EDUCATION patient and spouse here today for oral medication education of pomalyst for Multiple Myeloma READINESS TO LEARN Cognitive Ability: Alert and oriented Motivation to Learn: Interested Family Support: High - Very involved in pt care Instruction Provided to: Patient and Spouse Patient learns best by: Multiple Methods Factors affecting learning: None Physical limitation affecting learning: None LAWLER ASSESSMENT: 1.) Verified that patient knows that the oral agents are for cancer and are taken by mouth. Yes 2.) Medication review completed during visit. Yes 3.) Patient is able to swallow pills. Yes 4.) Patient is able to read the drug label/information. Yes 5.) Patient is able to open the medication bottles and packages. Yes 6.) Has patient taken other pills for cancer? YES, please explain: revlimid 7.) Is patient experiencing any symptoms that would affect their ability to keep down pills, for example nausea or vomiting? No 8.) Verified that patient understands prescription delivery, benefit investigation and refill process. Yes [facility] is working on assistance for medication as well as [facility] DRUG-SPECIFIC EDUCATION: 1.) Verified patient knows the drug name. Yes 2.) Verified patient understands the dose and schedule of oral anti cancer agent. Yes 3.) Verified patient knows what to do if a medication dose is missed. Yes 4.) Verified patient understands where to store the drug. Yes 5.) Verified patient understands potential side effects and how to manage them. Yes 6.)Verified patient understands handling precautions of oral anti cancer agent. Yes 7.) Verified patient was given written instructions and understands when and whom to call with questions. Yes 8.) Verified patient understands where and how to return drug. Yes 9.) Verified patient received drug specific adult education handout and neutropenic wallet card Yes EVALUATE: The patient and spouse demonstrated an understanding of all the above education using the teach-back method. Yes Instructed to call us with any questions, concerns, and/or unresolved symptoms. Will continue to follow up and provide reinforcement of teaching topics as needed. Kanika Aquino, RN documented in this encounterSouth[facility] Center11-14-2023 NoteThe [facility] NoteThe [facility]11-[facility] History of Present illness Narrative* David Molina MD - 05/14/2023 2:01 PM EST PATIENT NAME: Missy Salgado [facility] NO.: [id number] ATTENDING PHYSICIAN: David Molina MD DATE OF SERVICE: May 14, 2023 Some of the elements of this note have been copied from my previous progress note dated 04/16/2023.All the information has been reviewed carefully. Dear Dr. Allie Solares here is an update on a follow up visit on male Missy Salgado at the clinic May 14, 2023 Diagnosis: 1. Multiple Myeloma- FISH- Normal Treatment History: 1. 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 T9 surgical resection 2010 3. 6 cycles of CyBord 2010 4. L Clavicular mass 01/2017 5. 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 L Orbital mass radiation 09/2018 8. VRD 6 cycles- Completed 05/2019- Brian Maintenance- 05/2021- Progression 9. Rib Xray 05/[address] Gunn at [facility] as well.-- Started Darzalex and Dex 07/26/2021. Dex stopped 09/04/2022- Insomnia- Dariela last dose 04/16/2023 11. Established care with ma 09/27/2021 12. Progressive disease 05/2023 HPI: Missy Salgado is a 83 year old year old male here for follow up. Still tired and planning to go to [place] in 2 weeks. Denies any fevers and or chills. Denies any diarrhea. Continues with neuropathy and also denies any sternal and or chest pain. PAST MEDICAL HISTORY Diagnosis Date CAD (coronary artery disease) Hyperlipidemia Hypertension Multiple myeloma (HCC) Myocardial infarction (HCC) Presence of Watchman left atrial appendage closure device Social History Tobacco Use Smoking status: Former Packs/day: 1 Types: Cigarettes Quit date: 07/17/1981 Years since quittin.8 Passive exposure: Never Smokeless tobacco: Never Vaping Use Vaping Use: Never used Substance Use Topics Alcohol use: Yes Alcohol/week: 7.0 standard drinks of alcohol Types: 7 Shots of liquor per week Drug use: Never No family history on file. Past medical, social and family history reviewed without any changes. REVIEW OF SYSTEMS GENERAL: No weight loss, malaise or fevers. No night sweats. HEENT: Negative for headaches, No changes in hearing or vision, no nose bleeds or other nasal problems. RESPIRATORY: Negative for cough, wheezing and shortness of breath CARDIOVASCULAR: Negative for chest pain, leg swelling and palpitations GI: Negative for abdominal discomfort, blood in stools or black stools and change in bowel habits : Negative for dysuria, frequency and incontinence MUSCULOSKELETAL: Negative for joint pain or swelling, back pain, and muscle pain. SKIN: Negative for lesions, rash, and itching. HEMATOLOGY/LYMPHOLOGY Negative for prolonged bleeding, bruising easily, and swollen nodes. NEURO: Negative for numbness or tingling of hands/feet. No weakness. PHYSICAL EXAMINATION: BP 124/78 Pulse 84 Temp (Src) 97.5 (Temporal) Resp 16 Ht 5' 11.457 (1.82m) Wt 223 lb (101.2kg) SpO2 92% BMI 30.71 kg/(m^2). Wt 93.1 kg (205 lb 3.2 oz) BMI 27.7 kg/m2 Last 3 Encounter Wt Readings: Date: Wt: 10/31/2021 93.1 kg (205 lb 3.2 oz) 10/17/2021 92.2 kg (203 lb 3.2 oz) 10/03/2021 91.8 kg (202 lb 4.8 oz) General appearance:ECOG PERFORMANCE STATUS: 1- Restricted in physically strenuous activity. Carries out light duty. Patient in NAD. Skin: Skin color, texture, turgor normal. No rashes or lesions. Eyes: Anicteric sclera. Pupils are equally round and reactive to light. Extraocular movements are intact. Lymph Nodes: No cervical, supraclavicular, axillary or inguinal adenopathy. Oropharynx: Lips, mucosa, and tongue normal. Back: No pain to percussion. Negative SLR test Lungs clear to auscultation, No wheezing or rhonchi Heart: RRR without murmur, gallop, or rubs. Abdomen soft, non-tender. No masses, organomegaly Extremities: No deformities. No edema Neuro: Gait and speech normal. Reflexes normal and symmetric. Muscular strength intact. Sensation grossly intact. Rectal: Deferred : Deferred LABS: Glucose (mg/dL) Date Value 04/16/2023 106 08/01/2022 85 Potassium (mmol/L) Date Value 04/16/2023 4.0 08/01/2022 4.5 Sodium (mmol/L) Date Value 04/16/2023 138 08/01/2022 138 Chloride (mmol/L) Date Value 04/16/2023 102 08/01/2022 104 CO2 (mmol/L) Date Value 04/16/2023 26 08/01/2022 25 Creatinine (mg/dL) Date Value 04/16/2023 1.34 CREATININE (mg/dL) Date Value 08/01/2022 1.4 BUN (mg/dL) Date Value 04/16/2023 24 Anion Gap (mmol/L) Date Value 04/16/2023 10 08/01/2022 13.5 Calcium (mg/dL) Date Value 08/01/2022 9.2 Calcium, Total (mg/dL) Date Value 04/16/2023 9.8 Protein, Total (g/dL) Date Value 04/16/2023 7.1 04/16/2023 6.7 08/01/2022 6.6 Albumin (g/dL) Date Value 04/16/2023 4.0 08/01/2022 3.9 Bilirubin, Total (mg/dL) Date Value 04/16/2023 0.3 08/01/2022 0.2 Alkaline Phosphatase (U/L) Date Value 04/16/2023 81 08/01/2022 82.2 AST (U/L) Date Value 04/16/2023 18 08/01/2022 22 ALT (U/L) Date Value 04/16/2023 11 08/01/2022 14 WBC Date Value Ref Range Status 05/14/2023 9.66 3.70 - 11.00 k/uL Final RBC Date Value Ref Range Status 05/14/2023 3.92 (L) 4.20 - 6.00 m/uL Final Hemoglobin Date Value Ref Range Status 05/14/2023 14.0 13.0 - 17.0 g/dL Final Hematocrit Date Value Ref Range Status 05/14/2023 41.7 39.0 - 51.0 % Final MCV Date Value Ref Range Status 05/14/2023 106.4 (H) 80.0 - 100.0 fL Final MCH Date Value Ref Range Status 05/14/2023 35.7 (H) 26.0 - 34.0 pg Final MCHC Date Value Ref Range Status 05/14/2023 33.6 30.5 - 36.0 g/dL Final RDW-CV Date Value Ref Range Status 05/14/2023 13.6 11.5 - 15.0 % Final Platelet Count Date Value Ref Range Status 05/14/2023 228 150 - 400 k/uL Final MPV Date Value Ref Range Status 05/14/2023 9.9 9.0 - 12.7 fL Final Abs Neut Date Value Ref Range Status 05/14/2023 6.90 1.45 - 7.50 k/uL Final Lymphocytes % Date Value Ref Range Status 05/14/2023 12.1 % Final Abs Lymph Date Value Ref Range Status 05/14/2023 1.17 1.00 - 4.00 k/uL Final Monocytes % Date Value Ref Range Status 05/14/2023 12.6 % Final Abs Tate Date Value Ref Range Status 05/14/2023 1.22 (H) <0.87 k/uL Final Eosinophils % Date Value Ref Range Status 05/14/2023 2.8 % Final Abs Eosin Date Value Ref Range Status 05/14/2023 0.27 <0.46 k/uL Final Basophils % Date Value Ref Range Status 05/14/2023 0.6 % Final Abs Baso Date Value Ref Range Status 05/14/2023 0.06 <0.11 k/uL Final PATH: BM Biopsy 08/2018: A. Bone marrow, right posterior iliac crest, biopsy, aspirate smear, and peripheral blood smear: - Normocellular bone marrow (30%) with trilineage hematopoiesis and 3% plasma cells, see comment. - Decreased iron stores without ring sideroblasts. B. Bone marrow, right posterior iliac crest, clot section: - Normocellular bone marrow (30%) with trilineage hematopoiesis and 3% plasma cells, see comment. 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 Plasma cells are not increased (3%), confirmed by CD138 stain. In situ hybridization for kappa and lambda light chains appear to be polytypic. The special stain for Congo red performed on the core biopsy and clot section is negative for amyloid deposition. The flow cytometric analysis of the marrow aspirate reveals polytypic plasma cells and no immunophenotypic evidence of an abnormal population of T lymphocytes, B lymphocytes or blasts. Overall, there is no morphologic or immunophenotypic evidence of plasma cell neoplasm. Correlation with clinical findings and cytogenetic/FISH studies is recommended. Probe/Control Range Patient/Interpretation 1p32.3(CDKN2C)-1signal/0-3.6% 0%/negative 1q21.3(CKS1B)-3signals/0-3.7% 0%/negative 3q27(BCL6)-3signals/0-2.2% 0%/negative 0q74-31,5p15.2(QWS8Q-Q2Q71:X4H875)-3signals/0-0.6% 0%/negative 8q24(MYC)-bap/0-3.0% 0%/negative 11q22.3(ODILON)-3signals/0-0.6% 0%/negative 12p13(ETV6)-1signal/0-4.1% 0.5%/negative 13q14(RB1)-1signal/0-4.2% 0.5%/negative 13q34(LAMP1)-1signal/0-3.0% 0%/negative 17p13.1(TP53)-1signal/0-3.2% 0.5%/negative 21q22(RUNX1)-3signals/0-0.6% 0%/negative 14q32.3-11q13(IGH-CCND1)/0-0.6% 0%/negative IMAGING: PET 05/2021: 1. Mild metabolic activity associated with the posterior left 9th rib lesion and associated soft tissue mass. 2. No metabolic abnormality identified in the previously described osseous abnormalities in the calvarium, left clavicle and spine. No new site of disease identified. CT of the chest and Abdomen and Pelvis 12/2021: 1. No acute intrathoracic abnormality. 2. Left 9th rib lytic lesion has progressed with new lytic lesion in the manubrium. These are likely due to history of multiple myeloma. 3. Large amount of high attenuation fluid/soft tissue in the urinary bladder, concerning for blood products. Underlying lesion would be difficult to exclude. Clinical correlation is recommended. 4. No acute intra-abdominal abnormality. 5. Age-indeterminate fracture of the right L3 transverse process. 6. Diverticulosis without diverticulitis. ECHO 03/2021: Summary Left ventricle is normal in size. Global left ventricular systolic function appears low normal. Calculated EF via Torres's method is 50 %. Trivial tricuspid regurgitation. Trivial pulmonic insufficiency. PET 05/2022: 1. HEAD and NECK: No evidence of focal uptake to suggest FDG avid neoplastic process.. 2. CHEST: No evidence of focal uptake to suggest FDG avid neoplastic process.. 3. ABDOMEN/PELVIS: No evidence of focal uptake to suggest FDG avid neoplastic process.. 4. EXTREMITIES/SKELETON: Expansile lesion in the left medial clavicle head, minimal change since prior study. PET Scan 05/2023: Head and Neck: * No evidence of FDG avid neoplastic process Chest: * No evidence of FDG avid neoplastic process Abdomen and pelvis: * No evidence of FDG avid neoplastic process Musculoskeletal: * Significant worsening of the now 5.2 cm manubrial expansile lesion compared to 01/11/2022. * Stable additional findings, as described. Assessment and Plan: Missy Salgado is a 83 year old year old male here for follow up. MM- therapy sequences summarized above was started on Darzalex and dex and will continue and followup on myeloma parameters He does not like the dex and will only take it on the days which he gets Darzalex. His myeloma parameters are trending slightly up. His PET 05/2022 was unchanged and no progression. Continue Darzalex. Dex was stopped due to insomnia and follow myeloma parameters, there is an upward trend and PET with sternal progression. Discussed the findings and he has fair amount of comorbidities. Suggested [facility] and they are going to [place] [facility] and I will reach out to that office and arrange a folow up and also presenting him at the My[facility]. Cellular therapy maybe a challenge for them Discussed bone resorptive agents and patient states that he is not interested understanding the rational for their use. Bladder tumor post TURBT and bleeding and subsequent arrest and transfer to [place].Off Plavix and Xarelto and stable. He will re-establish with urology in [place] and has completed XRT 01/2023 and follows urology Neuropathy- Stable- Saw Neurology and on PT Back pain- Chronic Patient going to [place]. Will start PD and will expect weekly Kyprolis to be added while there. Will see upon return Thank you for the kind referral. If there are any questions and or concerns please do not hesitate to contact me at [phone]. David Molina MD Hematology/Medical Oncology [facility] I spent a total of 30 minutes on the date of the service which included preparing to see the patient, [id number] patient care, completing clinical documentation, obtaining and/or reviewing separately obtained history, performing a medically appropriate examination, counseling and educating the pat ient/family/caregiver and ordering medications, tests, or procedures. CC: MD Allie Mixon MD documented in this encounterSouth[facility]11-07-2023 History of Present illness Narrative* Bonnie Tineo RN - 05/07/2023 12:45 PM EST Radiology Service Progress Note DATE OF SERVICE: May 07, 2023 TIME: 12:58 PM PATIENT IDENTITY VERIFICATION COMPLETED USING TWO (2) STANDARD IDENTIFIERS: Name and Date of confirmed by patient verbally. FALL SCREENING: Has the patient had 2 falls in the last year or 1 fall with injury or currently using an Ambulatory Assistive Device (Walker, Cane, Wheelchair, Crutches, etc.)? No PATIENT GENDER DATA: Male EXAM: CT -CONTRAST INDUCED NEPHROPATHY RISK FACTORS: Not applicable CREATININE: Creatinine Date Value Ref Range Status 04/16/2023 1.34 (H) 0.73 - 1.22 mg/dL Final 03/19/2023 1.37 (H) 0.73 - 1.22 mg/dL Final 02/19/2023 1.31 (H) 0.73 - 1.22 mg/dL Final Estimated Glomerular Filtration Rate Date Value Ref Range Status 04/16/2023 53 (L) >=60 mL/min/1.73m Final Comment: Estimated Glomerular Filtration Rate (eGFR) is calculated using the 2020 CKD-EPI creatinine equation. This equation utilizes serum creatinine, sex, and age as parameters. The creatinine assay has traceable calibration to isotope dilution- mass spectrometry. Refer to KDIGO guidelines for clinical interpretation. In patients with unstable renal function, e.g. those with acute kidney injury, the eGFRmay not accurately reflect actual GFR. P.O.C.T. RESULTS: N/A May 07, 2023 TREATMENT: N/A IV SITE: Ambulatory: A peripheral IV was started in the Left antecubital site with a Angio cath: 22gauge. IV SITE APPEARANCE: Clean,Dry and Intact SIGNATURE: Bonnie Tineo RN PATIENT NAME: Missy Salgado DATE: May 07, 2023 TIME: 12:58 PM * Elo Spear RT(R) - 05/07/2023 12:45 PM EST RADIOLOGY SERVICE PROGRESS NOTE SERVICE DATE: 05/07/2023 SERVICE TIME: 1:12 PM PATIENT IDENTITY VERIFICATION COMPLETED USING TWO (2) STANDARD IDENTIFIERS: Name and Date of confirmed by patient verbally POST EXAM PIV STATUS: Discontinued PROCEDURE TYPE: NM INJECT: PET/CT BODY SCAN. 13.4 mCi F18 FDG. No other medications given.. ADMINISTRATION TIME: 1253 PATIENT DISCHARGED TO: Ambulatory patient, left NM department area. A Diagnostic radioactive procedure has taken place, with no further precautions necessary other than routine body substance precautions. More information regarding radiation safety can be found usingthis link: [email or web address] SIGNATURE: RT Willian(R) PATIENT NAME: Missy Salgado DATE: May 07, 2023 TIME: 1:12 PM PAGER/CONTACT #: documented in this encounterSouth[facility]11-07-2023 Note[facility] Note[facility] Miscellaneous Notes * Addendum Note - David Molina MD - 04/16/2023 1:49 PM EDTAddended by: DAVID MOLINA on: 04/16/2023 01:49 PM Modules accepted: Orders documented in this encounterSouthwest [facility]10-17-2023 [facility]10[facility] History of Present illness Narrative* David Molina MD - 04/16/2023 1:12 PM EDT PATIENT NAME: Missy Salgado CLINIC NO.: [id number] ATTENDING PHYSICIAN: David Molina MD DATE OF SERVICE: April 16, 2023 Some of the elements of this note have been copied from my previous progress note dated 02/19/2023. All the information has been reviewed carefully. Dear Dr. Allie Solares here is an update on a follow up visit on male Missy Salgado at the clinic April 16, 2023 Diagnosis: 1. Multiple Myeloma- FISH- Normal Treatment History: 1. 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 T9 surgical resection 2010 3. 6 cycles of CyBord 2010 4. L Clavicular mass 01/2017 5. 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 L Orbital mass radiation 09/2018 8. VRD 6 cycles- Completed 05/2019- Brian Maintenance- 05/2021- Progression 9. Rib Xray 05/[address] Gunn at [facility] as well.-- Started Darzalex and Dex 07/26/2021. Dex stopped 09/04/2022- Insomnia 11. Established care with me 09/27/2021 HPI: Missy Salgado is a 83 year old year old male here for follow up. He feels tired but better and also continues with neuropathy and denies any diarrhea and or abdominal pain PAST MEDICAL HISTORY Diagnosis Date CAD (coronary artery disease) Hyperlipidemia Hypertension Multiple myeloma (HCC) Myocardial infarction (HCC) Presence of Watchman left atrial appendage closure device Social History Tobacco Use Smoking status: Former Packs/day: 1 Types: Cigarettes Quit date: 07/17/1981 Years since quittin.7 Passive exposure: Never Smokeless tobacco: Never Vaping Use Vaping Use: Never used Substance Use Topics Alcohol use: Yes Alcohol/week: 7.0 standard drinks of alcohol Types: 7 Shots of liquor per week Drug use: Never No family history on file. Past medical, social and family history reviewed without any changes. REVIEW OF SYSTEMS GENERAL: No weight loss, malaise or fevers. No night sweats. HEENT: Negative for headaches, No changes in hearing or vision, no nose bleeds or other nasal problems. RESPIRATORY: Negative for cough, wheezing and shortness of breath CARDIOVASCULAR: Negative for chest pain, leg swelling and palpitations GI: Negative for abdominal discomfort, blood in stools or black stools and change in bowel habits : Negative for dysuria, frequency and incontinence MUSCULOSKELETAL: Negative for joint pain or swelling, back pain, and muscle pain. SKIN: Negative for lesions, rash, and itching. HEMATOLOGY/LYMPHOLOGY Negative for prolonged bleeding, bruising easily, and swollen nodes. NEURO: Negative for numbness or tingling of hands/feet. No weakness. PHYSICAL EXAMINATION: BP 127/63 Pulse 89 Temp (Src) 98 (Temporal) Resp 16 Ht 5' 11.457 (1.82m) Wt 225 lb (102.1kg) SpO2 97% BMI 30.98 kg/(m^2). Wt 93.1 kg (205 lb 3.2 oz) BMI 27.7 kg/m2 Last 3 Encounter Wt Readings: Date: Wt: 10/31/2021 93.1 kg (205 lb 3.2 oz) 10/17/2021 92.2 kg (203 lb 3.2 oz) 10/03/2021 91.8 kg (202 lb 4.8 oz) General appearance:ECOG PERFORMANCE STATUS: 1- Restricted in physically strenuous activity. Carries out light duty. Patient in NAD. Skin: Skin color, texture, turgor normal. No rashes or lesions. Eyes: Anicteric sclera. Pupils are equally round and reactive to light. Extraocular movements are intact. Lymph Nodes: No cervical, supraclavicular, axillary or inguinal adenopathy. Oropharynx: Lips, mucosa, and tongue normal. Back: No pain to percussion. Negative SLR test Lungs clear to auscultation, No wheezing or rhonchi Heart: RRR without murmur, gallop, or rubs. Abdomen soft, non-tender. No masses, organomegaly Extremities: No deformities. No edema Neuro: Gait and speech normal. Reflexes normal and symmetric. Muscular strength intact. Sensation grossly intact. Rectal: Deferred : Deferred LABS: Glucose (mg/dL) Date Value 03/19/2023 114 08/01/2022 85 Potassium (mmol/L) Date Value 03/19/2023 4.4 08/01/2022 4.5 Sodium (mmol/L) Date Value 03/19/2023 136 08/01/2022 138 Chloride (mmol/L) Date Value 03/19/2023 101 08/01/2022 104 CO2 (mmol/L) Date Value 03/19/2023 27 08/01/2022 25 Creatinine (mg/dL) Date Value 03/19/2023 1.37 CREATININE (mg/dL) Date Value 08/01/2022 1.4 BUN (mg/dL) Date Value 03/19/2023 20 Anion Gap (mmol/L) Date Value 03/19/2023 8 08/01/2022 13.5 Calcium (mg/dL) Date Value 08/01/2022 9.2 Calcium, Total (mg/dL) Date Value 03/19/2023 9.0 Protein, Total (g/dL) Date Value 03/19/2023 6.8 03/19/2023 6.1 08/01/2022 6.6 Albumin (g/dL) Date Value 03/19/2023 3.8 08/01/2022 3.9 Bilirubin, Total (mg/dL) Date Value 03/19/2023 0.2 08/01/2022 0.2 Alkaline Phosphatase (U/L) Date Value 03/19/2023 88 08/01/2022 82.2 AST (U/L) Date Value 03/19/2023 21 08/01/2022 22 ALT (U/L) Date Value 03/19/2023 12 08/01/2022 14 WBC Date Value Ref Range Status 03/19/2023 9.74 3.70 - 11.00 k/uL Final RBC Date Value Ref Range Status 03/19/2023 3.76 (L) 4.20 - 6.00 m/uL Final Hemoglobin Date Value Ref Range Status 03/19/2023 13.2 13.0 - 17.0 g/dL Final Hematocrit Date Value Ref Range Status 03/19/2023 39.4 39.0 - 51.0 % Final MCV Date Value Ref Range Status 03/19/2023 104.8 (H) 80.0 - 100.0 fL Final MCH Date Value Ref Range Status 03/19/2023 35.1 (H) 26.0 - 34.0 pg Final MCHC Date Value Ref Range Status 03/19/2023 33.5 30.5 - 36.0 g/dL Final RDW-CV Date Value Ref Range Status 03/19/2023 14.6 11.5 - 15.0 % Final Platelet Count Date Value Ref Range Status 03/19/2023 234 150 - 400 k/uL Final MPV Date Value Ref Range Status 03/19/2023 10.0 9.0 - 12.7 fL Final Abs Neut Date Value Ref Range Status 03/19/2023 6.87 1.45 - 7.50 k/uL Final Lymphocytes % Date Value Ref Range Status 03/19/2023 12.2 % Final Abs Lymph Date Value Ref Range Status 03/19/2023 1.19 1.00 - 4.00 k/uL Final Monocytes % Date Value Ref Range Status 03/19/2023 13.4 % Final Abs Tate Date Value Ref Range Status 03/19/2023 1.31 (H) <0.87 k/uL Final Eosinophils % Date Value Ref Range Status 03/19/2023 3.0 % Final Abs Eosin Date Value Ref Range Status 03/19/2023 0.29 <0.46 k/uL Final Basophils % Date Value Ref Range Status 03/19/2023 0.5 % Final Abs Baso Date Value Ref Range Status 03/19/2023 0.05 <0.11 k/uL Final PATH: BM Biopsy 08/2018: A. Bone marrow, right posterior iliac crest, biopsy, aspirate smear, and peripheral blood smear: - Normocellular bone marrow (30%) with trilineage hematopoiesis and 3% plasma cells, see comment. - Decreased iron stores without ring sideroblasts. B. Bone marrow, right posterior iliac crest, clot section: - Normocellular bone marrow (30%) with trilineage hematopoiesis and 3% plasma cells, see comment. 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 Plasma cells are not increased (3%), confirmed by CD138 stain. In situ hybridization for kappa and lambda light chains appear to be polytypic. The special stain for Congo red performed on the core biopsy and clot section is negative for amyloid deposition. The flow cytometric analysis of the marrow aspirate reveals polytypic plasma cells and no immunophenotypic evidence of an abnormal population of T lymphocytes, B lymphocytes or blasts. Overall, there is no morphologic or immunophenotypic evidence of plasma cell neoplasm. Correlation with clinical findings and cytogenetic/FISH studies is recommended. Probe/Control Range Patient/Interpretation 1p32.3(CDKN2C)-1signal/0-3.6% 0%/negative 1q21.3(CKS1B)-3signals/0-3.7% 0%/negative 3q27(BCL6)-3signals/0-2.2% 0%/negative 6o43-16,5p15.2(DQZ0G-C2D16:V7E705)-3signals/0-0.6% 0%/negative 8q24(MYC)-bap/0-3.0% 0%/negative 11q22.3(ODILON)-3signals/0-0.6% 0%/negative 12p13(ETV6)-1signal/0-4.1% 0.5%/negative 13q14(RB1)-1signal/0-4.2% 0.5%/negative 13q34(LAMP1)-1signal/0-3.0% 0%/negative 17p13.1(TP53)-1signal/0-3.2% 0.5%/negative 21q22(RUNX1)-3signals/0-0.6% 0%/negative 14q32.3-11q13(IGH-CCND1)/0-0.6% 0%/negative IMAGING: PET 05/2021: 1. Mild metabolic activity associated with the posterior left 9th rib lesion and associated soft tissue mass. 2. No metabolic abnormality identified in the previously described osseous abnormalities in the calvarium, left clavicle and spine. No new site of disease identified. CT of the chest and Abdomen and Pelvis 12/2021: 1. No acute intrathoracic abnormality. 2. Left 9th rib lytic lesion has progressed with new lytic lesion in the manubrium. These are likely due to history of multiple myeloma. 3. Large amount of high attenuation fluid/soft tissue in the urinary bladder, concerning for blood products. Underlying lesion would be difficult to exclude. Clinical correlation is recommended. 4. No acute intra-abdominal abnormality. 5. Age-indeterminate fracture of the right L3 transverse process. 6. Diverticulosis without diverticulitis. ECHO 03/2021: Summary Left ventricle is normal in size. Global left ventricular systolic function appears low normal. Calculated EF via Torres's method is 50 %. Trivial tricuspid regurgitation. Trivial pulmonic insufficiency. PET 05/2022: 1. HEAD and NECK: No evidence of focal uptake to suggest FDG avid neoplastic process.. 2. CHEST: No evidence of focal uptake to suggest FDG avid neoplastic process.. 3. ABDOMEN/PELVIS: No evidence of focal uptake to suggest FDG avid neoplastic process.. 4. EXTREMITIES/SKELETON: Expansile lesion in the left medial clavicle head, minimal change since prior study. Assessment and Plan: Missy Salgado is a 83 year old year old male here for follow up. MM- therapy sequences summarized above was started on Darzalex and dex and will continue and followup on myeloma parameters He does not like the dex and will only take it on the days which he gets Darzalex. His myeloma parameters are trending slightly up. His PET 05/2022 was unchanged and no progression. Continue Darzalex. Dex was stopped due to insomnia and follow myeloma parameters, there is an upward trend and will follow the most recent results. Will plan on a PET and follow parameters andcontinue with the Darzalex for now Discussed bone resorptive agents and patient states that he is not interested understanding the rational for their use. Bladder tumor post TURBT and bleeding and subsequent arrest and transfer to [place].Off Plavix and Xarelto and stable. He will re-establish with urology in [place] and has completed XRT 01/2023 and follows urology Neuropathy- Stable- Neurology has scheduled the patient for PT Back pain- Chronic See back ion 4 weeks and labs and also PET scan Thank you for the kind referral. If there are any questions and or concerns please do not hesitate to contact me at [phone]. David Molina MD Hematology/Medical Oncology [facility] Srivastava spent a total of 30 minutes on the date of the service which included preparing to see the patient, [id number] patient care, completing clinical documentation, obtaining and/or reviewing separately obtained history, performing a medically appropriate examination, counseling and educating the pat ient/family/caregiver and ordering medications, tests, or procedures. CC: MD Allie Mixon MD documented in this encounterSouth[facility] Center10-11-2023 Miscellaneous Notes* Telephone Encounter - Rosalee Muniz RN - 04/10/2023 9:33 AM EDT Pt is due for repeat Hep B. Please sign pended order. Thank you, Rosalee Muniz RN documented in this encounterSouthwest [facility] Center09-19-2023 History of Present illness Narrative* Thi Valera PA-C - 03/19/2023 2:30 PM EDT PATIENT NAME: Missy Salgado [facility] NO.: [id number] ATTENDING PHYSICIAN: David Molina MD DATE OF SERVICE: Mar 19, 2023 (Elements copied from Dr. Molina's note dated February 19, 2023, have been reviewed and updated where appropriate, and all reflect current assessment and medical decision making during today's encounter, March 19, 2023) CC: follow up Diagnosis: 1. Multiple Myeloma- FISH- Normal Treatment History: 1. 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 T9 surgical resection 2010 3. 6 cycles of CyBord 2010 4. L Clavicular mass 01/2017 5. 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 L Orbital mass radiation 09/2018 8. VRD 6 cycles- Completed 05/2019- Brian Maintenance- 05/2021- Progression 9. Rib Xray 05/[address] Gunn at [facility] as well.-- Started Darzalex and Dex 07/26/2021. Dex stopped 09/04/2022- Insomnia 11. Established care with me 09/27/2021 HPI: Missy returns for treatment. No new pain or issues. Still with neuropathy but unchanged. Had a injection in his eye this morning for macular degeneration. Chronic back pain remains the same. Seeing urology for follow up in 2 weeks. No new concerns at this time PAST MEDICAL HISTORY Diagnosis Date CAD (coronary artery disease) Hyperlipidemia Hypertension Multiple myeloma (HCC) Myocardial infarction (HCC) Presence of Watchman left atrial appendage closure device Social History Tobacco Use Smoking status: Former Packs/day: 1 Types: Cigarettes Quit date: 07/17/1981 Years since quittin.6 Passive exposure: Never Smokeless tobacco: Never Vaping Use Vaping Use: Never used Substance Use Topics Alcohol use: Yes Alcohol/week: 7.0 standard drinks of alcohol Types: 7 Shots of liquor per week Drug use: Never No family history on file. Past medical, social and family history reviewed without any changes. REVIEW OF SYSTEMS GENERAL: No weight loss, malaise or fevers. No night sweats. HEENT: Negative for headaches, No changes in hearing or vision, no nose bleeds or other nasal problems. RESPIRATORY: Negative for cough, wheezing and shortness of breath CARDIOVASCULAR: Negative for chest pain, leg swelling and palpitations GI: Negative for abdominal discomfort, blood in stools or black stools and change in bowel habits : Negative for dysuria, frequency and incontinence MUSCULOSKELETAL: Negative for joint pain or swelling, back pain, and muscle pain. SKIN: Negative for lesions, rash, and itching. HEMATOLOGY/LYMPHOLOGY Negative for prolonged bleeding, bruising easily, and swollen nodes. NEURO: Negative for numbness or tingling of hands/feet. No weakness. PHYSICAL EXAMINATION: BP 126/73 Pulse 84 Temp (Src) 97.1 (Temporal) Resp 16 Ht 5' 11.457 [verified by 2 caregivers/ shoes on[ (1.82m) Wt 226 lb (102.5kg) SpO2 94% BMI 31.12 kg/(m^2). ECOG PERFORMANCE STATUS: 1- Restricted in physically strenuous activity. Carries out light duty. PHYSICAL EXAMINATION General: Alert and oriented, no distress, pleasant and cooperative. Heart: Regular, normal S1 and S2, no murmurs, rubs, or gallops Lungs: Clear to auscultation bilaterally Abdomen: Benign Extremities: Feet/ankles without edema, posterior tibial pulses full and symmetrical LABS: Glucose (mg/dL) Date Value 03/19/2023 114 08/01/2022 85 Potassium (mmol/L) Date Value 03/19/2023 4.4 08/01/2022 4.5 Sodium (mmol/L) Date Value 03/19/2023 136 08/01/2022 138 Chloride (mmol/L) Date Value 03/19/2023 101 08/01/2022 104 CO2 (mmol/L) Date Value 03/19/2023 27 08/01/2022 25 Creatinine (mg/dL) Date Value 03/19/2023 1.37 CREATININE (mg/dL) Date Value 08/01/2022 1.4 BUN (mg/dL) Date Value 03/19/2023 20 Anion Gap (mmol/L) Date Value 03/19/2023 8 08/01/2022 13.5 Calcium (mg/dL) Date Value 08/01/2022 9.2 Calcium, Total (mg/dL) Date Value 03/19/2023 9.0 Protein, Total (g/dL) Date Value 03/19/2023 6.8 08/01/2022 6.6 Albumin (g/dL) Date Value 03/19/2023 3.8 08/01/2022 3.9 Bilirubin, Total (mg/dL) Date Value 03/19/2023 0.2 08/01/2022 0.2 Alkaline Phosphatase (U/L) Date Value 03/19/2023 88 08/01/2022 82.2 AST (U/L) Date Value 03/19/2023 21 08/01/2022 22 ALT (U/L) Date Value 03/19/2023 12 08/01/2022 14 WBC Date Value Ref Range Status 03/19/2023 9.74 3.70 - 11.00 k/uL Final RBC Date Value Ref Range Status 03/19/2023 3.76 (L) 4.20 - 6.00 m/uL Final Hemoglobin Date Value Ref Range Status 03/19/2023 13.2 13.0 - 17.0 g/dL Final Hematocrit Date Value Ref Range Status 03/19/2023 39.4 39.0 - 51.0 % Final MCV Date Value Ref Range Status 03/19/2023 104.8 (H) 80.0 - 100.0 fL Final MCH Date Value Ref Range Status 03/19/2023 35.1 (H) 26.0 - 34.0 pg Final MCHC Date Value Ref Range Status 03/19/2023 33.5 30.5 - 36.0 g/dL Final RDW-CV Date Value Ref Range Status 03/19/2023 14.6 11.5 - 15.0 % Final Platelet Count Date Value Ref Range Status 03/19/2023 234 150 - 400 k/uL Final MPV Date Value Ref Range Status 03/19/2023 10.0 9.0 - 12.7 fL Final Abs Neut Date Value Ref Range Status 03/19/2023 6.87 1.45 - 7.50 k/uL Final Lymphocytes % Date Value Ref Range Status 03/19/2023 12.2 % Final Abs Lymph Date Value Ref Range Status 03/19/2023 1.19 1.00 - 4.00 k/uL Final Monocytes % Date Value Ref Range Status 03/19/2023 13.4 % Final Abs Tate Date Value Ref Range Status 03/19/2023 1.31 (H) <0.87 k/uL Final Eosinophils % Date Value Ref Range Status 03/19/2023 3.0 % Final Abs Eosin Date Value Ref Range Status 03/19/2023 0.29 <0.46 k/uL Final Basophils % Date Value Ref Range Status 03/19/2023 0.5 % Final Abs Baso Date Value Ref Range Status 03/19/2023 0.05 <0.11 k/uL Final PATH: BM Biopsy 08/2018: A. Bone marrow, right posterior iliac crest, biopsy, aspirate smear, and peripheral blood smear: - Normocellular bone marrow (30%) with trilineage hematopoiesis and 3% plasma cells, see comment. - Decreased iron stores without ring sideroblasts. B. Bone marrow, right posterior iliac crest, clot section: - Normocellular bone marrow (30%) with trilineage hematopoiesis and 3% plasma cells, see comment. 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 Plasma cells are not increased (3%), confirmed by CD138 stain. In situ hybridization for kappa and lambda light chains appear to be polytypic. The special stain for Congo red performed on the core biopsy and clot section is negative for amyloid deposition. The flow cytometric analysis of the marrow aspirate reveals polytypic plasma cells and no immunophenotypic evidence of an abnormal population of T lymphocytes, B lymphocytes or blasts. Overall, there is no morphologic or immunophenotypic evidence of plasma cell neoplasm. Correlation with clinical findings and cytogenetic/FISH studies is recommended. Probe/Control Range Patient/Interpretation 1p32.3(CDKN2C)-1signal/0-3.6% 0%/negative 1q21.3(CKS1B)-3signals/0-3.7% 0%/negative 3q27(BCL6)-3signals/0-2.2% 0%/negative 2j85-50,5p15.2(FWB0O-O9X85:P9Y309)-3signals/0-0.6% 0%/negative 8q24(MYC)-bap/0-3.0% 0%/negative 11q22.3(ODILON)-3signals/0-0.6% 0%/negative 12p13(ETV6)-1signal/0-4.1% 0.5%/negative 13q14(RB1)-1signal/0-4.2% 0.5%/negative 13q34(LAMP1)-1signal/0-3.0% 0%/negative 17p13.1(TP53)-1signal/0-3.2% 0.5%/negative 21q22(RUNX1)-3signals/0-0.6% 0%/negative 14q32.3-11q13(IGH-CCND1)/0-0.6% 0%/negative IMAGING: PET 05/2021: 1. Mild metabolic activity associated with the posterior left 9th rib lesion and associated soft tissue mass. 2. No metabolic abnormality identified in the previously described osseous abnormalities in the calvarium, left clavicle and spine. No new site of disease identified. CT of the chest and Abdomen and Pelvis 12/2021: 1. No acute intrathoracic abnormality. 2. Left 9th rib lytic lesion has progressed with new lytic lesion in the manubrium. These are likely due to history of multiple myeloma. 3. Large amount of high attenuation fluid/soft tissue in the urinary bladder, concerning for blood products. Underlying lesion would be difficult to exclude. Clinical correlation is recommended. 4. No acute intra-abdominal abnormality. 5. Age-indeterminate fracture of the right L3 transverse process. 6. Diverticulosis without diverticulitis. ECHO 03/2021: Summary Left ventricle is normal in size. Global left ventricular systolic function appears low normal. Calculated EF via Torres's method is 50 %. Trivial tricuspid regurgitation. Trivial pulmonic insufficiency. PET 05/2022: 1. HEAD and NECK: No evidence of focal uptake to suggest FDG avid neoplastic process.. 2. CHEST: No evidence of focal uptake to suggest FDG avid neoplastic process.. 3. ABDOMEN/PELVIS: No evidence of focal uptake to suggest FDG avid neoplastic process.. 4. EXTREMITIES/SKELETON: Expansile lesion in the left medial clavicle head, minimal change since prior study. Assessment and Plan: Missy Salgado is a 83 year old year old male here for follow up. MM- therapy sequences summarized above was started on Darzalex and dex and will continue and followup on myeloma parameters He does not like the dex and will only take it on the days which he gets Darzalex. His myeloma parameters are trending slightly up. His PET 05/2022 was unchanged and no progression. Continue Darzalex. Dex was stopped due to insomnia and follow myeloma parameters, there has been an upward trend and will follow the most recent results. If ongoing upward trend will repeat PET and may need to consider alternative approach. Proceed with darzalex today. Discussed bone resorptive agents and patient states that he is not interested understanding the rational for their use. Bladder tumor post TURBT and bleeding and subsequent arrest and transfer to [place].Off Plavix and Xarelto and stable. He will re-establish with urology in [place] and has completed XRT 01/2023 and follows urology Neuropathy- Stable- Stopped Gabapentin Back pain- Chronic and stable Patient going to [place] in late May and sees [facility] oncology there as well. Thi Valera PA-C CC: MD Allie Mixon MD [facility]* Diagnosis Multiple myeloma not having achieved remission (HCC)- Primary Multiple myeloma, without mention of having achieved remission Stage 3a chronic kidney disease (HCC) documented in [facility] encounter [facility] Miscellaneous Notes* Telephone Encounter - Elo Dan RN - 02/21/2023 12:21 PM EDT Pt notified and verbalizes understanding. Elo Dan RN * Telephone Encounter - David Molina MD - 02/21/2023 11:50 AM EDT sent * Telephone Encounter - Elo Dan RN - 02/20/2023 2:53 PM EDT Pt's spouse states that you mentioned prescribing the pt Flomax at yesterday's visit. Is this correct? If so, he would like a script sent to [facility] in [place]. Thanks, Elo Dan RN documented [facility] History of Present illness Narrative* David Molina MD - 02/19/2023 2:26 PM EDT PATIENT NAME: Missy Vaughan [facility] NO.: [id number] ATTENDING PHYSICIAN: David Molina MD DATE OF SERVICE: February 19, 2023 Some of the elements of this note have been copied from my previous progress note dated 11/27/2022. All the information has been reviewed carefully. Dear Dr. Allie Solares here is an update on a follow up visit on male Missy Salgado at the clinic February 19, 2023 Diagnosis: 1. Multiple Myeloma- FISH- Normal Treatment History: 1. 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 T9 surgical resection 2010 3. 6 cycles of CyBord 2010 4. L Clavicular mass 01/2017 5. 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 L Orbital mass radiation 09/2018 8. VRD 6 cycles- Completed 05/2019- Brian Maintenance- 05/2021- Progression 9. Rib Xray 05/[address] Gunn at [facility] as well.-- Started Darzalex and Dex 07/26/2021. Dex stopped 09/04/2022- Insomnia 11. Established care with me 09/27/2021 HPI: Missy Salgado is a 82 year old year old male here for follow up. He completed radiation to the bladder 2 weeks ago and still tired. He does have lower extremity neuropathy and denies any fevers and or chills. PAST MEDICAL HISTORY Diagnosis Date CAD (coronary artery disease) Hyperlipidemia Hypertension Multiple myeloma (HCC) Myocardial infarction (HCC) Presence of Watchman left atrial appendage closure device Social History Tobacco Use Smoking status: Former Packs/day: 1 Types: Cigarettes Quit date: 07/17/1981 Years since quittin.6 Passive exposure: Never Smokeless tobacco: Never Vaping Use Vaping Use: Never used Substance Use Topics Alcohol use: Yes Alcohol/week: 7.0 standard drinks of alcohol Types: 7 Shots of liquor per week Drug use: Never No family history on file. Past medical, social and family history reviewed without any changes. REVIEW OF SYSTEMS GENERAL: No weight loss, malaise or fevers. No night sweats. HEENT: Negative for headaches, No changes in hearing or vision, no nose bleeds or other nasal problems. RESPIRATORY: Negative for cough, wheezing and shortness of breath CARDIOVASCULAR: Negative for chest pain, leg swelling and palpitations GI: Negative for abdominal discomfort, blood in stools or black stools and change in bowel habits : Negative for dysuria, frequency and incontinence MUSCULOSKELETAL: Negative for joint pain or swelling, back pain, and muscle pain. SKIN: Negative for lesions, rash, and itching. HEMATOLOGY/LYMPHOLOGY Negative for prolonged bleeding, bruising easily, and swollen nodes. NEURO: Negative for numbness or tingling of hands/feet. No weakness. PHYSICAL EXAMINATION: BP 114/77 Pulse 88 Temp (Src) 98 (Temporal) Resp 16 Ht 6' .165 (1.83m) Wt 223 lb 12.8 oz(101.5kg) SpO2 95% BMI 30.21 kg/(m^2). Wt 93.1 kg (205 lb 3.2 oz) BMI 27.7 kg/m2 Last 3 Encounter Wt Readings: Date: Wt: 10/31/2021 93.1 kg (205 lb 3.2 oz) 10/17/2021 92.2 kg (203 lb 3.2 oz) 10/03/2021 91.8 kg (202 lb 4.8 oz) General appearance:ECOG PERFORMANCE STATUS: 1- Restricted in physically strenuous activity. Carries out light duty. Patient in NAD. Skin: Skin color, texture, turgor normal. No rashes or lesions. Eyes: Anicteric sclera. Pupils are equally round and reactive to light. Extraocular movements are intact. Lymph Nodes: No cervical, supraclavicular, axillary or inguinal adenopathy. Oropharynx: Lips, mucosa, and tongue normal. Back: No pain to percussion. Negative SLR test Lungs clear to auscultation, No wheezing or rhonchi Heart: RRR without murmur, gallop, or rubs. Abdomen soft, non-tender. No masses, organomegaly Extremities: No deformities. No edema Neuro: Gait and speech normal. Reflexes normal and symmetric. Muscular strength intact. Sensation grossly intact. Rectal: Deferred : Deferred LABS: Glucose (mg/dL) Date Value 02/19/2023 166 08/01/2022 85 Potassium (mmol/L) Date Value 02/19/2023 4.3 08/01/2022 4.5 Sodium (mmol/L) Date Value 02/19/2023 136 08/01/2022 138 Chloride (mmol/L) Date Value 02/19/2023 102 08/01/2022 104 CO2 (mmol/L) Date Value 02/19/2023 26 08/01/2022 25 Creatinine (mg/dL) Date Value 02/19/2023 1.31 CREATININE (mg/dL) Date Value 08/01/2022 1.4 BUN (mg/dL) Date Value 02/19/2023 24 Anion Gap (mmol/L) Date Value 02/19/2023 8 08/01/2022 13.5 Calcium (mg/dL) Date Value 08/01/2022 9.2 Calcium, Total (mg/dL) Date Value 02/19/2023 8.9 Protein, Total (g/dL) Date Value 02/19/2023 6.5 08/01/2022 6.6 Albumin (g/dL) Date Value 02/19/2023 3.8 08/01/2022 3.9 Bilirubin, Total (mg/dL) Date Value 02/19/2023 0.3 08/01/2022 0.2 Alkaline Phosphatase (U/L) Date Value 02/19/2023 84 08/01/2022 82.2 AST (U/L) Date Value 02/19/2023 17 08/01/2022 22 ALT (U/L) Date Value 02/19/2023 11 08/01/2022 14 WBC Date Value Ref Range Status 02/19/2023 9.56 3.70 - 11.00 k/uL Final RBC Date Value Ref Range Status 02/19/2023 3.86 (L) 4.20 - 6.00 m/uL Final Hemoglobin Date Value Ref Range Status 02/19/2023 13.6 13.0 - 17.0 g/dL Final Hematocrit Date Value Ref Range Status 02/19/2023 40.6 39.0 - 51.0 % Final MCV Date Value Ref Range Status 02/19/2023 105.2 (H) 80.0 - 100.0 fL Final MCH Date Value Ref Range Status 02/19/2023 35.2 (H) 26.0 - 34.0 pg Final MCHC Date Value Ref Range Status 02/19/2023 33.5 30.5 - 36.0 g/dL Final RDW-CV Date Value Ref Range Status 02/19/2023 14.6 11.5 - 15.0 % Final Platelet Count Date Value Ref Range Status 02/19/2023 235 150 - 400 k/uL Final MPV Date Value Ref Range Status 02/19/2023 9.5 9.0 - 12.7 fL Final Abs Neut Date Value Ref Range Status 02/19/2023 6.99 1.45 - 7.50 k/uL Final Lymphocytes % Date Value Ref Range Status 02/19/2023 11.5 % Final Abs Lymph Date Value Ref Range Status 02/19/2023 1.10 1.00 - 4.00 k/uL Final Monocytes % Date Value Ref Range Status 02/19/2023 12.0 % Final Abs Tate Date Value Ref Range Status 02/19/2023 1.15 (H) <0.87 k/uL Final Eosinophils % Date Value Ref Range Status 02/19/2023 2.6 % Final Abs Eosin Date Value Ref Range Status 02/19/2023 0.25 <0.46 k/uL Final Basophils % Date Value Ref Range Status 02/19/2023 0.4 % Final Abs Baso Date Value Ref Range Status 02/19/2023 0.04 <0.11 k/uL Final PATH: BM Biopsy 08/2018: A. Bone marrow, right posterior iliac crest, biopsy, aspirate smear, and peripheral blood smear: - Normocellular bone marrow (30%) with trilineage hematopoiesis and 3% plasma cells, see comment. - Decreased iron stores without ring sideroblasts. B. Bone marrow, right posterior iliac crest, clot section: - Normocellular bone marrow (30%) with trilineage hematopoiesis and 3% plasma cells, see comment. 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 Plasma cells are not increased (3%), confirmed by CD138 stain. In situ hybridization for kappa and lambda light chains appear to be polytypic. The special stain for Congo red performed on the core biopsy and clot section is negative for amyloid deposition. The flow cytometric analysis of the marrow aspirate reveals polytypic plasma cells and no immunophenotypic evidence of an abnormal population of T lymphocytes, B lymphocytes or blasts. Overall, there is no morphologic or immunophenotypic evidence of plasma cell neoplasm. Correlation with clinical findings and cytogenetic/FISH studies is recommended. Probe/Control Range Patient/Interpretation 1p32.3(CDKN2C)-1signal/0-3.6% 0%/negative 1q21.3(CKS1B)-3signals/0-3.7% 0%/negative 3q27(BCL6)-3signals/0-2.2% 0%/negative 5x81-00,5p15.2([id number]:[id number])-3signals/0-0.6% 0%/negative 8q24(MYC)-bap/0-3.0% 0%/negative 11q22.3(ODILON)-3signals/0-0.6% 0%/negative 12p13(ETV6)-1signal/0-4.1% 0.5%/negative 13q14(RB1)-1signal/0-4.2% 0.5%/negative 13q34(LAMP1)-1signal/0-3.0% 0%/negative 17p13.1(TP53)-1signal/0-3.2% 0.5%/negative 21q22(RUNX1)-3signals/0-0.6% 0%/negative 14q32.3-11q13(IGH-CCND1)/0-0.6% 0%/negative IMAGING: PET 05/2021: 1. Mild metabolic activity associated with the posterior left 9th rib lesion and associated soft tissue mass. 2. No metabolic abnormality identified in the previously described osseous abnormalities in the calvarium, left clavicle and spine. No new site of disease identified. CT of the chest and Abdomen and Pelvis 12/2021: 1. No acute intrathoracic abnormality. 2. Left 9th rib lytic lesion has progressed with new lytic lesion in the manubrium. These are likely due to history of multiple myeloma. 3. Large amount of high attenuation fluid/soft tissue in the urinary bladder, concerning for blood products. Underlying lesion would be difficult to exclude. Clinical correlation is recommended. 4. No acute intra-abdominal abnormality. 5. Age-indeterminate fracture of the right L3 transverse process. 6. Diverticulosis without diverticulitis. ECHO 03/2021: Summary Left ventricle is normal in size. Global left ventricular systolic function appears low normal. Calculated EF via Torres's method is 50 %. Trivial tricuspid regurgitation. Trivial pulmonic insufficiency. PET 05/2022: 1. HEAD and NECK: No evidence of focal uptake to suggest FDG avid neoplastic process.. 2. CHEST: No evidence of focal uptake to suggest FDG avid neoplastic process.. 3. ABDOMEN/PELVIS: No evidence of focal uptake to suggest FDG avid neoplastic process.. 4. EXTREMITIES/SKELETON: Expansile lesion in the left medial clavicle head, minimal change since prior study. Assessment and Plan: Missy Salgado is a 82 year old year old male here for follow up. MM- therapy sequences summarized above was started on Darzalex and dex and will continue and followup on myeloma parameters He does not like the dex and will only take it on the days which he gets Darzalex. His myeloma parameters are trending slightly up. His PET 05/2022 was unchanged and no progression. Continue Darzalex. Dex was stopped due to insomnia and follow myeloma parameters, there is an upward trend and will follow the most recent results. If ongoing upward trend will repeat PET and may need to consider alternative approach Discussed bone resorptive agents and patient states that he is not interested understanding the rational for their use. Bladder tumor post TURBT and bleeding and subsequent arrest and transfer to [place].Off Plavix and Xarelto and stable. He will re-establish with urology in [place] and has completed XRT 01/2023 and follows urology Neuropathy- Stable- Stopped Gabapentin Back pain- Chronic Thank you for the kind referral. If there are any questions and or concerns please do not hesitate to contact me at [phone]. David Molina MD Hematology/Medical Oncology [facility] Jennifer Srivastava spent a total of 30 minutes on the date of the service which included preparing to see the patient, [id number] patient care, completing clinical documentation, obtaining and/or reviewing separately obtained history, performing a medically appropriate examination, counseling and educating the pat ient/family/caregiver and ordering medications, tests, or procedures. 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 He was treated with mitomycin bladder instillation and continued active surveillance with urology. He underwent a bladder biopsy 05/26/18 whose pathologic examination suggested low grade papillary urothelial carcinoma, non-invasive. Mild chronic cystitis. TOXICITIES: The following toxicities were assessed as a 2: Fatigue (lethar/malai/astheni) - - Mod (e.g. dec in performance status by 1 ECOG level or 20% Karnofsky or Lansky). The following toxicities were assessed as a 1: Urinary Frequency/Urgency - - Increase in frequency or nocturia up to 2 x normal. Diarrhea w/o colostomy - - None, Dysuria - - None, Radiation Dermatitis - - None, Urinary Retention- - Normal. PAIN ASSESSMENT AND MANAGEMENT: On a pain scale of 0-10 (0=no pain, 10=worst pain), how would you rate your pain? 0=no pain On a pain scale of 0-10 (0=no pain, 10=worst pain), how would you rate your pain? 2 back tolerable NURSING NOTES: present for visit. Urinary frequency and nocturia about the same. Pt has started AZO. Discharge instructions and follow up appt provided. Exam per [facility]. HORMONE THERAPY/CHEMOTHERAPY HISTORY: 2017 He has received 6 cycles of adjuvant therapy with velcade, cytoxan and decadron. RADIATION HISTORY: 2017 Thoracic spine treated from 11/22/10 through 12/08/10, 3600 cGy in 12 fractions over 16 elasped days.Followed by an additional 600 cGy with cone down in 3 fractions ending on 12/13/10. Radaition to the left clavical from 03/05/17- 03/11/17, 2000 cGy in 5 fractions. 2019 Completed treatment to the left sinus and orbit on 10/24/18, 3000 cGy in 10 fractions. 11:21:00 - Radiation History - Marci Granger RN - [facility] Radiation Therapy Patient name: Missy Salgado : 1940 MR#: [id number] Current Date: 02/06/2023 Current Time: 11:21 AM Treatment Summary Course: C2_ LT CLAVICAL Treatment Site: LT CLAVICAL Energy: 6X Dose/Fx (cGy): 400 #Fx: 5 / 5 Dose Correction (cGy): 0 Total Dose (cGy): 2,000 Start Date: 03/05/2017 End Date: 03/11/2017 Elapsed Days: 6 Course: C3 L Sinus-Orbit Treatment Site: L Sinus-Orbit Energy: 6X Dose/Fx (cGy): 300 #Fx: 10 / 10 Dose Correction (cGy): 0 Total Dose (cGy): 3,000 Start Date: 10/13/2018 End Date: 10/24/2018 Elapsed Days: 11 Course: C4- 9th Rib Treatment Site: L 9thPostRib Energy: 18X Dose/Fx (cGy): 400 #Fx: 5 / 5 Dose Correction (cGy): 0 Total Dose (cGy): 2,000 Start Date: 06/02/2021 End Date: 06/08/2021 Elapsed Days: 6 Course: C5 BLADDER VMAT Treatment Site: BLADDER VMAT Energy: 10X Dose/Fx (cGy): 200 #Fx: 25 / 25 Dose Correction (cGy): 0 Total Dose (cGy): 5,000 Start Date: 01/03/2023 End Date: 02/06/2023 Elapsed Days: 34 . [facility] RADIATION SUMMARY: Course: C2_ LT CLAVICAL Treatment Site: LT CLAVICAL Energy: 6X Dose/Fx (cGy): 400 #Fx: 5 / 5 Dose Correction (cGy): 0 Total Dose (cGy): 2,000 Start Date: 03/05/2017 End Date: 03/11/2017 Elapsed Days: 6 Course: C3 L Sinus-Orbit Treatment Site: L Sinus-Orbit Energy: 6X Dose/Fx (cGy): 300 #Fx: 10 / 10 Dose Correction (cGy): 0 Total Dose (cGy): 3,000 Start Date: 10/13/2018 End Date: 10/24/2018 Elapsed Days: 11 Course: C4- 9th Rib Treatment Site: L 9thPostRib Energy: 18X Dose/Fx (cGy): 400 #Fx: 5 / 5 Dose Correction (cGy): 0 Total Dose (cGy): 2,000 Start Date: 06/02/2021 End Date: 06/08/2021 Elapsed Days: 6 Course: C5 BLADDER VMAT Treatment Site: BLADDER VMAT Energy: 10X Dose/Fx (cGy): 200 #Fx: 25 / 25 Dose Correction (cGy): 0 Total Dose (cGy): 5,000 Start Date: 01/03/2023 End Date: 02/06/2023 Elapsed Days: 34 PATIENT BREAKS: Missy Salgado was on treatment break 0 days throughout the treatment course. PROGRESS REPORT: Mr. Salgado suffered urinary symptom side effects from radiotherapy as predicted, though given his overall reasonably poor health status, I was very pleased that he was able to make it through the treatments as well as he did. He was appreciative for all the effort spent on his behalf, as well. PLAN: Missy Salgado was scheduled to return again to our clinic one month after completion of therapy. Missy Salgado will return to our clinic sooner if any questions or concerns develop prior to theone month clinic appointment. I do invite any suggestions regarding the specifics of this pat (morecontent not included)...[facility]06-27-2023 History of Present illness Narrative* Candis Culp APRN.HEALTH TEACHER - 12/25/2022 1:45 PM EDT PATIENT NAME: Missy Salgado CLINIC NO.: [id number] ATTENDING PHYSICIAN: David Molina MD DATE OF SERVICE: December 25, 2022 Some of the elements of this note have been copied from my previous progress note dated 11/27/2022. All the information has been reviewed carefully. Dear Dr. Allie Solares here is an update on a follow up visit on male Missy Salgado at the clinic December 25, 2022. Diagnosis: 1. Multiple Myeloma- FISH- Normal Treatment History: 1. 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 T9 surgical resection 2010 3. 6 cycles of CyBord 2010 4. L Clavicular mass 01/2017 5. 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 L Orbital mass radiation 09/2018 8. VRD 6 cycles- Completed 05/2019- Brian Maintenance- 05/2021- Progression 9. Rib Xray 05/[address] Gunn at [facility] as well.-- Started Darzalex and Dex 07/26/2021. Dex stopped 09/04/2022- Insomnia 11. Established care with ma 09/27/2021 HPI: Missy Salgado is a 82 year old year old male here for follow up and continued treatment. He states that he is moving slow. He denies any new areas of pain. Overall he states that he is tolerating treatment without any significant side effects. Since his last visit he states that he has a recurrenceof his bladder cancer and will be having 4 to 6 weeks of radiation. He will receive his treatment at [facility] in [place]. He denies any blood in his urine. He denies fevers, chills, night sweats and signs/symptoms of infection. No bleeding or abnormal bruising. He wishes to proceed with treatment as planned. PAST MEDICAL HISTORY Diagnosis Date CAD (coronary artery disease) Hyperlipidemia Hypertension Multiple myeloma (HCC) Myocardial infarction (HCC) Presence of Watchman left atrial appendage closure device Social History Tobacco Use Smoking status: Former Packs/day: 1.00 Types: Cigarettes Quit date: 07/17/1981 Years since quittin.4 Passive exposure: Never Smokeless tobacco: Never Vaping Use Vaping Use: Never used Substance Use Topics Alcohol use: Yes Alcohol/week: 7.0 standard drinks Types: 7 Shots of liquor per week Drug use: Never History reviewed. No pertinent family history. Past medical, social and family history reviewed without any changes. REVIEW OF SYSTEMS General: No weight loss, malaise or fevers. No night sweats. HEENT: Negative for headaches. No changes in hearing or vision, no nose bleeds or other nasal problems. Respiratory: Negative for cough, wheezing and shortness of breath. Cardiovascular: Negative for chest pain, leg swelling and palpitations. GI: Negative for abdominal discomfort, blood in stools or black stools and change in bowel habits. : Negative for dysuria, frequency and incontinence. Musculoskeletal: Negative for joint pain or swelling, back pain and muscle pain. Skin: Negative for lesions, rash,and itching. Hematology/Lymphology: Negative for prolonged bleeding, bruising easily and swollen nodes. Neuro: Negative for numbness or tingling of hands/feet. No weakness. Balance issues. PHYSICAL EXAMINATION: BP 135/82 Pulse 90 Temp (Src) 97.1 (Temporal) Resp 18 Wt 220 lb (99.8kg) SpO2 96% General appearance:ECOG PERFORMANCE STATUS: 1- Restricted in physically strenuous activity. Carries out light duty. Exam limited to gross visualization where appropriate. Gen.: This is an age-appropriate patient in no acute distress. Head: Appears atraumatic with no visible lesions. Eyes: Pupils equally round and reactive to light, extraocular muscles are intact. Neck: Supple. Respiratory: Appears to be respiring comfortably. Neurologic: Nonfocal to gross visualization. Alert and oriented 3. Psychiatric: No evidence of inappropriate anxiety or depression. Skin: Visible areas of skin without rash, lesions, wounds or petechiae. LABS: Hemoglobin (g/dL) Date Value 12/25/2022 14.1 08/01/2022 12.8 Hematocrit (%) Date Value 12/25/2022 42.5 08/01/2022 39.2 WBC Date Value 12/25/2022 11.80 k/uL 08/01/2022 9.2 10*3/uL Platelet Count Date Value 12/25/2022 309 k/uL 08/01/2022 304 10*3/uL PATH: BM Biopsy 08/2018: A. Bone marrow, right posterior iliac crest, biopsy, aspirate smear, and peripheral blood smear: - Normocellular bone marrow (30%) with trilineage hematopoiesis and 3% plasma cells, see comment. - Decreased iron stores without ring sideroblasts. B. Bone marrow, right posterior iliac crest, clot section: - Normocellular bone marrow (30%) with trilineage hematopoiesis and 3% plasma cells, see comment. 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 Plasma cells are not increased (3%), confirmed by CD138 stain. In situ hybridization for kappa and lambda light chains appear to be polytypic. The special stain for Congo red performed on the core biopsy and clot section is negative for amyloid deposition. The flow cytometric analysis of the marrow aspirate reveals polytypic plasma cells and no immunophenotypic evidence of an abnormal population of T lymphocytes, B lymphocytes or blasts. Overall, there is no morphologic or immunophenotypic evidence of plasma cell neoplasm. Correlation with clinical findings and cytogenetic/FISH studies is recommended. Probe/Control Range Patient/Interpretation 1p32.3(CDKN2C)-1signal/0-3.6% 0%/negative 1q21.3(CKS1B)-3signals/0-3.7% 0%/negative 3q27(BCL6)-3signals/0-2.2% 0%/negative 8b06-56,5p15.2([id number])-3signals/0-0.6% 0%/negative 8q24(MYC)-bap/0-3.0% 0%/negative 11q22.3(ODILON)-3signals/0-0.6% 0%/negative 12p13(ETV6)-1signal/0-4.1% 0.5%/negative 13q14(RB1)-1signal/0-4.2% 0.5%/negative 13q34(LAMP1)-1signal/0-3.0% 0%/negative 17p13.1(TP53)-1signal/0-3.2% 0.5%/negative 21q22(RUNX1)-3signals/0-0.6% 0%/negative 14q32.3-11q13(IGH-CCND1)/0-0.6% 0%/negative IMAGING: PET 05/2021: 1. Mild metabolic activity associated with the posterior left 9th rib lesion and associated soft tissue mass. 2. No metabolic abnormality identified in the previously described osseous abnormalities in the calvarium, left clavicle and spine. No new site of disease identified. CT of the chest and Abdomen and Pelvis 12/2021: 1. No acute intrathoracic abnormality. 2. Left 9th rib lytic lesion has progressed with new lytic lesion in the manubrium. These are likely due to history of multiple myeloma. 3. Large amount of high attenuation fluid/soft tissue in the urinary bladder, concerning for blood products. Underlying lesion would be difficult to exclude. Clinical correlation is recommended. 4. No acute intra-abdominal abnormality. 5. Age-indeterminate fracture of the right L3 transverse process. 6. Diverticulosis without diverticulitis. ECHO 03/2021: Summary Left ventricle is normal in size. Global left ventricular systolic function appears low normal. Calculated EF via Torres's method is 50 %. Trivial tricuspid regurgitation. Trivial pulmonic insufficiency. PET 05/2022: 1. HEAD and NECK: No evidence of focal uptake to suggest FDG avid neoplastic process.. 2. CHEST: No evidence of focal uptake to suggest FDG avid neoplastic process.. 3. ABDOMEN/PELVIS: No evidence of focal uptake to suggest FDG avid neoplastic process.. 4. EXTREMITIES/SKELETON: Expansile lesion in the left medial clavicle head, minimal change since prior study. Assessment and Plan: Missy Salgado is a 82 year old year old male here for follow up and continued treatment. MM- therapy sequences summarized above was started on Darzalex and dex and will continue and followup on myeloma parameters He does not like the dex and will only take it on the days which he gets Darzalex. His myeloma parameters are trending slightly up. His PET 05/2022 was unchanged and no progression. Continue Darzalex. Dex was stopped due to insomnia and follow myeloma parameters, there is an upward trend and will follow the most recent results. If ongoing upward trend will repeat PET and may need to consider alternative approach. Discussed bone resorptive agents and patient states that he is not interested understanding the rational for their use. Bladder tumor post TURBT and bleeding and subsequent arrest and transfer to [place]. Off Plavix and Xarelto and stable. Neuropathy- Stable- Stopped Gabapentin. Back pain- Chronic. We will proceed with treatment today. Patient we will see him back in 4 weeks for follow-up and labs. Thank you for the kind referral. If there are any questions and or concerns please do not hesitate to contact David Molina MD at [phone]. Candis Culp APRN.HEALTH TEACHER Hematology/Medical Oncology [facility] CC: MD Allie Mixon MD I spent a total of 30 minutes on the date of the service which included preparing to see the patient, [id number] patient care, completing clinical documentation, obtaining and/or reviewing separately obtained history, performing a medically appropriate examination, counseling and educating the pat ient/family/caregiver, ordering medications, tests, or procedures, independently interpreting results (not separately reported), and communicating results to the patient/family/caregiver. documented in this encounterSouth[facility]-30-2023 History of Present illness Narrative* David Molina MD - 11/27/2022 2:26 PM EDT PATIENT NAME: Missy Salgado CLINIC NO.: [id number] ATTENDING PHYSICIAN: David Molina MD DATE OF SERVICE: November 27, 2022 Some of the elements of this note have been copied from my previous progress note dated 10/30/2022. All the information has been reviewed carefully. Dear Dr. Allie Solares here is an update on a follow up visit on male Missy Salgado at the clinic November 27, 2022 Diagnosis: 1. Multiple Myeloma- FISH- Normal Treatment History: 1. 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 T9 surgical resection 2010 3. 6 cycles of CyBord 2010 4. L Clavicular mass 01/2017 5. 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 L Orbital mass radiation 09/2018 8. VRD 6 cycles- Completed 05/2019- Brian Maintenance- 05/2021- Progression 9. Rib Xray 05/[address] Gunn at [facility] as well.-- Started Darzalex and Dex 07/26/2021. Dex stopped 09/04/2022- Insomnia 11. Established care with ma 09/27/2021 HPI: Missy Salgado is a 82 year old year old male here for follow up. Chronic back pain stable and just tired as he had a very busy week with family PAST MEDICAL HISTORY Diagnosis Date CAD (coronary artery disease) Hyperlipidemia Hypertension Multiple myeloma (HCC) Myocardial infarction (HCC) Presence of Watchman left atrial appendage closure device Social History Tobacco Use Smoking status: Former Packs/day: 1.00 Types: Cigarettes Quit date: 07/17/1981 Years since quittin.3 Passive exposure: Never Smokeless tobacco: Never Vaping Use Vaping Use: Never used Substance Use Topics Alcohol use: Yes Alcohol/week: 7.0 standard drinks Types: 7 Shots of liquor per week Drug use: Never No family history on file. Past medical, social and family history reviewed without any changes. REVIEW OF SYSTEMS GENERAL: No weight loss, malaise or fevers. No night sweats. HEENT: Negative for headaches, No changes in hearing or vision, no nose bleeds or other nasal problems. RESPIRATORY: Negative for cough, wheezing and shortness of breath CARDIOVASCULAR: Negative for chest pain, leg swelling and palpitations GI: Negative for abdominal discomfort, blood in stools or black stools and change in bowel habits : Negative for dysuria, frequency and incontinence MUSCULOSKELETAL: Negative for joint pain or swelling, back pain, and muscle pain. SKIN: Negative for lesions, rash, and itching. HEMATOLOGY/LYMPHOLOGY Negative for prolonged bleeding, bruising easily, and swollen nodes. NEURO: Negative for numbness or tingling of hands/feet. No weakness. PHYSICAL EXAMINATION: BP 116/69 Pulse 84 Temp (Src) 97.6 (Temporal) Resp 16 Ht 6' .165 (1.83m) Wt 215 lb (97.5kg) SpO2 96% BMI 29.03 kg/(m^2). Wt 93.1 kg (205 lb 3.2 oz) BMI 27.7 kg/m2 Last 3 Encounter Wt Readings: Date: Wt: 10/31/2021 93.1 kg (205 lb 3.2 oz) 10/17/2021 92.2 kg (203 lb 3.2 oz) 10/03/2021 91.8 kg (202 lb 4.8 oz) General appearance:ECOG PERFORMANCE STATUS: 1- Restricted in physically strenuous activity. Carries out light duty. Patient in NAD. Skin: Skin color, texture, turgor normal. No rashes or lesions. Eyes: Anicteric sclera. Pupils are equally round and reactive to light. Extraocular movements are intact. Lymph Nodes: No cervical, supraclavicular, axillary or inguinal adenopathy. Oropharynx: Lips, mucosa, and tongue normal. Back: No pain to percussion. Negative SLR test Lungs clear to auscultation, No wheezing or rhonchi Heart: RRR without murmur, gallop, or rubs. Abdomen soft, non-tender. No masses, organomegaly Extremities: No deformities. No edema Neuro: Gait and speech normal. Reflexes normal and symmetric. Muscular strength intact. Sensation grossly intact. Rectal: Deferred : Deferred LABS: Glucose (mg/dL) Date Value 10/30/2022 113 08/01/2022 85 Potassium (mmol/L) Date Value 10/30/2022 4.0 08/01/2022 4.5 Sodium (mmol/L) Date Value 10/30/2022 139 08/01/2022 138 Chloride (mmol/L) Date Value 10/30/2022 101 08/01/2022 104 CO2 (mmol/L) Date Value 10/30/2022 27 08/01/2022 25 Creatinine (mg/dL) Date Value 10/30/2022 1.36 CREATININE (mg/dL) Date Value 08/01/2022 1.4 BUN (mg/dL) Date Value 10/30/2022 21 Anion Gap (mmol/L) Date Value 10/30/2022 11 08/01/2022 13.5 Calcium (mg/dL) Date Value 08/01/2022 9.2 Calcium, Total (mg/dL) Date Value 10/30/2022 9.8 Protein, Total (g/dL) Date Value 10/30/2022 7.0 10/30/2022 6.3 08/01/2022 6.6 Albumin (g/dL) Date Value 10/30/2022 3.9 08/01/2022 3.9 Bilirubin, Total (mg/dL) Date Value 10/30/2022 0.4 08/01/2022 0.2 Alkaline Phosphatase (U/L) Date Value 10/30/2022 85 08/01/2022 82.2 AST (U/L) Date Value 10/30/2022 20 08/01/2022 22 ALT (U/L) Date Value 10/30/2022 14 08/01/2022 14 WBC Date Value Ref Range Status 11/27/2022 10.49 3.70 - 11.00 k/uL Final RBC Date Value Ref Range Status 11/27/2022 4.12 (L) 4.20 - 6.00 m/uL Final Hemoglobin Date Value Ref Range Status 11/27/2022 13.9 13.0 - 17.0 g/dL Final Hematocrit Date Value Ref Range Status 11/27/2022 42.5 39.0 - 51.0 % Final MCV Date Value Ref Range Status 11/27/2022 103.2 (H) 80.0 - 100.0 fL Final MCH Date Value Ref Range Status 11/27/2022 33.7 26.0 - 34.0 pg Final MCHC Date Value Ref Range Status 11/27/2022 32.7 30.5 - 36.0 g/dL Final RDW-CV Date Value Ref Range Status 11/27/2022 14.4 11.5 - 15.0 % Final Platelet Count Date Value Ref Range Status 11/27/2022 293 150 - 400 k/uL Final MPV Date Value Ref Range Status 11/27/2022 9.9 9.0 - 12.7 fL Final Abs Neut Date Value Ref Range Status 11/27/2022 7.10 1.45 - 7.50 k/uL Final Lymphocytes % Date Value Ref Range Status 11/27/2022 17.5 % Final Abs Lymph Date Value Ref Range Status 11/27/2022 1.84 1.00 - 4.00 k/uL Final Monocytes % Date Value Ref Range Status 11/27/2022 12.1 % Final Abs Tate Date Value Ref Range Status 11/27/2022 1.27 (H) <0.87 k/uL Final Eosinophils % Date Value Ref Range Status 11/27/2022 1.8 % Final Abs Eosin Date Value Ref Range Status 11/27/2022 0.19 <0.46 k/uL Final Basophils % Date Value Ref Range Status 11/27/2022 0.6 % Final Abs Baso Date Value Ref Range Status 11/27/2022 0.06 <0.11 k/uL Final PATH: BM Biopsy 08/2018: A. Bone marrow, right posterior iliac crest, biopsy, aspirate smear, and peripheral blood smear: - Normocellular bone marrow (30%) with trilineage hematopoiesis and 3% plasma cells, see comment. - Decreased iron stores without ring sideroblasts. B. Bone marrow, right posterior iliac crest, clot section: - Normocellular bone marrow (30%) with trilineage hematopoiesis and 3% plasma cells, see comment. 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 Plasma cells are not increased (3%), confirmed by CD138 stain. In situ hybridization for kappa and lambda light chains appear to be polytypic. The special stain for Congo red performed on the core biopsy and clot section is negative for amyloid deposition. The flow cytometric analysis of the marrow aspirate reveals polytypic plasma cells and no immunophenotypic evidence of an abnormal population of T lymphocytes, B lymphocytes or blasts. Overall, there is no morphologic or immunophenotypic evidence of plasma cell neoplasm. Correlation with clinical findings and cytogenetic/FISH studies is recommended. Probe/Control Range Patient/Interpretation 1p32.3(CDKN2C)-1signal/0-3.6% 0%/negative 1q21.3(CKS1B)-3signals/0-3.7% 0%/negative 3q27(BCL6)-3signals/0-2.2% 0%/negative 4x35-50,5p15.2(AGN4D-E7D97:I4F609)-3signals/0-0.6% 0%/negative 8q24(MYC)-bap/0-3.0% 0%/negative 11q22.3(ODILON)-3signals/0-0.6% 0%/negative 12p13(ETV6)-1signal/0-4.1% 0.5%/negative 13q14(RB1)-1signal/0-4.2% 0.5%/negative 13q34(LAMP1)-1signal/0-3.0% 0%/negative 17p13.1(TP53)-1signal/0-3.2% 0.5%/negative 21q22(RUNX1)-3signals/0-0.6% 0%/negative 14q32.3-11q13(IGH-CCND1)/0-0.6% 0%/negative IMAGING: PET 05/2021: 1. Mild metabolic activity associated with the posterior left 9th rib lesion and associated soft tissue mass. 2. No metabolic abnormality identified in the previously described osseous abnormalities in the calvarium, left clavicle and spine. No new site of disease identified. CT of the chest and Abdomen and Pelvis 12/2021: 1. No acute intrathoracic abnormality. 2. Left 9th rib lytic lesion has progressed with new lytic lesion in the manubrium. These are likely due to history of multiple myeloma. 3. Large amount of high attenuation fluid/soft tissue in the urinary bladder, concerning for blood products. Underlying lesion would be difficult to exclude. Clinical correlation is recommended. 4. No acute intra-abdominal abnormality. 5. Age-indeterminate fracture of the right L3 transverse process. 6. Diverticulosis without diverticulitis. ECHO 03/2021: Summary Left ventricle is normal in size. Global left ventricular systolic function appears low normal. Calculated EF via Torres's method is 50 %. Trivial tricuspid regurgitation. Trivial pulmonic insufficiency. PET 05/2022: 1. HEAD and NECK: No evidence of focal uptake to suggest FDG avid neoplastic process.. 2. CHEST: No evidence of focal uptake to suggest FDG avid neoplastic process.. 3. ABDOMEN/PELVIS: No evidence of focal uptake to suggest FDG avid neoplastic process.. 4. EXTREMITIES/SKELETON: Expansile lesion in the left medial clavicle head, minimal change since prior study. Assessment and Plan: Missy Salgado is a 82 year old year old male here for follow up. MM- therapy sequences summarized above was started on Darzalex and dex and will continue and followup on myeloma parameters He does not like the dex and will only take it on the days which he gets Darzalex. His myeloma parameters are trending slightly up. His PET 05/2022 was unchanged and no progression. Continue Darzalex. Dex was stopped due to insomnia and follow myeloma parameters, there is an upward trend and will follow the most recent results. If ongoing upward trend will repeat PET and may need to consider alternative approach Discussed bone resorptive agents and patient states that he is not interested understanding the rational for their use. Bladder tumor post TURBT and bleeding and subsequent arrest and transfer to [place].Off Plavix and Xarelto and stable. He will re-establish with urology in [place] Neuropathy- Stable- Stopped Gabapentin Back pain- Chronic Thank you for the kind referral. If there are any questions and or concerns please do not hesitate to contact me at [phone]. David Molina MD Hematology/Medical Oncology [facility] Jennifer Srivastava spent a total of 30 minutes on the date of the service which included preparing to see the patient, [id number] patient care, completing clinical documentation, obtaining and/or reviewing separately obtained history, performing a medically appropriate examination, counseling and educating the pat ient/family/caregiver and ordering medications, tests, or procedures. CC: MD Allie Mixon MD documented in this encounterSouth[facility]05-04-2023 Miscellaneous Notes* Telephone Encounter - Elo Dan RN - 11/01/2022 9:21 AM EDT Pt voices questions pertaining her his tramadol prescription. Questions discussed w/ pt and answered. Denies any other questions at this time. Elo Dan RN documented in this encounterSouth[facility]04-04-2023 History of Present illness Narrative* Thi Valera PA-C - 10/02/2022 2:00 PM EDT PATIENT NAME: Missy Salgado [facility] NO.: [id number] ATTENDING PHYSICIAN: David Molina MD DATE OF SERVICE: October 02, 2022 (Elements copied from Dr. Molina's note dated September 04, 2022, have been reviewed and updated whereappropriate, and all reflect current assessment and medical decision making during today's encounter, October 02, 2022) CC: Follow up and treatment Diagnosis: 1. Multiple Myeloma- FISH- Normal Treatment History: 1. 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 T9 surgical resection 2010 3. 6 cycles of CyBord 2010 4. L Clavicular mass 01/2017 5. 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 L Orbital mass radiation 09/2018 8. VRD 6 cycles- Completed 05/2019- Brian Maintenance- 05/2021- Progression 9. Rib Xray 05/[address] Gunn at [facility] as well.-- Started Darzalex and Dex 07/26/2021. Dex stopped 09/04/2022- Insomnia 11. Established care with me 09/27/2021 HPI: Mr. Salgado returns for follow up. Neuropathy in feet might be getting worse. Feels like he loses hisbalance. Waiting to see neurology. Had shingles shot yesterday and feels fatigued and some achiness. He is eating and drinking well. He is having normal bowel movements. No fevers, chills, nausea or vomiting. No new pain. He does have increased fatigue PAST MEDICAL HISTORY Diagnosis Date CAD (coronary artery disease) Hyperlipidemia Hypertension Multiple myeloma (HCC) Myocardial infarction (HCC) Presence of Watchman left atrial appendage closure device Social History Tobacco Use Smoking status: Former Packs/day: 1.00 Types: Cigarettes Quit date: 07/17/1981 Years since quittin.2 Passive exposure: Never Smokeless tobacco: Never Vaping Use Vaping Use: Never used Substance Use Topics Alcohol use: Yes Alcohol/week: 7.0 standard drinks Types: 7 Shots of liquor per week Drug use: Never No family history on file. Past medical, social and family history reviewed without any changes. REVIEW OF SYSTEMS GENERAL: No weight loss, malaise or fevers. No night sweats. HEENT: Negative for headaches, No changes in hearing or vision, no nose bleeds or other nasal problems. RESPIRATORY: Negative for cough, wheezing and shortness of breath CARDIOVASCULAR: Negative for chest pain, leg swelling and palpitations GI: Negative for abdominal discomfort, blood in stools or black stools and change in bowel habits : Negative for dysuria, frequency and incontinence MUSCULOSKELETAL: Negative for joint pain or swelling, back pain, and muscle pain. SKIN: Negative for lesions, rash, and itching. HEMATOLOGY/LYMPHOLOGY Negative for prolonged bleeding, bruising easily, and swollen nodes. NEURO: Negative for numbness or tingling of hands/feet. No weakness. PHYSICAL EXAMINATION: BP 132/78 Pulse 89 Temp (Src) 97.4 (Temporal) Resp 16 Ht 6' .165 (1.83m) Wt 219 lb 9.6 oz (99.6kg) SpO2 96% BMI 29.65 kg/(m^2). ECOG PERFORMANCE STATUS: 1- Restricted in physically strenuous activity. Carries out light duty. PHYSICAL EXAMINATION General: Alert and oriented, no distress, pleasant and cooperative. Heart: Regular, normal S1 and S2, no murmurs, rubs, or gallops Lungs: Clear to auscultation bilaterally Abdomen: Benign Extremities: Feet/ankles without edema, posterior tibial pulses full and symmetrical LABS: Glucose (mg/dL) Date Value 10/02/2022 113 08/01/2022 85 Potassium (mmol/L) Date Value 10/02/2022 4.4 08/01/2022 4.5 Sodium (mmol/L) Date Value 10/02/2022 138 08/01/2022 138 Chloride (mmol/L) Date Value 10/02/2022 104 08/01/2022 104 CO2 (mmol/L) Date Value 10/02/2022 26 08/01/2022 25 Creatinine (mg/dL) Date Value 10/02/2022 1.45 BUN (mg/dL) Date Value 10/02/2022 22 Anion Gap (mmol/L) Date Value 10/02/2022 8 08/01/2022 13.5 Calcium (mg/dL) Date Value 08/01/2022 9.2 Calcium, Total (mg/dL) Date Value 10/02/2022 9.1 Protein, Total (g/dL) Date Value 10/02/2022 6.6 08/01/2022 6.6 Albumin (g/dL) Date Value 10/02/2022 3.7 08/01/2022 3.9 Bilirubin, Total (mg/dL) Date Value 10/02/2022 0.3 08/01/2022 0.2 Alkaline Phosphatase (U/L) Date Value 10/02/2022 82 08/01/2022 82.2 AST (U/L) Date Value 10/02/2022 19 08/01/2022 22 ALT (U/L) Date Value 10/02/2022 13 08/01/2022 14 WBC Date Value Ref Range Status 10/02/2022 12.62 (H) 3.70 - 11.00 k/uL Final RBC Date Value Ref Range Status 10/02/2022 4.01 (L) 4.20 - 6.00 m/uL Final Hemoglobin Date Value Ref Range Status 10/02/2022 13.3 13.0 - 17.0 g/dL Final Hematocrit Date Value Ref Range Status 10/02/2022 40.6 39.0 - 51.0 % Final MCV Date Value Ref Range Status 10/02/2022 101.2 (H) 80.0 - 100.0 fL Final MCH Date Value Ref Range Status 10/02/2022 33.2 26.0 - 34.0 pg Final MCHC Date Value Ref Range Status 10/02/2022 32.8 30.5 - 36.0 g/dL Final RDW-CV Date Value Ref Range Status 10/02/2022 16.1 (H) 11.5 - 15.0 % Final Platelet Count Date Value Ref Range Status 10/02/2022 230 150 - 400 k/uL Final MPV Date Value Ref Range Status 10/02/2022 9.8 9.0 - 12.7 fL Final Abs Neut Date Value Ref Range Status 10/02/2022 8.80 (H) 1.45 - 7.50 k/uL Final Lymphocytes % Date Value Ref Range Status 10/02/2022 14.5 % Final Abs Lymph Date Value Ref Range Status 10/02/2022 1.83 1.00 - 4.00 k/uL Final Monocytes % Date Value Ref Range Status 10/02/2022 13.2 % Final Abs Tate Date Value Ref Range Status 10/02/2022 1.67 (H) <0.87 k/uL Final Eosinophils % Date Value Ref Range Status 10/02/2022 1.7 % Final Abs Eosin Date Value Ref Range Status 10/02/2022 0.21 <0.46 k/uL Final Basophils % Date Value Ref Range Status 10/02/2022 0.5 % Final Abs Baso Date Value Ref Range Status 10/02/2022 0.06 <0.11 k/uL Final PATH: BM Biopsy 08/2018: A. Bone marrow, right posterior iliac crest, biopsy, aspirate smear, and peripheral blood smear: - Normocellular bone marrow (30%) with trilineage hematopoiesis and 3% plasma cells, see comment. - Decreased iron stores without ring sideroblasts. B. Bone marrow, right posterior iliac crest, clot section: - Normocellular bone marrow (30%) with trilineage hematopoiesis and 3% plasma cells, see comment. 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 Plasma cells are not increased (3%), confirmed by CD138 stain. In situ hybridization for kappa and lambda light chains appear to be polytypic. The special stain for Congo red performed on the core biopsy and clot section is negative for amyloid deposition. The flow cytometric analysis of the marrow aspirate reveals polytypic plasma cells and no immunophenotypic evidence of an abnormal population of T lymphocytes, B lymphocytes or blasts. Overall, there is no morphologic or immunophenotypic evidence of plasma cell neoplasm. Correlation with clinical findings and cytogenetic/FISH studies is recommended. Probe/Control Range Patient/Interpretation 1p32.3(CDKN2C)-1signal/0-3.6% 0%/negative 1q21.3(CKS1B)-3signals/0-3.7% 0%/negative 3q27(BCL6)-3signals/0-2.2% 0%/negative 6j02-88,5p15.2(EBQ3X-T5L07:L1E289)-3signals/0-0.6% 0%/negative 8q24(MYC)-bap/0-3.0% 0%/negative 11q22.3(ODILON)-3signals/0-0.6% 0%/negative 12p13(ETV6)-1signal/0-4.1% 0.5%/negative 13q14(RB1)-1signal/0-4.2% 0.5%/negative 13q34(LAMP1)-1signal/0-3.0% 0%/negative 17p13.1(TP53)-1signal/0-3.2% 0.5%/negative 21q22(RUNX1)-3signals/0-0.6% 0%/negative 14q32.3-11q13(IGH-CCND1)/0-0.6% 0%/negative IMAGING: PET 05/2021: 1. Mild metabolic activity associated with the posterior left 9th rib lesion and associated soft tissue mass. 2. No metabolic abnormality identified in the previously described osseous abnormalities in the calvarium, left clavicle and spine. No new site of disease identified. CT of the chest and Abdomen and Pelvis 12/2021: 1. No acute intrathoracic abnormality. 2. Left 9th rib lytic lesion has progressed with new lytic lesion in the manubrium. These are likely due to history of multiple myeloma. 3. Large amount of high attenuation fluid/soft tissue in the urinary bladder, concerning for blood products. Underlying lesion would be difficult to exclude. Clinical correlation is recommended. 4. No acute intra-abdominal abnormality. 5. Age-indeterminate fracture of the right L3 transverse process. 6. Diverticulosis without diverticulitis. ECHO 03/2021: Summary Left ventricle is normal in size. Global left ventricular systolic function appears low normal. Calculated EF via Torres's method is 50 %. Trivial tricuspid regurgitation. Trivial pulmonic insufficiency. PET 05/2022: 1. HEAD and NECK: No evidence of focal uptake to suggest FDG avid neoplastic process.. 2. CHEST: No evidence of focal uptake to suggest FDG avid neoplastic process.. 3. ABDOMEN/PELVIS: No evidence of focal uptake to suggest FDG avid neoplastic process.. 4. EXTREMITIES/SKELETON: Expansile lesion in the left medial clavicle head, minimal change since prior study. Assessment and Plan: Missy Salgado is a 82 year old year old male here for follow up. MM- therapy sequences summarized above was started on Darzalex and dex and will continue and followup on myeloma parameters He does not like the dex and will only take it on the days which he gets Darzalex. His myeloma parameters are stable. His PET 05/2022 was unchanged and no progression. Resumetherapy in [place]. Resumed Darzalex here in August 2022 and dex was stopped due to insomnia. Mild elevation of myeloma parameters. Will continue to monitor monthly. Discussed bone resorptive agents and patient states that he is not interested understanding the rational for their use. Bladder tumor post TURBT and bleeding and subsequent arrest and transfer to [place].Off Plavix and Xarelto and stable. He will re-establish with urology in [place] Neuropathy- Stable- Stopped Gabapentin, scheduled to see neurology Thi Valera PA-C CC: MD Allie Mixon MD documented in this encounterSouthwest [facility] Center03-24-2023 Miscellaneous Notes* Telephone Encounter - Kanika Aquino RN - 09/21/2022 2:59 PM EDT Images from the original note were not included. David Molina MD You 3 hours ago (11:24 AM) yes Pt's notified Kanika Aquino RN * Telephone Encounter - Kanika Aquino RN - 09/20/2022 10:59 AM EDT Pt's calls asking if it's ok for pt to get shingles vaccine? Please advise Kanika Aquino RN documented in this encounterSouthwest [facility] Center03-17-2023 Miscellaneous Notes* Telephone Encounter - Bre Snyder [facility] - 09/14/2022 8:11 AM EDT Records faxed to [facility] @ [phone]. * Telephone Encounter - Geni Crane - 09/13/2022 4:05 PM EDT Maisha: When order is signed, Can you please send that and information to this office? Patient info printed. Hermilo: Can you follow up on this? Thanks! Geni Crane * Telephone Encounter - Kanika Aquino RN - 09/13/2022 3:49 PM EDT Pt/ call stating when pt was here on the , they discussed with Dr oMlina that pt is havingvertigo and Dr Molina was going to place orders for pt to be referred for this. has a phone number of Levy Tompkins in [place] who specializes in this. They would like an appointment set up with him if possible. ROBERTA: Please sign pending order if you agree PSS: please schedule referral. Thanks Kanika Aquino RN documented in this encounterSouth[facility] Center03-07-2023 History of Present illness Narrative* David Molina MD - 09/04/2022 1:49 PM EST PATIENT NAME: Missy Salgado CLINIC NO.: [id number] ATTENDING PHYSICIAN: David Molina MD DATE OF SERVICE: September 04, 2022 Some of the elements of this note have been copied from my previous progress note dated 05/22/2022.All the information has been reviewed carefully. Dear Dr. Allie Solares here is an update on a follow up visit on male Missy Salgado at the clinic September 04, 2022 Diagnosis: 1. Multiple Myeloma- FISH- Normal Treatment History: 1. 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 T9 surgical resection 2010 3. 6 cycles of CyBord 2010 4. L Clavicular mass 01/2017 5. 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 L Orbital mass radiation 09/2018 8. VRD 6 cycles- Completed 05/2019- Brian Maintenance- 05/2021- Progression 9. Rib Xray 05/[address] Gunn at [facility] as well.-- Started Darzalex and Dex 07/26/2021. Dex stopped 09/04/2022- Insomnia 11. Established care with ma 09/27/2021 HPI: Missy Salgado is a 82 year old year old male here for follow up. Had a good stay in [place] and denies any new complaints PAST MEDICAL HISTORY Diagnosis Date CAD (coronary artery disease) Hyperlipidemia Hypertension Multiple myeloma (HCC) Myocardial infarction (HCC) Presence of Watchman left atrial appendage closure device Social History Tobacco Use Smoking status: Former Packs/day: 1.00 Types: Cigarettes Quit date: 07/17/1981 Years since quittin.1 Passive exposure: Never Smokeless tobacco: Never Vaping Use Vaping Use: Never used Substance Use Topics Alcohol use: Yes Alcohol/week: 7.0 standard drinks Types: 7 Shots of liquor per week Drug use: Never No family history on file. Past medical, social and family history reviewed without any changes. REVIEW OF SYSTEMS GENERAL: No weight loss, malaise or fevers. No night sweats. HEENT: Negative for headaches, No changes in hearing or vision, no nose bleeds or other nasal problems. RESPIRATORY: Negative for cough, wheezing and shortness of breath CARDIOVASCULAR: Negative for chest pain, leg swelling and palpitations GI: Negative for abdominal discomfort, blood in stools or black stools and change in bowel habits : Negative for dysuria, frequency and incontinence MUSCULOSKELETAL: Negative for joint pain or swelling, back pain, and muscle pain. SKIN: Negative for lesions, rash, and itching. HEMATOLOGY/LYMPHOLOGY Negative for prolonged bleeding, bruising easily, and swollen nodes. NEURO: Negative for numbness or tingling of hands/feet. No weakness. PHYSICAL EXAMINATION: BP 109/77 Pulse 89 Temp (Src) 97.2 (Temporal) Resp 20 Ht 6' .165 (1.83m) Wt 215 lb 12.8 oz (97.9kg) SpO2 96% BMI 29.13 kg/(m^2). Wt 93.1 kg (205 lb 3.2 oz) BMI 27.7 kg/m2 Last 3 Encounter Wt Readings: Date: Wt: 10/31/2021 93.1 kg (205 lb 3.2 oz) 10/17/2021 92.2 kg (203 lb 3.2 oz) 10/03/2021 91.8 kg (202 lb 4.8 oz) General appearance:ECOG PERFORMANCE STATUS: 1- Restricted in physically strenuous activity. Carries out light duty. Patient in NAD. Skin: Skin color, texture, turgor normal. No rashes or lesions. Eyes: Anicteric sclera. Pupils are equally round and reactive to light. Extraocular movements are intact. Lymph Nodes: No cervical, supraclavicular, axillary or inguinal adenopathy. Oropharynx: Lips, mucosa, and tongue normal. Back: No pain to percussion. Negative SLR test Lungs clear to auscultation, No wheezing or rhonchi Heart: RRR without murmur, gallop, or rubs. Abdomen soft, non-tender. No masses, organomegaly Extremities: No deformities. No edema Neuro: Gait and speech normal. Reflexes normal and symmetric. Muscular strength intact. Sensation grossly intact. Rectal: Deferred : Deferred LABS: Glucose (mg/dL) Date Value 05/22/2022 149 Potassium (mmol/L) Date Value 05/22/2022 4.3 Sodium (mmol/L) Date Value 05/22/2022 139 Chloride (mmol/L) Date Value 05/22/2022 103 CO2 (mmol/L) Date Value 05/22/2022 29 Creatinine (mg/dL) Date Value 05/22/2022 1.33 BUN (mg/dL) Date Value 05/22/2022 21 Anion Gap (mmol/L) Date Value 05/22/2022 7 Calcium, Total (mg/dL) Date Value 05/22/2022 10.0 Protein, Total (g/dL) Date Value 05/22/2022 6.8 05/22/2022 6.2 Albumin (g/dL) Date Value 05/22/2022 3.6 Bilirubin, Total (mg/dL) Date Value 05/22/2022 0.2 Alkaline Phosphatase (U/L) Date Value 05/22/2022 97 AST (U/L) Date Value 05/22/2022 20 ALT (U/L) Date Value 05/22/2022 11 WBC Date Value Ref Range Status 09/04/2022 10.32 3.70 - 11.00 k/uL Final RBC Date Value Ref Range Status 09/04/2022 4.42 4.20 - 6.00 m/uL Final Hemoglobin Date Value Ref Range Status 09/04/2022 14.1 13.0 - 17.0 g/dL Final Hematocrit Date Value Ref Range Status 09/04/2022 44.0 39.0 - 51.0 % Final MCV Date Value Ref Range Status 09/04/2022 99.5 80.0 - 100.0 fL Final MCH Date Value Ref Range Status 09/04/2022 31.9 26.0 - 34.0 pg Final MCHC Date Value Ref Range Status 09/04/2022 32.0 30.5 - 36.0 g/dL Final RDW-CV Date Value Ref Range Status 09/04/2022 16.3 (H) 11.5 - 15.0 % Final Platelet Count Date Value Ref Range Status 09/04/2022 248 150 - 400 k/uL Final MPV Date Value Ref Range Status 09/04/2022 10.0 9.0 - 12.7 fL Final Abs Neut Date Value Ref Range Status 09/04/2022 6.67 1.45 - 7.50 k/uL Final Lymphocytes % Date Value Ref Range Status 09/04/2022 19.3 % Final Abs Lymph Date Value Ref Range Status 09/04/2022 1.99 1.00 - 4.00 k/uL Final Monocytes % Date Value Ref Range Status 09/04/2022 13.2 % Final Abs Tate Date Value Ref Range Status 09/04/2022 1.36 (H) <0.87 k/uL Final Eosinophils % Date Value Ref Range Status 09/04/2022 1.7 % Final Abs Eosin Date Value Ref Range Status 09/04/2022 0.18 <0.46 k/uL Final Basophils % Date Value Ref Range Status 09/04/2022 0.7 % Final Abs Baso Date Value Ref Range Status 09/04/2022 0.07 <0.11 k/uL Final PATH: BM Biopsy 08/2018: A. Bone marrow, right posterior iliac crest, biopsy, aspirate smear, and peripheral blood smear: - Normocellular bone marrow (30%) with trilineage hematopoiesis and 3% plasma cells, see comment. - Decreased iron stores without ring sideroblasts. B. Bone marrow, right posterior iliac crest, clot section: - Normocellular bone marrow (30%) with trilineage hematopoiesis and 3% plasma cells, see comment. 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 Plasma cells are not increased (3%), confirmed by CD138 stain. In situ hybridization for kappa and lambda light chains appear to be polytypic. The special stain for Congo red performed on the core biopsy and clot section is negative for amyloid deposition. The flow cytometric analysis of the marrow aspirate reveals polytypic plasma cells and no immunophenotypic evidence of an abnormal population of T lymphocytes, B lymphocytes or blasts. Overall, there is no morphologic or immunophenotypic evidence of plasma cell neoplasm. Correlation with clinical findings and cytogenetic/FISH studies is recommended. Probe/Control Range Patient/Interpretation 1p32.3(CDKN2C)-1signal/0-3.6% 0%/negative 1q21.3(CKS1B)-3signals/0-3.7% 0%/negative 3q27(BCL6)-3signals/0-2.2% 0%/negative 3f94-17,5p15.2(LFI3G-H0C35:X1C785)-3signals/0-0.6% 0%/negative 8q24(MYC)-bap/0-3.0% 0%/negative 11q22.3(ODILON)-3signals/0-0.6% 0%/negative 12p13(ETV6)-1signal/0-4.1% 0.5%/negative 13q14(RB1)-1signal/0-4.2% 0.5%/negative 13q34(LAMP1)-1signal/0-3.0% 0%/negative 17p13.1(TP53)-1signal/0-3.2% 0.5%/negative 21q22(RUNX1)-3signals/0-0.6% 0%/negative 14q32.3-11q13(IGH-CCND1)/0-0.6% 0%/negative IMAGING: PET 05/2021: 1. Mild metabolic activity associated with the posterior left 9th rib lesion and associated soft tissue mass. 2. No metabolic abnormality identified in the previously described osseous abnormalities in the calvarium, left clavicle and spine. No new site of disease identified. CT of the chest and Abdomen and Pelvis 12/2021: 1. No acute intrathoracic abnormality. 2. Left 9th rib lytic lesion has progressed with new lytic lesion in the manubrium. These are likely due to history of multiple myeloma. 3. Large amount of high attenuation fluid/soft tissue in the urinary bladder, concerning for blood products. Underlying lesion would be difficult to exclude. Clinical correlation is recommended. 4. No acute intra-abdominal abnormality. 5. Age-indeterminate fracture of the right L3 transverse process. 6. Diverticulosis without diverticulitis. ECHO 03/2021: Summary Left ventricle is normal in size. Global left ventricular systolic function appears low normal. Calculated EF via Torres's method is 50 %. Trivial tricuspid regurgitation. Trivial pulmonic insufficiency. PET 05/2022: 1. HEAD and NECK: No evidence of focal uptake to suggest FDG avid neoplastic process.. 2. CHEST: No evidence of focal uptake to suggest FDG avid neoplastic process.. 3. ABDOMEN/PELVIS: No evidence of focal uptake to suggest FDG avid neoplastic process.. 4. EXTREMITIES/SKELETON: Expansile lesion in the left medial clavicle head, minimal change since prior study. Assessment and Plan: Missy Salgado is a 82 year old year old male here for follow up. MM- therapy sequences summarized above was started on Darzalex and dex and will continue and followup on myeloma parameters He does not like the dex and will only take it on the days which he gets Darzalex. His myeloma parameters are stable. His PET 05/2022 was unchanged and no progression. Resumetherapy in [place]. And now back to resume Darzalex. Will stop Dex due to insomnia and follow myeloma parameters Discussed bone resorptive agents and patient states that he is not interested understanding the rational for their use. Bladder tumor post TURBT and bleeding and subsequent arrest and transfer to [place].Off Plavix and Xarelto and stable. He will re-establish with urology in [place] Neuropathy- Stable- Stopped Gabapentin Thank you for the kind referral. If there are any questions and or concerns please do not hesitate to contact me at [phone]. David Molina MD Hematology/Medical Oncology [facility] I spent a total of 30 minutes on the date of the service which included preparing to see the patient, [id number] patient care, completing clinical documentation, obtaining and/or reviewing separately obtained history, performing a medically appropriate examination, counseling and educating the pat ient/family/caregiver and ordering medications, tests, or procedures. CC: MD Allie Mixon MD documented in this encounterSouthwest [facility] Health Center02-28-2023 Miscellaneous Notes* Telephone Encounter - Gigi Rios - 08/28/2022 1:11 PM EST Pt returning from [place]. Please place labs if needed for visit on 09/04. Thanks. Gigi Rios documented in this encounterSouthwest General Health Center02-14-2023 Miscellaneous Notes* Telephone Encounter - David Molina MD - 08/14/2022 4:30 PM EST OK * Telephone Encounter - Geni Crane - 08/14/2022 2:27 PM EST Received call from pt's spouse stating they will be returning from [place] on 08/31 and would like tonow schedule their treatments. Patient has been scheduled for 09/[address] Lobato and MAURICE mancini. Last infusion in [place] was given on 08/03[facility]EECE Crane documented in this encounterSouthwest General Health Center01-13-2023 Miscellaneous Notes* Telephone Encounter - [facility] Provider - 07/13/2022 3:44 PM EST Received a call from patient stating that the acyclovir is making him sick. He gets sleepy and has hot and cold spells Dr. Solares aware and suggest patient stay on the medication.. Called patient back who verbalized understanding of instructions documented in this encounterSouthwest General Health Center01-06-2023 Miscellaneous Notes* Telephone Encounter - [facility] Provider - 07/06/2022 3:45 PM EST Patient requesting to take Dexamethasone prior to chemo appt at home. Patient also requesting acyclovir refill. documented in this encounterSouthwest General Health Center12-27-2022 Miscellaneous Notes* Telephone Encounter - Kanika Aquino RN - 06/26/2022 3:13 PM EST Call received from Jaycee at [facility] in [place] to review pt's treatment history. Pt has notreceived tylenol or benadryl with his recent treatments, just steroid po. Jaycee notified of this as well as a treatment nurse verifying this for me. Kanika Aquino RN documented in this [facility]11-25-2022 Miscellaneous Notes* Telephone Encounter - Elo Dan RN - 05/25/2022 1:06 PM EST Pt notified and verbalizes understanding. Elo Dan RN * Telephone Encounter - Elo Dan RN - 05/25/2022 1:06 PM EST ----- Message from David Molina MD sent at 05/25/2022 9:20 AM EST ----- Call with numbers looking fine and that he will continue therapy in [place] documented in this encounterSouthwest General Health Center11-22-2022 History of Present illness Narrative* David Molina MD - 05/22/2022 1:04 PM EST PATIENT NAME: Missy Salgado CLINIC NO.: [id number] ATTENDING PHYSICIAN: David Molina MD DATE OF SERVICE: May 22, 2022 Some of the elements of this note have been copied from my previous progress note dated 04/24/2022.All the information has been reviewed carefully. Dear Dr. Allie Solares here is an update on a follow up visit on male Missy Salgado at the clinic May 22, 2022 Diagnosis: 1. Multiple Myeloma- FISH- Normal Treatment History: 1. 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 T9 surgical resection 2010 3. 6 cycles of CyBord 2010 4. L Clavicular mass 01/2017 5. 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 L Orbital mass radiation 09/2018 8. VRD 6 cycles- Completed 05/2019- Brian Maintenance- 05/2021- Progression 9. Rib Xray 05/[address] Gunn at [facility] as well.-- Started Darzalex and Dex 07/26/2021 11. Established care with me 09/27/2021 HPI: Missy Salgado is a 82 year old year old male here for follow up. Feels well and denies any fevers and or chills. Denies any worsening pain. Plan for [place] trip on Saturday and return August. Established onc there. PAST MEDICAL HISTORY Diagnosis Date CAD (coronary artery disease) Hyperlipidemia Hypertension Multiple myeloma (HCC) Myocardial infarction (HCC) Presence of Watchman left atrial appendage closure device Social History Tobacco Use Smoking status: Former Packs/day: 1.00 Types: Cigarettes Quit date: 07/17/1981 Years since quittin.8 Passive exposure: Never Smokeless tobacco: Never Vaping Use Vaping Use: Never used Substance Use Topics Alcohol use: Yes Alcohol/week: 7.0 standard drinks Types: 7 Shots of liquor per week Drug use: Never No family history on file. Past medical, social and family history reviewed without any changes. REVIEW OF SYSTEMS GENERAL: No weight loss, malaise or fevers. No night sweats. HEENT: Negative for headaches, No changes in hearing or vision, no nose bleeds or other nasal problems. RESPIRATORY: Negative for cough, wheezing and shortness of breath CARDIOVASCULAR: Negative for chest pain, leg swelling and palpitations GI: Negative for abdominal discomfort, blood in stools or black stools and change in bowel habits : Negative for dysuria, frequency and incontinence MUSCULOSKELETAL: Negative for joint pain or swelling, back pain, and muscle pain. SKIN: Negative for lesions, rash, and itching. HEMATOLOGY/LYMPHOLOGY Negative for prolonged bleeding, bruising easily, and swollen nodes. NEURO: Negative for numbness or tingling of hands/feet. No weakness. PHYSICAL EXAMINATION: BP 129/73 Pulse 98 Temp (Src) 97.6 (Temporal) Resp 16 Ht 6' .165 (1.83m) Wt 214 lb 12.8 oz (97.4kg) SpO2 96% BMI 29.00 kg/(m^2). Wt 93.1 kg (205 lb 3.2 oz) BMI 27.7 kg/m2 Last 3 Encounter Wt Readings: Date: Wt: 10/31/2021 93.1 kg (205 lb 3.2 oz) 10/17/2021 92.2 kg (203 lb 3.2 oz) 10/03/2021 91.8 kg (202 lb 4.8 oz) General appearance:ECOG PERFORMANCE STATUS: 1- Restricted in physically strenuous activity. Carries out light duty. Patient in NAD. Skin: Skin color, texture, turgor normal. No rashes or lesions. Eyes: Anicteric sclera. Pupils are equally round and reactive to light. Extraocular movements are intact. Lymph Nodes: No cervical, supraclavicular, axillary or inguinal adenopathy. Oropharynx: Lips, mucosa, and tongue normal. Back: No pain to percussion. Negative SLR test Lungs clear to auscultation, No wheezing or rhonchi Heart: RRR without murmur, gallop, or rubs. Abdomen soft, non-tender. No masses, organomegaly Extremities: No deformities. No edema Neuro: Gait and speech normal. Reflexes normal and symmetric. Muscular strength intact. Sensation grossly intact. Rectal: Deferred : Deferred LABS: Glucose (mg/dL) Date Value 05/22/2022 149 Potassium (mmol/L) Date Value 05/22/2022 4.3 Sodium (mmol/L) Date Value 05/22/2022 139 Chloride (mmol/L) Date Value 05/22/2022 103 CO2 (mmol/L) Date Value 05/22/2022 29 Creatinine (mg/dL) Date Value 05/22/2022 1.33 BUN (mg/dL) Date Value 05/22/2022 21 Anion Gap (mmol/L) Date Value 05/22/2022 7 Calcium, Total (mg/dL) Date Value 05/22/2022 10.0 Protein, Total (g/dL) Date Value 05/22/2022 6.8 Albumin (g/dL) Date Value 05/22/2022 3.6 Bilirubin, Total (mg/dL) Date Value 05/22/2022 0.2 Alkaline Phosphatase (U/L) Date Value 05/22/2022 97 AST (U/L) Date Value 05/22/2022 20 ALT (U/L) Date Value 05/22/2022 11 WBC Date Value Ref Range Status 05/22/2022 9.54 3.70 - 11.00 k/uL Final RBC Date Value Ref Range Status 05/22/2022 4.02 (L) 4.20 - 6.00 m/uL Final Hemoglobin Date Value Ref Range Status 05/22/2022 12.1 (L) 13.0 - 17.0 g/dL Final Hematocrit Date Value Ref Range Status 05/22/2022 38.2 (L) 39.0 - 51.0 % Final MCV Date Value Ref Range Status 05/22/2022 95.0 80.0 - 100.0 fL Final MCH Date Value Ref Range Status 05/22/2022 30.1 26.0 - 34.0 pg Final MCHC Date Value Ref Range Status 05/22/2022 31.7 30.5 - 36.0 g/dL Final RDW-CV Date Value Ref Range Status 05/22/2022 15.9 (H) 11.5 - 15.0 % Final Platelet Count Date Value Ref Range Status 05/22/2022 329 150 - 400 k/uL Final MPV Date Value Ref Range Status 05/22/2022 9.9 9.0 - 12.7 fL Final Abs Neut Date Value Ref Range Status 05/22/2022 6.51 1.45 - 7.50 k/uL Final Lymph% Date Value Ref Range Status 05/22/2022 17.8 % Final Abs Lymph Date Value Ref Range Status 05/22/2022 1.70 1.00 - 4.00 k/uL Final Tate% Date Value Ref Range Status 05/22/2022 11.5 % Final Abs Tate Date Value Ref Range Status 05/22/2022 1.10 (H) <0.87 k/uL Final Eosin% Date Value Ref Range Status 05/22/2022 1.5 % Final Abs Eosin Date Value Ref Range Status 05/22/2022 0.14 <0.46 k/uL Final Baso% Date Value Ref Range Status 05/22/2022 0.5 % Final Abs Baso Date Value Ref Range Status 05/22/2022 0.05 <0.11 k/uL Final PATH: BM Biopsy 08/2018: A. Bone marrow, right posterior iliac crest, biopsy, aspirate smear, and peripheral blood smear: - Normocellular bone marrow (30%) with trilineage hematopoiesis and 3% plasma cells, see comment. - Decreased iron stores without ring sideroblasts. B. Bone marrow, right posterior iliac crest, clot section: - Normocellular bone marrow (30%) with trilineage hematopoiesis and 3% plasma cells, see comment. 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 Plasma cells are not increased (3%), confirmed by CD138 stain. In situ hybridization for kappa and lambda light chains appear to be polytypic. The special stain for Congo red performed on the core biopsy and clot section is negative for amyloid deposition. The flow cytometric analysis of the marrow aspirate reveals polytypic plasma cells and no immunophenotypic evidence of an abnormal population of T lymphocytes, B lymphocytes or blasts. Overall, there is no morphologic or immunophenotypic evidence of plasma cell neoplasm. Correlation with clinical findings and cytogenetic/FISH studies is recommended. Probe/Control Range Patient/Interpretation 1p32.3(CDKN2C)-1signal/0-3.6% 0%/negative 1q21.3(CKS1B)-3signals/0-3.7% 0%/negative 3q27(BCL6)-3signals/0-2.2% 0%/negative 5s76-38,5p15.2(UWZ6G-W0R00:V0G783)-3signals/0-0.6% 0%/negative 8q24(MYC)-bap/0-3.0% 0%/negative 11q22.3(ODILON)-3signals/0-0.6% 0%/negative 12p13(ETV6)-1signal/0-4.1% 0.5%/negative 13q14(RB1)-1signal/0-4.2% 0.5%/negative 13q34(LAMP1)-1signal/0-3.0% 0%/negative 17p13.1(TP53)-1signal/0-3.2% 0.5%/negative 21q22(RUNX1)-3signals/0-0.6% 0%/negative 14q32.3-11q13(IGH-CCND1)/0-0.6% 0%/negative IMAGING: PET 05/2021: 1. Mild metabolic activity associated with the posterior left 9th rib lesion and associated soft tissue mass. 2. No metabolic abnormality identified in the previously described osseous abnormalities in the calvarium, left clavicle and spine. No new site of disease identified. CT of the chest and Abdomen and Pelvis 12/2021: 1. No acute intrathoracic abnormality. 2. Left 9th rib lytic lesion has progressed with new lytic lesion in the manubrium. These are likely due to history of multiple myeloma. 3. Large amount of high attenuation fluid/soft tissue in the urinary bladder, concerning for blood products. Underlying lesion would be difficult to exclude. Clinical correlation is recommended. 4. No acute intra-abdominal abnormality. 5. Age-indeterminate fracture of the right L3 transverse process. 6. Diverticulosis without diverticulitis. ECHO 03/2021: Summary Left ventricle is normal in size. Global left ventricular systolic function appears low normal. Calculated EF via Torres's method is 50 %. Trivial tricuspid regurgitation. Trivial pulmonic insufficiency. PET 05/2022: 1. HEAD and NECK: No evidence of focal uptake to suggest FDG avid neoplastic process.. 2. CHEST: No evidence of focal uptake to suggest FDG avid neoplastic process.. 3. ABDOMEN/PELVIS: No evidence of focal uptake to suggest FDG avid neoplastic process.. 4. EXTREMITIES/SKELETON: Expansile lesion in the left medial clavicle head, minimal change since prior study. Assessment and Plan: Missy Salgado is a 82 year old year old male here for follow up. MM- therapy sequences summarized above was started on Darzalex and dex and will continue and followup on myeloma parameters He does not like the dex and will only take it on the days which he gets Darzalex. His myeloma parameters are stable. His PET 05/2022 was unchanged and no progression. Resumetherapy in [place]. Last Darzalex here was 05/22/2022 Discussed bone resorptive agents and patient states that he is not interested understanding the rational for their use. Bladder tumor post TURBT and bleeding and subsequent arrest and transfer to [place].Off Plavix and Xarelto and stable. He will re-establish with urology in [place] Gabapentin for neuropathy as well. See back when he returns from [place] Thank you for the kind referral. If there are any questions and or concerns please do not hesitate to contact me at [phone]. David Molina MD Hematology/Medical Oncology [facility] spent a total of 30 minutes on the date of the service which included preparing to see the patient, [id number] patient care, completing clinical documentation, obtaining and/or reviewing separately obtained history, performing a medically appropriate examination, counseling and educating the pat ient/family/caregiver and ordering medications, tests, or procedures. Medical Decision Making: Medical Decision Making Level: 1 - N/A CC: MD Allie Mixon MD documented in this encounterSouthwest General Health Center11-22-2022 Nurse Note* Jenn Craig MA - 05/22/2022 12:57 PM EST Patient did fall recently and hurt his right shoulder. Patient is leaving for [place] on Saturday andwill resume care while there in the winter with Dr. Allen. Jenn Craig MA documented in this encounter[facility]11-17-2022 Miscellaneous Notes* Telephone Encounter - Gigi Rios - 05/17/2022 10:41 AM EST Per last note needs myeloma labs, no orders placed. Appt on 05/22. Gigi Rios documented in this encounterSouthwest [facility]11-14-2022 History of Present illness Narrative* Bre Abdul RN - 05/14/2022 12:00 PM EST Radiology Service Progress Note DATE OF SERVICE: May 14, 2022 TIME: 12:29 PM PATIENT WEIGHT: 211.2 LBS PATIENT IDENTITY VERIFICATION COMPLETED USING TWO (2) STANDARD IDENTIFIERS: Name and Date of confirmed by patient verbally. FALL SCREENING: Has the patient had 2 falls in the last year or 1 fall with injury or currently using an Ambulatory Assistive Device (Walker, Cane, Wheelchair, Crutches, etc.)? Yes, Patient High Riskfor Falls What interventions were put in place to prevent falls during this visit? [place] Risk Wristband Applied, Instructed Patient to Remain Seated (Not on Exam Table) Until Exam, and Increased Observations by Caregivers PATIENT GENDER DATA: Male ALLERGIES: Reviewed and unchanged CONTRAST ALLERGY: No EXAM: CT -CONTRAST INDUCED NEPHROPATHY RISK FACTORS: Not applicable CREATININE: Creatinine Date Value Ref Range Status 04/24/2022 1.42 (H) 0.73 - 1.22 mg/dL Final 03/26/2022 1.38 (H) 0.73 - 1.22 mg/dL Final 02/20/2022 1.46 (H) 0.73 - 1.22 mg/dL Final Estimated Glomerular Filtration Rate Date Value Ref Range Status 04/24/2022 50 (L) >=60 mL/min/1.73m Final Comment: Estimated Glomerular Filtration Rate (eGFR) is calculated using the 2020 CKD-EPI creatinine equation. This equation utilizes serum creatinine, sex, and age as parameters. The creatinine assay has traceable calibration to isotope dilution- mass spectrometry. Refer to KDIGO guidelines for clinical interpretation. In patients with unstable renal function, e.g. those with acute kidney injury, the eGFRmay not accurately reflect actual GFR. P.O.C.T. RESULTS: POC done: Yes, See Lab Tab May 14, 2022 TREATMENT: N/A IV SITE: Ambulatory: A peripheral IV was started in the Right forearm with a Angio cath: 22 gauge. IV SITE APPEARANCE: Clean,Dry and Intact SIGNATURE: Bre Abdul RN PATIENT NAME: Missy Salgado DATE: May 14, 2022 TIME: 12:29 PM * Elo Spear RT(R) - 05/14/2022 12:00 PM EST RADIOLOGY SERVICE PROGRESS NOTE SERVICE DATE: 05/14/2022 SERVICE TIME: 2:52 PM PATIENT IDENTITY VERIFICATION COMPLETED USING TWO (2) STANDARD IDENTIFIERS: Name and Date of confirmed by patient verbally POST EXAM PIV STATUS: Discontinued PROCEDURE TYPE: NM INJECT: PET/CT BODY SCAN. 13.6 mCi F18 FDG. No other medications given.. ADMINISTRATION TIME: 1224 PATIENT DISCHARGED TO: Ambulatory patient, left [place] department area. A Diagnostic radioactive procedure has taken place, with no further precautions necessary other than routine body substance precautions. More information regarding radiation safety can be found usingthis link: [email or web address] SIGNATURE: RT Willian(Nawaf) PATIENT NAME: Missy Salgado DATE: May 14, 2022 TIME: 2:52 PM PAGER/CONTACT #: documented in this encounterSouthwest [facility] Center10-27-2022 Miscellaneous Notes* Telephone Encounter - Gaby Malik Pss - 04/26/2022 10:09 AM EDT Called [facility] spoke with Idalia. She states they have received this referral and have patient scheduled with their office on 04/30. Gaby Malik Pss * Telephone Encounter - Gaby Malik Pss - 04/25/2022 9:42 AM EDT Called [facility] spoke with Idalia. She stated they have not received this referral and has asked us to re-fax to her attn @ [phone]. Re-Faxed PT order and patient demographics/insurance info Attn: Idalia Malik Pss * Telephone Encounter - Geni Crane - 04/24/2022 3:06 PM EDT Patient would like to be referred to [facility] because his goes there also. Ph. [phone] Fax. [phone] Hermilo: Can you please check on this referral? Thank you! Faxed new referral to their office. Geni Crane documented in this encounterSouthwest [facility] Center10-25-2022 Miscellaneous Notes* Telephone Encounter - Suzan Carson - 04/24/2022 4:43 PM EDT Faxed request for medical records documented in this encounterSouthwest [facility] Center09-21-2022 History of Present illness Narrative* Katey Manuel - 03/21/2022 2:04 PM EDT CLINICAL PHARMACY NOTE: MEDS TO BEDS Total # of Prescriptions Filled: 1 The following medications were delivered to the patient: Xarelto 20 Additional Documentation: * Malou Gruber - 03/21/2022 10:22 AM EDT Echo completed in the Echo Lab. * Trisha Watson RN - 03/20/2022 4:10 PM EDT Left arterial line discontinued with manual pressure held 10 minutes with pressure dressing applied. Transported per bed to room 2012 with handoff at bedside. Right and left groins clean soft and dry. * Trisha Watson RN - 03/20/2022 3:50 PM EDT Report called to Matias PRINGLE * Huong Schwartz RN - 03/20/2022 3:09 PM EDT Received post procedure to [facility] to room 5. Assessment obtained. Restrictions reviewed with patient. Post procedure pathway initiated. Bilateral groin site soft , dressing dry and intact. No hematoma noted. Family at side. Patient without complaints. Head of bed flat with Bilateral leg straight. * Trisha Watson RN - 03/20/2022 11:20 AM EDT Patient admitted, consent signed and questions answered. Patient ready for procedure. Call light toreach with side rails up 2 of 2. Bilat groin hairs clipped with technical proposal writer and La present. at bedside with patient. History and physical needing update. Anesthesia in to see patient. Blood bank called to confirm blood availability documented in this encounterBON Cal[facility] Phone: [phone]) 615-206209-14-2022 Miscellaneous Notes* Telephone Encounter - Kanika Aquino RN - 03/14/2022 10:10 AM EDT notified. Kanika Aquino RN * Telephone Encounter - David Molina MD - 03/13/2022 4:22 PM EDT Yes * Telephone Encounter - Kanika Aquino RN - 03/13/2022 3:02 PM EDT Pt's calls stating pt will be having watchman device inserted into his heart on 03/20. Pt is scheduled for treatment on 03/26. Is this okay? There were no openings for him to get treatment on 03/19per . Please advise Kanika Aquino RN documented in this encounterSouthwest [facility] Center08-25-2022 Miscellaneous Notes* Telephone Encounter - Kanika Aquino RN - 02/22/2022 9:45 AM EDT Message left with this information on pt's voicemail Kanika Aquino RN * Telephone Encounter - Kanika Aquino RN - 02/22/2022 9:44 AM EDT ----- Message from David Molina MD sent at 02/22/2022 8:22 AM EDT ----- Please let Wade know that his number are stable and will continue with the plan documented in this encounterSouthwest [facility] Center08-23-2022 History of Present illness Narrative* David Molina MD - 02/20/2022 2:24 PM EDT PATIENT NAME: Missy Salgado CLINIC NO.: [id number] ATTENDING PHYSICIAN: David Molina MD DATE OF SERVICE: February 20, 2022 Some of the elements of this note have been copied from my previous progress note dated 01/09/2022 All the information has been reviewed carefully. Dear Dr. Allie Solares here is an update on a follow up visit on male Missy Salgado at the clinic February 20, 2022 Diagnosis: 1. Multiple Myeloma- FISH- Normal Treatment History: 1. 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 T9 surgical resection 2010 3. 6 cycles of CyBord 2010 4. L Clavicular mass 01/2017 5. 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 L Orbital mass radiation 09/2018 8. VRD 6 cycles- Completed 05/2019- Brian Maintenance- 05/2021- Progression 9. Rib Xray 05/[address] [facility] Started Darzalex and Dex 07/26/2021 11. Established care with ma 09/27/2021 HPI: Missy Salgado is a 81 year old year old male here for follow up. He had a cystoscopy about a month ago which led to bleeding 2 weeks later and he developed cardiac arrest at [place] and was transferred to [place] at the end of December 2021. He received one unit of blood and his Plavix and xarelto was discontinued. He is tired but otherwise doing well. PAST MEDICAL HISTORY Diagnosis Date CAD (coronary artery disease) Hyperlipidemia Hypertension Multiple myeloma (HCC) Myocardial infarction (HCC) Social History Tobacco Use Smoking status: Former Packs/day: 1.00 Types: Cigarettes Quit date: 07/17/1981 Years since quittin.6 Passive exposure: Never Smokeless tobacco: Never Vaping Use Vaping Use: Never used Substance Use Topics Alcohol use: Yes Alcohol/week: 7.0 standard drinks Types: 7 Shots of liquor per week Drug use: Never No family history on file. Past medical, social and family history reviewed without any changes. REVIEW OF SYSTEMS GENERAL: No weight loss, malaise or fevers. No night sweats. HEENT: Negative for headaches, No changes in hearing or vision, no nose bleeds or other nasal problems. RESPIRATORY: Negative for cough, wheezing and shortness of breath CARDIOVASCULAR: Negative for chest pain, leg swelling and palpitations GI: Negative for abdominal discomfort, blood in stools or black stools and change in bowel habits : Negative for dysuria, frequency and incontinence MUSCULOSKELETAL: Negative for joint pain or swelling, back pain, and muscle pain. SKIN: Negative for lesions, rash, and itching. HEMATOLOGY/LYMPHOLOGY Negative for prolonged bleeding, bruising easily, and swollen nodes. NEURO: Negative for numbness or tingling of hands/feet. No weakness. PHYSICAL EXAMINATION: BP 117/70 Pulse 76 Temp (Src) 98.1 (Temporal) Resp 16 Ht 6' .165 (1.83m) Wt 209 lb (94.8kg) SpO2 95% BMI 28.22 kg/(m^2). Wt 93.1 kg (205 lb 3.2 oz) BMI 27.7 kg/m2 Last 3 Encounter Wt Readings: Date: Wt: 10/31/2021 93.1 kg (205 lb 3.2 oz) 10/17/2021 92.2 kg (203 lb 3.2 oz) 10/03/2021 91.8 kg (202 lb 4.8 oz) General appearance:ECOG PERFORMANCE STATUS: 1- Restricted in physically strenuous activity. Carries out light duty. Patient in NAD. Skin: Skin color, texture, turgor normal. No rashes or lesions. Eyes: Anicteric sclera. Pupils are equally round and reactive to light. Extraocular movements are intact. Lymph Nodes: No cervical, supraclavicular, axillary or inguinal adenopathy. Oropharynx: Lips, mucosa, and tongue normal. Back: No pain to percussion. Negative SLR test Lungs clear to auscultation, No wheezing or rhonchi Heart: RRR without murmur, gallop, or rubs. Abdomen soft, non-tender. No masses, organomegaly Extremities: No deformities. No edema Neuro: Gait and speech normal. Reflexes normal and symmetric. Muscular strength intact. Sensation grossly intact. Rectal: Deferred : Deferred LABS: Glucose (mg/dL) Date Value 02/20/2022 106 Potassium (mmol/L) Date Value 02/20/2022 4.5 Sodium (mmol/L) Date Value 02/20/2022 139 Chloride (mmol/L) Date Value 02/20/2022 104 CO2 (mmol/L) Date Value 02/20/2022 26 Creatinine (mg/dL) Date Value 02/20/2022 1.46 BUN (mg/dL) Date Value 02/20/2022 25 Anion Gap (mmol/L) Date Value 02/20/2022 9 Calcium, Total (mg/dL) Date Value 02/20/2022 9.0 Protein, Total (g/dL) Date Value 02/20/2022 5.9 Albumin (g/dL) Date Value 02/20/2022 3.7 Bilirubin, Total (mg/dL) Date Value 02/20/2022 0.3 Alkaline Phosphatase (U/L) Date Value 02/20/2022 88 AST (U/L) Date Value 02/20/2022 17 ALT (U/L) Date Value 02/20/2022 9 WBC Date Value Ref Range Status 02/20/2022 8.72 3.70 - 11.00 k/uL Final RBC Date Value Ref Range Status 02/20/2022 3.30 (L) 4.20 - 6.00 m/uL Final Hemoglobin Date Value Ref Range Status 02/20/2022 10.9 (L) 13.0 - 17.0 g/dL Final Hematocrit Date Value Ref Range Status 02/20/2022 34.0 (L) 39.0 - 51.0 % Final MCV Date Value Ref Range Status 02/20/2022 103.0 (H) 80.0 - 100.0 fL Final MCH Date Value Ref Range Status 02/20/2022 33.0 26.0 - 34.0 pg Final MCHC Date Value Ref Range Status 02/20/2022 32.1 30.5 - 36.0 g/dL Final RDW-CV Date Value Ref Range Status 02/20/2022 14.7 11.5 - 15.0 % Final Platelet Count Date Value Ref Range Status 02/20/2022 289 150 - 400 k/uL Final MPV Date Value Ref Range Status 02/20/2022 9.5 9.0 - 12.7 fL Final Abs Neut Date Value Ref Range Status 02/20/2022 5.81 1.45 - 7.50 k/uL Final Lymph% Date Value Ref Range Status 02/20/2022 18.1 % Final Abs Lymph Date Value Ref Range Status 02/20/2022 1.58 1.00 - 4.00 k/uL Final Tate% Date Value Ref Range Status 02/20/2022 13.3 % Final Abs Tate Date Value Ref Range Status 02/20/2022 1.16 (H) <0.87 k/uL Final Eosin% Date Value Ref Range Status 02/20/2022 0.9 % Final Abs Eosin Date Value Ref Range Status 02/20/2022 0.08 <0.46 k/uL Final Baso% Date Value Ref Range Status 02/20/2022 0.7 % Final Abs Baso Date Value Ref Range Status 02/20/2022 0.06 <0.11 k/uL Final PATH: BM Biopsy 08/2018: A. Bone marrow, right posterior iliac crest, biopsy, aspirate smear, and peripheral blood smear: - Normocellular bone marrow (30%) with trilineage hematopoiesis and 3% plasma cells, see comment. - Decreased iron stores without ring sideroblasts. B. Bone marrow, right posterior iliac crest, clot section: - Normocellular bone marrow (30%) with trilineage hematopoiesis and 3% plasma cells, see comment. 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 Plasma cells are not increased (3%), confirmed by CD138 stain. In situ hybridization for kappa and lambda light chains appear to be polytypic. The special stain for Congo red performed on the core biopsy and clot section is negative for amyloid deposition. The flow cytometric analysis of the marrow aspirate reveals polytypic plasma cells and no immunophenotypic evidence of an abnormal population of T lymphocytes, B lymphocytes or blasts. Overall, there is no morphologic or immunophenotypic evidence of plasma cell neoplasm. Correlation with clinical findings and cytogenetic/FISH studies is recommended. Probe/Control Range Patient/Interpretation 1p32.3(CDKN2C)-1signal/0-3.6% 0%/negative 1q21.3(CKS1B)-3signals/0-3.7% 0%/negative 3q27(BCL6)-3signals/0-2.2% 0%/negative 4d48-24,5p15.2(EUN9C-R1H73:O2I161)-3signals/0-0.6% 0%/negative 8q24(MYC)-bap/0-3.0% 0%/negative 11q22.3(ODILON)-3signals/0-0.6% 0%/negative 12p13(ETV6)-1signal/0-4.1% 0.5%/negative 13q14(RB1)-1signal/0-4.2% 0.5%/negative 13q34(LAMP1)-1signal/0-3.0% 0%/negative 17p13.1(TP53)-1signal/0-3.2% 0.5%/negative 21q22(RUNX1)-3signals/0-0.6% 0%/negative 14q32.3-11q13(IGH-CCND1)/0-0.6% 0%/negative IMAGING: PET 05/2021: 1. Mild metabolic activity associated with the posterior left 9th rib lesion and associated soft tissue mass. 2. No metabolic abnormality identified in the previously described osseous abnormalities in the calvarium, left clavicle and spine. No new site of disease identified. CT of the chest and Abdomen and Pelvis 12/2021: 1. No acute intrathoracic abnormality. 2. Left 9th rib lytic lesion has progressed with new lytic lesion in the manubrium. These are likely due to history of multiple myeloma. 3. Large amount of high attenuation fluid/soft tissue in the urinary bladder, concerning for blood products. Underlying lesion would be difficult to exclude. Clinical correlation is recommended. 4. No acute intra-abdominal abnormality. 5. Age-indeterminate fracture of the right L3 transverse process. 6. Diverticulosis without diverticulitis. ECHO 03/2021: Summary Left ventricle is normal in size. Global left ventricular systolic function appears low normal. Calculated EF via Torres's method is 50 %. Trivial tricuspid regurgitation. Trivial pulmonic insufficiency. Assessment and Plan: Missy Salgado is a 81 year old year old male here for follow up. MM- therapy sequences summarized above was started on Darzalex and dex and will continue and followup on myeloma parameters He does not like the dex and will only take it on the days which he gets Darzalex. He also had imaging with ? New lesions. Follow myeloma parameters and if increased will repeatPET scan as well. Discussed bone resorptive agents and patient states that he is not interested understanding the rational for their use. See back in 4 weeks and repeat myeloma parameters Bladder tumor post TURBT and bleeding and subsequent arrest and transfer to [place]. Thank you for the kind referral. If there are any questions and or concerns please do not hesitate to contact me at [phone]. David Molina MD Hematology/Medical Oncology [facility] Jennifer Srivastava spent a total of 25 minutes on the date of the service which included preparing to see the patient, [id number] patient care, completing clinical documentation, obtaining and/or reviewing separately obtained history, performing a medically appropriate examination, counseling and educating the pat ient/family/caregiver and ordering medications, tests, or procedures. Medical Decision Making: Medical Decision Making Level: 1 - N/A CC: MD Allie Mixon MD documented in this encounterSouthwest General Health Center07-31-2022 History of Present illness Narrative* Nano Simon RN - 01/28/2022 2:18 PM EDT Patient and given discharge instructions. * Queenie Andrew - 01/28/2022 1:22 PM EDT CLINICAL PHARMACY NOTE: MEDS TO BEDS Total # of Prescriptions Filled: 5 The following medications were delivered to the patient: Hycoscamine 0.125mg sl tablet Midodrine 10mg tablet Oxycutynin er 5mg tablets Cipro 500mg tablets Flomax 0.4mg capsules Additional Documentation: meds delivered to the pt and family in room 2021 on 01.28 at 13:00, co pay $39.96 paid with a card on the clover. * Юлия Larios MD - 01/28/2022 10:51 AM EDT Images from the original note were not included. [facility] Office: [phone] Uziel Santana DO, Vicente Seay DO, Tung Tyler DO, Nhan Alfred DO, Matt Givens MD, Steffany Bragg MD, Davy Munoz MD, Nasima Yoder MD, Kayode Farris MD, Sen Novoa MD, Raj Muñoz DO, Юлия Larios MD, Nic Grider DO, Yovani Craig MD, Kerwin Davis MD, Elliot Santana DO, Tiara Barron MD, Alec Warner MD, Flakita Birmingham MD, Carlos Eduardo Dsouza DO,Elkin Ta MD, Grayson Parrish MD, Chen Kirk, HEALTH TEACHER, Sugey Milner HEALTH TEACHER, Paul Dorsey HEALTH TEACHER, William Moulton CNP, ADRIANA HarrisC, Sofie Machado, CAROL, Carmelina Ayers, HEALTH TEACHER, Lisette Wong, HEALTH TEACHER, Beth Ann, HEALTH TEACHER, Ely Lee, HEALTH TEACHER, Becka Robbins, HEALTH TEACHER, Urmila Oseguera, ENTRY LEVEL STAFF ACCOUNTANT, Candis Atkinson DNP,Milagros Marcos CNP, Swetha Flores, HEALTH TEACHER, Liv Azul, HEALTH TEACHER [facility] IN-PATIENT SERVICE [facility] Progress Note 01/28/2022 10:51 AM Name: Missy Salgado Acct: [id number] Room: IP Day: 4 Admit Date: 01/24/2022 5:57 PM PCP: Adair Noonan Code Status: Full Code Subjective: C/C: Chief Complaint Patient presents with Loss of Consciousness Hematuria Interval History Status: improved. Patient seen and examined in chair. Doing well. Pang out, and urinating with no issues. 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 Patient was evaluated in [facility]. Was found to be pulseless and arrested requiring lifeflight to [facility]. Patient was transfused 1 unit RBC prior to arrival due to drop in Hb. Patient being evaluated by urology, Hematology oncology, and Cardiology. Discharge on flomax and plavix. Xarelto held till evaluated by cardiology as outapteint Review of Systems: Review of Systems Constitutional: Negative for chills, diaphoresis, fatigue and fever. HENT: Negative for congestion, drooling, rhinorrhea and sore throat. Eyes: Negative for photophobia and discharge. Respiratory: Negative for apnea, cough and shortness of breath. Cardiovascular: Negative for chest pain, palpitations and leg swelling. Genitourinary: Negative for dysuria, hematuria, penile swelling and testicular pain. Musculoskeletal: Negative for arthralgias and neck pain. Skin: Positive for pallor. Negative for color change and rash. Neurological: Negative for dizziness, syncope and weakness. Hematological: Negative for adenopathy. Does not bruise/bleed easily. Psychiatric/Behavioral: Negative for agitation and confusion. Medications: Allergies: Allergies Allergen Reactions Statins Muscle stiffness Current Meds: Scheduled Meds: heparin (porcine) 5,000 Units SubCUTAneous 3 times per day tamsulosin 0.4 mg Oral Daily midodrine 10 mg Oral TID WC calcium elemental 500 mg Oral BID lactobacillus 1 capsule Oral Daily with breakfast piperacillin-tazobactam 3,375 mg IntraVENous Q8H clopidogrel 75 mg Oral Daily pantoprazole 40 mg Oral QAM AC sodium chloride flush 5-40 mL IntraVENous 2 times per day Continuous Infusions: sodium chloride PRN Meds: sodium chloride flush, sodium chloride, potassium chloride OR potassium alternative oral replacement OR potassium chloride, magnesium sulfate, ondansetron OR ondansetron, polyethylene glycol, acetaminophen OR acetaminophen, oxybutynin, hyoscyamine, opium-belladonna Data: Past Medical History: has a past medical history of Atrial fibrillation (HCC), CAD (coronary arterydisease), Cataract, Erectile dysfunction, Macular degeneration, Plasmacytoma (HCC), and STEMI (ST elevation myocardial infarction) (HCC). Social History: reports that he quit smoking about 46 years ago. His smoking use included cigarettes. He has quit using smokeless tobacco. He reports current alcohol use of about 7.0 standard drinks per week. He reports that he does not use drugs. Family History: Family History Problem Relation Age of Onset Heart Disease Father Cancer Sister Vitals: BP 113/70 Pulse 83 Temp 97.3 F (36.3 C) (Oral) Resp 16 Ht 6' (1.829 m) Wt 200 lb (90.7 kg) SpO2 97% BMI 27.12 kg/m Temp (24hrs), Av.1 F (36.7 C), Min:97.3 F (36.3 C), Max:98.4 F (36.9 C) No results for input(s): POCGLU in the last 72 hours. I/O (24Hr): Intake/Output Summary (Last 24 hours) at 01/28/2022 1051 Last data filed at 01/28/2022 0616 Gross per 24 hour Intake 600 ml Output 2750 ml Net -2150 ml Labs: Hematology: Recent Labs 01/26/22 0850 01/27/22 0630 WBC 15.2* 10.7 RBC 3.13* 2.57* HGB 10.7* 9.0* HCT 32.5* 27.0* MCV 103.8* 105.1* MCH 34.2* 35.0* MCHC 32.9 33.3 RDW 17.4* 17.2* PLT 98* 200 MPV 11.1 10.8 Chemistry: Recent Labs 01/25/22 1208 01/25/22 1619 01/25/22 1619 01/26/22 0850 01/27/22 0630 01/28/22 0801 NA -- 133* < > 141 144 139 K -- 4.4 < > 4.4 4.3 4.1 CL -- 102 < > 109* 112* 108* CO2 -- 22 < > 18* 23 22 GLUCOSE -- 103* < > 97 92 88 BUN -- 25* < > 20 13 14 CREATININE -- 1.23* < > 1.26* 1.18 1.22* ANIONGAP -- 9 < > 14 9 9 LABGLOM -- 57* < > 55* 60* 57* GFRAA -- >60 < > >60 >60 >60 CALCIUM -- 8.3* < > 8.5* 8.3* 8.7 TROPHS 15 -- -- -- -- -- LACTACIDWB -- 2.5* -- -- -- -- < > = values in this interval not displayed. Recent Labs 01/26/22 0850 01/27/22 0630 PROT 5.5* -- LABALBU 3.4* -- TSH -- 3.20 AST 29 -- ALT 13 -- ALKPHOS 69 -- BILITOT 0.55 -- ABG:No results found for: POCPH, PHART, PH, POCPCO2, QCW0MTE, PCO2, POCPO2, PO2ART, PO2, POCHCO3, IOH5WWV, HCO3, NBEA, PBEA, BEART, BE, THGBART, THB, XYD1HXR, UQLJ9PKV, X3CSGKBJ, O2SAT, FIO2 Lab Results Component Value Date/Time SPECIAL LAC 20 ML 01/24/2022 01:10 PM Lab Results Component Value Date/Time CULTURE NO GROWTH 4 DAYS 01/24/2022 01:10 PM Radiology: CT Head W/O Contrast Result Date: 01/24/2022 Moderate central and cortical cerebral atrophy. Mild chronic deep white matter ischemic changes No acute intracranial abnormalities are noted. XR CHEST PORTABLE Result Date: 01/24/[address] CHEST ABDOMEN PELVIS W CONTRAST Result Date: 01/24/2022 1. No acute intrathoracic abnormality. 2. Left 9th rib lytic lesion has progressed with new lytic lesion in the manubrium. These are likely due to history of multiple myeloma. 3. Large amount of highattenuation fluid/soft tissue in the urinary bladder, concerning for blood products. Underlying lesion would be difficult to exclude. Clinical correlation is recommended. 4. No acute intra-abdominal abnormality. 5. Age-indeterminate fracture of the right L3 transverse process. 6. Diverticulosis without diverticulitis. Physical Examination: Physical Exam Constitutional: General: He is not in acute distress. Appearance: He is ill-appearing. He is not diaphoretic. HENT: Head: Normocephalic and atraumatic. Right Ear: External ear normal. Left Ear: External ear normal. Nose: Nose normal. No congestion. Mouth/Throat: Mouth: Mucous membranes are dry. Pharynx: No oropharyngeal exudate. Eyes: Extraocular Movements: Extraocular movements intact. Pupils: Pupils are equal, round, and reactive to light. Cardiovascular: Rate and Rhythm: Normal rate and regular rhythm. Heart sounds: Murmur heard. Pulmonary: Effort: No accessory muscle usage, prolonged expiration or respiratory distress. Breath sounds: Examination of the right-lower field reveals decreased breath sounds. Examination ofthe left-lower field reveals decreased breath sounds. Decreased breath sounds present. No wheezing or rhonchi. Abdominal: General: There is no distension. Palpations: Abdomen is soft. Tenderness: There is no right CVA tenderness or left CVA tenderness. Musculoskeletal: Cervical back: Neck supple. Right lower leg: No edema. Left lower leg: No edema. Skin: General: Skin is dry. Capillary Refill: Capillary refill takes less than 2 seconds. Coloration: Skin is pale. Neurological: Mental Status: He is alert and oriented to person, place, and time. Motor: No weakness. Psychiatric: Mood and Affect: Mood normal. Behavior: Behavior normal. 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 Appreciate Urology cardiology and oncology recommendations. Hold on mAb, continue plavix. Status post 1 unit RBC 01/24/22 Paroxysmal Afib. Hold xarelto Leukocytosis from possible UTI, zosyn day 4. Cipro on discharge Borderline hypotensive, IV hydration, midodrine History of papilary urothelial carcinoma, Multiple myeloma, Plasmacytoma.. Hold darzalex faspro. Appreciate Oncology recommendations GI prophylaxis. Protonix Continue flomax PT/OT Юлия Larios MD 01/28/2022 10:51 AM * Юлия Larios MD - 01/27/2022 10:09 AM EDT Images from the original note were not included. [facility] Office: [phone] Uziel Santana DO, Vicente Seay DO, Tung Tyler DO, Nhan Alfred DO, Matt Givens MD, Steffany Bragg MD, Davy Munoz MD, Nasima Yoder MD, Kayode Farris MD, Sne Novoa MD, Raj Muñoz DO, Юлия Larios MD, Nic Grider DO, Yovani Craig MD, Kerwin Davis MD, Elliot Santana DO, Tiara Barron MD, Alec Warner MD, Flakita Birmingham MD, Carlos Eduardo Dsouza DO,Elkin Ta MD, Grayson Parrish MD, Chen Kirk CNP, Sugey Milner CNP, Paul Dorsey CNP, William Moulton CNP, Evert Roper PA-C, Sofie Machado, DNP, Carmelina Ayers, HEALTH TEACHER, Lisette Wong, HEALTH TEACHER, Beth Ann, HEALTH TEACHER, Ely Lee, HEALTH TEACHER, Becka Robbins, HEALTH TEACHER, Urmila Oseguera, ENTRY LEVEL STAFF ACCOUNTANT, Candis Atkinson, CAROL,Milagros Marcos, NOBLE, Swetha Flores, NOBLE, Liv Azul, NOBLE [facility] IN-PATIENT SERVICE [facility] Progress Note 01/27/2022 10:09 AM Name: Missy Salgado Acct: [id number] Room: Day: 3 Admit Date: 01/24/2022 5:57 PM PCP: Adair Noonan Code Status: Full Code Subjective: C/C: Chief Complaint Patient presents with Loss of Consciousness Hematuria Interval History Status: improved. Patient seen and examined in chair. Doing well. Folley removed. Feeling better. Having some clots last night but has decreased. 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 Patient was evaluated in [facility]. Was found to be pulseless and arrested requiring lifeflight to [facility]. Patient was transfused 1 unit RBC prior to arrival due to drop in Hb. Patient being evaluated by urology, Hematology oncology, and Cardiology. Review of Systems: Review of Systems Constitutional: Negative for chills, diaphoresis, fatigue and fever. HENT: Negative for congestion, drooling, rhinorrhea and sore throat. Eyes: Negative for photophobia and discharge. Respiratory: Negative for apnea, cough and shortness of breath. Cardiovascular: Negative for chest pain, palpitations and leg swelling. Genitourinary: Positive for hematuria. Negative for dysuria, penile swelling and testicular pain. Musculoskeletal: Negative for arthralgias and neck pain. Skin: Positive for pallor. Negative for color change and rash. Neurological: Negative for dizziness, syncope and weakness. Hematological: Negative for adenopathy. Bruises/bleeds easily. Psychiatric/Behavioral: Negative for agitation and confusion. Medications: Allergies: Allergies Allergen Reactions Statins Muscle stiffness Current Meds: Scheduled Meds: heparin (porcine) 5,000 Units SubCUTAneous 3 times per day tamsulosin 0.4 mg Oral Daily midodrine 10 mg Oral TID WC calcium elemental 500 mg Oral BID lactobacillus 1 capsule Oral Daily with breakfast piperacillin-tazobactam 3,375 mg IntraVENous Q8H clopidogrel 75 mg Oral Daily pantoprazole 40 mg Oral QAM AC sodium chloride flush 5-40 mL IntraVENous 2 times per day Continuous Infusions: sodium chloride 75 mL/hr at 01/26/22 0609 sodium chloride PRN Meds: sodium chloride flush, sodium chloride, potassium chloride OR potassium alternative oral replacement OR potassium chloride, magnesium sulfate, ondansetron OR ondansetron, polyethylene glycol, acetaminophen OR acetaminophen, oxybutynin, hyoscyamine, opium-belladonna Data: Past Medical History: has a past medical history of Atrial fibrillation ([facility]), CAD (coronary arterydisease), Cataract, Erectile dysfunction, Macular degeneration, Plasmacytoma ([facility]), and STEMI (ST elevation myocardial infarction) ([facility]). Social History: reports that he quit smoking about 46 years ago. His smoking use included cigarettes. He has quit using smokeless tobacco. He reports current alcohol use of about 7.0 standard drinks per week. He reports that he does not use drugs. Family History: Family History Problem Relation Age of Onset Heart Disease Father Cancer Sister Vitals: BP 122/80 Pulse 80 Temp 98.2 F (36.8 C) (Oral) Resp 18 Ht 6' (1.829 m) Wt 200 lb (90.7 kg) SpO2 98% BMI 27.12 kg/m Temp (24hrs), Av.6 F (37 C), Min:98.2 F (36.8 C), Max:99.2 F (37.3 C) No results for input(s): POCGLU in the last 72 hours. I/O (24Hr): Intake/Output Summary (Last 24 hours) at 01/27/2022 1009 Last data filed at 01/27/2022 0800 Gross per 24 hour Intake 660 ml Output 3750 ml Net -3090 ml Labs: Hematology: Recent Labs 01/24/22 1305 01/24/22 1530 01/25/22 0430 01/26/22 0850 01/27/22 0630 WBC 22.1* < > 18.1* 15.2* 10.7 RBC 3.77* < > 2.95* 3.13* 2.57* HGB 13.5 < > 10.5* 10.7* 9.0* HCT 40.6* < > 30.8* 32.5* 27.0* MCV 107.7* < > 104.4* 103.8* 105.1* MCH 35.8* < > 35.6* 34.2* 35.0* MCHC 33.3 < > 34.1 32.9 33.3 RDW 12.6 < > 18.7* 17.4* 17.2* PLT 260 < > 232 98* 200 MPV 10.5 -- 11.5 11.1 10.8 INR 1.3 -- 0.9 -- -- < > = values in this interval not displayed. Chemistry: Recent Labs 01/24/22 1305 01/24/22 1334 01/24/22 2118 01/24/22 2119 01/25/22 0430 01/25/22 0843 01/25/22 1208 01/25/22 1619 01/26/22 0850 01/27/22 0630 NA -- < > -- -- 136 -- -- 133* 141 144 K -- < > -- -- 4.6 -- -- 4.4 4.4 4.3 CL -- < > -- -- 105 -- -- 102 109* 112* CO2 -- < > -- -- 19* -- -- 22 18* 23 GLUCOSE -- < > -- -- 140* -- -- 103* 97 92 BUN -- < > -- -- 27* -- -- 25* 20 13 CREATININE -- < > -- -- 1.08 -- -- 1.23* 1.26* 1.18 MG 2.0 -- -- -- -- -- -- -- -- -- ANIONGAP -- < > -- -- 12 -- -- 9 14 9 LABGLOM -- < > -- -- >60 -- -- 57* 55* 60* GFRAA -- < > -- -- >60 -- -- >60 >60 >60 CALCIUM -- < > -- -- 7.7* -- -- 8.3* 8.5* 8.3* PHOS 2.8 -- -- -- -- -- -- -- -- -- TROPHS -- < > -- < > 15 18 15 -- -- -- LACTACIDWB -- -- 2.4* -- -- -- -- 2.5* -- -- < > = values in this interval not displayed. Recent Labs 01/24/22 1334 01/26/22 0850 01/27/22 0630 PROT 6.1* 5.5* -- LABALBU 3.8 3.4* -- TSH -- -- 3.20 AST 19 29 -- ALT 12 13 -- ALKPHOS 83 69 -- BILITOT 0.33 0.55 -- ABG:No results found for: POCPH, PHART, PH, POCPCO2, MCB6ZPK, PCO2, POCPO2, PO2ART, PO2, POCHCO3, KQR8XGJ, HCO3, NBEA, PBEA, BEART, BE, THGBART, THB, LQS3KIJ, GICH3YWN, S1SHBVTV, O2SAT, FIO2 Lab Results Component Value Date/Time SPECIAL LAC 20 ML 01/24/2022 01:10 PM Lab Results Component Value Date/Time CULTURE NO GROWTH 3 DAYS 01/24/2022 01:10 PM Radiology: CT Head W/O Contrast Result Date: 01/24/2022 Moderate central and cortical cerebral atrophy. Mild chronic deep white matter ischemic changes No acute intracranial abnormalities are noted. XR CHEST PORTABLE Result Date: 01/24/[address] CHEST ABDOMEN PELVIS W CONTRAST Result Date: 01/24/2022 1. No acute intrathoracic abnormality. 2. Left 9th rib lytic lesion has progressed with new lytic lesion in the manubrium. These are likely due to history of multiple myeloma. 3. Large amount of highattenuation fluid/soft tissue in the urinary bladder, concerning for blood products. Underlying lesion would be difficult to exclude. Clinical correlation is recommended. 4. No acute intra-abdominal abnormality. 5. Age-indeterminate fracture of the right L3 transverse process. 6. Diverticulosis without diverticulitis. Physical Examination: Physical Exam Constitutional: General: He is not in acute distress. Appearance: He is ill-appearing. He is not diaphoretic. HENT: Head: Normocephalic and atraumatic. Right Ear: External ear normal. Left Ear: External ear normal. Nose: Nose normal. No congestion. Mouth/Throat: Mouth: Mucous membranes are dry. Pharynx: No oropharyngeal exudate. Eyes: Extraocular Movements: Extraocular movements intact. Pupils: Pupils are equal, round, and reactive to light. Cardiovascular: Rate and Rhythm: Normal rate and regular rhythm. Heart sounds: Murmur heard. Pulmonary: Effort: No accessory muscle usage, prolonged expiration or respiratory distress. Breath sounds: Examination of the right-lower field reveals decreased breath sounds. Examination ofthe left-lower field reveals decreased breath sounds. Decreased breath sounds present. No wheezing or rhonchi. Abdominal: General: There is no distension. Palpations: Abdomen is soft. Tenderness: There is no right CVA tenderness or left CVA tenderness. Musculoskeletal: Cervical back: Neck supple. Right lower leg: No edema. Left lower leg: No edema. Skin: General: Skin is dry. Capillary Refill: Capillary refill takes less than 2 seconds. Coloration: Skin is pale. Neurological: Mental Status: He is alert and oriented to person, place, and time. Motor: Weakness present. Psychiatric: Mood and Affect: Mood normal. Behavior: Behavior normal. 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 Appreciate Urology cardiology and oncology recommendations. Hold on mAb, continue plavix. Status post 1 unit RBC 01/24/22 Paroxysmal Afib. Hold xarelto, sinus rhythm, has been off lopresor due to diziness as outapatient Leukocytosis. Unclear etiology. Zosyn. Follow up cultures Borderline hypotensive, IV hydration, midodrine History of papilary urothelial carcinoma, Multiple myeloma, Plasmacytoma.. Hold darzalex faspro. Appreciate Oncology recommendations GI prophylaxis. Protonix Continue flomax Try heparin subcutaneous today , if tolerating may try to resume xarelto Follow up new iron panel, prior results concerning for possibly being drawn at same time as blood infusion PT/OT Юлия Larios MD 01/27/2022 10:09 AM * Perla Feliz, PT - 01/27/2022 9:46 AM EDT Physical Therapy Facility/Department: [facility] Physical Therapy Initial Assessment Name: Missy Salgado : 1940 Date of Service: 01/27/2022 Chief Complaint Patient presents with Loss of Consciousness Hematuria Hematuria, h/o low grade papillary urothelial cancer Cardiac arrest, 10 s, ROSC after CPR Elevated troponin - down trended and likely due to NAREN and Hb drop H/O CAD s/ p PCI to RCA and LAD, On plavix H/O atrial fibrillation, on AC with xarelto H/O low grade papillary urothelial cancer HTN HLD H/O multiple myeloma, received chemotherapy for the same Discharge Recommendations: Patient would benefit from continued therapy after discharge, Therapy recommended at discharge PT Equipment Recommendations Equipment Needed: Yes Mobility Devices: Walker Walker: Rolling Patient Diagnosis(es): The primary encounter diagnosis was Hematuria, unspecified type. A diagnosisof Loss of consciousness (HCC) was also pertinent to this visit. Past Medical History: has a past medical history of Atrial fibrillation (HCC), CAD (coronary arterydisease), Cataract, Erectile dysfunction, Macular degeneration, Plasmacytoma (HCC), and STEMI (ST elevation myocardial infarction) (HCC). Past Surgical History: has a past surgical history that includes hernia repair (2007); cyst removal(2005); knee surgery; bone marrow biopsy (12/01/2010); lumbar laminectomy (12/30/2010); Colonoscopy(08/29/2007); Cataract removal with implant; Eye surgery (05/07/2013); Coronary angioplasty with stent (02/24/2014); Inguinal hernia repair (Left); bladder tumor excision (05/26/2018); pr cystourethroscopy,fulgur 2-5cm lesn (N/A, 05/26/2018); Cystoscopy (12/30/2018); Cystoscopy (N/A, 12/30/2018); knee surgery (Right); Cystocopy (04/21/2019); Cystoscopy (N/A, 04/21/2019); Cystoscopy (09/20/2020); Cystoscopy (N/A, 09/20/2020); hernia repair; Coronary angioplasty with stent (04/25/2021); Coronary angioplasty with stent (05/23/2021); Bladder surgery (01/10/2022); and Cystoscopy (N/A, 01/10/2022). Assessment Body Structures, Functions, Activity Limitations Requiring Skilled Therapeutic Intervention: Decreased functional mobility ;Decreased ADL status;Decreased body mechanics;Decreased safe awareness;Decreased endurance;Decreased balance Assessment: Pt presents with general weakness, deconditioning baseline balance deficits and new ribpain. Pt able to stand and ambulate with CGA, demonstrates balance deficits with recommendation to continue use of walker pending further balance training and strengthening Therapy Prognosis: Good Decision Making: Medium Complexity Clinical Presentation: evolving Requires PT Follow-Up: Yes Activity Tolerance Activity Tolerance: Patient limited by endurance Activity Tolerance Comments: note frequent rest breaks needed \2/2 increased HR Plan Plan Plan: (5-6x/wk) Current Treatment Recommendations: Strengthening, Balance training, Functional mobility training, Transfer training, Endurance training, Therapeutic activities Restrictions Restrictions/Precautions Restrictions/Precautions: Modified Diet, General Precautions, Up as Tolerated, Other (comment) Required Braces or Orthoses?: No Position Activity Restriction Other position/activity restrictions: Up with assist Subjective General Additional Pertinent Hx: LOL , hematuria Response To Previous Treatment: Not applicable Family / Caregiver Present: No Follows Commands: Within Functional Limits Other (Comment): Pt awake and alert in agreement with PT intervention General Comment Comments: Okay per RN to see Subjective Subjective: Pt report mild rib pain, on left side, eager to participate Social/Functional History Social/Functional History Lives With: Spouse Type of Home: House Home Layout: One level Home Access: Stairs to enter with rails Entrance Stairs - Number of Steps: 2 Entrance Stairs - Rails: Left Bathroom Shower/Tub: Walk-in shower Bathroom Equipment: Built-in shower seat, Grab bars in shower Bathroom Accessibility: Accessible Home Equipment: Walker, rolling, Cane Has the patient had two or more falls in the past year or any fall with injury in the past year?: Yes (Pt report long history of dizziness with position changes) Receives Help From: Family ADL Assistance: Independent Homemaking Assistance: Independent Homemaking Responsibilities: No Ambulation Assistance: Independent Transfer Assistance: Independent Active Charging Manipulator: Yes Mode of Transportation: Car Occupation: Retired 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[employer], 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 , 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 Additional Comments: Pt report baseline independence with functional mobilty Vision/Hearing Vision Vision: Impaired (right eye macular degeneration) Tracking: R eye does not track laterally Hearing Hearing: Within functional limits Cognition Orientation Overall Orientation Status: Within Normal Limits Orientation Level: Oriented X4;Oriented to place;Oriented to time;Oriented to situation;Oriented toperson Cognition Overall Cognitive Status: WFL Cognition Comment: Pt able to make need known, report baseline cognition Objective Heart Rate Source: Monitor BP: 123/78 BP Location: Right upper arm BP Method: Manual Patient Position: Semi fowlers MAP (Calculated): 93 Resp: 16 Observation/Palpation Posture: Good Observation: Normal Posture and motor planning Gross Assessment AROM: Generally decreased, functional PROM: Generally decreased, functional Strength: Generally decreased, functional Coordination: Generally decreased, functional Tone: Normal Sensation: Intact AROM RLE (degrees) RLE AROM: WFL AROM LLE (degrees) LLE AROM : WFL AROM RUE (degrees) RUE AROM : WFL AROM LUE (degrees) LUE AROM : WFL Strength RLE Strength RLE: WFL Strength LLE Strength LLE: WFL Strength RUE Strength RUE: WFL Strength LUE Strength LUE: WFL Strength Other Other: Pt demonstrates general weakness and deconditioning Bed mobility Bridging: Independent Rolling to Left: Independent Rolling to Right: Independent Supine to Sit: Independent Sit to Supine: Independent Scooting: Independent Transfers Sit to Stand: Stand by assistance Stand to sit: Stand by assistance Bed to Chair: Stand by assistance Ambulation Surface: level tile Device: Rolling Walker Assistance: Contact guard assistance Distance: 60 ft within room, slow guarded noted increased HR Comments: Pt educated on pacing and activity tolerance with mobilty More Ambulation?: No Balance Posture: Good Sitting - Static: Good Sitting - Dynamic: Good Standing - Static: Good;- Standing - Dynamic: Fair;+ Comments: recommend use of rolling walker with gait and transfers Functional Reach Test Fall Risk (Score of <10 inches is fall risk): Yes Exercise Treatment: Pt able to sit unsupported at EOB x 10 min, sit <> stand x 4 AM-PAC Score [facility] Inpatient Mobility Raw Score : 18 (01/27/221538) [facility] Inpatient T-Scale Score : 43.63 (01/27/221538) Mobility Inpatient CMS 0-100% Score: 46.58 (01/27/221538) Mobility Inpatient CMS G-Code Modifier : CK (01/27/221538) Goals Short Term Goals Time Frame for Short term goals: 7 visits Short term goal 1: ambualte 100 ft with RW SBA demonstrating pacing activity Short term goal 2: pt to transfer from alternate surface heights with MOD I Short term goal 3: pt to tolerate 30 min ther ex/activity as tolerated to increase general endurance and activity tolerance. Weaver Apprentice Goals Time Frame for shelter goals : 14 visits pack out operator goal 1: ambulate 200 ft least AD stable vitals SBA pack out operator goal 2: ascend /descend 4 steps SBA Patient Goals Patient goals : to return home Education Patient Education Education Given To: Patient Education Provided: Role of Therapy;Plan of Care;Precautions;Orientation Education Provided Comments: due to pt complaint of weakness and baseline balance deficits pt demonstrates increased fall risk, pt educated on use of walker for safety and increased stabiltiy Education Method: Demonstration Education Outcome: Verbalized understanding Therapy Time Individual Concurrent Group Co-treatment Time In 918 Time Out 1030 Minutes 71 Timed Code Treatment Minutes: 39 Minutes Perla Feliz, PT * Kayce Britton, [place]IANA - HEALTH TEACHER - 01/27/2022 8:50 AM EDT Images from the original note were not included. [employer] Progress Note Date: 01/27/2022 Patient name: Missy Salgado Date of admission: 01/24/2022 5:57 PM Date of : 1940 PCP: Adair Noonan Reason for Admission: Loss of consciousness (HCC) [R40.20] Gross hematuria [R31.0] Hematuria, unspecified type [R31.9] Subjective: Clinical Changes / Abnormalities:Pt seen and examined in the room. Pt denies any chest pain or sob.BP stable today. Pang out this am. Medications: Scheduled Meds: metoprolol tartrate 12.5 mg Oral BID tamsulosin 0.4 mg Oral Daily midodrine 10 mg Oral TID WC calcium elemental 500 mg Oral BID lactobacillus 1 capsule Oral Daily with breakfast piperacillin-tazobactam 3,375 mg IntraVENous Q8H clopidogrel 75 mg Oral Daily pantoprazole 40 mg Oral QAM AC sodium chloride flush 5-40 mL IntraVENous 2 times per day Continuous Infusions: sodium chloride 75 mL/hr at 01/26/22 0609 sodium chloride CBC: Recent Labs 01/25/22 0430 01/26/22 0850 01/27/22 0630 WBC 18.1* 15.2* 10.7 HGB 10.5* 10.7* 9.0* PLT 232 98* 200 BMP: Recent Labs 01/25/22 1619 01/26/22 0850 01/27/22 0630 NA 133* 141 144 K 4.4 4.4 4.3 CL 102 109* 112* CO2 22 18* 23 BUN 25* 20 13 CREATININE 1.23* 1.26* 1.18 GLUCOSE 103* 97 92 Hepatic: Recent Labs 01/24/22 1334 01/26/22 0850 AST 19 29 ALT 12 13 BILITOT 0.33 0.55 ALKPHOS 83 69 Troponin: Recent Labs 01/25/22 0430 01/25/22 0843 01/25/22 1208 TROPHS 15 18 15 BNP: No results for input(s): BNP in the last 72 hours. Lipids: No results for input(s): CHOL, HDL in the last 72 hours. Invalid input(s): LDLCALCU INR: Recent Labs 01/24/22 1305 01/25/22 0430 INR 1.3 0.9 Diagnostics: EKG: Pending ECHO: 04/27/2021 Left ventricle is normal in size. Global left ventricular systolic function appears low normal. Calculated EF via Torres's method is 50 %. Trivial tricuspid regurgitation. Trivial pulmonic insufficiency. Stress Test: not obtained. Cardiac Angiography: 04/22/21 Patent LCX stent (from 5 years ago) LAD has 40%n proximal stenosis RCA, dominant with 100% stenosis, required PTCA -BMS of distal RCA and proximal RPL branch (Due to bladder cancer and needs for surgery), LV gram was not done due to renal fiunction Recommendations Post IN and stent protocol Will not be clear for any surgery for at least 4 weeks. 04/25/2021 Procedure Summary Distal RCA and RPL stent thrombosis. Successful angioplasty only of distal RCA previously placed stent and RPL stent. Significant disease of proximal LAD. LVEF 55%. Recommendations Medical therapy as needed. Risk factor modification. Routine Post Stent Orders. Review films in CT surgery conference for high risk PCI of LAD. 05/23/21 Procedure Summary Successful Shock wave treatment of mid and proximal LAD Successful PTCA -JOSE mid and proximal LAD Recommendations Post stent protocol Objective: Vitals: BP 122/80 Pulse 80 Temp 98.2 F (36.8 C) (Oral) Resp 18 Ht 6' (1.829 m) Wt 200 lb (90.7 kg) SpO2 98% BMI 27.12 kg/m General appearance: alert and cooperative with exam HEENT: Head: Normocephalic, no lesions, without obvious abnormality. Neck: no JVD, trachea midline, no adenopathy Lungs: Clear to auscultation Heart: Regular rate and rhythm, s1/s2 auscultated, no murmurs Abdomen: soft, non-tender, bowel sounds active Extremities: no edema Neurologic: not done Assessment / Acute Cardiac Problems: Hematuria, h/o low grade papillary urothelial cancer Cardiac arrest, 10 s, ROSC after CPR Elevated troponin - down trended and likely due to NAREN and Hb drop H/O CAD s/ p PCI to RCA and LAD, On plavix H/O atrial fibrillation, on AC with xarelto H/O low grade papillary urothelial cancer HTN HLD H/O multiple myeloma, received chemotherapy for the same Patient Active Problem List: Myeloma (HCC) Penile lump History of colon polyps Peyronie's disease Erectile dysfunction Elevated PSA 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 Hx of afib. Xarelto on hold due to hematuria. Discussed with IM. On midodrine [employer] [facility]. [phone] * Karime Weaver MD - 01/26/2022 3:53 PM EDT Images from the original note were not included. _ Today's Date: 01/26/2022 Patient Name: Missy Salgado Date of admission: 01/24/2022 5:57 PM Patient's age: 81 y.o., 1940 Admission Dx: Loss of consciousness (HCC) [R40.20] Gross hematuria [R31.0] Hematuria, unspecified type [R31.9] Requesting Physician: No admitting provider for patient encounter. CHIEF COMPLAINT: Loss of consciousness. Gross hematuria. Consult for multiple myeloma. SUBJECTIVE: . Was seen and examined. No events overnight. No chest pain. No back pain. No fever. No other complaints. BRIEF CASE HISTORY: The patient is a 81 y.o. male who is admitted to the hospital for further management of hematuria and loss of consciousness secondary to pulseless electrical activities. Patient is receiving care by primary team and other specialists. We have been consulted because of underlying history of multiple myeloma. Patient received multiple lines of treatment for multiple myeloma and recently receiving Darzalex. Last treatment was 01/22/2022. Patient has no fever. No active bleeding. Past Medical History: has a past medical history of Atrial fibrillation (HCC), CAD (coronary arterydisease), Cataract, Erectile dysfunction, Macular degeneration, Plasmacytoma (HCC), and STEMI (ST elevation myocardial infarction) (HCC). Past Surgical History: has a past surgical history that includes hernia repair (2007); cyst removal(2005); knee surgery; bone marrow biopsy (12/01/2010); lumbar laminectomy (12/30/2010); Colonoscopy(08/29/2007); Cataract removal with implant; Eye surgery (05/07/2013); Coronary angioplasty with stent (02/24/2014); Inguinal hernia repair (Left); bladder tumor excision (05/26/2018); pr cystourethroscopy,fulgur 2-5cm lesn (N/A, 05/26/2018); Cystoscopy (12/30/2018); Cystoscopy (N/A, 12/30/2018); knee surgery (Right); Cystocopy (04/21/2019); Cystoscopy (N/A, 04/21/2019); Cystoscopy (09/20/2020); Cystoscopy (N/A, 09/20/2020); hernia repair; Coronary angioplasty with stent (04/25/2021); Coronary angioplasty with stent (05/23/2021); Bladder surgery (01/10/2022); and Cystoscopy (N/A, 01/10/2022). Family History: family history includes Cancer in his sister; Heart Disease in his father. Social History: reports that he quit smoking about 46 years ago. His smoking use included cigarettes. He has quit using smokeless tobacco. He reports current alcohol use of about 7.0 standard drinks per week. He reports that he does not use drugs. Medications: Prior to Admission medications Medication Sig Start Date End Date Taking? Authorizing Provider Multiple Vitamins-Minerals (PRESERVISION AREDS PO) Take 2 tablets by mouth daily Historical Provider, meclizine (ANTIVERT) 25 MG tablet Take 25 mg by mouth 3 times daily as needed Patient not taking: No sig reported Historical Provider, sildenafil (VIAGRA) 100 MG tablet TAKE 1 TABLET BY MOUTH ONCE DAILY NEEDED Patient not taking: Reported on 01/24/2022 11/15/21 Historical Provider, daratumumab (DARZALEX) chemo injection Infuse 16 mg/kg intravenously once Historical Provider, DEXAMETHASONE PO Take by mouth 5 tabs on Saturday Historical Provider, acyclovir (ZOVIRAX) 400 MG tablet Take 1 tablet by mouth 2 times daily Patient not taking: No sig reported 12/20/20 Nic Garcia MD metoprolol tartrate (LOPRESSOR) 25 MG tablet Take 25 mg by mouth 2 times daily Patient takes 1/2 tablet twice daily. Patient not taking: No sig reported Historical Provider, clopidogrel (PLAVIX) 75 MG tablet Take 1 tablet by mouth daily 05/26/20 Huong Richards, JEWEL FLAT SURFACER -HEALTH TEACHER rivaroxaban (XARELTO) 20 MG TABS tablet Take 20 mg by mouth Historical Provider, calcium carbonate (OSCAL) 500 MG TABS tablet Take 500 mg by mouth 2 times daily Historical Provider, Probiotic Product (ALIGN PO) Take by mouth daily Historical Provider, Current Facility-Administered Medications Medication Dose Route Frequency Provider Last Rate Last Admin tamsulosin (FLOMAX) capsule 0.4 mg 0.4 mg Oral Daily Юлия Larios MD 0.4 mg at 01/26/22 1345 midodrine (PROAMATINE) tablet 10 mg 10 mg Oral TID WC Юлия Larios MD 10 mg at 01/26/22 1730 calcium elemental (OSCAL) tablet 500 mg 500 mg Oral BID Юлия Larios MD 500 mg at 01/26/22 0829 lactobacillus (CULTURELLE) capsule 1 capsule 1 capsule Oral Daily with breakfast Юлия Larios MD 1 capsule at 01/26/22 0829 0.9 % sodium chloride infusion IntraVENous Continuous Юлия Larios MD 75 mL/hr at 01/26/22 0609 New Bag at 01/26/22 0609 piperacillin-tazobactam (ZOSYN) 3,375 mg in dextrose 5 % 50 mL IVPB extended infusion (mini-bag) 3,375 mg IntraVENous Q8H Юлия Larios MD Stopped at 01/26/22 1745 clopidogrel (PLAVIX) tablet 75 mg 75 mg Oral Daily Keysha Briceño MD 75 mg at 01/26/22 0829 pantoprazole (PROTONIX) tablet 40 mg 40 mg Oral QAM AC Юлия Larios MD 40 mg at 01/26/22 0609 sodium chloride flush 0.9 % injection 5-40 mL 5-40 mL IntraVENous 2 times per day Lisette R Wong, JEWEL FLAT 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 AND OUTREACH ASSISTANT 10 mL at 01/25/22 2133 sodium chloride flush 0.9 % injection 10 mL 10 mL IntraVENous PRN Lisette R Wong, JEWEL FLAT 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 AND OUTREACH ASSISTANT 0.9 % sodium chloride infusion IntraVENous PRN Lisette R Wong, JEWEL FLAT 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 AND OUTREACH ASSISTANT potassium chloride (KLOR-CON M) extended release tablet 40 mEq 40 mEq Oral PRN Lisette R Wong, JEWEL FLAT SURFACER- RECRUITMENT AND OUTREACH ASSISTANT Or potassium bicarb-citric acid (EFFER-K) effervescent tablet 40 mEq 40 mEq Oral PRN Lisette R Wong, JEWEL FLAT 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 AND OUTREACH ASSISTANT Or potassium chloride 10 mEq/100 mL IVPB (Peripheral Line) 10 mEq IntraVENous PRN Lisette R Wong, JEWEL FLAT SURFACER- RECRUITMENT AND OUTREACH ASSISTANT magnesium sulfate 1000 mg in dextrose 5% 100 mL IVPB 1,000 mg IntraVENous PRN Lisette R Wong, JEWEL FLAT 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 AND OUTREACH ASSISTANT ondansetron (ZOFRAN-ODT) disintegrating tablet 4 mg 4 mg Oral Q8H PRN Lisette R Wong, JEWEL FLAT 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 AND OUTREACH ASSISTANT Or ondansetron (ZOFRAN) injection 4 mg 4 mg IntraVENous Q6H PRN Lisette R Wong, JEWEL FLAT 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 AND OUTREACH ASSISTANT polyethylene glycol (GLYCOLAX) packet 17 g 17 g Oral Daily PRN Lisette R Wong, JEWEL FLAT 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 AND OUTREACH ASSISTANT acetaminophen (TYLENOL) tablet 650 mg 650 mg Oral Q6H PRN Lisette R Wong, JEWEL FLAT 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 AND OUTREACH ASSISTANT Or acetaminophen (TYLENOL) suppository 650 mg 650 mg Rectal Q6H PRN Lisette R Wong, JEWEL FLAT 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 AND OUTREACH ASSISTANT oxybutynin (DITROPAN-XL) extended release tablet 5 mg 5 mg Oral Daily PRN Kayleen Jason, DO hyoscyamine (LEVSIN/SL) sublingual tablet 125 mcg 125 mcg SubLINGual Q4H PRN Kayleen Jason, DO opium-belladonna (B&O SUPPRETTES) 16.2-60 MG suppository 60 mg 60 mg Rectal Q8H PRN Kayleen Jason, DO Allergies: Statins REVIEW OF SYSTEMS: General: No weakness or fatigue. No unanticipated weight loss or decreased appetite. No fever or chills. Eyes: No blurred vision, eye pain or double vision. Ears: No hearing problems or drainage. No tinnitus. Throat: No sore throat, problems with swallowing or dysphagia. Respiratory: No cough, sputum or hemoptysis. No shortness of breath. No pleuritic chest pain. Cardiovascular: As above. Gastrointestinal: No problems with swallowing. No abdominal pain or bloating. No nausea or vomiting. No diarrhea or constipation. No GI bleeding. Genitourinary: As above.. Musculoskeletal: No muscle aches or pains. No limitation of movement. No back pain. No gait disturbance, No joint complaints. Dermatologic: No skin rashes or pruritus. No skin lesions or discolorations. Psychiatric: No depression, anxiety, or stress or signs of schizophrenia. No change in mood or affect. Hematologic: No history of bleeding tendency. No bruises or ecchymosis. No history of clotting problems. Infectious disease: No fever, chills or frequent infections. Endocrine: No polydipsia or polyuria. No temperature intolerance. Neurologic: No headaches or dizziness. No weakness or numbness of the extremities. No changes in balance, coordination, memory, mentation, behavior. Allergic/Immunologic: No nasal congestion or hives. No repeated infections. PHYSICAL EXAM: BP 105/67 Pulse 90 Temp 98.2 F (36.8 C) (Oral) Resp 16 Ht 6' (1.829 m) Wt 200 lb (90.7 kg) SpO2 97% BMI 27.12 kg/m Temp (24hrs), Av.3 F (36.8 C), Min:98 F (36.7 C), Max:99.2 F (37.3 C) General appearance - not in pain or distress Mental status - alert and oriented Eyes - pupils equal and reactive, extraocular eye movements intact Ears - bilateral TM's and external ear canals normal Nose - normal and patent, no erythema, discharge or polyps Mouth - mucous membranes moist, pharynx normal without lesions Neck - supple, no significant adenopathy Lymphatics - no palpable lymphadenopathy, no hepatosplenomegaly Chest - clear to auscultation, no wheezes, rales or rhonchi, symmetric air entry Heart - normal rate, regular rhythm, normal S1, S2, no murmurs, rubs, clicks or gallops Abdomen - soft, nontender, nondistended, no masses or organomegaly Neurological - alert, oriented, normal speech, no focal findings or movement disorder noted Musculoskeletal - no joint tenderness, deformity or swelling Extremities - peripheral pulses normal, no pedal edema, no clubbing or cyanosis Skin - normal coloration and turgor, no rashes, no suspicious skin lesions noted DATA: Labs: CBC: Recent Labs 01/25/22 0430 01/26/22 0850 WBC 18.1* 15.2* HGB 10.5* 10.7* HCT 30.8* 32.5* PLT 232 98* BMP: Recent Labs 01/25/22 1619 01/26/22 0850 NA 133* 141 K 4.4 4.4 CO2 22 18* BUN 25* 20 CREATININE 1.23* 1.26* LABGLOM 57* 55* GLUCOSE 103* 97 PT/INR: Recent Labs 01/24/22 1305 01/25/22 0430 PROTIME 15.7* 10.0 INR 1.3 0.9 APTT: Recent Labs 01/24/22 1305 APTT 25.6* LIVER PROFILE: Recent Labs 01/24/22 1334 01/26/22 0850 AST 19 29 ALT 12 13 LABALBU 3.8 3.4* ECHO Complete 2D W Doppler W Color Transthoracic Echocardiography Report (TTE) Patient Name NAOMI LOUIS Date of Study 01/26/2022 M Date of 1940 Gender Male Age 81 year(s) Race Room Number 2021 Height: 72 inch, 182.88 cm Corporate ID [id number] Weight: 198 pounds, 89.8 kg # Patient Acct [id number] BSA: 2.12 m^2 BMI: 26.85 kg/m^2 # MR # [id number] [employer] Machine 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 Procedure Date Date: 01/26/2022 Start: 02:38 PM Study Location: [facility] Technical Quality: Fair visualization Indications:Atrial fibrillation, Cardiac arrest and Coronary artery disease. History / Tech. Comments: Procedure explained to patient. Study done at the bedside. Patient Status: Inpatient Height: 72 inches Weight: 198 pounds BSA: 2.12 m^2 BMI: 26.85 kg/m^2 HR: 81 bpm Allergies - *Unlisted:(amoxicillan statins). CONCLUSIONS Summary Left ventricle is normal in size. Global left ventricular systolic function is normal. Estimated ejection fraction is 55 % . Calculated EF via 3D Heart Model is 54 %. Mild left ventricular hypertrophy. No obvious wall motion abnormality seen. Normal right ventricular size and function. No significant valvular regurgitation or stenosis seen. Signature FINDINGS Left Atrium Left atrium is normal in size. Left Ventricle Left ventricle is normal in size. Global left ventricular systolic function is normal. Estimated ejection fraction is 55 % . Calculated EF via 3D Heart Model is 54 %. Mild left ventricular hypertrophy. No obvious wall motion abnormality seen. Right Atrium Right atrium is normal in size. Right Ventricle Normal right ventricular size and function. Mitral Valve Normal mitral valve structure. No significant mitral regurgitation. No mitral stenosis. Aortic Valve Aortic valve structure and function normal. Aortic valve is trileaflet. No aortic insufficiency. No aortic stenosis. Tricuspid Valve Normal tricuspid valve leaflets. No significant tricuspid regurgitation. No tricuspid stenosis. Insignificant tricuspid regurgitation, unable to estimate RVSP. Pulmonic Valve Pulmonic valve is normal in structure and function. No pulmonic insufficiency. No evidence of pulmonic stenosis. Pericardial Effusion No pericardial effusion. Miscellaneous Normal aortic root dimension. The ascending aorta is normal in size. E/E' average = 11.85. IVC normal diameter & inspiratory collapse indicating normal RA filling pressure . M-mode / 2D Measurements & Calculations: LVIDd:4.6 cm(3.7 - 5.6 cm) Diastolic Volume:187 ml LVIDs:3 cm(2.2 - 4.0 cm) Systolic Volume:86 ml IVSd:1.2 cm(0.6 - 1.1 cm) Aortic Root:3.3 cm(2.0 - 3.7 cm) LVPWd:1.3 cm(0.6 - 1.1 cm) LA Dimension: 3.4 cm(1.9 - 4.0 cm) Fractional Shortenin.78 % LA volume/Index: 37.53 ml /18m^2 Calculated LVEF (%): 54.01 % LVOT:2.2 cm RVDd:3.2 cm Mitral: Aortic Valve Area (P1/2-Time): 2.32 cm^2 Peak Velocity: 0.93 m/s Peak E-Wave: 0.81 m/s Mean Velocity: 0.65 m/s Peak A-Wave: 0.79 m/s Peak Gradient: 3.48 mmHg E/A Ratio: 1.02 Mean Gradient: 2 mmHg Peak Gradient: 2.6 mmHg Mean Gradient: 2 mmHg Deceleration Time: 261 msec Area (continuity): 3.76 cm^2 P1/2t: 95 msec AV VTI: 20.7 cm Area (continuity): 2.07 cm^2 Mean Velocity: 0.60 m/s Pulmonic: Peak Velocity: 1.17 m/s Peak Gradient: 5.48 mmHg Diastology / Tissue Doppler Septal Wall E' velocity:0.06 m/s Septal Wall E/E':13 Lateral Wall E' velocity:0.08 m/s Lateral Wall E/E':10.7 IMPRESSION: Primary Problem Gross hematuria Active Hospital Problems Diagnosis Date Noted Cardiac arrest with pulseless electrical activity (HCC) [I46.9] 01/25/2022 Priority: Medium Hematuria [R31.9] 01/25/2022 Priority: Medium Loss of consciousness (HCC) [R40.20] 01/25/2022 Priority: Medium Gross hematuria [R31.0] 01/24/2022 Priority: Medium Paroxysmal atrial fibrillation (HCC) [I48.0] 01/24/2022 Priority: Medium Coronary artery disease involving [place] heart without angina pectoris [I25.10] 01/24/2022 Priority: Medium S/P angioplasty with stent [Z95.820] 05/23/2021 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 Current care for cardiac problem status post cardiac arrest with pulseless electrical activities asper cardiology. Further care for gross hematuria as per urology. Discussed with patient and his further management for his multiple myeloma. Patient is very well-known to us from previous management of his multiple myeloma in [place]. Recently receiving care in oncology in [place] with treatment of myeloma using Darzalex. Last treatment was 2 days ago. We will monitor labs. We will transfuse if needed. No active treatment for multiple myeloma will be given during this hospitalization. Treatment will be resumed following discharge. Karime Weaver MD, MD Karime Wells MD [facility] This note is created with the assistance of a speech recognition program. While intending to generate a document that actually reflects the content of the visit, the document can still have some errors including those of syntax and sound a like substitutions which may escape proof reading. It such instances, actual meaning can be extrapolated by contextual diversion. * Kanika Moody - 01/26/2022 3:29 PM EDT Echo completed at the bedside * Kayce Britton APRN - [facility] - 01/26/2022 1:13 PM EDT Images from the original note were not included. [employer] Progress Note Date: 01/26/2022 Patient name: Missy Salgado Date of admission: 01/24/2022 5:57 PM Date of : 1940 PCP: Adair Noonan Reason for Admission: Loss of consciousness (HCC) [R40.20] Gross hematuria [R31.0] Hematuria, unspecified type [R31.9] Subjective: Clinical Changes / Abnormalities:Pt seen and examined in the room. Pt denies any chest pain or sob.BP stable today. Continues to have hematuria. Medications: Scheduled Meds: tamsulosin 0.4 mg Oral Daily midodrine 10 mg Oral TID WC calcium elemental 500 mg Oral BID lactobacillus 1 capsule Oral Daily with breakfast piperacillin-tazobactam 3,375 mg IntraVENous Q8H clopidogrel 75 mg Oral Daily pantoprazole 40 mg Oral QAM AC sodium chloride flush 5-40 mL IntraVENous 2 times per day Continuous Infusions: sodium chloride 75 mL/hr at 01/26/22 0609 sodium chloride CBC: Recent Labs 01/24/22 1530 01/24/22 1640 01/24/22 2118 01/25/22 0430 01/26/22 0850 WBC 20.1* -- -- 18.1* 15.2* HGB 10.7* < > 11.7* 10.5* 10.7* PLT See Reflexed IPF Result -- -- 232 98* < > = values in this interval not displayed. BMP: Recent Labs 01/25/22 0430 01/25/22 1619 01/26/22 0850 NA 136 133* 141 K 4.6 4.4 4.4 CL 105 102 109* CO2 19* 22 18* BUN 27* 25* 20 CREATININE 1.08 1.23* 1.26* GLUCOSE 140* 103* 97 Hepatic: Recent Labs 01/24/22 1334 01/26/22 0850 AST 19 29 ALT 12 13 BILITOT 0.33 0.55 ALKPHOS 83 69 Troponin: Recent Labs 01/25/22 0430 01/25/22 0843 01/25/22 1208 TROPHS 15 18 15 BNP: No results for input(s): BNP in the last 72 hours. Lipids: No results for input(s): CHOL, HDL in the last 72 hours. Invalid input(s): LDLCALCU INR: Recent Labs 01/24/22 1305 01/25/22 0430 INR 1.3 0.9 Diagnostics: EKG: Pending ECHO: 04/27/2021 Left ventricle is normal in size. Global left ventricular systolic function appears low normal. Calculated EF via Torres's method is 50 %. Trivial tricuspid regurgitation. Trivial pulmonic insufficiency. Stress Test: not obtained. Cardiac Angiography: 04/22/21 Patent LCX stent (from 5 years ago) LAD has 40%n proximal stenosis RCA, dominant with 100% stenosis, required PTCA -BMS of distal RCA and proximal RPL branch (Due to bladder cancer and needs for surgery), LV gram was not done due to renal fiunction Recommendations Post IN and stent protocol Will not be clear for any surgery for at least 4 weeks. 04/25/2021 Procedure Summary Distal RCA and RPL stent thrombosis. Successful angioplasty only of distal RCA previously placed stent and RPL stent. Significant disease of proximal LAD. LVEF 55%. Recommendations Medical therapy as needed. Risk factor modification. Routine Post Stent Orders. Review films in CT surgery conference for high risk PCI of LAD. 05/23/21 Procedure Summary Successful Shock wave treatment of mid and proximal LAD Successful PTCA -JOSE mid and proximal LAD Recommendations Post stent protocol Objective: Vitals: BP 110/73 Pulse 90 Temp 99.2 F (37.3 C) (Oral) Resp 16 Ht 6' (1.829 m) Wt 200 lb (90.7 kg) SpO2 97% BMI 27.12 kg/m General appearance: alert and cooperative with exam HEENT: Head: Normocephalic, no lesions, without obvious abnormality. Neck: no JVD, trachea midline, no adenopathy Lungs: Clear to auscultation Heart: Regular rate and rhythm, s1/s2 auscultated, no murmurs Abdomen: soft, non-tender, bowel sounds active Extremities: no edema Neurologic: not done Assessment / Acute Cardiac Problems: Hematuria, h/o low grade papillary urothelial cancer Cardiac arrest, 10 s, ROSC after CPR Elevated troponin - down trended and likely due to NAREN and Hb drop H/O CAD s/ p PCI to RCA and LAD, On plavix H/O atrial fibrillation, on AC with xarelto H/O low grade papillary urothelial cancer HTN HLD H/O multiple myeloma, received chemotherapy for the same Patient Active Problem List: Myeloma (HCC) Penile lump History of colon polyps Peyronie's disease Erectile dysfunction Elevated PSA 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 Hx of afib. Xarelto on hold due to hematuria. On midodrine [employer] [facility]. [phone] * Юлия Larios MD - 01/26/2022 12:43 PM EDT Images from the original note were not included. [facility] Office: [phone] Uziel Santana DO, Vicente Seay DO, Tung Tyler DO, Nhan Alfred DO, Matt Givens MD, Steffany Bragg MD, Davy Munoz MD, Nasima Yoder MD, Kayode Farris MD, Sen Novoa MD, Raj Muñoz DO, Юлия Larois MD, Nic Grider DO, Yovani Craig MD, Kerwin Davis MD, Elliot Santana DO, Tiara Barron MD, Alec Warner MD, Flakita Birmingham MD, Carlos Eduardo Dsouza DO,Elkin Ta MD, Grayson Parrish MD, Chen Kirk, HEALTH TEACHER, Sugey Milner, HEALTH TEACHER, Paul Dorsey, HEALTH TEACHER, William Moulton, HEALTH TEACHER, Evert Roper PA-C, Sofie Machado, CAROL, Carmelina Ayers, HEALTH TEACHER, Lisette Wong, HEALTH TEACHER, Beth Ann, HEALTH TEACHER, Ely Lee, HEALTH TEACHER, Becka Robbins, HEALTH TEACHER, Urmila Oseguera, ENTRY LEVEL STAFF ACCOUNTANT, Candis Atkinson, CAROL,Milagros Marcos, HEALTH TEACHER, Swetha Flores, HEALTH TEACHER, Liv Azul, HEALTH TEACHER [facility] IN-PATIENT SERVICE [facility] Progress Note 01/26/2022 12:43 PM Name: Missy Salgado Acct: [id number] Room: IP Day: 2 Admit Date: 01/24/2022 5:57 PM PCP: Adair Noonan Code Status: Full Code Subjective: C/C: Chief Complaint Patient presents with Loss of Consciousness Hematuria Interval History Status: improved. Patient seen and examined at bedside. at bedsdie. CBI flow rate decreased, clots decreasing, HB stable. Creatinine stable. 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 Patient was evaluated in [facility]. Was found to be pulseless and arrested requiring lifeflight to [facility]. Patient was transfused 1 unit RBC prior to arrival due to drop in Hb. Patient being evaluated by urology, Hematology oncology, and Cardiology. Review of Systems: Review of Systems Constitutional: Negative for chills, diaphoresis, fatigue and fever. HENT: Negative for congestion, drooling, rhinorrhea and sore throat. Eyes: Negative for photophobia and discharge. Respiratory: Negative for apnea, cough and shortness of breath. Cardiovascular: Negative for chest pain, palpitations and leg swelling. Genitourinary: Positive for hematuria. Negative for dysuria, penile swelling and testicular pain. Musculoskeletal: Negative for arthralgias and neck pain. Skin: Positive for pallor. Negative for color change and rash. Neurological: Negative for dizziness, syncope and weakness. Hematological: Negative for adenopathy. Bruises/bleeds easily. Psychiatric/Behavioral: Negative for agitation and confusion. Medications: Allergies: Allergies Allergen Reactions Statins Muscle stiffness Current Meds: Scheduled Meds: tamsulosin 0.4 mg Oral Daily midodrine 10 mg Oral TID WC calcium elemental 500 mg Oral BID lactobacillus 1 capsule Oral Daily with breakfast piperacillin-tazobactam 3,375 mg IntraVENous Q8H clopidogrel 75 mg Oral Daily pantoprazole 40 mg Oral QAM AC sodium chloride flush 5-40 mL IntraVENous 2 times per day Continuous Infusions: sodium chloride 75 mL/hr at 01/26/22 0609 sodium chloride PRN Meds: sodium chloride flush, sodium chloride, potassium chloride OR potassium alternative oral replacement OR potassium chloride, magnesium sulfate, ondansetron OR ondansetron, polyethylene glycol, acetaminophen OR acetaminophen, oxybutynin, hyoscyamine, opium-belladonna Data: Past Medical History: has a past medical history of Atrial fibrillation ([facility]), CAD (coronary arterydisease), Cataract, Erectile dysfunction, Macular degeneration, Plasmacytoma ([facility]), and STEMI (ST elevation myocardial infarction) ([facility]). Social History: reports that he quit smoking about 46 years ago. His smoking use included cigarettes. He has quit using smokeless tobacco. He reports current alcohol use of about 7.0 standard drinks per week. He reports that he does not use drugs. Family History: Family History Problem Relation Age of Onset Heart Disease Father Cancer Sister Vitals: BP 110/73 Pulse 90 Temp 99.2 F (37.3 C) (Oral) Resp 16 Ht 6' (1.829 m) Wt 200 lb (90.7 kg) SpO2 97% BMI 27.12 kg/m Temp (24hrs), Av.3 F (36.8 C), Min:98 F (36.7 C), Max:99.2 F (37.3 C) No results for input(s): POCGLU in the last 72 hours. I/O (24Hr): Intake/Output Summary (Last 24 hours) at 01/26/2022 1243 Last data filed at 01/26/2022 1234 Gross per 24 hour Intake 2268.47 ml Output 4100 ml Net -1831.53 ml Labs: Hematology: Recent Labs 01/24/22 1305 01/24/22 1530 01/24/22 1640 01/24/228 01/25/22 0430 01/26/22 0850 WBC 22.1* 20.1* -- -- 18.1* 15.2* RBC 3.77* 3.01* -- -- 2.95* 3.13* HGB 13.5 10.7* < > 11.7* 10.5* 10.7* HCT 40.6* 31.4* < > 32.8* 30.8* 32.5* MCV 107.7* 104.3* -- -- 104.4* 103.8* MCH 35.8* 35.5* -- -- 35.6* 34.2* MCHC 33.3 34.1 -- -- 34.1 32.9 RDW 12.6 12.7 -- -- 18.7* 17.4* PLT 260 See Reflexed IPF Result -- -- 232 98* MPV 10.5 -- -- -- 11.5 11.1 INR 1.3 -- -- -- 0.9 -- < > = values in this interval not displayed. Chemistry: Recent Labs 01/24/22 1305 01/24/22 1334 01/24/22 2118 01/24/22 2119 01/25/22 0430 01/25/22 0843 01/25/22 1208 01/25/22 1619 01/26/22 0850 NA -- < > -- -- 136 -- -- 133* 141 K -- < > -- -- 4.6 -- -- 4.4 4.4 CL -- < > -- -- 105 -- -- 102 109* CO2 -- < > -- -- 19* -- -- 22 18* GLUCOSE -- < > -- -- 140* -- -- 103* 97 BUN -- < > -- -- 27* -- -- 25* 20 CREATININE -- < > -- -- 1.08 -- -- 1.23* 1.26* MG 2.0 -- -- -- -- -- -- -- -- ANIONGAP -- < > -- -- 12 -- -- 9 14 LABGLOM -- < > -- -- >60 -- -- 57* 55* GFRAA -- < > -- -- >60 -- -- >60 >60 CALCIUM -- < > -- -- 7.7* -- -- 8.3* 8.5* PHOS 2.8 -- -- -- -- -- -- -- -- TROPHS -- < > -- < > 15 18 15 -- -- LACTACIDWB -- -- 2.4* -- -- -- -- 2.5* -- < > = values in this interval not displayed. Recent Labs 01/24/22 1305 01/24/22 1334 01/26/22 0850 PROT -- 6.1* 5.5* LABALBU -- 3.8 3.4* TSH 3.54 -- -- AST -- 29 ALT -- 12 13 ALKPHOS -- 83 69 BILITOT -- 0.33 0.55 ABG:No results found for: POCPH, PHART, PH, POCPCO2, [id number], PCO2, POCPO2, PO2ART, PO2, POCHCO3, ZGA7ZHP, HCO3, NBEA, PBEA, BEART, BE, THGBART, THB, ONQ3XNY, CGGV2LHY, F2WQCUCV, O2SAT, FIO2 Lab Results Component Value Date/Time SPECIAL LAC 20 ML 01/24/2022 01:10 PM Lab Results Component Value Date/Time CULTURE NO GROWTH 2 DAYS 01/24/2022 01:10 PM Radiology: CT Head W/O Contrast Result Date: 01/24/2022 Moderate central and cortical cerebral atrophy. Mild chronic deep white matter ischemic changes No acute intracranial abnormalities are noted. XR CHEST PORTABLE Result Date: 01/24/[address] CHEST ABDOMEN PELVIS W CONTRAST Result Date: 01/24/2022 1. No acute intrathoracic abnormality. 2. Left 9th rib lytic lesion has progressed with new lytic lesion in the manubrium. These are likely due to history of multiple myeloma. 3. Large amount of highat[place]uation fluid/soft tissue in the urinary bladder, concerning for blood products. Underlying lesion would be difficult to exclude. Clinical correlation is recommended. 4. No acute intra-abdominal abnormality. 5. Age-indeterminate fracture of the right L3 transverse process. 6. Diverticulosis without diverticulitis. Physical Examination: Physical Exam Constitutional: General: He is not in acute distress. Appearance: He is ill-appearing. He is not diaphoretic. HENT: Head: Normocephalic and atraumatic. Right Ear: External ear normal. Left Ear: External ear normal. Nose: Nose normal. No congestion. Mouth/Throat: Mouth: Mucous membranes are dry. Pharynx: No oropharyngeal exudate. Eyes: Extraocular Movements: Extraocular movements intact. Pupils: Pupils are equal, round, and reactive to light. Cardiovascular: Rate and Rhythm: Normal rate and regular rhythm. Heart sounds: Murmur heard. Pulmonary: Effort: No accessory muscle usage, prolonged expiration or respiratory distress. Breath sounds: Examination of the right-lower field reveals decreased breath sounds. Examination ofthe left-lower field reveals decreased breath sounds. Decreased breath sounds present. No wheezing or rhonchi. Abdominal: General: There is no distension. Palpations: Abdomen is soft. Tenderness: There is no right CVA tenderness or left CVA tenderness. Musculoskeletal: Cervical back: Neck supple. Right lower leg: No edema. Left lower leg: No edema. Skin: General: Skin is dry. Capillary Refill: Capillary refill takes less than 2 seconds. Coloration: Skin is pale. Neurological: Mental Status: He is alert and oriented to person, place, and time. Motor: Weakness present. Psychiatric: Mood and Affect: Mood normal. Behavior: Behavior normal. 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 Appreciate Urology cardiology and oncology recommendations. Hold on mAb, Continue CBI, restarted on plavixStatus post 1 unit RBC 01/24/22 Paroxysmal Afib. Hold xarelto, sinus rhythm, hold lopressor Leukocytosis. Unclear etiology. Zosyn. Follow up cultures, follow up Peripheral blood smear Borderline hypotensive, IV hydration, midodrine Lactic acidosis, repeat lactic acid, IV fluids, follow up labs History of papilary urothelial carcinoma, Multiple myeloma, Plasmacytoma.. Hold darzalex faspro. Appreciate Oncology recommendations GI prophylaxis. Protonix Start flomax today Discussed with Юлия Larios MD 01/26/2022 12:43 PM * Kayleen Gomez, - 01/26/2022 7:43 AM EDT Images from the original note were not included. Robert Aaron, Bright Larson Mostafa, Berta Cao Jr Urology Progress Note Subjective: Patient afebrile with stable vital signs Pang clear very light pink on wide open CBI - kept wide open overnight as cardiology started plavix yesterday evening CBI decreased to slow gtt this am, will recheck in afternoon Patient Vitals for the past 24 hrs: BP Temp Temp src Pulse Resp SpO2 Weight 01/26/22 0409 -- -- -- -- -- -- 200 lb (90.7 kg) 01/26/22 0405 103/64 98 F (36.7 C) Axillary 82 16 96 % -- 01/26/22 0100 110/62 -- -- 77 -- 96 % -- 01/26/22 0005 96/60 98.1 F (36.7 C) Oral 85 14 95 % -- 01/25/222051 (!) 103/56 98.2 F (36.8 C) Oral 86 16 97 % -- 01/25/22 1150 114/72 98.2 F (36.8 C) Oral 92 18 97 % -- 01/25/22 0800 97/76 98.4 F (36.9 C) Oral 80 18 96 % -- Intake/Output Summary (Last 24 hours) at 01/26/2022 0743 Last data filed at 01/26/2022 0655 Gross per 24 hour Intake 2208.47 ml Output 4300 ml Net -2091.53 ml Recent Labs 01/24/22 1305 01/24/22 1530 01/24/22 1640 01/24/22 2118 01/25/22 0430 WBC 22.1* 20.1* -- -- 18.1* HGB 13.5 10.7* 9.8* 11.7* 10.5* HCT 40.6* 31.4* 29.9* 32.8* 30.8* MCV 107.7* 104.3* -- -- 104.4* PLT 260 See Reflexed IPF Result -- -- 232 Recent Labs 01/24/22 1305 01/24/22 1334 01/25/22 0430 01/25/22 1619 NA -- 134* 136 133* K -- 4.1 4.6 4.4 CL -- 98 105 102 CO2 -- 19* 22 PHOS 2.8 -- -- -- BUN -- 30* 27* 25* CREATININE -- 1.53* 1.08 1.23* Recent Labs 01/24/22 1330 COLORU Red* PHUR 7.5 WBCUA 2 TO 5 RBCUA GREATER THAN 100 SPECGRAV 1.025* LEUKOCYTESUR INTERPRET WITH CAUTION DUE TO INTENSE COLOR OF URINE.* UROBILINOGEN Normal BILIRUBINUR INTERPRET WITH CAUTION DUE TO INTENSE COLOR OF URINE.* Additional Lab/culture results: Blood cultures no growth 17 hours, urine culture still has not beencollected Physical Exam: General: NAD HEENT: normocephalic, atraumatic Cardiovascular: Acyanotic, pulses palpable Respiratory: nonlabored breathing Abdomen: soft, nontender, nondistended : no SP tenderness of flank pain, Pang in place draining clear very light pink urine on wide open CBI Skin: warm and dry Extremities: no peripheral edema Psych: normal mood and menation Interval Imaging Findings: None Impression: 81-year-old male with gross hematuria Plan: Maintain Pang catheter Hand irrigate as needed every 2 hours to evacuate clots Maintain CBI at lowest titration to maintain clear light pink urine Continue to hold off on Flomax as patient's blood pressure is still quite low, systolic in the low 100s this morning Kayleen Gomez DO 7:43 AM 01/26/2022 * Emely Medina RN - 01/25/2022 5:00 PM EDT Transcription Coordinator spoke to urology and she stated to run CBI wide open since he was given plavix this afternoon * Юлия Larios MD - 01/25/2022 3:32 PM EDT Physician Progress Note PATIENT: [facility] #: [id number] : 1940 ADMIT DATE: 01/24/2022 5:57 PM DISCH DATE: RESPONDING PROVIDER #: ЮЛИЯ LARIOS MD QUERY TEXT: Pt admitted with Gross Hematuria sudden onset at urologist office . Pt noted to have transurethral resection of bladder masses 2 weeks prior and history of a fib and cad with home medications of plavix and xarelto. sudden drop in hgb of 3 grams in 3 hours per ED notes requiring 3 liters of fluids , and PRBC transfusion. started on bladder irrigation . If possible please clarify one of the following: The medical record reflects the following: Risk Factors: surgery, xarelto and plavix at home, Clinical Indicators: admitted with Gross Hematuria sudden onset at urologist office . Pt noted to have transurethral resection of bladder masses 2 weeks prior and history of a fib and cad with home medications of plavix and xarelto. sudden drop in hgb of 3 grams in 3 hours per ED notes requiring 3 liters of fluids , and PRBC transfusion. started on bladder irrigation Treatment: bladder irrigation, hold coumadin and plavix, lab monitoring, bladder irrigation, urology consult Thank You Oumar POLANCO CCDS Email [email or web address] office hours M-F 6am to 2:30pm Options provided: -- Gross hematuria likely due to xarelto and Plavix -- Gross hematuria likely as a result of bladder mass resection -- Gross hematuria likely a combination of xarelto, plavix and bladder mass resection -- Other - I will add my own diagnosis -- Disagree - Not applicable / Not valid -- Disagree - Clinically unable to determine / Unknown -- Refer to Clinical Documentation Reviewer PROVIDER RESPONSE TEXT: this patients Gross hematuria is likely a result of combination of xarelto, plavix and bladder mass resection Query created by: Amanda Anne on 01/25/2022 9:51 AM QUERY TEXT: Pt admitted with Gross hematuria Pt noted to have surgery 2 weeks ago with sudden onset of hematuria. per ed drop of 3 gm hgb in 3 hours developed bradycardia and loc with cpr resolved prior to arrival. treated with PRBC. and 3 liters of iv fluids. Currently documented hypotensive SBP in 90s and holding off on starting flomax. If possible please clarify one of the following The medical record reflects the following: Risk Factors: recent surgery, xarelto, plavix, Clinical Indicators: admitted with Gross hematuria Pt noted to have surgery 2 weeks ago with sudden onset of hematuria. per ed drop of 3 gm hgb in 3 hours developed bradycardia and loc with cpr resolved prior to arrival. treated with PRBC. and 3 liters of iv fluids. Currently documented hypotensive SBP in 90s and holding off on starting flomax. Treatment: iv fluids, lab monitoring, BP monitoring Thank You Oumar POLANCO CCDS Email [email or web address] office hours M-F 6am to 2:30pm Options provided: -- Acute blood loss anemia -- Acute on chronic blood loss anemia -- Acute blood loss anemia resolved -- Other - I will add my own diagnosis -- Disagree - Not applicable / Not valid -- Disagree - Clinically unable to determine / Unknown -- Refer to Clinical Documentation Reviewer PROVIDER RESPONSE TEXT: This patient has acute blood loss anemia. Query created by: Amanda Anne on 01/25/2022 9:55 AM Electronically signed by: ЮЛИЯ LARIOS MD 01/25/2022 3:30 PM * Cassius Gleason RCP - 01/25/2022 12:03 PM EDT Pt. Does not need oxygen. SpO2 on room air is 96% * Юлия Larios MD - 01/25/2022 11:47 AM EDT Images from the original note were not included. [facility] Office: [phone] Uziel Santana DO, Vicente Seay DO, Tung Tyler DO, Nhan Alfred DO, Matt Givens MD, Steffany Bragg MD, Davy Munoz MD, Nasima Yoder MD, Kayode Farris MD, Sen Novoa MD, Raj Muñoz DO, Юлия Larios MD, Nic Grider DO, Yovani Craig MD, Kerwin Davis MD, Elliot Santana DO, Tiara Barron MD, Alec Warner MD, Flakita Birmingham MD, Carlos Eduardo Dsouza DO,Elkin Ta MD, Grayson Parrish MD, Chen Kirk CNP, Sugey Milner CNP, Paul Dorsey CNP, William Moulton, NOBLE, Evert Roper PA-C, Sofie Machado DNP, Carmelina Ayers, NOBLE, Lisette Wong, NOBLE, Beth Ann CNP, Ely Lee, HEALTH TEACHER, Becka Robbins, HEALTH TEACHER, Urmila Oseguera, ENTRY LEVEL STAFF ACCOUNTANT, Candis Atkinson, CAROL,Milagros Marcos, HEALTH TEACHER, Swetha Flores, HEALTH TEACHER, Liv Azul, HEALTH TEACHER [facility] IN-PATIENT SERVICE [facility] Progress Note 01/25/2022 11:47 AM Name: Missy Salgado Acct: [id number] Room: IP Day: 1 Admit Date: 01/24/2022 5:57 PM PCP: Adair Noonan Code Status: Full Code Subjective: C/C: Chief Complaint Patient presents with Loss of Consciousness Hematuria Interval History Status: improved. Patient seen and examined at bedside. Family also at bedside. and son from [place]. I am alsoinformed that patient's Daughter should also be arriving later today. Alert and oriented. No chest pain. CBI continues to drain slightly pink tinged output. Still has persistent leukocytosis. Hb 11.7last checked. GLucose stable. BUN still elevated, creatinine trending down. BP improving. Saturating well on room air. 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 Patient was evaluated in [place] ER. Was found to be pulseless and arrested requiring lifeflight to [facility]. Patient was transfused 1 unit RBC prior to arrival due to drop in Hb. Patient being evaluated by urology, Hematology oncology, and Cardiology. Review of Systems: Review of Systems Constitutional: Positive for fatigue. Negative for chills, diaphoresis and fever. HENT: Negative for congestion, drooling, rhinorrhea and sore throat. Eyes: Negative for photophobia and discharge. Respiratory: Negative for apnea, cough and shortness of breath. Cardiovascular: Negative for chest pain, palpitations and leg swelling. Genitourinary: Positive for hematuria. Negative for dysuria, penile swelling and testicular pain. Musculoskeletal: Negative for arthralgias and neck pain. Skin: Positive for pallor. Negative for color change and rash. Neurological: Positive for weakness. Negative for dizziness and syncope. Hematological: Negative for adenopathy. Bruises/bleeds easily. Psychiatric/Behavioral: Negative for agitation and confusion. Medications: Allergies: Allergies Allergen Reactions Statins Muscle stiffness Current Meds: Scheduled Meds: calcium elemental 500 mg Oral BID lactobacillus 1 capsule Oral Daily with breakfast sodium chloride flush 5-40 mL IntraVENous 2 times per day Continuous Infusions: sodium chloride 75 mL/hr at 01/25/22 0939 sodium chloride PRN Meds: sodium chloride flush, sodium chloride, potassium chloride OR potassium alternative oral replacement OR potassium chloride, magnesium sulfate, ondansetron OR ondansetron, polyethylene glycol, acetaminophen OR acetaminophen, oxybutynin, hyoscyamine, opium-belladonna Data: Past Medical History: has a past medical history of Atrial fibrillation ([facility]), CAD (coronary arterydisease), Cataract, Erectile dysfunction, Macular degeneration, Plasmacytoma ([facility]), and STEMI (ST elevation myocardial infarction) ([facility]). Social History: reports that he quit smoking about 46 years ago. His smoking use included cigarettes. He has quit using smokeless tobacco. He reports current alcohol use of about 7.0 standard drinks per week. He reports that he does not use drugs. Family History: Family History Problem Relation Age of Onset Heart Disease Father Cancer Sister Vitals: BP 97/76 Pulse 80 Temp 98.4 F (36.9 C) (Oral) Resp 18 Ht 6' (1.829 m) Wt 198 lb (89.8 kg) SpO2 96% BMI 26.85 kg/m Temp (24hrs), Av.8 F (36.6 C), Min:96.3 F (35.7 C), Max:98.6 F (37 C) No results for input(s): POCGLU in the last 72 hours. I/O (24Hr): Intake/Output Summary (Last 24 hours) at 01/25/2022 1147 Last data filed at 01/25/2022 0540 Gross per 24 hour Intake 1000 ml Output 5000 ml Net -4000 ml Labs: Hematology: Recent Labs 01/24/22 1305 01/24/22 1530 01/24/22 1640 01/24/22211701/25/22 0430 WBC 22.1* 20.1* -- -- -- RBC 3.77* 3.01* -- -- -- HGB 13.5 10.7* 9.8* 11.7* -- HCT 40.6* 31.4* 29.9* 32.8* -- MCV 107.7* 104.3* -- -- -- MCH 35.8* 35.5* -- -- -- MCHC 33.3 34.1 -- -- -- RDW 12.6 12.7 -- -- -- PLT 260 See Reflexed IPF Result -- -- -- MPV 10.5 -- -- -- -- INR 1.3 -- -- -- 0.9 Chemistry: Recent Labs 01/24/22 1305 01/24/22 1334 01/24/22 1334 01/24/22211701/24/22211801/25/22 0430 01/25/22 0843 NA -- 134* -- -- -- 136 -- K -- 4.1 -- -- -- 4.6 -- CL -- 98 -- -- -- 105 -- CO2 -- 22 -- -- -- 19* -- GLUCOSE -- 180* -- -- -- 140* -- BUN -- 30* -- -- -- 27* -- CREATININE -- 1.53* -- -- -- 1.08 -- MG 2.0 -- -- -- -- -- -- ANIONGAP -- 14 -- -- -- 12 -- LABGLOM -- 44* -- -- -- >60 -- GFRAA -- 53* -- -- -- >60 -- CALCIUM -- 8.9 -- -- -- 7.7* -- PHOS 2.8 -- -- -- -- -- -- TROPHS -- 23* < > -- 17 15 18 LACTACIDWB -- -- -- 2.4* -- -- -- < > = values in this interval not displayed. Recent Labs 01/24/22 1305 01/24/22 1334 PROT -- 6.1* LABALBU -- 3.8 TSH 3.54 -- AST -- 19 ALT -- 12 ALKPHOS -- 83 BILITOT -- 0.33 ABG:No results found for: POCPH, PHART, PH, POCPCO2, ERQ2IEU, PCO2, POCPO2, PO2ART, PO2, POCHCO3, [id number], HCO3, NBEA, PBEA, BEART, BE, THGBART, THB, [id number], ISAZ4ZIT, [id number], O2SAT, FIO2 Lab Results Component Value Date/Time SPECIAL LAC 20 ML 01/24/2022 01:10 PM Lab Results Component Value Date/Time CULTURE NO GROWTH 17 HOURS 01/24/2022 01:10 PM Radiology: CT Head W/O Contrast Result Date: 01/24/2022 Moderate central and cortical cerebral atrophy. Mild chronic deep white matter ischemic changes No acute intracranial abnormalities are noted. XR CHEST PORTABLE Result Date: 01/24/[address] CHEST ABDOMEN PELVIS W CONTRAST Result Date: 01/24/2022 1. No acute intrathoracic abnormality. 2. Left 9th rib lytic lesion has progressed with new lytic lesion in the manubrium. These are likely due to history of multiple myeloma. 3. Large amount of [place] fluid/soft tissue in the urinary bladder, concerning for blood products. Underlying lesion would be difficult to exclude. Clinical correlation is recommended. 4. No acute intra-abdominal abnormality. 5. Age-indeterminate fracture of the right L3 transverse process. 6. Diverticulosis without diverticulitis. Physical Examination: Physical Exam Constitutional: General: He is not in acute distress. Appearance: He is ill-appearing. He is not diaphoretic. HENT: Head: Normocephalic and atraumatic. Right Ear: External ear normal. Left Ear: External ear normal. Nose: Nose normal. No congestion. Mouth/Throat: Mouth: Mucous membranes are dry. Pharynx: No oropharyngeal exudate. Eyes: Extraocular Movements: Extraocular movements intact. Pupils: Pupils are equal, round, and reactive to light. Cardiovascular: Rate and Rhythm: Normal rate and regular rhythm. Heart sounds: Murmur heard. Pulmonary: Effort: No accessory muscle usage, prolonged expiration or respiratory distress. Breath sounds: Examination of the right-lower field reveals decreased breath sounds. Examination ofthe left-lower field reveals decreased breath sounds. Decreased breath sounds present. No wheezing or rhonchi. Abdominal: General: There is no distension. Palpations: Abdomen is soft. Tenderness: There is no right CVA tenderness or left CVA tenderness. Musculoskeletal: Cervical back: Neck supple. Right lower leg: No edema. Left lower leg: No edema. Skin: General: Skin is dry. Capillary Refill: Capillary refill takes less than 2 seconds. Coloration: Skin is pale. Neurological: Mental Status: He is alert and oriented to person, place, and time. Motor: Weakness present. Psychiatric: Mood and Affect: Mood normal. Behavior: Behavior normal. Assessment: Hospital Problems Last Modified POA * (Principal) Gross hematuria 01/24/2022 Yes Paroxysmal atrial fibrillation (HCC) 01/24/2022 Yes Coronary artery disease involving [place] heart without angina pectoris 01/24/2022 Yes Plan: Gross hematuria with acute blood loss worsened by xarelto, plavix and Monoclonal antibodies. Appreciate Urology cardiology and oncology recommendations. Hold on mAb, Continue CBI, Anticoagulation to be rusumed when ok with all. Status post 1 unit RBC 01/24/22 Paroxysmal Afib. Hold xarelto, sinus rhythm, hold lopressor Leukocytosis. Unclear etiology. Zosyn. Follow up cultures, follow up Peripheral blood smear Borderline hypotensive, IV hydration Lactic acidosis, repeat lactic acid, IV fluids, follow up labs History of papilary urothelial carcinoma, Multiple myeloma, Plasmacytoma.. Hold darzalex faspro. Appreciate Oncology recommendations GI prophylaxis. Protonix If BP improves will restart flomax Discussed with family in room Юлия Larios MD 01/25/2022 11:47 AM * Kayleen Gomez DO - 01/25/2022 8:15 AM EDT Images from the original note were not included. Galen, Robert, SantacroceBright Mostafa, Buck, Murtagh Jr Urology Progress Note Subjective: Patient afebrile with stable vital signs Patient did require hand irrigation overnight as his Pang had clotted off, 30 to 40 cc of small tomedium size clots CBI was kept wide open initially, but had been titrated down to medium drip with clear very light pink urine this AM. CBI was again titrated down to slow drip. We will check on him again later this afternoon. Patient Vitals for the past 24 hrs: BP Temp Temp src Pulse Resp SpO2 Height Weight 01/25/22 0800 97/76 98.4 F (36.9 C) Oral 80 18 96 % -- -- 01/25/22 0400 107/71 98.6 F (37 C) Oral 75 18 95 % -- -- 01/24/22 2238 (!) 118/94 98.1 F (36.7 C) Axillary 84 19 97 % -- -- 01/24/22 1802 123/87 97.5 F (36.4 C) Oral 94 18 99 % -- -- 01/24/22 1758 -- -- -- -- -- -- 6' (1.829 m) 198 lb (89.8 kg) Intake/Output Summary (Last 24 hours) at 01/25/2022 0815 Last data filed at 01/25/2022 0540 Gross per 24 hour Intake 1000 ml Output 5000 ml Net -4000 ml Recent Labs 01/24/22 1305 01/24/22 1530 01/24/22 1640 01/24/22 2118 WBC 22.1* 20.1* -- -- HGB 13.5 10.7* 9.8* 11.7* HCT 40.6* 31.4* 29.9* 32.8* MCV 107.7* 104.3* -- -- PLT 260 See Reflexed IPF Result -- -- Recent Labs 01/24/22 1305 01/24/22 1334 01/25/22 0430 NA -- 134* 136 K -- 4.1 4.6 CL -- 98 105 CO2 -- 22 19* PHOS 2.8 -- -- BUN -- 30* 27* CREATININE -- 1.53* 1.08 Recent Labs 01/24/22 1330 COLORU Red* PHUR 7.5 WBCUA 2 TO 5 RBCUA GREATER THAN 100 SPECGRAV 1.025* LEUKOCYTESUR INTERPRET WITH CAUTION DUE TO INTENSE COLOR OF URINE.* UROBILINOGEN Normal BILIRUBINUR INTERPRET WITH CAUTION DUE TO INTENSE COLOR OF URINE.* Additional Lab/culture results: Blood cultures no growth 17 hours, urine culture still has not beencollected Physical Exam: General: NAD HEENT: normocephalic, atraumatic Cardiovascular: Acyanotic, pulses palpable Respiratory: nonlabored breathing Abdomen: soft, nontender, nondistended : no SP tenderness of flank pain, Pang in place draining clear very light pink urine on medium drip CBI Skin: warm and dry Extremities: no peripheral edema Psych: normal mood and menation Interval Imaging Findings: None Impression: 81-year-old male with gross hematuria Plan: Maintain Pang catheter Hand irrigate as needed every 2 hours to evacuate clots Maintain CBI at lowest titration to maintain clear light pink urine Await blood culture results Continue to hold off on Flomax as patient's blood pressure is still quite low, systolic in the 90s this morning Kayleen Gomez DO 8:15 AM 01/25/2022 * Antonietta Corado RN - 01/24/2022 11:[address] Gomez at bedside. CBI output noted to be dark red. Irrigation performed. Received verbal order to continue CBI overnight. Will continue to monitor. [facility] [employer]. Work Phone: 1(354) 519-107207-31-2022 Hospital course Narrative* Юлия Larios MD - 01/28/2022 10:58 AM EDT Images from the original note were not included. [facility] Office: [phone] Uziel Santana DO, Vicente Seay DO, Tung Tyler DO, Nhan Alfred DO, Matt Givens MD, Steffany Bragg MD, Davy Munoz MD, Nasima Yoder MD, Kayode Farris MD, Sen Novoa MD, Raj Muñoz DO, Юлия Larios MD, Nic Grider DO, Yovani Craig MD, Kerwin Davis MD, Elliot Santana DO, Tiara Barron MD, Alec Warner MD, Flakita Birmingham MD, Carlos Eduardo Dsouza DO,Elkin Ta MD, Grayson Parrish MD, Chen Kirk, HEALTH TEACHER, Sugey Milner, HEALTH TEACHER, Paul Dorsey, HEALTH TEACHER, William Moulton, HEALTH TEACHER, Evert Roper PA-C, Sofie Machado, DNP, Carmelina Ayers, HEALTH TEACHER, Lisette Wong, HEALTH TEACHER, Beth Ann, [facility], Ely Lee, [facility], Becka Robbins, [facility], Urmila Oseguera, [facility], Candis Atkinson, [facility],Milagros Marcos, [facility], Swetha Flores, [facility], Liv Azul, [facility] IN-PATIENT SERVICE [facility] Discharge Summary Patient ID: Missy Salgado : 1940 ACCOUNT: [id number] Patient's PCP: Adair Noonan Admit Date: 01/24/2022 Discharge Date: 01/28/2022 Length of Stay: 4 Code Status: Full Code Admitting Physician: No admitting provider for patient encounter. 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 * Admission Condition: stable Discharged Condition: stable Hospital Stay: Hospital Course: Missy Salgado is a 81 y.o. 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 Patient was evaluated in [place] ER. Was found to be pulseless and arrested requiring lifeflight to [facility]. Patient was transfused 1 unit RBC prior to arrival due to drop in Hb. Patient being evaluated by urology, Hematology oncology, and Cardiology. Discharge on flomax and plavix. Xarelto held till evaluated by cardiology as outapteint Echo: Summary Left ventricle is normal in size. Global left ventricular systolic function is normal. Estimated ejection fraction is 55 % . Calculated EF via 3D Heart Model is 54 %. Mild left ventricular hypertrophy. No obvious wall motion abnormality seen. Normal right ventricular size and function. No significant valvular regurgitation or stenosis seen. Significant therapeutic interventions: see above Significant Diagnostic Studies: Labs / Micro: CBC: Lab Results Component Value Date/Time WBC 10.7 01/27/2022 06:30 AM RBC 2.57 01/27/2022 06:30 AM RBC 4.19 12/03/2011 09:28 AM HGB 9.0 01/27/2022 06:30 AM HCT 27.0 01/27/2022 06:30 AM MCV 105.1 01/27/2022 06:30 AM MCH 35.0 01/27/2022 06:30 AM MCHC 33.3 01/27/2022 06:30 AM RDW 17.2 01/27/2022 06:30 AM PLT 200 01/27/2022 06:30 AM PLT 223 12/03/2011 09:28 AM BMP: Lab Results Component Value Date/Time GLUCOSE 88 01/28/2022 08:01 AM GLUCOSE 105 12/03/2011 09:28 AM NA 139 01/28/2022 08:01 AM K 4.1 01/28/2022 08:01 AM CL 108 01/28/2022 08:01 AM CO2 22 01/28/2022 08:01 AM ANIONGAP 9 01/28/2022 08:01 AM BUN 14 01/28/2022 08:01 AM CREATININE 1.22 01/28/2022 08:01 AM BUNCRER 20 01/24/2022 01:34 PM CALCIUM 8.7 01/28/2022 08:01 AM LABGLOM 57 01/28/2022 08:01 AM GFRAA >60 01/28/2022 08:01 AM GFR 01/28/2022 08:01 AM HFP: Lab Results Component Value Date/Time PROT 5.5 01/26/2022 08:50 AM PROT 6.8 09/17/2012 08:07 AM PT/INR: Lab Results Component Value Date/Time PROTIME 10.0 01/25/2022 04:30 AM INR 0.9 01/25/2022 04:30 AM Radiology: CT Head W/O Contrast Result Date: 01/24/2022 Moderate central and cortical cerebral atrophy. Mild chronic deep white matter ischemic changes No acute intracranial abnormalities are noted. XR CHEST PORTABLE Result Date: 01/24/[address] CHEST ABDOMEN PELVIS W CONTRAST Result Date: 01/24/2022 1. No acute intrathoracic abnormality. 2. Left 9th rib lytic lesion has progressed with new lytic lesion in the manubrium. These are likely due to history of multiple myeloma. 3. Large amount of highattenuation fluid/soft tissue in the urinary bladder, concerning for blood products. Underlying lesion would be difficult to exclude. Clinical correlation is recommended. 4. No acute intra-abdominal abnormality. 5. Age-indeterminate fracture of the right L3 transverse process. 6. Diverticulosis without diverticulitis. Consultations: Consults: Final Specialist Recommendations/Findings: IP CONSULT TO UROLOGY IP CONSULT TO HOSPITALIST IP CONSULT TO CARDIOLOGY IP CONSULT TO ONCOLOGY The patient was seen and examined on day of discharge and this discharge summary is in conjunction with any daily progress note from day of discharge. Discharge plan: Disposition: Home Physician Follow Up: Adair Noonan [address] [facility] [address] Follow up Nic Garcia MD [address] [facility] [address] Follow up Mary Gan MD [address] [facility] [facility] [place] [phone] Levy Thomas MD [address] [facility], [address] [facility] [address] Follow up Requiring Further Evaluation/Follow Up POST HOSPITALIZATION/Incidental Findings: follow up cardiology, follow up PCP, follow up urology. Cipro for 2 days, asa. Xarelto held till evaluated by cardiology Diet: cardiac diet Activity: As tolerated Instructions to Patient: Your xarelto was held, you are on ciprofloxacin for presumed UTI for 2 days, Please follow up with cardiology for when to restart xarelto. Follow up with your urologist. You are on flomax to help with your urination. Medications are started for bladder spasms, take as needed. You are also on midodrine for your blood pressure. Discharge Medications: Medication List START taking these medications ciprofloxacin 500 MG tablet Commonly known as: CIPRO Take 1 tablet by mouth in the morning and 1 tablet before bedtime. Do all this for 2 days. hyoscyamine 125 MCG sublingual tablet Commonly known as: LEVSIN/SL Place 1 tablet under the tongue every 4 hours as needed for Cramping (if oxybutynin does not help to control bladder spasms) midodrine 10 MG tablet Commonly known as: PROAMATINE Take 1 tablet by mouth in the morning and 1 tablet at noon and 1 tablet in the evening. Take with meals. oxybutynin 5 MG extended release tablet Commonly known as: DITROPAN-XL Take 1 tablet by mouth daily as needed (bladder spasms, pang discomfort) tamsulosin 0.4 MG capsule Commonly known as: FLOMAX Take 1 capsule by mouth in the morning. Start taking on: January 29, 2022 CONTINUE taking these medications ALIGN PO calcium carbonate 500 MG Tabs tablet Commonly known as: OSCAL clopidogrel 75 MG tablet Commonly known as: PLAVIX Take 1 tablet by mouth daily meclizine 25 MG tablet Commonly known as: ANTIVERT PRESERVISION AREDS PO STOP taking these medications acyclovir 400 MG tablet Commonly known as: Zovirax daratumumab chemo injection Commonly known as: DARZALEX DEXAMETHASONE PO metoprolol tartrate 25 MG tablet Commonly known as: LOPRESSOR rivaroxaban 20 MG Tabs tablet Commonly known as: XARELTO sildenafil 100 MG tablet Commonly known as: VIAGRA Where to Get Your Medications These medications were sent to [facility] [place], [place] - [address] [facility] - P [phone] - F [phone] [place] [address] ciprofloxacin 500 MG tablet hyoscyamine 125 MCG sublingual tablet midodrine 10 MG tablet oxybutynin 5 MG extended release tablet tamsulosin 0.4 MG capsule Discharge Procedure Orders CBC with Auto Differential Standing Status: Future Standing Exp. Date: 01/28/23 Basic Metabolic Panel Standing Status: Future Standing Exp. Date: 01/28/23 [facility] - Mary Gan MD, Cardiology, [place] Referral Priority: Routine Referral Type: Eval and Treat Referral Reason: Specialty Services Required Referred to Provider: MARY GAN Requested Specialty: Cardiology Number of Visits Requested: 1 Time Spent on discharge is 36 mins in patient examination, evaluation, counseling as well as medication reconciliation, prescriptions for required medications, discharge plan and follow up. Electronically signed by Юлия Larios MD 01/28/2022 11:00 AM Thank you Adair Noonan for the opportunity to be involved in this patient's care. [facility] [employer] Phone: [phone]) 698-749307-26-2022 History of Present illness Narrative* Thi Valera PA-C - 01/23/2022 1:30 PM EDT PATIENT NAME: Missy Salgado [facility] NO.: [id number] ATTENDING PHYSICIAN: David Molina MD DATE OF SERVICE: January 23, 2022 (Elements copied from Dr. Molina's note dated January 09, 2022, have been reviewed and updated whereappropriate, and all reflect current assessment and medical decision making during today's encounter, January 23, 2022) CC: Follow up Diagnosis: 1. Multiple Myeloma- FISH- Normal Treatment History: 1. 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 T9 surgical resection 2010 3. 6 cycles of CyBord 2010 4. L Clavicular mass 01/2017 5. 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 L Orbital mass radiation 09/2018 8. VRD 6 cycles- Completed 05/2019- Brian Maintenance- 05/2021- Progression 9. Rib Xray 05/[address] Gunn at [facility] as well.-- Started Darzalex and Dex 07/26/2021 11. Established care with ma 09/27/2021 HPI: Missy returns to continue his treatment with Dariela/dex. Since his last visit, he did undergo a transurethral resection of a bladder tumor by urology on 01/10/22 [facility]. Pathology revealed a low-grade papillary urothelial carcinoma, noninvasive. Plan is to repeat surveillance cystoscopy in 3 months. He is only taking dex with his treatment day. Overall feeling well. No fevers, chills, pain or new issues. Just fatigue. Denies cough, abdominal pain or other concerning symptoms. PAST MEDICAL HISTORY Diagnosis Date CAD (coronary artery disease) Hyperlipidemia Hypertension Multiple myeloma (HCC) Myocardial infarction (HCC) Social History Tobacco Use Smoking status: Former Smoker Packs/day: 1.00 Types: Cigarettes Quit date: 07/17/1981 Years since quittin.5 Smokeless tobacco: Never Used Substance Use Topics Alcohol use: Yes Alcohol/week: 7.0 standard drinks Types: 7 Shots of liquor per week Drug use: Not on file No family history on file. Past medical, social and family history reviewed without any changes. REVIEW OF SYSTEMS GENERAL: No weight loss, malaise or fevers. No night sweats. HEENT: Negative for headaches, No changes in hearing or vision, no nose bleeds or other nasal problems. RESPIRATORY: Negative for cough, wheezing and shortness of breath CARDIOVASCULAR: Negative for chest pain, leg swelling and palpitations GI: Negative for abdominal discomfort, blood in stools or black stools and change in bowel habits : Negative for dysuria, frequency and incontinence MUSCULOSKELETAL: Negative for joint pain or swelling, back pain, and muscle pain. SKIN: Negative for lesions, rash, and itching. HEMATOLOGY/LYMPHOLOGY Negative for prolonged bleeding, bruising easily, and swollen nodes. NEURO: Negative for numbness or tingling of hands/feet. No weakness. PHYSICAL EXAMINATION: BP 120/80 Pulse 105 Temp (Src) 97.8 (Temporal) Resp 16 Ht 6' .165 (1.83m) Wt 205 lb 9.6 oz (93.3kg) SpO2 96% BMI 27.76 kg/(m^2). ECOG PERFORMANCE STATUS: 1- Restricted in physically strenuous activity. Carries out light duty. General: Alert and oriented, no distress, pleasant and cooperative. Heart: Regular, normal S1 and S2, no murmurs, rubs, or gallops Lungs: Clear to auscultation bilaterally Abdomen: Benign Extremities: Feet/ankles without edema, posterior tibial pulses full and symmetrical LABS: Glucose (mg/dL) Date Value 01/23/2022 93 Potassium (mmol/L) Date Value 01/23/2022 4.6 Sodium (mmol/L) Date Value 01/23/2022 140 Chloride (mmol/L) Date Value 01/23/2022 106 CO2 (mmol/L) Date Value 01/23/2022 26 Creatinine (mg/dL) Date Value 01/23/2022 1.41 BUN (mg/dL) Date Value 01/23/2022 19 Anion Gap (mmol/L) Date Value 01/23/2022 8 Calcium, Total (mg/dL) Date Value 01/23/2022 9.5 Protein, Total (g/dL) Date Value 01/23/2022 6.4 Albumin (g/dL) Date Value 01/23/2022 3.9 Bilirubin, Total (mg/dL) Date Value 01/23/2022 0.3 Alkaline Phosphatase (U/L) Date Value 01/23/2022 103 AST (U/L) Date Value 01/23/2022 20 ALT (U/L) Date Value 01/23/2022 12 WBC Date Value Ref Range Status 01/23/2022 11.64 (H) 3.70 - 11.00 k/uL Final RBC Date Value Ref Range Status 01/23/2022 4.00 (L) 4.20 - 6.00 m/uL Final Hemoglobin Date Value Ref Range Status 01/23/2022 14.2 13.0 - 17.0 g/dL Final Hematocrit Date Value Ref Range Status 01/23/2022 42.5 39.0 - 51.0 % Final MCV Date Value Ref Range Status 01/23/2022 106.3 (H) 80.0 - 100.0 fL Final MCH Date Value Ref Range Status 01/23/2022 35.5 (H) 26.0 - 34.0 pg Final MCHC Date Value Ref Range Status 01/23/2022 33.4 30.5 - 36.0 g/dL Final RDW-CV Date Value Ref Range Status 01/23/2022 13.1 11.5 - 15.0 % Final Platelet Count Date Value Ref Range Status 01/23/2022 233 150 - 400 k/uL Final MPV Date Value Ref Range Status 01/23/2022 9.8 9.0 - 12.7 fL Final Abs Neut Date Value Ref Range Status 01/23/2022 8.52 (H) 1.45 - 7.50 k/uL Final Lymph% Date Value Ref Range Status 01/23/2022 14.3 % Final Abs Lymph Date Value Ref Range Status 01/23/2022 1.66 1.00 - 4.00 k/uL Final Tate% Date Value Ref Range Status 01/23/2022 11.2 % Final Abs Tate Date Value Ref Range Status 01/23/2022 1.30 (H) <0.87 k/uL Final Eosin% Date Value Ref Range Status 01/23/2022 0.5 % Final Abs Eosin Date Value Ref Range Status 01/23/2022 0.06 <0.46 k/uL Final Baso% Date Value Ref Range Status 01/23/2022 0.3 % Final Abs Baso Date Value Ref Range Status 01/23/2022 0.04 <0.11 k/uL Final PATH: BM Biopsy 08/2018: A. Bone marrow, right posterior iliac crest, biopsy, aspirate smear, and peripheral blood smear: - Normocellular bone marrow (30%) with trilineage hematopoiesis and 3% plasma cells, see comment. - Decreased iron stores without ring sideroblasts. B. Bone marrow, right posterior iliac crest, clot section: - Normocellular bone marrow (30%) with trilineage hematopoiesis and 3% plasma cells, see comment. 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 Plasma cells are not increased (3%), confirmed by CD138 stain. In situ hybridization for kappa and lambda light chains appear to be polytypic. The special stain for Congo red performed on the core biopsy and clot section is negative for amyloid deposition. The flow cytometric analysis of the marrow aspirate reveals polytypic plasma cells and no immunophenotypic evidence of an abnormal population of T lymphocytes, B lymphocytes or blasts. Overall, there is no morphologic or immunophenotypic evidence of plasma cell neoplasm. Correlation with clinical findings and cytogenetic/FISH studies is recommended. Probe/Control Range Patient/Interpretation 1p32.3(CDKN2C)-1signal/0-3.6% 0%/negative 1q21.3(CKS1B)-3signals/0-3.7% 0%/negative 3q27(BCL6)-3signals/0-2.2% 0%/negative 2z48-78,5p15.2(JJP8F-F0C74:G4M780)-3signals/0-0.6% 0%/negative 8q24(MYC)-bap/0-3.0% 0%/negative 11q22.3(ODILON)-3signals/0-0.6% 0%/negative 12p13(ETV6)-1signal/0-4.1% 0.5%/negative 13q14(RB1)-1signal/0-4.2% 0.5%/negative 13q34(LAMP1)-1signal/0-3.0% 0%/negative 17p13.1(TP53)-1signal/0-3.2% 0.5%/negative 21q22(RUNX1)-3signals/0-0.6% 0%/negative 14q32.3-11q13(IGH-CCND1)/0-0.6% 0%/negative IMAGING: PET 05/2021: 1. Mild metabolic activity associated with the posterior left 9th rib lesion and associated soft tissue mass. 2. No metabolic abnormality identified in the previously described osseous abnormalities in the calvarium, left clavicle and spine. No new site of disease identified. ECHO 03/2021: Summary Left ventricle is normal in size. Global left ventricular systolic function appears low normal. Calculated EF via Torres's method is 50 %. Trivial tricuspid regurgitation. Trivial pulmonic insufficiency. Assessment and Plan: Missy Salgado is a 81 year old year old male here for follow up. MM- therapy sequences summarized above most recently was started on Darzalex and dex and will continue and follow up on myeloma parameters which have been stable. He does not like the dex and will only take it on the days which he gets Darzalex. Overall labs stable today and will continue with cycle 7 today and see him in 4 weeks for cycle 8. Previously discussed bone resorptive agents and patient was not interested understanding the rational for their use. Thi Valera PA-C CC: MD Allie Mixon MD documented in this [facility]-2022 Miscellaneous Notes* Telephone Encounter - Rosalee Muniz RN - 01/17/2022 9:31 AM EDT Pt is due for repeat Hep B panel for tx. Last one was drawn 07/25/21. Please sign pended order if agreeable. Thank you, Rosalee Muniz RN documented in this encounter[facility]06-27-2022 History of Present illness Narrative* Candis Culp, JEWEL FLAT SURFACER.HEALTH TEACHER - 12/25/2021 2:00 PM EDT PATIENT NAME: Missy Salgado CLINIC NO.: [id number] ATTENDING PHYSICIAN: David Molina MD DATE OF SERVICE: December 25, 2021 Some of the elements of this note have been copied from my previous progress note dated 12/12/2021. All the information has been reviewed carefully. Dear Dr. Allie Solares here is an update on a follow up visit on male Missy Salgado at the clinic 12/25/2021. Diagnosis: 1. Multiple Myeloma- FISH- Normal Treatment History: 1. 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 T9 surgical resection 2010 3. 6 cycles of CyBord 2010 4. L Clavicular mass 01/2017 5. 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 L Orbital mass radiation 09/2018 8. VRD 6 cycles- Completed 05/2019- Brian Maintenance- 05/2021- Progression 9. Rib Xray 05/[address] Gunn at [facility] as well.-- Started Darzalex and Dex 07/26/2021 11. Established care with ma 09/27/2021 HPI: Misys Salgado is a 81 year old year old male here for follow up. He remains on daratumumab every 2 weeks and is tolerating it well. He denies any significant treatment related side effects. He deniesany unusual pain. No bone pain. He denies fevers, chills, night sweats and signs/symptoms of infection. No bleeding or abnormal bruising. He needs a cystoscopy for ongoing issues with small bladder cancers. Patient is afraid to go off of some of his medications because in the past he had stopped his medications and had had a heart attack. Overall, the patient is doing well and wishes to proceed with treatment as planned. His main complaint is that he has problems with balance. He recently just finished physical therapy. PAST MEDICAL HISTORY Diagnosis Date CAD (coronary artery disease) Hyperlipidemia Hypertension Multiple myeloma (HCC) Myocardial infarction (HCC) Social History Tobacco Use Smoking status: Former Smoker Packs/day: 1.00 Types: Cigarettes Quit date: 07/17/1981 Years since quittin.4 Smokeless tobacco: Never Used Substance Use Topics Alcohol use: Yes Alcohol/week: 7.0 standard drinks Types: 7 Shots of liquor per week Drug use: Not on file No family history on file. Past medical, social and family history reviewed without any changes. REVIEW OF SYSTEMS General: No weight loss, malaise or fevers. No night sweats. HEENT: Negative for headaches. No changes in hearing or vision, no nose bleeds or other nasal problems. Respiratory: Negative for cough, wheezing and shortness of breath. Cardiovascular: Negative for chest pain, leg swelling and palpitations. GI: Negative for abdominal discomfort, blood in stools or black stools and change in bowel habits. : Negative for dysuria, frequency and incontinence. Musculoskeletal: Negative for joint pain or swelling, back pain and muscle pain. Skin: Negative for lesions, rash,and itching. Hematology/Lymphology: Negative for prolonged bleeding, bruising easily and swollen nodes. Neuro: Negative for numbness or tingling of hands/feet. No weakness. Balance issues. PHYSICAL EXAMINATION: BP 128/71 Pulse 75 Temp (Src) 97.7 (Temporal) Resp 16 Ht 6' .165 (1.83m) Wt 206 lb 3.2 oz (93.5kg) SpO2 98% BMI 27.84 kg/(m^2). ECOG General appearance:ECOG PERFORMANCE STATUS: 1- Restricted in physically strenuous activity. Carries out light duty. Exam limited to gross visualization where appropriate due to COVID-19. Gen.: This is an age-appropriate patient in no acute distress. Head: Appears atraumatic with no visible lesions. Eyes: Pupils equally round and reactive to light, extraocular muscles are intact. Neck: Supple. Mouth: Masked. Respiratory: Appears to be respiring comfortably. Neurologic: Nonfocal to gross visualization. Alert and oriented 3. Psychiatric: No evidence of inappropriate anxiety or depression. Skin: Visible areas of skin without rash, lesions, wounds or petechiae. LABS: Hemoglobin (g/dL) Date Value 12/25/2021 13.9 Hematocrit (%) Date Value 12/25/2021 41.7 WBC (k/uL) Date Value 12/25/2021 10.01 Platelet Count (k/uL) Date Value 12/25/2021 213 PATH: BM Biopsy 08/2018: A. Bone marrow, right posterior iliac crest, biopsy, aspirate smear, and peripheral blood smear: - Normocellular bone marrow (30%) with trilineage hematopoiesis and 3% plasma cells, see comment. - Decreased iron stores without ring sideroblasts. B. Bone marrow, right posterior iliac crest, clot section: - Normocellular bone marrow (30%) with trilineage hematopoiesis and 3% plasma cells, see comment. 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 Plasma cells are not increased (3%), confirmed by CD138 stain. In situ hybridization for kappa and lambda light chains appear to be polytypic. The special stain for Congo red performed on the core biopsy and clot section is negative for amyloid deposition. The flow cytometric analysis of the marrow aspirate reveals polytypic plasma cells and no immunophenotypic evidence of an abnormal population of T lymphocytes, B lymphocytes or blasts. Overall, there is no morphologic or immunophenotypic evidence of plasma cell neoplasm. Correlation with clinical findings and cytogenetic/FISH studies is recommended. Probe/Control Range Patient/Interpretation 1p32.3(CDKN2C)-1signal/0-3.6% 0%/negative 1q21.3(CKS1B)-3signals/0-3.7% 0%/negative 3q27(BCL6)-3signals/0-2.2% 0%/negative 9t69-57,5p15.2([id number])-3signals/0-0.6% 0%/negative 8q24(MYC)-bap/0-3.0% 0%/negative 11q22.3(ODILON)-3signals/0-0.6% 0%/negative 12p13(ETV6)-1signal/0-4.1% 0.5%/negative 13q14(RB1)-1signal/0-4.2% 0.5%/negative 13q34(LAMP1)-1signal/0-3.0% 0%/negative 17p13.1(TP53)-1signal/0-3.2% 0.5%/negative 21q22(RUNX1)-3signals/0-0.6% 0%/negative 14q32.3-11q13(IGH-CCND1)/0-0.6% 0%/negative IMAGING: PET 05/2021: 1. Mild metabolic activity associated with the posterior left 9th rib lesion and associated soft tissue mass. 2. No metabolic abnormality identified in the previously described osseous abnormalities in the calvarium, left clavicle and spine. No new site of disease identified. ECHO 03/2021: Summary Left ventricle is normal in size. Global left ventricular systolic function appears low normal. Calculated EF via Torres's method is 50 %. Trivial tricuspid regurgitation. Trivial pulmonic insufficiency. Assessment and Plan: Missy Salgado is a 81 year old year old male here for follow up and continued treatment. MM- therapy sequences summarized above most recently was started on Darzalex and dex and will continue and follow up on myeloma parameters which have been stable. He does not like the dex and will only administer on the Darzalex days. Discussed bone resorptive agents and patient states that he is not interested understanding the rational for their use. Proceed with cycle 6 day 1 daratumumab. See back in 2 weeks for cycle 6 day 15. Thank you for the kind referral. If there are any questions and or concerns please do not hesitate to contact David Molina MD at [phone]. Candis Culp APRN.CNP Hematology/Medical Oncology [facility] CC: MD Allie Mixon MD [facility] History of Present illness Narrative* Candis Culp APRN.CNP - 12/12/2021 2:25 PM EDT PATIENT NAME: Missy Salgado CLINIC NO.: [id number] ATTENDING PHYSICIAN: David Molina MD DATE OF SERVICE: December 12, 2021 Some of the elements of this note have been copied from Dr. Molina's previous progress note dated11/28/2021. All the information has been reviewed carefully. Dear Dr. Allie Solares here is an update on a follow up visit on male Missy Salgado at the clinic 12/12/2021. Diagnosis: 1. Multiple Myeloma- FISH- Normal Treatment History: 1. 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 T9 surgical resection 2010 3. 6 cycles of CyBord 2010 4. L Clavicular mass 01/2017 5. 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 L Orbital mass radiation 09/2018 8. VRD 6 cycles- Completed 05/2019- Brian Maintenance- 05/2021- Progression 9. Rib Xray 05/[address] Gunn at [facility] as well.-- Started Darzalex and Dex 07/26/2021 11. Established care with ma 09/27/2021 HPI: Missy Salgado is a 81 year old year old male here for follow up. He remains on daratumumab every 2 weeks and is tolerating it well. After his last injection he developed a bruise his left lower abdomen. Otherwise he denies any bleeding or abnormal bruising. He denies fevers, chills, night sweats and signs/symptoms of infection. His biggest complaint is feeling tired. Overall he denies any significant side effects from treatment. He wishes to continue with treatment as planned. PAST MEDICAL HISTORY Diagnosis Date CAD (coronary artery disease) Hyperlipidemia Hypertension Multiple myeloma (HCC) Myocardial infarction (HCC) Social History Tobacco Use Smoking status: Former Smoker Packs/day: 1.00 Types: Cigarettes Quit date: 07/17/1981 Years since quittin.4 Smokeless tobacco: Never Used Substance Use Topics Alcohol use: Yes Alcohol/week: 7.0 standard drinks Types: 7 Shots of liquor per week Drug use: Not on file History reviewed. No pertinent family history. Past medical, social and family history reviewed without any changes. REVIEW OF SYSTEMS General: No weight loss, malaise or fevers. No night sweats. HEENT: Negative for headaches. No changes in hearing or vision, no nose bleeds or other nasal problems. Respiratory: Negative for cough, wheezing and shortness of breath. Cardiovascular: Negative for chest pain, leg swelling and palpitations. GI: Negative for abdominal discomfort, blood in stools or black stools and change in bowel habits. : Negative for dysuria, frequency and incontinence. Musculoskeletal: Negative for joint pain or swelling, back pain and muscle pain. Skin: Negative for lesions, rash,and itching. Hematology/Lymphology: Negative for prolonged bleeding, bruising easily and swollen nodes. Neuso: Negative for numbness or tingling of hands/feet. No weakness. PHYSICAL EXAMINATION: BP 132/84 Pulse 77 Temp (Src) 97.6 (Temporal) Resp 16 Ht 6' .165 (1.83m) Wt 205 lb 9.6 oz (93.3kg) SpO2 97% BMI 27.76 kg/(m^2). General appearance:ECOG PERFORMANCE STATUS: 1- Restricted in physically strenuous activity. Carries out light duty. Exam limited to gross visualization where appropriate due to COVID-19. Gen.: This is an age-appropriate patient in no acute distress. Head: Appears atraumatic with no visible lesions. Eyes: Pupils equally round and reactive to light, extraocular muscles are intact. Neck: Supple. Mouth: Masked. Respiratory: Appears to be respiring comfortably. Neurologic: Nonfocal to gross visualization. Alert and oriented 3. Psychiatric: No evidence of inappropriate anxiety or depression. Skin: Visible areas of skin without rash, lesions, wounds or petechiae. LABS: Hemoglobin (g/dL) Date Value 12/12/2021 13.6 Hematocrit (%) Date Value 12/12/2021 40.5 WBC (k/uL) Date Value 12/12/2021 9.74 Platelet Count (k/uL) Date Value 12/12/2021 230 PATH: BM Biopsy 08/2018: A. Bone marrow, right posterior iliac crest, biopsy, aspirate smear, and peripheral blood smear: - Normocellular bone marrow (30%) with trilineage hematopoiesis and 3% plasma cells, see comment. - Decreased iron stores without ring sideroblasts. B. Bone marrow, right posterior iliac crest, clot section: - Normocellular bone marrow (30%) with trilineage hematopoiesis and 3% plasma cells, see comment. 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 Plasma cells are not increased (3%), confirmed by CD138 stain. In situ hybridization for kappa and lambda light chains appear to be polytypic. The special stain for Congo red performed on the core biopsy and clot section is negative for amyloid deposition. The flow cytometric analysis of the marrow aspirate reveals polytypic plasma cells and no immunophenotypic evidence of an abnormal population of T lymphocytes, B lymphocytes or blasts. Overall, there is no morphologic or immunophenotypic evidence of plasma cell neoplasm. Correlation with clinical findings and cytogenetic/FISH studies is recommended. Probe/Control Range Patient/Interpretation 1p32.3(CDKN2C)-1signal/0-3.6% 0%/negative 1q21.3(CKS1B)-3signals/0-3.7% 0%/negative 3q27(BCL6)-3signals/0-2.2% 0%/negative 9j45-48,5p15.2([id number]:[id number])-3signals/0-0.6% 0%/negative 8q24(MYC)-bap/0-3.0% 0%/negative 11q22.3(ODILON)-3signals/0-0.6% 0%/negative 12p13(ETV6)-1signal/0-4.1% 0.5%/negative 13q14(RB1)-1signal/0-4.2% 0.5%/negative 13q34(LAMP1)-1signal/0-3.0% 0%/negative 17p13.1(TP53)-1signal/0-3.2% 0.5%/negative 21q22(RUNX1)-3signals/0-0.6% 0%/negative 14q32.3-11q13(IGH-CCND1)/0-0.6% 0%/negative IMAGING: PET 05/2021: 1. Mild metabolic activity associated with the posterior left 9th rib lesion and associated soft tissue mass. 2. No metabolic abnormality identified in the previously described osseous abnormalities in the calvarium, left clavicle and spine. No new site of disease identified. ECHO 03/2021: Summary Left ventricle is normal in size. Global left ventricular systolic function appears low normal. Calculated EF via Trores's method is 50 %. Trivial tricuspid regurgitation. Trivial pulmonic insufficiency. Assessment and Plan: Missy Salgado is a 81 year old year old male here for follow up. MM- therapy sequences summarized above most recently was started on Darzalex and dex and will continue and follow up on myeloma parameters which have been stable. He does not like the dex and will only administer on the Darzalex days. Discussed bone resorptive agents and patient states that he is not interested understanding the rational for their use. Proceed with cycle 5 day 15 daratumumab. See back in 2 weeks for cycle 6 day. Thank you for the kind referral. If there are any questions and or concerns please do not hesitate to contact me at [phone]. David Molina MD Hematology/Medical Oncology [facility] spent a total of 15 minutes on the date of the service which included preparing to see the patient, [id number] patient care, completing clinical documentation, obtaining and/or reviewing separately obtained history, performing a medically appropriate examination, counseling and educating the pat ient/family/caregiver and ordering medications, tests, or procedures. Medical Decision Making: Medical Decision Making Level: 1 - N/A CC: MD Allie Mixon MD documented [facility]31-[facility]22 History of Present illness Narrative* David Molina MD - 11/28/2021 2:34 PM EDT PATIENT NAME: Missy Salgado [facility] NO.: [id number] ATTENDING PHYSICIAN: David Molina MD DATE OF SERVICE: November 28, 2021 Some of the elements of this note have been copied from my previous progress note dated 10/31/2021. All the information has been reviewed carefully. Dear Dr. Allie Solares here is an update on a follow up visit on male Missy Salgado at the clinic 11/28/2021 Diagnosis: 1. Multiple Myeloma- FISH- Normal Treatment History: 1. 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 T9 surgical resection 2010 3. 6 cycles of CyBord 2010 4. L Clavicular mass 01/2017 5. 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 L Orbital mass radiation 09/2018 8. VRD 6 cycles- Completed 05/2019- Brian Maintenance- 05/2021- Progression 9. Rib Xray 05/[address] Gunn at [facility] as well.-- Started Darzalex and Dex 07/26/2021 11. Established care with ma 09/27/2021 HPI: Missy Salgado is a 81 year old year old male here for follow up. Feels fine and denies any pain and or abdominal pain. He does not like taking the Dex at all. PAST MEDICAL HISTORY Diagnosis Date CAD (coronary artery disease) Hyperlipidemia Hypertension Multiple myeloma (HCC) Myocardial infarction (HCC) Social History Tobacco Use Smoking status: Former Smoker Packs/day: 1.00 Types: Cigarettes Quit date: 07/17/1981 Years since quittin.3 Smokeless tobacco: Never Used Substance Use Topics Alcohol use: Yes Alcohol/week: 7.0 standard drinks Types: 7 Shots of liquor per week Drug use: Not on file No family history on file. Past medical, social and family history reviewed without any changes. REVIEW OF SYSTEMS GENERAL: No weight loss, malaise or fevers. No night sweats. HEENT: Negative for headaches, No changes in hearing or vision, no nose bleeds or other nasal problems. RESPIRATORY: Negative for cough, wheezing and shortness of breath CARDIOVASCULAR: Negative for chest pain, leg swelling and palpitations GI: Negative for abdominal discomfort, blood in stools or black stools and change in bowel habits : Negative for dysuria, frequency and incontinence MUSCULOSKELETAL: Negative for joint pain or swelling, back pain, and muscle pain. SKIN: Negative for lesions, rash, and itching. HEMATOLOGY/LYMPHOLOGY Negative for prolonged bleeding, bruising easily, and swollen nodes. NEURO: Negative for numbness or tingling of hands/feet. No weakness. PHYSICAL EXAMINATION: There were no vitals taken for this visit. Wt 93.1 kg (205 lb 3.2 oz) BMI 27.7 kg/m2 Last 3 Encounter Wt Readings: Date: Wt: 10/31/2021 93.1 kg (205 lb 3.2 oz) 10/17/2021 92.2 kg (203 lb 3.2 oz) 10/03/2021 91.8 kg (202 lb 4.8 oz) General appearance:ECOG PERFORMANCE STATUS: 1- Restricted in physically strenuous activity. Carries out light duty. Patient in NAD. Skin: Skin color, texture, turgor normal. No rashes or lesions. Eyes: Anicteric sclera. Pupils are equally round and reactive to light. Extraocular movements are intact. Lymph Nodes: No cervical, supraclavicular, axillary or inguinal adenopathy. Oropharynx: Lips, mucosa, and tongue normal. Back: No pain to percussion. Negative SLR test Lungs clear to auscultation, No wheezing or rhonchi Heart: RRR without murmur, gallop, or rubs. Abdomen soft, non-tender. No masses, organomegaly Extremities: No deformities. No edema Neuro: Gait and speech normal. Reflexes normal and symmetric. Muscular strength intact. Sensation grossly intact. Rectal: Deferred : Deferred LABS: Glucose (mg/dL) Date Value 11/14/2021 198 Potassium (mmol/L) Date Value 11/14/2021 4.5 Sodium (mmol/L) Date Value 11/14/2021 140 Chloride (mmol/L) Date Value 11/14/2021 104 CO2 (mmol/L) Date Value 11/14/2021 27 Creatinine (mg/dL) Date Value 11/14/2021 1.44 BUN (mg/dL) Date Value 11/14/2021 22 Anion Gap (mmol/L) Date Value 11/14/2021 9 Calcium, Total (mg/dL) Date Value 11/14/2021 9.4 Protein, Total (g/dL) Date Value 11/14/2021 6.7 Albumin (g/dL) Date Value 11/14/2021 4.1 Bilirubin, Total (mg/dL) Date Value 11/14/2021 0.2 Alkaline Phosphatase (U/L) Date Value 11/14/2021 89 AST (U/L) Date Value 11/14/2021 17 ALT (U/L) Date Value 11/14/2021 13 WBC Date Value Ref Range Status 11/14/2021 8.65 3.70 - 11.00 k/uL Final RBC Date Value Ref Range Status 11/14/2021 3.94 (L) 4.20 - 6.00 m/uL Final Hemoglobin Date Value Ref Range Status 11/14/2021 13.9 13.0 - 17.0 g/dL Final Hematocrit Date Value Ref Range Status 11/14/2021 42.8 39.0 - 51.0 % Final MCV Date Value Ref Range Status 11/14/2021 108.6 (H) 80.0 - 100.0 fL Final MCH Date Value Ref Range Status 11/14/2021 35.3 (H) 26.0 - 34.0 pg Final MCHC Date Value Ref Range Status 11/14/2021 32.5 30.5 - 36.0 g/dL Final RDW-CV Date Value Ref Range Status 11/14/2021 13.3 11.5 - 15.0 % Final Platelet Count Date Value Ref Range Status 11/14/2021 230 150 - 400 k/uL Final MPV Date Value Ref Range Status 11/14/2021 9.9 9.0 - 12.7 fL Final Abs Neut Date Value Ref Range Status 11/14/2021 8.03 (H) 1.45 - 7.50 k/uL Final Lymph% Date Value Ref Range Status 11/14/2021 5.5 % Final Abs Lymph Date Value Ref Range Status 11/14/2021 0.48 (L) 1.00 - 4.00 k/uL Final Tate% Date Value Ref Range Status 11/14/2021 0.7 % Final Abs Tate Date Value Ref Range Status 11/14/2021 0.06 <0.87 k/uL Final Eosin% Date Value Ref Range Status 11/14/2021 0.0 % Final Abs Eosin Date Value Ref Range Status 11/14/2021 <0.03 <0.46 k/uL Final Baso% Date Value Ref Range Status 11/14/2021 0.2 % Final Abs Baso Date Value Ref Range Status 11/14/2021 <0.03 <0.11 k/uL Final PATH: BM Biopsy 08/2018: A. Bone marrow, right posterior iliac crest, biopsy, aspirate smear, and peripheral blood smear: - Normocellular bone marrow (30%) with trilineage hematopoiesis and 3% plasma cells, see comment. - Decreased iron stores without ring sideroblasts. B. Bone marrow, right posterior iliac crest, clot section: - Normocellular bone marrow (30%) with trilineage hematopoiesis and 3% plasma cells, see comment. 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 Plasma cells are not increased (3%), confirmed by CD138 stain. In situ hybridization for kappa and lambda light chains appear to be polytypic. The special stain for Congo red performed on the core biopsy and clot section is negative for amyloid deposition. The flow cytometric analysis of the marrow aspirate reveals polytypic plasma cells and no immunophenotypic evidence of an abnormal population of T lymphocytes, B lymphocytes or blasts. Overall, there is no morphologic or immunophenotypic evidence of plasma cell neoplasm. Correlation with clinical findings and cytogenetic/FISH studies is recommended. Probe/Control Range Patient/Interpretation 1p32.3(CDKN2C)-1signal/0-3.6% 0%/negative 1q21.3(CKS1B)-3signals/0-3.7% 0%/negative 3q27(BCL6)-3signals/0-2.2% 0%/negative 8e71-43,5p15.2([id number]:[id number])-3signals/0-0.6% 0%/negative 8q24(MYC)-bap/0-3.0% 0%/negative 11q22.3(ODILON)-3signals/0-0.6% 0%/negative 12p13(ETV6)-1signal/0-4.1% 0.5%/negative 13q14(RB1)-1signal/0-4.2% 0.5%/negative 13q34(LAMP1)-1signal/0-3.0% 0%/negative 17p13.1(TP53)-1signal/0-3.2% 0.5%/negative 21q22(RUNX1)-3signals/0-0.6% 0%/negative 14q32.3-11q13(IGH-CCND1)/0-0.6% 0%/negative IMAGING: PET 05/2021: 1. Mild metabolic activity associated with the posterior left 9th rib lesion and associated soft tissue mass. 2. No metabolic abnormality identified in the previously described osseous abnormalities in the calvarium, left clavicle and spine. No new site of disease identified. ECHO 03/2021: Summary Left ventricle is normal in size. Global left ventricular systolic function appears low normal. Calculated EF via Torres's method is 50 %. Trivial tricuspid regurgitation. Trivial pulmonic insufficiency. Assessment and Plan: Missy Salgado is a 81 year old year old male here for follow up. MM- therapy sequences summarized above most recently was started on Darzalex and dex and will continue and follow up on myeloma parameters which have been stable. He does not like the dex and will only administer on the Darzalex days. Discussed bone resorptive agents and patient states that he is not interested understanding the rational for their use. See back in 2 weeks For day 15 of cycle 5 Thank you for the kind referral. If there are any questions and or concerns please do not hesitate to contact me at [phone]. David Molina MD Hematology/Medical Oncology [facility] spent a total of 15 minutes on the date of the service which included preparing to see the patient, [id number] patient care, completing clinical documentation, obtaining and/or reviewing separately obtained history, performing a medically appropriate examination, counseling and educating the pat ient/family/caregiver and ordering medications, tests, or procedures. Medical Decision Making: Medical Decision Making Level: 1 - N/A CC: MD Allie Mixon MD documented [facility]22 History of Present illness Narrative* Thi Valera PA-C - 11/14/2021 2:30 PM EDT PATIENT NAME: Missy Salgado [facility] NO.: [id number] ATTENDING PHYSICIAN: David Molina MD DATE OF SERVICE: November 14, 2021 (Elements copied from Dr. Molina's note dated October 31, 2021, have been reviewed and updated where appropriate, and all reflect current assessment and medical decision making during today's encounter,November 14, 2021) CC: Follow up and treatment Diagnosis: 1. Multiple Myeloma- FISH- Normal Treatment History: 1. 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 T9 surgical resection 2010 3. 6 cycles of CyBord 2010 4. L Clavicular mass 01/2017 5. 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 L Orbital mass radiation 09/2018 8. VRD 6 cycles- Completed 05/2019- Brian Maintenance- 05/2021- Progression 9. Rib Xray 05/[address] Gunn at [facility] as well.-- Started Darzalex and Dex 07/26/2021 11. Established care with ma 09/27/2021 HPI: Gong to therapy for heel and it Is getting better. He is feeling good overall. No new pain or problems. He does confirm he started ttaking calcium and vitamin d as recommended. He denies any fevers, chills, nausea, vomiting, cough or shortness of breath. PAST MEDICAL HISTORY Diagnosis Date CAD (coronary artery disease) Hyperlipidemia Hypertension Multiple myeloma (HCC) Myocardial infarction (HCC) Social History Tobacco Use Smoking status: Former Smoker Packs/day: 1.00 Types: Cigarettes Quit date: 07/17/1981 Years since quittin.3 Smokeless tobacco: Never Used Substance Use Topics Alcohol use: Yes Alcohol/week: 7.0 standard drinks Types: 7 Shots of liquor per week Drug use: Not on file No family history on file. Past medical, social and family history reviewed without any changes. REVIEW OF SYSTEMS GENERAL: No weight loss, malaise or fevers. No night sweats. HEENT: Negative for headaches, No changes in hearing or vision, no nose bleeds or other nasal problems. RESPIRATORY: Negative for cough, wheezing and shortness of breath CARDIOVASCULAR: Negative for chest pain, leg swelling and palpitations GI: Negative for abdominal discomfort, blood in stools or black stools and change in bowel habits : Negative for dysuria, frequency and incontinence MUSCULOSKELETAL: Negative for joint pain or swelling, back pain, and muscle pain. SKIN: Negative for lesions, rash, and itching. HEMATOLOGY/LYMPHOLOGY Negative for prolonged bleeding, bruising easily, and swollen nodes. NEURO: Negative for numbness or tingling of hands/feet. No weakness. PHYSICAL EXAMINATION: BP 135/84 Pulse 92 Temp (Src) 97.3 (Temporal) Resp 16 Wt 205 lb 12.8 oz (93.4kg) SpO2 96% ECOG PERFORMANCE STATUS: 1- Restricted in physically strenuous activity. Carries out light duty. General: Alert and oriented, no distress, pleasant and cooperative. Heart: Regular, normal S1 and S2, no murmurs, rubs, or gallops Lungs: Clear to auscultation bilaterally Abdomen: Benign Extremities: Feet/ankles without edema, posterior tibial pulses full and symmetrical LABS: Glucose (mg/dL) Date Value 11/14/2021 198 Potassium (mmol/L) Date Value 11/14/2021 4.5 Sodium (mmol/L) Date Value 11/14/2021 140 Chloride (mmol/L) Date Value 11/14/2021 104 CO2 (mmol/L) Date Value 11/14/2021 27 Creatinine (mg/dL) Date Value 11/14/2021 1.44 BUN (mg/dL) Date Value 11/14/2021 22 Anion Gap (mmol/L) Date Value 11/14/2021 9 Calcium, Total (mg/dL) Date Value 11/14/2021 9.4 Protein, Total (g/dL) Date Value 11/14/2021 6.7 Albumin (g/dL) Date Value 11/14/2021 4.1 Bilirubin, Total (mg/dL) Date Value 11/14/2021 0.2 Alkaline Phosphatase (U/L) Date Value 11/14/2021 89 AST (U/L) Date Value 11/14/2021 17 ALT (U/L) Date Value 11/14/2021 13 WBC Date Value Ref Range Status 11/14/2021 8.65 3.70 - 11.00 k/uL Final RBC Date Value Ref Range Status 11/14/2021 3.94 (L) 4.20 - 6.00 m/uL Final Hemoglobin Date Value Ref Range Status 11/14/2021 13.9 13.0 - 17.0 g/dL Final Hematocrit Date Value Ref Range Status 11/14/2021 42.8 39.0 - 51.0 % Final MCV Date Value Ref Range Status 11/14/2021 108.6 (H) 80.0 - 100.0 fL Final MCH Date Value Ref Range Status 11/14/2021 35.3 (H) 26.0 - 34.0 pg Final MCHC Date Value Ref Range Status 11/14/2021 32.5 30.5 - 36.0 g/dL Final RDW-CV Date Value Ref Range Status 11/14/2021 13.3 11.5 - 15.0 % Final Platelet Count Date Value Ref Range Status 11/14/2021 230 150 - 400 k/uL Final MPV Date Value Ref Range Status 11/14/2021 9.9 9.0 - 12.7 fL Final Abs Neut Date Value Ref Range Status 11/14/2021 8.03 (H) 1.45 - 7.50 k/uL Final Lymph% Date Value Ref Range Status 11/14/2021 5.5 % Final Abs Lymph Date Value Ref Range Status 11/14/2021 0.48 (L) 1.00 - 4.00 k/uL Final Tate% Date Value Ref Range Status 11/14/2021 0.7 % Final Abs Tate Date Value Ref Range Status 11/14/2021 0.06 <0.87 k/uL Final Eosin% Date Value Ref Range Status 11/14/2021 0.0 % Final Abs Eosin Date Value Ref Range Status 11/14/2021 <0.03 <0.46 k/uL Final Baso% Date Value Ref Range Status 11/14/2021 0.2 % Final Abs Baso Date Value Ref Range Status 11/14/2021 <0.03 <0.11 k/uL Final PATH: BM Biopsy 08/2018: A. Bone marrow, right posterior iliac crest, biopsy, aspirate smear, and peripheral blood smear: - Normocellular bone marrow (30%) with trilineage hematopoiesis and 3% plasma cells, see comment. - Decreased iron stores without ring sideroblasts. B. Bone marrow, right posterior iliac crest, clot section: - Normocellular bone marrow (30%) with trilineage hematopoiesis and 3% plasma cells, see comment. 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 Plasma cells are not increased (3%), confirmed by CD138 stain. In situ hybridization for kappa and lambda light chains appear to be polytypic. The special stain for Congo red performed on the core biopsy and clot section is negative for amyloid deposition. The flow cytometric analysis of the marrow aspirate reveals polytypic plasma cells and no immunophenotypic evidence of an abnormal population of T lymphocytes, B lymphocytes or blasts. Overall, there is no morphologic or immunophenotypic evidence of plasma cell neoplasm. Correlation with clinical findings and cytogenetic/FISH studies is recommended. Probe/Control Range Patient/Interpretation 1p32.3(CDKN2C)-1signal/0-3.6% 0%/negative 1q21.3(CKS1B)-3signals/0-3.7% 0%/negative 3q27(BCL6)-3signals/0-2.2% 0%/negative 3w39-64,5p15.2(GQC6A-G0R32:P2J745)-3signals/0-0.6% 0%/negative 8q24(MYC)-bap/0-3.0% 0%/negative 11q22.3(ODILON)-3signals/0-0.6% 0%/negative 12p13(ETV6)-1signal/0-4.1% 0.5%/negative 13q14(RB1)-1signal/0-4.2% 0.5%/negative 13q34(LAMP1)-1signal/0-3.0% 0%/negative 17p13.1(TP53)-1signal/0-3.2% 0.5%/negative 21q22(RUNX1)-3signals/0-0.6% 0%/negative 14q32.3-11q13(IGH-CCND1)/0-0.6% 0%/negative IMAGING: PET 05/2021: 1. Mild metabolic activity associated with the posterior left 9th rib lesion and associated soft tissue mass. 2. No metabolic abnormality identified in the previously described osseous abnormalities in the calvarium, left clavicle and spine. No new site of disease identified. ECHO 03/2021: Summary Left ventricle is normal in size. Global left ventricular systolic function appears low normal. Calculated EF via Torres's method is 50 %. Trivial tricuspid regurgitation. Trivial pulmonic insufficiency. Assessment and Plan: Missy Salgado is a 81 year old year old male here for follow up. MM- therapy sequences summarized above most recently was started on Darzalex and dex and will continue and follow up on myeloma parameters. Overall stable. Will cotninue with treatment today, cycle 4day 15 and see him in 2 weeks for cycle 5. Monitor renal function. Discussed bone resorptive agents and patient states that he is not interested understanding the rational for their use. He is taking calcium and vitamin D supplement. ED--patient has used viagra in the past and is requesting a refill. We reviewed potential risks andside effects associated with it. Refill acyclovir Thi Valera PA-C CC: MD Allie Mixon MD documented in this encounterSouth[facility]-2022 Miscellaneous Notes* Telephone Encounter - David Molina MD - 11/06/2021 1:36 PM EDT Ok * Telephone Encounter - Gaby Malik [facility] - 11/06/2021 1:24 PM EDT Called Gaye Ure[facility] spoke with Nichole she states they did receive patient records/referral. When they called patient to schedule she states patient stated he was already scheduled somewhere else. I called spoke with patient spouse she states patient is going to [facility] and had his first session there this morning. Gaby Malik [facility] * Telephone Encounter - Bre Snyder [facility] - 11/01/2021 10:05 AM EDT Records faxed. * Telephone Encounter - Gaby Malik [facility] - 11/01/2021 8:02 AM EDT Maisha: Information ready for you. Gaby Funes * Telephone Encounter - Geni Geovannymakayla - 10/31/2021 3:44 PM EDT Maisha/Hermilo: Please refer patient for Physical Therapy. Dx: Achilles Tendinitis and Deconditioning Patient states this is also where his goes so this is his preference. [facility] [address] [place] [address] Get Directions Geni Royce documented in this encounterSouthwest [facility]05-03-2022 History of Present illness Narrative* Huong Sheridan RN - 10/31/2021 2:06 PM EDT Patient declines xgeva at this visit because he has never had any problems with his bones and he isconcerned for the potential of osteonecrosis of the jaw. I explained that is a rare side effect andthat his bone health is important given his disease but still declines. Dr. Molina notified and he states he will discuss with patient at next visit. Huong Sheridan RN Call from Kanika Aquino RN regarding new script for Vit D. Med list reviewed with and sent home with patient. He is agreeable to start new medication if he is not already on that dose at home. Huong Sheridan RN documented in this encounterSouthwest [facility] Center05-03-2022 History of Present illness Narrative* David Molina MD - 10/31/2021 1:52 PM EDT PATIENT NAME: Missy Salgado [facility] NO.: [id number] ATTENDING PHYSICIAN: David Molina MD DATE OF SERVICE: October 31, [address] Allie Solares here is an update on a follow up visit on male Missy Salgado at the clinic 10/31/2021 Diagnosis: 1. Multiple Myeloma- FISH- Normal Treatment History: 1. 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 T9 surgical resection 2010 3. 6 cycles of CyBord 2010 4. L Clavicular mass 01/2017 5. 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 L Orbital mass radiation 09/2018 8. VRD 6 cycles- Completed 05/2019- Brian Maintenance- 05/2021- Progression 9. Rib Xray 05/[address] Gunn at [facility] as well.-- Started Darzalex and Dex 07/26/2021 11. Established care with me 09/27/2021 HPI: Missy Salgado is a 81 year old year old male here for follow up. He has some pain in his achilles and also denies any pain and denies nausea. just had hip replacement as well. Denies any REEVES and or diarrhea. PAST MEDICAL HISTORY Diagnosis Date CAD (coronary artery disease) Hyperlipidemia Hypertension Multiple myeloma (HCC) Myocardial infarction (HCC) Social History Tobacco Use Smoking status: Former Smoker Packs/day: 1.00 Types: Cigarettes Quit date: 07/17/1981 Years since quittin.3 Smokeless tobacco: Never Used Substance Use Topics Alcohol use: Yes Alcohol/week: 7.0 standard drinks Types: 7 Shots of liquor per week Drug use: Not on file No family history on file. Past medical, social and family history reviewed without any changes. REVIEW OF SYSTEMS GENERAL: No weight loss, malaise or fevers. No night sweats. HEENT: Negative for headaches, No changes in hearing or vision, no nose bleeds or other nasal problems. RESPIRATORY: Negative for cough, wheezing and shortness of breath CARDIOVASCULAR: Negative for chest pain, leg swelling and palpitations GI: Negative for abdominal discomfort, blood in stools or black stools and change in bowel habits : Negative for dysuria, frequency and incontinence MUSCULOSKELETAL: Negative for joint pain or swelling, back pain, and muscle pain. SKIN: Negative for lesions, rash, and itching. HEMATOLOGY/LYMPHOLOGY Negative for prolonged bleeding, bruising easily, and swollen nodes. NEURO: Negative for numbness or tingling of hands/feet. No weakness. PHYSICAL EXAMINATION: BP 128/83 Pulse 95 Temp (Src) 97.6 (Temporal) Resp 16 Ht 6' .165 (1.83m) Wt 205 lb 3.2 oz (93.1kg) SpO2 97% BMI 27.70 kg/(m^2). Wt 93.1 kg (205 lb 3.2 oz) BMI 27.7 kg/m2 Last 3 Encounter Wt Readings: Date: Wt: 10/31/2021 93.1 kg (205 lb 3.2 oz) 10/17/2021 92.2 kg (203 lb 3.2 oz) 10/03/2021 91.8 kg (202 lb 4.8 oz) General appearance:ECOG PERFORMANCE STATUS: 1- Restricted in physically strenuous activity. Carries out light duty. Patient in NAD. Skin: Skin color, texture, turgor normal. No rashes or lesions. Eyes: Anicteric sclera. Pupils are equally round and reactive to light. Extraocular movements are intact. Lymph Nodes: No cervical, supraclavicular, axillary or inguinal adenopathy. Oropharynx: Lips, mucosa, and tongue normal. Back: No pain to percussion. Negative SLR test Lungs clear to auscultation, No wheezing or rhonchi Heart: RRR without murmur, gallop, or rubs. Abdomen soft, non-tender. No masses, organomegaly Extremities: No deformities. No edema Neuro: Gait and speech normal. Reflexes normal and symmetric. Muscular strength intact. Sensation grossly intact. Rectal: Deferred : Deferred LABS: Glucose (mg/dL) Date Value 10/31/2021 155 Potassium (mmol/L) Date Value 10/31/2021 4.6 Sodium (mmol/L) Date Value 10/31/2021 138 Chloride (mmol/L) Date Value 10/31/2021 102 CO2 (mmol/L) Date Value 10/31/2021 25 Creatinine (mg/dL) Date Value 10/31/2021 1.27 BUN (mg/dL) Date Value 10/31/2021 24 Anion Gap (mmol/L) Date Value 10/31/2021 11 Calcium, Total (mg/dL) Date Value 10/31/2021 9.4 Protein, Total (g/dL) Date Value 10/31/2021 7.0 Albumin (g/dL) Date Value 10/31/2021 4.3 Bilirubin, Total (mg/dL) Date Value 10/31/2021 0.4 Alkaline Phosphatase (U/L) Date Value 10/31/2021 94 AST (U/L) Date Value 10/31/2021 23 ALT (U/L) Date Value 10/31/2021 15 WBC Date Value Ref Range Status 10/31/2021 10.78 3.70 - 11.00 k/uL Final RBC Date Value Ref Range Status 10/31/2021 3.98 (L) 4.20 - 6.00 m/uL Final Hemoglobin Date Value Ref Range Status 10/31/2021 14.1 13.0 - 17.0 g/dL Final Hematocrit Date Value Ref Range Status 10/31/2021 42.8 39.0 - 51.0 % Final MCV Date Value Ref Range Status 10/31/2021 107.5 (H) 80.0 - 100.0 fL Final MCH Date Value Ref Range Status 10/31/2021 35.4 (H) 26.0 - 34.0 pg Final MCHC Date Value Ref Range Status 10/31/2021 32.9 30.5 - 36.0 g/dL Final RDW-CV Date Value Ref Range Status 10/31/2021 13.6 11.5 - 15.0 % Final Platelet Count Date Value Ref Range Status 10/31/2021 225 150 - 400 k/uL Final MPV Date Value Ref Range Status 10/31/2021 10.0 9.0 - 12.7 fL Final Abs Neut Date Value Ref Range Status 10/31/2021 10.01 (H) 1.45 - 7.50 k/uL Final Lymph% Date Value Ref Range Status 10/31/2021 5.5 % Final Abs Lymph Date Value Ref Range Status 10/31/2021 0.59 (L) 1.00 - 4.00 k/uL Final Tate% Date Value Ref Range Status 10/31/2021 0.9 % Final Abs Tate Date Value Ref Range Status 10/31/2021 0.10 <0.87 k/uL Final Eosin% Date Value Ref Range Status 10/31/2021 0.1 % Final Abs Eosin Date Value Ref Range Status 10/31/2021 <0.03 <0.46 k/uL Final Baso% Date Value Ref Range Status 10/31/2021 0.2 % Final Abs Baso Date Value Ref Range Status 10/31/2021 <0.03 <0.11 k/uL Final PATH: BM Biopsy 08/2018: A. Bone marrow, right posterior iliac crest, biopsy, aspirate smear, and peripheral blood smear: - Normocellular bone marrow (30%) with trilineage hematopoiesis and 3% plasma cells, see comment. - Decreased iron stores without ring sideroblasts. B. Bone marrow, right posterior iliac crest, clot section: - Normocellular bone marrow (30%) with trilineage hematopoiesis and 3% plasma cells, see comment. 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 Plasma cells are not increased (3%), confirmed by CD138 stain. In situ hybridization for kappa and lambda light chains appear to be polytypic. The special stain for Congo red performed on the core biopsy and clot section is negative for amyloid deposition. The flow cytometric analysis of the marrow aspirate reveals polytypic plasma cells and no immunophenotypic evidence of an abnormal population of T lymphocytes, B lymphocytes or blasts. Overall, there is no morphologic or immunophenotypic evidence of plasma cell neoplasm. Correlation with clinical findings and cytogenetic/FISH studies is recommended. Probe/Control Range Patient/Interpretation 1p32.3(CDKN2C)-1signal/0-3.6% 0%/negative 1q21.3(CKS1B)-3signals/0-3.7% 0%/negative 3q27(BCL6)-3signals/0-2.2% 0%/negative 5b27-59,5p15.2(AKO4S-H4P43:E5D238)-3signals/0-0.6% 0%/negative 8q24(MYC)-bap/0-3.0% 0%/negative 11q22.3(ODILON)-3signals/0-0.6% 0%/negative 12p13(ETV6)-1signal/0-4.1% 0.5%/negative 13q14(RB1)-1signal/0-4.2% 0.5%/negative 13q34(LAMP1)-1signal/0-3.0% 0%/negative 17p13.1(TP53)-1signal/0-3.2% 0.5%/negative 21q22(RUNX1)-3signals/0-0.6% 0%/negative 14q32.3-11q13(IGH-CCND1)/0-0.6% 0%/negative IMAGING: PET 05/2021: 1. Mild metabolic activity associated with the posterior left 9th rib lesion and associated soft tissue mass. 2. No metabolic abnormality identified in the previously described osseous abnormalities in the calvarium, left clavicle and spine. No new site of disease identified. ECHO 03/2021: Summary Left ventricle is normal in size. Global left ventricular systolic function appears low normal. Calculated EF via Torres's method is 50 %. Trivial tricuspid regurgitation. Trivial pulmonic insufficiency. Assessment and Plan: Missy Salgado is a 81 year old year old male here for follow up. MM- therapy sequences summarized above most recently was started on Darzalex and dex and will continue and follow up on myeloma parameters. Discussed bone resorptive agents and patient states that he is not interested understanding the rational for their use. See back in 2 weeks For day 15 of cycle 4. Thank you for the kind referral. If there are any questions and or concerns please do not hesitate to contact me at [phone]. David Molina MD Hematology/Medical Oncology [facility] Jennifer Srivastava spent a total of 25 minutes on the date of the service which included preparing to see the patient, [id number] patient care, completing clinical documentation, obtaining and/or reviewing separately obtained history, performing a medically appropriate examination, counseling and educating the pat ient/family/caregiver and ordering medications, tests, or procedures. Medical Decision Making CC: MD Allie Mixon MD documented in this encounterSouthwest [facility] Center04-20-2022 Miscellaneous Notes* Telephone Encounter - Kanika Aquino RN - 10/18/2021 11:49 AM EDT Pt notified of results and wants to hold off for now and think about it. He will call our office back if he decides to get a referral to ortho. Kanika Aquino RN * Telephone Encounter - Kanika Aquino RN - 10/18/2021 11:48 AM EDT ----- Message from Thi Valera PA-C sent at 10/17/2021 3:17 PM EDT ----- Please call with results * Telephone Encounter - Kanika Aquino RN - 10/18/2021 11:48 AM EDT ----- Message from Thi Valera PA-C sent at 10/17/2021 3:18 PM EDT ----- Could see ortho if he wants to. documented in this encounterSouthwest General Health Center04-19-2022 History of Present illness Narrative* Elo Spear RT(R) - 10/17/2021 2:00 PM EDT Radiology Service Progress Note PATIENT NAME: Missy Salgado DATE OF SERVICE: October 17, 2021 TIME: 2:33 PM PATIENT IDENTITY VERIFICATION COMPLETED USING TWO (2) IDENTIFIERS: Name and Date of confirmedby patient verbally. FALL SCREENING: Has the patient had 2 falls in the last year or 1 fall with injury or currently using an Ambulatory Assistive Device (Walker, Cane, Wheelchair, Crutches, etc.)? No PATIENT GENDER DATA: Male PATIENT RELEVANT IMPLANT DATA REVIEWED: Not Applicable RADIOLOGY DEPARTMENT: General X-ray: Exam(s) Completed: Lower Extremity X- Ray(s): Ankle, Left PERIPHERAL IV DATA: Not applicable SIGNED BY: RT Willian(R) October 17, 2021 2:33 PM documented in this encounterSouthwest General Health Center04-19-2022 History of Present illness Narrative* Thi Valera PA-C - 10/17/2021 1:30 PM EDT PATIENT NAME: Missy Salgado CLINIC NO.: [id number] ATTENDING PHYSICIAN: David Molina MD DATE OF SERVICE: October 17, 2021 (Elements copied from Dr. 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 At that point he received external beam radiation therapy from November 22 to December 13, 2010 with 3600 cGy over 12 fraction with an additional boost which ended December 13, 2010. A bone marrow biopsy in November 2010 was reportedly negative. He had undergone a surgical excision of the T9 mass with posterior fusion which was consistent with a plasma cell cancer and subsequently received 6 cycles of CyBorD which he tolerated well. He was doing well until January 2017 when he presented with left shoulder pain and was noted to havea left clavicular mass which was biopsied on January 2017 and demonstrated a plasma cell malignancy.He again received radiation therapy from March 06 to March 11, 2017 and was doing well. In August 2018 he was noted to have left-sided proptosis and tearing. Eventual CT scan revealed a 5.6 x 3.7 x 6.1 cm left skull base and orbital mass. At that point he declined a biopsy but did receive radiation therapy. His radiation for the left orbital mass and sinus was October 13, 2018 to October 24, 2018. Patient had a negative serum protein electrophoresis and immunofixation from 19 06-2015. In March 2017 he had a 0.55 g/dL of an IgG lambda monoclonal protein which was not changed much in August 2018. Based on the review of his medical records the patient was subsequently started in October 2018 on bortezomib, lenalidomide and dexamethasone and then subsequently left on lenalidomide maintenance which required dose reduction due to renal insufficiency. He had received 6 cycles of bortezomib, lenalidomide as well as dexamethasone which was completed in May 2019 and he continued on maintenance lenalidomide until May 2021. His last bone marrow biopsy was in October 2018 which demonstrated normocellular bone marrow with 3% plasma cells. Apparent FISH studies were normal. He was also evaluated by Dr. Gunn at [facility] lastly in May 2021 which at that point there was concern in regards to disease progression. Patient did undergo a PET scan in May 2021 which demonstrated mild metabolic activity associated with the posterior left ninth rib lesion and an associated soft tissue mass. No metabolic abnormality was identified in the previously described osseous abnormalities in the calvarium, left clavicle and spine. He also did have a bone survey which was completed in March 2021 which demonstratedlytic lesions identified in the posterior left calvarium, posterior left ninth rib, medial left clavicle, T9 compression fracture and possibly L3 and L4. A CT of the chest also in March 2021 demonstrated a new lytic expansile mass within the posterior left ninth rib near the costovertebral junction with associated extraosseous extension and pathologic fracture. Patient also had an echocardiogram in 2020 which showed an EF of 50% with trivial mitral as well astricuspid regurgitation. At that point the patient was planning to travel to [place] and Dr. Gunn due to progression of disease including worsening renal function recommended single agent daratumumab plus dexamethasone which was started at the [facility] in [place] by Dr. Solares. At this point the patient is doing reasonably well, of note he did receive radiation therapy to theleft ninth rib from June 05 through June 09, 2021 at [facility] where he was receiving his oncologic care. At this time he is elected to transfer his care to our facility. He was started on Darzalex and dexamethasone on July 26, 2021 elected to continue therapy which he is tolerating well. Interval History: Missy returns to continue treatment. He has noticed some pain and swelling around his left lower ankle/achilles area. It has hurt for about a month. No injury that he remembers. He does report that he received his fourth covid booster shot about a week ago. Did fine with it. Feeling well overall. No new cough, fevers, chills, shortness of breath. He does get fatigued easy. Current Outpatient Medications Medication Sig Lacto.acidophilus-Bif.animalis 32 billion cell cap Take 1 capsule by mouth once daily. dexAMETHasone (DECADRON) 4 mg tablet Take 5 tablets by mouth one time a week. acyclovir (ZOVIRAX) 400 mg tablet Take 400 mg by mouth. atorvastatin (LIPITOR) 10 mg tablet Take 10 mg by mouth. clopidogrel (PLAVIX) 75 mg tablet Take 75 mg by mouth. rivaroxaban (XARELTO) 20 mg tablet TAKE ONE TABLET BY MOUTH EVERY EVENING, WITH DINNER WITH FOOD ASDIRECTED BY THE [facility] ([phone]) metoprolol tartrate, short acting, (LOPRESSOR) 25 mg tablet Take 12.5 mg by mouth. montelukast (SINGULAIR) 10 mg tablet Take 10 mg by mouth daily at bedtime. No current facility-administered medications for this visit. ALLERGIES Allergen Reactions Amoxicillin Other: See Comments PAST MEDICAL HISTORY Diagnosis Date CAD (coronary artery disease) Hyperlipidemia Hypertension Multiple myeloma (HCC) Myocardial infarction (HCC) PAST SURGICAL HISTORY Procedure Laterality Date BACK SURGERY HX BONE MARROW ASPIRATION 2018 BONE MARROW BIOPSY 02/05/2017 Clavicular head mass CYSTOSCOPY 03/2019 HERNIA REPAIR HX NEEDLE ASPIRATION 10/2010 T9 Bone lesion STENT PLACEMENT No family history on file. Social History Tobacco Use Smoking status: Former Smoker Packs/day: 1.00 Types: Cigarettes Quit date: 07/17/1981 Years since quittin.2 Smokeless tobacco: Never Used Substance Use Topics Alcohol use: Yes Alcohol/week: 7.0 standard drinks Types: 7 Shots of liquor per week Drug use: Not on file REVIEW OF SYSTEMS GENERAL: No weight loss, malaise or fevers. No night sweats. HEENT: Negative for headaches, No changes in hearing or vision, no nose bleeds or other nasal problems. RESPIRATORY: Negative for cough, wheezing and shortness of breath CARDIOVASCULAR: Negative for chest pain, leg swelling and palpitations GI: Negative for abdominal discomfort, blood in stools or black stools and change in bowel habits : Negative for dysuria, frequency and incontinence MUSCULOSKELETAL: left ankle pain SKIN: Negative for lesions, rash, and itching. HEMATOLOGY/LYMPHOLOGY Negative for prolonged bleeding, bruising easily, and swollen nodes. NEURO: Negative for numbness or tingling of hands/feet. No weakness. PHYSICAL EXAMINATION: BP 121/74 Pulse 95 Temp 36.6 C (97.9 F) (Temporal) Resp 16 Ht 183.3 cm (6' 0.17 ) Wt 92.2kg (203 lb 3.2 oz) SpO2 94% BMI 27.43 kg/m ECOG PERFORMANCE STATUS: 0- Fully active, able to carry on all pre-disease performance w/o restriction. General: Alert and oriented, no distress, pleasant and cooperative. Heart: Regular, normal S1 and S2, no murmurs, rubs, or gallops Lungs: Clear to auscultation bilaterally Abdomen: Benign Extremities: +left achilles area with tenderness and mild swelling LABS: Hemoglobin (g/dL) Date Value 10/17/2021 14.7 Hematocrit (%) Date Value 10/17/2021 43.8 WBC (k/uL) Date Value 10/17/2021 9.80 Platelet Count (k/uL) Date Value 10/17/2021 232 Results for MISSY SALGADO ( ) as of 10/17/2021 14:56 Ref. Range 10/17/2021 12:54 Sodium Latest Ref Range: 136 - 144 mmol/L 136 Potassium Latest Ref Range: 3.7 - 5.1 mmol/L 4.9 Chloride Latest Ref Range: 97 - 105 mmol/L 101 CO2 Latest Ref Range: 22 - 30 mmol/L 26 BUN Latest Ref Range: 9 - 24 mg/dL 24 Creatinine Latest Ref Range: 0.73 - 1.22 mg/dL 1.27 (H) Glucose Latest Ref Range: 74 - 99 mg/dL 152 (H) Protein, Total Latest Ref Range: 6.3 - 8.0 g/dL 7.1 Calcium Latest Ref Range: 8.5 - 10.2 mg/dL 9.4 Albumin Latest Ref Range: 3.9 - 4.9 g/dL 4.1 Bilirubin, Total Latest Ref Range: 0.2 - 1.3 mg/dL 0.5 Alkaline Phosphatase Latest Ref Range: 38 - 113 U/L 94 ALT Latest Ref Range: 10 - 54 U/L 14 AST Latest Ref Range: 14 - 40 U/L 24 Anion Gap Latest Ref Range: 9 - 18 mmol/L 9 eGFR Latest Ref Range: >=60 mL/min/1.73m 57 (L) PATH: BM Biopsy 08/2018: A. Bone marrow, right posterior iliac crest, biopsy, aspirate smear, and peripheral blood smear: - Normocellular bone marrow (30%) with trilineage hematopoiesis and 3% plasma cells, see comment. - Decreased iron stores without ring sideroblasts. B. Bone marrow, right posterior iliac crest, clot section: - Normocellular bone marrow (30%) with trilineage hematopoiesis and 3% plasma cells, see comment. 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 Plasma cells are not increased (3%), confirmed by CD138 stain. In situ hybridization for kappa and lambda light chains appear to be polytypic. The special stain for Congo red performed on the core biopsy and clot section is negative for amyloid deposition. The flow cytometric analysis of the marrow aspirate reveals polytypic plasma cells and no immunophenotypic evidence of an abnormal population of T lymphocytes, B lymphocytes or blasts. Overall, there is no morphologic or immunophenotypic evidence of plasma cell neoplasm. Correlation with clinical findings and cytogenetic/FISH studies is recommended. Probe/Control Range Patient/Interpretation 1p32.3(CDKN2C)-1signal/0-3.6% 0%/negative 1q21.3(CKS1B)-3signals/0-3.7% 0%/negative 3q27(BCL6)-3signals/0-2.2% 0%/negative 6d45-01,5p15.2(OXI1V-K6X25:T4G842)-3signals/0-0.6% 0%/negative 8q24(MYC)-bap/0-3.0% 0%/negative 11q22.3(ODILON)-3signals/0-0.6% 0%/negative 12p13(ETV6)-1signal/0-4.1% 0.5%/negative 13q14(RB1)-1signal/0-4.2% 0.5%/negative 13q34(LAMP1)-1signal/0-3.0% 0%/negative 17p13.1(TP53)-1signal/0-3.2% 0.5%/negative 21q22(RUNX1)-3signals/0-0.6% 0%/negative 14q32.3-11q13(IGH-CCND1)/0-0.6% 0%/negative IMAGING: PET 05/2021: 1. Mild metabolic activity associated with the posterior left 9th rib lesion and associated soft tissue mass. 2. No metabolic abnormality identified in the previously described osseous abnormalities in the calvarium, left clavicle and spine. No new site of disease identified. ECHO 03/2021: Summary Left ventricle is normal in size. Global left ventricular systolic function appears low normal. Calculated EF via Torres's method is 50 %. Trivial tricuspid regurgitation. Trivial pulmonic insufficiency. 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 At that point patient received 6 cycles of CyBorD. Did well until 2016 when he presented with a left clavicular plasmacytoma for which she received radiation therapy and subsequently in August 2018 presented with left-sided proptosis and the skull base plasmacytoma for which he received radiation therapy and then subsequently was placed on lenalidomide, bortezomib and dexamethasone which he completed 6 cycles until May 2019 and was maintained on lenalidomide, with also a dose reduction to 5 mg since May 2021. At that time he developed a left posterior ninth rib lesion which again was radiated. He was evaluated at [facility] and was recommended to start daratumumab plus dexamethasone which he initi ated at the [facility] in [place] on July 26, 2021. Missy continues to tolerate treatment well. Plan is to continue with treatment today and see him in2 weeks. Discussed denosumab, however the patient does not wish to start it at this time. He will discuss further with Dr. Molina at his next visit. He is on calcium supplement. Left ankle pain--will check an xray today. He will continue on acyclovir. He will continue follow-up with cardiology in regards to his myocardial infarction. His last echocardiogram in March 2021 showed a low normal EF of 50% but this was in the setting of a recent IN. He did undergo and was noted to have a distal RCA and RPL stent thrombosis. He had angioplasty only of the distal RCA previously placed stent and RPL stent was then placed and he has significant disease of the proximal LAD and medical therapy was recommended, this was performed April 25, 2021. Continue follow-up with cardiology Thi Valera PA-C CC: MD Raquel Snowden MD Marcia Braun, MD documented [facility] History of Present illness Narrative* David Molina MD - 09/27/2021 11:23 AM EDT PATIENT NAME: Missy Salgado [facility] NO.: [id number] ATTENDING PHYSICIAN: David Molina MD DATE OF SERVICE: October 01, [address] Allie Solares thank you for referring Mr. Missy Salgado for an opinion regarding ongoing management of his multiple myeloma. 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 At that point he received external beam radiation therapy from November 22 to December 13, 2010 with 3600 cGy over 12 fraction with an additional boost which ended December 13, 2010. A bone marrow biopsy in November 2010 was reportedly negative. He had undergone a surgical excision of the T9 mass with posterior fusion which was consistent with a plasma cell cancer and subsequently received 6 cycles of CyBorD which he tolerated well. He was doing well until January 2017 when he presented with left shoulder pain and was noted to havea left clavicular mass which was biopsied on January 2017 and demonstrated a plasma cell malignancy.He again received radiation therapy from March 06 to March 11, 2017 and was doing well. In August 2018 he was noted to have left-sided proptosis and tearing. Eventual CT scan revealed a 5.6 x 3.7 x 6.1 cm left skull base and orbital mass. At that point he declined a biopsy but did receive radiation therapy. His radiation for the left orbital mass and sinus was October 13, 2018 to October 24, 2018. Patient had a negative serum protein electrophoresis and immunofixation from 19 06-2015. In March 2017 he had a 0.55 g/dL of an IgG lambda monoclonal protein which was not changed much in August 2018. Based on the review of his medical records the patient was subsequently started in October 2018 on bortezomib, lenalidomide and dexamethasone and then subsequently left on lenalidomide maintenance which required dose reduction due to renal insufficiency. He had received 6 cycles of bortezomib, lenalidomide as well as dexamethasone which was completed in May 2019 and he continued on maintenance lenalidomide until May 2021. His last bone marrow biopsy was in October 2018 which demonstrated normocellular bone marrow with 3% plasma cells. Apparent FISH studies were normal. He was also evaluated by Dr. Gunn at [facility] lastly in May 2021 which at that point there was concern in regards to disease progression. Patient did undergo a PET scan in May 2021 which demonstrated mild metabolic activity associated with the posterior left ninth rib lesion and an associated soft tissue mass. No metabolic abnormality was identified in the previously described osseous abnormalities in the calvarium, left clavicle and spine. He also did have a bone survey which was completed in March 2021 which demonstratedlytic lesions identified in the posterior left calvarium, posterior left ninth rib, medial left clavicle, T9 compression fracture and possibly L3 and L4. A CT of the chest also in March 2021 demonstrated a new lytic expansile mass within the posterior left ninth rib near the costovertebral junction with associated extraosseous extension and pathologic fracture. Patient also had an echocardiogram in 2020 which showed an EF of 50% with trivial mitral as well astricuspid regurgitation. At that point the patient was planning to travel to [place] and Dr. Gunn due to progression of disease including worsening renal function recommended single agent daratumumab plus dexamethasone which was started at the [facility] in [place] by Dr. Solares. At this point the patient is doing reasonably well, of note he did receive radiation therapy to theleft ninth rib from June 05 through June 09, 2021 at [place] where he was receiving his oncologic care. At this time he is elected to transfer his care to our facility. He was started on Darzalex and dexamethasone on July 26, 2021 elevated to continue therapy which he is tolerating well. Current Outpatient Medications Medication Sig Lacto.acidophilus-Bif.animalis 32 billion cell cap Take 1 capsule by mouth once daily. acyclovir (ZOVIRAX) 400 mg tablet Take 400 mg by mouth. atorvastatin (LIPITOR) 10 mg tablet Take 10 mg by mouth. clopidogrel (PLAVIX) 75 mg tablet Take 75 mg by mouth. rivaroxaban (XARELTO) 20 mg tablet TAKE ONE TABLET BY MOUTH EVERY EVENING, WITH DINNER WITH FOOD ASDIRECTED BY THE [facility] ([phone]) metoprolol tartrate, short acting, (LOPRESSOR) 25 mg tablet Take 12.5 mg by mouth. montelukast (SINGULAIR) 10 mg tablet Take 10 mg by mouth daily at bedtime. dexAMETHasone (DECADRON) 4 mg tablet Take 5 tablets by mouth one time a week. No current facility-administered medications for this visit. ALLERGIES Allergen Reactions Amoxicillin Other: See Comments PAST MEDICAL HISTORY Diagnosis Date CAD (coronary artery disease) Hyperlipidemia Hypertension Multiple myeloma (HCC) Myocardial infarction (HCC) PAST SURGICAL HISTORY Procedure Laterality Date BACK SURGERY HX BONE MARROW ASPIRATION 2018 BONE MARROW BIOPSY 02/05/2017 Clavicular head mass CYSTOSCOPY 03/2019 HERNIA REPAIR HX NEEDLE ASPIRATION 10/2010 T9 Bone lesion STENT PLACEMENT History reviewed. No pertinent family history. Social History Tobacco Use Smoking status: Former Smoker Packs/day: 1.00 Types: Cigarettes Quit date: 07/17/1981 Years since quittin.2 Smokeless tobacco: Never Used Substance Use Topics Alcohol use: Yes Alcohol/week: 7.0 standard drinks Types: 7 Shots of liquor per week Drug use: Not on file REVIEW OF SYSTEMS GENERAL: No weight loss, malaise or fevers. No night sweats. HEENT: Negative for headaches, No changes in hearing or vision, no nose bleeds or other nasal problems. RESPIRATORY: Negative for cough, wheezing and shortness of breath CARDIOVASCULAR: Negative for chest pain, leg swelling and palpitations GI: Negative for abdominal discomfort, blood in stools or black stools and change in bowel habits : Negative for dysuria, frequency and incontinence MUSCULOSKELETAL: Negative for joint pain or swelling, back pain, and muscle pain. SKIN: Negative for lesions, rash, and itching. HEMATOLOGY/LYMPHOLOGY Negative for prolonged bleeding, bruising easily, and swollen nodes. NEURO: Negative for numbness or tingling of hands/feet. No weakness. PHYSICAL EXAMINATION: BP 144/84 Pulse 66 Temp 36.3 C (97.3 F) (Temporal) Resp 18 Ht 182.9 cm (6' 0.01 ) Wt 92.4kg (203 lb 12.8 oz) SpO2 97% BMI 27.63 kg/m Wt 92.4 kg (203 lb 12.8 oz) BMI 27.63 kg/m2 Last 3 Encounter Wt Readings: Date: Wt: 09/27/2021 92.4 kg (203 lb 12.8 oz) General appearance:ECOG PERFORMANCE STATUS: 0- Fully active, able to carry on all pre-disease performance w/o restriction. Patient in NAD. Skin: Skin color, texture, turgor normal. No rashes or lesions. Eyes: Anicteric sclera. Pupils are equally round and reactive to light. Extraocular movements are intact. Breast: No palpable breast masses. No nipple change or discharge. Lymph Nodes: No cervical, supraclavicular, axillary or inguinal adenopathy. Oropharynx: Lips, mucosa, and tongue normal. Back: No pain to percussion. Negative SLR test Lungs clear to auscultation, No wheezing or rhonchi Heart: RRR without murmur, gallop, or rubs. Abdomen soft, non-tender. No masses, organomegaly Extremities: No deformities. No edema Neuro: Gait and speech normal. Reflexes normal and symmetric. Muscular strength intact. Sensation grossly intact. Rectal: Deferred : Deferred LABS: No results found for: GLUC, K, NA, CHLOR, CO2, CREAT, BUN, ANION, CA, TPROT, ALB, TBILI, ALKPHOS, AST, ALT No results found for: WBC, RBC, HB, HCT, MCV, MCH, MCHC, RDWCV, PLT, MPV, MPV, NEUT, ABSNEUT, LYMPHP, ABSLYMPH, MONOP, ABSMONO, EOSINP, ABSEOSIN, BASOP, ABSBASO PATH: BM Biopsy 08/2018: A. Bone marrow, right posterior iliac crest, biopsy, aspirate smear, and peripheral blood smear: - Normocellular bone marrow (30%) with trilineage hematopoiesis and 3% plasma cells, see comment. - Decreased iron stores without ring sideroblasts. B. Bone marrow, right posterior iliac crest, clot section: - Normocellular bone marrow (30%) with trilineage hematopoiesis and 3% plasma cells, see comment. 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 Plasma cells are not increased (3%), confirmed by CD138 stain. In situ hybridization for kappa and lambda light chains appear to be polytypic. The special stain for Congo red performed on the core biopsy and clot section is negative for amyloid deposition. The flow cytometric analysis of the marrow aspirate reveals polytypic plasma cells and no immunophenotypic evidence of an abnormal population of T lymphocytes, B lymphocytes or blasts. Overall, there is no morphologic or immunophenotypic evidence of plasma cell neoplasm. Correlation with clinical findings and cytogenetic/FISH studies is recommended. Probe/Control Range Patient/Interpretation 1p32.3(CDKN2C)-1signal/0-3.6% 0%/negative 1q21.3(CKS1B)-3signals/0-3.7% 0%/negative 3q27(BCL6)-3signals/0-2.2% 0%/negative 2r12-73,5p15.2(MXV0R-C2A30:B3N448)-3signals/0-0.6% 0%/negative 8q24(MYC)-bap/0-3.0% 0%/negative 11q22.3(ODILON)-3signals/0-0.6% 0%/negative 12p13(ETV6)-1signal/0-4.1% 0.5%/negative 13q14(RB1)-1signal/0-4.2% 0.5%/negative 13q34(LAMP1)-1signal/0-3.0% 0%/negative 17p13.1(TP53)-1signal/0-3.2% 0.5%/negative 21q22(RUNX1)-3signals/0-0.6% 0%/negative 14q32.3-11q13(IGH-CCND1)/0-0.6% 0%/negative IMAGING: PET 05/2021: 1. Mild metabolic activity associated with the posterior left 9th rib lesion and associated soft tissue mass. 2. No metabolic abnormality identified in the previously described osseous abnormalities in the calvarium, left clavicle and spine. No new site of disease identified. ECHO 03/2021: Summary Left ventricle is normal in size. Global left ventricular systolic function appears low normal. Calculated EF via Torres's method is 50 %. Trivial tricuspid regurgitation. Trivial pulmonic insufficiency. 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 At that point patient received 6 cycles of CyBorD. Did well until 2016 when he presented with a left clavicular plasmacytoma for which she received radiation therapy and subsequently in August 2018 presented with left-sided proptosis and the skull base plasmacytoma for which he received radiation therapy and then subsequently was placed on lenalidomide, bortezomib and dexamethasone which he completed 6 cycles until May 2019 and was maintained on lenalidomide, with also a dose reduction to 5 mg since May 2021. At that time he developed a left posterior ninth rib lesion which again was radiated. He was evaluated at [facility] and was recommended to start daratumumab plus dexamethasone which he initi ated at the [facility] in [place] on July 26, 2021. Patient appears to be tolerating therapy well. He has been receiving IV daratumumab. I suggested that we switch him over for continuation of his therapy for subcutaneous daratumumab which she agreed to do so. We will resume therapy in 1 week. We will recheck his myeloma parameters. He will continue on acyclovir. He will continue follow-up with cardiology in regards to his myocardial infarction. His last echocardiogram in March 2021 showed a low normal EF of 50% but this was in the setting of a recent IN. He did undergo and was noted to have a distal RCA and RPL stent thrombosis. He had angioplasty only of the distal RCA previously placed stent and RPL stent was then placed and he has significant disease of the proximal LAD and medical therapy was recommended, this was performed April 25, 2021. Continue follow-up with cardiology Dear Dr. Allie Solares thank you for allowing me to participate in Mr. Missy Salgado care, if there are any questions or concerns please do not hesitate to contact me at the number below. David Molina M.D. Hematology/Medical Oncology [facility] [phone] CC: MD Raquel Snowden MD Marcia Braun, MD I spent a total of 60 minutes on the date of the service which included preparing to see the patient, [id number] patient care, completing clinical documentation, obtaining and/or reviewing separately obtained history, performing a medically appropriate examination, counseling and educating the pat ient/family/caregiver, ordering medications, tests, or procedures and communicating with other HCPs(not separately reported). [facility] in this [facility] History of Present illness Narrative* Saira Ortiz RN - 05/09/2021 9:00 AM EST Cardiac Rehab Initial History and Assessment Missy Salgado 1940 [id number] 05/09/2021 Primary Diagnosis: STEMI 04/25/2021 Living Will: [] Yes [x] No On File: [] Yes [] No [x] N/A Durable Power of Ordering Box Operator: [x] Yes [] No Medical History Past Medical History: Diagnosis Date Atrial fibrillation (HCC) Cataract Erectile dysfunction Macular degeneration Plasmacytoma (HCC) 11/10/10 Family History No family history on file. Symptoms: 1. Angina [] None [x] passed out [] Tightness [] Shortness of Breath [] Pressure [] Nausea [] Sharp, Stabbing [] Pallor [] Indigestion, Heartburn [] Sweaty Where was discomfort located? Precipitating Factors? Relieved by: 2. Arrhythmia [] None [] Irregular Beats (skips) [] Pacer [x] Atrial Fibrillation [] AICD Arrhythmia Medications: Xarelto, Metoprolol 3. Congestive Heart Failure [x] None [] Pedal Edema [] Unusual weight gain [] SOB with mild exertion [] Fatigue 4. Vascular [x] None [] Carotid Narrowing [] R [] L [] Peripheral claudication [] R [] L 5. Musculoskeletal [] None [x] Back Pain Where? 2011 rods implanted for CA of spine [] Joint discomfort Where? Socio-Economic Marital Status: Nutrition Appetite: [] Too Good [x] Good [] Poor Diet: Regular Eating out 1 times/wk Alcohol Consumption: [x] Yes [] No Type: [place] Frequency: Every evening Caffeine: [] Yes [x] No Type: Amount: Water intake per day: 2 quarts or more Vitamins/Natural herbal products: Probiotic, Oscal, B complex Psychological [] Depression [] Tearful [] Fearful [] Cheerful [] Anxious [x] None [] Overwhelmed Treatment: NA Diabetes [] Yes [x] No How Long: How do you manage your diabetes: Do you check your blood sugar [] Yes [] No How often: What does your blood sugar usually run Have you seen a aemt or cosmetology educator [] Yes [] No Diabetes Medication: NA Stress Source: Limitations from Cancer Relaxation techniques: Swimming 3X week Hobbies: Hunting, fishing Level of Education [] 8th Grade [] Associates [] Masters [x] High School [] Bachelor [] Other: Depression Screening: [x] PHQ9 completed - score: 2 Cardiac Rehab Pre - Test [x] Score: 53% Physical Findings Weight: 200.8 pounds Height: 72 inches BMI: 27.12 Waist Circumference: 41 inches Cardiovascular- No edema, apical pulse regular to auscultation, strong bilateral upper and lower extremity pulses 12-Lead EKG on 25-Apr-2021 VR- 42 DE- 332 ms QRS- 102 ms QT- 504 ms Cardiac Cath- 04/24/2021 PTCA RCA and/or branches Ejection Fraction- 50% per TTE on 04/27/2021 Pulmonary- Breath Sounds: Clear throughout SpO2: 95% Neurological- No deficit noted or reported. Peripheral Vascular- No deficit noted or reported. Muscular Skeletal- No deficit noted or reported. Pain Assessment- Pain Level Tolerable 0/10 on 10 point scale Location/ radiation/ Frequency/ Duration- Endocrine- No deficit noted or reported. Gastrointestinal- No deficit noted or reported. Genitourinary- Cancer - receiving treatment at [facility] Physical limitations- only as per above Patient Goals: Get back to normal physical activities Program Goals: Increase stamina, strength, and flexibility by exercising 31-50 total minutes by engaging in aerobic, resistance, and flexibility workout modalities with the goal of progressively achieving at least 0.5 to 1.0 metabolic equivalant improvement as evidenced by daily session reports and pre/post MET levels. Achieve and progress prescribed exercise frequency, intensity, time, and type based upon initial evaluation and submaximal graded exercise results as evidenced by the attaining and maintaining the prescribed target heart rate range, a Julián rating of perceived exertion between 11 and 16, duration of>30 50 minutes using multiple exercise modes for at least 3 5 days per week to accumulate a minimum total of 2.5 hours per week of moderate aerobic intensity exercise, as tolerated, evidenced by daily session reports and home workout log. Gradually lose 1 4 lb of body weight over the program, through moderating nutrional intake and performing regular aerobic and strength training exercises as prescribed with improvement evidenced by daily session report comparison. Decrease waist circumference by program completion if waist measurement is > or = 40 inches (male) / > or = 35 inches (female). Introduce and progress 8-10 different bilateral UE and LE progressive resistance exercises focused on major muscle groups using 1-3 sets each per lift, on 2-3 non-consecutive days implementing free and machine weights and/or TheraBands, as appropriate, with a resistance of 40-60% 1-repetition maximum or 10 -15 repetitions to progressive overload and increasing resistance once repetitions have progressed to 15 reps and feel fairly light on 2 prior occasions. Achieve and maintain an optimal average resting blood pressure of <130 / 80 mmHg, or as indicated by this patient's referring provider. Strive for blood lipid optimization with an LDL-C of <100 mg/dL or LDL 70 mg/dL, an HDL-C of > or = 40 mg/dL for men and > or = 50 mg/dL for women, and a triglyceride level of <150 mg/dL via lifestyle education, behavioral modification, and medication compliance. Develop regular home aerobic exercise program for 20 60 minutes at least 2 non- rehab days per week,excluding 5 10 minutes warm-up and cool-down periods, being tracked on home workout log. Minimize self-reported psycho-social feelings of stress in the next 30 days as evidenced by pre- and post- surveys and by routine rounding with patient to ascertain subjective improvements. Per aemt's recommendations, develop individualized heart healthy eating plan as evidenced by pre- and post-program nutriton survey and routine rounding with patient to ascertain progression toward goal per patient's self report, food diary, and [id number] screening survey. Demonstrate knowledge about risk factor reduction, lifestyle modification, and heart health strategies with an increase of >=5% accuracy via pre- and post- program education assessment screening tool. documented [facility] this [facility] Work Phone: [phone] History of Present illness Narrative* Asya Kaplan - 04/27/2021 4:23 PM EDT CLINICAL PHARMACY NOTE: MEDS TO BEDS Total # of Prescriptions Filled: 2 The following medications were delivered to the patient: Aspirin 81 mg chew tab atorvastTIN 80 MG TAB Additional DocumentATION: Medications delivered to patient in his room 1001 @3:53pm clover. * Beto Stockton MD - 04/27/2021 2:59 PM EDT Cath films reviewed with Dr. Gan. Plan for PCI to LAD with possible Rota/CSI as OP. ECHO reviewed with Dr. Ana Jennings. Low normal LVEF without any significant valvular abnormalities. Will discharge him on ASA, Plavix and xarelto. Follow up in clinic in 2 weeks. Will discontinue ASA after 1 month. Beto Stockton CV fellow * Kanika Moody - 04/27/2021 2:38 PM EDT Echo completed at the bedside * Beto Stockton MD - 04/27/2021 12:47 PM EDT Physician Progress Note PATIENT: MISSY [facility]GADO [facility] #: [id number] : 1940 ADMIT DATE: 04/25/2021 12:43 PM DISCH DATE: RESPONDING PROVIDER #: BETO STOCKTON MD QUERY TEXT: Stage of Chronic Kidney Disease: Please provide further specificity, if known. Clinical indicators include: bun, creatinine, bnp, chronic kidney disease, r Options provided: -- Chronic kidney disease stage 1 -- Chronic kidney disease stage 2 -- Chronic kidney disease stage 3 -- Chronic kidney disease stage 3a -- Chronic kidney disease stage 3b -- Chronic kidney disease stage 4 -- Chronic kidney disease stage 5 -- Chronic kidney disease stage 5, requiring dialysis -- End stage renal disease -- Other - I will add my own diagnosis -- Disagree - Not applicable / Not valid -- Disagree - Clinically Unable to determine / Unknown PROVIDER RESPONSE TEXT: The patient has chronic kidney disease stage 3. Electronically signed by: BETO STOCKTON MD 04/27/2021 12:46 PM * Luis Enrique Jennings, DO - 04/27/2021 6:48 AM EDT Images from the original note were not included. [employer] Progress Note Date: 04/27/2021 Patient name: Missy Salgado Date of admission: 04/25/2021 12:43 PM Date of : 1940 PCP: Alexei Guzmán MD Reason for Admission: Subjective: There were no acute events overnight, remained hemodynamically stable, denies chest pain, dyspnea, orthopnea or palpitations. BB on hold 2/2 Bradycardia Medications: Scheduled Meds: sodium chloride flush 5-40 mL IntraVENous 2 times per day atorvastatin 80 mg Oral Nightly aspirin 81 mg Oral Daily metoprolol tartrate 12.5 mg Oral BID clopidogrel 75 mg Oral Daily Continuous Infusions: sodium chloride CBC: Recent Labs 04/25/21 1004 04/26/21 0741 WBC 7.9 7.3 HGB 13.1 12.4* PLT 218 199 BMP: Recent Labs 04/25/21 1004 04/26/21 0741 NA 138 138 K 4.1 4.4 CL 104 104 CO2 24 25 BUN 22 16 CREATININE 1.47* 1.25* GLUCOSE 126* 109* Hepatic: Recent Labs 04/25/21 1004 04/26/21 0741 AST 19 97* ALT 15 24 BILITOT 0.45 0.38 ALKPHOS 80 76 Troponin: No results for input(s): TROPONINI in the last 72 hours. BNP: No results for input(s): BNP in the last 72 hours. Lipids: No results for input(s): CHOL, HDL in the last 72 hours. Invalid input(s): LDLCALCU INR: No results for input(s): INR in the last 72 hours. Objective: Vitals: BP 105/80 Pulse 66 Temp 98.2 F (36.8 C) (Oral) Resp 12 Wt 191 lb 2.2 oz (86.7 kg) SpO2 98% BMI 25.92 kg/m General appearance: awake, alert, in no apparent respiratory distress HEENT: Head: Normocephalic, no lesions, without obvious abnormality Neck: no JVD Lungs: clear to auscultation bilaterally, no basilar rales, no wheezing Heart: regular rate and rhythm, S1, S2 normal, no murmur, click, rub or gallop Abdomen: soft, non-tender; bowel sounds normal Extremities: No LE edema Neurologic: Mental status: Alert, oriented. Motor and sensory not done. EKG: Echocardiogram: Coronary Angiography: Distal RCA and RPL stent thrombosis. Successful angioplasty only of distal RCA previously placed stent and RPL stent. Significant disease of proximal LAD. LVEF 55%. Assessment / Acute Cardiac Problems: 1. 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 History of paroxsymal atrial fibrillation on Xarelto 3. History of CAD s/p with stent (Jan);05/2020 4. 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 Chronic kidney disease Cr 1.41 Plan of Treatment: 1. On ASA, PLavix, Lipitor. 2. BB on hold 2/2 bradycardia and hypotension 3. 2D echo pending. 4. Has residual disease in LAD. Will discuss with Dr. Gan today 5. From now on will likely need bridging prior to any surgery. 6. Creatinine at baseline Discussed with patient and nursing. Beto Stockton MD MD Fellow, Cardiovascular Diseases [facility] Pager - [phone] Attending Bell Cleaner Addendum: I have reviewed and performed the history, physical, subjective, objective, assessment, and plan with the student/resident/fellow/MEN'S BASKETBALL COACH and agree with the note. I performed the history and physical personally. I have made changes to the note above as needed. Awaiting 2d Echo Will discuss with Interventional cardiology today the plan regarding his residual LAD disease From now on will need bridging prior to any surgery Will need Triple Therapy for 1 month if no PCI is planned to LAD this admission Thank you for allowing me to participate in the care of this patient, please do not hesitate to call if you have any questions. Luis Enrique Jennings, DO, FACC, RPVI, FASE, DES [place] [employer] [facility] * Suzan Rodriguez RN - 04/26/2021 6:[address] Stockton updated on patient status. No new orders received at this time. Will continue to monitor patient. * Luis Enrique Jennings DO - 04/26/2021 6:15 AM EDT Images from the original note were not included. [place] [employer] Progress Note Date: 04/25/2021 Patient name: Missy Salgado Date of admission: 04/25/2021 12:43 PM Date of : 1940 PCP: Alexei Guzmán MD Reason for Admission: Subjective: There were no acute events overnight, remained hemodynamically stable, denies chest pain, dyspnea, orthopnea or palpitations. BB on hold 2/2 Bradycardia Medications: Scheduled Meds: sodium chloride flush 5-40 mL IntraVENous 2 times per day atorvastatin 80 mg Oral Nightly [START ON 04/26/2021] aspirin 81 mg Oral Daily metoprolol tartrate 12.5 mg Oral BID [START ON 04/26/2021] clopidogrel 300 mg Oral Once Continuous Infusions: sodium chloride CBC: Recent Labs 04/25/21 1004 WBC 7.9 HGB 13.1 PLT 218 BMP: Recent Labs 04/25/21 1004 NA 138 K 4.1 CL 104 CO2 24 BUN 22 CREATININE 1.47* GLUCOSE 126* Hepatic: Recent Labs 04/25/21 1004 AST 19 ALT 15 BILITOT 0.45 ALKPHOS 80 Troponin: No results for input(s): TROPONINI in the last 72 hours. BNP: No results for input(s): BNP in the last 72 hours. Lipids: No results for input(s): CHOL, HDL in the last 72 hours. Invalid input(s): LDLCALCU INR: No results for input(s): INR in the last 72 hours. Objective: Vitals: BP (!) 94/51 Pulse 58 Temp 97.9 F (36.6 C) (Oral) Resp 18 SpO2 98% General appearance: awake, alert, in no apparent respiratory distress HEENT: Head: Normocephalic, no lesions, without obvious abnormality Neck: no JVD Lungs: clear to auscultation bilaterally, no basilar rales, no wheezing Heart: regular rate and rhythm, S1, S2 normal, no murmur, click, rub or gallop Abdomen: soft, non-tender; bowel sounds normal Extremities: No LE edema Neurologic: Mental status: Alert, oriented. Motor and sensory not done. EKG: Echocardiogram: Coronary Angiography: Distal RCA and RPL stent thrombosis. Successful angioplasty only of distal RCA previously placed stent and RPL stent. Significant disease of proximal LAD. LVEF 55%. 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 BB on hold 2/2 bradycardia and hypotension 2D echo Has residual disease in LAD. Plan to discuss case in cath conference next week Creatinine at baseline Discussed with patient and nursing. Beto Stockton MD MD Fellow, Cardiovascular Diseases [facility] Pager - [phone] Attending Bell Cleaner Addendum: I have reviewed and performed the history, physical, subjective, objective, assessment, and plan with the student/resident/fellow/MEN'S BASKETBALL COACH and agree with the note. I performed the history and physical personally. I have made changes to the note above as needed. STEMI while holding AP/AC for TURBT - s/p PTCA to instent thrombosis of RCA/RPL Residual LAD disease - will discuss with interventional plan for either PCI or single vessel BELTRAN - 2d Echo is pending - from now on will likely need bridging prior to any surgery. Thank you for allowing me to participate in the care of this patient, please do not hesitate to call if you have any questions. Luis Enrique Jennings DO, FACC, RPVI, FASE, FASNC [place] [employer] [facility] documented in this [facility] Phone: 1(811) 363-305209-03-2021 Hospital Discharge instructions* Instructions* Janet Tafoya DO - 03/03/2021 Take pain medication as prescribed follow-up with your heel burnisher dR. TONY MURPHY for your scheduled appointment return to ER for any worsening pain or difficulty breathing. documented [facility] this [facility] Phone: 1(324) 442-735608-26-2021 History of Present illness Narrative* Fernandez Romo, PT - 02/23/2021 9:15 AM EDT Patient denies vertigo over the last few days. He had negative Swiss-Hallpike and roll testing today.Today's appointment will be cancelled. Fernandez Romo PT, DPT documented in this 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 He reports he continues to feel weak and unstable. Exercises: Exercise 1: HEP: Ortiz Beckham, АННАR, bridging Exercise 10: SciFIT: level 2.5 hills x6 minutes Measures obtained for physician update Amb with longer stride length Assessment Body structures, Functions, Activity limitations: Decreased functional mobility , Decreased ADL status, Decreased balance, Decreased posture, Decreased strength, Decreased endurance, Vestibular Impairment, Decreased high-level IADLs Assessment: Patient denies dizziness, and has negative BPPV testing. He demonstrates mild improvement with strength, but reports continued difficulty with ambulation. He was educated on proper stridelength and was educated on internally cueing to avoid shuffling gait pattern. He requests to be puton hold at this time as he is going on vacation and continues to work out at the [facility] 3x/week. Activity Tolerance Activity Tolerance: Patient Tolerated treatment well Patient Education Patient Education: HEP and home safety Pt verbalized/demonstrated good understanding: [x] Yes [] No, pt required further clarification. Post Treatment Pain: 0/10 Plan Times per week: 2-3 Plan weeks: 6 Goals (Total # of Visits to Date: 12) Short term goals Time Frame for Short term goals: 3 weeks Short term goal 1: Patient will be initiated with a HEP--met Short term goal 2: Patient will tolerate canalith repositioning maneuvers--met Short term goal 3: Patient will be initiated with LE strengthening exercises--met shelter goals Time Frame for pack out operator goals : 6 weeks pack out operator goal 1: Patient will be independent and compliant with a HEP -MET shelter goal 2: Patient will demonstrate negative bilateral Cy-Hallpike testing indicating inactive BPPV-MET pack out operator goal 3: Patient will improve LE strength to >4/5 in all major joints and planes for ADLs -PARTIALLY MET shelter goal 4: Patient will report 60% improvement in overall symptoms and mobility -NOT MET Minutes Tracking: Time In: 914 Time Out: 0940 Minutes: 25 Timed Code Treatment Minutes: 24 Minutes Fernandez Romo PT, DPT Date: 01/26/2021 documented [facility] this [facility] Phone: 1(433) 369-755907-27-2021 History of Present illness Narrative* Igor Rojas - 01/24/2021 11:15 AM EDT [facility] Daily Note Patient: Missy Salgado : 1940 CSN #: [id number] Referring Practitioner: Nic Garcia MD Referral Date : 12/20/20 Date: 01/24/2021 Diagnosis: General weakness, R53.1, multiple myeloma in remission, 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 States he feels weak and unstable. Exercises: Exercise 4: sink ex 15x ea on Air ex Exercise 5: sit <> stand 10x2, no child welfare specialist Exercise 7: Hurdles for/side 15x ea, 12 Exercise 8: Airex WBOS/NBOS/SLS [address] with fingertip x2 at counter Exercise 9: LSU/FSU's 10x ea LE with HRx1 Exercise 10: SciFIT: level 2.5 hills x6 minutes Exercise 11: Retro ambulation with resistance 15# x8 Exercise 13: BOSU standing on flat surface Assessment Assessment: No dizziness reported the last several days. Pt states he feels weak and unsteady on feet. Strengthening and balance exercise completed. Slow shuffle gait pattern noted but states he was working at home prior to session and feels a little tired. Reviewed exrcise to be completed at home and at [facility]. Activity Tolerance Activity Tolerance: Patient Tolerated treatment well Patient Education Patient Education: HEP and home safety Pt verbalized/demonstrated good understanding: [x] Yes [] No, pt required further clarification. Post Treatment Pain: 0/10 Plan Times per week: 2-3 Plan weeks: 6 Goals (Total # of Visits to Date: 11) Short term goals Time Frame for Short term goals: 3 weeks Short term goal 1: Patient will be initiated with a HEP--met Short term goal 2: Patient will tolerate canalith repositioning maneuvers--met Short term goal 3: Patient will be initiated with LE strengthening exercises--met pack out operator goals Time Frame for shelter goals : 6 weeks pack out operator goal 1: Patient will be independent and compliant with a HEP pack out operator goal 2: Patient will demonstrate negative bilateral Swiss-Hallpike testing indicating inactive BPPV-progressing pack out operator goal 3: Patient will improve LE strength to >4/5 in all major joints and planes for ADLs pack out operator goal 4: Patient will report 60% improvement in overall symptoms and mobility. Minutes Tracking: Time In: 1105 Time Out: 1145 Minutes: 40 Timed Code Treatment Minutes: 39 Minutes Igor Rojas TRUCK UNLOADER Date: 01/24/[address] 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 He reports his legs continue to feel weak and reports fatiguing quickly. Exercises: Exercise 5: sit <> stand 10x2, no child welfare specialist Exercise 7: Hurdles for/side 15x ea, 12 Exercise 9: LSU/FSU's 10x ea LE with HRx1 Exercise 10: SciFIT: level 2.5 hills x6 minutes Exercise 11: Retro ambulation with resistance 15# x5 Exercise 12: Knee extension: 3 pl single leg 2x10 ea Assessment Body structures, Functions, Activity limitations: Decreased functional mobility , Decreased ADL status, Decreased balance, Decreased posture, Decreased strength, Decreased endurance, Vestibular Impairment, Decreased high-level IADLs Assessment: Patient without nystagmus with Cy-Hallpike testing and roll testing. Progressed strengthening and balance exercises to work toward his associate scientist goals. Patient reported minor fatigue following his tx session. Activity Tolerance Activity Tolerance: Patient Tolerated treatment well Patient Education Patient Education: HEP Pt verbalized/demonstrated good understanding: [x] Yes [] No, pt required further clarification. Post Treatment Pain: 0/10 Plan Times per week: 2-3 Plan weeks: 6 Goals (Total # of Visits to Date: 10) Short term goals Time Frame for Short term goals: 3 weeks Short term goal 1: Patient will be initiated with a HEP--met Short term goal 2: Patient will tolerate canalith repositioning maneuvers--met Short term goal 3: Patient will be initiated with LE strengthening exercises--met shelter goals Time Frame for shelter goals : 6 weeks pack out operator goal 1: Patient will be independent and compliant with a HEP shelter goal 2: Patient will demonstrate negative bilateral Cy-Hallpike testing indicating inactive BPPV-progressing shelter goal 3: Patient will improve LE strength to >4/5 in all major joints and planes for ADLs shelter goal 4: Patient will report 60% improvement in overall symptoms and mobility. Minutes Tracking: Time In: 0915 Time Out: 1000 Minutes: 45 Timed Code Treatment Minutes: 43 Minutes Fernandez Romo PT, DPT Date: 01/20/[address] 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 Just had R eye injection totreat macular degeneration. Exercises: Exercise 1: HEP: Alcantar Bhavani, SLR, bridging Exercise 2: Laura x2 for (+) L Cy-hallpike Exercise 4: sink ex 15x ea Exercise 5: sit <> stand 15x, no child welfare specialist, airex in seat Exercise 7: Hurdles for/side 15x ea Exercise 8: Airex WBOS/NBOS/SLS [address] with fingertip x2 at counter Exercise 9: FSU's 10x ea LE with HRx1 Assessment Assessment: No nystagmus noted with L hallpike; still treated with Laura but no nystagmus or symptoms noted throughout. Progressed static and dynamic standing balance activities to decrease fall risk. Will continue. Activity Tolerance Activity Tolerance: Patient Tolerated treatment well Patient Education Exercise technique Pt verbalized/demonstrated good understanding: [x] Yes [] No, pt required further clarification. Post Treatment Pain: 0/10 Plan Times per week: 2-3 Plan weeks: 6 Goals (Total # of Visits to Date: 5) Short term goals Time Frame for Short term goals: 3 weeks Short term goal 1: Patient will be initiated with a HEP--met Short term goal 2: Patient will tolerate canalith repositioning maneuvers--met Short term goal 3: Patient will be initiated with LE strengthening exercises--met pack out operator goals Time Frame for shelter goals : 6 weeks pack out operator goal 1: Patient will be independent and compliant with a HEP shelter goal 2: Patient will demonstrate negative bilateral Cy-Hallpike testing indicating inactive BPPV pack out operator goal 3: Patient will improve LE strength to >4/5 in all major joints and planes for ADLs pack out operator goal 4: Patient will report 60% improvement in overall symptoms and mobility. Minutes Tracking: Time In: 1433 Time Out: 1514 Minutes: 41 Timed Code Treatment Minutes: 40 Minutes Patti Desai PT , DPT Date: 01/05/2021 documented [facility] this [facility] Phone: [phone]) [phone] History of Present illness Narrative* MattieIgor saunders [place] - 01/03/2021 7:30 AM EDT [facility] Daily Note Patient: Missy Salgado : 1940 CSN #: [id number] Referring Practitioner: Nic Garcia MD Referral Date : 12/20/20 Date: 01/03/2021 Diagnosis: General weakness, R53.1, multiple myeloma in remission, C90.01, elevated PSA, R97.20, Benign paroxysmal vertigo, H81.13 Treatment Diagnosis: BPPV, generalized weakness, decreased activity endurance Onset Date: 09/29/20 PT Insurance Information: Medicare/[facility] Total # of Visits Approved: 12 Per Physician Order Total # of Visits to Date: 4 No Show: 0 Canceled Appointment: 0 Pre-Treatment Pain: 0/10 Subjective: States he's not to dizzy today. States his balance and strength is decreased. Exercises: Exercise 2: Laura x2 for (+) L Cy-hallpike Exercise 4: sink ex 15x ea Exercise 5: sit <> stand 12-15x Exercise 6: Standing and walking VOR exercises Exercise 7: Hurdles for/side 12x ea Manual: Other: Epleys x2 Modalities: Assessment Assessment: Pt states he feels a little better, still mild dizzy complaints reported. Pt with upbeat rotational nystagmus noted with Kyler herrerake. Pt treated with Epleys . HEP reviewed Activity Tolerance Activity Tolerance: Patient Tolerated treatment well Patient Education Patient Education: HEP Pt verbalized/demonstrated good understanding: [x] Yes [] No, pt required further clarification. Post Treatment Pain: 0/10 Plan Times per week: 2-3 Plan weeks: 6 Goals (Total # of Visits to Date: 4) Short term goals Time Frame for Short term goals: 3 weeks Short term goal 1: Patient will be initiated with a HEP--met Short term goal 2: Patient will tolerate canalith repositioning maneuvers--met Short term goal 3: Patient will be initiated with LE strengthening exercises--met pack out operator goals Time Frame for shelter goals : 6 weeks shelter goal 1: Patient will be independent and compliant with a HEP pack out operator goal 2: Patient will demonstrate negative bilateral Swiss-Hallpike testing indicating inactive BPPV shelter goal 3: Patient will improve LE strength to >4/5 in all major joints and planes for ADLs shelter goal 4: Patient will report 60% improvement in overall symptoms and mobility. Minutes Tracking: Time In: 729 Time Out: 814 Minutes: 45 Igor Rojas TRUCK UNLOADER Date: 01/03/2021 documented [facility] this [facility] Phone: [phone]) 812-586307-02-2021 History of Present illness Narrative* Randal Cale, TRUCK UNLOADER - 12/30/2020 8:00 AM EDT [facility] Daily Note Patient: Missy Salgado : 1940 CSN #: [id number] Referring Practitioner: Nic Garcia MD Referral Date : 12/20/20 Date: 12/30/2020 Diagnosis: General weakness, R53.1, multiple myeloma in remission, C90.01, elevated PSA, R97.20, Benign paroxysmal vertigo, H81.13 Treatment Diagnosis: BPPV, generalized weakness, decreased activity endurance Onset Date: 09/29/20 PT Insurance Information: Medicare/[facility] Total # of Visits Approved: 12 Per Physician Order Total # of Visits to Date: 3 No Show: 0 Canceled Appointment: 0 Pre-Treatment Pain: 0/10 Subjective: Pt reports he is feeling pretty goood today, less dizzy, reports he feels the most dizzy when he gets out of bed. Looking the the L makes him feel dizzy as well. Exercises: Exercise 1: HEP: Ortiz Beckham, SLR, bridging Exercise 2: Laura x2 for (+) L Swiss-hallpike Exercise 4: sink ex 15x ea Exercise 5: sit <> stand 8x Exercise 6: Standing and walking VOR exercises Assessment Assessment: Pt continues to display increased torsional nystagmus with supine to sit but no nystagmus noted with initial testing. Began VOR ex today with fair tolerance, will conitnue. Activity Tolerance Activity Tolerance: Patient Tolerated treatment well Patient Education Patient Education: Reviewed HEP. Pt verbalized/demonstrated good understanding: [x] Yes [] No, pt required further clarification. Post Treatment Pain: 0/10 Plan Times per week: 2-3 Plan weeks: 6 Goals (Total # of Visits to Date: 3) Short term goals Time Frame for Short term goals: 3 weeks Short term goal 1: Patient will be initiated with a HEP Short term goal 2: Patient will tolerate canalith repositioning maneuvers Short term goal 3: Patient will be initiated with LE strengthening exercises pack out operator goals Time Frame for shelter goals : 6 weeks pack out operator goal 1: Patient will be independent and compliant with a HEP pack out operator goal 2: Patient will demonstrate negative bilateral Cy-Hallpike testing indicating inactive BPPV shelter goal 3: Patient will improve LE strength to >4/5 in all major joints and planes for ADLs shelter goal 4: Patient will report 60% improvement in overall symptoms and mobility. Minutes Tracking: Time In: 08 Time Out: 0845 Minutes: 44 Timed Code Treatment Minutes: 42 Minutes Cale Tee PTA Date: 12/30/[address] [facility] [facility] Phone: [phone]) 665-812706-28-2021 History of Present illness Narrative* Martha Lima, PT - 12/26/2020 9:30 AM EDT [facility] Outpatient Physical Therapy Daily Note Patient: Missy Salgado : 1940 CSN #: [id number] Referring Practitioner: Nic Garcia MD Referral Date : 12/20/20 Date: 12/26/2020 Diagnosis: General weakness, R53.1, multiple myeloma in remission, C90.01, elevated PSA, R97.20, Benign paroxysmal vertigo, H81.13 Treatment Diagnosis: BPPV, generalized weakness, decreased activity endurance Onset Date: 09/29/20 PT Insurance Information: Medicare/[facility] Total # of Visits Approved: 12 Per Physician Order Total # of Visits to Date: 2 No Show: 0 Canceled Appointment: 0 Pre-Treatment Pain: 0/10 Subjective: Pt states he has been feeling a little better since eval and has been working on HEP asinstructed. Exercises: Exercise 1: HEP: Ortiz Beckham, АННАR, bridging Exercise 2: Laura x2 for (+) L Cy-hallpike Exercise 3: Laura x1 for R Cy-hallpike Assessment Assessment: Minimal dizziness/nystagmus with R Cy-hallpike; however, when turning head to L duringEpley, increased torsional nystagmus observed. Therefore, performed Laura for (+) L dixhallpike x2,with decreased duration and intensity of nystagmus with 2nd maneuver. Pt has dizziness and observednystagmus when returning from supine to seated position. Reviewed HEP. Will progress as tolerated. Activity Tolerance Activity Tolerance: Patient Tolerated treatment well Patient Education Patient Education: Reviewed HEP. Pt verbalized/demonstrated good understanding: [x] Yes [] No, pt required further clarification. Post Treatment Pain: 0/10 Plan Times per week: 2-3 Plan weeks: 6 Goals (Total # of Visits to Date: 2) Short term goals Time Frame for Short term goals: 3 weeks Short term goal 1: Patient will be initiated with a HEP Short term goal 2: Patient will tolerate canalith repositioning maneuvers Short term goal 3: Patient will be initiated with LE strengthening exercises pack out operator goals Time Frame for shelter goals : 6 weeks shelter goal 1: Patient will be independent and compliant with a HEP shelter goal 2: Patient will demonstrate negative bilateral Cy-Hallpike testing indicating inactive BPPV pack out operator goal 3: Patient will improve LE strength to >4/5 in all major joints and planes for ADLs shelter goal 4: Patient will report 60% improvement in overall symptoms and mobility. 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) Malignant neoplasm of lateral wall of urinary bladder Elevated PSA Elevated prostate specific antigen (PSA) documented in this encounter [facility] Phone: evaluation note* Diagnosis 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) Malignant neoplasm of lateral wall of urinary bladder documented in this encounter [facility] Phone: evaluation note* Diagnosis Pathological fracture of rib, initial encounter- Primary documented in this encounter [facility] Phone: [email or web address] note* Diagnosis Multiple myeloma in remission (HCC) Multiple myeloma in remission documented in this encounter [facility] Phone: evaluation note* Diagnosis ST elevation myocardial infarction involving right coronary artery (HCC)- Primary Acute myocardial infarction of inferoposterior wall, initial episode of care documented in this encounter [facility] Phone: [email or web address] note* Diagnosis ST elevation myocardial infarction (STEMI), unspecified artery (HCC) documented in this encounter [facility] Phone: [email or web address] note* Diagnosis Multiple myeloma, remission status unspecified (HCC) documented in this encounter [facility] Phone: evaluation note* Diagnosis 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) Multiple myeloma, in relapse 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 [facility]* Diagnosis Multiple myeloma, remission status unspecified (HCC)- Primary documented in this encounter [facility] note* Diagnosis Multiple myeloma, remission status unspecified (HCC)- Primary documented in this encounter [facility] note* Diagnosis Multiple myeloma, remission status unspecified (HCC)- Primary Acute left ankle pain documented in this encounter [facility] note* Diagnosis Multiple myeloma, remission status unspecified (HCC)- Primary documented in this encounter [facility] note* Diagnosis Multiple myeloma, remission status unspecified (HCC)- Primary documented in this encounter [facility] note* Diagnosis Multiple myeloma, remission status unspecified (HCC)- Primary Achilles tendinitis of left lower extremity Achilles bursitis or tendinitis documented in this encounter [facility] note* Diagnosis Multiple myeloma, remission status unspecified (HCC)- Primary documented in this encounter [facility] note* Diagnosis Multiple myeloma, remission status unspecified (HCC)- Primary documented in this encounter [facility] note* Diagnosis Multiple myeloma, remission status unspecified (HCC)- Primary documented in this encounter [facility] note* Diagnosis Multiple myeloma, remission status unspecified (HCC)- Primary documented in this encounter [facility] note* Diagnosis Elevated PSA Elevated prostate specific antigen (PSA) 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) Malignant neoplasm of lateral wall of urinary bladder documented in this encounter [facility] [employer] Phone: evaluation note* Diagnosis Multiple myeloma, remission status unspecified (HCC)- Primary documented in this encounter [facility] note* Diagnosis Multiple myeloma not having achieved remission (HCC)- Primary Multiple myeloma, without mention of having achieved remission documented in this encounter [facility] note* Diagnosis Multiple myeloma not having achieved remission (HCC)- Primary Multiple myeloma, without mention of having achieved remission documented in this encounter [facility] note* Diagnosis Elevated PSA Elevated prostate specific antigen (PSA) Bladder tumor Neoplasm of unspecified nature of bladder documented in this encounter [employer] Phone: evaluation note* Diagnosis Multiple myeloma, remission status unspecified (HCC)- Primary documented in this encounter [facility] note* Diagnosis Multiple myeloma not having achieved remission (HCC)- Primary Multiple myeloma, without mention of having achieved remission documented in this encounter [facility] note* Diagnosis Gross hematuria- Primary Hematuria, unspecified type Loss of consciousness (HCC) Other alteration of consciousness S/P angioplasty with stent Postsurgical percutaneous transluminal coronary angioplasty status Bladder tumor Neoplasm of unspecified nature of bladder Paroxysmal atrial fibrillation (HCC) Atrial fibrillation Coronary artery disease involving [place] heart without angina pectoris Myeloma (HCC) Multiple myeloma, without mention of having achieved remission 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) Malignant neoplasm of lateral wall of urinary bladder 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 Cardiac arrest with pulseless electrical activity (HCC) documented in this encounter [employer] Phone: evaluation note* Diagnosis Bladder tumor Neoplasm of unspecified nature of bladder Gross hematuria S/P angioplasty with stent Postsurgical percutaneous transluminal coronary angioplasty status documented in this encounter [employer] Phone: [email or web address] note* Diagnosis Multiple myeloma not having achieved remission (HCC)- Primary Multiple myeloma, without mention of having achieved remission [facility] Diagnosis Abnormality of left atrial appendage- Primary [facility] Diagnosis Presence of Watchman left atrial appendage closure device- Primary documented in this encounter [employer] Phone: [email or web address] note* Diagnosis Elevated PSA Elevated prostate specific antigen (PSA) documented in this encounter [employer] Phone: evaluation note* Diagnosis Multiple myeloma not having achieved remission (HCC)- Primary Multiple myeloma, without mention of having achieved remission [facility] Diagnosis Multiple myeloma not having achieved remission (HCC)- Primary Multiple myeloma, without mention of having achieved remission [facility]* Diagnosis Multiple myeloma not having achieved remission (HCC) Multiple myeloma, without mention of having achieved remission [facility]* Diagnosis Multiple myeloma not having achieved remission (HCC) Multiple myeloma, without mention of having achieved remission [facility]* Diagnosis Multiple myeloma not having achieved remission (HCC) Multiple myeloma, without mention of having achieved remission [facility]* Diagnosis Multiple myeloma not having achieved remission (HCC) Multiple myeloma, without mention of having achieved remission [facility]* Diagnosis Multiple myeloma not having achieved remission (HCC)- Primary Multiple myeloma, without mention of having achieved remission [facility]* Diagnosis 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) Malignant neoplasm of lateral wall of urinary bladder Elevated PSA Elevated prostate specific antigen (PSA) documented in this encounter [facility] [employer] Phone: evaluation note* Diagnosis Multiple myeloma not having achieved remission (HCC)- Primary Multiple myeloma, without mention of having achieved remission [facility]* Diagnosis Multiple myeloma, remission status unspecified (HCC)- Primary [facility]* Diagnosis Multiple myeloma not having achieved remission (HCC)- Primary Multiple myeloma, without mention of having achieved remission [facility]* Diagnosis Multiple myeloma, remission status unspecified (HCC)- Primary [facility]* Diagnosis Multiple myeloma not having achieved remission (HCC)- Primary Multiple myeloma, without mention of having achieved remission [facility]* Diagnosis Elevated PSA Elevated prostate specific antigen (PSA) documented in this encounter [facility] [employer] Phone: [email or web address] note* Diagnosis Multiple myeloma, remission status unspecified (HCC)- Primary [facility]* Diagnosis Multiple myeloma not having achieved remission (HCC)- Primary Multiple myeloma, without mention of having achieved remission Stage 3a chronic kidney disease (HCC) [facility]* Diagnosis Multiple myeloma not having achieved remission (HCC)- Primary Multiple myeloma, without mention of having achieved remission [facility]* Diagnosis Multiple myeloma, remission status unspecified (HCC)- Primary [facility]* Diagnosis Multiple myeloma, remission status unspecified (HCC)- Primary [facility]* Diagnosis Multiple myeloma, remission status unspecified (HCC)- Primary [facility]* Diagnosis Multiple myeloma not having achieved remission (HCC)- Primary Multiple myeloma, without mention of having achieved remission [facility]* Diagnosis Multiple myeloma, remission status unspecified (HCC)- Primary [facility]* Diagnosis Multiple myeloma not having achieved remission (HCC)- Primary Multiple myeloma, without mention of having achieved remission [facility]* Diagnosis Multiple myeloma not having achieved remission (HCC)- Primary Multiple myeloma, without mention of having achieved remission documented in this encounter [facility] noteNo assessment information [facility] Work Phone: evaluation note* Diagnosis Multiple myeloma not having achieved remission (HCC)- Primary Multiple myeloma, without mention of having achieved remission [facility]* Diagnosis Multiple myeloma not having achieved remission (HCC) Multiple myeloma, without mention of having achieved remission Malaise and fatigue Other malaise and fatigue [facility]* Diagnosis Multiple myeloma, remission status unspecified (HCC)- Primary documented in this encounter [facility] note* Diagnosis Multiple myeloma not having achieved remission (HCC)- Primary Multiple myeloma, without mention of having achieved remission Stage 3a chronic kidney disease (HCC) Leg swelling Swelling of limb Neuropathy Mononeuritis of unspecified site 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 documented in this encounter [facility] note* Diagnosis Multiple myeloma not having achieved remission (HCC) Multiple myeloma, without mention of having achieved remission documented in this encounter [facility] note* Diagnosis Multiple myeloma, remission status unspecified (HCC)- Primary documented in this encounter [facility] note* Diagnosis Multiple myeloma, remission status unspecified (HCC)- Primary documented in this encounter [facility] note* Diagnosis Multiple myeloma, remission status unspecified (HCC)- Primary documented in this encounter [facility] note* Diagnosis 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) Malignant neoplasm of lateral wall of urinary bladder documented in this encounter [facility] note* Diagnosis Onset Date Resolution Status [id number] acute Paroxysmal atrial fibrillation acute Presence of Watchman left at rial appendage closure device acute Vasovagal syncope acute [facility] Work Phone: [email or web address] note* Diagnosis Multiple myeloma not having achieved remission (HCC)- Primary Multiple myeloma, without mention of having achieved remission [facility]* Diagnosis Multiple myeloma not having achieved remission (HCC)- Primary Multiple myeloma, without mention of having achieved remission [facility] Diagnosis Multiple myeloma not having achieved remission (HCC) Multiple myeloma, without mention of having achieved remission [facility]* Diagnosis Multiple myeloma not having achieved remission (HCC) Multiple myeloma, without mention of having achieved remission [facility]* Diagnosis Multiple myeloma not having achieved remission (HCC)- Primary Multiple myeloma, without mention of having achieved remission [facility]* Diagnosis Multiple myeloma not having achieved remission (HCC) Multiple myeloma, without mention of having achieved remission [facility]* Diagnosis Multiple myeloma not having achieved remission (HCC)- Primary Multiple myeloma, without mention of having achieved remission [facility]* Diagnosis Multiple myeloma not having achieved remission (HCC) Multiple myeloma, without mention of having achieved remission [facility]* Diagnosis Elevated PSA Elevated prostate specific antigen (PSA) documented in this encounter [facility] note* Diagnosis Multiple myeloma not having achieved remission (HCC) Multiple myeloma, without mention of having achieved remission [facility]* Diagnosis Multiple myeloma not having achieved remission (HCC) Multiple myeloma, without mention of having achieved remission [facility]* Diagnosis Multiple myeloma, remission status unspecified (HCC) Acute left ankle pain [facility]* Diagnosis Onset Date Resolution Status COVID-19 acute Multiple myeloma acute Paroxysmal atrial fibrillation acute Presence of Watchman left at rial appendage closure device acute Aspiration pneumonia acute Atrial fibrillation acute [id number] acute COVID-19 acute Esophageal dysphagia acute Multiple myeloma acute Oropharyngeal dysphagia acut e Pain due to fracture acute Paroxysmal atrial fibrillation acute Presence of Watchman left at rial appendage closure device acute T2 vertebral fracture acute Vasovagal syncope acute [facility] Work Phone: Evaluation note* Diagnosis Multiple myeloma not having achieved remission (HCC) Multiple myeloma, without mention of having achieved remission Stage 3a chronic kidney disease (HCC) documented in this encounter [facility] Discharge instructions* Attachments The following attachments cannot be sent through Care Everywhere. * Peripheral Artery Angioplasty: Post-op (Arabic) * Heart Attack: Myocardial Infarction or Acute Coronary Syndrome (Arabic) * clopidogrel (Arabic) [facility] Work Phone: reason for referral (narrative)* Diagnostic Procedure Only (Routine) - Closed Specialty Diagnoses / Procedures Referred By Sofy ramirez Referred To Contact XR IMAGING Diagnoses Multiple myeloma, remission status unspecified (HCC) Acute left ankle pain Procedures XR ANKLE GENERAL 3V AP/LAT/OBL LEFT RADEX ANKLE COMPLETE MINIMUM 3 VIEWS Thi Valera PA-C [address] [place] [id number] Xr Imaging Referral ID Status Reason Start Date Expiration Date V isits Requested Visits Authorized [id number] Closed Auto-Generate d Referral 10/17/2021 11/16/2022 [address] [facility] for referral (narrative)* Outpatient Procedure (Routine) - Authorized Specialty Diagnoses / Procedures Referred By Akiraac t Referred To Contact [facility] Diagnoses Abnormality of left atrial appendage Procedures ECG COMPLETE ECG ROUTINE ECG W/LEAST 12 LDS W/I&R Laila, Isaias Worthy MD [address] [place] [address] [facility] [place] [address] [place] [id number] Referral ID Status Reason Start Date Expiration Date Visits Requested Visits Authorized [id number] Authorized Auto-Generat ed Referral 02/26/2022 02/26/2023 [address] [facility] for referral (narrative)* Diagnostic Procedure Only (Routine) - Authorized Specialty Diagnoses / Procedures [facility]erred To Contact MOLECULAR & FUNCTIONAL IMAGING Diagnoses Multiple myeloma not having achieved remission (HCC) Procedures NM PET/CT WHOLE BODY SUBSEQUENT PET IMAGING FOR CT ATTENUATION WHOLE BODY David Molina MD [address] [place] [address] Molecular & Functional Imaging [address] [place] [address] Referral ID Status Reason Start Date Expiration Date Visits Requested Visits Authorized [id number] Authorized Auto-Generat ed Referral 05/15/2024 [address] [facility] for referral (narrative)* Diagnostic Procedure Only (Routine) - Closed Specialty Diagnoses / Procedures Referred By Contac t Referred To Contact MOLECULAR & FUNCTIONAL IMAGING Diagnoses Multiple myeloma not having achieved remission (HCC) Procedures NM PET/CT WHOLE BODY SUBSEQUENT PET IMAGING FOR CT ATTENUATION WHOLE BODY David Molina MD [address] [place] [id number] Molecular & Functional Imaging [address] [place] [address] Referral ID Status Reason Start Date Expiration Date V isits Requested Visits Authorized [id number] Closed Auto-Generate d Referral 05/17/2023 05/15/2024 [address] [facility] for referral (narrative)* Diagnostic Procedure Only (Routine) - Closed Specialty Diagnoses / Procedures Referred By Contac t Referred To Contact MOLECULAR & FUNCTIONAL IMAGING Diagnoses Multiple myeloma not having achieved remission (HCC) Procedures NM PET/CT WHOLE BODY SUBSEQUENT PET IMAGING FOR CT ATTENUATION WHOLE BODY David Molina MD [address] [place] [id number] Molecular & Functional Imaging [address] [place] [address] Referral ID Status Reason Start Date Expiration Date V isits Requested Visits Authorized [id number] Closed Auto-Generate d Referral 05/25/2022 05/24/2023 [address] [facility] for referral (narrative)* Diagnostic Procedure Only (Routine) - Closed Specialty Diagnoses / Procedures Referred By Contac t Referred To Contact XR IMAGING Diagnoses Multiple myeloma, remission status unspecified (HCC) Acute left ankle pain Procedures XR ANKLE GENERAL 3V AP/LAT/OBL LEFT RADEX ANKLE COMPLETE MINIMUM 3 VIEWS Thi Valera PA-C [address] [place] [address] [place] [id number] [place] [id number] Referral ID Status Reason Start Date Expiration Date V isits Requested Visits Authorized [id number] Closed Auto-Generate d Referral 10/17/2021 11/16/2022 1 1 [facility] Assessments Diagnosis 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)- Primary Multiple myeloma, in relapse Diagnosis 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) Multiple myeloma, in relapse 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 Multiple myeloma, remission status unspecified (HCC)- Primary 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) Multiple myeloma, in relapse Diagnosis 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) Multiple myeloma, in relapse 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) Multiple myeloma, in relapse 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 Multiple myeloma, remission status unspecified (HCC)- Primary 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) Multiple myeloma, in relapse Diagnosis 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) Malignant neoplasm of lateral wall of urinary bladder Frequency of urination Urinary frequency Diagnosis 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)- Primary Multiple myeloma, in relapse Diagnosis Multiple myeloma, remission status unspecified (HCC) Diagnosis Elevated PSA Elevated prostate specific antigen (PSA) Diagnosis 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) Malignant neoplasm of lateral wall of urinary bladder Diagnosis Multiple myeloma, remission status unspecified (HCC) Diagnosis 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) Malignant neoplasm of lateral wall of urinary bladder Diagnosis Multiple myeloma in remission (HCC) Multiple myeloma in remission Diagnosis 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) Malignant neoplasm of lateral wall of urinary bladder Diagnosis ST elevation myocardial infarction (STEMI), unspecified artery (HCC) Diagnosis 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)- Primary Multiple myeloma, in relapse Diagnosis 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) Syncope and collapse Diagnosis 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) Malignant neoplasm of lateral wall of urinary bladder Frequency of urination Urinary frequency Diagnosis Preoperative testing Preoperative examination, unspecified Diagnosis 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)- Primary Malignant neoplasm of lateral wall of urinary bladder Diagnosis 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) Multiple myeloma, in relapse 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 Multiple myeloma not having achieved remission (HCC) Multiple myeloma, without mention of having achieved remission Diagnosis 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)- Primary Multiple myeloma, in relapse Diagnosis 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) Multiple myeloma, in relapse 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 Advance Directives No Advanced Directives Records FoundDocuments on File Type Date Recorded Patient Circular [employer] Cooper Expl anation Advance Directives and Living Will Power of Ordering Box Operator Latest Code Status on File Code Status Date Activated Date Inactivated Comments Full Code 12/30/2018 11:08 AM 12/30/2018 5:47 PM Full Code 05/26/2018 10:36 AM 05/26/2018 4:56 PM Documents on File Type Date Recorded Patient Circular [employer] Cooper Expl anation Advance Directives and Living Will Power of Ordering Box Operator Latest Code Status on File Code Status Date Activated Date Inactivated Comments Full Code 12/30/2018 11:08 AM 12/30/2018 5:47 PM Full Code 05/26/2018 10:36 AM 05/26/2018 4:56 PM Latest Code Status on File Code Status Date Activated Date Inactivated Comments Full Code 04/21/2019 7:58 AM Full Code 12/30/2018 11:08 AM 12/30/2018 5:47 PM Latest Code Status on File Code Status Date Activated Date Inactivated Comments Full Code 04/21/2019 7:58 AM 04/21/2019 1:25 PM Latest Code Status on File Code Status Date Activated Date Inactivated Comments Full Code 04/21/2019 7:58 AM 04/21/2019 1:25 PM Full Code 12/30/2018 11:08 AM 12/30/2018 5:47 PM Documents on File Type Date Recorded Patient [employer]ular [employer] Cooper Expl anation ACP-Advance Directive ACP-Power of Ordering Box Operator Documents on File Type Date Recorded Patient Circular [employer] Cooper Expl anation ACP-Advance Directive ACP-Power of Ordering Box Operator Latest Code Status on File Code Status Date Activated Date Inactivated Comments Full Code 05/23/2020 11:19 AM Full Code 04/21/2019 7:58 AM 04/21/2019 1:25 PM Latest Code Status on File Code Status Date Activated Date Inactivated Comments Full Code 05/23/2020 11:19 AM 05/25/2020 3:44 PM Latest Code Status on File Code Status Date Activated Date Inactivated Comments Full Code 05/23/2020 11:19 AM 05/25/2020 3:44 PM Full Code 04/21/2019 7:58 AM 04/21/2019 1:25 PM Latest Code Status on File Code Status Date Activated Date Inactivated Comments Full Code 09/20/2020 12:50 PM Full Code 05/23/2020 11:19 AM 05/25/2020 3:44 PM Latest Code Status on File Code Status Date Activated Date Inactivated Comments Full Code 09/20/2020 12:50 PM 09/20/2020 6:38 PM Latest Code Status on File Code Status Date Activated Date Inactivated Comments Full Code 09/20/2020 12:50 PM 09/20/2020 6:38 PM Full Code 05/23/2020 11:19 AM 05/25/2020 3:44 PM Latest Code Status on File Code Status Date Activated Date Inactivated Comments Full Code 04/25/2021 12:31 PM Full Code 09/20/2020 12:50 PM 09/20/2020 6:38 PM Latest Code Status on File Code Status Date Activated Date Inactivated Comments Full Code 04/25/2021 12:31 PM 04/27/2021 6:38 PM Latest Code Status on File Code Status Date Activated Date Inactivated Comments Full Code 04/25/2021 12:31 PM 04/27/2021 6:38 PM Full Code 09/20/2020 12:50 PM 09/20/2020 6:38 PM Latest Code Status on File Code Status Date Activated Date Inactivated Comments Full Code 05/23/2021 11:32 AM 05/24/2021 2:48 AM Full Code 04/25/2021 12:31 PM 04/27/2021 6:38 PM Latest Code Status on File Code Status Date Activated Date Inactivated Comments Full Code 12/21/2021 8:53 AM 12/21/2021 11:52 AM Full Code 05/23/2021 11:32 AM 05/24/2021 2:48 AM Latest Code Status on File Code Status Date Activated Date Inactivated Comments Full Code 01/10/2022 6:16 AM 01/10/2022 11:42 AM Full Code 12/21/2021 8:53 AM 12/21/2021 11:52 AM Latest Code Status on File Code Status Date Activated Date Inactivated Comments Full Code 01/24/2022 10:41 PM Full Code 01/10/2022 6:16 AM 01/10/2022 11:42 AM Latest Code Status on File Code Status Date Activated Date Inactivated Comments Full Code 01/24/2022 10:41 PM Full Code 01/10/2022 6:16 AM 01/10/2022 11:42 AM Full Code 12/21/2021 8:53 AM 12/21/2021 11:52 AM Full Code 05/23/2021 11:32 AM 05/24/2021 2:48 AM Full Code 04/25/2021 12:31 PM 04/27/2021 6:38 PM Latest Code Status on File Code Status Date Activated Date Inactivated Comments Full Code 01/24/2022 10:41 PM 01/28/2022 4:19 PM Latest Code Status on File Code Status Date Activated Date Inactivated Comments Full Code 03/13/2022 9:41 AM 03/14/2022 2:48 AM Full Code 01/24/2022 10:41 PM 01/28/2022 4:19 PM Latest Code Status on File Code Status Date Activated Date Inactivated Comments Full Code 03/20/2022 10:33 AM Full Code 03/13/2022 9:41 AM 03/14/2022 2:48 AM Full Code 01/24/2022 10:41 PM 01/28/2022 4:19 PM Latest Code Status on File Code Status Date Activated Date Inactivated Comments Full Code 03/20/2022 10:33 AM 03/21/2022 5:33 PM Full Code 03/13/2022 9:41 AM 03/14/2022 2:48 AM Latest Code Status on File Code Status Date Activated Date Inactivated Comments Full Code 03/20/2022 10:33 AM 03/21/2022 5:33 PM Code Status History Code Status Date Activated Date Inactivated Comments Full Code 03/13/2022 9:41 AM 03/14/2022 2:48 AM Full Code 01/24/2022 10:41 PM 01/28/2022 4:19 PM Full Code 01/10/2022 6:16 AM 01/10/2022 11:42 AM Full Code 12/21/2021 8:53 AM 12/21/2021 11:52 AM Advance Directive Response Recorded Date/ Time Advance Directives No July 05, 2023 10:24am Advance Directive Response Recorded Date/ Time Advance Directives No July 05, 2023 11:24am Date Activated Date Inactivated Comments 03/20/2022 10:33 AM 03/21/2022 5:33 PM Date Activated Date Inactivated Comments 03/13/2022 9:41 AM 03/14/2022 2:48 AM Date Activated Date Inactivated Comments 01/24/2022 10:41 PM 01/28/2022 4:19 PM Date Activated Date Inactivated Comments 01/10/2022 6:16 AM 01/10/2022 11:42 AM Date Activated Date Inactivated Comments 12/21/2021 8:53 AM 12/21/2021 11:52 AM Advance Directive Response Recorded Date/ Time Advance Directives No March 2:05pm Discharge Instructions * Instructions* Gigi Bowman RN - 04/21/2019 SAME DAY SURGERY DISCHARGE INSTRUCTIONS 1. Do not drive or operate hazardous machinery for 24 hours. 2. Do not make important personal or business decisions for 24 hours. 3. Do not drink alcoholic beverages for 24 hours. 4. Do not smoke tobacco products for 24 hours. 5. Eat light foods (Jell-O, soups, etc....) and drink plenty of fluids (water, Sprite, etc...) up to 8 glasses per day, as you can tolerate. 6. Limit your activities for 24 hours. Do not engage in heavy work until your surgeon gives you permission. 7. Report the following signs or any questions regarding your physical condition to your surgeon immediately: Excessive swelling of, or around the wound area. Redness. Temperature of 100 degrees (F) or above. Excessive pain. 8. Call your surgeon for any questions regarding your surgery. CYSTOSCOPY DISCHARGE INSTRUCTIONS Possible burning during urination and/or blood tinged urine. Drink 6-8 glasses of water for the next day or so. (This helps to flush the urinary tract.) Call Dr. Thomas ([phone]) if you develop: Fever over 100 degrees Prolonged soreness/pain Unusual bleeding/bruising Unable to urinate or if urine is bloody You cannot pass urine 8 hours after the test. You have pain in your belly or your back just below your rib cage. (This is called flank pain.) You have frequent urge to urinate but can pass only small amounts of urine. Call Dr. Thomas office for follow-up appointment ([phone]). documented in this encounter* Instructions* Kayce Acuna RN - 05/25/2020 clopidogrel Pronunciation: kloe PID oh grel Brand: Plavix What is the most important information I should know about clopidogrel? You should not use this medicine if you have any active bleeding such as a stomach ulcer or bleeding in the brain. Clopidogrel increases your risk of bleeding, which can be severe or life- threatening. Call your doctor or seek emergency medical attention if you have bleeding that will not stop, if you have blood in your urine, black or bloody stools, or if you cough up blood or vomit that looks like coffee grounds. Do not stop taking clopidogrel without first talking to your doctor, even if you have signs of bleeding. Stopping clopidogrel may increase your risk of a heart attack or stroke. What is clopidogrel? Clopidogrel is used to lower your risk of having a stroke, blood clot, or serious heart problem after you've had a heart attack, severe chest pain (angina), or circulation problems. Clopidogrel may also be used for purposes not listed in this medication guide. What should I discuss with my healthcare provider before taking clopidogrel? You should not use clopidogrel if you are allergic to it, or if you have: any active bleeding; or a stomach ulcer or bleeding in the brain (such as from a head injury). Tell your doctor if you have ever had: an ulcer in your stomach or intestines; or a bleeding disorder or blood clotting disorder. Clopidogrel may not work as well if you have certain genetic factors that affect the breakdown of this medicine in your body. Your doctor may perform a blood test to make sure clopidogrel is right for you. This medicine is not expected to harm an unborn baby. However, taking clopidogrel within 1 week before childbirth can cause bleeding in the mother. Tell your doctor if you are or plan to become . You should not breastfeed while using this medicine. How should I take clopidogrel? Follow all directions on your prescription label and read all medication guides or instruction sheets. Use these medicines exactly as directed. Clopidogrel can be taken with or without food. Clopidogrel is sometimes taken together with aspirin. Take aspirin only if your doctor tells you to. Clopidogrel keeps your blood from coagulating (clotting) and can make it easier for you to bleed, even from a minor injury. Contact your doctor or seek emergency medical attention if you have any bleeding that will not stop. You may need to stop using clopidogrel for a short time before a surgery, medical procedure, or dental work. Any healthcare provider who treats you should know that you are taking clopidogrel. Do not stop taking clopidogrel without first talking to your doctor, even if you have signs of bleeding. Stopping the medicine could increase your risk of a heart attack or stroke. Store at room temperature away from moisture and heat. What happens if I miss a dose? Take the medicine as soon as you can, but skip the missed dose if it is almost time for your next dose. Do not take two doses at one time. What happens if I overdose? Seek emergency medical attention or call the Poison Help line at . Overdose can causeexcessive bleeding. What should I avoid while taking clopidogrel? Avoid alcohol. It can increase your risk of stomach bleeding. Avoid activities that may increase your risk of bleeding or injury. Use extra care to prevent bleeding while shaving or brushing your teeth. If you also take aspirin: Ask a doctor or pharmacist before using medicines for pain, fever, swelling, or cold/flu symptoms. They may contain ingredients similar to aspirin (such as salicylates, ibuprofen, ketoprofen, or naproxen). Taking these products together can increase your risk of bleeding. What are the possible side effects of clopidogrel? Get emergency medical help if you have signs of an allergic reaction: hives; difficult breathing; swelling of your face, lips, tongue, or throat. Clopidogrel increases your risk of bleeding, which can be severe or life- threatening. Call your doctor or seek emergency medical attention if you have bleeding that will not stop, if you have blood in your urine, black or bloody stools, or if you cough up blood or vomit that looks like coffee grounds. Also call your doctor at once if you have: nosebleeds, pale skin, easy bruising, purple spots under your skin or in your mouth; jaundice (yellowing of your skin or eyes); fast heartbeats, shortness of breath; headache, fever, weakness, feeling tired; little or no urination; a seizure; low blood sugar --headache, hunger, sweating, irritability, dizziness, fast heart rate, and feelinganxious or shaky; or signs of a blood clot --sudden numbness or weakness, confusion, problems with vision or speech. Common side effects may include: bleeding. This is not a complete list of side effects and others may occur. Call your doctor for medical advice about side effects. You may report side effects to FDA at 9-523-YMK-0381. What other drugs will affect clopidogrel? Certain other medicines may increase your risk of bleeding, including aspirin. Avoid taking aspirinunless your doctor tells you to. Tell your doctor about all your other medicines, especially: any other medicines to treat or prevent blood clots; a stomach acid mate fishing vessel such as omeprazole, Nexium, or Prilosec; an antidepressant; an opioid medication; a blood thinner --warfarin, Coumadin, Jantoven; or NSAIDs (nonsteroidal anti-inflammatory drugs) --ibuprofen (Advil, Motrin), naproxen (Aleve), celecoxib, diclofenac, indomethacin, meloxicam, and others. This list is not complete. Other drugs may affect clopidogrel, including prescription and [id number] medicines, vitamins, and herbal products. Not all possible drug interactions are listed here. Where can I get more information? Your pharmacist can provide more information about clopidogrel. Remember, keep this and all other medicines out of the reach of children, never share your medicines with others, and use this medication only for the indication prescribed. Every effort has been made to ensure that the information provided by [employer]. ('[employer]') is accurate, up-to-date, and complete, but no guarantee is made to that effect. Drug information contained herein may be time sensitive. [employer] information has been compiled for use by healthcare practitioners and consumers in the [place] and therefore [employer] does not warrant that uses outside of the [place] are appropriate, unless specifically indicated otherwise. [employer] drug information does not endorse drugs, diagnose patients or recommend therapy. [employer] drug information isan informational resource designed to assist licensed healthcare practitioners in caring for their p atients and/or to serve consumers viewing this service as a supplement to, and not a substitute for, the expertise, skill, knowledge and judgment of healthcare practitioners. The absence of a warningfor a given drug or drug combination in no way should be construed to indicate that the drug or drug combination is safe, effective or appropriate for any given patient. [facility] does not assume any responsibility for any aspect of healthcare administered with the aid of information [facility] provides. The information contained herein is not intended to cover all possible uses, directions, precautions, warnings, drug interactions, allergic reactions, or adverse effects. If you have questions about the drugs you are taking, check with your doctor, nurse or pharmacist. Copyright 9195-6750 [facility] [employer]. Version: 17.. Revision date: 07/23/2019. Care instructions adapted under license by [employer]. If you have questions about a medical condition or this instruction, always ask your healthcare professional. [employer] disclaims any warranty or liability for your use of this information. Coronary Angioplasty: What to Expect at Home Your Recovery Coronary angioplasty is a procedure that is used to open a narrowed or blocked coronary artery. It may also be called a percutaneous coronary intervention (PCI). The doctor opened your narrowed or blocked artery by putting a thin tube, called a catheter, into your heart through a blood vessel. The catheter was inserted into the blood vessel in your groin or arm. Your groin or arm may have a bruise and feel sore for a day or two after the procedure. You can do light activities around the house. But don't do anything strenuous for several days. This care sheet gives you a general idea about how long it will take for you to recover. But each person recovers at a different pace. Follow the steps below to get better as quickly as possible. How can you care for yourself at home? Activity If the doctor gave you a sedative: ? For 24 hours, don't do anything that requires attention to detail, such as going to work, making important decisions, or signing any legal documents. It takes time for the medicine's effects to completely wear off. ? For your safety, do not drive or operate any machinery that could be dangerous. Wait until the medicine wears off and you can think clearly and react easily. Do not do strenuous exercise and do not lift, pull, or push anything heavy until your doctor says it is okay. This may be for a day or two. You can walk around the house and do light activity, such as cooking. If the catheter was placed in your groin, try not to walk up stairs for the first couple of days. If the catheter was placed in your arm near your wrist, do not bend your wrist deeply for the firstcouple of days. Be careful using your hand to get into and out of a chair or bed. Carry your stent identification card with you at all times. If your doctor recommends it, get more exercise. Walking is a good choice. Bit by bit, increase theamount you walk every day. Try for at least 30 minutes on most days of the week. Diet Drink plenty of fluids to help your body flush out the dye. If you have kidney, heart, or liver disease and have to limit fluids, talk with your doctor before you increase the amount of fluids you drink. Keep eating a heart-healthy diet that has lots of fruits, vegetables, and whole grains. If you havenot been eating this way, talk to your doctor. You also may want to talk to a dietitian. This expert can help you to learn about healthy foods and plan meals. Medicines Your doctor will tell you if and when you can restart your medicines. He or she will also give you instructions about taking any new medicines. If you take aspirin or some other blood thinner, ask your doctor if and when to start taking it again. Make sure that you understand exactly what your doctor wants you to do. Your doctor will prescribe blood-thinning medicines. You will likely take aspirin plus another antiplatelet, such as clopidogrel (Plavix). It is very important that you take these medicines exactly as directed. These medicines help keep the coronary artery open and reduce your risk of a heart attack. Call your doctor if you think you are having a problem with your medicine. Care of the catheter site For 1 or 2 days, keep a bandage over the spot where the catheter was inserted. The bandage probablywill fall off in this time. Put ice or a cold pack on the area for 10 to 20 minutes at a time to help with soreness or swelling. Put a thin cloth between the ice and your skin. You may shower 24 to 48 hours after the procedure, if your doctor okays it. Pat the incision dry. Do not soak the catheter site until it is healed. Don't take a bath for 1 week, or until your doctor tells you it is okay. Watch for bleeding from the site. A small amount of blood (up to the size of a quarter) on the bandage can be normal. If you are bleeding, lie down and press on the area for 15 minutes to try to make it stop. If the bleeding does not stop, call your doctor or seek immediate medical care. Follow-up care is a lawler part of your treatment and safety. Be sure to make and go to all appointments, and call your doctor if you are having problems. It's also a good idea to know your test resultsand keep a list of the medicines you take. When should you call for help? Call 911 anytime you think you may need emergency care. For example, call if: You passed out (lost consciousness). You have severe trouble breathing. You have sudden chest pain and shortness of breath, or you cough up blood. You have symptoms of a heart attack, such as: ? Chest pain or pressure. ? Sweating. ? Shortness of breath. ? Nausea or vomiting. ? Pain that spreads from the chest to the neck, jaw, or one or both shoulders or arms. ? Dizziness or lightheadedness. ? A fast or uneven pulse. After calling 911, chew 1 adult-strength aspirin. Wait for an ambulance. Do not try to drive yourself. You have been diagnosed with angina, and you have angina symptoms that do not go away with rest or are not getting better within 5 minutes after you take one dose of nitroglycerin. Call your doctor now or seek immediate medical care if: You are bleeding from the area where the catheter was put in your artery. You have a fast-growing, painful lump at the catheter site. You have signs of infection, such as: ? Increased pain, swelling, warmth, or redness. ? Red streaks leading from the catheter site. ? Pus draining from the catheter site. ? A fever. Your leg, arm, or hand is painful, looks blue, or feels cold, numb, or tingly. Watch closely for changes in your health, and be sure to contact your doctor if you have any problems. Where can you learn more? Go to [email or web address] and sign in to your [employer] account. Enter Q672 in the Search Health Information box to learn more about Coronary Angioplasty: What to Expect at Home. If you do not have an account, please click on the Sign Up Now link. Current as of: June 15, 2019 Content Version: 12.6 [employer]. Care instructions adapted under license by [employer]. If you have questions about a medical condition or this instruction, always ask your healthcare professional. [employer] disclaims any warranty or liability for your use of this information. documented in this encounter* Instructions* Sheila Chávez RN - 09/20/2020 SAME DAY SURGERY DISCHARGE INSTRUCTIONS 1. Do not drive or operate hazardous machinery for 24 hours. 2. Do not make important personal or business decisions for 24 hours. 3. Do not drink alcoholic beverages for 24 hours. 4. Do not smoke tobacco products for 24 hours. 5. Eat light foods (Jell-O, soups, etc....) and drink plenty of fluids (water, Sprite, etc...) up to 8 glasses per day, as you can tolerate. 6. Limit your activities for 24 hours. Do not engage in heavy work until your surgeon gives you permission. 7. Report the following signs or any questions regarding your physical condition to your surgeon immediately: Excessive swelling of, or around the wound area. Redness. Temperature of 100 degrees (F) or above. Excessive pain. 8. Call your surgeon for any questions regarding your surgery. CYSTOSCOPY DISCHARGE INSTRUCTIONS Possible burning during urination and/or blood tinged urine. Drink 6-8 glasses of water for the next day or so. (This helps to flush the urinary tract.) Pang Catheter care as instructed. Call Dr. Thomas ([phone]) if you develop: Fever over 100 degrees Prolonged soreness/pain Unusual bleeding/bruising Unable to urinate or if urine is bloody You cannot pass urine 8 hours after the test. You have pain in your belly or your back just below your rib cage. (This is called flank pain.) You have frequent urge to urinate but can pass only small amounts of urine. Call Dr. Thomas office for follow-up appointment ([phone]). documented in this encounter History of Present Illness * Gigi Bowman RN - 04/21/2019 11:16 AM EDT Patient voided a little bit prior to leaving. * Gigi Bowman RN - 04/21/2019 11:13 AM EDT [facility] again on Saturday. Information relayed to patient and patient's . Both imply understanding. * Gigi Bowman RN - 04/21/2019 11:03 AM EDT Discharge instructions reviewed with patient and patient's . Both imply understanding. * Gigi Bowman RN - 04/21/2019 10:39 AM EDT Patient taken directly from phase 1 to restroom. Gait steady with standby assist. * Asya Medina RN - 04/21/2019 10:23 AM EDT Handoff to Gene Bowman RN * Beth Thomas RN - 04/09/2019 3:57 PM EDT Patient instructed on the pre-operative, intra-operative, and post-operative process. Patient's surgery arrival time to the hospital and surgery start time confirmed for the day of surgery. Patient instructed on NPO status. Medication instructions reviewed with patient. Pre operative instruction sheet reviewed and given to patient via telephone. Pt instructed to stop taking ASA and xarelto as instructed by Dr. Hsu. Instructed to stop taking all non prescription vitamins for 7 days prior to surgery and to only take metoprolol with a sip of water the morning of surgery. Instruction sheet for Dr. Hsu for xarelto and ASA faxed to office. documented in this encounter* Jonnie Kayce - 05/25/2020 1:20 PM EST CLINICAL PHARMACY NOTE: MEDS TO [facility] Patient?: No Total # of Prescriptions Filled: 1 The following medications were delivered to the patient: Clopidogrel Total # of Interventions Completed: 0 Time Spent (min): 0 Additional Documentation: med delivered to patient 05/25 at 1:15pm. Patient in room 1004. Co-pay paid with marie. ($11.98) * Asya Spencer - 05/25/2020 11:36 AM EST Cardiac Echo done at the bedside * Janet Valladares MD - 05/24/2020 9:10 AM EST [employer] Progress Note Date: 05/24/2020 Patient name: Missy Salgado Date of admission: 05/23/2020 11:53 AM Date of : 1940 PCP: Alexei Guzmán MD Reason for Admission: STEMI (ST elevation myocardial infarction) ([facility]) [I21.3] Subjective: Clinical Changes / Abnormalities: Patient seen and examined at bedside. No acute events overnight. No chest pain or shortness of breath. Laying comfortably in bed. Reports no specific complaints this morning. Would like his Urologistto be informed about his hospitalization as he was scheduled to have bladder surgery today. Urine output in the last 24 hours: Intake/Output Summary (Last 24 hours) at 05/24/2020 0910 Last data filed at 05/24/2020 0600 Gross per 24 hour Intake Output 1750 ml Net -1750 ml I/O since admission: -1.75 liters Medications: Scheduled Meds: sodium chloride flush 10 mL Intravenous 2 times per day atorvastatin 80 mg Oral Nightly aspirin 81 mg Oral Daily clopidogrel 75 mg Oral Daily Continuous Infusions: CBC: Recent Labs 05/23/20 0915 05/24/20 0559 WBC 8.3 13.5* HGB 13.7 13.1 PLT 194 179 BMP: Recent Labs 05/23/20 0915 05/24/20 0433 05/24/20 0559 NA 137 SPECIMEN GROSSLY HEMOLYZED 137 K 4.5 SPECIMEN GROSSLY HEMOLYZED 4.6 CL 102 SPECIMEN GROSSLY HEMOLYZED 106 CO2 25 SPECIMEN GROSSLY HEMOLYZED 22 BUN 19 SPECIMEN GROSSLY HEMOLYZED 19 CREATININE 1.47* SPECIMEN GROSSLY HEMOLYZED 1.28* GLUCOSE 126* SPECIMEN GROSSLY HEMOLYZED 120* Hepatic: Recent Labs 05/24/20 0433 05/24/20 0559 AST SPECIMEN GROSSLY HEMOLYZED 142* ALT SPECIMEN GROSSLY HEMOLYZED 36 BILITOT SPECIMEN GROSSLY HEMOLYZED 0.56 ALKPHOS SPECIMEN GROSSLY HEMOLYZED 55 Troponin: No results for input(s): TROPONINI in the last 72 hours. Recent Labs 05/23/20 0915 05/24/20 0559 TROPONINT NOT REPORTED NOT REPORTED BNP: No results for input(s): PROBNP in the last 72 hours. No results for input(s): BNP in the last 72 hours. Lipids: No results for input(s): CHOL, HDL in the last 72 hours. Invalid input(s): LDLCALCU INR: Recent Labs 05/23/20 0915 INR 1.0 Objective: Vitals: BP (!) 106/56 Pulse 51 Temp 97.5 F (36.4 C) (Oral) Resp 18 Ht 6' (1.829 m) Wt 190lb 0.6 oz (86.2 kg) SpO2 100% BMI 25.77 kg/m Constitutional and General Appearance: ? alert, cooperative, no distress and appears stated age Respiratory: No for increased work of breathing. On auscultation: clear to auscultation bilaterally Cardiovascular: The apical impulse is not displaced Heart tones are crisp and normal. Regular S1 and S2. No murmurs. Groin examined; no bleeding, oozing or hematoma noted Abdomen: No masses or tenderness Bowel sounds present Extremities: No Cyanosis or Clubbing Lower extremity edema: No Skin: Warm and dry Neurological: Alert and oriented. Moves all extremities well Diagnostic Studies: EKG: Inferior STEMI ECHO: pending Cardiac Angiography: Conclusions: Patent LCX stent (from 5 years ago) LAD has 40%n proximal stenosis RCA, dominant with 100% stenosis, required PTCA -BMS of distal RCA and proximal RPL branch (Due to bladder cancer and needs for surgery), LV gram was not done due to renal fiunction Recommendations: Post IN and stent protocol Will not be clear for any surgery for at least 4 weeks. Assessment / Acute Cardiac Problems: 1. Inferior STEMI s/p PTCA/BMS to distal RCA & prox RPL (due to upcoming bladder surgery secondary to cancer) 2. Parosyxmal Atrial fibrillation on Xarelto 3. CAD s/p PTCA/JOSE to LCx 4. Bladder Cancer: was scheduled to have surgery today. Xarelto and ASA were on hold for procedure. 5. HLD Plan of Treatment: 1. Continue ASA & plavix. Will need DAPT for 1 month 2. Continue Lipitor 80 mg once daily 3. Start Lopressor 12.5 BID if HR and BP allows 4. Restart home xarelto 5. 2D ECHO pending. Will follow up on result 6. K>4, Mg>2 Ruy Novoa MD Fellow, Cardiovascular Diseases [facility] Attending note, Feels good, no chest pain or SOB, feels good, follow on echo, trend troponin, continue current medications. Possible D/C home tomorrow. * Godfrey Abraham RCP - 05/23/2020 12:05 PM EST RAPID Covid 19 swab taken from left nare, labeled, placed in red dot bag, and handed off to second healthcare worker outside of room for transport to laboratory per hospital policy and procedure. Patient tolerated procedure well. * Mayco Atwood DO - 05/23/2020 10:30 AM EST [address] [facility] [address] [facility] Flight Physician Pt Name:Missy Salgado Birthdate 1940 Date of evaluation: 05/23/20 PCP: Alexei Guzmán MD REASON FOR FLIGHT Patient was transported from [place] to [facility] due to STEMI. HISTORY OF PRESENT ILLNESS Missy Salgado is a 80 y.o. male who presents as a transfer from [place] for inferior STEMI. Patient was at the gym on the [employer] and syncopized as he was walking to another piece of equipment. Hedoes not recall any of the events prior to, had no prodromal symptoms. Complained of some substernal chest heaviness, mild in nature, no difficulty breathing, no leg swelling or pain, no headache, nonew neck or back pain, no numbness or weakness, nausea or vomiting. Patient has a previous history of a stent placed 5 years ago in [place]. He is compliant with his medications, however he has beenoff his aspirin and Xarelto for the last week as he is scheduled for a cystoscopy tomorrow with urology. Previous smoker, drinks 2 alcoholic drinks a day, no drugs. Access: 20-gauge left AC PMH/Meds: A. flor, cardiac stent 5 years ago, cancer, on Xarelto and baby aspirin [facility] Arrival: VS: Heart rate 50s, BP 118/70, respirations 12, SPO2 96% on room air Physical Exam: Gen: Alert, no acute distress HEENT: Moist mucous membranes, pupils 3 mm equal and reactive, no tenderness to midline spine Neuro: GCS 15, alert, no deficits CV: Bradycardic in the 50s, regular rhythm, no murmurs, 2+ radial pulses bilaterally Pulm: CTA B no wheezes Abd: Soft nontender MSK: Muscle strength 5/5 in bilateral upper and lower extremities, no lower extremity edema En Route: Patient systolic pressure decreased to the low 110s, became bradycardic in the 40s, but had normal mentation and no acute changes. Started on fluids, heparin drip started, given Zofran 4 mg for some nausea, otherwise no acute abnormalities. Right-sided EKG performed, significant artifact initially,did show elevations in the inferior leads with normal V4R. Subsequent twelve-lead showed inferior STEMI with reciprocal changes in V2 and V3 Destination Arrival: Patient tolerated flight well, arrived to the [employer] MDM: Patient with inferior wall STEMI, with reciprocal changes, normal right-sided EKG, mild chest pressure, given full aspirin and heparin bolus with drip started prior to [facility] arrival. Patient tolerated well, slight bradycardia which is likely due to his location of his STEMI, however he maintained stable blood pressure. No signs of neurogenic cause for his syncope, likely due to STEMI, no neck or back pain, lower suspicion for PE as patient maintained normal saturations on room air. PRE HOSPITAL MEDICATIONS Full aspirin Heparin bolus Zofran 4 mg PROCEDURES/Ultrasound: None CRITICAL CARE: 60 minutes Mayco Atwood DO Life [facility] Physician (Please note that portions of this note were completed with a voicerecognition program. Efforts were made to edit the dictations but occasionally words are mis-transcribed.) documented in this encounter* Shara Andrew RN - 02/27/2019 8:45 AM EDT Pt arrived for scheduled Velcade injection Cycle 4 Day 8. Pt states he had a follow up appointment at [facility] on Saturday. Pt states the doctor had him recheck his blood there on Saturday. Pt states he creatine resulted at 1.56. Pt states the doctor down there was concerned with this result and madeseveral changes to his regimen. Pt states his Revlimd was decreased to 5mg, and he was told to takehis 10mg tabs every other day until the 5mg arrive. He also states he was told to hold the Bactrim,and to only take the Acyclovir once a day, not BID. Pt states he has implemented this changes. Pt documented in this encounter* Cha Enriquez RN - 09/09/2020 12:37 PM EST Patient instructed on the pre-operative, intra-operative, and post-operative process. Patient instructed on NPO status. Medication instructions reviewed with patient. Pre operative instruction sheet reviewed over the phone. Instructed pt to stop plavix 6 days prior to surgery and to stop xarelto [address] Connell's instructions and to stop OTC vitamins 7 days prior. Instructed pt to take metoprolol with a small sip of water prior to arriving to the hospital the day of surgery. documented in this encounter Reason for Referral Status Reason Specialty Diagnoses / Procedures Referre d By Contact Referred To Contact Open Cardiology Diagnoses 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) Procedures EKG 12 Lead Levy Thmoas MD [address] [place] [address], [address] [place] [address] Status Reason Specialty Diagnoses / Procedures Referred By Contact Referred To Contact Open Specialty Services Required Cardiac Rehabilitation Diagnoses ST elevation myocardial infarction (STEMI), unspecified artery (HCC) [address] [place] [address] [facility] Cardiac Rehab [address] [place] [id number] Scheduling Instructions [facility] Cardiac Rehabilitation [address] [place] [address] [phone] Isabell: [phone] Status Reason Specialty Diagnoses / Procedures Referre d By Contact Referred To Contact Closed Radiology Diagnoses Fatigue, unspecified type Procedures MRI BRAIN WO CONTRAST Raji Garcia, [address] [place] [address] Specialty Diagnoses / Procedures Referred By Contac t Referred To Contact Radiology Diagnoses Multiple myeloma, remission status unspecified (HCC) Procedures PET CT SKULL BASE TO MID THIGH Raquel Gunn MD [address] [place] [address] Referral ID Status Reason Start Date Expiration Date Visits Re quested Visits Authorized [id number] Closed 05/16/2021 05/16/2022 1 1 Specialty Diagnoses / Procedures Referred By Contac t Referred To Contact [facility] Diagnoses Achilles tendinitis of left lower extremity Procedures CONSULT TO PHYSICAL THERAPY PHYSICAL THERAPY EVALUATION HIGH COMPLEX 45 MINS David Molina MD [address] [place] [address] [facility] [place] [address] [place] [address] Referral ID Status Reason Start Date Expiration Date Visits Requested Visits Authorized [id number] Authorized PCP Requested Referral Auto-Generate d Referral 11/07/2021 10/31/2022 99 99 Specialty Diagnoses / Procedures Referred By Contac t Referred To Contact Cardiology Diagnoses S/P angioplasty with stent Юлия Larios MD [address] [place] [address] Mary Gan MD [address] [address] Referral ID Status Reason Start Date Expiration Date V isits Requested Visits Authorized [id number] Open Specialty Services Required 01/28/2022 07/27/2022 1 1 Scheduling Instructions [employer] Mary Gan MD [address] [facility]. [address] [place], [address] Specialty Diagnoses / Procedures Referred By Contac t Referred To Contact [facility] Diagnoses Multiple myeloma not having achieved remission (HCC) Procedures CONSULT TO PHYSICAL THERAPY PHYSICAL THERAPY [facility] 45 MINS David Molina MD [address] [place] [address] [facility] [place] [address] [place] [address] Referral ID Status Reason Start Date Expiration Date Visits Requested Visits Authorized [id number] Authorized PCP Requested Referral Auto-Generate d Referral 09/13/2022 09/13/2023 99 99 Specialty Diagnoses / Procedures Referred By Sofy t Referred To Contact General Surgery Diagnoses Multiple myeloma not having achieved remission (HCC) Procedures CONSULT TO GENERAL SURGERY OFFICE/OUTPATIENT [facility] 60-74 MINUTES David Molina MD [address] [place] [address] Referral ID Status Reason Start Date Expiration Date Visits Requested Visits Authorized [id number] Authorized PCP Requested Referral 3 06/11/2024 1 1 Specialty Diagnoses / Procedures Referred By Sofy t Referred To Contact Diagnoses Multiple myeloma not having achieved remission (HCC) Procedures CT SIM PLANNING RADIATION ONCOLOGY THER RAD SIMULAJ-AIDED FIELD SETTING COMPLEX Ana Goldberg MD [address] [place] [address] [place] [address] Referral ID Status Reason Start Date Expiration Date Visits Requested Visits Authorized [id number] Pending Review PCP Requested Referral 3 09/05/2023 1 1 Summary Purpose Family History No Family History Records Found Relationship Condition Age at Onset Recorded Date/T sushant father Heart disease Unknown Medications Administered Section Inactive Administered Medications - up to 3 most recent administrations Medication Order MAR Action Action Date Dose Rate Site acetaminophen 1,000 mg tab(s) (TYLENOL) 1,000 mg, ORAL, ONCE, 1 dose, On Sat10/17/21 at 1430, No more than 4000 mg of acetaminophen should be given per day (FROM ALL SOURCES), If ordered PRN for pain, patient/guardian may elect to receive this medication for higher pain levels INSTEAD of the opioid, if preferred: N/A Given 10/17/2021 2:25 PM EDT 1,000 mg daratumumab 1,800 mg - hyaluronidase-fihj 30,000 units 1,800 mg injection (DARZALEX FASPRO) 1,800 mg, SUBCUTANEOUS, ONCE, 1 dose, On Sat10/17/21 at 1430, ++FOR SUBCUTANEOUS ADMINISTRATION ONLY++ EXP: 10/17/21 1845 Protect From Light EXP: (4 HR) Inject subcutaneously into subcutaneous tissue on the abdomen approximately 3 inches to the right or left of the navel over 3 to 5 minutes. Given 10/17/2021 3:17 PM EDT 1,800 mg Abdomen, RLQ famotidine 20 mg tab(s) (PEPCID) 20 mg, ORAL, ONCE, 1 dose, On Sat10/17/21 at 1430 Given 10/17/2021 2:26 PM EDT 20 mg Inactive Administered Medications - up to 3 most recent administrations Medication Order MAR Action Action Date Dose Rate Site acetaminophen 1,000 mg tab(s) (TYLENOL) 1,000 mg, ORAL, ONCE, 1 dose, On Sat10/31/21 at 1430, No more than 4000 mg of acetaminophen should be given per day (FROM ALL SOURCES), If ordered PRN for pain, patient/guardian may elect to receive this medication for higher pain levels INSTEAD of the opioid, if preferred: N/A Given 10/31/2021 2:24 PM EDT 1,000 mg daratumumab 1,800 mg - hyaluronidase-fihj 30,000 units 1,800 mg injection (DARZALEX FASPRO) 1,800 mg, SUBCUTANEOUS, ONCE, 1 dose, On Sat10/31/21 at 1430, ++FOR SUBCUTANEOUS ADMINISTRATION ONLY++ EXP: 1830 Protect From Light EXP: (4 HR) Inject subcutaneously into subcutaneous tissue on the abdomen approximately 3 inches to the right or left of the navel over 3 to 5 minutes. Given 10/31/2021 3:01 PM EDT 1,800 mg Abdomen, LLQ famotidine 20 mg tab(s) (PEPCID) 20 mg, ORAL, ONCE, 1 dose, On Sat10/31/21 at 1430 Given 10/31/2021 2:24 PM EDT 20 mg Inactive Administered Medications - up to 3 most recent administrations Medication Order MAR Action Action Date Dose Rate Site acetaminophen 1,000 mg tab(s) (TYLENOL) 1,000 mg, ORAL, ONCE, 1 dose, On Sat11/14/21 at 1530, No more than 4000 mg of acetaminophen should be given per day (FROM ALL SOURCES), If ordered PRN for pain, patient/guardian may elect to receive this medication for higher pain levels INSTEAD of the opioid, if preferred: N/A Given 11/14/2021 3:25 PM EDT 1,000 mg daratumumab 1,800 mg - hyaluronidase-fihj 30,000 units 1,800 mg injection (DARZALEX FASPRO) 1,800 mg, SUBCUTANEOUS, ONCE, 1 dose, On Sat11/14/21 at 1530, ++FOR SUBCUTANEOUS ADMINISTRATION ONLY++ EXP 1712 11/14/21 Protect From Light EXP: (4 HR) Inject subcutaneously into subcutaneous tissue on the abdomen approximately 3 inches to the right or left of the navel over 3 to 5 minutes. Given 11/14/2021 3:49 PM EDT 1,800 mg Abdomen, RUQ famotidine 20 mg tab(s) (PEPCID) 20 mg, ORAL, ONCE, 1 dose, On Sat11/14/21 at 1530 Given 11/14/2021 3:25 PM EDT 20 mg Inactive Administered Medications - up to 3 most recent administrations Medication Order MAR Action Action Date Dose Rate Site daratumumab 1,800 mg - hyaluronidase-fihj 30,000 units 1,800 mg injection (DARZALEX FASPRO) 1,800 mg, SUBCUTANEOUS, ONCE, 1 dose, On Sat11/28/21 at 1530, ++FOR SUBCUTANEOUS ADMINISTRATION ONLY++ EXP: 1900 11/28/21 Protect From Light EXP: (4 HR) Inject subcutaneously into subcutaneous tissue on the abdomen approximately 3 inches to the right or left of the navel over 3 to 5 minutes. Given 11/28/2021 3:31 PM EDT 1,800 mg Abdomen, LUQ Inactive Administered Medications - up to 3 most recent administrations Medication Order MAR Action Action Date Dose Rate Site daratumumab 1,800 mg - hyaluronidase-fihj 30,000 units 1,800 mg injection (DARZALEX FASPRO) 1,800 mg, SUBCUTANEOUS, ONCE, 1 dose, On Sat12/12/21 at 1500, ++FOR SUBCUTANEOUS ADMINISTRATION ONLY++ EXP 189912/12/21 Protect From Light EXP: (4 HR) Inject subcutaneously into subcutaneous tissue on the abdomen approximately 3 inches to the right or left of the navel over 3 to 5 minutes. Given 12/12/2021 3:13 PM EDT 1,800 mg Abdomen, RLQ dexAMETHasone 20 mg tab(s) (DECADRON) 20 mg, ORAL, ONCE, 1 dose, On Sat12/12/21 at 1500 Given 12/12/2021 2:55 PM EDT 20 mg Inactive Administered Medications - up to 3 most recent administrations Medication Order MAR Action Action Date Dose Rate Site daratumumab 1,800 mg - hyaluronidase-fihj 30,000 units 1,800 mg injection (DARZALEX FASPRO) 1,800 mg, SUBCUTANEOUS, ONCE, 1 dose, On Sat12/25/21 at 1500, ++FOR SUBCUTANEOUS ADMINISTRATION ONLY++ EXP 204612/25/21 Protect From Light EXP: (4 HR) Inject subcutaneously into subcutaneous tissue on the abdomen approximately 3 inches to the right or left of the navel over 3 to 5 minutes. Given 12/25/2021 3:15 PM EDT 1,800 mg Abdomen, LLQ dexAMETHasone 20 mg tab(s) (DECADRON) 20 mg, ORAL, ONCE, 1 dose, On Sat12/25/21 at 1500 Given 12/25/2021 2:52 PM EDT 20 mg Inactive Administered Medications - up to 3 most recent administrations Medication Order MAR Action Action Date Dose Rate Site daratumumab 1,800 mg - hyaluronidase-fihj 30,000 units 1,800 mg injection (DARZALEX FASPRO) 1,800 mg, SUBCUTANEOUS, ONCE, 1 dose, On Sat01/09/22 at 1500, ++FOR SUBCUTANEOUS ADMINISTRATION ONLY++ EXP 01/09/22 1845 Room Temp Protect From Light EXP: (4 HR) Inject subcutaneously into subcutaneous tissue on the abdomen approximately 3 inches to the right or left of the navel over 3 to 5 minutes. Given 01/09/2022 2:55 PM EDT 1,800 mg Abdomen, RUQ dexAMETHasone 20 mg tab(s) (DECADRON) 20 mg, ORAL, ONCE, 1 dose, On Sat01/09/22 at 1500 Given 01/09/2022 2:47 PM EDT 20 mg Inactive Administered Medications - up to 3 most recent administrations Medication Order MAR Action Action Date Dose Rate Site daratumumab 1,800 mg - hyaluronidase-fihj 30,000 units 1,800 mg injection (DARZALEX FASPRO) 1,800 mg, SUBCUTANEOUS, ONCE, 1 dose, On Sat01/23/22 at 1430, ++FOR SUBCUTANEOUS ADMINISTRATION ONLY++ Exp 01/23/22 1830 Protect From Light EXP: (4 HR) Inject subcutaneously into subcutaneous tissue on the abdomen approximately 3 inches to the right or left of the navel over 3 to 5 minutes. Given 01/23/2022 2:35 PM EDT 1,800 mg Abdomen, LLQ dexAMETHasone 20 mg tab(s) (DECADRON) 20 mg, ORAL, ONCE, 1 dose, On Sat01/23/22 at 1430 Given 01/23/2022 2:33 PM EDT 20 mg Inactive Administered Medications - up to 3 most recent administrations Medication Order MAR Action Action Date Dose Rate Site daratumumab 1,800 mg - hyaluronidase-fihj 30,000 units 1,800 mg injection (DARZALEX FASPRO) 1,800 mg, SUBCUTANEOUS, ONCE, 1 dose, On Sat02/20/22 at 1500, ++FOR SUBCUTANEOUS ADMINISTRATION ONLY++ Exp: 1855 Protect From Light EXP: (4 HR) Inject subcutaneously into subcutaneous tissue on the abdomen approximately 3 inches to the right or left of the navel over 3 to 5 minutes. Given 02/20/2022 3:15 PM EDT 1,800 mg Abdomen, RUQ dexAMETHasone 20 mg tab(s) (DECADRON) 20 mg, ORAL, ONCE, 1 dose, On Sat02/20/22 at 1500 Given 02/20/2022 3:03 PM EDT 20 mg Inactive Administered Medications - up to 3 most recent administrations Medication Order MAR Action Action Date Dose Rate Site daratumumab 1,800 mg - hyaluronidase-fihj 30,000 units 1,800 mg injection (DARZALEX FASPRO) 1,800 mg, SUBCUTANEOUS, ONCE, 1 dose, On Sat10/02/22 at 1430, ++FOR SUBCUTANEOUS ADMINISTRATION ONLY++ EXP: (12 HR) Inject subcutaneously into subcutaneous tissue on the abdomen approximately 3 inches to the right or left of the navel over 3 to 5 minutes. Given 10/02/2022 2:56 PM EDT 1,800 mg Abdomen, RLQ Inactive Administered Medications - up to 3 most recent administrations Medication Order MAR Action Action Date Dose Rate Site daratumumab 1,800 mg - hyaluronidase-fihj 30,000 units 1,800 mg injection (DARZALEX FASPRO) 1,800 mg, SUBCUTANEOUS, ONCE, 1 dose, On Sat10/30/22 at 1530, ++FOR SUBCUTANEOUS ADMINISTRATION ONLY++ EXP: 10/30/22 1915 RT EXP: (12 HR) Inject subcutaneously into subcutaneous tissue on the abdomen approximately 3 inches to the right or left of the navel over 3 to 5 minutes. Given 10/30/2022 3:40 PM EDT 1,800 mg Abdomen, LUQ Inactive Administered Medications - up to 3 most recent administrations Medication Order MAR Action Action Date Dose Rate Site daratumumab 1,800 mg - hyaluronidase-fihj 30,000 units 1,800 mg injection (DARZALEX FASPRO) 1,800 mg, SUBCUTANEOUS, ONCE, 1 dose, On Sat12/25/22 at 1430, ++FOR SUBCUTANEOUS ADMINISTRATION ONLY++ EXP: 12/26/22 0500 EXP: (12 HR) Inject subcutaneously into subcutaneous tissue on the abdomen approximately 3 inches to the right or left of the navel over 3 to 5 minutes. Given 12/25/2022 2:39 PM EDT 1,800 mg Abdomen, RUQ Inactive Administered Medications - up to 3 most recent administrations Medication Order MAR Action Action Date Dose Rate Site daratumumab 1,800 mg - hyaluronidase-fihj 30,000 units 1,800 mg injection (DARZALEX FASPRO) 1,800 mg, SUBCUTANEOUS, ONCE, 1 dose, On Sat02/19/23 at 1500, ++FOR SUBCUTANEOUS ADMINISTRATION ONLY++ EXP: 02/19/23 1850 RT EXP: (12 HR) Inject subcutaneously into subcutaneous tissue on the abdomen approximately 3 inches to the right or left of the navel over 3 to 5 minutes. Given 02/19/2023 3:07 PM EDT 1,800 mg Abdomen, LLQ Inactive Administered Medications - up to 3 most recent administrations Medication Order [facility] Action Action Date Dose Rate Site daratumumab 1,800 mg - hyaluronidase-fihj 30,000 units 1,800 mg injection (DARZALEX FASPRO) 1,800 mg, SUBCUTANEOUS, ONCE, 1 dose, On Sat03/19/23 at 1530, ++FOR SUBCUTANEOUS ADMINISTRATION ONLY++ EXP: 0300 03/20/23 EXP: (12 HR) Inject subcutaneously into subcutaneous tissue on the abdomen approximately 3 inches to the right or left of the navel over 3 to 5 minutes. Given 03/19/2023 3:26 PM EDT 1,800 mg Abdomen, RLQ Inactive Administered Medications - up to 3 most recent administrations Medication Order [facility] Action Action Date Dose Rate Site daratumumab 1,800 mg - hyaluronidase-fihj 30,000 units 1,800 mg injection (DARZALEX FASPRO) 1,800 mg, SUBCUTANEOUS, ONCE, 1 dose, On Sat04/16/23 at 1400, ++FOR SUBCUTANEOUS ADMINISTRATION ONLY++ EXP: 04/17/2023@0400 EXP: (12 HR) Inject subcutaneously into subcutaneous tissue on the abdomen approximately 3 inches to the right or left of the navel over 3 to 5 minutes. Given 04/16/2023 2:12 PM EDT 1,800 mg Abdomen, RLQ Chief Complaint and Reason for Visit Chief Complaint Multiple Myeloma Chief Complaint Multiple Myeloma A FIB, Other Cardiac Implants & Grafts Chief Complaint Multiple Myeloma A FIB, Other Cardiac Implants & Grafts Reason for Visit [id number] Paroxysmal atrial fibrillation Presence of Watchman left atrial appendage closure device Vasovagal syncope Chief Complaint [facility] f[facility]u, covid , still has chest congeston Chief Complaint [facility] f/u, covid , still has chest congeston T2 Fracture s/p fall T2 Fracture s/p fall T2 Fracture s/p fall Reason for Visit COVID-19 Multiple myeloma Paroxysmal atrial fibrillation Presence of Watchman left atrial appendage closure device Aspiration pneumonia Atrial fibrillation [id number] COVID-19 Esophageal dysphagia Multiple myeloma Oropharyngeal dysphagia Pain due to fracture Paroxysmal atrial fibrillation Presence of Watchman left atrial appendage closure device T2 vertebral fracture Vasovagal syncope Chief Complaint [facility] f/u, covid , still has chest congeston T2 Fracture s/p fall T2 Fracture s/p fall T2 Fracture s/p fall [facility]:NonSurgical Back Fracture Reason for Visit COVID-19 Multiple myeloma Paroxysmal atrial fibrillation Presence of Watchman left atrial appendage closure device Aspiration pneumonia Atrial fibrillation [id number] COVID-19 Esophageal dysphagia Multiple myeloma Oropharyngeal dysphagia Pain due to fracture Paroxysmal atrial fibrillation Presence of Watchman left atrial appendage closure device T2 vertebral fracture Vasovagal syncope Chief Complaint [facility] f/u, covid , still has chest congeston T2 Fracture s/p fall T2 Fracture s/p fall T2 Fracture s/p fall I48.0 [facility]:NonSurgical Back Fracture Reason for Visit COVID-19 Multiple myeloma Paroxysmal atrial fibrillation Presence of Watchman left atrial appendage closure device Aspiration pneumonia Atrial fibrillation [id number] COVID-19 Esophageal dysphagia Multiple myeloma Oropharyngeal dysphagia Pain due to fracture Paroxysmal atrial fibrillation Presence of Watchman left atrial appendage closure device T2 vertebral fracture Vasovagal syncope Additional Source Comments Reason for Visit (unrecogniz ed section and content) Status Reason Specialty Diagnoses / Procedures Referred By Contact Referred To Contact Authorized Diagnoses 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) Procedures Nic Badillo MD [address] [place] [address] [facility] On[facility] [address] [place] [address] Status Reason Specialty Diagnoses / Procedures Referre d By Contact Referred To Contact Diagnoses BLADDER TUMOR Procedures DE CYSTOURETHROSCOPY,FULGUR 2-5CM LESN CYSTOSCOPY TRANSURETHRAL RESECTION BLADDER Levy Thomas MD [address] [place] [address] [facility] Reason Comments Chest Pain was at [facility] was work ing out changed machines and doesn't remember anything after that Loss of Consciousness Status Reason Specialty Diagnoses / Procedures Referre d By Contact Referred To Contact Diagnoses Bladder tumor BLADDER TUMOR Procedures DE CYSTOURETHROSCOPY,FULGUR 2-5CM LESN CYSTOSCOPY TRANSURETHRAL RESECTION BLADDER Levy Thomas MD [address] [facility], [address] [place] [address] [facility] Status Reason Specialty Diagnoses / Procedures Referre d By Contact Referred To Contact Closed Radiology Diagnoses Fatigue, unspecified type Procedures MRI BRAIN WO CONTRAST Raji Garcia DO [address] [place] [address] [place] [address] Status Reason Specialty Diagnoses / Procedures Referred By Contact Referred To Contact Pending Review Specialty Services Required Physical Therapy Diagnoses Multiple myeloma in remission (HCC) 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) Generalized weakness [facility] [address] [place] [address] [facility] Physical Therapy [address] [place] [id number] Reason Comments Chest Pain left sided chest angella n started while excersing Reason Comments Altered Mental Status Specialty Diagnoses / Procedures Referred By Sofy ramirez Referred To Contact Cardiac Rehabilitation Diagnoses ST elevation myocardial infarction (STEMI), unspecified artery (HCC) [facility] [address] [facility] [place] [address] [facility] Cardiac Rehab [address] [phone] Referral ID Status Reason Start Date Expiration Date V isits Requested Visits Authorized [id number] Open Specialty Services Required 04/27/2021 04/27/2022 1 1 Specialty Diagnoses / Procedures Referred By [facility] Referred To Contact Radiology Diagnoses Multiple myeloma, remission status unspecified (HCC) Procedures PET CT SKULL BASE TO MID THIGH Raquel Gunn MD [address] [place] [address] Referral ID Status Reason Start Date Expiration Date Visits Re quested Visits Authorized [id number] Closed 05/16/2021 05/16/2022 1 1 Reason Comments Multiple Myeloma new patient consulta tion ref. Dr Allie Solares Reason Comments Lab Orders Reason Comments Multiple Myeloma Specialty Diagnoses / Procedures Referred By [facility] Referred To Contact Diagnoses Multiple myeloma, remission status unspecified (HCC) David Molina MD [address] [place] [address] Gwyn Treat [address] [place] [address] Referral ID Status Reason Start Date Expiration Date V isits Requested Visits Authorized [id number] Authorized 09/27/2021 12/26/2021 99 99 Reason Comments Care Coordination xray results Reason Comments Multiple Myeloma OTV 2 weeks Reason Comments Referral Information PT Reason Comments Chemotherapy Follow-up Reason Comments Multiple Myeloma OTV 2 weeks Reason Comments Multiple Myeloma Reason Comments Loss of Consciousness Hematuria Reason Comments Multiple Myeloma OTV 4 weeks Reason Comments Care Coordination Lab results Reason Comments Care Coordination Appointment question Specialty Diagnoses / Procedures Referred By [facility] Referred To Contact [facility] [address] [place] [address] Referral ID Status Reason Start Date Expiration Date Visits Re quested Visits Authorized [id number] 1 1 Reason Comments Request Outside Medical Records Reason Comments Multiple Myeloma 4 week follow up Reason Comments Results Reason Comments Care Coordination Treatment verificati on Reason Comments Appointment Reason Comments Care Coordination Vertigo Reason Comments Care Coordination Vaccine question Reason Comments Care Coordination Medication Question Reason Comments 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 - Other Medication Ques tion Reason Comments Refill Request Reason Comments Multiple Myeloma OTV 4 weeks Reason Comments Multiple Myeloma OTV Reason Comments First Time Treatment Education Reason Onset Date Comments Refill Request 05/15/2023 Reason Comments Care Coordination Follow up appointmen t and treatment Reason Comments Care Coordination Clinical update Reason Onset Date Comments Refill Request 05/21/2023 Reason Comments Care Coordination Appointment reschedu le Reason Comments Care Coordination Clinical update Reason Comments Care Coordination ER recommendation Reason Comments Care Coordination C1D1 treatment follo w up call Reason Comments Radiotherapy On-treatment Visit Reason Comments Care Coordination Pomalyst update Reason Comments Care Coordination Med question Reason Comments Multiple Myeloma Treatment visit Reason Onset Date Comments Simulation Request Form 06/07/2023 Reason Comments Care Coordination weakness Reason Comments Care Coordination ER Reason Comments Multiple Myeloma Follow up/port draw Reason Comments Care Coordination ER follow up call Referral ID Status Reason Start Date Expiration Date Visits Re quested Visits Authorized [id number] Closed 09/27/2021 12/26/2021 99 99 Reason Comments Care Coordination results Reason Comments Care Coordination Urine results Reason Comments Multiple Myeloma Treatment visit/port draw Reason Comments Medication Update [facility] Reason Comments Care Coordination Oral chemotherapy Reason Comments Multiple Myeloma Follow up Reason Comments Medication Authorization Reason Comments Blood Draw ([facility]) Reason Comments Multiple Myeloma 3 week follow up Reason Onset Date Comments Refill Request 12/24/2023 Reason Comments Care Coordination Chest congestion Reason Comments Care Coordination Transition of care Reason Comments Care Coordination Abnormal labs Reason Comments Radiology NM Specialty Diagnoses / Procedures Referred By Contac t Referred To Contact MOLECULAR & FUNCTIONAL IMAGING Diagnoses Multiple myeloma not having achieved remission (HCC) Procedures NM PET/CT WHOLE BODY SUBSEQUENT PET IMAGING FOR CT ATTENUATION WHOLE BODY David Molina MD [address] [place] [phone] [facility] [address] [place] [address] Referral ID Status Reason Start Date Expiration Date V isits Requested Visits Authorized [id number] Closed Auto-Generate d Referral 05/17/2023 05/15/2024 1 1 Referral ID Status Reason Start Date Expiration Date V isits Requested Visits Authorized [id number] Closed Auto-Generate d Referral 05/25/2022 05/24/2023 1 1 Reason Comments Radio Gen RMP Specialty Diagnoses / Procedures Referred By Contac t Referred To Contact XR IMAGING Diagnoses Multiple myeloma, remission status unspecified (HCC) Acute left ankle pain Procedures XR ANKLE GENERAL 3V AP/LAT/OBL LEFT RADEX ANKLE COMPLETE MINIMUM 3 VIEWS Thi Valera, CALLY [address] [place] [address] [place] [address] [place] [id number] Referral ID Status Reason Start Date Expiration Date V isits Requested Visits Authorized [id number] Closed Auto-Generate d Referral 10/17/2021 11/16/2022 1 1 (unrecognized sect ion and content) No Status Records FoundNo Status Records FoundNo Status Records FoundNo Status Records FoundNo Status Records FoundNo Status Records FoundNo Status Records FoundNo Status Records FoundNo Status Records FoundNo Status Records FoundNo Status Records Found INFORMATION SOURCE (unrecogn ized section and content) DATE CREATED AUTHOR 03/02/2021 [facility] DATE CREATED AUTHOR AUTHOR'S ORGANIZ ATION 08/21/2021 [facility] DATE CREATED AUTHOR AUTHOR'S ORGANIZ ATION 12/18/2022 [facility] DATE CREATED AUTHOR AUTHOR'S ORGANIZ ATION 07/17/2023 [facility] EP[facility] DATE CREATED AUTHOR AUTHOR'S ORGANIZ ATION 11/10/2023 [facility] DATE CREATED AUTHOR AUTHOR'S ORGANIZ ATION 03/06/2024 [facility] DATE CREATED AUTHOR AUTHOR'S ORGANIZ ATION 03/14/2024 [facility] DATE CREATED AUTHOR AUTHOR'S ORGANIZ ATION 03/24/2024 [facility] DATE CREATED AUTHOR AUTHOR'S ORGANIZ ATION 04/06/2024 [facility] DATE CREATED AUTHOR AUTHOR'S ORGANIZ ATION 04/09/2024 [facility] DATE CREATED AUTHOR AUTHOR'S ORGANIZ ATION 04/09/2024 [facility] Ordered Prescriptions (unrec ognized section and content) Prescription Sig Dispensed Refills Start Date End Da te oxyCODONE-acetaminophen (PERCOCET) 5-325 MG per tabletIndications:Patho logical fracture of rib, initial encounter Take 1-2 tablets by mouth every 6 hours as needed for Pain for up to 3 days. WARNING: May cause drowsiness. May impair ability to operate vehicles or machinery. Do not use in combination with alcohol. 6 tablet 0 03/03/2021 03/06/2021 Prescription Sig Dispensed Refills Start Date End Da te atorvastatin (LIPITOR) 80 MG tablet Take 1 tablet by mouth nightly 30 tablet 3 04/27/2021 aspirin 81 MG chewable tablet Take 1 tablet by mouth daily 30 tablet 3 04/28/2021 Prescription Sig Dispensed Refills Start Date End Da te ciprofloxacin (CIPRO) 500 MG tablet Take 1 tablet by mouth in the morning and 1 tablet before bedtime. Do all this for 2 days. 4 tablet 0 01/28/2022 01/30/2022 tamsulosin (FLOMAX) 0.4 MG capsule Take 1 capsule by mouth in the morning. 30 capsule 3 01/29/2022 oxybutynin (DITROPAN-XL) 5 MG extended release tablet Take 1 tablet by mouth daily as needed (bladder spasms, pang discomfort) 30 tablet 3 01/28/2022 midodrine (PROAMATINE) 10 MG tablet Take 1 tablet by mouth in the morning and 1 tablet at noon and 1 tablet in the evening. Take with meals. 90 tablet 0 01/28/2022 02/27/2022 hyoscyamine (LEVSIN/SL) [address] 1 tablet under the tongue every 4 hours as needed for Cramping (if oxybutynin does not help to control bladder spasms) 30 tablet 0 01/28/2022 02/27/2022 Prescription Sig Dispensed Refills Start Date End Da te rivaroxaban (XARELTO) 20 MG TABS tablet Take 1 tablet by mouth daily 45 tablet 0 03/21/2022 rivaroxaban (XARELTO) 20 MG TABS tablet Take 1 tablet by mouth daily 30 tablet 0 03/21/2022 03/21/2022 PRN Active and Recently Administ ered Medications (unrecognized section and content) Medication Order 03/01/2021 03/02/2021 03/03/2021 iopamidol (ISOVUE-370) 76 % injection 75 mL (COMPLETED) 75 mL, IntraVENous, IMG ONCE PRN, Other, Starting on Sat03/03/21 at 1438, For 1 dose 1440 (Given - Provid er: Lucy Chaney) Scheduled Medication Order 04/23/2021 04/24/2021 04/25/2021 0.9 % sodium chloride bolus (COMPLETED) 1,000 mL (11.6 mL/kg), IntraVENous, at 1,000 mL/hr, Administer over 1 Hours, ONCE, On Sat04/25/21 at 1000, For 1 dose, For adult patients weighing > 55 kg (120 lbs.) and less than <50 years of age initiate 0.9NS at 500 mL/ hr. All bolus orders are to be given over 10 to 15 minutes 1005 (New Bag - Prov ider: Taina Henderson RN)1045 (Patient Transferred to Other Facility - Provider: Taina Henderson RN) aspirin chewable tablet 324 mg (COMPLETED) 324 mg, Oral, ONCE, On Sat04/25/21 at 1015, For 1 dose 1009 (Given - Provid er: Taina Henderson RN) atropine injection 0.4 mg (COMPLETED) 0.4 mg, IntraVENous, ONCE, On Sat04/25/21 at 1015, For 1 dose 1012 (Given - Provid er: Taina Henderson RN) ondansetron (ZOFRAN) injection 4 mg 4 mg, IntraVENous, ONCE, On Sat04/25/21 at 1045, For 1 dose Continuous Medication Order 04/23/2021 04/24/2021 04/25/2021 DOPamine (INTROPIN) 400 mg in dextrose 5 % 250 mL infusion 2-20 mcg/kg/min 86.2 kg (6.465-64.65 mL/hr, rounded to 6.5-64.7 mL/hr), IntraVENous, at 6.5-64.7 mL/hr, CONTINUOUS, Starting on Sat04/25/21 at 1030, Titrate to MAP greater than 100 mmHg Dose Range: 2 to 20 mcg/kg/min Initial dose 5 mcg/kg/min. Max dose: 20 mcg/kg/min Contact physician if max dose does not achieve desired response If dose LESS than 10 mcg/kg/min titrate by 2.5 mcg/kg/min no faster than every 5 minutes to goal If dose GREATER than or equal to 10 mcg/kg/min titrate by 5 mcg/kg/min no faster than every 5 minutes to goal When approaching therapeutic goal or weaning off, smaller titration increments of 1 mcg/kg/min no faster than every 5 minutes may be used to maintain goal 1025 (New Bag - Prov ider: Taina Henderson RN)1030 (Rate/Dose Change - Provider: Taina Henderson RN)1040 (Patient Transferred to Other Facility - Provider: Taina Henderson RN) No Frequency Medication Order 04/23/2021 04/24/2021 04/25/2021 ondansetron (ZOFRAN) 4 MG/2ML injection (COMPLETED) Starting on Sat04/25/21 at 1038, For 1 dose, Taina Henderson: cabinet override 1042 (Given - Provid er: Taina Henderson RN) Scheduled Medication Order 04/25/2021 04/26/2021 04/27/2021 aspirin chewable tablet 81 mg 81 mg, Oral, DAILY, First dose on Sat04/26/21 at 0900, Recovery(Cath) 0900 (Given - Provider: Sendy Calderon RN) 0844 (Given - Provider: Yaneli Lopez RN) atorvastatin (LIPITOR) tablet 80 mg 80 mg, Oral, NIGHTLY, First dose on Sat04/25/21 at 2100, Recovery(Cath) 1937 (Given - Provider: Suzan Rodriguez RN) 1953 (Given - Provider: Suzan Rodriguez RN) 2100 (Due) clopidogrel (PLAVIX) tablet 300 mg (COMPLETED) 300 mg, Oral, ONCE, On Sat04/26/21 at 0800, For 1 dose, Recovery(Cath) 0859 (Given - Provider: Sendy Calderon RN) clopidogrel (PLAVIX) tablet 75 mg 75 mg, Oral, DAILY, First dose on Sat04/26/21 at 0900 0900 (Not Given - Provider: Sendy Calderon RN - Reason: Other - Comment: loading dose start 75mg tomorrow) 0844 (Given - Provider: Yaneli Lopez RN) metoprolol tartrate (LOPRESSOR) tablet 12.5 mg 12.5 mg, Oral, 2 TIMES DAILY, First dose on Sat04/25/21 at 1400, Hold if heart rate less than 60, Recovery(Cath) 1400 (Not Given - Provider: Georgina Maradiaga RN - Reason: Other)2033 (Not Given - Provider: Suzan Rodriguez RN - Reason: Contraindicated - Comment: bradycardic) 09 (Not Given - Provider: Sendy Calderon RN - Reason: Other - Comment: bp too low)1952 (Given - Provider: Suzan Rodriguez RN) 0844 (Given - Provider: Yaneli Lopez, PINO)2100 (Due) rivaroxaban (XARELTO) tablet 20 mg 20 mg, Oral, DAILY, First dose on Sat04/27/21 at 1800, ANTICOAGULANT! Doses greater than 15 mg/day must be administered with food. 1320 (Held by provider - Provider: Luis Enrique Jennings DO - Reason: Other)1800 (Automatically Held - Provider: Luis Enrique Jennings DO) sodium chloride flush 0.9 % injection 5-40 mL 5-40 mL, IntraVENous, EVERY 12 HOURS SCHEDULED (2 times per day), First dose on Sat04/25/21 at 2100, For Line Patency: Peripheral IV = 5 mL; Midline or Central Line = 10 mL/lumen. If following IV push medication, administer flush at same rate as the IV push. Flush volume is determined by type of infusion therapy being given. For non-viscous solutions use: Peripheral IV = 5 mL Midline or Central Line = 10 mL/lumen For viscous solutions (i.e. blood components, parenteral nutrition, contrast media, or after obtaining blood sample) use: Peripheral IV = 10 mL Midline or Central Line = 20 mL/lumen, Recovery(Cath) 193 (Given - Provider: Suzan Rodriguez RN) 09 (Given - Provider: Sendy Calderon RN)1952 (Given - Provider: Suzan Rodriguez RN) 0845 (Given - Provider: Yaneli Lopez, PINO)2100 (Due) PRN Medication Order 04/25/2021 04/26/2021 04/27/2021 0.9 % sodium chloride infusion 25 mL, IntraVENous, at 100 mL/hr, PRN, If patient receiving piggyback infusions without ordered maintenance IV fluids or with frequent/long duration piggyback infusions, Starting on Sat04/25/21 at 1231, Administer at the same rate as the piggyback being infused., Recovery(Cath) acetaminophen (TYLENOL) tablet 650 mg 650 mg, Oral, EVERY 4 HOURS PRN, Pain Mild (1-3), Fever, Fever >100.5 F (38 C), Starting on Sat04/25/21 at 1231, Maximum dose of acetaminophen is 4000 mg from all sources in 24 hours., Recovery(Cath) ondansetron (ZOFRAN) injection 4 mg 4 mg, IntraVENous, EVERY 6 HOURS PRN, Nausea, Vomiting, Starting on Sat04/25/21 at 1231, Avoid if QT is more than 500, Recovery(Cath) sodium chloride flush 0.9 % injection 5-40 mL 5-40 mL, IntraVENous, PRN, Line Care, Starting on Sat04/25/21 at 1231, For Line Patency: Peripheral IV = 5 mL; Midline or Central Line = 10 mL/lumen. If following IV push medication, administer flush at same rate as the IV push. Flush volume is determined by type of infusion therapy being given. For non-viscous solutions use: Peripheral IV = 5 mL Midline or Central Line = 10 mL/lumen For viscous solutions (i.e. blood components, parenteral nutrition, contrast media, or after obtaining blood sample) use: Peripheral IV = 10 mL Midline or Central Line = 20 mL/lumen, Recovery(Cath) Scheduled Medication Order 01/26/2022 01/27/2022 01/28/2022 calcium elemental (OSCAL) tablet 500 mg Product is calcium carbonate, but it is dosed in elemental calcium. Calcium carbonate 1250 mg = 500 mg elemental calcium = 1 tablet Os-Seth., 500 mg, Oral, 2 TIMES DAILY, First dose on Julieth 01/25/22 at 0900, Until Discontinued 828 (Given - Provider: Malou Tejada RN)2053 (Given - Provider: Sheree Brannon RN) 821 (Given - Provider: Malou Tejada RN)2009 (Given - Provider: Samara Bob RN) 921 (Given - Provider: Nano Simon RN)2099 (Due) clopidogrel (PLAVIX) tablet 75 mg 75 mg, Oral, DAILY, First dose on Julieth 01/25/22 at 1530, Until Discontinued 828 (Given - Provider: Malou Tejada RN) 821 (Given - Provider: Malou Tejada RN) 921 (Given - Provider: Nano Simon RN) heparin (porcine) injection 5,000 Units 5,000 Units, SubCUTAneous, EVERY 8 HOURS SCHEDULED (3 times per day), First dose on Sat01/27/22 at 1400, Until Discontinued 1433 (Given - Provider: Malou Tejada RN)2009 (Given - Provider: Samara Bob RN) 0716 (Given - Provider: Samara Bob RN)1400 (Due)2200 (Due) lactobacillus (CULTURELLE) capsule 1 capsule 1 capsule, Oral, DAILY WITH BREAKFAST, First dose on Sat01/25/22 at 0800, Until Discontinued, Do not add to warm or hot foods or beverages. Caps may be opened & mixed in a cool beverage or sprinkled onto baby food or applesauce. Mix entire packet content into cool food or drink until dissolved. 0829 (Given - Provider: Malou Tejada RN) 0822 (Given - Provider: Malou Tejada RN) 0924 (Given - Provider: Nano Simon, PINO) metoprolol tartrate (LOPRESSOR) tablet 12.5 mg (CANCELED) 12.5 mg, Oral, 2 TIMES DAILY, First dose on Sat01/27/22 at 0930, Until Discontinued 0945 (Given - Provider: Malou Tejada RN) midodrine (PROAMATINE) tablet 10 mg 10 mg, Oral, 3 TIMES DAILY WITH MEALS, First dose (after last modification) on Sat01/26/22 at 1700, Until Discontinued, Do not give after 1800 or within 4 hrs of bedtime. 1730 (Given - Provider: Malou Tejada RN) 0822 (Given - Provider: Malou Tejada RN)1211 (Given - Provider: Malou Tejada RN)1838 (Given - Provider: Malou Tejada, PINO) 0923 (Not Given - Provider: Nano Simon RN - Reason: Contraindicated)1203 (Given - Provider: Nano Simon, PINO)1700 (Due) midodrine (PROAMATINE) tablet 5 mg (CANCELED) 5 mg, Oral, 3 TIMES DAILY WITH MEALS, First dose on Sat01/26/22 at 0815, Until Discontinued, Do not give after 1800 or within 4 hrs of bedtime. 0917 (Given - Provider: Malou Tejada RN)1228 (Given - Provider: Malou Tejada RN) pantoprazole (PROTONIX) tablet 40 mg 40 mg, Oral, DAILY BEFORE BREAKFAST, First dose on Sat01/26/22 at 0700, Until Discontinued, Do not crush or break. 0609 (Given - Provider: David Torres RN) 0822 (Given - Provider: Malou Tejada RN) 0923 (Given - Provider: Nano Simon, PINO) piperacillin-tazobactam (ZOSYN) 3,375 mg in dextrose 5 % 50 mL IVPB extended infusion (mini-bag) 3,375 mg, IntraVENous, EVERY 8 HOURS, 15 doses, First dose on Sat01/25/22 at 1415, Last dose on Sat01/30/22 at 0615, Antimicrobial Indications: Bloodstream Infection 0140 (Stopped - Provider: David Torres RN)0610 (New Bag - Provider: David Torres RN)1010 (Stopped - Provider: Malou Tejada RN)1344 (New Bag - Provider: Malou Tejada RN)1745 (Stopped - Provider: Malou Tejada RN)2057 (New Bag - Provider: Sheree Brannon RN) 0100 (Stopped - Provider: Sheree Brannon RN)0619 (New Bag - Provider: Sheree Brannon RN)1020 (Stopped - Provider: Malou Tejada RN)1425 (New Bag - Provider: Malou Tejada RN)1839 (Stopped - Provider: Malou Tejada RN)2053 (New Bag - Provider: Samara Bob RN) 0134 (Stopped - Provider: Samara Bob RN)0718 (New Bag - Provider: Samara Bob RN)1118 (Stopped - Provider: Nano Simon, PINO)1415 (Due)2215 (Due) sodium chloride flush 0.9 % injection 5-40 mL 5-40 mL, IntraVENous, EVERY 12 HOURS SCHEDULED (2 times per day), First dose on Sat01/24/22 at 2300, Until Discontinued, For Line Patency: Peripheral IV = 5 mL; Midline or Central Line = 10 mL/lumen. If following IV push medication, administer flush at same rate as the IV push. Flush volume is determined by type of infusion therapy being given. For non-viscous solutions use: Peripheral IV = 5 mL Midline or Central Line = 10 mL/lumen For viscous solutions (i.e. blood components, parenteral nutrition, contrast media, or after obtaining blood sample) use: Peripheral IV = 10 mL Midline or Central Line = 20 mL/lumen 0827 (Not Given - Provider: Malou Tejada RN - Reason: IV Fluid Infusing)193 (Not Given - Provider: Sheree Brannon RN - Reason: IV Fluid Infusing) 08 (Not Given - Provider: Malou Tejada RN - Reason: IV Fluid Infusing)2008 (Given - Provider: Samara Bob RN) 09 (Not Given - Provider: Nano Simon RN - Reason: Contraindicated)2099 (Due) tamsulosin (FLOMAX) capsule 0.4 mg 0.4 mg, Oral, DAILY, First dose on Sat01/26/22 at 1300, Until Discontinued, Do not crush or break. 1345 (Given - Provider: Malou Tejada RN) 0822 (Given - Provider: Malou Tejada RN) 0921 (Given - Provider: Nano Simon, PINO) Continuous Medication Order 01/26/2022 01/27/2022 01/28/2022 0.9 % sodium chloride infusion (CANCELED) IntraVENous, at 75 mL/hr, CONTINUOUS, Starting on Sat01/25/22 at 0845 0609 (New Bag - Provider: David Torres RN) 1248 (Stopped - Provider: Nano Simon, PINO) PRN Medication Order 01/26/2022 01/27/2022 01/28/2022 0.9 % sodium chloride infusion IntraVENous, at 5-250 mL/hr, PRN, if patient receiving piggyback infusions and maintenance fluids are not ordered OR KVO fluids to protect IV site / prevent frequent line interruptions/ long duration, Starting on Sat01/24/22 at 2241, For piggyback infusion, administer at same rate as piggyback for a total of 25 mL. Enter 25 mL into dose field and piggyback rate into rate field of order. If piggyback is infusing at a rate less than 100 mL/hr, enter 25 mL into dose field and 100 mL/hr into rate field of order. For KVO fluids, enter rate of 20 mL/hr or less into rate field of order. acetaminophen (TYLENOL) suppository 650 mg(Linked Group 1) 650 mg, Rectal, EVERY 6 HOURS PRN, Starting on Sat01/24/22 at 2241, Until Discontinued, Pain Mild (1-3), Fever, For temp greater than 100.4 F (38 C), Administer if oral route cannot be used. acetaminophen (TYLENOL) tablet 650 mg(Linked Group 1) 650 mg, Oral, EVERY 6 HOURS PRN, Starting on Sat01/24/22 at 2241, Until Discontinued, Pain Mild (1-3), Fever, For temp greater than 100.4 F (38 C), Maximum dose of acetaminophen is 4000 mg from all sources in 24 hours. hyoscyamine (LEVSIN/SL) sublingual tablet 125 mcg 125 mcg, SubLINGual, EVERY 4 HOURS PRN, Starting on Sat01/24/22 at 2353, Until Discontinued, Cramping, if oxybutynin does not help to control bladder spasms magnesium sulfate 1000 mg in dextrose 5% 100 mL IVPB 1,000 mg, IntraVENous, at 100 mL/hr, Administer over 1 Hours, PRN, Other, Per IV Magnesium Replacement Protocol, Starting on Sat01/24/22 at 2241, Mg Lab Replacement Action 1.4-1.6 1 gram IVPB x 2 doses (2 gram Total) 1.0-1.3 1 gram IVPB x 4 doses (4 gram Total) <1.0 CALL PHYSICIAN and 1 gram IVPB x 4 doses (4 gram Total) Infuse at 1 gram/hr Repeat Mag level next AM Protocol not for use in Patients with CrCl<30ml/min ondansetron (ZOFRAN) injection 4 mg(Linked Group 2) 4 mg, IntraVENous, EVERY 6 HOURS PRN, Starting on Sat01/24/22 at 2241, Until Discontinued, Nausea, Vomiting, Administer if oral route cannot be used. ondansetron (ZOFRAN-ODT) disintegrating tablet 4 mg(Linked Group 2) 4 mg, Oral, EVERY 8 HOURS PRN, Starting on Sat01/24/22 at 2241, Until Discontinued, Nausea, Vomiting opium-belladonna (B&O SUPPRETTES) 16.2-60 MG suppository 60 mg mg dosing is based on opium component, 60 mg, Rectal, EVERY 8 HOURS PRN, Starting on Sat01/24/22 at 2354, Until Discontinued, Bladder Spasms, USE FIRST BEFORE OXYBUTYNIN AND LEVSIN oxybutynin (DITROPAN-XL) extended release tablet 5 mg 5 mg, Oral, DAILY PRN, Starting on Sat01/24/22 at 2353, Until Discontinued, bladder spasms, pang discomfort, Do not crush or break. 0408 (Given - Provider: Sheree Brannon RN) polyethylene glycol (GLYCOLAX) packet 17 g 17 g, Oral, DAILY PRN, Starting on Sat01/24/22 at 2241, Until Discontinued, Constipation, First line therapy for constipation potassium bicarb-citric acid (EFFER-K) effervescent tablet 40 mEq(Linked Group 3) 40 mEq, Oral, PRN, Starting on Sat01/24/22 at 2241, Until Discontinued, Per Potassium Replacement Protocol, Administer as alternative if patient unable to tolerate oral tablet. K Lab Replacement Action 3.1 to 3.5 40 mEq ORAL x 1 Under 3.1 Refer to IV replacement protocol Recheck K level in AM. Protocol not for use in patients with CrCl less than 30 mL/min. Do not chew or crush. Dissolve flavored tablets completely in 3 to 4 ounces of cold water; unflavored tablets may be dissolved in 3 to 4 ounces of cold juice. Patient to sip slowly over a 5 to 10 minute period. May further dilute if GI adverse effects occur. potassium chloride (KLOR-CON M) extended release tablet 40 mEq(Linked Group 3) 40 mEq, Oral, PRN, Starting on Sat01/24/22 at 2241, Until Discontinued, Potassium Replacement, May give oral solution if patient unable to tolerate tablet. K Lab Replacement Action 3.1-3.5 40 mEq ORAL x 1 2.7-3.0 Refer to IV replacement orders < 2.7 Refer to IV replacement orders Recheck K level in AM. Not for use in patients with CrCl less than 30 mL/min. potassium chloride 10 mEq/100 mL IVPB (Peripheral Line)(Linked Group 3) 10 mEq, IntraVENous, PRN, Starting on Sat01/24/22 at 2241, Until Discontinued, at 100 mL/hr, Potassium Replacement, K Lab Replacement Action 2.7-3.0 10 mEq IVPB x 6 doses (60 mEq Total) < 2.7 CALL PHYSICIAN and 10 mEq IVPB x 6 doses (60 mEq Total) Infuse at 10 mEq/hr Repeat Potassium lab 1 hour after final administration. Not for use in patients with CrCl less than 30 mL/min. sodium chloride flush 0.9 % injection 10 mL 10 mL, IntraVENous, PRN, Starting on Sat01/24/22 at 2240, Until Discontinued, Line Care, After every IV line use Linked Groups Order Group 1: acetaminophen (TYLENOL) tablet 650 mgJump to med 650 mg, Oral, EVERY 6 HOURS PRN, Starting on Sat01/24/22 at 2240, Until Discontinued, Pain Mild (1-3), Fever, For temp greater than 100.4 F (38 C)
Maximum dose of acetaminophen is 4000 mg from all sources in 24 hours.
Or acetaminophen (TYLENOL) suppository 650 mgJump to med 650 mg, Rectal, EVERY 6 HOURS PRN, Starting on Sat01/24/22 at 1, Until Discontinued, Pain Mild (1-3), Fever, For temp greater than 100.4 F (38 C)
Administer if oral route cannot be used.
Group 2: ondansetron (ZOFRAN-ODT) disintegrating tablet 4 mgJump to med 4 mg, Oral, EVERY 8 HOURS PRN, Starting on Sat01/24/22 at 2240, Until Discontinued, Nausea, Vomiting Or ondansetron (ZOFRAN) injection 4 mgJump to med 4 mg, IntraVENous, EVERY 6 HOURS PRN, Starting on Sat01/24/22 at 2240, Until Discontinued, Nausea, Vomiting
Administer if oral route cannot be used.
Group 3: potassium chloride (KLOR-CON M) extended release tablet 40 mEqJump to med 40 mEq, Oral, PRN, Starting on Sat01/24/22 at 2240, Until Discontinued, Potassium Replacement
May give oral solution if patient unable to tolerate tablet. K Lab Replacement Action 3.1-3.5 40 mEq ORAL x 1 & nbsp; 2.7-3.0 Refer to IV replacement orders < 2.7 Refer to IV replacement orders Recheck K level in AM. Not for use in patients with CrCl less than 30 mL/min.
Or potassium bicarb-citric acid (EFFER-K) effervescent tablet 40 mEqJump to med 40 mEq, Oral, PRN, Starting on Sat01/24/22 at 2241, Until Discontinued, Per Potassium Replacement Protocol
Administer as alternative if patient unable to tolerate oral tablet. K Lab Repla cemen t Action 3.1 to 3.5 40 mEq ORAL x 1 Under 3.1 Refer to IV replacement protocol Recheck K level in AM. Protocol not for use in patients with CrCl less than 30 mL/min. Do not chew or crush. Dissolve flavored tablets completely in 3 to 4 ounces of cold water; unflavored tablets may be dissolved in 3 to 4 ounces of cold juice. Patient to sip slowly over a 5 to 10 minute period. May further dilute if GI adverse effects occur.
Or potassium chloride 10 mEq/100 mL IVPB (Peripheral Line)Jump to med 10 mEq, IntraVENous, PRN, Starting on Sat01/24/22 at 2241, Until Discontinued, at 100 mL/hr, Potassium Replacement
K Lab Replacement Action 2.7-3.0 10 mEq IVPB x 6 doses (60 mEq Total) < 2.7 CALL PHYSICIAN and 10 mEq IVPB x 6 doses (60 mEq Total) Infuse at 10 mEq/hr Repeat Potassium lab 1 hour after final administration. Not for use in patients with CrCl less than 30 mL/min.
Scheduled Medication Order 03/19/2022 03/20/2022 03/21/2022 acyclovir (ZOVIRAX) tablet 400 mg 400 mg, Oral, EVERY EVENING, First dose on Sat03/20/22 at 1800, Until Discontinued, Antimicrobial Indications: Urinary Tract Infection, UTI duration of therapy: 3 days 1852 (Not Given - Provider: Carey Andrew RN - Reason: Medication not available) 1800 (Due) calcium carbonate (TUMS) chewable tablet 500 mg 500 mg, Oral, EVERY EVENING, First dose on Sat03/20/22 at 1800, Until Discontinued 1854 (Not Given - Provider: Carey Andrew RN - Reason: Patient/family refused) 1800 (Due) clopidogrel (PLAVIX) tablet 75 mg 75 mg, Oral, DAILY, First dose on Sat03/20/22 at 1630, Until Discontinued 1854 (Not Given - Provider: Carey Andrew RN - Reason: Medication not available) 1031 (Given - Provider: Alyson Soliz RN) dexamethasone (DECADRON) tablet 4 mg 4 mg, Oral, SEE ADMIN INSTRUCTIONS, Starting on Sat03/20/22 at 1614, Until Discontinued rivaroxaban (XARELTO) tablet 20 mg ANTICOAGULANT! Renal dose for NONVALVULAR A.FIB is 15 mg/day for CrCl 15-50 mL/min., 20 mg, Oral, DAILY, First dose on Sat03/20/22 at 1800, Until Discontinued, Indication of Use: A Fib/A Flutter, ANTICOAGULANT! Doses greater than 15 mg/day must be administered with food. 1854 (Given - Provider: Carey Andrew RN) 1800 (Due) sodium chloride flush 0.9 % injection 5-40 mL 5-40 mL, IntraVENous, EVERY 12 HOURS SCHEDULED (2 times per day), First dose on Sat03/20/22 at 2100, Until Discontinued, For Line Patency: Peripheral IV = 5 mL; Midline or Central Line = 10 mL/lumen. If following IV push medication, administer flush at same rate as the IV push. Flush volume is determined by type of infusion therapy being given. For non-viscous solutions use: Peripheral IV = 5 mL Midline or Central Line = 10 mL/lumen For viscous solutions (i.e. blood components, parenteral nutrition, contrast media, or after obtaining blood sample) use: Peripheral IV = 10 mL Midline or Central Line = 20 mL/lumen, PACU only 1945 (Given - Provider: Aura Roberson RN) 1058 (Not Given - Provider: Alyson Soliz RN - Reason: IV Fluid Infusing)2100 (Due) sodium chloride flush 0.9 % injection 5-40 mL 5-40 mL, IntraVENous, EVERY 12 HOURS SCHEDULED (2 times per day), First dose on Sat03/20/22 at 2100, Until Discontinued, For Line Patency: Peripheral IV = 5 mL; Midline or Central Line = 10 mL/lumen. If following IV push medication, administer flush at same rate as the IV push. Flush volume is determined by type of infusion therapy being given. For non-viscous solutions use: Peripheral IV = 5 mL Midline or Central Line = 10 mL/lumen For viscous solutions (i.e. blood components, parenteral nutrition, contrast media, or after obtaining blood sample) use: Peripheral IV = 10 mL Midline or Central Line = 20 mL/lumen, Recovery(Cath) 1945 (Not Given - Provider: Aura Roberson RN - Reason: Loss of IV access) 1058 (Not Given - Provider: Alyson Soliz RN - Reason: IV Fluid Infusing)2100 (Due) Continuous Medication Order 03/19/2022 03/20/2022 03/21/2022 0.9 % sodium chloride infusion IntraVENous, at 75 mL/hr, CONTINUOUS, Starting on Sat03/20/22 at 1145 1120 (New Bag - Provider: Trisha Watson RN) 0544 (New Bag - Provider: Aura Roberson RN)1344 (Stopped - Provider: Alyson Soliz RN) 0.9 % sodium chloride infusion IntraVENous, at 75 mL/hr, CONTINUOUS, Starting on Sat03/20/22 at 1630, Recovery(Cath) 1637 (New Bag - Provider: Carey Andrew, RN) 1342 (Stopped - Provider: Alyson Soliz RN) PRN Medication Order 03/19/2022 03/20/2022 03/21/2022 0.9 % sodium chloride infusion IntraVENous, at 5-250 mL/hr, PRN, if patient receiving piggyback infusions and maintenance fluids are not ordered OR KVO fluids to protect IV site / prevent frequent line interruptions/ long duration, Starting on Sat03/20/22 at 1614, For piggyback infusion, administer at same rate as piggyback for a total of 25 mL. Enter 25 mL into dose field and piggyback rate into rate field of order. If piggyback is infusing at a rate less than 100 mL/hr, enter 25 mL into dose field and 100 mL/hr into rate field of order. For KVO fluids, enter rate of 20 mL/hr or less into rate field of order., PACU only 0.9 % sodium chloride infusion IntraVENous, at 5-250 mL/hr, PRN, if patient receiving piggyback infusions and maintenance fluids are not ordered OR KVO fluids to protect IV site / prevent frequent line interruptions/ long duration, Starting on Sat03/20/22 at 1614, For piggyback infusion, administer at same rate as piggyback for a total of 25 mL. Enter 25 mL into dose field and piggyback rate into rate field of order. If piggyback is infusing at a rate less than 100 mL/hr, enter 25 mL into dose field and 100 mL/hr into rate field of order. For KVO fluids, enter rate of 20 mL/hr or less into rate field of order., Recovery(Cath) acetaminophen (TYLENOL) tablet 650 mg 650 mg, Oral, EVERY 4 HOURS PRN, Starting on Sat03/20/22 at 1614, Until Discontinued, Pain Mild (1-3), Fever, Fever >100.5 F (38 C), Maximum dose of acetaminophen is 4000 mg from all sources in 24 hours., Recovery(Cath) fentaNYL (SUBLIMAZE) injection 25 mcg 25 mcg, IntraVENous, EVERY 5 MIN PRN, 2 doses, Starting on Sat03/20/22 at 1614, Until Discontinued, Pain Moderate (4-6), For Phase I. If Phase II oral narcotics have been administered in the last 60 minutes, do not administer IV narcotics unless specifically approved by provider., PACU only labetalol (NORMODYNE;TRANDATE) injection 10 mg 10 mg, IntraVENous, EVERY 30 MIN PRN, 2 doses, Starting on Sat03/20/22 at 1614, Until Discontinued, High Blood Pressure, For SBP greater than 150 mmHG, Recovery(Cath) meclizine (ANTIVERT) tablet 25 mg 25 mg, Oral, 3 TIMES DAILY PRN, Starting on Sat03/20/22 at 1614, Until Discontinued, Dizziness oxybutynin (DITROPAN-XL) extended release tablet 5 mg 5 mg, Oral, DAILY PRN, Starting on Sat03/20/22 at 1614, Until Discontinued, bladder spasms, pang discomfort, Do not crush or break. sodium chloride flush 0.9 % injection 5-40 mL 5-40 mL, IntraVENous, PRN, Starting on Sat03/20/22 at 1614, Until Discontinued, Line Care, After every IV line use, For Line Patency: Peripheral IV = 5 mL; Midline or Central Line = 10 mL/lumen. If following IV push medication, administer flush at same rate as the IV push. Flush volume is determined by type of infusion therapy being given. For non-viscous solutions use: Peripheral IV = 5 mL Midline or Central Line = 10 mL/lumen For viscous solutions (i.e. blood components, parenteral nutrition, contrast media, or after obtaining blood sample) use: Peripheral IV = 10 mL Midline or Central Line = 20 mL/lumen, PACU only sodium chloride flush 0.9 % injection 5-40 mL 5-40 mL, IntraVENous, PRN, Starting on Sat03/20/22 at 1614, Until Discontinued, Line Care, After every IV line use, For Line Patency: Peripheral IV = 5 mL; Midline or Central Line = 10 mL/lumen. If following IV push medication, administer flush at same rate as the IV push. Flush volume is determined by type of infusion therapy being given. For non-viscous solutions use: Peripheral IV = 5 mL Midline or Central Line = 10 mL/lumen For viscous solutions (i.e. blood components, parenteral nutrition, contrast media, or after obtaining blood sample) use: Peripheral IV = 10 mL Midline or Central Line = 20 mL/lumen, Recovery(Cath) No Frequency Medication Order 03/19/2022 03/20/2022 03/21/2022 iopamidol (ISOVUE-370) 76 % injection 1 dose, Starting on Sat03/20/22 at 1251, Until Sat03/21/22 at 0059, Natividad Feliz R: cabinet override, Natividad Feliz R: cabinet override 1300 (Due) lidocaine 1 % injection 1 dose, Starting on Sat03/20/22 at 1251, Until Sat03/21/22 at 0059, Natividad Feliz R: cabinet override, Natividad Feliz R: cabinet override 1300 (Due) Care Teams (unrecognized sec tion and content) Platform Architect Relationship Specialty Start Date End Date Alexei Guzmán MD [address] [place] [address] PCP - General Family Medicine 03/08/21 Platform Architect Relationship Specialty Start Date End Date Alexei Guzmán MD [address] [place] [address] PCP - General Family Medicine 03/08/21 Platform Architect Relationship Specialty Start Date End Date Alexei Guzmán MD [address] [place] [id number] PCP - General Family Medicine 03/08/21 Platform Architect Relationship Specialty Start Date End Date Alexei Guzmán MD [address] [place] [address] PCP - General Family Practice 01/28/17 Favio Chaidez Referring Orthopedics 01/28/17 Allie Solares MD [address] [place] [address] Referring Hematology 09/01/21 Platform Architect Relationship Specialty Start Date End Date Alexei Guzmán MD [address] [facility] [place] [address] PCP - General Family Practice 01/28/17 Favio Chaidez Referring Orthopedics 01/28/17 09/30/21 Allie Solares MD [address] [address] Referring Hematology 09/01/21 Platform Architect Relationship Specialty Start Date End Date Alexei Guzmán MD [address] [place] [address] PCP - General Family Practice 01/28/17 Allie Solares MD [address] [place] [address] Referring Hematology 09/01/21 Platform Architect Relationship Specialty Start Date End Date Alexei Guzmán MD [address] [place] [address] PCP - General Family Practice 01/28/17 Allie Solares MD [address] [place] [address] Referring Hematology 09/01/21 Platform Architect Relationship Specialty Start Date End Date Alexei Guzmán MD [address] [facility] [place] [address] PCP - General Family Practice 01/28/17 Allie Solares MD [address] [facility] [address] [place] [address] Referring Hematology 09/01/21 Platform Architect Relationship Specialty Start Date End Date Alexei Guzmán MD [address] [facility] [place] [address] PCP - General Family Practice 01/28/17 Allie Solares MD [address] [address] Referring Hematology 09/01/21 Platform Architect Relationship Specialty Start Date End Date Alexei Guzmán MD [address] [facility] [place] [address] PCP - General Family Practice 01/28/17 Allie Solares MD [address] [place] [phone] Referring Hematology 09/01/21 Platform Architect Relationship Specialty Start Date End Date Alexei Guzmán MD [address] [facility] [place] [address] PCP - General Family Practice 01/28/17 Allie Solares MD [address] [place] [phone] Referring Hematology 09/01/21 Platform Architect Relationship Specialty Start Date End Date Alexei Guzmán MD [address] [facility] [place] [address] PCP - General Family Practice 01/28/17 Allie Solares MD [address] [address] Referring Hematology 09/01/21 Platform Architect Relationship Specialty Start Date End Date Alexei Guzmán MD [address] [facility] [place] [address] PCP - General Family Practice 01/28/17 Allie Solares MD [address] [address] Referring Hematology 09/01/21 Platform Architect Relationship Specialty Start Date End Date Alexei Guzmán MD [address] [facility] [place] [id number] PCP - General Family Practice 01/28/17 Allie Solares MD [address] [address] Referring Hematology 09/01/21 Platform Architect Relationship Specialty Start Date End Date Alexei Guzmán MD [address] [place] [facility] [phone] PCP - General Family Medicine 03/08/21 Platform Architect Relationship Specialty Start Date End Date Alexei Guzmán MD [address] [facility] [place] [address] PCP - General Family Practice 01/28/17 Allie Solares MD [address] [address] Referring Hematology 09/01/21 Platform Architect Relationship Specialty Start Date End Date Alexei Guzmán MD [address] [facility] [place] [phone] PCP - General Family Practice 01/28/17 Allie Solares MD [address] [address] Referring Hematology 09/01/21 Platform Architect Relationship Specialty Start Date End Date Alexei Guzmán MD [address] [facility] [place] [phone] PCP - General Family Practice 01/28/17 Allie Solares MD [address] [address] Referring Hematology 09/01/21 Platform Architect Relationship Specialty Start Date End Date Alexei Guzmán MD [address] [place] [facility] [address] PCP - General Family Medicine 03/08/21 Platform Architect Relationship Specialty Start Date End Date Alexei Guzmán MD [address] [facility] [address] PCP - General Family Practice 01/28/17 Allie Solares MD [address] [address] Referring Hematology 09/01/21 Platform Architect Relationship Specialty Start Date End Date Alexei Guzmán MD [address] [place] [facility] [address] PCP - General Family Medicine 03/08/21 Platform Architect Relationship Specialty Start Date End Date Alexei Guzmán MD [address] [place] [facility] [address] PCP - General Family Medicine 03/08/21 Platform Architect Relationship Specialty Start Date End Date Adair Noonan [address] [place] [address] PCP - General 01/25/22 Platform Architect Relationship Specialty Start Date End Date Adair Noonan [facility] [place] [address] PCP - General 01/25/22 Platform Architect Relationship Specialty Start Date End Date Alexei Guzmán MD [address] [facility] [place] [address] PCP - General Family Practice 01/28/17 Allie Solares MD [address] [address] Referring Hematology 09/01/21 Nikos Carmona [address] [place] [address] Referring Cardiology 02/16/22 Platform Architect Relationship Specialty Start Date End Date Alexei Guzmán MD [address] [facility] [place] [address] PCP - General Family Practice 01/28/17 Allie Solares MD [address] [address] Referring Hematology 09/01/21 Nikos Carmona [address] [phone] Referring Cardiology 02/16/22 Platform Architect Relationship Specialty Start Date End Date Alexei Guzmán MD [address] [place] [address] PCP - General Family Practice 01/28/17 Allie Solares MD [address] [address] [address] Referring Hematology 09/01/21 Nikos Carmona [address] [place] [address] Referring Cardiology 02/16/22 Platform Architect Relationship Specialty Start Date End Date Alexei Guzmán MD [address] [place] [address] PCP - General Family Practice 01/28/17 Allie Solares MD [address] [address] Referring Hematology 09/01/21 Nikos Carmona [address] [address] Referring Cardiology 02/16/22 Platform Architect Relationship Specialty Start Date End Date Alexei Guzmán MD [address] [place] [address] PCP - General Family Practice 01/28/17 Allie Solares MD [address] [address] Referring Hematology 09/01/21 Nikos Carmona [address] [address] Referring Cardiology 02/16/22 Platform Architect Relationship Specialty Start Date End Date Adair Noonan [address] [place] [address] PCP - General 01/25/22 Platform Architect Relationship Specialty Start Date End Date Adair Noonan [facility] [place] [address] PCP - General 01/25/22 Platform Architect Relationship Specialty Start Date End Date Alexei Guzmán MD [address] [facility] [place] [address] PCP - General Family Medicine 01/28/17 Allie Solares MD [address] [address] Referring Hematology 09/01/21 Nikos Carmona [address] [address] Referring Cardiology 02/16/22 Platform Architect Relationship Specialty Start Date End Date Alexei Guzmán MD [address] [facility] [place] [address] PCP - General Family Medicine 01/28/17 Allie Solares MD [address] [address] Referring Hematology 09/01/21 Nikos Carmona [address] [place] [phone] Referring Cardiology 02/16/22 Platform Architect Relationship Specialty Start Date End Date Alexei Guzmán MD [address] [facility] [place] [address] PCP - General Family Medicine 01/28/17 Allie Solares MD [address] [address] Referring Hematology 09/01/21 Nikos Carmona MD [address] [place] [address] Referring Cardiology 02/16/22 Platform Architect Relationship Specialty Start Date End Date Alexei Guzmán MD [address] [facility] [place] [address] PCP - General Family Medicine 01/28/17 Allie Solares MD [address] [address] Referring Hematology 09/01/21 Nikos Carmona MD [address] [place] [address] Referring Cardiology 02/16/22 Platform Architect Relationship Specialty Start Date End Date Alexei Guzmán MD [address] [facility] [place] [address] PCP - General Family Medicine 01/28/17 Allie Solares MD [address] [address] Referring Hematology 09/01/21 Nikos Carmona MD [address] [address] Referring Cardiology 02/16/22 Platform Architect Relationship Specialty Start Date End Date Alexei Guzmán MD [address] [facility] [place] [address] PCP - General Family Medicine 01/28/17 HaywardFavio [address] [facility] [place] [address] Referring Orthopedics 01/28/17 09/30/21 Allie Solares MD [address] [address] Referring Hematology 09/01/21 Nikos Carmona MD [address] [phone] Referring Cardiology 02/16/22 Platform Architect Relationship Specialty Start Date End Date Alexei Guzmán MD [address] [facility] [place] [address] PCP - General Family Medicine 01/28/17 Favio Chaidez [address] [facility] [place] [address] Referring Orthopedics 01/28/17 09/30/21 Allie Solares MD [address] [address] Referring Hematology 09/01/21 Nikos Carmona MD [address] [phone] Referring Cardiology 02/16/22 Platform Architect Relationship Specialty Start Date End Date Alexei Guzmán MD [address] [facility] [place] [address] PCP - General Family Medicine 01/28/17 Favio Chaidez [address] [facility] [place] [address] Referring Orthopedics 01/28/17 09/30/21 Allie Solares MD [address] [address] Referring Hematology 09/01/21 Nikos Carmona MD [address] [phone] Referring Cardiology 02/16/22 Platform Architect Relationship Specialty Start Date End Date Alexei Guzmán MD [address] [facility] [place] [address] PCP - General Family Medicine 01/28/17 Allie Solares MD [address] [address] Referring Hematology 09/01/21 Nikos Carmona MD [address] [address] Referring Cardiology 02/16/22 Platform Architect Relationship Specialty Start Date End Date Alexei Guzmán MD [address] [facility] [place] [address] PCP - General Family Medicine 01/28/17 Allie Solares MD [address] [address] Referring Hematology 09/01/21 Nikos Carmona MD [address] [place] [address] Referring Cardiology 02/16/22 Platform Architect Relationship Specialty Start Date End Date Alexei Guzmán MD [address] [facility] [place] [address] PCP - General Family Medicine 01/28/17 Allie Solares MD [address] [address] Referring Hematology 09/01/21 Nikos Carmona MD [address] [place] [address] Referring Cardiology 02/16/22 Platform Architect Relationship Specialty Start Date End Date Alexei Guzmán MD [address] [facility] [place] [address] PCP - General Family Medicine 01/28/17 Allie Solares MD 501 [facility] [address] [place] [address] Referring Hematology 09/01/21 Nikos Carmona MD [address] [place] [address] Referring Cardiology 02/16/22 Platform Architect Relationship Specialty Start Date End Date Adair Noonan [facility] [place] [address] PCP - General 01/25/22 Platform Architect Relationship Specialty Start Date End Date Alexei Guzmán MD [address] [facility] [place] [address] PCP - General Family Medicine 01/28/17 Allie Solares MD [address] [address] Referring Hematology 09/01/21 Nikos Carmona MD [address] [phone] Referring Cardiology 02/16/22 Platform Architect Relationship Specialty Start Date End Date Alexei Guzmán MD [address] [facility] [place] [address] PCP - General Family Medicine 01/28/17 Allie Solares MD [address] [address] Referring Hematology 09/01/21 Nikos Carmona MD [address] [address] Referring Cardiology 02/16/22 Platform Architect Relationship Specialty Start Date End Date Alexei Guzmán MD [address] [facility] [place] [address] PCP - General Family Medicine 01/28/17 Allie Solares MD [address] [address] Referring Hematology 09/01/21 Nikos Carmona MD [address] [place] [address] Referring Cardiology 02/16/22 Platform Architect Relationship Specialty Start Date End Date Alexei Guzmán MD [address] [facility] [place] [address] PCP - General Family Medicine 01/28/17 Allie Solares MD [address] [address] Referring Hematology 09/01/21 Nikos Carmona MD [address] [place] [address] Referring Cardiology 02/16/22 Platform Architect Relationship Specialty Start Date End Date Alexei Guzmán MD [address] [facility] [place] [address] PCP - General Family Medicine 01/28/17 Favio Chaidez [address] [facility] [place] [address] Referring Orthopedics 01/28/17 09/30/21 Allie Solares MD 501 [place] [address] Referring Hematology 09/01/21 Nikos Carmona MD [address] [place] [phone] Referring Cardiology 02/16/22 Platform Architect Relationship Specialty Start Date End Date Alexei Guzmán MD [address] [facility] [place] [address] PCP - General Family Medicine 01/28/17 Favio Chaidez [address] [facility] [address] Referring Orthopedics 01/28/17 09/30/21 Allie Solares MD [address] [place], [place] [address] Referring Hematology 09/01/21 Nikos Carmona MD [address] [place] [address] Referring Cardiology 02/16/22 Platform Architect Relationship Specialty Start Date End Date Alexei Guzmán MD [address] [facility] [place] [address] PCP - General Family Medicine 01/28/17 Allie Solares MD [address] [facility] [place] [address] Referring Hematology 09/01/21 Nikos Carmona MD [address] [place] [address] Referring Cardiology 02/16/22 Platform Architect Relationship Specialty Start Date End Date Alexei Guzmán MD [address] [facility] [place] [address] PCP - General Family Medicine 01/28/17 Allie Solares MD [address] [facility] [place] [address] Referring Hematology 09/01/21 Nikos Carmona MD [address] [facility] [address] [place] [address] Referring Cardiology 02/16/22 Platform Architect Relationship Specialty Start Date End Date Alexei Guzmán MD [address] [facility] [place] [address] PCP - General Family Medicine 01/28/17 Allie Solares MD [address] [facility] [place] [address] Referring Hematology 09/01/21 Nikos Carmona MD [address] [phone] Referring Cardiology 02/16/22 Platform Architect Relationship Specialty Start Date End Date Adair Noonan [address] [place] [address] PCP - General 01/25/22 Platform Architect Relationship Specialty Start Date End Date Alexei Guzmán MD [address] [facility] [place] [address] PCP - General Family Medicine 01/28/17 Allie Solares MD [address] [facility] [place] [address] Referring Hematology 09/01/21 Nikos Carmona MD [address] [place] [address] Referring Cardiology 02/16/22 Platform Architect Relationship Specialty Start Date End Date Alexei Guzmán MD [address] [facility] [place] [address] PCP - General Family Medicine 01/28/17 Allie Solares MD [address] [facility] [place] [address] Referring Hematology 09/01/21 Nikos Carmona MD [address] [place] [address] Referring Cardiology 02/16/22 Platform Architect Relationship Specialty Start Date End Date Alexei Guzmán MD [address] [place] [address] PCP - General Family Medicine 01/28/17 Allie Solares MD [address] [place] [address] Referring Hematology 09/01/21 Nikos Carmona MD [address] [facility] [address] [place] [address] Referring Cardiology 02/16/22 Platform Architect Relationship Specialty Start Date End Date Alexei Guzmán MD [address] [facility] [place] [address] PCP - General Family Medicine 01/28/17 Allie Solares MD [address] [facility] [place] [address] Referring Hematology 09/01/21 Nikos Carmona MD [address] [facility] [address] [place] [address] Referring Cardiology 02/16/22 Platform Architect Relationship Specialty Start Date End Date Alexei Guzmán MD [address] [place] [address] PCP - General Family Medicine 01/28/17 Allie Solares MD [address] [place] [address] Referring Hematology 09/01/21 Nikos Carmona MD [address] [phone] Referring Cardiology 02/16/22 Platform Architect Relationship Specialty Start Date End Date Alexei Guzmán MD [address] [facility] [place] [address] PCP - General Family Medicine 01/28/17 Allie Solares MD [address] [place] [address] Referring Hematology 09/01/21 Nikos Carmona MD [address] [phone] Referring Cardiology 02/16/22 Platform Architect Relationship Specialty Start Date End Date Alexei Guzmán MD [address] [place] [address] PCP - General Family Medicine 01/28/17 Allie Solares MD [address] [facility] [place] [address] Referring Hematology 09/01/21 Nikos Carmona MD [address] [phone] Referring Cardiology 02/16/22 Platform Architect Relationship Specialty Start Date End Date Alexei Guzmán MD [address] [facility] [place] [address] PCP - General Family Medicine 01/28/17 Allie Solares MD [address] [facility] [place] [address] Referring Hematology 09/01/21 Nikos Carmona MD [address] [phone] Referring Cardiology 02/16/22 Platform Architect Relationship Specialty Start Date End Date Alexei Guzmán MD [address] [place] [address] PCP - General Family Medicine 01/28/17 Allie Solares MD [address] [facility] [place] [address] Referring Hematology 09/01/21 Nikos Carmona MD [address] [phone] Referring Cardiology 02/16/22 Platform Architect Relationship Specialty Start Date End Date Alexei Guzmán MD [address] [facility] [place] [address] PCP - General Family Medicine 01/28/17 Allie Solares MD [address] [facility] [place] [address] Referring Hematology 09/01/21 Nikos Carmona MD [address] [address] Referring Cardiology 02/16/22 Platform Architect Relationship Specialty Start Date End Date Alexei Guzmán MD [address] [place] [address] PCP - General Family Medicine 01/28/17 Allie Solares MD [address] [place] [address] Referring Hematology 09/01/21 Nikos Carmona MD [address] [address] Referring Cardiology 02/16/22 Platform Architect Relationship Specialty Start Date End Date Alexei Guzmán MD [address] [place] [address] PCP - General Family Medicine 01/28/17 Allie Solares MD [address] [place] [address] Referring Hematology 09/01/21 Nikos Connell MD [address] [address] Referring Cardiology 02/16/22 Kanika Aquino, PINO [address] [facility] [place] [address] Specialty 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 Hematology/Oncology 05/14/23 David Molina MD [address] [facility] [place] [address] Physician Hematology/Oncology 05/14/23 Thi Valera, PA-C [address] [facility] [place] [address] Physician Heat [employer] Vent Aircraft Mechanic Hematology/Oncology 05/14/23 Platform Architect Relationship Specialty Start Date End Date Alexei Guzmán MD [address] [facility] [place] [address] PCP - General Family Medicine 01/28/17 Allie Solares MD [address] [facility] [place] [address] Referring Hematology 09/01/21 Nikos Connell MD [address] [address] Referring Cardiology 02/16/22 Kanika Aquino, PINO [address] [facility] [place] [address] Specialty 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 Hematology/Oncology 05/14/23 David Molina MD [address] [facility] [place] [address] Physician Hematology/Oncology 05/14/23 Thi Valera PA-C [address] [facility] [address] Physician Heat [employer] Vent Aircraft Mechanic Hematology/Oncology 05/14/23 Platform Architect Relationship Specialty Start Date End Date Alexei Guzmán MD [address] [facility] [place] [address] PCP - General Family Medicine 01/28/17 Allie Solares MD [address] [facility] [place] [address] Referring Hematology 09/01/21 Nikos Connell MD [address] [address] Referring Cardiology 02/16/22 Kanika Aquino RN [address] [facility] [address] Specialty 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 Hematology/Oncology 05/14/23 David Molina MD [address] [place] [address] Physician Hematology/Oncology 05/14/23 Thi Valera PA-C [address] [facility] [place] [address] Physician Heat [employer] Vent Aircraft Mechanic Hematology/Oncology 05/14/23 Platform Architect Relationship Specialty Start Date End Date Alexei Guzmán MD [address] [place] [address] PCP - General Family Medicine 01/28/17 Allie Solares MD [address] [place] [address] Referring Hematology 09/01/21 Nikos Connell MD [address] [address] Referring Cardiology 02/16/22 Kanika Aquino RN [address] [facility] [address] Specialty 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 Hematology/Oncology 05/14/23 David Molina MD [address] [place] [address] Physician Hematology/Oncology 05/14/23 Thi Valera PA-C [address] [facility] [place] [address] Physician Heat And Vent Aircraft Mechanic Hematology/Oncology 05/14/23 Platform Architect Relationship Specialty Start Date End Date Alexei Guzmán MD [address] [place] [address] PCP - General Family Medicine 01/28/17 Allie Solares MD [address] [place] [address] Referring Hematology 09/01/21 Nikos Connell MD [facility] [address] Referring Cardiology 02/16/22 Kanika Aquino, PINO [address] [facility] [address] [place], [facility] Specialty 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 Hematology/Oncology 05/14/23 David Molina MD [address] [facility] [place] [address] Physician Hematology/Oncology 05/14/23 Thi Valera PA-C [address] [facility] [place] [address] Physician Heat [employer] Mechanic Hematology/Oncology 05/14/23 Platform Architect Relationship Specialty Start Date End Date Alexei Guzmán MD [address] [place] [address] PCP - General Family Medicine 01/28/17 Allie Solares MD [address] [facility] [place] [address] Referring Hematology 09/01/21 Nikos Connell MD [address] [place] [address] Referring Cardiology 02/16/22 Kanika Aquino, RN [address] [facility] [place] [address] Specialty 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 Hematology/Oncology 05/14/23 David Molina MD [address] [facility] [place] [address] Physician Hematology/Oncology 05/14/23 Thi Valera PACassieC [address] [facility] [place] [address] Physician Heat And Vent Aircraft Mechanic Hematology/Oncology 05/14/23 Platform Architect Relationship Specialty Start Date End Date Alexei Guzmán MD [address] [facility] [place] [address] PCP - General Family Medicine 01/28/17 Allie Solares MD [address] [place] [address] Referring Hematology 09/01/21 Nikos Connell MD [address] [place] [address] Referring Cardiology 02/16/22 Kanika Aquino RN [address] [facility] [address] Specialty 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 Hematology/Oncology 05/14/23 David Molina MD [address] [facility] [place] [address] Physician Hematology/Oncology 05/14/23 Thi Valera PA-C [address] [facility] [place] [address] Physician Heat [employer] Vent Aircraft Mechanic Hematology/Oncology 05/14/23 Platform Architect Relationship Specialty Start Date End Date Alexei Guzmán MD [address] [place] [address] PCP - General Family Medicine 01/28/17 Allie Solares MD [address] [place] [address] Referring Hematology 09/01/21 Nikos Connell MD [address] [address] Referring Cardiology 02/16/22 Kanika Aquino, PINO [address] [facility] [place] [address] Specialty 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 Hematology/Oncology 05/14/23 David Molina MD 417 [facility] [place] [address] Physician Hematology/Oncology 05/14/23 Thi Valera PA-C [address] [facility] [place] [address] Physician Heat [employer] Vent Aircraft Mechanic Hematology/Oncology 05/14/23 Platform Architect Relationship Specialty Start Date End Date Alexei Guzmán MD [address] [place] [address] PCP - General Family Medicine 01/28/17 Allie Solares MD [address] [facility] [place] [address] Referring Hematology 09/01/21 Nikos Connell MD [address] [address] Referring Cardiology 02/16/22 Kanika Aquino, RN [address] [facility] [place] [address] Specialty 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 Hematology/Oncology 05/14/23 David Molina MD [address] [facility] [place] [address] Physician Hematology/Oncology 05/14/23 Thi Valera PACassieC [address] [facility] [place] [address] Physician Heat [employer] Vent Aircraft Mechanic Hematology/Oncology 05/14/23 Platform Architect Relationship Specialty Start Date End Date Alexei Guzmán MD [address] [facility] [place] [address] PCP - General Family Medicine 01/28/17 Allie Solares MD [address] [facility] [place] [address] Referring Hematology 09/01/21 Nikos Connell MD [address] [place] [address] Referring Cardiology 02/16/22 Kanika Aquino RN [address] [facility] [place] [address] Specialty 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 Hematology/Oncology 05/14/23 David Molina MD [address] [facility] [place] [address] Physician Hematology/Oncology 05/14/23 Thi Valera PA-C [address] [place] [address] [place] [address] Physician Heat [employer] Vent Aircraft Mechanic Hematology/Oncology 05/14/23 Platform Architect Relationship Specialty Start Date End Date Alexei Guzmán MD [address] [place] [address] PCP - General Family Medicine 01/28/17 Allie Solares MD [address] [place] [address] Referring Hematology 09/01/21 Nikos Connell MD [address] [place] [address] Referring Cardiology 02/16/22 Kanika Aquino RN [address] [facility] [place] [address] Specialty 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 Hematology/Oncology 05/14/23 David Molina MD 417 [facility] [place] [address] Physician Hematology/Oncology 05/14/23 Thi Valera PA-C [address] [facility] [place] [address] Physician Heat And Vent Aircraft Mechanic Hematology/Oncology 05/14/23 Platform Architect Relationship Specialty Start Date End Date Alexei Guzmán MD [address] [facility] [place] [address] PCP - General Family Medicine 01/28/17 Allie Solares MD [address] [facility] [place] [address] Referring Hematology 09/01/21 Nikos Connell MD [address] [facility] [address] [place] [address] Referring Cardiology 02/16/22 Kanika Aquino RN [address] [facility] [place] [address] Specialty 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 Hematology/Oncology 05/14/23 David Molina MD [address] [place] [address] [place] [address] Physician Hematology/Oncology 05/14/23 Thi Valera PA-C [address] [facility] [place] [address] Physician Heat [employer] Vent Aircraft Mechanic Hematology/Oncology 05/14/23 Team Status: Active Member Role Status Dates Adair Noonan DO Primary Care Provider Active Team Status: Inactive Member Role Status Dates Otto Do MD Attending Provider Active Adair Noonan DO Primary Care Provider Active Platform Architect Relationship Specialty Start Date End Date Alexei Guzmán MD [address] [facility] [place] [address] PCP - General Family Medicine 01/28/17 Allie Solares MD [address] [facility] [place] [address] Referring Hematology 09/01/21 Nikos Connell MD [address] [address] Referring Cardiology 02/16/22 Kanika Aquino RN [address] [facility] [address] Specialty 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 Hematology/Oncology 05/14/23 David Molina MD [address] [place] [address] Physician Hematology/Oncology 05/14/23 Thi Valera PA-C [address] [facility] [place] [address] Physician Heat [employer] Vent Aircraft Mechanic Hematology/Oncology 05/14/23 Platform Architect Relationship Specialty Start Date End Date Alexei Guzmán MD [address] [place] [address] PCP - General Family Medicine 01/28/17 Allie Solares MD [address] [place] [address] Referring Hematology 09/01/21 Nikos Connell MD [address] [address] Referring Cardiology 02/16/22 Kanika Aquino, PINO [address] [facility] [address] Specialty 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 Hematology/Oncology 05/14/23 David Molina MD [address] [place] [address] Physician Hematology/Oncology 05/14/23 Thi Valera PA-C [address] [facility] [place] [address] Physician [employer] Mechanic Hematology/Oncology 05/14/23 Platform Architect Relationship Specialty Start Date End Date Alexei Guzmán MD [address] [place] [address] PCP - General Family Medicine 01/28/17 Allie Solares MD [address] [place] [address] Referring Hematology 09/01/21 Nikos Connell MD [address] [place] [address] Referring Cardiology 02/16/22 Kanika Aquino RN [address] [facility] [place] [address] Specialty 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 Hematology/Oncology 05/14/23 David Molina MD [address] [facility] [place] [place] [address] Physician Hematology/Oncology 05/14/23 Thi Valera PA-C [address] [facility] [place] [address] Physician Heat And Vent Aircraft Mechanic Hematology/Oncology 05/14/23 Platform Architect Relationship Specialty Start Date End Date Alexei Guzmán MD [address] [place] [address] PCP - General Family Medicine 01/28/17 Allie Solares MD [address] [facility] [place] [address] Referring Hematology 09/01/21 Nikos Connell MD [address] [place] [address] Referring Cardiology 02/16/22 Kanika Aquino RN [address] [facility] [place] [address] Specialty 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 Hematology/Oncology 05/14/23 David Molina MD [address] [facility] [place] [address] Physician Hematology/Oncology 05/14/23 Thi Valera, PA-C [address] [facility] [place] [address] Physician Heat And Vent Aircraft Mechanic Hematology/Oncology 05/14/23 Platform Architect Relationship Specialty Start Date End Date Alexei Guzmán MD [address] [facility] [place] [address] PCP - General Family Medicine 01/28/17 Allie Solares MD [address] [facility] [place] [address] Referring Hematology 09/01/21 Nikos Connell MD [address] [place] [address] Referring Cardiology 02/16/22 Kanika Aquino RN [address] [facility] [place] [address] Specialty 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 Hematology/Oncology 05/14/23 David Molina MD [address] [facility] [place] [address] Physician Hematology/Oncology 05/14/23 Thi Valera PA-C [address] [facility] [place] [address] Physician Heat And Vent Aircraft Mechanic Hematology/Oncology 05/14/23 Platform Architect Relationship Specialty Start Date End Date Alexei Guzmán MD [address] [place] [address] PCP - General Family Medicine 01/28/17 Allie Solares MD [address] [place] [address] Referring Hematology 09/01/21 Nikos Connell MD [address] [address] Referring Cardiology 02/16/22 Kanika Aquino, PINO [address] [facility] [address] Specialty 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 Hematology/Oncology 05/14/23 David Molina MD [address] [facility] [place] [address] Physician Hematology/Oncology 05/14/23 Thi Valera PA-C [address] [facility] [place] [address] Physician Heat And Vent Aircraft Mechanic Hematology/Oncology 05/14/23 Platform Architect Relationship Specialty Start Date End Date Alexei Guzmán MD [address] [place] [address] PCP - General Family Medicine 01/28/17 Allie Solares MD [address] [facility] [place] [address] Referring Hematology 09/01/21 Nikos Connell MD [address] [place] [address] Referring Cardiology 02/16/22 Kanika Aquino RN [address] [facility] [place] [address] Specialty 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 Hematology/Oncology 05/14/23 aDvid Molina MD [address] [place], [place] [address]ry [facility] [place] [address] Physician Hematology/Oncology 05/14/23 Thi Valera PA-C [address] [facility] [place] [address] Physician Heat And Vent Aircraft Mechanic Hematology/Oncology 05/14/23 Platform Architect Relationship Specialty Start Date End Date Alexei Guzmán MD [address] [facility] [place] [address] PCP - General Family Medicine 01/28/17 Allie Solares MD [address] [facility] [place] [address] Referring Hematology 09/01/21 iNkos Connell MD [address] [place] [address] Referring Cardiology 02/16/22 Kanika Aquino RN [address] [facility] [place] [address] Specialty 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 Hematology/Oncology 05/14/23 David Molina MD [address] [facility] [place] [address] Physician Hematology/Oncology 05/14/23 Thi Valera PA-C [address] [facility] [place] [address] Physician Heat And Vent Aircraft Mechanic Hematology/Oncology 05/14/23 Platform Architect Relationship Specialty Start Date End Date Alexei Guzmán MD [address] [place] [phone] PCP - General Family Medicine 01/28/17 [place] [address] [place] [phone] Referring Hematology 09/01/21 Nikos Connell MD [address] [place] [address] Referring Cardiology 02/16/22 Kanika Aquino RN [address] [facility] [place] [address] Specialty 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 Hematology/Oncology 05/14/23 David Molina MD 417 [facility] [place] [address] Physician Hematology/Oncology 05/14/23 Thi Valera PA-C [address] [facility] [place] [address] Physician Heat And Vent Aircraft Mechanic Hematology/Oncology 05/14/23 Platform Architect Relationship Specialty Start Date End Date Alexei Guzmán MD [address] [facility] [place] [address] PCP - General Family Medicine 01/28/17 Allie Solares MD [address] [facility] [place] [address] Referring Hematology 09/01/21 Nikos Connell MD [address] [address] Referring Cardiology 02/16/22 Kanika Aquino RN [address] [place] [address] Specialty 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 Hematology/Oncology 05/14/23 David Molina MD [address] [place] [address] Physician Hematology/Oncology 05/14/23 Thi Valera PA-C [address] [place] [address] [place] [address] Physician Heat And Vent Aircraft Mechanic Hematology/Oncology 05/14/23 Platform Architect Relationship Specialty Start Date End Date Adair Noonan [address] [place] [address] PCP - General 01/25/22 Team Status: Inactive Member Role Status Dates Otto Do MD Attending Provider Active Sta rt: July 09, 2023 End: July 09, 2023 Adair Noonan DO Primary Care Provider Active Start: July 09, 2023 End: July 09, 2023 Team Status: Active Member Role Status Dates Adair Noonan DO Primary Care Provider Active Start: August 21, 2023 Alexei Guzmán MD Attending Provider Active St art: August 21, 2023 Team Status: Active Member Role Status Dates Adair Noonan DO Primary Care Provider Active Start: August 28, 2023 Alexei Guzmán MD Attending Provider Active St art: August 28, 2023 Team Status: Active Member Role Status Dates Adair Noonan DO Primary Care Provider Active Start: September 06, 2023 Alexei Guzmán MD Attending Provider Active St art: September 06, 2023 Team Status: Active Member Role Status Dates Adair Noonan DO Primary Care Provider Active Start: September 19, 2023 Alexei Guzmán MD Attending Provider Active St art: September 19, 2023 Team Status: Inactive Member Role Status Dates Adair Noonan DO Primary Care Provider Active Start: September 24, 2023 End: September 24, 2023 Skip Ocasio MD Attending Provider Activ e Start: September 24, 2023 End: September 24, 2023 Team Status: Active Member Role Status Dates Adair Noonan DO Primary Care Provider Active Start: September 24, 2023 Skip Ocasio MD Attending Provider Activ e Start: September 24, 2023 Platform Architect Relationship Specialty Start Date End Date Alexei Guzmán MD [address] [facility] [place] [address] PCP - General Family Medicine 01/28/17 Allie Solares MD [address] [facility] [place] [address] Referring Hematology 09/01/21 Nikos Connell MD [address] [address] Referring Cardiology 02/16/22 Kanika Aquino, RN [address] [facility] [place] [address] Specialty 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 Hematology/Oncology 05/14/23 David Molina MD [address] [place] [address] Physician Hematology/Oncology 05/14/23 Thi Valera PA-C [address] [place] [address] [place] [address] Physician Heat And Vent Aircraft Mechanic Hematology/Oncology 05/14/23 Platform Architect Relationship Specialty Start Date End Date Alexei Guzmán MD [address] [place] [phone] PCP - General Family Medicine 01/28/17 Allie Solares MD [address] [place] [address] Referring Hematology 09/01/21 Nikos Connell MD [address] [place] [address] Referring Cardiology 02/16/22 Kanika Aquino RN [address] [facility] [address] [place] [id number] Specialty 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 Hematology/Oncology 05/14/23 David Molina MD [address] [place], [place] [address] Physician Hematology/Oncology 05/14/23 Thi Valera PA-C [address] [place] [address] [place] [address] Physician Heat And Vent Aircraft Mechanic Hematology/Oncology 05/14/23 Platform Architect Relationship Specialty Start Date End Date Alexei Guzmán MD [address] [place] [address] PCP - General Family Medicine 01/28/17 Allie Solares MD [address] [place] [address] Referring Hematology 09/01/21 Nikos Connell MD [address] [address] Referring Cardiology 02/16/22 Kanika Aquino, RN [address] [facility] [place] [place] [address] Specialty 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 Hematology/Oncology 05/14/23 David Molina MD [address] [place] [address] [place] [address] Physician Hematology/Oncology 05/14/23 Thi Valera PA-C [address] [place] [address] [place] [address] Physician Heat And Vent Aircraft Mechanic Hematology/Oncology 05/14/23 Platform Architect Relationship Specialty Start Date End Date Alexei Guzmán MD [address] [place] [address] PCP - General Family Medicine 01/28/17 Allie Solares MD [address] [place] [address] Referring Hematology 09/01/21 Nikos Connell MD [address] [address] Referring Cardiology 02/16/22 Kanika Aquino, RN [address] [facility] [address] Specialty 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 Hematology/Oncology 05/14/23 David Molina MD [address] [place] [address] Physician Hematology/Oncology 05/14/23 Thi Valera PA-C [address] [facility] [place] [address] Physician Heat And Vent Aircraft Mechanic Hematology/Oncology 05/14/23 Platform Architect Relationship Specialty Start Date End Date Alexei Guzmán MD [address] [place] [address] PCP - General Family Medicine 01/28/17 Allie Solares MD [address] [place] [address] Referring Hematology 09/01/21 Nikos Connell MD [address] [address] Referring Cardiology 02/16/22 Kanika Aquino, PINO [address] [facility] [place] [address] Specialty 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 Hematology/Oncology 05/14/23 David Molina MD [address] [place] [address] [place] [address] Physician Hematology/Oncology 05/14/23 Thi Valera PA-C [address] [place] [address] [place] [address] Physician Heat And Vent Aircraft Mechanic Hematology/Oncology 05/14/23 Platform Architect Relationship Specialty Start Date End Date Alexei Guzmán MD [address] [facility] [place] [address] PCP - General Family Medicine 01/28/17 Allie Solares MD [address] [facility] [place] [address] Referring Hematology 09/01/21 Nikos Connell MD [address] [facility] [address] [place] [address] Referring Cardiology 02/16/22 Kanika Aquino RN [address] [facility] [place] [address] Specialty 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 Hematology/Oncology 05/14/23 David Molina MD [address] [place] [address] [place] [address] Physician Hematology/Oncology 05/14/23 Thi Valera PA-C [address] [facility] [place] [address] Physician Heat And Vent Aircraft Mechanic Hematology/Oncology 05/14/23 Team Status: Active Member Role Status Dates Skip Ocasio MD Bell Cleaner Active Adair Noonan DO Primary Care Provider Active Team Status: Active Member Role Status Dates Adair Noonan DO Primary Care Provider Active Start: October 30, 2023 David Molina MD Attending Provider Active St art: October 30, 2023 Team Status: Active Member Role Status Dates Adair Noonan DO Primary Care Provider Active Start: November 26, 2023 David Molina MD Attending Provider Active St art: November 26, 2023 Team Status: Active Member Role Status Dates Adair Noonan DO Primary Care Provider Active Start: December 24, 2023 Thi Valera PA-C Attending Provider Active Start: December 24, 2023 Team Status: Inactive Member Role Status Dates Adair Noonan DO Primary Care Provider Active Start: January 07, 2024 End: January 07, 2024 Alexei Guzmán MD Attending Provider Active St art: January 07, 2024 End: January 07, 2024 Platform Architect Relationship Specialty Start Date End Date Alexei uGzmán MD [address] [facility] [place] [address] PCP - General Family Medicine 01/28/17 Allie Solares MD [address] [facility] [place] [address] Referring Hematology 09/01/21 Nikos Connell MD [address] [facility] [address] [place] [address] Referring Cardiology 02/16/22 Kanika Aquino RN [address] [facility] [place] [address] Specialty 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 Hematology/Oncology 05/14/23 David Molina MD [address] [place] [address] [place] [address] Physician Hematology/Oncology 05/14/23 Thi Valera, PA-C [address] [facility] [place] [address] Physician Heat And Vent Aircraft Mechanic Hematology/Oncology 05/14/23 Platform Architect Relationship Specialty Start Date End Date Alexei Guzmán MD [address] [facility] [place] [address] PCP - General Family Medicine 01/28/17 Allie Solares MD [address] [facility] [place] [address] Referring Hematology 09/01/21 Nikos Connell MD [address] [address] Referring Cardiology 02/16/22 Kanika Aquino RN [address] [facility] [place] [address] Specialty 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 Hematology/Oncology 05/14/23 David Molina MD [address] [place] [address] Physician Hematology/Oncology 05/14/23 Thi Valera PA-C [address] [facility] [place] [address] Physician Heat And Vent Aircraft Mechanic Hematology/Oncology 05/14/23 Platform Architect Relationship Specialty Start Date End Date Alexei Guzmán MD [address] [facility] [place] [address] PCP - General Family Medicine 01/28/17 Allie Solares MD [address] [place] [address] Referring Hematology 09/01/21 Nikos Connell MD [address] [address] Referring Cardiology 02/16/22 Kanika Aquino, PINO [address] [facility] [address] Specialty 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 Hematology/Oncology 05/14/23 David Molina MD [address] [facility] [place] [address] Physician Hematology/Oncology 05/14/23 02/20/24 Thi Valera PA-C [address] [facility] [place] [address] Physician Heat And Vent Aircraft Mechanic Hematology/Oncology 05/14/23 Platform Architect Relationship Specialty Start Date End Date Alexei Guzmán MD [address] [place] [address] PCP - General Family Medicine 01/28/17 Allie Solares MD [address] [place] [address] Referring Hematology 09/01/21 Nikos Connell MD [address] [place] [address] Referring Cardiology 02/16/22 Kainka Aquino RN [address] [facility] [place] [address] Specialty 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 Hematology/Oncology 05/14/23 Thi Valera PA-C [address] [facility] [place] [address] Physician Heat And Vent Aircraft Mechanic Hematology/Oncology 05/14/23 Nelli Aguilar MD [address] [facility] [place] [address] Physician Hematology/Oncology 02/21/24 Platform Architect Relationship Specialty Start Date End Date Adair Noonan DO [facility] [place] [address] PCP - General 01/25/22 Platform Architect Relationship Specialty Start Date End Date Alexei Guzmán MD [address] [facility] [place] [phone] PCP - General Family Medicine 01/28/17 Allie Solares MD [address] [facility] [place] [address] Referring Hematology 09/01/21 Nikos Connell MD [address] [facility] [address] [place] [address] Referring Cardiology 02/16/22 Kanika Aquino RN [address] [facility] [place] [address] Specialty 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 Hematology/Oncology 05/14/23 David Molina MD [address] [place] [address] Physician Hematology/Oncology 05/14/23 02/20/24 Thi Valera PA-C [address] [place] [address] [place] [address] Physician Heat And Vent Aircraft Mechanic Hematology/Oncology 05/14/23 Platform Architect Relationship Specialty Start Date End Date Alexei Guzmán MD [address] [facility] [place] [address] PCP - General Family Medicine 01/28/17 Allie Solares MD [address] [facility] [place] [address] Referring Hematology 09/01/21 Nikos Connell MD [address] [address] Referring Cardiology 02/16/22 Platform Architect Relationship Specialty Start Date End Date Alexei Guzmán MD [address] [place] [address] PCP - General Family Medicine 01/28/17 Allie [place]ares MD [address] [place] [address] Referring Hematology 09/01/21 Nikos Connell MD [address] [address] Referring Cardiology 02/16/22 Platform Architect Relationship Specialty Start Date End Date Alexei Guzmán MD [address] [place] [address] PCP - General Family Medicine 01/28/17 Allie Solares MD [address] [place] [address] Referring Hematology 09/01/21 Team Status: Active Member Role Status Dates Adair Noonan DO Primary Care Provider Active Start: January 22, 2024 David Molina MD Attending Provider Active St art: January 22, 2024 Team Status: Active Member Role Status Dates Adair Noonan DO Primary Care Provider Active Start: February 20, 2024 Nelli Aguilar MD Attending Provider Active Start: February 20, 2024 Team Status: Inactive Member Role Status Dates Adair Noonan DO Primary Care Provider Active Start: March 16, 2024 End: March 29, 2024 Luis Ramon MD Admit Provider, Atte nding Provider Active Start: March 16, 2024 End: March 29, 2024 Suzan Drake , PINO Other Provider Active Star t: March 16, 2024 End: March 29, 2024 Laura Glass , PINO Other Provider Active Start : March 16, 2024 End: March 29, 2024 Sydney Mondragon , PINO Other Provider Active Star t: March 16, 2024 End: March 29, 2024 Katey Whaley , PINO Other Provider Active Start: S eptember 2023 End: March 29, 2024 Carolynn Catherine RN Other Provider Active Start: Se ptember 2023 End: March 29, 2024 Maximiliano Rhodes MD Other Provider Active Start: March 16, 2024 End: March 29, 2024 Abebe Hoang DO Other Provider Active Start : March 16, 2024 End: March 29, 2024 David Celeste MD Other Provider Active Start : March 16, 2024 End: March 29, 2024 [place] DO Other Provider Active Start: March 16, 2024 End: March 29, 2024 Rodolfo Galeano MD Other Provider Active Start: March 16, 2024 End: March 29, 2024 Anais Zurita MD Other Provider Active Start : March 16, 2024 End: March 29, 2024 Candido Estevez MD Other Provider Active Start: S eptember 2023 End: March 29, 2024 Jessica Guerrero APRN Other Provider Active Start: March 16, 2024 End: March 29, 2024 Melani Chu MD Other Provider Active Start: March 16, 2024 End: March 29, 2024 Sanjiv Galo MD Other Provider Active Start: S eptember 2023 End: March 29, 2024 Robert Barnes MD Other Provider Active Start: March 16, 2024 End: March 29, 2024 Amy Boogie MD Other Provider Active Start: March 16, 2024 End: March 29, 2024 Elliot Purvis DO Other Provider Active Start: March 16, 2024 End: March 29, 2024 Ethel Malin MD Other Provider Active Start: pt2023 End: March 29, 2024 Bobby Michael MD Other Provider Active Start: Mar End: March 29, 2024 Kaur Vazquez RECRUITMENT AND OUTREACH ASSISTANT-C Other Provider Active St art: March 16, 2024 End: March 29, 2024 Sherif Lux APRN Other Provider Active Star t: March 16, 2024 End: March 29, 2024 Arcenio Nguyen MD Other Provider Active Start: March 16, 2024 End: March 29, 2024 Mynor Hector MD Other Provider Active Start: pt2023 End: March 29, 2024 Geovany Stockton MD Other Provider Active Start: Mar End: March 29, 2024 Funmilayo Fernando MD Other Provider Active Star t: March 16, 2024 End: March 29, 2024 Enmanuel Bhatia MD Other Provider Active Start: S eptember 2023 End: March 29, 2024 Maggi Blankenship DO Other Provider Active Start: pt2023 End: March 29, 2024 Mata Millan DO Other Provider Active Start : March 16, 2024 End: March 29, 2024 Milagros Ardon APRN Other Provider Active Start: March 16, 2024 End: March 29, 2024 Ernesto Echols DO Other Provider Active Start: March 16, 2024 End: March 29, 2024 George Rossi MD Other Provider Active Sta rt: March 16, 2024 End: March 29, 2024 April Massey APRN Other Provider Active Start : March 16, 2024 End: March 29, 2024 Vikki Mckinney APRN Other Provider Active St art: March 16, 2024 End: March 29, 2024 Clementina Ch MD Other Provider Active Start: S eptember 2023 End: March 29, 2024 William Hough MD Other Provider Active S tart: March 16, 2024 End: March 29, 2024 Trevor Wright , DO Other Provider Active Star t: March 16, 2024 End: March 29, 2024 Jade Chin , Other Provider Active Start: March 16, 2024 End: March 29, 2024 Jose Stockton MD Other Provider Active Start: March 16, 2024 End: March 29, 2024 Gold Brannon MD Other Provider Active Start: March End: March 29, 2024 Britany Alberts APRN Other Provider Active Star t: March 16, 2024 End: March 29, 2024 David Rodriguez MD Other Provider Active Start: ep2023 End: March 29, 2024 Vj Nichols MD Other Provider Active Start: pt2023 End: March 29, 2024 Jeana Malcolm RN Other Provider Active Start: 2023 End: March 29, 2024 Team Status: Active Member Role Status Dates Adair Noonan DO Primary Care Provider Active Start: March 17, 2024 Luis Ramon MD Admit Provider, Atte nding Provider, Other Provider Active Start: March 17, 2024 Suzan Drake , PINO Other Provider Active Star t: March 17, 2024 Laura Glass , PINO Other Provider Active Start : March 17, 2024 Sydney Mondragon , PINO Other Provider Active Star t: March 17, 2024 Katey Whaley , PINO Other Provider Active Start: 2023 Carolynn Catherine , PINO Other Provider Active Start: pt2023 Maximiliano Rhodes MD Other Provider Active Start: March 17, 2024 Abebe Hoang DO Other Provider Active Start : March 17, 2024 David Celeste MD Other Provider Active Start : March 17, 2024 [place] DO Other Provider Active Start: March 17, 2024 Rodolfo Galeano MD Other Provider Active Start: March 17, 2024 Anais [place] MD Other Provider Active Start : March 17, 2024 Candido Estevez MD Other Provider Active Start: S eptember 2023 Jessica Guerrero APRN Other Provider Active Start: March 17, 2024 Melani Chu MD Other Provider Active Start: March 17, 2024 Sanjiv Galo MD Other Provider Active Start: 2023 Robert Barnes MD Other Provider Active Start: March 17, 2024 Amy Boogie MD Other Provider Active Start: March 17, 2024 Elliot Purvis DO Other Provider Active Start: March 17, 2024 Ethel Malin MD Other Provider Active Start: 2023 Bobby Michael MD Other Provider Active Start: Mar Kaur Vazquez NP-C Other Provider Active St art: March 17, 2024 Sherif Lux APRN Other Provider Active Star t: March 17, 2024 Arcenio Nguyen MD Other Provider Active Start: March 17, 2024 Mynor Hector MD Other Provider Active Start: 2023 Geovany Stockton MD Other Provider Active Start: Mar Funmilayo Fernando MD Other Provider Active Star t: March 17, 2024 Enmanuel Bhatia MD Other Provider Active Start: 2023 Maggi Blankenship DO Other Provider Active Start: 2023 Mata Millan DO Other Provider Active Start : March 17, 2024 Milagros Ardon APRN Other Provider Active Start: March 17, 2024 Ernesto Echols DO Other Provider Active Start: March 17, 2024 George Rossi MD Other Provider Active Sta rt: March 17, 2024 April Massey APRN Other Provider Active Start : March 17, 2024 Vikki Mckinney APRN Other Provider Active St art: March 17, 2024 Clementina Ch MD Other Provider Active Start: 2023 William Hough MD Other Provider Active S tart: March 17, 2024 Trevor Wright DO Other Provider Active Star t: March 17, 2024 Jade Chin DO Other Provider Active Start: March 17, 2024 Jose Stockton MD Other Provider Active Start: March 17, 2024 Gold Brannon MD Other Provider Active Start: March Britany Alberts APRN Other Provider Active Star t: March 17, 2024 David Rodriguez MD Other Provider Active Start: S eptember 2023 Vj Nichols MD Other Provider Active Start: Se ptember 2023 Jeana Malcolm , PINO Other Provider Active Start: S eptember 2023 Team Status: Active Member Role Status Dates Adair Noonan , DO Primary Care Provider Active Start: March 24, 2024 Luis Ramon MD Admit Provider, Atte nding Provider, Other Provider Active Start: March 24, 2024 Suzan Drake , PINO Other Provider Active Star t: March 24, 2024 Laura Glass , PINO Other Provider Active Start : March 24, 2024 Sydney Mondragon , PINO Other Provider Active Star t: March 24, 2024 Katey Whaley , PINO Other Provider Active Start: S eptember 2023 Carolynn Catherine , PINO Other Provider Active Start: Se ptember 2023 Maximiliano Rhodes MD Other Provider Active Start: March 24, 2024 Abebe Hoang DO Other Provider Active Start : March 24, 2024 David Celeste MD Other Provider Active Start : March 24, 2024 [place] DO Other Provider Active Start: March 24, 2024 Rodolfo Galeano MD Other Provider Active Start: March 24, 2024 Anais Zurita MD Other Provider Active Start : March 24, 2024 Candido Estevez MD Other Provider Active Start: S eptember 2023 Jessica Guerrero APRN Other Provider Active Start: March 24, 2024 Melani Chu MD Other Provider Active Start: March 24, 2024 Sanjiv Galo MD Other Provider Active Start: S eptember 2023 Robert Barnes MD Other Provider Active Start: March 24, 2024 Amy Boogie MD Other Provider Active Start: March 24, 2024 Elliot Purvis , Other Provider Active Start: March 24, 2024 Ethel Malin MD Other Provider Active Start: 2023 Bobby Michael MD Other Provider Active Start: Mar Kaur Vazquez , RECRUITMENT AND OUTREACH ASSISTANT-C Other Provider Active St art: March 24, 2024 Sherif Lux APRN Other Provider Active Star t: March 24, 2024 Arcenio Nguyen MD Other Provider Active Start: March 24, 2024 Mynor Hector MD Other Provider Active Start: 2023 Geovany Stockton MD Other Provider Active Start: Mar Funmilayo Fernando MD Other Provider Active Star t: March 24, 2024 Enmanuel Bhatia MD Other Provider Active Start: S eptember 2023 Maggi Blankenship DO Other Provider Active Start: 2023 Mata Millan , Other Provider Active Start : March 24, 2024 Milagros Ardon APRN Other Provider Active Start: March 24, 2024 Ernesto Echols DO Other Provider Active Start: March 24, 2024 George Rossi MD Other Provider Active Sta rt: March 24, 2024 April Massey APRN Other Provider Active Start : March 24, 2024 Vikki Mckinney APRN Other Provider Active St art: March 24, 2024 Clementina Ch MD Other Provider Active Start: S eptember 2023 William Hough MD Other Provider Active S tart: March 24, 2024 Trevor Wright , Other Provider Active Star t: March 24, 2024 Jade Chin DO Other Provider Active Start: March 24, 2024 Jose Stockton MD Other Provider Active Start: March 24, 2024 Gold Brannon MD Other Provider Active Start: March Britany Alberts APRN Other Provider Active Star t: March 24, 2024 David Rodriguez MD Other Provider Active Start: S eptember 2023 Vj Nichols MD Other Provider Active Start: Se ptember 2023 Jeana Malcolm RN Other Provider Active Start: [facility] Team Status: Inactive Member Role Status Dates Adair Noonan DO Primary Care Provider Active Start: March 31, 2024 End: March 31, 2024 Alexei Guzmán MD Attending Provider Active St art: March 31, 2024 End: March 31, 2024 Team Status: Inactive Member Role Status Dates Adair Noonan DO Primary Care Provider Active Start: March 29, 2024 End: March 29, 2024 Luis Ramon MD Attending Provider Active Star t: March 29, 2024 End: March 29, 2024 Platform Architect Relationship Specialty Start Date End Date Alexei Guzmán MD [address] [place] [id number] PCP - General Family Medicine 01/28/17 Allie Solares MD [address] [place] [id number] Referring Hematology 09/01/21 Nikos Connell MD [address] [place] [id number] Referring Cardiology 02/16/22 Kanika Aquino RN [address] [place], [facility] Specialty 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 Hematology/Oncology 05/14/23 Thi Valera, PA-C [facility] [place], [facility] Physician Heat And Vent Aircraft Mechanic Hematology/Oncology 05/14/23 Nelli Aguilar MD [facility] [place] [address] Physician Hematology/Oncology 02/21/24 Source Comments (unrecognize d section and content) In the event this informatio n is protected by the Federal Confidentiality of Alcohol and Drug Abuse Patient Records regulations: The Federal rules restrict any use of the information to criminally investigate or prosecute any alcohol or drug abuse patient.[facility] the event this information is protected by the Federal Confidentiality of Alcohol and Drug Abuse Patient Records regulations: The Federal rules restrict any use of the information to criminally investigate or prosecute any alcohol or drug abuse patient.[facility] CenterIn the event this information is protected by the Federal Confidentiality of Alcohol and Drug Abuse Patient Records regulations: The Federal rules restrict any use of the information to criminally investigate or prosecute any alcohol or drug abuse patient.[facility] CenterIn the event this information is protected by the Federal Confidentiality of Alcohol and Drug Abuse Patient Records regulations: The Federal rules restrict any use of the information to criminally investigate or prosecute any alcohol or drug abuse patient.[facility] CenterIn the event this information is protected by the Federal Confidentiality of Alcohol and Drug Abuse Patient Records regulations: The Federal rules restrict any use of the information to criminally investigate or prosecute any alcohol or drug abuse patient.[facility] CenterIn the event this information is protected by the Federal Confidentiality of Alcohol and Drug Abuse Patient Records regulations: The Federal rules restrict any use of the information to criminally investigate or prosecute any alcohol or drug abuse patient.[facility] CenterIn the event this information is protected by the Federal Confidentiality of Alcohol and Drug Abuse Patient Records regulations: The Federal rules restrict any use of the information to criminally investigate or prosecute any alcohol or drug abuse patient.[facility] CenterIn the event this information is protected by the Federal Confidentiality of Alcohol and Drug Abuse Patient Records regulations: The Federal rules restrict any use of the information to criminally investigate or prosecute any alcohol or drug abuse patient.[facility] CenterIn the event this information is protected by the Federal Confidentiality of Alcohol and Drug Abuse Patient Records regulations: The Federal rules restrict any use of the information to criminally investigate or prosecute any alcohol or drug abuse patient.[facility] CenterIn the event this information is protected by the Federal Confidentiality of Alcohol and Drug Abuse Patient Records regulations: The Federal rules restrict any use of the information to criminally investigate or prosecute any alcohol or drug abuse patient.[facility] CenterIn the event this information is protected by the Federal Confidentiality of Alcohol and Drug Abuse Patient Records regulations: The Federal rules restrict any use of the information to criminally investigate or prosecute any alcohol or drug abuse patient.[facility] CenterIn the event this information is protected by the Federal Confidentiality of Alcohol and Drug Abuse Patient Records regulations: The Federal rules restrict any use of the information to criminally investigate or prosecute any alcohol or drug abuse patient.[facility] CenterIn the event this information is protected by the Federal Confidentiality of Alcohol and Drug Abuse Patient Records regulations: The Federal rules restrict any use of the information to criminally investigate or prosecute any alcohol or drug abuse patient.[facility] CenterIn the event this information is protected by the Federal Confidentiality of Alcohol and Drug Abuse Patient Records regulations: The Federal rules restrict any use of the information to criminally investigate or prosecute any alcohol or drug abuse patient.[facility] CenterIn the event this information is protected by the Federal Confidentiality of Alcohol and Drug Abuse Patient Records regulations: The Federal rules restrict any use of the information to criminally investigate or prosecute any alcohol or drug abuse patient.[facility] CenterIn the event this information is protected by the Federal Confidentiality of Alcohol and Drug Abuse Patient Records regulations: The Federal rules restrict any use of the information to criminally investigate or prosecute any alcohol or drug abuse patient.[facility] CenterIn the event this information is protected by the Federal Confidentiality of Alcohol and Drug Abuse Patient Records regulations: The Federal rules restrict any use of the information to criminally investigate or prosecute any alcohol or drug abuse patient.[facility] CenterIn the event this information is protected by the Federal Confidentiality of Alcohol and Drug Abuse Patient Records regulations: The Federal rules restrict any use of the information to criminally investigate or prosecute any alcohol or drug abuse patient.[facility] CenterIn the event this information is protected by the Federal Confidentiality of Alcohol and Drug Abuse Patient Records regulations: The Federal rules restrict any use of the information to criminally investigate or prosecute any alcohol or drug abuse patient.[facility] CenterIn the event this information is protected by the Federal Confidentiality of Alcohol and Drug Abuse Patient Records regulations: The Federal rules restrict any use of the information to criminally investigate or prosecute any alcohol or drug abuse patient.[facility] CenterIn the event this information is protected by the Federal Confidentiality of Alcohol and Drug Abuse Patient Records regulations: The Federal rules restrict any use of the information to criminally investigate or prosecute any alcohol or drug abuse patient.[facility] CenterIn the event this information is protected by the Federal Confidentiality of Alcohol and Drug Abuse Patient Records regulations: The Federal rules restrict any use of the information to criminally investigate or prosecute any alcohol or drug abuse patient.[facility] CenterIn the event this information is protected by the Federal Confidentiality of Alcohol and Drug Abuse Patient Records regulations: The Federal rules restrict any use of the information to criminally investigate or prosecute any alcohol or drug abuse patient.[facility] CenterIn the event this information is protected by the Federal Confidentiality of Alcohol and Drug Abuse Patient Records regulations: The Federal rules restrict any use of the information to criminally investigate or prosecute any alcohol or drug abuse patient.[facility] CenterIn the event this information is protected by the Federal Confidentiality of Alcohol and Drug Abuse Patient Records regulations: The Federal rules restrict any use of the information to criminally investigate or prosecute any alcohol or drug abuse patient.[facility] CenterIn the event this information is protected by the Federal Confidentiality of Alcohol and Drug Abuse Patient Records regulations: The Federal rules restrict any use of the information to criminally investigate or prosecute any alcohol or drug abuse patient.[facility] CenterIn the event this information is protected by the Federal Confidentiality of Alcohol and Drug Abuse Patient Records regulations: The Federal rules restrict any use of the information to criminally investigate or prosecute any alcohol or drug abuse patient.[facility] CenterIn the event this information is protected by the Federal Confidentiality of Alcohol and Drug Abuse Patient Records regulations: The Federal rules restrict any use of the information to criminally investigate or prosecute any alcohol or drug abuse patient.[facility] CenterIn the event this information is protected by the Federal Confidentiality of Alcohol and Drug Abuse Patient Records regulations: The Federal rules restrict any use of the information to criminally investigate or prosecute any alcohol or drug abuse patient.[facility] CenterIn the event this information is protected by the Federal Confidentiality of Alcohol and Drug Abuse Patient Records regulations: The Federal rules restrict any use of the information to criminally investigate or prosecute any alcohol or drug abuse patient.[facility] CenterIn the event this information is protected by the Federal Confidentiality of Alcohol and Drug Abuse Patient Records regulations: The Federal rules restrict any use of the information to criminally investigate or prosecute any alcohol or drug abuse patient.[facility] CenterIn the event this information is protected by the Federal Confidentiality of Alcohol and Drug Abuse Patient Records regulations: The Federal rules restrict any use of the information to criminally investigate or prosecute any alcohol or drug abuse patient.[facility] CenterIn the event this information is protected by the Federal Confidentiality of Alcohol and Drug Abuse Patient Records regulations: The Federal rules restrict any use of the information to criminally investigate or prosecute any alcohol or drug abuse patient.[facility] CenterIn the event this information is protected by the Federal Confidentiality of Alcohol and Drug Abuse Patient Records regulations: The Federal rules restrict any use of the information to criminally investigate or prosecute any alcohol or drug abuse patient.[facility] CenterIn the event this information is protected by the Federal Confidentiality of Alcohol and Drug Abuse Patient Records regulations: The Federal rules restrict any use of the information to criminally investigate or prosecute any alcohol or drug abuse patient.[facility] CenterIn the event this information is protected by the Federal Confidentiality of Alcohol and Drug Abuse Patient Records regulations: The Federal rules restrict any use of the information to criminally investigate or prosecute any alcohol or drug abuse patient.[facility] CenterIn the event this information is protected by the Federal Confidentiality of Alcohol and Drug Abuse Patient Records regulations: The Federal rules restrict any use of the information to criminally investigate or prosecute any alcohol or drug abuse patient.[facility] CenterIn the event this information is protected by the Federal Confidentiality of Alcohol and Drug Abuse Patient Records regulations: The Federal rules restrict any use of the information to criminally investigate or prosecute any alcohol or drug abuse patient.[facility] CenterIn the event this information is protected by the Federal Confidentiality of Alcohol and Drug Abuse Patient Records regulations: The Federal rules restrict any use of the information to criminally investigate or prosecute any alcohol or drug abuse patient.[facility] CenterIn the event this information is protected by the Federal Confidentiality of Alcohol and Drug Abuse Patient Records regulations: The Federal rules restrict any use of the information to criminally investigate or prosecute any alcohol or drug abuse patient.[facility] CenterIn the event this information is protected by the Federal Confidentiality of Alcohol and Drug Abuse Patient Records regulations: The Federal rules restrict any use of the information to criminally investigate or prosecute any alcohol or drug abuse patient.[facility] CenterIn the event this information is protected by the Federal Confidentiality of Alcohol and Drug Abuse Patient Records regulations: The Federal rules restrict any use of the information to criminally investigate or prosecute any alcohol or drug abuse patient.[facility] CenterIn the event this information is protected by the Federal Confidentiality of Alcohol and Drug Abuse Patient Records regulations: The Federal rules restrict any use of the information to criminally investigate or prosecute any alcohol or drug abuse patient.[facility] CenterIn the event this information is protected by the Federal Confidentiality of Alcohol and Drug Abuse Patient Records regulations: The Federal rules restrict any use of the information to criminally investigate or prosecute any alcohol or drug abuse patient.[facility] CenterIn the event this information is protected by the Federal Confidentiality of Alcohol and Drug Abuse Patient Records regulations: The Federal rules restrict any use of the information to criminally investigate or prosecute any alcohol or drug abuse patient.[facility] CenterIn the event this information is protected by the Federal Confidentiality of Alcohol and Drug Abuse Patient Records regulations: The Federal rules restrict any use of the information to criminally investigate or prosecute any alcohol or drug abuse patient.[facility] ClinicIn the event this information is protected by the Federal Confidentiality of Alcohol and Drug Abuse Patient Records regulations: The Federal rules restrict any use of the information to criminally investigate or prosecute any alcohol or drug abuse patient.[facility] CenterIn the event this information is protected by the Federal Confidentiality of Alcohol and Drug Abuse Patient Records regulations: The Federal rules restrict any use of the information to criminally investigate or prosecute any alcohol or drug abuse patient.[facility] CenterIn the event this information is protected by the Federal Confidentiality of Alcohol and Drug Abuse Patient Records regulations: The Federal rules restrict any use of the information to criminally investigate or prosecute any alcohol or drug abuse patient.[facility] CenterIn the event this information is protected by the Federal Confidentiality of Alcohol and Drug Abuse Patient Records regulations: The Federal rules restrict any use of the information to criminally investigate or prosecute any alcohol or drug abuse patient.[facility] CenterIn the event this information is protected by the Federal Confidentiality of Alcohol and Drug Abuse Patient Records regulations: The Federal rules restrict any use of the information to criminally investigate or prosecute any alcohol or drug abuse patient.[facility] CenterIn the event this information is protected by the Federal Confidentiality of Alcohol and Drug Abuse Patient Records regulations: The Federal rules restrict any use of the information to criminally investigate or prosecute any alcohol or drug abuse patient.[facility] CenterIn the event this information is protected by the Federal Confidentiality of Alcohol and Drug Abuse Patient Records regulations: The Federal rules restrict any use of the information to criminally investigate or prosecute any alcohol or drug abuse patient.[facility] CenterIn the event this information is protected by the Federal Confidentiality of Alcohol and Drug Abuse Patient Records regulations: The Federal rules restrict any use of the information to criminally investigate or prosecute any alcohol or drug abuse patient.[facility] CenterIn the event this information is protected by the Federal Confidentiality of Alcohol and Drug Abuse Patient Records regulations: The Federal rules restrict any use of the information to criminally investigate or prosecute any alcohol or drug abuse patient.[facility] CenterIn the event this information is protected by the Federal Confidentiality of Alcohol and Drug Abuse Patient Records regulations: The Federal rules restrict any use of the information to criminally investigate or prosecute any alcohol or drug abuse patient.[facility] CenterIn the event this information is protected by the Federal Confidentiality of Alcohol and Drug Abuse Patient Records regulations: The Federal rules restrict any use of the information to criminally investigate or prosecute any alcohol or drug abuse patient.[facility] CenterIn the event this information is protected by the Federal Confidentiality of Alcohol and Drug Abuse Patient Records regulations: The Federal rules restrict any use of the information to criminally investigate or prosecute any alcohol or drug abuse patient.[facility] CenterIn the event this information is protected by the Federal Confidentiality of Alcohol and Drug Abuse Patient Records regulations: The Federal rules restrict any use of the information to criminally investigate or prosecute any alcohol or drug abuse patient.[facility] CenterIn the event this information is protected by the Federal Confidentiality of Alcohol and Drug Abuse Patient Records regulations: The Federal rules restrict any use of the information to criminally investigate or prosecute any alcohol or drug abuse patient.[facility] CenterIn the event this information is protected by the Federal Confidentiality of Alcohol and Drug Abuse Patient Records regulations: The Federal rules restrict any use of the information to criminally investigate or prosecute any alcohol or drug abuse patient.[facility] CenterIn the event this information is protected by the Federal Confidentiality of Alcohol and Drug Abuse Patient Records regulations: The Federal rules restrict any use of the information to criminally investigate or prosecute any alcohol or drug abuse patient.[facility] CenterIn the event this information is protected by the Federal Confidentiality of Alcohol and Drug Abuse Patient Records regulations: The Federal rules restrict any use of the information to criminally investigate or prosecute any alcohol or drug abuse patient.[facility] CenterIn the event this information is protected by the Federal Confidentiality of Alcohol and Drug Abuse Patient Records regulations: The Federal rules restrict any use of the information to criminally investigate or prosecute any alcohol or drug abuse patient.[facility] CenterIn the event this information is protected by the Federal Confidentiality of Alcohol and Drug Abuse Patient Records regulations: The Federal rules restrict any use of the information to criminally investigate or prosecute any alcohol or drug abuse patient.[facility] CenterIn the event this information is protected by the Federal Confidentiality of Alcohol and Drug Abuse Patient Records regulations: The Federal rules restrict any use of the information to criminally investigate or prosecute any alcohol or drug abuse patient.[facility] CenterIn the event this information is protected by the Federal Confidentiality of Alcohol and Drug Abuse Patient Records regulations: The Federal rules restrict any use of the information to criminally investigate or prosecute any alcohol or drug abuse patient.[facility] CenterIn the event this information is protected by the Federal Confidentiality of Alcohol and Drug Abuse Patient Records regulations: The Federal rules restrict any use of the information to criminally investigate or prosecute any alcohol or drug abuse patient.[facility] CenterIn the event this information is protected by the Federal Confidentiality of Alcohol and Drug Abuse Patient Records regulations: The Federal rules restrict any use of the information to criminally investigate or prosecute any alcohol or drug abuse patient.[facility] CenterIn the event this information is protected by the Federal Confidentiality of Alcohol and Drug Abuse Patient Records regulations: The Federal rules restrict any use of the information to criminally investigate or prosecute any alcohol or drug abuse patient.[facility] CenterIn the event this information is protected by the Federal Confidentiality of Alcohol and Drug Abuse Patient Records regulations: The Federal rules restrict any use of the information to criminally investigate or prosecute any alcohol or drug abuse patient.[facility] CenterIn the event this information is protected by the Federal Confidentiality of Alcohol and Drug Abuse Patient Records regulations: The Federal rules restrict any use of the information to criminally investigate or prosecute any alcohol or drug abuse patient.[facility] CenterIn the event this information is protected by the Federal Confidentiality of Alcohol and Drug Abuse Patient Records regulations: The Federal rules restrict any use of the information to criminally investigate or prosecute any alcohol or drug abuse patient.[facility] CenterIn the event this information is protected by the Federal Confidentiality of Alcohol and Drug Abuse Patient Records regulations: The Federal rules restrict any use of the information to criminally investigate or prosecute any alcohol or drug abuse patient.[facility] CenterIn the event this information is protected by the Federal Confidentiality of Alcohol and Drug Abuse Patient Records regulations: The Federal rules restrict any use of the information to criminally investigate or prosecute any alcohol or drug abuse patient.[facility] CenterIn the event this information is protected by the Federal Confidentiality of Alcohol and Drug Abuse Patient Records regulations: The Federal rules restrict any use of the information to criminally investigate or prosecute any alcohol or drug abuse patient.[facility] CenterIn the event this information is protected by the Federal Confidentiality of Alcohol and Drug Abuse Patient Records regulations: The Federal rules restrict any use of the information to criminally investigate or prosecute any alcohol or drug abuse patient.[facility] CenterIn the event this information is protected by the Federal Confidentiality of Alcohol and Drug Abuse Patient Records regulations: The Federal rules restrict any use of the information to criminally investigate or prosecute any alcohol or drug abuse patient.[facility] CenterIn the event this information is protected by the Federal Confidentiality of Alcohol and Drug Abuse Patient Records regulations: The Federal rules restrict any use of the information to criminally investigate or prosecute any alcohol or drug abuse patient.[facility] CenterIn the event this information is protected by the Federal Confidentiality of Alcohol and Drug Abuse Patient Records regulations: The Federal rules restrict any use of the information to criminally investigate or prosecute any alcohol or drug abuse patient.[facility] CenterIn the event this information is protected by the Federal Confidentiality of Alcohol and Drug Abuse Patient Records regulations: The Federal rules restrict any use of the information to criminally investigate or prosecute any alcohol or drug abuse patient.[facility] CenterIn the event this information is protected by the Federal Confidentiality of Alcohol and Drug Abuse Patient Records regulations: The Federal rules restrict any use of the information to criminally investigate or prosecute any alcohol or drug abuse patient.[facility] CenterIn the event this information is protected by the Federal Confidentiality of Alcohol and Drug Abuse Patient Records regulations: The Federal rules restrict any use of the information to criminally investigate or prosecute any alcohol or drug abuse patient.[facility] CenterIn the event this information is protected by the Federal Confidentiality of Alcohol and Drug Abuse Patient Records regulations: The Federal rules restrict any use of the information to criminally investigate or prosecute any alcohol or drug abuse patient.[facility] CenterIn the event this information is protected by the Federal Confidentiality of Alcohol and Drug Abuse Patient Records regulations: The Federal rules restrict any use of the information to criminally investigate or prosecute any alcohol or drug abuse patient.[facility] CenterIn the event this information is protected by the Federal Confidentiality of Alcohol and Drug Abuse Patient Records regulations: The Federal rules restrict any use of the information to criminally investigate or prosecute any alcohol or drug abuse patient.[facility] CenterIn the event this information is protected by the Federal Confidentiality of Alcohol and Drug Abuse Patient Records regulations: The Federal rules restrict any use of the information to criminally investigate or prosecute any alcohol or drug abuse patient.[facility] CenterIn the event this information is protected by the Federal Confidentiality of Alcohol and Drug Abuse Patient Records regulations: The Federal rules restrict any use of the information to criminally investigate or prosecute any alcohol or drug abuse patient.[facility] CenterIn the event this information is protected by the Federal Confidentiality of Alcohol and Drug Abuse Patient Records regulations: The Federal rules restrict any use of the information to criminally investigate or prosecute any alcohol or drug abuse patient.[facility] CenterIn the event this information is protected by the Federal Confidentiality of Alcohol and Drug Abuse Patient Records regulations: The Federal rules restrict any use of the information to criminally investigate or prosecute any alcohol or drug abuse patient.[facility] CenterIn the event this information is protected by the Federal Confidentiality of Alcohol and Drug Abuse Patient Records regulations: The Federal rules restrict any use of the information to criminally investigate or prosecute any alcohol or drug abuse patient.[facility] CenterIn the event this information is protected by the Federal Confidentiality of Alcohol and Drug Abuse Patient Records regulations: The Federal rules restrict any use of the information to criminally investigate or prosecute any alcohol or drug abuse patient.[facility] CenterIn the event this information is protected by the Federal Confidentiality of Alcohol and Drug Abuse Patient Records regulations: The Federal rules restrict any use of the information to criminally investigate or prosecute any alcohol or drug abuse patient.[facility] CenterIn the event this information is protected by the Federal Confidentiality of Alcohol and Drug Abuse Patient Records regulations: The Federal rules restrict any use of the information to criminally investigate or prosecute any alcohol or drug abuse patient.[facility] CenterIn the event this information is protected by the Federal Confidentiality of Alcohol and Drug Abuse Patient Records regulations: The Federal rules restrict any use of the information to criminally investigate or prosecute any alcohol or drug abuse patient.[facility] CenterIn the event this information is protected by the Federal Confidentiality of Alcohol and Drug Abuse Patient Records regulations: The Federal rules restrict any use of the information to criminally investigate or prosecute any alcohol or drug abuse patient.[facility]In the event this information is protected by the Federal Confidentiality of Alcohol and Drug Abuse Patient Records regulations: The Federal rules restrict any use of the information to criminally investigate or prosecute any alcohol or drug abuse patient.[facility] CenterIn the event this information is protected by the Federal Confidentiality of Alcohol and Drug Abuse Patient Records regulations: The Federal rules restrict any use of the information to criminally investigate or prosecute any alcohol or drug abuse patient.[facility] CenterIn the event this information is protected by the Federal Confidentiality of Alcohol and Drug Abuse Patient Records regulations: The Federal rules restrict any use of the information to criminally investigate or prosecute any alcohol or drug abuse patient.[facility] CenterIn the event this information is protected by the Federal Confidentiality of Alcohol and Drug Abuse Patient Records regulations: The Federal rules restrict any use of the information to criminally investigate or prosecute any alcohol or drug abuse patient.[facility] CenterIn the event this information is protected by the Federal Confidentiality of Alcohol and Drug Abuse Patient Records regulations: The Federal rules restrict any use of the information to criminally investigate or prosecute any alcohol or drug abuse patient.[facility] CenterIn the event this information is protected by the Federal Confidentiality of Alcohol and Drug Abuse Patient Records regulations: The Federal rules restrict any use of the information to criminally investigate or prosecute any alcohol or drug abuse patient.[facility] CenterIn the event this information is protected by the Federal Confidentiality of Alcohol and Drug Abuse Patient Records regulations: The Federal rules restrict any use of the information to criminally investigate or prosecute any alcohol or drug abuse patient.[facility] CenterIn the event this information is protected by the Federal Confidentiality of Alcohol and Drug Abuse Patient Records regulations: The Federal rules restrict any use of the information to criminally investigate or prosecute any alcohol or drug abuse patient.[facility] CenterIn the event this information is protected by the Federal Confidentiality of Alcohol and Drug Abuse Patient Records regulations: The Federal rules restrict any use of the information to criminally investigate or prosecute any alcohol or drug abuse patient.[facility] CenterIn the event this information is protected by the Federal Confidentiality of Alcohol and Drug Abuse Patient Records regulations: The Federal rules restrict any use of the information to criminally investigate or prosecute any alcohol or drug abuse patient.[facility] CenterIn the event this information is protected by the Federal Confidentiality of Alcohol and Drug Abuse Patient Records regulations: The Federal rules restrict any use of the information to criminally investigate or prosecute any alcohol or drug abuse patient.[facility] CenterIn the event this information is protected by the Federal Confidentiality of Alcohol and Drug Abuse Patient Records regulations: The Federal rules restrict any use of the information to criminally investigate or prosecute any alcohol or drug abuse patient.[facility]In the event this information is protected by the Federal Confidentiality of Alcohol and Drug Abuse Patient Records regulations: The Federal rules restrict any use of the information to criminally investigate or prosecute any alcohol or drug abuse patient.[facility] CenterIn the event this information is protected by the Federal Confidentiality of Alcohol and Drug Abuse Patient Records regulations: The Federal rules restrict any use of the information to criminally investigate or prosecute any alcohol or drug abuse patient.[facility]In the event this information is protected by the Federal Confidentiality of Alcohol and Drug Abuse Patient Records regulations: The Federal rules restrict any use of the information to criminally investigate or prosecute any alcohol or drug abuse patient.[facility]In the event this information is protected by the Federal Confidentiality of Alcohol and Drug Abuse Patient Records regulations: The Federal rules restrict any use of the information to criminally investigate or prosecute any alcohol or drug abuse patient.[facility] CenterIn the event this information is protected by the Federal Confidentiality of Alcohol and Drug Abuse Patient Records regulations: The Federal rules restrict any use of the information to criminally investigate or prosecute any alcohol or drug abuse patient.[facility] CenterIn the event this information is protected by the Federal Confidentiality of Alcohol and Drug Abuse Patient Records regulations: The Federal rules restrict any use of the information to criminally investigate or prosecute any alcohol or drug abuse patient.[facility] CenterIn the event this information is protected by the Federal Confidentiality of Alcohol and Drug Abuse Patient Records regulations: The Federal rules restrict any use of the information to criminally investigate or prosecute any alcohol or drug abuse patient.[facility] CenterIn the event this information is protected by the Federal Confidentiality of Alcohol and Drug Abuse Patient Records regulations: The Federal rules restrict any use of the information to criminally investigate or prosecute any alcohol or drug abuse patient.[facility] CenterIn the event this information is protected by the Federal Confidentiality of Alcohol and Drug Abuse Patient Records regulations: The Federal rules restrict any use of the information to criminally investigate or prosecute any alcohol or drug abuse patient.[facility]In the event this information is protected by the Federal Confidentiality of Alcohol and Drug Abuse Patient Records regulations: The Federal rules restrict any use of the information to criminally investigate or prosecute any alcohol or drug abuse patient.[facility] CenterIn the event this information is protected by the Federal Confidentiality of Alcohol and Drug Abuse Patient Records regulations: The Federal rules restrict any use of the information to criminally investigate or prosecute any alcohol or drug abuse patient.[facility]In the event this information is protected by the Federal Confidentiality of Alcohol and Drug Abuse Patient Records regulations: The Federal rules restrict any use of the information to criminally investigate or prosecute any alcohol or drug abuse patient.[facility]In the event this information is protected by the Federal Confidentiality of Alcohol and Drug Abuse Patient Records regulations: The Federal rules restrict any use of the information to criminally investigate or prosecute any alcohol or drug abuse patient.[facility]In the event this information is protected by the Federal Confidentiality of Alcohol and Drug Abuse Patient Records regulations: The Federal rules restrict any use of the information to criminally investigate or prosecute any alcohol or drug abuse patient.[facility]In the event this information is protected by the Federal Confidentiality of Alcohol and Drug Abuse Patient Records regulations: The Federal rules restrict any use of the information to criminally investigate or prosecute any alcohol or drug abuse patient.[facility]In the event this information is protected by the Federal Confidentiality of Alcohol and Drug Abuse Patient Records regulations: The Federal rules restrict any use of the information to criminally investigate or prosecute any alcohol or drug abuse patient.[facility]In the event this information is protected by the Federal Confidentiality of Alcohol and Drug Abuse Patient Records regulations: The Federal rules restrict any use of the information to criminally investigate or prosecute any alcohol or drug abuse patient.[facility]In the event this information is protected by the Federal Confidentiality of Alcohol and Drug Abuse Patient Records regulations: The Federal rules restrict any use of the information to criminally investigate or prosecute any alcohol or drug abuse patient.[facility]In the event this information is protected by the Federal Confidentiality of Alcohol and Drug Abuse Patient Records regulations: The Federal rules restrict any use of the information to criminally investigate or prosecute any alcohol or drug abuse patient.[facility]In the event this information is protected by the Federal Confidentiality of Alcohol and Drug Abuse Patient Records regulations: The Federal rules restrict any use of the information to criminally investigate or prosecute any alcohol or drug abuse patient.[facility]In the event this information is protected by the Federal Confidentiality of Alcohol and Drug Abuse Patient Records regulations: The Federal rules restrict any use of the information to criminally investigate or prosecute any alcohol or drug abuse patient.[facility]In the event this information is protected by the Federal Confidentiality of Alcohol and Drug Abuse Patient Records regulations: The Federal rules restrict any use of the information to criminally investigate or prosecute any alcohol or drug abuse patient.[facility]In the event this information is protected by the Federal Confidentiality of Alcohol and Drug Abuse Patient Records regulations: The Federal rules restrict any use of the information to criminally investigate or prosecute any alcohol or drug abuse patient.[facility]In the event this information is protected by the Federal Confidentiality of Alcohol and Drug Abuse Patient Records regulations: The Federal rules restrict any use of the information to criminally investigate or prosecute any alcohol or drug abuse patient.[facility]In the event this information is protected by the Federal Confidentiality of Alcohol and Drug Abuse Patient Records regulations: The Federal rules restrict any use of the information to criminally investigate or prosecute any alcohol or drug abuse patient.[facility]In the event this information is protected by the Federal Confidentiality of Alcohol and Drug Abuse Patient Records regulations: The Federal rules restrict any use of the information to criminally investigate or prosecute any alcohol or drug abuse patient.[facility]In the event this information is protected by the Federal Confidentiality of Alcohol and Drug Abuse Patient Records regulations: The Federal rules restrict any use of the information to criminally investigate or prosecute any alcohol or drug abuse patient.[facility]In the event this information is protected by the Federal Confidentiality of Alcohol and Drug Abuse Patient Records regulations: The Federal rules restrict any use of the information to criminally investigate or prosecute any alcohol or drug abuse patient.[facility]In the event this information is protected by the Federal Confidentiality of Alcohol and Drug Abuse Patient Records regulations: The Federal rules restrict any use of the information to criminally investigate or prosecute any alcohol or drug abuse patient.[facility]In the event this information is protected by the Federal Confidentiality of Alcohol and Drug Abuse Patient Records regulations: The Federal rules restrict any use of the information to criminally investigate or prosecute any alcohol or drug abuse patient.[facility] CenterIn the event this information is protected by the Federal Confidentiality of Alcohol and Drug Abuse Patient Records regulations: The Federal rules restrict any use of the information to criminally investigate or prosecute any alcohol or drug abuse patient.[facility] Inactive Administered Medications - up to 3 most recent administrations Administered Medications (un recognized section and content) Medication Order MAR Action Action Date Dose Rate Site bortezomib 2.98 mg in NaCl 0.9% (VELCADE) 2.98 mg (rounded from 2.964 mg = 1.3 mg/m2 2.28 m2 Treatment Plan BSA from Recorded weight), SUBCUTANEOUS, ONCE, 1 dose, On Sat08/21/23 at 1130, - EXP:1930 - DO NOT SHAKE - Hazardous Chemotherapy Drug: Use appropriate PPE. FATAL IF GIVEN INTRATHECALLY. Given 08/21/2023 11:58 AM EST 2.98 mg Abdomen, LLQ dexAMETHasone 12 mg tab(s) (DECADRON) 12 mg, ORAL, ONCE, 1 dose, On Sat08/21/23 at 1130 Given 08/21/2023 11:30 AM EST 12 mg Inactive Administered Medications - up to 3 most recent administrations Medication Order MAR Action Action Date Dose Rate Site bortezomib 2.98 mg in NaCl 0.9% (VELCADE) 2.98 mg (rounded from 2.964 mg = 1.3 mg/m2 2.28 m2 Treatment Plan BSA from Recorded weight), SUBCUTANEOUS, ONCE, 1 dose, On Sat08/28/23 at 1500, - EXP: 08/28/2023 2310 RT - DO NOT SHAKE - Hazardous Chemotherapy Drug: Use appropriate PPE. FATAL IF GIVEN INTRATHECALLY. Given 08/28/2023 3:31 PM EST 2.98 mg Abdomen, RLQ dexAMETHasone 4 mg tab(s) (DECADRON) 4 mg, ORAL, ONCE, 1 dose, On Sat08/28/23 at 1500 Given 08/28/2023 3:09 PM EST 4 mg Inactive Administered Medications - up to 3 most recent administrations Medication Order MAR Action Action Date Dose Rate Site bortezomib 2.98 mg in NaCl 0.9% (VELCADE) 2.98 mg (rounded from 2.964 mg = 1.3 mg/m2 2.28 m2 Treatment Plan BSA from Recorded weight), SUBCUTANEOUS, ONCE, 1 dose, On Sat09/06/23 at 1130, - EXP: 09/06/2023 1915 RT - DO NOT SHAKE - Hazardous Chemotherapy Drug: Use appropriate PPE. FATAL IF GIVEN INTRATHECALLY. Given 09/06/2023 11:35 AM EST 2.98 mg Arm, Left dexAMETHasone 4 mg tab(s) (DECADRON) 4 mg, ORAL, ONCE, 1 dose, On Sat09/06/23 at 1130 Given 09/06/2023 11:26 AM EST 4 mg Inactive Administered Medications - up to 3 most recent administrations Medication Order MAR Action Action Date Dose Rate Site bortezomib 2.98 mg in NaCl 0.9% (VELCADE) 2.98 mg (rounded from 2.964 mg = 1.3 mg/m2 2.28 m2 Treatment Plan BSA from Recorded weight), SUBCUTANEOUS, ONCE, 1 dose, On Sat09/19/23 at 1200, - EXP: 09/23/2023 1145 RT- DO NOT SHAKE - Hazardous Chemotherapy Drug: Use appropriate PPE. FATAL IF GIVEN INTRATHECALLY. Given 09/19/2023 12:30 PM EDT 2.98 mg Abdomen, LLQ dexAMETHasone 4 mg tab(s) (DECADRON) 4 mg, ORAL, ONCE, 1 dose, On Sat09/19/23 at 1200 Given 09/19/2023 11:43 AM EDT 4 mg Goals (unrecognized section and content) Goals may be documented in a n alternate section FOR RECORDS PERTAINING TO PATIENTS WHO ARE OR HAVE BEEN ENROLLED IN A CHEMICAL DEPENDENCY/SUBSTANCEABUSE PROGRAM, SOME INFORMATION MAY BE OMITTED. This clinical summary was aggregated from multiple sources. Caution should be exercised in using it in the provision of clinical care. This summary normalizes information from multiple sources, and as a consequence, information in this document may materially change the coding, format and clinical context of patient data. In addition, data may be omitted in some cases. CLINICAL DECISIONS SHOULD BE BASED ON THE PRIMARY CLINICAL RECORDS. [facility]. provides no warranty or guarantee of the accuracy or completeness of information in this document.
[2024-04-11 08:36] LABS: Chol HDL Ratio 2.6; Cholesterol 147 mg/dL (<=200); HDL Cholesterol 57 mg/dL (40-60); LDL Cholesterol Calculated 67.8 mg/dL; Triglycerides 111 mg/dL (<=150); VLDL CHOLESTEROL 22.2 mg/dL
== END 2024-04-11 08:07 | disposition home or self-care (01) ==
LOC: LAB 08:11
PROVIDERS: PCP Family Medicine
DX: I25.10 Atherosclerotic heart disease of native coronary artery without angina pectoris (principal)
CPT/HCPCS: 36415; 80061